=== PATIENT | female | born 1960 | race Caucasian/White ===

== ENCOUNTER 2019-04-09 12:19 | Outpatient (CLI) | payer MEDICARE, BC, SELFPAY ==
--- NOTE | ~2019-04-09 | XR_ITS ---
EXAMINATION: XR abdomen/kub 1V DATE: 04/09/2019 12:40 INDICATION: Gross hematuria. TECHNIQUE: A supine view of the abdomen on 2 radiographs was obtained. COMPARISON: CT abdomen and pelvis 04/09/2019 FINDINGS: There are no dilated loops of bowel. The kidneys are obscured by bowel. There is a 6 mm sto ne in right kidney. There is a 3 mm stone in left kidney. There are phleboliths in the pelvis and rig ht ovarian vein. IMPRESSION: 1. Bilateral kidney stones. Reviewed, dictated and finalized at location A. ER TENDER IMPRESSION: 1. Bilateral kidney stones.
--- NOTE | ~2019-04-09 | CT_ITS ---
EXAMINATION: CT abdomen pelvis wo/w con DATE: 04/09/2019 13:19 INDICATION: Gross hematuria. TECHNIQUE: Computed tomography (CT) of the abdomen and pelvis was performed without and with intraven ous contrast using a total of 130 mL Omnipaque-350 intravenous contrast with a double-bolus technique for simultaneous opacification of the renal parenchyma and renal collecting system. Automated exposu re control and iterative reconstruction technique were employed. The dose-length product was 1742.10 mGy-cm. COMPARISON: CT abdomen and pelvis 05/27/2018 FINDINGS: The visualized portions of the lung bases demonstrate mild atelectasis. A calcified right lung nodule is consistent with old granulomatous disease. No pleural effusion. The heart size is normal. No alesia cardial effusion. The liver, gallbladder, spleen, pancreas, and adrenal glands are normal. There are changes of gastric bypass procedure. There is a small sliding hiatal hernia. There are cysts in the k idneys measuring up to 8 mm on the left. There are 7 mm and 4 mm stones in right kidney. There are 3 stones in left kidney measuring up to 5 mm. The ureters are not well opacified distally, but are norm al. The bladder is not well distended. There are no dilated loops of bowel. The appendix is not visua lized. There are no pathologically enlarged lymph nodes. There is no free intraperitoneal fluid. Ther e is moderate lumbar spondylosis. There are bridging endplate osteophytes at multiple levels in the t horacic spine, consistent with diffuse idiopathic skeletal hyperostosis (DISH). IMPRESSION: 1. Bilateral nonobstructing kidney stones. Reviewed, dictated and finalized at location A. SOR TO COMMAND IN COMBAT
[2019-04-09 12:54] LABS: Estimated Glomerular Filt Rate > 60
== END 2019-04-09 12:20 | disposition home or self-care (01) ==
LOC: ANHIMG 12:28
PROVIDERS: PCP Internal Medicine; Visit Provider Urology
DX: R31.0 Gross hematuria (principal); N20.0 Calculus of kidney
CPT/HCPCS: 36415; 74018; 74178; Q9967

== ENCOUNTER 2019-04-22 10:51 | Outpatient (CLI) | payer MEDICARE, BC, SELFPAY ==
--- NOTE | ~2019-04-22 | XR_ITS ---
EXAMINATION: XR abdomen/kub 1V DATE: 04/22/2019 11:13 INDICATION: Right flank pain and hematuria. TECHNIQUE: A supine view of the abdomen on 2 radiographs was obtained. COMPARISON: CT and KUB dated 04/09/2019 FINDINGS: Unchanged phlebolith project along the inferior margin of the right transverse process of L4. Unchang ed pattern of multiple additional phleboliths in the pelvis. There is a new approximately 2 mm densit y in the region of the right ureterovesicular junction projecting between the 2 larger more cephalad and caudal phleboliths suspicious for a distal ureteral stone. Unchanged 6 mm stone projecting over t he upper pole of the right kidney. The previous noted 3 mm stone in the left kidney is unable to be d efinitively identified likely obscured by superimposed mottled pattern of stool and gas in the colon. Suture lines in the epigastric region and more caudal left upper quadrant consistent with likely makenzie or gastric bypass procedure. No dilated loops of gas-filled bowel to suggest obstruction. Lung bases are clear. Moderate lumbar spondylosis. IMPRESSION: 1. 2 mm density projecting the region of the right ureterovesicular junction which could represent a small stone. Specificity is decreased by superimposed stool in the rectum. 2. Unchanged 6 mm stone at the upper pole of the right kidney. Reviewed, dictated and finalized at location A. IMPRESSION: 1. 2 mm density projecting the region of the right ureterovesicular junction wh ich could represent a small stone. Specificity is decreased by superimposed sto ol in the rectum. 2. Unchanged 6 mm stone at the upper pole of the right kidney.
== END 2019-04-22 10:52 | disposition home or self-care (01) ==
LOC: ANHIMG 10:58
PROVIDERS: PCP Internal Medicine; Visit Provider Urology
DX: R10.9 Unspecified abdominal pain (principal); N20.0 Calculus of kidney
CPT/HCPCS: 74018

== ENCOUNTER 2019-04-24 10:41 | Day surgery (SDC) | payer MEDICARE, BC, SELFPAY ==
--- NOTE | ~2019-04-24 | XR_ITS ---
EXAMINATION: XR fluoroscopy no charge INDICATION: Right flank pain TECHNIQUE: A single fluoroscopic image is submitted for review. Fluoroscopy exposure time was 2.8 sec onds. The DAP for this procedure was 0.30196 mGycm2. COMPARISON: None available FINDINGS: Fluoroscopic image demonstrates a guidewire coiling in the right renal pelvis. Please refer to procedure note for full details. IMPRESSION: Please refer to procedure note for full details. Reviewed, dictated and finalized at location A.
[2019-04-24 11:00] VITALS: BP 116/64; PULSE 80; RESP 16; TEMP 36.4; O2SAT 96
--- NOTE | 2019-04-24 11:23 | ECG_ITS ---
Measurements Intervals [place] Rate: 66 P: 48 ID: [id number] QRS: 26 QRSD: 85 T: 50 QT: 385 QTc: 405 Interpretive Statements SINUS RHYTHM BASELINE ARTIFACT- III NORMAL ECG Electronically Signed On 04-24-2019 11:39:19 CDT by Fadi Ramos D.O.
[2019-04-24] MEDS: LACTATED RINGERS 1,000 ML 30 ML IV CONT (11:30)
[2019-04-24 11:40] VITALS: BMI 32.8
--- NOTE | 2019-04-24 11:48 | WPDANESEPPF ---
Anes - Initial Pre Proc Eval Procedure: Operation Date: 04/24/19 15:30 Proposed Procedures p Cystoscopy, Right Ureteroscopy, Right Retrograde Pyelogram, Right Stone Extraction, Possible Right Stent Placement - Pj Sepulveda MD s Possible Holmium Laser Procedure - Pj Sepulveda MD Date/Time: 04/24/19 11:48 Surgeon: Pj Sepulveda MD Pre Op Diagnosis: Right UVJ Stone Patient Data Age: 59 Gender: F Height: 5 ft 4 in Weight: 86.7 kg Last Vital Signs Temp 36.4 C L 04/24/19 11:00 Pulse 80 04/24/19 11:00 Resp 16 04/24/19 11:00 BP 116/64 04/24/19 11:00 Pulse Ox 96 04/24/19 11:00 Allergies Allergy/AdvReac Type Severity Reaction Status Date / Time codeine Allergy Severe Hives Verified 04/24/19 11:18 levofloxacin [From Levaquin] Allergy Intermediate Hives Verified 04/24/19 11:18 meperidine [From Demerol] Allergy Intermediate Hives Verified 04/24/19 11:18 Home Medications Medication Instructions Recorded Confirmed Type aspirin [Aspir-Low] 81 mg PO WEEKLY 04/24/19 04/24/19 History bupropion HCl 150 mg PO QAM 04/24/19 04/24/19 History folic acid 1 mg PO DAILY 04/24/19 04/24/19 History hydrocodone-acetaminophen 1 tablet PO Q4-6H PRN 04/24/19 04/24/19 History levothyroxine 88 mcg PO DAILY 04/24/19 04/24/19 History losartan 100 mg PO HS 04/24/19 04/24/19 History pdfspkwivkwd-una-czzw-FA-vit K 1 cap PO HS 04/24/19 04/24/19 History [Bariatric Multivitamins] pravastatin 80 mg PO HS 04/24/19 04/24/19 History sertraline 200 mg PO DAILY 04/24/19 04/24/19 History tizanidine 4 mg PO HS 04/24/19 04/24/19 History vitamin E 400 unit PO DAILY 04/24/19 04/24/19 History zolpidem 10 mg PO HS 04/24/19 04/24/19 History Patient hx anesthesia problems: none Family hx anesthesia problems: none PMFSH Past Medical History Medical History (Updated 04/24/19 @ 11:51 by Benny Agee MD) Chronic lung disease Chronic pain syndrome Hyperlipidemia Family History Family History Sibling Family history of rheumatoid arthritis Mother Family history of lung cancer Social History Social History Smoking status: Never smoker Alcohol intake: never Anes - Eval Final PreProcedure Day of Procedure 04/24/19 11:48 Patient weight: obese Heart: regular rate and rhythm Lungs: decreased breath sounds Airway: Mallampati scale class II Neurological: alert and oriented Last oral intake: 4 hours ASA classification: III Emergent: yes Anesthetic plan: proceed Anesthesia type and monitoring: general ETT and standard monitoring Other findings: RSI Informed Consent: The patient's anesthetic plan and its attendant risks and benefits were discussed with the patient/family/POA. Questions were solicited and answers provided to the satisfaction of the patient/family/POA.
[2019-04-24] MEDS: HYDROMORPHONE HCL 1 MG/ML INJ IV PUSH (11:55)
--- NOTE | 2019-04-24 12:57 | SUR.PREOP ---
Resting with lights out. Pain much improved.
--- NOTE | 2019-04-24 13:12 | WPDHPUPDATE1 ---
History and Physical Update Update Date/Time: 04/24/19 13:12 History and Physical has been reviewed, including an updated exam of the patient. There are NO changes in the patient's condition. Risks, benefits, and alternatives have been discussed and questions answered. Patient agrees to proceed with procedure.
[2019-04-24] MEDS: ceFAZolin 2 GM/D5W 50 ML 2 GM/50 ML BAG IVPB (13:25)
[2019-04-24] MEDS: KETOROLAC 30 MG/ML VIAL (*BKC) IV PUSH (13:50)
--- NOTE | 2019-04-24 13:54 | PM.PROC ---
Procedure Note - Detailed Date of procedure: 04/24/19 Pre-op diagnosis: Right UVJ Stone Post-op diagnosis: same Procedure performed: Cystoscopy, right ureteroscopy with stone extraction. Description of procedure: The patient was brought to the operative suite where she is prepped and draped in a routine sterile fashion while in the dorsal lithotomy position after the uneventful induction of a general LMA anesthetic. A 19F rigid cystoscope was placed in the bladder. The patient had no evidence of urethral stricture or bladder neck contracture. The bladder mucosa was endoscopically normal without hyperemia or neoplasm. There was a single, orthotopic ureteral orifice bilaterally. A 0.035 glidewire was advanced into the [] renal pelvis under fluoroscopy. The distal ureter was dilated with an 8F/10F ureteral dilator. Ureteroscopy was undertaken with a short, tapered, semi-rigid ureteroscope and the stone was extracted with ease using a [1.9F Escape disposable stone basket]. Due to the ease of this manipulation I opted not to place a ureteral stent. The patient's bladder was emptied and was taken to the recovery room having tolerated this procedure well. Anesthesia: GLMA Surgeon: Pj Sepulveda MD Estimated blood loss (mL): 0 Drains: No Packing: No Pathology: yes (Right ureteral stone) Complications: No immediate complications Condition: stable Disposition: PACU
[2019-04-24 14:05] VITALS: BP 120/55; PULSE 88; RESP 14; TEMP 36.1; O2SAT 100
[2019-04-24 14:19] VITALS: BP 128/73; PULSE 83; RESP 20; O2SAT 100
[2019-04-24 14:27] VITALS: BP 132/51; PULSE 75; RESP 20
[2019-04-24 14:55] VITALS: BP 117/62; PULSE 68; RESP 16
== END 2019-04-24 15:05 | disposition home or self-care (01) ==
PROVIDERS: PCP Internal Medicine; Visit Provider Urology
PROC: (CPT 52352; principal; 2019-04-24 15:30)
DX: N20.1 Calculus of ureter (principal); E78.5 Hyperlipidemia, unspecified; J98.4 Other disorders of lung; G89.4 Chronic pain syndrome; Z79.82 Long term (current) use of aspirin; E66.9 Obesity, unspecified; Z68.32 Body mass index [BMI] 32.0-32.9, adult; Z79.891 Long term (current) use of opiate analgesic
CPT/HCPCS: 52352; 82365; 88300; 93005; A9270; C1769; J0690; J1100; J1170; J1885; J2250; J2405; J2704; J3010; J7120

== ENCOUNTER 2019-06-06 10:59 | Outpatient (CLI) | payer MEDICARE, BC, SELFPAY ==
--- NOTE | ~2019-06-06 | XR_ITS ---
EXAMINATION: XR abdomen/kub 1V DATE: 06/06/2019 11:37 INDICATION: Flank pain. TECHNIQUE: A supine view of the abdomen on 2 radiographs was obtained. COMPARISON: None. FINDINGS: Unchanged phleboliths projecting over the right transverse process of L4. A few additional small dens ities projecting lateral to the tip of the right transverse process of L5 likely either additional ph leboliths or tiny surgical clips related to prior appendectomy. Multiple additional unchanged phlebol iths in the pelvis. Evaluation for renal stones at the kidneys is limited by superimposed mottled gas and stool in the colon. There are couple 3 mm densities projecting over the region of the right crow l pelvis is equivocal for renal stones. Additional 2 mm and 3 mm stones project over the mid and uppe r pole of the left kidney corresponding to renal stones on prior CT. The 2 mm stone previously seen a t the lower pole of the left kidney is not definitively identified and may be obscured by the superim posed anastomotic suture line. No dilated bowel to suggest obstruction. IMPRESSION: 1. Densities at both kidneys as detailed above likely representing renal stones although sensitivity and specificity are reduced by superimposed mottled pattern of stool in the colon. Reviewed, dictated and finalized at location A. IMPRESSION: 1. Densities at both kidneys as detailed above likely representing renal stones although sensitivity and specificity are reduced by superimposed mottled patte rn of stool in the colon.
== END 2019-06-06 11:00 | disposition home or self-care (01) ==
PROVIDERS: PCP Internal Medicine; Visit Provider Nurse Practitioner Adult Health
DX: R10.9 Unspecified abdominal pain (principal); R93.422 Abnormal radiologic findings on diagnostic imaging of left kidney; R93.421 Abnormal radiologic findings on diagnostic imaging of right kidney
CPT/HCPCS: 74018; 87086; 87088

== ENCOUNTER 2019-06-20 16:28 | Outpatient (CLI) | payer MEDICARE, BC, SELFPAY ==
--- NOTE | ~2019-06-20 | XR_ITS ---
EXAMINATION: XR abdomen/kub 1V INDICATION: Left flank pain, bilateral kidney stones TECHNIQUE: Supine views of the abdomen were obtained on 2 radiographs. COMPARISON: CT from today, 06/06/2019 FINDINGS: A subtle 6 mm calcification projects just above the left L3 transverse process correspondin g to the proximal ureteral stone seen on CT. An 8 mm stone is noted in the right kidney. There are ph leboliths of the pelvis. The lung bases are clear. Changes of gastric bypass are noted. There is mild posterior arthritis. The bowel gas pattern is normal. IMPRESSION: 1. Subtle 6 mm stone projecting just above the left L3 transverse process corresponding to the left u reteral stone identified on CT. Reviewed, dictated and finalized at location A. IMPRESSION: 1. Subtle 6 mm stone projecting just above the left L3 transverse process corre sponding to the left ureteral stone identified on CT.
--- NOTE | ~2019-06-20 | CT_ITS ---
EXAMINATION: CT abdomen pelvis wo con DATE: 06/20/2019 17:11 INDICATION: Hematuria, and history of kidney stones TECHNIQUE: Computed tomography (CT) of the abdomen and pelvis was performed without intravenous contr ast. The dose-length product (DLP) was 260.96 mGy-cm. Automated exposure control and iterative recons truction technique were employed. COMPARISON: 04/09/2019 FINDINGS: The lung bases are clear. The heart size is normal. Changes of gastric bypass are noted. Th e liver, spleen, pancreas, gallbladder, and adrenal glands are normal. There is a 6 mm stone in the l eft proximal ureter which causes mild left hydroureteronephrosis. Nonobstructing stones of the kidney s measure up to 8 mm on the right and 4 mm on the left. No pathologically enlarged abdominal or pelvi c lymph nodes are identified. There is no free intraperitoneal gas or evidence of bowel obstruction. There is moderate lumbar spondylosis. IMPRESSION: 1. 6 mm stone in the left proximal ureter causing mild left hydroureteronephrosis. 2. Bilateral nonobstructing nephrolithiasis. Reviewed, dictated and finalized at location A. IMPRESSION: 1. 6 mm stone in the left proximal ureter causing mild left hydroureteronephros is. 2. Bilateral nonobstructing nephrolithiasis.
== END 2019-06-20 16:29 | disposition home or self-care (01) ==
PROVIDERS: PCP Internal Medicine; Visit Provider Urology
DX: N13.2 Hydronephrosis with renal and ureteral calculous obstruction (principal)
CPT/HCPCS: 74018; 74176

== ENCOUNTER 2019-07-08 10:27 | Outpatient (CLI) | payer MEDICARE, BC, SELFPAY ==
--- NOTE | ~2019-07-08 | XR_ITS ---
XR abdomen/kub 1V 07/08/2019 10:48 Indication: Bilateral kidney stones Procedure: KUB Comparison: Comparison to multiple prior studies sequentially, with oldest reviewed study dated 05/2019. Findings: There are bilateral renal stones. There are surgical changes in the left upper abdomen cons istent with gastric bypass surgery. There are pelvic phleboliths. There are injection granulomas over lying the right gluteal region. Bowel gas pattern is nonobstructive. No acute osseous abnormality. Impression: 1: Bilateral nephrolithiasis. Reviewed, dictated and finalized at location A. Impression: 1: Bilateral nephrolithiasis.
== END 2019-07-08 10:28 | disposition home or self-care (01) ==
PROVIDERS: PCP Internal Medicine; Visit Provider Urology
DX: N20.0 Calculus of kidney (principal)
CPT/HCPCS: 74018

== ENCOUNTER 2019-12-30 14:00 | Outpatient (CLI) | payer MEDICARE, BC, SELFPAY ==
--- NOTE | ~2019-12-30 | XR_ITS ---
XR abdomen/kub 1V 12/30/2019 14:26 Indication: Right flank pain Procedure: KUB Comparison: CT dated 12/30/2019 Findings: Bowel gas pattern is nonobstructive. There are right renal stones. There are surgical moulton es in the left mid abdomen. Bowel content and postsurgical changes obscure the left kidney limiting e valuation for left renal stones. There is a stable right-sided abdominal phlebolith at the L4 level. There are pelvic phleboliths. Bowel pattern nonobstructive with moderate colonic fecal loading. Impression: 1: Right nephrolithiasis. Reviewed, dictated and finalized at location A. DOZER ENGINEER Impression: 1: Right nephrolithiasis.
--- NOTE | ~2019-12-30 | CT_ITS ---
EXAMINATION: CT abdomen pelvis wo con DATE: 12/30/2019 14:29 INDICATION: Right flank pain. TECHNIQUE: Computed tomography (CT) of the abdomen and pelvis was performed without intravenous contr ast. Automated exposure control and iterative reconstruction technique were employed. The dose-length product was 222.35 mGy-cm. COMPARISON: CT abdomen and pelvis 06/20/2019 FINDINGS: The visualized portions of the lung bases demonstrate minimal atelectasis. No pleural effus ion. The heart size is normal. No pericardial effusion. There are surgical changes of the stomach. Th e liver, gallbladder, spleen, pancreas, and adrenal glands are normal. There are 5 stones in right ki dney measuring up to 8 mm. There are 3 stones in left kidney measuring up to 6 mm. There are phleboli ths in right ovarian vein. There are no dilated loops of bowel. There are likely changes of appendect luba. There are no pathologically enlarged lymph nodes. There is no free intraperitoneal fluid. There is moderate lumbar spondylosis. IMPRESSION: 1. Bilateral nonobstructing kidney stones. Reviewed, dictated and finalized at location A. DDED SYSTEMS DEVELOPER
== END 2019-12-30 14:01 | disposition home or self-care (01) ==
PROVIDERS: PCP Internal Medicine; Visit Provider Nurse Practitioner Adult Health
DX: R10.9 Unspecified abdominal pain (principal); N20.0 Calculus of kidney; M47.816 Spondylosis without myelopathy or radiculopathy, lumbar region
CPT/HCPCS: 74018; 74176

== ENCOUNTER 2020-01-06 01:57 | Outpatient (CLI) | payer MEDICARE, BC, SELFPAY ==
[2020-01-06 19:16] LABS: SARS-CoV-2 RNA PCR Negative
== END 2020-01-06 01:58 | disposition home or self-care (01) ==
LOC: ANHCOVIDDT 01:58
PROVIDERS: PCP Internal Medicine; Visit Provider Urology
DX: Z01.812 Encounter for preprocedural laboratory examination (principal); Z20.828 Contact with and (suspected) exposure to other viral communicable diseases
CPT/HCPCS: 87635; C9803; U0003

== ENCOUNTER 2020-01-06 09:39 | Outpatient (CLI) | payer MEDICARE, BC, SELFPAY ==
[2020-01-06 10:21] LABS: INR 0.9; Prothrombin Time 12.7 Seconds (11.1-14.7)
[2020-01-06 10:22] LABS: Partial Thromboplastin Time 25.4 SECONDS (22.3-36.8)
== END 2020-01-06 09:40 | disposition home or self-care (01) ==
PROVIDERS: PCP Internal Medicine; Visit Provider Urology
DX: Z01.812 Encounter for preprocedural laboratory examination (principal); N20.0 Calculus of kidney; Z51.81 Encounter for therapeutic drug level monitoring; Z79.899 Other long term (current) drug therapy
CPT/HCPCS: 36415; 85610; 85730; 87086; 87635; C9803; U0003

== ENCOUNTER 2020-01-09 01:24 | Day surgery (SDC) | payer MEDICARE, BC, SELFPAY ==
[2020-01-06 08:56] VITALS: BMI 29.9
[2020-01-09] VITALS (8 sets, daily range): BP systolic 124–159; BP diastolic 52–97; PULSE 62–66; RESP 10–20; TEMP 36.3–36.8; O2SAT 96–100
--- NOTE | ~2020-01-09 | XR_ITS ---
XR abdomen/kub 1V 01/09/2020 08:05 Indication: Preop lithotripsy Procedure: KUB Comparison: Comparison to multiple prior studies sequentially, with oldest reviewed study dated 02/2019. Findings: There are bilateral renal stones. There are pelvic phleboliths which are unchanged. Moderat e lumbar spondylosis. No acute osseous abnormality. The bowel gas pattern is nonobstructive. There ar e calcifications in the right abdomen corresponding to phleboliths in the right ovarian vein seen on prior CT. Impression: 1: Bilateral nephrolithiasis. Reviewed, dictated and finalized at location B. ERY/ORDNANCE OFFICER Impression: 1: Bilateral nephrolithiasis.
--- NOTE | 2020-01-09 06:38 | WPDHPUPDATE1 ---
History and Physical Update Update Date/Time: 01/09/20 06:38 History and Physical has been reviewed, including an updated exam of the patient. There are NO changes in the patient's condition. Risks, benefits, and alternatives have been discussed and questions answered. Patient agrees to proceed with procedure.
[2020-01-09] MEDS: LACTATED RINGERS 1,000 ML 30 ML IV CONT (09:30)
--- NOTE | 2020-01-09 09:42 | P.PNAN_ITS ---
Anes - Initial Pre Proc Eval Procedure: Operation Date: 01/09/20 10:00 Proposed Procedures p Right Renal Extracorporeal Shock Wave Lithotripsy - Pj Sepulveda MD Date/Time: 01/09/20 09:42 Surgeon: Pj Sepulveda MD Pre Op Diagnosis: Right Renal Kidney Stone Patient Data Age: 59 Gender: F Height: 5 ft 4 in Weight: 82.1 kg Last Vital Signs Temp 36.3 C L 01/09/20 09:17 Pulse 64 01/09/20 09:17 Resp 20 01/09/20 09:17 BP 127/52 L 01/09/20 09:17 Pulse Ox 96 01/09/20 09:17 Allergies Allergy/AdvReac Type Severity Reaction Status Date / Time meperidine [From Demerol] Allergy Severe Hives Verified 01/09/20 09:11 levofloxacin [From Levaquin] AdvReac Intermediate INFLAMED Verified 01/09/20 09:11 TENDONS Home Medications Medication Instructions Recorded Confirmed Type Bariatric Multivitamins 1 cap PO HS 04/24/19 01/09/20 History aspirin [Aspir-Low] 81 mg PO WEEKLY 04/24/19 01/09/20 History bupropion HCl 150 mg PO BID 04/24/19 01/09/20 History folic acid 1 mg PO DAILY 04/24/19 01/09/20 History hydrocodone-acetaminophen 1 tablet PO Q4-6H PRN 04/24/19 01/09/20 History levothyroxine 88 mcg PO QAM 04/24/19 01/09/20 History pravastatin 80 mg PO HS 04/24/19 01/09/20 History sertraline 200 mg PO QAM 04/24/19 01/09/20 History tizanidine 4 mg PO HS 04/24/19 01/09/20 History vitamin E 400 unit PO DAILY 04/24/19 01/09/20 History zolpidem 10 mg PO HS 04/24/19 01/09/20 History Ventolin HFA 2 puff INHALATION Q4-6H PRN 01/06/20 01/09/20 History omeprazole 20 mg PO HS 01/06/20 01/09/20 History Patient hx anesthesia problems: none Family hx anesthesia problems: none PMFSH Past Medical History Medical History Anxiety Asthma Chronic lung disease Chronic pain syndrome CVA (cerebral vascular accident) Fibromyalgia Hyperlipidemia Hypothyroid Family History Family History Sibling Family history of rheumatoid arthritis Mother Family history of lung cancer Social History Social History Smoking status: Former smoker Alcohol intake: never Substance use: never Living arrangements: with family Additional living arrangements comments: Spiritual care concerns: No Anes - Eval Final PreProcedure Day of Procedure 01/09/20 09:42 Patient weight: obese Heart: regular rate and rhythm Lungs: clear to auscultation Airway: Mallampati scale class II, special considerations and other (temp bridg e) Neurological: alert and oriented Last oral intake: >/= 8 hours ASA classification: III Emergent: no Anesthetic plan: proceed Anesthesia type and monitoring: general LMA and standard monitoring Informed Consent: The patient's anesthetic plan and its attendant risks and benefits were discussed with the patient/family/POA. Questions were solicited and answers provided to the satisfaction of the patient/family/POA.
[2020-01-09] MEDS: ceFAZolin 2 GM/D5W 50 ML 2 GM/50 ML BAG IVPB (09:47)
--- NOTE | 2020-01-09 10:01 | PM.PROC ---
Procedure Note - Detailed Date of procedure: 01/09/20 Pre-op diagnosis: Right Renal Kidney Stone Post-op diagnosis: same Procedure performed: Right ESWL Description of procedure: The patient was brought to the operative suite where she was placed in the supine position on the Dornier lithotripsy table. The focal point of the lithotripter was placed at a 8mm right renal calculus. A total of 2500 shocks were delivered at a power setting of 4. There appeared to be good fragmentation of the stone. The patient tolerated the procedure well and was taken to the recovery room in good condition. Anesthesia: GLMA Surgeon: Pj Sepulveda MD Estimated blood loss (mL): 0 Drains: No Packing: No Pathology: none sent Complications: No immediate complications Condition: stable Disposition: PACU
[2020-01-09] MEDS: ONDANSETRON INJ 4 MG/2 ML VIAL IV PUSH (10:52)
[2020-01-09] MEDS: HYDROmorphone HCL INJ (*CRX) 1 MG/ML SYR 0.5 MG IV PUSH ×2 (11:00→11:08)
== END 2020-01-09 12:17 | disposition home or self-care (01) ==
PROVIDERS: PCP Internal Medicine; Visit Provider Urology
PROC: (CPT 50590; principal; 2020-01-09 10:00)
DX: N20.0 Calculus of kidney (principal); E78.5 Hyperlipidemia, unspecified; E03.9 Hypothyroidism, unspecified; J45.909 Unspecified asthma, uncomplicated; F41.9 Anxiety disorder, unspecified; M79.7 Fibromyalgia; G89.4 Chronic pain syndrome; E66.9 Obesity, unspecified; Z68.31 Body mass index [BMI] 31.0-31.9, adult
CPT/HCPCS: 50590; 74018; J0690; J1100; J1170; J2250; J2405; J2704; J7120

== ENCOUNTER 2020-01-23 13:05 | Outpatient (CLI) | payer MEDICARE, BC, SELFPAY ==
--- NOTE | ~2020-01-23 | XR_ITS ---
XR abdomen/kub 1V 01/23/2020 13:28 INDICATION: Right flank pain TECHNIQUE: KUB COMPARISON: 07/08/2019 FINDINGS: Bowel gas pattern is normal. There is no evidence of free air, mass, organomegaly, ascites or obstruction. No abnormal calculi are seen. There are surgical changes in the left abdomen. The b ones appear intact. There is mild lumbar spondylosis. There are pelvic phleboliths. Kidneys are obscu red by bowel gas/contents limiting evaluation for renal stones. IMPRESSION: 1: No acute abdominal abnormality identified. Reviewed, dictated and finalized at location A. EF PILOT
== END 2020-01-23 13:06 | disposition home or self-care (01) ==
PROVIDERS: PCP Internal Medicine; Visit Provider Nurse Practitioner Adult Health
DX: R10.9 Unspecified abdominal pain (principal)
CPT/HCPCS: 74018

== ENCOUNTER 2020-06-18 14:57 | Outpatient (CLI) | payer MEDICARE, BC, SELFPAY ==
--- NOTE | ~2020-06-18 | XR_ITS ---
EXAMINATION: XR abdomen/kub 1V DATE: 06/18/2020 15:20 INDICATION: Right flank pain. TECHNIQUE: A supine view of the abdomen on 2 radiographs was obtained. COMPARISON: CT abdomen and pelvis 06/18/2020 FINDINGS: The kidneys are obscured by bowel. There are phleboliths in the pelvis and right ovarian ve in. There are multiple stones in right kidney measuring up to 3 mm. There is a 4 mm stone in left kid serge lower pole. There is a 10 mm stone in left renal pelvis. IMPRESSION: 1. Stones in the kidneys and left renal pelvis. Reviewed, dictated and finalized at location B.
--- NOTE | ~2020-06-18 | CT_ITS ---
EXAMINATION: CT abdomen pelvis wo con DATE: 06/18/2020 15:25 INDICATION: Right flank pain for 2 weeks. Nausea and vomiting, hematuria. TECHNIQUE: Computed tomography (CT) of the abdomen and pelvis was performed without intravenous contr ast. Automated exposure control and iterative reconstruction technique were employed. Exam dose: 240 .42 mGy-cm total exam DLP. COMPARISON: 12/30/2019 CT abdomen pelvis FINDINGS: The lung bases are clear of infiltrate or consolidation. Normal heart size. No pericardial or pleural effusion. Small sliding hiatal hernia. Status post gastric bypass surgery. No hepatic, splenic, pancreatic, and adrenal or renal space-occupying mass lesion is evident on this limited noncontrast examination. At least 7 nonobstructing right and 2 left nonobstructing renal calculi are noted. The right renal ca lculi measuring up to at least 5.7 mm maximal dimension, up to 8 mm on the left. Additionally, there is a left renal pelvic calculus measuring at least 5 x 7.5 x 10.5 mm dimension, w ith attenuation of 939 Hounsfield units. No ureteral calculus or hydroureteronephrosis is evident on either side. Normal caliber of the abdominal aorta. The urinary bladder is unremarkable. Status post hysterectomy. No bowel obstruction, bowel wall thickening, pneumatosis or intraperitoneal free air is detected. Mil d colonic diverticulosis; no CT evidence of diverticulitis. Diffuse idiopathic skeletal hyperostosis of the thoracic spine. Degenerative changes of the lumbar sp ine. No suspicious osteolytic or osteoblastic lesions are noted. IMPRESSION: Up to 10.5 mm left renal pelvic calculus Bilateral nonobstructive nephrolithiasis Small sliding hiatal hernia Status post gastric bypass surgery Mild colonic diverticulosis Status post hysterectomy Reviewed, dictated and finalized at Location A. Reviewed, dictated and finalized at location A.
== END 2020-06-18 14:58 | disposition home or self-care (01) ==
LOC: ANHIMG 15:01
PROVIDERS: PCP Internal Medicine; Visit Provider Urology
DX: R10.9 Unspecified abdominal pain (principal); N20.0 Calculus of kidney; K44.9 Diaphragmatic hernia without obstruction or gangrene; K57.30 Diverticulosis of large intestine without perforation or abscess without bleeding
CPT/HCPCS: 74018; 74176

== ENCOUNTER 2020-06-29 21:20 | Observation (INO) | payer MEDICARE, BC, SELFPAY ==
--- NOTE | ~2020-06-29 | CT_ITS ---
EXAMINATION: CT abdomen pelvis wo con DATE: 06/29/2020 22:51 INDICATION: Left flank pain TECHNIQUE: Computed tomography (CT) of the abdomen and pelvis was performed without intravenous contr ast. The dose-length product was 349.16 mGy-cm. Automated exposure control and iterative reconstructi on technique were employed. COMPARISON: CT dated 06/18/2020 FINDINGS: lung bases are unremarkable. Heart size normal. No pleural or pericardial effusion. Surgica l changes of gastric bypass surgery are present. There are additional surgical anastomotic changes in the left mid abdomen. There is a relatively linear structure in the anterior abdominal wall measurin g 2.2 x 0.7 cm,? Foreign body, image 99. Nonobstructive bowel gas pattern. 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 No definite ureteral stones are identified . The bladder is decompressed. There are multiple bilateral renal stones. There is a proximal left re nal stone/sr measuring 7 mm. Mild hydronephrosis. Moderate lumbar spondylosis. Gallbladder is moderat oumou distended. No significant pericholecystic infiltration. The liver, spleen, pancreas, adrenal glands are unremarkable. IMPRESSION: 1. Proximal left ureteral stone/s measuring 7 mm with mild hydronephrosis. 2: Bilateral nephrolithiasis. Reviewed, dictated and finalized at location A.
--- NOTE | ~2020-06-29 | XR_ITS ---
XR abdomen/kub 1V 06/29/2020 22:55 Indication: Left flank pain Procedure: KUB Comparison: CT dated 06/29/2020 Findings: Proximal left ureteral stone is identified at the L3 level. There are extensive surgical ch anges of the abdomen. Nonobstructive bowel gas pattern. Moderate colonic fecal loading. Moderate lumb ar spondylosis. No acute osseous abnormality. Multiple right renal stones are identified. Left renal stones are obscured by bowel content. Impression: 1: Proximal left ureteral stone at the L3 level. 2: Right nephrolithiasis. Reviewed, dictated and finalized at location A. Impression: 1: Proximal left ureteral stone at the L3 level. 2: Right nephrolithiasis.
--- NOTE | ~2020-06-29 | XR_ITS ---
EXAMINATION: XR retrograde pyelo w/stent LT DATE: 06/30/2020 10:44 INDICATION: Left ureteral stone with hydronephrosis for ureteral stent placement TECHNIQUE: 6 fluoroscopic images of the abdomen and pelvis were obtained during procedure performed vera Pulido. Radiologist was not present for the imaging or procedure. The amount of fluoroscopy t mi used during this procedure was 0.7 minutes. COMPARISON: CT and KUB dated 06/29/2020 FINDINGS: The proximal left ureteral stone can be seen in the supervisor cook room images. Several phleboliths in the pelvis. Subsequent images demonstrate a catheter advanced into the left ureter and retrograde contrast passed location of the left renal collecting system demonstrating mild left hydronephrosis. Subsequent imag es demonstrate placement of a left internal ureteral stent with loops formed over the left renal pelv is and bladder. On the final image the proximal left ureteral stone appears to remain along side the catheter in the proximal left ureter superimposed over the tip of the left transverse process of L2. IMPRESSION: 1. Stone in the proximal left ureter with mild left hydronephrosis. 2. Left internal ureteral stent placement in expected position. Reviewed, dictated and finalized at location A.
[2020-06-29 21:29] VITALS: BP 154/76; PULSE 99; RESP 16; TEMP 37.1; O2SAT 99
--- NOTE | 2020-06-29 22:46 | ED.ABDPAIN ---
HPI - Abdominal Pain General Chief Complaint: Abdominal Pain Stated Complaint: i have a kidney stone Time Seen by Provider: 06/29/20 22:26 Source: patient, RN notes reviewed and old records reviewed Mode of arrival: ambulatory Limitations: no limitations History of Present Illness HPI narrative: This is a 60 year old female with history of kidney stones who presents for evaluation of left flank pain. She states 2 weeks ago she developed hematuria, and she was evaluated by her urologist, Dr. Sepulveda. He ordered a CT abdomen/Pelvis which showed bilateral kidney stones, and she had a large left renal stone at that time. She is scheduled for a lithotripsy on July 09. She has come to ER today because she developed left flank 3 hours ago with nausea . She also reports urethral pain and left lower abdominal pressure. She denies fever or chills. She states she was given antibiotics 2 weeks ago but she finished taking them. She also states she was told that her last urine test had no infection. Her pain is 8/10. She took hydrocodone at onset of her pain. Related Data Home Medications Medication Instructions Recorded Confirmed Bariatric Multivitamins 1 cap PO HS 04/24/19 06/24/20 aspirin [Aspir-Low] 81 mg PO WEEKLY 04/24/19 06/24/20 bupropion HCl 150 mg PO BID 04/24/19 06/24/20 hydrocodone-acetaminophen 1 tablet PO Q4-6H PRN 04/24/19 06/24/20 levothyroxine 88 mcg PO QAM 04/24/19 06/24/20 pravastatin 80 mg PO HS 04/24/19 06/24/20 sertraline 100 mg PO BID 04/24/19 06/24/20 tizanidine 4 mg PO HS 04/24/19 06/24/20 zolpidem 10 mg PO HS 04/24/19 06/24/20 Ventolin HFA 2 puff INHALATION Q4-6H PRN 01/06/20 06/24/20 omeprazole 20 mg PO HS 01/06/20 06/24/20 Allergies Allergy/AdvReac Type Severity Reaction Status Date / Time meperidine [From Demerol] Allergy Severe Hives Verified 06/24/20 13:58 levofloxacin [From Levaquin] AdvReac Intermediate INFLAMED Verified 06/24/20 13:58 TENDONS adhesive tape AdvReac Blister Verified 06/24/20 13:58 codeine AdvReac Hives Verified 06/24/20 14:00 gabapentin AdvReac CAUSED Verified 06/24/20 14:00 HAIR TO FALL OUT pregabalin [From Lyrica] AdvReac Swelling - Verified 06/24/20 14:00 HANDS & FEET Review of Systems Review of Systems: All systems reviewed & are unremarkable except as noted in HPI and below PMFSH Past Medical History Medical History (Updated 06/30/20 @ 00:17 by Lauren Cha MD) Anxiety Asthma Chronic lung disease Chronic pain syndrome CVA (cerebral vascular accident) Fibromyalgia Hyperlipidemia Hypothyroid Kidney stones Surgical History Surgical History (Updated 06/29/20 @ 22:53 by Lauren Cha MD) H/O lithotripsy Family History Family History Sibling Family history of rheumatoid arthritis Mother Family history of lung cancer Social History Social History Smoking status: Never smoker Second hand tobacco smoke exposure: No Alcohol intake: never Substance use: never Substance use type: does not use Additional living arrangements comments: Spiritual care concerns: No Exam Const: General: no acute distress and alert Orientation/consciousness: patient oriented x3 Eyes: EOM: EOMs intact bilaterally Resp: Effort & Inspection: normal respiratory effort and no retractions Auscultation: clear to auscultation bilaterally GI: GI Palp: Yes Soft to palpation, No Tenderness to palpation present (GI) and No Guarding due to palpation present (GI) Auscultation: normal bowel sounds : General: Yes CVA tenderness on the left Skin: General skin exam: normal color Rashes: no rashes Neuro: General: patient oriented x3, moves all extremities and CN's II-XI intact bilaterally Gait exam (Neuro): Normal gait present Psych: Mental Status: mental status grossly normal Affect: normal affect
--- NOTE | 2020-06-29 22:53 | PC.NURSE ---
Pt in imaging at this time.
--- NOTE | 2020-06-29 23:09 | PC.NURSE ---
2 IV start attempts unsuccessful, another RN to attempt.
[2020-06-29 23:10] VITALS: BP 161/71; PULSE 70; RESP 14; O2SAT 97
--- NOTE | 2020-06-29 23:23 | PC.NURSE ---
assumed care of pt at this time. Report from Ashlee RN
[2020-06-29 23:24] LABS: Add Urine Microscopic? YES; Appearance Urine Cloudy (Clear); Bilirubin Urine Negative (Negative); Blood Urine 3+ (Negative); Calcium Oxalate Crystals Urine Many /hpf; Color Urine Red (Yellow); Glucose Urine UA Negative (Negative); Ketones Urine Negative (Negative); Leukocyte Esterase Ur Negative LEU/UL (Negative); Nitrate Urine Negative (Negative); Protein Urine 2+ mg/dL (Negative); RBC Urine >75 /hpf (0-2); Specific Grav Ur 1.024 (1.001-1.035); Squamous Epithelial Cell Urine Occasional /hpf (Few); Urobilinogen Urine Negative mg/dL (<2.0)
--- NOTE | 2020-06-29 23:24 | PC.NURSE ---
assumed care of pt. Report from Summer RN
[2020-06-29 23:39] LABS: Basophils Percent Auto 0.2 % (0.2-1.2); Eosinophils Percent Auto 0.3 % (0-4.4); Hematocrit 38.8 % (37.0-47.0); Hemoglobin 13.2 g/dL (12.0-15.0); Immature Granulocyte Absolute 0.03 K/mm3 (0.00-0.031); Immature Granulocyte Percent A 0.3 % (0-0.5); Lymphocytes Absolute Auto 0.92 K/mm3 (0.9-3.2); Lymphocytes Percent Auto 10.5 % (18.3-44.2); Mean Corpuscular Hemoglobin 35.2 pg (26-34); Mean Corpuscular Volume 103.5 fl (80-100); Mean Platelet Volume 9.6 fl (7.4-10.4); Monocytes Absolute Auto 0.5 K/mm3 (0.1-0.6); Monocytes Percent Auto 5.1 % (2.6-8.5); Neutrophils Absolute Auto 7.3 K/mm3 (1.3-6.7); Neutrophils Percent Auto 83.6 % (45.5-73.1); Platelet Count Result 147 k/mm3 (150-375); Red Blood Count 3.75 M/mm3 (4.2-5.4); Red Cell Distribution Width 11.3 % (11.5-14.5); White Blood Count 8.8 K/mm3 (4.5-10.0)
[2020-06-29] MEDS: ONDANSETRON INJ 4 MG/2 ML VIAL IV PUSH (23:44)
[2020-06-29] MEDS: HYDROmorphone HCL INJ (*CRX) 1 MG/ML SYR 0.5 MG IV PUSH (23:45)
[2020-06-29 23:48] VITALS: BP 152/67; PULSE 73; RESP 13; O2SAT 96
[2020-06-29 23:53] LABS: Alanine Aminotransferase 62 U/L (4-35); Albumin Level 4.2 g/dL (3.5-5.1); Alkaline Phosphatase 143 U/L (38-126); Anion Gap 6 mmol/L (8-16); Aspartate Amino Transferase 60 U/L (14-36); Bilirubin,Total 0.4 mg/dL (0.2-1.3); Blood Urea Nitrogen 25 mg/dL (7-17); Calcium 9.5 mg/dL (8.4-10.2); Carbon Dioxide 29 mmol/L (22-30); Chloride 106 mmol/L (98-107); Estimated CRCL calculation 74 ml/min; Estimated Glomerular Filt Rate > 60; Glucose 122 mg/dL (65-105); Lipase 97 U/L (23-300); Potassium 4.1 mmol/L (3.4-5.0); Sodium 141 mmol/L (137-145)
[2020-06-30] VITALS (11 sets, daily range): BP systolic 132–161; BP diastolic 60–78; PULSE 57–72; RESP 11–20; TEMP 36.2–37; O2SAT 94–100; BMI 29.8
[2020-06-30 00:38] LABS: INR 0.9; Prothrombin Time 12.8 Seconds (11.1-14.7)
[2020-06-30 00:39] LABS: Partial Thromboplastin Time 25.8 SECONDS (22.3-36.8)
[2020-06-30] MEDS: HYDROmorphone HCL INJ (*CRX) 1 MG/ML SYR 0.5 MG IV PUSH ×2 (01:26→04:16)
[2020-06-30] MEDS: SODIUM CHLORIDE 0.9% IV 1,000 ML 125 ML IV CONT (02:12)
--- NOTE | 2020-06-30 02:29 | PC.NURSE ---
This patient, Tiffanie Ruiz, was admitted to Medical Room 261-01. Patient/family oriented to hospital policies and general routines including ID bracelet, bed and alarms, visiting hours, pain management, procedures, bathroom and other care routines, personal items, smoking policy, room service/diet, and visiting hours. Information on how to activate the Rapid Response Team has been discussed. Patient/Family are encouraged to report perceived risks to care and to ask questions if they do not understand what they are told or what they should do.
[2020-06-30] MEDS: diphenhydrAMINE HCl INJ 50 MG/ML VIAL 25 MG IV PUSH (07:55)
--- NOTE | 2020-06-30 08:05 | PM.IMHP ---
H&P: HPI History of Present Illness Date/Time: 06/30/20 08:05 Chief Complaint: Left flank pain secondary to obstructing 7-8 mm left proximal ureteral calculus Narrative: pleasant 60-year-old female patient of Dr. Chiqui Rod who was scheduled to have a left renal ESWL on July 09 according to the ER note. She failed to mention that to me at the our meeting. Regardless she presented to the emergency room with left renal colic. She was found to have a 7-8 mm left proximal stone with mild hydronephrosis. They could not get her pain under control and she is admitted for further management. At the time of my evaluation she is still describing me a pain level of 3. Denied any fevers and has been afebrile here. Review of Systems Review of Systems: All systems reviewed & are unremarkable except as noted in HPI and below PMFSH Past Medical History Medical History Anxiety Asthma Chronic lung disease Chronic pain syndrome CVA (cerebral vascular accident) Fibromyalgia Hyperlipidemia Hypothyroid Kidney stones Surgical History Surgical History H/O lithotripsy Family History Family History Sibling Family history of rheumatoid arthritis Mother Family history of lung cancer Social History Social History Smoking status: Never smoker Second hand tobacco smoke exposure: No Alcohol intake: never Substance use: never Substance use type: does not use Additional living arrangements comments: Gender identity (if verbalized by the patient): Female Spiritual care concerns: No Meds Home Medications and Allergies Home Medications Medication Instructions Recorded Confirmed Type Bariatric Multivitamins 1 cap PO HS 04/24/19 06/30/20 History aspirin [Aspir-Low] 81 mg PO WEEKLY 04/24/19 06/30/20 History bupropion HCl 150 mg PO BID 04/24/19 06/30/20 History levothyroxine 88 mcg PO QAM 04/24/19 06/30/20 History pravastatin 40 mg PO HS 04/24/19 06/30/20 History sertraline 100 mg PO BID 04/24/19 06/30/20 History tizanidine 4 mg PO HS 04/24/19 06/30/20 History zolpidem 10 mg PO HS 04/24/19 06/30/20 History Ventolin HFA 2 puff INHALATION Q4-6H PRN 01/06/20 06/30/20 History omeprazole 20 mg PO HS 01/06/20 06/30/20 History buspirone [BuSpar] 20 mg PO BID 06/30/20 06/30/20 History hydrocodone-acetaminophen [[place]] 1 tablet PO Q4H PRN 06/30/20 06/30/20 History Allergies Allergy/AdvReac Type Severity Reaction Status Date / Time meperidine [From Demerol] Allergy Severe Hives Verified 06/24/20 13:58 levofloxacin [From Levaquin] AdvReac Intermediate INFLAMED Verified 06/24/20 13:58 TENDONS adhesive tape AdvReac Blister Verified 06/24/20 13:58 codeine AdvReac Hives Verified 06/24/20 14:00 gabapentin AdvReac CAUSED Verified 06/24/20 14:00 HAIR TO FALL OUT pregabalin [From Lyrica] AdvReac Swelling - Verified 06/24/20 14:00 HANDS & FEET Vital Signs Vital Signs - 24 hr 06/29/20 21:29 06/29/20 23:10 06/29/20 23:48 Temperature 37.1 C Pulse Rate 99 70 73 Respiratory Rate 16 14 13 Blood Pressure 154/76 H 161/71 H 152/67 H Pulse Oximetry 99 97 96 06/30/20 01:31 06/30/20 01:59 06/30/20 02:36 Temperature 36.7 C Pulse Rate 72 68 62 Respiratory Rate 14 20 11 L Blood Pressure 144/60 H 145/63 H Pulse Oximetry 94 95 97 06/30/20 02:37 06/30/20 05:13 Temperature 36.2 C L Pulse Rate 62 58 L Respiratory Rate 20 Blood Pressure 132/60 Pulse Oximetry 97 99 Exam Const: General: cooperative; No comfortable Eyes: General: appearance normal, both eyes and all related structures Neck: Neck: normal visual inspection Chest: Chest palpation & inspection: normal inspection of the chest Resp: Effort & Inspection: normal respiratory e
--- NOTE | 2020-06-30 08:08 | WPDHPUPDATE1 ---
History and Physical Update Update Date/Time: 06/30/20 08:08 History and Physical has been reviewed, including an updated exam of the patient. There are NO changes in the patient's condition. Risks, benefits, and alternatives have been discussed and questions answered. Patient agrees to proceed with procedure.
--- NOTE | 2020-06-30 10:03 | WPDANESEPPF ---
Anes - Initial Pre Proc Eval Procedure: Operation Date: 06/30/20 10:30 Proposed Procedures p Cystoscopy, Left Retrograde Pyelogram, Left Stent Placement(Left) - Julio Pulido MD Date/Time: 06/30/20 10:03 Surgeon: Efra Louis MD Pre Op Diagnosis: left proximal ureteral calculus Patient Data Age: 60 Gender: F Height: 5 ft 4 in Weight: 78.9 kg Last Vital Signs Temp 36.2 C L 06/30/20 05:13 Pulse 58 L 06/30/20 05:13 Resp 20 06/30/20 05:13 BP 132/60 06/30/20 05:13 Pulse Ox 99 06/30/20 05:13 Allergies Allergy/AdvReac Type Severity Reaction Status Date / Time meperidine [From Demerol] Allergy Severe Hives Verified 06/24/20 13:58 levofloxacin [From Levaquin] AdvReac Intermediate INFLAMED Verified 06/24/20 13:58 TENDONS adhesive tape AdvReac Blister Verified 06/24/20 13:58 codeine AdvReac Hives Verified 06/24/20 14:00 gabapentin AdvReac CAUSED Verified 06/24/20 14:00 HAIR TO FALL OUT pregabalin [From Lyrica] AdvReac Swelling - Verified 06/24/20 14:00 HANDS & FEET Home Medications Medication Instructions Recorded Confirmed Type Bariatric Multivitamins 1 cap PO HS 04/24/19 06/30/20 History aspirin [Aspir-Low] 81 mg PO WEEKLY 04/24/19 06/30/20 History bupropion HCl 150 mg PO BID 04/24/19 06/30/20 History levothyroxine 88 mcg PO QAM 04/24/19 06/30/20 History pravastatin 40 mg PO HS 04/24/19 06/30/20 History sertraline 100 mg PO BID 04/24/19 06/30/20 History tizanidine 4 mg PO HS 04/24/19 06/30/20 History zolpidem 10 mg PO HS 04/24/19 06/30/20 History Ventolin HFA 2 puff INHALATION Q4-6H PRN 01/06/20 06/30/20 History omeprazole 20 mg PO HS 01/06/20 06/30/20 History buspirone [BuSpar] 20 mg PO BID 06/30/20 06/30/20 History hydrocodone-acetaminophen [[place]] 1 tablet PO Q4H PRN 06/30/20 06/30/20 History Laboratory Tests 06/29/20 06/29/20 06/29/20 23:12 23:29 23:29 WBC 8.8 K/mm3 K/mm3 (4.5-10.0) RBC 3.75 M/mm3 L M/mm3 (4.2-5.4) Hgb 13.2 g/dL g/dL (12.0-15.0) Hct 38.8 % % (37.0-47.0) MCV 103.5 fl H fl (80-100) MCH 35.2 pg H pg (26-34) MCHC 34.0 g/dl g/dl (32-36) RDW 11.3 % L % (11.5-14.5) Plt Count 147 k/mm3 L k/mm3 (150-375) MPV 9.6 fl fl (7.4-10.4) Immature Gran % (Auto) 0.3 % % (0-0.5) Neut % (Auto) 83.6 % H % (45.5-73.1) Lymph % (Auto) 10.5 % L % (18.3-44.2) [place] % (Auto) 5.1 % % (2.6-8.5) Eos % (Auto) 0.3 % % (0-4.4) Baso % (Auto) 0.2 % % (0.2-1.2) Lymph # (Auto) 0.92 K/mm3 K/mm3 (0.9-3.2) [place] # (Auto) 0.5 K/mm3 K/mm3 (0.1-0.6) Eos # (Auto) 0.0 K/mm3 K/mm3 (0-0.3) Baso # (Auto) 0.0 K/mm3 K/mm3 (0.0-0.1) Abs Immat Gran (auto) 0.03 K/mm3 K/mm3 (0.00-0.031) Absolute Neuts (auto) 7.3 K/mm3 H K/mm3 (1.3-6.7) Absolute Nucleated RBC 0.0 K/mm3 K/mm3 (0.0-0.012) Nucleated RBC % 0.0 % % (0.0-0.2) PT INR APTT Sodium 141 mmol/L mmol/L (137-145) Potassium 4.1 mmol/L mmol/L (3.4-5.0) Chloride 106 mmol/L mmol/L (98-107) Carbon Dioxide 29 mmol/L mmol/L (22-30) Anion Gap 6 mmol/L L mmol/L (8-16) BUN 25 mg/dL H mg/dL (7-17) Creatinine 0.70 mg/dL mg/dL (0.7-1.0) Estim Creat Clear Calc 74 ml/min ml/min Estimated GFR > 60 (59 - ) Glucose 122 mg/dL H mg/dL (65-105) Calcium 9.5 mg/dL mg/dL (8.4-10.2) Total Bilirubin 0.4 mg/dL mg/dL (0.2-1.3) AST 60 U/L H U/L (14-36) ALT 62 U/L H U/L (4-35) Alkaline Phosphatase 143 U/L H U/L (38-126) Total Protein 7.0 g/dL g/dL (6.3-8.2) Albumin 4.2 g/dL g/dL (3.5-5.1) Lipase 97 U/L U/L (23-300) Urine Color Re
[2020-06-30] MEDS: LACTATED RINGERS 1,000 ML 30 ML IV CONT (10:10)
[2020-06-30] MEDS: LIDOCAINE HCL 2% GEL UROJET 10 ML PKG MUCOUS MEM (10:44)
--- NOTE | 2020-06-30 10:45 | PM.PROC ---
Procedure Note - Detailed Date of procedure: 06/30/20 Pre-op diagnosis: left proximal ureteral calculus Post-op diagnosis: same Procedure performed: Cystoscopy, left retrograde pyelogram, left ureteral stent placement 4.8 contour Description of procedure: Patient is taken to the operative suite and correctly identified. Once anesthesia was obtained she was placed in dorsal lithotomy position and prepped draped usual sterile fashion. Twenty-two [place] scope inserted the bladder there is no tumors noted. Left ureteral orifice was cannulated with a guidewire placed up in the renal pelvis. A [place] was inserted over in pyelogram performed to confirm placement of the stent in the renal pelvis. 4.8 [place] contour stent was then placed with the proximal end coiled in the renal pelvis distal in the bladder. 2% viscous lidocaine was inserted urethra patient is taken recovery stable condition. She will be discharged home later today if she is doing well and will follow up with her scheduled lithotripsy with Dr. Rod on July 09 Anesthesia: GLMA Surgeon: Julio Pulido MD Drains: Yes Packing: No Pathology: none sent Complications: No immediate complications Condition: stable Disposition: PACU
--- NOTE | 2020-08-03 15:33 | PM.DS ---
DS: Admitting Diagnosis Admitting Diagnosis Admitting Diagnosis: obstructing left ureteral calculus DS: Discharge Diagnosis Discharge Diagnosis (1) Calculus of proximal left ureter: Code(s): N20.1 - Calculus of ureter Status: Acute Assessment and Plan: patient was admitted for left renal colic secondary to obstructing left ureteral stones. She was taken to the operative suite where a left ureteral stent was placed. She did well postoperatively was discharged home for definitive treatment of her stone later point time with Dr. Sepulveda DS: Summary Hospital Course Hospital Course: patient was admitted for treatment of her renal colic secondary to obstructing left ureteral calculi. A stent was placed in the patient tolerated well. She was discharged home with plans to have a lithotripsy at a later point time. Time Spent with Patient Time attestation: Total time spent providing and/or coordinating discharge services: Discharge Plan Discharge Attending physician on discharge: Julio Pulido Consulting providers: Ezio Simmons ; Irwin Huddleston ; Julio Pulido Discharging Clinician: Vannessa Santos Anticipated Discharge Date/Time: 06/30/20 15:11 Patient Disposition: Home, Self-Care Activity: no shower Diet: as tolerated Discharge Instructions: Follow up on July for your procedure with Dr. Sepulveda as planned. Call the office with any questions that you have. Expect to have blood in your urine, intermittent pain from your stent and cloudy urine. Patient Instructions: Antibiotic Form, Blood Thinners (DC) Stand Alone Forms: General Discharge Information Follow-up/Referrals: Julio Pulido MD [Physician] - Discharge Medications: New sulfamethoxazole-trimethoprim [Bactrim DS] 800-160 mg tablet 1 tablet PO .qd Qty: 5 RF: 0 Continued bupropion HCl 150 mg tablet sustained-release 12 hr 150 mg PO BID RF: 0 tizanidine 4 mg tablet 4 mg PO HS RF: 0 sertraline 100 mg tablet 100 mg PO BID RF: 0 aspirin [Aspir-Low] 81 mg Tablet,Delayed Release (Dr/Ec) 81 mg PO WEEKLY RF: 0 Hold Instructions: Resume on 07/11/20. levothyroxine 88 mcg tablet 88 mcg PO QAM RF: 0 pravastatin 80 mg tablet 40 mg PO HS RF: 0 zolpidem 10 mg tablet 10 mg PO HS RF: 0 Bariatric Multivitamins 45 mg iron- 800 mcg-120 mcg Capsule 1 cap PO HS RF: 0 omeprazole 20 mg capsule,delayed release(DR/EC) 20 mg PO HS RF: 0 Ventolin HFA 2 puff inhalation Q4-6H PRN (Reason: Dyspnea) RF: 0 hydrocodone-acetaminophen 5-325 mg Tablet 1 tablet PO Q4H PRN (Reason: Pain) RF: 0 buspirone 10 mg Tablet 20 mg PO BID RF: 0 Date of admission: 06/30/20 00:18 Primary Care Provider: ShellyJona Admitting Provider: Efra Louis Attending physician on admission: Juilo Pulido Condition: Stable
== END 2020-06-30 16:08 | disposition home or self-care (01) ==
LOC: ANHED 06-30 01:30 → ANH2MED 06-30 02:37
PROVIDERS: Admitting Provider Urology; Emergency Provider General Practice; PCP Internal Medicine; Visit Provider Urology
PROC: (CPT 52352; principal; 2020-06-30 10:30)
DX: N20.1 Calculus of ureter (principal); R31.9 Hematuria, unspecified
CPT/HCPCS: 52332; 36415; 74018; 74176; 74420; 80053; 81001; 83690; 85025; 85610; 85730; 87086; 87088; 96361; 96365; 96375; 96376; 99285; A9270; C1758; C1769; C2617; G0378; J0131; J0696; J1100; J1170; J1200; J2405; J2704; J3010; J7030; J7120; Q9966

== ENCOUNTER → 2020-07-06 02:54 | Outpatient (CLI) | payer MEDICARE, BC, SELFPAY ==
[2020-07-06 18:14] LABS: SARS-CoV-2 RNA PCR Negative
== END ==
PROVIDERS: PCP Internal Medicine; Visit Provider Urology
DX: Z01.812 Encounter for preprocedural laboratory examination (principal); Z20.822 Contact with and (suspected) exposure to COVID-19
CPT/HCPCS: C9803; U0003; U0005

== ENCOUNTER 2020-07-06 08:01 | Outpatient (CLI) | payer MEDICARE, BC, SELFPAY ==
--- NOTE | 2020-07-06 08:06 | ECG_ITS ---
Measurements Intervals [place] Rate: 66 P: 53 MS: 144 QRS: 38 QRSD: 93 T: 41 QT: 386 QTc: 405 Interpretive Statements SINUS RHYTHM BASELINE ARTIFACT- I, II, III, AVR, AVL, AVF NORMAL ECG Electronically Signed On 07-06-2020 8:24:31 CDT by Fadi Ramos D.O.
== END 2020-07-06 08:02 | disposition home or self-care (01) ==
PROVIDERS: PCP Internal Medicine; Visit Provider Urology
DX: Z01.818 Encounter for other preprocedural examination (principal); Z20.822 Contact with and (suspected) exposure to COVID-19; E78.00 Pure hypercholesterolemia, unspecified
CPT/HCPCS: 93005; C9803; U0003; U0005

== ENCOUNTER 2020-07-09 00:33 | Day surgery (SDC) | payer MEDICARE, BC, SELFPAY ==
[2020-06-24 14:09] VITALS: BMI 30.2
[2020-07-09] VITALS (8 sets, daily range): BP systolic 118–153; BP diastolic 52–72; PULSE 69–78; RESP 12–18; TEMP 36.2–37; O2SAT 96–100
--- NOTE | ~2020-07-09 | XR_ITS ---
EXAMINATION: XR abdomen/kub 1V EXAM DATE: 07/09/2020 08:20 INDICATION: For left-sided ESWL. TECHNIQUE: Frontal projection(s) of the abdomen for interpretation. Comparison is made to prior exami nation from 06/29/2020. FINDINGS: Large stone adjacent to the left double-J ureteral stent in probably at the ureteropelvic junction, position unchanged. There is moderate amount of colonic stool and gas. Calcifications in th e pelvis are believed to be phleboliths. Nonobstructive bowel gas pattern. There are mild bony degene rative changes. IMPRESSION: Left UPJ stone. Stent in position. Reviewed, dictated and finalized at location B.
--- NOTE | 2020-07-09 07:22 | WPDHPUPDATE1 ---
History and Physical Update Update Date/Time: 07/09/20 07:22 History and Physical has been reviewed, including an updated exam of the patient. There are NO changes in the patient's condition. Risks, benefits, and alternatives have been discussed and questions answered. Patient agrees to proceed with procedure.
--- NOTE | 2020-07-09 08:56 | WPDANESEPPF ---
Anes - Initial Pre Proc Eval Procedure: Operation Date: 07/09/20 10:00 Proposed Procedures p Left Renal Extracorporeal Shock Wave Lithotripsy - Pj Sepulveda MD Date/Time: 07/09/20 08:56 Surgeon: Pj Sepulveda MD Pre Op Diagnosis: left renal stone Patient Data Age: 60 Gender: F Height: 5 ft 4 in Weight: 80.85 kg Allergies Allergy/AdvReac Type Severity Reaction Status Date / Time meperidine [From Demerol] Allergy Severe Hives Verified 07/09/20 08:38 levofloxacin [From Levaquin] AdvReac Intermediate INFLAMED Verified 07/09/20 08:38 TENDONS adhesive tape AdvReac Blister Verified 07/09/20 08:38 codeine AdvReac Hives Verified 07/09/20 08:38 gabapentin AdvReac CAUSED Verified 07/09/20 08:38 HAIR TO FALL OUT pregabalin [From Lyrica] AdvReac Swelling - Verified 07/09/20 08:38 HANDS & FEET Home Medications Medication Instructions Recorded Confirmed Type Bariatric Multivitamins 1 cap PO HS 04/24/19 07/09/20 History aspirin [Aspir-Low] 81 mg PO WEEKLY 04/24/19 07/09/20 History bupropion HCl 150 mg PO BID 04/24/19 07/09/20 History levothyroxine 88 mcg PO QAM 04/24/19 07/09/20 History pravastatin 40 mg PO HS 04/24/19 07/09/20 History sertraline 100 mg PO BID 04/24/19 07/09/20 History tizanidine 4 mg PO HS 04/24/19 07/09/20 History zolpidem 10 mg PO HS 04/24/19 07/09/20 History Ventolin HFA 2 puff INHALATION Q4-6H PRN 01/06/20 07/09/20 History omeprazole 20 mg PO HS 01/06/20 07/09/20 History buspirone 20 mg PO BID 06/30/20 07/09/20 History hydrocodone-acetaminophen 1 tablet PO Q4H PRN 06/30/20 07/09/20 History sulfamethoxazole-trimethoprim 1 tablet PO .qd #5 tablet 06/30/20 07/09/20 Rx [Bactrim DS] Patient hx anesthesia problems: none Family hx anesthesia problems: none PMFSH Past Medical History Medical History Anxiety Asthma Chronic lung disease Chronic pain syndrome CVA (cerebral vascular accident) Fibromyalgia Hyperlipidemia Hypothyroid Kidney stones Surgical History Surgical History H/O lithotripsy Family History Family History Sibling Family history of rheumatoid arthritis Mother Family history of lung cancer Social History Social History Smoking status: Never smoker Second hand tobacco smoke exposure: No Alcohol intake: never Substance use: never Substance use type: does not use Living arrangements: with family Additional living arrangements comments: Gender identity (if verbalized by the patient): Female Spiritual care concerns: No Anes - Eval Final PreProcedure Day of Procedure 07/09/20 08:56 Informed Consent: The patient's anesthetic plan and its attendant risks and benefits were discussed with the patient/family/POA. Questions were solicited and answers provided to the satisfaction of the patient/family/POA.
[2020-07-09] MEDS: LACTATED RINGERS 1,000 ML 30 ML IV CONT (09:12)
--- NOTE | 2020-07-09 09:35 | SUR.PREOP ---
Per Dr. Sepulveda consent needed updated to incorporate stent removal. When discussing new consent with patient, patient states that if Dr. Sepulveda recommends stent to stay in place she would rather keep it in. Called Dr. Sepulveda, he states he does prefer patient to leave stent in, however if she is adamant that it come out he will remove it. Patient is tearful, educated her on reason for leaving stent. Print Finisher Senia also in room to discuss stent with patient.
[2020-07-09] MEDS: ceFAZolin 2 GM/D5W 50 ML 2 GM/50 ML BAG IVPB (10:34)
--- NOTE | 2020-07-09 10:56 | PM.PROC ---
Procedure Note - Detailed Date of procedure: 07/09/20 Pre-op diagnosis: Left ureteral stone Post-op diagnosis: same Procedure performed: Left ESWL Description of procedure: The patient was brought to the operative suite where she was placed in the supine position on the [place] lithotripsy table. The focal point of the lithotripter was placed at a 8-9mm left proximal ureteral calculus. A total of 3000 shocks were delivered at a power setting of 4. There appeared to be good fragmentation of the stone. The patient tolerated the procedure well and was taken to the recovery room in good condition. Anesthesia: GLMA Surgeon: Pj Sepulveda MD [place] Operator: None Drains: No Packing: No Pathology: none sent Complications: No immediate complications Condition: stable Disposition: PACU
[2020-07-09] MEDS: fentaNYL CITRATE INJ (*CRX) 100 MCG/2 ML VIAL 25 MCG IV PUSH ×4 (11:55→12:14)
[2020-07-09] MEDS: oxyCODONE HCL (*CRX) 5 MG TAB IR PO (12:45)
== END 2020-07-09 13:00 | disposition home or self-care (01) ==
PROVIDERS: PCP Internal Medicine; Visit Provider Urology
PROC: (CPT 50590; principal; 2020-07-09 10:00)
DX: N20.1 Calculus of ureter (principal); Z79.82 Long term (current) use of aspirin; E03.9 Hypothyroidism, unspecified; F41.9 Anxiety disorder, unspecified; G43.909 Migraine, unspecified, not intractable, without status migrainosus; Z86.73 Personal history of transient ischemic attack (TIA), and cerebral infarction without residual deficits; E78.5 Hyperlipidemia, unspecified; J98.4 Other disorders of lung
CPT/HCPCS: 50590; 74018; A9270; J0690; J1200; J2405; J2704; J3010; J7120

== ENCOUNTER 2020-07-20 08:29 | Outpatient (CLI) | payer MEDICARE, BC, SELFPAY ==
--- NOTE | ~2020-07-20 | XR_ITS ---
EXAMINATION: XR abdomen/kub 1V EXAM DATE: 07/20/2020 08:48 INDICATION: Left ureteral stone, left-sided flank pain. Stent. TECHNIQUE: Frontal projection(s) of the abdomen for interpretation. Comparison is made to prior exami nation from 07/09/2020. FINDINGS: There is a left-sided double-J ureteral stent overlying expected position. Previously seen proximal ureteral stone no longer identified. Multiple pelvic calcifications including along the cour se of the ureteral stent distally, but probably phleboliths. There is bowel anastomosis material. The re is a nonobstructive bowel gas pattern. There are bony degenerative changes. IMPRESSION: Left ureteral stent in position. Reviewed, dictated and finalized at location B.
== END 2020-07-20 08:30 | disposition home or self-care (01) ==
LOC: ANHIMG 08:33
PROVIDERS: PCP Internal Medicine; Visit Provider Urology
DX: N20.1 Calculus of ureter (principal); R10.9 Unspecified abdominal pain
CPT/HCPCS: 74018

== ENCOUNTER 2020-09-28 10:20 | Outpatient (CLI) | payer MEDICARE, BC, SELFPAY ==
--- NOTE | ~2020-09-28 | XR_ITS ---
EXAMINATION: XR abdomen/kub 1V EXAM DATE: 09/28/2020 10:59 INDICATION: Left ureteral stone. History of kidney stones. TECHNIQUE: Frontal projection of the upper abdomen, frontal projection lower abdomen/pelvis for inter pretation. Comparison is made to prior examination from 07/20/2020. FINDINGS: Previously seen left double-J ureteral stent has been removed. Calcifications in the pelvi s are believed to be phleboliths. Several small densities projecting over the upper pole of the right kidney again noted. Bowel gas is obscuring both renal contours. Mild to moderate lumbar spondylosis and hip osteoarthritis. Nonobstructive bowel gas pattern. IMPRESSION: Probable small right nephrolithiasis. Reviewed, dictated and finalized at location A.
== END 2020-09-28 10:21 | disposition home or self-care (01) ==
PROVIDERS: PCP Internal Medicine; Visit Provider Urology
DX: N20.1 Calculus of ureter (principal)
CPT/HCPCS: 74018

== ENCOUNTER 2021-05-03 15:21 | Outpatient (CLI) | payer MEDICARE, BC, SELFPAY ==
--- NOTE | ~2021-05-03 | XR_ITS ---
XR abdomen/kub 1V DATE: 05/03/2021 15:44 INDICATION: Left ureteral stone. Right abdominal pain. Hematuria. TECHNIQUE: AP projection, 2 views COMPARISON: 09/28/2020 KUB FINDINGS: The lung bases are clear. Heart size is normal. No visceromegaly is evident. The psoas shadows are intact. Nonspecific bowel gas pattern, without latesha dence of obstruction. Bilateral calcified pelvic phleboliths. Degenerative changes of the thoracic and lumbar spine. IMPRESSION: Nonspecific abdomen Noncontrast CT abdomen pelvis examination would be more accurate sensitive for detection of urinary t ract calculi. Reviewed, dictated and finalized at [facility]. Reviewed, dictated and finalized at location A. IMPRESSION: Nonspecific abdomen Noncontrast CT abdomen pelvis examination would be more accurate sensitive for detection of urinary tract calculi.
== END 2021-05-03 15:22 | disposition home or self-care (01) ==
LOC: ANHIMG 15:29
PROVIDERS: PCP Internal Medicine; Visit Provider Nurse Practitioner Adult Health
DX: N20.1 Calculus of ureter (principal)
CPT/HCPCS: 74018

== ENCOUNTER 2021-05-19 10:03 | Outpatient (CLI) | payer MEDICARE, BC, SELFPAY ==
--- NOTE | ~2021-05-19 | CT_ITS ---
EXAMINATION: CT abdomen pelvis wo con DATE: 05/19/2021 10:17 INDICATION: Hematuria and right flank pain TECHNIQUE: Computed tomography (CT) of the abdomen and pelvis was performed without intravenous contr ast. The dose-length product (DLP) was 225.88 mGy-cm. Automated exposure control and iterative recons truction technique were employed. COMPARISON: 06/09/2020 FINDINGS: The lung bases are clear. The heart size is normal. Changes of gastric bypass are noted. Th e liver, spleen, pancreas, gallbladder, and adrenal glands are normal. There are three nonobstructing stones of the right kidney which measure up to 5 mm. There is a 1 mm nonobstructing stone of the lef t kidney upper pole. There is no hydronephrosis or hydroureter. No pathologically enlarged abdominal or pelvic lymph nodes are identified. There is no free intraperitoneal gas or evidence of bowel obstr uction. There appears to be a stent in the anterior epigastric subcutaneous tissues. There is mild manolo mbar spondylosis. IMPRESSION: 1. Bilateral nephrolithiasis. Reviewed, dictated and finalized at location A.
== END 2021-05-19 10:04 | disposition home or self-care (01) ==
LOC: ANHIMG 10:04
PROVIDERS: PCP Internal Medicine; Visit Provider Urology
DX: N20.0 Calculus of kidney (principal); R10.9 Unspecified abdominal pain; M47.816 Spondylosis without myelopathy or radiculopathy, lumbar region
CPT/HCPCS: 74176

== ENCOUNTER 2021-07-02 05:35 | Emergency (ER) | payer MEDICARE, BC, SELFPAY ==
[2021-07-02] VITALS (14 sets, daily range): BP systolic 132–167; BP diastolic 64–87; PULSE 71–95; RESP 10–18; TEMP 36.1; O2SAT 96–100
--- NOTE | ~2021-07-02 | XR_ITS ---
XR abdomen/kub 1V DATE: 07/02/2021 12:04 INDICATION: Right ureterovesical junction 5 mm stone TECHNIQUE: 2 supine AP views COMPARISON: 07/02/2021 CT abdomen pelvis 05/03/2021 KUB FINDINGS: Faintly calcified approximately 4 mm stone overlying right ureterovesical junction area, no t present on 05/03/2021 at this location. Probable right renal calcified calculi. Bilateral calcified pelvic phleboliths. No evidence of bowel obstruction. The psoas shadows are intact. No visceromegaly is evident. Within lower lung zones appear clear. Heart size appears normal. Degenerative spurring of the thoracic and lumbar spine. IMPRESSION: Faintly calcified right ureterovesical junction approximately 4 mm calculus Reviewed, dictated and finalized at [facility]. Reviewed, dictated and finalized at location A.
--- NOTE | ~2021-07-02 | CT_ITS ---
EXAMINATION: CT abdomen pelvis wo con DATE: 07/02/2021 07:24 INDICATION: Right flank pain. Right lower quadrant abdominal pain. History of kidney stones. Nausea. Status post appendectomy. TECHNIQUE: Computed tomography (CT) of the abdomen and pelvis was performed without intravenous contr ast. Automated exposure control and iterative reconstruction technique were employed. Exam dose: 650 .21 mGy-cm total exam DLP. COMPARISON: 05/19/[address] abdomen pelvis FINDINGS: The lung bases are clear. Normal heart size. No pericardial or pleural effusion. Small sliding hiatal hernia. Status post gastric bypass surgery. The gallbladder is distended. Borderline thickness of the gallbladder wall. There is no pericholecyst ic fluid or fat stranding is evident. No bile duct dilatation. No hepatic, splenic, pancreatic, and a drenal or renal space-occupying mass lesion is detected. There are at least 2 or 3 small nonobstructing left renal calculi, largest approximately 3 mm. No lef t ureteral calculus or hydroureteronephrosis. There are at least 5 or 6 nonobstructing right renal calculi, the largest measuring up to 5.3 mm with attenuation of approximately 1150 Hounsfield units. There is moderate right hydroureteronephrosis due to 5 mm calculus at the right ureterovesical juncti on. The urinary bladder is unremarkable. Status post hysterectomy. Normal caliber of the abdominal aorta. No intraperitoneal or retroperitoneal or pelvic mass lesion or adenopathy or ascites. Diffuse idiopathic skeletal hyperostosis of the thoracic spine. Multilevel mild to moderate degenerat miguel disc disease of the lumbar spine. There is prominent degenerative change at the apophyseal joints of the lumbar spine with associated grade 1 anterolisthesis at L4-5. No suspicious osteolytic or osteoblastic lesions. IMPRESSION: 5 mm obstructing right ureterovesical junction with moderately prominent right hydrouret eronephrosis Bilateral nephrolithiasis Small sliding hiatal hernia Status post gastric bypass surgery Status post hysterectomy Reviewed, dictated and finalized at [facility]. Reviewed, dictated and finalized at location A. IMPRESSION: 5 mm obstructing right ureterovesical junction with moderately pro minent right hydroureteronephrosis Bilateral nephrolithiasis Small sliding hiatal hernia Status post gastric bypass surgery Status post hysterectomy
[2021-07-02 06:00] LABS: Basophils Percent Auto 0.4 % (0.2-1.2); Eosinophils Absolute Auto 0.1 K/mm3 (0-0.3); Eosinophils Percent Auto 1.3 % (0-4.4); Hematocrit 40.8 % (37.0-47.0); Hemoglobin 13.5 g/dL (12.0-15.0); Immature Granulocyte Absolute 0.02 K/mm3 (0.00-0.031); Immature Granulocyte Percent A 0.2 % (0-0.5); Lymphocytes Absolute Auto 1.71 K/mm3 (0.9-3.2); Lymphocytes Percent Auto 17.7 % (18.3-44.2); Mean Corpuscular HGB Conc 33.1 g/dl (32-36); Mean Corpuscular Hemoglobin 34.4 pg (26-34); Mean Corpuscular Volume 103.8 fl (80-100); Mean Platelet Volume 9.3 fl (7.4-10.4); Monocytes Absolute Auto 0.8 K/mm3 (0.1-0.6); Monocytes Percent Auto 8.3 % (2.6-8.5); Neutrophils Percent Auto 72.1 % (45.5-73.1); Platelet Count Result 176 k/mm3 (150-375); Red Blood Count 3.93 M/mm3 (4.2-5.4); Red Cell Distribution Width 11.7 % (11.5-14.5); White Blood Count 9.7 K/mm3 (4.5-10.0)
[2021-07-02 06:12] LABS: Alanine Aminotransferase 55 U/L (6-35); Albumin Level 4.3 g/dL (3.5-5.1); Alkaline Phosphatase 93 U/L (38-126); Anion Gap 4 mmol/L (8-16); Aspartate Amino Transferase 64 U/L (14-36); Bilirubin,Total 0.8 mg/dL (0.2-1.3); Blood Urea Nitrogen 25 mg/dL (7-17); Calcium 9.4 mg/dL (8.4-10.2); Carbon Dioxide 36 mmol/L (22-30); Chloride 101 mmol/L (98-107); Estimated Glomerular Filt Rate 56; Glucose 130 mg/dL (65-110); Sodium 141 mmol/L (137-145)
[2021-07-02 06:28] LABS: Appearance Urine Slightly Cloudy (Clear); Bilirubin Urine Negative (Negative); Color Urine Yellow (Yellow); Glucose Urine UA Negative (Negative); Ketones Urine Trace mg/dL (Negative); Leukocyte Esterase Ur Trace LEU/UL (Negative); Nitrate Urine Negative (Negative); Protein Urine Negative (Negative); Specific Grav Ur 1.025 (1.001-1.035); Urobilinogen Urine 0.2 mg/dL (<2.0)
[2021-07-02 06:29] LABS: Add Urine Microscopic? YES; Blood Urine Trace-Intact (Negative)
[2021-07-02 06:52] LABS: Bacteria Urine Trace /hpf; Mucus Urine Moderate /lpf; Squamous Epithelial Cell Urine Few /hpf (Few)
[2021-07-02] MEDS: KETOROLAC 15 MG/ML VIAL (*BKC) IV PUSH (07:31)
--- NOTE | 2021-07-02 07:40 | ED.ABDPAIN ---
HPI - Abdominal Pain General Chief Complaint: Abdominal Pain Stated Complaint: Right kidney stone Time Seen by Provider: 07/02/21 06:49 History of Present Illness HPI narrative: 61-year-old female with history of kidney stones presents with sudden severe right flank pain that radiates to the front, she is also endorsing nausea, no dysuria, has had multiple kidney stones in the past and had just passed 1 yesterday, no fevers or chills. Related Data Home Medications Medication Instructions Recorded Confirmed aspirin 81 mg tablet,delayed 81 mg PO WEEKLY 04/24/19 07/09/20 release (Aspir-Low) bupropion HCl 150 mg tablet,12 hr 150 mg PO BID 04/24/19 07/09/20 sustained-release levothyroxine 88 mcg tablet 88 mcg PO QAM 04/24/19 07/09/20 pyvyngua-ympiqrim-lpks 45 mg-folic 1 cap PO HS 04/24/19 07/09/20 acid 800 mcg-vit K 120 mcg capsule (Bariatric Multivitamins) pravastatin 80 mg tablet 40 mg PO HS 04/24/19 07/09/20 sertraline 100 mg tablet 100 mg PO BID 04/24/19 07/09/20 tizanidine 4 mg tablet 4 mg PO HS 04/24/19 07/09/20 zolpidem 10 mg tablet 10 mg PO HS 04/24/19 07/09/20 Ventolin HFA 2 puff inhalation Q4-6H PRN Dyspnea 01/06/20 07/09/20 omeprazole 20 mg capsule,delayed 20 mg PO HS 01/06/20 07/09/20 release buspirone 10 mg tablet 20 mg PO BID 06/30/20 07/09/20 hydrocodone 5 mg-acetaminophen 325 1 tablet PO Q4H PRN Pain 06/30/20 07/09/20 mg tablet Allergies Allergy/AdvReac Type Severity Reaction Status Date / Time meperidine [From Demerol] Allergy Severe Hives Verified 07/02/21 05:41 levofloxacin [From Levaquin] AdvReac Intermediate INFLAMED Verified 07/02/21 05:41 TENDONS adhesive tape AdvReac Blister Verified 07/02/21 05:41 codeine AdvReac Hives Verified 07/02/21 05:41 gabapentin AdvReac CAUSED Verified 07/02/21 05:41 HAIR TO FALL OUT pregabalin [From Lyrica] AdvReac Swelling - Verified 07/02/21 05:41 HANDS & FEET Review of Systems Review of Systems: CONST: No fever. HEENT: No sore throat C/V: No chest pain RESP: No cough GI: Reports abdominal pain, nausea : No dysuria. M/S: No joint pain. SKIN: No rash. NEURO: [No headache or focal numbness or weakness] PSYCH: [No depression] [facility] Past Medical History Medical History Anxiety Asthma Chronic lung disease Chronic pain syndrome CVA (cerebral vascular accident) Fibromyalgia Hyperlipidemia Hypothyroid Kidney stones Surgical History Surgical History H/O lithotripsy Family History Family History Sibling Family history of rheumatoid arthritis Mother Family history of lung cancer Social History Social History Smoking status: Never smoker Second hand tobacco smoke exposure: No Alcohol intake: never Substance use: never Substance use type: does not use Additional living arrangements comments: Gender identity (if verbalized by the patient): Female Spiritual care concerns: No Exam Narrative: EXAMINATION OF ORGAN SYSTEMS/BODY AREAS: Constitutional: Vital signs per nursing GENERAL:Appears in pain HEAD: Normal with no signs of head trauma. EYES: EOMI, conjunctiva normal ENT: Hearing grossly intact LUNGS: Nonlabored breathing. HEART: [Regular rate and rhythm] ABD: [Soft], [nontender to palpation], R CVA tenderness EXT: Normal range of motion SKIN: [No rashes or lesions.] NEURO: [No gross focal sensory or strength deficits.] PSYCH: Normal affect Course Course Emergency Course: ED COURSE AND MEDICAL DECISION MAKIN-year-old female presenting to the emergency department for acute flank pain, symptoms are concerning for likely renal colic versus pyelonephritis. Urinalysis is ordered. [Toradol 15mg, Zofran 4mg] are ordered. CT scan of the abdomen/
[2021-07-02] MEDS: HYDROcodone/acetaminophen (*CRX) 5-325 MG TABLET 1 TAB PO (07:50)
[2021-07-02] MEDS: cefTRIAXone 2 GM in SODIUM CHLORIDE 0.9% IV 100 ML 200 ML IVPB (09:04)
[2021-07-02] MEDS: TAMSULOSIN HCL 0.4 MG CAPSULE PO (09:32)
[2021-07-02 10:42] LABS: Glucose Point of Care 120 mg/dl (65-105)
--- NOTE | 2021-07-02 11:48 | PC.NURSE ---
pt ginny at bedside. states pt is ok to be discharged.
--- NOTE | 2021-07-02 11:59 | WPDURCON ---
Assessment and Plan Assessment and plan (1) Calculus of ureterovesical junction (UVJ): Code(s): N20.1 - Calculus of ureter Status: Acute (2) Calculus of proximal left ureter: Code(s): N20.1 - Calculus of ureter Status: Acute Assessment and Plan: I discussed options with the patient. Risks benefits alternatives were discussed. Discussed options of medical expulsive therapy versus ureteroscopy to remove the stone. The patient elected for trial of stone passage with medical expulsive therapy. She will be sent home today after a KUB. We will plan follow-up next week with a repeat KUB to assess for stone passage. If she is unable to pass the stone in the near future we will plan for cystoscopy, right ureteroscopy, laser lithotripsy and stone extraction. Patient understands to return to the emergency department she develops fevers chills nausea vomiting severe pain. Urology Consult Note HPI Date Seen: 07/02/21 Requesting Physician: Emergency room Primary Care Provider: Jona Bravo, Consult Narrative Narrative: Tiffanie Ruiz is a 61 year old female with a history of nephrolithiasis. She presented to the ER with acute right-sided flank pain. She was found to have a 5mm distal stone. She denies fevers or chills she agreed she denies nausea vomiting. She states that her pain has been better controlled in the department with medication PMFSH Past Medical History Medical History Anxiety Asthma Chronic lung disease Chronic pain syndrome CVA (cerebral vascular accident) Fibromyalgia Hyperlipidemia Hypothyroid Kidney stones Surgical History Surgical History H/O lithotripsy Family History Family History Sibling Family history of rheumatoid arthritis Mother Family history of lung cancer Social History Social History Smoking status: Never smoker Second hand tobacco smoke exposure: No Alcohol intake: never Substance use: never Substance use type: does not use Additional living arrangements comments: Gender identity (if verbalized by the patient): Female Spiritual care concerns: No Meds Home Medications and Allergies Home Medications Medication Instructions Recorded Confirmed Type aspirin 81 mg tablet,delayed 81 mg PO WEEKLY 04/24/19 07/09/20 History release (Aspir-Low) bupropion HCl 150 mg tablet,12 hr 150 mg PO BID 04/24/19 07/09/20 History sustained-release levothyroxine 88 mcg tablet 88 mcg PO QAM 04/24/19 07/09/20 History cqmsslsd-jdecnnnu-qsdt 45 mg-folic 1 cap PO HS 04/24/19 07/09/20 History acid 800 mcg-vit K 120 mcg capsule (Bariatric Multivitamins) pravastatin 80 mg tablet 40 mg PO HS 04/24/19 07/09/20 History sertraline 100 mg tablet 100 mg PO BID 04/24/19 07/09/20 History tizanidine 4 mg tablet 4 mg PO HS 04/24/19 07/09/20 History zolpidem 10 mg tablet 10 mg PO HS 04/24/19 07/09/20 History Ventolin HFA 2 puff inhalation Q4-6H PRN Dyspnea 01/06/20 07/09/20 History omeprazole 20 mg capsule,delayed 20 mg PO HS 01/06/20 07/09/20 History release buspirone 10 mg tablet 20 mg PO BID 06/30/20 07/09/20 History hydrocodone 5 mg-acetaminophen 325 1 tablet PO Q4H PRN Pain 06/30/20 07/09/20 History mg tablet sulfamethoxazole 800 1 tablet PO .qd #5 tabs 06/30/20 07/09/20 Rx mg-trimethoprim 160 mg tablet (Bactrim DS) ibuprofen 600 mg tablet 600 mg PO Q6H PRN pain #30 tabs 07/02/21 Rx tamsulosin 0.4 mg capsule (Flomax) 0.4 mg PO DAILY #10 caps 07/02/21 Rx Allergies Allergy/AdvReac Type Severity Reaction Status Date / Time meperidine [From Demerol] Allergy Severe Hives Verified 07/02/21 05:41 levofloxacin [From Levaquin] AdvReac Intermediate INFLAMED Verified 07/02/21 05:41 T
== END 2021-07-02 12:15 | disposition home or self-care (01) ==
PROVIDERS: Emergency Medicine; Emergency Provider Emergency Medicine; PCP Internal Medicine
DX: N20.1 Calculus of ureter (principal); E03.9 Hypothyroidism, unspecified; J45.909 Unspecified asthma, uncomplicated; E78.5 Hyperlipidemia, unspecified; G89.4 Chronic pain syndrome; M79.7 Fibromyalgia; F41.9 Anxiety disorder, unspecified; Z86.73 Personal history of transient ischemic attack (TIA), and cerebral infarction without residual deficits; Z87.442 Personal history of urinary calculi
CPT/HCPCS: 36415; 74018; 74176; 80053; 81001; 82948; 85025; 87077; 87086; 87088; 96365; 96375; 99284; A9270; J0696; J1885

== ENCOUNTER 2021-07-11 10:01 | Outpatient (CLI) | payer MEDICARE, BC, SELFPAY ==
--- NOTE | ~2021-07-11 | XR_ITS ---
EXAMINATION: XR abdomen/kub 1V DATE: 07/11/2021 10:26 INDICATION: Right ureteral stone. TECHNIQUE: A supine view of the abdomen on 2 radiographs was obtained. COMPARISON: CT abdomen and pelvis 07/02/2021 FINDINGS: There are no dilated loops of bowel. The kidneys are obscured by bowel. There are approxima tely 4 stones in right kidney measuring up to 5 mm. There are phleboliths in right ovarian vein. Ther e are phleboliths in the pelvis. IMPRESSION: 1. Right kidney stones. Reviewed, dictated and finalized at location A. IMPRESSION: 1. Right kidney stones.
== END 2021-07-11 10:02 | disposition home or self-care (01) ==
PROVIDERS: PCP Internal Medicine; Visit Provider Nurse Practitioner Adult Health
DX: N20.0 Calculus of kidney (principal)
CPT/HCPCS: 74018

== ENCOUNTER → 2021-07-18 10:56 | Outpatient (CLI) | payer MEDICARE, BC, SELFPAY ==
--- NOTE | ~2021-07-18 | CT_ITS ---
EXAMINATION: CT abdomen pelvis wo con DATE: 07/18/2021 11:16 INDICATION: Right flank pain nausea, vomiting. Hematuria. Diarrhea. TECHNIQUE: Computed tomography (CT) of the abdomen and pelvis was performed without intravenous contr ast. Automated exposure control and iterative reconstruction technique were employed. Exam dose: 506 .41 mGy-cm total exam DLP. COMPARISON: 07/11/2021, 07/02/2021 KUB 07/02/2021 CT abdomen pelvis FINDINGS: The lung bases are clear of infiltrate or consolidation. Normal heart size. No pericardial or pleural effusion. Small sliding hiatal hernia. Postoperative change of the stomach. The liver, gallbladder, bile ducts, spleen, pancreas, pancreatic duct are unremarkable. Normal morphology of the adrenal glands. There are approximately 4 right renal nonobstructing calculi, ranging in size from 10.25 mm. There are couple of pinpoint nonobstructing left renal calculi. No ureteral calculus or hydroureteronephrosis. The urinary bladder is unremarkable. No bowel obstruction, bowel wall thickening, pneumatosis or intraperitoneal free air. Prominent degenerative changes at the apophyseal joints of the lumbar and lumbosacral spine with asso ciated grade 1 anterolisthesis at L4-5. Diffuse idiopathic skeletal hyperostosis of the thoracic spin e. No suspicious osteolytic or osteoblastic lesions are noted. IMPRESSION: Bilateral nonobstructive nephrolithiasis Postoperative change of the stomach Small sliding hiatal hernia Reviewed, dictated and finalized at [facility]. Reviewed, dictated and finalized at location A.
== END ==
PROVIDERS: PCP Internal Medicine; Visit Provider Nurse Practitioner Adult Health
DX: R10.9 Unspecified abdominal pain (principal); N20.0 Calculus of kidney; Z98.890 Other specified postprocedural states; K44.9 Diaphragmatic hernia without obstruction or gangrene
CPT/HCPCS: 74176

== ENCOUNTER 2021-09-13 09:38 | Outpatient (CLI) | payer MEDICARE, BC, SELFPAY ==
--- NOTE | ~2021-09-13 | CT_ITS ---
EXAMINATION: CT abdomen pelvis wo con DATE: 09/13/2021 10:08 INDICATION: Flank pain. TECHNIQUE: Computed tomography (CT) of the abdomen and pelvis was performed without intravenous contr ast. Automated exposure control and iterative reconstruction technique were employed. The dose-length product was 272.95 mGy-cm. COMPARISON: CT abdomen and pelvis 07/18/2021 FINDINGS: The visualized portions of the lung bases demonstrate minimal atelectasis. No pleural effus ion. The heart size normal. No pericardial effusion. There are surgical changes of the stomach. The l iver, gallbladder, spleen, pancreas, and adrenal glands are normal. There are six stones in right kid serge measuring up to 5 mm. There are three stones in left kidney measuring up to 3 mm. Stool distends the rectum. There are changes of appendectomy. There are no pathologically enlarged lymph nodes. Ther e is no free intraperitoneal fluid. There is moderate lumbar spondylosis. There are bridging endplate osteophytes at multiple levels in the thoracic spine, consistent with diffuse idiopathic skeletal hy perostosis (DISH). IMPRESSION: 1. Bilateral nonobstructing kidney stones. Reviewed, dictated and finalized at location A.
--- NOTE | ~2021-09-13 | XR_ITS ---
EXAMINATION: XR abdomen/kub 1V DATE: 09/13/2021 10:05 INDICATION: Right flank pain. Kidney stones. TECHNIQUE: A supine view of the abdomen on 2 radiographs was obtained. COMPARISON: CT abdomen and pelvis 07/18/2021 FINDINGS: There are no dilated loops of bowel. There are phleboliths in the pelvis. The kidneys are o bscured by bowel. There are least 2 stones in right kidney measuring up to 5 mm. There is a phlebolit h in right ovarian vein. IMPRESSION: 1. Right kidney stones. Reviewed, dictated and finalized at location A. IMPRESSION: 1. Right kidney stones.
== END 2021-09-13 09:39 | disposition home or self-care (01) ==
PROVIDERS: PCP Internal Medicine; Visit Provider Nurse Practitioner Adult Health
DX: R10.9 Unspecified abdominal pain (principal); N20.0 Calculus of kidney
CPT/HCPCS: 74018; 74176

== ENCOUNTER 2021-10-13 13:31 | Outpatient (CLI) | payer MEDICARE, BC, SELFPAY ==
--- NOTE | ~2021-10-13 | XR_ITS ---
EXAMINATION: XR abdomen/kub 1V INDICATION: Bilateral kidney stones TECHNIQUE: Supine views of the abdomen were obtained on 2 radiographs. COMPARISON: 09/13/2021 FINDINGS: Bowel contents project over the kidneys limiting sensitivity for renal stones. There appear to be small stones of the right kidney measuring up to 4 mm. No left-sided urolithiasis is identifie d. There are phleboliths of the pelvis. The bowel gas pattern is normal. There is mild osteoarthritis of the left hip. IMPRESSION: 1. Possible right nephrolithiasis, sensitivity limited by bowel contents. Reviewed, dictated and finalized at location B.
== END 2021-10-13 13:32 | disposition home or self-care (01) ==
LOC: ANHIMG 13:38
PROVIDERS: PCP Internal Medicine; Visit Provider Urology
DX: N20.0 Calculus of kidney (principal)
CPT/HCPCS: 74018

== ENCOUNTER 2021-10-28 07:37 | Outpatient (RCR) | payer MEDICARE, BC, SELFPAY ==
[2021-10-28 10:13] LABS: Cortisol Baseline 6.91 ug/dL
== END 2022-01-26 23:59 | disposition home or self-care (01) ==
LOC: ANHVASCINF 07:37
PROVIDERS: PCP Internal Medicine; Visit Provider Nurse Practitioner
DX: R94.7 Abnormal results of other endocrine function studies (principal)
CPT/HCPCS: 36415; 82533; 96372; J0834

== ENCOUNTER 2022-01-08 14:07 | Emergency (ER) | payer MEDICARE, BC, SELFPAY ==
--- NOTE | ~2022-01-08 | CT_ITS ---
EXAMINATION: CT abdomen pelvis wo con DATE: 01/08/2022 14:39 INDICATION: known stones, L flank/abd pain, unable to urinate TECHNIQUE: Computed tomography (CT) of the abdomen and pelvis was performed without intravenous contr ast. Automated exposure control and iterative reconstruction technique were employed. The dose-length product was 356.70 mGy-cm. COMPARISON: 09/13/2021. FINDINGS: Lower thorax: Unremarkable Liver: Normal. Biliary/Gallbladder: Gallbladder is normal. No bile duct dilation. Pancreas: No mass or duct dilation. Spleen: Normal. Adrenals:No mass. Kidneys: Multiple bilateral nephroliths. No suspicious mass or hydronephrosis. GI tract: Gastric bypass surgery. Mid small bowel anastomosis, with similar dilation at the site of a nastomosis but no proximal dilation or wall thickening. Fecalized contents in the small bowel. No sma ll or large bowel dilation. Surgically absent appendix. Minimal diverticulosis without diverticulitis . Mesentery/Peritoneum: No ascites, mass, or free air. Edema within the mid mesentery roughly at the si te of the small bowel anastomosis. Retroperitoneum: No mass. Pelvis: Pelvic organs are within normal limits. No bladder stone. No distal ureteral stone. Multiple phleboliths. Soft Tissues: Soft tissues and body wall unremarkable. Bones: No acute osseous finding. IMPRESSION: Bilateral nephrolithiasis without evidence of obstructive uropathy. CT findings may suggest mesenteri c edema with decreased small bowel transit time, possibly secondary to enteritis in the appropriate c linical context. Reviewed, dictated and finalized at location K. [employer]ING IMPRESSION: Bilateral nephrolithiasis without evidence of obstructive uropathy. CT findings may suggest mesenteric edema with decreased small bowel transit time, possibly secondary to enteritis in the appropriate clinical context.
[2022-01-08 14:08] VITALS: BP 140/78; PULSE 82; RESP 16; TEMP 36.2; O2SAT 100
--- NOTE | 2022-01-08 14:23 | ED.ABDPAIN ---
HPI - Abdominal Pain General Chief Complaint: Abdominal Pain Stated Complaint: left flank pain, unable to urinate Time Seen by Provider: 01/08/22 14:11 Source: patient Mode of arrival: ambulatory Limitations: no limitations History of Present Illness HPI narrative: Patient is a 61-year-old female, with a known history of bilateral kidney stones, who presents the ED with report of left flank and abdominal pain. Patient reports the pain began around 10 AM this morning and was intermittent at first. States pain feels similar to previous stones. She began having trouble urinating, which prompted her presentation. She did have a small amount of hematuria this morning. Patient reports nausea, denies vomiting. Denies fever, diarrhea, constipation. Patient sees Dr. Her. Related Data Home Medications Medication Instructions Recorded Confirmed aspirin 81 mg tablet,delayed 81 mg PO WEEKLY 04/24/19 07/09/20 release (Aspir-Low) bupropion HCl 150 mg tablet,12 hr 150 mg PO BID 04/24/19 07/09/20 sustained-release levothyroxine 88 mcg tablet 88 mcg PO QAM 04/24/19 07/09/20 pnrvvwzh-ojcihcaj-pbds 45 mg-folic 1 cap PO HS 04/24/19 07/09/20 acid 800 mcg-vit K 120 mcg capsule (Bariatric Multivitamins) pravastatin 80 mg tablet 40 mg PO HS 04/24/19 07/09/20 sertraline 100 mg tablet 100 mg PO BID 04/24/19 07/09/20 tizanidine 4 mg tablet 4 mg PO HS 04/24/19 07/09/20 zolpidem 10 mg tablet 10 mg PO HS 04/24/19 07/09/20 Ventolin HFA 2 puff inhalation Q4-6H PRN Dyspnea 01/06/20 07/09/20 omeprazole 20 mg capsule,delayed 20 mg PO HS 01/06/20 07/09/20 release buspirone 10 mg tablet 20 mg PO BID 06/30/20 07/09/20 hydrocodone 5 mg-acetaminophen 325 1 tablet PO Q4H PRN Pain 06/30/20 07/09/20 mg tablet Allergies Allergy/AdvReac Type Severity Reaction Status Date / Time meperidine [From Demerol] Allergy Severe Hives Verified 07/02/21 05:41 levofloxacin [From Levaquin] AdvReac Intermediate INFLAMED Verified 07/02/21 05:41 TENDONS adhesive tape AdvReac Blister Verified 07/02/21 05:41 codeine AdvReac Hives Verified 07/02/21 05:41 gabapentin AdvReac CAUSED Verified 07/02/21 05:41 HAIR TO FALL OUT pregabalin [From Lyrica] AdvReac Swelling - Verified 07/02/21 05:41 HANDS & FEET Review of Systems Review of Systems: CONSTITUTIONAL: Denies fever, chills, or sweats. CARDIOVASCULAR: Denies chest pain. RESPIRATORY: Denies dyspnea. GASTROINTESTINAL: Reports nausea, left-sided abdominal pain. Denies constipation, vomiting, or diarrhea. GENITOURINARY: Reports hematuria, difficulty urinating. Denies dysuria. SKIN: Denies rash or itching. MUSCULOSKELETAL: Reports left flank pain. All systems reviewed & are unremarkable except as noted in HPI and below PMFSH Past Medical History Medical History Anxiety Asthma Chronic lung disease Chronic pain syndrome CVA (cerebral vascular accident) Fibromyalgia Hyperlipidemia Hypothyroid Kidney stones Surgical History Surgical History H/O lithotripsy Family History Family History Sibling Family history of rheumatoid arthritis Mother Family history of lung cancer Social History Social History Smoking status: Never smoker Second hand tobacco smoke exposure: No Alcohol intake: never Substance use: never Substance use type: does not use Additional living arrangements comments: Gender identity (if verbalized by the patient): Female Spiritual care concerns: No Exam Narrative: GENERAL: Well appearing, obese, non-toxic, in mild acute distress due to pain. HEAD: Normocephalic, atraumatic. NECK: Supple. No adenopathy, no masses. RESPIRATORY: Airway patent, respirations nonlabored. Clear to auscultation bilat
[2022-01-08] MEDS: HYDROmorphone HCL INJ (*CRX) 1 MG/ML SYR IV PUSH (14:24)
[2022-01-08] MEDS: ONDANSETRON INJ 4 MG/2 ML VIAL IV PUSH (14:26)
[2022-01-08] MEDS: SODIUM CHLORIDE 0.9% IV 1,000 ML 999 ML IV CONT (14:27)
[2022-01-08 14:46] LABS: Basophils Absolute Auto 0.1 K/mm3 (0.0-0.1); Basophils Percent Auto 0.8 % (0.2-1.2); Eosinophils Absolute Auto 0.1 K/mm3 (0-0.3); Eosinophils Percent Auto 1.3 % (0-4.4); Hematocrit 42.4 % (37.0-47.0); Hemoglobin 14.3 g/dL (12.0-15.0); Immature Granulocyte Absolute 0.02 K/mm3 (0.00-0.031); Immature Granulocyte Percent A 0.3 % (0-0.5); Lymphocytes Absolute Auto 1.81 K/mm3 (0.9-3.2); Lymphocytes Percent Auto 30.5 % (18.3-44.2); Mean Corpuscular HGB Conc 33.7 g/dl (32-36); Mean Corpuscular Volume 100.7 fl (80-100); Mean Platelet Volume 9.8 fl (7.4-10.4); Monocytes Absolute Auto 0.5 K/mm3 (0.1-0.6); Monocytes Percent Auto 9.1 % (2.6-8.5); Neutrophils Absolute Auto 3.4 K/mm3 (1.3-6.7); Platelet Count Result 183 k/mm3 (150-375); Red Blood Count 4.21 M/mm3 (4.2-5.4); Red Cell Distribution Width 11.9 % (11.5-14.5); White Blood Count 5.9 K/mm3 (4.5-10.0)
[2022-01-08 15:34] LABS: Alanine Aminotransferase 45 U/L (6-35); Albumin Level 4.1 g/dL (3.5-5.1); Alkaline Phosphatase 101 U/L (38-126); Anion Gap 3 mmol/L (8-16); Aspartate Amino Transferase 44 U/L (14-36); Bilirubin,Total 0.4 mg/dL (0.2-1.3); Blood Urea Nitrogen 22 mg/dL (7-17); Calcium 8.6 mg/dL (8.4-10.2); Carbon Dioxide 31 mmol/L (22-30); Chloride 101 mmol/L (98-107); Estimated CRCL calculation 75 ml/min; Estimated Glomerular Filt Rate > 60; Glucose 107 mg/dL (65-110); Lipase 113 U/L (23-300); Sodium 135 mmol/L (137-145)
[2022-01-08 15:39] VITALS: BP 144/82; PULSE 88; RESP 16; O2SAT 98
[2022-01-08 15:52] LABS: Appearance Urine Cloudy (Clear); Bilirubin Urine 1+ (Negative); Blood Urine 3+ (Negative); Color Urine Yellow (Yellow); Glucose Urine UA Negative (Negative); Ketones Urine Negative (Negative); Leukocyte Esterase Ur Negative LEU/UL (Negative); Nitrate Urine Negative (Negative); Protein Urine 2+ mg/dL (Negative)
[2022-01-08 15:56] LABS: Mucus Urine Rare /lpf; RBC Urine >75 /hpf (0-2); WBC Urine 0-3 /hpf
[2022-01-08 15:58] LABS: Add Urine Microscopic? YES
[2022-01-08 17:51] VITALS: BP 134/76; PULSE 86; RESP 16; O2SAT 99
== END 2022-01-08 17:52 | disposition home or self-care (01) ==
PROVIDERS: Emergency Provider Physician Assistant; PCP Internal Medicine
DX: N20.0 Calculus of kidney (principal); R31.9 Hematuria, unspecified; J45.909 Unspecified asthma, uncomplicated; E78.5 Hyperlipidemia, unspecified; E03.9 Hypothyroidism, unspecified; G89.4 Chronic pain syndrome; F41.9 Anxiety disorder, unspecified; Z86.73 Personal history of transient ischemic attack (TIA), and cerebral infarction without residual deficits; Z87.442 Personal history of urinary calculi; Z79.82 Long term (current) use of aspirin; R93.3 Abnormal findings on diagnostic imaging of other parts of digestive tract
CPT/HCPCS: 36415; 51701; 74176; 80053; 81001; 83690; 85025; 96361; 96374; 96375; 99284; J1170; J2405; J7030

== ENCOUNTER 2022-03-03 10:17 | Outpatient (CLI) | payer MEDICARE, BC, SELFPAY ==
--- NOTE | ~2022-03-03 | XR_ITS ---
EXAMINATION: CT abdomen pelvis wo con, XR abdomen/kub 1V DATE: 03/03/2022 10:39 INDICATION: Bilateral renal stones TECHNIQUE: 1. Computed tomography (CT) of the abdomen and pelvis was performed without intravenous contrast. Aut omated exposure control and iterative reconstruction technique were employed. The dose-length product was 278.57 mGy-cm. 2. AP view of the abdomen and pelvis was obtained on 2 radiographs. COMPARISON: 01/08/2022 FINDINGS: CT: Lung bases are clear. Heart size is normal. No pericardial or pleural effusion. Postoperative change of prior likely Judy-en-Y gastric bypass procedure with antecolic Judy limb and jejunojejunal anastom osis in the anterior mid abdomen. No bowel obstruction. Appendix is not visualized with surgical clip s near the tip the cecum suggesting prior appendectomy with no pericecal inflammatory stranding to gilliam ggest acute appendicitis. Liver, gallbladder, spleen, pancreas and bilateral adrenal glands are mu l. Bilateral nephrolithiasis with three nonobstructing left renal stones, the largest measuring 2-3 m m and five stones in the right kidney measuring up to 5 mm. Approximately 1 cm cyst at the upper pole of the left kidney. No evident ureteral stones. Unchanged pattern of phleboliths in the pelvis. Blad mariama is normal. The uterus is not identified and has likely been surgically resected. No free intraper itoneal gas or fluid. Mild to moderate degenerative skeletal changes in the lumbar spine and bilatera l hips. There are bridging osteophytes at multiple levels in the thoracic spine consistent with diffu se idiopathic skeletal hyperostosis (DISH). There are few small heterotopic ossifications in the subc utaneous fat at the bilateral flanks. KUB: Couple of the larger stones at the lower pole of the right kidney can be seen on the plain radiograph s. Remaining smaller stones are unable to be differentiated from the superimposed mild pattern of col onic stool. Unchanged pattern of small phleboliths in the pelvis. Also unchanged are linear oriented subcutaneous heterotopic ossicles projecting over the right iliac crest. IMPRESSION: 1. Bilateral nonobstructing nephrolithiasis. Reviewed, dictated and finalized at location B. RIAL EXPEDITOR IMPRESSION: 1. Bilateral nonobstructing nephrolithiasis.
== END 2022-03-03 10:18 | disposition home or self-care (01) ==
PROVIDERS: PCP Internal Medicine; Visit Provider Urology
DX: N20.0 Calculus of kidney (principal)
CPT/HCPCS: 74018; 74176

== ENCOUNTER 2022-05-03 12:26 | Emergency (ER) | payer MEDICARE, BC, SELFPAY ==
--- NOTE | ~2022-05-03 | XR_ITS ---
XR chest 2V DATE: 05/03/2022 13:31 INDICATION: Cough, congestion, wheezing TECHNIQUE: 2 views COMPARISON: None FINDINGS: Status post lower anterior cervical spine surgical fusion. There is minimal dextroscoliosis of the thoracic and lumbar spine. There is degenerative spurring of the thoracic and lumbar spine. Normal heart size. No hilar or mediastinal enlargement. No pulmonary infiltrate or consolidation, pleural effusion or pulmonary vascular congestion or pneumo thorax. IMPRESSION: No active cardiopulmonary disease Reviewed, dictated and finalized at location B.
[2022-05-03 12:39] VITALS: BP 109/51; PULSE 73; RESP 18; TEMP 36.8; O2SAT 99
--- NOTE | 2022-05-03 13:16 | ED.URI ---
HPI - URI/Sore Throat General Chief Complaint: Upper Respiratory Infection Stated Complaint: Cough/Congestion Time Seen by Provider: 05/03/22 13:10 Source: patient, RN notes reviewed and old records reviewed Mode of arrival: ambulatory Limitations: no limitations History of Present Illness HPI Narrative: 62 year old female who presents to express care of coughing congestion for the past 2 weeks with some shortness of breaths some expectoration of yellow mucus.Patient reports that she is fatigued, some body aches has not had fever. Patient reports that she is taking Cefdinir that was prescribed, today last dose.Patient reports that she has been COVID vaccinated and had flu shot,did have COVID test last week that was negative.Patient has been taking Mucinex DM nighttime cold medication MD elicited complaint: cough, rhinorrhea, nasal congestion and other (wheezing, some dyspnea) Pertinent past history: other (chronic bronchitis) Onset (ago): week(s) (2) Pain scale (0-10): 7 Description of mucous: yellow Treatments prior to arrival: antibiotics and other (Mucinex DM, ORC nighttime cold med) Related Data Home Medications Medication Instructions Recorded Confirmed acarbose 25 mg tablet 25 mg PO TID 05/03/22 05/03/22 albuterol sulfate 90 mcg/actuation See Rx Instructions .Route 05/03/22 05/03/22 aerosol inhaler .COMPLEX PRN sob aspirin 81 mg capsule 81 mg PO DAILY 05/03/22 05/03/22 bupropion HCl 300 mg 24 hr tablet, 300 mg PO QAM 05/03/22 05/03/22 extended release (Wellbutrin XL) cefdinir 300 mg capsule See Rx Instructions .Route .COMPLEX 05/03/22 05/03/22 cholecalciferol (vitamin D3) 25 25 mcg PO DAILY 05/03/22 05/03/22 mcg (1,000 unit) tablet copper gluconate 2 mg tablet 3 mg PO DAILY 05/03/22 05/03/22 cyclobenzaprine 10 mg tablet 10 mg PO BID PRN spasms 05/03/22 05/03/22 duloxetine 30 mg capsule,delayed 30 mg PO DAILY 05/03/22 05/03/22 release estradiol 0.01% (0.1 mg/gram) 1 g vaginal 2XW 05/03/22 05/03/22 vaginal cream eszopiclone 3 mg tablet 3 mg PO HS 05/03/22 05/03/22 hydrochlorothiazide 12.5 mg tablet 12.5 mg PO DAILY 05/03/22 05/03/22 levothyroxine 88 mcg tablet 88 mcg PO DAILY 05/03/22 05/03/22 ashoizyu-eviepjbj-ladm 45 mg-folic 1 cap PO DAILY 05/03/22 05/03/22 acid 800 mcg-vit K 120 mcg capsule (Bariatric Multivitamins) pravastatin 80 mg tablet 80 mg PO DAILY 05/03/22 05/03/22 Allergies Allergy/AdvReac Type Severity Reaction Status Date / Time meperidine [From Demerol] Allergy Severe Hives Verified 05/03/22 12:46 levofloxacin [From Levaquin] AdvReac Intermediate INFLAMED Verified 05/03/22 12:46 TENDONS adhesive tape AdvReac Blister Verified 05/03/22 12:46 codeine AdvReac Hives Verified 05/03/22 12:46 gabapentin AdvReac CAUSED Verified 05/03/22 12:46 HAIR TO FALL OUT pregabalin [From Lyrica] AdvReac Swelling - Verified 05/03/22 12:46 HANDS & FEET Review of Systems Review of Systems: CONSTITUTIONAL: Denies fever, chills, or sweats. EYES: Denies visual changes, redness, or discharge. ENT: Reports rhinorrhea, congestion, sore throat, or otalgia. CARDIOVASCULAR: Denies chest pain, palpitations, or edema. RESPIRATORY: Reports cough or dyspnea. GASTROINTESTINAL: Denies abdominal pain, nausea, vomiting, or diarrhea. GENITOURINARY: Denies dysuria or hematuria. SKIN: Denies rash or itching. MUSCULOSKELETAL:cervical back pain, joint pain,reports myalgia. NEUROLOGIC: Denies headache, numbness, or weakness. PSYCHIATRIC: Denies anxiety or depression. All systems reviewed & are unremarkable except as noted in HPI and below PMFSH Past Medical History Medical History (Updated 05/04/22 @ 20:58 by Awilda Sosa NP) Anxiety Asthma Chronic lung disease Chronic pain syndrome CVA (cerebral vascular accident) Fibromyalgia Hyperlipidemia Hypothyroid Kidney stones Surgical History Surgical History (Updated 05/04/22 @ 20:58 by Awilda Sosa NP) Gastric bypass status for obesi
== END 2022-05-03 13:55 | disposition home or self-care (01) ==
PROVIDERS: Emergency Provider Registered Nurse; PCP Internal Medicine
DX: J40 Bronchitis, not specified as acute or chronic (principal); J45.909 Unspecified asthma, uncomplicated; M79.7 Fibromyalgia; E78.5 Hyperlipidemia, unspecified; E89.0 Postprocedural hypothyroidism; Z86.73 Personal history of transient ischemic attack (TIA), and cerebral infarction without residual deficits; Z98.84 Bariatric surgery status; F41.9 Anxiety disorder, unspecified
CPT/HCPCS: 71046; 99213; G0463

== ENCOUNTER 2022-05-08 11:54 | Outpatient (CLI) | payer MEDICARE, BC, SELFPAY ==
--- NOTE | ~2022-05-08 | XR_ITS ---
EXAMINATION: XR abdomen/kub 1V INDICATION: Bilateral kidney stones TECHNIQUE: Supine views of the abdomen were obtained on 2 radiographs. COMPARISON: 03/03/2022 FINDINGS: Stones measuring 5 mm and 3 mm project in the right kidney. Multiple additional stones of t he right kidney are noted on the comparison CT which are obscured by bowel contents on the radiograph s. In addition, known left nephrolithiasis is obscured by bowel contents. There are phleboliths of th e pelvis. A moderate volume of colonic stool is present. A suture line is noted in the left lower abd omen. The visualized lung bases are clear. IMPRESSION: 1. Right nephrolithiasis without significant change. Reviewed, dictated and finalized at location B.
== END 2022-05-08 11:55 | disposition home or self-care (01) ==
LOC: ANHIMG 11:57
PROVIDERS: PCP Internal Medicine; Visit Provider Urology
DX: N20.0 Calculus of kidney (principal)
CPT/HCPCS: 74018

== ENCOUNTER 2022-06-12 14:41 | Outpatient (CLI) | payer MEDICARE, BC, SELFPAY ==
--- NOTE | ~2022-06-12 | XR_ITS ---
XR abdomen/kub 1V 06/12/2022 15:10 INDICATION: Bilateral renal stones TECHNIQUE: KUB COMPARISON: Comparison to multiple prior studies sequentially, with oldest reviewed study dated 09/13/2021. FINDINGS: Bowel gas pattern is normal. There is no evidence of free air, mass, organomegaly, ascites or obstruction.. There is a calcification of the right mid abdomen, or consistent with renal stone. Postsurgical changes in the left abdomen. There are pelvic phleboliths. The bones appear intact. IMPRESSION: 1: Right nephrolithiasis. Reviewed, dictated and finalized at location B. IMPRESSION: 1: Right nephrolithiasis.
== END 2022-06-12 14:42 | disposition home or self-care (01) ==
PROVIDERS: PCP Internal Medicine; Visit Provider Urology
DX: N20.0 Calculus of kidney (principal)
CPT/HCPCS: 74018

== ENCOUNTER 2022-06-16 06:50 | Outpatient (CLI) | payer MEDICARE, BC, SELFPAY ==
--- NOTE | ~2022-06-16 | CT_ITS ---
Non-contrast CT scan of the Abdomen and Pelvis Clinical indication: Kidney stones Technique: 2.5 mm axial scans were obtained through the abdomen and pelvis without intravenous or or al contrast. Dose reduction technique was used on this scan by utilizing automated exposure control a nd iterative reconstruction technique. The dose-length product (DLP) was 290.74 mGy-cm. COMPARISON: 03/03/2022 Findings: Images through the lung bases reveal no abnormalities. There are nonobstructing right renal stones, measuring up to 6 mm in maximal diameter. There is a 3 m m nonobstructing left renal stone. No ureteral stone or hydronephrosis seen on either side. The liver, spleen, pancreas, gallbladder, and adrenals appear normal. There is no aortic aneurysm. There is no evidence of bowel obstruction. There is evidence of prior bariatric surgery. Images through the pelvis were performed. There is no evidence of ascites or lymphadenopathy. Urinary bladder unremarkable. No pelvic mass evident. Patient appears to be post hysterectomy. Impression: Small bilateral nonobstructing renal stones, as detailed above. Reviewed, dictated and finalized at location M. Impression: Small bilateral nonobstructing renal stones, as detailed above.
== END 2022-06-16 06:51 | disposition home or self-care (01) ==
LOC: ANHIMG 06:54
PROVIDERS: PCP Internal Medicine; Visit Provider Nurse Practitioner Adult Health
DX: N20.0 Calculus of kidney (principal)
CPT/HCPCS: 74176

== ENCOUNTER 2022-06-21 08:00 | Outpatient (CLI) | payer MEDICARE, BC, SELFPAY ==
--- NOTE | 2022-06-21 08:00 | ECG_ITS ---
Measurements Intervals Maud Rate: 61 P: 58 MN: 161 QRS: 30 QRSD: 78 T: 45 QT: 390 QTc: 396 Interpretive Statements SINUS RHYTHM VOLTAGE CRITERIA FOR LVH BORDERLINE ECG COMPARED TO ECG 07/06/2020 08:13:19 NO SIGNIFICANT CHANGES Electronically Signed On 06-21-2022 9:43:02 CDT by Fadi Ramos D.O.
[2022-06-21 08:49] LABS: Anion Gap 3 mmol/L (8-16); Blood Urea Nitrogen 19 mg/dL (7-17); Calcium 8.7 mg/dL (8.4-10.2); Carbon Dioxide 37 mmol/L (22-30); Chloride 101 mmol/L (98-107); Estimated Glomerular Filt Rate > 60; Glucose 80 mg/dL (65-110); Potassium 3.2 mmol/L (3.4-5.0); Sodium 141 mmol/L (137-145)
[2022-06-21 08:52] LABS: Prothrombin Time 13.3 Seconds (11.1-14.7)
[2022-06-21 08:53] LABS: Partial Thromboplastin Time 26.9 SECONDS (22.3-36.8)
[2022-06-21 09:33] LABS: Appearance Urine Clear (Clear); Bacteria Urine None Seen /hpf; Bilirubin Urine Negative (Negative); Blood Urine Trace (Negative); Calcium Oxalate Crystals Urine Present /hpf; Color Urine Dark Yellow (Yellow); Glucose Urine UA Negative (Negative); Ketones Urine Negative (Negative); Leukocyte Esterase Ur Negative LEU/UL (Negative); Nitrate Urine Negative (Negative); Non Pathogenic Casts 0-2; Protein Urine Trace mg/dL (Negative); Specific Grav Ur 1.027 (1.001-1.035); Squamous Epithelial Cell Urine None seen /hpf (Few); WBC Urine 0-5 /hpf; pH Urine 5.5 (5.0-9.0)
[2022-06-21 09:36] LABS: Add Urine Microscopic? YES
== END 2022-06-21 08:01 | disposition home or self-care (01) ==
LOC: ANHSURGERY 08:05
PROVIDERS: Anesthesiology; PCP Internal Medicine; Visit Provider Urology
DX: N20.0 Calculus of kidney (principal); E78.5 Hyperlipidemia, unspecified; K75.81 Nonalcoholic steatohepatitis (NASH); R94.31 Abnormal electrocardiogram [ECG] [EKG]; Z79.899 Other long term (current) drug therapy
CPT/HCPCS: 36415; 80048; 81001; 85610; 85730; 93005

== ENCOUNTER 2022-06-23 02:10 | Day surgery (SDC) | payer MEDICARE, BC, SELFPAY ==
[2022-06-20 09:29] VITALS: BMI 33.1
--- NOTE | 2022-06-20 09:38 | PC.NURSE ---
Report to the Outpatient Waiting Room, entrance under the green pavilion located off [facility], at time 12:30 on date 06/23/22. Planned Procedure Time: 2:30. Time changes happen often and if your time is changed the preop area will call you the afternoon before. - You and your visitor will be asked to self-screen and do not enter if you have any COVID symptoms. - A mask is optional within the hospital at this time. Patients may have clear liquids (water, carbonated beverages, clear teas, apple juice) until 3 hours prior to surgery (11:30) with a maximum of 20 ounces. - No food from midnight until time of surgery Take the following medications with a SIP of water the morning of surgery: INHALER IF NEEDED, WELLBUTRIN, BUSPAR, CYMBALTA, LEVOTHYROXINE DO NOT STOP ANY OF YOUR OTHER PRESCRIPTION MEDICATIONS PRIOR TO SURGERY EXCEPT THE FOLLOWING Medications to discontinue per physician: VITAMINS/SUPPLEMENTS Date to take last dose: NO MORE UNTIL AFTER SURGERY Please no make-up, nail frisian, hairspray, perfume, deodorant, or body powder the day of surgery. No jewelry (including any body piercings) or valuables the day of surgery, leave them at home. Please take a shower or bath the night before, or the morning of, surgery with an antibacterial soap. Wear comfortable, loose fitting clothing. - Jewelry must be removed prior to entering the operating room. Rings and piercings that are not removed may be cut off. - The hospital will not accept responsibility for valuables. - Please leave all valuables, including medications, at home the day of surgery. If you are going home after surgery, a licensed driver education road instructor must drive you home. - NO public transportation without another adult if you receive anesthesia. - We recommend that an adult stay with you for 24 hours following discharge. - We also recommend that you do not drive, make important decision, drink alcoholic beverages, or take any drugs that were not prescribed by your health care provider for at least 24 hours after your discharge time. Follow any additional instructions given to you from your surgeon. If you or anyone in your household have experienced Covid symptoms in the past week, please notify your surgeon or the nurse liaison at the phone number below for possible testing. Telephone instructions given to PT - OMAR GRESHAM and asked if any additional questions and then verbalized understanding. Patient advised to call surgeon office or pre surgery nurse liaison [phone] if any additional questions.
--- NOTE | 2022-06-22 09:39 | WPDANESEPPF ---
Anes - Initial Pre Proc Eval Procedure: Operation Date: 06/23/22 13:30 Proposed Procedures p Right Extracorporeal Shock Wave Lithotripsy - Pj Sepulveda MD Date/Time: 06/22/22 09:39 Surgeon: Pj Sepulveda MD Pre Op Diagnosis: bilateral kidney stones Patient Data Age: 62 Gender: F Height: 1.61 m Weight: 86.2 kg Allergies Allergy/AdvReac Type Severity Reaction Status Date / Time meperidine [From Demerol] Allergy Severe Hives Verified 06/23/22 12:07 levofloxacin [From Levaquin] AdvReac Intermediate INFLAMED Verified 06/23/22 12:07 TENDONS adhesive tape AdvReac Blister Verified 06/23/22 12:07 codeine AdvReac Hives Verified 06/23/22 12:07 gabapentin AdvReac CAUSED Verified 06/23/22 12:07 HAIR TO FALL OUT pregabalin [From Lyrica] AdvReac Swelling - Verified 06/23/22 12:07 HANDS & FEET Home Medications Medication Instructions Recorded Confirmed Type acarbose 25 mg tablet 25 mg PO TID 05/03/22 06/20/22 History albuterol sulfate 90 mcg/actuation 2 puff inhalation QID PRN 05/03/22 06/20/22 Rx aerosol inhaler shortness of breath or wheezing #8.5 grams aspirin 81 mg capsule 81 mg PO WEEKLY 05/03/22 06/20/22 History bupropion HCl 300 mg 24 hr tablet, 300 mg PO QAM 05/03/22 06/20/22 History extended release (Wellbutrin XL) cholecalciferol (vitamin D3) 25 25 mcg PO DAILY 05/03/22 06/20/22 History mcg (1,000 unit) tablet copper gluconate 2 mg tablet 3 mg PO DAILY 05/03/22 06/20/22 History cyclobenzaprine 10 mg tablet 10 mg PO BID PRN spasms 05/03/22 06/20/22 History duloxetine 30 mg capsule,delayed 30 mg PO DAILY 05/03/22 06/20/22 History release estradiol 0.01% (0.1 mg/gram) 1 g vaginal 2XW 05/03/22 06/20/22 History vaginal cream eszopiclone 3 mg tablet 3 mg PO HS 05/03/22 06/20/22 History hydrochlorothiazide 12.5 mg tablet 12.5 mg PO DAILY 05/03/22 06/20/22 History levothyroxine 88 mcg tablet 88 mcg PO DAILY 05/03/22 06/20/22 History gnmcigly-nczsjolt-obez 45 mg-folic 1 cap PO DAILY 05/03/22 06/20/22 History acid 800 mcg-vit K 120 mcg capsule (Bariatric Multivitamins) pravastatin 80 mg tablet 80 mg PO DAILY 05/03/22 06/20/22 History buspirone 30 mg tablet 30 mg PO BID 06/20/22 06/20/22 History Patient hx anesthesia problems: none Family hx anesthesia problems: none Results Review: All pre-operative results and documents have been reviewed as part of the pre-operative evaluation. [facility] Past Medical History Medical History (Updated 06/22/22 @ 09:40 by Luís Arevalo DO) Anxiety Asthma Chronic lung disease Chronic pain syndrome Chronic, continuous use of opioids CVA (cerebral vascular accident) Fibromyalgia Hyperlipidemia Hypothyroid Kidney stones [place] (nonalcoholic steatohepatitis) [place] (obstructive sleep apnea) Surgical History Surgical History (Updated 05/04/22 @ 20:58 by Awilda Sosa NP) Gastric bypass status for obesity H/O cataract removal with insertion of prosthetic lens H/O lithotripsy H/O thyroidectomy H/O: hysterectomy Hx of appendectomy Hx of cervical spine surgery Family History Family History Sibling Family history of rheumatoid arthritis Mother Family history of lung cancer Social History Social History (Updated 05/04/22 @ 20:53 by Awilda Sosa NP) Smoking status: Never smoker Second hand tobacco smoke exposure: No Alcohol intake: never Substance use: never Substance use type: does not use Living arrangements: with family Additional living arrangements comments: Gender identity (if verbalized by the patient): Female Spiritual care concerns: No Anes - Eval Final PreProcedure Day of Procedure 06/22/22 09:39 Patient weight: obese Heart: regular rate and rhythm Lungs: clear to auscultation Airway: Mallampati scale class II Neurological: alert and oriented Last oral intake: >/= 8 hours ASA classif
[2022-06-23] VITALS (7 sets, daily range): BP systolic 126–160; BP diastolic 60–77; PULSE 60–67; RESP 11–18; TEMP 36.3–36.5; O2SAT 97–100
--- NOTE | ~2022-06-23 | XR_ITS ---
XR abdomen/kub 1V 06/23/2022 10:51 Indication: Preop ESWL Procedure: KUB Comparison: Comparison to multiple prior studies sequentially, with oldest reviewed study dated 09/2021. Findings: Moderate colonic fecal loading. Mildly dilated small bowel left and central abdomen. There is a calcification overlying the right kidney, consistent with renal stone. There are pelvic phleboli ths. Impression: 1: Nonspecific bowel gas pattern with mildly dilated small bowel which may be ileus or less likely pa rtial obstruction. 2: Right nephrolithiasis. Reviewed, dictated and finalized at location B. Impression: 1: Nonspecific bowel gas pattern with mildly dilated small bowel which may be i leus or less likely partial obstruction. 2: Right nephrolithiasis.
--- NOTE | 2022-06-23 06:52 | WPDHPUPDATE1 ---
History and Physical Update Update Date/Time: 06/23/22 06:52 History and Physical has been reviewed, including an updated exam of the patient. There are NO changes in the patient's condition. Risks, benefits, and alternatives have been discussed and questions answered. Patient agrees to proceed with procedure.
[2022-06-23] MEDS: LACTATED RINGERS 1,000 ML 30 ML IV CONT ×2 (12:06→14:45)
--- NOTE | 2022-06-23 12:21 | PM.HPGS ---
History of Present Illness History of Present Illness Consent: Risks, benefits, and alternatives have been discussed and questions answered. Patient agrees to proceed with procedure. Chief complaint: bilateral kidney stones Narrative: Tiffanie Ruiz is a 62 year old female Who is a recurrent stone former with a known prior history of hyperparathyroidism. Recent follow-up imaging demonstrates stones in her right kidney after a 6 mm. She has had no significant flank pain hematuria fevers chills or other obvious symptoms of the stones. Despite that, after discussion, she has elected to proceed with right ESWL. She is aware the risk including, but not limited to, adverse cardiopulmonary events perinephric hematoma and need for additional procedures. Review of Systems Cardiovascular: Cardiovascular: Denies chest pain, Denies lightheadedness, Denies palpitations and Denies dyspnea Respiratory: Respiratory: Denies dyspnea Gastrointestinal: Gastrointestinal: Denies diarrhea, Denies nausea and Denies vomiting Genitourinary: Genitourinary: Denies hematuria and Denies dysuria Endocrine: Endocrine: Denies palpitations [facility] Past Medical History Medical History (Updated 06/23/22 @ 12:23 by Pj Sepulevda MD) Anxiety Asthma Chronic lung disease Chronic pain syndrome Chronic, continuous use of opioids CVA (cerebral vascular accident) Fibromyalgia Hyperlipidemia Hypothyroid Kidney stones MIDDLETON (nonalcoholic steatohepatitis) MEREDITH (obstructive sleep apnea) Surgical History Surgical History (Updated 05/04/22 @ 20:58 by Awilda Sosa NP) Gastric bypass status for obesity H/O cataract removal with insertion of prosthetic lens H/O lithotripsy H/O thyroidectomy H/O: hysterectomy Hx of appendectomy Hx of cervical spine surgery Family History Family History Sibling Family history of rheumatoid arthritis Mother Family history of lung cancer Social History Social History (Updated 05/04/22 @ 20:53 by Awilda Sosa NP) Smoking status: Never smoker Second hand tobacco smoke exposure: No Alcohol intake: never Substance use: never Substance use type: does not use Living arrangements: with family Additional living arrangements comments: Gender identity (if verbalized by the patient): Female Spiritual care concerns: No Meds Home Medications and Allergies Home Medications Medication Instructions Recorded Confirmed Type acarbose 25 mg tablet 25 mg PO TID 05/03/22 06/20/22 History albuterol sulfate 90 mcg/actuation 2 puff inhalation QID PRN 05/03/22 06/20/22 Rx aerosol inhaler shortness of breath or wheezing #8.5 grams aspirin 81 mg capsule 81 mg PO WEEKLY 05/03/22 06/20/22 History bupropion HCl 300 mg 24 hr tablet, 300 mg PO QAM 05/03/22 06/20/22 History extended release (Wellbutrin XL) cholecalciferol (vitamin D3) 25 25 mcg PO DAILY 05/03/22 06/20/22 History mcg (1,000 unit) tablet copper gluconate 2 mg tablet 3 mg PO DAILY 05/03/22 06/20/22 History cyclobenzaprine 10 mg tablet 10 mg PO BID PRN spasms 05/03/22 06/20/22 History duloxetine 30 mg capsule,delayed 30 mg PO DAILY 05/03/22 06/20/22 History release estradiol 0.01% (0.1 mg/gram) 1 g vaginal 2XW 05/03/22 06/20/22 History vaginal cream eszopiclone 3 mg tablet 3 mg PO HS 05/03/22 06/20/22 History hydrochlorothiazide 12.5 mg tablet 12.5 mg PO DAILY 05/03/22 06/20/22 History levothyroxine 88 mcg tablet 88 mcg PO DAILY 05/03/22 06/20/22 History imhukbmw-uguqclms-tjhw 45 mg-folic 1 cap PO DAILY 05/03/22 06/20/22 History acid 800 mcg-vit K 120 mcg capsule (Bariatric Multivitamins) pravastatin 80 mg tablet 80 mg PO DAILY 05/03/22 06/20/22 History buspirone 30 mg tablet 30 mg PO BID 06/20/22 06/20/22 History Allergies Allergy/AdvReac Type Severity Reaction Status Date / Time meperidine [From Demerol] Allergy Severe Hives Verified 06/23/22 1
[2022-06-23] MEDS: ceFAZolin 2 GM/D5W 50 ML 2 GM/50 ML BAG IVPB (13:31)
--- NOTE | 2022-06-23 13:46 | W.PM.PROC2 ---
Procedure Note - Detailed Date of Procedure 06/23/22 Pre-op Diagnosis Bilateral kidney stones Post-op Diagnosis Same Procedure Performed Right ESWL Surgeon Pj Sepulveda MD Anesthesia General Description of Procedure The patient was brought to the operative suite where she was placed in the supine position on the Dornier lithotripsy table. The focal point of the lithotripter was placed at a 6mm right lower poler calculus. A total of 2500 shocks were delivered at a power setting of 4. There appeared to be good fragmentation of the stone. The patient tolerated the procedure well and was taken to the recovery room in good condition. Urine Output 0 Drains No Packing No Pathology None sent Complications No immediate complications Condition Stable
[2022-06-23] MEDS: fentaNYL CITRATE INJ (*CRX) 100 MCG/2 ML VIAL 25 MCG IV PUSH ×2 (14:27→14:30)
[2022-06-23] MEDS: oxyCODONE HCL (*CRX) 5 MG TAB IR PO (15:22)
== END 2022-06-23 15:51 | disposition home or self-care (01) ==
PROVIDERS: PCP Internal Medicine; Visit Provider Urology
PROC: (CPT 50590; principal; 2022-06-23 13:30)
DX: N20.0 Calculus of kidney (principal); J45.909 Unspecified asthma, uncomplicated; E78.5 Hyperlipidemia, unspecified; E03.9 Hypothyroidism, unspecified
CPT/HCPCS: 50590; 74018; A9270; J0690; J1100; J2370; J2405; J2704; J3010; J7120

== ENCOUNTER 2022-07-07 11:12 | Outpatient (CLI) | payer MEDICARE, BC, SELFPAY ==
--- NOTE | ~2022-07-07 | XR_ITS ---
EXAMINATION: XR abdomen/kub 1V DATE: 07/07/2022 11:30 INDICATION: Kidney stone. TECHNIQUE: A supine view of the abdomen on 2 radiographs was obtained. COMPARISON: Abdomen radiographs 06/23/2022, CT abdomen and pelvis 06/16/2022 FINDINGS: There is a large volume of stool in the colon with distention of the rectum. There are phle boliths in the pelvis. There is a phlebolith in right ovarian vein. There are staple lines in left up per quadrant. IMPRESSION: 1. No visible urolithiasis. 2. Large volume of stool in the colon with distention of the rectum. Reviewed, dictated and finalized at location A.
== END 2022-07-07 11:13 | disposition home or self-care (01) ==
PROVIDERS: PCP Internal Medicine; Visit Provider Urology
DX: N20.0 Calculus of kidney (principal)
CPT/HCPCS: 74018

== ENCOUNTER 2022-11-01 13:18 | Outpatient (CLI) | payer MEDICARE, BC, SELFPAY ==
--- NOTE | ~2022-11-01 | XR_ITS ---
EXAMINATION: XR abdomen/kub 1V INDICATION: Bilateral kidney stones TECHNIQUE: Supine views of the abdomen were obtained on 2 radiographs. COMPARISON: 07/07/2022 FINDINGS: Bowel contents project over the kidneys limiting sensitivity for renal stones. No definite urolithiasis is identified. There are phleboliths of the pelvis. A phlebolith is also noted in the ri ght ovarian vein. There is mild osteoarthritis of the hips. Surgical changes are noted in the left up per quadrant. IMPRESSION: 1. No urolithiasis identified. Reviewed, dictated and finalized at location F.
== END 2022-11-01 13:19 | disposition home or self-care (01) ==
LOC: ANHIMG 13:24
PROVIDERS: PCP Internal Medicine; Visit Provider Nurse Practitioner Adult Health
DX: N20.0 Calculus of kidney (principal)
CPT/HCPCS: 74018

== ENCOUNTER 2023-06-21 15:50 | Outpatient (CLI) | payer MEDICARE, BC, SELFPAY ==
--- NOTE | ~2023-06-21 | XR_ITS ---
EXAMINATION: XR abdomen/kub 1V DATE: 06/21/2023 16:08 INDICATION: Left kidney stone. TECHNIQUE: A supine view of the abdomen on 2 radiographs was obtained. COMPARISON: Abdomen radiographs 11/01/2022, CT abdomen and pelvis 06/16/2022 FINDINGS: There are no dilated loops of bowel. There are phleboliths in the pelvis. There are staple lines in the abdomen. There is a 3 mm stone in right kidney. There is a phlebolith in right ovarian v ein. IMPRESSION: 1. 3 mm right kidney stone. Reviewed, dictated and finalized at location E. IMPRESSION: 1. 3 mm right kidney stone.
== END 2023-06-21 15:51 | disposition home or self-care (01) ==
LOC: ANHIMG 15:53
PROVIDERS: PCP Internal Medicine; Visit Provider Physician Assistant
DX: N20.0 Calculus of kidney (principal)
CPT/HCPCS: 74018

== ENCOUNTER 2023-07-16 08:00 | Outpatient (CLI) | payer MEDICARE, BC, SELFPAY ==
--- NOTE | 2023-07-16 08:00 | ECG_ITS ---
Test Date: 2023-07-16 08:32:05 Measurements Intervals [place] Rate: 70 P: 58 SD: 157 QRS: 26 QRSD: 81 T: 40 QT: 368 QTc: 398 Interpretive Statements SINUS RHYTHM NORMAL ELECTROCARDIOGRAM WARNING: DATA QUALITY MAY AFFECT INTERPRETATION No previous ECG available for comparison Electronically Signed On 07-16-2023 13:04:48 CDT by Tk Nino M.D.
[2023-07-16 09:16] LABS: Hematocrit 39.2 % (37.0-47.0); Hemoglobin 12.6 g/dL (12.0-15.0)
[2023-07-16 09:27] LABS: Prothrombin Time 13.6 Seconds (11.1-14.7)
[2023-07-16 09:28] LABS: Partial Thromboplastin Time 27.3 Seconds (22.3-36.8)
== END 2023-07-16 08:01 | disposition home or self-care (01) ==
LOC: ANHSURGERY 08:07
PROVIDERS: Anesthesiology; PCP Internal Medicine; Visit Provider Urology
DX: N20.0 Calculus of kidney (principal); E78.5 Hyperlipidemia, unspecified; D64.9 Anemia, unspecified; Z01.818 Encounter for other preprocedural examination
CPT/HCPCS: 36415; 85014; 85018; 85610; 85730; 87086; 93005

== ENCOUNTER 2023-07-20 00:18 | Day surgery (SDC) | payer MEDICARE, BC, SELFPAY ==
[2023-07-11 11:50] VITALS: BMI 34.2
--- NOTE | 2023-07-11 11:51 | PC.NURSE ---
Report to the Outpatient Waiting Room, entrance under the green pavilion located off [facility], at time _0630_ on date _[id number]_. Planned Procedure Time: _0830_. Time changes happen often and if your time is changed the preop area will call you the afternoon before. - You and your visitor will be asked to self-screen and do not enter if you have any COVID symptoms. - A mask is optional within the hospital at this time. Patients may have clear liquids (water, carbonated beverages, clear teas, apple juice) until 3 hours prior to surgery with a maximum of 20 ounces. - No food from midnight until time of surgery Take the following medications with a SIP of water the morning of surgery: __Bupropion, Buspirone, Cymbalta, and Levothyroxine DO NOT STOP ANY OF YOUR OTHER PRESCRIPTION MEDICATIONS PRIOR TO SURGERY ?EXCEPT THE FOLLOWING Medications to discontinue per physician ___All vitamins and supplements Date to take last [id number] Please no make-up, nail french, hairspray, perfume, deodorant, or body powder the day of surgery. No jewelry (including any body piercings) or valuables the day of surgery, leave them at home. Please take a shower or bath the night before, or the morning of, surgery with an antibacterial soap. Wear comfortable, loose fitting clothing. - Jewelry must be removed prior to entering the operating room. Rings and piercings that are not removed may be cut off. - The hospital will not accept responsibility for valuables. - Please leave all valuables, including medications, at home the day of surgery. If you are going home after surgery, a licensed pick up driver must drive you home. - NO public transportation without another adult if you receive anesthesia. - We recommend that an adult stay with you for 24 hours following discharge. - We also recommend that you do not drive, make important decision, drink alcoholic beverages, or take any drugs that were not prescribed by your health care provider for at least 24 hours after your discharge time. Follow any additional instructions given to you from your surgeon. If you or anyone in your household have experienced Covid symptoms in the past week, please notify your surgeon or the nurse liaison at the phone number below for possible testing. Telephone instructions given to __Tiffanie_and asked if any additional questions and then verbalized understanding. Patient advised to call surgeon office or pre surgery nurse liaison [phone] if any additional questions.
--- NOTE | ~2023-07-20 | XR_ITS ---
XR abdomen/kub 1V 07/20/2023 06:51 Indication: Renal stones pre lithotripsy Procedure: KUB Comparison: 07/07/2022 Findings: Large amount of retained fecal material and contrast present in the colon which obscures th e kidneys. There are calcifications in the right upper abdomen, suspicious for renal stones. Lung bas es unremarkable. There is moderate thoracic and lumbar spondylosis. Impression: 1: Possible right nephrolithiasis, although the kidneys are obscured by bowel content. Reviewed, dictated and finalized at location B. Impression: 1: Possible right nephrolithiasis, although the kidneys are obscured by bowel c ontent.
--- NOTE | 2023-07-20 06:23 | WPDHPUPDATE1 ---
History and Physical Update Update Date/Time: 07/20/23 06:23 History and Physical has been reviewed, including an updated exam of the patient. There are NO changes in the patient's condition. Risks, benefits, and alternatives have been discussed and questions answered. Patient agrees to proceed with procedure.
[2023-07-20 06:40] VITALS: BP 109/47; PULSE 68; RESP 18; TEMP 36.3; O2SAT 99; BMI 33.7
[2023-07-20] MEDS: LACTATED RINGERS 1,000 ML 30 ML IV CONT (07:30)
--- NOTE | 2023-07-20 08:17 | WPDANESEPPF ---
Anes - Initial Pre Proc Eval Procedure: Operation Date: 07/20/23 08:30 Proposed Procedures p Right Extracorporeal Shock Wave Lithotripsy - Pj Sepulveda MD Date/Time: 07/20/23 08:17 Surgeon: Pj Sepulveda MD Pre Op Diagnosis: Rt Renal Stone, Hematuria Patient Data Age: 63 Gender: F Height: 1.6 m Weight: 86.5 kg Allergies Allergy/AdvReac Type Severity Reaction Status Date / Time meperidine [From Demerol] Allergy Severe Hives Verified 07/20/23 07:20 levofloxacin [From Levaquin] AdvReac Intermediate INFLAMED Verified 07/20/23 07:20 TENDONS adhesive tape AdvReac Blister Verified 07/20/23 07:20 codeine AdvReac Hives Verified 07/20/23 07:20 gabapentin AdvReac CAUSED Verified 07/20/23 07:20 HAIR TO FALL OUT pregabalin [From Lyrica] AdvReac Swelling - Verified 07/20/23 07:20 HANDS & FEET Home Medications Medication Instructions Recorded Confirmed Type acarbose 25 mg tablet 25 mg PO TID 05/03/22 07/11/23 History albuterol sulfate 90 mcg/actuation 2 puff inhalation QID PRN 05/03/22 07/11/23 Rx aerosol inhaler shortness of breath or wheezing #8.5 grams aspirin 81 mg capsule 81 mg PO WEEKLY 05/03/22 07/11/23 History bupropion HCl 300 mg 24 hr tablet, 300 mg PO QAM 05/03/22 07/11/23 History extended release (Wellbutrin XL) cholecalciferol (vitamin D3) 25 25 mcg PO DAILY 05/03/22 07/11/23 History mcg (1,000 unit) tablet copper gluconate 2 mg tablet 3 mg PO DAILY 05/03/22 07/11/23 History cyclobenzaprine 10 mg tablet 10 mg PO BID PRN spasms 05/03/22 07/11/23 History duloxetine 30 mg capsule,delayed 30 mg PO DAILY 05/03/22 07/11/23 History release estradiol 0.01% (0.1 mg/gram) 1 g vaginal 2XW 05/03/22 07/11/23 History vaginal cream eszopiclone 3 mg tablet 3 mg PO HS 05/03/22 07/11/23 History levothyroxine 88 mcg tablet 88 mcg PO DAILY 05/03/22 07/11/23 History rkbjkytm-trzymlqc-cdsv 45 mg-folic 1 cap PO DAILY 05/03/22 07/11/23 History acid 800 mcg-vit K 120 mcg capsule (Bariatric Multivitamins) pravastatin 80 mg tablet 80 mg PO DAILY 05/03/22 07/11/23 History buspirone 30 mg tablet 30 mg PO BID 06/20/22 07/11/23 History hydrocodone 5 mg-acetaminophen 325 1 - 2 tablet PO Q6H PRN pain #20 06/23/22 07/11/23 Rx mg tablet tabs Patient hx anesthesia problems: none Family hx anesthesia problems: none Results Review: All pre-operative results and documents have been reviewed as part of the pre-operative evaluation. [facility] Past Medical History Medical History Anxiety Asthma Chronic lung disease Chronic pain syndrome Chronic, continuous use of opioids CVA (cerebral vascular accident) Fibromyalgia Hyperlipidemia Hypothyroid Kidney stones Melanoma MIDDLETON (nonalcoholic steatohepatitis) MEREDITH (obstructive sleep apnea) Surgical History Surgical History Gastric bypass status for obesity H/O cataract removal with insertion of prosthetic lens H/O lithotripsy H/O thyroidectomy H/O: hysterectomy Hx of appendectomy Hx of cervical spine surgery Family History Family History Sibling Family history of rheumatoid arthritis Mother Family history of lung cancer Social History Social History (Updated 05/21/23 @ 09:16 by Luna Urias MA) Smoking status: Never smoker Second hand tobacco smoke exposure: No Alcohol intake: current Substance use: never Substance use type: does not use Other substance usage details: THC gummies for sleep. Do You Feel Safe in your Home?: Yes Lack of Transportation: No Lack of Food: Never True Current Housing: I Have Housing Concerned About Future Housing: No Difficulty Paying Gas/Electric Bills: No Difficulty Paying for Meds: No Currently Unemployed: No Education: Trade/Vocational Certificate Difficulty w/ [employer]
[2023-07-20] MEDS: ceFAZolin SODIUM 1 GM VIAL 2 GM IV PUSH (08:47)
--- NOTE | 2023-07-20 08:52 | W.PM.PROC2 ---
Procedure Note - Detailed Date of Procedure 07/20/23 Pre-op Diagnosis Right Renal Stone Post-op Diagnosis Same Procedure Performed Right ESWL Surgeon Pj Sepulveda MD Anesthesia General Description of Procedure The patient was brought to the operative suite where she was placed in the supine position on the Dornier lithotripsy table. The focal point of the lithotripter was placed at a 5mm right renal calculus. A total of 2500 shocks were delivered at a power setting of 4. There appeared to be good fragmentation of the stone. The patient tolerated the procedure well and was taken to the recovery room in good condition. Drains No Packing No Pathology None sent Complications No immediate complications Condition Stable
[2023-07-20] MEDS: KETOROLAC 15 MG/ML VIAL (*BKC) IV PUSH (09:13)
[2023-07-20 09:19] VITALS: BP 141/62; PULSE 64; RESP 12; TEMP 36.6; O2SAT 100
[2023-07-20 09:35] VITALS: BP 146/78; PULSE 67; RESP 16; O2SAT 100
[2023-07-20 09:50] VITALS: BP 144/66; PULSE 67; RESP 14; O2SAT 100
[2023-07-20 09:53] VITALS: BP 142/63; PULSE 77; RESP 14
[2023-07-20 10:20] VITALS: BP 127/69; PULSE 70; RESP 14
== END 2023-07-20 10:39 | disposition home or self-care (01) ==
PROVIDERS: PCP Internal Medicine; Visit Provider Urology
PROC: (CPT 50590; principal; 2023-07-20 08:30)
DX: N20.0 Calculus of kidney (principal); E78.5 Hyperlipidemia, unspecified; G47.33 Obstructive sleep apnea (adult) (pediatric); K75.81 Nonalcoholic steatohepatitis (NASH); F41.9 Anxiety disorder, unspecified; E89.0 Postprocedural hypothyroidism; G89.4 Chronic pain syndrome; M79.7 Fibromyalgia; Z79.891 Long term (current) use of opiate analgesic; Z86.73 Personal history of transient ischemic attack (TIA), and cerebral infarction without residual deficits; Z79.82 Long term (current) use of aspirin; E66.9 Obesity, unspecified; Z68.33 Body mass index [BMI] 33.0-33.9, adult
CPT/HCPCS: 50590; 74018; J0690; J1100; J1885; J2250; J2704; J7030; J7120

== ENCOUNTER 2023-08-01 09:46 | Outpatient (CLI) | payer MEDICARE, BC, SELFPAY ==
--- NOTE | ~2023-08-01 | XR_ITS ---
EXAMINATION: XR abdomen/kub 1V DATE: 08/01/2023 10:02 INDICATION: Calculus of kidney, follow-up. TECHNIQUE: A supine view of the abdomen on 2 radiographs was obtained. COMPARISON: CT abdomen and pelvis 06/16/2022 FINDINGS: There are no dilated loops of bowel. Calcifications in the pelvis are likely phleboliths. B owel obscures the kidneys. IMPRESSION: 1. No visible urolithiasis. Reviewed, dictated and finalized at location A. IMPRESSION: 1. No visible urolithiasis.
== END 2023-08-01 09:47 | disposition home or self-care (01) ==
LOC: ANHIMG 09:48
PROVIDERS: PCP Internal Medicine; Visit Provider Urology
DX: N20.2 Calculus of kidney with calculus of ureter (principal)
CPT/HCPCS: 74018

== ENCOUNTER 2023-10-09 14:55 | Outpatient (CLI) | payer MEDICARE, BC, SELFPAY ==
--- NOTE | ~2023-10-09 | XR_ITS ---
XR knee LT min 4V 10/09/2023 15:39 Indication: Left knee pain Procedure: 4 views left knee Comparison: No prior studies for comparison. Findings: There is moderate-severe tricompartment osteoarthritis. Osteopenia. No fracture or traumati c malalignment. No joint effusion. There is old healed proximal fibular fracture. Impression: 1: Moderate-severe tricompartment osteoarthritis. Reviewed, dictated and finalized at location B. Impression: 1: Moderate-severe tricompartment osteoarthritis.
== END 2023-10-09 14:56 | disposition home or self-care (01) ==
LOC: ANHIMG 14:59
PROVIDERS: PCP Internal Medicine; Visit Provider Orthopaedic Surgery
DX: M17.12 Unilateral primary osteoarthritis, left knee (principal)
CPT/HCPCS: 73564; 74018

== ENCOUNTER 2023-10-09 15:00 | Outpatient (CLI) | payer MEDICARE, BC, SELFPAY ==
--- NOTE | ~2023-10-09 | XR_ITS ---
EXAMINATION: XR abdomen/kub 1V DATE: 10/09/2023 15:39 INDICATION: Right ureteral stone. TECHNIQUE: A supine view of the abdomen on 2 radiographs was obtained. COMPARISON: Abdomen radiograph 08/01/2023, CT abdomen and pelvis 06/16/2022 FINDINGS: There are no dilated loops of bowel. Bowel obscures the kidneys. There are phleboliths in t he pelvis. There is a phlebolith in right ovarian vein. IMPRESSION: 1. No visible urolithiasis. Reviewed, dictated and finalized at location A. IMPRESSION: 1. No visible urolithiasis.
== END 2023-10-09 15:01 | disposition home or self-care (01) ==
PROVIDERS: PCP Internal Medicine; Visit Provider Urology
DX: N20.2 Calculus of kidney with calculus of ureter (principal)
CPT/HCPCS: 74018

== ENCOUNTER 2023-10-12 09:07 | Outpatient (CLI) | payer MEDICARE, BC, SELFPAY ==
--- NOTE | ~2023-10-12 | CT_ITS ---
CT of the Abdomen and Pelvis: Indication: Microhematuria Technique: 2.5 mm axial scans were obtained through the abdomen and pelvis prior to and following in travenous administration of 130 cc of Omnipaque 350. Dose reduction technique was used on this scan b y utilizing automated exposure control and iterative reconstruction technique. The dose-length produc t (DLP) was 1898.24 mGy-cm. COMPARISON: 06/16/2022 Findings: Scans through the lung bases are unremarkable. The liver, spleen, pancreas, gallbladder, and adrenal glands are within normal limits. There are mult iple bilateral nonobstructing renal stones, largest in the right kidney measuring 6 mm. No evidence o f aortic aneurysm. No lymphadenopathy. No bowel obstruction or bowel wall thickening. There is evidence of prior bariatric surgery. Prominen t stool suggests constipation. Images through the pelvis were performed. Urinary bladder unremarkable. No pelvic mass seen. No ascit es. Impression: Bilateral nonobstructing nephrolithiasis, as detailed above. Prominent stool suggests constipation. Reviewed, dictated and finalized at location . Impression: Bilateral nonobstructing nephrolithiasis, as detailed above. Prominent stool suggests constipation.
[2023-10-12 09:34] LABS: Estimated Glomerular Filt Rate > 60
== END 2023-10-12 09:08 | disposition home or self-care (01) ==
PROVIDERS: PCP Internal Medicine
DX: N20.0 Calculus of kidney (principal); R31.29 Other microscopic hematuria
CPT/HCPCS: 74178; Q9967

== ENCOUNTER 2023-10-13 12:56 | Emergency (ER) | payer MEDICARE, BC, SELFPAY ==
[2023-10-13 13:01] VITALS: BP 132/76; PULSE 71; RESP 19; TEMP 36.7; O2SAT 99
[2023-10-13 13:18] LABS: Basophils Percent Auto 0.5 % (0.2-1.2); Eosinophils Absolute Auto 0.2 K/mm3 (0-0.3); Eosinophils Percent Auto 3.5 % (0-4.4); Hemoglobin 15.7 g/dL (12.0-15.0); Immature Granulocyte Absolute 0.01 K/mm3 (0.00-0.031); Immature Granulocyte Percent A 0.2 % (0-0.5); Lymphocytes Absolute Auto 1.16 K/mm3 (0.9-3.2); Lymphocytes Percent Auto 26.8 % (18.3-44.2); Mean Corpuscular HGB Conc 34.1 g/dl (32-36); Mean Corpuscular Hemoglobin 35.4 pg (26-34); Mean Corpuscular Volume 103.6 fl (80-100); Mean Platelet Volume 9.7 fl (7.4-10.4); Monocytes Absolute Auto 0.6 K/mm3 (0.1-0.6); Monocytes Percent Auto 14.3 % (2.6-8.5); Neutrophils Absolute Auto 2.4 K/mm3 (1.3-6.7); Neutrophils Percent Auto 54.7 % (45.5-73.1); Platelet Count Result 160 k/mm3 (150-375); Red Blood Count 4.44 M/mm3 (4.2-5.4); Red Cell Distribution Width 11.9 % (11.5-14.5); White Blood Count 4.3 K/mm3 (4.5-10.0)
[2023-10-13 13:33] LABS: Alanine Aminotransferase 63 U/L (6-35); Albumin Level 4.7 g/dL (3.5-5.1); Alkaline Phosphatase 67 U/L (38-126); Anion Gap 8 mmol/L (4-12); Aspartate Amino Transferase 49 U/L (14-36); Bilirubin,Total 0.6 mg/dL (0.2-1.3); Blood Urea Nitrogen 18 mg/dL (7-17); Calcium 9.6 mg/dL (8.4-10.2); Carbon Dioxide 33 mmol/L (22-30); Chloride 98 mmol/L (98-107); Estimated CRCL calculation 73 ml/min; Estimated Glomerular Filt Rate > 60; Glucose 160 mg/dL (65-110); Potassium 4.7 mmol/L (3.4-5.0); Sodium 139 mmol/L (137-145)
[2023-10-13 13:58] LABS: Add Urine Microscopic? YES; Appearance Urine Clear (Clear); Bacteria Urine None Seen /hpf; Bilirubin Urine Negative (Negative); Blood Urine 1+ (Negative); Color Urine Yellow (Yellow); Glucose Urine UA Negative (Negative); Ketones Urine Negative (Negative); Leukocyte Esterase Ur Trace LEU/UL (Negative); Nitrate Urine Negative (Negative); Non Pathogenic Casts 0-2; Protein Urine Trace mg/dL (Negative); Specific Grav Ur 1.016 (1.001-1.035); Squamous Epithelial Cell Urine None Seen /hpf (Few); WBC Urine 0-5 /hpf (0-3)
--- NOTE | 2023-10-13 16:06 | ED.ABDPAIN ---
HPI - Abdominal Pain General Chief Complaint: Abdominal Pain Stated Complaint: right flank pain Time Seen by Provider: 10/13/23 15:16 Source: patient Mode of arrival: ambulatory Limitations: no limitations History of Present Illness HPI narrative: This is a 63 year old female that presents to the ER for flank pain. Ongoing over the last week. Reports she was seen by her urologist and started on antibiotics for a possible UTI. She had a CT scan of her abdomen and pelvis yesterday. This showed stones in her kidneys. She has continued to have bladder spasms. She also reports over the last couple of days she has noted ulcerations in her labia and rectum. Reports history of shingles in this distribution. Reports dysuria. Denies fevers. Related Data Home Medications Medication Instructions Recorded Confirmed acarbose 25 mg tablet 25 mg PO TID 05/03/22 07/11/23 aspirin 81 mg capsule 81 mg PO WEEKLY 05/03/22 07/11/23 bupropion HCl 300 mg 24 hr tablet, 300 mg PO QAM 05/03/22 07/11/23 extended release (Wellbutrin XL) cholecalciferol (vitamin D3) 25 25 mcg PO DAILY 05/03/22 07/11/23 mcg (1,000 unit) tablet copper gluconate 2 mg tablet 3 mg PO DAILY 05/03/22 07/11/23 cyclobenzaprine 10 mg tablet 10 mg PO BID PRN spasms 05/03/22 07/11/23 duloxetine 30 mg capsule,delayed 30 mg PO DAILY 05/03/22 07/11/23 release estradiol 0.01% (0.1 mg/gram) 1 g vaginal 2XW 05/03/22 07/11/23 vaginal cream eszopiclone 3 mg tablet 3 mg PO HS 05/03/22 07/11/23 levothyroxine 88 mcg tablet 88 mcg PO DAILY 05/03/22 07/11/23 mtymjhmc-mcurdiws-vbou 45 mg-folic 1 cap PO DAILY 05/03/22 07/11/23 acid 800 mcg-vit K 120 mcg capsule (Bariatric Multivitamins) pravastatin 80 mg tablet 80 mg PO DAILY 05/03/22 07/11/23 buspirone 30 mg tablet 30 mg PO BID 06/20/22 07/11/23 Allergies Allergy/AdvReac Type Severity Reaction Status Date / Time meperidine [From Demerol] Allergy Severe Hives Verified 07/20/23 07:20 levofloxacin [From Levaquin] AdvReac Intermediate INFLAMED Verified 07/20/23 07:20 TENDONS adhesive tape AdvReac Blister Verified 07/20/23 07:20 codeine AdvReac Hives Verified 07/20/23 07:20 gabapentin AdvReac CAUSED Verified 07/20/23 07:20 HAIR TO FALL OUT pregabalin [From Lyrica] AdvReac Swelling - Verified 07/20/23 07:20 HANDS & FEET Review of Systems Review of Systems: CONSTITUTIONAL: Denies fever GASTROINTESTINAL: Denies nausea, vomiting, or diarrhea. GENITOURINARY: Reports dysuria and hematuria. SKIN: Reports rash All systems reviewed & are unremarkable except as noted in HPI and below PMFSH Past Medical History Medical History Anxiety Asthma Chronic lung disease Chronic pain syndrome Chronic, continuous use of opioids CVA (cerebral vascular accident) Fibromyalgia Hyperlipidemia Hypothyroid Kidney stones Melanoma MIDDLETON (nonalcoholic steatohepatitis) MEREDITH (obstructive sleep apnea) Surgical History Surgical History Gastric bypass status for obesity H/O cataract removal with insertion of prosthetic lens H/O lithotripsy H/O thyroidectomy H/O: hysterectomy Hx of appendectomy Hx of cervical spine surgery Family History Family History Sibling Family history of rheumatoid arthritis Mother Family history of lung cancer Social History Social History (Updated 05/21/23 @ 09:16 by Luna Urias [facility]) Smoking status: Never smoker Second hand tobacco smoke exposure: No Alcohol intake: current Substance use: never Substance use type: does not use Other substance usage details: THC gummies for sleep. Do You Feel Safe in your Home?: Yes Lack of Transportation: No Lack of Food: Never True Current Housing: I Have Housing Concerned About Future Housing: No Difficulty Paying Gas/Electric Bills: No
[2023-10-13] MEDS: SODIUM CHLORIDE 0.9% IV 1,000 ML 999 ML IV CONT (16:07)
[2023-10-13 17:58] LABS: Chlamydia trachomatis NOT DETECTED (NOT DETECTE); Neisseria gonorrhoeae PCR NOT DETECTED (NOT DETECTE)
[2023-10-13 18:11] LABS: Trichomonas Vag PCR NOT DETECTED (NOT DETECTE)
[2023-10-13] MEDS: valACYclovir HCL 500 MG TABLET 1000 MG PO (19:00)
[2023-10-13 19:01] VITALS: BP 146/67; PULSE 75; RESP 16; O2SAT 97
[2023-10-18 08:38] LABS: Source VULVA
== END 2023-10-13 19:24 | disposition home or self-care (01) ==
PROVIDERS: Student in an Organized Health Care Education/Training Program; Emergency Provider Physician Assistant; PCP Internal Medicine
DX: N90.89 Other specified noninflammatory disorders of vulva and perineum (principal); E86.0 Dehydration; F41.9 Anxiety disorder, unspecified; J45.909 Unspecified asthma, uncomplicated; E78.5 Hyperlipidemia, unspecified; E03.9 Hypothyroidism, unspecified; Z85.820 Personal history of malignant melanoma of skin; G47.33 Obstructive sleep apnea (adult) (pediatric)
CPT/HCPCS: 36415; 80053; 81001; 85025; 87070; 87255; 87491; 87591; 87661; 99284; A9270; J7030

== ENCOUNTER 2023-10-17 13:25 | Inpatient (IN) | payer MEDICARE, BC, SELFPAY ==
[2023-10-17 13:30] VITALS: BP 123/60; PULSE 80; RESP 17; TEMP 36.4; O2SAT 99
--- NOTE | 2023-10-17 14:41 | ED.SKABFB ---
HPI - Skin/Abscess/Foreign Bdy General Chief complaint: Skin/Abscess/Foreign Body Stated complaint: shingles Time Seen by Provider: 10/17/23 14:00 History of Present Illness HPI narrative: Patient is a 63-year-old female presenting with perineal and vaginal pain. States that she was diagnosed with shingles involving her perennial region last week. She was started on Valtrex and Vicodin. She has been taking the Valtrex as prescribed. States that she is out of the Vicodin as she was taking 2 at a time which still was not controlling the pain much. She called her PCP who advised that she come in for pain control today. She denies abdominal pain. Reports mild nausea no vomiting. States that she has not been eating or drinking much because it hurts so much to urinate. Related Data Home Medications Medication Instructions Recorded Confirmed aspirin 81 mg capsule 81 mg PO WEEKLY 05/03/22 10/17/23 bupropion HCl 300 mg 24 hr tablet, 300 mg PO QAM 05/03/22 10/17/23 extended release (Wellbutrin XL) cholecalciferol (vitamin D3) 25 25 mcg PO DAILY 05/03/22 10/17/23 mcg (1,000 unit) tablet copper gluconate 2 mg tablet 3 mg PO DAILY 05/03/22 10/17/23 cyclobenzaprine 10 mg tablet 10 mg PO BID PRN spasms 05/03/22 10/17/23 duloxetine 30 mg capsule,delayed 60 mg PO DAILY 05/03/22 10/17/23 release eszopiclone 3 mg tablet 3 mg PO HS 05/03/22 10/17/23 levothyroxine 88 mcg tablet 88 mcg PO DAILY 05/03/22 10/17/23 htuzpikl-[id number]-wlmo 45 mg-folic 1 cap PO DAILY 05/03/22 10/17/23 acid 800 mcg-vit K 120 mcg capsule (Bariatric Multivitamins) pravastatin 80 mg tablet 80 mg PO .PM 05/03/22 10/17/23 amlodipine 2.5 mg tablet 2.5 mg PO DAILY 10/17/23 10/17/23 cyanocobalamin (vitamin B-12) 1,000 mcg subcut .Sunday10/17/23 10/17/23 1,000 mcg/mL injection solution Allergies Allergy/AdvReac Type Severity Reaction Status Date / Time meperidine [From Kashl] Allergy Severe Hives Verified 07/20/23 07:20 levofloxacin [From Levaquin] AdvReac Intermediate INFLAMED Verified 07/20/23 07:20 TENDONS adhesive tape AdvReac Blister Verified 07/20/23 07:20 codeine AdvReac Hives Verified 07/20/23 07:20 gabapentin AdvReac CAUSED Verified 07/20/23 07:20 HAIR TO FALL OUT pregabalin [From Lyrica] AdvReac Swelling - Verified 07/20/23 07:20 HANDS & FEET Review of Systems Review of Systems: All systems reviewed & are unremarkable except as noted in HPI and below PMFSH Past Medical History Medical History (Updated 10/18/23 @ 21:54 by Janeth Virk MD) Anxiety Asthma Chronic lung disease Chronic pain syndrome Chronic, continuous use of opioids CVA (cerebral vascular accident) Fibromyalgia Hyperlipidemia Hypothyroid Kidney stones Melanoma [place] (nonalcoholic steatohepatitis) MEREDITH (obstructive sleep apnea) Surgical History Surgical History Gastric bypass status for obesity H/O cataract removal with insertion of prosthetic lens H/O lithotripsy H/O thyroidectomy H/O: hysterectomy Hx of appendectomy Hx of cervical spine surgery Family History Family History Sibling Family history of rheumatoid arthritis Mother Family history of lung cancer Social History Social History Smoking status: Never smoker Second hand tobacco smoke exposure: No Alcohol intake: never Substance use: never Substance use type: does not use Other substance usage details: THC gummies for sleep. Do You Feel Safe in your Home?: Yes Lack of Transportation: No Lack of Food: Never True Current Housing: I Have Housing Concerned About Future Housing: No Difficulty Paying Gas/Electric Bills: No Difficulty Paying for Meds: No Currently Unemployed: No Education: Trade/Vocational Certificate Difficulty w/ Childcare or Family Care: No Living a
[2023-10-17 15:17] LABS: Basophils Percent Auto 0.8 % (0.2-1.2); Eosinophils Absolute Auto 0.2 K/mm3 (0-0.3); Eosinophils Percent Auto 4.2 % (0-4.4); Hematocrit 45.5 % (37.0-47.0); Hemoglobin 15.3 g/dL (12.0-15.0); Immature Granulocyte Absolute 0.01 K/mm3 (0.00-0.031); Immature Granulocyte Percent A 0.2 % (0-0.5); Lymphocytes Absolute Auto 1.75 K/mm3 (0.9-3.2); Lymphocytes Percent Auto 37.1 % (18.3-44.2); Mean Corpuscular HGB Conc 33.6 g/dl (32-36); Mean Corpuscular Hemoglobin 34.9 pg (26-34); Mean Corpuscular Volume 103.6 fl (80-100); Mean Platelet Volume 8.9 fl (7.4-10.4); Monocytes Absolute Auto 0.5 K/mm3 (0.1-0.6); Monocytes Percent Auto 10.6 % (2.6-8.5); Neutrophils Absolute Auto 2.2 K/mm3 (1.3-6.7); Neutrophils Percent Auto 47.1 % (45.5-73.1); Platelet Count Result 131 k/mm3 (150-375); Red Blood Count 4.39 M/mm3 (4.2-5.4); Red Cell Distribution Width 11.6 % (11.5-14.5); White Blood Count 4.7 K/mm3 (4.5-10.0)
[2023-10-17] MEDS: SODIUM CHLORIDE 0.9% IV 1,000 ML 999 ML IV CONT (15:19)
[2023-10-17] MEDS: ONDANSETRON INJ 4 MG/2 ML VIAL IV PUSH (15:19)
[2023-10-17] MEDS: KETOROLAC 15 MG/ML VIAL (*BKC) IV PUSH (15:19)
[2023-10-17] MEDS: HYDROmorphone HCL INJ (*CRX) 1 MG/ML SYR IV PUSH ×2 (15:20→19:34)
[2023-10-17 15:34] LABS: Alanine Aminotransferase 50 U/L (6-35); Albumin Level 4.4 g/dL (3.5-5.1); Alkaline Phosphatase 62 U/L (38-126); Anion Gap 7 mmol/L (4-12); Aspartate Amino Transferase 46 U/L (14-36); Bilirubin,Total 0.8 mg/dL (0.2-1.3); Blood Urea Nitrogen 20 mg/dL (7-17); Calcium 8.9 mg/dL (8.4-10.2); Carbon Dioxide 30 mmol/L (22-30); Chloride 101 mmol/L (98-107); Estimated CRCL calculation 73 ml/min; Estimated Glomerular Filt Rate > 60; Glucose 98 mg/dL (65-110); Potassium 4.4 mmol/L (3.4-5.0); Sodium 138 mmol/L (137-145)
[2023-10-17] MEDS: oxyCODONE/ACETAMINOPHEN (*CRX) 5-325 MG TABLET 1 TABLET PO (16:29)
[2023-10-17 16:31] VITALS: BP 138/64; PULSE 75; RESP 14; O2SAT 100
[2023-10-17 19:33] VITALS: BP 144/74; PULSE 73; RESP 16; O2SAT 98
--- NOTE | 2023-10-17 20:08 | PM.IMHP ---
H&P: HPI History of Present Illness Date/Time: 10/17/23 20:08 Chief Complaint: pain with urination Narrative: This is a 63-year-old female with past medical history significant for recurrent shingles, hypertension, degenerative joint disease, fibromyalgia, chronic opioid use, Stout, obstructive sleep apnea, gastric bypasses surgery. Patient presents to the emergency room due to shingles present in the vulvar area which causes the patient significant pain and discomfort with urination. Patient has been admitted for pain management. Review of Systems Review of Systems: Will leave our blister, pain with urination. [facility] Past Medical History Medical History (Updated 10/18/23 @ 00:48 by Esvin De Anda MD) Anxiety Asthma Chronic lung disease Chronic pain syndrome Chronic, continuous use of opioids CVA (cerebral vascular accident) Fibromyalgia Hyperlipidemia Hypothyroid Kidney stones Melanoma STOUT (nonalcoholic steatohepatitis) MEREDITH (obstructive sleep apnea) Surgical History Surgical History Gastric bypass status for obesity H/O cataract removal with insertion of prosthetic lens H/O lithotripsy H/O thyroidectomy H/O: hysterectomy Hx of appendectomy Hx of cervical spine surgery Family History Family History Sibling Family history of rheumatoid arthritis Mother Family history of lung cancer Social History Social History Smoking status: Never smoker Second hand tobacco smoke exposure: No Alcohol intake: never Substance use: never Substance use type: does not use Other substance usage details: THC gummies for sleep. Do You Feel Safe in your Home?: Yes Lack of Transportation: No Lack of Food: Never True Current Housing: I Have Housing Concerned About Future Housing: No Difficulty Paying Gas/Electric Bills: No Difficulty Paying for Meds: No Currently Unemployed: No Education: Trade/Vocational Certificate Difficulty w/ Childcare or Family Care: No Living arrangements: with family Additional living arrangements comments: Gender identity (if verbalized by the patient): Female Spiritual care concerns: No Meds Home Medications and Allergies Home Medications Medication Instructions Recorded Confirmed Type albuterol sulfate 90 mcg/actuation 2 puff inhalation QID PRN 05/03/22 10/17/23 Rx aerosol inhaler shortness of breath or wheezing #8.5 grams aspirin 81 mg capsule 81 mg PO WEEKLY 05/03/22 10/17/23 History bupropion HCl 300 mg 24 hr tablet, 300 mg PO QAM 05/03/22 10/17/23 History extended release (Wellbutrin XL) cholecalciferol (vitamin D3) 25 25 mcg PO DAILY 05/03/22 10/17/23 History mcg (1,000 unit) tablet copper gluconate 2 mg tablet 3 mg PO DAILY 05/03/22 10/17/23 History cyclobenzaprine 10 mg tablet 10 mg PO BID PRN spasms 05/03/22 10/17/23 History duloxetine 30 mg capsule,delayed 60 mg PO DAILY 05/03/22 10/17/23 History release eszopiclone 3 mg tablet 3 mg PO HS 05/03/22 10/17/23 History levothyroxine 88 mcg tablet 88 mcg PO DAILY 05/03/22 10/17/23 History fvtvstrh-rrmdljss-xzha 45 mg-folic 1 cap PO DAILY 05/03/22 10/17/23 History acid 800 mcg-vit K 120 mcg capsule (Bariatric Multivitamins) pravastatin 80 mg tablet 80 mg PO .PM 05/03/22 10/17/23 History hydrocodone 5 mg-acetaminophen 325 1 - 2 tablet PO Q6H PRN pain #20 06/23/22 10/17/23 Rx mg tablet tabs valacyclovir 1 gram tablet 1,000 mg PO Q8H 10 days #30 tabs 10/13/23 10/17/23 Rx amlodipine 2.5 mg tablet 2.5 mg PO DAILY 10/17/23 10/17/23 History cyanocobalamin (vitamin B-12) 1,000 mcg subcut .Sunday10/17/23 10/17/23 History 1,000 mcg/mL injection solution Allergies Allergy/AdvReac Type Severity Reaction Status Date / Time meperidine [From Demerol] Allergy Severe Hives Verified 07/20/23 07
[2023-10-17 20:47] VITALS: BP 145/67; PULSE 67; RESP 16; O2SAT 98
[2023-10-17] MEDS: TRIAMCINOLONE ACET 0.1% CREAM 15 GM TUBE 1 APPLIC TOPICAL (20:47)
[2023-10-17 22:31] VITALS: BP 148/60; PULSE 62; RESP 18; TEMP 36.9; O2SAT 96; BMI 31.6
[2023-10-18] MEDS: diphenhydrAMINE HCl INJ 50 MG/ML VIAL IV PUSH (00:34)
[2023-10-18] MEDS: diazePAM INJ (*CRX) 10 MG/2 ML SYRINGE 5 MG IV PUSH (00:36)
[2023-10-18] MEDS: PRAVASTATIN SODIUM 20 MG TABLET 80 MG PO ×2 (00:36→20:37)
[2023-10-18] MEDS: valACYclovir HCL 500 MG TABLET 1000 MG PO ×2 (00:37→06:19)
[2023-10-18 06:00] VITALS: BP 152/70; PULSE 66; RESP 20; TEMP 36.3; O2SAT 98
[2023-10-18] MEDS: HYDROcodone/acetaminophen (*CRX) 5-325 MG TABLET 1 TAB PO ×2 (06:18→14:09)
[2023-10-18] MEDS: LEVOTHYROXINE SODIUM 88 MCG TABLET PO (06:19)
[2023-10-18] MEDS: buPROPion HCL XL (24 HR) 150 MG TABCR 300 MG PO (09:32)
[2023-10-18] MEDS: amLODIPine BESYLATE 2.5 MG TABLET PO (09:32)
--- NOTE | 2023-10-18 10:10 | PM.IMPN ---
Progress Note: A&P Assessment and Plan (1) Blister of vulva without infection: Code(s): S30.824A - Blister (nonthermal) of vagina and vulva, initial encounter Status: Acute Assessment and Plan: - perineal pain - shingles vs genital herpes. placed in observation Linder in local care - started on valacyclovir - pain control (2) Fibromyalgia: Code(s): M79.7 - Fibromyalgia Status: Acute Assessment and Plan: norco- will continue (3) Asthma: Code(s): J45.909 - Unspecified asthma, uncomplicated Status: Acute (4) MEREDITH (obstructive sleep apnea): Code(s): G47.33 - Obstructive sleep apnea (adult) (pediatric) Status: Acute Plan dvt prophylaxis: lovenox Time Spent With Patient Time with patient: Greater than 35 minutes Subjective Date/time seen: 10/18/23 10:10 Interval history: pain with urination Narrative retrieved form H/P: This is a 63-year-old female with past medical history significant for recurrent shingles, hypertension, degenerative joint disease, fibromyalgia, chronic opioid use, Stout, obstructive sleep apnea, gastric bypasses surgery. She was diagnosed with shingles involving her perennial region last week. She was started on Valtrex and Vicodin. She has been taking the Valtrex as prescribed. States that she is out of the Vicodin as she was taking 2 at a time which still was not controlling the pain much. She called her PCP who advised that she come in for pain control today. She denies abdominal pain. Reports mild nausea no vomiting. States that she has not been eating or drinking much because it hurts so much to urinate 10/17- pt is seen and examined today. She reports this being her 17th shingle infections. She was seen per her OBGYN and was finally properly diagnosed Typically outbreaks were happening on her body and this is her second vaginal/perineal outbreak. IN the past Valtrex would help. She was tested for STD and herpes in the past and she reports that everything was always negative. She reports being and having a safe sexual relationship with her . She is convinced that there is no possibility for adultery. Review of Systems Review of Systems: pain with urination. Constitutional: Constitutional: Denies chills Eyes: Eyes: Denies blurry vision Cardiovascular: Cardiovascular: Denies chest pain Gastrointestinal: Gastrointestinal: Denies melena Genitourinary: Comments: pain with urination Exam Narrative: Patient is laying in a stretcher Const: General: comfortable, no acute distress, well developed, alert, awake and average body habitus Nutritional Appearance: average body habitus Orientation/consciousness: patient oriented x3 HENMT: Head: normal to inspection, normocephalic and atraumatic Ears: hearing grossly normal bilaterally Face/Nose/Sinus: normal facial exam Face and sinus: normal facial exam Eyes: General: appearance normal, both eyes and all related structures Pupils: Equal, round and reactive pupils present EOM: EOMs intact bilaterally Neck: Neck: full ROM, no lymphadenopathy and no JVD Thyroid: thyroid normal Lymphatic: no lymphadenopathy noted Resp: Effort & Inspection: normal respiratory effort and able to speak in complete sentences Auscultation: clear to auscultation bilaterally Cardio: Jugular venous distension: no JVD Rate: regular rate Rhythm: regular rhythm Heart sounds: S1 normal heart sound present and S2 normal heart sound present : Other: exam is completed with Ethel NARVAEZ in the room. External inspection didnot reveal any substantial erythema or swelling. Pt reported an area where it hurts - it appeared more like popped small blister rather than a typical shingle lesion. She pointed to anal area and neither i nor RN were not able to clearly visualize a lesion that was bothering her. Skin: Rashes: no rashes Wounds: no wounds Neuro: General: patie
[2023-10-18 10:52] LABS: Hemoglobin A1C 5.4 % (<5.7)
[2023-10-18] MEDS: HYDROmorphone HCL INJ (*CRX) 1 MG/ML SYR 0.5 MG IV PUSH ×2 (12:18→20:35)
[2023-10-18] MEDS: MULTIVITAMINS /C LUTEIN (CENTRUM SILVER) TABLET *BKC 1 TAB PO (12:20)
[2023-10-18] MEDS: DULoxetine HCL 60 MG CAPSULE.DR PO (12:20)
[2023-10-18] MEDS: ACYCLOVIR SODIUM IVPB ×2 (12:21→21:55)
[2023-10-18] MEDS: DEXTROSE 5% IVPB ×2 (12:21→21:55)
[2023-10-18] MEDS: WATER IVPB ×2 (12:21→21:55)
--- NOTE | 2023-10-18 13:50 | PHAR ---
The patient's home med of Eszopiclone 3 mg tablet has been verified.
[2023-10-18 14:00] VITALS: BP 104/22; PULSE 78; RESP 18; TEMP 36.6; O2SAT 88
[2023-10-18] MEDS: WITCH HAZEL 40 PADS 1 PAD TOPICAL (14:07)
[2023-10-18] MEDS: CYCLOBENZAPRINE HCL 10 MG TABLET PO (20:36)
[2023-10-18 22:11] VITALS: BP 138/49; PULSE 77; RESP 18; TEMP 36.6; O2SAT 96
[2023-10-19] MEDS: HYDROmorphone HCL INJ (*CRX) 1 MG/ML SYR 0.5 MG IV PUSH (04:49)
[2023-10-19 06:00] VITALS: BP 138/69; PULSE 65; RESP 18; TEMP 36.8; O2SAT 97
[2023-10-19] MEDS: DEXTROSE 5% IVPB ×3 (06:46→21:22)
[2023-10-19] MEDS: LEVOTHYROXINE SODIUM 88 MCG TABLET PO (06:46)
[2023-10-19] MEDS: ACYCLOVIR SODIUM IVPB ×3 (06:46→21:22)
[2023-10-19] MEDS: WATER IVPB ×3 (06:46→21:22)
[2023-10-19 07:30] LABS: Hematocrit 39.8 % (37.0-47.0); Hemoglobin 13.5 g/dL (12.0-15.0); Mean Corpuscular HGB Conc 33.9 g/dl (32-36); Mean Corpuscular Hemoglobin 35.1 pg (26-34); Mean Corpuscular Volume 103.4 fl (80-100); Platelet Count Result 115 k/mm3 (150-375); Red Blood Count 3.85 M/mm3 (4.2-5.4); Red Cell Distribution Width 11.6 % (11.5-14.5); White Blood Count 4.7 K/mm3 (4.5-10.0)
[2023-10-19 07:46] LABS: Anion Gap 6 mmol/L (4-12); Blood Urea Nitrogen 25 mg/dL (7-17); Calcium 8.4 mg/dL (8.4-10.2); Carbon Dioxide 32 mmol/L (22-30); Chloride 99 mmol/L (98-107); Estimated CRCL calculation 84 ml/min; Estimated Glomerular Filt Rate > 60; Glucose 122 mg/dL (65-110); Potassium 3.8 mmol/L (3.4-5.0); Sodium 137 mmol/L (137-145)
[2023-10-19] MEDS: buPROPion HCL XL (24 HR) 150 MG TABCR 300 MG PO (08:36)
[2023-10-19] MEDS: amLODIPine BESYLATE 2.5 MG TABLET PO (08:36)
[2023-10-19] MEDS: DULoxetine HCL 60 MG CAPSULE.DR PO (08:36)
[2023-10-19] MEDS: ENOXAPARIN 40 MG/0.4 ML SYRINGE SUB-Q (08:38)
--- NOTE | 2023-10-19 09:58 | PM.IMPN ---
Progress Note: A&P Assessment and Plan (1) Blister of vulva without infection: Code(s): S30.824A - Blister (nonthermal) of vagina and vulva, initial encounter Status: Acute Assessment and Plan: - perineal pain - shingles vs genital herpes. placed in observation Linder in local care - started on valacyclovir - pain control - will switch to IV acyclovir for now - will discuss the need to test for HIV and syphilis (2) Fibromyalgia: Code(s): M79.7 - Fibromyalgia Status: Acute Assessment and Plan: chronic norco- will continue - will need pain clinic f/u as an outpt (3) Asthma: Code(s): J45.909 - Unspecified asthma, uncomplicated Status: Acute (4) MEREDITH (obstructive sleep apnea): Code(s): G47.33 - Obstructive sleep apnea (adult) (pediatric) Status: Acute Plan dvt prophylaxis: lovenox Time Spent With Patient Time with patient: Greater than 35 minutes Subjective Date/time seen: 10/19/23 09:58 Interval history: pain with urination Narrative retrieved form H/P: This is a 63-year-old female with past medical history significant for recurrent shingles, hypertension, degenerative joint disease, fibromyalgia, chronic opioid use, Stout, obstructive sleep apnea, gastric bypasses surgery. She was diagnosed with shingles involving her perennial region last week. She was started on Valtrex and Vicodin. She has been taking the Valtrex as prescribed. States that she is out of the Vicodin as she was taking 2 at a time which still was not controlling the pain much. She called her PCP who advised that she come in for pain control today. She denies abdominal pain. Reports mild nausea no vomiting. States that she has not been eating or drinking much because it hurts so much to urinate 10/17- pt is seen and examined today. She reports this being her 17th shingle infections. She was seen per her OBGYN and was finally properly diagnosed Typically outbreaks were happening on her body and this is her second vaginal/perineal outbreak. IN the past Valtrex would help. She was tested for STD and herpes in the past and she reports that everything was always negative. She reports being and having a safe sexual relationship with her . She is convinced that there is no possibility for adultery. 10/18- tearful today- reports that she had been on pain meds for a while and used to follow with pain clinic but it had been a while since she was seen. Then she reports that she thinks her was not faithful. her pain overall better- we discussed that she would have to take low dose antiviral therapy daily to avoid any breakouts in the future. We are trying to avoid IV pain meds in anticipation of discharge tomorrow Review of Systems Review of Systems: pain with urination. Constitutional: Constitutional: Denies chills Eyes: Eyes: Denies blurry vision Cardiovascular: Cardiovascular: Denies chest pain Gastrointestinal: Gastrointestinal: Denies melena Exam Narrative: Patient is laying in a stretcher Const: General: comfortable, no acute distress, well developed, alert, awake and average body habitus Nutritional Appearance: average body habitus Orientation/consciousness: patient oriented x3 HENMT: Head: normal to inspection, normocephalic and atraumatic Ears: hearing grossly normal bilaterally Face/Nose/Sinus: normal facial exam Face and sinus: normal facial exam Eyes: General: appearance normal, both eyes and all related structures Pupils: Equal, round and reactive pupils present EOM: EOMs intact bilaterally Neck: Neck: full ROM, no lymphadenopathy and no JVD Thyroid: thyroid normal Lymphatic: no lymphadenopathy noted Resp: Effort & Inspection: normal respiratory effort and able to speak in complete sentences Auscultation: clear to auscultation bilaterally Cardio: Jugular venous distension: no JVD Rate: regular rate Rhythm: regular rhythm
[2023-10-19] MEDS: HYDROcodone/acetaminophen (*CRX) 5-325 MG TABLET 1 TAB PO (11:43)
[2023-10-19] MEDS: MULTIVITAMINS /C LUTEIN (CENTRUM SILVER) TABLET *BKC 1 TAB PO (11:44)
[2023-10-19 14:00] VITALS: BP 135/58; PULSE 81; RESP 18; TEMP 37; O2SAT 97
--- NOTE | 2023-10-19 18:35 | PC.NURSE ---
Pt told this nurse she was concerned that she was not emptying bladder after malagon removal. Bladder scan obtained. <160 able to be viewed. Encouraged pt to drink fluids.
[2023-10-19 19:41] LABS: HIV 1/2 Ab P24 Ag Result Negative (Negative)
[2023-10-19 19:51] LABS: Rapid Plasma Reagin Non-Reactive (NonReactive)
[2023-10-19 20:35] LABS: Glucose Point of Care 148 mg/dl (65-105)
[2023-10-19] MEDS: PRAVASTATIN SODIUM 20 MG TABLET 80 MG PO (21:22)
[2023-10-19 21:33] VITALS: BP 120/63; PULSE 85; RESP 22; TEMP 37; O2SAT 96
[2023-10-20] MEDS: ACYCLOVIR SODIUM IVPB ×2 (05:24→13:07)
[2023-10-20] MEDS: WATER IVPB ×2 (05:24→13:07)
[2023-10-20] MEDS: LEVOTHYROXINE SODIUM 88 MCG TABLET PO (05:24)
[2023-10-20] MEDS: DEXTROSE 5% IVPB ×2 (05:24→13:07)
[2023-10-20 05:48] LABS: Hematocrit 40.8 % (37.0-47.0); Hemoglobin 13.6 g/dL (12.0-15.0); Mean Corpuscular HGB Conc 33.3 g/dl (32-36); Mean Corpuscular Hemoglobin 34.7 pg (26-34); Mean Corpuscular Volume 104.1 fl (80-100); Mean Platelet Volume 8.8 fl (7.4-10.4); Platelet Count Result 137 k/mm3 (150-375); Red Blood Count 3.92 M/mm3 (4.2-5.4); Red Cell Distribution Width 11.5 % (11.5-14.5); White Blood Count 6.1 K/mm3 (4.5-10.0)
[2023-10-20 05:59] LABS: Anion Gap 6 mmol/L (4-12); Blood Urea Nitrogen 25 mg/dL (7-17); Calcium 8.8 mg/dL (8.4-10.2); Carbon Dioxide 32 mmol/L (22-30); Chloride 100 mmol/L (98-107); Estimated CRCL calculation 73 ml/min; Estimated Glomerular Filt Rate > 60; Glucose 107 mg/dL (65-110); Potassium 3.7 mmol/L (3.4-5.0); Sodium 138 mmol/L (137-145)
[2023-10-20 06:00] VITALS: BP 135/74; PULSE 68; RESP 22; TEMP 36.4; O2SAT 97
[2023-10-20] MEDS: HYDROcodone/acetaminophen (*CRX) 5-325 MG TABLET 1 TAB PO (07:43)
[2023-10-20] MEDS: buPROPion HCL XL (24 HR) 150 MG TABCR 300 MG PO (07:47)
[2023-10-20] MEDS: DULoxetine HCL 60 MG CAPSULE.DR PO (07:47)
[2023-10-20] MEDS: ENOXAPARIN 40 MG/0.4 ML SYRINGE SUB-Q (07:47)
[2023-10-20] MEDS: amLODIPine BESYLATE 2.5 MG TABLET PO (07:47)
[2023-10-20] MEDS: MULTIVITAMINS /C LUTEIN (CENTRUM SILVER) TABLET *BKC 1 TAB PO (11:45)
--- NOTE | 2023-10-20 13:12 | PM.DS ---
DS: Admitting Diagnosis Discharge Date 10/19 Admitting Diagnosis vag pain, herpes DS: Discharge Diagnosis Discharge Diagnosis (1) Blister of vulva without infection: Code(s): S30.824A - Blister (nonthermal) of vagina and vulva, initial encounter Status: Acute Assessment and Plan: - perineal pain - shingles vs genital herpes. placed in observation Linder in local care - started on valacyclovir - pain control - will switch to IV acyclovir for now - will discuss the need to test for HIV and syphilis (2) Fibromyalgia: Code(s): M79.7 - Fibromyalgia Status: Acute Assessment and Plan: chronic norco- will continue - will need pain clinic f/u as an outpt (3) Asthma: Code(s): J45.909 - Unspecified asthma, uncomplicated Status: Acute (4) MEREDITH (obstructive sleep apnea): Code(s): G47.33 - Obstructive sleep apnea (adult) (pediatric) Status: Acute Plan dvt prophylaxis: lovenox DS: Summary Hospital Course Hospital Course: Interval history: pain with urination Narrative retrieved form H/P: This is a 63-year-old female with past medical history significant for recurrent shingles, hypertension, degenerative joint disease, fibromyalgia, chronic opioid use, Stout, obstructive sleep apnea, gastric bypasses surgery. She was diagnosed with shingles involving her perennial region last week. She was started on Valtrex and Vicodin. She has been taking the Valtrex as prescribed. States that she is out of the Vicodin as she was taking 2 at a time which still was not controlling the pain much. She called her PCP who advised that she come in for pain control today. She denies abdominal pain. Reports mild nausea no vomiting. States that she has not been eating or drinking much because it hurts so much to urinate 10/17- pt is seen and examined today. She reports this being her 17th shingle infections. She was seen per her OBGYN and was finally properly diagnosed Typically outbreaks were happening on her body and this is her second vaginal/perineal outbreak. IN the past Valtrex would help. She was tested for STD and herpes in the past and she reports that everything was always negative. She reports being and having a safe sexual relationship with her . She is convinced that there is no possibility for adultery. 10/18 doing well - pain is better controlled. Linder had to be re inserted yesterday as had retention. She will f/u with her obgyn or urology for further mngmnt, will need suppressive therapy for herpes as had frequent re occurrence Status at Discharge Functional status at discharge: independent ambulation Overall status at discharge: patient is progressing back to baseline Time Spent with Patient Time attestation: Total time spent providing and/or coordinating discharge services: Time spent: Greater than 30 minutes Exam Narrative: in bed- calm, in no distress Const: General: comfortable, no acute distress, well developed, alert, awake and average body habitus Nutritional Appearance: average body habitus Orientation/consciousness: patient oriented x3 HENMT: Head: normal to inspection, normocephalic and atraumatic Ears: hearing grossly normal bilaterally Face/Nose/Sinus: normal facial exam Face and sinus: normal facial exam Eyes: General: appearance normal, both eyes and all related structures Pupils: Equal, round and reactive pupils present EOM: EOMs intact bilaterally Neck: Neck: full ROM, no lymphadenopathy and no JVD Thyroid: thyroid normal Lymphatic: no lymphadenopathy noted Resp: Effort & Inspection: normal respiratory effort and able to speak in complete sentences Auscultation: clear to auscultation bilaterally Cardio: Jugular venous distension: no JVD Rate: regular rate Rhythm: regular rhythm Heart sounds: S1 normal heart sound present and S2 normal heart sound present : General: Yes deferred Urinary Catheter: Urinary C
[2023-10-20 14:00] VITALS: BP 136/69; PULSE 91; RESP 16; TEMP 36.9; O2SAT 96
[2023-10-27 03:19] LABS: Source VAGINA
== END 2023-10-20 14:35 | disposition home or self-care (01) | DRG 759 ==
LOC: ANHED 21:21 → ANH3MED 21:43
PROVIDERS: Admitting Provider Internal Medicine; Emergency Provider Emergency Medicine; PCP Internal Medicine; Visit Provider Nurse Practitioner
DX: A60.04 Herpesviral vulvovaginitis (principal); J45.909 Unspecified asthma, uncomplicated; E03.9 Hypothyroidism, unspecified; E78.5 Hyperlipidemia, unspecified; K75.81 Nonalcoholic steatohepatitis (NASH); M79.7 Fibromyalgia; G47.33 Obstructive sleep apnea (adult) (pediatric); G89.4 Chronic pain syndrome; F41.9 Anxiety disorder, unspecified; Z79.891 Long term (current) use of opiate analgesic; Z79.82 Long term (current) use of aspirin; Z86.73 Personal history of transient ischemic attack (TIA), and cerebral infarction without residual deficits; Z87.442 Personal history of urinary calculi; Z85.820 Personal history of malignant melanoma of skin; Z98.84 Bariatric surgery status
CPT/HCPCS: 36415; 80048; 80053; 82948; 83036; 85025; 85027; 86592; 86703; 87255; 96361; 96374; 96375; 96376; 99285; A9270; G0378; G0432; J0133; J1170; J1200; J1650; J1885; J2405; J3360; J7030; J7060

== ENCOUNTER 2023-11-08 03:22 | Day surgery (SDC) | payer MEDICARE, BC, SELFPAY ==
[2023-11-02 15:26] VITALS: BMI 34.2
--- NOTE | 2023-11-02 15:32 | PC.NURSE ---
Report to the Outpatient Waiting Room, entrance under the green pavilion located off [facility], at time _0700_ on date _[id number]_. Planned Procedure Time: _0900_.? Time changes happen often and if your time is changed the preop area will call you the afternoon before. - You and your visitor will be asked to self-screen and do not enter if you have any COVID symptoms. Please call surgeon if you need to reschedule. - A mask is optional within the hospital at this time. Patients may have clear liquids (water, carbonated beverages, clear teas, apple juice) until 3 hours prior to surgery with a maximum of 20 ounces. - No food from midnight until time of surgery and no smoking Take only the following medications with a SIP of water on the morning of surgery: __Levothyroxine, Amlodipine, Bupropion, Duloxetine and Valcyclovir___ DO NOT STOP ANY OF YOUR OTHER PRESCRIPTION MEDICATIONS PRIOR TO SURGERY EXCEPT THE FOLLOWING Medications to discontinue per physician ____All vitamins___ Date to take last fgjt___[id number] Please no make-up, nail nigerien, hairspray, perfume, deodorant, or body powder the day of surgery.? No jewelry (including any body piercings) or valuables the day of surgery, leave them at home.? Please take a shower or bath the night before, or the morning of, surgery with an antibacterial soap.? Wear comfortable, loose fitting clothing.? - Jewelry must be removed prior to entering the operating room.? Rings and piercings that are not removed may be cut off. - The hospital will not accept responsibility for valuables.? - Please leave all valuables, including medications, at home the day of surgery. If you are going home after surgery, a licensed driver wheelchair must drive you home.? - NO public transportation without another adult if you receive anesthesia. - We recommend that an adult stay with you for 24 hours following discharge. - We also recommend that you do not drive, make important decision, drink alcoholic beverages, or take any drugs that were not prescribed by your health care provider for at least 24 hours after your discharge time. Follow any additional instructions given to you from your surgeon. Telephone instructions given to __Tiffanie__and asked if any additional questions and then verbalized understanding. Patient advised to call surgeon office or pre surgery nurse liaison [phone] if any additional questions.
[2023-11-08] VITALS (7 sets, daily range): BP systolic 131–161; BP diastolic 61–93; PULSE 65–72; RESP 12–18; TEMP 36.5; O2SAT 95–100
--- NOTE | ~2023-11-08 | XR_ITS ---
EXAMINATION: XR retrograde pyelo w/stent RT DATE: 11/08/2023 10:14 INDICATION: Right internal ureteral stent placement TECHNIQUE: Fluoroscopic images from a right internal ureteral stent placement are submitted for clemente zhao 43 seconds of fluoroscopy time. FINDINGS: There is a right double-J internal ureteral stent projecting in expected position, with proximal [place] loop at the level of the renal pelvis and distal loop in the pelvis within the bladder lumen. IMPRESSION: 1. Right internal ureteral stent placement. Please refer to real-time procedural findings for detrenny ls. Reviewed, dictated and finalized at location B. IMPRESSION: 1. Right internal ureteral stent placement. Please refer to real-time procedu ral findings for details.
--- NOTE | 2023-11-08 06:40 | WPDHPUPDATE1 ---
History and Physical Update Update Date/Time: 11/08/23 06:40 History and Physical has been reviewed, including an updated exam of the patient. There are NO changes in the patient's condition. Risks, benefits, and alternatives have been discussed and questions answered. Patient agrees to proceed with procedure.
[2023-11-08] MEDS: LACTATED RINGERS 1,000 ML 30 ML IV CONT (08:15)
[2023-11-08 08:17] LABS: Glucose Point of Care 88 mg/dl (65-105)
--- NOTE | 2023-11-08 09:05 | WPDANESEPPF ---
Anes - Initial Pre Proc Eval Procedure: Operation Date: 11/08/23 09:45 Proposed Procedures p Cystoscopy, Right Ureteroscopy, Laser Lithotripsy with Right Stone Extraction, Possible Right Retrograde Pyelogram, Possible Right Stent Placement - Pj Sepulveda MD Date/Time: 11/08/23 09:05 Surgeon: Pj Sepulveda MD Pre Op Diagnosis: right renal stone Patient Data Age: 63 Gender: F Height: 1.6 m Weight: 88.6 kg Last Vital Signs Temp 97.7 F 11/08/23 08:04 Pulse 69 11/08/23 08:04 Resp 18 11/08/23 08:04 BP 159/86 H 11/08/23 08:04 Pulse Ox 98 11/08/23 08:04 O2 Del Method Room Air 11/08/23 08:04 Allergies Allergy/AdvReac Type Severity Reaction Status Date / Time meperidine [From Demerol] Allergy Severe Hives Verified 11/08/23 08:22 levofloxacin [From Levaquin] AdvReac Intermediate INFLAMED Verified 11/08/23 08:22 TENDONS adhesive tape AdvReac Blister Verified 11/08/23 08:22 codeine AdvReac Hives Verified 11/08/23 08:22 Home Medications Medication Instructions Recorded Confirmed Type albuterol sulfate 90 mcg/actuation 2 puff inhalation QID PRN 05/03/22 11/08/23 Rx aerosol inhaler shortness of breath or wheezing #8.5 grams aspirin 81 mg capsule 81 mg PO WEEKLY 05/03/22 11/08/23 History bupropion HCl 300 mg 24 hr tablet, 300 mg PO QAM 05/03/22 11/08/23 History extended release (Wellbutrin XL) cholecalciferol (vitamin D3) 25 25 mcg PO DAILY 05/03/22 11/08/23 History mcg (1,000 unit) tablet copper gluconate 2 mg tablet 3 mg PO DAILY 05/03/22 11/08/23 History cyclobenzaprine 10 mg tablet 10 mg PO BID PRN spasms 05/03/22 11/08/23 History duloxetine 30 mg capsule,delayed 60 mg PO DAILY 05/03/22 11/08/23 History release eszopiclone 3 mg tablet 3 mg PO HS 05/03/22 11/08/23 History levothyroxine 88 mcg tablet 88 mcg PO DAILY 05/03/22 11/08/23 History vunanixa-baccozot-tjjr 45 mg-folic 1 cap PO DAILY 05/03/22 11/08/23 History acid 800 mcg-vit K 120 mcg capsule (Bariatric Multivitamins) pravastatin 80 mg tablet 80 mg PO .PM 05/03/22 11/08/23 History valacyclovir 1 gram tablet 1,000 mg PO Q8H 10 days #30 tabs 10/13/23 11/08/23 Rx amlodipine 2.5 mg tablet 2.5 mg PO DAILY 10/17/23 11/08/23 History cyanocobalamin (vitamin B-12) 1,000 mcg subcut .Sunday10/17/23 11/08/23 History 1,000 mcg/mL injection solution hydrocodone 5 mg-acetaminophen 325 1 - 2 tablet PO Q6H PRN pain #20 10/20/23 11/08/23 Rx mg tablet tabs pregabalin 75 mg capsule 75 mg PO BID 11/02/23 11/08/23 History Laboratory Tests 11/08/23 08:15 POC Capillary Glucose 88 mg/dl (65-105) Patient hx anesthesia problems: none Family hx anesthesia problems: none Results Review: All pre-operative results and documents have been reviewed as part of the pre-operative evaluation. [facility] Past Medical History Medical History Anxiety Asthma Chronic lung disease Chronic pain syndrome Chronic, continuous use of opioids CVA (cerebral vascular accident) Fibromyalgia Hyperlipidemia Hypothyroid Kidney stones Melanoma [place] (nonalcoholic steatohepatitis) [place]ED[place] (obstructive sleep apnea) Surgical History Surgical History Gastric bypass status for obesity H/O cataract removal with insertion of prosthetic lens H/O lithotripsy H/O thyroidectomy H/O: hysterectomy Hx of appendectomy Hx of cervical spine surgery Family History Family History Sibling Family history of rheumatoid arthritis Mother Family history of lung cancer Social History Social History Smoking status: Never smoker Second hand tobacco smoke exposure: No Alcohol intake: never Substance use: never Substance use type: does not use Other substance usage details: THC gummies for s
[2023-11-08] MEDS: ceFAZolin 2 GM/D5W 50 ML 2 GM/50 ML BAG IVPB (09:31)
--- NOTE | 2023-11-08 10:19 | P.OP_ITS ---
Procedure Note - Detailed Date of Procedure 11/08/23 Pre-op Diagnosis Right renal stones Post-op Diagnosis Same Procedure Performed Cystoscopy, right ureteroscopy with laser lithotripsy, stone extraction, retrograde pyelography and right stent placement Surgeon Pj Sepulveda MD Anesthesia General Description of Procedure Patient brought the operative suite where she is prepped draped in routine sterile fashion while in dorsal lithotomy position after the uneventful induction of a general anesthetic. Cystoscopy was undertaken with 19 F rigid cystoscope. Bladder neck and urethra endoscopically normal. Bladder mucosa is normal without intravesical foreign body or neoplasm. 0.035 in glidewire was ad vanced into her right renal pelvis. The distal ureter was dilated with an 8 F 10 F dilator and then 11 F 13 F access sheath placed. The safety wire had previously been placed. Ureteroscopy was undertaken with a 7.5 F flexible digital ureteral scope. He has multiple stones in her kidney. Retrograde pyelography which obtained so as to ensure inspection of all calices. Smaller stones were extracted prior to laser lithotripsy with a 1.9 F disposable stone basket. Larger stones were fractured and all pieces are removed. Placed a 4.8 F variable length ureteral stent with proximal coil in the renal pelvis and distal coil in the bladder. Scopes and wires removed she was taken recovery room good condition. Drains No Packing No
[2023-11-08] MEDS: fentaNYL CITRATE INJ (*CRX) 100 MCG/2 ML VIAL 25 MCG IV PUSH ×4 (10:43→10:50)
[2023-11-08] MEDS: oxyCODONE HCL (*CRX) 5 MG TAB IR PO (11:24)
== END 2023-11-08 12:00 | disposition home or self-care (01) ==
PROVIDERS: PCP Internal Medicine; Visit Provider Urology
PROC: (CPT 52352; principal; 2023-11-08 09:45)
DX: N20.0 Calculus of kidney (principal); I10 Essential (primary) hypertension; E78.5 Hyperlipidemia, unspecified; E03.9 Hypothyroidism, unspecified; K75.81 Nonalcoholic steatohepatitis (NASH); K21.9 Gastro-esophageal reflux disease without esophagitis; G47.33 Obstructive sleep apnea (adult) (pediatric); J45.909 Unspecified asthma, uncomplicated; N32.89 Other specified disorders of bladder; R33.9 Retention of urine, unspecified; R31.29 Other microscopic hematuria; M35.9 Systemic involvement of connective tissue, unspecified; J98.4 Other disorders of lung; G89.4 Chronic pain syndrome; K58.9 Irritable bowel syndrome, unspecified; F41.9 Anxiety disorder, unspecified; E66.9 Obesity, unspecified; Z68.34 Body mass index [BMI] 34.0-34.9, adult; Z79.51 Long term (current) use of inhaled steroids; Z79.82 Long term (current) use of aspirin; Z79.891 Long term (current) use of opiate analgesic; Z98.890 Other specified postprocedural states; Z98.84 Bariatric surgery status; Z98.1 Arthrodesis status; Z85.820 Personal history of malignant melanoma of skin; Z86.79 Personal history of other diseases of the circulatory system; Z80.1 Family history of malignant neoplasm of trachea, bronchus and lung; Z82.49 Family history of ischemic heart disease and other diseases of the circulatory system
CPT/HCPCS: 52356; 74420; 82365; 82948; 88300; A9270; C1769; C1894; C2617; J0690; J1100; J2003; J2250; J2405; J2704; J3010; J7120; Q9966

== ENCOUNTER 2024-02-10 13:29 | Emergency (ER) | payer MEDICARE, BC, SELFPAY ==
--- NOTE | ~2024-02-10 | XR_ITS ---
CHEST RADIOGRAPH, PA AND LATERAL CLINICAL HISTORY: cough 10 days, UPPER BACK PAIN . COMPARISON: 05/03/2022 TECHNIQUE: PA and lateral views of the chest. FINDINGS Slip Laster from a sleep apnea device detected projecting over the right pulmonary david. Small bore cath eter projects cranially off the submitted images. The remainder of the cardiomediastinal silhouette is otherwise unremarkable. The lungs are clear. Fixation hardware within the lower cervical spine. Diffuse bony demineralization within the thoracic spine. Remaining visualized osseous structures and soft tissues are unremarkable. IMPRESSION: No focal infiltrate or effusion. Reviewed, dictated and finalized at location A. TION CONSULTANT
--- NOTE | 2024-02-10 13:32 | ED_ITS ---
HPI - URI/Sore Throat General Chief Complaint: Upper Respiratory Infection Stated Complaint: burn chest/cough Time Seen by Provider: 02/10/24 13:39 Source: patient, RN notes reviewed and old records reviewed Mode of arrival: ambulatory Limitations: no limitations History of Present Illness HPI Narrative: 64-year-old female presents to the [facility] with complaints of a cough for 10 days. Symptoms started on the 30 January,10 days ago. Patient states at that time was diagnosed with a sinus infection and prescribed cefdinir. States this symptoms have continued, states they did get a little bit better on the and but have since returned. Related Data Home Medications ?Medication ?Instructions ?Recorded ?Confirmed ?Last Taken ?Type aspirin 81 mg capsule 81 mg PO WEEKLY 05/03/22 11/08/23 Unknown History bupropion HCl 300 mg 24 hr tablet, 300 mg PO QAM 05/03/22 11/08/23 Unknown History extended release (Wellbutrin XL) cholecalciferol (vitamin D3) 25 25 mcg PO DAILY 05/03/22 02/10/24 Unknown History mcg (1,000 unit) tablet copper gluconate 2 mg tablet 3 mg PO DAILY 05/03/22 11/08/23 Unknown History cyclobenzaprine 10 mg tablet 10 mg PO Q8H PRN spasms 05/03/22 11/08/23 Unknown History duloxetine 30 mg capsule,delayed 60 mg PO DAILY 05/03/22 02/10/24 Unknown History release levothyroxine 88 mcg tablet 88 mcg PO DAILY 05/03/22 11/08/23 Unknown History oskavrkp-rbnupjjx-ozbo 45 mg-folic 1 cap PO DAILY 05/03/22 11/08/23 Unknown History acid 800 mcg-vit K 120 mcg capsule (Bariatric Multivitamins) pravastatin 80 mg tablet 80 mg PO .PM 05/03/22 11/08/23 Unknown History amlodipine 2.5 mg tablet 2.5 mg PO DAILY 10/17/23 11/08/23 Unknown History cyanocobalamin (vitamin B-12) 1,000 mcg subcut .Sunday10/17/23 11/08/23 Unknown History 1,000 mcg/mL injection solution alprazolam 0.5 mg tablet 0.5 mg PO QHS 02/10/24 Unknown History buspirone 15 mg tablet 15 mg PO BID 02/10/24 Unknown History cholecalciferol (vitamin D3) 125 125 mcg PO DAILY 02/10/24 Unknown History mcg (5,000 unit) capsule clobetasol 0.05 % topical ointment 1 g topical DAILY 02/10/24 Unknown History duloxetine 60 mg capsule,delayed 60 mg PO DAILY 02/10/24 Unknown History release estradiol 0.01% (0.1 mg/gram) 1 g vaginal WEEKLY 02/10/24 Unknown History vaginal cream losartan 100 mg tablet 50 mg PO BID 02/10/24 Unknown History losartan 25 mg tablet mg 02/10/24 Unknown History spironolactone 25 mg tablet 25 mg PO DAILY 02/10/24 Unknown History temazepam 15 mg capsule 15 mg PO QHS PRN sleep 02/10/24 Unknown History tizanidine 4 mg tablet 4 mg PO Q8H PRN muscle spasticity 02/10/24 Unknown History Allergies Allergy/AdvReac Type Severity Reaction Status Date / Time meperidine (From Demerol) Allergy Severe Hives Verified 02/10/24 13:34 levofloxacin (From Levaquin) AdvReac Intermediate INFLAMED Verified 02/10/24 13:34 TENDONS adhesive tape AdvReac Blister Verified 02/10/24 13:34 codeine AdvReac Hives Verified 02/10/24 13:34 Review of Systems Review of Systems: All systems reviewed & are unremarkable except as noted in HPI and below Constitutional: Constitutional: Reports no additional constitutional complaints ENT: Reports system reviewed and no additional complaints, except as documented Cardiovascular: Cardiovascular: Reports no additional cardiovascular complaints, Denies chest pain and Denies dyspnea Respiratory: Respiratory: Reports as per HPI, Reports chest congestion, Reports cough and Denies dyspnea Musculoskeletal: Musculoskeletal: Reports no additional musculoskeletal complaints Integumentary/Breasts: Skin/Breast: Reports system reviewed and no additional complaints, except as docu PMFSH Past Medical History Medical History Melanoma Chronic, continuous use of opioids [place] (nonalcoholic steatohepatitis) MEREDITH (obstructive sleep apnea) Kidney stones Hypothyroid Anxiety Fibromyalgia CVA (cerebral vascular accident) Asthma Hyperlipidemia Chronic pain syndrome Chronic lung disease Surgical History Surgical History Gastric bypass status for obesity H/O cataract removal with insertion of prosthetic lens Hx of appendectomy H/O: hysterectomy H/O thyroidectomy Hx of cervical spine surgery H/O lithotripsy Family History Family History Sibling Family history of rheumatoid arthritis Mother Family history of lung cancer Social History Social History Smoking status: Never smoker Second hand tobacco smoke exposure: No Alcohol intake: never Substance use: never Substance use type: does not use Other substance usage details: THC gummies for sleep. Do You Feel Safe in your Home?: Yes Lack of Transportation: No Lack of Food: Never True Current Housing: I Have Housing Concerned About Future Housing: No Difficulty Paying Gas/Electric Bills: No Difficulty Paying for Meds: No Currently Unemployed: No Education: Trade/Vocational Certificate Difficulty w/ Childcare or Family Care: No Living arrangements: with family Additional living arrangements comments: Gender identity (if verbalized by the patient): Female Spiritual care concerns: No Comments At the time of my signature, I reviewed and agree with the nursing past medical, surgical, social, and family history. There is no relevant family history pertinent to the patient complaint. Exam Const: General: cooperative, no acute distress, well developed, alert, ill appearing chronically; not acutely, well groomed and well nourished Nutritional Appearance: well nourished Orientation/consciousness: patient oriented x3 Limitations: no limitations HENMT: Head: normal to inspection Ears: hearing grossly normal bilaterally, external ears normal, TM's normal bilaterally, EAC's normal, mastoids normal and no periauricular adenopathy Mouth: Yes Normal oral and palatal mucosa present, Yes lip normal, Yes tongue normal and Yes moist mucous membranes Throat: posterior oropharynx normal, uvula midline, postnasal drainage and no uvular edema Eyes: General: appearance normal, both eyes and all related structures Alignment and Position: alignment normal Neck: Neck: normal visual inspection, full ROM, no lymphadenopathy and no meningeal signs Chest: Chest palpation & inspection: normal inspection of the chest Resp: Effort & Inspection: normal respiratory effort and able to speak in complete sentences Auscultation: clear to auscultation bilaterally, no crackles, no rales, no rhonchi and no wheezes Cardio: Rate: regular rate Skin: General skin exam: normal color and no rashes or lesions noted Neuro: General: patient oriented x3, gait normal, moves all extremities and no meningeal signs Cognition (Neuro): normal cognition Speech: normal speech Gait exam (Neuro): Normal gait present Extrem: General: normal to inspection, full ROM, capillary refill normal and normal gait Psych: Appearance: grossly normal and well kempt Mental Status: mental status grossly normal Speech and movement: Normal speech and movement present and Clear speech present Affect: normal affect Attitude: cooperative Course Course Level of Care: Express Care Visit Vital Signs Vital signs: Vital Signs Temperature 97.4 F L 02/10/24 13:33 Pulse Rate 108 H 02/10/24 13:33 Respiratory Rate 16 02/10/24 13:33 Blood Pressure 144/66 H 02/10/24 13:33 Pulse Oximetry 97 02/10/24 13:33 Oxygen Delivery Room Air 02/10/24 13:33 Temperature 97.4 F L 02/10/24 13:33 Pulse Rate 108 H 02/10/24 13:33 Respiratory Rate 16 02/10/24 13:33 Blood Pressure 144/66 H 02/10/24 13:33 Pulse Oximetry 97 02/10/24 13:33 Oxygen Delivery Room Air 02/10/24 13:33 Reviewed MDM - URI/Sore Throat MDM Narrative Medical decision making narrative: Patient sitting comfortably in exam room. Nontoxic, vitals stable. Patient in no acute distress. Patient presents with a cough times 10 days, has already been treated with antibiotic. Patient reports Having enough albuterol at home. Trace negative for acute findings Patient appropriate for outpatient treatment of bronchitis with close follow-up. Discharge instructions reviewed with patient, as well as provided in writing per nursing staff. The instructions also include specific and strict return/GO TO THE ER as well as f/u information. All questions have been answered, and the patient deny any further questions with discharge and discharge plan. Some parts of this dictation were generated by voice recognition software and may contain typographical and/or grammatical inaccuracies. Differential Diagnosis Differential diagnosis: Likely upper respiratory infection, otitis media, sinusitis, viral infection and bronchitis Imaging Data Radiologist's impression: CHEST RADIOGRAPH, PA AND LATERAL CLINICAL HISTORY: cough 10 days, UPPER BACK PAIN . COMPARISON: 05/03/2022 TECHNIQUE: PA and lateral views of the chest. FINDINGS Roll Forming Machine Operator from a sleep apnea device detected projecting over the right pulmonary david. Small bore catheter projects cranially off the submitted images. The remainder of the cardiomediastinal silhouette is otherwise unremarkable. The lungs are clear. Fixation hardware within the lower cervical spine. Diffuse bony demineralization within the thoracic spine. Remaining visualized osseous structures and soft tissues are unremarkable. IMPRESSION: No focal infiltrate or effusion. Critical Care Time Critical Care Time Critical Care Time: No Discharge Plan Discharge Clinical Impression: Bronchitis Patient Disposition: Home, Self-Care Condition: Stable Instructions: Antibiotic Form, Acute Bronchitis (ED) Additional Instructions: Today your x-ray did not show signs of a pneumonia. Take the steroid as prescribed Use your albuterol inhaler 4 times a day for 3 days and then as needed. Follow-up with your primary care provider this week Today your blood pressure is 144/66. Is recommended you follow-up with your primary care provider to have this recheck within 2 weeks for new or worsening symptoms go directly to the emergency room Patient Language: Occitan Prescriptions: New prednisone 20 mg tablet See Rx Instructions .Route .COMPLEX Qty: 9 0RF Rx Instructions: Take 40 mg daily for 3 days, 20 mg daily for 3 days No Action levothyroxine 88 mcg tablet 88 mcg PO DAILY pravastatin 80 mg tablet 80 mg PO .PM copper gluconate 2 mg Tablet 3 mg PO DAILY bupropion HCl [Wellbutrin XL] 300 mg Tablet Extended Release 24 Hr 300 mg PO QAM cholecalciferol (vitamin D3) 25 mcg (1,000 unit) Tablet 25 mcg PO DAILY Bariatric Multivitamins 45 mg iron- 800 mcg-120 mcg Capsule 1 cap PO DAILY aspirin 81 mg Capsule 81 mg PO WEEKLY Patient Comments: PT TAKES ON SUNDAY Rx Instructions: Sundays cyclobenzaprine 10 mg Tablet 10 mg PO Q8H PRN (Reason: spasms) duloxetine 30 mg Capsule,Delayed Release(Dr/Ec) 60 mg PO DAILY albuterol sulfate 90 mcg/actuation HFA aerosol inhaler 2 puff inhalation QID PRN (Reason: shortness of breath or wheezing) Qty: 8.5 0RF tizanidine 4 mg tablet 4 mg PO Q8H PRN (Reason: muscle spasticity) spironolactone 25 mg tablet 25 mg PO DAILY alprazolam 0.5 mg tablet 0.5 mg PO QHS temazepam 15 mg capsule 15 mg PO QHS PRN (Reason: sleep) losartan 25 mg tablet clobetasol 0.05 % ointment 1 g TOPICAL DAILY estradiol 0.01 % (0.1 mg/gram) cream 1 g VAGINAL WEEKLY losartan 100 mg tablet 50 mg PO BID cholecalciferol (vitamin D3) 125 mcg (5,000 unit) capsule 125 mcg PO DAILY buspirone 15 mg tablet 15 mg PO BID duloxetine 60 mg capsule,delayed release(DR/EC) 60 mg PO DAILY valacyclovir 1 gram tablet 1,000 mg PO Q8H 10 Days Qty: 30 0RF Rx Instructions: Says takes twice a day. amlodipine 2.5 mg tablet 2.5 mg PO DAILY cyanocobalamin (vitamin B-12) 1,000 mcg/mL solution 1,000 mcg subcut .SUNDAY Follow-up/Referrals: Shelly,Jona Fonseca MD [Primary Care Provider] - 1 Week ([facility] follow-up) Time of Disposition: 14:29
[2024-02-10 13:33] VITALS: BP 144/66; PULSE 108; RESP 16; TEMP 36.3; O2SAT 97
--- OUTSIDE RECORDS SUMMARY | 2024-02-17 06:15 | XMS_ITS ---
Author Organization [employer] [facility] Address [address] [place] [address] Care Team Providers Care Supply Aide Name Role Phone Kathi Zimmerman Primary Care Provider REASON FOR VISIT [facility] Billing Issue Encounters Encounter Location Date Provider Diagnosis [facility], [facility] - Kathi Zimmerman [address] [place] [address] 01/21/2024 Kathi Zimmerman Plan Of Treatment No Information Progress Notes * Javon GRESHAMOB:[birth year] (63 yo F)Acc No.[id number]:01/21/2024 Patient:?MPTieraTiffanie :1960???Age:63 Y???Sex:Female Address:[address] [place] [address] * true * Date:? 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
--- OUTSIDE RECORDS SUMMARY | 2024-02-17 06:15 | XMS_ITS ---
Author Organization [facility] Address [address] [place] [address] Care Team Providers Care Teradata Developer Name Role Phone Kathi Zimmerman Primary Care Provider REASON FOR VISIT Vit D billing issue Encounters Encounter Location Date Provider Diagnosis [facility], [facility] - Kathi Zimmerman [address] [place] [address] 01/22/2024 Kathi Zimmerman Plan Of Treatment No Information Progress Notes * Javon GRESHAMOB:[birth year] (64 yo F)Acc No.[id number]:01/22/2024 Patient:?Rubén GRESHAMte :1960???Age:63 Y???Sex:Female Address:[address] [place] [address] * true * Date:? 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
--- OUTSIDE RECORDS SUMMARY | 2024-02-17 06:16 | XMS_ITS | Patient Health Record ---
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 Name Role Phone Kathi Aragon Primary Care Provider [phone] Migration, Provider Unavailable Unavailable Allergies Allergen (clinical drug ingredient) Drug/Non Drug Allergy documented on EMR Reaction Allergy Type Onset Date Status meperidine Meperidine Unknown Drug Allergy Activ e codeine Codeine Unknown Drug Allergy Active levofloxacin levoFLOXacin Unknown Drug Allergy A ctive gabapentin Gabapentin Unknown Drug Allergy Activ e doxycycline Doxycycline Unknown Drug Allergy Act miguel Results Component Value Reference Range Notes COMPREHENSIVE METABOLIC PANE L Reviewed date:05/10/2023 11:28:15 AM Interpretation: Performing Lab:[facility], [address] [place], [address] Law Nathan MD Notes/Report: FASTING:YES FASTING: YES VITAMIN D, 25-HYDROXY, LC/MS /MS Reviewed date:05/10/2023 11:27:08 AM Interpretation: Performing Lab:[facility], [address] [place], [address] Law Nathan MD Notes/Report: FASTING:YES FASTING: YES T3, FREE Reviewed date:05/06/2023 06:49:50 PM Interpretation: Performing Lab:[facility], [address] [place], [address] Law Nathan MD Notes/Report: FASTING:YES FASTING: YES HEMOGLOBIN A1c Reviewed date:05/10/2023 11:26:48 AM Interpretation: Performing Lab:[facility], [address], [place], [address] LynnetteJuani Nathan Notes/Report: FASTING:YES FASTING: YES CBC (INCLUDES DIFF/PLT) Reviewed date:05/10/2023 11:27:36 AM Interpretation: Performing Lab:[facility], [address], [place], [address] Law Nathan MD Notes/Report: FASTING:YES FASTING: YES MICROALBUMIN, RANDOM URINE ( W/CREATININE) Reviewed date:05/10/2023 11:27:45 AM Interpretation: Performing Lab:[facility], [address], [place], [address] Law Nathan MD Notes/Report: FASTING:YES FASTING: YES T4, FREE Reviewed date:05/06/2023 06:49:39 PM Interpretation: Performing Lab:[facility], [address], [place], [address] Law Nathan MD Notes/Report: FASTING:YES FASTING: YES TSH Reviewed date:05/06/2023 06:49:27 PM Interpretation: Performing Lab:[facility], [address], [place], [address] Law Nathan MD Notes/Report: FASTING:YES FASTING: YES IRON, TIBC AND FERRITIN PANE L Reviewed date:05/15/2023 11:19:58 AM Interpretation: Performing Lab:[facility], [address], [place], [address] Law Nathan MD Notes/Report: FASTING:YES FASTING: YES IRON, TOTAL 82 45-160 mcg/dL IRON BINDING CAPACITY 476 250-450 mcg/dL (fortunato c) % SATURATION 17 16-45 % (calc) FERRITIN 7 16-288 ng/mL CBC (INCLUDES DIFF/PLT) Reviewed date:05/18/2023 09:01:57 AM Interpretation: Performing Lab:[facility], [address], [place], [address] Law Nathan MD Notes/Report: FASTING:YES FASTING: YES COMPREHENSIVE METABOLIC PANE L Reviewed date:09/04/2023 08:01:57 PM Interpretation: Performing Lab:[facility], [address], [place], [address] Law Nathan MD Notes/Report: FASTING:YES PATIENT REFUSED SOME TESTING; PATIENT ENCOURAGED TO RETURN. FASTING: YES ACTH, PLASMA Reviewed date:09/09/2023 07:11:40 PM Interpretation: Performing Lab:[facility], [address] [facility] , [place], [address] Donnie Coelho M.D.,PhD Notes/Report: FASTING:YES PATIENT REFUSED SOME TESTING; PATIENT ENCOURAGED TO RETURN. FASTING: YES T3, FREE Reviewed date:09/04/2023 08:03:42 PM Interpretation: Performing Lab:[facility], [address], [place], [address] Law Nathan MD Notes/Report: FASTING:YES PATIENT REFUSED SOME TESTING; PATIENT ENCOURAGED TO RETURN. FASTING: YES HEMOGLOBIN A1c Reviewed date:09/09/2023 07:11:18 PM Interpretation: Performing [facility], [address] , [place], [address] Law Nathan Notes/Report: FASTING:YES PATIENT REFUSED SOME TESTING; PATIENT ENCOURAGED TO RETURN. FASTING: YES CBC (INCLUDES DIFF/PLT) Reviewed date:09/04/2023 08:02:20 PM Interpretation: Performing Lab:[facility], [address], [place], [address] Law Nathan MD Notes/Report: FASTING:YES PATIENT REFUSED SOME TESTING; PATIENT ENCOURAGED TO RETURN. FASTING: YES IRON AND TOTAL IRON BINDING CAPACITY Reviewed date:09/04/2023 08:03:16 PM Interpretation: Performing Lab:[facility], [address], [place], [address] Law Nathan MD Notes/Report: FASTING:YES PATIENT REFUSED SOME TESTING; PATIENT ENCOURAGED TO RETURN. FASTING: YES LIPID PANEL Reviewed date:09/04/2023 08:01:39 PM Interpretation: Performing Lab:[facility], [facility], [address] [place], [address] Law Nathan MD Notes/Report: FASTING:YES PATIENT REFUSED SOME TESTING; PATIENT ENCOURAGED TO RETURN. FASTING: YES T4, FREE Reviewed date:09/04/2023 08:03:25 PM Interpretation: Performing Lab:[facility], [facility], [address], [place], [address] Law Nathan MD Notes/Report: FASTING:YES PATIENT REFUSED SOME TESTING; PATIENT ENCOURAGED TO RETURN. FASTING: YES TSH Reviewed date:09/04/2023 08:03:33 PM Interpretation: Performing Lab:[facility], [facility], [address], [place], [address] Law Nathan MD Notes/Report: FASTING:YES PATIENT REFUSED SOME TESTING; PATIENT ENCOURAGED TO RETURN. FASTING: YES Reason For Referral No Information Medications Medication SIG (Take, Route, Frequency, Duration) Notes Start Date End Date Status Prolia 60 MG/ML as directed subcutaneously every 6 months for 180 days 05/09/2023 Not-Taking Prolia 60 MG/ML as directed subcutaneously every 6 months for 180 days 06/07/2023 Not-Taking buPROPion HCl ER (XL) 300 MG 1 tab(s) orally every 24 hours Active GVOKE HYPOPEN TWO PACK 1 MG/0.2 ML DIRECTED SUBCUTANEOUSLY ONCE for 1 DAYS *Please review for potential replacement for e-prescription and drug interaction check* 06/14/2023 Not-Taking Albuterol Sulfate HFA 108 (90 Base) MCG/ACT 2 puff(s) inhaled every 6 hours Active tiZANidine HCl 4 MG 2 cap(s) orally 3 times a day Active Levothyroxine Sodium 88 MCG 1 tab(s) orally once a day Active GVOKE HYPOPEN ONE PACK 1 MG/0.2 ML DIRECTED SUBCUTANEOUSLY ONCE for 1 DAYS *Please review for potential replacement for e-prescription and drug interaction check* 03/30/2023 Active Prolia 60 MG/ML as directed subcutaneously every 6 months for 1 days 03/30/2023 Active Xanax 0.5 MG 1 tab(s) orally at bedtime for 90 days 11/07/2023 Not-Taking GVOKE HYPOPEN TWO PACK 1 MG/0.2 ML DIRECTED SUBCUTANEOUSLY ONCE NEEDED FOR SUGARS UNDER 50 MG/DL for 1 DAYS *Please review for potential replacement for e-prescription and drug interaction check* 12/21/2023 Not-Taking GVOKE HYPOPEN TWO PACK 1 MG/0.2 ML INJECT 1 MG NEEDED SUBCUTANEOUSLY ONCE for 1 DAYS *Please review for potential replacement for e-prescription and drug interaction check* 06/15/2023 Not-Taking Ferrous Sulfate 300 MG/5 ML 5 ML ORALLY ONCE A DAY for 90 DAYS *Please review and pick correct strength-formula tion from [employer]uddle options. If intended option is not shown, discontinue and re-order from Quick Search* 06/15/2023 Not-Taking Denosumab 60 MG/ML INJECT 60 MG SUBCUTANEOUSLY EVERY 6 MONTHS for 1 DAYS *Please review and pick correct strength-formula tion from [employer] options. If intended option is not shown, discontinue and re-order from Quick Search* 06/28/2023 Not-Taking Pregabalin 75 MG 1 cap(s) orally 2 times a day for 30 days 10/27/2023 Not-Taking Pregabalin 100 MG 1 cap(s) orally 2 times a day for 30 days 10/30/2023 Not-Taking Iron Up 10 MG/0.3 ML 1 ML ORALLY TWICE DAILY WITH MEALS for 90 DAYS *Please review and pick correct strength-formula tion from [employer] options. If intended option is not shown, discontinue and re-order from Quick Search* 05/18/2023 Not-Taking Prolia 60 MG/ML as directed subcutaneously every 6 months for 12 days 05/25/2023 Not-Taking Vitamin D3 Active Eszopiclone 3 MG 1 tab(s) orally once a day (at bedtime) Not-Taking DULoxetine HCl 60 MG 1 capsule Orally Once a day Active Aspirin 81 MG 1 tab(s) orally once a day Not-Taking amLODIPine Besylate 5 MG 1 tablet Orally Once a day As needed Active Pravastatin Sodium 80 MG 1 tab(s) orally once a day Active Spironolactone 25 MG 1 tablet Orally Active Potassium Citrate ER 10 MEQ (1080 MG) 1 tab(s) orally 3 times a day Not-Taking Cyanocobalamin 1000 MCG/ML inject 1000 mcg subcutaneously once weekly for 90 days 06/25/2023 Active Magnesium Oxide 500 MG 1 TAB(S) ORALLY ONCE A DAY *Please review and pick correct strength-formula tion from [employer]uddle options. If intended option is not shown, discontinue and re-order from Quick Search* Not-Taking HYDROcodone Bitartrate ER 10 MG 1 cap(s) orally every 12 hours 1 TABLET EVERY 6 HOURS FOR PAIN Active Estradiol 1 MG/1 G (0.1%) 1 EA TRANSDERMALLY ONCE A DAY *Please review and pick correct strength-formula tion from [employer]uddle options. If intended option is not shown, discontinue and re-order from Quick Search* Active Problems Problem Type SNOMED Code ICD Code Onset Dates Problem Status W/U Status Risk Notes Problem Hyperglycemia due to type 2 diabetes mellitus (894715571364272) Type 2 diabetes mellitus with hyperglycemia (E11.65) Active confirmed Problem Hyperlipidemia (60135777) Hyperlipidemia, unspecified (E78.5) Active confirmed Problem Type II diabetes mellitus without complication (267115491) Type 2 diabetes mellitus without complications (E11.9) Active confirmed Problem Hypothyroidism (54501621) Hypothyroidism, unspecified (E03.9) Active confirmed Problem Obesity (552138142) Obesity, unspecified (E66.9) Active confirmed Problem Post-herpetic trigeminal neuralgia (17911289) Postherpetic trigeminal neuralgia (B02.22) Active confirmed Problem Postherpetic neuralgia (2180033) Other postherpetic nervous system involvement (B02.29) Active confirmed Problem Hypoglycemia due to type 2 diabetes mellitus (081160738521678) Type 2 diabetes mellitus with hypoglycemia without coma (E11.649) Active confirmed Problem Hypoglycemia (099586708) Hypoglycemia, unspecified (E16.2) Active confirmed Problem Insomnia (584958256) Insomnia due to medical condition (G47.01) Active confirmed Problem Age-related osteoporosis (188420679) Age-related osteoporosis without current pathological fracture (M81.0) Active confirmed Problem Chronic fatigue syndrome (disorder) (17799849) Chronic fatigue, unspecified (R53.82) Active confirmed Vital Signs Heart Rate 73 /min 01/21/2024 Respiratory Rate 98% /min 03/30/2023 Blood pressure diastolic 78 mm Hg 01/21/2024 Height 63 in 01/21/2024 Blood pressure systolic 138 mm Hg 01/21/2024 Weight 188.4 lbs 01/21/2024 BMI 33.37 kg/m2 01/21/2024 Encounters Encounter Location Date Provider Diagnosis [facility] Renetta Aragon [address] [place] [address] 05/10/2023 Kathi Aragon Type 2 diabetes mellitus with hypoglycemia without coma E11.649 ; Hypoglycemia, unspecified E16.2 ; Chronic fatigue, unspecified R53.82 and Type 2 diabetes mellitus with hyperglycemia E11.65 [facility] Kathi Aragon [address] [place] [address] 06/15/2023 Kathi Aragon Type 2 diabetes mellitus with hypoglycemia without coma E11.649 ; Hypothyroidism, unspecified E03.9 ; Iron deficiency E61.1 and Hyperlipidemia, unspecified E78.5 [facility] Kathi Aragon [address] [place] [address] 01/21/2024 Kathi Aragon Type 2 diabetes mellitus without complications E11.9 ; Hypoglycemia, unspecified E16.2 ; Age-related osteoporosis without current pathological fracture M81.0 ; Hyperlipidemia, unspecified E78.5 ; Obesity, unspecified E66.9 and Dietary counseling and surveillance Z71.3 [facility] [address] [place] [address] 12/22/2023 Provider Migration Type 2 diabetes mellitus with hypoglycemia without coma E11.649 and Insomnia due to medical condition G47.01 [facility] [address] [place] [address] 03/30/2023 Kathi Aragon Type 2 diabetes mellitus without complications E11.9 ; Hypothyroidism, unspecified E03.9 ; Hypoglycemia, unspecified E16.2 ; Chronic fatigue, unspecified R53.82 ; Age-related osteoporosis without current pathological fracture M81.0 and Type 2 diabetes mellitus with hypoglycemia without coma E11.649 [facility] Kathi Aragon [address] [place] [address] 07/23/2023 Kathi Aragon Age-related osteoporosis without current pathological fracture M81.0 [facility] Kathi Aragon [address] [place] [address] 11/07/2023 Kathi Aragon Type 2 diabetes mellitus with hyperglycemia E11.65 and Type 2 diabetes mellitus with hypoglycemia without coma E11.649 [facility] [address] [place] [address] 04/24/2023 Kathi Aragon [facility] [address] [place] [address] 05/09/2023 [facility] - Kathi Aragon [address] [place] [address] 05/17/2023 Kathi Aragon [facility] [address] [place] [address] 05/18/2023 Kathi Aragon Iron deficiency E61. 1 [facility] [address] [place] [address] 05/21/2023 Kathi [facility] - Kathi Aragon [address] [place] [address] 05/21/2023 Kathi Aragon [facility] [address] [place] [address] 05/25/2023 Kathi Aragon Age-related osteoporosis without current pathological fracture M81.0 [facility] - Kathi Aragon [address] [place] [address] 05/31/2023 Kathi Aragon [facility] [address] [place] [address] 06/07/2023 Kathi Aragon [facility] [address] [address] 06/08/2023 Kathi [facility] - Kathi Aragon [address] [place] [address] 06/14/2023 Kathi Aragon Type 2 diabetes mellitus with hypoglycemia without coma E11.649 [facility] - Kathi Aragon [address] [place] [address] 06/25/2023 Kathi Aragon Vitamin B12 deficiency anemia, unspecified D51.9 [facility] - Kathi Aragon [address] [place] [address] 06/28/2023 Kathi Aragon Age-related osteoporosis without current pathological fracture M81.0 [facility] - Kathi Aragon [address] [place] [address] 07/04/2023 Kathi Aragon [facility] - Kathi Aragon [address] [place] [address] 10/04/2023 Kathi Aragon [facility] [address] [place] [address] 10/12/2023 Kathi Erasmo [facility] [address] [place] [address] 10/12/2023 Kathi Erasmo [facility] [address] [place] [address] 10/27/2023 Kathi Aragon Other postherpetic nervous system involvement B02.29 [facility] - Kathi Aragon [address] [place] [address] 10/30/2023 Kathi Aragon Postherpetic trigeminal neuralgia B02.22 [facility] [address] [place] [address] 11/05/2023 Kathi [facility] - Kathi Aragon [address] [place] [address] 11/06/2023 Kathi Ersamo [facility] [address] [place] [address] 11/07/2023 Kathi Aragon Insomnia due to medical condition G47.01 [facility] - Kathi Aragon [address] [place] [address] 12/20/2023 Kathi [facility] - Kathi Aragon [address] [place] [address] 12/21/2023 Kathi Aragon Type 2 diabetes mellitus with hypoglycemia without coma E11.649 [facility] - Kathi Aragon [address] [place] [address] 01/21/2024 Kathi [facility] - Kathi Aragon [address] [place] [address] 01/22/2024 Kathi Aragon Assessments Encounter Date Diagnosis (ICD Code) Assessment Notes Treatment Notes Treatment Clinical Notes Section Notes 05/10/2023 Type 2 diabetes mellitus with hypoglycemia without coma (ICD-10 - E11.649) 06/15/2023 Hypothyroidism, unspecified (ICD-10 - E03.9) Continue LT4 88 mcg daily as thyroid levels in ideal range. 06/15/2023 Type 2 diabetes mellitus with hypoglycemia without coma (ICD-10 - E11.649) a1c of 5.3%- due to previous hx of gastric bypass patient struggles with chronic hypoglycemia- dropped down to 48 mg/dL and unable to take glucose by mouth- will send for Gvoke rescue pens to [facility] pharmacy and sent yesterday to [facility] pharmacy so patient has ample stores of glucagon rescue. She is working on diet still to optimize her insulin sensitizing effects- recommended she have a protein shake before bedtime or cottage cheese at least 20 grams of protein and 10 grams of carbs/starchy preferably to avoid dips/drops overnight. Patient doing well since eversense placement. On CGM review she is running in range 80% of time with hypoglycemia 15% of time- she tends to run 50-70 mg/dl low and does respond well to glucose. Discussed managing diet and incorporating more protein and complex carbs into diet. 01/21/2024 Type 2 diabetes mellitus without complications (ICD-10 - E11.9) 12/22/2023 Type 2 diabetes mellitus with hypoglycemia without coma (ICD-10 - E11.649) 12/22/2023 Insomnia due to medical condition (ICD-10 - G47.01) 03/30/2023 Type 2 diabetes mellitus without complications (ICD-10 - E11.9) A1C of 5.3% off all medications at this time. Discussed carb counting and how to read food labels. Recommended patient to utilize the diabetesAppleTreeBook.Green Genes from the ADA website to help with food preparation as this presents ideal carb content per meal and will make carb counting easier for patient. Recommended she incorporate natural insulin sensitizers such as pears, apples, cinnamon, karmen and sweet potatoes to help mobilize her endogenous insulin. Recommended up to 150 minutes of moderate level activity /exercise per week. 07/23/2023 Age-related osteoporosis without current pathological fracture (ICD-10 - M81.0) Patient tolerated prolia injection without site reaction or pain. Will repeat in 6 months in mid Jan 2024. 11/07/2023 Type 2 diabetes mellitus with hyperglycemia (ICD-10 - E11.65) 05/18/2023 Iron deficiency (ICD-10 - E61.1) 05/25/2023 Age-related osteoporosis without current pathological fracture (ICD-10 - M81.0) 06/14/2023 Type 2 diabetes mellitus with hypoglycemia without coma (ICD-10 - E11.649) 06/25/2023 Vitamin B12 deficiency anemia, unspecified (ICD-10 - D51.9) 06/28/2023 Age-related osteoporosis without current pathological fracture (ICD-10 - M81.0) 10/27/2023 Other postherpetic nervous system involvement (ICD-10 - B02.29) 10/30/2023 Postherpetic trigeminal neuralgia (ICD-10 - B02.22) 11/07/2023 Insomnia due to medical condition (ICD-10 - G47.01) 12/21/2023 Type 2 diabetes mellitus with hypoglycemia without coma (ICD-10 - E11.649) 05/10/2023 Hypoglycemia, unspecified (ICD-10 - E16.2) 06/15/2023 Iron deficiency (ICD-10 - E61.1) Trial on liquid iron as patient struggles to absorb via her gut. Discussed potentially having her home health care provider consider iron infusions due to her history of malabsorption. Will send in 300 mg/5 ml daily for now to start as patient does have fatigue that is not improved with B12 injections. 01/21/2024 Hypoglycemia, unspecified (ICD-10 - E16.2) 03/30/2023 Hypothyroidism, unspecified (ICD-10 - E03.9) Continue LT4 88 mcg daily as recent TSH in range from February labwork-patient doing well. 03/30/2023 Hypoglycemia, unspecified (ICD-10 - E16.2) Significant in nature occurs at least twice a week dropping as low as 30 mg/dL leading to confusion, weakness and fatigue. No history of seizures. Has had hospitalizations in past from hypoglycemia. Patient appears to be having an element of reactive hypoglycemia especially following gastric bypass surgery. Had revisions in Jan 2023 and still has lows twice weekly. She was advised to eat 5 to 6 small meals a day consisting of adequate protein and nonstarchy carbs and to avoid simple sugars such as sweet beverages, candies and pastries and take in more low fat dairy, beans, nuts and meats/greens. Send in glucagon / g voke pen as she would benefit from auto injectable glucagon to counteract severe hypoglycemia that could lead to hospitalization or potential . Will reach out to [employer] for CGM sensor as freestyle herrera/external sensors do not stick and they fall off after 2 days placement even with tagaderm placement. 11/07/2023 Type 2 diabetes mellitus with hypoglycemia without coma (ICD-10 - E11.649) 05/10/2023 Chronic fatigue, unspecified (ICD-10 - R53.82) Provided labwork to complete iron panel, ferritin, along with acth/cortisol to screen for JP and adrenal insufficiency. 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 06/15/2023 Hyperlipidemia, unspecified (ICD-10 - E78.5) Send for lipid panel to assess need to modify therapy. 01/21/2024 Age-related osteoporosis without current pathological fracture (ICD-10 - M81.0) 03/30/2023 Chronic fatigue, unspecified (ICD-10 - R53.82) vitamin B12 1000 mcg/1 mL SQ once weekly- called into [facility] in [place] as escribe would not allow me to prescribe. 05/10/2023 Type 2 diabetes mellitus with hyperglycemia (ICD-10 - E11.65) 01/21/2024 Hyperlipidemia, unspecified (ICD-10 - E78.5) 03/30/2023 Age-related osteoporosis without current pathological fracture (ICD-10 - M81.0) Recent bone density done in September 2022 c/w osteoporosis. Never started prolia injections -follows nephrology for hyperoxaluria stones- on potassium citrate. will reach out to start management due to hx of kidney stones would recommend against, forteo, tymlos or bisphosphonate therapy at this time. Patient agreed with plan. 01/21/2024 Obesity, unspecified (ICD-10 - E66.9) 03/30/2023 Type 2 diabetes mellitus with hypoglycemia without coma (ICD-10 - E11.649) Significant in nature occurs at least twice a week dropping as low as 30 mg/dL leading to confusion, weakness and fatigue. No history of seizures. Has had hospitalizations in past from hypoglycemia. Patient appears to be having an element of reactive hypoglycemia especially following gastric bypass surgery. Had revisions in Jan 2023 and still has lows twice weekly. She was advised to eat 5 to 6 small meals a day consisting of adequate protein and nonstarchy carbs and to avoid simple sugars such as sweet beverages, candies and pastries and take in more low fat dairy, beans, nuts and meats/greens. Send in glucagon / g voke pen as she would benefit from auto injectable glucagon to counteract severe hypoglycemia that could lead to hospitalization or potential . Will reach out to [employer] for CGM sensor as freestyle herrera/external sensors do not stick and they fall off after 2 days placement even with tagaderm placement. 01/21/2024 Dietary counseling and surveillance (ICD-10 - Z71.3) 03/30/2023 Other Spent 60 minute s preparing to see the patient (ex review of tests/chart), obtaining and / or reviewing separately obtained history, performing a medically appropriate examination and/or evaluation, counseling and educating the patient/family/caregi frank, ordering medications, tests, or procedures, referring and communicating with other health home care consultant, documenting clinical information in the electronic or other health record, independently interpreting results and communicating results to the patient/family/caregi frank and care coordinating patient plan. Patient alert and oriented x 4 and aware of discussion noted above and in agreeance to plan in management of recurrent hypoglycemia. hypothyroidism, type 2 DM. 05/10/2023 Other Provided letter to patient to excuse from jury duty as patient having more hypoglycemia and fatigue and patient not able to attend due to new findings and new symptoms. 06/15/2023 Other Spent 25 minutes preparing to see the patient (ex review of tests/chart), obtaining and / or reviewing separately obtained history, performing a medically appropriate examination and/or evaluation, counseling and educating the patient/family/caregi frank, ordering medications, tests, or procedures, referring and communicating with other health home care consultant, documenting clinical information in the electronic or other health record, independently interpreting results and communicating results to the patient/family/caregi frank and care coordinating patient plan. Patient alert and oriented x 4 and aware of discussion noted above and in agreeance to plan in management of hypoglycemia secondary to DM/gastric bypass, iron def anemia and hypothyroidism. We are waiting for prolia to arrive to clinic to provide prolia injection for history of osteoporosis. 01/21/2024 Other Assessment and Plan: 1. Fibromyalgia flare post-sleep apnea surgery - Continue monitoring pain levels and symptoms - Encourage patient to report any worsening or new symptoms 2. Hypoglycemia - Continue high protein diet/ diet devoid of refined and simple sugars - Use Gvoke shots as needed for low blood sugar emergencies - Maintain high-protein, low-carb, no refined sugars, and no processed foods diet - Due to replace eversense sensor in May 2024- will be annual placement after next placement 3. Vitamin D deficiency (E55.9) - Investigate billing and coding issues with [facility] - Obtain updated lab work once billing issues are resolved - Continue monitoring and treating deficiency as needed 4. Hypothyroidism - Continue levothyroxine 88 mcg daily - Monitor thyroid function with periodic lab work 5. Osteoporosis - Continue Prolia injections as prescribed-she was given a shot in clinic today- will be due in 6 months for repeat injection. - Encourage weight-bearing exercises and adequate calcium intake 6. General health and medication refills - No refills needed at this time - Continue monitoring overall health and address any new concerns as they arise 7. Lab work - Coordinate with Lavinia to obtain fasting labs for the patient - Review results and adjust treatment plans as necessary 8. Follow-up - Schedule a follow-up appointment to discuss lab results and monitor ongoing treatment plans Spent 15 minutes preventative counseling patient on dietary recommendations and changes in setting of hyperglycemia and weight management- need to restrict refined sugars and processed foods and incorporate up to 150 minutes of moderate level activity weekly. Spent 25 minutes preparing to see the patient (ex review of tests/chart), obtaining and / or reviewing separately obtained history, performing a medically appropriate examination and/or evaluation, counseling and educating the patient/family/caregi frank, ordering medications, tests, or procedures, referring and communicating with other health home care consultant, documenting clinical information in the electronic or other health record, independently interpreting results and communicating results to the patient/family/caregi frank and care coordinating patient plan. Patient alert and oriented x 4 and aware of discussion noted above and in agreeance to plan in management of hypoglycemia in setting of well controlled type 2 DM, dyslipidemia, vit D def and hypothyroidism, weight management. Plan Of Treatment Pending Test Test Name Order Date COMPREHENSIVE METABOLIC PANEL 03/30/2023 VITAMIN D, 25-HYDROXY, LC/MS/MS 03/30/19 24 T3, FREE 03/30/2023 HEMOGLOBIN A1c 03/30/2023 CBC (INCLUDES DIFF/PLT) 03/30/2023 MICROALBUMIN, RANDOM URINE (W/CREATININE ) 03/30/2023 VITAMIN B12/FOLATE, SERUM PANEL 03/30/19 24 T4, FREE 03/30/2023 TSH 03/30/2023 Insurance Providers Payer Name Payer Address Payer Phone Subscriber Number Group Number Insured Name Patient Relationship to Insured Coverage Start Date Coverage End Date Medicare [address] [address] [place] [address] [id number] Tiffanie Ruiz Self - patient is the insured [facility] [address] [address] [place] [address] [id number] Tiffanie Ruiz Self - patient is the insured Medical (General) History Medical History History ICD Code HYPOGLYCEMIA type 2 DM hypothyroidism osteoporosis Surgical History Surgery Date(Month/Year) gastric bypass
--- OUTSIDE RECORDS SUMMARY | 2024-02-17 06:16 | XMS_ITS ---
Author Organization [facility] justice Address [address] [place] [address] Care Team Providers Care Academic Affairs Manager Name Role Phone Shelly HALE, Jona Primary Care Provider Dave SaulMary Unavailable [phone] Allergies Allergen (clinical drug ingredient) Drug/Non Drug Allergy documented on EMR Reaction Allergy Type Onset Date Status gabapentin Gabapentin Unknown Drug Allergy 07/08/2017 Acti ve Levaquin Unknown Drug Allergy 07/08/2017 Active meperidine Meperidine HCl Unknown Drug Allergy 07/08/2017 Active prochlorperazine Prochlorperazine Unknown Drug Allergy 04/2017 Active Adhesive Unknown Allergy 07/08/2017 Active codeine Codeine Unknown Drug Allergy 07/08/2017 Active REASON FOR VISIT yd,f/u,cc, RA, OA, fibro Medications Medication SIG (Take, Route, Frequency, Duration) Notes Start Date End Date Status Copper 3 mg daily - *Pick strength-form from [facility] for eRX* Active Zinc 30 mg daily oral Active Omeprazole 20 MG take 1 capsule (20 mg) by oral route once daily before a meal Oral 1 Active E-Gems - daily oral *Reorder from [facility] for eRx and Interaction Alerts* Active Cymbalta 30 MG take 1 capsule (30 mg) by oral route once daily Oral 1 Active Biotin - daily oral *Pick strength-form from [facility] for eRX* Active Levothyroxine Sodium 88 MCG take 1 capsule (88 mcg) by oral route once daily Oral 1 Active Xanax - - oral *Pick strength-form from [facility] for eRX* Active Prolia Active Vitamin B12 Active MULTIPLE VITAMINS W/IRON take 1 tablet b y oral route once Oral 1 *Reorder from [facility] for eRx and Interaction Alerts* Active Eszopiclone 3 MG take 1 tablet (3 mg) by oral route once daily at bedtime Oral 1 Active Pravastatin Sodium 40 MG take 1 tablet (40 mg) by oral route once daily Oral 1 Active HYDROcodone-Acetaminophen 10-325 MG Oral Active hydroCHLOROthiazide 12.5 MG take 1 tablet (12.5 mg) by oral route once daily Oral 1 Active Potassium Chloride ER 10 MEQ take 1 tablet (10 meq) by oral route once daily with food Oral 1 Active Problems Problem Type SNOMED Code ICD Code Onset Dates Problem Status W/U Status Risk Notes Problem 580463051 Rheumatoid arthritis without rheumatoid factor, multiple sites (M06.09) Active confirmed Problem [id number] Fibromyalgia (M79.7) Active confirmed Vital Signs Temperature 97.3 degrees Fahrenheit 05/29/19 24 Blood pressure systolic 150 mm Hg 05/29/19 24 Blood pressure diastolic 80 mm Hg 024 Heart Rate 79 /min 05/29/2023 Height 64 in 05/29/2023 Weight 193.7 lbs 05/29/2023 BMI 33.24 kg/m2 05/29/2023 Oximetry 99 % 05/29/2023 Encounters Encounter Location Date Provider Diagnosis [facility] [address] [place] [address] 05/29/2023 Mary Saul Rheumatoid arthritis without rheumatoid factor, multiple sites M06.09 ; Generalized osteoarthritis M15.9 ; Fibromyalgia M79.7 ; Rash R21 and Photosensitivity L56.8 Assessments Encounter Date Diagnosis (ICD Code) Assessment Notes Treatment Notes Treatment Clinical Notes Section Notes 05/29/2023 Rheumatoid arthritis without rheumatoid factor, multiple sites (ICD-10 - M06.09) has had some rashes, also has photosensitiv ity, will repeat serologies 05/29/2023 Generalized osteoarthritis (ICD-10 - M15.9) has had some rashes, also has photosensitiv ity, will repeat serologies 05/29/2023 Fibromyalgia (ICD-10 - M79.7) has had some rashes, also has photosensitiv ity, will repeat serologies 05/29/2023 Rash (ICD-10 - R21) has had some rashes, also has photosensitiv ity, will repeat serologies 05/29/2023 Photosensitivity (ICD-10 - L56.8) has had some rashes, also has photosensitiv ity, will repeat serologies Plan Of Treatment Pending Test Test Name Order Date Creatine Kinase,Total,Serum 05/29/2023 Complement C4, Serum 05/29/2023 CBC With Differential/Platelet Sedimentation Rate-Westergren 05/29/2023 Complement C3, Serum 05/29/2023 Rheumatoid Arthritis Factor 05/29/2023 C-Reactive Protein, Quant 05/29/2023 Sjogren's Ab, Anti-SS-A/-SS-B 05/29/2023 CCP IgG Antibodies 05/29/2023 HIMANSHU w/Reflex 05/29/2023 Chem-Comprehensive 05/29/2023 Next Appt Details Provider Name:Mary Saul, 04/02 10:15:00 AM, [address] [facility], [address], [address], Progress Notes * Tiffanie GRESHAM ADOB: (63 yo F)Acc No.[id number]:05/29/2023 Progress Notes Patient:?MP Tiffanie A Provider:?MARY SAUL MD :1960???Age:63 Y???Sex:Female D ate:05/29/2023 Address:[facility] [place] [address] Pcp:Jona Bravo MD Subjective: * Chief Complaints: * ???Yd,f/u,ccRA, OA, fibro * HPI: ???General Follow up:? last seen in 10/2021, has had rashes on the arms, saw derm, was told to see me, +photosensitivity, hx of oral ulcers none recently, +dry eyes, +hair loss, no Raynaud's, hands and feet ache fibromyalgia, on cymbalta, Wellbutrin XL, and tizanidine,?sees pain doctor for neck and back, takes Burgess as needed, had injection stopped Topamax due to impaired memory, did not tolerate gabapentin or lyrica,Effexor stopped working. has MIDDLETON sleep apnea, uses CPAP s/p gastric bypass two sisters have RA. * ROS:?General / Constitutional:?Patient denies?fevers, chills.?Patient complains of?fatigue.?Musculoskeletal:?Patient complains of?see HPI.?Skin:?Patient denies?rash.? * Medical History:? * Surgical History:? * Hospitalization/Major Diagno stic Procedure:? * Social History:?Migrated Social History:?Migrated Social History: Exercise :: Walks , Occupation :: Disabled :: note : - [employer] 10/13/2017 , Substance Use :: Alcohol-Does not give any significant history , Substance Use :: Tobacco :: Never. * Medications:?TakingVitamin B 12 Prolia Xanax - - oral , Notes to Pharmacist: *Pick strength-form from [facility] for eRX*Levothyroxine Sodium 88 MCG Capsule take 1 capsule (88 mcg) by oral route once daily Oral 1 Biotin - daily oral , Notes to Pharmacist: *Pick strength-form from [facility] for eRX*Omeprazole 20 MG Capsule Delayed Release take 1 capsule (20 mg) by oral route once daily before a meal Oral 1 Zinc 30 mg tablet daily oral Copper 3 mg daily - , Notes to Pharmacist: *Pick strength-form from [facility] for eRX*Cymbalta 30 MG Capsule Delayed Release Particles take 1 capsule (30 mg) by oral route once daily Oral 1 E-Gems - daily oral , Notes to Pharmacist: *Reorder from [facility] for eRx and Interaction Alerts*Potassium Chloride ER 10 MEQ Tablet Extended Release take 1 tablet (10 meq) by oral route once daily with food Oral 1 hydroCHLOROthiazide 12.5 MG Tablet take 1 tablet (12.5 mg) by oral route once daily Oral 1 HYDROcodone-Acetaminophen 10-325 MG Tablet Oral Pravastatin Sodium 40 MG Tablet take 1 tablet (40 mg) by oral route once daily Oral 1 Eszopiclone 3 MG Tablet take 1 tablet (3 mg) by oral route once daily at bedtime Oral 1 MULTIPLE VITAMINS W/IRON Tablet take 1 tablet by oral route once Oral 1 , Notes to Pharmacist: *Reorder from [facility] for eRx and Interaction Alerts*Taking Vitamin B12 Taking Prolia Taking Xanax - - oral , Notes to Pharmacist: *Pick strength-form from [facility] for eRX*Taking Levothyroxine Sodium 88 MCG Capsule take 1 capsule (88 mcg) by oral route once daily Oral 1 Taking Biotin - daily oral , Notes to Pharmacist: *Pick strength-form from [facility] for eRX*Taking Omeprazole 20 MG Capsule Delayed Release take 1 capsule (20 mg) by oral route once daily before a meal Oral 1 Taking Zinc 30 mg tablet daily oral Taking Copper 3 mg daily - , Notes to Pharmacist: *Pick strength-form from [facility] for eRX*Taking Cymbalta 30 MG Capsule Delayed Release Particles take 1 capsule (30 mg) by oral route once daily Oral 1 Taking E-Gems - daily oral , Notes to Pharmacist: *Reorder from [facility] for eRx and Interaction Alerts*Taking Potassium Chloride ER 10 MEQ Tablet Extended Release take 1 tablet (10 meq) by oral route once daily with food Oral 1 Taking hydroCHLOROthiazide 12.5 MG Tablet take 1 tablet (12.5 mg) by oral route once daily Oral 1 Taking HYDROcodone-Acetaminophen 10-325 MG Tablet Oral Taking Pravastatin Sodium 40 MG Tablet take 1 tablet (40 mg) by oral route once daily Oral 1 Taking Eszopiclone 3 MG Tablet take 1 tablet (3 mg) by oral route once daily at bedtime Oral 1 Taking MULTIPLE VITAMINS W/IRON Tablet take 1 tablet by oral route once Oral 1 , Notes to Pharmacist: *Reorder from [facility] for eRx and Interaction Alerts*Discontinuedbuspirone - - oral , Notes to Pharmacist: *Reorder from [facility] for eRx and Interaction Alerts*Medication List reviewed and reconciled with the patientDiscontinued buspirone - - oral , Notes to Pharmacist: *Reorder from [facility] for eRx and Interaction Alerts*Medication List reviewed and reconciled with the patient * Allergies:?Gabapentin: Aller gy - Onset Date 07/08/2017Levaquin: Allergy - Onset Date 07/08/2017Meperidine HCl: Allergy - Onset Date 07/08/2017Prochlorperazine: Allergy - Onset Date 07/08/2017Adhesive: Allergy - Onset Date 07/08/2017Codeine: Allergy - Onset Date 07/08/2017no[Allergies Verified] Objective: * Vitals:?BP:150/80mm Hg, HR:7 9/min, Temp:97.3F, Oxygen sat %:99%, Wt:193.7lbs, Ht:64in, BMI:33.24Index. * Examination: ???General Examination: ?General appearance:?alert, well-nourished and in no acute distress.?Head:?normocephalic, atraumatic.?Eyes:?normal.?Skin:?no rash.?Lungs:?respiratory effort normal.?Neurology: ?Speech:?normal.?Psychiatry: ?Affect / mood:?appropriate.?Rheumatology: ???no synovitis. Assessment: * Assessment: 1.?Rheumatoid arthritis with out rheumatoid factor, multiple sites - M06.09 (Primary)?2.?Generalized osteoarthritis - M15.9?3.?Fibromyalgia - M79.7?4.?Rash - R21?5.?Photosensitivity - L56.8? has had some rashes, also black s photosensitivity, will repeat serologies. Plan: * Treatment: * Procedure Codes:? * Billing Information: * Visit Code:? 70321 Office Visit, Est Pt., Level 4. * Procedure Codes:? 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 has [place]DLETON sleep apnea, uses CPAP s/p gastric bypass two sisters have RA. Examination Category Sub-Category Detail Notes Category Not es Rheumatology no synovitis Neurology Speech: normal Psychiatry Affect / mood: appropriate General Examination General appearance: alert, w ell-nourished and in no acute distress Head: normocephalic, atrau matic Eyes: normal Lungs: respiratory effort n ormal Skin: no rash
--- OUTSIDE RECORDS SUMMARY | 2024-02-17 06:16 | XMS_ITS ---
Author Organization [employer] [facility] Address [address] [address] Care Team Providers Care Collar Stitcher Name Role Phone Kathi Zimmerman Primary Care Provider Allergies Allergen (clinical drug ingredient) Drug/Non Drug Allergy documented on EMR Reaction Allergy Type Onset Date Status meperidine Meperidine Unknown Drug Allergy Activ e codeine Codeine Unknown Drug Allergy Active levofloxacin levoFLOXacin Unknown Drug Allergy A ctive gabapentin Gabapentin Unknown Drug Allergy Activ e doxycycline Doxycycline Unknown Drug Allergy Act miguel REASON FOR VISIT mercy Medications Medication SIG (Take, Route, Frequency, Duration) Notes Start Date End Date Status Estradiol 1 MG/1 G (0.1%) 1 EA TRANSDERMALLY ONCE A DAY *Please review and pick correct strength-formula tion from [employer] options. If intended option is not shown, discontinue and re-order from Quick Search* Active amLODIPine Besylate 5 MG 1 tablet Orally Once a day As needed Active Spironolactone 25 MG 1 tablet Orally Active Cyanocobalamin 1000 MCG/ML inject 1000 mcg subcutaneously once weekly for 90 days 06/25/2023 Active HYDROcodone Bitartrate ER 10 MG 1 cap(s) orally every 12 hours 1 TABLET EVERY 6 HOURS FOR PAIN Active Prolia 60 MG/ML as directed subcutaneously every 6 months for 180 days 05/09/2023 Not-Taking Prolia 60 MG/ML as directed subcutaneously every 6 months for 180 days 06/07/2023 Not-Taking GVOKE HYPOPEN TWO PACK 1 MG/0.2 ML DIRECTED SUBCUTANEOUSLY ONCE for 1 DAYS *Please review for potential replacement for e-prescription and drug interaction check* 06/14/2023 Not-Taking Vitamin D3 Active DULoxetine HCl 60 MG 1 capsule Orally Once a day Active Eszopiclone 3 MG 1 tab(s) orally once a day (at bedtime) Not-Taking Aspirin 81 MG 1 tab(s) orally once a day Not-Taking Pravastatin Sodium 80 MG 1 tab(s) orally once a day Active Potassium Citrate ER 10 MEQ (1080 MG) 1 tab(s) orally 3 times a day Not-Taking Magnesium Oxide 500 MG 1 TAB(S) ORALLY ONCE A DAY *Please review and pick correct strength-formula tion from [employer] options. If intended option is not shown, discontinue and re-order from Quick Search* Not-Taking Denosumab 60 MG/ML INJECT 60 MG SUBCUTANEOUSLY EVERY 6 MONTHS for 1 DAYS *Please review and pick correct strength-formula tion from [employer] options. If intended option is not shown, [...] review and pick correct strength-formula tion from [employer] options. If intended option is not shown, discontinue and re-order from Quick Search* 05/18/2023 Not-Taking Prolia 60 MG/ML as directed subcutaneously every 6 months for 12 days 05/25/2023 Not-Taking Prolia 60 MG/ML as directed subcutaneously [...] review and pick correct strength-formula tion from [employer] options. If intended option is not shown, discontinue and re-order from Quick Search* 06/15/2023 Not-Taking buPROPion HCl ER (XL) 300 MG 1 tab(s) orally every 24 hours Active Albuterol Sulfate HFA 108 (90 Base) MCG/ACT 2 puff(s) inhaled every 6 hours Active tiZANidine HCl 4 MG 2 cap(s) orally 3 times a day Active Levothyroxine Sodium 88 MCG 1 tab(s) orally once a day Active GVOKE HYPOPEN ONE PACK 1 MG/0.2 ML DIRECTED SUBCUTANEOUSLY ONCE for 1 DAYS *Please review for potential replacement for e-prescription and drug interaction check* 03/30/2023 Active Problems Problem Type SNOMED Code ICD Code Onset Dates Problem Status W/U Status Risk Notes Problem Obesity (090427375) Obesity, unspecified (E66.9) Active confirmed Vital Signs Blood pressure systolic 138 mm Hg 01/21/20 24 Blood pressure diastolic 78 mm Hg 024 Heart Rate 73 /min 01/21/2024 Height 63 in 01/21/2024 Weight 188.4 lbs 01/21/2024 BMI 33.37 kg/m2 01/21/2024 Encounters Encounter Location Date Provider Diagnosis [facility] - Kathi Zimmerman [address] [place] [address] 01/21/2024 Kathi Zimmerman Type 2 diabetes nori itus without complications E11.9 ; Hypoglycemia, unspecified E16.2 ; Age-related osteoporosis without current pathological fracture M81.0 ; Hyperlipidemia, unspecified E78.5 ; Obesity, unspecified E66.9 and Dietary counseling and surveillance Z71.3 Assessments Encounter Date Diagnosis (ICD Code) Assessment Notes Treatment Notes Treatment Clinical Notes Section Notes 01/21/2024 Type 2 diabetes mellitus without complications (ICD-10 - E11.9) 01/21/2024 Hypoglycemia, unspecified (ICD-10 - E16.2) 01/21/2024 Age-related osteoporosis without current pathological fracture (ICD-10 - M81.0) 01/21/2024 Hyperlipidemia, unspecified (ICD-10 - E78.5) 01/21/2024 Obesity, unspecified (ICD-10 - E66.9) 01/21/2024 Dietary counseling and surveillance (ICD-10 - Z71.3) 01/21/2024 Other Assessment and Plan: 1. Fibromyalgia [...] - Investigate billing and coding issues with [facility] - Obtain updated lab work once billing [...] examination and/or evaluation, counseling and educating the patient/family/medicare sales representative, ordering medications, tests, or procedures, referring and communicating with other health care partner, documenting clinical information in the electronic or other health record, independently interpreting results and communicating results to the patient/family/medicare sales representative and care coordinating patient plan. Patient alert and oriented x 4 and aware of discussion noted above and in agreeance to plan in management of hypoglycemia in setting of well controlled type 2 DM, dyslipidemia, vit D def and hypothyroidism, weight management. Plan Of Treatment Treatment Notes Assessment Notes Other Assessment and Plan: 1. Fibromyalgia flare [...] - Investigate billing and coding issues with [facility] - Obtain updated lab work once [...] examination and/or evaluation, counseling and educating the patient/family/caregiver, ordering medications, tests, or procedures, referring and communicating with other health care partner, documenting clinical information in the electronic or other health record, independently interpreting results and communicating results to the patient/family/caregiver and care coordinating patient plan. Patient alert and oriented x 4 and aware of discussion noted above and in agreeance to plan in management of hypoglycemia in setting of well controlled type 2 DM, dyslipidemia, vit D def and hypothyroidism, weight management. Next Appt Details Follow Up: 4 Months, Reason: eversense placement Progress Notes * Javon GRESHAMOB:[birth year] (63 yo F)Acc No.[id number]:01/21/2024 Progress Notes Patient:?Tiera GRESHAMlotte Provider:?Kathi Zimmerman MD :1960???Age:63 Y???Sex:Female D ate:01/21/2024 Address:[address], [place], [place]-[address] Subjective: * Chief Complaints: * ???1. Hm mercy. * HPI: ???Diabetes:?63 yo female comes in for follow up in management of hypoglycemia secondary to previous hx of type 2 DM and gastric bypass surgery along with osteoporosis.? ?To note she has hypothyroidism and weight management / obesity. She had lap band in 2008 and her neck surgery was 8 years ago. She had significant reflux-ended up getting leroy en y in 2019. ? She had total body weight loss of 150 pounds. Had eversense replacement in November.? Due for labwork. Patient Tiffanie recently underwent surgery for sleep apnea, which triggered a fibromyalgia flare, causing severe unilateral headaches and stabbing ear pains that have since improved. She reports frequent hypoglycemic episodes managed with acarbose and emergency Gvoke shots. Due to billing issues, she has been unable to complete lab work for vitamin D testing since April. Recent weight loss is attributed to decreased appetite post-surgery. Current management includes monitoring fibromyalgia symptoms, continuing acarbose and Gvoke for hypoglycemia, resolving vitamin D testing issues, and ongoing treatment for high cortisol levels, hypothyroidism, and osteoporosis. Follow-up labs and appointments are planned. Patient recently underwent surgery for sleep apnea, which triggered a fibromyalgia flare. She experienced severe unilateral headaches and stabbing ear pains, which were particularly intense on Sunday but have since improved. Patient reports experiencing frequent hypoglycemic episodes. She notes that taking acarbose makes a significant difference in managing these episodes. She has recently ordered Gvoke shots for emergency treatment of low blood sugar and has used a couple in the last 3 months, with good response. Patient has been unable to complete lab work at [facility] since April due to billing issues related to vitamin D testing, which was coded as not medically necessary despite her history of gastric bypass surgery. Patient reports recent weight loss attributed to decreased appetite following her recent surgery due to pain. 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 * ROS:?DERMATOLOGY:?rash?yes.?no?change in color of moles.?no?lumps.?dry or sensitive skin?yes.?no?hives.?no?oily skin.?no?acne.?no?moles-irregular.?no?moles-change/new.?no?boils.?no dandru ff.?n o?excessive body odor.?no?psoriasis.?no?fungal infections.?no?nail problems.?no?redness/inflammation.?no?athlete's foot.?no?skin cancer.?no?eczema.?ENDOCRINOLOGY:?fatigue?yes.?no?excessive sweating.?no?excessive thirst.?no?excessive urination.?no?weight loss.?no?sleep disturbance.?cold intolerance?yes.?heat intolerence?yes.?no?thyroid disease.?increased loss of hair?yes.?no?hx of borderline diabetes.?no?diabetes.?no?abdormal body hair.?no?rheumatism.?no?changes in skin texture.?NEUROLOGY:?headache?yes.?tingling numbness?yes.?no?seizures.?no?insomnia.?memory loss?yes.?dizziness?yes.?no?gait abnormality.?no?change in sensation anywhere on body.?no?localized weakness or numbness.?no?blackouts or near blackouts.?no?migraine.?tremors?yes.?no?fainting spells.?no?head injury.?no?stroke.?OPTHALMOLOGY:?no?diminished vision.?no?eye irritation.?no?drainage from eyes.?no?blurring of vision.?no?seasonal eye sx.?no?dander related eye sx.?no?loss of vision.?no?cataracts.?no?glasses/contacts.?no?glaucoma.?no?detached retina.?no?macular degeneration.?no?eye redness.?RESPIRATORY:?no?shortness of breath.?no?chest pain.?no?wheezing.?no?asthma.?no?breathlessness when lying flat.?no?prolonged cough.?no?frequent infections (bronchitis).?no?emphysema.?no?chest congestion.?sleep apnea?yes.?ALLERGY:?runny nose?yes.?no?scratchy throat.?itchy eyes?yes.?no?ear fullness.?no?sinus congestion.?stuffy nose?yes.?no?watery eyes.?no?seasonal allergies.?no?hay fever.?no?allergy.?no?polyps.?no?sneezing.?HEMATOLOGY/LYMPH:?swollen glands?yes.?no?fatigue.?no?loss of appetite.?easy bruising? yes.?no?easy bleeding.?no?anemia.?UROLOGY:?no?difficulty urinating.?blood in urine?yes.?urinary urgency?yes.?no?frequent urination.?urinary incontinence?yes.?no?voiding dysfunction.?no?vulvodynia.?no?dysparaunia.?no?recurrent UTI.?no?weak flow.?no?dribbling after urination.?no?frequent bladder infections.?no?kidney stone.?no?kidney disease.?no?urine hesitancy.?no?painful urination.?NUTRITION:?greater than body requirmemts?yes.?Less than body requirements?yes.?appropriate / adequate?yes,?yes.?CONSTITUTIONAL:?no?weight gain.?no?loss of appetite.?no?fever.?no?weakness.?no?weight loss.?no?night sweats.?no?nausea.?no?visual changes.?no?change in sleep patterns.?h+p reviewed?yes,?ROS form reviewed with patient see scan for detail.?no?change in activity capacity.?ENT:?no?cold.?no?cough.?no?coughing blood.?no?nose bleed.?hearing loss?yes.?no?change in voice.?no?sore throat.?no?ringing in ears.?no?snoring.?ear pain?yes.?no?runny nose.?no?watery eyes.?no?sinus infection.?no?ear infection.?facial pain?yes,?sinus pain.?no?hoarseness.?no?goiter.?no?gum problems.?no?postnasal drip.?no?frequent nosebleeds.?CARDIOLOGY:?no?chest pain.?no?palpitations.?no?leg swelling.?no?dizziness.?no?shortness of breath.?no?varicose veins.?no?leg cramps.?no?cold hands or feet.?no?high blood pressure.?no ankle swelling.?no?cardiac catheterization.?no?heart attacks.?no?angina.?no?murmurs.?no?low blood pressure.?no?leg pain that resolves w/rest.?no?purple fingers or lips.?no?irregular heart rate.?no?congenital heart defects.?no?dizziness when standing up quickly.?no?awakening at night short of breath.?GASTROENTEROLOGY:?no?nausea.?no?heartburn.?no?stool incontinence.?no?reflux.?no?abdominal pain.?no?indigestion.?no?hemorrhoids.?no?hiatal hernia.?no?ulcers.?no?anal fissures.?no?hepatitis.?no?gallstones.?no?red blood after bowel movements.?no?vomiting.?no?bloating/belching.?difficulty swallowing?yes.?no?diarrhea.?no?constipation.?no?change in bowel habits.?no?blood in stool.?MUSCULOSKELETAL:?joint swelling?yes.?joint pain?yes.?no?leg cramps.?joint stiffness?yes.?no?arthritis.?back pain?yes.?muscle aches?yes.?no?morning stiffness.?no?tendinitis.?neck pain?yes.?no?bursitis.?no?bone marrow biopsy.?no?gout.?activity intolerance?weakness.?no?fracture.?PSYCHOLOGY:?high stress level?yes.?depression?yes.?no?sleep disturbances.?no?resp sx worse with stress.?no?suicidal ideation.?no?eating disorder.?no?mental or physical abuse.?anxiety?yes.?no?headaches.?disease state?yes.?FEMALE REPRODUCTIVE:?no?heavy periods.?no?dysparaunia.?no?sexually active.?no?premenstrual syndrome.?no?dysmenorrhea.?no?infertility.?no?frequent yeast infections.?no?vaginal itching.?no?intermenstrual bleeding.?no?post coital bleeding.?no?postmenopausal bleeding.?no?pelvic pain.?no?menstral cycle.?no?vaginal discharge.?no?vaginal dryness.?no?ovarian cysts.?no?fibroids.?no?discharge from breast.?no abn. bleeding between cycles.?no?postmenopausal symptoms.?no?loss of sexual interest.?no?painful sexual intercourse.?no?endometriosis.?no?vaginal warts.?no?abnormal pap.?no?irregular periods.?no?abnormal vaginal discharge.?no?hot flashes.? * Medical History:?HYPOGLYCEMI A, type 2 DM, Hypothyroidism, Osteoporosis. * Surgical History:?gastric by pass . * Hospitalization/Major Diagno stic Procedure:?Denies Past Hospitalization. * Family History:?Non-Contribu tory.? * Medications:?Taking Vitamin D3 , Taking DULoxetine HCl 60 MG Capsule Delayed Release Particles 1 capsule Orally Once a day , Taking amLODIPine Besylate 5 MG Tablet 1 tablet Orally Once a day As needed, Taking Spironolactone 25 MG Tablet 1 tablet Orally , Taking Cyanocobalamin 1000 MCG/ML Solution inject 1000 mcg subcutaneously once weekly , Taking HYDROcodone Bitartrate ER 10 MG Capsule Extended Release 12 Hour 1 cap(s) orally every 12 hours , Notes to Pharmacist: 1 TABLET EVERY 6 HOURS FOR PAIN, Taking Estradiol 1 MG/1 G (0.1%) GEL 1 EA TRANSDERMALLY ONCE A DAY , Notes to Pharmacist: *Please review and pick correct strength-formulation from [employer] options. If intended option is not shown, discontinue and re-order from Quick Search*, Taking buPROPion HCl ER (XL) 300 MG Tablet Extended Release 24 Hour 1 tab(s) orally every 24 hours , Taking Albuterol Sulfate HFA 108 (90 Base) MCG/ACT Aerosol Solution 2 puff(s) inhaled every 6 hours , Taking tiZANidine HCl 4 MG Tablet 2 cap(s) orally 3 times a day , Taking Levothyroxine Sodium 88 MCG Tablet 1 tab(s) orally once a day , Taking GVOKE HYPOPEN ONE PACK 1 MG/0.2 ML SOLUTION DIRECTED SUBCUTANEOUSLY ONCE , Notes to Pharmacist: *Please review for potential replacement for e-prescription and drug interaction check*, Taking Prolia(Denosumab) 60 MG/ML Solution Prefilled Syringe as directed subcutaneously every 6 months , Taking Pravastatin Sodium 80 MG Tablet 1 tab(s) orally once a day , Not-Taking/PRN Xanax(ALPRAZolam) 0.5 MG Tablet 1 tab(s) orally at bedtime , Not-Taking/PRN GVOKE HYPOPEN TWO PACK 1 MG/0.2 ML SOLUTION DIRECTED SUBCUTANEOUSLY ONCE NEEDED FOR SUGARS UNDER 50 MG/DL , Notes to Pharmacist: *Please review for potential replacement for e-prescription and drug interaction check*, Not-Taking/PRN GVOKE HYPOPEN TWO PACK 1 MG/0.2 ML SOLUTION INJECT 1 MG NEEDED SUBCUTANEOUSLY ONCE , Notes to Pharmacist: *Please review for potential replacement for e-prescription and drug interaction check*, Not-Taking/PRN Ferrous Sulfate 300 MG/5 ML LIQUID 5 ML ORALLY ONCE A DAY , Notes to Pharmacist: *Please review and pick correct strength-formulation from [employer] options. If intended option is not shown, discontinue and re-order from Quick Search*, Not-Taking/PRN Denosumab 60 MG/ML SOLUTION INJECT 60 MG SUBCUTANEOUSLY EVERY 6 MONTHS , Notes to Pharmacist: *Please review and pick correct strength-formulation from [employer] options. If intended option is not shown, discontinue and re-order from Quick Search*, Not-Taking/PRN Pregabalin 75 MG Capsule 1 cap(s) orally 2 times a day , Not-Taking/PRN Pregabalin 100 MG Capsule 1 cap(s) orally 2 times a day , Not-Taking/PRN Iron Up 10 MG/0.3 ML LIQUID 1 ML ORALLY TWICE DAILY WITH MEALS , Notes to Pharmacist: *Please review and pick correct strength-formulation from [employer] options. If intended option is not shown, discontinue and re-order from Quick Search*, Not-Taking/PRN Prolia(Denosumab) 60 MG/ML Solution Prefilled Syringe as directed subcutaneously every 6 months , Not-Taking/PRN Eszopiclone 3 MG Tablet 1 tab(s) orally once a day (at bedtime) , Not-Taking/PRN Aspirin 81 MG Tablet Delayed Release 1 tab(s) orally once a day , Not-Taking/PRN Potassium Citrate ER 10 MEQ (1080 MG) Tablet Extended Release 1 tab(s) orally 3 times a day , Not-Taking/PRN Magnesium Oxide 500 MG TABLET 1 TAB(S) ORALLY ONCE A DAY , Notes to Pharmacist: *Please review and pick correct strength-formulation from [employer] options. If intended option is not shown, discontinue and re-order from Quick Search*, Not-Taking/PRN Prolia(Denosumab) 60 MG/ML Solution Prefilled Syringe as directed subcutaneously every 6 months , Not-Taking/PRN Prolia(Denosumab) 60 MG/ML Solution Prefilled Syringe as directed subcutaneously every 6 months , Not-Taking/PRN GVOKE HYPOPEN TWO PACK 1 MG/0.2 ML SOLUTION DIRECTED SUBCUTANEOUSLY ONCE , Notes to Pharmacist: *Please review for potential replacement for e-prescription and drug interaction check* * Allergies:?Codeine, Meperidi ne, Doxycycline, Gabapentin, levoFLOXacin. Objective: * Vitals:?HR: 73, BP: 138/78, Ht: 63, Wt: 188.4, BMI: 33.37. * Examination: ???General Examination: ?General?normal, NAD, well nourished and hydrated, pleasant.?Neck, thyroid :?supple.?Heart:?BP wnl, RSR, no murmurs.?Lungs:?normal, respirations easy with conversation and ambulation.?Abdomen:?normal, round, non-distended.?Neurologic exam:?unremarkable.?Extremities:?unremarkable.?Peripheral pulses:?normal (2+) bilaterally .?Psych:?orientation to person, place & situation, appropriate judgment noted.? Assessment: * Assessment: 1.?Type 2 diabetes mellitus without complications - E11.9 (Primary)???2.?Hypoglycemia, unspecified - E16.2???3.?Age-related osteoporosis without current pathological fracture - M81.0???4.?Hyperlipidemia, unspecified - E78.5???5.?Obesity, unspecified - E66.9???6.?Dietary counseling and surveillance - Z71.3??? Plan: * Treatment: * Procedures:?Prolia Injection:? Strength given in mmg location given: Right Hip Concentration: 60mg/mL Lot #: [id number] Expiration date: June 04, 2026 given by: Jill Claros. ? * Procedure Codes:?J0897 INJEC TION DENOSUMAB 1 MG, 66056 P/M CENSUS ENUMERATOR, INDIV 15 MIN * Follow Up:?4 Months (Reason: eversense placement) * Billing Information: * Visit Code:? 18793 Office Visit, Est Pt., Level 4. * Procedure Codes:? J0897 INJECTION DENOSUMAB 1 MG. 26813 P/M CENSUS ENUMERATOR, INDIV 15 MIN. * NT SERVICE COORDINATOR Sign off status: Completed true * Provider:?Kathi Zimmerman MD Date:? 4 Generated for aRmila baldwin/Hernando/Chandnismitting on:?02/17/2024 06:15 AM CLIENT SERVICE COORDINATOR History and Physical Notes * HPI (History of Present Illness) Category Sub-Category Detail Notes Category Not es Diabetes 63 yo female comes in for follow up in management of hypoglycemia secondary to previous hx of type 2 DM and gastric bypass surgery along with osteoporosis. To note she has hypothyroidism and weight management / obesity. She had lap band in 2008 and her neck surgery was 8 years ago. She had significant reflux-ended up getting leroy en y in 2018. She had total body weight loss of 150 pounds. Had eversense replacement in November. Due for labwork. Patient Tiffanie recently underwent surgery for sleep apnea, which triggered a fibromyalgia flare, causing severe unilateral headaches and stabbing ear pains that have since improved. She reports frequent hypoglycemic episodes managed with acarbose and emergency Gvoke shots. Due to billing issues, she has been unable to complete lab work for vitamin D testing since April. Recent weight loss is attributed to decreased appetite post-surgery. Current management includes monitoring fibromyalgia symptoms, continuing acarbose and Gvoke for hypoglycemia, resolving vitamin D testing issues, and ongoing treatment for high cortisol levels, hypothyroidism, and osteoporosis. Follow-up labs and appointments are planned. Patient recently underwent surgery for sleep apnea, which triggered a fibromyalgia flare. She experienced severe unilateral headaches and stabbing ear pains, which were particularly intense on Sunday but have since improved. Patient reports experiencing frequent hypoglycemic episodes. She notes that taking acarbose makes a significant difference in managing these episodes. She has recently ordered Gvoke shots for emergency treatment of low blood sugar and has used a couple in the last 3 months, with good response. Patient has been unable to complete lab work at [facility] since April due to billing issues related to vitamin D testing, which was coded as not medically necessary despite her history of gastric bypass surgery. Patient reports recent weight loss attributed to decreased appetite following her recent surgery due to pain. 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) - Hypothyroidism (implied by levothyroxine use) - Osteoporosis (implied by Prolia use) Current and Past Medications and Supplements - Levothyroxine 88mcg - Prolia (no dosage specified) - Gvoke (emergency shots for low blood sugar, as needed) Social History - Diet: High-protein, low-carb, no refined sugars, no processed foods Review of Systems - General: Recent weight loss - Neurological: Horrible headaches on one side, stabbing ear pains - Endocrine: Has been having low blood sugar episodes Examination Category Sub-Category Detail Notes Category Not es General Examination Neck, thyroid : supple Heart: BP wnl, RSR, no murm urs Lungs: normal, respirations easy with conversation and ambulation Abdomen: normal, round, non-d istended Extremities: unremarkable General normal, NAD, well no urished and hydrated, pleasant Neurologic exam: unremarkable Peripheral pulses: normal (2+) bilatera lly Psych: orientation to perso n, place & situation, appropriate judgment noted
--- OUTSIDE RECORDS SUMMARY | 2024-02-17 06:16 | XMS_ITS | Patient Health Record ---
Author Organization [facility] justice Address [address] [place] [address] Care Team Providers Care Card Tape Converter Operator Name Role Phone Shelyl HALE, Jona Primary Care Provider Dave Mary Trent Unavailable [phone] Allergies Allergen (clinical drug ingredient) Drug/Non Drug Allergy documented on EMR Reaction Allergy Type Onset Date Status gabapentin Gabapentin Unknown Drug Allergy 07/08/2017 Acti ve Levaquin Unknown Drug Allergy 07/08/2017 Active meperidine Meperidine HCl Unknown Drug Allergy 07/08/2017 Active prochlorperazine Prochlorperazine Unknown Drug Allergy 04/2017 Active Adhesive Unknown Allergy 07/08/2017 Active codeine Codeine Unknown Drug Allergy 07/08/2017 Active Results Component Value Reference Range Notes SJOGREN'S ANTIBODIES (SS-A,S S-B) (7832) Reviewed date:05/31/2023 01:21:17 PM Interpretation: Performing Lab:[facility] Anushka-[id number] Darleen HerringaKS[address] Law Nathan MD Notes/Report: FASTING: YES FASTING:YES SJOGREN'S ANTIBODY (SS-A) <1.0 NEG <1.0 NEG AI SJOGREN'S ANTIBODY (SS-B) <1.0 NEG <1.0 NEG AI HIMANSHU SCREEN, IFA, W/REFL TITE R AND PATTERN (249) Reviewed date:05/31/2023 01:21:17 PM Interpretation: Performing Lab:[facility]GULOa10101 Anthony Herring[address] Law Nathan MD Notes/Report: FASTING:YES FASTING: YES HIMANSHU SCREEN, IFA NEGATIVE NEGATIVE HIMANSHU IFA is a first line screen for detecting the presence of up to approximately 150 autoantibodies in various autoimmune diseases. A negative HIMANSHU IFA result suggests an HIMANSHU-associated autoimmune disease is not present at this time, but is not definitive. If there is high clinical suspicion for Sjogren's syndrome, testing for anti-SS-A/Ro antibody should be considered. Anti-Radha-1 antibody should be considered for clinically suspected inflammatory myopathies. AC-0: Negative International Consensus on HIMANSHU Patterns (https://doi.org/10.1515/cc kl-9981-4465) For additional information, please refer to http://education.[employer]/faq/CYU159 (This link is being provided for informational/ educational purposes only.) COMPLEMENT COMPONENT C4C (35 3) Reviewed date:05/31/2023 01:21:17 PM Interpretation: Performing Lab:[facility]-Royal Milligan, LhrxydCB[address] Law Nathan MD Notes/Report: FASTING:YES FASTING: YES COMPLEMENT COMPONENT C4C 16 15-57 mg/dL COMPLEMENT COMPONENT C3C (35 1) Reviewed date:05/31/2023 01:21:17 PM Interpretation: Performing Lab:[facility]-Lfrnho78800Tobi Milligan, QsjwmeNP[address] Law Nathan MD Notes/Report: FASTING:YES FASTING: YES COMPLEMENT COMPONENT C3C 125 83-193 mg/dL CYCLIC CITRULLINATED PEPTIDE (CCP) AB (IGG) (66361) Reviewed date:05/31/2023 01:21:17 PM Interpretation: Performing Lab:[facility]-Nlpble19386 Chris Milligan, IvzfmrRV[address] Law Nathan MD Notes/Report: FASTING:YES FASTING: YES CYCLIC CITRULLINATED PEPTIDE (CCP) AB (IGG) <16 Reference Range Negative: <20 Weak Positive: 20-39 Moderate Positive: 40-59 Strong Positive: >59 RHEUMATOID FACTOR (4418) Reviewed date:05/31/2023 01:21:17 PM Interpretation: Performing Lab:[facility]-Royal Milligan, FcvmlhZJ[address] Law Nathan MD Notes/Report: FASTING:YES FASTING: YES RHEUMATOID FACTOR <10 <14 IU/mL C-REACTIVE PROTEIN (4420) Reviewed date:05/31/2023 01:21:17 PM Interpretation: Performing Lab:[facility] LenexaKS[address] Law Nathan MD Notes/Report: FASTING:YES FASTING: YES C-REACTIVE PROTEIN <3.0 <8.0 mg/L SED RATE BY MODIFIED WESTERG CURLY (809) Reviewed date:05/31/2023 01:21:17 PM Interpretation: Performing Lab:[facility] [place]exaKS[address] Law Nathan MD Notes/Report: FASTING:YES FASTING: YES SED RATE BY MODIFIED WESTERGREN 6 < OR = 30 mm/h COMPREHENSIVE METABOLIC PANE L (23857) Reviewed date:05/31/2023 01:21:17 PM Interpretation: Performing Lab:[facility] LenexaKS[address] Law Nathan MD Notes/Report: FASTING:YES FASTING: YES GLUCOSE 112 65-99 mg/dL Fasting reference interval For someone without known diabetes, a glucose value between 100 and 125 mg/dL is consistent with prediabetes and should be confirmed with a follow-up test. UREA NITROGEN (BUN) 22 7-25 mg/dL CREATININE 0.72 0.50-1.05 mg/dL EGFR 93 > OR = 60 mL/min/1.73m2 BUN/CREATININE RATIO SEE NOTE: 6-22 (calc) Not Reported: BUN and Creatinine are within reference range. SODIUM 142 135-146 mmol/L POTASSIUM 4.0 3.5-5.3 mmol/L CHLORIDE 106 98-110 mmol/L CARBON DIOXIDE 28 20-32 mmol/L CALCIUM 9.4 8.6-10.4 mg/dL PROTEIN, TOTAL 6.4 6.1-8.1 g/dL ALBUMIN 4.3 3.6-5.1 g/dL GLOBULIN 2.1 1.9-3.7 g/dL (calc) ALBUMIN/GLOBULIN RATIO 2.0 1.0-2.5 (calc) BILIRUBIN, TOTAL 0.5 0.2-1.2 mg/dL ALKALINE PHOSPHATASE 106 37-153 U/L AST 38 10-35 U/L ALT 42 6-29 U/L CBC (INCLUDES DIFF/PLT) (639 9) Reviewed date:05/31/2023 01:21:17 PM Interpretation: Performing Lab:[facility] Anushka-[id number] Darleen HerringaKS[address] Law Nathan MD Notes/Report: FASTING:YES FASTING: YES WHITE BLOOD CELL COUNT 5.3 3.8-10.8 Thousand/ uL RED BLOOD CELL COUNT 3.80 3.80-5.10 Million/uL HEMOGLOBIN 12.1 11.7-15.5 g/dL HEMATOCRIT 36.5 35.0-45.0 % MCV 96.1 80.0-100.0 fL MCH 31.8 27.0-33.0 pg MCHC 33.2 32.0-36.0 g/dL RDW 11.9 11.0-15.0 % PLATELET COUNT 166 140-400 Thousand/uL MPV 10.5 7.5-12.5 fL ABSOLUTE NEUTROPHILS 3291 3267-1372 cells/uL ABSOLUTE LYMPHOCYTES 1610 961-2996 cells/uL ABSOLUTE MONOCYTES 647 200-950 cells/uL ABSOLUTE EOSINOPHILS 80 15-500 cells/uL ABSOLUTE BASOPHILS 32 0-200 cells/uL NEUTROPHILS 62.1 LYMPHOCYTES 23.6 MONOCYTES 12.2 EOSINOPHILS 1.5 BASOPHILS 0.6 CREATINE KINASE, TOTAL (374) Reviewed date:05/31/2023 01:21:17 PM Interpretation: Performing Lab:[facility] EstuardoQymfth46441 Jacky HerringXegbgpLR[address] Law Nathan MD Notes/Report: FASTING:YES FASTING: YES CREATINE KINASE, TOTAL 190 29-143 U/L Reason For Referral No Information Medications Medication SIG (Take, Route, Frequency, Duration) Notes Start Date End Date Status Copper 3 mg daily - *Pick strength-form from [employer] for eRX* Active Zinc 30 mg daily oral Active Omeprazole 20 MG take 1 capsule (20 mg) by oral route once daily before a meal Oral 1 Active Biotin - daily oral *Pick strength-form from [employer] for eRX* Active MULTIPLE VITAMINS W/IRON take 1 tablet b y oral route once Oral 1 *Reorder from [employer] for eRx and Interaction Alerts* Active Levothyroxine Sodium 88 MCG take 1 capsule (88 mcg) by oral route once daily Oral 1 Active Eszopiclone 3 MG take 1 tablet (3 mg) by oral route once daily at bedtime Oral 1 Active Xanax - - oral *Pick strength-form from [employer] for eRX* Active Pravastatin Sodium 40 MG take 1 tablet (40 mg) by oral route once daily Oral 1 Active HYDROcodone-Acetaminophen 10-325 MG Oral Active Prolia Active Vitamin B12 Active hydroCHLOROthiazide 12.5 MG take 1 tablet (12.5 mg) by oral route once daily Oral 1 Active Potassium Chloride ER 10 MEQ take 1 tablet (10 meq) by oral route once daily with food Oral 1 Active E-Gems - daily oral *Reorder from [employer] for eRx and Interaction Alerts* Active Cymbalta 30 MG take 1 capsule (30 mg) by oral route once daily Oral 1 Active Problems Problem Type SNOMED Code ICD Code Onset Dates Problem Status W/U Status Risk Notes Problem 118676805 Rheumatoid arthritis without rheumatoid factor, multiple sites (M06.09) Active confirmed Problem 982894265 Fibromyalgia (M79.7) Active confirmed Vital Signs Heart Rate 79 /min 05/29/2023 Temperature 97.3 degrees Fahrenheit 05/29/2023 Blood pressure diastolic 80 mm Hg 05/29/2023 Oximetry 99 % 05/29/2023 Height 64 in 05/29/2023 Blood pressure systolic 150 mm Hg 05/29/2023 Weight 193.7 lbs 05/29/2023 BMI 33.24 kg/m2 05/29/2023 Encounters Encounter Location Date Provider Diagnosis [facility] [address] [place] [address] 05/29/2023 Mary Hewitt Rheumatoid arthritis without rheumatoid factor, multiple sites [...] Chem-Comprehensive 05/29/2023 Next Appt Details Provider Name:Mary Hewitt, 04/02 10:15:00 AM, [address], [facility] [address], [place], [address], Insurance Providers Payer Name Payer Address Payer Phone Subscriber Number Group Number Insured Name Patient Relationship to Insured Coverage Start Date Coverage End Date Medicare [address] [address] [place] [address] [id number] Joseph Tiffanie Self - patient is the insured 8 [place] [address] [place] [address] [id number] Tiffanie Ruiz Self - patient is the insured [employer] [address] [place] [address] [id number] Tirea Ruizlotte Self - patient is the insured Medical (General) History Medical History History ICD Code Depression; Fibromyalgia; Hyperlipidemia; Hypertension; Hypothyroidism; Low Back Pain; Sleep apnea;
--- OUTSIDE RECORDS SUMMARY | 2024-02-17 06:16 | XMS_ITS ---
Author Organization [facility] justice Address [address] [place] [address] Care Team Providers Care Wood Heel Attacher Name Role Phone Shelly HALE, Jona Primary Care Provider Unavaila Mary Trent [phone] REASON FOR VISIT yd,f/u,cc Encounters Encounter Location Date Provider Diagnosis [facility] [address] [place] [address] 02/14/2023 Mary Saul Plan Of Treatment Next Appt Details Provider Name:Mary Saul, 04/02 10:15:00 AM, [address], [address], [place], [address], Progress Notes * JOSEPHTiffanie ADOB: (64 yo F)Acc No.[id number]:02/14/2023 Progress Notes Patient:?Tiffanie GRESHAM Provider:?MARY SAUL MD :1960???Age:63 Y???Sex:Female D ate:02/14/2023 Address:[address] [facility] Pcp:Jona Bravo MD Subjective: * Chief Complaints: * ???1. Yd,f/u,cc. * Medical History:? Objective: * Vitals:? Assessment: Plan: * Treatment: * Billing Information: * Visit Code:? * Procedure Codes:? * Electronic signature of Mary Saul MD on 02/17/2024 at 06:16 AM MEDICAL EQUIPMENT REPAIRER Sign off status: Pending * Provider:?MARY SAUL MD Date:?02/14/2023 Generated for Ramila baldwin/Hernando/Ferny on:?02/17/2024 06:16 AM MEDICAL EQUIPMENT REPAIRER
--- OUTSIDE RECORDS SUMMARY | 2024-02-17 06:16 | XMS_ITS ---
Author Organization [facility] justice Address [address] [place] [address] Care Team Providers Care Office Mail Clerk Name Role Phone Shelly HALE, Jona Primary Care Provider Unavaila ble KashJahairag Unavailable [phone] zzzzMigration, zzzzProvider Unavailable Unav ailable Allergies Allergen (clinical drug ingredient) Drug/Non Drug Allergy documented on EMR Reaction Allergy Type Onset Date Status gabapentin Gabapentin Unknown Drug Allergy 07/08/2017 Acti ve Levaquin Unknown Drug Allergy 07/08/2017 Active meperidine Meperidine HCl Unknown Drug Allergy 07/08/2017 Active prochlorperazine Prochlorperazine Unknown Drug Allergy 04/2017 Active Adhesive Unknown Allergy 07/08/2017 Active codeine Codeine Unknown Drug Allergy 07/08/2017 Active REASON FOR VISIT EMR-Dustin Medications Medication SIG (Take, Route, Frequency, Duration) Notes Start Date End Date Status hydroCHLOROthiazide 12.5 MG take 1 tablet (12.5 mg) by oral route once daily Oral 1 Active Eszopiclone 3 MG take 1 tablet (3 mg) by oral route once daily at bedtime Oral 1 Active buspirone - - oral *Reorder from [employer] for eRx and Interaction Alerts* Active Levothyroxine Sodium 88 MCG take 1 capsule (88 mcg) by oral route once daily Oral 1 Active Pravastatin Sodium 40 MG take 1 tablet (40 mg) by oral route once daily Oral 1 Active Zinc 30 mg daily oral Active E-Gems - daily oral *Reorder from [employer] for eRx and Interaction Alerts* Active Biotin - daily oral *Pick strength-form from [employer] for eRX* Active HYDROcodone-Acetaminophen 10-325 MG Oral Active Omeprazole 20 MG take 1 capsule (20 mg) by oral route once daily before a meal Oral 1 Active Copper 3 mg daily - *[facility]* Active MULTIPLE VITAMINS W/IRON take 1 tablet b y oral route once Oral 1 *[facility] and Interaction Alerts* Active Xanax - - oral *[facility]* Active Potassium Chloride ER 10 MEQ take 1 tablet (10 meq) by oral route once daily with food Oral 1 Active Cymbalta 30 MG take 1 capsule (30 mg) by oral route once daily Oral 1 Active Encounters Encounter Location Date Provider Diagnosis [facility] [address] [facility] [address] [place] [address] 11/26/2022 zzzzProvider zzzzMigration Plan Of Treatment Next Appt Details Provider Name:Mary Kash, 04/02 10:15:00 AM, [address] [facility] [address], [place], [address], Progress Notes * Tiffanie GRESHAM ADOB: (64 yo F)Acc No.[id number]:11/26/2022 Patient:?Tiffanie GRESHAM :1960???Age:62 Y???Sex:Female [address] [place] [address] Subjective: * Chief Complaints: * ???[facility] * Medical History:? * Surgical History:? * Hospitalization/Major Diagno stic Procedure:? * Social History:?Migrated Social History:?Migrated Social History: Exercise :: Walks , Occupation :: Disabled :: note : - [employer] 10/13/2017 , Substance Use :: Alcohol-Does not give any significant history , Substance Use :: Tobacco :: Never. * Medications:?TakingXanax - - oral , Notes to Pharmacist: *Pick [facility]-form [facility]*Levothyroxine Sodium 88 MCG Capsule take 1 capsule (88 mcg) by oral route once daily Oral 1 Biotin - daily oral , Notes to Pharmacist: *Pick strength-form from [facility] for eRX*Omeprazole 20 MG Capsule Delayed Release take 1 capsule (20 mg) by oral route once daily before a meal Oral 1 Zinc 30 mg tablet daily oral Copper 3 mg daily - , Notes to Pharmacist: *Pick strength-form from [facility] for eRX*Cymbalta 30 MG Capsule Delayed Release Particles take 1 capsule (30 mg) by oral route once daily Oral 1 E-Gems - daily oral , Notes to Pharmacist: *Reorder from [facility] for eRx and Interaction Alerts*Potassium Chloride ER [...] by oral route once daily Oral 1 buspirone - - oral , Notes to Pharmacist: *Reorder from [facility] for eRx and Interaction Alerts*Eszopiclone 3 MG Tablet take 1 tablet (3 mg) by oral route once daily at bedtime Oral 1 MULTIPLE VITAMINS W/IRON Tablet take 1 tablet by oral route once Oral 1 , Notes to Pharmacist: *Reorder from [facility] for eRx and Interaction Alerts*Taking Xanax - - oral , Notes to Pharmacist: *Pick strength-form from [facility] for eRX*Taking Levothyroxine Sodium 88 MCG Capsule take 1 capsule (88 mcg) by oral route once daily Oral 1 Taking Biotin - daily oral , Notes to Pharmacist: *Pick strength-form from [facility] for eRX*Taking Omeprazole 20 MG Capsule Delayed Release take 1 capsule (20 mg) by oral route once daily before a meal Oral 1 Taking Zinc 30 mg tablet daily oral Taking Copper 3 mg daily - , Notes to Pharmacist: *Pick strength-form from [facility] for eRX*Taking Cymbalta 30 MG Capsule Delayed Release Particles take 1 capsule (30 mg) by oral route once daily Oral 1 Taking E-Gems - daily oral , Notes to Pharmacist: *Reorder from [facility] for eRx and Interaction Alerts*Taking Potassium Chloride [...] oral route once daily Oral 1 Taking buspirone - - oral , Notes to Pharmacist: *Reorder from [employer] for eRx and Interaction Alerts*Taking Eszopiclone 3 MG Tablet take 1 tablet (3 mg) by oral route once daily at bedtime Oral 1 Taking MULTIPLE VITAMINS W/IRON Tablet take 1 tablet by oral route once Oral 1 , Notes to Pharmacist: *Reorder from [employer] for eRx and Interaction Alerts* * Allergies:?Gabapentin: Aller gy - Onset Date 07/08/2017Levaquin: Allergy - Onset Date 07/08/2017Meperidine HCl: Allergy - Onset Date 07/08/2017Prochlorperazine: Allergy - Onset Date 07/08/2017Adhesive: Allergy - Onset Date 07/08/2017Codeine: Allergy - Onset Date 07/08/2017 Objective: * Vitals:? * Physical Examination:? Assessment: Plan: * Treatment: * Procedure Codes:? * * Date:?
--- OUTSIDE RECORDS SUMMARY | 2024-02-17 06:16 | XMS_ITS | Continuity of Care Document ---
Author Organization [facility] Address [address], [place] [id number] Care Team Providers Care Balloon Dipper Name Role Phone Jona Bravo Primary Care Physician Encounter [facility] Financial Number [id number] Date(s): 05/31/23 - 05/31/[address] [id number] Discharge Disposition: Home with Physician Follow-up Attending Physician: Roscoe Coelho MD Admitting Physician: Roscoe Coelho MD Allergies, Adverse Reactions, Alerts Substance Criticality Severity Reaction Reaction Severity Status DULoxetine Depression, NOS Act miguel codeine Unable to assess criticality Severe Hives Active doxycycline Stomach upset Acti ve prochlorperazine Unknown Act miguel gabapentin swelling Active levofloxacin Joint pain Active Demerol HCl Hives Active pregabalin swelling Active Adhesive Tape Blistered skin.. Active Functional Status 05/31/23 Activity Assistance Independent 05/30/23 Living Situation Home independently Current Home Treatments Blood glucose mo nitoring, CPAP Exercise, Functional Regular Mobility Assistance Prior to Admission I ndependent Medications acetaminophen-oxyCODONE 325 mg-10 mg oral tablet 1 tablet(s), Oral, [id number], PRN, 18 tablet(s), Tablet(s), 0, 0, pain Start Date: 05/30/23 Stop Date: 06/02/23 Status: Ordered albuterol 90 mcg/inh inhaler 2 puff(s), Inhalation, [id number], PRN, 1 inhaler, Inhaler, 0, shortness of breath Start Date: 09/20/15 Status: Ordered aspirin 81 mg oral enteric coated tablet 81 mg, 1 tablet(s), Oral, Torrez, Tab EC, 0 Start Date: 03/05/19 Status: Ordered Bariatric Multivitamins with 45 mg Iron 1 capsule(s), Oral, daily, 0 Start Date: 03/05/19 Status: Ordered biotin 5000 mcg oral capsule 5,000 mcg, 1 capsule(s), Oral, daily, 0 Start Date: 08/08/19 Status: Ordered buPROPion 300 mg/24 hours (XL) oral tablet, extended release 300 mg, 1 tablet(s), Oral, daily, 30 tablet(s), Tab SR 24 HR, 0 Start Date: 05/30/23 Status: Ordered Cymbalta 60 mg oral delayed release capsule 60 mg, 1 capsule(s), Oral, daily, 30 capsule(s), Capsule(s), 0 Start Date: 05/30/23 Status: Ordered folic acid 0.4 mg oral tablet 0.4 mg, 1 tablet(s), Oral, daily, Tablet(s), 0 Start Date: 03/05/19 Status: Ordered levothyroxine 88 mcg (0.088 mg) oral tablet 88 mcg, 1 tablet(s), Oral, daily before breakfast, 30 tablet(s), Tablet(s), 0 Start Date: 08/30/15 Status: Ordered Lunesta 3 mg oral tablet 3 mg, 1 tablet(s), Oral, qhs, PRN, 30 tablet(s), Tablet(s), 0, sleep Start Date: 05/30/23 Status: Ordered Motrin 400 mg, 1 tablet(s), Oral, [id number], PRN, Tablet(s), 0, pain, mild Start Date: 05/31/23 Status: Ordered pravastatin 40 mg oral tablet 80 mg, 2 tablet(s), Oral, daily, 90 tablet(s), Tablet(s), 0 Start Date: 09/20/15 Status: Ordered Tylenol 325 mg oral tablet 650 mg, 2 tablet(s), Oral, [id number], PRN, Tablet(s), 0, pain, mild Start Date: 05/31/23 Status: Ordered Vitamin B12 1000 mcg oral tablet 1,000 mcg, 1 tablet(s), Oral, daily, 30 tablet(s), Tablet(s), 0 Start Date: 05/30/23 Status: Ordered Zanaflex 4 mg oral tablet 4 mg, 1 tablet(s), Oral, qhs, PRN, 90 tablet(s), Tablet(s), 0, muscle spasm Start Date: 05/30/23 Status: Ordered Mental Status 05/31/23 Orientation Oriented x 4 Problem List Condition Confirmation Course Effective Dates Status H ealth Status Informant Asthma Confirmed Active Bleeding tendency Confirmed Active Hematuria Confirmed Active Connective tissue disease Confirmed Active Depression Confirmed Active Fibromyalgia Confirmed Active H/O: osteoarthritis Confirmed Active H/O hyperlipidemia Confirmed Active H/O: stroke Confirmed Active Hx of thyroid disease Confirmed Active Hx of fusion of cervical spine Confirmed Active HTN (hypertension) Confirmed Active Kidney stones Confirmed Active Lower back pain Confirmed Active Melanoma 1 Confirmed Active Migraines Confirmed Active Neck pain Confirmed Active MIDDLETON (nonalcoholic steatohepatitis) Confirmed Active Arm numbness 2 Confirmed Active Pain in right shoulder Confirmed Active Apnea, sleep Confirmed Active Sleep apnea Confirmed Active 1right forearm 2right arm, hand Procedures Procedure Date Related Diagnosis Body Site Status LAP GASTRIC BYPASS/JASON-EN-Y 06/2018 Completed C4-7 ACDF (Dr Esparza) 10/12/15 C ompleted APPENDECTOMY Completed Biopsy of muscle 1 Comple lamont D&C - Dilatation and curettage 2 Completed Excision of mass from thigh 3 Completed Laparoscopic adjustable gastric banding Completed LEEP Completed Repair of inguinal hernia 4 Completed Rotator cuff repair 5 Com pleted Suspension of bladder Com pleted Total hysterectomy Comple lamont 1left calf 2x 8 3left 4right 5right Vital Signs Most recent to oldest [Reference Range]: 1 2 3 4 Temperature Temporal Artery [35.8-38 DegC] 36.3 DegC (05/31/23 9:06 AM) 36.5 DegC (05/31/23 7:56 AM) Peripheral Pulse Rate [60-100 bpm] 58 bpm *L* (05/31/23 9:06 AM) 61 bpm (05/31/23 8:57 AM) 62 bpm (05/31/23 8:51 AM) Respiratory Rate [14-22 br/min] 16 br/min (05/31/23 9:06 AM) 18 br/min (05/31/23 8:57 AM) 16 br/min (05/31/23 8:51 AM) Blood Pressure [89-139/60-90 mm Hg] 162/78mm Hg *H* (05/31/23 9:06 AM) 180/82mm Hg *H* (05/31/23 8:57 AM) 181/83mm Hg *H (05/31/23 8:51 AM) Oxygen Therapy Room air (05/31/23 9:06 AM) Room air (05/31/23 8:36 AM) Room air (05/31/23 7:56 AM) SpO2 100 % (05/31/23 8:57 AM) 100 % (05/31/23 8:57 AM) 99 % (05/31/23 8:51 AM) 99 % (05/31/23 8:51 AM) Height 160 cm (05/31/23 7:56 AM) Weight 86.7 kg (05/31/23 7:56 AM) Social History Social History Type Response Alcohol Never alcohol user Substance Abuse Never drug user Smoking Status Never smoker;Never; Tobacco Cessation Counseling Requested N/A entered on: 05/30/23 Sex Implantable Device List Procedure Provider Procedure Date Device Type Site Cataract Extraction by Phacoemulsificati Unknown 10/08/19 Unknown Unknown Device Identifier Serial Number Lot or Batch Number Manufacturing Date Expiration Date Distinct Identification Code MRI Safety Implantable Status Assigning Authority [id number] Unknown Unknown 10/06/23 Unknown Unknown Active GS1 Procedure Provider Procedure Date Device Type Site Cataract Extraction by Phacoemulsificati Unknown 08/11/19 Unknown Unknown Device Identifier Serial Number Lot or Batch Number Manufacturing Date Expiration Date Distinct Identification Code MRI Safety Implantable Status Assigning Authority [id number] Unknown Unknown 07/06/23 Unknown Unknown Active GS1 Hospital Discharge Instructions Patient Education 05/31/2023 09:14:44 Handwashing: Tips for Patients, Family, and Friends Handwashing: Tips for Patients, Family, and Friends Germs are everywhere around us. Normally, we live with germs without getting sick. In certain cases, harmful germs cause us to get sick with an infection. Or we can spread harmful germs to others andcause them to get sick. Keeping your hands clean is the best way to prevent getting or spreading germs that cause infection. Wash your hands with soap and water or use an alcohol-based hand fish cleaner. When to clean your hands: For patients In the hospital or in your home, you can come in contact with many harmful germs. To help prevent infection, wash your hands often, especially: ???After using the bathroom ???Before and after eating ???After coughing or sneezing ???After using a tissue ???After touching or changing a dressing or bandage ???After touching any object or surface that may be contaminated ???After touching an animal during a pet therapy session (hospital) ???After touching an animal, cleaning up after a pet, or??preparing food for pets (home) If you don???t have access to soap and water, use an alcohol-based hand gel containing at least 60%alcohol. These products kill most germs and are easy to use. But if your hands are visibly dirty, use soap and water (not alcohol-based hand gel). When to clean your hands: For family and friends When visiting or caring for a loved one, washing your hands or using an alcohol- based hand fish cleaner can help stop germs from spreading. Wash your hands: ???Before entering and after leaving the patient???s room ???As soon as you remove gloves or other protective clothing ???After changing a dressing or bandage ???After any contact with blood or other body fluids ???After touching or changing the patient???s bed linen or towels ???After touching an animal during a pet therapy session (hospital) ???After touching an animal, cleaning up after a pet, or??preparing food for pets (home) Many hospitals have sinks or gel dispensers right outside patient rooms. If not, carry a bottle of alcohol-based hand gel with you. Use it every time you visit. If your hands are visibly dirty, use soap and water (not alcohol-based hand gel). Tips for good handwashing Here are some suggestions to follow: ???Use either cold or warm water and plenty of soap. Work up a good lather. ???Clean the whole hand, including under your nails, between your fingers, and up the wrists. ???Wash for at least 15 to 30 seconds. Don???t just wipe. Scrub well. Sing the Happy Birthday song to reach the 30- second goal ???Rinse. Let the water run down your fingers, not up your wrists. ???Dry your hands well. Use a paper towel to turn off the faucet and open the door. Time matters The longer you wash your hands, the more germs you???ll remove. Most people wash their hands for 6 to 7 seconds. But at least??15 seconds??are needed to remove germs. Singing Happy Birthday or the ABC Song are examples of??how long??15 seconds would be.??To protect yourself and others from infection, washing for 30 seconds is best. How to use an alcohol-based hand fish cleaner Alcohol-based hand stopper setter may kill more germs than soap and water. Use them when your hands aren???t visibly dirty. For best results, follow these steps: ???Choose a gel or spray that contains at least 60% alcohol. Products with less alcohol may not kill germs. ???Spread about a tablespoon of fish cleaner in the palm of one hand. ???Rub your hands together briskly, cleaning the backs of your hands, the palms, between your fingers, and up the wrists. ???Rub until the fish cleaner is gone, and your hands are completely dry. Antibacterial soaps: ???Come in liquid or bar form and are used with water ???Are no better at removing germs than plain soap Alcohol-based hand stopper setter: ???Come in gels or sprays that don???t need water ???Work as well or better than washing with soap and water ?? 3023-9330 [employer]. All rights reserved. This information is not intended as a substitute for professional medical care. Always follow your healthcare professional's instructions. Discharge summary * Cheri Nova RN: PERFORM, SIGN, VERIFY Event Display: Inpatient Clinical Summary Authored Date: [id number] [facility] [address] [address] [email or web address] CLINICAL SUMMARY Patient Information: Name: OMAR GRESHAM Age: 63 Years Date of : 1960 Provider Information: Admitting Physician: Roscoe Coelho MD Attending Physician: Roscoe Coelho MD Consulting Physician: Medical Information: Allergies: DULoxetine; Adhesive Tape; pregabalin; Demerol HCl; levofloxacin; gabapentin; prochlorperazine; doxycycline; codeine Home Medications: Other Medications acetaminophen (Tylenol 325 mg oral tablet) 2 tablet(s) By mouth every 4 hours as needed pain, mild. acetaminophen-oxyCODONE (acetaminophen-oxyCODONE 325 mg-10 mg oral tablet) 1 tablet(s) By mouth every 4 hours as needed pain for 3 day(s). albuterol (albuterol 90 mcg/inh inhaler) 2 puff(s) Inhalation every 4 hours as needed shortness of breath. aspirin (aspirin 81 mg oral enteric coated tablet) 1 tablet(s) By mouth Sunday. biotin (biotin 5000 mcg oral capsule) 1 capsule(s) By mouth daily. buPROPion (buPROPion 300 mg/24 hours (XL) oral tablet, extended release) 1 tablet(s) By mouth daily. cyanocobalamin (Vitamin B12 1000 mcg oral tablet) 1 tablet(s) By mouth daily. DULoxetine (Cymbalta 60 mg oral delayed release capsule) 1 capsule(s) By mouth daily. eszopiclone (Lunesta 3 mg oral tablet) 1 tablet(s) By mouth every evening at bedtime as needed sleep. folic acid (folic acid 0.4 mg oral tablet) 1 tablet(s) By mouth daily. ibuprofen (Motrin) 400 Milligram By mouth every 6 hours as needed pain, mild. levothyroxine (levothyroxine 88 mcg (0.088 mg) oral tablet) 1 tablet(s) By mouth daily before breakfast. multivitamin with minerals (Bariatric Multivitamins with 45 mg Iron) 1 capsule(s) By mouth daily. pravastatin (pravastatin 40 mg oral tablet) 2 tablet(s) By mouth daily. tiZANidine (Zanaflex 4 mg oral tablet) 1 tablet(s) By mouth every evening at bedtime as needed muscle spasm. Discharge orders: Order Name Order Details Contact your Surgeon Contact your surgeon for pain or other questions/concerns. Discharge Activity Restrictions No Strenuous Activity x 48 hours Follow-up instructions post Discharge Follow up with Dr. Coelho as needed Special Discharge Instructions 05/31/23 9:07:00 CDT, May Remove Dressing in 2 days; may remove steri strips in 14 days, 05/31/23 9:07:00 CDT Special Discharge Instructions 05/31/23 9:07:00 CDT, May Shower in 2 days, 05/31/23 9:07:00 CDT X X Substitutions Permitted Date/Time Dispense as Written Date/Time PENELOPE# Physician signature required if patient transferring/discharged to another facility. Patient Education Information: Instructions: Handwashing: Tips for Patients, Family, and Friends Follow-up Instructions: With: Address: When: Roscoe Coelho [address] [place] [address], [address] [place], [place] [id number] Business (1) Exchange (1) DISCHARGE INSTRUCTIONS_OPR Outpatient Surgery Instructions: If you have any problems regarding your procedure after discharge, please contact your surgeon or if after normal business hours, call the exchange. In the event of an emergency, please call 911 or go to your nearest Emergency Department. Patient Home Medications Returned: No home medications Activity After Discharge: No strenuous activity No Driving For: 24 Hours Diet After Discharge: Resume normal diet as tolerated Incision/Wound Care After Discharge: Call if temperature is above 101 degrees F or if change in wound/incision/drainage is noted Discharge Medication Planning: Discharge Medication Information provided, Medication Side Effects Information explained and provided, Ability to obtain prescribed medication confirmed, Due to medications you have received, you should not drive a vehicle or operate machinery for 24 hours Diagnosis: Note * Cheri Nova RN: PERFORM Event Display: Home Discharge Instructions_OPR - Text Authored Date: [id number] Home Discharge Instructions_OPR Entered On: 05/31/2023 09:14 CDT Performed On: 05/31/2023 09:14 CDT by Cheri Nova RN DISCHARGE INSTRUCTIONS_OPR Outpatient Surgery Instructions : If you have any problems regarding your procedure after discharge, please contact your surgeon or if after normal business hours, call the exchange. In the event of an emergency, please call 911 or go to your nearest Emergency Department. Patient Home Medications Returned : No home medications Activity After Discharge : No strenuous activity No Driving For : 24 Hours Diet After Discharge : Resume normal diet as tolerated Incision/Wound Care After Discharge : Call if temperature is above 101 degrees F or if change in wound/incision/drainage is noted Discharge Medication Planning : Discharge Medication Information provided, Medication Side Effects Information explained and provided, Ability to obtain prescribed medication confirmed, Due to medications you have received, you should not drive a vehicle or operate machinery for 24 hours Cheri Nova RN - 05/31/2023 09:14 CDT * Sujatha Pineda RN: PERFORM Event Display: Preop Admission Assessment - Text Authored Date: [id number] Preop Admission Assessment Entered On: 05/31/2023 07:56 CDT Performed On: 05/31/2023 07:56 CDT by Sujatha Pineda critical power install technician of Systems Cardiovascular Within Defined Limits : Rhythm reg.Nail beds pink.No edema.DP&radial pulses 2+ Jak. Respiratory Within Defined Limits : Resp. unlabored & reg., all Breath sounds clear, no cough. Gastrointestinal Within Defined Limits : Abd soft & nondistended,+BS all quads,+flatus,soft stool Genitourinary Within Defined Limits : Bladder nondistended,no dysuria,voiding clear,yellow urine Musculoskeletal Within Defined Limits : No special device,no musculoskeletal abnomalities.Full ROM. Integumentary Within Defined Limits : Document assessment EENT Within Defined Limits : No ENT issues; or aids in place&working/Nose&pharynx open Sujatha Pineda RN - 05/31/2023 08:04 CDT Neurological Within Defined Limits : A&Ox4, calm, appropriate, cooperative, no acute distress Sujatha Pineda RN - 05/31/2023 07:56 CDT Vital Signs - Admission Height : 160 cm(Converted to: 5.25 ft, 62.99 inch(es)) Weight : 86.7 kg(Converted to: 191.141 pound(s)) Body Mass Index : 33.87 kg/m2 Temperature Temporal Artery : 36.5 DegC(Converted to: 97.7 DegF) Peripheral Pulse Rate : 63 bpm Respiratory Rate : 16 br/min Systolic Blood Pressure : 137 mm Hg Diastolic Blood Pressure : 71 mm Hg Mean Arterial Pressure : 93 mm Hg Primary Pain Intensity : 0 = No pain Oxygen Saturation : 98 % Oxygen Therapy : Room air Sujatha Pineda RN - 05/31/2023 07:56 CDT Lj Sensory Perception Lj : No impairment Moisture Lj : Rarely moist Activity Lj : Walks frequently Mobility Lj : No limitations Nutrition Lj : Excellent Friction and Shear Lj : No apparent problem Lj Score : 23 Sujatha Pineda RN - 05/31/2023 07:56 CDT Fall Risk History of Fall in Last 3 Months Winn : No Fell Prior to Hospitalization : Yes Date of Fall - Prior to Hospitalization : fell over chair 6-3-20 Unsteady when Walking/Climbing Stairs? : No Any Active Secondary Medical Diagnosis Winn : No Use of Ambulatory Aid Winn : None, bedrest, wheelchair, nurse IV or Any Vascular Access Present Winn : Yes Gait/Transferring Fall Risk Winn : Normal, bedrest, immobile Mental Status Fall Risk Winn : Oriented to own ability Winn Fall Risk Score : 20 Sujatha Pineda RN - 05/31/2023 08:04 CDT Nutrition Screen Nutritional Risk Factors Lost Weight Recently Without Trying? : No Questions Related to Diet? : No Poor Nutritional Intake > 5 days : No Nutrition Brochure Given to Patient : No Sujatha Pineda RN - 05/31/2023 08:04 CDT ADLs Activity Status ADL : Ambulating in amor Activity Assistance : Independent Cough and Deep Breathe : Done Assistive Device : None Sujatha Pineda RN - 05/31/2023 08:04 CDT ADLs II Safety Checklist/Fall Prevention : Allergy Band, Call device within reach, Family with Patient Sujatha Pineda RN - 05/31/2023 08:04 CDT Psychosocial Support System Available : Yes Support System : Little interest/pleasure in doing things? : No Feeling down, depressed, or hopeless? : No Patient going to Nursing Division after OR? : No Sujatha Pineda RN - 05/31/2023 08:04 CDT Cultural/Spiritual Special Practices to be Part of Care : No Pastoral Care to Visit : No Sujatha Pineda RN - 05/31/2023 08:04 CDT INTEGUMENTARY Skin Symptoms : Other: left hand burn 05/29 Sujatha Pineda RN - 05/31/2023 08:04 CDT * Event Display: Authorization to Treat Authored Date: * Event Display: Authorization to Treat Authored Date: * Courtney Bonilla PCT: PERFORM Event Display: Patient History Adult - Text Authored Date: [id number] Patient History ([facility] Local) Entered On: 05/30/2023 12:53 CDT Performed On: 05/30/2023 12:33 CDT by Courtney Bonilla [facility] General Information Preferred Name : No qualifying data available. Admitted From : Self (Non-HC Facility Source of Origin) Mode of Arrival : Ambulatory Accompanied By : Spouse Information Given By : Patient Primary Care Physician Search : Doctor, Not On Staff Communicable Diseases : None Languages : Tamazight Courtney Bonilla [facility] - 05/30/2023 12:33 CDT Communication/Educational Needs Patient/Family Education Needs : Allergies, Immunizations, Medications, Plan of care, Preoperative instructions, Surgery Preferred Mode of Communication : Verbal Courtney Bonilla [facility] - 05/30/2023 12:33 CDT Preferred Language-[facility] Information Given By : Patient Preferred Language of Patient/Caregiver : Tamazight Courtney Bonilla [facility] - 05/30/2023 12:33 CDT Problem List Adult (SDS) Past Medical History Reviewed : Yes Courtney Bonilla [facility] - 05/30/2023 12:33 CDT (As Of: 05/30/2023 12:53 CDT) Problems(Active) Afib (SNOMED CT :54063000 ) Name of Problem: Afib ; Recorder: Leticia oRdrigues RN; Confirmation: Confirmed ; Classification: Patient Stated ; Code: [id number] ; Contributor System: evly ; Last Updated: 08/11/2019 07:14 CDT ; Life Cycle Date: 08/11/2019 ; Life Cycle Status: Active ; Vocabulary: SNOMED CT Apnea, sleep (SNOMED CT :990978059 ) Name of Problem: Apnea, sleep ; Recorder: Leticia To RN; Confirmation: Confirmed ; Classification: Medical ; Code: [id number] ; Contributor System: [employer] ; Last Updated: 08/30/2015 09:26 CDT ;Life Cycle Date: 08/30/2015 ; Life Cycle Status: Active ; Vocabulary: SNOMED CT Arm numbness (SNOMED CT :065427728 ) Name of Problem: Arm numbness ; Recorder: Naila Sanchez RN; Confirmation: Confirmed ; Classification: Medical ; Code: [id number] ; Contributor System: Power[employer] ; Last Updated: 09/20/2015 10:33CDT ; Life Cycle Date: 09/20/2015 ; Life Cycle Status: Active ; Vocabulary: SNOMED CT ; Comments: 09/20/2015 10:33 - Naila Sanchez RN right arm, hand Asthma (SNOMED CT :830552646 ) Name of Problem: Asthma ; Recorder: Leticia To RN; Confirmation: Confirmed ; Classification: Medical ; Code: [id number] ; Contributor System: Power[employer] ; Last Updated: 08/30/2015 09:24 CDT ; LifeCycle Date: 08/30/2015 ; Life Cycle Status: Active ; Vocabulary: SNOMED CT Bleeding tendency (SNOMED CT :967152312 ) Name of Problem: Bleeding tendency ; Recorder: Kathy Sharma Exhibitions Curator; Confirmation: Confirmed ; Classification: Medical ; Code: [id number] ; Contributor System: PowerChart ; Last Updated: 03/05/2019 14:39 BALLPOINT PEN CARTRIDGE TESTER ; Life Cycle Date: 03/05/2019 ; Life Cycle Status: Active ; Responsible Provider: Kathy Sharma Exhibitions Curator; Vocabulary: SNOMED CT Cataract (SNOMED CT :497361263 ) Name of Problem: Cataract ; Recorder: Cheri Nova RN; Confirmation: Confirmed ; Classification: Patient Stated ; Code: [id number] ; Contributor System: PowerChart ; Last Updated: 08/08/2019 14:58 CDT ; Life Cycle Date: 08/08/2019 ; Life Cycle Status: Active ; Vocabulary: SNOMED CT Connective tissue disease (SNOMED CT :3243040663 ) Name of Problem: Connective tissue disease ; Recorder: Kathy Sharma Exhibitions Curator; Confirmation: Confirmed ; Classification: Medical ; Code: [id number] ; Contributor System: PowerChart ; Last Updated: 03/05/2019 14:40 BALLPOINT PEN CARTRIDGE TESTER ; Life Cycle Date: 03/05/2019 ; Life Cycle Status: Active ; Responsible Provider: Kathy Sharma Exhibitions Curator; Vocabulary: SNOMED CT Depression (SNOMED CT :98507551 ) Name of Problem: Depression ; Recorder: Leticia To RN; Confirmation: Confirmed ; Classification: Medical ; Code: [id number] ; Contributor System: PowerChart ; Last Updated: 08/30/2015 09:28 CDT ; Life Cycle Date: 08/30/2015 ; Life Cycle Status: Active ; Vocabulary: SNOMED CT Fibromyalgia (SNOMED CT :09228626 ) Name of Problem: Fibromyalgia ; Recorder: Leticia To RN; Confirmation: Confirmed ; Classification: Medical ; Code: 54930776 ; Contributor System: PowerChart ; Last Updated: 08/30/2015 09:27 CDT ; Life Cycle Date: 08/30/2015 ; Life Cycle Status: Active ; Vocabulary: SNOMED CT H/O hyperlipidemia (SNOMED CT :534411615 ) Name of Problem: H/O hyperlipidemia ; Recorder: Leticia To RN; Confirmation: Confirmed ; Classification: Medical ; Code: [id number] ; Contributor System: PowerChart ; Last Updated: 08/30/2015 09:27CDT ; Life Cycle Date: 08/30/2015 ; Life Cycle Status: Active ; Vocabulary: SNOMED CT H/O: osteoarthritis (SNOMED CT :923609392 ) Name of Problem: H/O: osteoarthritis ; Recorder: Leticia To RN; Confirmation: Confirmed ; Classification: Medical ; Code: [id number] ; Contributor System: PowerChart ; Last Updated: 08/30/2015 09:24 CDT ; Life Cycle Date: 08/30/2015 ; Life Cycle Status: Active ; Vocabulary: SNOMED CT H/O: stroke (SNOMED CT :4865267680 ) Name of Problem: H/O: stroke ; Recorder: Kathy Sharma Exhibitions Curator; Confirmation: Confirmed ; Classification: Medical ; Code: [id number] ; Contributor System: PowerChart ; Last Updated: 03/05/2019 14:39 BALLPOINT PEN CARTRIDGE TESTER ; Life Cycle Date: 03/05/2019 ; Life Cycle Status: Active ; Responsible Provider: Kathy Sharma Exhibitions Curator; Vocabulary: SNOMED CT Hematuria (SNOMED CT :493878402 ) Name of Problem: Hematuria ; Recorder: Daniel, Naila A RN; Confirmation: Confirmed ; Classification: Medical ; Code: [id number] ; Contributor System: PowerChart ; Last Updated: 09/20/2015 10:32 CDT ; Life Cycle Date: 09/20/2015 ; Life Cycle Status: Active ; Vocabulary: SNOMED CT HTN (hypertension) (SNOMED CT :5231221107 ) Name of Problem: HTN (hypertension) ; Recorder: Leticia To RN; Confirmation: Confirmed ; Classification: Medical ; Code: [id number] ; Contributor System: PowerChart ; Last Updated: 08/30/2015 09:26 CDT ; Life Cycle Date: 08/30/2015 ; Life Cycle Status: Active ; Vocabulary: SNOMED CT Hx of fusion of cervical spine (SNOMED CT :9231654267 ) Name of Problem: Hx of fusion of cervical spine ; Recorder: Jona Esparza MD; Confirmation: Confirmed ; Classification: Medical ; Code: [id number] ; Contributor System: PowerChart ; Last Updated: 03/05/2019 14:42 BALLPOINT PEN CARTRIDGE TESTER ; Life Cycle Date: 03/05/2019 ; Life Cycle Status: Active ; Responsible Provider: Jona Esparza MD; Vocabulary: SNOMED CT Hx of thyroid disease (SNOMED CT :494020166 ) Name of Problem: Hx of thyroid disease ; Recorder: Leticia To RN; Confirmation: Confirmed ; Classification: Medical ; Code: [id number] ; Contributor System: PowerChart ; Last Updated: 08/30/2015 09:27 CDT ; Life Cycle Date: 08/30/2015 ; Life Cycle Status: Active ; Vocabulary: SNOMED CT Kidney stones (SNOMED CT :250551593 ) Name of Problem: Kidney stones ; Recorder: Leticia To RN; Confirmation: Confirmed ; Classification: Medical ; Code: [id number] ; Contributor System: PowerChart ; Last Updated: 08/30/2015 09:26 CDT ; Life Cycle Date: 08/30/2015 ; Life Cycle Status: Active ; Vocabulary: SNOMED CT Lower back pain (SNOMED CT :138017933 ) Name of Problem: Lower back pain ; Recorder: Naila Sanchez RN; Confirmation: Confirmed ; Classification: Medical ; Code: [id number] ; Contributor System: PowerChart ; Last Updated: 09/20/2015 10:33 CDT ; Life Cycle Date: 09/20/2015 ; Life Cycle Status: Active ; Vocabulary: SNOMED CT Melanoma (SNOMED CT :3768259408 ) Name of Problem: Melanoma ; Recorder: Courtney Bonilla PCT; Confirmation: Confirmed ; Classification: Medical ; Code: [id number] ; Contributor System: PowerChart ; Last Updated: 05/30/2023 12:48 CDT; Life Cycle Date: 05/30/2023 ; Life Cycle Status: Active ; Vocabulary: SNOMED CT ; Comments: 05/30/2023 12:48 - Courtney Bonilla PCT right forearm Migraines (SNOMED CT :36598346 ) Name of Problem: Migraines ; Recorder: Leticia To RN; Confirmation: Confirmed ; Classification: Medical ; Code: [id number] ; Contributor System: PowerChart ; Last Updated: 08/30/2015 09:28 CDT ; Life Cycle Date: 08/30/2015 ; Life Cycle Status: Active ; Vocabulary: SNOMED CT MIDDLETON (nonalcoholic steatohepatitis) (SNOMED CT :4269451763 ) Name of Problem: MIDDLETON (nonalcoholic steatohepatitis) ; Recorder: Leticia To RN; Confirmation: Confirmed ; Classification: Medical ; Code: [id number] ; Contributor System: PowerChart ; Last Updated: 08/30/2015 09:27 CDT ; Life Cycle Date: 08/30/2015 ; Life Cycle Status: Active ; Vocabulary: SNOMEDCT Neck pain (SNOMED CT :467064091 ) Name of Problem: Neck pain ; Recorder: Naila Sanchez RN; Confirmation: Confirmed ; Classification: Medical ; Code: [id number] ; Contributor System: PowerChart ; Last Updated: 09/20/2015 10:33 CDT ; Life Cycle Date: 09/20/2015 ; Life Cycle Status: Active ; Vocabulary: SNOMED CT Pain in right shoulder (SNOMED CT :33156840 ) Name of Problem: Pain in right shoulder ; Recorder: Naila Sanchez RN; Confirmation: Confirmed ; Classification: Medical ; Code: [id number] ; Contributor System: PowerChart ; Last Updated: 09/20/2015 10:33 CDT ; Life Cycle Date: 09/20/2015 ; Life Cycle Status: Active ; Vocabulary: SNOMED CT Sleep apnea (SNOMED CT :095865337 ) Name of Problem: Sleep apnea ; Recorder: Kathy Sharma Exhibitions Curator; Confirmation: Confirmed ; Classification: Medical ; Code: [id number] ; Contributor System: PlayFilmChart ; Last Updated: 03/05/2019 14:40 BALLPOINT PEN CARTRIDGE TESTER ; Life Cycle Date: 03/05/2019 ; Life Cycle Status: Active ; Responsible Provider: Kathy Sharma Exhibitions Curator; Vocabulary: SNOMED CT Allergy (As Of: 05/31/2023 08:06 CDT) Allergies (Active) Adhesive Tape Estimated Onset Date: Unspecified ; Reactions: Blistered skin.. ; Created By: Naila Sanchez RN; Reaction Status: Active ; Category: Other ; Substance: Adhesive Tape ; Type: Allergy ; Updated By: Naila Sanchez RN; Source: Patient ; Reviewed Date: 05/31/2023 08:01 CDT codeine Estimated Onset Date: Unspecified ; Reactions: Hives ; Created By: Constantino Choe PA-C; Reaction Status: Active ; Category: Drug ; Substance: codeine ; Type: Side Effect ; Severity: Severe ; Updated By: Constantino Choe PA-C; Source: Patient ; Reviewed Date: 05/31/2023 08:01 CDT Demerol HCl Estimated Onset Date: Unspecified ; Reactions: Hives ; Created By: Constantino Choe PA-C; Reaction Status: Active ; Category: Drug ; Substance: Demerol HCl ; Type: Side Effect ; Updated By: Constantino Choe PA-C; Source: Patient ; Reviewed Date: 05/31/2023 08:01 CDT doxycycline Estimated Onset Date: Unspecified ; Reactions: Stomach upset ; Created By: Cheri Nova RN; Reaction Status: Active ; Category: Drug ; Substance: doxycycline ; Type: Allergy ; Updated By: Cheri Nova RN; Reviewed Date: 05/31/2023 08:01 CDT DULoxetine Estimated Onset Date: Unspecified ; Reactions: Depression, NOS ; Created By: Cheri Nova RN; Reaction Status: Active ; Category: Drug ; Substance: DULoxetine ; Type: Allergy ; Updated By: Cheri Nova RN; Reviewed Date: 05/31/2023 08:01 CDT gabapentin Estimated Onset Date: Unspecified ; Reactions: swelling ; Created By: Kathy Sharma BUTTON CUTTER; Reaction Status: Active ; Category: Drug ; Substance: gabapentin ; Type: Allergy ; Updated By: Kathy Sharma BUTTON CUTTER; Reviewed Date: 05/31/2023 08:01 CDT levofloxacin Estimated Onset Date: Unspecified ; Reactions: Joint pain ; Created By: Naila Sanchez RN; Reaction Status: Active ; Category: Drug ; Substance: levofloxacin ; Type: Allergy ; Updated By: Naila Sanchez RN; Source: Patient ; Reviewed Date: 05/31/2023 08:01 CDT pregabalin Estimated Onset Date: Unspecified ; Reactions: swelling ; Created By: Kathy hSarma BUTTON CUTTER; Reaction Status: Active ; Category: Drug ; Substance: pregabalin ; Type: Allergy ; Updated By: Kathy Sharma BUTTON CUTTER; Reviewed Date: 05/31/2023 08:01 CDT prochlorperazine Estimated Onset Date: Unspecified ; Reactions: Unknown ; Created By: Shivani Silva RN; Reaction Status: Active ; Category: Drug ; Substance: prochlorperazine ; Type: Allergy ; Updated By: Shivani Silva RN; Reviewed Date: 05/31/2023 08:01 CDT Medication List Anticoagulant Therapy in Last 7 Days : No Chemotherapy Med. Currently Taking : Courtney Alston [facility] - 05/30/2023 12:33 CDT Medication List (As Of: 05/31/2023 08:06 CDT) Home Meds sertraline : sertraline ; Status: Completed ; Ordered As Mnemonic: sertraline 100 mg oral tablet ; Simple Display Line: 200 mg, 2 tablet(s), daily, 0 Refill(s) ; Catalog Code: sertraline ; Order Dt/Tm: 03/05/2019 14:58 BALLPOINT [employer]TR[employer] TESTER acetaminophen-HYDROcodone : acetaminophen-HYDROcodone ; Status: Completed ; Ordered As Mnemonic: acetaminophen-HYDROcodone 325 mg-10 mg oral tablet ; Simple Display Line: 1 tablet(s), Oral, [id number], PRN: pain, 0 Refill(s) ; Catalog Code: acetaminophen- HYDROcodone ; Order Dt/Tm: 03/05/2019 14:58 BALLPOINT P[employer] CARTRIDGE TESTER zolpidem : zolpidem ; Status: Completed ; Ordered As Mnemonic: zolpidem 5 mg oral tablet ; Simple Display Line: 5 mg, 1 tablet(s), Oral, qhs, PRN: sleep, 30 tablet(s), 0 Refill(s) ; Catalog Code: zolpidem ; Order Dt/Tm: 08/30/2015 09:43 CDT tiZANidine : tiZANidine ; Status: Completed ; Ordered As Mnemonic: tiZANidine 4 mg oral capsule ; Simple Display Line: 4 mg, 1 capsule(s), Oral, qhs, 0 Refill(s) ; Catalog Code: tiZANidine ; Order Dt/Tm: 08/30/2015 09:39 CDT esomeprazole : esomeprazole ; Status: Completed ; Ordered As Mnemonic: esomeprazole 20 mg oral delayed release capsule ; Simple Display Line: 20 mg, 1 capsule(s), Oral, qhs, 30 capsule(s), 0 Refill(s) ; Catalog Code: esomeprazole ; Order Dt/Tm: 08/30/2015 09:37 CDT buPROPion : buPROPion ; Status: Completed ; Ordered As Mnemonic: buPROPion 150 mg/12 hours (SR) oral tablet, extended release ; Simple Display Line: 150 mg, 1 tablet(s), Oral, bid, 180 tablet(s), 0 Refill(s) ;Catalog Code: buPROPion ; Order Dt/Tm: 08/30/2015 09:33 CDT cyanocobalamin : cyanocobalamin ; Status: Documented ; Ordered As Mnemonic: Vitamin B12 1000 mcg oral tablet ; Simple Display Line: 1,000 mcg, 1 tablet(s), Oral, daily, 30 tablet(s), 0 Refill(s) ; Catalog Code: cyanocobalamin ; Order Dt/Tm: 05/30/2023 12:50 CDT acetaminophen-oxyCODONE : acetaminophen-oxyCODONE ; Status: Documented ; Ordered As Mnemonic: acetaminophen-oxyCODONE 325 mg-10 mg oral tablet ; Simple Display Line: 1 tablet(s), Oral, [id number], for 3 day(s), PRN: pain, 18 tablet(s), 0 Refill(s) ; Catalog Code: acetaminophen-oxyCODONE ; Order Dt/Tm: 05/30/2023 12:49 CDT tiZANidine : tiZANidine ; Status: Documented ; Ordered As Mnemonic: Zanaflex 4 mg oral tablet ; Simple DisplayLine: 4 mg, 1 tablet(s), Oral, qhs, PRN: muscle spasm, 90 tablet(s), 0 Refill(s) ; Catalog Code: tiZANidine ; Order Dt/Tm: 05/30/2023 12:49 CDT eszopiclone : eszopiclone ; Status: Documented ; Ordered As Mnemonic: Lunesta 3 mg oral tablet ; Simple DisplayLine: 3 mg, 1 tablet(s), Oral, qhs, PRN: sleep, 30 tablet(s), 0 Refill(s) ; Catalog Code: eszopiclone ; Order Dt/Tm: 05/30/2023 12:38 CDT buPROPion : buPROPion ; Status: Documented ; Ordered As Mnemonic: buPROPion 300 mg/24 hours (XL) oral tablet,extended release ; Simple Display Line: 300 mg, 1 tablet(s), Oral, daily, 30 tablet(s), 0 Refill(s); Catalog Code: buPROPion ; Order Dt/Tm: 05/30/2023 12:37 CDT DULoxetine : DULoxetine ; Status: Documented ; Ordered As Mnemonic: Cymbalta 60 mg oral delayed release capsule ; Simple Display Line: 60 mg, 1 capsule(s), Oral, daily, 30 capsule(s), 0 Refill(s) ; Catalog Code: DULoxetine ; Order Dt/Tm: 05/30/2023 12:37 CDT biotin : biotin ; Status: Documented ; Ordered As Mnemonic: biotin 5000 mcg oral capsule ; Simple Display Line: 5,000 mcg, 1 capsule(s), Oral, daily, 0 Refill(s) ; Catalog Code: biotin ; Order Dt/Tm: 08/08/2019 14:52 CDT multivitamin with minerals : multivitamin with minerals ; Status: Documented ; Ordered As Mnemonic: Bariatric Multivitamins with 45 mg Iron ; Simple Display Line: 1 capsule(s), Oral, daily, 0 Refill(s) ; Catalog Code: multivitamin with minerals ; Order Dt/Tm: 03/05/2019 14:59 BALLPOINT PEN CARTRIDGE TESTER folic acid : folic acid ; Status: Documented ; Ordered As Mnemonic: folic acid 0.4 mg oral tablet ; Simple Display Line: 0.4 mg, 1 tablet(s), Oral, daily, 0 Refill(s) ; Catalog Code: folic acid ; Order Dt/Tm: 03/05/2019 14:59 BALLPOINT PEN CARTRIDGE TESTER aspirin : aspirin ; Status: Documented ; Ordered As Mnemonic: aspirin 81 mg oral enteric coated tablet ; Simple Display Line: 81 mg, 1 tablet(s), Oral, Torrez, 0 Refill(s) ; Catalog Code: aspirin ; Order Dt/Tm: 03/05/2019 14:59 BALLPOINT PEN CARTRIDGE TESTER albuterol : albuterol ; Status: Documented ; Ordered As Mnemonic: albuterol 90 mcg/inh inhaler ; Simple Display Line: 2 puff(s), Inhalation, [id number], PRN: shortness of breath, 1 inhaler, 0 Refill(s) ; Catalog Code: albuterol ; Order Dt/Tm: 09/20/2015 10:30 CDT pravastatin : pravastatin ; Status: Documented ; Ordered As Mnemonic: pravastatin 40 mg oral tablet ; Simple Display Line: 80 mg, 2 tablet(s), Oral, daily, 90 tablet(s), 0 Refill(s) ; Catalog Code: pravastatin ;Order Dt/Tm: 09/20/2015 10:21 CDT levothyroxine : levothyroxine ; Status: Documented ; Ordered As Mnemonic: levothyroxine 88 mcg (0.088 mg) oral tablet ; Simple Display Line: 88 mcg, 1 tablet(s), Oral, daily before breakfast, 30 tablet(s), 0 Refill(s) ; Catalog Code: levothyroxine ; Order Dt/Tm: 08/30/2015 09:35 CDT TB Screen Previous Pneumococcal Vaccine? : Less than 65 years of age - [place] Flu Vaccine This Season? : Not Flu Season Novel Coronavirus Received Vaccine : Yes Novel Coronavirus Vaccine Type : Moderna Novel Coronavirus Completed Vac Series : Yes Novel Coronavirus Booster Vaccine Received : Yes Courtney Bonilla PCT - 05/30/2023 12:33 CDT Novel Coronavirus Assessment Novel Coronavirus Current Fever : No Novel Coronavirus Exposed COVID 14 days : No Courtney Bonilla PCT - 05/30/2023 12:33 CDT Functional Living Situation : Home independently Current Home Treatments : Blood glucose monitoring, CPAP Mobility Assistance Prior to Admission : Independent Exercise, Functional : Regular Medical Devices : None Radiology Testing Barriers/Precautions : Glucose sensor (Comment: eversense [Courtney Bonilla [facility] - 05/30/2023 12:33 CDT] ) Courtney Bonilla [facility] - 05/30/2023 12:33 CDT Social Habits Social History Reviewed : Yes Courtney Bonilla [facility] - 05/30/2023 12:33 CDT Social History (As Of: 05/30/2023 12:53 CDT) Tobacco: Never smoker, Smokeless Tobacco use: Never. N/A Cessation Counseling. (Last Updated: 05/30/2023 12:45 CDT by Courtney Bonilla [facility]) Alcohol: Never alcohol user (Last Updated: 05/30/2023 12:45 CDT by Courtney Bonilla [facility]) Substance Abuse: Never drug user (Last Updated: 05/30/2023 12:45 CDT by Courtney Bonilla [facility]) Psychosocial Domestic Violence Screening : Patient does not have domestic violence concerns Current Danger to Self or Others : No Sad Persons Indicators : Not applicable Sad Persons Score : 0 Courtney Bonilla [facility] - 05/30/2023 12:33 CDT Checklist Patient Safety Grid Allergy Band on and Verified : Yes Blood Band on and Verified : No ID Band on and Verified : Yes Implants Verified : No Pacemaker/AICD Verified : No Site Verified by Patient/Family : Yes Site Verified by RN : Yes Site Verified by Physician : Yes Latex Allergy : No Chlorhexidine Wipes Used : Yes Sujatha Pineda RN - 05/31/2023 08:00 CDT Patient Rights Grid Surgical Consent Signed : Yes Sujatha Pineda RN - 05/31/2023 08:00 CDT Last Fluid Intake : 05/31/2023 06:30 CDT Last Food Intake : 05/31/2023 06:30 CDT Last Fluid Comments : banana at 0630 Sujatha Pineda RN - 05/31/2023 08:00 CDT Valuables Clothes, Patient Valuables at Bedside : Pants, Shirt, Shoes Electronic Devices at Bedside : Cell phone Sujatha Pineda RN - 05/31/2023 08:00 CDT Education Preprocedure Education Grid Procedure Type : excision of melanoma-right forearm Preprocedure Education Topics : Family instructions, Jewelry/valuables, Medication instructions, Plan of care, Pre-op shower/shampoo, Preprocedure diet Individuals Taught : Patient Barriers to Learning : None evident Teaching Method : Explanation Assessment/Outcome Evaluation : Verbalizes understanding Courtney Bonilla [facility] - 05/30/2023 12:33 CDT * Event Display: ROI_Correspondence Authored Date: * Event Display: ROI_Correspondence Authored Date: * HPF, Image_Migration: VERIFY, PERFORM Event Display: ROI_Correspondence Authored Date: [id number] History and physical note * Roscoe Coelho MD: PERFORM, SIGN, VERIFY Event Display: History and Physical Authored Date: [id number] Patient: OMAR GRESHAM Age: 63 years Sex: Female : 1960 Associated Diagnoses: None Author: Roscoe Coelho MD History of Present Illness Right forearm melanoma. Health Status Allergies: Allergies (9) Active Severity Reaction codeine Severe Hives Demerol HCl Hives levofloxacin Joint pain Adhesive Tape Blistered skin.. gabapentin swelling pregabalin swelling doxycycline Stomach upset DULoxetine Depression, NOS prochlorperazine Unknown Problem list: Active Problems (24) Afib Apnea, sleep Arm numbness Asthma Bleeding tendency Cataract Connective tissue disease Depression Fibromyalgia H/O hyperlipidemia H/O: osteoarthritis H/O: stroke Hematuria HTN (hypertension) Hx of fusion of cervical spine Hx of thyroid disease Kidney stones Lower back pain Melanoma Migraines MIDDLETON (nonalcoholic steatohepatitis) Neck pain Pain in right shoulder Sleep apnea Histories Past Medical History: Resolved GERD (gastroesophageal reflux disease) ([id number]): Resolved. Family History: Peripheral vascular disease Father Diabetes mellitus Sister Rheumatoid arthritis Sister Pulmonary fibrosis Father Heart disease Father Breast cancer Mother Heart attack Father Lung cancer... Mother Procedure history: LAP GASTRIC BYPASS/JASON-EN-Y (13659) in the month of 06/2018 at 58 Years. C4-7 ACDF (Dr Esparza) on 10/12/2015 at 55 Years. Rotator cuff repair ([id number]). Comments: 09/20/2015 10:37 Naila Hallman RN right Total hysterectomy (021929202). D&C - Dilatation and curettage (6854603345). Comments: 09/20/2015 10:43 Naila Hallman RN x 8 Suspension of bladder (1513697). Excision of mass from thigh ([id number]). Comments: 09/20/2015 10:44 Naila Hallman RN left Biopsy of muscle (639892484). Comments: 09/20/2015 10:45 Naila Hallman RN left calf Repair of inguinal hernia (36291378). Comments: 09/20/2015 10:45 Naila Hallman RN right Laparoscopic adjustable gastric banding ([id number]). APPENDECTOMY (32612). LEEP. Social History Social & Psychosocial Habits Alcohol 05/30/2023 Use: Never alcohol user Substance Abuse 05/30/2023 Use: Never drug user Tobacco 05/30/2023 Smoking Tobacco Use: Never smoker Smokeless Tobacco use: Never Tobacco Cessation Counseling Requested N/A . Physical Examination No Data Available 24 Hr Tmax: No Data Available 36 Hr Tmax: No Data Available Vital Signs are the last 5 in the past 48 hours. Weights display the last 5 within 7 days. Initial Wt: No Data Available HENT: Normocephalic. Eye: Pupils are equal, round and reactive to light. Neck: Supple. Respiratory: Lungs are clear to auscultation. Cardiovascular: Normal rate. Gastrointestinal: Soft. Review / Management Results review: No qualifying data available . Impression and Plan Diagnosis Malignant melanoma : [id number] C43.9, Working, Medical. Orders Wide excision right forearm melanoma. [Electronically Signed on 05/31/2023 07:23 AM CDT] Roscoe Coelho MD CC: [facility] Surgical operation note * Roscoe Coelho MD: PERFORM, SIGN, VERIFY Event Display: Operative Report Authored Date: Patient: OMAR GRESHAM Age: 63 years Sex: Female : 1960 Associated Diagnoses: None Author: Roscoe Coelho MD Postoperative Information Date/Time of Procedure 05/31/2023 09:27:00 Indications for Procedure Patient has melanoma in situ on the right forearm. Here for wide excision Pre-Operative Diagnosis Malignant melanoma : [id number] C43.9, Working, Medical Post-Operative Diagnosis Same as Pre-Operative Diagnosis Name of Procedure Perfomed: Wide excision right forearm melanoma. Peformed by Self Discussion of Procedure with Patient Procedure discussed with the patient and her . They understand and agree to proceed Patient Account Representative(s) Lupis Mendiola Anesthesia Used Local Description of Procedure Patient identified in holding. After informed consent obtained brought to the operating room placedin the supine position. Timeout was done. Right forearm prepped and draped in sterile fashion. Skin anesthetized 1% lidocaine. This was a 1 cm lesion. Elliptical incision made longitudinally oriented. Excision measured 2.5 x 1.5 cm. Lesion marked with a stitch superiorly. Handed off as a specimen. Cautery used for hemostasis. Subcutaneous tissues closed 3-0 Vicryl interrupted. Skin closed 4-0 Monocryl. Steri-Strips placed. Patient discharged home in stable condition. All counts appropriate Specimens Removed Sent to Pathology Estimated Blood Loss 3 mL Complications None [Electronically Signed on 05/31/2023 09:32 AM CDT] Roscoe Coelho MD CC: [facility] Hospital Summary note * Cheri Nova RN: PERFORM, SIGN, VERIFY Event Display: Inpatient Patient Summary Authored Date: [id number] [facility]???s [address] [address] [email or web address] Patient Visit Summary Patient Information: Name: OMAR GRESHAM Age: 63 Years Date of : 1960 Allergies: DULoxetine; Adhesive Tape; pregabalin; Demerol HCl; levofloxacin; gabapentin; prochlorperazine; doxycycline; codeine Diagnosis: Provider Information: Admitting Physician: Roscoe Coelho MD Attending Physician: Roscoe Coelho MD Consulting Physician: [facility]???s [facility] would like to thank you for allowing us to assist you with the healthcare needs. The following information includes patient education materials and information regarding your injury/illness. Our entire staff strives to provide a very good experience for our patients and their families. You may receive, by mail, a survey about your experience with us at [facility]??[facility].PLEASE ENSURE YOU FOLLOW-UP PER THE INSTRUCTIONS BELOW. OMAR GRESHAM has been given the following list of patient education materials, prescriptions and follow-up instructions. Discharge orders: Order Name Order Details Contact your Surgeon Contact your surgeon for pain or other questions/concerns. Discharge Activity Restrictions No Strenuous Activity x 48 hours Follow-up instructions post Discharge Follow up with Dr. Coelho as needed Special Discharge Instructions 05/31/23 9:07:00 CDT, May Remove Dressing in 2 days; may remove steri strips in 14 days, 05/31/23 9:07:00 CDT Special Discharge Instructions 05/31/23 9:07:00 CDT, May Shower in 2 days, 05/31/23 9:07:00 CDT Follow-up Instructions: With: Address: When: Roscoe Coelho [address], [address] [place] [address] Business (5) Exchange (1) Patient Visit Summary: Handwashing: Tips for Patients, Family, and Friends DISCHARGE INSTRUCTIONS_OPR Outpatient Surgery Instructions: If you have any problems regarding your procedure after discharge, please contact your surgeon or if after normal business hours, call the exchange. In the event of an emergency, please call 911 or go to your nearest Emergency Department. Patient Home Medications Returned: No home medications Activity After Discharge: No strenuous activity No Driving For: 24 Hours Diet After Discharge: Resume normal diet as tolerated Incision/Wound Care After Discharge: Call if temperature is above 101 degrees F or if change in wound/incision/drainage is noted Discharge Medication Planning: Discharge Medication Information provided, Medication Side Effects Information explained and provided, Ability to obtain prescribed medication confirmed, Due to medications you have received, you should not drive a vehicle or operate machinery for 24 hours Medication Information: [facility]???[facility] Physicians provided you with a complete list of medications post discharge, if you have been instructed to stop taking a medication please ensure you also follow-up with this information to your Primary Care Physician. Any specific questions regarding your chronic medications and dosages should be discussed with your physician(s) and pharmacist. Other Medications acetaminophen (Tylenol 325 mg oral tablet) 2 tablet(s) By mouth every 4 hours as needed pain, mild. acetaminophen-oxyCODONE (acetaminophen-oxyCODONE 325 mg-10 mg oral tablet) 1 tablet(s) By mouth every 4 hours as needed pain for 3 day(s). albuterol (albuterol 90 mcg/inh inhaler) 2 puff(s) Inhalation every 4 hours as needed shortness of breath. aspirin (aspirin 81 mg oral enteric coated tablet) 1 tablet(s) By mouth Sunday. biotin (biotin 5000 mcg oral capsule) 1 capsule(s) By mouth daily. buPROPion (buPROPion 300 mg/24 hours (XL) oral tablet, extended release) 1 tablet(s) By mouth daily. cyanocobalamin (Vitamin B12 1000 mcg oral tablet) 1 tablet(s) By mouth daily. DULoxetine (Cymbalta 60 mg oral delayed release capsule) 1 capsule(s) By mouth daily. eszopiclone (Lunesta 3 mg oral tablet) 1 tablet(s) By mouth every evening at bedtime as needed sleep. folic acid (folic acid 0.4 mg oral tablet) 1 tablet(s) By mouth daily. ibuprofen (Motrin) 400 Milligram By mouth every 6 hours as needed pain, mild. levothyroxine (levothyroxine 88 mcg (0.088 mg) oral tablet) 1 tablet(s) By mouth daily before breakfast. multivitamin with minerals (Bariatric Multivitamins with 45 mg Iron) 1 capsule(s) By mouth daily. pravastatin (pravastatin 40 mg oral tablet) 2 tablet(s) By mouth daily. tiZANidine (Zanaflex 4 mg oral tablet) 1 tablet(s) By mouth every evening at bedtime as needed muscle spasm. Patient Education Materials: Handwashing: Tips for Patients, Family, and Friends Germs are everywhere around us. Normally, we live with germs without getting sick. In certain cases, harmful germs cause us to get sick with an infection. Or we can spread harmful germs to others andcause them to get sick. Keeping your hands clean is the best way to prevent getting or spreading germs that cause infection. Wash your hands with soap and water or use an alcohol-based hand fish cleaner. When to clean your hands: For patients In the hospital or in your home, you can come in contact with many harmful germs. To help prevent infection, wash your hands often, especially: ???After using the bathroom ???Before and after eating ???After coughing or sneezing ???After using a tissue ???After touching or changing a dressing or bandage ???After touching any object or surface that may be contaminated ???After touching an animal during a pet therapy session (hospital) ???After touching an animal, cleaning up after a pet, or??preparing food for pets (home) If you don???t have access to soap and water, use an alcohol-based hand gel containing at least 60%alcohol. These products kill most germs and are easy to use. But if your hands are visibly dirty, use soap and water (not alcohol-based hand gel). When to clean your hands: For family and friends When visiting or caring for a loved one, washing your hands or using an alcohol- based hand fish cleaner can help stop germs from spreading. Wash your hands: ???Before entering and after leaving the patient???s room ???As soon as you remove gloves or other protective clothing ???After changing a dressing or bandage ???After any contact with blood or other body fluids ???After touching or changing the patient???s bed linen or towels ???After touching an animal during a pet therapy session (hospital) ???After touching an animal, cleaning up after a pet, or??preparing food for pets (home) Many hospitals have sinks or gel dispensers right outside patient rooms. If not, carry a bottle of alcohol-based hand gel with you. Use it every time you visit. If your hands are visibly dirty, use soap and water (not alcohol-based hand gel). Tips for good handwashing Here are some suggestions to follow: ???Use either cold or warm water and plenty of soap. Work up a good lather. ???Clean the whole hand, including under your nails, between your fingers, and up the wrists. ???Wash for at least 15 to 30 seconds. Don???t just wipe. Scrub well. Sing the [employer] Birthday song to reach the 30- second goal ???Rinse. Let the water run down your fingers, not up your wrists. ???Dry your hands well. Use a paper towel to turn off the faucet and open the door. Time matters The longer you wash your hands, the more germs you???ll remove. Most people wash their hands for 6 to 7 seconds. But at least??15 seconds??are needed to remove germs. Singing Happy Birthday or the ABC Song are examples of??how long??15 seconds would be.??To protect yourself and others from infection, washing for 30 seconds is best. How to use an alcohol-based hand fish cleaner Alcohol-based hand stopper setter may kill more germs than soap and water. Use them when your hands aren???t visibly dirty. For best results, follow these steps: ???Choose a gel or spray that contains at least 60% alcohol. Products with less alcohol may not kill germs. ???Spread about a tablespoon of fish cleaner in the palm of one hand. ???Rub your hands together briskly, cleaning the backs of your hands, the palms, between your fingers, and up the wrists. ???Rub until the fish cleaner is gone, and your hands are completely dry. Antibacterial soaps: ???Come in liquid or bar form and are used with water ???Are no better at removing germs than plain soap Alcohol-based hand stopper setter: ???Come in gels or sprays that don???t need water ???Work as well or better than washing with soap and water ?? [employer]. All rights reserved. This information is not intended as a substitute for professional medical care. Always follow your healthcare professional's instructions. Yes - Patient/Family/Caregiver verbalizes understanding of instructions given MP Davey CHARLOTTE A, have received the above patient education materials/instructions and haveverbalized understanding: Patient Signature Date/Time Nurse Signature Date/Time Patient Care team information Care Team Personnel Name: Jona Bravo MD Position: [facility] ONLY - MD NOT ON STAFF Member Role: Primary Care Physician Address: Address: [address] [place] [address]- Care Team Related Persons Name: MAXINE GRESHAM Address: [address] [place], [id number]
--- OUTSIDE RECORDS SUMMARY | 2024-02-17 06:17 | XMS_ITS | Continuity of Care Document ---
Author Organization [facility] Address [address] [place] [address] Assessment No assessment recorded. Plan of Treatment Reminders Order Date Submit Date Provider Last Modified By Organization Details Last Modified Time Details Appointments [facility] 2024 10:00A M KELVIN NEWELL MD Not available Not available Not available Lab None recorded. Referral None recorded. Procedures None recorded. Surgeries None recorded. Imaging None recorded. Medication Orders clobetaso l 0.05 % topical ointment [email or web address] [facility], [address] [facility], [place], [address], 12/19/2023 12:05:26 Patient TargetsNo targets recorded. Patient InstructionsNo instructions recorded. Reason for Referral None Reported. Procedures Surgical History Date Name Laterality Status Provider Name and Address Organization Details Recorded Time 11/18/19 23 completed Renetta Maldonado [facility] 12/18/2023 17:38:10 11/14/19 23 Date of Last Mammogram completed Renetta Maldonado [facility] 12/18/2023 17:38:32 06/13/19 23 Most Recent Bone Density completed Renetta Maldonado [facility] 12/18/2023 17:38:32 11/07/19 20 Date [facility]/18[facility]2023 17:38:32 06/25/19 20 Date of Last Pap Smear completed [facility] 12/18/2023 17:38:32 06/24/19 19 completed [facility] 12/18/2023 17:38:10 06/24/19 19 Gastric Bypass completed [facility] 12/18/2023 17:38:10 06/20/19 19 Bariatric Surgery completed [facility] 12/18/2023 17:38:10 06/24/19 00 Colonoscopy completed [facility] 12/18/2023 17:38:10 Gastric Bypass completed [facility] 12/18/2023 17:38:10 LEEP completed [facility] 12/18/2023 17:38:10 Dilation and Curettage completed [facility] 12/18/2023 17:38:10 Orthopedic Surgery completed [facility] 12/18/2023 17:38:10 Endometrial Ablation completed [facility] 12/18/2023 17:38:10 Hysteroscopy completed [facility] 12/18/2023 17:38:10 Laparoscopy completed [facility] 12/18/2023 17:38:10 Endometrial Biopsy completed [facility] 12/18/2023 17:38:10 Other completed [facility] 12/18/2023 17:38:10 Total Hysterectomy completed [facility] 12/18/2023 17:38:10 Appendectomy completed Renetta Maldonado [facility] 12/18/2023 17:38:10 Imaging Results None recorded. Procedure Notes None recorded. Medical Equipment None Reported. Allergies Allergen ID Allergen Name Allergen Category Reaction Reaction Severity Criticality Documentation Date Start Date Code Code System Note Provider Name and Address Organization Details Recorded Time 01838 codeine medicatio n Not available Not available Not available 12/18/2023 2670 [facility] 17:48:47 11702 meperidin e medicatio n Not available Not available Not available 12/18/2023 6754 RxNorm Renetta Maldonado [facility] 4 17:49:01 21817 levofloxa vishnu medicatio n Not available Not available Not available 12/18/2023 66167 RxNorm Renetta Maldonado [facility] 4 17:49:16 27758 gabapenti n medicatio n Not available Not available Not available 12/18/2023 96562 RxNorm Renetta Maldonado [facility] 4 17:49:27 50493 adhesive tape environme nt,medica tion Not available Not available Not available 12/18/2023 [facility] 17:49:34 16627 doxycycli ne Not available Not available Not available Not available 12/18/2023 3640 [facility] 17:49:45 Medications Name Sig Start Date Stop Date Status Note LastModified by Organization Details LastModified Time relion insulin syringe 31g x 5/16 relion insulin syringe 31g x 5/16 1 ml misc active Not Available Not Available Not Available tizanidine 4 mg tablet TAKE 1 TABLET BY MOUTH EVERY 8 HOURS NEEDED FOR SPASM active Not Available Not Available No t Available valacyclovi r 1 gram tablet TAKE 1 TABLET BY MOUTH ONCE DAILY 12/17 completed Not Available Not Available Not Available hydrocodone 5 mg-acetamin ophen 325 mg tablet TAKE 1 TO 2 TABLETS BY MOUTH EVERY 6 HOURS NEEDED FOR PAIN active Not Available Not Available No t Available amlodipine 2.5 mg tablet TAKE 1 TABLET BY MOUTH ONCE DAILY active Not Available Not Available No t Available lidocaine HCl 2 % mucosal jelly Take 1 applicati on every 6 hours by mucous route as needed. 12/17 completed Not Available Not Available Not Available valacyclovi r 500 mg tablet TAKE 1 TABLET BY MOUTH TWICE DAILY 12/17 completed Not Available Not Available Not Available hydrocodone 10 mg-acetamin ophen 325 mg tablet 12/17 completed Not Available Not Available Not Available spironolact one 25 mg tablet active Not Available Not Available Not Available ketorolac 10 mg tablet TAKE 1 TABLET BY MOUTH EVERY 6 HOURS FOR 5 DAYS 12/17 completed Not Available Not Available Not Available cefadroxil 500 mg capsule active Not Available Not Available Not Available levothyroxi ne 88 mcg tablet active Not Available Not Available Not Available alprazolam 0.5 mg tablet TAKE 1 TABLET BY MOUTH AT BEDTIME FOR 30 DAYS 12/17 completed Not Available Not Available Not Available pravastatin 80 mg tablet 12/17 completed Not Available Not Available Not Available temazepam 15 mg capsule active Not Available Not Available Not Available tamsulosin 0.4 mg capsule TAKE 1 CAPSULE BY MOUTH AT BEDTIME 12/17 completed Not Available Not Available Not Available cephalexin 500 mg capsule TAKE 1 CAPSULE BY MOUTH EVERY 8 HOURS active Not Available Not Available No t Available cyanocobala min (vit B-12) 1,000 mcg/mL injection solution active Not Available Not Available Not Available buspirone 10 mg tablet active Not Available Not Available Not Available losartan 25 mg tablet 01/17 completed Not Available Not Available Not Available clobetasol 0.05 % topical ointment APPLY A THIN LAYER(1g) TO THE AFFECTED AREA(vulv a) ONCE DAILY FOR 1 MONTH active Not Available Not Available No t Available estradiol 0.01% (0.1 mg/gram) vaginal cream Insert 1 g 3 times a week by vaginal route for 30 days. active Not Available Not Available No t Available albuterol sulfate HFA 90 mcg/actuati on aerosol inhaler active Not Available Not Available Not Available SSD 1 % topical cream 12/17 completed Not Available Not Available Not Available cefdinir 300 mg capsule active Not Available Not Available Not Available losartan 100 mg tablet active Not Available Not Available Not Available cholecalcif fredo (vitamin D3) 125 mcg (5,000 unit) capsule TAKE 1 CAPSULE BY MOUTH ONCE DAILY active Not Available Not Available No t Available buspirone 15 mg tablet active Not Available Not Available Not Available cyclobenzap rine 5 mg tablet TAKE 1 TABLET BY MOUTH NIGHTLY active Not Available Not Available No t Available bupropion HCl XL 300 mg 24 hr tablet, extended release active Not Available Not Available Not Available nitrofurant oin monohydrate /macrocryst als 100 mg capsule TAKE 1 CAPSULE BY MOUTH TWICE DAILY 12/17 completed Not Available Not Available Not Available duloxetine 60 mg capsule,del ayed release active Not Available Not Available Not Available eszopiclone 3 mg tablet TAKE 1 TABLET BY MOUTH ONCE DAILY (IMMEDIAT LISA BEFORE BEDTIME) 12/17 completed Not Available Not Available Not Available pregabalin 100 mg capsule TAKE 1 CAPSULE BY MOUTH TWICE DAILY 12/17 completed Not Available Not Available Not Available levofloxaci n active Not Available Not Available Not Available prochlorper azine active Not Available Not Available Not Available Gvoke HypoPen 1-Pack 1 mg/0.2 mL subcutaneou s auto-inject or active Not Available Not Available Not Available Vitals Date Recorded Body weight Body mass index (BMI) Body height Systolic blood pressure Diastolic blood pressure Provider Name and Address Organization Details Last Updated DateTime 12/18/2023 70573.14 g 33.8 kg/m2 160.02 cm 143 mm[Hg] 84 mm[Hg] Renetta Maldonado [facility] 4 17:48:08 Social History Question Answer Notes LastModified by Organizat ion Details LastModified Time Do You Have An Advance Directive? No Information n ot available 12/18/2023 What Is Your Level Of Alcohol Consumption? None Information not available 12/18/2023 Are You Blind Or Do You Have Difficulty Seeing? No Information not available 12/18/2023 What Is Your Level Of Caffeine Consumption? None [email or web address] Information not available 12/18/2023 In The 14 Days Before Symptom Onset, Have You Had Close Contact With A Laboratory-confirme d COVID-19 While That Case Was Ill? No [email or web address] Information n ot available 12/18/2023 In The 14 Days Before Symptom Onset, Have You Had Close Contact With A Person Who Is Under Investigation For COVID-19 While That Person Was Ill? No [email or web address] Information not available 12/18/2023 Have You Been To An Area Known To Be High Risk For COVID-19? No [email or web address] Information not available 12/18/2023 Are You Deaf Or Do You Have Serious Difficulty Hearing? No [email or web address] Information not available 12/18/2023 What Type Of Diet Are You Following? REGULAR Information n ot available 12/18/2023 What Is The Highest Grade Or Level Of School You Have Completed Or The Highest Degree You Have Received? [id number] [email or web address] Information not available 12/18/2023 What Is Your Occupation? Disabled Information not available 12/18/2023 Are There Any Guns Present In Your Home? No Information not available 12/18/2023 Do You Use Protection During Sex? No [email or web address] Information not available 12/18/2023 Do You Use Your Seat Belt Or Car Seat Routinely? Yes [email or web address] Information not available 12/18/2023 Do You Have Smoke And Carbon Monoxide Detectors In Your Home? Yes [email or web address] Information not available 12/18/2023 How Much Tobacco Do You Smoke? No [email or web address] Information not available 12/18/2023 Do You Feel Stressed (tense, Restless, Nervous, Or Anxious, Or Unable To Sleep At Night)? [id number] [email or web address] Information not available 12/18/2023 Do You Use Any Illicit Or Recreational Drugs? No [email or web address] Information not available 12/18/2023 Do You Use Sunscreen Routinely? Yes [email or web address] Information not available 12/18/2023 Have You Used IV Drugs? No [email or web address] Information not available 12/18/2023 Sex: Unknown Functional Status Question Answer Note LastModified by Organization D etails LastModified Time Are you able to walk? [email or web address] Information not available 12/18/2023 What is your exercise level? None [email or web address] Information not available 12/18/2023 Mental Status None recorded. Family History Relationship Description Onset Age of this Age Resolved Age Notes LastModified by Organization Details LastModified Time Mother Disorder of lung 73 73 [email or web address] Not available 2023 17:38:09 Mother Malignant tumor of lung 73 73 [email or web address] Not available 2023 17:38:09 Mother Disorder of lung Not available 2023 10:30:05 Mother Malignant tumor of lung [email or web address] Not available 2023 10:30:05 Son Depressive disorder 25 [email or web address] Not available 2023 10:30:05 Son Depressive disorder [email or web address] Not available 2023 10:30:05 Daughter Asthma 14 Not availabl e 01/18/2024 10:30:05 Daughter Anxiety disorder 15 Not available 2023 10:30:05 Daughter Depressive disorder 15 [email or web address] Not available 2023 10:30:05 Daughter Substance abuse 16 [email or web address] Not available 2023 10:30:05 Daughter Mental disorder 16 [email or web address] Not available 2023 10:30:05 Daughter Pre-eclampsi a 28 [email or web address] Not available 2023 10:30:05 Daughter Asthma [email or web address] Not availabl e 01/18/2024 10:30:05 Daughter Anxiety disorder Not available 2023 10:30:05 Daughter Depressive disorder Not available 2023 10:30:05 Daughter Pre-eclampsi a Not available 2023 10:30:05 Daughter Substance abuse [email or web address] Not available 2023 10:30:05 Daughter Mental disorder [email or web address] Not available 2023 10:30:05 Sister Anemia 23 [email or web address] Not available 01/18/2024 10:30:05 Sister Osteoporosis 45 [email or web address] Not avai lable 01/18/2024 10:30:05 Sister Diabetes mellitus 45 [email or web address] Not available 2023 10:30:05 Sister Anemia Not available 01/18/2024 10:30:05 Sister Osteoporosis [email or web address] Not avai lable 01/18/2024 10:30:05 Sister Diabetes mellitus [email or web address] Not available 2023 10:30:05 Father Heart disease 59 67 [email or web address] Not available 2023 17:38:10 Father Disorder of lung 67 67 [email or web address] Not available 2023 17:38:10 Father Disorder of lung [email or web address] Not available 2023 10:30:05 Father Heart disease Not available 2023 10:30:05 Medical History No medical history recorded. Gynecological History Statement/Question Response Date of Last Mammogram 11/13/2022 Flow Heavy Date of LMP 06/25/2019 Y Was last menstrual period normal N STIs/STDs Y 11/17/2022 If Post Menopausal, Age at Menopause 57 Date of control 06/23/1994 Date of Last Colonoscopy 11/07/2019 Hysterectomy Desired Control Method Condoms Abnormal Pap Y On BCP's at Conception? Y HPV Vaccine N Duration of Flow (days) 7 Current Control Method Hysterectom y 43 Age at First Child 18 Are cycles usually normal N Frequency of Cycle (Q days) 21 Most Recent Bone Density 06/12/2022 Sexually Active? Y Menses Monthly N Date of DEXA bone scan 06/12/2022 Age of first menstrual cycle 15 Date of Last Pap Smear 06/25/2019 Sexual Problems? Y LMP Approximate 06/23/2018 N 01/24/1990 Obstetrics History GPAL:G 2 P 2 0 0 2 Type Value Full Term 2 Living 2 Total 2 Past Encounters Encounter ID Performer Location Encounter Start Date Encounter Closed Date Diagnosis/Indication Diagnosis SNOMED-CT Code Diagnosis ICD10 Code Diagnosis Note [id number] KELVIN NEWELL MD [facility] [address] [address] 12/18/2023 17:22:32 12/19/2023 03:57:08 Genital herpes simplex 37596832 A60.9 - new exposure per patient- s/p primary outbreak, required hospitaliz ation and catheteriz ation due to pain and difficulty voiding- discussed subsequent outbreaks if any would likely be less severe- currently on daily suppressiv e therapy, ok to continue; also discussed d/c if no outbreaks and treating only symptomati renuka; patient would like to continue daily suppressio n at this time Lichen sim plex chronicus [id number] L28.0 - patient reports thickening of vulvar skin for years, itch-scrat ch cycle- will start clobetasol ointment; rtc 1 month for evaluation Health Concerns Section Related Observation LastModified by Organization Detai ls LastModified Time None Recorded Concern Status LastModified by Organization Details LastModified Time None Recorded Payers Encounter Date Sequence Insurance Name Policy Number Policy Heller Covered Member ID Heller Member ID Guarantor Name 12/18/2023 4 [place] Tk Ruiz [id number] Tiffanie Ruiz 12/18/2023 1 [place] Tiffanie Ruiz [id number] Tiffanie Ruiz Notes Date Note Type Note Provider Name and Address Organization Details Recorded Time 12/18/2023 text/html Patient presents to establish care and to discuss new diagnosis of herpes. She was admitted to the hospital in November for extreme vulvar pain and difficulty urinating. She was diagnosed with primary herpes outbreak and treated with catheter placement and Valtrex. She reports pain has improved and is able to void without issue. She believes she had a recent exposure, no prior known exposures than this. She does report a long time area of thickening on her labia which is worsened by itching. She has not tried any treatments for it. KELVIN NEWELL MD [address], [place], [address], [place] [facility] 12/18/2023 22:44:55 OBGyn Episode No OBEpisode recorded.
--- OUTSIDE RECORDS SUMMARY | 2024-02-17 06:17 | XMS_ITS | Data Portability ---
Author Organization [facility] [employer] Main Office Address [address] [place] [address] Assessment No assessment recorded. Plan of Treatment Reminders Order Date Submit Date Provider Last Modified By Organization Details Last Modified Time Details Appointments None record ed. Lab None record ed. Referral None record ed. Procedures None record ed. Surgeries None record ed. Imaging None record ed. Medication Orders None record ed. Patient TargetsNo targets recorded. Patient InstructionsNo instructions recorded. Reason for Referral None Reported. Results Created Date Observation Date Name Description Value Unit Range Abnormal Flag Note LastModifiedBy Organization Detail LastModifiedTime 09/08/19 22 09/14/2021 HEMOG LOBIN A1C hemoglobin A1C 5.1 %_of_ total _HGB <5.7 normal For the purpo se of gregg sanchez for the prese nce of diabe shahnaz: <5.7% Consi stent with the absen ce of diabe shahnaz 5.7-6 .4% Consi stent with incre ased risk for diabe shahnaz (pred iabet es) > or =6.5% Consi stent with diabe shahnaz This assay resul t is consi stent with a decre ased risk of diabe shahnaz. Curre ntly, no conse nsus exist s eliana khan use of hemog lobin A1c for diagn osis of diabe shahnaz in child nabeel. Accor ding to Ameri can Diabe shahnaz Assoc iatio n (ADA) guide lines , hemog lobin A1c <7.0% repre sents optim al contr ol in non-p regna nt diabe tic patie nts. Diffe rent metri cs may apply to speci fic patie nt popul ation s. [facility] in Diabe shahnaz(A DA). Not Available [address] [address] [place], [address], 09/14/2021 06:00:34 09/08/19 22 09/14/2021 VITAM IN D,25- OH,TO WAYNE,I A vitamin D,25-oh,tota l,ia 46 NG/mL 30-100 normal Vitam in D Statu s 25-OH Vitam in D: Defic iency : <20 ng/mL Insuf ficie ncy: 20 - 29 ng/mL Optim al: > or = 30 ng/mL For 25-OH Vitam in D testi ng on patie nts on D2-gilliam pplem entat ion and patie nts for whom quant itati on of D2 and D3 fract ions is requi red, the [facility] Ass[facility] eD(TM ) 25-OH VIT D, (D2,D 3), LC/MS /MS is recom dani d: order code 25909 (salty ents >2yrs ). See Note 1 Note 1 For addit ional infor axel valderrama refer to http: //lisa Alston stDia gnost ics.c om/fa q/FAQ 199 (This link is being provi ded for infor laith pereyra/ [place] purpo ses only. ) Not Available [facility] [address] [address] [place], [address], 09/14/2021 06:00:33 09/08/19 22 09/14/2021 THYRO ID PANEL WITH TSH T3 uptake 32 % 22-35 normal Not Available [facility] [address] [address] [place], [address], 09/14/2021 06:00:32 09/08/19 22 09/14/2021 THYRO ID PANEL WITH TSH T4 (thyroxine), total 7.4 mcg/d L 5.1-11 .9 normal Not Available [facility] [address] [address] [place], [address], 09/14/2021 06:00:32 09/08/19 22 09/14/2021 THYRO ID PANEL WITH TSH free T4 index (T7) 2.4 1.4-3. 8 normal Not Available [facility] [address] [address] [place], [address], 09/14/2021 06:00:32 09/08/1909/14/2021 THYRO ID PANEL WITH TSH TSH 2.72 mIU/L 0.40-4 .50 normal Not Available [facility] [address], [address], 09/14/2021 06:00:32 09/08/19 22 09/14/2021 INSUL IN insulin 8.6 uIU/m L normal Refer ence Range < or = 19.6 Risk: Optim al < or = 19.6 Moder ate NA High >19.6 Adult cardi ovasc ular event risk categ ory cut point s (opti mal, moder ate, high) are based on [facility] popul ation data from 01/24 11. This insul in assay shows stron g cross -reac tivit y for some insul in analo gs (lisp ro, aspar t, and glarg ine) and much lower cross -reac tivit y with other s (dete kim, gluli sine) . Not Available [facility] [address], [address], 09/14/2021 06:00:31 09/08/1909/14/2021 CORTI JUAN, TOTAL cortisol, total 4.4 mcg/d L normal Refer ence Range : For 8 a.m.( 7-9 a.m.) Speci men: 4.0-2 2.0 Refer ence Range : For 4 p.m.( 3-5 p.m.) Speci men: 3.0-1 7.0 * Pleas e inter pret above resul ts accor dingl y * Not Available [facility] [address] [address] [place], [address], 09/14/2021 06:00:30 09/08/1909/14/2021 THYRO ID PEROX IDASE AND THYRO GLOBU HERO ANTIB ODIES thyroglobuli n antibodies <1 IU/mL < or = 1 normal Not Available [address], [address], 09/14/2021 06:00:29 09/08/19 22 09/14/2021 THYRO ID PEROX IDASE AND THYRO GLOBU HERO ANTIB ODIES thyroid peroxidase antibodies 1 IU/mL <9 normal Not Available [address], [address], 09/14/2021 06:00:29 09/08/19 22 09/14/2021 ACTH, PLASM A acth, plasma <5 pg/mL 6-50 low Refer ence range appli es only to speci mens colle cted betwe en 7am-1 0am. Not Available [address], [address], 09/14/2021 06:00:28 09/08/19 22 09/14/2021 COMPR EHENS KRISTYN METAB OLIC PANEL glucose 81 mg/dL 65-99 normal Fasti ng refer ence inter kathy Not Available [address], [address], 09/14/2021 06:00:27 09/08/19 22 09/14/2021 COMPR EHENS KRISTYN METAB OLIC PANEL urea nitrogen (BUN) 23 mg/dL 7-25 normal Not Available [address], [address], 09/14/2021 06:00:27 09/08/19 22 09/14/2021 COMPR EHENS KRISTYN METAB OLIC PANEL creatinine 0.70 mg/dL 0.50-1 .05 normal Not Available [address], [address], 09/14/2021 06:00:27 09/08/19 22 09/14/2021 COMPR EHENS KRISTYN METAB OLIC PANEL eGFR 98 mL/mi n/1.7 3m2 > or = 60 normal The eGFR is based on the CKD-E PI 2020 equat ion. To calcu late the new eGFR from a previ ous Creat inine or Cysta tin C resul t, go to https ://apryl peace.sahil valentine.o josiah/lola jones s/ kdoqi /gfr% 5Fcal culat or Not Available [address] [place], [address], 09/14/2021 06:00:27 09/08/19 22 09/14/2021 COMPR EHENS KRISTYN METAB OLIC PANEL BUN/creatini ne ratio not applic able (calc ) 6-22 Not Available [address], [address], 09/14/2021 06:00:27 09/08/19 22 09/14/2021 COMPR EHENS KRISTYN METAB OLIC PANEL sodium 141 mmol/ L 135-14 6 normal Not Available [address], [address], 09/14/2021 06:00:27 09/08/19 22 09/14/2021 COMPR EHENS KRISTYN METAB OLIC PANEL potassium 3.7 mmol/ L 3.5-5. 3 normal Not Available [address], [address], 09/14/2021 06:00:27 09/08/19 22 09/14/2021 COMPR EHENS KRISTYN METAB OLIC PANEL chloride 103 mmol/ L 98-110 normal Not Available [facility] [employer] [address], [address], 09/14/2021 06:00:27 09/08/19 22 09/14/2021 COMPR EHENS KRISTYN METAB OLIC PANEL carbon dioxide 33 mmol/ L 20-32 high Not Available [address], [address], 09/14/2021 06:00:27 09/08/19 22 09/14/2021 COMPR EHENS KRISTYN METAB OLIC PANEL calcium 9.2 mg/dL 8.6-10 .4 normal Not Available [address], [address], 09/14/2021 06:00:27 09/08/19 22 09/14/2021 COMPR EHENS KRISTYN METAB OLIC PANEL protein, total 6.0 g/dL 6.1-8. 1 low Not Available [address], [address], 09/14/2021 06:00:27 09/08/19 22 09/14/2021 COMPR EHENS KRISTYN METAB OLIC PANEL albumin 4.1 g/dL 3.6-5. 1 normal Not Available [address], [address], 09/14/2021 06:00:27 09/08/19 22 09/14/2021 COMPR EHENS KRISTYN METAB OLIC PANEL globulin 1.9 g/dL_ (calc ) 1.9-3. 7 normal Not Available [address], [address], 09/14/2021 06:00:27 09/08/19 22 09/14/2021 COMPR EHENS KRISTYN METAB OLIC PANEL albumin/glob ulin ratio 2.2 (calc ) 1.0-2. 5 normal Not Available [address], [address], 09/14/2021 06:00:27 09/08/19 22 09/14/2021 COMPR EHENS KRISTYN METAB OLIC PANEL bilirubin, total 0.6 mg/dL 0.2-1. 2 normal Not Available [address], [address], 09/14/2021 06:00:27 09/08/19 22 09/14/2021 COMPR EHENS KRISTYN METAB OLIC PANEL alkaline phosphatase 87 U/L 37-153 normal Not Available [employer] [address], [address], 09/14/2021 06:00:27 09/08/19 22 09/14/2021 COMPR EHENS KRISTYN METAB OLIC PANEL AST 34 U/L 10-35 normal Not Available [facility] [address], [address], 09/14/2021 06:00:27 09/08/19 22 09/14/2021 COMPR EHENS KRISTYN METAB OLIC PANEL ALT 41 U/L 6-29 high Not Available [address], [address], 09/14/2021 06:00:27 09/08/19 22 09/14/2021 PHOSP HATE ( PHOSP HORUS ) phosphate ( phosphorus) 4.1 mg/dL 2.5-4. 5 normal Not Available [address], [address], 09/14/2021 06:00:26 09/08/1909/14/2021 PTH, INTAC T AND CALCI UM parathyroid hormone, intact 72 pg/mL 16-77 normal Inter preti ve Guide Intac t PTH Calci um ----- ----- ----- --- ----- ----- ----- -- Amanda l Parat hyroi d Amanda l Amanda l Hypop libby yroid ism Low or Low Amanda l Low Hyper parat hyroi dism Prima ry Amanda l or High High Secon chelsie High Amanda l or Low Terti arlene High High Non-P libby yroid Hyper calce usha Low or Low Amanda l High Not Available [facility] [address], [address], 09/14/2021 06:00:24 09/08/1909/14/2021 PTH, INTAC T AND CALCI UM calcium 9.2 mg/dL 8.6-10 .4 normal Not Available [address], [address], 09/14/2021 06:00:24 09/09/19 22 09/16/2021 PANCR EATIC ELAST ASE-1 pancreatic elastase-1 >500 mcg/g Adult and Pedia tric Refer ence Range s for Pancr eatic Elast ase-1 : Amanda l: >200 mcg/g Moder ate Pancr eatic Insuf ficie ncy: 100-2 00 mcg/g Sever e Pancr eatic Insuf ficie ncy: <100 mcg/g Elast ase-1 (E-1) assay resul ts are expre ssed in mcg/g , which repre sent mcg E1/g feces . It is not neces darling to inter rupt enzym e subst ituti on thera py. Not Available [address], [address], 09/17/2021 17:37:45 09/09/19 22 09/16/2021 FECAL FAT, QUALI TATIV E fecal fat, qualitative abnorm al normal abnormal Not Available [address], [address], 09/17/2021 17:37:45 09/09/19 22 09/16/2021 CALCI UM, 24 HOUR URINE (W/ CREAT ININE ) calcium/crea tinine ratio 90 mg/g_ creat 30-275 normal Not Available [address], [address], 09/17/2021 17:37:44 09/09/19 22 09/16/2021 CALCI UM, 24 HOUR URINE (W/ CREAT ININE ) calcium, 24 hour urine 123 mg/24 _h normal Refer ence Range 35-25 0 Low calci um diet 35-20 0 Not Available [address], [address], 09/17/2021 17:37:44 09/09/19 22 09/16/2021 CALCI UM, 24 HOUR URINE (W/ CREAT ININE ) creatinine, 24 hour urine 1.38 g/24_ h 0.50-2 .15 normal Not Available [facility] [address] [place], [address], 09/17/2021 17:37:44 10/08/19 22 10/08/2021 ACTH, PLASM A acth, plasma 21.9 pg/mL 7.2-63 .3 ACTH refer ence inter kathy for sampl es colle cted betwe en 7 and 10 AM. Perfo rmed at: [facility] [address], [place] [address] Lab Direc tor: Dev morel PhD, Phone : [phone] Not Available [facility] (Lab) [address] [place], [address], 10/08/2021 16:09:46 10/08/19 22 10/07/2021 CORTI JUAN, TOTAL , A.M. beverly AM 11.3 ug/dL 4.5-22 .7 Not Available [facility] (Lab) [address] [place], [address], 10/07/2021 13:57:03 12/17/19 22 12/18/2021 CALCI UM, IONIZ ED calcium, ionized 5.1 mg/dL 4.8-5. 6 normal Not Available [facility] [address] [place], [place] [address] [place], [address], 12/18/2021 06:34:00 12/17/19 22 12/18/2021 TSH+F REE T4 TSH 0.95 mIU/L 0.40-4 .50 normal Not Available [facility] [address] [facility] [place], [address], 12/18/2021 06:34:00 12/17/19 22 12/18/2021 TSH+F REE T4 T4, free 1.0 NG/dL 0.8-1. 8 normal Not Available [facility] [address] [address] [place], [address], 12/18/2021 06:34:00 12/17/19 22 12/18/2021 VITAM IN D,25- OH,TO WAYNE,I A vitamin D,25-oh,tota l,ia 37 NG/mL 30-100 normal Vitam in D Statu s 25-OH Vitam in D: Defic iency : <20 ng/mL Insuf ficie ncy: 20 - 29 ng/mL Optim al: > or = 30 ng/mL For 25-OH Vitam in D testi ng on patie nts on D2-gilliam pplem entat ion and patie nts for whom quant itati on of D2 and D3 fract ions is requi red, the [facility] Ass[facility] eD(TM ) 25-OH VIT D, (D2,D 3), LC/MS /MS is recom dani d: order code 77565 (salty ents >2yrs ). See Note 1 Note 1 For addit ional infor axel valderrama e refer to http: //[facility] gui Alston stDia gnost ics.c om/fa q/FAQ 199 (This link is being provi ded for infor laith pereyra/ [place] purpo ses only. ) Not Available [facility] [address] [address] [place], [address], 12/18/2021 06:34:00 12/17/19 22 12/18/2021 T3, FREE T3, free 3.1 pg/mL 2.3-4. 2 normal Not Available [facility] [address] [place], [address], 12/18/2021 06:33:59 12/17/19 22 12/18/2021 COMPR EHENS KRISTYN METAB OLIC PANEL glucose 100 mg/dL 65-99 high Fasti ng refer ence inter kathy For someo ne witho ut known diabe shahnaz, a gluco se value betwe en 100 and 125 mg/dL is consi stent with predi abete s and shoul d be confi rmed with a follo w-up test. Not Available [address] [address] [place], [address], 12/18/2021 06:33:59 12/17/19 22 12/18/2021 COMPR EHENS KRISTYN METAB OLIC PANEL urea nitrogen (BUN) 20 mg/dL 7-25 normal Not Available [address] [address] [place], [address], 12/18/2021 06:33:59 12/17/19 22 12/18/2021 COMPR EHENS KRISTYN METAB OLIC PANEL creatinine 0.73 mg/dL 0.50-1 .05 normal Not Available [address] [address] [place], [address], 12/18/2021 06:33:59 12/17/19 22 12/18/2021 COMPR EHENS KRISTYN METAB OLIC PANEL eGFR 93 mL/mi n/1.7 3m2 > or = 60 normal The eGFR is based on the CKD-E PI 2020 equat ion. To calcu late the new eGFR from a previ ous Creat inine or Cysta tin C resul t, go to https ://apryl valentine.srinivas rahman/lola jones s/ kdoqi /gfr% 5Fcal culat or Not Available [address] [address] [place], [address], 12/18/2021 06:33:59 12/17/19 22 12/18/2021 COMPR EHENS KRISTYN METAB OLIC PANEL BUN/creatini ne ratio not applic able (calc ) 6-22 Not Available [address], [address], 12/18/2021 06:33:59 12/17/19 22 12/18/2021 COMPR EHENS KRISTYN METAB OLIC PANEL sodium 143 mmol/ L 135-14 6 normal Not Available [address], [address], 12/18/2021 06:33:59 12/17/19 22 12/18/2021 COMPR EHENS KRISTYN METAB OLIC PANEL potassium 4.4 mmol/ L 3.5-5. 3 normal Not Available [address], [address], 12/18/2021 06:33:59 12/17/19 22 12/18/2021 COMPR EHENS KRISTYN METAB OLIC PANEL chloride 104 mmol/ L 98-110 normal Not Available [address], [address], 12/18/2021 06:33:59 12/17/19 22 12/18/2021 COMPR EHENS KRISTYN METAB OLIC PANEL carbon dioxide 34 mmol/ L 20-32 high Not Available [address], [address], 12/18/2021 06:33:59 12/17/19 22 12/18/2021 COMPR EHENS KRISTYN METAB OLIC PANEL calcium 9.4 mg/dL 8.6-10 .4 normal Not Available [address], [address], 12/18/2021 06:33:59 12/17/19 22 12/18/2021 COMPR EHENS KRISTYN METAB OLIC PANEL protein, total 6.1 g/dL 6.1-8. 1 normal Not Available [address], [address], 12/18/2021 06:33:59 12/17/19 22 12/18/2021 COMPR EHENS KRISTYN METAB OLIC PANEL albumin 4.2 g/dL 3.6-5. 1 normal Not Available [address], [address], 12/18/2021 06:33:59 12/17/19 22 12/18/2021 COMPR EHENS KRISTYN METAB OLIC PANEL globulin 1.9 g/dL_ (calc ) 1.9-3. 7 normal Not Available [address], [address], 12/18/2021 06:33:59 12/17/19 22 12/18/2021 COMPR EHENS KRISTYN METAB OLIC PANEL albumin/glob ulin ratio 2.2 (calc ) 1.0-2. 5 normal Not Available [address], [address], 12/18/2021 06:33:59 12/17/19 22 12/18/2021 COMPR EHENS KRISTYN METAB OLIC PANEL bilirubin, total 1.0 mg/dL 0.2-1. 2 normal Not Available [address], [address], 12/18/2021 06:33:59 12/17/19 22 12/18/2021 COMPR EHENS KRISTYN METAB OLIC PANEL alkaline phosphatase 84 U/L 37-153 normal Not Available [address], [address], 12/18/2021 06:33:59 12/17/19 22 12/18/2021 COMPR EHENS KRISTYN METAB OLIC PANEL AST 32 U/L 10-35 normal Not Available [address], [address], 12/18/2021 06:33:59 12/17/19 22 12/18/2021 COMPR EHENS KRISTYN METAB OLIC PANEL ALT 37 U/L 6-29 high Not Available [address], [address], 12/18/2021 06:33:59 12/17/19 22 12/18/2021 PHOSP HATE ( PHOSP HORUS ) phosphate ( phosphorus) 4.0 mg/dL 2.5-4. 5 normal Not Available [facility] [address], [address], 12/18/2021 06:33:58 12/17/1912/18/2021 PTH, INTAC T AND CALCI UM parathyroid hormone, intact 68 pg/mL 16-77 normal Inter preti ve Guide Intac t PTH Calci um ----- ----- ----- --- ----- ----- ----- -- Amanda l Parat hyroi d Amanda l Amanda l Hypop libby yroid ism Low or Low Amanda l Low Hyper parat hyroi dism Prima ry Amanda l or High High Secon chelsie High Amanda l or Low Terti arlene High High Non-P libby yroid Hyper calce usha Low or Low Amanda l High Not Available [facility] [employer] [address], [address], 12/18/2021 06:33:58 12/17/1912/18/2021 PTH, INTAC T AND CALCI UM calcium 9.4 mg/dL 8.6-10 .4 normal Not Available [facility] [facility] [address], [address], 12/18/2021 06:33:58 03/03/19 23 03/17/2022 TSH+F REE T4 TSH 1.96 mIU/L 0.40-4 .50 normal Not Available [facility] [address], [address], 03/17/2022 21:44:15 03/03/19 23 03/17/2022 TSH+F REE T4 T4, free 1.0 NG/dL 0.8-1. 8 normal Not Available [facility] [address], [address], 03/17/2022 21:44:15 03/03/19 23 03/17/2022 T3, FREE T3, free 3.5 pg/mL 2.3-4. 2 normal Not Available [facility] [address] , [place], [address], 03/17/2022 21:44:14 03/03/1903/17/2022 THYRO ID PEROX IDASE ANTIB ODIES thyroid peroxidase antibodies 2 IU/mL <9 normal Not Available [facility] [address] [address], [place], [address], 03/17/2022 21:44:14 03/03/19 23 03/17/2022 CHROM OGRAN IN A, LC/MS /MS chromogranin A, lc/MS/MS 211 NG/mL adults : <311 The sampl e type for this test was serum . Inter preta tion of patie nt resul ts may be affec lamont by a varie ty of condi tions such as hyper tensi on, gastr itis, prost ate cance r, hyper parat hyroi dism, and most commo nly renal disea se and use of hema n pump inhib itors (PPIs ). (Christelle Bustamante, et al. Chrom ogran in A measu remen t in metas tatic well- diffe renti ated gastr oente ropan creat ic neuro endoc rine carci noma: scree laura for false posit aliyah and a prosp ectiv e follo w-up study . Int J Biol Markrenato rs. 2010- un;26 (2):9 4-101 .) This test was perfo rmed using a Liqui d Chrom atogr aphy Mass Spect romet ry metho d. Value s obtai erlin from diffe rent assay metho ds canno t be used inter moulton eably . Chrom ogran in A level s, regar dless of value , shoul d not be inter prete d as absol te-moak evide nce of the prese nce or absen ce of disea se. This test was devel oped and its madison tical perfo rmanc e gus cteri stics have been deter mined by [facility] [employer] [employer] [employer] trano . It has not been clear ed or appro otilia by FDA. This assay has been valid ated pursu ant to the CLIA regul ation s and is used for clini fortunato purpo ses. Not Available [facility] [place] [address] [place], [address], 03/17/2022 21:44:13 03/03/19 23 03/17/[address] INTES TINAL POLYP EPTID E(VIP ),MILAGROS SMA vasoactive intestinal polypeptide( vip),plasma 53 pg/mL <78 This test was perfo rmed using a radio immun oassa y metho d. Value s obtai erlin from diffe rent assay metho ds canno t be used inter moulton eably . VIP level s, regar dless of value , shoul d not be inter prete d as absol te-moak evide nce of the prese nce or absen ce of disea se. This test was devel oped and its madison tical perfo rmanc e gus cteri stics have been deter mined by [facility] [employer] tut[facility]ne bueno . It has not been clear ed or appro otilia by FDA. This assay has been valid ated pursu ant to the CLIA regul ation s and is used for clini fortunato purpo ses. Not Available [facility] [place] [address] [place], [address], 03/17/2022 21:44:13 03/03/19 23 03/17/2022 GLUCA SOUMYA glucagon 15 pg/mL 11-78 This test was perfo rmed using the Gluca soumya CATHY metho d stand ardiz ed again st the Inter natio nal refer ence prepa ratio n 69/19 4 and has a new refer ence range . Not Available [facility] [place] [address] [place], [address], 03/17/2022 21:44:12 03/03/19 23 03/17/2022 COMPR EHENS KRISTYN METAB OLIC PANEL glucose 89 mg/dL 65-99 normal Fasti ng refer ence inter kathy Not Available [facility] [place] [address] [place], [address], 03/17/2022 21:44:11 03/03/19 23 03/17/2022 COMPR EHENS KRISTYN METAB OLIC PANEL urea nitrogen (BUN) 22 mg/dL 7-25 normal Not Available [address], [address], 03/17/2022 21:44:11 03/03/19 23 03/17/2022 COMPR EHENS KRISTYN METAB OLIC PANEL creatinine 0.66 mg/dL 0.50-1 .05 normal Not Available [address], [address], 03/17/2022 21:44:11 03/03/19 23 03/17/2022 COMPR EHENS KRISTYN METAB OLIC PANEL eGFR 99 mL/mi n/1.7 3m2 > or = 60 normal The eGFR is based on the CKD-E PI 2020 equat ion. To calcu late the new eGFR from a previ ous Creat inine or Cysta tin C resul t, go to https ://apryl peace.sahil valentine.o josiah/lola jones s/ kdoqi /gfr% 5Fcal culat or Not Available [address], [address], 03/17/2022 21:44:11 03/03/19 23 03/17/2022 COMPR EHENS KRISTYN METAB OLIC PANEL BUN/creatini ne ratio not applic able (calc ) 6-22 Not Available [address], [address], 03/17/2022 21:44:11 03/03/19 23 03/17/2022 COMPR EHENS KRISTYN METAB OLIC PANEL sodium 143 mmol/ L 135-14 6 normal Not Available [address], [address], 03/17/2022 21:44:11 03/03/19 23 03/17/2022 COMPR EHENS KRISTYN METAB OLIC PANEL potassium 4.1 mmol/ L 3.5-5. 3 normal Not Available [address], [address], 03/17/2022 21:44:11 03/03/19 23 03/17/2022 COMPR EHENS KRISTYN METAB OLIC PANEL chloride 107 mmol/ L 98-110 normal Not Available [address], [address], 03/17/2022 21:44:11 03/03/19 23 03/17/2022 COMPR EHENS KRISTYN METAB OLIC PANEL carbon dioxide 33 mmol/ L 20-32 high Not Available [address], [address], 03/17/2022 21:44:11 03/03/19 23 03/17/2022 COMPR EHENS KRISTYN METAB OLIC PANEL calcium 9.5 mg/dL 8.6-10 .4 normal Not Available [address], [address], 03/17/2022 21:44:11 03/03/19 23 03/17/2022 COMPR EHENS KRISTYN METAB OLIC PANEL protein, total 5.8 g/dL 6.1-8. 1 low Not Available [address], [address], 03/17/2022 21:44:11 03/03/19 23 03/17/2022 COMPR EHENS KRISTYN METAB OLIC PANEL albumin 4.0 g/dL 3.6-5. 1 normal Not Available [address], [address], 03/17/2022 21:44:11 03/03/19 23 03/17/2022 COMPR EHENS KRISTNY METAB OLIC PANEL globulin 1.8 g/dL_ (calc ) 1.9-3. 7 low Not Available [address], [address], 03/17/2022 21:44:11 03/03/19 23 03/17/2022 COMPR EHENS KRISTYN METAB OLIC PANEL albumin/glob ulin ratio 2.2 (calc ) 1.0-2. 5 normal Not Available [address], [address], 03/17/2022 21:44:11 03/03/19 23 03/17/2022 COMPR EHENS KRISTYN METAB OLIC PANEL bilirubin, total 0.6 mg/dL 0.2-1. 2 normal Not Available [address], [address], 03/17/2022 21:44:11 03/03/19 23 03/17/2022 COMPR EHENS KRISTYN METAB OLIC PANEL alkaline phosphatase 89 U/L 37-153 normal Not Available [address], [address], 03/17/2022 21:44:11 03/03/19 23 03/17/2022 COMPR EHENS KRISTYN METAB OLIC PANEL AST 28 U/L 10-35 normal Not Available [address], [address], 03/17/2022 21:44:11 03/03/19 23 03/17/2022 COMPR EHENS KRISTYN METAB OLIC PANEL ALT 31 U/L 6-29 high Not Available [address], [address], 03/17/2022 21:44:11 03/13/19 23 03/31/2022 5 HIAA, 24 HOUR URINE , W/O CREAT ININE total volume 2500 mL Not Available [address], [address], 03/31/2022 16:00:55 03/13/19 23 03/31/2022 5 HIAA, 24 HOUR URINE , W/O CREAT ININE 5 hiaa, 24 hour urine 7.1 mg/24 _h < or = 6.0 high This test was devel callumed and its madison tical perfo rmanc e gus cteri stics have been deter mined by [facility] augusto giron Elroy Mallory nithyasrinivas . It has not been clear ed or appro otilia by FDA. This assay has been valid ated pursu ant to the CLIA regul ation s and is used for clini fortunato purpo ses. Not Available [facility] [address] [place], [address], 03/31/2022 16:00:55 06/06/19 23 06/07/2022 COMPR EHENS KRISTYN METAB OLIC PANEL glucose 89 mg/dL 65-99 normal Fasti ng refer ence inter kathy Not Available [facility] [address] [place], [address], 06/07/2022 16:08:33 06/06/19 23 06/07/2022 COMPR EHENS KRISTYN METAB OLIC PANEL urea nitrogen (BUN) 20 mg/dL 7-25 normal Not Available [facility] [address], [address], 06/07/2022 16:08:33 06/06/19 23 06/07/2022 COMPR EHENS KRISTYN METAB OLIC PANEL creatinine 0.78 mg/dL 0.50-1 .05 normal Not Available [facility] [address], [address], 06/07/2022 16:08:33 06/06/19 23 06/07/2022 COMPR EHENS KRISTYN METAB OLIC PANEL eGFR 85 mL/mi n/1.7 3m2 > or = 60 normal The eGFR is based on the CKD-E PI 2020 equat ion. To calcu late the new eGFR from a previ ous Creat inine or Cysta tin C resul t, go to [email or web address] 5Fcal culat or Not Available [address], [address], 06/07/2022 16:08:33 06/06/19 23 06/07/2022 COMPR EHENS KRISTYN METAB OLIC PANEL BUN/creatini ne ratio NOT APPLIC ABLE (calc ) 6-22 Not Available [address], [address], 06/07/2022 16:08:33 06/06/19 23 06/07/2022 COMPR EHENS KRISTYN METAB OLIC PANEL sodium 141 mmol/ L 135-14 6 normal Not Available [address], [address], 06/07/2022 16:08:33 06/06/19 23 06/07/2022 COMPR EHENS KRISTYN METAB OLIC PANEL potassium 3.7 mmol/ L 3.5-5. 3 normal Not Available [address], [address], 06/07/2022 16:08:33 06/06/19 23 06/07/2022 COMPR EHENS KRISTYN METAB OLIC PANEL chloride 102 mmol/ L 98-110 normal Not Available [address], [address], 06/07/2022 16:08:33 06/06/19 23 06/07/2022 COMPR EHENS KRISTYN METAB OLIC PANEL carbon dioxide 33 mmol/ L 20-32 high Not Available [address], [address], 06/07/2022 16:08:33 06/06/19 23 06/07/2022 COMPR EHENS KRISTYN METAB OLIC PANEL calcium 9.2 mg/dL 8.6-10 .4 normal Not Available [address], [address], 06/07/2022 16:08:33 06/06/19 23 06/07/2022 COMPR EHENS KRISTYN METAB OLIC PANEL protein, total 6.1 g/dL 6.1-8. 1 normal Not Available [address], [address], 06/07/2022 16:08:33 06/06/19 23 06/07/2022 COMPR EHENS KRISTYN METAB OLIC PANEL albumin 4.1 g/dL 3.6-5. 1 normal Not Available [address], [address], 06/07/2022 16:08:33 06/06/19 23 06/07/2022 COMPR EHENS KRISTYN METAB OLIC PANEL globulin 2.0 g/dL_ (calc ) 1.9-3. 7 normal Not Available [address], [address], 06/07/2022 16:08:33 06/06/19 23 06/07/2022 COMPR EHENS KRISTYN METAB OLIC PANEL albumin/glob ulin ratio 2.1 (calc ) 1.0-2. 5 normal Not Available [address], [address], 06/07/2022 16:08:33 06/06/19 23 06/07/2022 COMPR EHENS KRISTYN METAB OLIC PANEL bilirubin, total 0.8 mg/dL 0.2-1. 2 normal Not Available [address], [address], 06/07/2022 16:08:33 06/06/19 23 06/07/2022 COMPR EHENS KRISTYN METAB OLIC PANEL alkaline phosphatase 77 U/L 37-153 normal Not Available [facility] [employer] [address], [address], 06/07/2022 16:08:33 06/06/19 23 06/07/2022 COMPR EHENS KRISTYN METAB OLIC PANEL AST 23 U/L 10-35 normal Not Available [facility] [address], [address], 06/07/2022 16:08:33 06/06/19 23 06/07/2022 COMPR EHENS KRISTYN METAB OLIC PANEL ALT 27 U/L 6-29 normal Not Available [facility] [address], [address], 06/07/2022 16:08:33 06/06/19 23 06/07/2022 THYRO ID PEROX IDASE ANTIB ODIES thyroid peroxidase antibodies 1 IU/mL <9 normal Not Available [employer] [address], [address], 06/07/2022 16:08:34 06/06/1906/07/2022 INSUL IN insulin 9.7 uIU/m L normal Refer ence Range < or = 18.4 Risk: Optim al < or = 18.4 Moder ate NA High >18.4 Adult cardi ovasc ular event risk categ ory cut point s (opti mal, moder ate, high) are based on Insul in Refer ence Inter kathy studi es perfo rmed at [facility]stic s in 2021. Not Available [employer] [address], [address], 06/07/2022 16:08:35 06/06/19 23 06/07/2022 T3, FREE T3, free 3.0 pg/mL 2.3-4. 2 normal Not Available [employer] [address], [address], 06/07/2022 16:08:36 06/06/19 23 06/07/2022 TSH+F REE T4 TSH 1.18 mIU/L 0.40-4 .50 normal Not Available [facility] [address], [address], 06/07/2022 16:08:36 06/06/19 23 06/07/2022 TSH+F REE T4 T4, free 1.1 NG/dL 0.8-1. 8 normal Not Available [facility] [facility] [address] [place], [address], 06/07/2022 16:08:36 06/06/19 23 06/07/2022 HEMOG LOBIN A1C hemoglobin A1C 5.0 %_of_ total _HGB <5.7 normal For the purpo se of gregg sanchez for the prese nce of diabe shahnaz: <5.7% Consi stent with the absen ce of diabe shahnaz 5.7-6 .4% Consi stent with incre ased risk for diabe shahnaz (pred iabet es) > or =6.5% Consi stent with diabe shahnaz This assay resul t is consi stent with a decre ased risk of diabe shahnaz. Curre ntly, no conse nsus exist s eliana khan use of hemog lobin A1c for diagn osis of diabe shahnaz in child nabeel. Accor ding to Ameri can Diabe shahnaz Assoc iatio n (ADA) guide lines , hemog lobin A1c <7.0% repre sents optim al contr ol in non-p regna nt diabe tic patie nts. Diffe rent metri cs may apply to speci fic patie nt popul ation s. [facility] of Medic al Care in Diabe shahnaz(A DA). Not Available [employer] [facility] [facility] [address], [place], [address], 06/07/2022 16:08:37 09/09/19 22 09/08/2021 US, thyro id No observ ation record ed. [id number] [facility] [address] [place], [address], 04/06/2022 01:35:44 09/09/19 22 09/08/2021 bone densi ty No observ ation record ed. [id number] [facility] [address] [place], [address], 04/06/2022 01:35:44 09/09/19 22 DEXA, axial skele ton [facility] [address] [facility] [place] [address] Consuelo angelo Name: PETE LLANOS Renato A Access ion #: [id number] Sex: F : 1959 6 7 Locati on: RA2 Attend ing Physic thong: KEESHA ARAGON Orderi Physic thong: KEESHA RAAGON Exam Date: 09/09/19 11:07 AM Exam Name: XR DEXA AXIAL/ HIP/PE LVIS/S PINE Admitt ing Diagno sis(es ): RADIOL OGY REPORT - FINAL EXAM: XR DEXA AXIAL/ HIP/PE LVIS/S PINE HISTOR Y: menopa use 61-yea r-old female with osteop orosis screen ing. COMPAR ANNEMARIE: None availa ble. TECHNI QUE: Dual energy x-ray of absorp tion examin ation of the bilate ral hips, left forear m, and lumbar spine in AP projec tion was perfor med. FINDIN GS: Lumbar Spine (L1-L4 ): The mean bone minera l densit y is 1.261 g/cm2 hydrox yapati te, correl ating with a T-scor e of 0.5. Bilate ral hips: The mean bone minera l densit y is 1.025 g/cm2 calciu m hydrox yapati te, correl ating with a T-scor e of 0.1. Page 1 of 2 [facility] Consuelo angelo Name: PETE LALNOS Renato A Access ion #: [id number] Sex: F : 1959 6 7 Exam Date: 09/09/19 11:07 AM Exam Name: XR DEXA AXIAL/ HIP/PE LVIS/S PINE Admitt ing Diagno sis(es ): Left forear m: The radial shaft bone minera l densit y is 0.639 g/cm2 calciu m hydrox yapati te, correl ating with a T-scor e of -2.7. IMPRES JIMENA: 1. The patien t's lumbar spine T-scor e is consis tent with normal bone minera l densit y. 2. The patien t's bilate ral hip T-scor e is consis tent with normal bone minera l densit y. 3. The patien t has left radial shaft bone densit y is consis tent with osteop orosis . Accord ing to the World Health Organi zation , T-scor e values greate r than -1.0 are normal , values betwee n -1.0 and -2.5 are catego rized as osteop enia, T-scor e of -2.5 or more are catego rized as osteop orosis . Create d and electr onical ly signed by: Judah gross MD Signed Date: 09/09/19 11:45 AM (CT) Dictat ed by: Judah gross MD (CT) (CT) Page 2 of 2 [id number] [facility] ([facility]) [address] [place], [address], 04/06/2022 01:35:44 09/09/19 US, head + neck, soft tissu e [facility] [address] [place] [address] Consuelo angelo Name: PETE LLANOS A Access ion #: [id number] Sex: F : 1959 6 7 Locati on: RA2 Attend ing Physic thong: KEESHA ARAGON Orderi Physic thong: KEESHA ARAGON Exam Date: 09/09/19 11:07 AM Exam Name: US NECK/H EAD SOFT TISSUE Admitt ing Diagno sis(es ): RADIOL OGY REPORT - FINAL EXAM: US NECK/H EAD SOFT TISSUE HISTOR Y: nontox ic single thyroi d nodule 61-yea r-old female with thyroi d nodule s. COMPAR ANNEMARIE: None availa ble. TECHNI QUE: Ultras ound examin ation of the thyroi d was perfor med. FINDIN GS: The right lobe of the thyroi d measur es 4.1 x 2.7 x 2.4 cm. The left lobe of the thyroi d measur es 3.7 x 1.5 x 1.2 cm. The thyroi d isthmu s measur es 4.1 mm AP. There are multip le isoech oic solid nodule s in both lobes of the thyroi d, the larges t of which is in the right lobe and measur es up to 2.[address] dimens ion.. No suspic ious calcif icatio ns or abnorm al color Dopple r blood flow. Page 1 of 2 [facility] t Name: PETE LLANOS A Access ion #: [id number] Sex: F : 1959 6 7 Exam Date: 09/09/19 11:07 AM Exam Name: US NECK/H EAD SOFT TISSUE Admitt ing Diagno sis(es ): IMPRES JIMENA: Multin odular thyroi d with multip le isoech oic solid nodule s in both lobes of the thyroi d which are TI-RAD S 3 lesion s. Ultras ound-g uided FNA of the domina nt nodule in the right lobe is recomm ended as this lesion measur es greate r than 2.5 cm. Create d and electr onical ly signed by: Judha gross MD Signed Date: 09/09/19 12:04 PM (CT) Dictat ed by: Judah gross MD (CT) (CT) Page 2 of 2 [id number] [facility] ([facility]) [address] [place], [address], 04/06/2022 01:35:44 03/31/19 23 03/31/2022 PET-C T, whole body scan No observ ation record ed. [id number] [facility] [address] [place], [address], 04/06/2022 01:35:44 Result Notes None recorded. Problems Name Problem SNOMED Code Status Onset Date Resolution Date Notes Provider Name and Address Organization Details Recorded Time Hypoglycemia 329982652 Active 2021 Not Available [facility] 3 01:34:43 Abnormal cortisol 358005448 Active 2021 Not Available [facility] 3 01:34:43 Hypothyroidis m 44373183 Active 2021 Not Available [facility] 3 01:34:43 Hyperparathyr oidism 13647656 Active 2021 Not Available [facility] 3 01:34:43 Reactive hypoglycemia 747466 Active 2022 MICHELLE Marino null, [facility] 3 10:41:38 Postmenopausa l osteoporosis 014248522 Active 2022 Kayla Alvarado RMA null, [facility] 3 12:05:10 Problem Notes None recorded. Procedures Surgical History Date Name Laterality Status Provider Name and Address Organization Details Recorded Time repair of urinary bladder completed Not Available [facility] 04/06/2022 01:34:04 Neck completed Not Available [facility] 04/06/2022 01:34:04 dinitrochlorobenzene contact sensitivity test completed Not Available [facility] 04/06/2022 01:34:04 Kidney Stones completed Not Available [facility] 04/06/2022 01:34:04 Hysterectomy completed Not Available [facility] 04/06/2022 01:34:04 Gastric bypass for obesity completed Not Available [facility] 04/06/2022 01:34:04 Carpal tunnel surgery completed Not Available [facility] 04/06/2022 01:34:04 Imaging Results Imaging Date Name Status LastModified by Organiz ation Details LastModified Time 03/31/2022 PET-CT, whole body scan completed [id number] [facility] [address], [address], 04/06/2022 01:35:44 09/08/2021 US, thyroid completed [id number] [facility] [address] [place], [address], 04/06/2022 01:35:44 09/08/2021 bone density completed [id number] 026 [facility] [address] [place], [address], 04/06/2022 01:35:44 09/08/2021 DEXA, axial skeleton completed [id number] [facility] ([facility]) [address] [place], [address], 04/06/2022 01:35:44 09/08/2021 US, head + neck, soft tissue completed [id number] [facility] ([facility]) [address] [place], [address], 04/06/2022 01:35:44 Procedure Notes None recorded. Medical Equipment None Reported. Allergies Allergen ID Allergen Name Allergen Category Reaction Reaction Severity Criticality Documentation Date Start Date Code Code System Note Provider Name and Address Organization Details Recorded Time 21144 Levaquin medicatio n Not available Not available Not available 04/06/2022 74881 2 RxNorm Not Available [facility] 3 01:35:37 12232 Demerol medicatio n Not available Not available Not available 04/06/2022 17377 1 RxNorm Not Available [facility] 3 01:35:37 46715 codeine medicatio n Not available Not available Not available 04/06/2022 2670 RxNorm Not Available [facility] 3 01:35:37 Medications Name Sig Start Date Stop Date Status Note LastModified by Organization Details LastModified Time flowflex kit test active Not Available Not Available Not Available cyclobenzap rine 10 mg tablet TAKE 1 TABLET BY MOUTH TWICE DAILY NEEDED FOR MUSCLE SPASM active Not Available Not Available No t Available prednisone 10 mg tablet TAKE 6 TABLETS BY MOUTH DAILY ON DAY 1, 5 TABLETS DAILY ON DAY 2, 4 TABLETS DAILY ON DAY 3, 3 TABLETS DAILY ON DAY 4, 2 TABLETS DAILY ON DAY 5, AND 1 TABLET DAILY ON DAY 6 active Not Available Not Available No t Available zinc 30 mg tablet Take by oral route. 2021 active Not Available Not Available Not Avai lable azithromyci n 250 mg tablet TAKE 2 TABLETS BY MOUTH ON DAY 1, AND THEN TAKE 1 TABLET BY MOUTH ONCE A DAY ON DAY 2 THROUGH DAY 5 active Not Available Not Available No t Available tizanidine 4 mg tablet TAKE 1 TABLET BY MOUTH EVERY 6 HOURS NEEDED FOR SPASM active Not Available Not Available No t Available fluconazole 150 mg tablet TAKE 1 TABLET BY MOUTH ONCE DAILY active Not Available Not Available No t Available hydrocodone 5 mg-acetamin ophen 325 mg tablet TAKE 1 TO 2 TABLETS BY MOUTH EVERY 6 HOURS NEEDED active Not Available Not Available No t Available potassium chloride ER 10 mEq tablet,exte nded release TAKE 1 TABLET BY MOUTH ONCE DAILY (DO NOT CRUSH OR CHEW) 09/02 completed Not Available Not Available Not Available sulfamethox azole 800 mg-trimetho prim 160 mg tablet TAKE 1 TABLET BY MOUTH TWICE DAILY active Not Available Not Available No t Available hydrocodone 10 mg-acetamin ophen 325 mg tablet TAKE 1 TABLET BY MOUTH TWICE DAILY NEEDED FOR PAIN active Not Available Not Available No t Available diazoxide 50 mg/mL oral suspension Take 230 mg 3 times a day by oral route before meals for 90 days. 07/31 completed Not Available Not Available Not Available ondansetron 8 mg disintegrat ing tablet DISSOLVE 1 TABLET IN MOUTH EVERY 8 HOURS NEEDED FOR NAUSEA active Not Available Not Available No t Available levothyroxi ne 88 mcg tablet TAKE 1 TABLET BY MOUTH ONCE DAILY active Not Available Not Available No t Available pravastatin 80 mg tablet TAKE 1 TABLET BY MOUTH ONCE DAILY active Not Available Not Available No t Available tamsulosin 0.4 mg capsule TAKE 1 CAPSULE BY MOUTH ONCE DAILY 09/02 completed Not Available Not Available Not Available cephalexin 500 mg capsule TAKE 1 CAPSULE BY MOUTH EVERY 8 HOURS active Not Available Not Available No t Available cyanocobala min (vit B-12) 1,000 mcg/mL injection solution active Not Available Not Available Not Available oseltamivir 75 mg capsule TAKE 1 CAPSULE BY MOUTH TWICE DAILY FOR 3 DAYS (DISCARD REMAINDER ) 09/02 completed Not Available Not Available Not Available buspirone 30 mg tablet TAKE 1 TABLET BY MOUTH TWICE DAILY active Not Available Not Available No t Available omeprazole 20 mg capsule,del ayed release TAKE 1 CAPSULE BY MOUTH ONCE DAILY BEFORE BREAKFAST 02/27 completed Not Available Not Available Not Available nystatin 100,000 unit/gram topical powder APPLY TOPICALLY TO AFFECTED AREA TWICE DAILY active Not Available Not Available No t Available ibuprofen 600 mg tablet TAKE 1 TABLET BY MOUTH EVERY 6 HOURS NEEDED FOR PAIN active Not Available Not Available No t Available estradiol 0.01% (0.1 mg/gram) vaginal cream INSERT 1 GRAM INTO VAGINA ONCE DAILY FOR 4 DAYS THEN TWICE WEEKLY THEREAFTE R active Not Available Not Available No t Available methylpredn isolone 4 mg tablets in a dose pack USE DIRECTED active Not Available Not Available No t Available albuterol sulfate HFA 90 mcg/actuati on aerosol inhaler INHALE 2 PUFFS BY MOUTH 4 TIMES DAILY NEEDED FOR SHORTNESS OF BREATH OR WHEEZING active Not Available Not Available No t Available cefdinir 300 mg capsule TAKE 1 CAPSULE BY MOUTH EVERY 12 HOURS 07/31 completed Not Available Not Available Not Available metformin ER 500 mg tablet,exte nded release 24 hr Take 1 tablet every day by oral route in the morning for 90 days. active Not Available Not Available No t Available ipratropium bromide 21 mcg (0.03 %) nasal spray USE 2 SPRAY(S) IN EACH NOSTRIL TWICE DAILY active Not Available Not Available No t Available amoxicillin 875 mg-potassiu m clavulanate 125 mg tablet 09/02 completed Not Available Not Available Not Available acarbose 25 mg tablet TAKE 1 TABLET BY MOUTH THREE TIMES DAILY WITH MEALS active Not Available Not Available No t Available bupropion HCl XL 300 mg 24 hr tablet, extended release TAKE 1 TABLET BY MOUTH ONCE DAILY IN THE MORNING active Not Available Not Available No t Available bupropion HCl XL 150 mg 24 hr tablet, extended release TAKE 1 TABLET BY MOUTH ONCE DAILY 09/02 completed Not Available Not Available Not Available nitrofurant oin monohydrate /macrocryst als 100 mg capsule TAKE 1 CAPSULE BY MOUTH TWICE DAILY 09/02 completed Not Available Not Available Not Available duloxetine 30 mg capsule,del ayed release TAKE 1 CAPSULE BY MOUTH ONCE DAILY active Not Available Not Available No t Available duloxetine 60 mg capsule,del ayed release TAKE 1 CAPSULE BY MOUTH ONCE DAILY active Not Available Not Available No t Available eszopiclone 3 mg tablet TAKE 1 TABLET BY MOUTH ONCE DAILY IMMEDIATE LY BEFORE BEDTIME active Not Available Not Available No t Available hydrochloro thiazide 12.5 mg tablet TAKE 1 TABLET BY MOUTH ONCE DAILY active Not Available Not Available No t Available Prolia 60 mg/mL subcutaneou s syringe inject 60 mg SQ once every 6 months 2022 active Not Available Not Available Not Ivana mccoy Creon 36,000 unit-114,00 0 unit-180,00 0 unit capsule,del ayed release Take 1 capsule 3 times a day by oral route with meals for 90 days. 07/31 completed Not Available Not Available Not Available Belsomra 20 mg tablet TAKE 1 TABLET BY MOUTH NIGHTLY active Not Available Not Available No t Available Zenpep 40,000 unit-126,00 0 unit-168,00 0 unit capsule,del ayed release Take by oral route for 33 days. 07/31 completed Not Available Not Available Not Available Dexcom G6 Sensor device active Not Available Not Available Not Available Dexcom G6 Transmitter device 2022 active Not Available Not Available Not Ivana mccoy Glucagon (HCl) Emergency Kit 1 mg solution for injection INJECT 1 MG BY INTRAMUSC ULAR INJECTION ONE TIME ONLY FOR 1 DOSE active Not Available Not Available No t Available Gvoke HypoPen 1-Pack 1 mg/0.2 mL subcutaneou s auto-inject or INJECT DIRECTED IF SUGAR IS LESS THAN 50 active Not Available Not Available No t Available FreeStyle Edyta 2 Sensor kit USE DIRECTED CHANGE EVERY 14 DAYS active Not Available Not Available No t Available aspirin 81 mg capsule Take 1 capsule every day by oral route. 2021 active Not Available Not Available Not Ivana mccoy Flowflex COVID-19 Antigen Home Test kit use as directed on package FOR AT home CoVID testing NEEDED active Not Available Not Available No t Available Vitals Date Recorded Body mass index (BMI) Body height Oxygen saturation Oxygen saturation in Arterial blood by Pulse oximetry Heart rate Body temperature Body weight Systolic blood pressure Diastolic blood pressure Provider Name and Address Organization Details Last Updated DateTime 2 32.9 kg/m2 160.02 cm 98 % 98 % 66 /min 97.7 [degF] 64134.4 6 g 120 mm[Hg] 75 mm[Hg] Not Available [facility] 3 01:34:09 Date Recorded Body mass index (BMI) Body height Oxygen saturation Oxygen saturation in Arterial blood by Pulse oximetry Heart rate Body temperature Body weight Systolic blood pressure Diastolic blood pressure Provider Name and Address Organization Details Last Updated DateTime 2 32.8 kg/m2 160.02 cm 99 % 99 % 65 /min 97.8 [degF] 51983.5 9 g 105 mm[Hg] 70 mm[Hg] Not Available [facility] 3 01:34:09 Date Recorded Body mass index (BMI) Body height Oxygen saturation Oxygen saturation in Arterial blood by Pulse oximetry Heart rate Respiratory rate Body temperature Body weight Systolic blood pressure Diastolic blood pressure Provider Name and Address Organization Details Last Updated DateTime 3 33.9 kg/m2 160.02 cm 98 % 98 % 69 /min 12 /min 97.5 [degF] 63801.8 6 g 132 mm[Hg] 78 mm[Hg] Not Available [facility] 3 01:34:09 Date Recorded Body height Body mass index (BMI) Body weight Body temperature Heart rate Systolic blood pressure Diastolic blood pressure Provider Name and Address Organization Details Last Updated DateTime 3 160.02 cm 34 kg/m2 75771.7 4 g 97.6 [degF] 68 /min 149 mm[Hg] 67 mm[Hg] Sujatha Hughes CMA [place] - [facility] [employer] [facility] 3 12:00:46 Social History Question Answer Notes LastModified by [employer] Details LastModified Time Tobacco Smoking Status Never Smoker Not Available [facility] 04/06/2022 01:33:24 What Is Your Level Of Alcohol Consumption? None [id number] Information not available 04/06/2022 What Is Your Level Of Caffeine Consumption? None [id number] Information not available 04/06/2022 What Type Of Diet Are You Following? REGULAR [id number] Information not available 04/06/2022 What Is Your Relationship Status? [id number] Information not available 04/06/2022 Sex: Female Functional Status Question Answer Note LastModified by [employer] Details LastModified Time What is your exercise level? Occasional [id number] Information not available 04/06/2022 Mental Status None recorded. Family History Relationship Description Onset Age of this Age Resolved Age Notes LastModified by Organization Details LastModified Time Sister Diabetes mellitus [id number] Not available 04/06/2022 01:34:05 Medical History Condition Response LUNG DISEASE/DISORDER Y SURGERY STROKE/TIA Y EXCESSIVE PERSPIRATION Y GERD/NAUSEA Y LIVER DISEASE HYPERTENSION Y HIGH CHOLESTEROL / HYPERLIPIDEMIA Y EYE PROBLEMS Y HAVE YOU BEEN HOSPITALIZED OR SEEN IN [facility] ER IN THE PAST YEAR ? Y ARTHRITIS ALZHEIMER'S DISEASE Y HEADACHES/MIGRAINES Y DIZZINESS Y KIDNEY DISEASE Gynecological HistoryNo gynecological history recorded. Obstetrics History GPAL:G 0 P 0 0 0 0 Past Encounters Encounter ID Performer Location Encounter Start Date Encounter Closed Date Diagnosis/Indication Diagnosis SNOMED-CT Code Diagnosis ICD10 Code Diagnosis Note [id number] [facility] [address] [place] [address] 09/02/2021 00:00:00 09/02/2021 12:15:50 [id number] [facility] [address] [place] [address] 10/14/2021 00:00:00 10/14/2021 21:36:04 [id number] [facility] [address] [place] [address] 02/27/2022 00:00:00 02/27/2022 12:47:24 [id number] Keesha Aragon MD [facility] [address] [place] [address] 07/31/2022 11:14:26 07/31/2022 12:37:01 Reactive hypoglycemia 369495 E16.1 Patient now taking acarbose per [facility] endocrinol ogy and her hypoglycem ia appears to be much improved. She has follow up next week. This is secondary to her gastric bypass surgery and significan t dumping. Cortrosyn stimulatio n testing completed on 10/28/21 which was normal stimulated from 6 up to 26 ug/dL at one hour tita. She needs a glucose monitor/se nsor to prevent significan t lows as she drops as low as 40 mg/dL following some meals previously and patient does best if she has awareness to avoid further lows so two sensors provided in clinic today and patient give script to continue sensor therapy. She was encouraged to add protein with her coffee along with a dairy or fruit for a total intake of 15-20 grams of carbs. She was advised to eat 5 to 6 small meals a day consisting of adequate protein and nonstarchy carbs and to attempt to avoid simple sugars such as sweet beverages, candies, pastries and try to take in low fat dairy, beans, nuts, meats and greens. Will also send in ACTH and cortisol just to screen for adrenal insufficie ncy. Continue LT4 88 mcg daily and prolia injections for osteoporos is-patient aware she can follow her PCP for management of thyroid and osteoporos is or with [facility] endocrinol ogy as they have direct access to her bariatric surgery if she should relapse into hypoglycem ia with acarbose -she understand s and agrees following one endocrinol ogist to manage her endocrine needs would be most ideal in her care. Spent up to 25 minutes preparing to see the patient (eg, review of tests), obtaining and/or reviewing separately obtained history, performing a medically appropriat e examinatio n and evaluation , counseling and educating the patient, ordering medication s, tests, along with documentin g clinical informatio n in the electronic health record, independen tly interpreti ng results and communicat ing results to the patient. RTC as needed. Health Concerns Section Related Observation LastModified by Organization Detai ls LastModified Time None Recorded Concern Status LastModified by Organization Details LastModified Time None Recorded Advance Directives Directive None Recorded Payers Encounter Date Sequence Insurance Name Policy Number Policy Heller Covered Member ID Heller Member ID Guarantor Name 07/31/2022 1 [place] Tiffanie Ruiz [id number] Tiffanie Ruiz 07/31/2022 2 [place] [id number] Tk Ruiz [id number] Tiffanie Ruiz Notes Date Note Type Note Provider Name and Address Organization Details Recorded Time 07/31/2022 text/html 62 yo female com es in for follow up in management of reactive hypoglycemia/following gastric bypass surgery, hypothyroidism, high CO2/sleep apnea, postmenopausal osteoporosis. at her last visit February we had discussed her cortrosyn stimulation testing completed on 10/28/21 which was normal stimulated from 6 up to 26 ug/dL at one hour tita. We send for glucose monitor/sensor to prevent significant lows as she drops as low as 40 mg/dL following some meals with no rhyme or reason- we started zenpep for EPI along with diazoxide for refractory hypoglycemia with no true cause. We continued LT4 88 mcg daily. we sent for PET scan done in 03/30 and this was essentially negative for dotatate avid neopplasm.5HIAA was not significantly elevated to suggest carcinoid tumor. Chromogranin not elevated and VIP/glucagon in range. We referred to [facility] for further insight. she is taking acarbose 25 mg three times daily with meals. She saw her surgeon and if worse she can get injections into her stoma. Sent for cotrosyn stimulation testingcompleted on 10/28:6.9 ug/dL up to 16 ug/dL up to 26 ug/dL so normal testbone density from 09/08/21:patient has normal T score of hip and LST score of -2.7 of forearm labs from 06/05/22:a1c 5%TSH of 1.18 uIU/mlFT4 of 1.1 ng/dLFT3 of 3.0 pg/MLinsulin 9.7 uU/mlTPO 1 IU/mlglucose 89 mg/dLCr normalLFT normal Keesha Aragon MD [address] [facility], [address], [place], [address], [place] [facility] 07/31/2022 15:32:40 OBGyn Episode No OBEpisode recorded.
--- OUTSIDE RECORDS SUMMARY | 2024-02-17 06:17 | XMS_ITS | Data Portability ---
Author Organization [facility] [place] Address [address] [place] [address] Assessment No assessment recorded. Plan of Treatment Reminders Order Date Submit Date Provider Last Modified By Organization Details Last Modified Time Details Appointments [facility] 2024 10:00A Naomi NEWELL MD Not available Not available Not available Lab testoster one, total, serum 2023 [facility] (Lab), [address] [place], [address], 01/24/2024 22:07:50 testoster one, free, serum 2023 024 [facility] (Lab), [address] [facility], [place], [address], 01/24/2024 22:07:50 CMP, serum or plasma 2023 024 [facility] (Lab), [address] [facility], [place], [address], 01/24/2024 22:07:49 Referral None recorded. Procedures None recorded. Surgeries None recorded. Imaging None recorded. Medication Orders clobetaso l 0.05 % topical ointment [email or web address] [place] [address] Pharm[address] 10[facility], [address] [facility], [place], [address], 12/19/2023 12:05:26 estradiol 0.01% (0.1 mg/gram) vaginal cream 2023 024 [facility], [address] [place], [address], 01/18/2024 16:24:04 Patient TargetsNo targets recorded. Patient InstructionsNo instructions recorded. Reason for Referral None Reported. Results Created Date Observation Date Name Description Value Unit Range Abnormal Flag Note LastModifiedBy Organization Detail LastModifiedTime 01/18/20 24 01/18/2024 CMP(C OMPRE HENSI VE METAB OLIC PANEL ) sodium 141 mmol/ L 133-14 6 Not Available [facility] (Lab) [address] [facility], [place], [address], 01/24/2024 22:07:49 01/18/20 24 01/18/2024 CMP(C OMPRE HENSI VE METAB OLIC PANEL ) potassium 4.1 mmol/ L 3.5-5. 1 Not Available [facility] (Lab) [address] [place], [address], 01/24/2024 22:07:49 01/18/20 24 01/18/2024 CMP(C OMPRE HENSI VE METAB OLIC PANEL ) chloride 105 mmol/ L 98-107 Not Available [facility] (Lab) [address] [place], [address], 01/24/2024 22:07:49 01/18/20 24 01/18/2024 CMP(C OMPRE HENSI VE METAB OLIC PANEL ) carbon dioxide 30 mmol/ L 21-31 Not Available [facility] (Lab) [address] [place], [address], 01/24/2024 22:07:49 01/18/20 24 01/18/2024 CMP(C OMPRE HENSI VE METAB OLIC PANEL ) anion gap 6 mmol/ L 4-13 Not Available [facility] (Lab) [address] [place], [address], 01/24/2024 22:07:49 01/18/20 24 01/18/2024 CMP(C OMPRE HENSI VE METAB OLIC PANEL ) blood urea nitrogen 23 mg/dL 7-25 Not Available [facility] (Lab) [address] [facility], [place], [address], 01/24/2024 22:07:49 01/18/20 24 01/18/2024 CMP(C OMPRE HENSI VE METAB OLIC PANEL ) creatinine 0.69 mg/dL 0.60-1 .30 Not Available [facility] (Lab) [address] [facility], [place], [address], 01/24/2024 22:07:49 01/18/20 24 01/18/2024 CMP(C OMPRE HENSI VE METAB OLIC PANEL ) egfrcr (CKD-epi 2020) >90 mL/mi n/1.7 3_m2 >=60 Not Available [facility] (Lab) [address] [facility], [place], [address], 01/24/2024 22:07:49 01/18/20 24 01/18/2024 CMP(C OMPRE HENSI VE METAB OLIC PANEL ) calcium 9.3 mg/dL 8.3-10 .5 Not Available [facility] (Lab) [address] [facility], [place], [address], 01/24/2024 22:07:49 01/18/20 24 01/18/2024 CMP(C OMPRE HENSI VE METAB OLIC PANEL ) glucose 81 mg/dL 70-100 Not Available [facility] (Lab) [address] [facility], [place], [address], 01/24/2024 22:07:49 01/18/20 24 01/18/2024 CMP(C OMPRE HENSI VE METAB OLIC PANEL ) protein, total 6.7 g/dL 6.4-8. 3 Not Available [facility] (Lab) [address] [facility], [place], [address], 01/24/2024 22:07:49 01/18/20 24 01/18/2024 CMP(C OMPRE HENSI VE METAB OLIC PANEL ) albumin 4.5 g/dL 3.5-5. 0 Not Available [facility] (Lab) [address] [facility], [place], [address], 01/24/2024 22:07:49 01/18/20 24 01/18/2024 CMP(C OMPRE HENSI VE METAB OLIC PANEL ) ALT 54 units /L 9-43 high Not Available [facility] (Lab) [address] [facility], [place], [address], 01/24/2024 22:07:49 01/18/20 24 01/18/2024 CMP(C OMPRE HENSI VE METAB OLIC PANEL ) alkaline phosphatase 64 units /L 34-104 Not Available [facility] (Lab) [address] [facility], [place], [address], 01/24/2024 22:07:49 01/18/20 24 01/18/2024 CMP(C OMPRE HENSI VE METAB OLIC PANEL ) AST 42 units /L 13-39 high Not Available [facility] (Lab) [address] [facility], [place], [address], 01/24/2024 22:07:49 01/18/20 24 01/18/2024 CMP(C OMPRE HENSI VE METAB OLIC PANEL ) bilirubin, total 0.7 mg/dL 0.2-1. 2 Not Available [facility] (Lab) [address] [place], [address], 01/24/2024 22:07:49 01/18/20 24 01/18/2024 TESTO STERO NE, TOTAL testosterone , total <10 NG/dL 0-75 Not Available [facility] (Lab) [address] [place], [address], 01/24/2024 22:07:50 01/18/20 24 01/18/2024 TESTO STERO NE, FREE testosterone free 0.3 pg/mL 0.2-5. 0 The yumi ntrat ion of free testo stero ne is deriv ed from a mathe matic al model using total testo stero ne by LCMSM S, sex hormo ne velma ng globu lizbeth and album in. This test was devel oped and its madison tical perfo rmanc e gus cteri stics have been deter mined by [facility] [place], [place]. It has not been clear ed or appro otilia by the U.S. Food and Drug Admin istra tion. This assay has been valid ated pursu ant to the CLIA regul ation s and is used for clini fortunato purpo ses. Perfo rming Organ izati on Infor matio n: Site ID: AMD Name: [facility] Addre ss: [address] [facility] [place], [place] Direc tor: Nolan Coelho MD PhD Not Available [facility] (Lab) [address] [facility], [place], [address], 01/24/2024 22:07:50 Result Notes None recorded. Procedures Surgical History Date Name Laterality Status Provider Name and Address Organization Details Recorded Time 11/18/[address] [facility] 12/18/2023 17:38:10 11/14/19 23 Date of Last Mammogram completed Renetta [facility] 12/18/2023 17:38:32 06/13/19 23 Most Recent Bone Density completed Renetta [facility] 12/18/2023 17:38:32 11/07/19 20 Date of Last Colonoscopy completed Renetta [facility] 12/18/2023 17:38:32 06/25/19 20 Date of Last Pap Smear completed Renetta [facility] 12/18/2023 17:38:32 06/24/[address] [facility] 12/18/2023 17:38:10 06/24/19 19 Gastric Bypass completed [facility] 12/18/2023 17:38:10 06/20/19 19 Bariatric Surgery completed [facility] 12/18/2023 17:38:10 06/24/19 00 Colonoscopy completed [facility] 12/18/2023 17:38:10 Gastric Bypass completed [facility] 12/18/2023 17:38:10 LEEP completed [facility] 12/18/2023 17:38:10 Dilation and Curettage completed [facility] 12/18/2023 17:38:10 Orthopedic Surgery completed [facility] 12/18/2023 17:38:10 Endometrial Ablation completed [facility] 12/18/2023 17:38:10 Hysteroscopy completed [facility] 12/18/2023 17:38:10 Laparoscopy completed [facility] 12/18/2023 17:38:10 Endometrial Biopsy completed [facility] 12/18/2023 17:38:10 Other completed [facility] 12/18/2023 17:38:10 Total Hysterectomy completed [facility] 12/18/2023 17:38:10 Appendectomy completed [facility] 12/18/2023 17:38:10 Imaging Results None recorded. Procedure Notes None recorded. Medical Equipment None Reported. Allergies Allergen ID Allergen Name Allergen Category Reaction Reaction Severity Criticality Documentation Date Start Date Code Code System Note Provider Name and Address Organization Details Recorded Time 28696 codeine medicatio n Not available Not available Not available 12/18/2023 2670 RxNorm Renetta Maldonado [facility] 4 17:48:47 91625 meperidin e medicatio n Not available Not available Not available 12/18/2023 6754 RxNorm Renetta Maldonado [facility] 4 17:49:01 25691 levofloxa vishnu medicatio n Not available Not available Not available 12/18/2023 90148 RxNorm Renetta Maldonado [facility] 4 17:49:16 01229 gabapenti n medicatio n Not available Not available Not available 12/18/2023 09084 RxNorm Renetta Maldonado [facility] 4 17:49:27 86436 adhesive tape environme nt,medica tion Not available Not available Not available 12/18/2023 Renetta Maldonado [facility] 4 17:49:34 62345 doxycycli ne Not available Not available Not available Not available 12/18/2023 3640 RxNorm Renetta Maldonado [facility] 4 17:49:45 Medications Name Sig Start [...] Address Organization Details Last Updated DateTime 12/18/2023 03429.14 g 33.8 kg/m2 160.02 cm 143 mm[Hg] 84 mm[Hg] [facility] 4 17:48:08 Date Recorded Body height Body mass index (BMI) Body weight Systolic blood pressure Diastolic blood pressure Provider Name and Address Organization Details Last Updated DateTime 01/18/2024 160.02 cm 33.5 kg/m2 06748.96 g 149 mm[Hg] 88 mm[Hg] [facility] 4 10:33:47 Social History Question Answer Notes LastModified by Organizat ion Details LastModified Time Do You Have An Advance Directive? No [email or web address] Information n ot available 12/18/2023 What Is Your Level Of Alcohol Consumption? None Information not available 12/18/2023 Are You Blind Or Do You Have Difficulty Seeing? No Information not available 12/18/2023 What Is Your Level Of Caffeine Consumption? None [email or web address] Information not available 12/18/2023 In The 14 Days Before Symptom Onset, Have You Had Close Contact With A Laboratory-confirme d COVID-19 While That Case Was Ill? No Information n ot available 12/18/2023 In The 14 Days Before Symptom Onset, Have You Had Close Contact With A Person Who Is Under Investigation For COVID-19 While That Person Was Ill? No Information not available 12/18/2023 Have You Been To An Area Known To Be High Risk For COVID-19? No [email or web address] Information not available 12/18/2023 Are You Deaf Or Do You Have Serious Difficulty Hearing? No Information not available 12/18/2023 What Type Of Diet Are You Following? REGULAR Information n ot available 12/18/2023 What Is The Highest Grade Or Level Of School You Have Completed Or The Highest Degree You Have Received? RI70096-7 [email or web address] Information not available 12/18/2023 What Is Your Occupation? Disabled [email or web address] Information not available 12/18/2023 Are There Any Guns Present In Your Home? No Information not available 12/18/2023 Do You Use Protection During Sex? No Information not available 12/18/2023 Do You Use Your Seat Belt Or Car Seat Routinely? Yes [email or web address] Information not available 12/18/2023 Do You Have Smoke And Carbon Monoxide Detectors In Your Home? Yes [email or web address] Information not available 12/18/2023 How Much Tobacco Do You Smoke? No [email or web address] Information not available 12/18/2023 Do You Feel Stressed (tense, Restless, Nervous, Or Anxious, Or Unable To Sleep At Night)? [id number] [email or web address] Information not available 12/18/2023 Do You Use Any Illicit Or Recreational Drugs? No [email or web address] Information not available 12/18/2023 Do You Use Sunscreen Routinely? Yes [email or web address] Information not available 12/18/2023 Have You Used IV Drugs? No [email or web address] Information not available 12/18/2023 Sex: Unknown Functional Status Question Answer Note LastModified by Organization D etails LastModified Time Are you able to walk? YESWOREST [email or web address] Information not available 12/18/2023 What is your exercise level? None [email or web address] Information not available 12/18/2023 Mental Status None recorded. Family History Relationship Description Onset Age of this Age Resolved Age Notes LastModified by Organization Details LastModified Time Mother Disorder of lung 73 73 [email or web address] Not available 2023 17:38:09 Mother Malignant tumor of lung 73 73 [email or web address] Not available 2023 17:38:09 Mother Disorder of lung [email or web address] Not available 2023 10:30:05 Mother Malignant tumor of lung [email or web address] Not available 2023 10:30:05 Son Depressive disorder 25 [email or web address] Not available 2023 10:30:05 Son Depressive disorder [email or web address] Not available 2023 10:30:05 Daughter Asthma 14 [email or web address] Not availabl e 01/18/2024 10:30:05 Daughter Anxiety disorder 15 [email or web address] Not available 2023 10:30:05 Daughter Depressive disorder 15 [email or web address] Not available 2023 10:30:05 Daughter Substance abuse 16 Not available 2023 10:30:05 Daughter Mental disorder 16 [email or web address] Not available 2023 10:30:05 Daughter Pre-eclampsi a 28 Not available 2023 10:30:05 Daughter Asthma [email or web address] Not availabl e 01/18/2024 10:30:05 Daughter Anxiety disorder [email or web address] Not available 2023 10:30:05 Daughter Depressive disorder [email or web address] Not available 2023 10:30:05 Daughter Pre-eclampsi a [email or web address] Not available 2023 10:30:05 Daughter Substance abuse [email or web address] Not available 2023 10:30:05 Daughter Mental disorder [email or web address] Not available 2023 10:30:05 Sister Anemia 23 Not available 01/18/2024 10:30:05 Sister Osteoporosis 45 [email or web address] Not avai lable 01/18/2024 10:30:05 Sister Diabetes mellitus 45 [email or web address] Not available 2023 10:30:05 Sister Anemia [email or web address] Not available 01/18/2024 10:30:05 Sister Osteoporosis [email or web address] Not avai lable 01/18/2024 10:30:05 Sister Diabetes mellitus [email or web address] Not available 2023 10:30:05 Father Heart disease 59 67 Not available 2023 17:38:10 Father Disorder of lung 67 67 [email or web address] Not available 2023 17:38:10 Father Disorder of lung [email or web address] Not available 2023 10:30:05 Father Heart disease [email or web address] Not available 2023 10:30:05 Medical History No [...] SNOMED-CT Code Diagnosis ICD10 Code Diagnosis Note [id number] KELVIN NEWELL MD [place] [address] [address] 12/18/2023 17:22:32 12/19/2023 03:57:08 Genital herpes simplex [id number] A60.9 - new exposure per patient- s/p [...] at this time Lichen sim plex chronicus [id number] L28.0 - patient reports thickening of vulvar skin for years, itch-scrat ch cycle- will start clobetasol ointment; rtc 1 month for evaluation [id number] KELVIN NEWELL MD [place] [address] [address] 01/18/2024 10:05:21 01/18/2024 16:50:31 Lack or loss of sexual desire [id number] F52.0 - patient reports long standing superficia l dyspareuni a (previousl y improved with vaginal estrogen cream) and low libido- will restart vaginal estrogen- discussed testostero ne supplement ation for HSDD Lichen sim plex chronicus [id number] L28.0 - patient reports thickening of vulvar skin for years, itch-scrat ch cycle- clobetasol PRN; symptoms now improved Health Concerns Section Related Observation LastModified by Organization Detai ls LastModified Time None Recorded Concern Status LastModified by Organization Details LastModified Time None Recorded Advance Directives Directive N: Payers Encounter Date Sequence Insurance Name Policy Number Policy Heller Covered Member ID Heller Member ID Guarantor Name 12/18/2023 4 [place] Tk Ruiz [id number] Tiffanie Ruiz 12/18/2023 1 [place] Tiffanie Ruiz [id number] Tiffanie Ruiz 01/18/2024 2 [place] [id number] Tk Ruiz [id number] Tiffanie Joseph 01/18/2024 1 [place] Tiffanie Ruiz [id number] Tiffanie Joseph Notes Date Note Type Note Provider Name [...] treatments for it. KELVIN NEWELL MD [address], [place], [address], [facility] 12/18/2023 22:44:55 01/18/2024 text/html Patient presents for med check. Was previously seen 10/2023 for primary HSV outbreak and lichen simplex chronicus. She reports improvement in her HSV symptoms, has not had an outbreak since that time. LSC symptoms also improved. She now reports superficial dyspareunia and low libido, which have been present for some time. She was previously on estrogen cream for dyspareunia which improved her symptoms. She has not tried anything for low libido. KELVIN NEWELL MD [address], [place], [address], [facility] 01/18/2024 16:24:14 OBGyn Episode Ob Episode Information Episode Created Date Number of Fetuses Patient Bloodtype Patient rh Status Prepregnancy Weight lbs Domestic Partner Domestic Partner Phone Father Name Process Control Board Operator Status 12/18/19 24 1 CLOSED Fetus Data First Name Last Name Admitted to NICU Weight (g) Sex Living Outcome Pediatric Complications Fetus ID Race Codes Race Delivery Type F Full Term [id number] Vaginal Delivery Frederick Calculation Initial Frederick Date Initial Exam Date Initial Exam Provider Initial Ultrasound Date Last Menstrual Period Date Ultra Sound Weeks Gestation 0 Eighteen To Twenty Week Frederick Update Ultra Sound Date Fundal Height At Umbil Quickening Date Ultra Sound Latest Weeks Gestation Final Frederick Confirmed By Final Frederick Confirmed Date Final Frederick Date Ultra Sound Latest Days Gestation 0 0 Menstrual History Last Menstrual Date Menses Monthly On Bcp Conception Prior Menses Frequency Hcg Plus Date Menarche Onset Age Delivery Information Delivery Date Delivery Type Labor Anesthesia Weeks Gestation Incision Type Labor Labor Length Hrs Delivered By Post Complications Tubal Sterilization Discharge Date Comments 4 Discharge Information Feeding Method Contraceptive Method Maternal HG B and HCT Levels Ob Episode Information Episode Created Date Number of Fetuses Patient Bloodtype Patient rh Status Prepregnancy Weight lbs Domestic Partner Domestic Partner Phone Father Name Process Control Board Operator Status 12/18/19 24 1 CLOSED Fetus Data First Name Last Name Admitted to NICU Weight (g) Sex Living Outcome Pediatric Complications Fetus ID Race Codes Race Delivery Type M Full Term [id number] Vaginal Delivery Frederick Calculation Initial Frederick Date Initial Exam Date Initial Exam Provider Initial Ultrasound Date Last Menstrual Period Date Ultra Sound Weeks Gestation 0 Eighteen To Twenty Week Frederick Update Ultra Sound Date Fundal Height At Umbil Quickening Date Ultra Sound Latest Weeks Gestation Final Frederick Confirmed By Final Frederick Confirmed Date Final Frederick Date Ultra Sound Latest Days Gestation 0 0 Menstrual History Last Menstrual Date Menses Monthly On Bcp Conception Prior Menses Frequency Hcg Plus Date Menarche Onset Age Delivery Information Delivery Date Delivery Type Labor Anesthesia Weeks Gestation Incision Type Labor Labor Length Hrs Delivered By Post Complications Tubal Sterilization Discharge Date Comments 9 Discharge Information Feeding Method Contraceptive Method Maternal HG B and HCT Levels
--- OUTSIDE RECORDS SUMMARY | 2024-02-17 06:17 | XMS_ITS | Continuity of Care Document ---
Author Organization [facility] Address [address] [place] [address] Assessment No assessment recorded. Plan of Treatment Reminders Order Date Submit Date Provider Last Modified By Organization Details Last Modified Time Details Appointments [facility] 2024 10:00A Naomi NEWELL MD Not available Not available Not available Lab testoster one, total, serum 2023 024 [facility] (Lab), [address] [place], [address], 01/24/2024 22:07:50 testoster one, free, serum 2023 024 [facility] (Lab), [address] [place], [address], 01/24/2024 22:07:50 CMP, serum or plasma 2023 024 [facility] (Lab), [address] [place], [address], 01/24/2024 22:07:49 Referral None recorded. Procedures None recorded. Surgeries None recorded. Imaging None recorded. Medication Orders estradiol 0.01% (0.1 mg/gram) vaginal cream 2023 024 [facility], [address] [facility], [place], [address], 01/18/2024 16:24:04 Patient TargetsNo targets recorded. Patient InstructionsNo instructions recorded. Reason for Referral None Reported. Procedures Surgical History Date Name Laterality Status Provider Name and Address Organization Details Recorded Time 11/18/19 23 completed [facility] 12/18/2023 17:38:10 11/14/19 23 Date of Last Mammogram completed [facility] 12/18/2023 17:38:32 06/13/19 23 Most Recent Bone Density completed [facility] 12/18/2023 17:38:32 11/07/19 20 Date of Last Colonoscopy completed [facility] 12/18/2023 17:38:32 06/25/19 20 Date of Last Pap Smear completed [facility] 12/18/2023 17:38:32 06/24/19 19 completed [facility] 12/18/2023 17:38:10 06/24/19 19 Gastric Bypass completed [facility] 12/18/2023 17:38:10 06/20/19 19 Bariatric Surgery completed [facility] 12/18/2023 17:38:10 06/24/19 00 Colonoscopy completed [facility] 12/18/2023 17:38:10 Gastric Bypass completed [facility] 12/18/2023 17:38:[address] [facility] 12/18/2023 17:38:10 Dilation and Curettage completed [facility] 12/18/2023 17:38:10 Orthopedic Surgery completed [facility] 12/18/2023 17:38:10 Endometrial Ablation completed [facility] 12/18/2023 17:38:10 Hysteroscopy completed [facility] 12/18/2023 17:38:10 Laparoscopy completed [facility] 12/18/2023 17:38:10 Endometrial Biopsy completed [facility] 12/18/2023 17:38:[address] [facility] 12/18/2023 17:38:10 Total Hysterectomy completed [facility] 12/18/2023 17:38:10 Appendectomy completed [facility] 12/18/2023 17:38:10 Imaging Results None recorded. Procedure Notes None recorded. Medical Equipment None Reported. Allergies Allergen ID Allergen Name Allergen Category Reaction Reaction Severity Criticality Documentation Date Start Date Code Code System Note Provider Name and Address Organization Details Recorded Time 06633 codeine medicatio n Not available Not available Not available 12/18/2023 2670 [facility] 17:48:47 39180 meperidin e medicatio n Not available Not available Not available 12/18/2023 6754 RxNorm [facility] 17:49:01 43182 levofloxa vishnu medicatio n Not available Not available Not available 12/18/2023 73360 RxNorm Renetta [facility] 17:49:16 31859 gabapenti n medicatio n Not available Not available Not available 12/18/2023 69856 RxNorm Renetta [facility] 17:49:27 54529 adhesive tape environme nt,medica tion Not available Not available Not available 12/18/2023 Renetta Maldonado jase, [facility] 4 17:49:34 11973 doxycycli ne Not available Not available Not available Not available 12/18/2023 3640 RxNorm Renetta laguna, [facility] 4 17:49:45 Medications Name Sig [...] Available Not Available Vitals Date Recorded Body height Body mass index (BMI) Body weight Systolic blood pressure Diastolic blood pressure Provider Name and Address Organization Details Last Updated DateTime 01/18/2024 160.02 cm 33.5 kg/m2 69316.96 g 149 mm[Hg] 88 mm[Hg] Renetta Maldonado [facility] 10:33:47 Social History Question Answer Notes LastModified by Organizat ion Details LastModified Time Do You Have An Advance Directive? No [email or web address] Information n ot available 12/18/2023 What Is Your Level Of Alcohol Consumption? None Information not available 12/18/2023 Are You Blind Or Do You Have Difficulty Seeing? No [email or web address] Information not available 12/18/2023 What Is Your Level Of Caffeine Consumption? None [email or web address] Information not available 12/18/2023 In The 14 Days Before Symptom Onset, Have You Had Close Contact With A Laboratory-confirme d COVID-19 While That Case Was Ill? No Information n ot available 12/18/2023 In The 14 Days Before Symptom Onset, Have You Had Close Contact With A Person Who Is Under Investigation For COVID-19 While That Person Was Ill? No [email or web address] Information not available 12/18/2023 Have You Been To An Area Known To Be High Risk For COVID-19? No [email or web address] Information not available 12/18/2023 Are You Deaf Or Do You Have Serious Difficulty Hearing? No Information not available 12/18/2023 What Type Of Diet Are You Following? REGULAR [email or web address] Information n ot available 12/18/2023 What Is The Highest Grade Or Level Of School You Have Completed Or The Highest Degree You Have Received? IS13466-0 uwcyavv40 Information not available 12/18/2023 What Is Your Occupation? Disabled Information not available 12/18/2023 Are There Any Guns Present In Your Home? No [email or web address] Information not available 12/18/2023 Do You Use Protection During Sex? No [email or web address] Information not available 12/18/2023 Do You Use Your Seat Belt Or Car Seat Routinely? Yes [email or web address] Information not available 12/18/2023 Do You Have Smoke And Carbon Monoxide Detectors In Your Home? Yes [email or web address] Information not available 12/18/2023 How Much Tobacco Do You Smoke? No [email or web address] Information not available 12/18/2023 Do You Feel Stressed (tense, Restless, Nervous, Or Anxious, Or Unable To Sleep At Night)? [id number] nocxqjx15 Information not available 12/18/2023 Do You Use Any Illicit Or Recreational Drugs? No Information not available 12/18/2023 Do You Use Sunscreen Routinely? Yes [email or web address] Information not available 12/18/2023 Have You Used IV Drugs? No [email or web address] Information not available 12/18/2023 Sex: Unknown Functional Status Question Answer Note LastModified by Organization D etails LastModified Time Are you able to walk? YESWOREST [email or web address] Information not available 12/18/2023 What is your exercise level? None [email or web address] Information not available 12/18/2023 Mental Status None recorded. Family History Relationship Description Onset Age of this Age Resolved Age Notes LastModified by Organization Details LastModified Time Mother Disorder of lung 73 73 [email or web address] Not available 2023 17:38:09 Mother Malignant tumor of lung 73 73 [email or web address] Not available 2023 17:38:09 Mother Disorder of lung [email or web address] Not available 2023 10:30:05 Mother Malignant tumor of lung krpnvou98 Not available 2023 10:30:05 Son Depressive disorder 25 Not available 2023 10:30:05 Son Depressive disorder [email or web address] Not available 2023 10:30:05 Daughter Asthma 14 Not availabl e 01/18/2024 10:30:05 Daughter Anxiety disorder 15 Not available 2023 10:30:05 Daughter Depressive disorder 15 [email or web address] Not available 2023 10:30:05 Daughter Substance abuse 16 [email or web address] Not available 2023 10:30:05 Daughter Mental disorder 16 [email or web address] Not available 2023 10:30:05 Daughter Pre-eclampsi a 28 [email or web address] Not available 2023 10:30:05 Daughter Asthma Not availabl e 01/18/2024 10:30:05 Daughter Anxiety disorder imzzvkj41 Not available 2023 10:30:05 Daughter Depressive disorder [email or web address] Not available 2023 10:30:05 Daughter Pre-eclampsi a [email or web address] Not available 2023 10:30:05 Daughter Substance abuse [email or web address] Not available 2023 10:30:05 Daughter Mental disorder [email or web address] Not available 2023 10:30:05 Sister Anemia 23 [email or web address] Not available 01/18/2024 10:30:05 Sister Osteoporosis 45 oqvxgho53 Not avai lable 01/18/2024 10:30:05 Sister Diabetes mellitus 45 Not available 2023 10:30:05 Sister Anemia aksdnzz54 Not available 01/18/2024 10:30:05 Sister Osteoporosis [email or web address] Not avai lable 01/18/2024 10:30:05 Sister Diabetes mellitus uscgftb68 Not available 2023 10:30:05 Father Heart disease 59 67 [email or web address] Not available 2023 17:38:10 Father Disorder of lung 67 67 guvtmst64 Not available 2023 17:38:10 Father Disorder of lung [email or web address] Not available 2023 10:30:05 Father Heart disease [email or web address] Not available 2023 10:30:05 Medical History No [...] SNOMED-CT Code Diagnosis ICD10 Code Diagnosis Note [id number] KELVIN NEWELL MD [place] [address] [address] 01/18/2024 10:05:21 01/18/2024 16:50:31 Lack or loss of sexual desire [id number] F52.0 - patient reports long standing superficia l dyspareuni a (previousl y improved with vaginal estrogen cream) and low libido- will restart vaginal estrogen- discussed testostero ne supplement ation for HSDD Lichen sim plex chronicus [id number] L28.0 - patient reports thickening of vulvar skin for years, itch-scrat ch cycle- clobetasol PRN; symptoms now improved Health Concerns Section Related Observation LastModified by Organization Detai ls LastModified Time None Recorded Concern Status LastModified by Organization Details LastModified Time None Recorded Payers Encounter Date Sequence Insurance Name Policy Number Policy Heller Covered Member ID Heller Member ID Guarantor Name 01/18/2024 2 [place] [id number] Joseph [id number] Tiffanie Ruiz 01/18/2024 1 [place] Tiffanie Ruiz [id number] Tiffanie Ruiz Notes Date Note Type Note Provider Name and Address Organization Details Recorded Time 01/18/2024 text/html Patient presents for med check. [...] anything for low libido. KELVIN NEWELL MD [address], [place], [address], [facility] 01/18/2024 16:24:14 OBGyn Episode No OBEpisode recorded.
== END 2024-02-10 14:30 | disposition home or self-care (01) ==
PROVIDERS: Emergency Provider Nurse Practitioner; PCP Internal Medicine
DX: J40 Bronchitis, not specified as acute or chronic (principal); F12.90 Cannabis use, unspecified, uncomplicated; K75.81 Nonalcoholic steatohepatitis (NASH); M79.7 Fibromyalgia; J45.909 Unspecified asthma, uncomplicated; E78.5 Hyperlipidemia, unspecified; E66.9 Obesity, unspecified; Z98.84 Bariatric surgery status; Z68.33 Body mass index [BMI] 33.0-33.9, adult; E89.0 Postprocedural hypothyroidism; F41.9 Anxiety disorder, unspecified; Z85.820 Personal history of malignant melanoma of skin; Z86.73 Personal history of transient ischemic attack (TIA), and cerebral infarction without residual deficits; Z79.82 Long term (current) use of aspirin
CPT/HCPCS: 71046; 99213; G0463

== ENCOUNTER 2024-03-03 13:12 | Outpatient (CLI) | payer MEDICARE, BC, SELFPAY ==
--- NOTE | ~2024-03-03 | XR_ITS ---
EXAMINATION: XR abdomen/kub 1V DATE: 03/03/2024 13:34 INDICATION: Right ureteral stone. TECHNIQUE: A supine view of the abdomen on 2 radiographs was obtained. COMPARISON: Abdomen radiographs 11/08/2023, CT abdomen and pelvis 03/03/2024 FINDINGS: There are no dilated loops of bowel. The kidneys are obscured by bowel. There is a 3 mm sto ne in right kidney. There are phleboliths in the pelvis. There is a phlebolith in right ovarian vein. IMPRESSION: 1. 3 mm stone in right kidney. Reviewed, dictated and finalized at location A. ING CENTER MANAGER
--- NOTE | ~2024-03-03 | CT_ITS ---
EXAMINATION: CT abdomen pelvis wo con DATE: 03/03/2024 13:37 INDICATION: Right ureteral stone. TECHNIQUE: Computed tomography (CT) of the abdomen and pelvis was performed without intravenous contr ast. Automated exposure control and iterative reconstruction technique were employed. The dose-length product was 268.35 mGy-cm. COMPARISON: CT abdomen and pelvis 10/12/2023 FINDINGS: The visualized portions of the lung bases demonstrate a calcified right lung nodule, consis tent with old granulomatous disease. There is mild scarring in paraspinal right lower lobe. No pleura l effusion. The heart size is normal. No pericardial effusion. There is a small sliding hiatal hernia . There are surgical changes of the stomach. The liver, gallbladder, spleen, pancreas, and adrenal gl ands are normal. There is a 3 mm stone in right kidney. There are 3 stones in left kidney measuring u p to 5 mm. There are 3 mm and 2 mm stones in mid right ureter. There are no dilated loops of bowel. T here are no pathologically enlarged lymph nodes. There is no free intraperitoneal fluid. There is mil d thoracic and lumbar spondylosis. IMPRESSION: 1. 3 mm and 2 mm stones in mid right ureter. No hydronephrosis. 2. Bilateral nonobstructing kidney stones. Reviewed, dictated and finalized at location A. OR PREMIUM AUDITOR
--- OUTSIDE RECORDS SUMMARY | 2024-03-03 13:55 | XMS_ITS | Encounter Summary ---
Author Organization [facility] Address [address] [place] [address] Care Team Providers Care Tender Coordinator Name Role Phone Jona Bravo MD Primary Care Provider [phone] Reason for Visit * Reason Comments Clinical Consult Before Scheduling Encounter Details Date Type Department Care Team (Late st Contact Info) Description 02/11/2024 Telephone [facility] [address] [place] [address] Jona Bravo MD [address] [facility] [address] [place] [address] Clinical Consult Before Scheduling Social History Tobacco Use Types Packs/Day Years Used Date Smoking Tobacco: Never Passive Smoke Exposure: Never Smokeless Tobacco: Never Alcohol Use Standard Drinks/Week Comments Yes 0 (1 standard drink = 0.6 oz pur e alcohol) 1 time a year Social Connections Answer Date Recorded In a typical week, how many times do you talk on the phone with family, friends, or neighbors? More than three times a week 01/11/2020 How often do you get togethe r with friends or relatives? Never 01/11/2020 How often do you attend chur ch or gnosticist services? Never 01/11/2020 Do you belong to any clubs o r organizations such as temple groups, unions, fraternal or athletic groups, or school groups? No 01/11/2020 How often do you attend meet ings of the clubs or organizations you belong to? More than 4 times per year 01/11/2020 Marital Status Not on file 01/11/2020 Financial Resource Strain Answer Date R ecorded How hard is it for you to pa y for the very basics like food, housing, medical care, and heating? Not hard at all 10/14/2021 Food Insecurity Answer Date Recorded In the past 12 months, have you worried that your food would run out before you had money to buy more? Never true 10/14/2021 In the past 12 months, did y ou run out of food and didn't have money to buy more? Never true 10/14/2021 Transportation Needs Answer Date Record ed In the past 12 months, has l ack of transportation kept you from medical appointments or from getting medications? No 10/14/2021 Lack of Transportation (Non-Medical) Not on file 10/14/2021 Education Answer Date Recorded What is the highest level of school you have completed or the highest degree you have received? 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 Topic: Symptomatic Care >> Feb 11, 2024 4:22 PM Connie Ardon wrote: Caller has new symptoms and is seeking care. Age Range/Symptom: Adult: 18+ - Cold, Flu, COVID, Sinus, Hay Fever, Allergies, Cough, Fever Does patient have any of the following other urgent symptoms: No urgent symptoms requiring warm call transfer Caller Name: Tiffanie Ruiz Callback Number: [phone] Call Notes: She has been sick since 01/31/2024. She went to the Urgent care ([facility]), yesterday. Where they prescribed steroids, and gave x-ray. She Is still suffering from cough, raspy throat, chest aches, and head congestion. Emergency inhaler not working well Refer to - [facility] (02/11/2024) She is scheduled with [facility] on 02/14/2024 Unable to schedule appointment within patient's desired timeframe. Patient declined all other options for immediate care, preferring to schedule first available. Scheduled appointment for 02/14/24 at3pm . If this is not clinically appropriate, please contact patient. No ONAL EXTENSION SERVICE SPECIALIST documented in this encounter Plan of Treatment Upcoming Encounters Date Type Department Care Team (Late st Contact Info) Description 04/23/2024 1:20 PM CDT Office Visit [address] [place] [address] Jona Bravo MD [address] [place] [address] [address] [place] [address] 08/25/2024 10:40 AM CDT Office Visit [address] [place] [address] Jona Bravo MD [address] [place] [address] [address] [place] [address] documented as of this encounter Visit Diagnoses Not on filedocumented in this encounter Care Teams Tender Coordinator Relationship Specialty Start Date End Date Jona Bravo MD PCP - General Internal Medicine 11/25/15 documented as of this encounter
--- OUTSIDE RECORDS SUMMARY | 2024-03-03 13:55 | XMS_ITS | Encounter Summary ---
Author Organization [facility] Address [address] [place] [address] Phone Care Team Providers Care Body Welder Name Role Phone Jona Bravo MD Primary Care Provider + Desire Sams RN Unavailable Un available Pooja [place] LCSW Unavailable [phone] Roscoe Mccollum MD Unavailable [phone] Encounter Details Date Type Department Care Team (Latest Contact Info) Description 09/08/2021 Orders Only [facility] Scanning, Provider Social History Tobacco Use Types Packs/Day Years Used Date Smoking Tobacco: Never Smokeless Tobacco: Never Alcohol Use Standard Drinks/Week Comments No 0 (1 standard drink = 0.6 oz pur e alcohol) AUDIT-C Answer Date Recorded Q1: How often do you have a drink containing alc ohol? Never 06/02/2021 Average Number of Drinks Not on file 022 Q3: How often do you have si x or more drinks on one occasion? Never 06/02/2021 PHQ-2 Answer Date Recorded PHQ-2 Total Score (If total score is 3 or more points, staff should administer the PHQ-9) 4 09/12/2019 Comments No Sex and Gender Information Value Date Recorded Sex Assigned at Not on file Legal Sex Female 12:46 AM RFID TECHNICIAN Gender Identity Female 04/08/2019 6:15 AM RFID TECHNICIAN Sexual Orientation Straight 04/08/2019 6: 15 AM RFID TECHNICIAN Occupation Industry Job Start Date Job End Date On Disability Not on file Not on file Not on file documented as of this encounter Plan of Treatment Not on file documented as of this encounter Procedures Procedure Name Priority Date/Time Associated Diagnosis Comments SCAN - RADIOLOGY/IMAGING 09/08/2021 documented in this encounter Results * SCAN - RADIOLOGY/IMAGING (09/08/2021) Anatomical Region Laterality Modality Other us Provider Scanning Edited Result - Final documented in this encounter Visit Diagnoses Not on filedocumented in this encounter Care Teams Body Welder Relationship Specialty Start Date End Date Jona Bravo MD [address] [place] [address] PCP - General 05/05/16 Desire Sams, RN Registered Nurse 04/03/17 Pooja [place], [facility] [address] [facility] ([facility]) Mailstop [phone] [place] [address] [facility] Outpatient Back Up Machine Operator 10/12/21 11/09/21 Roscoe Mccollum MD [address] [facility] [address] [place] [address] Anesthesiologist Pain Management 12/21/21 documented as of this encounter
--- OUTSIDE RECORDS SUMMARY | 2024-03-03 13:55 | XMS_ITS | Clinical Summary ---
Author Organization [facility] Address [address] [place] [address] Phone Care Team Providers Care Clock Mechanic Name Role Phone Jona Bravo MD Primary Care Provider [phone] Allergies Active Allergy Reactions Criticality Noted Date Comments Adhesive Tape-Silicones Other (See Comments) Codeine Hives High 05/30/2010 Codeine Phosphate Hives High 06/16/2009 pruritus Doxycycline Other (See Comments) 05/15/2017 Chest pain Duloxetine Other (See Comments) 01/10/2019 depn Gabapentin Other (See Comments) Low 12/08/2015 Other reaction(s): Other (See comments) Hair fell out Hair fell out Hair fell out Levofloxacin Other (See Comments) Low 06/24/2010 Other reaction(s): Other (See comments) Pain in tendons of knees, arms, shoulders Reaction: OTHER,?, Pain in tendons of knees, arms, shoulders Reaction: OTHER,? Pain in tendons of knees, arms, shoulders Reaction: OTHER, ?? Tendons hurt ??Pt takes ciprofloxacin without problems Meperidine Hives High 06/16/2009 Reaction: Hives, ??, Reaction: Hives, ??, , Reaction: HIVES, ??, Reaction: Hives, ??, Reaction: Hives, ??, , Reaction: HIVES, ?? Reaction: Hives, ??, Reaction: Hives, ??, , Reaction: HIVES, ?? Prochlorperazine Other (See Comments) Low Other reaction(s): Other (See comments) Reaction: OTHER, ?? Reaction: OTHER, ?? Suvorexant Abdominal Pain Low 06/29/2016 Medications omeprazole (PriLOSEC) 20 mg Capsule, Delayed Release(E.C.) TAKE 1 CAPSULE DAILY. 90 Capsule 3 018 Active multivitamin (DAILY-ANDREY) tablet Take 1 Tablet by mouth daily. Active blood sugar diagnostic StripIndication s:Abnormal glucose accucheck with meter, bid check 100 Strip 2 020 Active albuterol HFA 90 mcg inhalerIndicati ons:Mild intermittent asthma, unspecified whether complicated Take 2 Puffs by inhalation every 6 hours as needed for Shortness of Breath. 8.5 Gram 1 021 Active ketoconazole (NIZORAL) 2 % Cream Apply to affected area 2 times daily. abdoimen bid 60 Gram 2 021 Active magnesium oxide 500 mg Tablet Take 500 mg by mouth daily. 021 Active aspirin (ECOTRIN EC) 81 mg Tablet, Delayed Release (E.C.) Take 81 mg by mouth daily. Active fluconazole (DIFLUCAN) 150 mg tablet Take 1 Tablet (150 mg) by mouth daily. 1 Tablet 1 Active ipratropium bromide (ATROVENT) 21 mcg (0.03 %) [place], Non-Aerosol Administer 2 Sprays in each nostril 2 times daily. 30 mL 2 021 Active estradioL (ESTRACE) 0.01% (0.1 mg/g) vaginal cream INSERT 1 GRAM INTO VAGINA ONCE DAILY FOR 4 DAYS THEN TWICE WEEKLY THEREAFTER 43 Gram 3 022 Active eszopiclone (LUNESTA) 3 mg Tablet TAKE 1 TABLET BY MOUTH ONCE DAILY AT NIGHT AT BEDTIME NEEDED FOR INSOMNIA 022 Active denosumab (Prolia) 60 mg/mL Syringe Inject 1 mL subcutaneously every 6 months. 1 mL 1 023 Active tiotropium-olod ateroL (STIOLTO RESPIMAT) 2.5-2.5 mcg/actuation metered inhaler Take 2 Puffs by inhalation daily. 4 Gram 1 023 Active denosumab (Prolia) 60 mg/mL Syringe Inject 1 mL (60 mg) subcutaneously once every 6 months 1 mL 1 023 Active phytonadione (vitamin K1) 100 mcg tablet Take 100 mcg by mouth. Active FreeStyle Edyta 2 Sensor Kit USE DIRECTED CHANGE EVERY 14 DAYS 023 Active diclofenac sodium (VOLTAREN) 1 % gelIndications: Right knee pain, unspecified chronicity Apply 2 Grams to affected area 4 times daily. 300 Gram 023 Active potassium citrate (UROCIT-K) 10 mEq (1,080 mg) Extended Release tablet Take 1 Tablet (10 mEq) by mouth 3 times daily. Her potassium supplt was changed due to recurrent kidneys stones 90 Tablet 3 024 Active pravastatin (PRAVACHOL) 80 mg tablet Take 1 tablet by mouth once daily 100 Tablet 3 024 Active silver sulfADIAZINE (SILVADENE) 1 % Cream Apply to affected area daily. Burn on hand 50 Gram 1 024 Active cyanocobalamin (Vitamin B-12) 1,000 mcg Tablet 1,000 mcg. Active levothyroxine 88 mcg tablet Take 1 Tablet (88 mcg) by mouth daily. 100 Tablet 3 024 Active Zinc Gluconate 30 mg Tablet Take by oral route. 022 Active GABAPENTIN ENACARBIL ORAL Take by mouth. Active valACYclovir (Valtrex) 1 gram tablet Take 1 Tablet (1 Gram) by mouth daily. 90 Tablet 3 024 Active nitrofurantoin (MACROBID) 100 mg capsule Take 1 Capsule (100 mg) by mouth 2 times daily. 14 Capsule 024 Active buPROPion HCL (WELLBUTRIN XL) 300 mg Extended Release 24 hour tablet Take 1 Tablet (300 mg) by mouth daily. 100 Tablet 3 024 Active DULoxetine (Cymbalta) 60 mg Capsule, Delayed Release(E.C.) Take 1 Capsule (60 mg) by mouth daily. 90 Capsule 3 024 Active albuterol sulfate HFA 90 mcg/actuation aerosol inhalerIndicati ons:Other asthma Take 2 Puffs by inhalation every 6 hours as needed for Shortness of Breath. 8.5 Gram 1 024 Active amLODIPine (NORVASC) 2.5 mg tablet Take 1 tablet by mouth once daily 90 Tablet 3 Active busPIRone (BUSPAR) 15 mg TabletIndicatio ns:Anxiety state Take 1 Tablet (15 mg) by mouth 2 times daily. 180 Tablet 024 Active losartan (COZAAR) 100 mg tabletIndicatio ns:Primary hypertension Take 0.5 Tablets (50 mg) by mouth 2 times daily. 100 Tablet 024 Active HYDROcodone-venkata taminophen (NORCO) 5-325 mg tabletIndicatio ns:Nonintractab le headache, unspecified chronicity pattern, unspecified headache type Take 1 Tablet by mouth every 6 hours as needed for Pain, Moderate. Max Daily Amount: 4 Tablets 30 Tablet Active spironolactone (ALDACTONE) 25 mg tablet Take 1 Tablet (25 mg) by mouth daily. 30 Tablet 6 Active fluticasone-ume clidinium-vilan terol (Trelegy Ellipta) 200-62.5-25 mcg Disk with Device Lot: [id number] ex: 09/2025 qty: 2 1 Each Active tiZANidine (ZANAFLEX) 4 mg Tablet TAKE 1 TABLET BY MOUTH EVERY 8 HOURS NEEDED FOR SPASM 60 Tablet 2 Active fluticasone-ume clidinium-vilan terol (TRELEGY ELLIPTA) 100-62.5-25 mcg Disk with Device Lot: [id number] ex: 09/2025 qty: 2 1 Each Active tiZANidine (ZANAFLEX) 4 mg Tablet Take 1 Tablet (4 mg) by mouth every 8 hours as needed for Spasm. 60 Tablet 2 024 2024 Discontinued cefdinir (OMNICEF) 300 mg capsule Take 1 Capsule (300 mg) by mouth every 12 hours. 20 Capsule 024 2024 Discontinued nirmatrelvir-ri tonavir (PAXLOVID) 300(150mg x 2)-100 mg oral pack Take 300 mg nirmatrelvir (2 tablets) and 100 mg ritonavir (1 tablet) by mouth together twice daily for 5 days. 1 Dose Pack 025 2024 azithromycin (ZITHROMAX) 250 mg tablet Take 2 Tablets (500 mg) by mouth daily for 1 day, THEN 1 Tablet (250 mg) daily for 4 days. 6 Tablet 025 2024 Active Problems Patient Care Coordination No te Formatting of this note migh t be different from the original. [id number] 06/22/23 Problem Noted Date Diagnosed Date Essential hypertension 02/13/2024 Asthma 12/17/2017 History of stroke without residual deficits 12/06 Thyroid nodule 12/06/2017 Overview (05/30/2018): 2.5cm R Per US 05/24- referred to IR for biopsy MITTAL (dyspnea on exertion) 03/02/2017 Cerebrovascular accident (CVA) 10/23/2016 Dupuytren's contracture of both hands 06/21/2016 Bilateral carpal tunnel syndrome 06/21/2016 Fibromyalgia 12/08/2015 Vitamin D deficiency 12/08/2015 Other sleep apnea 12/08/2015 Hypokalemia 12/08/2015 Gastroesophageal reflux disease without esophagi tis 12/08/2015 Nonalcoholic steatohepatitis ([place]) 12/08/2015 Abnormal glucose 12/08/2015 Other specified hypothyroidism 12/08/2015 Nephrolithiasis 12/08/2015 TLH 07/17 rx in chart 07/17/2014 Abnormal uterine bleeding 02/23/2014 Resolved Problems Problem Noted Date Diagnosed Date Resolved Date Morbid obesity with body mas s index of 40.0-49.9 12/17/2017 02/26/2020 Metabolic acidosis 03/02/2017 Acute pulmonary edema 03/02/20172017 Severe episode of recurrent major depressive disorder, without psychotic features 12/08/201510/2023 Nausea 12/08/2015 06/13/2019 Encounters Date Type Department Care Team Description 03/03/2024 External Device Data Initial Department [address] [place] [address] Dr CANCHOLA: [place] [address] [facility] 02/27/2024 External Device Data ST[facility] ABSTRACTION Provider, Abstract 02/27/2024 External Device Data Initial Department [address] [place] [address] Dr CANCHOLA: [place] [address] [facility] 02/26/2024 External Device Data [facility] ABSTRACTION Provider, Abstract 02/26/[address] [phone] Jona Bravo MD 02/26/[address] [phone] Jona Bravo MD 02/25/2024 External Device Data Initial Department [address] [place] [address] Dr CANCHOLA: [place] [address] [facility], 02/23/2024 [facility] [address] [place] [address] Boo Parrish RN [facility] Patient Accounts Specialist 02/20/2024 External Device Data Initial Department [address] [place] [address] Dr CANCHOLA: [place] [address] [facility] 02/19/2024 External Device Data ST[facility] ABSTRACTION Provider, Abstract 02/19/[address] [phone] Jona Bravo MD 02/18/2024 Telephone [facility] [address] [place] [phone] Shivani Winston FNP [facility] 02/18/2024 External Device Data Initial Department [address] [place] [address] Dr CANCHOLA: [place] [address] [facility], 02/15/[address] [phone] Jona Bravo MD 02/13/2024 3:20 PM PHYSICIAN ASSISTANT PRIMARY CARE Office Visit [place] [address] [facility] [address] [phone] Jona Bravo MD Other hyperlipidemia (Primary Dx); DM type 2, goal HbA1c < 7% ([facility]/HCC); Other asthma; Visit for screening mammogram; Vitamin D deficiency; Other specified hypothyroidism; Essential hypertension 02/13/2024 Abstract [facility] Primary Care [facility] [address] [facility] [address] [place] [phone] Jona Bravo MD 02/13/2024 External Device Data Initial Department [address] [place] [address] Dr CANCHOLA: [place] [address] [facility], 02/13/2024 [facility] [address] [place] [address] Gali-Kaltin Soto RN [facility] 02/12/2024 External Device Data ST[facility] ABSTRACTION Provider, Abstract 02/11/2024 [facility] [address] [facility] [address] [place] [phone] Jona Bravo MD Clinical Consult Before Scheduling 02/11/2024 [place] [id number] [place] [address] Courtney Eli RN [facility] 02/11/2024 External Device Data Initial Department [address] [place] [address] Dr CANCHOLA: [place] [address] [facility], 2024 12:00 PM PHYSICIAN ASSISTANT PRIMARY CARE Ancillary Procedure [facility] [place] [address] [place] [address] Pj Sepulveda MD Right ureteral stone 2024 11:30 AM PHYSICIAN ASSISTANT PRIMARY CARE Ancillary Procedure [facility] [place] [address] [place] [address] Pj Sepulveda MD Kidney stones 2024 External Device Data Initial Department [address] [place] [address] Dr CANCHOLA: [place] [address] [facility], 01/28/2024 External Device Data Initial Department [address] [facility] [address] CANCHOLA: [place] [address] [facility], Md 01/23/2024 External Device Data Initial Department [address] [place] [address] Dr CANCHOLA: [place] [address] [facility], 01/21/2024 External Device Data Initial Department [address] [place] [address] Dr CANCHOLA: Prelude ADT [place], [place] [address]Sabine Villavicencio Md 01/16/2024 External Device Data Initial Department [address] [facility] [address] CANCHOLA: [place]rel[place], [place] [address]Sabine Villavicencio Md 01/14/2024 External Device Data Initial Department [address] [facility] [address] CANCHOLA: Prel[place]T [place], [place] [address]Sabine Villavicencio Md 01/10/2024 1:30 PM PHYSICIAN ASSISTANT PRIMARY CARE Video Visit [facility] [address] [place] [address] Scott Wong PA Nonintractable headache, unspecified chronicity pattern, unspecified headache type (Primary Dx); Primary hypertension; Anxiety state 01/10/2024 Refill [facility] [address] [place] [phone] Scott Wong PA Nonintractable headache, unspecified chronicity pattern, unspecified headache type (Primary Dx) 01/09/2024 External Device Data Initial Department [address] [facility] [address] CANCHOLA: Prelude ADT [place], [place] [address]Sabine [facility] 01/07/2024 External Device Data Initial Department [address] [facility] [address] CANCHOLA: Prelude ADT [place], [place] [address]S[facility] 01/05/[address] [phone] Elham Yung RN [facility] Patient Accounts Specialist 01/02/2024 External Device Data Initial Department [address] [facility] [address] CANCHOLA: Prelude ADT [place], [place] [address]S[facility] 12/31/2023 External Device Data Initial Department [address] [facility] [address] CANCHOLA: Prel[place]T [place], [place] [address]Sabine Villavicencio Md 12/31/2023 Refill [facility] [address] [place] [phone] Jona Bravo MD 12/28/2023 Abstract [facility] [address] [place] [phone] Provider, Abstract 12/26/2023 External Device Data Initial Department [address] [place] [address] Dr CANCHOLA: Prelude [place]T [place], [place] [address]S[facility] 12/24/2023 External Device Data Initial Department [address] [place] [address] Dr CANCHOLA: Prelude ADT [place], [place] [address]Sabine Powers Emergency, 12/19/2023 External Device Data Initial Department [address] [place] [address] Dr CANCHOLA: Prelude [place]T [place], [place] [address]Sabine Powers Emergency, 12/17/2023 External Device Data Initial Department [address] [place] [address] Dr CANCHOLA: Prelude ADT [place], [place] [address]Sabine Powers Emergency, 12/12/2023 External Device Data Initial Department [address] [place] [address] Dr CANCHOLA: Prelude ADT [place], [place] [address]Sabine Powers Emergency, 12/10/2023 External Device Data Initial Department [address] [place] [address] Dr CANCHOLA: Prelude ADT [place], [place] [address]Sabine Powers [facility] 12/07/2023 [facility] Primary Care [address] [address] Jona Bravo MD Osteoarthritis of both knees, unspecified osteoarthritis type 12/05/2023 8:40 AM CDT - 12/05/2023 11:59 PM CDT Hospital Encounter [facility] [place] [facility] [address] [place] [address] Jona Bravo MD Discharge Disposition: Home or Self Care 12/05/2023 External Device Data Initial Department [address] [place] [address] Dr CANCHOLA: Prelude [place]T [place], [place] [address]Sabine Villavicencio Md 12/03/2023 External Device Data Initial Department [address] [place] [address] Dr CANCHOLA: Prelude ADT [place], [place] [address]Sabine Powers Emergency[facility] from Last 3 Months Immunizations Immunization Administration Dates Next Due (ADACEL/BOOSTRIX)(10 YR UP) TDAP VACCINE, 0.5ML, IM 01/16/2021,02/05/2013,09/14/2011 (Moderna Bivalent)(6 Mos Up) COVID-19 Vaccine - Emergency Use Authorization, MRNA(Pf) 50 Mcg/0.5 Ml Im Susp 10/13/2021 (PFIZER DIMITRIS)(12 YR UP PRIMA RY SERIES) COVID-19 VACCINE - EMERGENCY USE AUTHORIZATION, MRNA, DIMITRIS(PF) 30 MCG/0.3 ML IM SUSP 01/08/2023 (PFIZER)(12 YR UP) COVID-19 VACCINE - EMERGENCY USE AUTHORIZATION, MRNA, [id number](PF) 30 MCG/0.3 ML IM SUSP 12/12/2020,04/29/2020,04/08/2020 (PNEUMOVAX 23)(50 YRS UP) PN EUMOCOCCAL POLYSACCHARIDE (PPV23) 0.5 ML, IM 05/30/2016 (PREVNAR 13)(6 WKS UP) PNEUM OCOCCAL CONJUGATE (PCV13) 0.5 ML, IM 09/16/2014 (PREVNAR 20)(6 WKS UP) PNEUM OCOCCAL CONJUGATE VACCINE 20-VALENT (PCV20), POLYSACCHARIDE [id number] CONJUGATE, ADJUVANT 0.5 ML (PF) IM 02/10/2022 (RECOMBIVAX HB/ENGERIX-B)(11 YR UP) HEPATITIS B VACCINE 10 MCG/1 ML OR 20 MCG/1 ML ADOL OR ADULT 2 - 3 DOSE PF, IM 11/05/2014 (SHINGRIX)(50 YRS UP) ZOSTER VACCINE RECOMBINANT, 0.5 ML, IM 10/13/2021 Hepatitis A Vaccine 02/05/2005 INFLUENZA VACCINE HIGH DOSE QUADRIVALENT 65 YR UP PF IM 02/13/2023 INFLUENZA VACCINE QUADRIVALE NT 3 YR UP PF IM 01/07/2019,10/23/2016 INFLUENZA VACCINE QUADRIVALE NT 6 MOS UP CELL DERIVED IM 02/19/2018 INFLUENZA VACCINE QUADRIVALE NT 6 MOS UP IM 12/20/2015 INFLUENZA VACCINE QUADRIVALE NT 6 MOS UP PF IM 11/14/2019 Influenza Seasonal Unspecifi ed Formulation IM 11/22/2020,11/22/2020,10/19/2019,01/07,12/15/2015,09/16/2014,10/06/2013 Influenza Seasonal Unspecifi ed Formulation PF IM 11/04/2014 Influenza Vaccine 18+ C.derived Pf Im 11/05/2014 Influenza Vaccine Nasal 02/19/2018,12/20/2015 Influenza Vaccine Quad Split 18 Yrs+ Im 02/19/2018 Influenza Vaccine Tri Split 4+ Im 10/20/2013, Influenza Vaccine Tri Split 4+ Pf Im 10/05/2011 Pneumococcal conjugate, unsp ecified formulation 09/16/2014 Family History Medical History Relation Name Comments Heart Disease Father Kendell Trivedi Heart Failure Father Kendell Trivedi High Cholesterol Father Kendell Trivedi Hypertension Father Kendell Trivedi Other Father Kendell Agudelocker pulmonary fi brosis Cancer Maternal Aunt 1 female Cancer Maternal Aunt 2 female Cancer Maternal Grandmother Damien Trivedi cervica l female Emphysema Mother Pat Trivedi Heart Disease Mother Pat Trivedi Hypertension Mother Pat Trivedi Lung Cancer Mother Pat Trivedi Small cell Thyroid Disease Mother Pat Trivedi Cancer Paternal Aunt x3 female Cancer Paternal Grandmother Vandana parker al female Diabetes Sister 1 lincoln Hypertension Sister 1 [place]incoln Stroke Sister 1 lincoln Thyroid Disease Sister 1 lincoln Diabetes Sister 2 rochelle Hypertension Sister 2 rochelle Thyroid Disease Sister 2 rochelle Osteoporosis Sister 5 Meka Thyroid Disease Sister 5 Meka Stroke Sister 6 Radha Thyroid Disease Sister 6 Radha Asthma Neg Hx Bronchitis Neg Hx Relation Name Status Comments Daughter Alive Father Kendell Trivedi Maternal Aunt 1 Maternal Aunt 2 Maternal Grandfather Maternal Grandmother Damien Trivedi Mother Pat Trivedi Paternal Aunt Paternal Grandfather Paternal Grandmother Vandana Chanel Sister 1 lincoln Alive Sister 2 rochelle Alive Sister 3 Alive Sister 4 Alive Sister 5 Meka Sister 6 Radha Son Alive Social History Tobacco Use Types Packs/Day Years Used Date Smoking Tobacco: Never Passive Smoke Exposure: Never Smokeless Tobacco: Never Tobacco Cessation:Counseling Given: No Alcohol Use Standard Drinks/Week Comments Yes 0 [...] often do you attend chur ch or islam services? 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 Not on file Not on file Last Filed Vital Signs Vital Sign Reading Time Taken Comments Blood Pressure 121/84 02/13/2024 3:13 PM PHYSICIAN ASSISTANT PRIMARY CARE Pulse 88 02/13/2024 3:03 PM PHYSICIAN ASSISTANT PRIMARY CARE Temperature 36.4 ??C (97.6 ??F) 11/26/2023 3:04 PM CD T Respiratory Rate 18 11/26/2023 3:04 PM CDT Oxygen Saturation 93% 02/13/2024 3:03 PM PHYSICIAN ASSISTANT PRIMARY CARE Inhaled Oxygen Concentration - - Weight 85.3 kg (188 lb) 02/13/2024 3:03 PM PHYSICIAN ASSISTANT PRIMARY CARE Height 160 cm (5' 3 ) 02/13/2024 3:03 PM PHYSICIAN ASSISTANT PRIMARY CARE Body Mass Index 33.3 02/13/2024 3:03 PM PHYSICIAN ASSISTANT PRIMARY CARE Plan of Treatment Upcoming Encounters Date Type Department Care Team (Late st Contact Info) Description 04/23/2024 1:20 PM CDT Office Visit [facility] Care [place] [address] [place] [phone] Jona Bravo MD [address] [place] [address] [address] [place] [phone] 08/25/2024 10:40 AM CDT Office Visit [facility] Primary Care [facility] [address] [place] [address] [address] [place] [phone] Jona Bravo MD [address] [place] [address] [address] [place] [phone] Health Maintenance Due Date Last Done Comments FIT/ DNA Q 3 YEARS (AUTO ORDER) 1977 FIT/FOBT Q 1 YEAR (AUTO ORDER) 1977 FIT-DNA Q 3 years 02/05/2004 FIT/FOBT Q 1 year 02/05/2004 Flex Sig/CT Colonography Q 5 years 02/05/2004 CERVICAL CANCER SCREENING 05/23/20162013 (Previously completed) RSV VACCINE (60+ or ) (1 - Risk 60-74 years 1-dose series) 2019 ZOSTER VACCINE (2 of 2) 12/08/2021 10/13/2021 INFLUENZA VACCINE (#1) 2023 4, 05/08/2022, 11/22/2020, Additional history exists BREAST CANCER SCREENING 09/09/2023 09/09/19 23, 09/08/2022, 07/08/2021, Additional history exists COVID-19 Vaccine (2023-2 5 season) 2023 01/08/2023, 10/13/2021, 12/12/2020, Additional history exists LDL CHOLESTEROL ANNUAL 02/09/2024 4, 08/18/2021, 04/29/2021, Additional history exists DIABETES ANNUAL FOOT EXAM 06/21/2024 06/22/2023 Traditional Medicare (ACO) A nnual Wellness Visit 06/22/2024 06/22/2023, 10/14/2021, 04/25/2018 DIABETES HBA1C Q 6 MONTHS 08/12/20242024, 12/24/2023, 10/17/2023, Additional history exists DIABETES ANNUAL RETINAL EXAM 09/27/2024, 07/07/2022, 04/19/2021, Additional history exists DIABETES MICROALBUMIN ANNUAL SCREEN 11/25/2024 11/26/2023, 08/06/2015 DIABETES: A1C (Auto Order) 02/12/202502/12, 12/24/2023, 10/17/2023, Additional history exists FLEX SIG/CT COLONOGRAPHY Q 5 YEARS (AUTO ORDER) 08/03/2025 08/03/2020, 08/03/2020 COLORECTAL CANCER SCREENING (AUTO ORDER) 08/03/2030 08/03/2020, 08/03/2020, 08/03/2020 COLORECTAL SCREENING 08/03/2030 08/03/2020, 08/03/2020, 08/03/2020, Additional history exists Colorectal Cancer Screening (AUTO ORDER) 08/03/2030 Colorectal Cancer Screening 08/03/2030 DTAP/TDAP/TD VACCINES (4 - T d or Tdap) 01/16/2031 01/16/2021, 02/05/2013, 09/14/2011 PNEUMOCOCCAL VACCINE 65+ YEARS Completed 0 02/10/2022, 05/30/2016, 09/16/2014, Additional history exists OSTEOPOROSIS SCREENING Completed , 09/09/2022, 09/08/2022, Additional history exists Medical Devices Implanted Type Area Associate Civil Engineer Device Identifier Shelf Expiration Date Model / Serial / Lot Lap Band Bladder Sling Procedures Procedure Name Priority Date/Time Associated Diagnosis Comments HEMOGLOBIN A1C Routine 02/13/2024 3:36 PM PHYSICIAN ASSISTANT PRIMARY CARE XR ABDOMEN 1 VW Routine 2024 11:27 AM PHYSICIAN ASSISTANT PRIMARY CARE Right ureteral stone CT ABDOMEN PELVIS WO CONTRAST Routine 2024 11:27 AM PHYSICIAN ASSISTANT PRIMARY CARE Kidney stones XR LUMBAR SPINE 4+ VW Routine 12/05/2023 8:54 AM CDT Midline low back pain, unspecified chronicity, unspecified whether sciatica present MICROALBUMIN/CREATI NINE RATIO, RANDOM UR Routine 11/26/2023 4:09 PM CDT DM type 2, goal HbA1c < 7% ([facility]) LIPID PANEL Routine 02/08/2023 11:08 AM PHYSICIAN ASSISTANT PRIMARY CARE Other hyperlipidemia MAMMO SCREEN BILAT W OR WO CAD Routine 09/08/2022 2:51 PM CDT XR DEXA BONE DENSITY AXIAL 1 OR MORE SITES Routine 09/20/2020 Menopause HX COLONOSCOPY Routine 08/03/2020 from Last 3 Months or Most Recently Relevant to Health Maintenance Results * HEMOGLOBIN A1C (02/13/2024 3:36 PM PHYSICIAN ASSISTANT PRIMARY CARE) ABSTRACTED HGB A1C 5.7 % [facility] Blood 02/13/2024 3:36 PM PHYSICIAN ASSISTANT PRIMARY CARE us Jona Bravo MD CHEMISTRY ORDERABLES Final Re sult [facility] CLIA# [id number] [address] [address] * XR ABDOMEN 1 VW (2024 11:27 AM PHYSICIAN ASSISTANT PRIMARY CARE) Anatomical Region Laterality Modality Abdomen Computed Radiogr aphy 2024 11:2 7 AM PHYSICIAN ASSISTANT PRIMARY CARE Impressions 2024 11:42 AM PHYSICIAN ASSISTANT PRIMARY CARE Findings/impression: The bowel gas pattern is nonobstructive. Multiple pelvic calcifications are noted which are best appreciated on the most recent CT. Small bilateral renal calculi are also noted. Narrative 2024 11:42 AM PHYSICIAN ASSISTANT PRIMARY CARE EXAM: XR ABDOMEN 1 VW DATE: 2024 HISTORY: Right ureteral stone COMPARISON: CT abdomen pelvis 2024. Procedure Note Louie Hood DO - 2024 EXAM: XR ABDOMEN 1 VW DATE: 2024 HISTORY: Right ureteral stone COMPARISON: CT abdomen pelvis 2024. Findings/impression: The bowel gas pattern is nonobstructive. Multiple pelvic calcifications are noted which are best appreciated on the most recent CT. Small bilateral renal calculi are also noted. us Pj Sepulveda MD DIAGNOSTIC IMAGING ORDERABLE S Final Result * CT ABDOMEN PELVIS WO CONTRAST (2024 11:27 AM PHYSICIAN ASSISTANT PRIMARY CARE) Anatomical Region Laterality Modality Abdomen Computed Tomogra phy 2024 11:1 8 AM PHYSICIAN ASSISTANT PRIMARY CARE Impressions 2024 11:45 AM PHYSICIAN ASSISTANT PRIMARY CARE IMPRESSION: Bilateral nonobstructing renal calculi measuring up to 5 mm. No obstructive uropathy appreciated. Narrative 2024 11:45 AM PHYSICIAN ASSISTANT PRIMARY CARE EXAM: CT ABDOMEN PELVIS WO CONTRAST DATE: 2024 HISTORY: Kidney stones COMPARISON: None. TECHNIQUE: Axial images with reconstructions. ?? Radiation dose reduction technique was utilized. CONTRAST: None FINDINGS: The lung bases are clear. Postoperative changes from gastric surgery are noted. The liver, gallbladder, pancreas, spleen and adrenal glands are normal appearing. There are bilateral nonobstructing renal calculi are identified measuring up to 5 mm in the left lower pole. Small simple appearing cysts are noted bilaterally. The largest measures up to 1.8 cm on the left. No obstructive uropathy is noted. The ureters and bladder appear otherwise normal. Numerous pelvic phleboliths are identified. The loops of bowel are normal. No free fluid free air or abnormal lymph nodes are noted. The abdominal wall, abdominal vasculature and osseous structures are grossly unremarkable except for mild degenerative changes noted in the lumbosacral spine. Procedure Note Louie Hood DO - 2024 EXAM: CT ABDOMEN PELVIS WO CONTRAST DATE: 2024 HISTORY: Kidney stones COMPARISON: None. TECHNIQUE: Axial images with reconstructions. Radiation dose reduction technique was utilized. CONTRAST: None FINDINGS: The lung bases are clear. Postoperative changes from gastric surgery are noted. The liver, gallbladder, pancreas, spleen and adrenal glands are normal appearing. There are bilateral nonobstructing renal calculi are identified measuring up to 5 mm in the left lower pole. Small simple appearing cysts are noted bilaterally. The largest measures up to 1.8 cm on the left. No obstructive uropathy is noted. The ureters and bladder appear otherwise normal. Numerous pelvic phleboliths are identified. The loops of bowel are normal. No free fluid free air or abnormal lymph nodes are noted. The abdominal wall, abdominal vasculature and osseous structures are grossly unremarkable except for mild degenerative changes noted in the lumbosacral spine. IMPRESSION: Bilateral nonobstructing renal calculi measuring up to 5 mm. No obstructive uropathy appreciated. Pj Sepulveda MD CT ORDERABLES Final Result * XR LUMBAR SPINE 4+ VW (12/05/2023 8:54 AM CDT) Anatomical Region Laterality Modality Spine Computed Radiogr aphy 12/05/2023 8:55 AM CDT Impressions 12/06/2023 7:42 PM CDT IMPRESSION: 1. Mild to moderate lumbar spondylosis. DICTATION LOCATION: Location 4 Narrative 12/06/2023 7:42 PM CDT EXAMINATION: XR LUMBAR SPINE 4+ VW HISTORY: See Diagnosis. ?? Midline low back pain, unspecified chronicity, unspecified whether sciatica present ?? FINDINGS: No prior study is available for comparison at the time of this dictation. Alignment is normal. Vertebral bodies are normal in height. 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 Procedure Note Patrick Madera MD - 12/06/2023 EXAMINATION: XR LUMBAR SPINE 4+ VW HISTORY: See Diagnosis. Midline low back pain, unspecified chronicity, unspecified whether sciatica present FINDINGS: No prior study is available for comparison at the time of this dictation. Alignment is normal. Vertebral bodies are normal in height. 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 IMPRESSION: 1. Mild to moderate lumbar spondylosis. DICTATION LOCATION: Location 4 Jona Bravo MD DIAGNOSTIC IMAGING ORDERABLES Final Result * MICROALBUMIN/CREATININE RATIO, RANDOM UR (11/26/2023 4:09 PM CDT) Creatinine, Urine 195 20 - 275 mg/dL [facility] MICROALBUMIN, URINE 2.8 See Note: mg/dL [facility] Comment: Reference Range: Reference Range Not established MICROALBUMIN/CREAT RATIO, UR 14 <30 mg/g creat [facility] Comment: The ADA defines abnormalities in albumin excretion as follows: Albuminuria Category ?Result (mg/g creatinine) Normal to Mildly increased ?? <30 Moderately increased ? 30-299 Severely increased ? > OR = 300 The ADA recommends that at least two of three specimens collected within a 3-6 month period be abnormal before considering a patient to be within a diagnostic category. Test Performed at: [facility] [address] [place], [place] ??[address] Law Nathan MD Urine URINE SPECIMEN OBTAINED BY CLEAN CATCH PROCEDURE / Unknown 11/26/2023 4:09 PM CDT 11/27/2023 6:37 AM CDT Jona Bravo MD URINE ORDERABLES Final Result [facility] [phone] [facility] [address] [place] [address] * LIPID PANEL (02/08/2023 11:08 AM PHYSICIAN ASSISTANT PRIMARY CARE) CHOLESTEROL 168 <200 mg/dL [facility] HDL 77 > OR = 50 mg/dL [facility] TRIGLYCERIDE 45 <150 mg/dL [facility] LDL CALCULATED 78 mg/dL (calc) [facility] Comment: Reference range: <100 Desirable range <100 mg/dL for primary prevention; ?? <70 mg/dL for patients with CHD or diabetic patients with > or = 2 CHD risk factors. LDL-C is now calculated using the Shannan calculation, which is a validated novel method providing better accuracy than the Friedewald equation in the estimation of LDL-C. Tai SANDHU et al. YONI. 2013;310(19): 8719-9604 (http://education.Floobits/faq/ILP783) CHOL/HDL RATIO 2.2 <5.0 (calc) [facility] TOTAL NON-HDL CHOL(LDL+VLDL) 91 <130 mg/dL (calc) [facility] Comment: For patients with diabetes plus 1 major ASCVD risk factor, treating to a non-HDL-C goal of <100 mg/dL (LDL-C of <70 mg/dL) is considered a therapeutic option. Test Performed at: [facility] [address] [place], [place] ??[phone] Law Nathan MD Blood 02/08/2023 11:0 8 AM PHYSICIAN ASSISTANT PRIMARY CARE 02/08/2023 11:09 AM PHYSICIAN ASSISTANT PRIMARY CARE Jona Bravo MD CHEMISTRY ORDERABLES Final Re sult Performing Organization Address [facility] Co de Phone Number [facility] [phone] [facility] [address] [place] [address] * MAMMO SCREEN BILAT W OR WO CAD (09/08/2022 2:51 PM CDT) Anatomical Region Laterality Modality Breast Bilateral Other Abstract Provider MAMMO ORDERABLES Edited Result - Final * XR DEXA BONE DENSITY AXIAL 1 OR MORE SITES (09/20/2020) Anatomical Region Laterality Modality Other us Jona Bravo MD DIAGNOSTIC IMAGING ORDERABLES Final Result * HX COLONOSCOPY (08/03/2020) us Abstract Provider GENERIC SURGICAL HISTORY Edite d Result - Final Performing Organization Address City/[facility]/ZIP Co de Phone Number EXTERNAL LAB from Last 3 Months or Most Recently Relevant to Health Maintenance Insurance MEDICARE PART A AND B BS BLUE PREFERRED RX PRIME THERAPEUT[employer] Commercial MEDICARE PART A AND B BCBS BLUE PREFERRED Advance Directives For more information, please contact: [phone] * Full Code (Latest Code Status on File) Date Activated Date Inactivated Comments 03/02/2017 8:56 PM 03/05/2017 9:44 PM * Full Code Date Activated Date Inactivated Comments 07/17/2014 10:57 AM 07/17/2014 4:49 PM * Full Code Date Activated Date Inactivated Comments 04/24/2014 2:54 PM 04/24/2014 8:53 PM * Full Code Date Activated Date Inactivated Comments 04/24/2014 11:13 AM 04/24/2014 2:54 PM Care Teams Clock Mechanic Relationship Specialty Start Date End Date Jona Bravo MD PCP - General Internal Medicine 11/25/15
--- OUTSIDE RECORDS SUMMARY | 2024-03-03 13:55 | XMS_ITS | Clinical Summary ---
Author Organization [facility] Address [address] [place] [id number] Phone Care Team Providers Care Motion Picture Commentator Name Role Phone Jona Bravo MD Primary Care Provider [phone] Allergies Active Allergy Reactions Criticality Noted Date Comments Codeine Itching,Hives High 06/16/2009 Reaction: Hives, ??, Reaction: Hives, ??, , Reaction: HIVES, ??, pruritus pruritus Doxycycline Other (see comments) 05/15/2017 Chest pain Chest pain Duloxetine Other (see comments) 01/10/2019 depn Gabapentin Other (see comments) Low 12/08/2015 Hair fell out Hair fell out Other reaction(s): Other (See comments) Hair fell out Hair fell out Hair fell out Iodinated Contrast Media Itching Low 05/31/2021 Patient had itching for three days after right shoulder joint steroid injection when iodine contrast dye was used. Levofloxacin Other (see comments) Low 06/24/2010 Pain in tendons of knees, arms, shoulders Reaction: OTHER, ??, Tendons hurt ??Pt takes ciprofloxacin without problems Other reaction(s): Other (See comments) Pain in [...] Reaction: Hives, ??, , Reaction: HIVES, ?? Other Other (see comments) 07/28/2020 Pregabalin Swelling Low 12/08/2015 Prochlorperazine Other (see comments) Low 07/28/2020 Reaction: OTHER, ?? Reaction: OTHER, ?? Reaction: OTHER, ?? Other reaction(s): Other (See comments) Reaction: OTHER, ?? Reaction: OTHER, ?? Suvorexant Other (see comments) Low 06/29/2016 Medications Medication Sig Dispensed Refills Start Date End Date Status albuterol HFA (PROVENTIL HFA) 108 (90 Base) MCG/ACT inhaler 90 mcg 02/17/2015 Active aspirin EC 81 MG EC tablet Take 81 mg by mouth once a week Active busPIRone (BUSPAR) 30 MG tablet Take 30 mg by mouth 2 (two) times a day 03/11/2020 Active tiZANidine (ZANAFLEX) 4 MG tablet Take 4 mg by mouth every 6 hours as needed 07/28/1999 Active pravastatin (PRAVACHOL) 40 MG tablet 09/14/2014 Active levothyroxine (SYNTHROID) 88 MCG tablet Take 88 mcg by mouth daily 09/14/2011 Active Magnesium Oxide 500 MG tablet Take 500 mg by mouth daily 07/23/2020 Active Eszopiclone 3 MG tablet TAKE 1 TABLET BY MOUTH ONCE DAILY AT NIGHT AT BEDTIME NEEDED FOR INSOMNIA 01/30/2022 Active cyanocobalamin (VITAMIN B-12) 1000 MCG/ML injection INJECT 1 ML SUBCUTANEOUSLY ONCE A WEEK 03/30/2023 Active potassium citrate (UROCIT-K) 10 MEQ (1080 MG) CR tablet Take 10 mEq by mouth in the morning and 10 mEq at noon and 10 mEq in the evening. 02/13/2023 Active Active Problems Problem Noted Date Diagnosed Date Nephrolithiasis 12/21/2020 Immunizations Name Administration Dates Next Due Hepatitis A 02/05/2005 Hepatitis B 11/05/2014 Influenza (IM) Preservative Free 02/19/2018,10/08,10/05/2011 Influenza Injectable Mdck Qu adrivalent Preservative 02/19/2018 Influenza LAIV (Nasal) 02/19/2018,12/20/2015 Influenza TIV (IM) 11/22/2020,,01/07/2019,12/14,09/16/2014,10/20/2013,12/18/2012 Influenza Vac Tissue-culture d Subunit Quadrivalent 11/05/2014 Influenza, Injectable, Quadr ivalent, Preservative Free 11/14/2019,01/07/2019,10/23/2016 Influenza, Quadrivalent 02/19/2018,12/20/2015 Influenza, Unspecified 12/15/2015,09/16/2014,02/2013 Moderna Sars-cov-2 Vaccination 10/13/2021 Pfizer Sars-cov-2 Vaccination 12/12/2020, 021,04/08/2020 Pneumococcal Conjugate 02/10/2022 Pneumococcal Conjugate 13-Valent 09/16/2014 Pneumococcal Polysaccharide 05/30/2016, 5 Pneumococcal, Unspecified 09/16/2014 Tdap 02/05/2013,09/14/2011 Zoster Recombinant 10/13/2021 Social History Tobacco Use Types Packs/Day Years Used Date Smoking Tobacco: Never Smokeless Tobacco: Never Tobacco Cessation:Counseling Given: Not Answered Sex and Gender Information Value Date Recorded Sex Assigned at Female 07/27/2020 1:49 PM MDT Gender Identity Female 07/27/2020 1:49 PM MDT Sexual Orientation Straight 07/27/2020 1: 49 PM MDT Last Filed Vital Signs Vital Sign Reading Time Taken Comments Blood Pressure 160/84 05/02/2023 3:00 PM CDT Pulse 76 05/02/2023 3:00 PM CDT Temperature 36.8 ??C (98.2 ??F) 07/28/2020 1:59 PM CD T Respiratory Rate - - Oxygen Saturation - - Inhaled Oxygen Concentration - - Weight 87.1 kg (192 lb) 05/02/2023 3:00 PM CDT Height 161.3 cm (5' 3.5 ) 05/02/2023 3:00 PM CD T Body Mass Index 33.48 05/02/2023 3:00 PM CDT Plan of Treatment Upcoming Encounters Date Type Department Care Team (Late st Contact Info) Description 05/28/2024 1:00 PM CDT Office Visit [facility] [address] [place] [address] Uche Vela MD [address] [place] [address] Health Maintenance Due Date Last Done Comments COVID-19 Vaccine (5 - 2022-2 4 season) 2023 10/13/2021, 12/12/2020, 04/29/2020, Additional history exists Influenza Vaccine (#1) 2023 , 11/14/2019, 10/19/2019, Additional history exists Pneumococcal PPSV23/PCV13 65 + Years / High and Highest Risk (4 of 4 - PPSV23 or PCV20) 02/05/2024 05/30/2016, 09/16/2014, 09/16/2014 Care Teams Motion Picture Commentator Relationship Specialty Start Date End Date Jona Bravo MD [address] [place] [address] PCP - General Internal Medicine 06/16/19
--- OUTSIDE RECORDS SUMMARY | 2024-03-03 13:55 | XMS_ITS | Encounter Summary ---
Author Organization [facility] Healthcare Address [address] [place] [address] Care Team Providers Care Ornament Setter Name Role Phone Jona Bravo MD Primary Care Provider + Desire Sams RN Unavailable Un available Pooja [place] LCSW Unavailable [phone] Roscoe Mccollum MD Unavailable [phone] Encounter Details Date Type Department Care Team (Late st Contact Info) Description 09/17/2020 Telephone [facility] [address] [place] [id number] Kim Gagnon, RT Social History Tobacco Use Types Packs/Day Years Used Date Smoking Tobacco: Never Smokeless Tobacco: Never Alcohol Use Standard Drinks/Week Comments No 0 (1 standard drink = 0.6 oz pur e alcohol) PHQ-2 Answer Date Recorded PHQ-2 Total Score (If total score is 3 or more points, staff should administer the PHQ-9) 4 09/12/2019 Comments No Sex and Gender Information Value Date Recorded Sex Assigned at Not on file Legal Sex Female 12:46 AM WEB APPLICATIONS ARCHITECT Gender Identity Female 04/08/2019 6:15 AM WEB APPLICATIONS ARCHITECT Sexual Orientation Straight 04/08/2019 6: 15 AM WEB APPLICATIONS ARCHITECT documented as of this encounter Plan of Treatment Not on file documented as of this encounter Visit Diagnoses Not on filedocumented in this encounter Care Teams Ornament Setter Relationship Specialty Start Date End Date Jona Bravo MD [address] [facility] [place] [address] PCP - General 05/05/16 Desire Sams, RN Registered Nurse 04/03/17 Pooja [place], [facility] [address] [facility] ([facility] Mailstop [phone] [place] [address] [facility] Outpatient Delivery Consultant 10/12/21 11/09/21 Roscoe Mccollum MD [address] [facility] [address] [address] Anesthesiologist Pain Management 12/21/21 documented as of this encounter
--- OUTSIDE RECORDS SUMMARY | 2024-03-03 13:55 | XMS_ITS | Clinical Summary ---
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Pt takes ciprofloxacin without problems Meperidine Hives High 06/16/2009 Prochlorperazine Other (See comments) Low 07/28/2020 other Suvorexant Other (See comments) Low 06/29/2016 Medications levothyroxine (SYNTHROID) 88 mcg tablet TAKE 1 TABLET BY MOUTH EVERY MORNING WITH WATER DON'T EAT FOR 30 MINS AFTER 90 0 09/14/19 12 Active albuterol HFA (PROVENTIL HFA,VENTOLIN HFA) 90 mcg/actuation inhaler inhale 2 puff by inhalation route every 4 - 6 hours as needed 1 Inhaler 0 02/17/[address] (CYMBALTA) 60 mg capsule Take 1 capsule (60 mg total) by mouth every morning 10/20/19 21 Active multivit-min/iro n/folic acid/K (BARIATRIC MULTIVITAMINS ORAL) Take 1 tablet/capsul e by mouth every morning Active buPROPion XL (WELLBUTRIN XL) 300 mg 24 hr tablet Take 1 tablet (300 mg total) by mouth every morning 10/31/19 22 Active FreeStyle Edyta 2 Sensor kit USE DIRECTED CHANGE EVERY 14 DAYS 12/28/19 22 Active zinc gluconate 30 mg tablet Take 30 mg by mouth nightly Active cholecalciferol (VITAMIN D-3) 5,000 unit capsule Take 1 capsule (5,000 Units total) by mouth daily 90 capsule 3 02/12/19 24 Active Gvoke HypoPen 1-Pack 1 mg/0.2 mL auto-injector INJECT DIRECTED IF SUGAR IS LESS THAN 50 04/02/19 24 Active insulin syringe-needle U-100 1 mL 31 gauge x 5/16 syringe USE DIRECTED WITH B-12 INJECTION 03/31/19 24 Active cyanocobalamin, vitamin B-12, 1,000 mcg/mL kit Inject 1,000 mcg as directed once a week On Sunday Active valACYclovir (VALTREX) 1 gram tablet Take 1 tablet (1,000 mg total) by mouth daily as needed Active amLODIPine (NORVASC) 2.5 mg tablet Take 1 tablet (2.5 mg total) by mouth every morning Active denosumab (PROLIA) 60 mg/mL syringe Inject 1 mL (60 mg total) under the skin every 6 (six) months Active aspirin 81 mg enteric coated tablet Take 1 tablet (81 mg total) by mouth once a week On Sunday evening 01/02/20 24 Active HYDROcodone-acet aminophen (NORCO) 5-325 mg per tabletIndication s:Pain Take 2 tablets by mouth every 6 (six) hours as needed for pain for up to 24 doses 24 tablet 01/07/20 24 Active temazepam (RESTORIL) 15 mg capsule TAKE 1 CAPSULE BY MOUTH NIGHTLY NEEDED FOR SLEEP 30 capsule 02/26/19 25 Active temazepam (RESTORIL) 15 mg capsule TAKE 1 CAPSULE BY MOUTH NIGHTLY NEEDED FOR SLEEP 30 capsule 01/28/20 24 025 Discontinued Active Problems Problem Noted Date Diagnosed Date Rheumatoid arthritis without rheumatoid factor, multiple sites 12/11/2023 Left knee pain 05/02/2023 Postmenopausal osteoporosis 06/21/2022 Reactive hypoglycemia 06/01/2022 Dysphagia 12/22/2021 Hyperparathyroidism 10/14/2021 Abnormal results of other endocrine function pasquale dies 10/14/2021 Hypoglycemia 10/10/2021 Chronic left shoulder pain 05/10/2021 Degenerative cervical spinal stenosis 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 08/2019 Cervical radiculopathy 09/12/2019 Cervicalgia 09/12/2019 S/P gastric bypass 06/19/2018 Overview (12/26/2019): 06/19/18 Laparoscopic Judy-en-Y Gastric Bypass Chronic right-sided low back pain without sciati ca 05/02/2018 Sacroiliitis (CMS/HCC) - Right 05/02/2018 DDD (degenerative disc disease), lumbar 05/03/19 Actinic keratosis 04/11/2018 Assessment & Plan (04/11/2018 2:20 PM BIOPSYCHOLOGIST): - Location/s: Face - Imiquimod Rx - Instructions discussed verbally and given in written form - Follow up in 6 weeks Chronic constipation 03/21/2018 Shingles 03/21/2018 Overview (12/26/2019): Overview: Recurrent outbreaks related to stress. 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 Patient is currently receiving Depakote IV. Spinal stenosis 06/06/2017 Overview (05/31/2021): Overview: In neck. Has used a fentanyl patch since 2003 Anxiety 05/25/2017 Major neurocognitive disorde r due to Alzheimer's disease, possible 05/25/2017 Acute pulmonary edema (CMS/HCC) 04/11/2017 MITTAL (dyspnea on exertion) 03/02/2017 Low vitamin D level 10/23/2016 Arthralgia 10/23/2016 Left arm numbness 10/23/2016 Fibromyalgia 10/23/2016 Dupuytren's contracture 10/23/2016 History of TIA (transient ischemic attack) 10/23 Morbid obesity with BMI of 45.0-49.9, adult 10/06 Amaurosis fugax, left eye 08/17/2016 Migraine without aura and wi thout status migrainosus, not intractable 08/17/2016 Cerebrovascular accident (CVA) 08/03/2016 Overview (12/26/2019): Overview: Overview: 07/20/16 MRI for vision changes: small to moderate sized old left basal ganglia infarct 07/27/16 carotid US okay, echocardiogram okay Overview: 07/20/16 MRI for vision changes: small to moderate sized old left basal ganglia infarct 07/27/16 carotid US okay, echocardiogram okay Pain of hand 05/16/2016 Ulnar neuropathy 05/16/2016 Abnormal glucose 12/08/2015 Gastroesophageal reflux disease without esophagi tis 12/08/2015 Overview (12/26/2019): Overview: Overview: Dx not confirmed by EGDs: 12/10/09 EGD: LA class 1 esophagitis; bx: no Velasquez's 09/15/14 EGD: no visual evidence of Velasquez's 02/09/16 EGD: no GERD or Velasquez's Overview: Dx not confirmed by EGDs: 12/10/09 EGD: LA class 1 esophagitis; bx: no Velasquez's 09/15/14 EGD: no visual evidence of Velasquez's Hypokalemia 12/08/2015 Vitamin D deficiency 12/08/2015 Severe episode of recurrent major depressive disorder, without psychotic features 12/08/2015 Hemochromatosis carrier 09/30/2015 Overview (12/26/2019): Overview: Overview: C282Y heterozygote, blush of iron on liver biopsy Overview: C282Y heterozygote, blush of iron on liver biopsy Sinusitis 05/03/2015 Overview (05/12/2016): Sinusitis, unspecified chronicity, unspecified location Atopic rhinitis 05/03/2015 Overview (05/12/2016): Allergic rhinitis, unspecified allergic rhinitis type Pelvic pain in female 08/06/2014 Overview (12/26/2019): Overview: Overview: Onset immediately after vaginal hysterectomy 07/17/14 Overview: Onset immediately after vaginal hysterectomy 07/17/14 S/P laparoscopic hysterectomy 07/17/2014 Abnormal uterine bleeding 02/23/2014 Migraine 12/16/2013 Overview (05/11/2016): Migraine MEREDITH (obstructive sleep apnea) 12/16/2013 Overview (05/11/2016): Obstructive sleep apnea Diabetes mellitus 12/16/2013 Overview (05/11/2016): Diabetes mellitus Osteoarthritis 07/16/2013 Overview (05/11/2016): Osteoarthritis Assessment & Plan (08/19/2017 12:01 AM CDT): Continue Celebrex MIDDLETON (nonalcoholic steatohepatitis) 06/21/2013 Overview (12/11/2023): Nonalcoholic steatohepatitis (MIDDLETON) 05/16/01 liver biopsy: MIDDLETON with no fibrosis 08/20/03 liver biopsy: MIDDLETON with focal periportal fibrosis and focal zone 3 PSF, stage 2 12/10/09 liver biopsy: steatosis with no inflammation, no fibrosis after lap banding 08/06/14 Fibroscan: 7.7 and 8.8 kPa 09/15/14 liver biopsy: steatosis, no ballooning, not steatohepatitis, focal portal fibrosis, stage 1 09/09/15 Fibroscan CAP 341 and 349; E 6.2 and 9.7 kPa 08/03/16 Fibroscan CAP 293, 352; E 7.3, 13.6 kPa 06/07/17 Fibroscan CAP 317, 332; E 11.4, 6.9 kPa 11/28/17 CT w/contrast for hematuria: normal appearing liver, lap band device noted 03/21/18 Fibroscan CAP 330, 375; E 10.7, 9.9 kPa 06/19/18 liver biopsy (intraop during gastric bypass): steatosis, no fibrosis (after about 15 lb wt loss pre-op) 04/03/19 Fibroscan CAP 224, 263; LSM 5.3, 8.9 kPa 08/18/21 Fibroscan CAP 160, LSM 12.0 kPa 06/15/22 Fibroscan CAP 233, LSM 6.9 kPa Calculus of kidney 06/21/2013 Overview (05/10/2016): Kidney stones Depression 06/21/2013 Overview (05/10/2016): Depression Assessment & Plan (08/19/2017 12:02 AM CDT): Continue Wellbutrin Hypothyroidism 05/23/2013 Overview (05/10/2016): Hypothyroid Assessment & Plan (08/19/2017 12:05 AM CDT): Continue levothyroxine Sleep apnea 05/23/2013 Overview (05/10/2016): Sleep apnea Assessment & Plan (08/19/2017 12:00 AM CDT): Patient has home CPAP at bedside which she can wear q.h.s.. Hypertension 05/23/2013 Overview (05/10/2016): Hypertension Assessment & Plan (08/19/2017 12:01 AM CDT): Slightly elevated at this time. Will continue home medications with hold parameters. Will continue to monitor. Asthma 05/23/2013 Overview (05/10/2016): Asthma Assessment & Plan (08/19/2017 12:02 AM CDT): Continue p.r.n. albuterol Degenerative disc disease, cervical 05/23/2013 Overview (05/13/2016): Degenerative disc disease, cervical Osteoarthritis of cervical spine 08/09/2012 Overview (05/10/2016): Cervical spondylosis Fibrositis 05/29/2012 Overview (05/11/2016): Fibromyalgia Hyperlipidemia 05/29/2012 Overview (05/11/2016): Hyperlipidemia Assessment & Plan (08/19/2017 12:02 AM CDT): Continue aspirin and statin Hypersomnia with sleep apnea 06/06/2011 Overview (05/10/2016): Hypersomnia with sleep apnea Headache 03/08/2011 Overview (05/10/2016): Headache Adiposity 01/02/2011 Overview (05/10/2016): Obesity Carpal tunnel syndrome 01/02/2011 Overview (05/11/2016): Carpal tunnel syndrome, bilateral Insomnia secondary to chronic pain 01/02/2011 Overview (05/11/2016): Insomnia Assessment & Plan (08/19/2017 12:01 AM CDT): Patient states she was on Ambien however due to memory troubles she is trying to avoid this medication. Patient states because of her headache has not been sleeping well. Will order 1 time dose of Ambien this evening. Colon polyps 11/25/2009 Overview (12/26/2019): 12/10/09 colonoscopy: no polyps, repeat in 5 years because of fair prep 09/15/14 colonoscopy: no polyps, repeat in 5 years. Overview: 12/10/09 colonoscopy: no polyps, repeat in 5 years because of fair prep 09/15/14 colonoscopy: no polyps Velasquez's esophagus 11/25/2009 Overview (05/31/2021): Overview: Dx not confirmed by EGDs: 12/10/09 EGD: LA class 1 esophagitis; bx: no Velasquez's 09/15/14 EGD: no visual evidence of Velasquez's 02/09/16 EGD: no GERD or Velasquez's 08/03/20 EGD: no GERD or Velasquez's Persistent migraine aura wit hout cerebral infarction and without status migrainosus, not intractable Encounters Date Type Department Care Team Description 02/26/2024 [facility]) - [facility] [address] [place] [address] [place] [address] Bradley FabyMS rakel 02/18/2024 1:15 PM BIOPSYCHOLOGIST Office Visit [facility] [address] [place] [phone] Kendrick Hernandez MD Psychophysiological insomnia (Primary Dx); MEREDITH (obstructive sleep apnea); Hypersomnia with sleep apnea 01/17/2024 3:40 PM BIOPSYCHOLOGIST Office Visit [facility]) - [facility] [address] [place] [phone] Caren Caputo MD S/P insertion of hypoglossal nerve stimulator (Primary Dx); MEREDITH (obstructive sleep apnea) 01/07/2024 1:23 PM BIOPSYCHOLOGIST - 01/07/2024 6:24 PM BIOPSYCHOLOGIST Emergency [facility] Emergency Department [address] [place] [address] Ayla Ambrose MD Galicia, Edgar E., MD Post-operative pain (Primary Dx); Secondary hypertension; Acute nonintractable headache, unspecified headache type Discharge Disposition: Discharge to home or self care 01/01/2024 8:30 AM BIOPSYCHOLOGIST - 01/01/2024 11:00 AM BIOPSYCHOLOGIST Surgery [facility] Operating Room [id number] [place] [phone] Caren Caputo MD INSPIRE HYPOGLOSSAL NERVE STIMULATOR IMPLANT 01/01/2024 8:21 AM BIOPSYCHOLOGIST Anesthesia Event [facility] Operating Room [address] [place] [id number] Evette Huddleston Jr., MD Barnhart, Lynlee Jo, NP 01/01/2024 6:29 AM BIOPSYCHOLOGIST - 01/01/2024 1:16 PM BIOPSYCHOLOGIST Hospital Encounter [facility] Operating Room [address] [place] [id number] Caren Caputo MD MEREDITH (obstructive sleep apnea) (Primary Dx) Discharge Disposition: Discharge to home or self care 12/26/2023 Telephone [facility] [address] [place] [address] [address] [place] [address] Kendrick Hernandez MD 12/26/2023 Telephone [facility] [address] [place] [address] [address] [place] [address] Kendrick Hernandez MD 12/24/2023 9:45 AM BIOPSYCHOLOGIST Pre-Admission Testing [facility] Pre Anesthesia Testing [address] [place] [id number] Type 2 diabetes mellitus with other specified complication, unspecified whether nursing home insulin use (HCC) (Primary Dx); Pre-op testing from Last 3 Months Immunizations Name Administration Dates Next Due Hep A, Adult 02/05/2005 Heplisav-b (Hepatitis B) 11/05/2014 Influenza LAIV (Nasal) 02/19/2018,12/20/2015 Influenza, Quadrivalent, Zuly l Culture-based MDCK, Antibiotic Free, Intramuscular 02/19/2018 Influenza, Quadrivalent, Spl it, Intramuscular 02/19/2018,12/20/2015 Influenza, Quadrivalent, Spl it, Preservative Free, Intramuscular 11/14/2019,01/07/2019,10/23/2016 Influenza, Trivalent, Cell Culture-based MDCK, Preservative Free, Antibiotic Free, Intramuscular 11/05/2014 Influenza, Trivalent, IM (MDV) 1,10/19/2019,12/15/2015,09/16,10/20/2013,12/18/2012 Influenza, Trivalent, Preser vative Free, Intramuscular 11/04/2014,10/05/2011 Pfizer SARS-CoV-2 Monovalent Vaccination (12+ Yrs) PURPLE 12/12/2020,04/29/2020,04/08/2020 Pneumococcal Conjugate PCV 13 09/16/2014 Pneumococcal Conjugate, Unspecified 09/16/2014 Pneumococcal Polysaccharide PPV23 05/30/2016 Pneumococcal, Unspecified 09/16/2014 Tdap 02/05/2013,09/14/2011 Surgical History Surgery Date Site/Laterality Comments OTHER SURGICAL HISTORY lap band surg GASTRIC BYPASS 02/05/2007 - 02/05/2008 Gastric bypass HERNIA REPAIR 02/05/1985 - 1986 Hernia repair KNEE ARTHROSCOPY 02/05/2009 - 2010 Arthroscopy knee APPENDECTOMY 02/05/2001 - 2002 Appendectomy OTHER SURGICAL HISTORY D&C OTHER SURGICAL HISTORY Menorrhagia: D&C x 4 - benign OTHER SURGICAL HISTORY MART 3: LEEP OTHER SURGICAL HISTORY Torn rotator cuff: Rotator cuff repair OTHER SURGICAL HISTORY Menorrhagia: Endometrial ablation OTHER SURGICAL HISTORY Stress urinary incontinence, f/u: Repair of stitch in bladder and vagina OTHER SURGICAL HISTORY Stress urinary incontinence: Abdominal bladder repair OTHER SURGICAL HISTORY Postmenopausal bleeding: Hysteroscopy, D&C - insufficient tissue sample CERVICAL SPINE SURGERY Surgery, cervical spine OTHER SURGICAL HISTORY 4 DIFFRENT DISK REMOVED HYSTERECTOMY OOPHORECTOMY ESOPHAGOGASTRODUODENOSCOPY w/sclerotherapy to STOMA 08/21/22 & 10/16/22 OTHER SURGICAL HISTORY 10/16/2023 Drug induced sleep endoscopy eval. KIDNEY STONE SURGERY 11/06/2023 - 12/06/2023 Medical History Medical History Date Comments Hx Other Medical uterine ablatio n 2001 Asthma Asthma Gastroesophageal reflux disease GERD Hyperlipidemia Hyperlipidemia Disorder of thyroid Thyroid dise ase Depression Depression Hx Other Medical 1977 left thigh tumo r removed Spinal stenosis spinal stenosis Hx Other Medical 1978 meningitis Kidney disorder KIDNEY DISEASE Hx Other Medical stomach ulcers Anxiety disorder Anxiety Hx Other Medical lap band Hx Other Medical RTC REPAIR Hx Other Medical 1998 MART 3 Hx Other Medical 2012 Torn rotator cu ff Hx Other Medical Hernia Hx Other Medical 1991 Stress urinary incontinence, f/u Hx Other Medical 1991 Stress urinary incontinence Hx Other Medical Postmenopausal bleeding; Comments: RED 02/03/2014 - Hx Other Medical sleep apnea; Co mments: CHRIS 05/18/2014 - Hx Other Medical migraines; Comm ents: CHRIS 05/18/2014 - Hx Other Medical osteoarthritis; Comments: CHRIS 05/18/2014 - Hx Other Medical fibromyalgia; C omments: CHRIS 05/18/2014 - Stroke (HCC) Diverticulitis of colon Nonalcoholic fatty liver dis ease without nonalcoholic steatohepatitis (MIDDLEOTN) Kidney stone Type 2 diabetes mellitus (HCC) D iabetes type 2 Cataract Arthritis osteo arthritis Fibromyalgia Migraines Shingles Hx Other Medical meningitis x2 Hypertension Hypertension, tr eated buy PCP Neck pain Low back pain Sleep apnea Motion sickness Hypothyroidism Anemia MEREDITH (obstructive sleep apnea) History of shingles 10/2023 Family History Medical History Relation Name Comments Hypertension Daughter Hypertension Father Lung disease Father Lung Disease; C ause of : Lung Disease Other Father pulmonary fibro sis; /Pulmonary fibrosis; Cause of : Pulmonary fibrosis Uterine cancer Maternal Grandmother Cance r -uterine; Breast cancer Mother Hypertension Mother Lung cancer Mother Cancer -lung; C ause of : Cancer -lung/Cancer -lung; /Cancer, lung; Cause of : Cancer, lung/Cancer, lung; Cancer Other 2 Family history of Cancer; Depression Other 3 Family history of Depression; Diabetes Other 4 Family history of Diabetes mellitus; Heart disease Other 5 Family history of Heart disease; Hypertension Other 6 Family history of Hypertension; Migraines Other 7 Family history of Migraine; Stroke Other 8 Family history of Stroke; Lung disease Other 9 Family history of Lung Disease; Fibromyalgia Other 10 Family history of Fibromyalgia; Other Other 11 Family history of Cancer, endometrial; MGM, PGM, Paternal aunts (2) Other Other 12 Family history of arthritis, fibromyalgia - sisters; Hypertension Sister Stroke Sister stroke; Hypertension Son Relation Name Status Comments Daughter Father (Age 67) Maternal Grandmother Mother (Age 72) Other 1 Alive Other 2 Other 3 Other 4 Other 5 Other 6 Other 7 Other 8 Other 9 Other 10 Other 11 Other 12 Sister Son Social History Tobacco Use Types Packs/Day Years Used Date Smoking Tobacco: Never Smokeless Tobacco: Never Tobacco Cessation:Counseling Given: Not Answered Alcohol Use Standard Drinks/Week Comments No 0 (1 standard drink = 0.6 oz pur e alcohol) Social Connection and Isolat ion Panel [NHANES] Answer Date Recorded In a typical week, how many times do you talk on the phone with family, friends, or neighbors? More than three times a week 10/13/2021 How often do you get togethe r with friends or relatives? More than three times a week 10/13/2021 How often do you attend chur ch or anabaptism services? Never 10/13/2021 Do you belong to any clubs o r organizations such as methodist groups, unions, fraternal or athletic groups, or school groups? No 10/13/2021 How often do you attend meet ings of the clubs or organizations you belong to? Never 10/13/2021 Are you , , di vorced, , never , or living with a partner? 10/13/2021 AUDIT-C Answer Date Recorded Q1: How often do you have a drink containing alc ohol? Monthly or less 01/01/2024 Q2: How many drinks containi ng alcohol do you have on a typical day when you are drinking? 1 or 2 01/01/2024 Q3: How often do you have si x or more drinks on one occasion? Never 01/01/2024 Overall Financial Resource Strain (CARDIA) Answe r Date Recorded How hard is it for you to pa y for the very basics like food, housing, medical care, and heating? Not hard at all 10/13/2021 PHQ-2 Answer Date Recorded PHQ-2 Total Score (If total score is 3 or more points, staff should administer the PHQ-9) 0 05/02/2023 Hunger Vital Sign Answer Date Recorded Within the past 12 months, y ou worried that your food would run out before you got the money to buy more. Never true 10/14/19 22 Within the past 12 months, t he food you bought just didn't last and you didn't have money to get more. Never true 10/13/2021 PRAPARE - Transportation Answer Date Re corded In the past 12 months, has l ack of transportation kept you from medical appointments or from getting medications? No 09/2021 In the past 12 months, has l ack of transportation kept you from meetings, work, or from getting things needed for daily living? No 10/13/2021 Housing Stability Vital Sign Answer Avery e Recorded In the last 12 months, was t here a time when you were not able to pay the mortgage or rent on time? No 10/13/2021 In the last 12 months, how many places have you lived? 1 10/13/2021 In the last 12 months, was t here a time when you did not have a steady place to sleep or slept in a prison (including now)? No 10/13/2021 Personal Safety Answer Date Recorded Have you ever been in or are you currently in a harmful physical or emotional relationship or is someone making you feel afraid or unsafe? Denies 01/07/2024 Comments No Sex and Gender Information Value Date Recorded Sex Assigned at Not on file Legal Sex Female 12:46 AM BIOPSYCHOLOGIST Gender Identity Female 04/08/2019 6:15 AM BIOPSYCHOLOGIST Sexual Orientation Straight 04/08/2019 6: 15 AM BIOPSYCHOLOGIST Occupation Industry Job Start Date Job End Date On Disability Not on file Not on file Not on file Obstetrics History Para Term AB IAB SAB Ectopic Multiple Livin g Live Births 2 2 2 Date Outcome GA Total Labor Labor/2nd/3rd Weight Sex Type Anes PTL Glory A1 A5 Name Clin Term Term Last Filed Vital Signs Vital Sign Reading Time Taken Comments Blood Pressure 131/81 02/18/2024 1:01 PM BIOPSYCHOLOGIST Pulse 93 02/18/2024 1:01 PM BIOPSYCHOLOGIST Temperature 36.2 ??C (97.2 ??F) 01/07/2024 10:[address] Respiratory Rate 18 01/07/2024 6:00 PM BIOPSYCHOLOGIST Oxygen Saturation 97% 02/18/2024 1:01 PM BIOPSYCHOLOGIST Inhaled Oxygen Concentration - - Weight 85.3 kg (188 lb) 02/18/2024 1:01 PM BIOPSYCHOLOGIST Height 165.1 cm (5' 5 ) 02/18/2024 1:01 PM BIOPSYCHOLOGIST Body Mass Index 31.28 02/18/2024 1:01 PM BIOPSYCHOLOGIST Plan of Treatment Health Maintenance Due Date Last Done Comments Albumin Creatinine Ratio, Urine 1959 Colon Cancer Screening-Colonoscopy 1959 Hepatitis C Screening 1959 Dilated Eye Exam 1959 Foot Exam 1959 Zoster Vaccine (2 of 2) 12/08/2021 10/13/2021 Lipid Panel 10/10/2022 10/10/2021, 10/06, 07/27/2016, Additional history exists Breast Cancer Screening-Mammogram 09/09/2023 09/08/2022, 07/08/2021, 11/24/2019, Additional history exists Covid-19 Vaccine (5 - 2023-2 5 season) 2023 10/13/2021, 12/12/2020, 04/29/2020, Additional history exists Influenza Vaccine (#1) 2023 , 11/14/2019, 10/19/2019, Additional history exists Well Visit 65+ 02/05/2024 Depression Screening 05/01/2024 05/02/2023, 05/02/2023, 09/12/2019 Hemoglobin A1C 06/22/2024 12/24/2023, 10/10/2021 Osteoporosis Screening-Bone Density Scan 09/08/2024 09/08/2022, 09/08/2021, 09/20/2020, Additional history exists Fall Risk Assessment 12/31/2024 01/01/2024 eGFR 01/06/2025 01/07/2024, 12/06, 02/08/2023, Additional history exists Pneumococcal vaccine 65+ (3 of 3 - PPSV23 or PCV20) 02/10/2027 02/10/2022, 05/30/2016, 09/16/2014, Additional history exists DTaP/Tdap/Td Vaccine (4 - Td or Tdap) 01/16/2031 01/16/2021, 02/05/2013, 09/14/2011 Medical Devices Implanted Type Area Presentation Designer Device Identifier Shelf Expiration Date Model / Serial / Lot [employer] 180-223 Contour 6fr 26cm Large Inner Lumen Low Profile Bladder Lei Taper Latex Free - [id number] Implanted:Qty: 1 on 04/23/2018 by Christopher Her MD at [facility] Stent Right: Ureter [employer] 11/19/2020 180-223 / / [id number] Plates Screws N/A: Neck [employer] Lead Neurostimulator Sleep Apnea Thoracic Permanent Respiratory Sensing Inspire 43cm [id number] - [id number] - [id number] Implanted:Qty: 1 on 01/01/2024 by Caren Caputo MD at [facility] N/A: Chest [employer] 07/21/2026 [id number] / [id number] / [employer] Inspire 3 Electrode Cuff Tunnel José Lead Neurostimulator Sterile 4063 - [id number] - [id number] Implanted:Qty: 1 on 01/01/2024 by Caren Caputo MD at [facility] N/A: Neck [employer] 01/22/2026 4063 / [id number] / [employer] Inspire Generator 3028 - [id number] - [id number] Implanted:Qty: 1 on 01/01/2024 by Caren Caputo MD at [facility] N/A: Chest [employer] 07/22/2026 3028 / [id number] / Procedures Procedure Name Priority Date/Time Associated Diagnosis Comments POCT GLUCOSE DEVICE Routine 01/07/2024 4 :33 PM BIOPSYCHOLOGIST CTA HEAD NECK W WO CONTRAST ED 01/07/2024 4:19 PM BIOPSYCHOLOGIST TROPONIN T HIGH-SENSITIVITY 4-HR Timed 01/07/2024 3:24 PM BIOPSYCHOLOGIST TROPONIN T HIGH-SENSITIVITY 2-HOUR STAT 01/07/2024 1:55 PM BIOPSYCHOLOGIST XR CHEST PA LATERAL 2 VIEWS ED 01/07/2024 11:29 AM BIOPSYCHOLOGIST EGFR STAT 01/07/2024 11:11 AM BIOPSYCHOLOGIST DIFFERENTIAL AUTO STAT 01/07/2024 11: 11 AM BIOPSYCHOLOGIST TROPONIN T HIGH-SENSITIVITY SERIES (BASELINE, 2HR, 4HR, 6HR) STAT 01/07/2024 11:11 AM BIOPSYCHOLOGIST COMPREHENSIVE METABOLIC PANEL STAT 01/07/2024 11:11 AM BIOPSYCHOLOGIST CBC WITH AUTO DIFFERENTIAL STAT 01/07/2024 11:11 AM BIOPSYCHOLOGIST ECG 12-LEAD STAT 01/07/2024 11:02 AM BIOPSYCHOLOGIST POCT GLUCOSE DEVICE Routine 01/01/2024 1 1:34 AM BIOPSYCHOLOGIST XR NECK SOFT TISSUE ED Urgent/IP Urgent 01/01/2024 11:19 AM BIOPSYCHOLOGIST XR CHEST 1 VIEW ED Urgent/IP Urgent 01/01/2024 11:19 AM BIOPSYCHOLOGIST POCT GLUCOSE DEVICE Routine 01/01/2024 1 0:54 AM BIOPSYCHOLOGIST MA AN ELECTIVE ENDOTRACHEAL AIRWAY Routine 01/01/2024 9:06 AM BIOPSYCHOLOGIST INSPIRE HYPOGLOSSAL NERVE STIMULATOR IMPLANT - INSERTION 01/01/2024 8:20 AM BIOPSYCHOLOGIST MEREDITH (obstructive sleep apnea) Special Needs DR CAPUTO REQUESTS 150 MINS FOR CASE/10-14 DAYS POST OP POCT GLUCOSE DEVICE Routine 01/01/2024 7 :21 AM BIOPSYCHOLOGIST EGFR Routine 12/24/2023 11:05 AM BIOPSYCHOLOGIST Pre-op testing BASIC METABOLIC PANEL Routine 12/24/2023 11:05 AM BIOPSYCHOLOGIST Pre-op testing DIFFERENTIAL AUTO Routine 12/24/2023 10: 56 AM BIOPSYCHOLOGIST Pre-op testing CBC WITH AUTO DIFFERENTIAL Routine 12/24/2023 10:56 AM BIOPSYCHOLOGIST Pre-op testing HEMOGLOBIN A1C Routine 12/24/2023 10:56 AM BIOPSYCHOLOGIST Type 2 diabetes mellitus with other specified complication, unspecified whether nursing home insulin use (HCC) Pre-op testing URINALYSIS AND REFLEX TO MICROSCOPIC AND CULTURE Routine 12/24/2023 10:56 AM BIOPSYCHOLOGIST Pre-op testing DEXA AXIAL AND FOREARM BONE DENSITY SCAN Schedule Routine, Read Routine (OP Routine) 09/08/2022 1:34 PM CDT Hyperparathyroidis m (HCC) SCREENING MAMMOGRAM BILATERAL W DANILO Schedule Routine, Read Routine (OP Routine) 09/08/2022 1:01 PM CDT Encounter for screening mammogram for malignant neoplasm of breast LIPID PANEL STAT 10/10/2021 1:52 PM CDT from Last 3 Months or Most Recently Relevant to Health Maintenance Results * POCT glucose (01/07/2024 4:33 PM BIOPSYCHOLOGIST) Glucose, POC 80 70 - 199 mg/dL Blood 01/07/2024 4:33 PM BIOPSYCHOLOGIST 01/07/2024 4:33 PM BIOPSYCHOLOGIST Mars Montano MD LAB POCT ORDERABLES - DEVICE Final Result [facility] ([place]) 1 [facility] Department [place] [address] * CTA Head Neck W WO Contrast (01/07/2024 4:19 PM BIOPSYCHOLOGIST) Anatomical Region Laterality Modality Head and Neck N/A Computed Tomogra phy 01/07/2024 4:43 PM BIOPSYCHOLOGIST Narrative 01/07/2024 5:02 PM BIOPSYCHOLOGIST EXAM DESCRIPTION: ?? CTA HEAD NECK W WO CONTRAST REASON FOR STUDY: ?? headache neck pain aftyer implant ?? Ambulate to triage c/o had an implant put in for sleep apnea on Sunday last week and has had high blood pressure since then. States has had a headache on right side since this weekend. States talked to primary doctor today who told her to come in. ? TECHNIQUE: Axial images were first obtained through the brain without contrast. ?? Axial dynamic scanning technique with dynamic contrast enhancement through the intracranial and extracranial carotid and vertebral arteries. Multiplanar reconstruction. All stenosis measurements are based on NASCET criteria. ??3D MIP images rendered on scanning unit and reviewed at time of interpretation. Automated exposure control was used as a dose optimization technique for this examination. CONTRAST TYPE/DOSE: ?? 100mL of IOVERSOL 350 MG IODINE/ML INTRAVENOUS SYRINGE ?? injected via ?? intravenous COMPARISON: Brain MRI 04/27/2017 FINDINGS: BRAIN No acute intracranial hemorrhage. No evidence of a large vascular territory acute infarction or CT evidence of vasogenic edema. No midline shift or mass effect. There is a chronic infarct within the left basal ganglia including the caudate which extends into the left johnson radiata. ??There is ex vacuo dilatation of the left lateral ventricle. ?? The ventricles are normal in size. Brain volume appears within normal limits for patient age. ?? White matter attenuation appears within normal limits. ? The calvarium is normal without acute fracture. ?? Status post bilateral lens replacement. Otherwise the orbits are unremarkable. ?? The paranasal sinuses are well aerated. ?? The mastoid air cells are well aerated. ?? INTRACRANIAL VESSELS ANTERIOR CIRCULATION: ?? The proximal anterior and middle cerebral arteries are patent. ??There is no significant focal stenosis of the anterior or middle cerebral artery branches. ??There is mild luminal irregularity of the left middle cerebral artery M1 branch (series 9, image 107) which most likely represents intracranial atherosclerotic disease. ??No evidence of aneurysm. POSTERIOR CIRCULATION: ?? The distal vertebral arteries are patent. ??The basilar artery is patent. ??The posterior cerebral arteries are patent. ??No aneurysm or focal stenosis is identified. ?? CAROTID CTA RIGHT CAROTIDS: ?? No internal, external or common carotid stenosis. LEFT CAROTIDS: ?? No internal, external or common carotid stenosis. ?? LEFT VERTEBRAL: ?? Patent. No significant stenosis. No dissection. RIGHT VERTEBRAL: ?? Patent. No significant stenosis. No dissection. AORTIC ARCH: ?? Normal three-vessel origin. Bilateral subclavian arteries are patent. No dissection. NECK SOFT TISSUE: ?? There is an implantable medical generator within the right chest wall which per provided clinical history represents a hypoglossal nerve stimulator device. ?? There are expected postsurgical changes of recent device placement with a small amount of fluid, likely seroma, adjacent to the generator. ??There is also mild inflammatory changes in the right submandibular space along the path of the lead also likely representing expected postoperative changes. ??The superior lead abuts the base of tongue. ??Right thyroid nodule measures 2.6 cm. INCLUDED LUNGS: ?? No acute abnormality. OTHER: ?? Postoperative changes of anterior cervical discectomy and fusion at C4-C7. ??There is ossification of the posterior longitudinal ligament in the cervical spine which is most prominent at C6-C7 where there is likely [id number] spinal canal stenosis. IMPRESSION: BRAIN: No acute intracranial process identified. Chronic left basal ganglia infarct. INTRACRANIAL CTA: 1. ?? No large vessel occlusion or significant intracranial stenosis identified. 2. ?? Mild luminal irregularity of the left middle cerebral artery M1 branch without stenosis likely represents intracranial atherosclerotic disease. CAROTID CTA: No significant stenosis of the carotid or vertebral arteries. Expected postsurgical changes of recent right hypoglossal nerve stimulator device placement. A right thyroid nodule measures 2.6 cm. ??Thyroid ultrasound is recommended if this has not recently been performed. THIS IS AN ELECTRONICALLY VERIFIED FINAL REPORT 01/07/2024 5:02 PM - Electronically signed by ??Nigel Mei M.D. MM: MM D: ??01/07/2024 5:02 PM T: ??01/07/2024 5:02 PM Report ID: [id number] Reading Location: ??[id number] Procedure Note Nigel Mei MD - 01/07/2024 EXAM DESCRIPTION: CTA HEAD NECK W WO CONTRAST REASON FOR STUDY: headache neck pain aftyer implant Ambulate to triage c/o had an implant put in for sleep apnea on and has had high blood pressure since then. [facility] has had a headacheon right side since this weekend. [facility] talked to primary doctor today whotold her to come in. TECHNIQUE: Axial images were first obtained through the brain without contrast. Axial dynamic scanning technique with dynamic contrast enhancement throughthe intracranial and extracranial carotid and vertebral arteries. Multiplanar reconstruction. All stenosis measurements are based on NASCET criteria. 3D MIP images rendered on scanning unit and reviewed at time of interpretation. Automated exposure control was used as a dose optimization technique forthis examination. CONTRAST TYPE/DOSE: 100mL of IOVERSOL 350 MG IODINE/ML INTRAVENOUSSYRINGE injected via intravenous COMPARISON: Brain MRI 04/27/2017 FINDINGS: BRAIN No acute intracranial hemorrhage. No evidence of a large vascularterritory acute infarction or CT evidence of vasogenic edema. No midline shift ormass effect. There is a chronic infarct within the left basal ganglia including thecaudate which extends into the left johnson radiata. There is ex vacuo dilatationof the left lateral ventricle. The ventricles are normal in size. Brainvolume appears within normal limits for patient age. White matter attenuation appears within normal limits. The calvarium is normal without acute fracture. Status post bilaterallens replacement. Otherwise the orbits are unremarkable. The paranasalsinuses are well aerated. The mastoid air cells are well aerated. INTRACRANIAL VESSELS ANTERIOR CIRCULATION: The proximal anterior and middle cerebralarteries are patent. There is no significant focal stenosis of the anterior ormiddle cerebral artery branches. There is mild luminal irregularity of the left middle cerebral artery M1 branch (series 9, image 107) which most likely represents intracranial atherosclerotic disease. No evidence of aneurysm. POSTERIOR CIRCULATION: The distal vertebral arteries are patent. The basilar artery is patent. The posterior cerebral arteries are patent. No aneurysm or focal stenosis is identified. CAROTID CTA RIGHT CAROTIDS: No internal, external or common carotid stenosis. LEFT CAROTIDS: No internal, external or common carotid stenosis. LEFT VERTEBRAL: Patent. No significant stenosis. No dissection. RIGHT VERTEBRAL: Patent. No significant stenosis. No dissection. AORTIC ARCH: Normal three-vessel origin. Bilateral subclavian arteriesare patent. No dissection. NECK SOFT TISSUE: There is an implantable medical generator within [facility] which per provided clinical history represents a hypoglossalnerve stimulator device. There are expected postsurgical changes of recentdevice placement with a small amount of fluid, likely seroma, adjacent to the generator. There is also mild inflammatory changes in the rightsubmandibular space along the path of the lead also likely representing expected postoperative changes. The superior lead abuts the base of tongue. Right thyroid nodule measures 2.6 cm. INCLUDED LUNGS: No acute abnormality. OTHER: Postoperative changes of anterior cervical discectomy and fusionat C4-C7. There is ossification of the posterior longitudinal ligament inthe cervical spine which is most prominent at C6-C7 where there is likely [id number] spinal canal stenosis. IMPRESSION: BRAIN: No acute intracranial process identified. Chronic left basal ganglia infarct. INTRACRANIAL CTA: 1. No large vessel occlusion or significant intracranial stenosis identified. 2. Mild luminal irregularity of the left middle cerebral artery [id number] without stenosis likely represents intracranial atherosclerotic disease. CAROTID CTA: No significant stenosis of the carotid or vertebral arteries. Expected postsurgical changes of recent right hypoglossal nervestimulator device placement. A right thyroid nodule measures 2.6 cm. Thyroid ultrasound isrecommended if this has not recently been performed. THIS IS AN ELECTRONICALLY VERIFIED FINAL REPORT 01/07/2024 5:02 PM - Electronically signed by Nigel Mei M.D. MM: MM Report ID: [id number] Reading Location: [place] [address] Ayla Ambrose MD IMG CT PROCEDURES F inal Result * Troponin T high-sensitivity 4-hour (01/07/2024 3:24 PM BIOPSYCHOLOGIST) Trop T hs <6 <=14 ng/L Comment: Interpretive Data For further hscTnT resources including the diagnostic algorithm and an aid in interpretation, copy and paste this link: [email or web address]://nrl.[email or web address]/show/[email or web address] Current Interpretive Data last revised 2019. Trop T hs delta 0 ng/L [facility] ([place]) Trop T hs interp Insignificant [facility] ([place]) Blood 01/07/2024 3:24 PM BIOPSYCHOLOGIST 01/07/2024 3:26 PM BIOPSYCHOLOGIST Ayla Ambrose MD LAB BLOOD ORDERABLE S Final Result [facility] ([place]) 1 [facility] Department [place] [address] * Troponin T high-sensitivity 2-hour (01/07/2024 1:55 PM BIOPSYCHOLOGIST) Trop T hs <6 <=14 ng/L Comment: Interpretive Data For further hscTnT resources including the diagnostic algorithm and an aid in interpretation, copy and paste this link: [email or web address]://nrl.[email or web address]/show/[email or web address] Current Interpretive Data last revised 2019. Trop T hs delta 0 ng/L [facility] ([place]) Trop T hs interp Insignificant [facility] ([place]) Blood 01/07/2024 1:55 PM BIOPSYCHOLOGIST 01/07/2024 1:56 PM BIOPSYCHOLOGIST us Ayla Ambrose MD LAB BLOOD ORDERABLE S Final Result [facility] [place]) 1 [facility] Department [place] [address] * XR Chest PA Lateral 2 Views (01/07/2024 11:29 AM BIOPSYCHOLOGIST) Anatomical Region Laterality Modality Body, Chest N/A Computed Radiogr aphy 01/07/2024 11:3 7 AM BIOPSYCHOLOGIST Narrative 01/07/2024 11:41 AM BIOPSYCHOLOGIST EXAM DESCRIPTION: XR CHEST PA LATERAL 2 VIEWS REASON FOR STUDY: chest pain ?? Ambulate to triage c/o had an implant put in for sleep apnea on Sunday last week and has had high blood pressure since then. States has had a headache since this weekend. States talked to primary doctor today who told her to come in. ? TECHNIQUE: 2 ??radiographic view(s) of the chest. COMPARISON: 01/01/2024 FINDINGS: LUNGS: ??No focal consolidation or pleural effusion. No pneumothorax. ?? HEART/MEDIASTINUM: ??Cardiac silhouette normal in size. Mediastinal and hilar contours appear normal. LINES/TUBES: ??None. BONES: ??No acute osseous abnormality. Thoracic degenerative changes with multilevel bridging marginal osteophytes. Incompletely imaged cervical fusion hardware. Unchanged right chest stimulator battery pack with lead extending toward the neck out of the field of view. IMPRESSION: No acute cardiopulmonary abnormality. THIS IS AN ELECTRONICALLY VERIFIED FINAL REPORT 01/07/2024 11:41 AM - Electronically signed by ??Destinee Pichardo M.D. AG: AG D: ??01/07/2024 11:41 AM T: ??01/07/2024 11:41 AM Report ID: [id number] Reading Location: ??[id number] Procedure Note Destinee Pichardo MD - 01/07/2024 EXAM DESCRIPTION: XR CHEST PA LATERAL 2 VIEWS REASON FOR STUDY: chest pain Ambulate to triage c/o had an implant put in for sleep apnea on and has had high blood pressure since then. States has had a headache since this weekend. States talked to primary doctor today who told her tocome in. TECHNIQUE: 2 radiographic view(s) of the chest. COMPARISON: 01/01/2024 FINDINGS: LUNGS: No focal consolidation or pleural effusion. No pneumothorax. HEART/MEDIASTINUM: Cardiac silhouette normal in size. Mediastinal andhilar contours appear normal. LINES/TUBES: None. BONES: No acute osseous abnormality. Thoracic degenerative changes with multilevel bridging marginal osteophytes. Incompletely imaged cervicalfusion hardware. Unchanged right chest stimulator battery pack with lead extending towardthe neck out of the field of view. IMPRESSION: No acute cardiopulmonary abnormality. THIS IS AN ELECTRONICALLY VERIFIED FINAL REPORT 01/07/2024 11:41 AM - Electronically signed by Destinee Pichardo M.D. AG: ZITA Report ID: [id number] Reading Location: [id number] Ayla Ambrose MD IMG XR PROCEDURES F inal Result * Troponin T high-sensitivity series (baseline, 2hr, 4hr, 6hr) (01/07/2024 11:11 AM BIOPSYCHOLOGIST) Trop T hs <6 <=14 ng/L Comment: Interpretive Data For further hscTnT resources including the diagnostic algorithm and an aid in interpretation, copy and paste this link: https://nrl.testcatalog.org/show/hsTrop Current Interpretive Data last revised 2019. Blood 01/07/2024 11:1 1 AM BIOPSYCHOLOGIST 01/07/2024 11:14 AM BIOPSYCHOLOGIST Ayla Ambrose MD LAB BLOOD ORDERABLE S Final Result [facility] [place] 1 [facility] Department [place] [address] * eGFR (01/07/2024 11:11 AM BIOPSYCHOLOGIST) eGFR >90 >=60 mL/min/1. 73 m2 Comment: Interpretive Data Reference Interval Normal ?>/= 90 mL/min/1.73m2 Mildly decreased* ? 60 - 89 mL/min/1.73m2 Mildly to moderately decreased ?45 - 59 mL/min/1.73m2 Moderately to severely decreased ??30 - 44 mL/min/1.73m2 Severely decreased ?15 - 29 mL/min/1.73m2 Kidney Failure ?< 15 ??mL/min/1.73m2 *Relative to young adult level Estimated glomerular filtration rate is determined by the 2020 CKD-EPI equation recommended by the National Kidney Foundation (A Unifying Approach to GFR Estimation: Recommendations of the NKF-ASK Task Force on Reassessing the Inclusion of Race in Diagnosing Kidney Disease, JASN 2020). The CKD-EPI equation should not be used for patients with unstable renal function and has not been validated in children and those over 70. Current interpretive data was last reviewed 2020. Blood 01/07/2024 11:1 1 AM BIOPSYCHOLOGIST 01/07/2024 11:14 AM BIOPSYCHOLOGIST us Ayla Ambrose MD LAB BLOOD ORDERABLE S Final Result [facility] ([place]) [address] Department [place] [address] * Differential, auto (01/07/2024 11:11 AM BIOPSYCHOLOGIST) Neutrophil abs 3.3 1.5 - 6.5 K/cumm Imm gran abs 0.0 0.0 - 0.1 K/cumm [facility] ([place]) Lymphocyte abs 2.0 0.8 - 3.3 K/cumm [facility] ([place]) Monocyte abs 0.6 0.2 - 0.8 K/cumm [facility] ([place]) Eosinophil abs 0.1 0.0 - 0.5 K/cumm [facility] ([place]) Basophil abs 0.0 0.0 - 0.1 K/cumm [facility] ([place]) Neutrophil pct 55.4 % [facility] ([place]) Comment: Interpretive Data Percent cell count reference ranges are not reported, since discordance with absolute values may lead to misinterpretation of CBC data. Current Interpretive Data was last revised on 2017. Imm gran pct 0.2 % [facility] ([place]) Comment: Interpretive Data Percent cell count reference ranges are not reported, since discordance with absolute values may lead to misinterpretation of CBC data. Current Interpretive Data was last revised on 2017. Lymphocyte pct 32.8 % [facility] ([place]) Comment: Interpretive Data Percent cell count reference ranges are not reported, since discordance with absolute values may lead to misinterpretation of CBC data. Current Interpretive Data was last revised on 2017. Monocyte pct 9.8 % [facility] ([place]) Comment: Interpretive Data Percent cell count reference ranges are not reported, since discordance with absolute values may lead to misinterpretation of CBC data. Current Interpretive Data was last revised on 2017. Eosinophil pct 1.5 % [facility] ([place] Comment: Interpretive Data Percent cell count reference ranges are not reported, since discordance with absolute values may lead to misinterpretation of CBC data. Current Interpretive Data was last revised on 2017. Basophil pct 0.3 % [facility] ([place]) Comment: Interpretive Data Percent cell count reference ranges are not reported, since discordance with absolute values may lead to misinterpretation of CBC data. Current Interpretive Data was last revised on 2017. Blood 01/07/2024 11:1 1 AM BIOPSYCHOLOGIST 01/07/2024 11:15 AM BIOPSYCHOLOGIST Ayla Ambrose MD LAB BLOOD ORDERABLE S Final Result [facility] ([place] 1 [facility] [place] [address] * (ABNORMAL) CBC with auto differential (01/07/2024 11:11 AM BIOPSYCHOLOGIST) WBC 5.9 3.8 - 9.9 K/cumm Hgb 14.2 11.9 - 15.5 g/dL [facility]) Hct 41.0 35.6 - 45.5 % [facility]) Plt 161 150 - 400 K/cumm [facility] ([place]) MPV 9.3 9.1 - 12.3 fL [facility] ([place]) RBC 3.90 3.90 - 5.20 M/cumm [facility] ([place]) MCV 105.1(H) 81.3 - 96.4 fL [facility] ([place] MCH 36.4(H) 27.1 - 33.3 pg [facility] ([place]) MCHC 34.6 32.3 - 35.7 g/dL [facility] ([place]) RDW CV 12.1 11.1 - 14.9 % [facility] RDW SD 47.0 35.7 - 48.1 fL [facility] ([place]) NRBC abs 0.00 0.00 - 0.01 K/cumm [facility] ([place]) Blood (Blood, Venous) 01/07/2024 11:11 AM BIOPSYCHOLOGIST 01/07/2024 11:15 AM BIOPSYCHOLOGIST us Ayla Ambrose MD LAB BLOOD ORDERABLE S Final Result [facility] ([place] 1 [facility] [place] [address] * (ABNORMAL) Comprehensive metabolic panel (01/07/2024 11:11 AM BIOPSYCHOLOGIST) Pathologist [facility] Sodium 141 135 - 145 mmol/L Potassium, pl 3.8 3.3 - 4.9 mmol/L [facility] Chloride 104 97 - 110 mmol/L [facility] CO2 27 22 - 32 mmol/L [facility] ([place]) Anion gap 10 2 - 15 mmol/L [facility] ([place]) BUN 26(H) 6 - 25 mg/dL [facility] ([place]) Creatinine 0.63 0.60 - 1.10 mg/dL [facility] ([place]) Glucose 100 70 - 199 mg/dL [facility] ([place]) Comment: Interpretive Data Fasting glucose >/= 126 mg/dl is diagnostic for diabetes. ?? Fasting is defined as no caloric intake for at least 8 hours. Fasting glucose between 100 mg/dl to 125 mg/dl is diagnostic of prediabetes. In a patient with classic symptoms of hyperglycemia or hyperglycemic crisis, a random glucose >/= 200 mg/dl is diagnostic for diabetes. In the absence of unequivocal hyperglycemia, results should be confirmed by repeat testing. The classification and Diagnosis of Diabetes Diabetes Care 2021; 46: S19-S40. Current interpretive data was last revised 2022. Calcium 9.7 8.5 - 10.3 mg/dL [facility]) Bilirubin, total 0.4 0.1 - 1.2 mg/dL [facility] ([place]) Protein, pl 7.1 6.5 - 8.5 g/dL [facility] ([place]) Albumin 4.6 3.5 - 5.0 g/dL [facility] ([place]) Alk phos 69 40 - 130 Units/L [facility] ([place]) ALT 45 7 - 45 Units/L [facility] AST 47(H) 10 - 45 Units/L [facility] ([place]) Blood 01/07/2024 11:1 1 AM BIOPSYCHOLOGIST 01/07/2024 11:14 AM BIOPSYCHOLOGIST us Ayla Ambrose MD LAB BLOOD ORDERABLE S Final Result [facility] ([place] 1 [facility] Department [place] [address] * ECG 12 lead (01/07/2024 11:02 AM BIOPSYCHOLOGIST) 01/07/2024 11:0 2 AM BIOPSYCHOLOGIST Narrative [facility] - 01/08/2024 1:40 AM BIOPSYCHOLOGIST Vent Rate: 76 bpm RR Interval: 786 msec MA Interval: 142 msec QRS Duration: 84 msec QT Interval: 371 msec QTC Interval: 401 msec P-R-T [place]: 48 - 22 - 67 degrees IMPRESSION: SINUS RHYTHM MINIMAL VOLTAGE CRITERIA FOR LVH, CONSIDER NORMAL VARIANT ??[MEETS CRITERIA IN ONE OF: R(aVL), S(V1), R(V5), R(V5/V6)+S(V1)] NONSPECIFIC T-WAVE ABNORMALITY BORDERLINE ECG Electronically Signed By: Supa Ernandez MD Ayla Ambrose MD ECG ORDERABLES Fin al Result Performing Organization Address City/[facility]/ZIP Co de Phone Number [facility] * POCT glucose (01/01/2024 11:34 AM BIOPSYCHOLOGIST) Glucose, POC 131 70 - 199 mg/dL Blood 01/01/2024 11:3 4 AM BIOPSYCHOLOGIST 01/01/2024 11:34 AM BIOPSYCHOLOGIST Caren Caputo MD LAB POCT ORDERABLES - DEVICE Final Result Performing Organization Address [facility] Co de Phone Number [facility] [address] Department [place] [address] * XR Neck Soft Tissue (01/01/2024 11:19 AM BIOPSYCHOLOGIST) Anatomical Region Laterality Modality Head and Neck N/A Computed Radiogr aphy 01/01/2024 12:0 1 PM BIOPSYCHOLOGIST Impressions 01/01/2024 12:01 PM BIOPSYCHOLOGIST Postoperative change of hypoglossal nerve stimulator as described. Electronically signed by: Octavia Chavez M.D. Narrative 01/01/2024 12:01 PM BIOPSYCHOLOGIST EXAMINATION: XR NECK SOFT TISSUE HISTORY: lateral xray for hypoglossal nerve stimulator ORDER DATE: 01/01/2024 11:00 AM COMPARISON: None. FINDINGS: A generator is partially seen in the right chest with electrode extending along the right anterolateral neck with leads looped at the submandibular space. ??Adjacent soft tissue gas is seen consistent postoperative change. There has been previous anterior discectomy and instrumented fusion at C4-C7 with anterior plate, screws and disc spaces with osseous integration. Procedure Note Octavia Chavez MD - 01/01/2024 EXAMINATION: XR NECK SOFT TISSUE HISTORY: lateral xray for hypoglossal nerve stimulator ORDER DATE: 01/01/2024 11:00 AM COMPARISON: None. FINDINGS: A generator is partially seen in the right chest with electrode extending along the right anterolateral neck with leads looped at the submandibular space. Adjacent soft tissue gas is seen consistent postoperative change. There has been previous anterior discectomy and instrumented fusion at C4-C7 with anterior plate, screws and disc spaces with osseous integration. IMPRESSION: Postoperative change of hypoglossal nerve stimulator as described. Electronically signed by: Octavia Chavez M.D. Caren Caputo MD IMG XR PROCEDURES Kym l Result * XR Chest 1 Vw Portable (01/01/2024 11:19 AM BIOPSYCHOLOGIST) Anatomical Region Laterality Modality Body, Chest N/A Computed Radiogr aphy 01/01/2024 11:3 6 AM BIOPSYCHOLOGIST Impressions 01/01/2024 11:36 AM BIOPSYCHOLOGIST No pneumothorax seen. Electronically signed by: Man Becerra M.D. Narrative 01/01/2024 11:36 AM BIOPSYCHOLOGIST EXAMINATION: XR CHEST 1 VIEW HISTORY: The patient is a 63-year-old female who has had a hypoglossal nerve stimulator implants. TECHNIQUE: AP portable view of the chest. FINDINGS: The lead of the hypoglossal nerve stimulator is seen overlying the right hemithorax. ??No pneumothorax is seen. ??Lungs clear. Cardiovascular structures unremarkable. Procedure Note Man Becerra MD - 01/01/2024 EXAMINATION: XR CHEST 1 VIEW HISTORY: The patient is a 63-year-old female who has had a hypoglossal nerve stimulator implants. TECHNIQUE: AP portable view of the chest. FINDINGS: The lead of the hypoglossal nerve stimulator is seen overlying the right hemithorax. No pneumothorax is seen. Lungs clear. Cardiovascular structures unremarkable. IMPRESSION: No pneumothorax seen. Electronically signed by: Man Becerra M.D. Caren Caputo MD IMG XR PROCEDURES Kym l Result * POCT glucose (01/01/2024 10:54 AM BIOPSYCHOLOGIST) Glucose, POC 122 70 - 199 mg/dL Blood 01/01/2024 10:5 4 AM BIOPSYCHOLOGIST 01/01/2024 10:54 AM BIOPSYCHOLOGIST Caren Caputo MD LAB POCT ORDERABLES - DEVICE Final Result Performing Organization Address City/State/[facility] Phone Number [facility] [address] [facility] Department [place] [address] * MA AN ELECTIVE ENDOTRACHEAL AIRWAY (01/01/2024 9:06 AM BIOPSYCHOLOGIST) Narrative Elham Barber AA - 01/01/2024 9:06 AM BIOPSYCHOLOGIST Elham Barber AA ? 01/01/2024 ??9:07 AM Airway Patient location: OR Urgency: elective Indications for airway management: anesthesia Difficult airway: no Staff: Supervising provider: Evette Huddleston Jr., MD Placed by: AA: Elham Barber AA Emergent airway documentation: Risks and benefits discussed: yes Consent obtained: yes Consent given by: patient Airway prep: Preoxygenated: yes Patient position: sniffing Mask difficulty assessment: 1 - vent by mask Spontaneous ventilation during airway: absent Sedation level during airway: GA Final airway details: Final airway type: endotracheal airway Tube type: ETT ETT size: 7.0 mm Cuffed: yes Technique used for successful ETT placement: video laryngoscopy Devices/Methods used in placement: stylet Insertion site: oral Blade type: Jb Video blade type: Serra Blade size: 3 Cormack-Lehane (video): grade I - full view of glottis Cuff volume: 6 mL Cuff inflated with: air ETT to lips: 21 cm Placement verified by: auscultation and CO2 detection Airway secured with: silk tape Number of attempts: 1 Additional comments: Easy bag mask. Easy and atraumatic intubation with cuff to MOP. ETT secured left PSR. Dentition intact as preop. us Evette Huddleston Jr., MD ANESTHESIA ORDER RYAN Final Result * POCT glucose (01/01/2024 7:21 AM BIOPSYCHOLOGIST) Glucose, POC 89 70 - 199 mg/dL Blood 01/01/2024 7:21 AM BIOPSYCHOLOGIST 01/01/2024 7:21 AM BIOPSYCHOLOGIST us Caren Caputo MD LAB POCT ORDERABLES - DEVICE Final Result Performing Organization Address City/State/[facility] [place] Phone Number [facility] [address] Department [place] [address] * eGFR (12/24/2023 11:05 AM BIOPSYCHOLOGIST) eGFR >90 >=60 mL/min/1. 73 m2 Comment: Interpretive Data Reference Interval Normal ?>/= 90 mL/min/1.73m2 Mildly decreased* ? 60 - 89 mL/min/1.73m2 Mildly to moderately decreased ?45 - 59 mL/min/1.73m2 Moderately to severely decreased ??30 - 44 mL/min/1.73m2 Severely decreased ?15 - 29 mL/min/1.73m2 Kidney Failure ?< 15 ??mL/min/1.73m2 *Relative to young adult level Estimated glomerular filtration rate is determined by the 2020 CKD-EPI equation recommended by the National Kidney Foundation (A Unifying Approach to GFR Estimation: Recommendations of the NKF-ASK Task Force on Reassessing the Inclusion of Race in Diagnosing Kidney Disease, JASN 2020). The CKD-EPI equation should not be used for patients with unstable renal function and has not been validated in children and those over 70. Current interpretive data was last reviewed 2020. Blood 12/24/2023 11:0 5 AM BIOPSYCHOLOGIST 12/24/2023 11:05 AM BIOPSYCHOLOGIST Ivet Hoyos NP LAB BLOOD ORDERABLES Final Res ult [facility] [id number] Department of Laboratories [place] [phone] * Basic metabolic panel (12/24/2023 11:05 AM BIOPSYCHOLOGIST) Sodium 145 135 - 145 mmol/L Potassium, pl 4.0 3.3 - 4.9 mmol/L [facility] Chloride 109 97 - 110 mmol/L [facility] CO2 28 22 - 32 mmol/L [facility] CH Anion gap 8 2 - 15 mmol/L [facility] BUN 19 6 - 25 mg/dL [facility] Creatinine 0.68 0.60 - 1.10 mg/dL [facility] Glucose 72 70 - 199 mg/dL [facility] Comment: Interpretive Data Fasting glucose >/= 126 mg/dl is diagnostic for diabetes. ?? Fasting is defined as no caloric intake for at least 8 hours. Fasting glucose between 100 mg/dl to 125 mg/dl is diagnostic of prediabetes. In a patient with classic symptoms of hyperglycemia or hyperglycemic crisis, a random glucose >/= 200 mg/dl is diagnostic for diabetes. In the absence of unequivocal hyperglycemia, results should be confirmed by repeat testing. The classification and Diagnosis of Diabetes Diabetes Care 2021; 46: S19-S40. Current interpretive data was last revised 2022. Calcium 9.1 8.5 - 10.3 mg/dL [facility] Blood 12/24/2023 11:0 5 AM BIOPSYCHOLOGIST 12/24/2023 11:05 AM BIOPSYCHOLOGIST Ivet Hoyos NP LAB BLOOD ORDERABLES Final Res ult [facility] [address] Department [place] [address] * Differential, auto (12/24/2023 10:56 AM BIOPSYCHOLOGIST) Neutrophil abs 3.1 1.5 - 6.5 K/cumm Imm gran abs 0.0 0.0 - 0.1 K/cumm [facility] Lymphocyte abs 1.6 0.8 - 3.3 K/cumm [facility] Monocyte abs 0.6 0.2 - 0.8 K/cumm [facility] Eosinophil abs 0.1 0.0 - 0.5 K/cumm [facility] Basophil abs 0.0 0.0 - 0.1 K/cumm [facility] Neutrophil pct 57.4 % [facility] Comment: Interpretive Data Percent cell count reference ranges are not reported, since discordance with absolute values may lead to misinterpretation of CBC data. Current Interpretive Data was last revised on 2017. Imm gran pct 0.4 % [facility] Comment: Interpretive Data Percent cell count reference ranges are not reported, since discordance with absolute values may lead to misinterpretation of CBC data. Current Interpretive Data was last revised on 2017. Lymphocyte pct 29.0 % [facility] Comment: Interpretive Data Percent cell count reference ranges are not reported, since discordance with absolute values may lead to misinterpretation of CBC data. Current Interpretive Data was last revised on 2017. Monocyte pct 11.1 % [facility] Comment: Interpretive Data Percent cell count reference ranges are not reported, since discordance with absolute values may lead to misinterpretation of CBC data. Current Interpretive Data was last revised on 2017. Eosinophil pct 1.7 % [facility] Comment: Interpretive Data Percent cell count reference ranges are not reported, since discordance with absolute values may lead to misinterpretation of CBC data. Current Interpretive Data was last revised on 2017. Basophil pct 0.4 % [facility] Comment: Interpretive Data Percent cell count reference ranges are not reported, since discordance with absolute values may lead to misinterpretation of CBC data. Current Interpretive Data was last revised on 2017. Blood 12/24/2023 10:5 6 AM BIOPSYCHOLOGIST 12/24/2023 11:08 AM BIOPSYCHOLOGIST us Ivet Hoyos [employer]IC[employer] LAB BLOOD ORDERABLES Final Res ult Performing Organization Address [facility] Co de Phone Number [facility] [address] Department [place] [address] * Urinalysis reflex to microscopic and culture Urine, clean voided (12/24/2023 10:56 AM BIOPSYCHOLOGIST) Color, ur Yellow Yellow Clarity, ur Clear Clear [facility] Specific gravity, ur 1.017 1.003 - 1.030 [facility] CH pH, urine 6.0 [facility] Comment: Interpretive Data ? Urine pH is affected by diet, medications, systemic acid-base disturbances, and renal tubular function. ??pH may affect urinary stone formation. ??For example, urine pH below 6.0 may help reduce the tendency for calcium phosphate stones and pH greater than 6.0 may reduce the tendency for uric acid stone formation. Source: [facility] [employer] Current Interpretive Data was last revised on 2017 Protein, ur ql Negative Negative [facility] Glucose, ur ql Negative Negative [facility] Ketones, ur Negative Negative [facility] Bilirubin, ur Negative Negative [facility] Blood, ur Negative Negative [facility] Urobilinogen, ur <2.0 <2.0 mg/dL [facility] Nitrite, ur Negative Negative [facility] Leukocyte esterase, ur Negative Negative [facility] UA reflex comment Reflex conditions for microscopic UA and culture not met. [facility] Urine, clean voided 12/24/2023 10:56 AM BIOPSYCHOLOGIST 12/24/2023 12:24 PM BIOPSYCHOLOGIST us Caren Caputo MD LAB MICROBIOLOGY - GEN ERAL ORDERABLES Final Result Performing Organization Address [facility]/ZIP Co de Phone Number [facility] [address] Department [place] [address] * (ABNORMAL) CBC with auto differential (12/24/2023 10:56 AM BIOPSYCHOLOGIST) WBC 5.4 3.8 - 9.9 K/cumm Hgb 12.7 11.9 - 15.5 g/dL [facility] Hct 38.8 35.6 - 45.5 % [facility] Plt 159 150 - 400 K/cumm [facility] MPV 9.4 9.1 - 12.3 fL [facility] RBC 3.58(L) 3.90 - 5.20 M/cumm [facility] MCV 108.4(H) 81.3 - 96.4 fL [facility] MCH 35.5(H) 27.1 - 33.3 pg [facility] MCHC 32.7 32.3 - 35.7 g/dL [facility] RDW CV 12.3 11.1 - 14.9 % [facility] RDW SD 49.0(H) 35.7 - 48.1 fL [facility] NRBC abs 0.00 0.00 - 0.01 K/cumm [facility] Blood 12/24/2023 10:5 6 AM BIOPSYCHOLOGIST 12/24/2023 11:08 AM BIOPSYCHOLOGIST Ivet Hoyos NP LAB BLOOD ORDERABLES Final Res ult Performing Organization Address City/State/[facility] Phone Number [facility] [address] Department [place] [address] * Hemoglobin A1c (12/24/2023 10:56 AM BIOPSYCHOLOGIST) [facility] Hgb A1C 5.0 4.0 - 5.6 % Estimated Average Glucose 97 mg/dL [facility] Comment: The ADA recommends reporting an estimated Average Glucose (eAG) with all Hemoglobin A1c results using the equation derived from a study of 507 normal and diabetic adults. ??Minority populations were underrepresented and children were not included. ?? (Diabetes Care 31:2003-3883, 2008). ??The eAG is not equivalent to a fasting glucose. Blood 12/24/2023 10:5 6 AM BIOPSYCHOLOGIST 12/24/2023 11:08 AM BIOPSYCHOLOGIST Ivet Hoyos NP LAB BLOOD [place] [address] [address] Department [place] [address] * Dexa Axial and Forearm Bone Density Scan (09/08/2022 1:34 PM CDT) Anatomical Region Laterality Modality Wrist, Body N/A Other 09/09/2022 6:09 AM CDT Narrative 09/09/2022 6:11 AM CDT EXAM DESCRIPTION: DEXA AXIAL AND FOREARM BONE DENSITY SCAN REASON FOR STUDY: 62 y/o ?? year old ??F ??with given history of: ?? Hyperparathyroidism. ??Postmenopausal status. ??Osteoporosis. ? Presentation Designer/Model: [employer] SL ([id number]) CLINICAL INFORMATION: Current height: ??63.5 ??inches ? Maximum height: ??64 ??inches ? Weight: ??188.5 ??pounds Risk factors: ??Prior fracture and rheumatoid arthritis COMPARISON: None available. ??Dissimilar scan types or analysis methods precludes assessment for calculating a significant change. FINDINGS: AP LUMBAR SPINE L1-L4: Total BMD is 1.076 g/cm2 T-score is 0.3 LEFT HIP: Total BMD is 0.915 g/cm2 T-score is -0.2 Femoral neck BMD is 0.731 g/cm2 T-score is -1.1 ??Left forearm BMD in the radius 33% is 0.491 g/cm2 T-score is -3.4 ?? FRAX: FRAX not reported due to prior hip or vertebral fracture. ?? IMPRESSION: Osteoporosis. REFERENCE: Bone mineral density: ? Normal (T-score above or = -1.0) ? Low bone mass ??(T-score between -1.0 and -2.5) replaces the previously used term osteopenia ? Osteoporosis (T-score = or below -2.5) Medical evaluation for secondary causes of low bone mineral density may be appropriate. FRAX is a World Health Organization validated fracture risk assessment tool that calculates a person's 10 year probability of a major osteoporosis related fracture and hip fracture. ??According to the National Osteoporosis Foundation guidelines, postmenopausal women and men age 50 or older with low bone mass and a 10 year probability of a major osteoporosis related fracture = or greater than 20% or a 10 year probability of a hip fracture = or greater than 3% should be considered for treatment. For further information, including treatment recommendations, please refer to the 2019 ISCD Official Positions (http://www.iscd.org) and the NOF's Clinician's Guide to Prevention and Treatment of Osteoporosis (http://www.nof.org/professionals/clinical-guidelines) THIS IS AN ELECTRONICALLY VERIFIED FINAL REPORT 09/09/2022 6:11 AM - Electronically signed by ??Cecy Ratliff M.D. TW: TW D: ??09/09/2022 6:11 AM T: ??09/09/2022 6:11 AM Report ID: [id number] Reading Location: ??[id number] Procedure Note Cecy Ratliff MD - 09/09/2022 EXAM DESCRIPTION: DEXA AXIAL AND FOREARM BONE DENSITY SCAN REASON FOR STUDY: 62 y/o year old F with given history of: Hyperparathyroidism. Postmenopausal status. Osteoporosis. Presentation Designer/Model: [employer] SL ([id number]) CLINICAL INFORMATION: Current height: 63.5 inches Maximum height: 64 inches Weight: 188.5 pounds Risk factors: Prior fracture and rheumatoid arthritis COMPARISON: None available. Dissimilar scan types or analysis methods precludes assessment for calculating a significant change. FINDINGS: AP LUMBAR SPINE L1-L4: Total BMD is 1.076 g/cm2 T-score is 0.3 LEFT HIP: Total BMD is 0.915 g/cm2 T-score is -0.2 Femoral neck BMD is 0.731 g/cm2 T-score is -1.1 Left forearm BMD in the radius 33% is 0.491 g/cm2 T-score is -3.4 FRAX: FRAX not reported due to prior hip or vertebral fracture. IMPRESSION: Osteoporosis. REFERENCE: Bone mineral density: Normal (T-score above or = -1.0) Low bone mass (T-score between -1.0 and -2.5) replaces thepreviously used term osteopenia Osteoporosis (T-score = or below -2.5) Medical evaluation for secondary causes of low bone mineral density may be appropriate. FRAX is a World Health Organization validated fracture risk assessmenttool that calculates a person's 10 year probability of a major osteoporosisrelated fracture and hip fracture. According to the National OsteoporosisFoundation guidelines, postmenopausal women and men age 50 or older with low bonemass and a 10 year probability of a major osteoporosis related fracture = or greater than 20% or a 10 year probability of a hip fracture = or greaterthan 3% should be considered for treatment. For further information, including treatment recommendations, please referto the 2019 ISCD Official Positions (http://www.iscd.org) and the NOF's Clinician's Guide to Prevention and Treatment of Osteoporosis (http://www.nof.org/professionals/clinical-guidelines) THIS IS AN ELECTRONICALLY VERIFIED FINAL REPORT 09/09/2022 6:11 AM - Electronically signed by Cecy Ratliff M.D. TW: TW Report ID: [id number] Reading Location: [id number] us Dylan To MD IMG DXA PROCEDURES Final Result * Screening Mammogram Bilateral W Danilo (09/08/2022 1:01 PM CDT) Anatomical Region Laterality Modality Breast Bilateral Mammography 09/08/2022 2:14 PM CDT Impressions 09/08/2022 2:14 PM CDT There is no mammographic evidence of malignancy. A 1 year screening mammogram is recommended. BI-RADS: 2 - Benign. The patient has been or will be contacted. The patient will be entered into a reminder system with a target due date of 1 year for her next mammogram. Electronically signed by: Won Bennett M.D. Narrative 09/08/2022 2:14 PM CDT EXAMINATION: SCREENING MAMMOGRAM BILATERAL W DANILO ORDERING HEALTHCARE PROVIDER: DESTINEE CONROY HISTORY: Routine screening mammography. COMPARISON: ??07/08/2021, 11/24/2019, 11/19/2018, 10/16/2017, 10/06/2016 TECHNIQUE: CC and MLO views of the bilateral breasts were obtained with digital technique using breast tomosynthesis with C view. Computer aided detection was utilized. FINDINGS: DENSITY: There are scattered fibroglandular elements in the bilateral breasts. BREASTS: Stable benign bilateral breast calcifications. ??There are no suspicious masses, suspicious calcifications, or other suspicious findings in either breast. There has been no suspicious interval change. us Destinee Conroy MD IMG MAMMO PROCEDURES Fin al Result * Lipid panel (10/10/2021 1:52 PM CDT) Cholesterol 139 30 - 199 mg/dL [facility] Comment: Interpretive Data Ages < or = 19 years ??Acceptable: ? <170 mg/dL ??Borderline high: ??170-199 mg/dL ??High: ? >or= 200 mg/dL Ages > or = 20 years ??Desirable: ?<200 mg/dL ??Borderline high: ??200-239 mg/dL ??High: ? >or= 240 mg/dL Literature References: 1. Expert Panel on Integrated Guidelines for Cardiovascular Health and Risk Reduction in Children and Adolescents. Pediatrics 2011;128:S213 2. NCEP Expert Panel. Circulation 2004;110:227 Current Interpretive Data was last revised on 2017. Triglycerides 36 <=149 mg/dL [facility] Comment: Interpretive Data Ages < or = 9 years ??Acceptable: ? <75 mg/dL ??Borderline high: ??75-99 mg/dL ??High: ? >or= 100 mg/dL Ages 10 to 20 years ??Acceptable: ? <90 mg/dL ??Borderline high: ??90-129 mg/dL ??High: ? >or= 130 mg/dL Ages > or = 20 years ??Desirable: ?<150 mg/dL ??Borderline high: ??150-199 mg/dL ??High: ? 200-499 mg/dL ?Very high: ?? >or= 499 mg/dL Literature References: 1. Expert Panel on Integrated Guidelines for Cardiovascular Health and Risk Reduction in Children and Adolescents. Pediatrics 2011;128:S213 2. NCEP Expert Panel. Circulation 2004;110:227 Current Interpretive Data was last revised on 2017. HDL 72 >=40 mg/dL [facility] Comment: Interpretive Data Ages < or = 19 years ??Acceptable: ? >45 mg/dL ??Borderline low: ?? 40-45 mg/dL ??Low: ? <40 mg/dL Ages > or = 20 years ??Desirable: ?>or= 60 mg/dL ??Low: ? <40 mg/dL Literature References: 1. Expert Panel on Integrated Guidelines for Cardiovascular Health and Risk Reduction in Children and Adolescents. Pediatrics 2011;128:S213 2. NCEP Expert Panel. Circulation 2004;110:227 Current Interpretive Data was last revised on 2017. LDL, calculated 60 <=129 mg/dL [facility] Comment: Interpretive Data Ages < or = 19 years ??Acceptable: ? <110 mg/dL ??Borderline high: ??110-129 mg/dL ??High: ?>or= 130 mg/dL Ages > or = 20 years ??Optimal: ? <100 mg/dL ??Near optimal: ?100-129 mg/dL ??Borderline high: ?? 130-159 mg/dL ??High: ?>160 mg/dL Literature References: 1. Expert Panel on Integrated Guidelines for Cardiovascular Health and Risk Reduction in Children and Adolescents. Pediatrics 2011;128:S213 2. NCEP Expert Panel. Circulation 2004;110:227 Current Interpretive Data was last revised on 2017. Non-HDL Cholesterol 67 mg/dL [facility] Comment: Interpretive Data Ages < or = 19 years ??Acceptable: ?<120 mg/dL ??Borderline high: ??120-144 mg/dL ??High: ?>145 mg/dL Ages > or = 20 years ??When triglycerides are >200 mg/dL, Non-HDL cholesterol is a secondary target of ? therapy with treatment goals that are 30 mg/dL greater than the LDL cholesterol target. ? Literature References: 1. Expert Panel on Integrated Guidelines for Cardiovascular Health and Risk Reduction in Children and Adolescents. Pediatrics 2011;128:S213 2. NCEP Expert Panel. Circulation 2004;110:227 Current Interpretive Data was last revised on 2017. Chol/HDL ratio 2 [facility] Blood 10/10/2021 1:52 PM CDT 10/10/2021 2:07 PM CDT us Mauricio Chaudhary MD LAB BLOOD ORDERABLES Final Result [facility] Department [place] [address] from Last 3 Months or Most Recently Relevant to Health Maintenance Insurance [place]ICARE [place] [facility] Address: [address] [address] [place] [address] [facility] [place] [address] [place] Advance Directives For more information, please contact: [phone] * Full Code (Latest Code Status on File) Date Activated Date Inactivated Comments 10/10/2021 5:37 PM 10/11/2021 8:50 PM * Full Code Date Activated Date Inactivated Comments 08/18/2017 6:39 PM 08/22/2017 3:42 PM Care Teams Advisor To [employer] In [employer] Relationship Specialty Start Date End Date Destinee Conroy MD [address] [facility] [place] [id number] PCP - General 05/05/16 Desire Sams, RN Registered Nurse 04/03/17 Roscoe Mccollum MD [address] [place] [address] [address] Anesthesiologist Pain Management 12/21/21
--- OUTSIDE RECORDS SUMMARY | 2024-03-03 13:55 | XMS_ITS | Encounter Summary ---
Author Organization [facility] Address [address] [place] [address] Phone Care Team Providers Care Manager Recovery Name Role Phone Jona Bravo MD Primary Care Provider + Desire Sams RN Unavailable Un available Pooja [place] LCSW Unavailable [phone] Roscoe Mccollum MD Unavailable [phone] Encounter Details Date Type Department Care Team (Latest Contact Info) Description 10/08/2021 Orders Only [facility] Scanning, Provider [...] on file Legal Sex Female 12:46 AM DISTRIBUTING CLERK Gender Identity Female 04/08/2019 6:15 AM DISTRIBUTING CLERK Sexual Orientation Straight 04/08/2019 6: 15 AM DISTRIBUTING CLERK Occupation Industry Job Start Date Job End Date On Disability Not on file Not on file Not on file documented as of this encounter Plan of Treatment Not on file documented as of this encounter Procedures Procedure Name Priority Date/Time Associated Diagnosis Comments SCAN - LABS 10/08/2021 documented in this encounter Results * SCAN - LABS (10/08/2021) us Provider Scanning Final Result documented in this encounter Visit Diagnoses Not on filedocumented in this encounter Care Teams Manager Recovery Relationship Specialty Start Date End Date Jona Bravo MD [address] [place] [address] PCP - General 05/05/16 Desire Sams, RN Registered Nurse 04/03/17 Pooja [place], [facility] [address] [facility] ([facility]) Mailstop [phone] [place] [address] [facility] Outpatient Roof Designer 10/12/21 11/09/21 Roscoe Mccollum MD [address] [place] [address] DR THAYER [address] [place] [id number] Anesthesiologist Pain Management 12/21/21 documented as of this encounter
--- OUTSIDE RECORDS SUMMARY | 2024-03-03 13:56 | XMS_ITS ---
Author Organization [facility] Address [address] [place] [address] Care Team Providers Care Book Jacket Cover Machine Operator Name Role Phone Kathi Zimmerman Primary Care Provider REASON FOR VISIT Vit D billing issue Encounters Encounter Location Date Provider Diagnosis [facility] - Kathi Zimmerman [address] [place] [address] 01/22/2024 Kathi Zimmerman Plan Of Treatment No Information Progress Notes * Javon GRESHAMOB:[birth year] (64 yo F)Acc No.[id number]:01/22/2024 Patient:?MPRubénte :1960???Age:63 Y???Sex:Female Address:[address] [place] [address] * true * Date:? Generated for Printi ng/Fasandipg/eTransmitting on:?03/03/2024 01:56 PM [employer] NETWORK ANALYST
--- OUTSIDE RECORDS SUMMARY | 2024-03-03 13:56 | XMS_ITS | Clinical Summary ---
Author Organization [facility] Address [facility] [place] [address] [place] [address] Care Team Providers Care Driver Education Road Instructor Name Role Phone Unavailable Primary Care Provider Unavailabl e Social History Tobacco Use Types Packs/Day Years Used Date Smoking Tobacco: Never Assessed Comments Unknown Sex and Gender Information Value Date Recorded Sex Assigned at Not on file Legal Sex Female 4:08 PM CDT Gender Identity Not on file Sexual Orientation Not on file Plan of Treatment Health Maintenance Due Date Last Done Comments Cervical Cancer Screening Pap Smear (Age 30 to 64) Every 3 Years 1959 Colorectal Cancer Screening Colonoscopy (10 Years) 1959 Annual Physical 1962 Hepatitis C 1977 DTaP, Tdap and Td Vaccines (1 - Tdap) 1978 Cervical Cancer Screening Pap with HPV Testing (Age 30 to 64) Every 5 Years 1989 Cervical Cancer Screening with HPV 1989 Mammogram Screening 1999 Zoster Vaccines (1 of 2) 2009 COVID-19 Vaccine ( season) 2023 Influenza Adult (#1) 2023 02/19/2018, 11/04/2014, 10/23/2013, Additional history exists Dexa Scan (General) 02/05/2024 Pneumococcal Vaccine: 65+ Years (1 of 1 - PCV) 02/05/2024 RSV Immunization or 60+ Years (1 - 1-dose 75+ series) 2034 Meningococcal B Vaccine Aged Out No l onger eligible based on patient's age to complete this topic Meningococcal Vaccine Aged Out No mary maikel eligible based on patient's age to complete this topic Pneumococcal Vaccine: Pediatrics (0 to 5 Years) and At-Risk Patients (6 to 64 Years) Aged Out No longer eligible based on patient's age to complete this topic RSV Immunizations Under 20 Months Aged Out No longer eligible based on patient's age to complete this topic
--- OUTSIDE RECORDS SUMMARY | 2024-03-03 13:56 | XMS_ITS | Clinical Summary ---
Author Organization [facility] Address [address] [place] [address] Phone Care Team Providers Care Slitter Creaser Slotter Helper Name Role Phone Jona Bravo MD Primary Care Provider [phone] Active Problems Problem Noted Date Diagnosed Date Major neurocognitive disorde r due to Alzheimer's disease, possible 05/25/2017 Anxiety 05/25/2017 Social History Tobacco Use Types Packs/Day Years Used Date Smoking Tobacco: Never Assessed Comments Unknown Sex and Gender Information Value Date Recorded Sex Assigned at Not on file Legal Sex Female 7:10 PM CDT Gender Identity Not on file Sexual Orientation Not on file Plan of Treatment Health Maintenance Due Date Last Done Comments DEXA Bone Density 1960 Hepatitis C Virus (HCV) Screening 1960 TdaP Immunization 1960 Pap Smear 02/05/1980 Cervical Cancer Screening (CCS) 1989 HPV/Cotest 1989 Colonoscopy 02/05/2004 Colorectal Cancer Screening 02/05/2004 Cologuard 2009 Immunochemical Fecal Occult Blood 2009 Mammogram 2009 Pneumococcal Immunization (5 0+ years) (1 of 1 - PCV) 2009 Zoster Immunization (1 of 2) 2009 Influenza Immunization (#1) 10/07/202312/06, 11/04/2014 SARS-COV-2 Immunization ( season) 2023 11/19/2020, 04/29/2020, 04/08/2020 Respiratory Syncytial Virus (RSV) Immunization (Adult) (1 - 1-dose 75+ series) 2034 Hepatitis B Immunization Aged Out No longer eligible based on patient's age to complete this topic Meningococcal Immunization (ACWY) Aged Out No longer eligible b ased on patient's age to complete this topic Rotavirus Immunization Aged Out No lo nger eligible based on patient's age to complete this topic Care Teams Slitter Creaser Slotter Helper Relationship Specialty Start Date End Date Jona Brvao MD [address] [place] [address] PCP - General 05/04/17
--- OUTSIDE RECORDS SUMMARY | 2024-03-03 13:56 | XMS_ITS | Referral Summary ---
Author Organization [facility] Address [address] [facility] [place] [address] Care Team Providers Care Physical Therapy Professor Name Role Phone Jona Bravo MD Primary Care Provider [phone] Source Comments [facility],non-owned Affiliates and Associated Physician Practices is amultiple site organization consisting of ambulatory clinics and hospital sitesin [place], [place], [place] and [place]. This disclosure is being madepursuant to the Care Everywhere program and may not contain all information available regarding this patient. Last updated 17.[facility] Allergies Active Allergy Reactions Criticality Noted Date Comments Adhesive Sensitivity Other Codeine Urticaria 05/30/2010 Codeine Urticaria High 06/16/2009 pruritus Meperidine Urticaria 05/30/2010 Doxycycline Other 05/15/2017 Chest pain Duloxetine Other Low 01/10/2019 depn depn depn Gabapentin Other 12/08/2015 Hair fell out Levofloxacin Other 06/24/2010 Tendons hurt Pt takes ciprofloxacin without problems Pregabalin Swelling 12/08/2015 Prochlorperazine Other Low Reaction: OTHER, ?? Reaction: OTHER, ?? Suvorexant GI Discomfort 06/29/2016 Medications * Be aware that medications may not be up to date on this document. Alwaysverify current medications with the patient. Medication Sig Dispensed Refills Start Date End Date Status Tizanidine HCl 4 MG CAPS Take 4 mcg by mouth at bedtime Active levothyroxine (SYNTHROID) 88 MCG tablet Take 1 (one) tablet by mouth daily before breakfast Active ALBUTEROL SULFATE IN Inhale by mouth once daily as needed Active sertraline (ZOLOFT) 100 MG tablet Take 2 (two) tablets by mouth once daily Active pravastatin (PRAVACHOL) 80 MG tablet 01/07/2018 Active HYDROcodone-acetami nophen (NORCO) 10-325 MG tablet Take 1 (one) tablet by mouth every 6 hours as needed for Pain Active buPROPion XL 24hr (WELLBUTRIN-XL) 300 MG tablet Take 150 mg by mouth Active vitamin E (TOCOPHERYL) 100 UNIT capsule Take 100 Int'l Units/L by mouth once daily Active Biotin 54686 MCG TBDP Take 1 tablet by mouth once daily Active aspirin EC (ECOTRIN) 81 MG tablet Take 1 (one) tablet by mouth every 7 days Active busPIRone (BUSPAR) 10 MG tablet Take 2 (two) tablets by mouth 2 times daily 06/17/2020 Active eszopiclone (LUNESTA) 3 MG tablet Take 1 (one) tablet by mouth nightly as needed for Insomnia Active omeprazole (PRILOSEC) 20 MG capsuleIndications: Dysphagia, unspecified type,Status post bariatric surgery Take 1 (one) capsule by mouth daily before breakfast 180 capsule 2 09/08/2020 Active Copper Gluconate (COPPER CAPS PO) Take 3 mg by mouth once daily Active Zinc 30 MG Take 30 mg by mouth once daily Active Vitamin K 100 MCG TABS Take 1 (one) tablet by mouth once Active hydroCHLOROthiazide (HYDRODIURIL) 12.5 MG Take 1 (one) tablet by mouth once daily 04/21/2021 Active nystatin (NYSTOP) 693646 UNIT/GM powder APPLY POWDER TOPICALLY TO AFFECTED AREA TWICE DAILY 60 g 1 08/12/2021 Active VITAMIN D PO Take 5,000 Int'l Units/L by mouth once daily Active acarbose (Precose) 25 MG tablet Take 1 (one) tablet by mouth 3 times daily with meals Active amLODIPine (Norvasc) 5 MG tablet Take 1 (one) tablet by mouth once daily Active Active Problems Problem Noted Date Diagnosed Date Hyperparathyroidism 02/02/2022 06/15/2022 Kidney stones 04/03/2019 Overview (06/15/2022): Onset 2015 Frequent lithotripsy, stone extractions, again July 20202022 S/P gastric bypass 06/19/2018 Overview (06/30/2018): 06/19/18 Laparoscopic Judy-en-Y Gastric Bypass Shingles 03/21/2018 Overview (03/21/2018): Recurrent outbreaks related to stress. Chronic constipation 03/21/2018 Type 2 diabetes mellitus 06/06/2017 Gastroparesis 06/06/2017 GERD (gastroesophageal reflux disease) 8 Hypertension 06/06/2017 MIDDLETON (nonalcoholic steatohepatitis) 06/06/2017 Overview (06/15/2022): Overview: 05/16/01 liver biopsy: MIDDLETON with no fibrosis [...] 06/15/22 Fibroscan CAP 233, LSM 6.9 kPa Obesity 06/06/2017 Overview (04/03/2019): Overview: 01/15/08: Lap banding by Dr. Claros at [facility] Had a port leak with subsequent revision. 09/15/14 EGD: band appears to be next to the diaphragm giving the appearance of a short hiatal hernia 06/19/18 Laparoscopic Judy-en-Y Gastric Bypass, lost 100 lbs in the first 9 months. MEREDITH (obstructive sleep apnea) 06/06/2017 Overview (06/07/2017): CPAP since about 2006, sleeping better Spinal stenosis 06/06/2017 Overview (06/06/2017): Overview: In neck. Has used a fentanyl patch since 2002 Cerebrovascular accident 08/03/2016 Overview (06/06/2017): Overview: 07/20/16 MRI for vision changes: small to moderate sized old left basal ganglia infarct 07/27/16 carotid US okay, echocardiogram okay Hemochromatosis carrier 09/30/2015 Overview (06/06/2017): Overview: C282Y heterozygote, blush of iron on liver biopsy Pelvic pain in female 08/06/2014 Overview (06/06/2017): Overview: Onset immediately after vaginal hysterectomy 07/17/14 Depression 05/30/2010 Fibromyalgia 05/30/2010 Hypothyroidism 05/30/2010 Velasquez's esophagus 11/25/2009 Overview (08/03/2020): Overview: Dx not confirmed by EGDs: 12/10/09 EGD: LA class 1 esophagitis; bx: no Velasquez's 09/15/14 EGD: no visual evidence of Velasquez's 02/09/16 EGD: no GERD or Velasquez's 08/03/20 EGD: no GERD or Velasquez's Colon polyps 11/25/2009 Overview (08/06/2020): Overview: 12/10/09 colonoscopy: no polyps, repeat in 5 years because of fair prep 09/15/14 colonoscopy: no polyps, repeat in 5 years. 08/03/20 colonoscopy: one diminutive adenoma at hepatic flexure, repeat in 7 years Asthma Resolved Problems Problem Noted Date Diagnosed Date Resolved Date Dehydration 06/28/2018 06/30/2018 Preoperative examination 12/24/2017 Complication of gastric band procedure 12/24/2017 06/30/2018 Immunizations Name Administration Dates Next Due Covid Moderna primary monova lent 12+ yr 0.5mL 10/13/2021 HEP A VACCINE, ADULT 02/05/2005 INFLUENZA VACCINE 12/15/2015,09/16/2014,10/07/19 14 Pneumococcal Pcv13 Conj 09/16/2014 Social History Tobacco Use Types Packs/Day Years Used Date Smoking Tobacco: Never Smokeless Tobacco: Never Alcohol Use Standard Drinks/Week Comments No 0 (1 standard drink = 0.6 oz pur e alcohol) Sex and Gender Information Value Date Recorded Sex Assigned at Female 04/25/2020 11:44 PM CDT Gender Identity Female 04/25/2020 11:44 PM CDT Sexual Orientation Straight 04/25/2020 11 :44 PM CDT Last Filed Vital Signs Vital Sign Reading Time Taken Comments Blood Pressure 122/68 06/21/2023 12:44 PM CDT Pulse 68 06/21/2023 12:44 PM CDT Temperature 36.8 ??C (98.2 ??F) 06/21/2023 12:44 PM C DT Respiratory Rate 16 10/16/2022 9:16 AM CDT Oxygen Saturation 98% 06/21/2023 12:44 PM CDT Inhaled Oxygen Concentration - - Weight 88 kg (194 lb) 06/21/2023 12:44 PM CDT Height 160 cm (5' 3 ) 06/21/2023 12:44 PM CDT Body Mass Index 34.37 06/21/2023 12:44 PM CDT Functional Status Functional Status Response Date of Assess ment Is person deaf or have serious hearing difficult y? No 08/03/2020 Is person blind or have serious difficulty seein g? No 08/03/2020 Does person have serious dif ficulty walking/climbing stairs? No 08/03/2020 Does person have difficulty dressing/bathing? No 08/03/2020 Does person have difficulty doing errands alone? No 08/03/2020 Cognitive Status Response Date of Assessm ent Does person have difficulty concentrating/remembering/making decisions? No 08/03/2020 Plan of Treatment Upcoming Encounters Date Type Department Care Team (Late st Contact Info) Description 04/10/2024 8:30 AM PANTS CUTTER Office Visit [facility] [address] [place] [address] Soham Hutton MD [address] [place] [address] Procedures Procedure Name Priority Date/Time Associated Diagnosis Comments COMPREHENSIVE METABOLIC PANEL 06/05/2022 10:49 AM CDT ENDOSCOPY, COLON, SCREENING Routine 08/03/2020 9:10 AM CDT HEMOGLOBIN A1C Routine 07/23/2008 11:32 AM CDT Morbid Obesity (HCC) from Last 3 Months or Most Recently Relevant to Health Maintenance Results * COMPREHENSIVE METABOLIC PANEL (06/05/2022 10:49 AM CDT) Glucose 86 65 - 99 mg/dL [facility] Comment: ? Fasting reference interval BUN 20 7 - 25 mg/dL [facility] Creatinine 0.77 0.50 - 1.05 mg/dL [facility] eGFR by Cystatin C 87 > OR = 60 mL/min/1. 73m2 [facility] Comment: The eGFR is based on the CKD-EPI 2020 equation. To calculate the new eGFR from a previous Creatinine or Cystatin C result, go to https://www.kidney.org/professionals/ kdoqi/gfr%5Fcalculator BUN/Creatinine Ratio NOT APPLICABLE 6 - 22 (calc) [facility] Sodium 141 135 - 146 mmol/L [facility] Potassium 3.5 3.5 - 5.3 mmol/L [facility] Chloride 102 98 - 110 mmol/L [facility] CO2 32 20 - 32 mmol/L [facility] Calcium 9.3 8.6 - 10.4 mg/dL [facility] Protein Total 6.2 6.1 - 8.1 g/dL [facility] Albumin 4.3 3.6 - 5.1 g/dL [facility] Globulin Total 1.9 1.9 - 3.7 g/dL (calc) [facility] Albumin/Globuli n Ratio 2.3 1.0 - 2.5 (calc) [facility] Bilirubin Total 0.8 0.2 - 1.2 mg/dL [facility] Alkaline Phosphatase 81 37 - 153 U/L [facility] AST 23 10 - 35 U/L [facility] ALT 27 6 - 29 U/L [facility] Comment: Test Performed at: [employer] [facility] [id number] ??[id number] ARACELY DANIEL MD 06/05/2022 10:4 9 AM CDT 06/05/2022 10:50 AM CDT Ivette Alyson Monteiro ELECTRIC METER TESTER HELPER[facility] - [facility] ORDERABLES [facility] [address] [place] [address] * ENDOSCOPY, COLON, SCREENING (08/03/2020 9:10 AM CDT) Report Endoscopy POC Endoscopy Department Report _ Patient Name: Tiffanie Ruiz ?Procedure Date: 08/03/2020 9:10 AM ? Date of : 1960 Classification: Outpatient ?Gender: Female Ethnicity: Not or ? Race: White _ Providers: ?Soham Farlye MD Referring MD: ? Jona Bravo (Referring MD) Procedure: ?Colonoscopy Indications: ?Surveillance: Personal history of adenomatous ?polyps on last colonoscopy > 5 years ago Medications: ?Monitored Anesthesia Care Description of Procedure: Pre-Anesthesia Assessment: ?- Prior to the procedure, a History and Physical ?was performed, and patient medications and ?allergies were reviewed. The patient's tolerance of ?previous anesthesia was also reviewed. The risks ?and benefits of the procedure and the sedation ?options and risks were discussed with the patient. ?All questions were answered, and informed consent ?was obtained. Prior Anticoagulants: The patient has ?taken no previous anticoagulant or antiplatelet ?agents. ASA Grade Assessment: III - A patient with ?severe systemic disease. After reviewing the risks ?and benefits, the patient was deemed in ?satisfactory condition to undergo the procedure. ?- Prior Aspirin/ NSAID therapy: The patient has ?taken no previous aspirin or NSAID medications. ?After I obtained informed consent, the scope was ?passed under direct vision. Throughout the ?procedure, the patient's blood pressure, pulse, and ?oxygen saturations were monitored continuously. The ?[id number]-[id number] was introduced through the anus and ?advanced to the cecum, identified by the ?appendiceal orifice. The colonoscopy was ?technically difficult and complex due to a ?redundant colon. Successful completion of the ?procedure was aided by using manual pressure. The ?patient tolerated the procedure well. The quality ?of the bowel preparation was adequate. The ?appendiceal orifice was photographed. ? Findings: ? The perianal and digital rectal examinations were normal. ? A few medium-mouthed diverticula were found in the sigmoid colon. ? A 3 mm polyp was found in the hepatic flexure. The polyp was sessile. ? The polyp was removed with a jumbo cold forceps. Resection and retrieval ? were complete. Verification of patient identification for the specimen ? was done by the nurse using the patient's name and date. Estimated ? blood loss was minimal. ? The exam was otherwise without abnormality on direct and retroflexion ? views. ? Estimated Blood Loss: ? Estimated blood loss: none. Complications: ?No immediate complications. Impression: ? - Diverticulosis in the sigmoid colon. ?- One 3 mm polyp at the hepatic flexure, removed ?with a jumbo cold forceps. Resected and retrieved. ?- The examination was otherwise normal on direct ?and retroflexion views. Recommendation: ? - Discharge patient to home (with spouse). ?- Patient has a contact number available for ?emergencies. The signs and symptoms of potential ?delayed complications were discussed with the ?patient. Return to normal activities tomorrow. ?Written discharge instructions were provided to the ?patient. ?- Resume previous diet. ?- Continue present medications. ?- Await pathology results. ?- Repeat colonoscopy in 7 years for surveillance. ?- Return to my office as previously scheduled. ? Attending Participation: ??I personally performed the entire procedure. ? Procedure Code(s): ? --- Professional --- ? 11360, Colonoscopy, flexible; with biopsy, single or multiple Diagnosis Code(s): ?--- Professional --- ?Z86.010, Personal history of colonic polyps ?K63.5, Polyp of colon ?K57.30, Diverticulosis of large intestine without ?perforation or abscess without bleeding CPT copyright 2019 [employer] [place] [employer]. All rights reserved. The codes documented in this report are preliminary and upon day camp counselor review may be revised to meet current compliance requirements. Soham Farley MD 08/03/2020 10:38:53 AM This report has been signed electronically. Note Initiated On: 08/03/2020 9:10 AM Number of Addenda: 0 ? [facility] ? [address] [place], [place] [id number] [place] [address] [employer] 08/03/2020 9:10 AM CDT Soham Hutton MD GI PROCEDU RE ORDERABLES [facility] [employer] * HEMOGLOBIN A1C (07/23/2008 11:32 AM CDT) Hemoglobin A1c 5.7 3.9 - 6.1 % [facility] Estimated Average Glucose 116.9 mg/dl [facility] BLOOD SPECIMEN / Unknown 07/23/2008 11:32 AM CDT Narrative [facility] - 07/23/2008 9:23 PM CDT [id number] Resulting Agency Comment Performed By [facility] ? [address] [facility] ? [place] [address] Scott Claros MD LAB - CHEMISTRY O RDERABLES [facility] [address] [place] [address] from Last 3 Months or Most Recently Relevant to Health Maintenance Advance Directives * Full Code (Latest Code Status on File) Date Activated Date Inactivated Comments 06/19/2018 5:17 PM 06/20/2018 8:12 PM * Full Code Date Activated Date Inactivated Comments 12/24/2017 11:20 AM 12/25/2017 12:40 PM Care Teams Physical Therapy Professor Relationship Specialty Start Date End Date Jona Bravo MD [address] [place] [phone] PCP - General Internal Medicine 10/16/22
--- OUTSIDE RECORDS SUMMARY | 2024-03-03 13:56 | XMS_ITS ---
Author Organization [facility] justice Address [address] [address] [place] [address] Care Team Providers Care Head Of Sales Promotion Name Role Phone Shelly HALE, Jona Primary Care Provider Dave SaulMary Unavailable [phone] Allergies Allergen (clinical drug ingredient) Drug/Non Drug [...] 3 mg daily - *Pick strength-form from [employer] for eRX* Active Zinc 30 mg daily oral Active Omeprazole 20 MG take 1 capsule (20 mg) by oral route once daily before a meal Oral 1 Active E-Gems - daily oral *Reorder from [employer] for eRx and Interaction Alerts* Active Cymbalta 30 MG take 1 capsule (30 mg) by oral route once daily Oral 1 Active Biotin - daily oral *Pick strength-form from [employer] for eRX* Active Levothyroxine Sodium 88 MCG take 1 capsule (88 mcg) by oral route once daily Oral 1 Active Xanax - - oral *Pick strength-form from [employer] for eRX* Active Prolia Active Vitamin B12 Active MULTIPLE VITAMINS W/IRON take 1 tablet b y oral route once Oral 1 *Reorder from [employer] for eRx and Interaction Alerts* Active Eszopiclone [...] Problem Status W/U Status Risk Notes Problem 315198476 Rheumatoid arthritis without rheumatoid factor, multiple sites (M06.09) Active confirmed Problem 877678118 Fibromyalgia (M79.7) Active confirmed Vital Signs Temperature 97.3 degrees Fahrenheit 05/29/19 24 Blood pressure systolic 150 mm Hg 05/29/19 24 Blood pressure diastolic 80 mm Hg 024 Heart Rate 79 /min 05/29/2023 Height 64 in 05/29/2023 Weight 193.7 lbs 05/29/2023 BMI 33.24 kg/m2 05/29/2023 Oximetry 99 % 05/29/2023 Encounters Encounter Location Date Provider Diagnosis [facility] [address] [facility] [address] [place] [address] 05/29/2023 Mary Saul Rheumatoid arthritis without rheumatoid [...] Antibodies 05/29/2023 HIMANSHU w/Reflex 05/29/2023 Chem-Comprehensive 05/29/2023 Progress Notes * Tiffanie GRESHAM ADOB: (63 yo F)Acc No.[id number]:05/29/2023 Progress Notes Patient:?Tiffanie GRESHAM A Provider:?MARY SAUL MD :1960???Age:63 Y???Sex:Female D ate:05/29/2023 Address:[address] [place], [place] [address] [id number] Pcp:Jona Bravo MD Subjective: * Chief Complaints: [...] pain doctor for neck and back, takes Parshall as needed, had injection stopped Topamax due [...] , Notes to Pharmacist: *Pick strength-form from [employer] for eRX*Levothyroxine Sodium 88 MCG Capsule take 1 capsule (88 mcg) by oral route once daily Oral 1 Biotin - daily oral , Notes to Pharmacist: *Pick strength-form from [employer] for eRX*Omeprazole 20 MG Capsule Delayed Release take 1 capsule (20 mg) by oral route once daily before a meal Oral 1 Zinc 30 mg tablet daily oral Copper 3 mg daily - , Notes to Pharmacist: *Pick strength-form from [employer] for eRX*Cymbalta 30 MG Capsule Delayed Release Particles take 1 capsule (30 mg) by oral route once daily Oral 1 E-Gems - daily oral , Notes to Pharmacist: *Reorder from [employer] for eRx and Interaction Alerts*Potassium Chloride ER [...] 1 , Notes to Pharmacist: *Reorder from [employer] for eRx and Interaction Alerts*Taking Vitamin B12 Taking Prolia Taking Xanax - - oral , Notes to Pharmacist: *Pick strength-form from [facility] for eRX*Taking Levothyroxine Sodium 88 MCG Capsule take 1 capsule (88 mcg) by oral route once daily Oral 1 Taking Biotin - daily oral , Notes to Pharmacist: *Pick strength-form from [facility] for eRX*Taking Omeprazole 20 MG Capsule Delayed Release take 1 capsule (20 mg) by oral route once daily before a meal Oral 1 Taking Zinc 30 mg tablet daily oral Taking Copper 3 mg daily - , Notes to Pharmacist: *Pick strength-form from [facility] for eRX*Taking Cymbalta 30 MG Capsule Delayed Release Particles take 1 capsule (30 mg) by oral route once daily Oral 1 Taking E-Gems - daily oral , Notes to Pharmacist: *Reorder from [facility] for eRx and Interaction Alerts*Taking Potassium [...] 1 , Notes to Pharmacist: *Reorder from [facility] for eRx and Interaction Alerts*Discontinuedbuspirone - - oral , Notes to Pharmacist: *Reorder from [facility] for eRx and Interaction Alerts*Medication List reviewed and reconciled with the patientDiscontinued buspirone - - oral , Notes to Pharmacist: *Reorder from [facility] for eRx and Interaction Alerts*Medication List [...] Codes:? * Billing Information: * Visit Code:? 97800 Office Visit, Est Pt., Level 4. * Procedure Codes:? * Sign off status: Completed true * Provider:?MARY SAUL MD Date:?05/29/2023 Generated for Ramila baldwin/[place]/Sandeepitting on:?03/03/2024 01:55 PM PHYSICAL THERAPIST History and Physical Notes * HPI (History [...] pain doctor for neck and back, takes Parshall as needed, had injection stopped Topamax due [...]
--- OUTSIDE RECORDS SUMMARY | 2024-03-03 13:56 | XMS_ITS | Encounter Summary ---
Author Organization [facility] Address [address] [facility] [place] [address] Care Team Providers Care Banking Analyst Name Role Phone Jesse Garcia MD Primary Care Provider [phone] Jona Bravo MD Primary Care Provider [phone] Kirill Jean MD Primary Care Provider [phone] Jona Bravo MD Primary Care Provider [phone] Kirill Jean MD Primary Care Provider [phone] Jona Bravo MD Primary Care Provider [phone] Kirill Jean MD Primary Care Provider [phone] Jona Bravo MD Primary Care Provider [phone] Kirill Jean MD Primary Care Provider [phone] Kirill Jean MD Primary Care Provider [phone] Tenisha Tena MD Primary Care Provide r Kirill Jean MD Primary Care Provider [phone] Jona Bravo MD Primary Care Provider [phone] Encounter Details Date Type Department Care Team (Late st Contact Info) Description 08/05/2010 [facility] Steph Mar, QA 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 AND 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 [id number] [place] [address] Social History Tobacco Use Types Packs/Day Years Used Date Smoking Tobacco: Never Smokeless Tobacco: Never Alcohol Use Standard Drinks/Week Comments No 0 (1 standard drink = 0.6 oz pur e alcohol) Sex and Gender Information Value Date Recorded Sex Assigned at Female 04/25/2020 11:44 PM CDT Gender Identity Female 04/25/2020 11:44 PM CDT Sexual Orientation Straight 04/25/2020 11 :44 PM CDT documented as of this encounter Plan of Treatment Upcoming Encounters Date Type Department Care Team (Late st Contact Info) Description 04/10/2024 8:30 AM 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 Office Visit [facility] [address] [place] [address] Soham Hutton MD [address] [place] [address] documented as of this encounter Visit Diagnoses Not on filedocumented in this encounter Care Teams Banking Analyst Relationship Specialty Start Date End Date Jesse Garcia MD [address] [address] PCP - General 11/04/09 06/30/14 Jona Bravo MD [address] [place] [id number] PCP - General Internal Medicine 11/29/15 05/23/17 Kirill Jean MD [address] [place] [phone] PCP - General 05/24/17 12/16/17 Jona Bravo MD [address] [place] [address] PCP - General Internal Medicine 12/17/17 03/19/18 Kirill Jean MD [address] [place] [phone] PCP - General 03/20/18 03/25/18 Jona Bravo MD [address] [address] PCP - General Internal Medicine 03/26/18 05/01/18 Kirill Jean MD [address] [place] [phone] PCP - General 05/02/18 06/18/18 Jona Bravo MD [address] [address] PCP - General Internal Medicine 06/19/18 07/31/18 Kirill Jean MD [address] [place] [phone] PCP - General 08/01/18 11/19/18 Kirill Jean MD [address] [place] [phone] PCP - General 02/13/19 09/18/19 Tenisha Tena MD [address] [place] [phone] PCP - General Family Medicine 09/19/19 01/07/20 Kirill Jean MD [address] [place] [phone] PCP - General 01/08/20 10/15/22 Jona Bravo MD [address] [place] [phone] PCP - General Internal Medicine 10/16/22 documented as of this encounter
--- OUTSIDE RECORDS SUMMARY | 2024-03-03 13:56 | XMS_ITS | Encounter Summary ---
Author Organization [facility] Address [address] [place] [phone] Phone Care Team Providers Care Sewing Machine Operator Plastic Zipper Name Role Phone Jona Bravo MD Primary Care Provider Reason for Visit * Reason Comments Med Refill Encounter Details Date Type Department Care Team (Late st Contact Info) Description 11/06/2021 Refill [facility] [address] [place] [address] Janeth Betts PA [address] [place] [phone] Social History Tobacco Use Types Packs/Day Years Used Date Smoking Tobacco: Never Smokeless Tobacco: Never Sex and Gender Information Value Date Recorded Sex Assigned at Female 07/27/2020 1:49 PM MDT Gender Identity Female 07/27/2020 1:49 PM MDT Sexual Orientation Straight 07/27/2020 1: 49 PM MDT documented as of this encounter Plan of Treatment Upcoming Encounters Date Type Department Care Team (Late st Contact Info) Description 05/28/2024 1:00 PM CDT Office Visit [facility] [address] [place], [place] [phone] Uche Vela MD [address] [place], [place] [phone] documented as of this encounter Visit Diagnoses Not on filedocumented in this encounter Care Teams Sewing Machine Operator Plastic Zipper Relationship Specialty Start Date End Date Jona Bravo MD [address] [place] [address] PCP - General Internal Medicine 06/16/19 documented as of this encounter
--- OUTSIDE RECORDS SUMMARY | 2024-03-03 13:56 | XMS_ITS | Referral Summary ---
Author Organization [facility] Address [address] [place] [address] Care Team Providers Care [place] Laborer Name Role Phone Destinee Conroy MD Primary Care Provider + Desire Sams RN Unavailable Un available Roscoe Mccollum MD Unavailable [phone] Encounters Date Type Department Care Team Description 02/26/2024 Telephone [facility] [address] 11[address] [place] [address] [place] [address] Faby Huerta, 02/18/2024 1:15 PM GROUNDSKEEPER Office Visit [facility] [address] [place] [address] Kendrick Hernandez MD Psychophysiological insomnia (Primary Dx); MEREDITH (obstructive sleep apnea); Hypersomnia with sleep apnea 01/17/2024 3:40 PM GROUNDSKEEPER Office Visit [facility]) - [facility] [address] [facility] [address] [place] [address] Caren Caputo MD S/P insertion of hypoglossal nerve stimulator (Primary Dx); MEREDITH (obstructive sleep apnea) 01/07/2024 1:23 PM GROUNDSKEEPER - 01/07/2024 6:24 PM GROUNDSKEEPER Emergency [facility] Emergency Department [address] [place] [address] Ayla Ambrose MD Galicia, Edgar E., MD Post-operative pain (Primary Dx); Secondary hypertension; Acute nonintractable headache, unspecified headache type Discharge Disposition: Discharge to home or self care 01/01/2024 8:30 AM GROUNDSKEEPER - 01/01/2024 11:00 AM GROUNDSKEEPER Surgery [facility] Operating Room [address] [place] [address] Caren Caputo MD INSPIRE HYPOGLOSSAL NERVE STIMULATOR IMPLANT 01/01/2024 8:21 AM GROUNDSKEEPER Anesthesia Event [facility] [address] [place] [address] Evette Huddleston Jr., MD Barnhart, Lynlee Jo, NP 01/01/2024 6:29 AM GROUNDSKEEPER - 01/01/2024 1:16 PM GROUNDSKEEPER Hospital Encounter [facility] [address] [place] [address] Caren Caputo MD MEREDITH (obstructive sleep apnea) (Primary Dx) Discharge Disposition: Discharge to home or self care 12/26/2023 Telephone [facility] [address] [place] [address] [address] [place] [address] Kendrick Hernandez MD 12/26/2023 Telephone [facility] [address] [place] [address] [address] [place] [address] Kendrick Hernandez MD 12/24/2023 9:45 AM GROUNDSKEEPER Pre-Admission Testing [facility] Pre Anesthesia Testing [address] [place] [id number] Type 2 diabetes mellitus with other specified complication, unspecified whether termite helper insulin use (HCC) (Primary Dx); Pre-op testing from Last 3 Months Allergies Active Allergy Reactions Criticality Noted Date [...] syringe-needle U-100 1 mL 31 gauge x 06/20 syringe USE DIRECTED WITH B-12 INJECTION 03/31/19 [...] pain 05/10/2021 Degenerative cervical spinal stenosis 09/12/2019 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 08/2019 Cervical radiculopathy 09/12/2019 Cervicalgia 09/12/2019 S/P gastric bypass 06/19/2018 Overview (12/26/2019): 06/19/18 Laparoscopic Judy-en-Y Gastric Bypass Chronic right-sided low back pain without sciati ca 05/02/2018 Sacroiliitis (CMS/HCC) - Right 05/02/2018 DDD (degenerative disc disease), lumbar 05/03/19 19 Actinic keratosis 04/11/2018 Assessment & Plan (04/11/2018 2:20 PM GROUNDSKEEPER): - Location/s: Face - Imiquimod Rx - [...] Has used a fentanyl patch since 2002 Anxiety 05/25/2017 Major neurocognitive disorde r due [...] infarction and without status migrainosus, not intractable Immunizations Name Administration Dates Next Due Hep [...] PPV23 05/30/2016 Pneumococcal, Unspecified 09/16/2014 Tdap 02/05/2013,09/14/2011 Social History Tobacco Use Types Packs/Day Years [...] often do you attend chur ch or samaritan services? Never 10/13/2021 Do you belong to any clubs o r organizations such as jain groups, unions, fraternal or athletic groups, or [...] place to sleep or slept in a [place] [facility] [place] facility (including now)? No 10/13/2021 Personal Safety Answer Date Recorded Have you ever been in or are you currently in a harmful physical or emotional relationship or is someone making you feel afraid or unsafe? Denies 01/07/2024 Comments No Sex and Gender Information Value Date Recorded Sex Assigned at Not on file Legal Sex Female 12:46 AM GROUNDSKEEPER Gender Identity Female 04/08/2019 6:15 AM GROUNDSKEEPER Sexual Orientation Straight 04/08/2019 6: 15 AM GROUNDSKEEPER Occupation Industry Job Start Date Job End Date On Disability Not on file Not on file Not on file Last Filed Vital Signs Vital Sign Reading Time Taken Comments Blood Pressure 131/81 02/18/2024 1:01 PM GROUNDSKEEPER Pulse 93 02/18/2024 1:01 PM GROUNDSKEEPER Temperature 36.2 ??C (97.2 ??F) 01/07/2024 10:[address] Respiratory Rate 18 01/07/2024 6:00 PM GROUNDSKEEPER Oxygen Saturation 97% 02/18/2024 1:01 PM GROUNDSKEEPER Inhaled Oxygen Concentration - - Weight 85.3 kg (188 lb) 02/18/2024 1:01 PM GROUNDSKEEPER Height 165.1 cm (5' 5 ) 02/18/2024 1:01 PM GROUNDSKEEPER Body Mass Index 31.28 02/18/2024 1:01 PM GROUNDSKEEPER Plan of Treatment Not on file Medical Devices Implanted Type Area Rerolling Machine Operator Device Identifier Shelf Expiration Date Model / Serial / Lot [employer] Cruzito 180-223 Contour 6fr 26cm Large Inner Lumen Low Profile Bladder Lei Taper Latex Free - [id number] Implanted:Qty: 1 on 04/23/2018 by Christopher Her MD at [facility] Stent Right: Ureter [employer] 11/19/2020 180-223 / / [id number] Plates Screws N/A: Neck [employer] Lead Neurostimulator Sleep Apnea Thoracic Permanent Respiratory Sensing Inspire 43cm 4340 - [id number] - [id number] Implanted:Qty: 1 on 01/01/2024 by Caren Caputo MD at [facility] N/A: Chest [employer] 07/21/2026 4340 / [id number] / [employer] Inspire 3 Electrode Cuff Tunnel José Lead Neurostimulator Sterile 4063 - [id number] - [id number] Implanted:Qty: 1 on 01/01/2024 by Caren Caputo MD at [facility] N/A: Neck [employer] 01/22/2026 4063 / [id number] / [employer] Inspire Generator 3028 - [id number] - [id number] Implanted:Qty: 1 on 01/01/2024 by Caren Caputo MD at [facility] N/A: Chest [employer] 07/22/2026 3028 / [id number] C / Procedures Procedure Name Priority Date/Time Associated Diagnosis Comments POCT GLUCOSE DEVICE Routine 01/07/2024 4 :33 PM GROUNDSKEEPER CTA HEAD NECK W WO CONTRAST ED 01/07/2024 4:19 PM GROUNDSKEEPER TROPONIN T HIGH-SENSITIVITY 4-HR Timed 01/07/2024 3:24 PM GROUNDSKEEPER TROPONIN T HIGH-SENSITIVITY 2-HOUR STAT 01/07/2024 1:55 PM GROUNDSKEEPER XR CHEST PA LATERAL 2 VIEWS ED 01/07/2024 11:29 AM GROUNDSKEEPER EGFR STAT 01/07/2024 11:11 AM GROUNDSKEEPER DIFFERENTIAL AUTO STAT 01/07/2024 11: 11 AM GROUNDSKEEPER TROPONIN T HIGH-SENSITIVITY SERIES (BASELINE, 2HR, 4HR, 6HR) STAT 01/07/2024 11:11 AM GROUNDSKEEPER COMPREHENSIVE METABOLIC PANEL STAT 01/07/2024 11:11 AM GROUNDSKEEPER CBC WITH AUTO DIFFERENTIAL STAT 01/07/2024 11:11 AM GROUNDSKEEPER ECG 12-LEAD STAT 01/07/2024 11:02 AM GROUNDSKEEPER POCT GLUCOSE DEVICE Routine 01/01/2024 1 1:34 AM GROUNDSKEEPER XR NECK SOFT TISSUE ED Urgent/IP Urgent 01/01/2024 11:19 AM GROUNDSKEEPER XR CHEST 1 VIEW ED Urgent/IP Urgent 01/01/2024 11:19 AM GROUNDSKEEPER POCT GLUCOSE DEVICE Routine 01/01/2024 1 0:54 AM GROUNDSKEEPER ND AN ELECTIVE ENDOTRACHEAL AIRWAY Routine 01/01/2024 9:06 AM GROUNDSKEEPER INSPIRE HYPOGLOSSAL NERVE STIMULATOR IMPLANT - INSERTION 01/01/2024 8:20 AM GROUNDSKEEPER MEREDITH (obstructive sleep apnea) Special Needs DR CAPUTO REQUESTS 150 MINS FOR CASE/10-14 DAYS POST OP POCT GLUCOSE DEVICE Routine 01/01/2024 7 :21 AM GROUNDSKEEPER EGFR Routine 12/24/2023 11:05 AM GROUNDSKEEPER Pre-op testing BASIC METABOLIC PANEL Routine 12/24/2023 11:05 AM GROUNDSKEEPER Pre-op testing DIFFERENTIAL AUTO Routine 12/24/2023 10: 56 AM GROUNDSKEEPER Pre-op testing CBC WITH AUTO DIFFERENTIAL Routine 12/24/2023 10:56 AM GROUNDSKEEPER Pre-op testing HEMOGLOBIN A1C Routine 12/24/2023 10:56 AM GROUNDSKEEPER Type 2 diabetes mellitus with other specified complication, unspecified whether termite helper insulin use (HCC) Pre-op testing URINALYSIS AND REFLEX TO MICROSCOPIC AND CULTURE Routine 12/24/2023 10:56 AM GROUNDSKEEPER Pre-op testing DEXA AXIAL AND FOREARM BONE [...] Results * POCT glucose (01/07/2024 4:33 PM GROUNDSKEEPER) Glucose, POC 80 70 - 199 mg/dL Blood 01/07/2024 4:33 PM GROUNDSKEEPER 01/07/2024 4:33 PM GROUNDSKEEPER us Mars Montano MD LAB POCT ORDERABLES - DEVICE Final Result [facility] ([place]) [address] Department [place] [address] * CTA Head Neck W WO Contrast (01/07/2024 4:19 PM GROUNDSKEEPER) Anatomical Region Laterality Modality Head and Neck N/A Computed Tomogra phy 01/07/2024 4:43 PM GROUNDSKEEPER Narrative 01/07/2024 5:02 PM GROUNDSKEEPER EXAM DESCRIPTION: ?? CTA HEAD NECK W WO CONTRAST REASON FOR STUDY: ?? headache neck pain aftyer implant ?? Ambulate to triage c/o had an implant put in for sleep apnea on Sunday last week and has had high blood pressure since then. has had a headache on right side since this weekend. talked to primary doctor today who told [...] prominent at C6-C7 where there is likely jjvf-tw-smkinllu spinal canal stenosis. IMPRESSION: BRAIN: No acute [...] PM T: ??01/07/2024 5:02 PM Report ID: [id number] Reading Location: ??[id number] Procedure Note Nigel Mei MD - 01/07/2024 EXAM DESCRIPTION: CTA HEAD NECK W WO CONTRAST REASON FOR STUDY: headache neck pain aftyer implant Ambulate to triage c/o had an implant put in for sleep apnea on and has had high blood pressure since then. has had a headacheon right side since this weekend. talked to primary doctor today whotold her [...] There is an implantable medical generator within [facility] which per provided clinical history [...] prominent at C6-C7 where there is likely tmxl-so-qensopbe spinal canal stenosis. IMPRESSION: BRAIN: No acute intracranial process identified. Chronic left basal ganglia infarct. INTRACRANIAL CTA: 1. No large vessel occlusion or significant intracranial stenosis identified. 2. Mild luminal irregularity of the left middle cerebral artery [id number] without stenosis likely represents intracranial atherosclerotic disease. [...] Nigel Mei M.D. MM: MM Report ID: [id number] Reading Location: [place] [address] Ayla Ambrose MD [facility] PROCEDURES F inal Result * Troponin T high-sensitivity 4-hour (01/07/2024 3:24 PM GROUNDSKEEPER) Trop T hs <6 <=14 ng/L Comment: Interpretive Data For further hscTnT resources including the diagnostic algorithm and an aid in interpretation, copy and paste this link: https://nrl.testcatalog.org/show/hsTrop Current Interpretive Data last revised 2019. Trop T hs delta 0 ng/L [facility] ([place]) Trop T hs interp Insignificant [facility] ([place]) Blood 01/07/2024 3:24 PM GROUNDSKEEPER 01/07/2024 3:26 PM GROUNDSKEEPER us Ayla Ambrose MD LAB BLOOD ORDERABLE S Final Result Performing Organization Address City/[facility]/ZIP Co de Phone Number [facility] SANC[facility] ([place]) [address] [facility] Department [place] [address] * Troponin T high-sensitivity 2-hour (01/07/2024 1:55 PM GROUNDSKEEPER) Trop T hs <6 <=14 ng/L Comment: Interpretive Data For further hscTnT resources including the diagnostic algorithm and an aid in interpretation, copy and paste this link: https://nrl.testcatalog.org/show/hsTrop Current Interpretive Data last revised 2019. Trop T hs delta 0 ng/L [facility] ([place]) Trop T hs interp Insignificant [facility] ([place]) Blood 01/07/2024 1:55 PM GROUNDSKEEPER 01/07/2024 1:56 PM GROUNDSKEEPER us Ayla Ambrose MD LAB BLOOD ORDERABLE S Final Result Performing Organization Address [place]/[facility] Co de Phone Number [facility] S[facility] ([place]) [address] [facility] Department [place] [address] * XR Chest PA Lateral 2 Views (01/07/2024 11:29 AM GROUNDSKEEPER) Anatomical Region Laterality Modality Body, Chest N/A Computed Radiogr aphy 01/07/2024 11:3 7 AM GROUNDSKEEPER Narrative 01/07/2024 11:41 AM GROUNDSKEEPER EXAM DESCRIPTION: XR CHEST PA LATERAL 2 [...] Electronically signed by ??Destinee Pichardo M.D. AG: ZITA D: ??01/07/2024 11:41 AM T: ??01/07/2024 11:41 AM Report ID: [id number] Reading Location: ??[id number] Procedure Note Destinee Pichardo MD - 01/07/2024 [...] Destinee Pichardo M.D. AG: ZITA Report ID: [id number] Reading Location: [id number] Ayla Ambrose MD IMG XR PROCEDURES F inal Result * Troponin T high-sensitivity series (baseline, 2hr, 4hr, 6hr) (01/07/2024 11:11 AM GROUNDSKEEPER) Trop T hs <6 <=14 ng/L Comment: Interpretive Data For further hscTnT resources including the diagnostic algorithm and an aid in interpretation, copy and paste this link: https://nrl.testcatalog.org/show/hsTrop Current Interpretive Data last revised 2019. Blood 01/07/2024 11:1 1 AM GROUNDSKEEPER 01/07/2024 11:14 AM GROUNDSKEEPER Ayla Ambrose MD LAB BLOOD ORDERABLE S Final Result Performing Organization Address City/State/[facility] Co de Phone Number [facility] [place]) [address] [facility] [address] Department [place] [address] * eGFR (01/07/2024 11:11 AM GROUNDSKEEPER) Pathologist [facility] eGFR >90 >=60 mL/min/1. 73 m2 Comment: [...] reviewed 2020. Blood 01/07/2024 11:1 1 AM GROUNDSKEEPER 01/07/2024 11:14 AM GROUNDSKEEPER us Ayla Ambrose MD LAB BLOOD ORDERABLE S Final Result [facility] ([place]) [address] [facility] Department [place] [address] * Differential, auto (01/07/2024 11:11 AM GROUNDSKEEPER) Neutrophil abs 3.3 1.5 - 6.5 K/cumm [...] on 2017. Blood 01/07/2024 11:1 1 AM GROUNDSKEEPER 01/07/2024 11:15 AM GROUNDSKEEPER us Ayla Ambrose MD LAB BLOOD ORDERABLE S Final Result [facility] ([place]) [address] [facility] Department [place] [address] * (ABNORMAL) CBC with auto differential (01/07/2024 11:11 AM GROUNDSKEEPER) WBC 5.9 3.8 - 9.9 K/cumm Hgb [...] ([place]) Blood (Blood, Venous) 01/07/2024 11:11 AM GROUNDSKEEPER 01/07/2024 11:15 AM GROUNDSKEEPER us Ayla Ambrose MD LAB BLOOD ORDERABLE S Final Result [facility] ([place]) [address] [facility] Department [place] [address] * (ABNORMAL) Comprehensive metabolic panel (01/07/2024 11:11 AM GROUNDSKEEPER) Sodium 141 135 - 145 mmol/L Potassium, [...] [facility] ([place]) Blood 01/07/2024 11:1 1 AM GROUNDSKEEPER 01/07/2024 11:14 AM GROUNDSKEEPER Ayla Ambrose MD LAB BLOOD ORDERABLE S Final Result Performing Organization Address City/[facility] Co de Phone Number [facility] ([place]) [address] [facility] Department [place] [address] * ECG 12 lead (01/07/2024 11:02 AM GROUNDSKEEPER) 01/07/2024 11:0 2 AM GROUNDSKEEPER Narrative [facility] - 01/08/2024 1:40 AM GROUNDSKEEPER Vent Rate: 76 bpm RR Interval: 786 msec ND Interval: 142 msec QRS Duration: 84 msec QT Interval: 371 msec QTC Interval: 401 msec P-R-T [place]: 48 - 22 - 67 degrees IMPRESSION: SINUS RHYTHM MINIMAL VOLTAGE CRITERIA FOR LVH, CONSIDER NORMAL VARIANT ??[MEETS CRITERIA IN ONE OF: R(aVL), S(V1), R(V5), R(V5/V6)+S(V1)] NONSPECIFIC T-WAVE ABNORMALITY BORDERLINE ECG Electronically Signed By: Supa Ernandez MD Ayla Ambrose MD ECG ORDERABLES Fin al Result Performing Organization Address City/[facility]/ZIP Co de Phone Number [facility] * POCT glucose (01/01/2024 11:34 AM GROUNDSKEEPER) Glucose, POC 131 70 - 199 mg/dL Blood 01/01/2024 11:3 4 AM GROUNDSKEEPER 01/01/2024 11:34 AM GROUNDSKEEPER Caren Caputo MD LAB POCT ORDERABLES - DEVICE Final Result [facility] [place] [address] [facility] Department [place] [address] * XR Neck Soft Tissue (01/01/2024 11:19 AM GROUNDSKEEPER) Anatomical Region Laterality Modality Head and Neck N/A Computed Radiogr aphy 01/01/2024 12:0 1 PM GROUNDSKEEPER Impressions 01/01/2024 12:01 PM GROUNDSKEEPER Postoperative change of hypoglossal nerve stimulator as described. Electronically signed by: Octavia Chavez M.D. Narrative 01/01/2024 12:01 PM GROUNDSKEEPER EXAMINATION: XR NECK SOFT TISSUE HISTORY: lateral [...] Chest 1 Vw Portable (01/01/2024 11:19 AM GROUNDSKEEPER) Anatomical Region Laterality Modality Body, Chest N/A Computed Radiogr aphy 01/01/2024 11:3 6 AM GROUNDSKEEPER Impressions 01/01/2024 11:36 AM GROUNDSKEEPER No pneumothorax seen. Electronically signed by: Man Becerra M.D. Narrative 01/01/2024 11:36 AM GROUNDSKEEPER EXAMINATION: XR CHEST 1 VIEW HISTORY: The [...] No pneumothorax seen. Electronically signed by: Man Becrera M.D. Caren Caputo MD IMG XR PROCEDURES Kym l Result * POCT glucose (01/01/2024 10:54 AM GROUNDSKEEPER) Glucose, POC 122 70 - 199 mg/dL Blood 01/01/2024 10:5 4 AM GROUNDSKEEPER 01/01/2024 10:54 AM GROUNDSKEEPER Caren Caputo MD LAB POCT ORDERABLES - DEVICE Final Result RUPAL [address] Department [place] [address] * ND AN ELECTIVE ENDOTRACHEAL AIRWAY (01/01/2024 9:06 AM GROUNDSKEEPER) Narrative Elham Barber AA - 01/01/2024 9:06 AM GROUNDSKEEPER Elham Barber AA ? 01/01/2024 ??9:07 AM Airway Patient location: OR Urgency: elective Indications for airway management: anesthesia Difficult airway: no Staff: Supervising provider: Evette Huddleston Jr., MD Placed by: AA: Elham Braber AA Emergent airway documentation: Risks and benefits [...] Result * POCT glucose (01/01/2024 7:21 AM GROUNDSKEEPER) [facility] Glucose, POC 89 70 - 199 mg/dL Blood 01/01/2024 7:21 AM GROUNDSKEEPER 01/01/2024 7:21 AM GROUNDSKEEPER us Caren Caputo MD LAB POCT ORDERABLES - DEVICE Final Result R[facility] [address] Department [place] [address] * eGFR (12/24/2023 11:05 AM GROUNDSKEEPER) [facility] eGFR >90 >=60 mL/min/1. 73 m2 Comment: [...] reviewed 2020. Blood 12/24/2023 11:0 5 AM GROUNDSKEEPER 12/24/2023 11:05 AM GROUNDSKEEPER us Ivet Hoyos [employer] LAB BLOOD ORDERABLES Final Res ult [facility] [address] [address] Department [place] [address] * Basic metabolic panel (12/24/2023 11:05 AM GROUNDSKEEPER) Sodium 145 135 - 145 mmol/L Potassium, pl 4.0 3.3 - 4.9 mmol/L [facility] Chloride 109 97 - 110 mmol/L [facility] CH CO2 28 22 - 32 mmol/L [facility] CH Anion gap 8 2 - 15 mmol/L [facility] BUN 19 6 - 25 mg/dL [facility] Creatinine 0.68 0.60 - 1.10 mg/dL [facility] Glucose 72 70 - 199 mg/dL [facility] Comment: Interpretive Data Fasting glucose >/= 126 [...] classification and Diagnosis of Diabetes Diabetes Care 202; 46: S19-S40. Current interpretive data was last revised 2022. Calcium 9.1 8.5 - 10.3 mg/dL [facility] Blood 12/24/2023 11:0 5 AM GROUNDSKEEPER 12/24/2023 11:05 AM GROUNDSKEEPER us Ivet Hoyos [employer] LAB BLOOD ORDERABLES Final Res ult [facility] [address] [address] Department [place] [address] * Differential, auto (12/24/2023 10:56 AM GROUNDSKEEPER) Neutrophil abs 3.1 1.5 - 6.5 K/cumm Imm gran abs 0.0 0.0 - 0.1 K/cumm [facility] Lymphocyte abs 1.6 0.8 - 3.3 K/cumm [facility] Monocyte abs 0.6 0.2 - 0.8 K/cumm [facility] Eosinophil abs 0.1 0.0 - 0.5 K/cumm [facility] Basophil abs 0.0 0.0 - 0.1 K/cumm [facility] Neutrophil pct 57.4 % [facility] Comment: Interpretive Data Percent cell count reference ranges are not reported, since discordance with absolute values may lead to misinterpretation of CBC data. Current Interpretive Data was last revised on 2017. Imm gran pct 0.4 % [facility] Comment: Interpretive Data Percent cell count reference ranges are not reported, since discordance with absolute values may lead to misinterpretation of CBC data. Current Interpretive Data was last revised on 2017. Lymphocyte pct 29.0 % [facility] Comment: Interpretive Data Percent cell count reference ranges are not reported, since discordance with absolute values may lead to misinterpretation of CBC data. Current Interpretive Data was last revised on 2017. Monocyte pct 11.1 % [facility] Comment: Interpretive Data Percent cell count reference ranges are not reported, since discordance with absolute values may lead to misinterpretation of CBC data. Current Interpretive Data was last revised on 2017. Eosinophil pct 1.7 % [facility] Comment: Interpretive Data Percent cell [...] on 2017. Blood 12/24/2023 10:5 6 AM GROUNDSKEEPER 12/24/2023 11:08 AM GROUNDSKEEPER us Ivet Hoyos [employer] LAB BLOOD ORDERABLES Final Res [facility] [address] [address] Department [place] [address] * Urinalysis reflex to microscopic and culture Urine, clean voided (12/24/2023 10:56 AM GROUNDSKEEPER) Color, ur Yellow Yellow Clarity, ur Clear Clear [facility] Specific gravity, ur 1.017 1.003 - 1.030 [facility] pH, urine 6.0 [facility] Comment: Interpretive Data ? Urine pH is affected by diet, medications, systemic acid-base disturbances, and renal tubular function. ??pH may affect urinary stone formation. ??For example, urine pH below 6.0 may help reduce the tendency for calcium phosphate stones and pH greater than 6.0 may reduce the tendency for uric acid stone formation. Source: [facility] [employer] Current Interpretive Data was last revised on [...] [facility] Urine, clean voided 12/24/2023 10:56 AM GROUNDSKEEPER 12/24/2023 12:24 PM GROUNDSKEEPER us Caren Caputo MD LAB MICROBIOLOGY - GEN ERAL ORDERABLES Final Result [facility] [address] [address] Department [place] [address] * (ABNORMAL) CBC with auto differential (12/24/2023 10:56 AM GROUNDSKEEPER) WBC 5.4 3.8 - 9.9 K/cumm Hgb 12.7 11.9 - 15.5 g/dL [facility] CH Hct 38.8 35.6 - 45.5 % [facility] CH Plt 159 150 - 400 K/cumm [facility] MPV 9.4 9.1 - 12.3 fL [facility] RBC 3.58(L) 3.90 - 5.20 M/cumm [facility] MCV 108.4(H) 81.3 - 96.4 fL [facility] MCH 35.5(H) 27.1 - 33.3 pg [facility] CH MCHC 32.7 32.3 - 35.7 g/dL [facility] CH RDW CV 12.3 11.1 - 14.9 % [facility] CH RDW SD 49.0(H) 35.7 - 48.1 fL [facility] NRBC abs 0.00 0.00 - 0.01 K/cumm [facility] Blood 12/24/2023 10:5 6 AM GROUNDSKEEPER 12/24/2023 11:08 AM GROUNDSKEEPER us Ivet Hoyos NP LAB BLOOD ORDERABLES Final Res ult [facility] [place] [address] Department [place] [address] * Hemoglobin A1c (12/24/2023 10:56 AM GROUNDSKEEPER) Hgb A1C 5.0 4.0 - 5.6 % Estimated Average Glucose 97 mg/dL [facility] Comment: The ADA recommends reporting an estimated Average Glucose (eAG) with all Hemoglobin A1c results using the equation derived from a study of 507 normal and diabetic adults. ??Minority populations were underrepresented and children were not included. ?? (Diabetes Care 31:1801-7150, 2008). ??The eAG is not equivalent to a fasting glucose. Blood 12/24/2023 10:5 6 AM GROUNDSKEEPER 12/24/2023 11:08 AM GROUNDSKEEPER Ivet Hoyos [employer] LAB BLOOD ORDERABLES Final Res ult Performing Organization Address [place]/[facility] Co de Phone Number [facility] [place] [address] [place] [address] * Dexa Axial and Forearm Bone Density Scan (09/08/2022 1:34 PM CDT) Anatomical Region Laterality Modality Wrist, Body N/A Other 09/09/2022 6:09 AM CDT Narrative 09/09/2022 6:11 AM CDT EXAM DESCRIPTION: DEXA AXIAL AND FOREARM BONE DENSITY SCAN REASON FOR STUDY: 62 y/o ?? year old ??F ??with given history of: ?? Hyperparathyroidism. ??Postmenopausal status. ??Osteoporosis. ? Rerolling Machine Operator/Model: G2 [employer] SL ([id number]/N [id number]) CLINICAL INFORMATION: Current height: ??63.5 ??inches ? [...] Electronically signed by ??Cecy Ratliff M.D. TW: BAKARI D: ??09/09/2022 6:11 AM T: ??09/09/2022 6:11 AM Report ID: [id number] Reading Location: ??[id number] Procedure Note Cecy Ratliff MD - 09/09/2022 EXAM DESCRIPTION: DEXA AXIAL AND FOREARM BONE DENSITY SCAN REASON FOR STUDY: 62 y/o year old F with given history of: Hyperparathyroidism. Postmenopausal status. Osteoporosis. Rerolling Machine Operator/Model: [employer] ([id number]/N [id number]) CLINICAL INFORMATION: Current height: 63.5 inches Maximum [...] Electronically signed by Cecy Ratliff M.D. TW: BAKARI Report ID: [id number] Reading Location: [place] [address] Dylan Raul To MD IM DXA PROCEDURES Final Result * Screening Mammogram [...] Cholesterol 139 30 - 199 mg/dL [facility] Comment: Interpretive Data Ages < or [...] on 2017. Triglycerides 36 <=149 mg/dL [facility] Comment: Interpretive Data Ages < or [...] revised on 2017. HDL 72 >=40 mg/dL [facility] Comment: Interpretive Data Ages < or [...] on 2017. LDL, calculated 60 <=129 mg/dL [facility] Comment: Interpretive Data Ages < or [...] revised on 2017. Non-HDL Cholesterol 67 mg/dL [facility] Comment: Interpretive Data Ages [...] last revised on 2017. Chol/HDL ratio 2 [facility] Blood 10/10/2021 1:52 PM CDT 10/10/2021 2:07 PM CDT us Mauricio Chaudhary MD LAB BLOOD ORDERABLES Final Result [facility] Department [place] [address] from Last 3 Months or Most Recently Relevant to Health Maintenance Insurance [place] Advance Directives For more information, please contact: [phone] * Full Code (Latest Code Status on File) Date Activated Date Inactivated Comments 10/10/2021 5:37 PM 10/11/2021 8:50 PM * Full Code Date Activated Date Inactivated Comments 08/18/2017 6:39 PM 08/22/2017 3:42 PM Care Teams Shrimp Pond Laborer Relationship Specialty Start Date End Date Destinee Conroy MD [address] [place] [address] PCP - General 05/05/16 Desire Sams, BRICE Registered Nurse 04/03/17 Roscoe Mccollum MD [address] [place] [address] [address] Anesthesiologist Pain Management 12/21/21
--- OUTSIDE RECORDS SUMMARY | 2024-03-03 13:56 | XMS_ITS | Encounter Summary ---
Author Organization [facility] Address [address] [place] [address] Dr. Quinones: [place] [address] Care Team Providers Care Bobbin Handler Name Role Phone Jona Bravo MD Primary Care Provider [phone] Encounter Details Date Type Department Care Team (Late st Contact Info) Description 03/03/2024 External Device Data Initial Department [address] [place] [address] Dr QUINONES: [place] [address] [facility], Social History Tobacco Use Types Packs/Day Years [...] often do you attend chur ch or taoism services? 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 Not on file Not on file documented as of this encounter Plan of Treatment Upcoming Encounters Date Type Department Care Team (Late st Contact Info) Description 04/23/2024 1:20 PM CDT Office Visit [address] [place] [id number] Jona Bravo MD [address] [place] [address] [address] [place] [address] 08/25/2024 10:40 AM CDT Office Visit [address] [place] [address] Jona Bravo MD [address] [place] [address] [address] [place] [phone] documented as of this encounter Visit Diagnoses Not on filedocumented in this encounter Care Teams Bobbin Handler Relationship Specialty Start Date End Date Jona Bravo MD PCP - General Internal Medicine 11/25/15 documented as of this encounter
--- OUTSIDE RECORDS SUMMARY | 2024-03-03 13:56 | XMS_ITS | Data Portability ---
Author Organization [facility] [address], Main Office Address [address] [place] [address] Assessment No assessment recorded. Plan of Treatment [...] Care in Diabe shahnaz(A DA). Not Available [place] [address] [place], [address], 09/14/2021 06:00:34 09/08/19 22 09/14/2021 VITAM IN [...] /MS is recom dani d: order code 46347 (salty ents >2yrs ). See Note 1 Note 1 For addit ional infor axel valderrama refer to http: //lisa Alston stDia gnost ics.c om/fa q/FAQ 199 (This link is being provi ded for infor laith pereyra/ [place] purpo ses only. ) Not Available [facility] [place] [address] [place], [address], 09/14/2021 06:00:33 09/08/19 22 09/14/2021 THYRO ID PANEL WITH TSH T3 uptake 32 % 22-35 normal Not Available [facility] [place] [address] [place], [address], 09/14/2021 06:00:32 09/08/19 22 09/14/2021 THYRO ID PANEL WITH TSH T4 (thyroxine), total 7.4 mcg/d L 5.1-11 .9 normal Not Available [facility] [place] [address] [place], [address], 09/14/2021 06:00:32 09/08/19 22 09/14/2021 THYRO ID PANEL WITH TSH free T4 index (T7) 2.4 1.4-3. 8 normal Not Available [facility] [place] [address] [place], [address], 09/14/2021 06:00:32 09/08/1909/14/2021 THYRO ID PANEL WITH TSH TSH 2.72 mIU/L 0.40-4 .50 normal Not Available [facility] [address], [address], 09/14/2021 06:00:32 09/08/19 22 09/14/2021 INSUL IN [...] (dete kim, gluli sine) . Not Available [facility] [address], [address], 09/14/2021 06:00:31 09/08/1909/14/2021 CORTI JUAN, TOTAL cortisol, total 4.4 mcg/d L normal Refer ence Range : For 8 a.m.( 7-9 a.m.) Speci men: 4.0-2 2.0 Refer ence Range : For 4 p.m.( 3-5 p.m.) Speci men: 3.0-1 7.0 * Pleas e inter pret above resul ts accor dingl y * Not Available [facility] [place] [address] [place], [address], 09/14/2021 06:00:30 09/08/1909/14/2021 THYRO ID PEROX IDASE AND THYRO GLOBU HERO ANTIB ODIES thyroglobuli n antibodies <1 IU/mL < or = 1 normal Not Available [address], [address], 09/14/2021 06:00:29 09/08/19 22 09/14/2021 THYRO ID PEROX IDASE AND THYRO GLOBU HERO ANTIB ODIES thyroid peroxidase antibodies 1 IU/mL <9 normal Not Available [address], [address], 09/14/2021 06:00:29 09/08/19 22 09/14/2021 ACTH, PLASM A acth, plasma <5 pg/mL 6-50 low Refer ence range appli es only to speci mens colle cted betwe en 7am-1 0am. Not Available [address], [address], 09/14/2021 06:00:28 09/08/19 22 09/14/2021 COMPR EHENS KRISTYN METAB OLIC PANEL glucose 81 mg/dL 65-99 normal Fasti ng refer ence inter kathy Not Available [address], [address], 09/14/2021 06:00:27 09/08/19 22 09/14/2021 COMPR EHENS KRISTYN METAB OLIC PANEL urea nitrogen (BUN) 23 mg/dL 7-25 normal Not Available [address], [address], 09/14/2021 06:00:27 09/08/19 22 09/14/2021 COMPR EHENS KRISTYN METAB OLIC PANEL creatinine 0.70 mg/dL 0.50-1 .05 normal Not Available [address], [address], 09/14/2021 06:00:27 09/08/19 22 09/14/2021 COMPR EHENS [...] kdoqi /gfr% 5Fcal culat or Not Available [address] [place], [address], 09/14/2021 06:00:27 09/08/19 22 09/14/2021 COMPR EHENS KRISTYN METAB OLIC PANEL BUN/creatini ne ratio not applic able (calc ) 6-22 Not Available [address], [address], 09/14/2021 06:00:27 09/08/19 22 09/14/2021 COMPR EHENS KRISTYN METAB OLIC PANEL sodium 141 mmol/ L 135-14 6 normal Not Available [address], [address], 09/14/2021 06:00:27 09/08/19 22 09/14/2021 COMPR EHENS KRISTYN METAB OLIC PANEL potassium 3.7 mmol/ L 3.5-5. 3 normal Not Available [address], [address], 09/14/2021 06:00:27 09/08/19 22 09/14/2021 COMPR EHENS KRISTYN METAB OLIC PANEL chloride 103 mmol/ L 98-110 normal Not Available [facility] [address], [address], 09/14/2021 06:00:27 09/08/19 22 09/14/2021 COMPR EHENS KRISTYN METAB OLIC PANEL carbon dioxide 33 mmol/ L 20-32 high Not Available [address], [address], 09/14/2021 06:00:27 09/08/19 22 09/14/2021 COMPR EHENS KRISTYN METAB OLIC PANEL calcium 9.2 mg/dL 8.6-10 .4 normal Not Available [address], [address], 09/14/2021 06:00:27 09/08/19 22 09/14/2021 COMPR EHENS KRISTYN METAB OLIC PANEL protein, total 6.0 g/dL 6.1-8. 1 low Not Available [address], [address], 09/14/2021 06:00:27 09/08/19 22 09/14/2021 COMPR EHENS KRISTYN METAB OLIC PANEL albumin 4.1 g/dL 3.6-5. 1 normal Not Available [address], [address], 09/14/2021 06:00:27 09/08/19 22 09/14/2021 COMPR EHENS KRISTYN METAB OLIC PANEL globulin 1.9 g/dL_ (calc ) 1.9-3. 7 normal Not Available [address], [address], 09/14/2021 06:00:27 09/08/19 22 09/14/2021 COMPR EHENS KRISTYN METAB OLIC PANEL albumin/glob ulin ratio 2.2 (calc ) 1.0-2. 5 normal Not Available [address], [address], 09/14/2021 06:00:27 09/08/19 22 09/14/2021 COMPR EHENS KRISTYN METAB OLIC PANEL bilirubin, total 0.6 mg/dL 0.2-1. 2 normal Not Available [address], [address], 09/14/2021 06:00:27 09/08/19 22 09/14/2021 COMPR EHENS KRISTYN METAB OLIC PANEL alkaline phosphatase 87 U/L 37-153 normal Not Available [facility] [address], [address], 09/14/2021 06:00:27 09/08/19 22 09/14/2021 COMPR EHENS KRISTYN METAB OLIC PANEL AST 34 U/L 10-35 normal Not Available [facility] [address], [address], 09/14/2021 06:00:27 09/08/19 22 09/14/2021 COMPR EHENS KRISTYN METAB OLIC PANEL ALT 41 U/L 6-29 high Not Available [address], [address], 09/14/2021 06:00:27 09/08/19 22 09/14/2021 PHOSP HATE ( PHOSP HORUS ) phosphate ( phosphorus) 4.1 mg/dL 2.5-4. 5 normal Not Available [address], [address], 09/14/2021 06:00:26 09/08/1909/14/2021 PTH, INTAC T AND [...] or Low Amanda l High Not Available [facility] [address], [address], 09/14/2021 06:00:24 09/08/1909/14/2021 PTH, INTAC T AND CALCI UM calcium 9.2 mg/dL 8.6-10 .4 normal Not Available [address], [address], 09/14/2021 06:00:24 09/09/19 22 09/16/2021 PANCR EATIC [...] subst ituti on thera py. Not Available [address], [address], 09/17/2021 17:37:45 09/09/19 22 09/16/2021 FECAL FAT, QUALI TATIV E fecal fat, qualitative abnorm al normal abnormal Not Available [address], [address], 09/17/2021 17:37:45 09/09/19 22 09/16/2021 CALCI UM, 24 HOUR URINE (W/ CREAT ININE ) calcium/crea tinine ratio 90 mg/g_ creat 30-275 normal Not Available [address], [address], 09/17/2021 17:37:44 09/09/19 22 09/16/2021 CALCI UM, 24 HOUR URINE (W/ CREAT ININE ) calcium, 24 hour urine 123 mg/24 _h normal Refer ence Range 35-25 0 Low calci um diet 35-20 0 Not Available [address], [address], 09/17/2021 17:37:44 09/09/19 22 09/16/2021 CALCI UM, 24 HOUR URINE (W/ CREAT ININE ) creatinine, 24 hour urine 1.38 g/24_ h 0.50-2 .15 normal Not Available [facility] [address] [place], [address], 09/17/2021 17:37:44 10/08/19 22 10/08/2021 ACTH, PLASM A acth, plasma 21.9 pg/mL 7.2-63 .3 ACTH refer ence inter kathy for sampl es colle cted betwe en 7 and 10 AM. Perfo rmed at: [facility] [address], [place] [address] Lab Direc tor: Dev morel PhD, Phone : [phone] Not Available [facility] (Lab) [address] [place], [address], 10/08/2021 16:09:46 10/08/19 22 10/07/2021 CORTI JUAN, TOTAL , A.M. beverly AM 11.3 ug/dL 4.5-22 .7 Not Available [facility] (Lab) [address] [place], [address], 10/07/2021 13:57:03 12/17/19 22 12/18/2021 CALCI UM, IONIZ ED calcium, ionized 5.1 mg/dL 4.8-5. 6 normal Not Available [email or web address] [address] [place], [place] [address], [address], 12/18/2021 06:34:00 12/17/19 22 12/18/2021 TSH+F REE T4 TSH 0.95 mIU/L 0.40-4 .50 normal Not Available [email or web address] [address] [facility] [place], [address], 12/18/2021 06:34:00 12/17/19 22 12/18/2021 TSH+F REE T4 T4, free 1.0 NG/dL 0.8-1. 8 normal Not Available [email or web address] [place] [address] [place], [address], 12/18/2021 06:34:00 12/17/19 22 12/18/2021 VITAM IN [...] /MS is recom dani d: order code 29834 (salty ents >2yrs ). See Note 1 Note 1 For addit ional infor axel valderrama e refer to http: //[facility] gui Alston stDia gnost ics.c om/fa q/FAQ 199 (This link is being provi ded for infor laith pereyra/ [place] purpo ses only. ) Not Available [facility] [place] [address] [place], [address], 12/18/2021 06:34:00 12/17/19 22 12/18/2021 T3, FREE T3, free 3.1 pg/mL 2.3-4. 2 normal Not Available [facility] [address] [place], [address], 12/18/2021 06:33:59 12/17/19 22 12/18/2021 COMPR EHENS KRISTYN METAB OLIC PANEL glucose 100 mg/dL 65-99 high Fasti ng refer ence inter kathy For someo ne witho ut known diabe shahnaz, a gluco se value betwe en 100 and 125 mg/dL is consi stent with predi abete s and shoul d be confi rmed with a follo w-up test. Not Available [place] [address] [place], [address], 12/18/2021 06:33:59 12/17/19 22 12/18/2021 COMPR EHENS KRISTYN METAB OLIC PANEL urea nitrogen (BUN) 20 mg/dL 7-25 normal Not Available [place] [address] [place], [address], 12/18/2021 06:33:59 12/17/19 22 12/18/2021 COMPR EHENS KRISTYN METAB OLIC PANEL creatinine 0.73 mg/dL 0.50-1 .05 normal Not Available [place] [address] [place], [address], 12/18/2021 06:33:59 12/17/19 22 12/18/2021 COMPR EHENS [...] kdoqi /gfr% 5Fcal culat or Not Available [place] [address] [place], [address], 12/18/2021 06:33:59 12/17/19 22 12/18/2021 COMPR EHENS KRISTYN METAB OLIC PANEL BUN/creatini ne ratio not applic able (calc ) 6-22 Not Available [address], [address], 12/18/2021 06:33:59 12/17/19 22 12/18/2021 COMPR EHENS KRISTYN METAB OLIC PANEL sodium 143 mmol/ L 135-14 6 normal Not Available [address], [address], 12/18/2021 06:33:59 12/17/19 22 12/18/2021 COMPR EHENS KRISTYN METAB OLIC PANEL potassium 4.4 mmol/ L 3.5-5. 3 normal Not Available [address], [address], 12/18/2021 06:33:59 12/17/19 22 12/18/2021 COMPR EHENS KRISTYN METAB OLIC PANEL chloride 104 mmol/ L 98-110 normal Not Available [address], [address], 12/18/2021 06:33:59 12/17/19 22 12/18/2021 COMPR EHENS KRISTYN METAB OLIC PANEL carbon dioxide 34 mmol/ L 20-32 high Not Available [address], [address], 12/18/2021 06:33:59 12/17/19 22 12/18/2021 COMPR EHENS KRISTYN METAB OLIC PANEL calcium 9.4 mg/dL 8.6-10 .4 normal Not Available [address], [address], 12/18/2021 06:33:59 12/17/19 22 12/18/2021 COMPR EHENS KRISTYN METAB OLIC PANEL protein, total 6.1 g/dL 6.1-8. 1 normal Not Available [address], [address], 12/18/2021 06:33:59 12/17/19 22 12/18/2021 COMPR EHENS KRISTYN METAB OLIC PANEL albumin 4.2 g/dL 3.6-5. 1 normal Not Available [address], [address], 12/18/2021 06:33:59 12/17/19 22 12/18/2021 COMPR EHENS KRISTYN METAB OLIC PANEL globulin 1.9 g/dL_ (calc ) 1.9-3. 7 normal Not Available [address], [address], 12/18/2021 06:33:59 12/17/19 22 12/18/2021 COMPR EHENS KRISTYN METAB OLIC PANEL albumin/glob ulin ratio 2.2 (calc ) 1.0-2. 5 normal Not Available [address], [address], 12/18/2021 06:33:59 12/17/19 22 12/18/2021 COMPR EHENS KRISTYN METAB OLIC PANEL bilirubin, total 1.0 mg/dL 0.2-1. 2 normal Not Available [address], [address], 12/18/2021 06:33:59 12/17/19 22 12/18/2021 COMPR EHENS KRISTYN METAB OLIC PANEL alkaline phosphatase 84 U/L 37-153 normal Not Available [address], [address], 12/18/2021 06:33:59 12/17/19 22 12/18/2021 COMPR EHENS KRISTYN METAB OLIC PANEL AST 32 U/L 10-35 normal Not Available [address], [address], 12/18/2021 06:33:59 12/17/19 22 12/18/2021 COMPR EHENS KRISTYN METAB OLIC PANEL ALT 37 U/L 6-29 high Not Available [address], [address], 12/18/2021 06:33:59 12/17/19 22 12/18/2021 PHOSP HATE ( PHOSP HORUS ) phosphate ( phosphorus) 4.0 mg/dL 2.5-4. 5 normal Not Available [facility] [address], [address], 12/18/2021 06:33:58 12/17/1912/18/2021 PTH, INTAC T AND [...] or Low Amanda l High Not Available [facility] [address], [address], 12/18/2021 06:33:58 12/17/1912/18/2021 PTH, INTAC T AND CALCI UM calcium 9.4 mg/dL 8.6-10 .4 normal Not Available [facility] [address], [address], 12/18/2021 06:33:58 03/03/19 23 03/17/2022 TSH+F REE T4 TSH 1.96 mIU/L 0.40-4 .50 normal Not Available [facility] [address], [address], 03/17/2022 21:44:15 03/03/19 23 03/17/2022 TSH+F REE T4 T4, free 1.0 NG/dL 0.8-1. 8 normal Not Available [facility] [address], [address], 03/17/2022 21:44:15 03/03/19 23 03/17/2022 T3, FREE T3, free 3.5 pg/mL 2.3-4. 2 normal Not Available [facility] [address] , [place], [address], 03/17/2022 21:44:14 03/03/1903/17/2022 THYRO ID PEROX IDASE ANTIB ODIES thyroid peroxidase antibodies 2 IU/mL <9 normal Not Available [facility] [address], [place], [address], 03/17/2022 21:44:14 03/03/19 23 03/17/2022 CHROM OGRAN [...] not be inter prete d as absol [place] evide nce of the prese nce or absen ce of disea se. This test was devel oped and its [place] tical perfo rmanc e gus cteri stics have been deter mined by [facility] [place] [employer] . It has not been clear ed or appro otilia by FDA. This assay has been valid ated pursu ant to the CLIA regul ation s and is used for clini fortunato purpo ses. Not Available [facility] [place] [address] [place], [address], 03/17/2022 21:44:13 03/03/19 23 03/17/2022 VASOA CTIVE [...] not be inter prete d as absol [place] evide nce of the prese nce or [...] for clini fortunato purpo ses. Not Available [facility] [place] [address] [place], [address], 03/17/2022 21:44:13 03/03/19 23 03/17/2022 GLUCA SOUMYA glucagon 15 pg/mL 11-78 This test was perfo rmed using the Gluca soumya CATHY metho d stand ardiz ed again st the Inter natio nal refer ence prepa ratio n 69/19 4 and has a new refer ence range . Not Available [facility] [place] [address] [place], [address], 03/17/2022 21:44:12 03/03/19 23 03/17/2022 COMPR EHENS KRISTYN METAB OLIC PANEL glucose 89 mg/dL 65-99 normal Fasti ng refer ence inter kathy Not Available [facility] [place] [address] [place], [address], 03/17/2022 21:44:11 03/03/19 23 03/17/2022 COMPR EHENS KRISTYN METAB OLIC PANEL urea nitrogen (BUN) 22 mg/dL 7-25 normal Not Available [address], [address], 03/17/2022 21:44:11 03/03/19 23 03/17/2022 COMPR EHENS KRISTYN METAB OLIC PANEL creatinine 0.66 mg/dL 0.50-1 .05 normal Not Available [address], [address], 03/17/2022 21:44:11 03/03/19 23 03/17/2022 COMPR EHENS [...] kdoqi /gfr% 5Fcal culat or Not Available [address], [address], 03/17/2022 21:44:11 03/03/19 23 03/17/2022 COMPR EHENS KRISTYN METAB OLIC PANEL BUN/creatini ne ratio not applic able (calc ) 6-22 Not Available [address], [address], 03/17/2022 21:44:11 03/03/19 23 03/17/2022 COMPR EHENS KRISTYN METAB OLIC PANEL sodium 143 mmol/ L 135-14 6 normal Not Available [address], [address], 03/17/2022 21:44:11 03/03/19 23 03/17/2022 COMPR EHENS KRISTYN METAB OLIC PANEL potassium 4.1 mmol/ L 3.5-5. 3 normal Not Available [address], [address], 03/17/2022 21:44:11 03/03/19 23 03/17/2022 COMPR EHENS KRISTYN METAB OLIC PANEL chloride 107 mmol/ L 98-110 normal Not Available [address], [address], 03/17/2022 21:44:11 03/03/19 23 03/17/2022 COMPR EHENS KRISTYN METAB OLIC PANEL carbon dioxide 33 mmol/ L 20-32 high Not Available [address], [address], 03/17/2022 21:44:11 03/03/19 23 03/17/2022 COMPR EHENS KRISTYN METAB OLIC PANEL calcium 9.5 mg/dL 8.6-10 .4 normal Not Available [address], [address], 03/17/2022 21:44:11 03/03/19 23 03/17/2022 COMPR EHENS KRISTYN METAB OLIC PANEL protein, total 5.8 g/dL 6.1-8. 1 low Not Available [address], [address], 03/17/2022 21:44:11 03/03/19 23 03/17/2022 COMPR EHENS KRISTYN METAB OLIC PANEL albumin 4.0 g/dL 3.6-5. 1 normal Not Available [address], [address], 03/17/2022 21:44:11 03/03/19 23 03/17/2022 COMPR EHENS KRISTYN METAB OLIC PANEL globulin 1.8 g/dL_ (calc ) 1.9-3. 7 low Not Available [address], [address], 03/17/2022 21:44:11 03/03/19 23 03/17/2022 COMPR EHENS KRISTYN METAB OLIC PANEL albumin/glob ulin ratio 2.2 (calc ) 1.0-2. 5 normal Not Available [address], [address], 03/17/2022 21:44:11 03/03/19 23 03/17/2022 COMPR EHENS KRISTYN METAB OLIC PANEL bilirubin, total 0.6 mg/dL 0.2-1. 2 normal Not Available [address], [address], 03/17/2022 21:44:11 03/03/19 23 03/17/2022 COMPR EHENS KRISTYN METAB OLIC PANEL alkaline phosphatase 89 U/L 37-153 normal Not Available [address], [address], 03/17/2022 21:44:11 03/03/19 23 03/17/2022 COMPR EHENS KRISTYN METAB OLIC PANEL AST 28 U/L 10-35 normal Not Available [address], [address], 03/17/2022 21:44:11 03/03/19 23 03/17/2022 COMPR EHENS KRISTYN METAB OLIC PANEL ALT 31 U/L 6-29 high Not Available [address], [address], 03/17/2022 21:44:11 03/13/19 23 03/31/2022 5 HIAA, 24 HOUR URINE , W/O CREAT ININE total volume 2500 mL Not Available [address], [address], 03/31/2022 16:00:55 03/13/19 23 03/31/2022 5 HIAA, [...] for clini fortunato purpo ses. Not Available [email or web address] [place] [address] [place], [address], 03/31/2022 16:00:55 06/06/19 23 06/07/2022 COMPR EHENS KRISTYN METAB OLIC PANEL glucose 89 mg/dL 65-99 normal Fasti ng refer ence inter kathy Not Available [email or web address] [place] [address] [place], [address], 06/07/2022 16:08:33 06/06/19 23 06/07/2022 COMPR EHENS KRISTYN METAB OLIC PANEL urea nitrogen (BUN) 20 mg/dL 7-25 normal Not Available [facility] [address], [address], 06/07/2022 16:08:33 06/06/19 23 06/07/2022 COMPR EHENS KRISTYN METAB OLIC PANEL creatinine 0.78 mg/dL 0.50-1 .05 normal Not Available [facility] [address], [address], 06/07/2022 16:08:33 06/06/19 23 06/07/2022 COMPR EHENS [...] kdoqi /gfr% 5Fcal culat or Not Available [address], [address], 06/07/2022 16:08:33 06/06/19 23 06/07/2022 COMPR EHENS KRISTYN METAB OLIC PANEL BUN/creatini ne ratio NOT APPLIC ABLE (calc ) 6-22 Not Available [address], [address], 06/07/2022 16:08:33 06/06/19 23 06/07/2022 COMPR EHENS KRISTYN METAB OLIC PANEL sodium 141 mmol/ L 135-14 6 normal Not Available [address], [address], 06/07/2022 16:08:33 06/06/19 23 06/07/2022 COMPR EHENS KRISTYN METAB OLIC PANEL potassium 3.7 mmol/ L 3.5-5. 3 normal Not Available [address], [address], 06/07/2022 16:08:33 06/06/19 23 06/07/2022 COMPR EHENS KRISTYN METAB OLIC PANEL chloride 102 mmol/ L 98-110 normal Not Available [address], [address], 06/07/2022 16:08:33 06/06/19 23 06/07/2022 COMPR EHENS KRISTYN METAB OLIC PANEL carbon dioxide 33 mmol/ L 20-32 high Not Available [address], [address], 06/07/2022 16:08:33 06/06/19 23 06/07/2022 COMPR EHENS KRISTYN METAB OLIC PANEL calcium 9.2 mg/dL 8.6-10 .4 normal Not Available [address], [address], 06/07/2022 16:08:33 06/06/19 23 06/07/2022 COMPR EHENS KRISTYN METAB OLIC PANEL protein, total 6.1 g/dL 6.1-8. 1 normal Not Available [address], [address], 06/07/2022 16:08:33 06/06/19 23 06/07/2022 COMPR EHENS KRISTYN METAB OLIC PANEL albumin 4.1 g/dL 3.6-5. 1 normal Not Available [address], [address], 06/07/2022 16:08:33 06/06/19 23 06/07/2022 COMPR EHENS KRISTYN METAB OLIC PANEL globulin 2.0 g/dL_ (calc ) 1.9-3. 7 normal Not Available [address], [address], 06/07/2022 16:08:33 06/06/19 23 06/07/2022 COMPR EHENS KRISTYN METAB OLIC PANEL albumin/glob ulin ratio 2.1 (calc ) 1.0-2. 5 normal Not Available [address], [address], 06/07/2022 16:08:33 06/06/19 23 06/07/2022 COMPR EHENS KRISTYN METAB OLIC PANEL bilirubin, total 0.8 mg/dL 0.2-1. 2 normal Not Available [address], [address], 06/07/2022 16:08:33 06/06/19 23 06/07/2022 COMPR EHENS KRISTYN METAB OLIC PANEL alkaline phosphatase 77 U/L 37-153 normal Not Available [facility] [address], [address], 06/07/2022 16:08:33 06/06/19 23 06/07/2022 COMPR EHENS KRISTYN METAB OLIC PANEL AST 23 U/L 10-35 normal Not Available [facility] [address], [address], 06/07/2022 16:08:33 06/06/19 23 06/07/2022 COMPR EHENS KRISTYN METAB OLIC PANEL ALT 27 U/L 6-29 normal Not Available [email or web address] [address], [address], 06/07/2022 16:08:33 06/06/19 23 06/07/2022 THYRO ID PEROX IDASE ANTIB ODIES thyroid peroxidase antibodies 1 IU/mL <9 normal Not Available [facility] [address], [address], 06/07/2022 16:08:34 06/06/1906/07/2022 INSUL IN insulin 9.7 uIU/m L normal Refer ence Range < or = 18.4 Risk: Optim al < or = 18.4 Moder ate NA High >18.4 Adult cardi ovasc ular event risk categ ory cut point s (opti mal, moder ate, high) are based on Insul in Refer ence Inter kathy studi es perfo rmed at [facility] in 2021. Not Available [facility] [address], [address], 06/07/2022 16:08:35 06/06/19 23 06/07/2022 T3, FREE T3, free 3.0 pg/mL 2.3-4. 2 normal Not Available [facility] [address], [address], 06/07/2022 16:08:36 06/06/19 23 06/07/2022 TSH+F REE T4 TSH 1.18 mIU/L 0.40-4 .50 normal Not Available [email or web address] [address], [address], 06/07/2022 16:08:36 06/06/19 23 06/07/2022 TSH+F REE T4 T4, free 1.1 NG/dL 0.8-1. 8 normal Not Available [facility] [address] [place], [address], 06/07/2022 16:08:36 06/06/19 23 06/07/2022 HEMOG LOBIN [...] Care in Diabe shahnaz(A DA). Not Available [facility] [address], [place], [address], 06/07/2022 16:08:37 09/09/19 22 09/08/2021 US, thyro id No observ ation record ed. [id number] [facility] [address] [place], [address], 04/06/2022 01:35:44 09/09/19 22 09/08/2021 bone densi ty No observ ation record ed. [id number] [facility] [address] [place], [address], 04/06/2022 01:35:44 09/09/19 22 DEXA, axial skele ton [facility] [address] [facility] [place] [address] [phone] Consuelo angelo Name: PETE LLANSO Renato A Access ion #: [id number] Sex: F : 1959 6 7 [...] e of 0.1. Page 1 of 2 [facility] Consuelo angelo Name: PETE LLANOS Renato A Access ion #: [id number] Sex: F : 1959 6 7 [...] MD (CT) (CT) Page 2 of 2 [id number] [facility] (Imaging) [address] [place], [address], 04/06/2022 01:35:44 09/09/19 US, head + neck, soft tissu e [facility] [address] [place] [address] Consuelo angelo Name: PETE LLANOS A Access ion #: [id number] Sex: F : 1959 6 7 [...] r blood flow. Page 1 of 2 [facility] t Name: PETE LLANOS A Access ion #: [id number] Sex: F : 1959 6 [birth year] [...] by: Judah gross MD Signed Date: 09/09/19 12:04 PM (CT) Dictat ed by: Judah gross MD (CT) (CT) Page 2 of 2 [id number] [facility] (Imaging) [address] [place], [address], 04/06/2022 01:35:44 03/31/19 23 03/31/2022 PET-C T, whole body scan No observ ation record ed. [id number] [facility] [address] [place], [address], 04/06/2022 01:35:44 Result Notes None recorded. Problems Name Problem SNOMED Code Status Onset Date Resolution Date Notes Provider Name and Address Organization Details Recorded Time Hypoglycemia 146423193 Active 2021 Not Available [facility] 3 01:34:43 Abnormal cortisol 362706246 Active 2021 Not Available [facility] 3 01:34:43 Hypothyroidis m 82712227 Active 2021 Not Available [facility] 3 01:34:43 Hyperparathyr oidism 57540834 Active 2021 Not Available [facility] 3 01:34:43 Reactive hypoglycemia 773671 Active 2022 MICHELLE Marino null, [facility] 3 10:41:38 Postmenopausa l osteoporosis 000330283 Active 2022 Kayla Alvarado RMA null, [facility] 3 12:05:10 Problem Notes None recorded. Procedures Surgical History Date Name Laterality Status Provider Name and Address Organization Details Recorded Time repair of urinary bladder completed Not Available [facility] 04/06/2022 01:34:04 Neck completed Not Available [facility] 04/06/2022 01:34:04 dinitrochlorobenzene contact sensitivity test completed Not Available [facility] 04/06/2022 01:34:04 Kidney Stones completed Not Available [facility] 04/06/2022 01:34:04 Hysterectomy completed Not Available [facility] 04/06/2022 01:34:04 Gastric bypass for obesity completed Not Available [facility] 04/06/2022 01:34:04 Carpal tunnel surgery completed Not Available [facility] 04/06/2022 01:34:04 Imaging Results Imaging Date Name Status LastModified by Organiz ation Details LastModified Time 03/31/2022 PET-CT, whole body scan completed [id number] [facility]- [address], [address], 04/06/2022 01:35:44 09/08/2021 US, thyroid completed [id number] 30 026 [facility] Add On Lab Orders [address] [place], [address], 04/06/2022 01:35:44 09/08/2021 bone density completed [id number] 30 026 [facility] Add On Lab Orders [address] [place], [address], 04/06/2022 01:35:44 09/08/2021 DEXA, axial skeleton completed [id number] 026 [facility] (Imaging) [address] [place], [address], 04/06/2022 01:35:44 09/08/2021 US, head + neck, soft tissue completed [id number] 026 [facility] (Imaging) [address] [place], [address], 04/06/2022 01:35:44 Procedure Notes None recorded. Medical Equipment None Reported. Allergies Allergen ID Allergen Name Allergen Category Reaction Reaction Severity Criticality Documentation Date Start Date Code Code System Note Provider Name and Address Organization Details Recorded Time 56558 Levaquin medicatio n Not available Not available Not available 04/06/2022 33830 2 RxNorm Not Available [facility] 3 01:35:37 71958 Demerol medicatio n Not available Not available Not available 04/06/2022 38601 1 RxNorm Not Available [facility] 3 01:35:37 38600 codeine medicatio n Not available Not available Not available 04/06/2022 2670 RxNorm Not Available [facility] 3 01:35:37 Medications Name Sig Start Date [...] % 98 % 66 /min 97.7 [degF] 29025.4 6 g 120 mm[Hg] 75 mm[Hg] Not Available [facility] 3 01:34:09 Date Recorded Body mass index (BMI) Body height Oxygen saturation Oxygen saturation in Arterial blood by Pulse oximetry Heart rate Body temperature Body weight Systolic blood pressure Diastolic blood pressure Provider Name and Address Organization Details Last Updated DateTime 2 32.8 kg/m2 160.02 cm 99 % 99 % 65 /min 97.8 [degF] 06186.5 9 g 105 mm[Hg] 70 mm[Hg] Not Available [facility] 3 01:34:09 Date Recorded Body mass index (BMI) Body height Oxygen saturation Oxygen saturation in Arterial blood by Pulse oximetry Heart rate Respiratory rate Body temperature Body weight Systolic blood pressure Diastolic blood pressure Provider Name and Address Organization Details Last Updated DateTime 3 33.9 kg/m2 160.02 cm 98 % 98 % 69 /min 12 /min 97.5 [degF] 02064.8 6 g 132 mm[Hg] 78 mm[Hg] Not Available [facility] 3 01:34:09 Date Recorded Body height Body mass index (BMI) Body weight Body temperature Heart rate Systolic blood pressure Diastolic blood pressure Provider Name and Address Organization Details Last Updated DateTime 3 160.02 cm 34 kg/m2 38785.7 4 g 97.6 [degF] 68 /min 149 mm[Hg] 67 mm[Hg] Sujatha Hughes CMA [place] - [facility] [employer] [facility] 3 12:00:46 Social History Question Answer Notes LastModified by [employer] Details LastModified Time Tobacco Smoking Status Never Smoker Not Available [facility] 04/06/2022 01:33:24 What Is Your Level Of Alcohol Consumption? None [id number] Information not available 04/06/2022 What Is Your Level Of Caffeine Consumption? None [id number] 026 Information not available 04/06/2022 What Type Of Diet Are You Following? REGULAR [id number] 026 Information not available 04/06/2022 What Is Your Relationship Status? [id number] 026 Information not available 04/06/2022 Sex: Female Functional Status Question Answer Note LastModified by [employer] Details LastModified Time What is your exercise level? Occasional [id number] 26 Information not available 04/06/2022 Mental Status None recorded. Family History Relationship Description Onset Age of this Age Resolved Age Notes LastModified by Organization Details LastModified Time Sister Diabetes mellitus [id number] Not available 04/06/2022 01:34:05 Medical History Condition Response ARTHRITIS HEADACHES/MIGRAINES Y DIZZINESS Y KIDNEY DISEASE LIVER DISEASE LUNG DISEASE/DISORDER Y HYPERTENSION Y HIGH CHOLESTEROL / HYPERLIPIDEMIA Y EYE PROBLEMS Y EXCESSIVE PERSPIRATION Y GERD/NAUSEA Y SURGERY ALZHEIMER'S DISEASE Y HAVE YOU BEEN HOSPITALIZED OR SEEN IN [facility] ER IN THE PAST YEAR ? Y STROKE/TIA Y Gynecological HistoryNo gynecological history recorded. Obstetrics History GPAL:G 0 P 0 0 0 0 Past Encounters Encounter ID Performer Location Encounter Start Date Encounter Closed Date Diagnosis/Indication Diagnosis SNOMED-CT Code Diagnosis ICD10 Code Diagnosis Note [id number] [facility] [address] [place] [address] 09/02/2021 00:00:00 09/02/2021 12:15:50 [id number] [facility] [address] [place] [address] 10/14/2021 00:00:00 10/14/2021 21:36:04 [id number] [facility] [address] [place] [address] 02/27/2022 00:00:00 02/27/2022 12:47:24 [id number] Keesha Aragon MD [facility] [address] [place] [address] 07/31/2022 11:14:26 07/31/2022 12:37:01 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 We referred to [facility] for further insight. she is taking acarbose [...] mg/dLCr normalLFT normal Keesha Aragon MD [address] [facility], [facility] [address], [place], [address], [place] [facility] 07/31/2022 15:32:40 OBGyn Episode No OBEpisode recorded.
--- OUTSIDE RECORDS SUMMARY | 2024-03-03 13:56 | XMS_ITS ---
Author Organization [facility] Address [address] [facility] [place] [address] Care Team Providers Care Road Marker Name Role Phone Kathi Zimmerman Primary Care Provider Encounters Encounter Location Date Provider Diagnosis [facility] - Kathi Zimmerman [address] [place] [address] 03/03/2024 Kathi Zimmerman Plan Of Treatment No Information Progress Notes * Javon GRESHAMOB:[birth year] (64 yo F)Acc No.[id number]:03/03/2024 Patient:?MPTieraTiffanie :1960???Age:64 Y???Sex:Female Address:[place] [address] * * Date:?
--- OUTSIDE RECORDS SUMMARY | 2024-03-03 13:56 | XMS_ITS | Patient Health Record ---
Author Organization [facility] justice Address [address] [address] [address] [place] [address] Care Team Providers Care Tooth Clerk Name Role Phone Shelly HALE, Jona Primary Care Provider Dave dennis Mary Hewitt Unavailable [phone] Allergies Allergen (clinical drug ingredient) Drug/Non Drug [...] Active Results Component Value Reference Range Notes CBC (INCLUDES DIFF/PLT) (639 9) Reviewed date:05/31/2023 01:21:17 PM Interpretation: Performing Lab:[facility]-[id number] Jacky HerringGiukjxNI[address] Law Nathan MD Notes/Report: FASTING: YES FASTING:YES WHITE BLOOD CELL COUNT 5.3 3.8-10.8 Thousand/ uL RED BLOOD CELL COUNT 3.80 3.80-5.10 Million/uL HEMOGLOBIN 12.1 11.7-15.5 g/dL HEMATOCRIT 36.5 35.0-45.0 % MCV 96.1 80.0-100.0 fL MCH 31.8 27.0-33.0 pg MCHC 33.2 32.0-36.0 g/dL RDW 11.9 11.0-15.0 % PLATELET COUNT 166 140-400 Thousand/uL MPV 10.5 7.5-12.5 fL ABSOLUTE NEUTROPHILS 3291 7885-3386 cells/uL ABSOLUTE LYMPHOCYTES 2857 181-4393 cells/uL ABSOLUTE MONOCYTES 647 200-950 cells/uL ABSOLUTE EOSINOPHILS 80 15-500 cells/uL ABSOLUTE BASOPHILS 32 0-200 cells/uL NEUTROPHILS 62.1 LYMPHOCYTES 23.6 MONOCYTES 12.2 EOSINOPHILS 1.5 BASOPHILS 0.6 COMPREHENSIVE METABOLIC PANE L (31418) Reviewed date:05/31/2023 01:21:17 PM Interpretation: Performing Lab:[facility]-Nyrcsl97895 Chris Milligan, NemgyaOC[address] Law Nathan MD Notes/Report: FASTING:YES FASTING: YES [...] 38 10-35 U/L ALT 42 6-29 U/L CREATINE KINASE, TOTAL (374) Reviewed date:05/31/2023 01:21:17 PM Interpretation: Performing Lab:[facility] Anushka-[id number] Chris Milligan, NfhzamZW[address] Law Nathan MD Notes/Report: FASTING:YES FASTING: YES CREATINE KINASE, TOTAL 190 29-143 U/L SED RATE BY MODIFIED WESTERG CURLY (809) Reviewed date:05/31/2023 01:21:17 PM Interpretation: Performing Lab:[facility] ANGULO, AegtzuEN[address] Law Nathan MD Notes/Report: FASTING:YES FASTING: YES SED RATE BY MODIFIED WESTERGREN 6 < OR = 30 mm/h C-REACTIVE PROTEIN (4420) Reviewed date:05/31/2023 01:21:17 PM Interpretation: Performing Lab:[facility] ANGULO, NfotshHT[address] Law Nathan MD Notes/Report: FASTING:YES FASTING: YES C-REACTIVE PROTEIN <3.0 <8.0 mg/L RHEUMATOID FACTOR (4418) Reviewed date:05/31/2023 01:21:17 PM Interpretation: Performing Lab:[facility] ANGULO [place]KS[address] Law Nathan MD Notes/Report: FASTING:YES FASTING: YES RHEUMATOID FACTOR <10 <14 IU/mL CYCLIC CITRULLINATED PEPTIDE (CCP) AB (IGG) (18724) Reviewed date:05/31/2023 01:21:17 PM Interpretation: Performing Lab:[facility] ANGULO [place] Law Nathan MD Notes/Report: FASTING:YES FASTING: YES CYCLIC CITRULLINATED PEPTIDE (CCP) AB (IGG) <16 Reference Range Negative: <20 Weak Positive: 20-39 Moderate Positive: 40-59 Strong Positive: >59 COMPLEMENT COMPONENT C3C (35 1) Reviewed date:05/31/2023 01:21:17 PM Interpretation: Performing Lab:[facility] ANGULO [place] Law Nathan MD Notes/Report: FASTING:YES FASTING: YES COMPLEMENT COMPONENT C3C 125 83-193 mg/dL COMPLEMENT COMPONENT C4C (35 3) Reviewed date:05/31/2023 01:21:17 PM Interpretation: Performing Lab:[facility] ANGULO [place] Law Nathan MD Notes/Report: FASTING:YES FASTING: YES COMPLEMENT COMPONENT C4C 16 15-57 mg/dL HIMANSHU SCREEN, IFA, W/REFL TITE R AND PATTERN (249) Reviewed date:05/31/2023 01:21:17 PM Interpretation: Performing Lab:[facility] P[facility]-Jdugpz55568 Chris Milligan, TgwewkLD[address] Law Nathan MD Notes/Report: FASTING:YES FASTING: YES [...] Negative International Consensus on HIMANSHU Patterns (https://doi.org/10.1515/cc zx-9071-2896) For additional information, please refer to http://education.[employer]/faq/HVH781 (This link is being provided for informational/ educational purposes only.) SJOGREN'S ANTIBODIES (SS-A,S S-B) (7832) Reviewed date:05/31/2023 01:21:17 PM Interpretation: Performing Lab:[facility]-Dqjmps42574 Chris Milligan, VxjuoaCQ[address] Law Nathan MD Notes/Report: FASTING:YES FASTING: YES SJOGREN'S ANTIBODY (SS-A) <1.0 NEG <1.0 NEG AI SJOGREN'S ANTIBODY (SS-B) <1.0 NEG <1.0 NEG AI Reason For Referral No Information Medications Medication SIG (Take, Route, Frequency, Duration) Notes Start Date End Date Status Copper 3 mg daily - *Pick strength-form from [employer] for eRX* Active Zinc 30 mg daily oral Active Omeprazole 20 MG take 1 capsule (20 mg) by oral route once daily before a meal Oral 1 Active Biotin - daily oral *Pick strength-form from [employer] for eRX* Active MULTIPLE VITAMINS W/IRON take 1 tablet b y oral route once Oral 1 *Reorder from [employer] for eRx and Interaction Alerts* Active Levothyroxine Sodium 88 MCG take 1 capsule (88 mcg) by oral route once daily Oral 1 Active Eszopiclone 3 MG take 1 tablet (3 mg) by oral route once daily at bedtime Oral 1 Active Xanax - - oral *Pick strength-form from [employer] for eRX* Active Pravastatin Sodium 40 MG [...] Active E-Gems - daily oral *Reorder from [employer] for eRx and Interaction Alerts* Active Cymbalta 30 MG take 1 capsule (30 mg) by oral route once daily Oral 1 Active Problems Problem Type SNOMED Code ICD Code Onset Dates Problem Status W/U Status Risk Notes Problem 626309694 Rheumatoid arthritis without rheumatoid factor, multiple sites (M06.09) Active confirmed Problem 145151683 Fibromyalgia (M79.7) Active confirmed Vital Signs Heart Rate 79 /min 05/29/2023 Temperature 97.3 degrees Fahrenheit 05/29/2023 Blood pressure diastolic 80 mm Hg 05/29/2023 Oximetry 99 % 05/29/2023 Height 64 in 05/29/2023 Blood pressure systolic 150 mm Hg 05/29/2023 Weight 193.7 lbs 05/29/2023 BMI 33.24 kg/m2 05/29/2023 Encounters Encounter Location Date Provider Diagnosis [facility] [address] [facility] [address] [place] [address] 05/29/2023 Mary Hewitt Rheumatoid arthritis without rheumatoid [...] Antibodies 05/29/2023 HIMANSHU w/Reflex 05/29/2023 Chem-Comprehensive 05/29/2023 Insurance Providers Payer Name Payer Address Payer Phone Subscriber Number Group Number Insured Name Patient Relationship to Insured Coverage Start Date Coverage End Date Medicare [address] [address] [place] [address] [id number] Rubén Ruizte Self - patient is the insured 8 [place] [address] [place] [address] [id number] Tiffanie Ruiz Self - patient is the insured [employer] l [address] [place] [address] [id number] Rubén Ruizte Self - patient is the insured Medical (General) History Medical History History ICD Code Depression; Fibromyalgia; Hyperlipidemia; Hypertension; Hypothyroidism; Low Back Pain; Sleep apnea;
--- OUTSIDE RECORDS SUMMARY | 2024-03-03 13:56 | XMS_ITS ---
Author Organization [facility] justice Address [address] [facility] [address] [place] [address] Care Team Providers Care Bike Mechanic Name Role Phone Shelly HALE, Jona Primary Care Provider Unavaila ble KashJahairag Unavailable [phone] zzzzMigration, zzzzProvider Unavailable Unav ailable Allergies Allergen [...] Active buspirone - - oral *Reorder from [place] for eRx and Interaction Alerts* Active Levothyroxine Sodium 88 MCG take 1 capsule (88 mcg) by oral route once daily Oral 1 Active Pravastatin Sodium 40 MG take 1 tablet (40 mg) by oral route once daily Oral 1 Active Zinc 30 mg daily oral Active E-Gems - daily oral *Reorder from [place] for eRx and Interaction Alerts* Active Biotin - daily oral *Pick strength-form from [employer] for eRX* Active HYDROcodone-Acetaminophen 10-325 MG Oral Active Omeprazole 20 MG take 1 capsule (20 mg) by oral route once daily before a meal Oral 1 Active Copper 3 mg daily - *[facility]* Active MULTIPLE VITAMINS W/IRON take 1 tablet b y oral route once Oral 1 *[facility] for eRx and Interaction Alerts* Active Xanax - - oral *[facility] from [facility] for eRX* Active Potassium Chloride ER 10 MEQ take 1 tablet (10 meq) by oral route once daily with food Oral 1 Active Cymbalta 30 MG take 1 capsule (30 mg) by oral route once daily Oral 1 Active Encounters Encounter Location Date Provider Diagnosis [facility] [address] [facility] [address] [place] [address] 11/26/2022 zzzzProvider zzzzMigration Plan Of Treatment No Information Progress Notes * MPRubénte ADOB: (64 yo F)Acc No.[id number]:11/26/2022 Patient:?Tiffanie GRESHAM A :1960???Age:62 Y???Sex:Female Address:[facility] [address], [facility] [address] Subjective: * Chief Complaints: * ???[facility] * Medical History:? * Surgical History:? * Hospitalization/Major Diagno stic Procedure:? * Social History:?Migrated Social History:?Migrated Social History: Exercise :: Walks , Occupation :: Disabled :: note : - [employer] 10/13/2017 , Substance Use :: Alcohol-Does not give any significant history , Substance Use :: Tobacco :: Never. * Medications:?TakingXanax - - oral , Notes to Pharmacist: *[facility] for [facility]*Levothyroxine Sodium 88 MCG Capsule take 1 capsule (88 mcg) by oral route once daily Oral 1 Biotin - daily oral , Notes to Pharmacist: *[facility] from [facility] for [facility]*Omeprazole 20 MG Capsule Delayed Release take 1 capsule (20 mg) by oral route once daily before a meal Oral 1 Zinc 30 mg tablet daily oral Copper 3 mg daily - , Notes to Pharmacist: *Pick strength-form from [facility] for eRX*Cymbalta 30 MG Capsule Delayed Release Particles take 1 capsule (30 mg) by oral route once daily Oral 1 E-Gems - daily oral , Notes to Pharmacist: *Reorder from [facility] for eRx and Interaction Alerts*Potassium Chloride ER [...] oral , Notes to Pharmacist: *Reorder from [facility] for eRx and Interaction Alerts*Eszopiclone 3 MG Tablet take 1 tablet (3 mg) by oral route once daily at bedtime Oral 1 MULTIPLE VITAMINS W/IRON Tablet take 1 tablet by oral route once Oral 1 , Notes to Pharmacist: *Reorder from [facility] for eRx and Interaction Alerts*Taking Xanax - - oral , Notes to Pharmacist: *Pick strength-form from [facility] for eRX*Taking Levothyroxine Sodium 88 MCG Capsule take 1 capsule (88 mcg) by oral route once daily Oral 1 Taking Biotin - daily oral , Notes to Pharmacist: *Pick strength-form from [facility] for eRX*Taking Omeprazole 20 MG Capsule Delayed Release take 1 capsule (20 mg) by oral route once daily before a meal Oral 1 Taking Zinc 30 mg tablet daily oral Taking Copper 3 mg daily - , Notes to Pharmacist: *Pick strength-form from [facility] for eRX*Taking Cymbalta 30 MG Capsule Delayed Release Particles take 1 capsule (30 mg) by oral route once daily Oral 1 Taking E-Gems - daily oral , Notes to Pharmacist: *Reorder from [facility] for eRx and Interaction Alerts*Taking Potassium Chloride [...] oral , Notes to Pharmacist: *Reorder from [facility] for eRx and Interaction Alerts*Taking Eszopiclone 3 MG Tablet take 1 tablet (3 mg) by oral route once daily at bedtime Oral 1 Taking MULTIPLE VITAMINS W/IRON Tablet take 1 tablet by oral route once Oral 1 , Notes to Pharmacist: *Reorder from [facility] for eRx and Interaction Alerts* * Allergies:?Gabapentin: Aller gy - Onset Date 07/08/2017Levaquin: Allergy - Onset Date 07/08/2017Meperidine HCl: Allergy - Onset Date 07/08/2017Prochlorperazine: Allergy - Onset Date 07/08/2017Adhesive: Allergy - Onset Date 07/08/2017Codeine: Allergy - Onset Date 07/08/2017 Objective: * Vitals:? * Physical Examination:? Assessment: Plan: * Treatment: * Procedure Codes:? * * Date:?
--- OUTSIDE RECORDS SUMMARY | 2024-03-03 13:56 | XMS_ITS | Encounter Summary ---
Author Organization [facility] Address [address] [place] [address] Care Team Providers Care Inspector Subassembly Name Role Phone Jona Bravo MD Primary Care Provider Reason for Visit * Reason Onset Date Comments Red flag- Severe Pain 08/14/2022 Encounter Details Date Type Department Care Team (Late st Contact Info) Description 08/14/2022 Telephone [facility] Primary Care [address] [place] [address] Jona Bravo MD [address] [place] [address] [address] [place] [address] Red flag- Severe Pain Social History Tobacco Use Types Packs/Day Years [...] attend chur ch or samaritan services? 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 Caller: Tiffanie Ruiz Reason for Triage: Pain, new onset and severe Patient states she woke up Friday 08/11 morning and shecouldn't bend her right knee. Patient states she tore her meniscus in her left knee and this pains feels similar to that. She states that she contacted an Orthopedic Doctor but they can't get her in until September and suggested an injection. Call back number: [phone] (home) Home Phone Work Phone documented in this encounter Plan of Treatment Upcoming Encounters Date Type Department Care Team (Late st Contact Info) Description 04/23/2024 1:20 PM CDT Office Visit [address] [place] [address] Jona Bravo MD [address] [place] [address] [address] [place] [address] 08/25/2024 10:40 AM CDT Office Visit [address] [place] [address] Jona Bravo MD [address] [place] [address] documented as of this encounter Visit Diagnoses Not on filedocumented in this encounter Care Teams Inspector Subassembly Relationship Specialty Start Date End Date Jona Bravo MD PCP - General Internal Medicine 11/25/15 documented as of this encounter
--- OUTSIDE RECORDS SUMMARY | 2024-03-03 13:56 | XMS_ITS | Encounter Summary ---
Author Organization [facility] Address [address] [place] [address] Care Team Providers Care Grader Operator Name Role Phone Jona Barvo MD Primary Care Provider [phone] Reason for Visit * Reason Onset Date Comments HFU 10/11/2021 Encounter Details Date Type Department Care Team (Late st Contact Info) Description 10/11/2021 Telephone [facility] [address] [place] [address] Jona Bravo MD [address] [place] [address] [address] [place] [address] HFU Social History Tobacco Use Types Packs/Day Years Used Date Smoking Tobacco: Never Smokeless Tobacco: Never Alcohol Use Standard Drinks/Week Comments Yes 0 (1 standard drink = 0.6 oz pur e alcohol) 1/year Social Connections Answer Date Recorded In a typical week, how many times do you talk on the phone with family, friends, or neighbors? More than three times a week 01/11/2020 How often do you get togethe r with friends or relatives? Never 01/11/2020 How often do you attend chur ch or church services? 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 No / Unsure 10/14/2021 1:55 PM CDT documented as of this encounter Miscellaneous Notes * Telephone Encounter - Micheline Ryan - 10/11/2021 1:30 PM CDT CB pt [phone] (home) Patient is being discharged from the hospital today, 10/11, from [facility] according to bottle caser Krzysztof. Patient was scheduled for a hospital follow up with PCP for 10/14/21; caller stated that [facility] wants patients to be seen no sooner than 7 days after discharge; PSA informed patient needs to be seen within 5 days per PCP; caller stated she may advise patient to reschedule. Please call the patient to [facility] and request medical records as it was not mentioned during the call. documented in this encounter Plan of Treatment Upcoming Encounters Date Type Department Care Team (Late st Contact Info) Description 04/23/2024 1:20 PM CDT Office Visit [address] [place] [id number] Jona Bravo MD [address] [place] [address] [place] [address] 08/25/2024 10:40 AM CDT Office Visit [address] [place] [address] Jona Bravo MD [address] [place] [address] [address] [place] [address] documented as of this encounter Visit Diagnoses Not on filedocumented in this encounter Additional Health Concerns Assessment Noted Time PHQ-9 Depression Total Score: 2 01/11/20 20 4:07 PM HEEL EMERY BUFFER documented as of this encounter Care Teams Grader Operator Relationship Specialty Start Date End Date Jona Bravo MD PCP - General Internal Medicine 11/25/15 documented as of this encounter
--- OUTSIDE RECORDS SUMMARY | 2024-03-03 13:57 | XMS_ITS | Patient Health Summary ---
Author Organization [facility] Address [address] [place] [address] Care Team Providers Care Remote Recruiter Name Role Phone Jona Bravo MD Primary Care Provider Note from [facility],non-owned Affiliates and Associated Physician Practices is amultiple site organization consisting of ambulatory clinics and hospital sitesin [place], [place], [place] and [place]. This disclosure is being madepursuant to the Care Everywhere program and may not contain all information available regarding this patient. Last updated 17.[facility] Allergies * Adhesive Sensitivity(Other) * Codeine(Urticaria) * Codeine(Urticaria) -High Criticality * Meperidine(Urticaria) * Doxycycline(Other) * Duloxetine(Other) -Low Criticality * Gabapentin(Other) * Levofloxacin(Other) * Pregabalin(Swelling) * Prochlorperazine(Other) -Low Criticality * Suvorexant(GI Discomfort) Medications * Be aware that medications may not be up to date on this document. Alwaysverify current medications with the patient. * Tizanidine HCl 4 MG CAPS Take 4 mcg by mouth at bedtime * levothyroxine (SYNTHROID) 88 MCG tablet Take 1 (one) tablet by mouth daily before breakfast * ALBUTEROL SULFATE IN Inhale by mouth once daily as needed * sertraline (ZOLOFT) 100 MG tablet Take 2 (two) tablets by mouth once daily * pravastatin (PRAVACHOL) 80 MG tablet(Started 01/07/2018) * HYDROcodone-acetaminophen (NORCO) 10-325 MG tablet Take 1 (one) tablet by mouth every 6 hours as needed for Pain * buPROPion XL 24hr (WELLBUTRIN-XL) 300 MG tablet Take 150 mg by mouth * vitamin E (TOCOPHERYL) 100 UNIT capsule Take 100 Int'l Units/L by mouth once daily * Biotin 26956 MCG TBDP Take 1 tablet by mouth once daily * aspirin EC (ECOTRIN) 81 MG tablet Take 1 (one) tablet by mouth every 7 days * busPIRone (BUSPAR) 10 MG tablet(Started 06/17/2020) Take 2 (two) tablets by mouth 2 times daily * eszopiclone (LUNESTA) 3 MG tablet Take 1 (one) tablet by mouth nightly as needed for Insomnia * omeprazole (PRILOSEC) 20 MG capsule(Started 09/08/2020) Take 1 (one) capsule by mouth daily before breakfast 2 refills by 09/08/2021 * Copper Gluconate (COPPER CAPS PO) Take 3 mg by mouth once daily * Zinc 30 MG Take 30 mg by mouth once daily * Vitamin K 100 MCG TABS Take 1 (one) tablet by mouth once * hydroCHLOROthiazide (HYDRODIURIL) 12.5 MG(Started 04/21/2021) Take 1 (one) tablet by mouth once daily * nystatin (NYSTOP) 466847 UNIT/GM powder(Started 08/12/2021) APPLY POWDER TOPICALLY TO AFFECTED AREA TWICE DAILY 1 refill by 08/12/2022 * VITAMIN D PO Take 5,000 Int'l Units/L by mouth once daily * acarbose (Precose) 25 MG tablet Take 1 (one) tablet by mouth 3 times daily with meals * amLODIPine (Norvasc) 5 MG tablet Take 1 (one) tablet by mouth once daily Active Problems Problem Noted Date Diagnosed Date Hyperparathyroidism 02/02/2022 06/15/2022 Kidney stones 04/03/2019 S/P gastric bypass 06/19/2018 Shingles 03/21/2018 Chronic constipation 03/21/2018 Type 2 diabetes mellitus 06/06/2017 Gastroparesis 06/06/2017 GERD (gastroesophageal reflux disease) 8 Hypertension 06/06/2017 MIDDLETON (nonalcoholic steatohepatitis) 06/06/2017 Obesity 06/06/2017 MEREDITH (obstructive sleep apnea) 06/06/2017 Spinal stenosis 06/06/2017 Cerebrovascular accident 08/03/2016 Hemochromatosis carrier 09/30/2015 Pelvic pain in female 08/06/2014 Depression 05/30/2010 Fibromyalgia 05/30/2010 Hypothyroidism 05/30/2010 Velasquez's esophagus 11/25/2009 Colon polyps 11/25/2009 Asthma Resolved Problems Problem Noted Date Diagnosed Date Resolved Date Dehydration 06/28/2018 06/30/2018 Preoperative examination 12/24/2017 Complication of gastric band procedure 12/24/2017 06/30/2018 Immunizations * Covid Moderna primary monovalent 12+ yr 0.5mL(Given 10/13/2021) * HEP A VACCINE, ADULT(Given 02/05/2005) * INFLUENZA VACCINE(Given 12/15/2015, 09/16/2014, 10/06/2013) * Pneumococcal Pcv13 Conj(Given 09/16/2014) Social History Tobacco Use Types Packs/Day Years [...] Mass Index 34.37 06/21/2023 12:44 PM CDT Procedures * FL UGI W SM BOWEL FOLLOW THRU(Performed 07/18/2023) Performed for Generalized abdominal pain * CT ABDOMEN PELVIS W CONTRAST(Performed 06/29/2023) Performed for Abdominal pain, LUQ (left upper quadrant), Abdominal wall bulge * OK EGD FLEX TRANSORAL W SUBMUCOSAL INJ(Performed 10/16/2022) * GLUCOSE - POINT OF CARE(Performed 10/16/2022) * EGD(Performed 10/16/2022) * OK ED EGD FLEX TRANSORAL DX(Performed 08/21/2022) * GLUCOSE - POINT OF CARE(Performed 08/21/2022) * EGD(Performed 08/21/2022) Performed for Hypoglycemia, Bariatric surgery status * ZINC BLOOD(Performed 06/05/2022) * COPPER BLOOD(Performed 06/05/2022) * VITAMIN A(Performed 06/05/2022) * VITAMIN B1(Performed 06/05/2022) * VITAMIN K1(Performed 06/05/2022) * VITAMIN D 25-HYDROXY(Performed 06/05/2022) * VITAMIN E(Performed 06/05/2022) * PTH INTACT(Performed 06/05/2022) * VITAMIN B12(Performed 06/05/2022) * FOLATE RBC(Performed 06/05/2022) * FERRITIN(Performed 06/05/2022) * PREALBUMIN(Performed 06/05/2022) * CBC W/O DIFFERENTIAL(Performed 06/05/2022) * COMPREHENSIVE METABOLIC PANEL(Performed 06/05/2022) * MAGNESIUM BLOOD(Performed 06/05/2022) * IRON BLOOD(Performed 06/05/2022) * IRON + TIBC PANEL(Performed 08/24/2021) Performed for Class 1 obesity due to excess calories with serious comorbidity and body mass index (BMI) of 30.0 to 30.9 in adult, Intestinal malabsorption, unspecified type (HCC), Vitamin K deficiency, Vitamin deficiency, Vitamin D deficiency, Mineral deficiency, Bariatric surgery status * VITAMIN A(Performed 08/24/2021) Performed for Class 1 obesity due to excess calories with serious comorbidity and body mass index (BMI) of 30.0 to 30.9 in adult, Intestinal malabsorption, unspecified type (HCC), Vitamin K deficiency, Vitamin deficiency, Vitamin D deficiency, Mineral deficiency, Bariatric surgery status * VITAMIN E(Performed 08/24/2021) Performed for Class 1 obesity due to excess calories with serious comorbidity and body mass index (BMI) of 30.0 to 30.9 in adult, Intestinal malabsorption, unspecified type (HCC), Vitamin K deficiency, Vitamin deficiency, Vitamin D deficiency, Mineral deficiency, Bariatric surgery status * VITAMIN K1(Performed 08/24/2021) Performed for Class 1 obesity due to excess calories with serious comorbidity and body mass index (BMI) of 30.0 to 30.9 in adult, Intestinal malabsorption, unspecified type (HCC), Vitamin K deficiency, Vitamin deficiency, Vitamin D deficiency, Mineral deficiency, Bariatric surgery status * PREALBUMIN(Performed 08/24/2021) Performed for Class 1 obesity due to excess calories with serious comorbidity and body mass index (BMI) of 30.0 to 30.9 in adult, Intestinal malabsorption, unspecified type (HCC), Vitamin K deficiency, Vitamin deficiency, Vitamin D deficiency, Mineral deficiency, Bariatric surgery status * VITAMIN B1(Performed 08/24/2021) Performed for Class 1 obesity due to excess calories with serious comorbidity and body mass index (BMI) of 30.0 to 30.9 in adult, Intestinal malabsorption, unspecified type (HCC), Vitamin K deficiency, Vitamin deficiency, Vitamin D deficiency, Mineral deficiency, Bariatric surgery status * VITAMIN B12(Performed 08/24/2021) Performed for Class 1 obesity due to excess calories with serious comorbidity and body mass index (BMI) of 30.0 to 30.9 in adult, Intestinal malabsorption, unspecified type (HCC), Vitamin K deficiency, Vitamin deficiency, Vitamin D deficiency, Mineral deficiency, Bariatric surgery status * VITAMIN D 25-HYDROXY(Performed 08/24/2021) Performed for Class 1 obesity due to excess calories with serious comorbidity and body mass index (BMI) of 30.0 to 30.9 in adult, Intestinal malabsorption, unspecified type (HCC), Vitamin K deficiency, Vitamin deficiency, Vitamin D deficiency, Mineral deficiency, Bariatric surgery status * ZINC BLOOD(Performed 08/24/2021) Performed for Class 1 obesity due to excess calories with serious comorbidity and body mass index (BMI) of 30.0 to 30.9 in adult, Intestinal malabsorption, unspecified type (HCC), Vitamin K deficiency, Vitamin deficiency, Vitamin D deficiency, Mineral deficiency, Bariatric surgery status * PTH INTACT(Performed 08/24/2021) Performed for Class 1 obesity due to excess calories with serious comorbidity and body mass index (BMI) of 30.0 to 30.9 in adult, Intestinal malabsorption, unspecified type (HCC), Vitamin K deficiency, Vitamin deficiency, Vitamin D deficiency, Mineral deficiency, Bariatric surgery status * MAGNESIUM BLOOD(Performed 08/24/2021) Performed for Class 1 obesity due to excess calories with serious comorbidity and body mass index (BMI) of 30.0 to 30.9 in adult, Intestinal malabsorption, unspecified type (HCC), Vitamin K deficiency, Vitamin deficiency, Vitamin D deficiency, Mineral deficiency, Bariatric surgery status * FOLATE RBC(Performed 08/24/2021) Performed for Class 1 obesity due to excess calories with serious comorbidity and body mass index (BMI) of 30.0 to 30.9 in adult, Intestinal malabsorption, unspecified type (HCC), Vitamin K deficiency, Vitamin deficiency, Vitamin D deficiency, Mineral deficiency, Bariatric surgery status * FERRITIN(Performed 08/24/2021) Performed for Class 1 obesity due to excess calories with serious comorbidity and body mass index (BMI) of 30.0 to 30.9 in adult, Intestinal malabsorption, unspecified type (HCC), Vitamin K deficiency, Vitamin deficiency, Vitamin D deficiency, Mineral deficiency, Bariatric surgery status * COPPER BLOOD(Performed 08/24/2021) Performed for Class 1 obesity due to excess calories with serious comorbidity and body mass index (BMI) of 30.0 to 30.9 in adult, Intestinal malabsorption, unspecified type (HCC), Vitamin K deficiency, Vitamin deficiency, Vitamin D deficiency, Mineral deficiency, Bariatric surgery status * COMPREHENSIVE METABOLIC PANEL(Performed 08/24/2021) Performed for Class 1 obesity due to excess calories with serious comorbidity and body mass index (BMI) of 30.0 to 30.9 in adult, Intestinal malabsorption, unspecified type (HCC), Vitamin K deficiency, Vitamin deficiency, Vitamin D deficiency, Mineral deficiency, Bariatric surgery status * CBC W/O DIFFERENTIAL(Performed 08/24/2021) Performed for Class 1 obesity due to excess calories with serious comorbidity and body mass index (BMI) of 30.0 to 30.9 in adult, Intestinal malabsorption, unspecified type (HCC), Vitamin K deficiency, Vitamin deficiency, Vitamin D deficiency, Mineral deficiency, Bariatric surgery status * PATHOLOGY TISSUE(Performed 08/03/2020) Performed for Screen for colon cancer, H/O gastric bypass * ENDOSCOPY, COLON, SCREENING(Performed 08/03/2020) * COLONOSCOPY SCREEN(Performed 08/03/2020) Performed for Screen for colon cancer, H/O gastric bypass * OK ED EGD FLEX TRANSORAL DX(Performed 08/03/2020) Performed for Screen for colon cancer, H/O gastric bypass * EGD(Performed 08/03/2020) * VITAMIN A(Performed 06/25/2020) Performed for Class 1 obesity due to excess calories with serious comorbidity and body mass index (BMI) of 30.0 to 30.9 in adult, Intestinal malabsorption, unspecified type (HCC), Vitamin K deficiency, Bariatric surgery status, Vitamin deficiency, Vitamin D deficiency, Mineral deficiency * VITAMIN B1(Performed 06/25/2020) Performed for Class 1 obesity due to excess calories with serious comorbidity and body mass index (BMI) of 30.0 to 30.9 in adult, Intestinal malabsorption, unspecified type (HCC), Vitamin K deficiency, Bariatric surgery status, Vitamin deficiency, Vitamin D deficiency, Mineral deficiency * VITAMIN D 25-HYDROXY(Performed 06/25/2020) Performed for Class 1 obesity due to excess calories with serious comorbidity and body mass index (BMI) of 30.0 to 30.9 in adult, Intestinal malabsorption, unspecified type (HCC), Vitamin K deficiency, Bariatric surgery status, Vitamin deficiency, Vitamin D deficiency, Mineral deficiency * VITAMIN B12(Performed 06/25/2020) Performed for Class 1 obesity due to excess calories with serious comorbidity and body mass index (BMI) of 30.0 to 30.9 in adult, Intestinal malabsorption, unspecified type (HCC), Vitamin K deficiency, Bariatric surgery status, Vitamin deficiency, Vitamin D deficiency, Mineral deficiency * VITAMIN E(Performed 06/25/2020) Performed for Class 1 obesity due to excess calories with serious comorbidity and body mass index (BMI) of 30.0 to 30.9 in adult, Intestinal malabsorption, unspecified type (HCC), Vitamin K deficiency, Bariatric surgery status, Vitamin deficiency, Vitamin D deficiency, Mineral deficiency * VITAMIN K1(Performed 06/25/2020) Performed for Class 1 obesity due to excess calories with serious comorbidity and body mass index (BMI) of 30.0 to 30.9 in adult, Intestinal malabsorption, unspecified type (HCC), Vitamin K deficiency, Bariatric surgery status, Vitamin deficiency, Vitamin D deficiency, Mineral deficiency * ZINC BLOOD(Performed 06/25/2020) Performed for Class 1 obesity due to excess calories with serious comorbidity and body mass index (BMI) of 30.0 to 30.9 in adult, Intestinal malabsorption, unspecified type (HCC), Vitamin K deficiency, Bariatric surgery status, Vitamin deficiency, Vitamin D deficiency, Mineral deficiency * PTH INTACT(Performed 06/25/2020) Performed for Class 1 obesity due to excess calories with serious comorbidity and body mass index (BMI) of 30.0 to 30.9 in adult, Intestinal malabsorption, unspecified type (HCC), Vitamin K deficiency, Bariatric surgery status, Vitamin deficiency, Vitamin D deficiency, Mineral deficiency * PREALBUMIN(Performed 06/25/2020) Performed for Class 1 obesity due to excess calories with serious comorbidity and body mass index (BMI) of 30.0 to 30.9 in adult, Intestinal malabsorption, unspecified type (HCC), Vitamin K deficiency, Bariatric surgery status, Vitamin deficiency, Vitamin D deficiency, Mineral deficiency * MAGNESIUM BLOOD(Performed 06/25/2020) Performed for Class 1 obesity due to excess calories with serious comorbidity and body mass index (BMI) of 30.0 to 30.9 in adult, Intestinal malabsorption, unspecified type (HCC), Vitamin K deficiency, Bariatric surgery status, Vitamin deficiency, Vitamin D deficiency, Mineral deficiency * IRON BLOOD(Performed 06/25/2020) Performed for Class 1 obesity due to excess calories with serious comorbidity and body mass index (BMI) of 30.0 to 30.9 in adult, Intestinal malabsorption, unspecified type (HCC), Vitamin K deficiency, Bariatric surgery status, Vitamin deficiency, Vitamin D deficiency, Mineral deficiency * FOLATE RBC(Performed 06/25/2020) Performed for Class 1 obesity due to excess calories with serious comorbidity and body mass index (BMI) of 30.0 to 30.9 in adult, Intestinal malabsorption, unspecified type (HCC), Vitamin K deficiency, Bariatric surgery status, Vitamin deficiency, Vitamin D deficiency, Mineral deficiency * FERRITIN(Performed 06/25/2020) Performed for Class 1 obesity due to excess calories with serious comorbidity and body mass index (BMI) of 30.0 to 30.9 in adult, Intestinal malabsorption, unspecified type (HCC), Vitamin K deficiency, Bariatric surgery status, Vitamin deficiency, Vitamin D deficiency, Mineral deficiency * COPPER BLOOD(Performed 06/25/2020) Performed for Class 1 obesity due to excess calories with serious comorbidity and body mass index (BMI) of 30.0 to 30.9 in adult, Intestinal malabsorption, unspecified type (HCC), Vitamin K deficiency, Bariatric surgery status, Vitamin deficiency, Vitamin D deficiency, Mineral deficiency * COMPREHENSIVE METABOLIC PANEL(Performed 06/25/2020) Performed for Class 1 obesity due to excess calories with serious comorbidity and body mass index (BMI) of 30.0 to 30.9 in adult, Intestinal malabsorption, unspecified type (HCC), Vitamin K deficiency, Bariatric surgery status, Vitamin deficiency, Vitamin D deficiency, Mineral deficiency * CBC W/O DIFFERENTIAL(Performed 06/25/2020) Performed for Class 1 obesity due to excess calories with serious comorbidity and body mass index (BMI) of 30.0 to 30.9 in adult, Intestinal malabsorption, unspecified type (HCC), Vitamin K deficiency, Bariatric surgery status, Vitamin deficiency, Vitamin D deficiency, Mineral deficiency * VITAMIN K1(Performed 03/30/2020) * ZINC BLOOD(Performed 10/16/2019) * COPPER BLOOD(Performed 10/16/2019) * SELENIUM(Performed 10/16/2019) * VITAMIN A(Performed 10/16/2019) * VITAMIN B1(Performed 10/16/2019) * VITAMIN K1(Performed 10/16/2019) * VITAMIN D 25-HYDROXY(Performed 10/16/2019) * VITAMIN E(Performed 10/16/2019) * PTH INTACT(Performed 10/16/2019) * VITAMIN B12(Performed 10/16/2019) * FOLATE RBC(Performed 10/16/2019) * FERRITIN(Performed 10/16/2019) * PREALBUMIN(Performed 10/16/2019) * CBC W/O DIFFERENTIAL(Performed 10/16/2019) * COMPREHENSIVE METABOLIC PANEL(Performed 10/16/2019) * MAGNESIUM BLOOD(Performed 10/16/2019) * IRON BLOOD(Performed 10/16/2019) * HELICOBACTER PYLORI UREASE (STL)(Performed 09/19/2019) Performed for Diagnosis unknown * OK ED EGD FLEX TRANSORAL DX(Performed 09/19/2019) * VITAMIN B1(Performed 07/24/2019) Performed for Bariatric surgery status, Class 1 obesity with body mass index (BMI) of 34.0 to 34.9 in adult, unspecified obesity type, unspecified whether serious comorbidity present, Vitamin deficiency, Vitamin D deficiency, Mineral deficiency, Intestinal malabsorption, unspecified type (HCC), Gastroesophageal reflux disease, esophagitis presence not specified, Abdominal pain, unspecified abdominal location, Hypoglycemia * VITAMIN B12(Performed 07/24/2019) Performed for Bariatric surgery status, Class 1 obesity with body mass index (BMI) of 34.0 to 34.9 in adult, unspecified obesity type, unspecified whether serious comorbidity present, Vitamin deficiency, Vitamin D deficiency, Mineral deficiency, Intestinal malabsorption, unspecified type (HCC), Gastroesophageal reflux disease, esophagitis presence not specified, Abdominal pain, unspecified abdominal location, Hypoglycemia * VITAMIN D 25-HYDROXY(Performed 07/24/2019) Performed for Bariatric surgery status, Class 1 obesity with body mass index (BMI) of 34.0 to 34.9 in adult, unspecified obesity type, unspecified whether serious comorbidity present, Vitamin deficiency, Vitamin D deficiency, Mineral deficiency, Intestinal malabsorption, unspecified type (HCC), Gastroesophageal reflux disease, esophagitis presence not specified, Abdominal pain, unspecified abdominal location, Hypoglycemia * ZINC BLOOD(Performed 07/24/2019) Performed for Bariatric surgery status, Class 1 obesity with body mass index (BMI) of 34.0 to 34.9 in adult, unspecified obesity type, unspecified whether serious comorbidity present, Vitamin deficiency, Vitamin D deficiency, Mineral deficiency, Intestinal malabsorption, unspecified type (HCC), Gastroesophageal reflux disease, esophagitis presence not specified, Abdominal pain, unspecified abdominal location, Hypoglycemia * PTH INTACT(Performed 07/24/2019) Performed for Bariatric surgery status, Class 1 obesity with body mass index (BMI) of 34.0 to 34.9 in adult, unspecified obesity type, unspecified whether serious comorbidity present, Vitamin deficiency, Vitamin D deficiency, Mineral deficiency, Intestinal malabsorption, unspecified type (HCC), Gastroesophageal reflux disease, esophagitis presence not specified, Abdominal pain, unspecified abdominal location, Hypoglycemia * MAGNESIUM BLOOD(Performed 07/24/2019) Performed for Bariatric surgery status, Class 1 obesity with body mass index (BMI) of 34.0 to 34.9 in adult, unspecified obesity type, unspecified whether serious comorbidity present, Vitamin deficiency, Vitamin D deficiency, Mineral deficiency, Intestinal malabsorption, unspecified type (HCC), Gastroesophageal reflux disease, esophagitis presence not specified, Abdominal pain, unspecified abdominal location, Hypoglycemia * IRON BLOOD(Performed 07/24/2019) Performed for Bariatric surgery status, Class 1 obesity with body mass index (BMI) of 34.0 to 34.9 in adult, unspecified obesity type, unspecified whether serious comorbidity present, Vitamin deficiency, Vitamin D deficiency, Mineral deficiency, Intestinal malabsorption, unspecified type (HCC), Gastroesophageal reflux disease, esophagitis presence not specified, Abdominal pain, unspecified abdominal location, Hypoglycemia * FOLATE RBC(Performed 07/24/2019) Performed for Bariatric surgery status, Class 1 obesity with body mass index (BMI) of 34.0 to 34.9 in adult, unspecified obesity type, unspecified whether serious comorbidity present, Vitamin deficiency, Vitamin D deficiency, Mineral deficiency, Intestinal malabsorption, unspecified type (HCC), Gastroesophageal reflux disease, esophagitis presence not specified, Abdominal pain, unspecified abdominal location, Hypoglycemia * FERRITIN(Performed 07/24/2019) Performed for Bariatric surgery status, Class 1 obesity with body mass index (BMI) of 34.0 to 34.9 in adult, unspecified obesity type, unspecified whether serious comorbidity present, Vitamin deficiency, Vitamin D deficiency, Mineral deficiency, Intestinal malabsorption, unspecified type (HCC), Gastroesophageal reflux disease, esophagitis presence not specified, Abdominal pain, unspecified abdominal location, Hypoglycemia * COPPER BLOOD(Performed 07/24/2019) Performed for Bariatric surgery status, Class 1 obesity with body mass index (BMI) of 34.0 to 34.9 in adult, unspecified obesity type, unspecified whether serious comorbidity present, Vitamin deficiency, Vitamin D deficiency, Mineral deficiency, Intestinal malabsorption, unspecified type (HCC), Gastroesophageal reflux disease, esophagitis presence not specified, Abdominal pain, unspecified abdominal location, Hypoglycemia * COMPREHENSIVE METABOLIC PANEL(Performed 07/24/2019) Performed for Bariatric surgery status, Class 1 obesity with body mass index (BMI) of 34.0 to 34.9 in adult, unspecified obesity type, unspecified whether serious comorbidity present, Vitamin deficiency, Vitamin D deficiency, Mineral deficiency, Intestinal malabsorption, unspecified type (HCC), Gastroesophageal reflux disease, esophagitis presence not specified, Abdominal pain, unspecified abdominal location, Hypoglycemia * CBC W/O DIFFERENTIAL(Performed 07/24/2019) Performed for Bariatric surgery status, Class 1 obesity with body mass index (BMI) of 34.0 to 34.9 in adult, unspecified obesity type, unspecified whether serious comorbidity present, Vitamin deficiency, Vitamin D deficiency, Mineral deficiency, Intestinal malabsorption, unspecified type (HCC), Gastroesophageal reflux disease, esophagitis presence not specified, Abdominal pain, unspecified abdominal location, Hypoglycemia * LAB RESULTS ORDER(Performed 04/04/2019) * ZINC BLOOD(Performed 02/17/2019) Performed for Bariatric surgery status, Vitamin deficiency, Vitamin D deficiency, Class 1 obesity with body mass index (BMI) of 34.0 to 34.9 in adult, unspecified obesity type, unspecified whether serious comorbidity present, Mineral deficiency, Intestinal malabsorption, unspecified type (HCC) * VITAMIN D 25-HYDROXY(Performed 02/17/2019) Performed for Bariatric surgery status, Vitamin deficiency, Vitamin D deficiency, Class 1 obesity with body mass index (BMI) of 34.0 to 34.9 in adult, unspecified obesity type, unspecified whether serious comorbidity present, Mineral deficiency, Intestinal malabsorption, unspecified type (HCC) * VITAMIN B1(Performed 02/17/2019) Performed for Bariatric surgery status, Vitamin deficiency, Vitamin D deficiency, Class 1 obesity with body mass index (BMI) of 34.0 to 34.9 in adult, unspecified obesity type, unspecified whether serious comorbidity present, Mineral deficiency, Intestinal malabsorption, unspecified type (HCC) * PTH INTACT(Performed 02/17/2019) Performed for Bariatric surgery status, Vitamin deficiency, Vitamin D deficiency, Class 1 obesity with body mass index (BMI) of 34.0 to 34.9 in adult, unspecified obesity type, unspecified whether serious comorbidity present, Mineral deficiency, Intestinal malabsorption, unspecified type (HCC) * MAGNESIUM BLOOD(Performed 02/17/2019) Performed for Bariatric surgery status, Vitamin deficiency, Vitamin D deficiency, Class 1 obesity with body mass index (BMI) of 34.0 to 34.9 in adult, unspecified obesity type, unspecified whether serious comorbidity present, Mineral deficiency, Intestinal malabsorption, unspecified type (HCC) * FOLATE RBC(Performed 02/17/2019) Performed for Bariatric surgery status, Vitamin deficiency, Vitamin D deficiency, Class 1 obesity with body mass index (BMI) of 34.0 to 34.9 in adult, unspecified obesity type, unspecified whether serious comorbidity present, Mineral deficiency, Intestinal malabsorption, unspecified type (HCC) * VITAMIN K1(Performed 02/17/2019) Performed for Bariatric surgery status, Vitamin deficiency, Vitamin D deficiency, Class 1 obesity with body mass index (BMI) of 34.0 to 34.9 in adult, unspecified obesity type, unspecified whether serious comorbidity present, Mineral deficiency, Intestinal malabsorption, unspecified type (HCC) * VITAMIN E(Performed 02/17/2019) Performed for Bariatric surgery status, Vitamin deficiency, Vitamin D deficiency, Class 1 obesity with body mass index (BMI) of 34.0 to 34.9 in adult, unspecified obesity type, unspecified whether serious comorbidity present, Mineral deficiency, Intestinal malabsorption, unspecified type (HCC) * VITAMIN A(Performed 02/17/2019) Performed for Bariatric surgery status, Vitamin deficiency, Vitamin D deficiency, Class 1 obesity with body mass index (BMI) of 34.0 to 34.9 in adult, unspecified obesity type, unspecified whether serious comorbidity present, Mineral deficiency, Intestinal malabsorption, unspecified type (HCC) * SELENIUM(Performed 02/17/2019) Performed for Bariatric surgery status, Vitamin deficiency, Vitamin D deficiency, Class 1 obesity with body mass index (BMI) of 34.0 to 34.9 in adult, unspecified obesity type, unspecified whether serious comorbidity present, Mineral deficiency, Intestinal malabsorption, unspecified type (HCC) * PT-INR(Performed 08/27/2018) Performed for Abnormal bruising, Bariatric surgery status, Fatigue, unspecified type, MIDDLETON (nonalcoholic steatohepatitis), Velasquez's esophagus with dysplasia, DM (diabetes mellitus) type II, controlled, with peripheral vascular disorder (HCC) * VITAMIN K1(Performed 08/27/2018) Performed for Abnormal bruising, Bariatric surgery status, Fatigue, unspecified type, MIDDLETON (nonalcoholic steatohepatitis), Velasquez's esophagus with dysplasia, DM (diabetes mellitus) type II, controlled, with peripheral vascular disorder (HCC) * FERRITIN(Performed 08/27/2018) Performed for Abnormal bruising, Bariatric surgery status, Fatigue, unspecified type, MIDDLETON (nonalcoholic steatohepatitis), Velasquez's esophagus with dysplasia, DM (diabetes mellitus) type II, controlled, with peripheral vascular disorder (HCC) * IRON + TIBC PANEL(Performed 08/27/2018) Performed for Abnormal bruising, Bariatric surgery status, Fatigue, unspecified type, MIDDLETON (nonalcoholic steatohepatitis), Velasquez's esophagus with dysplasia, DM (diabetes mellitus) type II, controlled, with peripheral vascular disorder (HCC) * COMPREHENSIVE METABOLIC PANEL(Performed 07/17/2018) Performed for Bariatric surgery status, Morbid obesity (HCC), Malaise and fatigue * CBC W AUTO DIFFERENTIAL(Performed 07/17/2018) Performed for Bariatric surgery status, Morbid obesity (HCC), Malaise and fatigue * COMPREHENSIVE METABOLIC PANEL(Performed 06/28/2018) * CBC W AUTO DIFFERENTIAL(Performed 06/28/2018) * GLUCOSE - POINT OF CARE(Performed 06/20/2018) * GLUCOSE - POINT OF CARE(Performed 06/20/2018) * FL UGI SERIES(Performed 06/20/2018) Performed for S/P gastric bypass * ENDOTRACHEAL TUBE NOTE(Performed 06/20/2018) * GLUCOSE - POINT OF CARE(Performed 06/20/2018) * VITAMIN D 25-HYDROXY(Performed 06/20/2018) * CBC W AUTO DIFFERENTIAL(Performed 06/20/2018) * BASIC METABOLIC PANEL (CALCIUM TOTAL)(Performed 06/20/2018) * GLUCOSE - POINT OF CARE(Performed 06/19/2018) * GLUCOSE - POINT OF CARE(Performed 06/19/2018) * GLUCOSE - POINT OF CARE(Performed 06/19/2018) * PATHOLOGY TISSUE EXAM (STL)(Performed 06/19/2018) Performed for Diagnosis unknown * LAPAROSCOPIC GASTRIC BYPASS(Performed 06/19/2018) * GLUCOSE - POINT OF CARE(Performed 06/19/2018) * HOME CPAP/BIPAP FOR HOSP USE: NOCTURNAL 02(Performed 06/19/2018) * HOME CPAP/BIPAP FOR HOSP USE: NOCTURNAL 02(Performed 06/19/2018) * POTASSIUM BLOOD(Performed 06/19/2018) Performed for Preop examination * NM HEPATOBILIARY W EF(Performed 04/09/2018) Performed for Nausea and vomiting, intractability of vomiting not specified, unspecified vomiting type * VITAMIN B12(Performed 03/26/2018) Performed for Preop examination * COMPREHENSIVE METABOLIC PANEL(Performed 03/26/2018) Performed for Preop examination * CBC W AUTO DIFFERENTIAL(Performed 03/26/2018) Performed for Preop examination * VITAMIN B1(Performed 03/26/2018) Performed for Preop examination * LAB(Performed 03/21/2018) * US ABDOMEN LIMITED(Performed 03/19/2018) Performed for Nausea and vomiting, intractability of vomiting not specified, unspecified vomiting type * ENDOTRACHEAL TUBE NOTE(Performed 12/25/2017) * GLUCOSE - POINT OF CARE(Performed 12/24/2017) * LAPAROSCOPIC REMOVAL/REPLACEMENT GASTRIC BAND(Performed 12/24/2017) * EKG 12-LEAD(Performed 12/24/2017) Performed for Preoperative examination * BASIC METABOLIC PANEL (CALCIUM TOTAL)(Performed 12/24/2017) Performed for Preoperative examination * FL FLUORO UPPER GI TRACT + KUB(Performed 09/25/2017) Performed for Gastroesophageal reflux disease without esophagitis, Epigastric pain, Bariatric surgery status, BMI 45.0-49.9, adult (HCC), Vitamin deficiency, Vitamin D deficiency * HELICOBACTER PYLORI UREASE (STL)(Performed 09/25/2017) Performed for Diagnosis unknown * ESOPHAGOGASTRODUODENOSCOPY (EGD) DIAGNOSTIC(Performed 09/25/2017) * VITAMIN D 25-HYDROXY(Performed 09/12/2017) Performed for Gastroesophageal reflux disease without esophagitis, Epigastric pain, Bariatric surgery status, BMI 45.0-49.9, adult (HCC), Vitamin deficiency, Vitamin D deficiency * VITAMIN B12(Performed 09/12/2017) Performed for Gastroesophageal reflux disease without esophagitis, Epigastric pain, Bariatric surgery status, BMI 45.0-49.9, adult (HCC), Vitamin deficiency, Vitamin D deficiency * VITAMIN B1(Performed 09/12/2017) Performed for Gastroesophageal reflux disease without esophagitis, Epigastric pain, Bariatric surgery status, BMI 45.0-49.9, adult (HCC), Vitamin deficiency, Vitamin D deficiency * COMPREHENSIVE METABOLIC PANEL(Performed 09/12/2017) Performed for Gastroesophageal reflux disease without esophagitis, Epigastric pain, Bariatric surgery status, BMI 45.0-49.9, adult (HCC), Vitamin deficiency, Vitamin D deficiency * CBC W/O DIFFERENTIAL(Performed 09/12/2017) Performed for Gastroesophageal reflux disease without esophagitis, Epigastric pain, Bariatric surgery status, BMI 45.0-49.9, adult (HCC), Vitamin deficiency, Vitamin D deficiency * FL LAPBAND ADJUST VIA PORT(Performed 03/30/2016) Performed for Fitting and adjustment of gastric lap band * EGD(Performed 02/09/2016) * ESOPHAGOGASTRODUODENOSCOPY (EGD) DIAGNOSTIC(Performed 02/09/2016) * IRIDECTOMY/IRIDOTOMY (LASER)(Performed 01/25/2016) * FL FLUORO UPPER GI TRACT + KUB(Performed 12/14/2015) Performed for Nausea and vomiting, intractability of vomiting not specified, unspecified vomiting type, Epigastric pain, Gastric banding status * CARDIAC EKG ORDER(Performed 11/30/2015) * CT ABDOMEN PELVIS W CONTRAST(Performed 11/29/2015) Performed for Abdominal pain, epigastric * URINE MICROSCOPIC ONLY REFLEX TO CULTURE(Performed 11/29/2015) * URINALYSIS REFLEX MICROSCOPIC REFLEX CULTURE(Performed 11/29/2015) * CULTURE URINE(Performed 11/29/2015) * TROPONIN I(Performed 11/29/2015) * XR CHEST 2VW(Performed 11/29/2015) Performed for Abdominal pain, epigastric * LIPASE BLOOD(Performed 11/29/2015) * COMPREHENSIVE METABOLIC PANEL(Performed 11/29/2015) * CBC W AUTO DIFFERENTIAL(Performed 11/29/2015) * TROPONIN I(Performed 11/29/2015) * EKG 12-LEAD(Performed 11/29/2015) Performed for Abdominal pain, epigastric * PATHOLOGY/GENETICS HISTORICAL-ONBASE(Performed 09/09/2015) * PATHOLOGY TISSUE(Performed 09/15/2014) * FL LAPBAND ADJUST VIA PORT(Performed 12/07/2011) Performed for Morbid obesity (HCC) * FL LAPBAND ADJUST VIA PORT(Performed 09/01/2010) Performed for Morbid obesity (HCC) * FL LAPBAND ADJUST VIA PORT(Performed 08/04/2010) Performed for Morbid obesity (HCC) * FL LAPBAND ADJUST VIA PORT(Performed 07/13/2010) Performed for Morbid obesity (HCC) * FL LAPBAND ADJUST VIA PORT(Performed 04/28/2010) Performed for Morbid obesity (HCC) * FL LAPBAND ADJUST VIA PORT(Performed 04/20/2010) Performed for Morbid obesity (HCC) * FL FLUORO UPPER GI TRACT + KUB(Performed 04/20/2010) Performed for Abnormal weight gain * EGD(Performed 04/20/2010) * FL LAPBAND ADJUST VIA PORT(Performed 03/17/2010) Performed for Morbid obesity (HCC) * PATHOLOGY REPORTS - HPF HISTORICAL(Performed 12/20/2009) * FL LAPBAND ADJUST VIA PORT(Performed 11/04/2009) Performed for Morbid obesity (HCC) * FL LAPBAND ADJUST VIA PORT(Performed 06/17/2009) Performed for Morbid Obesity (HCC) * PATHOLOGY/GENETICS HISTORICAL-ONBASE(Performed 06/16/2009) * PATHOLOGY/GENETICS HISTORICAL-ONBASE(Performed 06/16/2009) * PATHOLOGY/GENETICS HISTORICAL-ONBASE(Performed 06/16/2009) * PATHOLOGY/GENETICS HISTORICAL-ONBASE(Performed 06/16/2009) * FL LAPBAND ADJUST VIA PORT(Performed 04/29/2009) Performed for Morbid Obesity (HCC) * VITAMIN B1(Performed 01/14/2009) Performed for Unspecified Follow-Up Examination * CBC W AUTO DIFFERENTIAL(Performed 01/14/2009) Performed for Unspecified Follow-Up Examination * FOLATE RBC(Performed 01/14/2009) Performed for Unspecified Follow-Up Examination * ZINC BLOOD(Performed 01/14/2009) Performed for Unspecified Follow-Up Examination * COMPREHENSIVE METABOLIC PANEL(Performed 01/14/2009) Performed for Unspecified Follow-Up Examination * MAGNESIUM BLOOD(Performed 01/14/2009) Performed for Unspecified Follow-Up Examination * IRON BLOOD(Performed 01/14/2009) Performed for Unspecified Follow-Up Examination * LIPID PROFILE(Performed 01/14/2009) Performed for Unspecified Follow-Up Examination * PTH INTACT(Performed 01/14/2009) Performed for Unspecified Follow-Up Examination * VITAMIN D 25-HYDROXY(Performed 01/14/2009) Performed for Unspecified Follow-Up Examination * VITAMIN B12(Performed 01/14/2009) Performed for Unspecified Follow-Up Examination * FERRITIN(Performed 01/14/2009) Performed for Unspecified Follow-Up Examination * FL LAPBAND ADJUST VIA PORT(Performed 01/14/2009) Performed for Morbid Obesity (HCC) * FL LAPBAND ADJUST VIA PORT(Performed 12/03/2008) Performed for Morbid Obesity (HCC) * FL LAPBAND ADJUST VIA PORT(Performed 10/22/2008) Performed for Morbid Obesity (HCC) * FL LAPBAND ADJUST VIA PORT(Performed 09/17/2008) Performed for Morbid Obesity (HCC) * FL LAPBAND ADJUST VIA PORT(Performed 08/20/2008) Performed for Morbid Obesity (HCC) * ZINC BLOOD(Performed 07/23/2008) Performed for Morbid Obesity (HCC) * VITAMIN B1(Performed 07/23/2008) Performed for Morbid Obesity (HCC) * VITAMIN D 25-HYDROXY(Performed 07/23/2008) Performed for Morbid Obesity (HCC) * FOLATE RBC(Performed 07/23/2008) Performed for Morbid Obesity (HCC) * HEMOGLOBIN A1C(Performed 07/23/2008) Performed for Morbid Obesity (HCC) * TSH(Performed 07/23/2008) Performed for Morbid Obesity (HCC) * PTH INTACT(Performed 07/23/2008) Performed for Morbid Obesity (HCC) * IRON + TRANSFERRIN PANEL(Performed 07/23/2008) Performed for Morbid Obesity (HCC) * VITAMIN B12(Performed 07/23/2008) Performed for Morbid Obesity (HCC) * FERRITIN(Performed 07/23/2008) Performed for Morbid Obesity (HCC) * MAGNESIUM BLOOD(Performed 07/23/2008) Performed for Morbid Obesity (HCC) * COMPREHENSIVE METABOLIC PANEL(Performed 07/23/2008) Performed for Morbid Obesity (HCC) * LIPID PROFILE(Performed 07/23/2008) Performed for Morbid Obesity (HCC) * CBC W AUTO DIFFERENTIAL(Performed 07/23/2008) Performed for Morbid Obesity (HCC) * FL LAPBAND ADJUST VIA PORT(Performed 07/23/2008) Performed for Morbid Obesity (HCC) * FL LAPBAND ADJUST VIA PORT(Performed 06/04/2008) Performed for Morbid Obesity (HCC) * FL LAPBAND ADJUST VIA PORT(Performed 04/23/2008) Performed for Morbid Obesity (HCC) * FL LAPBAND ADJUST VIA PORT(Performed 03/05/2008) Performed for Morbid Obesity (HCC) * HCG URINE QUALITATIVE - POINT OF CARE(Performed 01/30/2008) * COMPREHENSIVE METABOLIC PANEL(Performed 01/30/2008) * CBC W AUTO DIFFERENTIAL(Performed 01/30/2008) * CULTURE BLOOD(Performed 01/30/2008) * CULTURE BLOOD(Performed 01/30/2008) * CULTURE WOUND(Performed 01/30/2008) * CBC W AUTO DIFFERENTIAL(Performed 01/16/2008) Performed for Morbid Obesity (HCC) * BASIC METABOLIC PANEL (CALCIUM TOTAL)(Performed 01/16/2008) Performed for Morbid Obesity (HCC) * GLUCOSE - POINT OF CARE(Performed 01/15/2008) Performed for Morbid Obesity (HCC) * GLUCOSE - POINT OF CARE(Performed 01/15/2008) Performed for Morbid Obesity (HCC) * GLUCOSE - POINT OF CARE(Performed 01/15/2008) Performed for Morbid Obesity (HCC) * TYPE + SCREEN PANEL(Performed 01/15/2008) Performed for Morbid Obesity (HCC) * GLUCOSE - POINT OF CARE(Performed 01/15/2008) Performed for Morbid Obesity (HCC) * HCG URINE QUALITATIVE - POINT OF CARE(Performed 01/15/2008) Performed for Morbid Obesity (HCC) * HCG URINE QUALITATIVE - POINT OF CARE(Performed 01/15/2008) Performed for Morbid Obesity (HCC) Results * FL UGI W SM BOWEL FOLLOW THRU (07/18/2023 12:00 PM CDT) Anatomical Region Laterality Modality Abdomen Radiographic Caroline ging 07/18/2023 1:58 PM CDT Impressions 07/18/2023 2:08 PM CDT IMPRESSION: 1. Status post Judy-en-Y gastric bypass surgery. Unremarkable upper GI exam. 2. Accompanying small bowel follow-through demonstrates normal caliber small bowel loops without mucosal fold thickening or obstruction. Contrast into the colon at 3 hours. > Interpreting Provider: Klaus Claros DO on 07/18/2023 2:08 PM Narrative 07/18/2023 2:08 PM CDT PROCEDURE: ??FL UGI W SM BOWEL FOLLOW THRU DATE/TIME OF EXAM: ??07/18/2023 12:05 PM CLINICAL INFORMATION: Abdominal pain. History of gastric bypass surgery in 2019. COMPARISON: CT abdomen and pelvis 06/29/2023. Upper GI examination 06/20/2018. TECHNIQUE: Patient ingested thin barium preparation. 454 images were obtained including video format. 2 minutes 10 seconds of fluoroscopy time is utilized. FINDINGS: Esophagus distends appropriately., Mucosal irregularity or annular constricting lesion. No generalized esophageal dilation or focal diverticulum. No laryngeal penetration or tracheal aspiration was identified. Gastroesophageal junction is unremarkable. No hiatal hernia. Gastroesophageal reflux was not identified at the time of exam. Status post Judy-en-Y gastric bypass surgery. Normal morphology of the gastric pouch. Emptying of the stomach via the gastrojejunostomy into the Judy loop. No luminal irregularity or contrast extravasation is identified. The Judy loop was not dilated. No discrete mucosal fold thickening. Additional abdominal radiographs were then obtained. These demonstrate progressive filling of small bowel loops which appear to be normal in caliber. No mucosal fold thickening is evident. No displaced bowel loops are identified. Contrast reaches the colon by 3 hours. Unremarkable appearance of the terminal ileum. FLUOROSCOPY DOSE: ??106.27 mGy Reference air kerma (ka,r). Procedure Note Klaus Claros DO - 07/18/2023 PROCEDURE: FL UGI W SM BOWEL FOLLOW THRU DATE/TIME OF EXAM: 07/18/2023 12:05 PM CLINICAL INFORMATION: Abdominal pain. History of gastric bypass surgeryin 2019. COMPARISON: CT abdomen and pelvis 06/29/2023. Upper GI examination 06/20/2018. TECHNIQUE: Patient ingested thin barium preparation. 454 images were obtained including video format. 2 minutes 10 seconds of fluoroscopytime is utilized. FINDINGS: Esophagus distends appropriately., Mucosal irregularity or annular constricting lesion. No generalized esophageal dilation or focal diverticulum. No laryngeal penetration or tracheal aspiration was identified. Gastroesophageal junction is unremarkable. No hiatal hernia. Gastroesophageal reflux was not identified at the time of exam. Status post Judy-en-Y gastric bypass surgery. Normal morphology of the gastric pouch. Emptying of the stomach via the gastrojejunostomy intothe Judy loop. No luminal irregularity or contrast extravasation isidentified. The Judy loop was not dilated. No discrete mucosal fold thickening. Additional abdominal radiographs were then obtained. These demonstrate progressive filling of small bowel loops which appear to be normal in caliber. No mucosal fold thickening is evident. No displaced bowel loops are identified. Contrast reaches the colon by 3 hours. Unremarkable appearance of the terminal ileum. FLUOROSCOPY DOSE: 106.27 mGy Reference air kerma (ka,r). IMPRESSION: 1. Status post Judy-en-Y gastric bypass surgery. Unremarkable upper GI exam. 2. Accompanying small bowel follow-through demonstrates normal caliber small bowel loops without mucosal fold thickening or obstruction.Contrast into the colon at 3 hours. > Interpreting Provider: Klaus Claros DO on 07/18/2023 2:08 PM Steph Mar SIZE PAINTER-PASTRY MIXER FLUOROSCOPY ORDERABLES * CT ABDOMEN AND PELVIS WITH IV CONTRAST (06/29/2023 12:15 PM CDT) Only the most recent of2 resultswithin the time period is included. Anatomical Region Laterality Modality Abdomen, Pelvis Computed Tomogra phy 06/29/2023 12:3 1 PM CDT Impressions 06/29/2023 3:28 PM CDT IMPRESSION: 1.Postoperative changes at the stomach. 2.Mild bowel wall thickening and a loop of small bowel at the left side of the abdomen. This could be related to limited distention although edema and inflammation are also diagnostic considerations. Please see above discussion for further description. 3.Mild distention of the distal colon with some gas and stool at this segment of bowel. 4.Small calcifications at the right and left kidney. Edited by Cornelia Starkey on 06/29/2023 12:55 PM > Interpreting Provider: Judah Powell MD on 06/29/2023 3:28 PM Narrative 06/29/2023 3:28 PM CDT PROCEDURE: ??CT ABDOMEN PELVIS W CONTRAST, DATE/TIME OF EXAM: ??06/29/2023 12:15 PM, LOCATION ??[facility] INDICATION: R10.12: Left upper quadrant pain. R19.00: Intra-abdominal and pelvic swelling, mass and lump, unspecified site. HISTORY: ??Abdominal pain. COMPARISON: CT from 11/29/2015. TECHNIQUE: 5mm axial images were obtained with 80 mL Isovue-370 IV contrast. Sagittal and coronal reformats were obtained. CT low-dose technique was utilized. One or more of the following CT dose reduction techniques were utilized: *Automated exposure control (AEC) *Adjustment of mA and/or kV according to patient size -Use of iterative reconstruction technique -CT scan done according to ALARA or ALARA/IMAGE GENTLY FINDINGS: INFERIOR CHEST: There is no lung consolidation ? ABDOMEN AND PELVIS: Liver: ??Normal. Adrenal gland: ??Normal. Pancreas: ??Normal. Spleen: Normal. Kidneys: ??There is a small calcification at the right and left kidney. This includes a calcification at the inferior pole of the right kidney which measures 7 mm. There are hypodensities of the kidneys which are probably cysts including a cyst at the superior pole which measures 10 mm. Bladder: Normal. Ascites: None. Adenopathy: ??No enlarged nodes. Additional findings: ??There are postoperative changes at the stomach. There are multiple contrast-filled loops of small bowel. There is gas and stool seen at the colon. There is slight change in caliber of the small bowel at the right lower quadrant which is most likely related to peristalsis. There is some bowel wall thickening seen at loops of small bowel at the left side of the abdomen with the transverse wall diameter measured at 10 mm. See series 4 image 52. This could be related to limited distention or possibly findings of edema and inflammation. Clinical correlation is recommended. There is some distention of the distal colon with gas and stool seen at this location. See series 4 image 84. Significance is unknown. There is calcification of the aorta representing atherosclerosis.. Bones: ??There is osteophyte formation the lower thoracic spine, lumbar spine, and superior sacrum representing degenerative changes. Procedure Note Judah Powell MD - 06/29/2023 PROCEDURE: CT ABDOMEN PELVIS W CONTRAST, DATE/TIME OF EXAM: 06/29/2023 12:15 PM, LOCATION [facility] INDICATION: R10.12: Left upper quadrant pain. R19.00: Intra-abdominal and pelvic swelling, mass and lump, unspecified site. HISTORY: Abdominal pain. COMPARISON: CT from 11/29/2015. TECHNIQUE: 5mm axial images were obtained with 80 mL Isovue-370 IV contrast. Sagittal and coronal reformats were obtained. CT low-dose technique was utilized. One or more of the following CT dose reduction techniques were utilized: *Automated exposure control (AEC) *Adjustment of mA and/or kV according to patient size -Use of iterative reconstruction technique -CT scan done according to ALARA or ALARA/IMAGE GENTLY FINDINGS: INFERIOR CHEST: There is no lung consolidation ABDOMEN AND PELVIS: Liver: Normal. Adrenal gland: Normal. Pancreas: Normal. Spleen: Normal. Kidneys: There is a small calcification at the right and left kidney.This includes a calcification at the inferior pole of the right kidney which measures 7 mm. There are hypodensities of the kidneys which are probably cysts including a cyst at the superior pole which measures 10 mm. Bladder: Normal. Ascites: None. Adenopathy: No enlarged nodes. Additional findings: There are postoperative changes at the stomach.There are multiple contrast-filled loops of small bowel. There is gas andstool seen at the colon. There is slight change in caliber of the small bowelat the right lower quadrant which is most likely related to peristalsis.There is some bowel wall thickening seen at loops of small bowel at the leftside of the abdomen with the transverse wall diameter measured at 10 mm. See series 4 image 52. This could be related to limited distention orpossibly findings of edema and inflammation. Clinical correlation is recommended. There is some distention of the distal colon with gas and stool seen at this location. See series 4 image 84. Significance is unknown. There is calcification of the aorta representing atherosclerosis.. Bones: There is osteophyte formation the lower thoracic spine, lumbar spine, and superior sacrum representing degenerative changes. IMPRESSION: 1.Postoperative changes at the stomach. 2.Mild bowel wall thickening and a loop of small bowel at the left sideof the abdomen. This could be related to limited distention although edemaand inflammation are also diagnostic considerations. Please see above discussion for further description. 3.Mild distention of the distal colon with some gas and stool at this segment of bowel. 4.Small calcifications at the right and left kidney. Edited by Cornelia Starkey on 06/29/2023 12:55 PM > Interpreting Provider: Judah Powell MD on 06/29/2023 3:28 PM Jasson Carrasco MD CT ORDERABLES * GLUCOSE - POINT OF CARE (10/16/2022 8:18 AM CDT) Only the most recent of14 resultswithin the time period is included. Pathologist [facility] [place] Glucose WB/POC 86 70 - 106 mg/dL 10/16/2022 8:20 AM CDT [facility] Specimen Type Cap Fingerstick 2022 8:20 AM CDT [facility] Blood BLOOD SPECIMEN / Unknown 10/16/2022 8:18 AM CDT 10/16/2022 8:20 AM CDT Jasson Carrasco MD LAB - POINT OF CARE ORDERABLES [facility] [address] [place] [address] * EGD (10/16/2022 8:05 AM CDT) Pathologist [facility] [place] Report Endoscopy POC _ Patient Name: Tiffanie Ruiz ?Procedure Date: 10/16/2022 8:05 AM ? Date of : 1960 ? Admit Type: Outpatient Age: 62 ? Gender: Female Attending MD: Jasson Carrasco MD, ?? _ Procedure: ? Upper GI endoscopy Indications: ? Assessment following Judy-en-Y gastrojejunostomy, ? Management of operative complication from previous ? surgery Providers: ? Jasson Carrasco MD (Doctor) Referring MD: ?Jona Bravo MD (Referring MD) Complications: ? No immediate complications. _ Estimated Blood Loss: ? Estimated blood loss: none. Procedure: ? Pre-Anesthesia Assessment: ? - Prior to the procedure, a History and Physical was ? performed, and patient medications and allergies were ? reviewed. The patient's tolerance of previous ? anesthesia was also reviewed. The risks and benefits ? of the procedure and the sedation options and risks ? were discussed with the patient. All questions were ? answered, and informed consent was obtained. Prior ? Anticoagulants: The patient has taken no anticoagulant ? or antiplatelet agents. ASA Grade Assessment: II - A ? patient with mild systemic disease. After reviewing ? the risks and benefits, the patient was deemed in ? satisfactory condition to undergo the procedure. ? After obtaining informed consent, the endoscope was ? passed under direct vision. Throughout the procedure, ? the patient's blood pressure, pulse, and oxygen ? saturations were monitored continuously. The Endoscope ? was introduced through the mouth, and advanced to the ? jejunum. The upper GI endoscopy was accomplished ? without difficulty. The patient tolerated the ? procedure well. ? Findings: ? The examined esophagus was normal. ? Evidence of a gastric bypass was found. A gastric pouch with a 4.5 cm ? length from the GE junction to the gastrojejunal anastomosis was found ? containing non erosive mucosa. The staple line appeared intact. The ? gastrojejunal anastomosis was characterized by healthy appearing mucosa ? and an intact appearance 15mm stoma. This was traversed. Area was ? successfully injected with 10 mL sodium tetradecyl sulfate for the ? purpose of sclerosis. ? The examined jejunum was normal. _ ? Impression: ?- Normal esophagus. ? - Gastric bypass with a pouch 4.5 cm in length and ? intact staple line. Gastrojejunal anastomosis ? characterized by healthy appearing mucosa and an ? intact appearance 15mm stoma. Injected. ? - Normal examined jejunum. ? - No specimens collected. Recommendation: ?- Discharge patient to home. ? - Sclerotherapy diet for 2 weeks. ? Procedure Code(s): ? --- Professional --- ? 71953, Esophagogastroduod enoscopy, flexible, transoral; with directed ? submucosal injection(s), any substance ? --- Technical --- ? 69046, Esophagogastroduod enoscopy, flexible, transoral; with directed ? submucosal injection(s), any substance Diagnosis Code(s): ? --- Professional --- ? Z09, Encounter for follow-up examination after completed treatment for ? conditions other than malignant neoplasm ? Z98.0, Intestinal bypass and anastomosis status ? K91.89, Other postprocedural complications and disorders of digestive ? system ? --- Technical --- ? Z09, Encounter for follow-up examination after completed treatment for ? conditions other than malignant neoplasm ? Z98.0, Intestinal bypass and anastomosis status ? K91.89, Other postprocedural complications and disorders of digestive ? system CPT copyright 2020 [employer]. All rights reserved. The codes documented in this report are preliminary and upon licensed optician review may be revised to meet current compliance requirements. _ Jasson Carrasco MD 10/16/2022 9:00:45 AM Number of Addenda: 0 Note Initiated On: 10/16/2022 8:05 AM [facility] 10/16/2022 8:05 AM CDT Narrative Procedure Note Jasson Carrasco MD - 10/16/2022 9:01 AM CDT PLAN: 1. Sclerotherapy diet 2. PPI daily Jasson Carrasco MD GI PROCEDURE ORDERAB LES [facility] [place] [address] * EGD (08/21/2022 7:16 AM CDT) Report Endoscopy POC _ Patient Name: Tiffanie Ruiz ?Procedure Date: 08/21/2022 7:16 AM ? Date of : 1960 ? Admit Type: Outpatient Age: 62 ? Gender: Female Attending MD: Jasson Carrasco MD, ?? _ Procedure: ? Upper GI endoscopy Indications: ? Assessment following Judy-en-Y gastrojejunostomy, ? Management of operative complication from previous ? surgery Providers: ? Jasson Carrasco MD (Doctor) Complications: ? No immediate complications. _ Estimated Blood Loss: ? Estimated blood loss: none. Procedure: ? Pre-Anesthesia Assessment: ? - Prior to the procedure, a History and Physical was ? performed, and patient medications and allergies were ? reviewed. The patient's tolerance of previous ? anesthesia was also reviewed. The risks and benefits ? of the procedure and the sedation options and risks ? were discussed with the patient. All questions were ? answered, and informed consent was obtained. Prior ? Anticoagulants: The patient has taken no anticoagulant ? or antiplatelet agents. ASA Grade Assessment: II - A ? patient with mild systemic disease. After reviewing ? the risks and benefits, the patient was deemed in ? satisfactory condition to undergo the procedure. ? After obtaining informed consent, the endoscope was ? passed under direct vision. Throughout the procedure, ? the patient's blood pressure, pulse, and oxygen ? saturations were monitored continuously. The Endoscope ? was introduced through the mouth, and advanced to the ? jejunum. The upper GI endoscopy was accomplished ? without difficulty. The patient tolerated the ? procedure well. ? Findings: ? The examined esophagus was normal. ? Evidence of a gastric bypass was found. A gastric pouch with a 4 cm ? length from the GE junction to the gastrojejunal anastomosis was found ? containing non erosive mucosa. The staple line appeared intact. The ? gastrojejunal anastomosis was characterized by healthy appearing mucosa ? stoma >20mm. This was traversed. Area was successfully injected with 10 ? mL sodium tetradecyl sulfate for the purpose of sclerosis. ? The examined jejunum was normal. _ ? Impression: ?- Normal esophagus. ? - Gastric bypass with a pouch 4 cm in length and ? intact staple line. Gastrojejunal anastomosis ? characterized by healthy appearing mucosa stoma >20mm. ? Injected. ? - Normal examined jejunum. ? - No specimens collected. Recommendation: ?- Discharge patient to home. ? - Resume previous diet. ? - Continue present medications. ? Procedure Code(s): ? --- Professional --- ? 09000, Esophagogastroduod enoscopy, flexible, transoral; with directed ? submucosal injection(s), any substance ? --- Technical --- ? 66211, Esophagogastroduod enoscopy, flexible, transoral; with directed ? submucosal injection(s), any substance Diagnosis Code(s): ? --- Professional --- ? Z09, Encounter for follow-up examination after completed treatment for ? conditions other than malignant neoplasm ? Z98.0, Intestinal bypass and anastomosis status ? K91.89, Other postprocedural complications and disorders of digestive ? system ? --- Technical --- ? Z09, Encounter for follow-up examination after completed treatment for ? conditions other than malignant neoplasm ? Z98.0, Intestinal bypass and anastomosis status ? K91.89, Other postprocedural complications and disorders of digestive ? system CPT copyright 2020 [employer]. All rights reserved. The codes documented in this report are preliminary and upon licensed optician review may be revised to meet current compliance requirements. _ Jasson Carrasco MD 08/21/2022 8:35:24 AM Number of Addenda: 0 Note Initiated On: 08/21/2022 7:16 AM [facility] 08/21/2022 7:16 AM CDT Narrative Procedure Note Jasson Carrasco MD - 08/21/2022 8:35 AM CDT PLAN: 1. Sclerotherapy diet for 4 weeks 2. Nurse to call in 4-6 weeks to assess for improvement in BG regulation Jasson Carrasco MD GI PROCEDURE ORDERAB LES Performing Organization Address City/[facility]/ZIP Co de Phone Number [facility] [place] [address] * (ABNORMAL) VITAMIN K1 (06/05/2022 10:49 AM CDT) Only the most recent of7 resultswithin the time period is included. Vitamin K 86(L) 130 - 1500 pg/mL [facility] Comment: This test was developed and its analytical performance characteristics have been determined by [employer]. It has not been cleared or approved by the FDA. This assay has been validated pursuant to the CLIA regulations and is used for clinical purposes. Test Performed at: [facility] [address] ??[address] DOMINIQUE KOWALSKI MD 06/05/2022 10:4 9 AM CDT 06/05/2022 10:50 AM CDT Ivette Monteiro SIZE PAINTER-[facility]Y [facility] - [facility] ZAID ORDERABLES [facility] [address] [place] [address] * (ABNORMAL) ZINC BLOOD (06/05/2022 10:49 AM CDT) Only the most recent of8 resultswithin the time period is included. Zinc 57(L) 60 - 130 mcg/dL [facility] Comment: This test was developed and its analytical performance characteristics have been determined by [employer]. It has not been cleared or approved by the FDA. This assay has been validated pursuant to the CLIA regulations and is used for clinical purposes. REPORT COMMENT: FASTING:YES Test Performed at: [facility] [address] ??[address] SANDRA FOX 06/05/2022 10:4 9 AM CDT 06/05/2022 10:50 AM CDT Ivette Monteiro [facility] ORDERABLES Performing Organization Address [facility] de Phone Number [address] [address] * VITAMIN A (06/05/2022 10:49 AM CDT) Only the most recent of5 resultswithin the time period is included. Pathologist [facility] Vitamin A 47 38 - 98 mcg/dL [facility] Comment: Clin Chem Vol. 34.No.8. [id number]. 1998 Vitamin supplementation within 24 hours prior to blood draw may affect the accuracy of results. ?? This test was developed and its analytical performance characteristics have been determined by [employer]. It has not been cleared or approved by the FDA. This assay has been validated pursuant to the CLIA regulations and is used for clinical purposes. Test Performed at: [facility] [address] ??[address] DOMINIQUE KOWALSKI MD 06/05/2022 10:4 9 AM CDT 06/05/2022 10:50 AM CDT Ivette Monteiro [facility] ORDERABLES Performing Organization Address [facility] de Phone Number [facility] [phone] [place] [address] * VITAMIN E (06/05/2022 10:49 AM CDT) Only the most recent of5 resultswithin the time period is included. Pathologist [facility] Alpha-Tocopherol 10.3 mg/L [facility] Comment: ?Reference Range ?5.7-19.9 mg/L ?Levels of alpha-tocopherol <5 mg/L are ?consistent with Vitamin E deficiency in ?adults. Vitamin supplementation within 24 hours prior to blood draw may affect the accuracy of results. ? See Note 1 Beta-Gamma Tocopherol <1.0 <4.4 mg/L [facility] Comment: See Note 1 Test Performed at: [facility] [address] ??[address] DOMINIQUE KOWALSKI MD 06/05/2022 10:4 9 AM CDT 06/05/2022 10:50 AM CDT Ivette Alyson Monteiro SIZE PAINTER-[facility]STRY [facility] - [place] August ORDERABLES Performing Organization Address [facility] de Phone Number [address] [address] * VITAMIN B1 (06/05/2022 10:49 AM CDT) Only the most recent of10 resultswithin the time period is included. [facility] Vitamin B1 Whole Blood 161 78 - 185 nmol/L [facility] Comment: Vitamin supplementation within 24 hours prior to blood draw may affect the accuracy of results. This test was developed and its analytical performance characteristics have been determined by [employer]. It has not been cleared or approved by the FDA. This assay has been validated pursuant to the CLIA regulations and is used for clinical purposes. Test Performed at: [facility] [address] ??[address] DOMINIQUE KOWALSKI MD 06/05/2022 10:4 9 AM CDT 06/05/2022 10:50 AM CDT Ivette Alyson Monteiro SIZE [facility]INTER[facility] - [facility] ORDERABLES Performing Organization Address [facility] de Phone Number [address] [address] * PTH INTACT (06/05/2022 10:49 AM CDT) Only the most recent of8 resultswithin the time period is included. PTH Intact 71 16 - 77 pg/mL [facility] Comment: Interpretive Guide ?Intact PTH ? Calcium ? ------- Normal Parathyroid ?Normal ? Normal Hypoparathyroidism ?Low or Low Normal ?Low Hyperparathyroidism ?? Primary ?Normal or High ? High ?? Secondary ?High ? Normal or Low ?? Tertiary ? High ? High Non-Parathyroid ?? Hypercalcemia ?Low or Low Normal ?High Test Performed at: [facility] [address] [place], [place] ??[address] ARACELY DANIEL MD 06/05/2022 10:4 9 AM CDT 06/05/2022 10:50 AM CDT Ivette Shields [place] SIZE PAINTER-[facility] - [facility] ORDERABLES Performing Organization Address City/State/[facility] Co de Phone Number [facility] [address] [place] [address] * COPPER BLOOD (06/05/2022 10:49 AM CDT) Only the most recent of5 resultswithin the time period is included. Pathologist [facility] Copper 84 70 - 175 mcg/dL [facility] Comment: This test was developed and its analytical performance characteristics have been determined by [employer]. It has not been cleared or approved by the FDA. This assay has been validated pursuant to the CLIA regulations and is used for clinical purposes. Test Performed at: [facility] [address] ??[address] SANDRA FOX 06/05/2022 10:4 9 AM CDT 06/05/2022 10:50 AM CDT Ivette Shields [place] SIZE PAINTER-[facility]Y [facility] - [facility] ORDERABLES Performing Organization Address [facility] de Phone Number [facility] [address] [place] [address] * FOLATE RBC (06/05/2022 10:49 AM CDT) Only the most recent of8 resultswithin the time period is included. Folate RBC 616 >280 ng/mL RBC [facility] Comment: Test Performed at: [facility] ??[address] ARACELY DANIEL MD 06/05/2022 10:4 9 AM CDT 06/05/2022 10:50 AM CDT Ivette Shields [place] [facility] ORDERABLES Performing Organization Address [facility] de Phone Number [facility] [address] [place] [address] * (ABNORMAL) VITAMIN D 25-HYDROXY (06/05/2022 10:49 AM CDT) Only the most recent of10 resultswithin the time period is included. Vitamin D, 25 Hydroxy 29(L) 30 - 100 ng/mL [facility] Comment: Vitamin D Status ? 25-OH Vitamin D: Deficiency: ?<20 ng/mL Insufficiency: ? 20 - 29 ng/mL Optimal: ? > or = 30 ng/mL For 25-OH Vitamin D testing on patients on D2-supplementation and patients for whom quantitation of D2 and D3 fractions is required, the QuestAssureD(TM) 25-OH VIT D, (D2,D3), LC/MS/MS is recommended: order code 58209 (patients >2yrs). See Note 2 Note 1 This test was developed and its analytical performance characteristics have been determined by [employer]. It has not been cleared or approved by the FDA. This assay has been validated pursuant to the CLIA regulations and is used for clinical purposes. Note 2 For additional information, please refer to http://education.Zeo/faq/UXB259 (This link is being provided for informational/ educational purposes only.) Test Performed at: [facility] [address] [place] ??[address] ARACELY DANIEL MD 06/05/2022 10:4 9 AM CDT 06/05/2022 10:50 AM CDT Ivette Shields [place] SIZE PAINTER-[facility] - [facility] ORDERABLES [facility] [address] [place] [address] * (ABNORMAL) CBC W/O DIFFERENTIAL (06/05/2022 10:49 AM CDT) Only the most recent of6 resultswithin the time period is included. White Blood Cell Count 5.1 3.8 - 10.8 Thousand/u L [facility] RBC 3.70(L) 3.80 - 5.10 Million/uL [facility] Hemoglobin 12.6 11.7 - 15.5 g/dL [facility] Hematocrit 36.5 35.0 - 45.0 % [facility] MCV 98.6 80.0 - 100.0 fL [facility] MCH 34.1(H) 27.0 - 33.0 pg [facility] MCHC 34.5 32.0 - 36.0 g/dL [facility] RDW 12.3 11.0 - 15.0 % [facility] Platelet Count 164 140 - 400 Thousand/u L [facility] MPV 10.3 7.5 - 12.5 fL [facility] Comment: Test Performed at: [facility] [address] [place] [address] ??[phone] ARACELY DANIEL MD 06/05/2022 10:4 9 AM CDT 06/05/2022 10:50 AM CDT Ivette Shields [place] SIZE PAINTER-PASTRY MIXER LAB - HEM ATOLOGY ORDERABLES [facility] [address] [place] [address] * COMPREHENSIVE METABOLIC PANEL (06/05/2022 10:49 AM CDT) Only the most recent of13 resultswithin the time period is included. Glucose 86 65 - 99 mg/dL [facility] [...] kdoqi/gfr%5Fcalculator BUN/Creatinine Ratio NOT APPLICABLE 6 - (calc) [facility] Sodium 141 135 - 146 [...] 29 U/L [facility] Comment: Test Performed at: [facility] [address] [facility] [place] ??[address] ARACELY DANIEL MD 06/05/2022 10:4 9 AM CDT 06/05/2022 10:50 AM CDT Ivette Shields [place] SHELLN-PASTRY [facility]IXER [facility] - [place] [address] * PREALBUMIN (06/05/2022 10:49 AM CDT) Only the most recent of4 resultswithin the time period is included. Prealbumin 20 17 - 34 mg/dL [facility] Comment: Test Performed at: [facility] [place] [place] ??[address] ARACELY DANIEL MD 06/05/2022 10:4 9 AM CDT 06/05/2022 10:50 AM CDT Ivette Shields [place] SIZE PAINTER-PA[facility]Y [facility] - [facility] [facility]ID ORDERABLES Performing Organization Address [facility] [place] [address] * MAGNESIUM BLOOD (06/05/2022 10:49 AM CDT) Only the most recent of8 resultswithin the time period is included. Magnesium 2.2 1.5 - 2.5 mg/dL [facility] Comment: Test Performed at: [place] ??[address] ARACELY DANIEL MD 06/05/2022 10:4 9 AM CDT 06/05/2022 10:50 AM CDT Ivette Alysonrenato Monteiro APRN-PASTRY MIXER LAB - [facility] ZAID ORDERABLES Performing Organization Address [facility] de Phone Number [place] [phone] * IRON BLOOD (06/05/2022 10:49 AM CDT) Only the most recent of5 resultswithin the time period is included. Iron 105 45 - 160 mcg/dL [facility] Comment: Test Performed at: [facility] [place] ??[address] ARACELY DANIEL MD 06/05/2022 10:4 9 AM CDT 06/05/2022 10:50 AM CDT Ivette Monteiro SIZE PAINTER-PASTRY [facility] - [facility] [facility] ORDERABLES Performing Organization Address [facility] de Phone Number [place] [phone] * VITAMIN B12 (06/05/2022 10:49 AM CDT) Only the most recent of9 resultswithin the time period is included. Pathologist [facility] Vitamin B12 547 200 - 1100 pg/mL [facility] Comment: Test Performed at: [facility] [address] [place] ??[address] ARACELY DANIEL MD 06/05/2022 10:4 9 AM CDT 06/05/2022 10:50 AM CDT Ivette Shields [place] SHELLN-PASTRY [facility] - [facility] [facility] ORDERABLES Performing Organization Address [facility] [place] [address] * (ABNORMAL) FERRITIN (06/05/2022 10:49 AM CDT) Only the most recent of8 resultswithin the time period is included. Pathologist [facility] Ferritin 7(L) 16 - 288 ng/mL [facility] Comment: Test Performed at: [facility] [address] [place] ??[address] ARACELY DANIEL MD 06/05/2022 10:4 9 AM CDT 06/05/2022 10:50 AM CDT Ivette Monteiro APRN-PASTRY MIXER [facility] - [facility] [facility] ORDERABLES Performing Organization Address [facility] de Phone Number [place] [phone] * IRON + TIBC PANEL (08/24/2021 3:15 PM CDT) Only the most recent of2 resultswithin the time period is included. Iron 116 45 - 160 mcg/dL [facility] TIBC 440 250 - 450 mcg/dL (calc) [facility] % Saturation 26 16 - 45 % (calc) [facility] Comment: Test Performed at: [facility] [address] [place], [place] ??[address] TANESHA HTOMAS DO,MPH Blood BLOOD SPECIMEN / Unknown 08/24/2021 3:15 PM CDT 08/24/2021 3:16 PM CDT Ivette Alyson Cayetano SIZE PAINTER-PASTRY MIXER LAB - [facility] ZAID ORDERABLES [facility] [address] [place] [address] * PATHOLOGY TISSUE (08/03/2020 10:12 AM CDT) Only the most recent of2 resultswithin the time period is included. Case Report Surgical Pathology Report ? Case: [id number] ? Authorizing Provider: ??Soham Farley MD ? Collected: ? 08/03/2020 10:12 AM ? Ordering Location: ? [facility] ?Received: ?08/03/2020 11:31 AM ? Pathologist: ? Vannessa Mendoza MD ? Specimen: ?Colon, hepatic flexure polyp ? [facility]2020 2:[facility] Final Diagnosis Large intestine, hepatic flexure polyp, biopsy (A): - Tubular adenoma 08/04/2020 2:54 PM [facility] Microscopic Description and Comment Microscopic examination substantiates the final diagnosis. 08/04/2020 2:54 PM [facility] Clinical History The patient is a 60-year-old woman who presents for surveillance colonoscopy (personal history of adenomatous polyps). Operative procedure/findings: Colonoscopy - 3 mm hepatic flexure polyp, resected and retrieved. 08/04/2020 2:54 PM [facility] Gross Description The requisition and specimen(s) are identified with the patient's name, Tiffanie Ruiz. Received in formalin, specimen A is a light-baptiste mucosal tissue fragment, 0.6 x 0.3 x 0.2 cm. Entirely submitted in cassette A1. LJ 08/04/2020 2:54 PM [facility] Disclaimer The performance characteristics of all immunohistochemical and indirect immunofluorescence stains (if any) cited in this report were determined by the Histopathology Laboratory of [facility]. Some of these tests were developed by our own laboratory and have not been cleared or approved by the US Food and Drug Administration. The FDA does not require this test to go through premarket FDA review. These tests are used for clinical purposes. They should not be regarded as investigational or for research. This laboratory is certified under the Clinical Laboratory Improvement Amendments (CLIA) as qualified to perform high complexity clinical laboratory testing. This case has been personally reviewed and interpreted by the attending (teaching) pathologist. 08/04/2020 2:54 PM [facility] Embedded Images 08/04/2020 2:54 PM [facility] Biopsy, NOS COLON PART / Unknown 08/03/2020 10:12 AM CDT 08/03/2020 11:31 AM CDT Comment:Pre-op diagnosis: Screen for colon cancer [Z12.11] Soham Hutton MD LAB - PATH OLOGY/CYTOLOGY ORDERABLES Performing Organization Address [facility]/State/ZIP Co de Phone Number [facility] [address] [place] [address], [facility] [phone] * ENDOSCOPY, COLON, SCREENING (08/03/2020 9:10 AM CDT) Report Endoscopy POC Endoscopy Department Report _ Patient Name: Tiffanie Ruiz ?Procedure Date: 08/03/2020 9:10 AM ? Date of : 1960 Classification: Outpatient ?Gender: Female Ethnicity: Not or ? Race: White _ Providers: ?Soham Farley MD Referring MD: ? Jona Bravo (Referring ) Procedure: ?Colonoscopy Indications: ?Surveillance: Personal history of [...] Procedure Code(s): ? --- Professional --- ? 16985, Colonoscopy, flexible; with biopsy, single or multiple Diagnosis Code(s): ?--- Professional --- ?Z86.010, Personal history of colonic polyps ?K63.5, Polyp of colon ?K57.30, Diverticulosis of large intestine without ?perforation or abscess without bleeding CPT copyright 2019 [employer]. All rights reserved. The codes documented in this report are preliminary and upon licensed optician review may be revised to meet current compliance requirements. Soham Farley MD 08/03/2020 10:38:53 AM This report has been signed electronically. Note Initiated On: 08/03/2020 9:10 AM Number of Addenda: 0 ? [facility] ? [address] [place], [place] [id number] [place] [address] [employer]ATION 08/03/2020 9:10 AM CDT Soham Hutton MD GI PROCEDU RE ORDERABLES [facility] [employer] * EGD (08/03/2020 8:27 AM CDT) Report Endoscopy POC Endoscopy Department Report _ Patient Name: Tiffanie Ruiz ?Procedure Date: 08/03/2020 8:27 AM ? Date of : 1960 Classification: Outpatient ?Gender: Female Ethnicity: Not or ? Race: White _ Providers: ?Soham Farley MD Referring MD: ? Kirill Jean MD Procedure: ?Upper GI endoscopy Indications: ?Epigastric abdominal pain, hx of Velasquez's esophagus Medications: ?Monitored Anesthesia Care Description of Procedure: [...] no previous aspirin or NSAID medications. ?After obtaining informed consent, the endoscope was ?passed under direct vision. Throughout the ?procedure, the patient's blood pressure, pulse, and ?oxygen saturations were monitored continuously. The ?Endoscope was introduced through the mouth, and ?advanced to the afferent and efferent jejunal ?loops. The upper GI endoscopy was accomplished ?without difficulty. The patient tolerated the ?procedure well. ? Findings: ? The Z-line was regular and was found 36 cm from the incisors. ? The examined esophagus was normal. No evidence of Velasquez's mucosa. ? Evidence of a Judy-en-Y gastrojejunostomy was found. The gastrojejunal ? anastomosis was characterized by healthy appearing mucosa and the ? presence of no stomal ulceration. This was traversed. The ? slwmr-pn-vpprtfs limb was characterized by healthy appearing mucosa. The ? jejunojejunal anastomosis was characterized by healthy appearing mucosa. ? The exam of the stomach was otherwise normal. ? Estimated Blood Loss: ? Estimated blood loss: none. Complications: ?No immediate complications. Impression: ? - Z-line regular, 36 cm from the incisors. ?- Normal esophagus. ?- Judy-en-Y gastrojejunostomy with gastrojejunal ?anastomosis characterized by healthy appearing ?mucosa and no stomal ulceration. ?- No specimens collected. Recommendation: ? - Discharge patient to home (with escort). ?- Patient has a contact number available for ?emergencies. The signs and symptoms of potential ?delayed complications were discussed with the ?patient. Return to normal activities tomorrow. ?Written discharge instructions were provided to the ?patient. ?- Resume previous diet. ?- Continue present medications. ? Attending Participation: ??I personally performed the entire procedure. ? Procedure Code(s): ? --- Professional --- ? 56405, Esophagogastroduoden oscopy, flexible, transoral; diagnostic, ? including collection of specimen(s) by brushing or washing, when ? performed (separate procedure) Diagnosis Code(s): ?--- Professional --- ?Z98.0, Intestinal bypass and anastomosis status ?R10.13, Epigastric pain CPT copyright 2019 [employer]. All rights reserved. The codes documented in this report are preliminary and upon licensed optician review may be revised to meet current compliance requirements. Soham Farley MD 08/03/2020 10:33:04 AM This report has been signed electronically. Note Initiated On: 08/03/2020 8:27 AM Number of Addenda: 0 ? [facility] ? [address] [place], [place] [id number] [place] [address] PROVATION 08/03/2020 8:27 AM CDT Soham Hutton MD GI PROCEDU RE ORDERABLES [facility] PROVATION * SELENIUM (10/16/2019 12:14 PM CDT) Only the most recent of2 resultswithin the time period is included. Pathologist [facility] [place] Selenium 139 63 - 160 mcg/L [facility] Comment: This test was developed and its analytical performance characteristics have been determined by [employer]. It has not been cleared or approved by the FDA. This assay has been validated pursuant to the CLIA regulations and is used for clinical purposes. Test Performed at: [facility] [address] [place], [place] ??[address] KAIT BLACK MD,PHD 10/16/2019 12:1 4 PM CDT 10/16/2019 12:14 PM CDT Ivette Monteiro SIZE PAINTER-PASTRY MIXER LAB - LEORA ZAID ORDERABLES Performing Organization Address [facility] Co de Phone Number [facility] [address] [place] [address] * HELICOBACTER PYLORI UREASE (STL) (09/19/2019 9:02 AM CDT) Only the most recent of2 resultswithin the time period is included. [facility] Helicobacter pylori Urease Initial Negative Negative 09/20/2019 3:43 PM CDT [facility] Helicobacter pylori Urease Final Negative Negative 09/20/2019 3:43 PM CDT [facility] Comment:This is an appended report. These results have been appended to a previously preliminary verified report. Microbiology GASTRIC ANTRAL BIOPSY SPECIMEN / Unknown 09/19/2019 9:02 AM CDT 09/19/2019 9:45 AM CDT Jasson Carrasco MD LAB - MICROBIOLOGY O RDERABLES Performing Organization Address City/[facility]/ZIP Co de Phone Number [facility] [address] [place] [address] * LAB RESULTS ORDER (04/04/2019 7:44 AM AIRCRAFT INSTRUMENT MECHANIC) Narrative 04/04/2019 7:44 AM AIRCRAFT INSTRUMENT MECHANIC Ordered by an unspecified provider. Scanned Document LAB - THERAPEUTIC DR UG MONITORING ORDERABLES * PT-INR (08/27/2018 2:24 PM CDT) [facility] INR 1.1 0.8 - 1.2 [facility] INSURANCE BILL Comment: ? Reference interval is for non-anticoagulated patients. ?. ? Suggested INR therapeutic range for Vitamin K ? antagonist therapy: ?Standard Dose (moderate intensity ? therapeutic range): ? 2.0 - 3.0 ?Higher intensity therapeutic range ? 2.5 - 3.5 PT 11.4 9.1 - 12.0 sec [facility] INSURANCE BILL Blood BLOOD SPECIMEN / Unknown 08/27/2018 2:24 PM CDT 08/27/2018 Narrative Resulting Agency Comment Lab Testing performed at: [address] ??[facility] [phone] Ivette Monteiro SIZE PAINTER-PASTRY MIXER LAB - COA GULATION ORDERABLES [facility] INSURANCE BILL [address] [place] [address] * (ABNORMAL) CBC WITH DIFFERENTIAL (07/17/2018 2:54 PM CDT) Only the most recent of9 resultswithin the time period is included. [facility] WBC 6.5 3.4 - 10.8 x10E3/uL [facility] INSURANCE BILL RBC 4.20 3.77 - 5.28 x10E6/uL [facility] INSURANCE BILL Hemoglobin 14.7 11.1 - 15.9 g/dL [facility] INSURANCE BILL Hematocrit 42.2 34.0 - 46.6 % [facility] INSURANCE BILL MCV 101(H) 79 - 97 fL [facility] INSURANCE BILL MCH 35.0(H) 26.6 - 33.0 pg [facility] INSURANCE BILL MCHC 34.8 31.5 - 35.7 g/dL [facility] INSURANCE BILL RDW 12.0(L) 12.3 - 15.4 % [facility] INSURANCE BILL Platelet Count 193 150 - 450 x10E3/uL [facility] INSURANCE BILL Granulocytes % 69 Not Estab. % [facility] INSURANCE BILL Lymphocytes % 17 Not Estab. % [facility] INSURANCE BILL Monocytes % 12 Not Estab. % [facility] INSURANCE BILL Eosinophils % 2 Not Estab. % [facility] INSURANCE BILL Basophils % 0 Not Estab. % [facility] INSURANCE BILL Immature Cells NOT NEEDED [facility] INSURANCE BILL Comment:Ancillary determined the test is not needed Granulocytes Absolute 4.5 1.4 - 7.0 x10E3/uL [facility] INSURANCE BILL Lymphocytes Absolute 1.1 0.7 - 3.1 x10E3/uL [facility] INSURANCE BILL Monocytes Absolute 0.8 0.1 - 0.9 x10E3/uL [facility] INSURANCE BILL Eosinophils Absolute 0.1 0.0 - 0.4 x10E3/uL [facility] INSURANCE BILL Basophils Absolute 0.0 0.0 - 0.2 x10E3/uL [facility] INSURANCE BILL Immature Granulocytes 0 Not Estab. % [facility] INSURANCE BILL Immature Granulocytes Absolute 0.0 0.0 - 0.1 x10E3/uL [facility] INSURANCE BILL nRBC NOT NEEDED [facility] INSURANCE BILL Comment:Ancillary determined the test is not needed Comment Hematology NOT NEEDED [facility] INSURANCE BILL Comment: FASTING Ancillary determined the test is not needed Blood BLOOD SPECIMEN / Unknown 07/17/2018 2:54 PM CDT 07/17/2018 Narrative Resulting Agency Comment Lab Testing performed at: [place] [id number] [facility] ??[facility] [id number] Steph Mar APRN-PASTRY MIXER LAB - HEMATO LOGY ORDERABLES [facility] INSURANCE BILL [address] [place] [address] * FL UGI SERIES WO KUB (06/20/2018 8:27 AM CDT) Anatomical Region Laterality Modality Abdomen Radiographic Caroline ging 06/20/2018 9:44 AM CDT Impressions 06/20/2018 9:44 AM CDT No evidence of ??leak or obstruction. Reading Radiologist: Dominique Benz MD on 06/20/2018 at 9:44 AM Narrative 06/20/2018 9:44 AM CDT Limited Upper GI after Gastric Bypass Indication: Morbid obesity, gastric surgery, gastric leak. Findings: Fluoroscopy of the gastric remnant was performed following ingestion of oral contrast media. There is no evidence of leak. There is prompt emptying into the small bowel. Total Fluoro Time = 15 seconds, no spot fluoroscopic imaging was obtained as cine' fluoroscopy was utilized with cine' fluoroscopy images saved in video format. Procedure Note Dominique Benz MD - 06/20/2018 Limited Upper GI after Gastric Bypass Indication: Morbid obesity, gastric surgery, gastric leak. Findings: Fluoroscopy of the gastric remnant was performed following ingestion of oral contrast media. There is no evidence of leak. There is prompt emptying into the small bowel. Total Fluoro Time = 15 seconds, no spot fluoroscopic imaging was obtained as cine' fluoroscopy was utilized with cine' fluoroscopy images saved in video format. IMPRESSION No evidence of leak or obstruction. Reading Radiologist: Dominique Benz MD on 06/20/2018 at 9:44 AM Jasson Carrasco MD FLUOROSCOPY ORDERABL ES * ENDOTRACHEAL TUBE NOTE (06/20/2018 6:08 AM CDT) Narrative Dominique Pool, - 06/20/2018 6:08 AM CDT Zahira Newell, KERRY-CONSERVATOR ARTIFACTS ? 06/19/2018 12:29 PM Endotracheal Tube Placement: ? Patient Location: OR. Procedure: intubation (33905). Procedure Section: ?? Sedation: under general anesthesia. Indications for Airway Management: ??anesthesia Pretreatment: 100% O2. Induction: rapid sequence and cricoid pressure Patient Position: ??supine Mask Ventilation: not attempted. Blade Type: Video (glidescope) Blade Size: 4 Laryngoscopy View: grade 2 (partial cords) Intubation Adjuncts: stylet, cricoid pressure and video laryngoscope Device: endotracheal tube Placement: oral Tube type: cuff - inflated Tube Size (FR): 7 Depth of Insertion (CM): 21 Measured From: lips Cuff volume (mL): ??6 Cuff Inflated With: air Number of Attempts: 1. Placement Verified By: direct visualization, bilateral breath sounds, chest auscultation, CO2 monitor and CO2 detector Tube secured with: ??adhesive tape. Difficult Airway? ??Yes. ?Technique: video laryngoscope ? Reason: anterior larynx, neck immobility and obesity Staff Section ?? Anesthesia Provider: ZAHIRA NEWELL, Performed the procedure Dominique Pool DO GENERAL ANESTHESIA O RDERABLES * (ABNORMAL) BASIC METABOLIC PANEL (CALCIUM TOTAL) (06/20/2018 3:15 AM CDT) Only the most recent of3 resultswithin the time period is included. Pathologist [facility] [place] Glucose 108(H) 74 - 106 mg/dL 06/20/2018 4:37 AM CDT [facility] Sodium 138 136 - 145 mmol/L 06/20/2018 4:37 AM CDT [facility] Potassium 4.0 3.5 - 5.1 mmol/L 06/20/2018 4:37 AM CDT [facility] Chloride 102 98 - 107 mmol/L 06/20/2018 4:37 AM CDT [facility] CO2 25 23 - 31 mmol/L 06/20/2018 4:37 AM CDT [facility] Calcium 9.6 8.4 - 10.2 mg/dL 06/20/2018 4:37 AM CDT [facility] Anion Gap 11 8 - 16 mmol/L 06/20/2018 4:37 AM CDT [facility] BUN 17 9.8 - 20.1 mg/dL 06/20/2018 4:37 AM CDT [facility] Creatinine 0.78 0.55 - 1.02 mg/dL 06/20/2018 4:37 AM CDT [facility] eGFR by MDRD >60 >60 mL/min/1.7 3m2 06/20/2018 4:37 AM CDT [facility] eGFR by MDRD >60 >60 mL/min/1.7 3m2 06/20/2018 4:37 AM CDT [facility] Blood BLOOD SPECIMEN / Unknown Venipuncture / Unknown 06/20/2018 3:15 AM CDT 06/20/2018 4:04 AM CDT Narrative [facility] - 06/20/2018 4:37 AM CDT Attention clinician: BUN Reference Range has changed. Jasson Carrasco MD LAB - CHEMISTRY GILBERTO COULTER [facility] [address] [place] [address] * GROSS + MICRO EXAM (STL) (06/19/2018 2:00 PM CDT) Case Report Surgical Pathology Report ? Case: [id number] ? Authorizing Provider: ??Jasson Carrasco MD ? Collected: ? 06/19/2018 02:00 PM ? Ordering Location: ? [facility] ? Received: ?06/19/2018 03:24 PM ? Pathologist: ? Danielle Chavarria MD ? Specimen: ?Liver Needle Biopsy ? 06/24/2018 9:09 AM CDT [facility] Final Diagnosis Liver, core biopsy: -- Mild steatosis -- See description 06/24/2018 9:09 AM CDT [facility] Gross Description Received in formalin in a single container labeled, Tiffanie Ruiz, liver needle biopsy, consists of a 1.1 cm baptiste core of tissue. The specimen is placed in a filter bag, stained with hematoxylin and entirely submitted in cassette A1. CH/na 06/24/2018 9:09 AM [facility] Microscopic Description Sections show mild macrovesicular steatosis (grade 1, scale 0-3). Seven portal tracts are present and show focal mild inflammation consisting of small, mature lymphocytes. Ballooned hepatocytes are not identified to suggest active steatohepatitis. No prominent Antonia hyaline is seen. The lobules show few scattered neutrophils predominantly confined to the sinusoids. Trichrome shows no significant periportal, sinusoidal, or pericellular fibrosis. Overall, the findings support a diagnosis of mild steatosis without significant fibrosis. 06/24/2018 9:09 AM T [facility] Disclaimer All histochemical and/or immunohistochemical results are interpreted with controls that demonstrate appropriate staining reactions before reporting results. Note on use of immunocytochemistry reagents: This test was developed and its performance characteristic determined by [facility], Department of Laboratory Medicine. It has not been cleared or approved by the U.S. Food and Drug Administration (FDA). The FDA has determined that such clearance or approval is not necessary. The test is used for clinical purpose. It should not be regarded as investigational or for research. This laboratory is certified to perform high complexity testing. 06/24/2018 9:09 AM T [facility] Embedded Images 06/24/2018 9:09 AM T [facility] Pathology/Cytolo gy NEEDLE BIOPSY OF LIVER / Unknown 06/19/2018 2:00 PM CDT 06/19/2018 3:24 PM CDT Jasson Carrasco MD LAB - PATHOLOGY/CYTO LOGY ORDERABLES [facility] [address] [place] [address] * (ABNORMAL) POTASSIUM BLOOD (06/19/2018 9:02 AM CDT) Potassium 3.3(L) 3.5 - 5.1 mmol/L 06/19/2018 9:49 AM CDT [facility] Blood BLOOD SPECIMEN / Unknown Venipuncture / Unknown 06/19/2018 9:02 AM CDT 06/19/2018 9:39 AM CDT Diana Felipe DO LAB - CHEMISTRY GILBERTO COULTER [facility] [address] [place] [address] * NM HEPATOBILIARY W CCK EF (04/09/2018 2:08 PM AIRCRAFT INSTRUMENT MECHANIC) Anatomical Region Laterality Modality Abdomen Nuclear Medicine 04/09/2018 2:09 PM AIRCRAFT INSTRUMENT MECHANIC Impressions 04/09/2018 2:10 PM AIRCRAFT INSTRUMENT MECHANIC 1. Initial phase of nuclear medicine HIDA scan is within normal limits, demonstrating patency of the cystic and common bile ducts. 2. Gallbladder ejection fraction is normal. Reading Radiologist: Awilda Gonzalez MD on 04/09/2018 at 2:10 PM Narrative 04/09/2018 2:10 PM AIRCRAFT INSTRUMENT MECHANIC NM Hepatobiliary Scan (HIDA) Indication: Abdominal pain. Technique: After intravenous administration of 5.2 mCi labeled Mebrofenin, multiple images of the right upper quadrant were obtained. 2.6 mcg CCK was administered by slow IV push and gallbladder ejection fraction calculated by region of interest. Findings: Initial phase of the study is normal, demonstrating a good extraction of radiopharmaceutical by the liver. The gallbladder is visualized by 25minutes and the common bile duct is visualized by 15 minutes. Small bowel can be visualized by 25 minutes. After administration of CCK, the maximum gallbladder ejection fraction is calculated at 90.03% at 29 minutes. This is well above the normal gallbladder ejection fraction of greater than or equal to 35%. Procedure Note Awilda Gonzalez MD - 04/09/2018 NM Hepatobiliary Scan (HIDA) Indication: Abdominal pain. Technique: After intravenous administration of 5.2 mCi labeled Mebrofenin, multiple images of the right upper quadrant were obtained. 2.6 mcg CCK was administered by slow IV push and gallbladder ejection fraction calculated by region of interest. Findings: Initial phase of the study is normal, demonstrating a good extraction of radiopharmaceutical by the liver. The gallbladder is visualized by 25minutes and the common bile duct is visualized by 15 minutes. Small bowel can be visualized by 25 minutes. After administration of CCK, the maximum gallbladder ejection fraction is calculated at 90.03% at 29 minutes. This is well above the normal gallbladder ejection fraction of greater than or equal to 35%. IMPRESSION 1. Initial phase of nuclear medicine HIDA scan is within normal limits, demonstrating patency of the cystic and common bile ducts. 2. Gallbladder ejection fraction is normal. Reading Radiologist: Awilda Gonzalez MD on 04/09/2018 at 2:10 PM Ivette Shields [employer] SIZE PAINTER-PASTRY MIXER NM ORDERA BLES * LAB (03/21/2018) Jasson Carrasco MD SCANNING ONLY * US ABDOMEN LIMITED (03/19/2018 10:29 AM AIRCRAFT INSTRUMENT MECHANIC) Anatomical Region Laterality Modality Abdomen Ultrasound 03/19/2018 11:0 9 AM AIRCRAFT INSTRUMENT MECHANIC Impressions 03/19/2018 11:10 AM AIRCRAFT INSTRUMENT MECHANIC Hepatic steatosis otherwise unremarkable. Reading Radiologist: Kathi Maloney MD on 03/19/2018 at 11:10 AM Narrative 03/19/2018 11:10 AM AIRCRAFT INSTRUMENT MECHANIC RIGHT UPPER QUADRANT ULTRASOUND INDICATION:Nausea vomiting abdominal pain TECHNIQUE: Grayscale images of the right upper quadrant were performed. There is no evidence of cholelithiasis. The liver is increased in echogenicity as can be seen with steatosis. Common bile duct measures 6 mm ?? . The visualized portions of the pancreas are unremarkable. The right kidney is of normal size, echogenicity and renal cortical thickness and measures 10.4cm x 5.0 ?cm x 5.9 ?cm. Procedure Note Kathi Maloney MD - 03/19/2018 RIGHT UPPER QUADRANT ULTRASOUND INDICATION:Nausea vomiting abdominal pain TECHNIQUE: Grayscale images of the right upper quadrant were performed. There is no evidence of cholelithiasis. The liver is increased in echogenicity as can be seen with steatosis. Common bile duct measures 6 mm . The visualized portions of the pancreas are unremarkable. The right kidney is of normal size, echogenicity and renal cortical thickness and measures 10.4cm x 5.0 cm x 5.9 cm. IMPRESSION Hepatic steatosis otherwise unremarkable. Reading Radiologist: Kathi Maloney MD on 03/19/2018 at 11:10 AM Jasson Carrasco MD US ORDERABLES * ENDOTRACHEAL TUBE NOTE (12/25/2017 6:02 AM AIRCRAFT INSTRUMENT MECHANIC) Narrative Diana Felipe, DO - 12/25/2017 6:02 AM AIRCRAFT INSTRUMENT MECHANIC Zahira Newell, SIZE PAINTER-CONSERVATOR ARTIFACTS ? 12/24/2017 ??9:09 AM Endotracheal Tube Placement: ? Patient Location: OR. Procedure: intubation (31478). Procedure Section: ?? Sedation: under general anesthesia. Indications for Airway Management: ??anesthesia Pretreatment: 100% O2. Induction: modified rapid sequence Patient Position: ??ramp/troop pillow Mask Ventilation: not attempted. Intubation Adjuncts: Eschmann introducer Device: endotracheal tube Placement: oral Tube type: cuff - inflated Tube Size (FR): 7 Depth of Insertion (CM): 21 Measured From: lips Cuff volume (mL): ??7 Cuff Inflated With: air Number of Attempts: 1. Ventilation between attempts: No. Placement Verified By: direct visualization, bilateral breath sounds, CO2 monitor and chest auscultation Tube secured with: ??adhesive tape. Difficult Airway? ??Yes. ?Technique: video laryngoscope ? Reason: anterior larynx, neck immobility and obesity (cspine fusion very limited ROM neck) Staff Section ?? Anesthesia Provider: ZAHIRA NEWELL, Performed the procedure Diana Felipe DO GENERAL ANESTHESIA O RDERABLES * EKG 12-LEAD (12/24/2017 8:20 AM AIRCRAFT INSTRUMENT MECHANIC) Only the most recent of2 resultswithin the time period is included. Ventricular Rate 71 BPM [facility] Atrial Rate 78 BPM [facility] QRS Duration ms 74 ms [facility] Q-T Interval ms 378 ms [facility] QTC Calculation (Bezet) 410 ms [facility] Calculated P [place] 0 degrees [facility] Calculated R [place] 15 degrees [facility] Calculated T [place] 11 degrees [facility] Interpretation EKG Sinus rhythm Abnormal ECG When compared with ECG of 29-NOV-2015 12:51, No significant change was found Confirmed by PENELOPE CLARK MD ([id number]) on 12/24/2017 3:17:11 PM [facility] 12/24/2017 8:20 AM AIRCRAFT INSTRUMENT MECHANIC 12/24/2017 3:17 PM AIRCRAFT INSTRUMENT MECHANIC Diana Felipe DO ECG ORDERABLES [facility] * FL FLUORO UPPER GI TRACT + KUB (09/25/2017 9:48 AM CDT) Only the most recent of3 resultswithin the time period is included. Anatomical Region Laterality Modality Abdomen Radiographic Caroline ging 09/25/2017 12:0 5 PM CDT Narrative 09/25/2017 12:07 PM CDT Upper GI series Indication for examination: Epigastric and abdominal pain. Previous gastroesophageal band placement. This procedure was performed using water-soluble contrast. [employer] film shows a laparoscopic gastroesophageal band in place. Examination esophagus reveals prompt passage of contrast from the esophagus, through the band and into the stomach. There is a normal esophageal mucosal pattern without evidence of esophagitis, focal ulcer, stricture or diverticulum. Stomach is normal in size and appearance. No ulcer or inflammatory change is identified. No reflux or hernia was identified during the study. Duodenal bulb and sweep are intact without evidence of ulcer or inflammatory change. Fluoroscopy time 2 minutes 31 seconds. 11 radiographic images were obtained. CONCLUSION: Gastroesophageal band in place. No esophageal obstruction, stasis or reflux identified. No ulcer or inflammatory change identified. Reading Radiologist: Brett Sam MD on 09/25/2017 at 12:07 PM Procedure Note Brett Sam MD - 09/25/2017 Upper GI series Indication for examination: Epigastric and abdominal pain. Previous gastroesophageal band placement. This procedure was performed using water-soluble contrast. [employer] film shows a laparoscopic gastroesophageal band in place. Examination esophagus reveals prompt passage of contrast from the esophagus, through the band and into the stomach. There is a normal esophageal mucosal pattern without evidence of esophagitis, focal ulcer, stricture or diverticulum. Stomach is normal in size and appearance. No ulcer or inflammatory change is identified. No reflux or hernia was identified during the study. Duodenal bulb and sweep are intact without evidence of ulcer or inflammatory change. Fluoroscopy time 2 minutes 31 seconds. 11 radiographic images were obtained. CONCLUSION: Gastroesophageal band in place. No esophageal obstruction, stasis or reflux identified. No ulcer or inflammatory change identified. Reading Radiologist: Brett Sam MD on 09/25/2017 at 12:07 PM Steph Mar SIZE PAINTER-PASTRY MIXER FLUOROSCOPY ORDERABLES * FL LAP BAND ADJUST VIA PORT (03/30/2016 10:50 AM AIRCRAFT INSTRUMENT MECHANIC) Only the most recent of20 resultswithin the time period is included. Anatomical Region Laterality Modality Radiographic Caroline ging 03/30/2016 11:3 0 AM AIRCRAFT INSTRUMENT MECHANIC Narrative 03/30/2016 11:31 AM AIRCRAFT INSTRUMENT MECHANIC FLUOROSCOPY: Less than 1 hour ??of fluoroscopy was utilized during a Lap-Band adjustment.3 cc saline was added. ??No radiologist was present. 0.9 minutes fluoroscopy were provided Procedure Note Awilda Gonzalez MD - 03/30/2016 FLUOROSCOPY: Less than 1 hour of fluoroscopy was utilized during a Lap-Band adjustment.3 cc saline was added. No radiologist was present. 0.9 minutes fluoroscopy were provided Jona Dumont MD FLUOROSCOPY ORDERABL ES * EGD (02/09/2016 9:45 AM AIRCRAFT INSTRUMENT MECHANIC) Narrative [facility] - 02/09/2016 9:45 AM AIRCRAFT INSTRUMENT MECHANIC Jona Dumont MD ? 02/09/2016 ??9:45 AM [facility] Operative Report OPERATIVE REPORT PATIENT:Tiffanie Ruiz MR#: ADMIT DATE: 02/09/2016 ??8:24 AM ACCT#: DATE OF SURGERY: 02/09/2016 : 1960 PHYSICIAN: Jona Dumont MD 56 yrs Body mass index is 44.29 kg/(m^2). PREOPERATIVE DIAGNOSES: dysphagia POSTOPERATIVE DIAGNOSES: SAME Hiatal hernia Surgeon: Jona Dumont MD NEWS VIDEO EDITOR: none PROCEDURES PERFORMED: Esophagogastroduodenoscopy ANESTHESIA: MAC by anesthesia department PROCEDURE: The patient was brought to the GI suite and placed in standard position. MAC anesthesia was administered. The gastroscope was inserted into the oral pharynx and passed through the upper esophagus then advanced to the GE junction and into the stomach pouch. The Z line was identified at 35 cm. There was a sliding hiatal hernia present. The scope was further advanced through the pylorus into the second portion of the duodenum. The scope was then brought back into the stomach which was thoroughly inspected showing mild gastritis. The scope was then retroflexed. The band was visualized. There was no erosion present. The scope was then brought back to the level of the GE junction above the band. The GE junction also was examined. There was no evidence of inflammatory changes. The distal esophagus showed no dilation present. The stomach above the band was inspected. There was no slip/prolapse present. There were 3 cm of stomach above the uppermost aspect of the band. The gastroscope was withdrawn examining the esophagus during removal. The patient tolerated the procedure well and was taken to recovery room in stable condition. COMPLICATIONS: None. Plan: f/u for band adjustment in radiology in february Jona Dumont MD ?? Jona Dumont MD GI PROCEDURE ORDERAB LES Performing Organization Address [facility] de Phone Number [facility] [place] [address] * CARDIAC EKG ORDER (11/30/2015 9:57 PM CDT) Narrative 11/30/2015 9:57 PM CDT Ordered by an unspecified provider. Scanned Document CARDIAC SERVICES ORD ERABLES * (ABNORMAL) URINALYSIS MICROSCOPIC ONLY W/REFLEX CULTURE (11/29/2015 6:03 PM CDT) Epithelial Cell UA 5-10(A) 0-2, 2-5 # /hpf 11/29/2015 6:59 PM CDT [facility] Hyaline Casts 2-5(A) 0 - 2 # /lpf 11/29/2015 6:59 PM CDT [facility] Urine URINE SPECIMEN OBTAINED BY CLEAN CATCH PROCEDURE / Unknown 11/29/2015 6:03 PM CDT 11/29/2015 6:06 PM CDT Laura Lakhani MD LAB - URINALYSIS ORD ERABLES Performing Organization Address [facility] Co de Phone Number [facility] [address] [place] [address] * (ABNORMAL) URINALYSIS ROUTINE W/REFLEX TO CULTURE (11/29/2015 6:03 PM CDT) Color UA Yellow Straw, Yellow, Dark Yellow 11/29/2015 6:21 PM CDT [facility] Clarity UA Cloudy 11/29/2015 6:21 PM CDT [facility] Specific Donaldson UA 1.019 1.005 - 1.030 11/29/2015 6:21 PM CDT [facility] pH UA 5.0 5.0 - 8.0 pH 11/29/2015 6:21 PM CDT [facility] Protein UA Negative Negative 11/29/2015 6:21 PM CDT [facility] Blood UA Negative Negative 11/29/2015 6:21 PM T [facility] Leukocyte UA 2+(A) Negative 11/29/2015 6:21 PM CDT [facility] Nitrite UA Negative Negative 11/29/2015 6:21 PM CDT [facility] Glucose UA Negative Negative 11/29/2015 6:21 PM T [facility] Ketone UA 2+(A) Negative 11/29/2015 6:21 PM CDT [facility] Bilirubin UA Negative Negative 11/29/2015 6:21 PM CDT [facility] Urobilinogen UA 0.2 0.1 - 1.0 EU/dL 11/29/2015 6:21 PM T [facility] WBC UA Auto 10-20(A) 0-2, 2-5 # /hpf 11/29/2015 6:21 PM T [facility] RBC UA Auto 2-5 0-2, 2-5 # /hpf 11/29/2015 6:21 PM T [facility] Bacteria UA Auto 1+(A) None seen 11/29/19 16 6:21 PM [facility] Hyaline Casts UA Auto Reflex to manual(A) 0 - 2 #/lpf 11/29/2015 6:21 PM [facility] Reflex Status Culture to follow 11/29/2015 6:21 PM [facility] Urine URINE SPECIMEN OBTAINED BY CLEAN CATCH PROCEDURE / Unknown 11/29/2015 6:03 PM CDT 11/29/2015 6:06 PM T Laura Lakhani MD LAB - URINALYSIS ORD ERABLES Performing Organization Address [facility] Co de Phone Number [facility] [address] [place] [address] * CULTURE URINE (11/29/2015 6:03 PM CDT) Culture <10,000 CFU/mL urogenital nayla RAVI 12/01/2015 1:47 PM CDT [facility] Urine URINE SPECIMEN OBTAINED BY CLEAN CATCH PROCEDURE / Unknown 11/29/2015 6:03 PM CDT 11/29/2015 6:06 PM CDT Laura Lakhani MD LAB - MICROBIOLOGY O RDERABLES Performing Organization Address [facility] Co de Phone Number [facility] [address] [place] [address], [facility] [phone] * TROPONIN I (11/29/2015 4:43 PM CDT) Only the most recent of2 resultswithin the time period is included. Troponin I <0.015 0.000 - 0.049 ng/mL 11/29/2015 5:14 PM CDT [facility] Blood BLOOD SPECIMEN / Unknown 11/29/2015 4:43 PM CDT 11/29/2015 4:53 PM CDT Narrative [facility] - 11/29/2015 5:14 PM CDT Note: Diagnosis of myocardial infarction requires symptoms of ischemia or EKG changes of ischemia and Troponin I >99th of normal (0.05 ng/mL). Troponin should be drawn on initial assessment and 3-6 hours later as clinically indicated. Any condition resulting in myocardial cell damage can increase cardiac troponin levels. In addition to myocardial infarction, these include but are not limited to congestive heart failure (CHF), arrhythmia, myocarditis, and non-cardiac related causes such as pulmonary embolism, renal failure and sepsis. Laura Lakhani MD LAB - CHEMISTRY ORDE RABLES Performing Organization Address [facility] Co de Phone Number [facility] [address] [place] [address] * XR CHEST PA AND LATERAL (11/29/2015 3:14 PM CDT) Anatomical Region Laterality Modality Chest Radiographic Caroline ging 11/29/2015 3:16 PM CDT Impressions 11/29/2015 3:16 PM CDT No acute cardiopulmonary disease. Narrative 11/29/2015 3:16 PM CDT Two views chest Indication: Chest pain Comparison: Chest x-ray 12/18/2007 Findings: The lungs are clear. Heart size normal. No evidence of pneumothorax or pleural effusion. Procedure Note Liang Owens MD - 11/29/2015 Two views chest Indication: Chest pain Comparison: Chest x-ray 12/18/2007 Findings: The lungs are clear. Heart size normal. No evidence of pneumothorax or pleural effusion. IMPRESSION No acute cardiopulmonary disease. Laura Lakhani MD DIAGNOSTIC IMAGING O ALEXIAERACINDI * LIPASE BLOOD (11/29/2015 1:38 PM CDT) Lipase 168 10 - 220 U/L 11/29/2015 4:22 PM CDT [facility] Blood BLOOD SPECIMEN / Unknown 11/29/2015 1:38 PM CDT 11/29/2015 4:13 PM CDT Laura Lakhani MD LAB - CHEMISTRY GILBERTO COULTER [facility] [address] [place] [address] * PATHOLOGY/GENETICS HISTORICAL-ONBASE (09/09/2015) Only the most recent of5 resultswithin the time period is included. 09/09/2015 Historical Provider LAB - CHEMISTRY Conchis PINA [facility] [address] * EGD (04/20/2010) Jasson Carrasco MD GI PROCEDURE ORDERAB LES * PATHOLOGY REPORTS - HPF HISTORICAL (12/20/2009 11:03 PM AIRCRAFT INSTRUMENT MECHANIC) 12/20/2009 11:0 3 PM AIRCRAFT INSTRUMENT MECHANIC Narrative [facility] - 12/20/2009 11:03 PM AIRCRAFT INSTRUMENT MECHANIC Soham Hutton MD LAB - PATH OLOGY/CYTOLOGY ORDERABLES [facility] * (ABNORMAL) LIPID PROFILE (01/14/2009 1:20 PM AIRCRAFT INSTRUMENT MECHANIC) Only the most recent of2 resultswithin the time period is included. Cholesterol 241(H) 120.0 - 200.0 mg/dl [facility] Triglycerides 101 0.0 - 250.0 mg/dl [facility] HDL Cholesterol 68 >40 mg/dl [facility] LDL Calculated 152.8 mg/dl [facility] Chol HDL Ratio 3.5 [facility] Comment Lipid [facility] Comment: Risk Classification ? HDL CHOL ?? LDL CHOL ?TOTAL CHOL According to NCEP ? (mg/dl) ?(mg/dL) ?(mg/dl) ? Desirable ? >40 ?<130 ? < 200 ? Borderline/High ?- ?130-159 ?200-239 ? High ? - ? >159 ? > 239 The total cholesterol to HDL cholesterol ratio may be used to predict risk for coronary heart disease in untreated patients according to data reported from the [place] Study by Tanesha Huffman M.D. ??The predictive value in patients over 60 years of age is uncertain. ? Risk ?TOTAL CHOL/HDL RATIO ? MEN ?WOMEN ? 1/2 Average ? 3.43 ? 3.27 ? Average ? 4.97 ? 4.44 ? 2X Average ?9.55 ? 7.05 ? 3X Average ? 23.39 ?11.04 In Coronary Artery Disease patients, in whom nonpharmacological therapy has failed, the AHA recommends that drug therapy should be prescribed to lower LDL cholesterol to <100mg/dL. ??Drug therapy may be instituted in patients with HDL <35mg/dL. ??The reported LDL is a calculated result. ??For a more precise measurement, a direct LDL test is available, as necessary. BLOOD SPECIMEN / Unknown 01/14/2009 1:20 PM AIRCRAFT INSTRUMENT MECHANIC 01/14/2009 1:48 PM AIRCRAFT INSTRUMENT MECHANIC Scott Claros MD LAB - CHEMISTRY O YOVANI Performing Organization Address [facility] de Phone Number [facility] [address] [place] [address] * HEMOGLOBIN A1C (07/23/2008 11:32 AM CDT) Hemoglobin A1c 5.7 3.9 - 6.1 % [facility] Estimated Average Glucose 116.9 mg/dl [facility] BLOOD SPECIMEN / Unknown 07/23/2008 11:32 AM CDT Narrative [facility] - 07/23/2008 9:23 PM CDT [phone] Resulting Agency Comment Performed By [facility] ? [address] [facility] ? [place] [address] Scott Claros MD LAB - CHEMISTRY O YOVANI Performing Organization Address [facility] de Phone Number [facility] [address] [place] [address] * TSH (07/23/2008 11:32 AM CDT) TSH 0.810 0.35 - 5.50 uIU/ml [facility] BLOOD SPECIMEN / Unknown 07/23/2008 11:32 AM CDT Narrative [facility] - 07/23/2008 9:22 PM CDT [phone] Resulting Agency Comment Performed By [facility] ? [address] [place] [address] ? [place] [address] Scott Claros MD LAB - CHEMISTRY O YOVANI Performing Organization Address [facility] de Phone Number [facility] [address] [place] [address] * IRON + TRANSFERRIN PANEL (07/23/2008 11:32 AM CDT) Iron 141.5 50 - 170 ug/dl [facility] Transferrin 257.0 250 - 380 mg/dl [facility] TIBC Calculated 321 250 - 450 mg/dl [facility] Iron Saturation % 44 20 - 55 % [facility] BLOOD SPECIMEN / Unknown 07/23/2008 11:32 AM CDT Narrative Resulting Agency Comment Performed By [facility] ? [address] [place] [address] ? [place] [address] Scott Claros MD LAB - CHEMISTRY O YOVANI Performing Organization Address [facility] de Phone Number [facility] [address] [place] [address] * HCG URINE QUALITATIVE - POINT OF CARE (01/30/2008 3:00 PM AIRCRAFT INSTRUMENT MECHANIC) Only the most recent of3 resultswithin the time period is included. HCG Qual Urine Not Detected Not Detected [facility] Comment , Urine: Test performed by [facility] Staff [facility] URINE / Unknown 01/30/2008 3 :00 PM AIRCRAFT INSTRUMENT MECHANIC Rohith Ortiz DO LAB - POINT OF CAR E ORDERABLES Performing Organization Address [facility] de Phone Number [facility] * CULTURE BLOOD (01/30/2008 1:40 PM AIRCRAFT INSTRUMENT MECHANIC) Only the most recent of2 resultswithin the time period is included. Result [facility] Comment: Final CULTURE ??No Growth BLOOD SPECIMEN / Unknown 01/30/2008 1:40 PM AIRCRAFT INSTRUMENT MECHANIC 01/30/2008 1:51 PM AIRCRAFT INSTRUMENT MECHANIC Narrative Resulting Agency Comment Performed By [facility] ? [address] ? [place] [address] Stephanie Candelaria MD LAB - MICROBIOLO GY ORDERABLES Performing Organization Address [facility] Co de Phone Number [facility] * CULTURE WOUND (01/30/2008 12:54 PM AIRCRAFT INSTRUMENT MECHANIC) Result [facility] Comment: Final GRAM STAIN Light rbc's Rare WBC's No organisms seen ?? CULTURE ENTEROCOCCI ??Light ??Ampicillin ?RAVI ?Sensitive ?0.5 ?? ug/ml ??Vancomycin ?RAVI ?Sensitive ?<=0.5 ?? ug/ml DIPHTHEROIDS ??Light ??two strains ??Probable skin nayla ? contaminant. ABDOMEN AND PELVIS / Unknown 01/30/2008 12:54 PM AIRCRAFT INSTRUMENT MECHANIC 01/30/2008 1:13 PM AIRCRAFT INSTRUMENT MECHANIC Narrative Resulting Agency Comment Performed By [facility] ? [address] ? [place] [address] Stephanie Candelaria MD LAB - MICROBIOLO GY ORDERABLES Performing Organization Address City/[facility] Co de Phone Number [facility] * TYPE + SCREEN PANEL (01/15/2008 8:10 AM AIRCRAFT INSTRUMENT MECHANIC) ABO Rh AB Pos [facility] Antibody Screen Neg [facility] BLOOD SPECIMEN / Unknown 01/15/2008 8:10 AM AIRCRAFT INSTRUMENT MECHANIC Tulio Martinez MD LAB - BLOOD BANK OR DERABLES Performing Organization Address City/[facility]/ZIP Co de Phone Number [facility] Care Teams Remote Recruiter Relationship Specialty Start Date End Date Jona Bravo MD [address] [place] [id number] PCP - General Internal Medicine 10/16/22
--- OUTSIDE RECORDS SUMMARY | 2024-03-03 13:57 | XMS_ITS | Encounter Summary ---
Author Organization [facility] Address [address] [place] [address] Care Team Providers Care Application Packaging Specialist Name Role Phone Jona Bravo MD Primary Care Provider [phone] Reason for Visit * Reason Comments Question Encounter Details Date Type Department Care Team ([facility] st Contact Info) Description 03/23/2023 Telephone [facility] Primary Care [address] [place] [address] Jona Bravo MD [address] [facility] [address] [place] [address] Question Social History Tobacco Use Types Packs/Day Years [...] often do you attend chur ch or mormonism services? 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 Topic: Patient or Caregiver Communication Request >> Mar 23, 2023 12:21 PM David Monte wrote: Patient or Caregiver calling to update PCP team on status after a recent visit Caller: Eda Patient/Caregiver Callback Number: [phone] Call Notes: Message: Eda is calling to check the status of fax requesting brace for lower back and knees of patient. Informed Eda that we put the request on Dr. Bravo's desk. She wanted io inform they need the request back within 3-5 days. Please Advise UTER GRAPHICS ILLUSTRATOR documented in this encounter Plan of Treatment Upcoming Encounters Date Type Department Care Team (Late st Contact Info) Description 04/23/2024 1:20 PM CDT Office Visit [facility] [address] [place] [id number] Jona Bravo MD [address] [place] [address] [address] [place] [address] 08/25/2024 10:40 AM CDT Office Visit [address] [place] [address] Jona Bravo MD [address] [place] [address] [place] [address] documented as of this encounter Visit Diagnoses Not on filedocumented in this encounter Care Teams Application Packaging Specialist Relationship Specialty Start Date End Date Jona Bravo MD PCP - General Internal Medicine 11/25/15 documented as of this encounter
--- OUTSIDE RECORDS SUMMARY | 2024-03-03 13:57 | XMS_ITS ---
Author Organization [facility] Address [address] [facility] [address] [place] [address] Care Team Providers Care Scrap Picker Name Role Phone Shelly HALE, Jona Primary Care Provider Unavaila Mary Trent Unavailable [phone] REASON FOR VISIT yd,f/u,cc Encounters Encounter Location Date Provider Diagnosis [facility] [address] [facility] [facility] [address] [place] [address] 02/14/2023 Mary Saul Plan Of Treatment No Information Progress Notes * Tiffanie RUIZ ADOB: (64 yo F)Acc No.[id number]:02/14/2023 Progress Notes Patient:?Tiffanie RUIZ Provider:?MARY SAUL MD :1960???Age:63 Y???Sex:Female D ate:02/14/2023 [facility] [place] Pcp:Jona Bravo MD Subjective: * Chief Complaints: * ???1. Yd,f/u,cc. * Medical History:? Objective: * Vitals:? Assessment: Plan: * Treatment: * Billing Information: * Visit Code:? * Procedure Codes:? * Electronic signature of Mary Saul MD on 03/03/2024 at 01:57 PM MEAT BUTCHER Sign off status: Pending * Provider:?MAYR SAUL MD Date:?02/14/2023 Generated for Adalbertoi nicolasa/Hernando/eTransmitting on:?03/03/2024 01:57 PM MEAT BUTCHER
--- OUTSIDE RECORDS SUMMARY | 2024-03-03 13:57 | XMS_ITS | Clinical Summary ---
Author Organization [facility] Address [address] [place] [address] Care Team Providers Care Over The Horizon Targeting Supervisor Name Role Phone Jona Bravo MD Primary Care Provider [phone] Source Comments [facility],non-owned Affiliates and Associated Physician Practices is amultiple site organization consisting of ambulatory clinics and hospital sitesin [place], [place]. This disclosure is being madepursuant to the Care Everywhere program and may not contain all information available regarding this patient. Last updated 17.[facility] Allergies Active Allergy Reactions Criticality Noted Date [...] Units/L by mouth once daily Active Biotin 33855 MCG TBDP Take 1 tablet by mouth [...] mouth once daily 04/21/2021 Active nystatin (NYSTOP) 609624 UNIT/GM powder APPLY POWDER TOPICALLY TO AFFECTED [...] 01/15/08: Lap banding by Dr. Claros at [facility] Had a port leak with subsequent [...] VACCINE 12/15/2015,09/16/2014,10/07/19 14 Pneumococcal Pcv13 Conj 09/16/2014 Family History Medical History Relation Name Comments Cancer Mother Diabetes Sister 1 Hypertension Sister 2 Relation Name Status Comments Mother Sister 1 Sister 2 Social History Tobacco Use Types Packs/Day Years [...] Mass Index 34.37 06/21/2023 12:44 PM CDT Plan of Treatment Upcoming Encounters Date Type Department Care Team (Late st Contact Info) Description 04/10/2024 8:30 AM TEAM DRIVER Office Visit [facility] [address] [place] [phone] Soham Hutton MD [address] [place] [address] Health Maintenance Due Date Last Done Comments COLOGJENNY (AGES 45-75) - COLON CA SCREENING 1959 CT COLONOGRAPHY - COLON CA SCREENING 1959 FIT - COLON CA SCREENING 1959 FLEX SIG - COLON CA SCREENING 1959 MEDICARE AWV ? 12 MONTHS 1959 PAP SMEAR 1959 HIV SCREENING 1974 HEPATITIS C SCREENING 01/30/1977 DTAP/TDAP/TD VACCINES (1 - Tdap) 1978 ZOSTER VACCINE (1 of 2) 2009 PNEUMOCOCCAL VACCINE 50+ (2 of 2 - PPSV23) 11/11/2014 09/16/2014 DIABETES RETINOPATHY SCREENING 03/21/2018 DIABETES-FOOT EXAM WITH MONOFILAMENT 03/21/2018 Respiratory Syncytial Virus (RSV) Vaccine Pt: or over 60 yrs (1 - Risk 60-74 years 1-dose series) 2019 DIABETES-HGB A1C 04/09/2022 10/10/2021, , 04/25/2018, Additional history exists DIABETES-SERUM CREATININE 06/06/20232022, 10/10/2021, 10/10/2021, Additional history exists COVID-19 VACCINE ( season) 2023 01/08/2023, 10/13/2021, 12/12/2020, Additional history exists INFLUENZA VACCINE (#1) 2023 , 11/14/2019, 10/19/2019, Additional history exists DEPRESSION SCREENING 02/06/2024 DIABETES - URINE PROTEIN SCREENING 02/06/2024 MAMMOGRAM 09/08/2024 09/08/2022, 08/0 05/2022, 07/08/2021, Additional history exists COLON MONITORING 08/03/2025 08/03/2020, 08/03/2020 Colorectal Cancer Screening 08/03/2025 COLONOSCOPY - COLON CA SCREENING 08/03/2030 08/03/2020, 08/03/2020 BONE DENSITY TESTING Completed 09/08/2022, 09/20/2020, 09/20/2020, Additional history exists HEPATITIS B VACCINE Aged Out No longe r eligible based on patient's age to complete this topic HIB VACCINE Aged Out No longer eligi ble based on patient's age to complete this topic HPV VACCINE Aged Out No longer eligi ble based on patient's age to complete this topic MENINGOCOCCAL (Group B) VACCINE Aged Out No longer eligible based on patient's age to complete this topic MENINGOCOCCAL VACCINE Aged Out No mary maikel eligible based on patient's age to complete this topic Procedures Procedure Name Priority Date/Time Associated Diagnosis [...] 29 U/L [facility] Comment: Test Performed at: [employer] [facility] [address] ??[id number] ARACELY DANIEL MD 06/05/2022 10:4 9 AM CDT 06/05/2022 10:50 AM CDT [employer] [facility] [facility] - [facility] ORDERABLES [facility] [address] [address] * ENDOSCOPY, COLON, SCREENING (08/03/2020 9:10 AM [...] Procedure Code(s): ? --- Professional --- ? 26367, Colonoscopy, flexible; with biopsy, single or multiple Diagnosis Code(s): ?--- Professional --- ?Z86.010, Personal history of colonic polyps ?K63.5, Polyp of colon ?K57.30, Diverticulosis of large intestine without ?perforation or abscess without bleeding CPT copyright 2019 [employer]. All rights reserved. The codes documented in this report are preliminary and upon professional fee coder review may be revised to meet current compliance requirements. Soham Farley MD 08/03/2020 10:38:53 AM This report has been signed electronically. Note Initiated On: 08/03/2020 9:10 AM Number of Addenda: 0 ? [facility] ? [address] [place] [address] [facility] [employer] 08/03/2020 9:10 AM CDT Soham Hutton MD GI PROCEDU RE ORDERABLES [facility] [employer] * HEMOGLOBIN A1C (07/23/2008 11:32 AM CDT) Hemoglobin A1c 5.7 3.9 - 6.1 % [facility] Estimated Average Glucose 116.9 mg/dl [facility] BLOOD SPECIMEN / Unknown 07/23/2008 11:32 AM CDT Narrative [facility] - 07/23/2008 9:23 PM CDT [id number] Resulting Agency Comment Performed By [facility] ? [address] ? [place] [address] Scott Claros MD LAB - CHEMISTRY O RDERABLES [facility] [address] [place] [address] from Last 3 Months or Most Recently Relevant to Health Maintenance Advance Directives * Full Code (Latest Code Status on File) Date Activated Date Inactivated Comments 06/19/2018 5:17 PM 06/20/2018 8:12 PM * Full Code Date Activated Date Inactivated Comments 12/24/2017 11:20 AM 12/25/2017 12:40 PM Care Teams Over The Horizon Targeting Supervisor Relationship Specialty Start Date End Date Jona Bravo MD [address] [place] [phone] PCP - General Internal Medicine 10/16/22
--- OUTSIDE RECORDS SUMMARY | 2024-03-03 13:57 | XMS_ITS | Encounter Summary ---
Author Organization [facility] Address [address] [place] [address] Care Team Providers Care Communications Equipment Supervisor Name Role Phone Jona Bravo MD Primary Care Provider Reason for Visit * Reason Comments Question Encounter Details Date Type Department Care Team ([facility] st Contact Info) Description 04/23/2023 Telephone [facility] Primary Care [address] [place] [address] Jona Bravo MD [address] [place] [address] Question Social History Tobacco Use [...] attend chur ch or anabaptism services? 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 Topic: Patient or Caregiver Communication Request >> Apr 23, 2023 1:32 PM Adelina Harper wrote: Patient or Caregiver requesting advice Caller: Tiffanie Ruiz Patient/Caregiver Callback Number: [phone] (home) Call Notes: Patient is calling she is needing an orthopedic referral and her referral for Eric Martinez MD is still pending and needs to be faxed to this number. Please advise. Dr Martinez FAX# [phone] documented in this encounter Plan of Treatment Upcoming Encounters Date Type Department Care Team (Late st Contact Info) Description 04/23/2024 1:20 PM CDT Office Visit [facility] Care [address] [place] [phone] Jona Bravo MD [address] [place] [address] [place] [address] 08/25/2024 10:40 AM CDT Office Visit [facility] Primary Care [address] [place] [address] Jona Bravo MD [address] [place] [address] [place] [address] documented as of this encounter Visit Diagnoses Not on filedocumented in this encounter Care Teams Communications Equipment Supervisor Relationship Specialty Start Date End Date Jona Bravo MD PCP - General Internal Medicine 11/25/15 documented as of this encounter
--- OUTSIDE RECORDS SUMMARY | 2024-03-03 13:57 | XMS_ITS | Data Portability ---
Author Organization [facility] [place] Address [address] [place] [address] Assessment No assessment recorded. Plan of Treatment Reminders Order Date Submit Date Provider Last Modified By Organization Details Last Modified Time Details Appointments [facility]OMAN-EST 2024 10:00A Naomi NEWELL MD Not available Not available Not available Lab testoster one, total, serum 2023 [facility] (Lab), [address] [place], [address], 01/24/2024 22:07:50 testoster one, free, serum 2023 024 [facility] (Lab), [address] [facility], [place], [address], 01/24/2024 22:07:50 CMP, serum or plasma 2023 024 [facility] (Lab), [address] [facility], [place], [address], 01/24/2024 22:07:49 Referral None recorded. Procedures None recorded. Surgeries None recorded. Imaging None recorded. Medication Orders clobetaso l 0.05 % topical ointment [email or web address] [place] [address] Pharm[facility] 10[facility], [address] [facility], [place], [address], 12/19/2023 12:05:26 estradiol 0.01% (0.1 mg/gram) vaginal cream 2023 024 [facility], [address] [place], [address], 01/18/2024 16:24:04 Patient TargetsNo targets recorded. Patient InstructionsNo instructions recorded. Reason for Referral None Reported. Results Created Date Observation Date Name Description Value Unit Range Abnormal Flag Note LastModifiedBy Organization Detail LastModifiedTime 01/18/20 24 01/18/2024 CMP(C OMPRE HENSI VE METAB OLIC PANEL ) sodium 141 mmol/ L 133-14 [address] [facility] (Lab) [address] [facility], [place], [address], 01/24/2024 22:07:49 01/18/20 24 01/18/2024 CMP(C OMPRE HENSI VE METAB OLIC PANEL ) potassium 4.1 mmol/ L 3.5-5. [address] [facility] (Lab) [address] [place], [address], 01/24/2024 22:07:49 01/18/20 24 01/18/2024 CMP(C OMPRE HENSI VE METAB OLIC PANEL ) chloride 105 mmol/ L 98-[address] [facility] (Lab) [address] [place], [address], 01/24/2024 22:07:49 01/18/20 24 01/18/2024 CMP(C OMPRE HENSI VE METAB OLIC PANEL ) carbon dioxide 30 mmol/ L 21-[address] [facility] (Lab) [address] [place], [address], 01/24/2024 22:07:49 01/18/20 24 01/18/2024 CMP(C OMPRE HENSI VE METAB OLIC PANEL ) anion gap 6 mmol/ L 4-[address] [facility] (Lab) [address] [place], [address], 01/24/2024 22:07:49 01/18/20 24 01/18/2024 CMP(C OMPRE HENSI VE METAB OLIC PANEL ) blood urea nitrogen 23 mg/dL 7-[address] [facility] (Lab) [address] [facility], [place], [address], 01/24/2024 22:07:49 01/18/20 24 01/18/2024 CMP(C OMPRE HENSI VE METAB OLIC PANEL ) creatinine 0.69 mg/dL 0.60-1 .30 [address] Available [facility] (Lab) [address] [facility], [place], [address], 01/24/2024 22:07:49 01/18/20 24 01/18/2024 CMP(C OMPRE HENSI VE METAB OLIC PANEL ) egfrcr (CKD-epi 2020) >90 mL/mi n/1.7 3_m2 >=[address] [facility] (Lab) [address] [facility], [place], [address], 01/24/2024 22:07:49 01/18/20 24 01/18/2024 CMP(C OMPRE HENSI VE METAB OLIC PANEL ) calcium 9.3 mg/dL 8.3-10 .[address] [facility] (Lab) [address] [facility], [place], [address], 01/24/2024 22:07:49 01/18/20 24 01/18/2024 CMP(C OMPRE HENSI VE METAB OLIC PANEL ) glucose 81 mg/dL 70-[address] [facility] (Lab) [address] [facility], [place], [address], 01/24/2024 22:07:49 01/18/20 24 01/18/2024 CMP(C OMPRE HENSI VE METAB OLIC PANEL ) protein, total 6.7 g/dL 6.4-8. [address] [facility] (Lab) [address] [facility], [place], [address], 01/24/2024 22:07:49 01/18/20 24 01/18/2024 CMP(C OMPRE HENSI VE METAB OLIC PANEL ) albumin 4.5 g/dL 3.5-5. 0 Not Available [facility] (Lab) [address] [facility], [place], [address], 01/24/2024 22:07:49 01/18/20 24 01/18/2024 CMP(C OMPRE HENSI VE METAB OLIC PANEL ) ALT 54 units /L 9-43 high Not Available [facility] (Lab) [address] [facility], [place], [address], 01/24/2024 22:07:49 01/18/20 24 01/18/2024 CMP(C OMPRE HENSI VE METAB OLIC PANEL ) alkaline phosphatase 64 units /L 34-[address] Not [address] [facility] (Lab) [address] [facility], [place], [address], 01/24/2024 22:07:49 01/18/20 24 01/18/2024 CMP(C OMPRE HENSI VE METAB OLIC PANEL ) AST 42 units /L 13-39 high Not Available [facility] (Lab) [address] [facility], [place], [address], 01/24/2024 22:07:49 01/18/20 24 01/18/2024 CMP(C OMPRE HENSI VE METAB OLIC PANEL ) bilirubin, total 0.7 mg/dL 0.2-1. [address] [facility] (Lab) [address] [place], [address], 01/24/2024 22:07:49 01/18/20 24 01/18/2024 TESTO STERO NE, TOTAL testosterone , total <10 NG/dL 0-[address] [facility] (Lab) [address] [place], [address], 01/24/2024 22:07:50 01/18/20 24 01/18/2024 TESTO STERO [...] [facility] [place]. It has not been clear ed or appro otilia by the U.S. Food and Drug Admin istra tion. This assay has been valid ated pursu ant to the CLIA regul ation s and is used for clini fortunato purpo ses. Perfo rming Organ izati on Infor matio n: Site ID: AMD Name: [facility] ost[facility] Addre ss: [id number] [facility] [employer] [place], [place] Direc tor: Nolan Coelho MD PhD Not Available [facility] (Lab) [address] [facility] [facility], [place], [address], 01/24/2024 22:07:50 Result Notes None recorded. Procedures Surgical History Date Name Laterality Status Provider Name and Address Organization Details Recorded Time 11/18/19 23 completed Renetta [facility] 12/18/2023 17:38:10 11/14/19 23 Date of Last Mammogram completed Renetta [facility] 12/18/2023 17:38:32 06/13/19 23 Most Recent Bone Density completed Renetta [facility] 12/18/2023 17:38:32 11/07/19 20 Date of Last Colonoscopy completed Renetta [facility] 12/18/2023 17:38:32 06/25/19 20 Date of Last Pap Smear completed Renetta [facility] 12/18/2023 17:38:32 06/24/19 19 completed Renetta [facility] 12/18/2023 17:38:10 06/24/19 19 Gastric Bypass completed [facility] 12/18/2023 17:38:10 06/20/19 19 Bariatric Surgery completed [facility] 12/18/2023 17:38:10 06/24/19 00 Colonoscopy completed [facility] 12/18/2023 17:38:10 Gastric Bypass completed [facility] 12/18/2023 17:38:10 LEEP completed [facility] 12/18/2023 17:38:10 Dilation and Curettage completed [facility] 12/18/2023 17:38:10 Orthopedic Surgery completed [facility] 12/18/2023 17:38:10 Endometrial Ablation completed [facility] 12/18/2023 17:38:10 Hysteroscopy completed [facility] 12/18/2023 17:38:10 Laparoscopy completed [facility] 12/18/2023 17:38:10 Endometrial Biopsy completed [facility] 12/18/2023 17:38:10 Other completed [facility] 12/18/2023 17:38:10 Total Hysterectomy completed [facility] 12/18/2023 17:38:10 Appendectomy completed [facility] 12/18/2023 17:38:10 Imaging Results None recorded. Procedure Notes None recorded. Medical Equipment None Reported. Allergies Allergen ID Allergen Name Allergen Category Reaction Reaction Severity Criticality Documentation Date Start Date Code Code System Note Provider Name and Address Organization Details Recorded Time 18485 codeine medicatio n Not available Not available Not available 12/18/2023 2670 RxNorm Renetta aMldonado [facility] 4 17:48:47 24202 meperidin e medicatio n Not available Not available Not available 12/18/2023 6754 RxNorm Renetta Maldonado [facility] 4 17:49:01 72844 levofloxa vishnu medicatio n Not available Not available Not available 12/18/2023 63454 RxNorm Renetta Maldonado [facility] 4 17:49:16 67801 gabapenti n medicatio n Not available Not available Not available 12/18/2023 76948 RxNorm Renetta Maldonado [facility] 4 17:49:27 75335 adhesive tape environme nt,medica tion Not available Not available Not available 12/18/2023 02401 UNK Renetta Maldonado [facility] 4 17:49:34 26721 doxycycli ne Not available Not available Not available Not available 12/18/2023 3640 RxNorm Renetta Maldonado [facility] 4 17:49:45 Medications Name Sig Start [...] Address Organization Details Last Updated DateTime 12/18/2023 03060.14 g 33.8 kg/m2 160.02 cm 143 mm[Hg] 84 mm[Hg] [facility] 4 17:48:08 Date Recorded Body height Body mass index (BMI) Body weight Systolic blood pressure Diastolic blood pressure Provider Name and Address Organization Details Last Updated DateTime 01/18/2024 160.02 cm 33.5 kg/m2 23335.96 g 149 mm[Hg] 88 mm[Hg] [facility] 4 10:33:47 Social History Question Answer Notes LastModified by Organizat ion Details LastModified Time Do You Have An Advance Directive? No [email or web address] Information n ot available 12/18/2023 What Is Your Level Of Alcohol Consumption? None Information not available 12/18/2023 Are You Blind Or Do You Have Difficulty Seeing? No [email or web address] Information not available 12/18/2023 What Is Your Level Of Caffeine Consumption? None [email or web address] Information not available 12/18/2023 In The 14 Days Before Symptom Onset, Have You Had Close Contact With A Laboratory-confirme d COVID-19 While That Case Was Ill? No [email or web address] Information n ot available 12/18/2023 In The 14 Days Before Symptom Onset, Have You Had Close Contact With A Person Who Is Under Investigation For COVID-19 While That Person Was Ill? No Information not available 12/18/2023 Have You Been To An Area Known To Be High Risk For COVID-19? No [email or web address] Information not available 12/18/2023 Are You Deaf Or Do You Have Serious Difficulty Hearing? No [email or web address] Information not available 12/18/2023 What Type Of Diet Are You Following? REGULAR [email or web address] Information n ot available 12/18/2023 What Is The Highest Grade Or Level Of School You Have Completed Or The Highest Degree You Have Received? WP11809-8 [email or web address] Information not available 12/18/2023 What Is Your Occupation? Disabled [email or web address] Information not available 12/18/2023 Are There Any Guns Present In Your Home? No Information not available 12/18/2023 Do You Use Protection During Sex? No [email or web address] Information not available 12/18/2023 Do You Use Your Seat Belt Or Car Seat Routinely? Yes [email or web address] Information not available 12/18/2023 Do You Have Smoke And Carbon Monoxide Detectors In Your Home? Yes [email or web address] Information not available 12/18/2023 How Much Tobacco Do You Smoke? No [email or web address] Information not available 12/18/2023 Do You Feel Stressed (tense, Restless, Nervous, Or Anxious, Or Unable To Sleep At Night)? HC86022-4 uejmkha51 Information not available 12/18/2023 Do You Use Any Illicit Or Recreational Drugs? No [email or web address] Information not available 12/18/2023 Do You Use Sunscreen Routinely? Yes [email or web address] Information not available 12/18/2023 Have You Used IV Drugs? No [email or web address] Information not available 12/18/2023 Sex: Unknown Functional Status Question Answer Note LastModified by Organization D etails LastModified Time Are you able to walk? YESWOREST [email or web address] Information not available 12/18/2023 What is your exercise level? None [email or web address] Information not available 12/18/2023 Mental Status None recorded. Family History Relationship Description Onset Age of this Age Resolved Age Notes LastModified by Organization Details LastModified Time Mother Disorder of lung 73 73 [email or web address] Not available 2023 17:38:09 Mother Malignant tumor of lung 73 73 [email or web address] Not available 2023 17:38:09 Mother Disorder of lung [email or web address] Not available 2023 10:30:05 Mother Malignant tumor of lung [email or web address] Not available 2023 10:30:05 Son Depressive disorder 25 [email or web address] Not available 2023 10:30:05 Son Depressive disorder [email or web address] Not available 2023 10:30:05 Daughter Asthma 14 Not availabl e 01/18/2024 10:30:05 Daughter Anxiety disorder 15 Not available 2023 10:30:05 Daughter Depressive disorder 15 [email or web address] Not available 2023 10:30:05 Daughter Substance abuse 16 [email or web address] Not available 2023 10:30:05 Daughter Mental disorder 16 [email or web address] Not available 2023 10:30:05 Daughter Pre-eclampsi a 28 vnvsxet45 Not available 2023 10:30:05 Daughter Asthma [email or web address] Not availabl e 01/18/2024 10:30:05 Daughter Anxiety disorder [email or web address] Not available 2023 10:30:05 Daughter Depressive disorder [email or web address] Not available 2023 10:30:05 Daughter Pre-eclampsi a itnlzve03 Not available 2023 10:30:05 Daughter Substance abuse deqvjtt13 Not available 2023 10:30:05 Daughter Mental disorder Not available 2023 10:30:05 Sister Anemia 23 Not available 01/18/2024 10:30:05 Sister Osteoporosis 45 [email or web address] Not avai lable 01/18/2024 10:30:05 Sister Diabetes mellitus 45 yvleqtd76 Not available 2023 10:30:05 Sister Anemia [email or web address] Not available 01/18/2024 10:30:05 Sister Osteoporosis nbkqosv76 Not avai lable 01/18/2024 10:30:05 Sister Diabetes mellitus czsxcev83 Not available 2023 10:30:05 Father Heart disease 59 67 [email or web address] Not available 2023 17:38:10 Father Disorder of lung 67 67 [email or web address] Not available 2023 17:38:10 Father Disorder of lung wmliicr95 Not available 2023 10:30:05 Father Heart disease [email or web address] Not available 2023 10:30:05 Medical History No [...] SNOMED-CT Code Diagnosis ICD10 Code Diagnosis Note [id number] KELVIN NEWELL MD [place] [address] [address] 12/18/2023 17:22:32 12/19/2023 03:57:08 Genital herpes simplex 78104658 A60.9 - new exposure per patient- s/p [...] at this time Lichen sim plex chronicus [id number] L28.0 - patient reports thickening of vulvar skin for years, itch-scrat ch cycle- will start clobetasol ointment; rtc 1 month for evaluation [id number] KELVIN NEWELL MD [place] [address] [address] 01/18/2024 10:05:21 01/18/2024 16:50:31 Lack or loss of sexual desire 511456755 F52.0 - patient reports long standing superficia l dyspareuni a (previousl y improved with vaginal estrogen cream) and low libido- will restart vaginal estrogen- discussed testostero ne supplement ation for HSDD Lichen sim plex chronicus 51587804 L28.0 - patient reports thickening of vulvar [...] Guarantor Name 12/18/2023 4 [place] Tk Abad Joseph [id number] Tiffanie Ruiz 12/18/2023 1 [place] Tiffanie Ruiz [id number] Tiffanie Ruiz 01/18/2024 2 [place] [id number] Tk Ruiz [id number] Tiffanie Ruiz 01/18/2024 1 [place] Tiffanie Ruiz [id number] Tiffaniemorgan Ruiz Notes Date Note Type Note Provider [...] it. KELVIN NEWELL MD [address], [place], [address], [facility] 12/18/2023 22:44:55 01/18/2024 text/html Patient presents [...] libido. KELVIN NEWELL MD [address], [place], [address], [facility] 01/18/2024 16:24:14 OBGyn Episode Ob Episode Information Episode Created Date Number of Fetuses Patient Bloodtype Patient rh Status Prepregnancy Weight lbs Domestic Partner Domestic Partner Phone Father Name Stained Glass Glazier Helper Status 12/18/19 24 1 CLOSED Fetus Data First Name Last Name Admitted to NICU Weight (g) Sex Living Outcome Pediatric Complications Fetus ID Race Codes Race Delivery Type F Full Term 05693 Vaginal Delivery Frederick Calculation Initial Frederick Date [...] Domestic Partner Domestic Partner Phone Father Name Stained Glass Glazier Helper Status 12/18/19 24 1 CLOSED Fetus Data First Name Last Name Admitted to NICU Weight (g) Sex Living Outcome Pediatric Complications Fetus ID Race Codes Race Delivery Type M Full Term 04907 Vaginal Delivery Frederick Calculation Initial Frederick Date [...]
--- OUTSIDE RECORDS SUMMARY | 2024-03-03 13:57 | XMS_ITS ---
Author Organization [facility] Address [address] [facility] [place] [address] Care Team Providers Care Stock Saw Operator Name Role Phone Kathi Zimmerman Primary Care Provider Encounters Encounter Location Date Provider Diagnosis [facility] - Kathi Zimmerman [address] [place] [address] 02/25/2024 Kathi Zimmerman Plan Of Treatment No Information Progress Notes * Javon GRESHAMOB:[birth year] (64 yo F)Acc No.[id number]:02/25/2024 Patient:?MPTieraTiffanie :1960???Age:64 Y???Sex:Female Address:[place] [address] * * Date:?
== END 2024-03-03 13:13 | disposition home or self-care (01) ==
PROVIDERS: PCP Internal Medicine; Visit Provider Urology
DX: N20.2 Calculus of kidney with calculus of ureter (principal)
CPT/HCPCS: 74018; 74176

== ENCOUNTER 2024-03-07 01:52 | Day surgery (SDC) | payer MEDICARE, BC, SELFPAY ==
--- NOTE | 2024-03-06 08:35 | PC.NURSE ---
Report to the Outpatient Waiting Room, entrance under the green pavilion located off [facility], at time _1200 noon on date _03/07/24 . Planned Procedure Time: ____2pm____.? Time changes happen often and if your time is changed the preop area will call you the afternoon before. - You and your visitor will be asked to self-screen and do not enter if you have any COVID symptoms. Please call surgeon if you need to reschedule. - A mask is optional within the hospital at this time. Patients may have clear liquids (water, carbonated beverages, clear teas, apple juice) until 3 hours prior to surgery ( 11 am)with a maximum of 20 ounces. - No food from midnight until time of surgery and no smoking. This includes no chewing gum, candy or mints. - Take only the following medications with a SIP of water on the morning of surgery: _INHALER IF NEEDED,AMLODIPINE,BUPROPION,BUSPIRONE,_DULOXETINE,,LEVOTHYROXINE, HYDROCODONE IF NEEDED FOR PAIN DO NOT STOP ANY OF YOUR OTHER PRESCRIPTION MEDICATIONS PRIOR TO SURGERY EXCEPT THE FOLLOWING Medications to discontinue per physician ____ASPIRIN PT STATES LAST DOSE WAS 03/02/[address] SALEH WAS AWARE Please no make-up, nail cambodian, hairspray, perfume, deodorant, or body powder the day of surgery.? No jewelry (including any body piercings) or valuables the day of surgery, leave them at home.? Please take a shower or bath the night before, or the morning of, surgery with an antibacterial soap.? Wear comfortable, loose fitting clothing.? Children are encouraged to wear pajamas. - Jewelry must be removed prior to entering the operating room.? Rings and piercings that are not removed may be cut off. - The hospital will not accept responsibility for valuables.? - Please leave all valuables, including medications, at home the day of surgery. If you are going home after surgery, a licensed special education bus driver must drive you home.? - NO public transportation without another adult if you receive anesthesia. - We recommend that an adult stay with you for 24 hours following discharge. - We also recommend that you do not drive, make important decision, drink alcoholic beverages, or take any drugs that were not prescribed by your health care provider for at least 24 hours after your discharge time. Hold all vitamins and supplements for 3 days per anesthesiologist. Follow any additional instructions given to you from your surgeon. Telephone instructions given to ___PATIENT and asked if any additional questions and then verbalized understanding. Patient advised to call surgeon office or pre surgery nurse liaison [phone] if any additional questions.
[2024-03-06 09:06] VITALS: BMI 33.6
[2024-03-07] VITALS (9 sets, daily range): BP systolic 130–148; BP diastolic 47–78; PULSE 67–76; RESP 12–18; TEMP 36.2–36.8; O2SAT 97–100; BMI 33.5
--- NOTE | ~2024-03-07 | XR_ITS ---
EXAMINATION: XR retrograde pyelo w/stent RT DATE: 03/07/2024 14:38 INDICATION: Right ureteral stone. TECHNIQUE: 3 intraoperative fluoroscopic views of the abdomen and pelvis were obtained. I was not pre sent. Fluoroscopy exposure time was 27 seconds. COMPARISON: CT abdomen and pelvis 03/03/2024 FINDINGS: The right-sided retrograde pyelogram is unremarkable. Images demonstrate a right internal u reteral stent in expected position. IMPRESSION: 1. Right internal ureteral stent in expected position. Reviewed, dictated and finalized at location A. TER STACKER
--- NOTE | ~2024-03-07 | XR_ITS ---
EXAMINATION: XR abdomen/kub 1V DATE: 03/07/2024 12:14 INDICATION: Kidney stone. TECHNIQUE: A supine view of the abdomen on 2 radiographs was obtained. COMPARISON: Abdomen radiographs 03/03/2024, CT abdomen and pelvis 03/03/24 FINDINGS: There are no dilated loops of bowel. There are phleboliths in the pelvis. There is a phlebo lith in right ovarian vein. IMPRESSION: 1. No visible urolithiasis. Reviewed, dictated and finalized at location A. N BROKER IMPRESSION: 1. No visible urolithiasis.
--- OUTSIDE RECORDS SUMMARY | 2024-03-07 01:58 | XMS_ITS | Clinical Summary ---
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 08/2019 Cervical radiculopathy 09/12/2019 Cervicalgia 09/12/2019 S/P gastric bypass 06/19/2018 Overview (12/26/2019): 06/19/18 Laparoscopic Judy-en-Y Gastric Bypass Chronic right-sided low back pain without sciati ca 05/02/2018 Sacroiliitis (CMS/HCC) - Right 05/02/2018 DDD (degenerative disc disease), lumbar 05/03/19 Actinic keratosis 04/11/2018 Assessment & Plan (04/11/2018 2:20 PM FABRICATION AND LAYOUT CRAFTSMAN): - Location/s: Face - Imiquimod Rx - [...] Date Type Department Care Team Description 02/26/2024 [facility]) - [facility] [address] 11th [place] [address] [place] [address] Bradley FabyMS rakel 02/18/2024 1:15 PM FABRICATION AND LAYOUT CRAFTSMAN Office Visit [facility] [address] [place] [phone] Kendrick Hernandez MD Psychophysiological insomnia (Primary Dx); MEREDITH (obstructive sleep apnea); Hypersomnia with sleep apnea 01/17/2024 3:40 PM FABRICATION AND LAYOUT CRAFTSMAN Office Visit [facility]) - [facility] [address] [facility] Medical Office Building [address] [place] [phone] Caren Caputo MD S/P insertion of hypoglossal nerve stimulator (Primary Dx); MEREDITH (obstructive sleep apnea) 01/07/2024 1:23 PM FABRICATION AND LAYOUT CRAFTSMAN - 01/07/2024 6:24 PM FABRICATION AND LAYOUT CRAFTSMAN Emergency [facility] Emergency Department [address] [place] [address] Ayla Ambrose MD Galicia, Edgar E., MD Post-operative pain (Primary Dx); Secondary hypertension; Acute nonintractable headache, unspecified headache type Discharge Disposition: Discharge to home or self care 01/01/2024 8:30 AM FABRICATION AND LAYOUT CRAFTSMAN - 01/01/2024 11:00 AM FABRICATION AND LAYOUT CRAFTSMAN Surgery [facility] Operating Room [id number] [place] [address] Caren Caputo MD INSPIRE HYPOGLOSSAL NERVE STIMULATOR IMPLANT 01/01/2024 8:21 AM FABRICATION AND LAYOUT CRAFTSMAN Anesthesia Event [facility] Operating Room [address] [place] [address] Evette Huddleston Jr., MD Barnhart, Lynlee Jo, NP 01/01/2024 6:29 AM FABRICATION AND LAYOUT CRAFTSMAN - 01/01/2024 1:16 PM FABRICATION AND LAYOUT CRAFTSMAN Hospital Encounter [facility] Operating Room [address] [place] [address] Caren Caputo MD MEREDITH (obstructive sleep apnea) (Primary Dx) Discharge Disposition: Discharge to home or self care 12/26/2023 Telephone [facility] [address] [place] [address] [address] [place] [address] Kendrick Hernandez MD 12/26/2023 Telephone [facility] [address] [place] [address] [address] [place] [address] Kendrick Hernandez MD 12/24/2023 9:45 AM FABRICATION AND LAYOUT CRAFTSMAN Pre-Admission Testing [facility] Pre Anesthesia Testing [address] [place] [address] Type 2 diabetes mellitus with other specified complication, unspecified whether jail insulin use (HCC) (Primary Dx); Pre-op testing [...] fatty liver dis ease without nonalcoholic steatohepatitis ([place]) Kidney stone Type 2 diabetes mellitus (HCC) [...] any clubs o r organizations such as evangelical groups, unions, fraternal or athletic groups, or [...] place to sleep or slept in a long-term (including now)? No 10/13/2021 Personal Safety Answer Date Recorded Have you ever been in or are you currently in a harmful physical or emotional relationship or is someone making you feel afraid or unsafe? Denies 01/07/2024 Comments No Sex and Gender Information Value Date Recorded Sex Assigned at Not on file Legal Sex Female 12:46 AM FABRICATION AND LAYOUT CRAFTSMAN Gender Identity Female 04/08/2019 6:15 AM FABRICATION AND LAYOUT CRAFTSMAN Sexual Orientation Straight 04/08/2019 6: 15 AM FABRICATION AND LAYOUT CRAFTSMAN Occupation Industry Job Start Date Job End [...] Comments Blood Pressure 131/81 02/18/2024 1:01 PM FABRICATION AND LAYOUT CRAFTSMAN Pulse 93 02/18/2024 1:01 PM FABRICATION AND LAYOUT CRAFTSMAN Temperature 36.2 ??C (97.2 ??F) 01/07/2024 10:[address] Respiratory Rate 18 01/07/2024 6:00 PM FABRICATION AND LAYOUT CRAFTSMAN Oxygen Saturation 97% 02/18/2024 1:01 PM FABRICATION AND LAYOUT CRAFTSMAN Inhaled Oxygen Concentration - - Weight 85.3 kg (188 lb) 02/18/2024 1:01 PM FABRICATION AND LAYOUT CRAFTSMAN Height 165.1 cm (5' 5 ) 02/18/2024 1:01 PM FABRICATION AND LAYOUT CRAFTSMAN Body Mass Index 31.28 02/18/2024 1:01 PM FABRICATION AND LAYOUT CRAFTSMAN Plan of Treatment Health Maintenance Due Date [...] 02/05/2013, 09/14/2011 Medical Devices Implanted Type Area Shadow Graph Weight Operator Device Identifier Shelf Expiration Date Model / Serial / Lot [employer] Cruzito 180-223 Contour 6fr 26cm Large Inner Lumen Low Profile Bladder Lei Taper Latex Free - [id number] Implanted:Qty: 1 on 04/23/2018 by Christopher Her MD at [facility] Stent Right: Ureter [employer] Cruzito 11/19/2020 180-223 / / [id number] Plates Screws N/A: Neck [employer] Lead Neurostimulator Sleep Apnea Thoracic Permanent Respiratory Sensing Inspire 43cm 4340 - [id number] - [id number] Implanted:Qty: 1 on 01/01/2024 by Caren Captuo MD at [facility] N/A: Chest [employer] 07/21/2026 4340 / [id number] / [employer] Inspire 3 Electrode Cuff Tunnel José Lead Neurostimulator Sterile 4063 - [id number] - [id number] Implanted:Qty: 1 on 01/01/2024 by Caren Caputo MD at [facility] N/A: Neck [employer] 01/22/2026 4063 / [id number] / [employer] Inspire Generator 3028 - [id number] - [id number] Implanted:Qty: 1 on 01/01/2024 by Caren Caputo MD at [facility] N/A: Chest [employer] 07/22/2026 3028 / [id number] / Procedures Procedure Name Priority Date/Time Associated Diagnosis Comments POCT GLUCOSE DEVICE Routine 01/07/2024 4 :33 PM FABRICATION AND LAYOUT CRAFTSMAN CTA HEAD NECK W WO CONTRAST ED 01/07/2024 4:19 PM FABRICATION AND LAYOUT CRAFTSMAN TROPONIN T HIGH-SENSITIVITY 4-HR Timed 01/07/2024 3:24 PM FABRICATION AND LAYOUT CRAFTSMAN TROPONIN T HIGH-SENSITIVITY 2-HOUR STAT 01/07/2024 1:55 PM FABRICATION AND LAYOUT CRAFTSMAN XR CHEST PA LATERAL 2 VIEWS ED 01/07/2024 11:29 AM FABRICATION AND LAYOUT CRAFTSMAN EGFR STAT 01/07/2024 11:11 AM FABRICATION AND LAYOUT CRAFTSMAN DIFFERENTIAL AUTO STAT 01/07/2024 11: 11 AM FABRICATION AND LAYOUT CRAFTSMAN TROPONIN T HIGH-SENSITIVITY SERIES (BASELINE, 2HR, 4HR, 6HR) STAT 01/07/2024 11:11 AM FABRICATION AND LAYOUT CRAFTSMAN COMPREHENSIVE METABOLIC PANEL STAT 01/07/2024 11:11 AM FABRICATION AND LAYOUT CRAFTSMAN CBC WITH AUTO DIFFERENTIAL STAT 01/07/2024 11:11 AM FABRICATION AND LAYOUT CRAFTSMAN ECG 12-LEAD STAT 01/07/2024 11:02 AM FABRICATION AND LAYOUT CRAFTSMAN POCT GLUCOSE DEVICE Routine 01/01/2024 1 1:34 AM FABRICATION AND LAYOUT CRAFTSMAN XR NECK SOFT TISSUE ED Urgent/IP Urgent 01/01/2024 11:19 AM FABRICATION AND LAYOUT CRAFTSMAN XR CHEST 1 VIEW ED Urgent/IP Urgent 01/01/2024 11:19 AM FABRICATION AND LAYOUT CRAFTSMAN POCT GLUCOSE DEVICE Routine 01/01/2024 1 0:54 AM FABRICATION AND LAYOUT CRAFTSMAN PA AN ELECTIVE ENDOTRACHEAL AIRWAY Routine 01/01/2024 9:06 AM FABRICATION AND LAYOUT CRAFTSMAN INSPIRE HYPOGLOSSAL NERVE STIMULATOR IMPLANT - INSERTION 01/01/2024 8:20 AM FABRICATION AND LAYOUT CRAFTSMAN MEREDITH (obstructive sleep apnea) Special Needs DR CAPUTO REQUESTS 150 MINS FOR CASE/10-14 DAYS POST OP POCT GLUCOSE DEVICE Routine 01/01/2024 7 :21 AM FABRICATION AND LAYOUT CRAFTSMAN EGFR Routine 12/24/2023 11:05 AM FABRICATION AND LAYOUT CRAFTSMAN Pre-op testing BASIC METABOLIC PANEL Routine 12/24/2023 11:05 AM FABRICATION AND LAYOUT CRAFTSMAN Pre-op testing DIFFERENTIAL AUTO Routine 12/24/2023 10: 56 AM FABRICATION AND LAYOUT CRAFTSMAN Pre-op testing CBC WITH AUTO DIFFERENTIAL Routine 12/24/2023 10:56 AM FABRICATION AND LAYOUT CRAFTSMAN Pre-op testing HEMOGLOBIN A1C Routine 12/24/2023 10:56 AM FABRICATION AND LAYOUT CRAFTSMAN Type 2 diabetes mellitus with other specified complication, unspecified whether jail insulin use (HCC) Pre-op testing URINALYSIS AND REFLEX TO MICROSCOPIC AND CULTURE Routine 12/24/2023 10:56 AM FABRICATION AND LAYOUT CRAFTSMAN Pre-op testing DEXA AXIAL AND FOREARM BONE [...] Results * POCT glucose (01/07/2024 4:33 PM FABRICATION AND LAYOUT CRAFTSMAN) Glucose, POC 80 70 - 199 mg/dL Blood 01/07/2024 4:33 PM FABRICATION AND LAYOUT CRAFTSMAN 01/07/2024 4:33 PM FABRICATION AND LAYOUT CRAFTSMAN Mars Montano MD LAB POCT ORDERABLES - DEVICE Final Result [facility] ([place]) [address] [facility] [place] [address] * CTA Head Neck W WO Contrast (01/07/2024 4:19 PM FABRICATION AND LAYOUT CRAFTSMAN) Anatomical Region Laterality Modality Head and Neck N/A Computed Tomogra phy 01/07/2024 4:43 PM FABRICATION AND LAYOUT CRAFTSMAN Narrative 01/07/2024 5:02 PM FABRICATION AND LAYOUT CRAFTSMAN EXAM DESCRIPTION: ?? CTA HEAD NECK W [...] prominent at C6-C7 where there is likely voxw-mg-fpwrycfs spinal canal stenosis. IMPRESSION: BRAIN: No acute [...] PM T: ??01/07/2024 5:02 PM Report ID: [id number] Reading Location: ??[id number] Procedure Note Nigel Mei MD - 01/07/2024 EXAM DESCRIPTION: CTA HEAD NECK W WO CONTRAST REASON FOR STUDY: headache neck pain aftyer implant Ambulate to triage c/o had an implant put in for sleep apnea on and has had high blood pressure since then. [facility] has had a headacheon right side since this weekend. [facility] talked to primary doctor today whotold her [...] There is an implantable medical generator within [facility] which per provided clinical history [...] prominent at C6-C7 where there is likely epbj-ka-wsbrtpdj spinal canal stenosis. IMPRESSION: BRAIN: No acute intracranial process identified. Chronic left basal ganglia infarct. INTRACRANIAL CTA: 1. No large vessel occlusion or significant intracranial stenosis identified. 2. Mild luminal irregularity of the left middle cerebral artery [id number] without stenosis likely represents intracranial atherosclerotic disease. [...] Nigel Mei M.D. MM: MM Report ID: [id number] Reading Location: [place] [address] Ayla Ambrose MD IMG CT PROCEDURES F inal Result * Troponin T high-sensitivity 4-hour (01/07/2024 3:24 PM FABRICATION AND LAYOUT CRAFTSMAN) Trop T hs <6 <=14 ng/L Comment: Interpretive Data For further hscTnT resources including the diagnostic algorithm and an aid in interpretation, copy and paste this link: [email or web address]://[email or web address]/show/hsTrop Current Interpretive Data last revised 2019. Trop T hs delta 0 ng/L [facility] ([place]) Trop T hs interp Insignificant [facility] ([place]) Blood 01/07/2024 3:24 PM FABRICATION AND LAYOUT CRAFTSMAN 01/07/2024 3:26 PM FABRICATION AND LAYOUT CRAFTSMAN Ayla Ambrose MD LAB BLOOD ORDERABLE S Final Result [facility] LA[facility] ([place]) [address] [facility] [facility] Department [place] [address] * Troponin T high-sensitivity 2-hour (01/07/2024 1:55 PM FABRICATION AND LAYOUT CRAFTSMAN) Trop T hs <6 <=14 ng/L Comment: Interpretive Data For further hscTnT resources including the diagnostic algorithm and an aid in interpretation, copy and paste this link: https://[email or web address]/show/hsTrop Current Interpretive Data last revised 2019. Trop T hs delta 0 ng/L [facility] ([place]) Trop T hs interp Insignificant [facility] ([place]) Blood 01/07/2024 1:55 PM FABRICATION AND LAYOUT CRAFTSMAN 01/07/2024 1:56 PM FABRICATION AND LAYOUT CRAFTSMAN us Ayla Ambrose MD LAB BLOOD ORDERABLE S Final Result [facility] [place]) [address] [facility] [facility] Department [place] [address] * XR Chest PA Lateral 2 Views (01/07/2024 11:29 AM FABRICATION AND LAYOUT CRAFTSMAN) Anatomical Region Laterality Modality Body, Chest N/A Computed Radiogr aphy 01/07/2024 11:3 7 AM FABRICATION AND LAYOUT CRAFTSMAN Narrative 01/07/2024 11:41 AM FABRICATION AND LAYOUT CRAFTSMAN EXAM DESCRIPTION: XR CHEST PA LATERAL 2 [...] AM T: ??01/07/2024 11:41 AM Report ID: [id number] Reading Location: ??[id number] Procedure Note Destinee Pichardo MD - 01/07/2024 [...] Destinee Pichardo M.D. AG: ZITA Report ID: [id number] Reading Location: [id number] Ayla Ambrose MD IMG XR PROCEDURES F inal Result * Troponin T high-sensitivity series (baseline, 2hr, 4hr, 6hr) (01/07/2024 11:11 AM FABRICATION AND LAYOUT CRAFTSMAN) Trop T hs <6 <=14 ng/L Comment: Interpretive Data For further hscTnT resources including the diagnostic algorithm and an aid in interpretation, copy and paste this link: https://nrl.testcatalog.org/show/[email or web address] Current Interpretive Data last revised 2019. Blood 01/07/2024 11:1 1 AM FABRICATION AND LAYOUT CRAFTSMAN 01/07/2024 11:14 AM FABRICATION AND LAYOUT CRAFTSMAN Ayla Ambrose MD LAB BLOOD ORDERABLE S Final Result [facility] [place]) [address] [facility] Department [place] [address] * eGFR (01/07/2024 11:11 AM FABRICATION AND LAYOUT CRAFTSMAN) eGFR >90 >=60 mL/min/1. 73 m2 Comment: [...] reviewed 2020. Blood 01/07/2024 11:1 1 AM FABRICATION AND LAYOUT CRAFTSMAN 01/07/2024 11:14 AM FABRICATION AND LAYOUT CRAFTSMAN us Ayla Ambrose MD LAB BLOOD ORDERABLE S Final Result [facility] ([place]) [address] Department [place] [address] * Differential, auto (01/07/2024 11:11 AM FABRICATION AND LAYOUT CRAFTSMAN) Neutrophil abs 3.3 1.5 - 6.5 K/cumm [...] on 2017. Blood 01/07/2024 11:1 1 AM FABRICATION AND LAYOUT CRAFTSMAN 01/07/2024 11:15 AM FABRICATION AND LAYOUT CRAFTSMAN Ayla Ambrose MD LAB BLOOD ORDERABLE S Final Result [facility] ([place]) [address] [facility] [place] [address] * (ABNORMAL) CBC with auto differential (01/07/2024 11:11 AM FABRICATION AND LAYOUT CRAFTSMAN) WBC 5.9 3.8 - 9.9 K/cumm Hgb [...] ([place]) Blood (Blood, Venous) 01/07/2024 11:11 AM FABRICATION AND LAYOUT CRAFTSMAN 01/07/2024 11:15 AM FABRICATION AND LAYOUT CRAFTSMAN us Ayla Ambrose MD LAB BLOOD ORDERABLE S Final Result [facility] ([place]) [address] [facility] [place] [address] * (ABNORMAL) Comprehensive metabolic panel (01/07/2024 11:11 AM FABRICATION AND LAYOUT CRAFTSMAN) Pathologist [facility] Sodium 141 135 - 145 mmol/L Potassium, [...] [facility] ([place]) Blood 01/07/2024 11:1 1 AM FABRICATION AND LAYOUT CRAFTSMAN 01/07/2024 11:14 AM FABRICATION AND LAYOUT CRAFTSMAN us Ayla Ambrose MD LAB BLOOD ORDERABLE S Final Result [facility] ([place]) [address] [facility] Department [place] [address] * ECG 12 lead (01/07/2024 11:02 AM FABRICATION AND LAYOUT CRAFTSMAN) 01/07/2024 11:0 2 AM FABRICATION AND LAYOUT CRAFTSMAN Narrative [facility] - 01/08/2024 1:40 AM FABRICATION AND LAYOUT CRAFTSMAN Vent Rate: 76 bpm RR Interval: 786 msec PA Interval: 142 msec QRS Duration: 84 msec QT Interval: 371 msec QTC Interval: 401 msec P-R-T Ione: 48 - 22 - 67 degrees IMPRESSION: SINUS RHYTHM MINIMAL VOLTAGE CRITERIA FOR LVH, CONSIDER NORMAL VARIANT ??[MEETS CRITERIA IN ONE OF: R(aVL), S(V1), R(V5), R(V5/V6)+S(V1)] NONSPECIFIC T-WAVE ABNORMALITY BORDERLINE ECG Electronically Signed By: Supa Ernandez MD Ayla Ambrose MD ECG ORDERABLES Fin al Result Performing Organization Address [facility]/ZIP Co de Phone Number [facility] * POCT glucose (01/01/2024 11:34 AM FABRICATION AND LAYOUT CRAFTSMAN) Glucose, POC 131 70 - 199 mg/dL Blood 01/01/2024 11:3 4 AM FABRICATION AND LAYOUT CRAFTSMAN 01/01/2024 11:34 AM FABRICATION AND LAYOUT CRAFTSMAN Caren Caputo MD LAB POCT ORDERABLES - DEVICE Final Result Performing Organization Address [facility] Co de Phone Number [facility] [phone] Department [place] [address] * XR Neck Soft Tissue (01/01/2024 11:19 AM FABRICATION AND LAYOUT CRAFTSMAN) Anatomical Region Laterality Modality Head and Neck N/A Computed Radiogr aphy 01/01/2024 12:0 1 PM FABRICATION AND LAYOUT CRAFTSMAN Impressions 01/01/2024 12:01 PM FABRICATION AND LAYOUT CRAFTSMAN Postoperative change of hypoglossal nerve stimulator as described. Electronically signed by: Octavia Chavez M.D. Narrative 01/01/2024 12:01 PM FABRICATION AND LAYOUT CRAFTSMAN EXAMINATION: XR NECK SOFT TISSUE HISTORY: lateral [...] Chest 1 Vw Portable (01/01/2024 11:19 AM FABRICATION AND LAYOUT CRAFTSMAN) Anatomical Region Laterality Modality Body, Chest N/A Computed Radiogr aphy 01/01/2024 11:3 6 AM FABRICATION AND LAYOUT CRAFTSMAN Impressions 01/01/2024 11:36 AM FABRICATION AND LAYOUT CRAFTSMAN No pneumothorax seen. Electronically signed by: Man Becerra M.D. Narrative 01/01/2024 11:36 AM FABRICATION AND LAYOUT CRAFTSMAN EXAMINATION: XR CHEST 1 VIEW HISTORY: The [...] Result * POCT glucose (01/01/2024 10:54 AM FABRICATION AND LAYOUT CRAFTSMAN) Glucose, POC 122 70 - 199 mg/dL Blood 01/01/2024 10:5 4 AM FABRICATION AND LAYOUT CRAFTSMAN 01/01/2024 10:54 AM FABRICATION AND LAYOUT CRAFTSMAN Caren Caputo MD LAB POCT ORDERABLES - DEVICE Final Result Performing Organization Address City/State/[facility] Phone Number [facility] [address] [facility] Department [place] [address] * PA AN ELECTIVE ENDOTRACHEAL AIRWAY (01/01/2024 9:06 AM FABRICATION AND LAYOUT CRAFTSMAN) Narrative Elham Barber AA - 01/01/2024 9:06 AM FABRICATION AND LAYOUT CRAFTSMAN Elham Barber AA ? 01/01/2024 ??9:07 AM [...] Result * POCT glucose (01/01/2024 7:21 AM FABRICATION AND LAYOUT CRAFTSMAN) Glucose, POC 89 70 - 199 mg/dL Blood 01/01/2024 7:21 AM FABRICATION AND LAYOUT CRAFTSMAN 01/01/2024 7:21 AM FABRICATION AND LAYOUT CRAFTSMAN us Caren Caputo MD LAB POCT ORDERABLES - DEVICE Final Result Performing Organization Address City/State/[facility] Co fl Phone Number [facility] [phone] Department [place] [address] * eGFR (12/24/2023 11:05 AM FABRICATION AND LAYOUT CRAFTSMAN) eGFR >90 >=60 mL/min/1. 73 m2 Comment: [...] reviewed 2020. Blood 12/24/2023 11:0 5 AM FABRICATION AND LAYOUT CRAFTSMAN 12/24/2023 11:05 AM FABRICATION AND LAYOUT CRAFTSMAN Ivet Hoyos NP LAB BLOOD ORDERABLES Final Res ult [facility] [address] Department of Laboratories [place] [phone] * Basic metabolic panel (12/24/2023 11:05 AM FABRICATION AND LAYOUT CRAFTSMAN) Sodium 145 135 - 145 mmol/L Potassium, [...] mg/dL [facility] Blood 12/24/2023 11:0 5 AM FABRICATION AND LAYOUT CRAFTSMAN 12/24/2023 11:05 AM FABRICATION AND LAYOUT CRAFTSMAN Ivet Hoyos NP LAB BLOOD ORDERABLES Final Res ult [facility] [id number] Department [place] [address] * Differential, auto (12/24/2023 10:56 AM FABRICATION AND LAYOUT CRAFTSMAN) Neutrophil abs 3.1 1.5 - 6.5 K/cumm Imm gran abs 0.0 0.0 - 0.1 K/cumm [facility] Lymphocyte abs 1.6 0.8 - 3.3 K/cumm [facility] Monocyte abs 0.6 0.2 - 0.8 K/cumm [facility] Eosinophil abs 0.1 0.0 - 0.5 K/cumm [facility] Basophil abs 0.0 0.0 - 0.1 K/cumm [facility] Neutrophil pct 57.4 % [facility] Comment: Interpretive Data Percent cell count reference ranges are not reported, since discordance with absolute values may lead to misinterpretation of CBC data. Current Interpretive Data was last revised on 2017. Imm gran pct 0.4 % [facility] Comment: Interpretive Data Percent cell count reference ranges are not reported, since discordance with absolute values may lead to misinterpretation of CBC data. Current Interpretive Data was last revised on 2017. Lymphocyte pct 29.0 % [facility] Comment: Interpretive Data Percent cell count reference ranges are not reported, since discordance with absolute values may lead to misinterpretation of CBC data. Current Interpretive Data was last revised on 2017. Monocyte pct 11.1 % [facility] Comment: Interpretive Data Percent cell count reference ranges are not reported, since discordance with absolute values may lead to misinterpretation of CBC data. Current Interpretive Data was last revised on 2017. Eosinophil pct 1.7 % [facility] Comment: Interpretive Data Percent cell count reference [...] on 2017. Blood 12/24/2023 10:5 6 AM FABRICATION AND LAYOUT CRAFTSMAN 12/24/2023 11:08 AM FABRICATION AND LAYOUT CRAFTSMAN us Ivet Hoyos [employer]ER [employer] REGULATOR [employer] SUPERVISOR LAB BLOOD ORDERABLES Final Res ult Performing Organization Address [facility] Co de Phone Number [facility] [phone] Department [place] [address] * Urinalysis reflex to microscopic and culture Urine, clean voided (12/24/2023 10:56 AM FABRICATION AND LAYOUT CRAFTSMAN) Color, ur Yellow Yellow Clarity, ur Clear [...] tendency for uric acid stone formation. Source: [facility] [place] Current Interpretive Data was last revised on [...] CERNER Urine, clean voided 12/24/2023 10:56 AM FABRICATION AND LAYOUT CRAFTSMAN 12/24/2023 12:24 PM FABRICATION AND LAYOUT CRAFTSMAN us Caren Caputo MD LAB MICROBIOLOGY - GEN ERAL ORDERABLES Final Result Performing Organization Address [facility]/ZIP Co de Phone Number [facility] [phone] Department [place] [address] * (ABNORMAL) CBC with auto differential (12/24/2023 10:56 AM FABRICATION AND LAYOUT CRAFTSMAN) WBC 5.4 3.8 - 9.9 K/cumm Hgb 12.7 11.9 - 15.5 g/dL [facility] Hct 38.8 35.6 - 45.5 % [facility] Plt 159 150 - 400 K/cumm [facility] MPV 9.4 9.1 - 12.3 fL [facility] RBC 3.58(L) 3.90 - 5.20 M/cumm [facility] MCV 108.4(H) 81.3 - 96.4 fL [facility] MCH 35.5(H) 27.1 - 33.3 pg [facility] MCHC 32.7 32.3 - 35.7 g/dL [facility] RDW CV 12.3 11.1 - 14.9 % [facility] RDW SD 49.0(H) 35.7 - 48.1 fL [facility] NRBC abs 0.00 0.00 - 0.01 K/cumm [facility] Blood 12/24/2023 10:5 6 AM FABRICATION AND LAYOUT CRAFTSMAN 12/24/2023 11:08 AM FABRICATION AND LAYOUT CRAFTSMAN Ivet Hoyos NP LAB BLOOD ORDERABLES Final Res ult Performing Organization Address City/State/[facility] Phone Number [facility] [phone] Department [place] [address] * Hemoglobin A1c (12/24/2023 10:56 AM FABRICATION AND LAYOUT CRAFTSMAN) [facility] Hgb A1C 5.0 4.0 - 5.6 % Estimated Average Glucose 97 mg/dL [facility] Comment: The ADA recommends reporting an estimated Average Glucose (eAG) with all Hemoglobin A1c results using the equation derived from a study of 507 normal and diabetic adults. ??Minority populations were underrepresented and children were not included. ?? (Diabetes Care 31:9614-5639, 2008). ??The eAG is not equivalent to a fasting glucose. Blood 12/24/2023 10:5 6 AM FABRICATION AND LAYOUT CRAFTSMAN 12/24/2023 11:08 AM FABRICATION AND LAYOUT CRAFTSMAN Ivet Hoyos NP LAB BLOOD ORDERABLES Final [place] [id number] [place] Department [place] [address] * Dexa Axial and Forearm Bone Density Scan (09/08/2022 1:34 PM CDT) Anatomical Region Laterality Modality Wrist, Body N/A Other 09/09/2022 6:09 AM CDT Narrative 09/09/2022 6:11 AM CDT EXAM DESCRIPTION: DEXA AXIAL AND FOREARM BONE DENSITY SCAN REASON FOR STUDY: 62 y/o ?? year old ??F ??with given history of: ?? Hyperparathyroidism. ??Postmenopausal status. ??Osteoporosis. ? Shadow Graph Weight Operator/Model: [employer] Discovery SL (S/N [id number]) CLINICAL INFORMATION: Current height: ??63.5 ??inches ? [...] AM T: ??09/09/2022 6:11 AM Report ID: [id number] Reading Location: ??[id number] Procedure Note Cecy Ratliff MD - 09/09/2022 EXAM DESCRIPTION: DEXA AXIAL AND FOREARM BONE DENSITY SCAN REASON FOR STUDY: 62 y/o year old F with given history of: Hyperparathyroidism. Postmenopausal status. Osteoporosis. Shadow Graph Weight Operator/Model: [employer] Discovery SL ([id number]/N [id number]) CLINICAL INFORMATION: Current height: 63.5 inches Maximum [...] Cecy Ratliff M.D. TW: TW Report ID: [id number] Reading Location: [id number] us Dylan To MD IMG DXA PROCEDURES [...] on 2017. Triglycerides 36 <=149 mg/dL [facility] Comment: Interpretive Data Ages < [...] revised on 2017. HDL 72 >=40 mg/dL [facility] Comment: Interpretive Data Ages < or = [...] on 2017. LDL, calculated 60 <=129 mg/dL [facility] Comment: Interpretive Data Ages < or [...] revised on 2017. Non-HDL Cholesterol 67 mg/dL [facility] Comment: Interpretive Data Ages < or = [...] last revised on 2017. [facility] Blood 10/10/2021 1:52 PM CDT 10/10/2021 2:07 PM CDT us Mauricio Chaudhary MD LAB BLOOD ORDERABLES Final Result [facility] Department [place] [address] from Last 3 Months or Most Recently Relevant to Health Maintenance Insurance [place] [facility] [facility] [place] Advance Directives For more information, please contact: [phone] * Full Code (Latest Code Status on File) Date Activated Date Inactivated Comments 10/10/2021 5:37 PM 10/11/2021 8:50 PM * Full Code Date Activated Date Inactivated Comments 08/18/2017 6:39 PM 08/22/2017 3:42 PM Care Teams T[employer]er Relationship Specialty Start Date End Date Destinee Conroy MD [address] [facility] [place] [id number] PCP - General 05/05/16 Desire Sams, RN Registered Nurse 04/03/17 Roscoe Mccollum MD [address] [place] [address] [address] Anesthesiologist Pain Management 12/21/21
--- OUTSIDE RECORDS SUMMARY | 2024-03-07 01:58 | XMS_ITS | Referral Summary ---
Author Organization [facility] Address [address] [place] [address] Care Team Providers Care Technical Applications Specialist Name Role Phone Destinee Conroy MD Primary Care Provider + Desire Sams RN Unavailable Un available Roscoe Mccollum MD Unavailable [phone] Encounters Date Type Department Care Team Description 02/26/2024 Telephone [facility] - [facility] [address] [facility] 11th [place] [address] [place] [address] Faby Huerta, 02/18/2024 1:15 PM STOCKROOM SUPERVISOR Office Visit [facility] [address] [facility] [address] [place] [address] Kendrick Hernandez MD Psychophysiological insomnia (Primary Dx); MEREDITH (obstructive sleep apnea); Hypersomnia with sleep apnea 01/17/2024 3:40 PM STOCKROOM SUPERVISOR Office Visit [facility]) - [facility] ENT [address] [facility] [address] [place] [address] Caren Caputo MD S/P insertion of hypoglossal nerve stimulator (Primary Dx); MEREDITH (obstructive sleep apnea) 01/07/2024 1:23 PM STOCKROOM SUPERVISOR - 01/07/2024 6:24 PM STOCKROOM SUPERVISOR Emergency [facility] Emergency Department [address] [place] [address] Ayla Ambrose MD Galicia, Edgar E., MD Post-operative pain (Primary Dx); Secondary hypertension; Acute nonintractable headache, unspecified headache type Discharge Disposition: Discharge to home or self care 01/01/2024 8:30 AM STOCKROOM SUPERVISOR - 01/01/2024 11:00 AM STOCKROOM SUPERVISOR Surgery [facility] Operating Room [address] [place] [address] Caren Caputo MD INSPIRE HYPOGLOSSAL NERVE STIMULATOR IMPLANT 01/01/2024 8:21 AM STOCKROOM SUPERVISOR Anesthesia Event [facility] Operating Room [address] [place] [address] Evette Huddleston Jr., MD Barnhart, Lynlee Jo, NP 01/01/2024 6:29 AM STOCKROOM SUPERVISOR - 01/01/2024 1:16 PM STOCKROOM SUPERVISOR Hospital Encounter [facility] Operating Room [address] [place] [address] Caren Caputo MD MEREDITH (obstructive sleep apnea) (Primary Dx) Discharge Disposition: Discharge to home or self care 12/26/2023 Telephone [facility] [address] [place] [address] [address] [place] [address] Kendrick Hernandez MD 12/26/2023 Telephone [facility] [address] [place] [address] [address] [place] [address] Kendrick Hernandez MD 12/24/2023 9:45 AM STOCKROOM SUPERVISOR Pre-Admission Testing 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 Never 10/13/2021 Do you belong to [...] place to sleep or slept in a custodial (including now)? No 10/13/2021 Personal Safety Answer Date Recorded Have you ever been in or are you currently in a harmful physical or emotional relationship or is someone making you feel afraid or unsafe? Denies 01/07/2024 Comments No Sex and Gender Information Value Date Recorded Sex Assigned at Not on file Legal Sex Female 12:46 AM STOCKROOM SUPERVISOR Gender Identity Female 04/08/2019 6:15 AM STOCKROOM SUPERVISOR Sexual Orientation Straight 04/08/2019 6: 15 AM STOCKROOM SUPERVISOR Occupation Industry Job Start Date Job End Date On Disability Not on file Not on file Not on file Last Filed Vital Signs Vital Sign Reading Time Taken Comments Blood Pressure 131/81 02/18/2024 1:01 PM STOCKROOM SUPERVISOR Pulse 93 02/18/2024 1:01 PM STOCKROOM SUPERVISOR Temperature 36.2 ??C (97.2 ??F) 01/07/2024 10:[address] Respiratory Rate 18 01/07/2024 6:00 PM STOCKROOM SUPERVISOR Oxygen Saturation 97% 02/18/2024 1:01 PM STOCKROOM SUPERVISOR Inhaled Oxygen Concentration - - Weight 85.3 kg (188 lb) 02/18/2024 1:01 PM STOCKROOM SUPERVISOR Height 165.1 cm (5' 5 ) 02/18/2024 1:01 PM STOCKROOM SUPERVISOR Body Mass Index 31.28 02/18/2024 1:01 PM STOCKROOM SUPERVISOR Plan of Treatment Not on file Medical Devices Implanted Type Area Spare Parts Clerk Device Identifier Shelf Expiration Date Model / Serial / Lot [employer] Cruzito 180-223 Contour 6fr 26cm Large Inner Lumen Low Profile Bladder Lei Taper Latex Free - [id number] Implanted:Qty: 1 on 04/23/2018 by Christopher Her MD at [facility] Stent Right: Ureter [employer] Cruzito 11/19/2020 180-223 / / [id number] Plates Screws N/A: Neck [employer] Lead Neurostimulator Sleep Apnea Thoracic Permanent Respiratory Sensing Inspire 43cm 4340 - [id number] - [id number] Implanted:Qty: 1 on 01/01/2024 by Caern Caputo MD at [facility] N/A: Chest [employer] 07/21/2026 4340 / [id number] / [employer] Inspire 3 Electrode Cuff Tunnel José Lead Neurostimulator Sterile 4063 - [id number] - [id number] Implanted:Qty: 1 on 01/01/2024 by aCren Caputo MD at [facility] N/A: Neck [employer] 01/22/2026 4063 / [id number] / [employer] Inspire Generator 3028 - [id number] - [id number] Implanted:Qty: 1 on 01/01/2024 by Caren Caputo MD at [facility] N/A: Chest [employer] 07/22/2026 3028 / [id number] / Procedures Procedure Name Priority Date/Time Associated Diagnosis Comments POCT GLUCOSE DEVICE Routine 01/07/2024 4 :33 PM STOCKROOM SUPERVISOR CTA HEAD NECK W WO CONTRAST ED 01/07/2024 4:19 PM STOCKROOM SUPERVISOR TROPONIN T HIGH-SENSITIVITY 4-HR Timed 01/07/2024 3:24 PM STOCKROOM SUPERVISOR TROPONIN T HIGH-SENSITIVITY 2-HOUR STAT 01/07/2024 1:55 PM STOCKROOM SUPERVISOR XR CHEST PA LATERAL 2 VIEWS ED 01/07/2024 11:29 AM STOCKROOM SUPERVISOR EGFR STAT 01/07/2024 11:11 AM STOCKROOM SUPERVISOR DIFFERENTIAL AUTO STAT 01/07/2024 11: 11 AM STOCKROOM SUPERVISOR TROPONIN T HIGH-SENSITIVITY SERIES (BASELINE, 2HR, 4HR, 6HR) STAT 01/07/2024 11:11 AM STOCKROOM SUPERVISOR COMPREHENSIVE METABOLIC PANEL STAT 01/07/2024 11:11 AM STOCKROOM SUPERVISOR CBC WITH AUTO DIFFERENTIAL STAT 01/07/2024 11:11 AM STOCKROOM SUPERVISOR ECG 12-LEAD STAT 01/07/2024 11:02 AM STOCKROOM SUPERVISOR POCT GLUCOSE DEVICE Routine 01/01/2024 1 1:34 AM STOCKROOM SUPERVISOR XR NECK SOFT TISSUE ED Urgent/IP Urgent 01/01/2024 11:19 AM STOCKROOM SUPERVISOR XR CHEST 1 VIEW ED Urgent/IP Urgent 01/01/2024 11:19 AM STOCKROOM SUPERVISOR POCT GLUCOSE DEVICE Routine 01/01/2024 1 0:54 AM STOCKROOM SUPERVISOR [place] AN ELECTIVE ENDOTRACHEAL AIRWAY Routine 01/01/2024 9:06 AM STOCKROOM SUPERVISOR INSPIRE HYPOGLOSSAL NERVE STIMULATOR IMPLANT - INSERTION 01/01/2024 8:20 AM STOCKROOM SUPERVISOR MEREDITH (obstructive sleep apnea) Special Needs DR CAPUTO REQUESTS 150 MINS FOR CASE/10-14 DAYS POST OP POCT GLUCOSE DEVICE Routine 01/01/2024 7 :21 AM STOCKROOM SUPERVISOR EGFR Routine 12/24/2023 11:05 AM STOCKROOM SUPERVISOR Pre-op testing BASIC METABOLIC PANEL Routine 12/24/2023 11:05 AM STOCKROOM SUPERVISOR Pre-op testing DIFFERENTIAL AUTO Routine 12/24/2023 10: 56 AM STOCKROOM SUPERVISOR Pre-op testing CBC WITH AUTO DIFFERENTIAL Routine 12/24/2023 10:56 AM STOCKROOM SUPERVISOR Pre-op testing HEMOGLOBIN A1C Routine 12/24/2023 10:56 AM STOCKROOM SUPERVISOR Type 2 diabetes mellitus with other specified complication, 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) Pre-op testing URINALYSIS AND REFLEX TO MICROSCOPIC AND CULTURE Routine 12/24/2023 10:56 AM STOCKROOM SUPERVISOR Pre-op testing DEXA AXIAL AND FOREARM BONE [...] Results * POCT glucose (01/07/2024 4:33 PM STOCKROOM SUPERVISOR) Glucose, POC 80 70 - 199 mg/dL Blood 01/07/2024 4:33 PM STOCKROOM SUPERVISOR 01/07/2024 4:33 PM STOCKROOM SUPERVISOR us Mars Montano MD LAB POCT ORDERABLES - DEVICE Final Result [facility] ([place]) [address] [facility] Department [place] [address] * CTA Head Neck W WO Contrast (01/07/2024 4:19 PM STOCKROOM SUPERVISOR) Anatomical Region Laterality Modality Head and Neck N/A Computed Tomogra phy 01/07/2024 4:43 PM STOCKROOM SUPERVISOR Narrative 01/07/2024 5:02 PM STOCKROOM SUPERVISOR EXAM DESCRIPTION: ?? CTA HEAD NECK W [...] prominent at C6-C7 where there is likely uhcy-vt-uofzvlao spinal canal stenosis. IMPRESSION: BRAIN: No acute [...] PM T: ??01/07/2024 5:02 PM Report ID: [id number] Reading Location: ??[id number] Procedure Note Nigel Mei MD - 01/07/2024 [...] There is an implantable medical generator within [facility] which per provided clinical history represents a [...] prominent at C6-C7 where there is likely kjvt-tk-uvuksuxb spinal canal stenosis. IMPRESSION: BRAIN: No acute intracranial process identified. Chronic left basal ganglia infarct. INTRACRANIAL CTA: 1. No large vessel occlusion or significant intracranial stenosis identified. 2. Mild luminal irregularity of the left middle cerebral artery [id number] without stenosis likely represents intracranial atherosclerotic disease. [...] Nigel Mei M.D. MM: MM Report ID: [id number] Reading Location: [place] [address] [facility] PROCEDURES F inal Result * Troponin T high-sensitivity 4-hour (01/07/2024 3:24 PM STOCKROOM SUPERVISOR) Trop T hs <6 <=14 ng/L Comment: Interpretive Data For further hscTnT resources including the diagnostic algorithm and an aid in interpretation, copy and paste this link: https://nrl.testcatalog.org/show/hsTrop Current Interpretive Data last revised 2019. Trop T hs delta 0 ng/L [facility] ([place]) Trop T hs interp Insignificant [facility] ([place]) Blood 01/07/2024 3:24 PM STOCKROOM SUPERVISOR 01/07/2024 3:26 PM STOCKROOM SUPERVISOR us Ayla Ambrose MD LAB BLOOD ORDERABLE S Final Result Performing Organization Address City/[facility]/ZIP Co de Phone Number [facility] ([place]) [address] [facility] Department [place] [address] * Troponin T high-sensitivity 2-hour (01/07/2024 1:55 PM STOCKROOM SUPERVISOR) Trop T hs <6 <=14 ng/L Comment: Interpretive Data For further hscTnT resources including the diagnostic algorithm and an aid in interpretation, copy and paste this link: https://nrl.testcatalog.org/show/hsTrop Current Interpretive Data last revised 2019. Trop T hs delta 0 ng/L [facility] ([place]) Trop T hs interp Insignificant [facility] ([place]) Blood 01/07/2024 1:55 PM STOCKROOM SUPERVISOR 01/07/2024 1:56 PM STOCKROOM SUPERVISOR us Ayla Ambrose MD LAB BLOOD ORDERABLE S Final Result Performing Organization Address [facility] Co de Phone Number [facility] ([place]) [address] [facility] Department [place] [address] * XR Chest PA Lateral 2 Views (01/07/2024 11:29 AM STOCKROOM SUPERVISOR) Anatomical Region Laterality Modality Body, Chest N/A Computed Radiogr aphy 01/07/2024 11:3 7 AM STOCKROOM SUPERVISOR Narrative 01/07/2024 11:41 AM STOCKROOM SUPERVISOR EXAM DESCRIPTION: XR CHEST PA LATERAL 2 [...] AM T: ??01/07/2024 11:41 AM Report ID: [id number] Reading Location: ??[id number] Procedure Note Destinee Pichardo MD - 01/07/2024 [...] Destinee Pichardo M.D. AG: ZITA Report ID: [id number] Reading Location: [id number] Ayla Ambrose MD IMG XR PROCEDURES F inal Result * Troponin T high-sensitivity series (baseline, 2hr, 4hr, 6hr) (01/07/2024 11:11 AM STOCKROOM SUPERVISOR) Trop T hs <6 <=14 ng/L Comment: Interpretive Data For further hscTnT resources including the diagnostic algorithm and an aid in interpretation, copy and paste this link: https://nrl.testcatalog.org/show/hsTrop Current Interpretive Data last revised 2019. Blood 01/07/2024 11:1 1 AM STOCKROOM SUPERVISOR 01/07/2024 11:14 AM STOCKROOM SUPERVISOR Ayla Ambrose MD LAB BLOOD ORDERABLE S Final Result Performing Organization Address City/State/[facility] Co de Phone Number [facility] [place]) [address] [facility] [place] [address] * eGFR (01/07/2024 11:11 AM STOCKROOM SUPERVISOR) Pathologist [facility] eGFR >90 >=60 mL/min/1. 73 m2 Comment: [...] reviewed 2020. Blood 01/07/2024 11:1 1 AM STOCKROOM SUPERVISOR 01/07/2024 11:14 AM STOCKROOM SUPERVISOR us Ayla Ambrose MD LAB BLOOD ORDERABLE S Final Result [facility] ([place]) [address] [facility] Department [place] [address] * Differential, auto (01/07/2024 11:11 AM STOCKROOM SUPERVISOR) Neutrophil abs 3.3 1.5 - 6.5 K/cumm [...] on 2017. Blood 01/07/2024 11:1 1 AM STOCKROOM SUPERVISOR 01/07/2024 11:15 AM STOCKROOM SUPERVISOR us Ayla Ambrose MD LAB BLOOD ORDERABLE S Final Result [facility] ([place]) [address] [facility] Department [place] [address] * (ABNORMAL) CBC with auto differential (01/07/2024 11:11 AM STOCKROOM SUPERVISOR) WBC 5.9 3.8 - 9.9 K/cumm Hgb [...] ([place]) Blood (Blood, Venous) 01/07/2024 11:11 AM STOCKROOM SUPERVISOR 01/07/2024 11:15 AM STOCKROOM SUPERVISOR us Ayla Ambrose MD LAB BLOOD ORDERABLE S Final Result [facility] ([place]) [address] [facility] Department [place] [address] * (ABNORMAL) Comprehensive metabolic panel (01/07/2024 11:11 AM STOCKROOM SUPERVISOR) Sodium 141 135 - 145 mmol/L Potassium, [...] [facility] ([place]) Blood 01/07/2024 11:1 1 AM STOCKROOM SUPERVISOR 01/07/2024 11:14 AM STOCKROOM SUPERVISOR Ayla Ambrose MD LAB BLOOD ORDERABLE S Final Result Performing Organization Address City/[facility] Co de Phone Number [facility] ([place]) [address] [facility] Department [place] [address] * ECG 12 lead (01/07/2024 11:02 AM STOCKROOM SUPERVISOR) 01/07/2024 11:0 2 AM STOCKROOM SUPERVISOR Narrative [facility] - 01/08/2024 1:40 AM STOCKROOM SUPERVISOR Vent Rate: 76 bpm RR Interval: 786 msec [place] Interval: 142 msec QRS Duration: 84 msec QT Interval: 371 msec QTC Interval: 401 msec P-R-T [place]: 48 - 22 - 67 degrees IMPRESSION: SINUS RHYTHM MINIMAL VOLTAGE CRITERIA FOR LVH, CONSIDER NORMAL VARIANT ??[MEETS CRITERIA IN ONE OF: R(aVL), S(V1), R(V5), R(V5/V6)+S(V1)] NONSPECIFIC T-WAVE ABNORMALITY BORDERLINE ECG Electronically Signed By: Supa Ernandez MD Ayla Ambrose MD ECG ORDERABLES Fin al Result Performing Organization Address City/[facility]/ZIP Co de Phone Number [facility] * POCT glucose (01/01/2024 11:34 AM STOCKROOM SUPERVISOR) Glucose, POC 131 70 - 199 mg/dL Blood 01/01/2024 11:3 4 AM STOCKROOM SUPERVISOR 01/01/2024 11:34 AM STOCKROOM SUPERVISOR Caren Caputo MD LAB POCT ORDERABLES - DEVICE Final Result [facility] [place] [address] [facility] Department [place] [address] * XR Neck Soft Tissue (01/01/2024 11:19 AM STOCKROOM SUPERVISOR) Anatomical Region Laterality Modality Head and Neck N/A Computed Radiogr aphy 01/01/2024 12:0 1 PM STOCKROOM SUPERVISOR Impressions 01/01/2024 12:01 PM STOCKROOM SUPERVISOR Postoperative change of hypoglossal nerve stimulator as described. Electronically signed by: Octavia Chavez M.D. Narrative 01/01/2024 12:01 PM STOCKROOM SUPERVISOR EXAMINATION: XR NECK SOFT TISSUE HISTORY: lateral [...] Chest 1 Vw Portable (01/01/2024 11:19 AM STOCKROOM SUPERVISOR) Anatomical Region Laterality Modality Body, Chest N/A Computed Radiogr aphy 01/01/2024 11:3 6 AM STOCKROOM SUPERVISOR Impressions 01/01/2024 11:36 AM STOCKROOM SUPERVISOR No pneumothorax seen. Electronically signed by: Man Becerra M.D. Narrative 01/01/2024 11:36 AM STOCKROOM SUPERVISOR EXAMINATION: XR CHEST 1 VIEW HISTORY: The [...] Result * POCT glucose (01/01/2024 10:54 AM STOCKROOM SUPERVISOR) Glucose, POC 122 70 - 199 mg/dL Blood 01/01/2024 10:5 4 AM STOCKROOM SUPERVISOR 01/01/2024 10:54 AM STOCKROOM SUPERVISOR Caren Caputo MD LAB POCT ORDERABLES - DEVICE Final Result [facility] [address] Department [place] [address] * [place] AN ELECTIVE ENDOTRACHEAL AIRWAY (01/01/2024 9:06 AM STOCKROOM SUPERVISOR) Narrative Elham Barber AA - 01/01/2024 9:06 AM STOCKROOM SUPERVISOR Elham Barber AA ? 01/01/2024 ??9:07 AM [...] Result * POCT glucose (01/01/2024 7:21 AM STOCKROOM SUPERVISOR) [facility] Glucose, POC 89 70 - 199 mg/dL Blood 01/01/2024 7:21 AM STOCKROOM SUPERVISOR 01/01/2024 7:21 AM STOCKROOM SUPERVISOR us Caren Caputo MD LAB POCT ORDERABLES - DEVICE Final Result [facility] [address] Department [place] [address] * eGFR (12/24/2023 11:05 AM STOCKROOM SUPERVISOR) [facility] eGFR >90 >=60 mL/min/1. 73 m2 Comment: [...] reviewed 2020. Blood 12/24/2023 11:0 5 AM STOCKROOM SUPERVISOR 12/24/2023 11:05 AM STOCKROOM SUPERVISOR us Ivet Hoyos SENIOR MASTER SCHEDULER LAB BLOOD ORDERABLES Final Res ult [facility] [address] Department [place] [address] * Basic metabolic panel (12/24/2023 11:05 AM STOCKROOM SUPERVISOR) Sodium 145 135 - 145 mmol/L Potassium, pl 4.0 3.3 - 4.9 mmol/L [facility] Chloride 109 97 - 110 mmol/L [facility] CH CO2 28 22 - 32 mmol/L [facility] CH Anion gap 8 2 - 15 mmol/L [facility] BUN 19 6 - 25 mg/dL [facility] Creatinine 0.68 0.60 - 1.10 mg/dL [facility] Glucose 72 70 - 199 mg/dL [facility] Comment: Interpretive Data Fasting glucose >/= [...] 2022. Calcium 9.1 8.5 - 10.3 mg/dL [facility] Blood 12/24/2023 11:0 5 AM STOCKROOM SUPERVISOR 12/24/2023 11:05 AM STOCKROOM SUPERVISOR us Ivet Hoyos SENIOR MASTER SCHEDULER LAB BLOOD ORDERABLES Final Res ult [facility] [address] [address] Department [place] [address] * Differential, auto (12/24/2023 10:56 AM STOCKROOM SUPERVISOR) Neutrophil abs 3.1 1.5 - 6.5 K/cumm Imm gran abs 0.0 0.0 - 0.1 K/cumm [facility] Lymphocyte abs 1.6 0.8 - 3.3 K/cumm [facility] Monocyte abs 0.6 0.2 - 0.8 K/cumm [facility] Eosinophil abs 0.1 0.0 - 0.5 K/cumm [facility] Basophil abs 0.0 0.0 - 0.1 K/cumm [facility] Neutrophil pct 57.4 % [facility] Comment: Interpretive Data Percent cell count reference ranges are not reported, since discordance with absolute values may lead to misinterpretation of CBC data. Current Interpretive Data was last revised on 2017. Imm gran pct 0.4 % [facility] Comment: Interpretive Data Percent cell count [...] on 2017. Blood 12/24/2023 10:5 6 AM STOCKROOM SUPERVISOR 12/24/2023 11:08 AM STOCKROOM SUPERVISOR us Ivet Hoyos SENIOR MASTER SCHEDULER LAB BLOOD ORDERABLES Final Res ult [facility] [address] [address] Department [place] [address] * Urinalysis reflex to microscopic and culture Urine, clean voided (12/24/2023 10:56 AM STOCKROOM SUPERVISOR) Color, ur Yellow Yellow Clarity, ur Clear Clear [facility] Specific gravity, ur 1.017 1.003 - 1.030 [facility] pH, urine 6.0 [facility] Comment: Interpretive Data ? Urine pH is affected by diet, medications, systemic acid-base disturbances, and renal tubular function. ??pH may affect urinary stone formation. ??For example, urine pH below 6.0 may help reduce the tendency for calcium phosphate stones and pH greater than 6.0 may reduce the tendency for uric acid stone formation. Source: [facility] [place] Current Interpretive Data was last revised on [...] [facility] Urine, clean voided 12/24/2023 10:56 AM STOCKROOM SUPERVISOR 12/24/2023 12:24 PM STOCKROOM SUPERVISOR us Caren Capuot MD LAB MICROBIOLOGY - GEN ERAL ORDERABLES Final Result [facility] [address] [address] Department [place] [address] * (ABNORMAL) CBC with auto differential (12/24/2023 10:56 AM STOCKROOM SUPERVISOR) WBC 5.4 3.8 - 9.9 K/cumm Hgb [...] [facility] CH Blood 12/24/2023 10:5 6 AM STOCKROOM SUPERVISOR 12/24/2023 11:08 AM STOCKROOM SUPERVISOR us Ivet Hoyos NP LAB BLOOD ORDERABLES Final Res ult [facility] [address] [address] Department [place] [address] * Hemoglobin A1c (12/24/2023 10:56 AM STOCKROOM SUPERVISOR) Hgb A1C 5.0 4.0 - 5.6 % Estimated Average Glucose 97 mg/dL [facility] Comment: The ADA recommends reporting an estimated Average Glucose (eAG) with all Hemoglobin A1c results using the equation derived from a study of 507 normal and diabetic adults. ??Minority populations were underrepresented and children were not included. ?? (Diabetes Care 31:9672-1133, 2008). ??The eAG is not equivalent to a fasting glucose. Blood 12/24/2023 10:5 6 AM STOCKROOM SUPERVISOR 12/24/2023 11:08 AM STOCKROOM SUPERVISOR Ivet Hoyos SENIOR MASTER SCHEDULER LAB BLOOD ORDERABLES Final Res ult Performing Organization Address [facility] Co de Phone Number [facility] [address] Department [place] [address] * Dexa Axial and Forearm Bone Density Scan (09/08/2022 1:34 PM CDT) Anatomical Region Laterality Modality Wrist, Body N/A Other 09/09/2022 6:09 AM CDT Narrative 09/09/2022 6:11 AM CDT EXAM DESCRIPTION: DEXA AXIAL AND FOREARM BONE DENSITY SCAN REASON FOR STUDY: 62 y/o ?? year old ??F ??with given history of: ?? Hyperparathyroidism. ??Postmenopausal status. ??Osteoporosis. ? Spare Parts Clerk/Model: [employer] SL (S/N 52744) CLINICAL INFORMATION: Current height: ??63.5 ??inches ? [...] AM T: ??09/09/2022 6:11 AM Report ID: [id number] Reading Location: ??[id number] Procedure Note Cecy Ratliff MD - 09/09/2022 EXAM DESCRIPTION: DEXA AXIAL AND FOREARM BONE DENSITY SCAN REASON FOR STUDY: 62 y/o year old F with given history of: Hyperparathyroidism. Postmenopausal status. Osteoporosis. Spare Parts Clerk/Model: [employer] (S/N 46512) CLINICAL INFORMATION: Current height: 63.5 inches Maximum [...] Cecy Ratliff M.D. TW: BAKARI Report ID: [id number] Reading Location: [place] [address] Dylan Raul To MD IM DXA PROCEDURES [...] Cholesterol 139 30 - 199 mg/dL [facility] Comment: Interpretive Data Ages < or = [...] on 2017. Triglycerides 36 <=149 mg/dL [facility] Comment: Interpretive Data Ages < or = [...] on 2017. HDL 72 >=40 mg/dL [facility] Comment: Interpretive Data Ages < or = [...] 2017. LDL, calculated 60 <=129 mg/dL [facility] Comment: Interpretive Data Ages < or = [...] BLOOD ORDERABLES Final Result [facility] Department [place] [address] from Last 3 Months or Most Recently Relevant to Health Maintenance Insurance [place] Advance Directives For more information, please contact: [phone] * Full Code (Latest Code Status on File) Date Activated Date Inactivated Comments 10/10/2021 5:37 PM 10/11/2021 8:50 PM * Full Code Date Activated Date Inactivated Comments 08/18/2017 6:39 PM 08/22/2017 3:42 PM Care Teams Technical Applications Specialist Relationship Specialty Start Date End Date Destinee Conroy MD [address] [place] [address] PCP - General 05/05/16 Desire Sams, BRICE Registered Nurse 04/03/17 Roscoe Mccollum MD [address] [place] [address] [address] Anesthesiologist Pain Management 12/21/21
--- OUTSIDE RECORDS SUMMARY | 2024-03-07 01:58 | XMS_ITS | Encounter Summary ---
Author Organization [facility] Address [address] [place] [address] Phone Care Team Providers Care Ebd Special Education Teacher Name Role Phone Jona Bravo MD Primary Care Provider + Desire Sams RN Unavailable Un available Pooja [place] LCSW Unavailable [phone] Roscoe Mccollum MD Unavailable [phone] Encounter Details Date Type Department Care Team [...] on file Legal Sex Female 12:46 AM STEAM PLANT CONTROL ROOM OPERATOR Gender Identity Female 04/08/2019 6:15 AM STEAM PLANT CONTROL ROOM OPERATOR Sexual Orientation Straight 04/08/2019 6: 15 AM STEAM PLANT CONTROL ROOM OPERATOR Occupation Industry Job Start Date Job End [...] on filedocumented in this encounter Care Teams Ebd Special Education Teacher Relationship Specialty Start Date End Date Jona Bravo MD [address] [place] [address] PCP - General 05/05/16 Desire Sams, RN Registered Nurse 04/03/17 Pooja [place], [facility] [address] [facility] ([facility]) Mailstop [phone] [place] [address] [facility] Outpatient Heating And Ventilating Worker 10/12/21 11/09/21 Roscoe Mccollum MD [address] [place] [address] DR THAYER [address] [place] [id number] Anesthesiologist Pain Management 12/21/21 documented as of this encounter
--- OUTSIDE RECORDS SUMMARY | 2024-03-07 01:58 | XMS_ITS | Encounter Summary ---
Author Organization [facility] Address [address] [place] [address] Dr. Quinones: [place] [address] Care Team Providers Care B Operator Name Role Phone Jona Bravo MD Primary Care Provider [phone] Encounter Details Date Type Department Care Team (Late st Contact Info) Description 03/05/2024 External Device Data Initial Department [address] [place] [address] Dr QUINONES: [place] [address] [facility], Social History Tobacco Use Types Packs/Day [...] often do you attend chur ch or confucianism services? 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 Not on file Not on file documented as of this encounter Plan of Treatment Upcoming Encounters Date Type Department Care Team (Late st Contact Info) Description 04/23/2024 1:20 PM CDT Office Visit [address] [place] [id number] Jona Bravo MD [address] [place] [address] [address] [place] [address] 08/25/2024 10:40 AM CDT Office Visit [address] [place] [address] Jona Bravo MD [address] [place] [address] [address] [place] [address] documented as of this encounter Visit Diagnoses Not on filedocumented in this encounter Care Teams B Operator Relationship Specialty Start Date End Date Jona Bravo MD PCP - General Internal Medicine 11/25/15 documented as of this encounter
--- OUTSIDE RECORDS SUMMARY | 2024-03-07 01:58 | XMS_ITS | Encounter Summary ---
Author Organization [facility] Address [address] [place] [address] Care Team Providers Care Ambulatory Care Coordinator Name Role Phone Jona Bravo MD Primary Care Provider [phone] Reason for Visit * Reason Onset Date Comments HFU 10/11/2021 Encounter Details Date Type Department Care Team (Late st Contact Info) Description 10/11/2021 Telephone [facility] Primary Care [address] [place] [address] Jona Bravo MD [address] [place] [address] [address] [place] [address] HFU Social History Tobacco Use [...] often do you attend chur ch or anabaptist services? 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 Patient was scheduled for a hospital follow up with PCP for 10/14/21; caller stated that [facility] wants patients to be seen no sooner than 7 days after discharge; PSA informed patient needs to be seen within 5 days per PCP; caller stated she may advise patient to reschedule. Please call the patient to [facility] and request medical records as it was not mentioned during the call. documented in this encounter Plan of Treatment Upcoming Encounters Date Type Department Care Team (Late st Contact Info) Description 04/23/2024 1:20 PM CDT Office Visit [address] [place] [address] Jona Bravo MD [address] [place] [address] [place] [address] 08/25/2024 10:40 AM CDT Office Visit [address] [place] [address] Jona Bravo MD [address] [place] [address] [address] [place] [address] documented as of this encounter Visit Diagnoses Not on filedocumented in this encounter Additional Health Concerns Assessment Noted Time PHQ-9 Depression Total Score: 2 01/11/20 20 4:07 PM ROBOTICS SYSTEMS ENGINEER documented as of this encounter Care Teams Ambulatory Care Coordinator Relationship Specialty Start Date End Date Jona Bravo MD PCP - General Internal Medicine 11/25/15 documented as of this encounter
--- OUTSIDE RECORDS SUMMARY | 2024-03-07 01:58 | XMS_ITS | Data Portability ---
Author Organization [facility], Main Office Address [address] [place] [address] Assessment No assessment recorded. Plan of Treatment [...] Care in Diabe shahnaz(A DA). Not Available [place] [address] [place], [address], 09/14/2021 06:00:34 09/08/19 22 09/14/2021 VITAM IN [...] /MS is recom dani d: order code 57938 (salty ents >2yrs ). See Note 1 Note 1 For addit ional infor axel valderrama refer to http: //lisa Alston stDia gnost ics.c om/fa q/FAQ 199 (This link is being provi ded for infor laith pereyra/ [place] purpo ses only. ) Not Available [email or web address] [address] [address] [place], [address], 09/14/2021 06:00:33 09/08/19 22 09/14/2021 THYRO ID PANEL WITH TSH T3 uptake 32 % 22-35 normal Not Available [facility] [place] [address] [address] [place], [address], 09/14/2021 06:00:32 09/08/19 22 09/14/2021 THYRO ID PANEL WITH TSH T4 (thyroxine), total 7.4 mcg/d L 5.1-11 .9 normal Not Available [facility] [address] [address] [place], [address], 09/14/2021 06:00:32 09/08/19 22 09/14/2021 THYRO ID PANEL WITH TSH free T4 index (T7) 2.4 1.4-3. 8 normal Not Available [email or web address] [place] [address] [address] [place], [address], 09/14/2021 06:00:32 09/08/1909/14/2021 THYRO ID PANEL WITH TSH TSH 2.72 mIU/L 0.40-4 .50 normal Not Available [email or web address] [address], [address], 09/14/2021 06:00:32 09/08/19 22 09/14/2021 INSUL IN [...] (dete kim, gluli sine) . Not Available [email or web address] [address], [address], 09/14/2021 06:00:31 09/08/1909/14/2021 CORTI JUAN, TOTAL cortisol, total 4.4 mcg/d L normal Refer ence Range : For 8 a.m.( 7-9 a.m.) Speci men: 4.0-2 2.0 Refer ence Range : For 4 p.m.( 3-5 p.m.) Speci men: 3.0-1 7.0 * Pleas e inter pret above resul ts accor dingl y * Not Available [email or web address] [place] [address] [place], [address], 09/14/2021 06:00:30 09/08/1909/14/2021 THYRO ID PEROX IDASE AND THYRO GLOBU HERO ANTIB ODIES thyroglobuli n antibodies <1 IU/mL < or = 1 normal Not Available [address], [address], 09/14/2021 06:00:29 09/08/19 22 09/14/2021 THYRO ID PEROX IDASE AND THYRO GLOBU HERO ANTIB ODIES thyroid peroxidase antibodies 1 IU/mL <9 normal Not Available [address], [address], 09/14/2021 06:00:29 09/08/19 22 09/14/2021 ACTH, PLASM A acth, plasma <5 pg/mL 6-50 low Refer ence range appli es only to speci mens colle cted betwe en 7am-1 0am. Not Available [address], [address], 09/14/2021 06:00:28 09/08/19 22 09/14/2021 COMPR EHENS KRISTYN METAB OLIC PANEL glucose 81 mg/dL 65-99 normal Fasti ng refer ence inter kathy Not Available [address], [address], 09/14/2021 06:00:27 09/08/19 22 09/14/2021 COMPR EHENS KRISTYN METAB OLIC PANEL urea nitrogen (BUN) 23 mg/dL 7-25 normal Not Available [address], [address], 09/14/2021 06:00:27 09/08/19 22 09/14/2021 COMPR EHENS KRISTYN METAB OLIC PANEL creatinine 0.70 mg/dL 0.50-1 .05 normal Not Available [address], [address], 09/14/2021 06:00:27 09/08/19 22 09/14/2021 COMPR EHENS [...] kdoqi /gfr% 5Fcal culat or Not Available [address] [place], [address], 09/14/2021 06:00:27 09/08/19 22 09/14/2021 COMPR EHENS KRISTYN METAB OLIC PANEL BUN/creatini ne ratio not applic able (calc ) 6-22 Not Available [address], [address], 09/14/2021 06:00:27 09/08/19 22 09/14/2021 COMPR EHENS KRISTYN METAB OLIC PANEL sodium 141 mmol/ L 135-14 6 normal Not Available [address], [address], 09/14/2021 06:00:27 09/08/19 22 09/14/2021 COMPR EHENS KRISTYN METAB OLIC PANEL potassium 3.7 mmol/ L 3.5-5. 3 normal Not Available [address], [address], 09/14/2021 06:00:27 09/08/19 22 09/14/2021 COMPR EHENS KRISTYN METAB OLIC PANEL chloride 103 mmol/ L 98-110 normal Not Available [email or web address] [address], [address], 09/14/2021 06:00:27 09/08/19 22 09/14/2021 COMPR EHENS KRISTYN METAB OLIC PANEL carbon dioxide 33 mmol/ L 20-32 high Not Available [address], [address], 09/14/2021 06:00:27 09/08/19 22 09/14/2021 COMPR EHENS KRISTYN METAB OLIC PANEL calcium 9.2 mg/dL 8.6-10 .4 normal Not Available [address], [address], 09/14/2021 06:00:27 09/08/19 22 09/14/2021 COMPR EHENS KRISTYN METAB OLIC PANEL protein, total 6.0 g/dL 6.1-8. 1 low Not Available [address], [address], 09/14/2021 06:00:27 09/08/19 22 09/14/2021 COMPR EHENS KRISTYN METAB OLIC PANEL albumin 4.1 g/dL 3.6-5. 1 normal Not Available [address], [address], 09/14/2021 06:00:27 09/08/19 22 09/14/2021 COMPR EHENS KRISTYN METAB OLIC PANEL globulin 1.9 g/dL_ (calc ) 1.9-3. 7 normal Not Available [address], [address], 09/14/2021 06:00:27 09/08/19 22 09/14/2021 COMPR EHENS KRISTYN METAB OLIC PANEL albumin/glob ulin ratio 2.2 (calc ) 1.0-2. 5 normal Not Available [address], [address], 09/14/2021 06:00:27 09/08/19 22 09/14/2021 COMPR EHENS KRISTYN METAB OLIC PANEL bilirubin, total 0.6 mg/dL 0.2-1. 2 normal Not Available [address], [address], 09/14/2021 06:00:27 09/08/19 22 09/14/2021 COMPR EHENS KRISTYN METAB OLIC PANEL alkaline phosphatase 87 U/L 37-153 normal Not Available [facility] [address], [address], 09/14/2021 06:00:27 09/08/19 22 09/14/2021 COMPR EHENS KRISTYN METAB OLIC PANEL AST 34 U/L 10-35 normal Not Available [facility] [address], [address], 09/14/2021 06:00:27 09/08/19 22 09/14/2021 COMPR EHENS KRISTYN METAB OLIC PANEL ALT 41 U/L 6-29 high Not Available [address], [address], 09/14/2021 06:00:27 09/08/19 22 09/14/2021 PHOSP HATE ( PHOSP HORUS ) phosphate ( phosphorus) 4.1 mg/dL 2.5-4. 5 normal Not Available [address], [address], 09/14/2021 06:00:26 09/08/1909/14/2021 PTH, INTAC T AND [...] High High Non-P libby yroid Hyper calce suha Low or Low Amanda l High Not Available [email or web address] [address], [address], 09/14/2021 06:00:24 09/08/1909/14/2021 PTH, INTAC T AND CALCI UM calcium 9.2 mg/dL 8.6-10 .4 normal Not Available [address], [address], 09/14/2021 06:00:24 09/09/19 22 09/16/2021 PANCR EATIC [...] subst ituti on thera py. Not Available [address], [address], 09/17/2021 17:37:45 09/09/19 22 09/16/2021 FECAL FAT, QUALI TATIV E fecal fat, qualitative abnorm al normal abnormal Not Available [address], [address], 09/17/2021 17:37:45 09/09/19 22 09/16/2021 CALCI UM, 24 HOUR URINE (W/ CREAT ININE ) calcium/crea tinine ratio 90 mg/g_ creat 30-275 normal Not Available [address], [address], 09/17/2021 17:37:44 09/09/19 22 09/16/2021 CALCI UM, 24 HOUR URINE (W/ CREAT ININE ) calcium, 24 hour urine 123 mg/24 _h normal Refer ence Range 35-25 0 Low calci um diet 35-20 0 Not Available [address], [address], 09/17/2021 17:37:44 09/09/19 22 09/16/2021 CALCI UM, 24 HOUR URINE (W/ CREAT ININE ) creatinine, 24 hour urine 1.38 g/24_ h 0.50-2 .15 normal Not Available [facility] [address] [place], [address], 09/17/2021 17:37:44 10/08/19 22 10/08/2021 ACTH, PLASM A acth, plasma 21.9 pg/mL 7.2-63 .3 ACTH refer ence inter kathy for sampl es colle cted betwe en 7 and 10 AM. Perfo rmed at: [facility] [address], [place] [address] Lab Direc tor: Dev morel PhD, Phone : [phone] Not Available [facility] (Lab) [address] [place], [address], 10/08/2021 16:09:46 10/08/19 22 10/07/2021 CORTI JUAN, TOTAL , A.M. beverly AM 11.3 ug/dL 4.5-22 .7 Not Available [facility] (Lab) [address] [place], [address], 10/07/2021 13:57:03 12/17/19 22 12/18/2021 CALCI UM, IONIZ ED calcium, ionized 5.1 mg/dL 4.8-5. 6 normal Not Available [facility] [id number] [place], [place] [address] [place], [address], 12/18/2021 06:34:00 12/17/19 22 12/18/2021 TSH+F REE T4 TSH 0.95 mIU/L 0.40-4 .50 normal Not Available [facility] [address] [facility] [place], [address], 12/18/2021 06:34:00 12/17/19 22 12/18/2021 TSH+F REE T4 T4, free 1.0 NG/dL 0.8-1. 8 normal Not Available [facility] [address] [address] [place], [address], 12/18/2021 06:34:00 12/17/19 22 12/18/2021 VITAM IN [...] /MS is recom dani d: order code 93575 (salty ents >2yrs ). See Note 1 Note 1 For addit ional infor axel valderrama e refer to http: //[facility] gui Alston stDia gnost ics.c om/fa q/FAQ 199 (This link is being provi ded for infor laith pereyra/ [place] purpo ses only. ) Not Available [email or web address] [address] [address] [place], [address], 12/18/2021 06:34:00 12/17/19 22 12/18/2021 T3, FREE T3, free 3.1 pg/mL 2.3-4. 2 normal Not Available [email or web address] [address] [place], [address], 12/18/2021 06:33:59 12/17/19 22 12/18/2021 COMPR EHENS KRISTYN METAB OLIC PANEL glucose 100 mg/dL 65-99 high Fasti ng refer ence inter kathy For someo ne witho ut known diabe shahnaz, a gluco se value betwe en 100 and 125 mg/dL is consi stent with predi abete s and shoul d be confi rmed with a follo w-up test. Not Available [address] [place] [address] [place], [address], 12/18/2021 06:33:59 12/17/19 22 12/18/2021 COMPR EHENS KRISTYN METAB OLIC PANEL urea nitrogen (BUN) 20 mg/dL 7-25 normal Not Available [address] [address] [place], [address], 12/18/2021 06:33:59 12/17/19 22 12/18/2021 COMPR EHENS KRISTYN METAB OLIC PANEL creatinine 0.73 mg/dL 0.50-1 .05 normal Not Available [address] [address] [place], [address], 12/18/2021 06:33:59 12/17/19 22 12/18/2021 COMPR EHENS [...] kdoqi /gfr% 5Fcal culat or Not Available [address] [address] [place], [address], 12/18/2021 06:33:59 12/17/19 22 12/18/2021 COMPR EHENS KRISTYN METAB OLIC PANEL BUN/creatini ne ratio not applic able (calc ) 6-22 Not Available [address], [address], 12/18/2021 06:33:59 12/17/19 22 12/18/2021 COMPR EHENS KRISTYN METAB OLIC PANEL sodium 143 mmol/ L 135-14 6 normal Not Available [address], [address], 12/18/2021 06:33:59 12/17/19 22 12/18/2021 COMPR EHENS KRISTYN METAB OLIC PANEL potassium 4.4 mmol/ L 3.5-5. 3 normal Not Available [address], [address], 12/18/2021 06:33:59 12/17/19 22 12/18/2021 COMPR EHENS KRISTYN METAB OLIC PANEL chloride 104 mmol/ L 98-110 normal Not Available [address], [address], 12/18/2021 06:33:59 12/17/19 22 12/18/2021 COMPR EHENS KRISTYN METAB OLIC PANEL carbon dioxide 34 mmol/ L 20-32 high Not Available [address], [address], 12/18/2021 06:33:59 12/17/19 22 12/18/2021 COMPR EHENS KRISTYN METAB OLIC PANEL calcium 9.4 mg/dL 8.6-10 .4 normal Not Available [address], [address], 12/18/2021 06:33:59 12/17/19 22 12/18/2021 COMPR EHENS KRISTYN METAB OLIC PANEL protein, total 6.1 g/dL 6.1-8. 1 normal Not Available [address], [address], 12/18/2021 06:33:59 12/17/19 22 12/18/2021 COMPR EHENS KRISTYN METAB OLIC PANEL albumin 4.2 g/dL 3.6-5. 1 normal Not Available [address], [address], 12/18/2021 06:33:59 12/17/19 22 12/18/2021 COMPR EHENS KRISTYN METAB OLIC PANEL globulin 1.9 g/dL_ (calc ) 1.9-3. 7 normal Not Available [address], [address], 12/18/2021 06:33:59 12/17/19 22 12/18/2021 COMPR EHENS KRISTYN METAB OLIC PANEL albumin/glob ulin ratio 2.2 (calc ) 1.0-2. 5 normal Not Available [address], [address], 12/18/2021 06:33:59 12/17/19 22 12/18/2021 COMPR EHENS KRISTYN METAB OLIC PANEL bilirubin, total 1.0 mg/dL 0.2-1. 2 normal Not Available [address], [address], 12/18/2021 06:33:59 12/17/19 22 12/18/2021 COMPR EHENS KRISTYN METAB OLIC PANEL alkaline phosphatase 84 U/L 37-153 normal Not Available [address], [address], 12/18/2021 06:33:59 12/17/19 22 12/18/2021 COMPR EHENS KRISTYN METAB OLIC PANEL AST 32 U/L 10-35 normal Not Available [address], [address], 12/18/2021 06:33:59 12/17/19 22 12/18/2021 COMPR EHENS KRISTYN METAB OLIC PANEL ALT 37 U/L 6-29 high Not Available [address], [address], 12/18/2021 06:33:59 12/17/19 22 12/18/2021 PHOSP HATE ( PHOSP HORUS ) phosphate ( phosphorus) 4.0 mg/dL 2.5-4. 5 normal Not Available [facility] [address], [address], 12/18/2021 06:33:58 12/17/1912/18/2021 PTH, INTAC T AND [...] or Low Amanda l High Not Available [email or web address] [address], [address], 12/18/2021 06:33:58 12/17/1912/18/2021 PTH, INTAC T AND CALCI UM calcium 9.4 mg/dL 8.6-10 .4 normal Not Available [email or web address] [address], [address], 12/18/2021 06:33:58 03/03/19 23 03/17/2022 TSH+F REE T4 TSH 1.96 mIU/L 0.40-4 .50 normal Not Available [email or web address] [address], [address], 03/17/2022 21:44:15 03/03/19 23 03/17/2022 TSH+F REE T4 T4, free 1.0 NG/dL 0.8-1. 8 normal Not Available [email or web address] [address], [address], 03/17/2022 21:44:15 03/03/19 23 03/17/2022 T3, FREE T3, free 3.5 pg/mL 2.3-4. 2 normal Not Available [email or web address] [address] , [place], [address], 03/17/2022 21:44:14 03/03/1903/17/2022 THYRO ID PEROX IDASE ANTIB ODIES thyroid peroxidase antibodies 2 IU/mL <9 normal Not Available [facility] [address] [address], [place], [address], 03/17/2022 21:44:14 03/03/19 23 03/17/2022 CHROM OGRAN [...] not be inter prete d as absol [place] evide nce of the prese nce or absen ce of disea se. This test was devel oped and its [place] tical perfo rmanc e gus cteri stics have been deter mined by [facility] [place] [facility] trano . It has not been clear ed or appro otilia by FDA. This assay has been valid ated pursu ant to the CLIA regul ation s and is used for clini fortunato purpo ses. Not Available [facility] [place] [address] [place], [address], 03/17/2022 21:44:13 03/03/19 23 03/17/2022 VASOA CTIVE [...] not be inter prete d as absol [place] evide nce of the prese nce or [...] for clini fortunato purpo ses. Not Available [email or web address] [place] [address] [place], [address], 03/17/2022 21:44:13 03/03/19 23 03/17/2022 GLUCA SOUMYA glucagon 15 pg/mL 11-78 This test was perfo rmed using the Gluca soumya CATHY metho d stand ardiz ed again st the Inter natio nal refer ence prepa ratio n 69/19 4 and has a new refer ence range . Not Available [facility] [place] [address] [place], [address], 03/17/2022 21:44:12 03/03/19 23 03/17/2022 COMPR EHENS KRISTYN METAB OLIC PANEL glucose 89 mg/dL 65-99 normal Fasti ng refer ence inter kathy Not Available [facility] [place] [address] [place], [address], 03/17/2022 21:44:11 03/03/19 23 03/17/2022 COMPR EHENS KRISTYN METAB OLIC PANEL urea nitrogen (BUN) 22 mg/dL 7-25 normal Not Available [address], [address], 03/17/2022 21:44:11 03/03/19 23 03/17/2022 COMPR EHENS KRISTYN METAB OLIC PANEL creatinine 0.66 mg/dL 0.50-1 .05 normal Not Available [address], [address], 03/17/2022 21:44:11 03/03/19 23 03/17/2022 COMPR EHENS [...] kdoqi /gfr% 5Fcal culat or Not Available [address], [address], 03/17/2022 21:44:11 03/03/19 23 03/17/2022 COMPR EHENS KRISTYN METAB OLIC PANEL BUN/creatini ne ratio not applic able (calc ) 6-22 Not Available [address], [address], 03/17/2022 21:44:11 03/03/19 23 03/17/2022 COMPR EHENS KRISTYN METAB OLIC PANEL sodium 143 mmol/ L 135-14 6 normal Not Available [address], [address], 03/17/2022 21:44:11 03/03/19 23 03/17/2022 COMPR EHENS KRISTYN METAB OLIC PANEL potassium 4.1 mmol/ L 3.5-5. 3 normal Not Available [address], [address], 03/17/2022 21:44:11 03/03/19 23 03/17/2022 COMPR EHENS KRISTYN METAB OLIC PANEL chloride 107 mmol/ L 98-110 normal Not Available [address], [address], 03/17/2022 21:44:11 03/03/19 23 03/17/2022 COMPR EHENS KRISTYN METAB OLIC PANEL carbon dioxide 33 mmol/ L 20-32 high Not Available [address], [address], 03/17/2022 21:44:11 03/03/19 23 03/17/2022 COMPR EHENS KRISTYN METAB OLIC PANEL calcium 9.5 mg/dL 8.6-10 .4 normal Not Available [address], [address], 03/17/2022 21:44:11 03/03/19 23 03/17/2022 COMPR EHENS KRISTYN METAB OLIC PANEL protein, total 5.8 g/dL 6.1-8. 1 low Not Available [address], [address], 03/17/2022 21:44:11 03/03/19 23 03/17/2022 COMPR EHENS KRISTYN METAB OLIC PANEL albumin 4.0 g/dL 3.6-5. 1 normal Not Available [address], [address], 03/17/2022 21:44:11 03/03/19 23 03/17/2022 COMPR EHENS KRISTYN METAB OLIC PANEL globulin 1.8 g/dL_ (calc ) 1.9-3. 7 low Not Available [address], [address], 03/17/2022 21:44:11 03/03/19 23 03/17/2022 COMPR EHENS KRISTYN METAB OLIC PANEL albumin/glob ulin ratio 2.2 (calc ) 1.0-2. 5 normal Not Available [address], [address], 03/17/2022 21:44:11 03/03/19 23 03/17/2022 COMPR EHENS KRISTYN METAB OLIC PANEL bilirubin, total 0.6 mg/dL 0.2-1. 2 normal Not Available [address], [address], 03/17/2022 21:44:11 03/03/19 23 03/17/2022 COMPR EHENS KRISTYN METAB OLIC PANEL alkaline phosphatase 89 U/L 37-153 normal Not Available [address], [address], 03/17/2022 21:44:11 03/03/19 23 03/17/2022 COMPR EHENS KRISTYN METAB OLIC PANEL AST 28 U/L 10-35 normal Not Available [address], [address], 03/17/2022 21:44:11 03/03/19 23 03/17/2022 COMPR EHENS KRISTYN METAB OLIC PANEL ALT 31 U/L 6-29 high Not Available [address], [address], 03/17/2022 21:44:11 03/13/19 23 03/31/2022 5 HIAA, 24 HOUR URINE , W/O CREAT ININE total volume 2500 mL Not Available [address], [address], 03/31/2022 16:00:55 03/13/19 23 03/31/2022 5 HIAA, [...] for clini fortunato purpo ses. Not Available [facility] [place] [address] [place], [address], 03/31/2022 16:00:55 06/06/19 23 06/07/2022 COMPR EHENS KRISTYN METAB OLIC PANEL glucose 89 mg/dL 65-99 normal Fasti ng refer ence inter kathy Not Available [facility] [place] [address] [place], [address], 06/07/2022 16:08:33 06/06/19 23 06/07/2022 COMPR EHENS KRISTYN METAB OLIC PANEL urea nitrogen (BUN) 20 mg/dL 7-25 normal Not Available [email or web address] [address], [address], 06/07/2022 16:08:33 06/06/19 23 06/07/2022 COMPR EHENS KRISTYN METAB OLIC PANEL creatinine 0.78 mg/dL 0.50-1 .05 normal Not Available [email or web address] [address], [address], 06/07/2022 16:08:33 06/06/19 23 06/07/2022 COMPR EHENS [...] kdoqi /gfr% 5Fcal culat or Not Available [address], [address], 06/07/2022 16:08:33 06/06/19 23 06/07/2022 COMPR EHENS KRISTYN METAB OLIC PANEL BUN/creatini ne ratio NOT APPLIC ABLE (calc ) 6-22 Not Available [address], [address], 06/07/2022 16:08:33 06/06/19 23 06/07/2022 COMPR EHENS KRISTYN METAB OLIC PANEL sodium 141 mmol/ L 135-14 6 normal Not Available [address], [address], 06/07/2022 16:08:33 06/06/19 23 06/07/2022 COMPR EHENS KRISTYN METAB OLIC PANEL potassium 3.7 mmol/ L 3.5-5. 3 normal Not Available [address], [address], 06/07/2022 16:08:33 06/06/19 23 06/07/2022 COMPR EHENS KRISTYN METAB OLIC PANEL chloride 102 mmol/ L 98-110 normal Not Available [address], [address], 06/07/2022 16:08:33 06/06/19 23 06/07/2022 COMPR EHENS KRISTYN METAB OLIC PANEL carbon dioxide 33 mmol/ L 20-32 high Not Available [address], [address], 06/07/2022 16:08:33 06/06/19 23 06/07/2022 COMPR EHENS KRISTYN METAB OLIC PANEL calcium 9.2 mg/dL 8.6-10 .4 normal Not Available [address], [address], 06/07/2022 16:08:33 06/06/19 23 06/07/2022 COMPR EHENS KRISTYN METAB OLIC PANEL protein, total 6.1 g/dL 6.1-8. 1 normal Not Available [address], [address], 06/07/2022 16:08:33 06/06/19 23 06/07/2022 COMPR EHENS KRISTYN METAB OLIC PANEL albumin 4.1 g/dL 3.6-5. 1 normal Not Available [address], [address], 06/07/2022 16:08:33 06/06/19 23 06/07/2022 COMPR EHENS KRISTYN METAB OLIC PANEL globulin 2.0 g/dL_ (calc ) 1.9-3. 7 normal Not Available [address], [address], 06/07/2022 16:08:33 06/06/19 23 06/07/2022 COMPR EHENS KRISTYN METAB OLIC PANEL albumin/glob ulin ratio 2.1 (calc ) 1.0-2. 5 normal Not Available [address], [address], 06/07/2022 16:08:33 06/06/19 23 06/07/2022 COMPR EHENS KRISTYN METAB OLIC PANEL bilirubin, total 0.8 mg/dL 0.2-1. 2 normal Not Available [address], [address], 06/07/2022 16:08:33 06/06/19 23 06/07/2022 COMPR EHENS KRISTYN METAB OLIC PANEL alkaline phosphatase 77 U/L 37-153 normal Not Available [facility] [address], [address], 06/07/2022 16:08:33 06/06/19 23 06/07/2022 COMPR EHENS KRISTYN METAB OLIC PANEL AST 23 U/L 10-35 normal Not Available [facility] [address], [address], 06/07/2022 16:08:33 06/06/19 23 06/07/2022 COMPR EHENS KRISTYN METAB OLIC PANEL ALT 27 U/L 6-29 normal Not Available [facility] [address], [address], 06/07/2022 16:08:33 06/06/19 23 06/07/2022 THYRO ID PEROX IDASE ANTIB ODIES thyroid peroxidase antibodies 1 IU/mL <9 normal Not Available [email or web address] [address], [address], 06/07/2022 16:08:34 06/06/1906/07/2022 INSUL IN insulin 9.7 uIU/m L normal Refer ence Range < or = 18.4 Risk: Optim al < or = 18.4 Moder ate NA High >18.4 Adult cardi ovasc ular event risk categ ory cut point s (opti mal, moder ate, high) are based on Insul in Refer ence Inter kathy studi es perfo rmed at [facility] in 2021. Not Available [email or web address] [address], [address], 06/07/2022 16:08:35 06/06/19 23 06/07/2022 T3, FREE T3, free 3.0 pg/mL 2.3-4. 2 normal Not Available [email or web address] [address], [address], 06/07/2022 16:08:36 06/06/19 23 06/07/2022 TSH+F REE T4 TSH 1.18 mIU/L 0.40-4 .50 normal Not Available [facility] [address], [address], 06/07/2022 16:08:36 06/06/19 23 06/07/2022 TSH+F REE T4 T4, free 1.1 NG/dL 0.8-1. 8 normal Not Available [email or web address] [address] [place], [address], 06/07/2022 16:08:36 06/06/19 23 06/07/2022 HEMOG LOBIN [...] Care in Diabe shahnaz(A DA). Not Available [email or web address] [address] [address], [place], [address], 06/07/2022 16:08:37 09/09/19 22 09/08/2021 US, thyro id No observ ation record ed. [id number] [facility] [address] [place], [address], 04/06/2022 01:35:44 09/09/19 22 09/08/2021 bone densi ty No observ ation record ed. [id number] [facility] [address] [place], [address], 04/06/2022 01:35:44 09/09/19 22 DEXA, [facility] [address] [facility] [place] [address] [phone] Consuelo angelo Name: PETE LLANOS Renato A Access ion #: [id number] Sex: F : 1959 6 [birth year] [...] e of 0.1. Page 1 of 2 [facility] Consuelo angelo Name: PETE LLANOS Renato A Access ion #: [id number] Sex: F : 1959 6 [birth year] [...] MD (CT) (CT) Page 2 of 2 [id number] [facility] (Imaging) [address] [place], [address], 04/06/2022 01:35:44 09/09/19 US, head + neck, soft tissu [facility] [address] [place] [address] Consuelo angelo Name: PETE LLANOS A Access ion #: [id number] Sex: F : 1959 6 7 Locati on: RA2 Attend ing Physic thong: KEESHA ARAGNO Orderi Physic thong: KEESHA ARAGON Exam Date: [...] r blood flow. Page [address] [facility] t Name: PETE LLANOS A Access ion #: [id number] Sex: F : 1959 5 [birth year] [...] MD (CT) (CT) Page 2 of 2 [id number] [facility] (Imaging) [address] [place], [address], 04/06/2022 01:35:44 03/31/19 23 03/31/2022 PET-C T, whole body scan No observ ation record ed. [id number] [facility] [address] [place], [address], 04/06/2022 01:35:44 Result Notes None recorded. Problems Name Problem SNOMED Code Status Onset Date Resolution Date Notes Provider Name and Address Organization Details Recorded Time Hypoglycemia 893792738 Active 2021 Not Available [facility] 3 01:34:43 Abnormal cortisol 711512530 Active 2021 Not Available [facility] 3 01:34:43 Hypothyroidis m 55312809 Active 2021 Not Available [facility] 3 01:34:43 Hyperparathyr oidism 02461178 Active 2021 Not Available [facility] 3 01:34:43 Reactive hypoglycemia 577779 Active 2022 MICHELLE Marino null, [facility] 3 10:41:38 Postmenopausa l osteoporosis 849246829 Active 2022 Kayla Alvarado RMA null, [facility] 3 12:05:10 Problem Notes None recorded. Procedures Surgical History Date Name Laterality Status Provider Name and Address Organization Details Recorded Time repair of urinary bladder completed Not Available formerly [facility] 04/06/2022 01:34:04 Neck completed Not Available [facility] 04/06/2022 01:34:04 dinitrochlorobenzene contact sensitivity test completed Not Available formerly [facility] 04/06/2022 01:34:04 Kidney Stones completed Not Available [facility] 04/06/2022 01:34:04 Hysterectomy completed Not Available [facility] 04/06/2022 01:34:04 Gastric bypass for obesity completed Not Available formerly [facility] 04/06/2022 01:34:04 Carpal tunnel surgery completed Not Available [facility] 04/06/2022 01:34:04 Imaging Results Imaging Date Name Status LastModified by Organiz ation Details LastModified Time 03/31/2022 PET-CT, whole body scan completed [id number] [facility]- [address], [address], 04/06/2022 01:35:44 09/08/2021 US, thyroid completed [id number].[id number] 30 026 [facility] Add On Lab Orders [address] [place], [address], 04/06/2022 01:35:44 09/08/2021 bone density completed MIGRATION.[id number] 30 026 [facility] Add On Lab Orders [address] [place], [address], 04/06/2022 01:35:44 09/08/2021 DEXA, axial skeleton completed [id number] 026 [facility] (Imaging) [address] [place], [address], 04/06/2022 01:35:44 09/08/2021 US, head + neck, soft tissue completed [id number] 026 [facility] (Imaging) [address] [place], [address], 04/06/2022 01:35:44 Procedure Notes None recorded. Medical Equipment None Reported. Allergies Allergen ID Allergen Name Allergen Category Reaction Reaction Severity Criticality Documentation Date Start Date Code Code System Note Provider Name and Address Organization Details Recorded Time 62039 Levaquin medicatio n Not available Not available Not available 04/06/2022 48498 2 RxNorm Not Available formerly [facility] 3 01:35:37 52197 Demerol medicatio n Not available Not available Not available 04/06/2022 32858 1 RxNorm Not Available formerly [facility] 3 01:35:37 79191 codeine medicatio n Not available Not available Not available 04/06/2022 2670 RxNorm Not Available formerly [facility] 3 01:35:37 Medications Name Sig [...] % 98 % 66 /min 97.7 [degF] 00564.4 6 g 120 mm[Hg] 75 mm[Hg] Not Available [facility] 3 01:34:09 Date Recorded Body mass index (BMI) Body height Oxygen saturation Oxygen saturation in Arterial blood by Pulse oximetry Heart rate Body temperature Body weight Systolic blood pressure Diastolic blood pressure Provider Name and Address Organization Details Last Updated DateTime 2 32.8 kg/m2 160.02 cm 99 % 99 % 65 /min 97.8 [degF] 97935.5 9 g 105 mm[Hg] 70 mm[Hg] Not Available [facility] 3 01:34:09 Date Recorded Body mass index (BMI) Body height Oxygen saturation Oxygen saturation in Arterial blood by Pulse oximetry Heart rate Respiratory rate Body temperature Body weight Systolic blood pressure Diastolic blood pressure Provider Name and Address Organization Details Last Updated DateTime 3 33.9 kg/m2 160.02 cm 98 % 98 % 69 /min 12 /min 97.5 [degF] 56179.8 6 g 132 mm[Hg] 78 mm[Hg] Not Available [facility] 3 01:34:09 Date Recorded Body height Body mass index (BMI) Body weight Body temperature Heart rate Systolic blood pressure Diastolic blood pressure Provider Name and Address Organization Details Last Updated DateTime 3 160.02 cm 34 kg/m2 60241.7 4 g 97.6 [degF] 68 /min 149 mm[Hg] 67 mm[Hg] Sujatha Hughes CMA [place] [facility] [place] [employer] [facility] 3 12:00:46 Social History Question Answer Notes LastModified by YoQue[employer] Details LastModified Time Tobacco Smoking Status Never Smoker Not Available formerly [facility] 04/06/2022 01:33:24 What Is Your Level Of Alcohol Consumption? None [id number] 026 Information not available 04/06/2022 What Is Your Level Of Caffeine Consumption? None [id number] 026 Information not available 04/06/2022 What Type Of Diet Are You Following? REGULAR [id number] 026 Information not available 04/06/2022 What Is Your Relationship Status? [id number] 026 Information not available 04/06/2022 Sex: Female Functional Status Question Answer Note LastModified by [employer] Details LastModified Time What is your exercise level? Occasional [id number] 26 Information not available 04/06/2022 Mental Status None recorded. Family History Relationship Description Onset Age of this Age Resolved Age Notes LastModified by Organization Details LastModified Time Sister Diabetes mellitus [id number] Not available 04/06/2022 01:34:05 Medical History Condition Response ARTHRITIS HEADACHES/MIGRAINES Y DIZZINESS Y KIDNEY DISEASE LIVER DISEASE LUNG DISEASE/DISORDER Y HYPERTENSION Y HIGH CHOLESTEROL / HYPERLIPIDEMIA Y EYE PROBLEMS Y SURGERY GERD/NAUSEA Y EXCESSIVE PERSPIRATION Y ALZHEIMER'S DISEASE Y HAVE YOU BEEN HOSPITALIZED OR SEEN IN [facility] ER IN THE PAST YEAR ? Y STROKE/TIA Y Gynecological HistoryNo gynecological history recorded. Obstetrics History GPAL:G 0 P 0 0 0 0 Past Encounters Encounter ID Performer Location Encounter Start Date Encounter Closed Date Diagnosis/Indication Diagnosis SNOMED-CT Code Diagnosis ICD10 Code Diagnosis Note [id number] [facility] [address] [place] [address] 09/02/2021 00:00:00 09/02/2021 12:15:50 [id number] [facility] [address] [place] [address] 10/14/2021 00:00:00 10/14/2021 21:36:04 [id number] [facility] [address] [place] [address] 02/27/2022 00:00:00 02/27/2022 12:47:24 [id number] Keesha Aragon MD [facility] [address] [place] [address] 07/31/2022 11:14:26 07/31/2022 12:37:01 Reactive hypoglycemia 110862 E16.1 Patient now taking acarbose per [facility] endocrinol ogy and her hypoglycem ia appears [...] of thyroid and osteoporos is or with [facility] endocrinol ogy as they have direct access [...] Name 07/31/2022 1 [place] Tiffanie Ruiz [id number] Tiffanie Ruiz 07/31/2022 2 [place] ([place] [id number] Tk Ruiz [id number] Tiffanie Ruiz Notes Date Note Type [...] and VIP/glucagon in range. We referred to [facility] for further insight. she is taking acarbose [...] mg/dLCr normalLFT normal Keesha Aragon MD [address] [facility], [facility] [address], [place], [address], [place] [facility] 07/31/2022 15:32:40 OBGyn Episode No OBEpisode recorded.
--- OUTSIDE RECORDS SUMMARY | 2024-03-07 01:58 | XMS_ITS | Encounter Summary ---
Author Organization [facility] Address [address] [place] [address] Care Team Providers Care Sheet Metal Lay Out Worker Name Role Phone Jona Bravo MD Primary Care Provider [phone] Reason for Visit * Reason Comments Clinical Consult Before Scheduling Encounter Details Date Type Department Care Team (Late st Contact Info) Description 02/11/2024 Telephone [facility] [address] [place] [address] Jona Bravo MD [address] [facility] [address] [place] [address] Clinical Consult Before Scheduling Social [...] often do you attend chur ch or buddhist services? 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 Topic: Symptomatic Care >> Feb 11, 2024 4:22 PM Connie Ardon wrote: Caller has new symptoms and is seeking care. Age Range/Symptom: Adult: 18+ - Cold, Flu, COVID, Sinus, Hay Fever, Allergies, Cough, Fever Does patient have any of the following other urgent symptoms: No urgent symptoms requiring warm call transfer Caller Name: Tiffanie Ruiz Callback Number: [phone] Call Notes: She has been sick since 01/31/2024. She went to the Urgent care ([facility]), yesterday. Where they prescribed steroids, and gave x-ray. She Is still suffering from cough, raspy throat, chest aches, and head congestion. Emergency inhaler not working well Refer to - [facility] (02/11/2024) She is scheduled with [facility] on 02/14/2024 Unable to schedule appointment within patient's desired timeframe. Patient declined all other options for immediate care, preferring to schedule first available. Scheduled appointment for 02/14/24 at3pm . If this is not clinically appropriate, please contact patient. No T FURNACE BLOWER documented in this encounter Plan of Treatment Upcoming Encounters Date Type Department Care Team (Late st Contact Info) Description 04/23/2024 1:20 PM CDT Office Visit [address] [place] [address] Jona Bravo MD [address] [place] [address] [address] [place] [address] 08/25/2024 10:40 AM CDT Office Visit [address] [place] [address] Jona Bravo MD [address] [place] [address] [address] [place] [address] documented as of this encounter Visit Diagnoses Not on filedocumented in this encounter Care Teams Sheet Metal Lay Out Worker Relationship Specialty Start Date End Date Jona Bravo MD PCP - General Internal Medicine 11/25/15 documented as of this encounter
--- OUTSIDE RECORDS SUMMARY | 2024-03-07 01:58 | XMS_ITS | Encounter Summary ---
Author Organization [facility] Address [address] [place] [address] Care Team Providers Care Anesthesiologist Assistant Certified Name Role Phone Jona Bravo MD Primary Care Provider + Desire Sams RN Unavailable Un available Pooja [place] LCSW Unavailable [phone] Roscoe Mccollum MD Unavailable [phone] Encounter Details Date Type Department Care Team (Late st Contact Info) Description 09/17/2020 Telephone [facility] [address] [place] [address] Kim Gagnon, RT Social History Tobacco Use [...] on file Legal Sex Female 12:46 AM RV 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 Gender Identity Female 04/08/2019 6:15 AM RV SERVICER Sexual Orientation Straight 04/08/2019 6: 15 AM RV SERVICER documented as of this encounter Plan of Treatment Not on file documented as of this encounter Visit Diagnoses Not on filedocumented in this encounter Care Teams Anesthesiologist Assistant Certified Relationship Specialty Start Date End Date Jona Bravo MD [address] [facility] [place] [address] PCP - General 05/05/16 Desire Sams, RN Registered Nurse 04/03/17 Pooja [place], [facility] [address] [facility] ([facility]) Mailstop [phone] [place] [address] [facility] Outpatient Shell Machine Operator 10/12/21 11/09/21 Roscoe Mccollum MD [address] [facility] [address] [address] Anesthesiologist Pain Management 12/21/21 documented as of this encounter
--- OUTSIDE RECORDS SUMMARY | 2024-03-07 01:58 | XMS_ITS | Clinical Summary ---
Author Organization [facility] Address [address] [place] [address] Phone Care Team Providers Care System Admin Name Role Phone Jona Bravo MD Primary Care Provider [phone] Allergies Active Allergy Reactions Criticality Noted Date [...] Description 05/28/2024 1:00 PM CDT Office Visit [facility] [address] [place] [address] Uche Vela MD [address] [place] [address] Health Maintenance Due Date Last Done Comments COVID-19 Vaccine (5 - 2022-2 4 season) 2023 10/13/2021, 12/12/2020, 04/29/2020, Additional history exists Influenza Vaccine (#1) 2023 , 11/14/2019, 10/19/2019, Additional history exists Pneumococcal PPSV23/PCV13 65 + Years / High and Highest Risk (4 of 4 - PPSV23 or PCV20) 02/05/2024 05/30/2016, 09/16/2014, 09/16/2014 Care Teams System Admin Relationship Specialty Start Date End Date Jona Bravo MD [address] [place] [address] PCP - General Internal Medicine 06/16/19
--- OUTSIDE RECORDS SUMMARY | 2024-03-07 01:58 | XMS_ITS | Encounter Summary ---
Author Organization [facility] Health Address [address] [facility] [place] [address] Care Team Providers Care Reliability Technologist Name Role Phone Jesse Garcia MD Primary Care Provider [phone] Jona Bravo MD Primary Care Provider [phone] Kirill Jean MD Primary Care Provider [phone] Jona Bravo MD Primary Care Provider [phone] Kirill Jean MD Primary Care Provider [phone] Jona Bravo MD Primary Care Provider [phone] Kirill Jean MD Primary Care Provider +[phone] Jona Bravo MD Primary Care Provider [phone] Kirill Jean MD Primary Care Provider [phone] Kirill Jean MD Primary Care Provider +[phone] Tenisha Tena MD Primary Care Provide r Kirill Jean MD Primary Care Provider +[phone] Jona Bravo MD Primary Care Provider [phone] Encounter Details Date Type Department Care Team (Late st Contact Info) Description 08/05/2010 [facility] Out[facility]NAL [facility] DEPT Steph Mar, FOOD SERVICE AGENT-HAY FARMER [address] [place] [address] Social History Tobacco Use Types [...] st Contact Info) Description 04/10/2024 8:30 AM FOOD PACKER Office Visit [facility] [address] [place] [address] Soham Hutton MD [address] [place] [address] documented as of this encounter Visit Diagnoses Not on filedocumented in this encounter Care Teams Reliability Technologist Relationship Specialty Start Date End Date Jesse Garcia MD [address] [address] PCP - General 11/04/09 06/30/14 Jona Bravo MD [address] [place] [address] PCP - General Internal Medicine 11/29/15 05/23/17 Kirill Jean MD [address] [place] [phone] PCP - General 05/24/17 12/16/17 Jona Bravo MD [address] [place] [address] PCP - General Internal Medicine 12/17/17 03/19/18 Kirill Jean MD [address] [place] [phone] PCP - General 03/20/18 03/25/18 Jona Bravo MD [address] [address] PCP - General Internal Medicine 03/26/18 05/01/18 Kirill Jean MD [address] [place] [phone] PCP - General 05/02/18 06/18/18 Jona Bravo MD [address] [address] PCP - General Internal Medicine 06/19/18 07/31/18 Kirill Jean MD [address] [place] [phone] PCP - General 08/01/18 11/19/18 Kirill Jean MD [address] [place] [phone] PCP - General 02/13/19 09/18/19 Tenisha Tena MD [address] [place] [phone] PCP - General Family Medicine 09/19/19 01/07/20 Kirill Jean MD [address] [place] [phone] PCP - General 01/08/20 10/15/22 Jona Bravo MD [address] [place] [address] PCP - General Internal Medicine 10/16/22 documented as of this encounter
--- OUTSIDE RECORDS SUMMARY | 2024-03-07 01:58 | XMS_ITS | Clinical Summary ---
Author Organization [facility] Address [address] [place] [address] Phone Care Team Providers Care Cabin Cleaner Name Role Phone Jona Bravo MD Primary Care Provider [phone] Allergies Active Allergy Reactions Criticality Noted Date [...] ipratropium bromide (ATROVENT) 21 mcg (0.03 %) [place], Non-Aerosol Administer 2 Sprays in each nostril [...] Encounters Date Type Department Care Team Description 03/05/2024 External Device Data Initial Department [address] [place] [address] Dr CANCHOLA: [place] [address] [facility] 03/03/2024 External Device Data Initial Department [address] [place] [address] Dr CANCHOLA: Prelude ADT [place] [address] [facility] 02/27/2024 External Device Data STL ABSTRACTION Provider, Abstract 02/27/2024 External Device Data Initial Department [address] [place] [address] Dr CANCHOLA: [place] [address] G[facility] Emergency, 02/26/2024 External Device Data STL ABSTRACTION Provider, Abstract 02/26/2024 [facility] [address] [place] [address] Jona Bravo MD 02/26/2024 Abstract [facility] [address] [place] [address] Jona Bravo MD 02/25/2024 External Device Data Initial Department [address] [place] [address] Dr CANCHOLA: [place] [address] [facility] Emergency[facility] 02/23/2024 Telephone [facility] VIRTUAL vACUTE CARE [address] [place] [address] Boo Parrish RN [facility] Wildland Firefighter 02/20/2024 External Device Data Initial Department [address] [place] [address] Dr CANCHOLA: [place] [address] G[facility] Emergency, 02/19/2024 External Device Data STL ABSTRACTION Provider, Abstract 02/19/2024 [place] [address] [facility] [address] [place] [address] Jona Bravo MD 02/18/2024 Telephone [facility] VIRTUAL vACUTE CARE [address] [place] [address] Shivani Winston FNP [facility] 02/18/2024 External Device Data Initial Department [address] [place] [address] Dr CANCHOLA: [place] [address] [facility] 02/15/2024 Refill [place] [address] [place] [address] Jona Bravo MD 02/13/2024 3:20 PM BRAKES INSPECTOR Office Visit [facility] [address] [place] [address] Jona Bravo MD Other hyperlipidemia (Primary Dx); DM type 2, goal HbA1c < 7% ([facility]); Other asthma; Visit for screening mammogram; Vitamin D deficiency; Other specified hypothyroidism; Essential hypertension 02/13/2024 Abstract [facility] [address] [facility] [address] [place] [address] Jona Bravo MD 02/13/2024 External Device Data Initial Department [address] [facility] [address] CANCHOLA: [place] [address] Gio Villavicencio Md 02/13/2024 Telephone [facility] vACUTE [facility] [address] [place] [address] Gali-Katlin Soto RN [facility] Connect 02/12/2024 External Device Data STL ABSTRACTION Provider, Abstract 02/11/2024 [facility] [address] [place] [address] [address] [place] [address] Jona Bravo MD Clinical Consult Before Scheduling 02/11/2024 Telephone [facility] vACUTE [facility] [address] [place] [address] Courtney Eli RN [facility] Connect 02/11/2024 External Device Data Initial Department [address] [facility] [address] CANCHOLA: [place] [address] Gio Villavicencio Md 2024 12:00 PM BRAKES INSPECTOR Ancillary Procedure [facility] [address] [address] Pj Sepulveda MD Right ureteral stone 2024 11:30 AM BRAKES INSPECTOR Ancillary Procedure [facility] [address] [address] Pj Sepulveda MD Kidney stones 2024 External Device Data Initial Department [address] [facility] [address] CANCHOLA: [place] [address] Gio Villavicencio Md 01/28/2024 External Device Data Initial Department [address] [place] [address] Dr CANCHOLA: [place] [address] Gio Villavicencio Md 01/23/2024 External Device Data Initial Department [address] [facility] [address] CANCHOLA: Prelude ADT [place], [place] [address]Sabine Villavicencio Md 01/21/2024 External Device Data Initial Department [address] [facility] [address] CANCHOLA: Prelude [place]T [place], [place] [address]Sabine Villavicencio Md 01/16/2024 External Device Data Initial Department [address] [facility] [address] CANCHOLA: Prelude ADT [place], [place] [address]Sabine Powers EmergencyMd 01/14/2024 External Device Data Initial Department [address] [facility] [address] CANCHOLA: [place] [address] [facility] Emergency, 01/10/2024 1:30 PM BRAKES INSPECTOR Video Visit [facility] Care [place] [address] [place] [address] Scott Wong PA Nonintractable headache, unspecified chronicity pattern, unspecified headache type (Primary Dx); Primary hypertension; Anxiety state 01/10/2024 Refill [place] [address] [place] [address] Scott Wong PA Nonintractable headache, unspecified chronicity pattern, unspecified headache type (Primary Dx) 01/09/2024 External Device Data Initial Department [address] [place] [address] Dr CANCHOLA: Prelude ADT [place] [address]Sabine Villavicencio Md 01/07/2024 External Device Data Initial Department [address] [place] [address] Dr CANCHOLA: Prelude ADT [place] [address]Sabine Powers EmergencyM[facility] 01/05/[address] [address] Elham Yung RN [facility] Wildland Firefighter 01/02/2024 External Device Data Initial Department [address] [facility] [address] CANCHOLA: Prelude [place]T [place] [address]Sabine Villavicencio Md 12/31/2023 External Device Data Initial Department [address] [facility] [address] CANCHOLA: Prelude [place]T [place] [address]Sabine Villavicencio Md 12/31/2023 Refill [place] [address] [place] [address] Jona Bravo MD 12/28/2023 Abstract [facility] [address] [facility] [address] [place] [address] Provider, Abstract 12/26/2023 External Device Data Initial Department [address] [place] [address] Dr CANCHOLA: [place] [address] [facility] Emergency, 12/24/2023 External Device Data Initial Department [address] [place] [address] Dr CANCHOLA: [place] [address] [facility], 12/19/2023 External Device Data Initial Department [address] [place] [address] Dr CANCHOLA: [place] [address] [facility] Emergency, Md 12/17/2023 External Device Data Initial Department [address] [place] [address] Dr CANCHOLA: [place] [address] [facility], 12/12/2023 External Device Data Initial Department [address] [place] [address] Dr CANCHOLA: [place] [address] [facility] Emergency, Md 12/10/2023 External Device Data Initial Department [address] [place] [address] Dr CANCHOLA: [place] [address] [facility] Emergency, Md 12/07/2023 [facility] Primary [facility] [address] [place] [address] Jona Bravo MD Osteoarthritis of both knees, unspecified osteoarthritis type from Last 3 Months Immunizations Immunization Administration [...] COVID-19 VACCINE - EMERGENCY USE AUTHORIZATION, MRNA, [id number](PF) 30 MCG/0.3 ML IM SUSP 12/12/2020,04/29/2020,04/08/2020 (PNEUMOVAX 23)(50 YRS UP) PN EUMOCOCCAL POLYSACCHARIDE (PPV23) 0.5 ML, IM 05/30/2016 (PREVNAR 13)(6 WKS UP) PNEUM OCOCCAL CONJUGATE (PCV13) 0.5 ML, IM 09/16/2014 (PREVNAR 20)(6 WKS UP) PNEUM OCOCCAL CONJUGATE VACCINE 20-VALENT (PCV20), POLYSACCHARIDE [id number] CONJUGATE, ADJUVANT 0.5 ML (PF) IM 02/10/2022 [...] Relation Name Comments Heart Disease Father Kendell A Farooq Heart Failure Father Kendell A Farooq High Cholesterol Father Kendell A Farooq Hypertension Father Kendell A Farooq Other Father Kendell A Farooq pulmonary fi brosis Cancer Maternal Aunt 1 female Cancer Maternal Aunt 2 female Cancer Maternal Grandmother Alpha Farooq cervica l female Emphysema Mother Pat E Farooq Heart Disease Mother Pat Ayoner Hypertension Mother Pat Trivedi Lung Cancer Mother Pat Geraldine Ayoner Small cell Thyroid Disease Mother Pat Geraldine AgudeloFarooq Cancer Paternal Aunt x3 female Cancer Paternal Grandmother Vandana Chanel cervic al female Diabetes Sister 1 lincoln Hypertension Sister 1 [place] Stroke Sister 1 lincoln Thyroid Disease Sister 1 lincoln Diabetes Sister 2 rochelle Hypertension Sister 2 rochelle Thyroid Disease Sister 2 rochelle Osteoporosis Sister 5 Meka Thyroid Disease Sister 5 Meka Stroke Sister 6 Radha Thyroid Disease Sister 6 Ardha Asthma Neg Hx Bronchitis Neg Hx Relation Name Status Comments Daughter Alive Father Kendell Trivedi Maternal Aunt 1 Maternal Aunt 2 Maternal Grandfather Maternal Grandmother Alpha Farooq Mother Pat Trivedi Paternal Aunt Paternal Grandfather [...] 01/11/2020 How often do you attend chur or buddhist services? 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 Not on file Not on file Last Filed Vital Signs Vital Sign Reading Time Taken Comments Blood Pressure 121/84 02/13/2024 3:13 PM BRAKES INSPECTOR Pulse 88 02/13/2024 3:03 PM BRAKES INSPECTOR Temperature 36.4 ??C (97.6 ??F) 11/26/2023 3:04 PM CD T Respiratory Rate 18 11/26/2023 3:04 PM CDT Oxygen Saturation 93% 02/13/2024 3:03 PM BRAKES INSPECTOR Inhaled Oxygen Concentration - - Weight 85.3 kg (188 lb) 02/13/2024 3:03 PM BRAKES INSPECTOR Height 160 cm (5' 3 ) 02/13/2024 3:03 PM BRAKES INSPECTOR Body Mass Index 33.3 02/13/2024 3:03 PM BRAKES INSPECTOR Plan of Treatment Upcoming Encounters Date Type Department Care Team (Late st Contact Info) Description 04/23/2024 1:20 PM CDT Office Visit [address] [place] [address] Jona Bravo MD [address] [place] [address] [address] [place] [address] 08/25/2024 10:40 AM CDT Office Visit [address] [place] [address] Jona Bravo MD [address] [place] [address] Health Maintenance Due Date Last Done Comments [...] 2) 12/08/2021 10/13/2021 INFLUENZA VACCINE (#1) 2023 , 05/08/2022, 11/22/2020, Additional history exists BREAST CANCER SCREENING 09/09/2023 09/09/19 23, 09/08/2022, 07/08/2021, Additional history exists COVID-19 Vaccine (2023-2 5 season) 2023 01/08/2023, 10/13/2021, 12/12/2020, Additional history exists LDL CHOLESTEROL ANNUAL 02/09/2024 , 08/18/2021, 04/29/2021, Additional history exists DIABETES ANNUAL FOOT EXAM 06/21/2024 06/22/2023 Traditional Medicare (O) A nnual Wellness Visit 06/22/2024 06/22/2023, 10/14/2021, [...] history exists Medical Devices Implanted Type Area Steel Rule Inspector Device Identifier Shelf Expiration Date Model / Serial / Lot Lap Band Bladder Sling Procedures Procedure Name Priority Date/Time Associated Diagnosis Comments HEMOGLOBIN A1C Routine 02/13/2024 3:36 PM BRAKES INSPECTOR XR ABDOMEN 1 VW Routine 2024 11:27 AM BRAKES INSPECTOR Right ureteral stone CT ABDOMEN PELVIS WO CONTRAST Routine 2024 11:27 AM BRAKES INSPECTOR Kidney stones MICROALBUMIN/CREATI NINE RATIO, RANDOM UR Routine 11/26/2023 4:09 PM CDT DM type 2, goal HbA1c < 7% ([facility]) LIPID PANEL Routine 02/08/2023 11:08 AM BRAKES INSPECTOR Other hyperlipidemia MAMMO SCREEN BILAT W OR WO CAD Routine 09/08/2022 2:51 PM CDT XR DEXA BONE DENSITY AXIAL 1 OR MORE SITES Routine 09/20/2020 Menopause HX COLONOSCOPY Routine 08/03/2020 from Last 3 Months or Most Recently Relevant to Health Maintenance Results * HEMOGLOBIN A1C (02/13/2024 3:36 PM BRAKES INSPECTOR) ABSTRACTED HGB A1C 5.7 % [facility] Blood 02/13/2024 3:36 PM BRAKES INSPECTOR Jona Bravo MD CHEMISTRY ORDERABLES Final Re sult [facility] CLIA# [id number] [address] [facility] [address] [place] [address] * XR ABDOMEN 1 VW (2024 11:27 AM BRAKES INSPECTOR) Anatomical Region Laterality Modality Abdomen Computed Radiogr aphy 2024 11:2 7 AM BRAKES INSPECTOR Impressions 2024 11:42 AM BRAKES INSPECTOR Findings/impression: The bowel gas pattern is nonobstructive. Multiple pelvic calcifications are noted which are best appreciated on the most recent CT. Small bilateral renal calculi are also noted. Narrative 2024 11:42 AM BRAKES INSPECTOR EXAM: XR ABDOMEN 1 VW DATE: 2024 HISTORY: Right ureteral stone COMPARISON: CT abdomen pelvis 2024. Procedure Note Louie Hood, DO - 2024 EXAM: XR ABDOMEN 1 [...] ABDOMEN PELVIS WO CONTRAST (2024 11:27 AM BRAKES INSPECTOR) Anatomical Region Laterality Modality Abdomen Computed Tomogra phy 2024 11:1 8 AM BRAKES INSPECTOR Impressions 2024 11:45 AM BRAKES INSPECTOR IMPRESSION: Bilateral nonobstructing renal calculi measuring up to 5 mm. No obstructive uropathy appreciated. Narrative 2024 11:45 AM BRAKES INSPECTOR EXAM: CT ABDOMEN PELVIS WO CONTRAST DATE: [...] in the lumbosacral spine. Procedure Note Louie Hood, DO - 2024 EXAM: CT ABDOMEN PELVIS [...] to 5 mm. No obstructive uropathy appreciated. us Pj Sepulveda MD CT ORDERABLES Final Result * MICROALBUMIN/CREATININE RATIO, RANDOM [...] within a diagnostic category. Test Performed at: [facility] ??[phone] Law Nathan MD Urine URINE SPECIMEN OBTAINED BY CLEAN CATCH PROCEDURE / Unknown 11/26/2023 4:09 PM CDT 11/27/2023 6:37 AM CDT us Jona Bravo MD URINE ORDERABLES Final Result [facility] [phone] [facility] [address] * LIPID PANEL (02/08/2023 11:08 AM BRAKES INSPECTOR) CHOLESTEROL 168 <200 mg/dL [facility] HDL 77 > OR = 50 mg/dL [facility] TRIGLYCERIDE 45 <150 mg/dL [facility] LDL CALCULATED 78 mg/dL (calc) [facility] Comment: Reference range: <100 Desirable range <100 mg/dL for primary prevention; ?? <70 mg/dL for patients with CHD or diabetic patients with > or = 2 CHD risk factors. LDL-C is now calculated using the Shannan calculation, which is a validated novel method providing better accuracy than the Friedewald equation in the estimation of LDL-C. Tai SANDHU et al. YONI. 2013;310(19): 1130-7577 (http://education.[employer]/faq/SGL169) CHOL/HDL RATIO 2.2 <5.0 (calc) [facility] TOTAL NON-HDL CHOL(LDL+VLDL) 91 <130 mg/dL (calc) [facility] Comment: For patients with diabetes plus 1 major ASCVD risk factor, treating to a non-HDL-C goal of <100 mg/dL (LDL-C of <70 mg/dL) is considered a therapeutic option. Test Performed at: [facility] [address] [place] ??[phone] Law Nathan MD Blood 02/08/2023 11:0 8 AM BRAKES INSPECTOR 02/08/2023 11:09 AM BRAKES INSPECTOR us Jona Bravo MD CHEMISTRY ORDERABLES Final Re sult Performing Organization Address [facility] Co de Phone Number [facility] [phone] [facility] [address] [place] [address] * MAMMO SCREEN BILAT W OR WO [...] d Result - Final Performing Organization Address City/[facility]/ZIP Co de Phone Number EXTERNAL LAB from Last 3 Months or Most Recently Relevant to Health Maintenance Insurance MEDICARE PART A AND B BCBS BLUE PREFERRED RX [employer] Commercial MEDICARE PART A AND B BCBS BLUE PREFERRED Advance Directives For more information, please contact: [phone] * Full Code (Latest Code Status on File) Date Activated Date Inactivated Comments 03/02/2017 8:56 PM 03/05/2017 9:44 PM * Full Code Date Activated Date Inactivated Comments 07/17/2014 10:57 AM 07/17/2014 4:49 PM * Full Code Date Activated Date Inactivated Comments 04/24/2014 2:54 PM 04/24/2014 8:53 PM * Full Code Date Activated Date Inactivated Comments 04/24/2014 11:13 AM 04/24/2014 2:54 PM Care Teams Cabin Cleaner Relationship Specialty Start Date End Date Jona Bravo MD PCP - General Internal Medicine 11/25/15
--- OUTSIDE RECORDS SUMMARY | 2024-03-07 01:58 | XMS_ITS | Encounter Summary ---
Author Organization [facility] Address [address] [place] [address] Care Team Providers Care Investment Banking Manager Name Role Phone Jona Bravo MD Primary Care Provider Reason for Visit * Reason Onset Date Comments Red flag- Severe Pain 08/14/2022 Encounter Details Date Type Department Care Team (Late st Contact Info) Description 08/14/2022 Telephone [facility] Primary Care [address] [place] [address] Jona Bravo MD [address] [place] [address] [address] [place] [address] Red flag- Severe Pain Social [...] any clubs o r organizations such as druze groups, unions, fraternal or athletic groups, or [...] on file Legal Sex Female 9:43 AM INSPECTOR FILTERS Gender Identity Not on file Sexual Orientation [...] and suggested an injection. Call back number: [phone] (home) Home Phone Work Phone documented in this encounter Plan of Treatment Upcoming Encounters Date Type Department Care Team (Late st Contact Info) Description 04/23/2024 1:20 PM CDT Office Visit [address] [place] [address] Jona Bravo MD [address] [place] [address] [address] [place] [address] 08/25/2024 10:40 AM CDT Office Visit [address] [place] [address] Jona Bravo MD [address] [place] [address] documented as of this encounter Visit Diagnoses Not on filedocumented in this encounter Care Teams Investment Banking Manager Relationship Specialty Start Date End Date Jona Bravo MD PCP - General Internal Medicine 11/25/15 documented as of this encounter
--- OUTSIDE RECORDS SUMMARY | 2024-03-07 01:58 | XMS_ITS | Encounter Summary ---
Author Organization [facility] Address [address] [place] [address] Phone Care Team Providers Care Pest Management Supervisor Name Role Phone Jona Bravo MD Primary Care Provider [phone] Reason for Visit * Reason Comments Med Refill Encounter Details Date Type Department Care Team (Late st Contact Info) Description 11/06/2021 Refill [facility] [address] [place] [address] Janeth Betts PA [address] [place] [address] [phone] Social History Tobacco Use Types Packs/Day Years [...] Description 05/28/2024 1:00 PM CDT Office Visit [facility] [address] [place], [place] [phone] Uche Vela MD [address] [place], [place] [phone] documented as of this encounter Visit Diagnoses Not on filedocumented in this encounter Care Teams Pest Management Supervisor Relationship Specialty Start Date End Date Jona Bravo MD [address] [place] [address] PCP - General Internal Medicine 06/16/19 documented as of this encounter
--- OUTSIDE RECORDS SUMMARY | 2024-03-07 01:58 | XMS_ITS | Encounter Summary ---
Author Organization [facility] Address [address] [place] [address] Phone Care Team Providers Care Chief Librarian Circulation Department Name Role Phone Jona Bravo MD Primary Care Provider + Desire Sams RN Unavailable Un available Pooja [place] LCSW Unavailable [phone] Roscoe Mccollum MD Unavailable [phone] Encounter Details Date Type Department Care Team [...] on file Legal Sex Female 12:46 AM DOPE MIXER Gender Identity Female 04/08/2019 6:15 AM DOPE MIXER Sexual Orientation Straight 04/08/2019 6: 15 AM DOPE MIXER Occupation Industry Job Start Date Job End [...] on filedocumented in this encounter Care Teams Chief Librarian Circulation Department Relationship Specialty Start Date End Date Jona Bravo MD [address] [place] [address] PCP - General 05/05/16 Desire Sams, RN Registered Nurse 04/03/17 Pooja [place], [facility] [address] [facility] ([facility]) Mailstop [phone] [place] [address] [facility] Outpatient Real Estate Agent 10/12/21 11/09/21 Roscoe Mccollum MD [address] [facility] [address] [place] [address] Anesthesiologist Pain Management 12/21/21 documented as of this encounter
--- OUTSIDE RECORDS SUMMARY | 2024-03-07 01:59 | XMS_ITS | Referral Summary ---
Author Organization [facility] Address [address] [place] [address] Care Team Providers Care Steam Press Tender Name Role Phone Jona Bravo MD Primary Care Provider [phone] Source Comments [facility],non-owned Affiliates and Associated Physician Practices is amultiple site organization consisting of ambulatory clinics and hospital sitesin [place], [place], [place] and [place]. This disclosure is being madepursuant to the Care Everywhere program and may not contain all information available regarding this patient. Last updated 17.[facility] Profilepasser Allergies Active Allergy Reactions Criticality Noted Date [...] Units/L by mouth once daily Active Biotin 91575 MCG TBDP Take 1 tablet by mouth [...] mouth once daily 04/21/2021 Active nystatin (NYSTOP) 749968 UNIT/GM powder APPLY POWDER TOPICALLY TO AFFECTED [...] 01/15/08: Lap banding by Dr. Claros at [facility] Had a port leak with subsequent [...] st Contact Info) Description 04/10/2024 8:30 AM CRITICAL POWER INSTALL TECHNICIAN Office Visit [facility] - [facility] [address] [place] [id number] Soham Hutton MD [address] [place] [address] Procedures Procedure Name Priority Date/Time Associated Diagnosis [...] 29 U/L [facility] Comment: Test Performed at: [facility] [address] [address] ??[id number] ARACELY DANIEL MD 06/05/2022 10:4 9 AM CDT 06/05/2022 10:50 AM CDT Ivette Alyson Monteiro SALON SUPERVISOR-WIND TUNNEL TECHNICIAN LAB - [facility] ORDERABLES [facility] [address] [place] [address] * ENDOSCOPY, COLON, SCREENING (08/03/2020 9:10 AM [...] Procedure Code(s): ? --- Professional --- ? [address]885, Colonoscopy, flexible; with biopsy, single or multiple Diagnosis Code(s): ?--- Professional --- ?Z86.010, Personal history of colonic polyps ?K63.5, Polyp of colon ?K57.30, Diverticulosis of large intestine without ?perforation or abscess without bleeding CPT copyright 2019 [employer]. All rights reserved. The codes documented in this report are preliminary and upon child care provider review may be revised to meet current compliance requirements. Soham Farley MD 08/03/2020 10:38:53 AM This report has been signed electronically. Note Initiated On: 08/03/2020 9:10 AM Number of Addenda: 0 ? [facility] ? [address] [place], [place] [id number] [place] [address] PROVATION 08/03/2020 9:10 AM CDT Soham Hutton MD GI PROCEDU RE ORDERABLES [facility] [employer] * HEMOGLOBIN A1C (07/23/2008 11:32 AM CDT) Hemoglobin A1c 5.7 3.9 - 6.1 % [facility] Estimated Average Glucose 116.9 mg/dl [facility] BLOOD SPECIMEN / Unknown 07/23/2008 11:32 AM CDT Narrative [facility] - 07/23/2008 9:23 PM CDT [phone] Resulting Agency Comment Performed By [facility] - [facility] ? [address] ? [place] [address] Scott Claros MD LAB - CHEMISTRY O RDERABLES [facility] [address] [place] [address] from Last 3 Months or Most Recently Relevant to Health Maintenance Advance Directives * Full Code (Latest Code Status on File) Date Activated Date Inactivated Comments 06/19/2018 5:17 PM 06/20/2018 8:12 PM * Full Code Date Activated Date Inactivated Comments 12/24/2017 11:20 AM 12/25/2017 12:40 PM Care Teams Steam Press Tender Relationship Specialty Start Date End Date Jona Bravo MD [address] [place] [id number] PCP - General Internal Medicine 10/16/22
--- OUTSIDE RECORDS SUMMARY | 2024-03-07 01:59 | XMS_ITS | Patient Health Summary ---
Author Organization [facility] Address [address] [place] [address] Care Team Providers Care Burlap Man Name Role Phone Jona Bravo MD Primary Care Provider Note from [facility],non-owned Affiliates and Associated Physician Practices is amultiple site organization consisting of ambulatory clinics and hospital sitesin [place], [place], [place]. This disclosure is being madepursuant to the Care Everywhere program and may not contain all information available regarding this patient. Last updated 17.[facility] Allergies * Adhesive Sensitivity(Other) * Codeine(Urticaria) * [...] Units/L by mouth once daily * Biotin 94960 MCG TBDP Take 1 tablet by mouth [...] by mouth once daily * nystatin (NYSTOP) 033390 UNIT/GM powder(Started 08/12/2021) APPLY POWDER TOPICALLY TO [...] (left upper quadrant), Abdominal wall bulge * [place] EGD FLEX TRANSORAL W SUBMUCOSAL INJ(Performed 10/16/2022) * GLUCOSE - POINT OF CARE(Performed 10/16/2022) * EGD(Performed 10/16/2022) * [place] EGD FLEX TRANSORAL DX(Performed 08/21/2022) * [...] for colon cancer, H/O gastric bypass * [place] EGD FLEX TRANSORAL DX(Performed 08/03/2020) Performed [...] (STL)(Performed 09/19/2019) Performed for Diagnosis unknown * [place] EGD FLEX TRANSORAL DX(Performed 09/19/2019) * [...] DO on 07/18/2023 2:08 PM Steph Mar SALES OPERATIONS MANAGER-FISH AND WILDLIFE TECHNICIAN FLUOROSCOPY ORDERABLES * CT ABDOMEN AND PELVIS [...] DATE/TIME OF EXAM: ??06/29/2023 12:15 PM, LOCATION ??[facility] INDICATION: R10.12: Left upper quadrant [...] DATE/TIME OF EXAM: 06/29/2023 12:15 PM, LOCATION [facility] INDICATION: R10.12: Left upper quadrant [...] resultswithin the time period is included. Pathologist [facility] Glucose WB/POC 86 70 - 106 mg/dL 10/16/2022 8:20 AM CDT [facility] Specimen Type Cap Fingerstick 2022 8:20 AM CDT [facility] Blood BLOOD SPECIMEN / Unknown 10/16/2022 8:18 AM CDT 10/16/2022 8:20 AM CDT Jasson Carrasco MD LAB - POINT OF CARE ORDERABLES [facility] [address] [place] [address] * EGD (10/16/2022 8:05 AM CDT) Pathologist [facility] Report Endoscopy POC _ Patient Name: Tiffanie [...] Procedure Code(s): ? --- Professional --- ? 81472, Esophagogastroduod enoscopy, flexible, transoral; with directed ? submucosal injection(s), any substance ? --- Technical --- ? 13060, Esophagogastroduod enoscopy, flexible, transoral; with directed ? [...] of digestive ? system CPT copyright 2020 [employer]. All rights reserved. The codes documented in this report are preliminary and upon outsole cementer review may be revised to meet current compliance requirements. _ Jasson Carrasco MD 10/16/2022 9:00:45 AM Number of Addenda: 0 Note Initiated On: 10/16/2022 8:05 AM [facility] 10/16/2022 8:05 AM CDT Narrative Procedure Note Jasson Carrasco MD - 10/16/2022 9:01 AM CDT PLAN: 1. Sclerotherapy diet 2. PPI daily Jasson Carrasco MD GI PROCEDURE ORDERAB LES [facility] [place] [address] * EGD (08/21/2022 7:16 AM CDT) Report [...] Procedure Code(s): ? --- Professional --- ? 97544, Esophagogastroduod enoscopy, flexible, transoral; with directed ? submucosal injection(s), any substance ? --- Technical --- ? 43875, Esophagogastroduod enoscopy, flexible, transoral; with directed ? [...] of digestive ? system CPT copyright 2020 [employer]. All rights reserved. The codes documented in this report are preliminary and upon outsole cementer review may be revised to meet current compliance requirements. _ Jasson Carrasco MD 08/21/2022 8:35:24 AM Number of Addenda: 0 Note Initiated On: 08/21/2022 7:16 AM [facility] 08/21/2022 7:16 AM CDT Narrative Procedure Note Jasson Carrasco MD - 08/21/2022 8:35 AM CDT PLAN: 1. Sclerotherapy diet for 4 weeks 2. Nurse to call in 4-6 weeks to assess for improvement in BG regulation Jasson Carrasco MD GI PROCEDURE ORDERAB LES Performing Organization Address City/[facility]/ZIP Co de Phone Number [facility] [place] [address] * (ABNORMAL) VITAMIN K1 (06/05/2022 10:49 AM CDT) Only the most recent of7 resultswithin the time period is included. Vitamin K 86(L) 130 - 1500 pg/mL [facility] Comment: This test was developed and its analytical performance characteristics have been determined by [employer]. It has not been cleared or approved by the FDA. This assay has been validated pursuant to the CLIA regulations and is used for clinical purposes. Test Performed at: [facility] [address] ??[address] DOMINIQUE KOWALSKI MD 06/05/2022 10:4 9 AM CDT 06/05/2022 10:50 AM CDT Ivette Monteiro SALES OPERATIONS MANAGER-FISH AND WILDLIFE TECHNICIAN LAB - LEORA ZAID ORDERABLES [facility] [address] [place] [address] * (ABNORMAL) ZINC BLOOD (06/05/2022 10:49 AM CDT) Only the most recent of8 resultswithin the time period is included. Zinc 57(L) 60 - 130 mcg/dL [facility] Comment: This test was developed and its analytical performance characteristics have been determined by [employer]. It has not been cleared or approved by the FDA. This assay has been validated pursuant to the CLIA regulations and is used for clinical purposes. REPORT COMMENT: FASTING:YES Test Performed at: [facility] [address] ??[address] SANDRA FOX 06/05/2022 10:4 9 AM CDT 06/05/2022 10:50 AM CDT Ivette Monteiro [facility] - [facility] ORDERABLES Performing Organization Address [facility] de Phone Number [address] [address] * VITAMIN A (06/05/2022 10:49 AM CDT) Only the most recent of5 resultswithin the time period is included. Pathologist [facility] Vitamin A 47 38 - 98 mcg/dL [facility] Comment: Clin Chem Vol. 34.No.8. [id number]. 1998 Vitamin supplementation within 24 hours prior to blood draw may affect the accuracy of results. ?? This test was developed and its analytical performance characteristics have been determined by [employer]. It has not been cleared or approved by the FDA. This assay has been validated pursuant to the CLIA regulations and is used for clinical purposes. Test Performed at: [facility] [address] ??[address] DOMINIQUE KOWALSKI MD 06/05/2022 10:4 9 AM CDT 06/05/2022 10:50 AM CDT Ivette Monteiro SALES OPERATIONS MANAGER[facility]OL[facility] LAB - [facility] ORDERABLES Performing Organization Address [facility] de Phone Number [facility] [id number] [place] [address] * VITAMIN E (06/05/2022 10:49 AM CDT) Only the most recent of5 resultswithin the time period is included. Pathologist [facility] Alpha-Tocopherol 10.3 mg/L [facility] Comment: ?Reference Range ?5.7-19.9 mg/L ?Levels of alpha-tocopherol <5 mg/L are ?consistent with Vitamin E deficiency in ?adults. Vitamin supplementation within 24 hours prior to blood draw may affect the accuracy of results. ? See Note 1 Beta-Gamma Tocopherol <1.0 <4.4 mg/L [facility] Comment: See Note 1 Test Performed at: [facility] [address] ??[address] DOMINIQUE KOWALSKI MD 06/05/2022 10:4 9 AM CDT 06/05/2022 10:50 AM CDT Ivette Alyson Monteiro SALES OPERATIONS MANAGER-FISH AND WILDLIFE TECHNICIAN LAB - LE[place]A [employer] ORDERABLES Performing Organization Address [facility] de Phone Number [address] [address] * VITAMIN B1 (06/05/2022 10:49 AM CDT) Only the most recent of10 resultswithin the time period is included. [facility] Vitamin B1 Whole Blood 161 78 - 185 nmol/L [facility] Comment: Vitamin supplementation within 24 hours prior to blood draw may affect the accuracy of results. This test was developed and its analytical performance characteristics have been determined by [employer]. It has not been cleared or approved by the FDA. This assay has been validated pursuant to the CLIA regulations and is used for clinical purposes. Test Performed at: [facility] [address] ??[address] DOMINIQUE KOWALSKI MD 06/05/2022 10:4 9 AM CDT 06/05/2022 10:50 AM CDT Ivette Alyson Monteiro SALES OPERATIONS MANAGER-FISH AND WILDLIFE TECHNICIAN LAB - LE[place] ZAID ORDERABLES Performing Organization Address [facility] de Phone Number [address] [address] * PTH INTACT (06/05/2022 10:49 AM CDT) [...] or Low Normal ?High Test Performed at: [facility] [address] [place], [place] ??[address] ARACELY DANIEL MD 06/05/2022 10:4 9 AM CDT 06/05/2022 10:50 AM CDT Ivette Shields Cayetano SALES OPERATIONS MANAGER-FISH AND WILDLIFE TECHNICIAN LAB - [facility] ORDERABLES Performing Organization Address City/State/[facility] Co de Phone Number [facility] [address] [place] [address] * COPPER BLOOD (06/05/2022 10:49 AM CDT) Only the most recent of5 resultswithin the time period is included. Pathologist [facility] Copper 84 70 - 175 mcg/dL [facility]A Comment: This test was developed and its analytical performance characteristics have been determined by [employer]. It has not been cleared or approved by the FDA. This assay has been validated pursuant to the CLIA regulations and is used for clinical purposes. Test Performed at: [facility] [address] ??[address] SANDRA FOX 06/05/2022 10:4 9 AM CDT 06/05/2022 10:50 AM CDT Ivette Shields [place]etano SALES OPERATIONS MANAGER-FISH AND WILDLIFE TECHNICIAN LAB - [place] ZAID ORDERABLES Performing Organization Address [facility] de Phone Number [facility] [address] [place] [address] * FOLATE RBC (06/05/2022 10:49 AM CDT) Only the most recent of8 resultswithin the time period is included. Folate RBC 616 >280 ng/mL RBC [facility] Comment: Test Performed at: [facility] ??[address] ARACELY DANIEL MD 06/05/2022 10:4 9 AM CDT 06/05/2022 10:50 AM CDT Ivette Shields [place]et[place] SALES OPERATIONS MANAGER-[facility] LAB - [place] ZAID ORDERABLES Performing Organization Address [facility] de Phone Number [facility] [address] [place] [address] * (ABNORMAL) VITAMIN D 25-HYDROXY (06/05/2022 10:49 [...] D, (D2,D3), LC/MS/MS is recommended: order code 92099 (patients >2yrs). See Note 2 Note 1 This test was developed and its analytical performance characteristics have been determined by [employer]. It has not been cleared or approved by the FDA. This assay has been validated pursuant to the CLIA regulations and is used for clinical purposes. Note 2 For additional information, please refer to http://education.[employer]/faq/JLR509 (This link is being provided for informational/ educational purposes only.) Test Performed at: [employer] [address] [place], [place] ??[address] ARACELY DANIEL MD 06/05/2022 10:4 9 AM CDT 06/05/2022 10:50 AM CDT Ivette Shields Cayetano SALES OPERATIONS MANAGER-FISH AND WILDLIFE TECHNICIAN LAB - [place] ZAID ORDERABLES [facility] [address] [place] [address] * (ABNORMAL) CBC W/O DIFFERENTIAL (06/05/2022 10:49 [...] 12.5 fL [facility] Comment: Test Performed at: [employer] [address] [place] [address] ??[phone] ARACELY DANIEL MD 06/05/2022 10:4 9 AM CDT 06/05/2022 10:50 AM CDT Ivette Shields Cayetano SALES OPERATIONS MANAGER-FISH AND WILDLIFE TECHNICIAN LAB - HEM ATOLOGY ORDERABLES [facility] [address] [place] [address] * COMPREHENSIVE METABOLIC PANEL (06/05/2022 10:49 AM [...] 29 U/L [facility] Comment: Test Performed at: [facility]ITAL[facility] [address] [address] [facility] [place] ??[address] ARACELY DANIEL MD 06/05/2022 10:4 9 AM CDT 06/05/2022 10:50 AM CDT Ivette Shields Cayetano SHELLN-FISH AND WILDLIFE TECHNICIAN LAB - [place] [address] * PREALBUMIN (06/05/2022 10:49 AM CDT) Only the most recent of4 resultswithin the time period is included. Prealbumin 20 17 - 34 mg/dL [facility] Comment: Test Performed at: [facility] [place] ??[address] ARACELY DANIEL MD 06/05/2022 10:4 9 AM CDT 06/05/2022 10:50 AM CDT Ivette Shields Cayetano SALES OPERATIONS MANAGER-FISH AND WILDLIFE TECHNICIAN LAB - LE[place] ZAID ORDERABLES Performing Organization Address [facility] [place] [address] * MAGNESIUM BLOOD (06/05/2022 10:49 AM CDT) Only the most recent of8 resultswithin the time period is included. Magnesium 2.2 1.5 - 2.5 mg/dL [facility] Comment: Test Performed at: [place] ??[address] ARACELY DANIEL MD 06/05/2022 10:4 9 AM CDT 06/05/2022 10:50 AM CDT Ivette Alysonrenato Monteiro APRN-FISH AND WILDLIFE TECHNICIAN LAB - [place] ZAID ORDERABLES Performing Organization Address [facility] de Phone Number [place] [phone] * IRON BLOOD (06/05/2022 10:49 AM CDT) Only the most recent of5 resultswithin the time period is included. Iron 105 45 - 160 mcg/dL [facility] Comment: Test Performed at: [facility] [place] ??[address] ARACELY DANIEL MD 06/05/2022 10:4 9 AM CDT 06/05/2022 10:50 AM CDT Ivette Monteiro SALES OPERATIONS MANAGER-FISH AND WILDLIFE TECHNICIAN LAB - [place] ZAID ORDERABLES Performing Organization Address [facility] de Phone Number [place] [phone] * VITAMIN B12 (06/05/2022 10:49 AM CDT) Only the most recent of9 resultswithin the time period is included. Pathologist [facility] Vitamin B12 547 200 - 1100 pg/mL [facility] Comment: Test Performed at: [employer] [address] [place], [place] ??[address] ARACELY DANIEL MD 06/05/2022 10:4 9 AM CDT 06/05/2022 10:50 AM CDT Ivette Shields Cayetano SHELLN-FISH AND WILDLIFE TECHNICIAN LAB - [place] ZAID ORDERABLES Performing Organization Address [facility] [place] [address] * (ABNORMAL) FERRITIN (06/05/2022 10:49 AM CDT) Only the most recent of8 resultswithin the time period is included. Pathologist [facility] Ferritin 7(L) 16 - 288 ng/mL [facility] Comment: Test Performed at: [facility] [address] [place], [place] ??[address] ARACELY DANIEL MD 06/05/2022 10:4 9 AM CDT 06/05/2022 10:50 AM CDT Ivette Monteiro APRN-FISH AND WILDLIFE TECHNICIAN LAB - [place] ZAID ORDERABLES Performing Organization Address [facility] de Phone Number [place] [phone] * IRON + TIBC PANEL (08/24/2021 3:15 PM CDT) Only the most recent of2 resultswithin the time period is included. Iron 116 45 - 160 mcg/dL [facility] TIBC 440 250 - 450 mcg/dL (calc) [facility] % Saturation 26 16 - 45 % (calc) [facility] Comment: Test Performed at: [facility] [address] [place], [place] ??[address] TANESHA THOMAS DO,MPH Blood BLOOD SPECIMEN / Unknown 08/24/2021 3:15 PM CDT 08/24/2021 3:16 PM CDT Ivette Alyson Cayetano SALES OPERATIONS MANAGER-FISH AND WILDLIFE TECHNICIAN LAB - [place] ZAID ORDERABLES [facility] [address] [place] [address] * PATHOLOGY TISSUE (08/03/2020 10:12 AM CDT) Only the most recent of2 resultswithin the time period is included. Case Report Surgical Pathology Report ? Case: [id number] ? Authorizing Provider: ??Soham Farley MD ? Collected: ? 08/03/2020 10:12 AM ? Ordering Location: ? [facility] ?Received: ?08/03/2020 11:31 AM ? Pathologist: ? Vannessa Mendoza MD ? Specimen: ?Colon, hepatic flexure polyp ? 08/04/2020 2:[facility] Final Diagnosis Large intestine, hepatic flexure polyp, biopsy (A): - Tubular adenoma 08/04/2020 2:54 PM [facility] Microscopic Description and Comment Microscopic examination substantiates the final diagnosis. 08/04/2020 2:54 PM [facility] Clinical History The patient is a 60-year-old woman who presents for surveillance colonoscopy (personal history of adenomatous polyps). Operative procedure/findings: Colonoscopy - 3 mm hepatic flexure polyp, resected and retrieved. 08/04/2020 2:54 PM [facility] Gross Description The requisition and specimen(s) are identified with the patient's name, Tiffanie Ruiz. Received in formalin, specimen A is a light-baptiste mucosal tissue fragment, 0.6 x 0.3 x 0.2 cm. Entirely submitted in cassette A1. LJ 08/04/2020 2:54 PM [facility] Disclaimer The performance characteristics of all immunohistochemical and indirect immunofluorescence stains (if any) cited in this report were determined by the Histopathology Laboratory of [facility]. Some of these tests were developed by [...] the attending (teaching) pathologist. 08/04/2020 2:54 PM [facility] Embedded Images 08/04/2020 2:54 PM [facility] Biopsy, NOS COLON PART / Unknown 08/03/2020 10:12 AM CDT 08/03/2020 11:31 AM CDT Comment:Pre-op diagnosis: Screen for colon cancer [Z12.11] Soham Hutton MD LAB - PATH OLOGY/CYTOLOGY ORDERABLES Performing Organization Address [facility]/State/ZIP Co de Phone Number [facility] [address] [place] [address], [facility] [phone] * ENDOSCOPY, COLON, SCREENING (08/03/2020 9:10 AM [...] Procedure Code(s): ? --- Professional --- ? 29767, Colonoscopy, flexible; with biopsy, single or multiple Diagnosis Code(s): ?--- Professional --- ?Z86.010, Personal history of colonic polyps ?K63.5, Polyp of colon ?K57.30, Diverticulosis of large intestine without ?perforation or abscess without bleeding CPT copyright 2019 [employer]. All rights reserved. The codes documented in this report are preliminary and upon outsole cementer review may be revised to meet current compliance requirements. Soham Farley MD 08/03/2020 10:38:53 AM This report has been signed electronically. Note Initiated On: 08/03/2020 9:10 AM Number of Addenda: 0 ? [facility] ? [address] [place], [place] [id number] [place] [address] PROVATION 08/03/2020 9:10 AM CDT Soham Hutton MD GI PROCEDU RE ORDERABLES [facility] PROVATION * EGD (08/03/2020 8:27 AM [...] stomal ulceration. This was traversed. The ? vexvu-ef-cihvvjj limb was characterized by healthy appearing mucosa. [...] Procedure Code(s): ? --- Professional --- ? 05298, Esophagogastroduoden oscopy, flexible, transoral; diagnostic, ? including collection of specimen(s) by brushing or washing, when ? performed (separate procedure) Diagnosis Code(s): ?--- Professional --- ?Z98.0, Intestinal bypass and anastomosis status ?R10.13, Epigastric pain CPT copyright 2019 [employer]. All rights reserved. The codes documented in this report are preliminary and upon outsole cementer review may be revised to meet current compliance requirements. Soham Farley MD 08/03/2020 10:33:04 AM This report has been signed electronically. Note Initiated On: 08/03/2020 8:27 AM Number of Addenda: 0 ? [facility] ? [address] [place], [place] [address] [place] [address] PROVATION 08/03/2020 8:27 AM CDT Soham Hutton MD GI PROCEDU RE ORDERABLES [facility] PROVATION * SELENIUM (10/16/2019 12:14 PM CDT) Only the most recent of2 resultswithin the time period is included. Pathologist [facility] Selenium 139 63 - 160 mcg/L [facility] Comment: This test was developed and its analytical performance characteristics have been determined by [employer]. It has not been cleared or approved by the FDA. This assay has been validated pursuant to the CLIA regulations and is used for clinical purposes. Test Performed at: [facility] [address] [place], [place] ??[address] KAIT BLACK MD,PHD 10/16/2019 12:1 4 PM CDT 10/16/2019 12:14 PM CDT Ivette Monteiro SALES OPERATIONS MANAGER-FISH AND WILDLIFE TECHNICIAN LAB - LEORA ZAID ORDERABLES Performing Organization Address [facility] Co de Phone Number [facility] [address] [place] [address] * HELICOBACTER PYLORI UREASE (STL) (09/19/2019 9:02 AM CDT) Only the most recent of2 resultswithin the time period is included. [facility] Helicobacter pylori Urease Initial Negative Negative 09/20/2019 3:43 PM CDT [facility] Helicobacter pylori Urease Final Negative Negative 09/20/2019 3:43 PM CDT [facility] Comment:This is an appended report. These results have been appended to a previously preliminary verified report. Microbiology GASTRIC ANTRAL BIOPSY SPECIMEN / Unknown 09/19/2019 9:02 AM CDT 09/19/2019 9:45 AM CDT Jasson Carrasco MD LAB - MICROBIOLOGY O RDERABLES Performing Organization Address City/[facility]/ZIP Co de Phone Number [facility] [address] [place] [address] * LAB RESULTS ORDER (04/04/2019 7:44 AM BLOW TORCH OPERATOR) Narrative 04/04/2019 7:44 AM BLOW TORCH OPERATOR Ordered by an unspecified provider. Scanned Document LAB - THERAPEUTIC DR UG MONITORING ORDERABLES * PT-INR (08/27/2018 2:24 PM CDT) [facility] INR 1.1 0.8 - 1.2 [facility] [...] Resulting Agency Comment Lab Testing performed at: [address] ??[facility] [id number] Ivette Monteiro SALES OPERATIONS MANAGER-FISH AND WILDLIFE TECHNICIAN LAB - COA GULATION ORDERABLES [facility] INSURANCE BILL [address] [place] [address] * (ABNORMAL) CBC WITH DIFFERENTIAL (07/17/2018 2:54 PM CDT) Only the most recent of9 resultswithin the time period is included. [facility] WBC 6.5 3.4 - 10.8 x10E3/uL [...] Resulting Agency Comment Lab Testing performed at: [place] [id number] [facility] ??[facility] [phone] Steph Mar APRN-FISH AND WILDLIFE TECHNICIAN LAB - HEMATO LOGY ORDERABLES [facility] INSURANCE BILL [address] [place] [address] * FL UGI SERIES WO KUB (06/20/2018 [...] - 06/20/2018 6:08 AM CDT Zahira Newell, KERRY-AIRCRAFT MAINTENANCE ENGINEER ? 06/19/2018 12:29 PM Endotracheal Tube Placement: ? Patient Location: OR. Procedure: intubation ([address]). Procedure Section: ?? Sedation: under general anesthesia. [...] resultswithin the time period is included. Pathologist [facility] Glucose 108(H) 74 - 106 mg/dL 06/20/2018 4:37 AM CDT [facility] Sodium 138 136 - 145 mmol/L 06/20/2018 4:37 AM CDT [facility] Potassium 4.0 3.5 - 5.1 mmol/L 06/20/2018 4:37 AM CDT [facility] Chloride 102 98 - 107 mmol/L 06/20/2018 4:37 AM CDT [facility] CO2 25 23 - 31 mmol/L 06/20/2018 4:37 AM CDT [facility] Calcium 9.6 8.4 - 10.2 mg/dL 06/20/2018 4:37 AM CDT [facility] Anion Gap 11 8 - 16 mmol/L 06/20/2018 4:37 AM CDT [facility] BUN 17 9.8 - 20.1 mg/dL 06/20/2018 4:37 AM CDT [facility] Creatinine 0.78 0.55 - 1.02 mg/dL [...] LAB - CHEMISTRY GILBERTO COULTER [facility] [address] [place] [address] * GROSS + MICRO EXAM (STL) (06/19/2018 2:00 PM CDT) Case Report Surgical Pathology Report ? Case: [id number] ? Authorizing Provider: ??Jasson Carrasco MD ? [...] in cassette A1. CH/na 06/24/2018 9:09 AM [facility] Microscopic Description Sections show mild [...] without significant fibrosis. 06/24/2018 9:09 AM T [facility] Disclaimer All histochemical and/or immunohistochemical results are interpreted with controls that demonstrate appropriate staining reactions before reporting results. Note on use of immunocytochemistry reagents: This test was developed and its performance characteristic determined by [facility], Department of Laboratory Medicine. It has not been cleared or approved by the U.S. Food and Drug Administration (FDA). The FDA has determined that such clearance or approval is not necessary. The test is used for clinical purpose. It should not be regarded as investigational or for research. This laboratory is certified to perform high complexity testing. 06/24/2018 9:09 AM T [facility] Embedded Images 06/24/2018 9:09 AM T [facility] Pathology/Cytolo gy NEEDLE BIOPSY OF LIVER / Unknown 06/19/2018 2:00 PM CDT 06/19/2018 3:24 PM CDT Jasson Carrasco MD LAB - PATHOLOGY/CYTO LOGY ORDERABLES [facility] [address] [place] [address] * (ABNORMAL) POTASSIUM BLOOD (06/19/2018 9:02 AM CDT) Potassium 3.3(L) 3.5 - 5.1 mmol/L 06/19/2018 9:49 AM CDT [facility] Blood BLOOD SPECIMEN / Unknown Venipuncture / Unknown 06/19/2018 9:02 AM CDT 06/19/2018 9:39 AM CDT Diana Felipe DO LAB - CHEMISTRY GILBERTO COULTER [facility] [address] [place] [address] * NM HEPATOBILIARY W CCK EF (04/09/2018 2:08 PM BLOW TORCH OPERATOR) Anatomical Region Laterality Modality Abdomen Nuclear Medicine 04/09/2018 2:09 PM BLOW TORCH OPERATOR Impressions 04/09/2018 2:10 PM BLOW TORCH OPERATOR 1. Initial phase of nuclear medicine HIDA scan is within normal limits, demonstrating patency of the cystic and common bile ducts. 2. Gallbladder ejection fraction is normal. Reading Radiologist: Awilda Gonzalez MD on 04/09/2018 at 2:10 PM Narrative 04/09/2018 2:10 PM BLOW TORCH OPERATOR NM Hepatobiliary Scan (HIDA) Indication: Abdominal pain. [...] 04/09/2018 at 2:10 PM Ivette Shields [employer] SALES OPERATIONS MANAGER-FISH AND WILDLIFE TECHNICIAN NM ORDERA BLES * LAB (03/21/2018) Jasson Carrasco MD SCANNING ONLY * US ABDOMEN LIMITED (03/19/2018 10:29 AM BLOW TORCH OPERATOR) Anatomical Region Laterality Modality Abdomen Ultrasound 03/19/2018 11:0 9 AM BLOW TORCH OPERATOR Impressions 03/19/2018 11:10 AM BLOW TORCH OPERATOR Hepatic steatosis otherwise unremarkable. Reading Radiologist: Kathi Maloney MD on 03/19/2018 at 11:10 AM Narrative 03/19/2018 11:10 AM BLOW TORCH OPERATOR RIGHT UPPER QUADRANT ULTRASOUND INDICATION:Nausea vomiting abdominal [...] * ENDOTRACHEAL TUBE NOTE (12/25/2017 6:02 AM BLOW TORCH OPERATOR) Narrative Diana Felipe, DO - 12/25/2017 6:02 AM BLOW TORCH OPERATOR Zahira Newell, SALES OPERATIONS MANAGER-AIRCRAFT MAINTENANCE ENGINEER ? 12/24/2017 ??9:09 AM Endotracheal Tube Placement: ? Patient Location: OR. Procedure: intubation ([id number]). Procedure Section: ?? Sedation: under general anesthesia. [...] RDERABLES * EKG 12-LEAD (12/24/2017 8:20 AM BLOW TORCH OPERATOR) Only the most recent of2 resultswithin the time period is included. Ventricular Rate 71 BPM [facility] Atrial Rate 78 BPM [facility] QRS Duration ms 74 ms [facility] Q-T Interval ms 378 ms [facility] QTC Calculation (Bezet) 410 ms [facility] Calculated P [place] 0 degrees [facility] Calculated R [place] 15 degrees [facility] Calculated T [place] 11 degrees [facility] Interpretation EKG Sinus rhythm Abnormal ECG When compared with ECG of 29-NOV-2015 12:51, No significant change was found Confirmed by PENELOPE CLARK MD ([id number]) on 12/24/2017 3:17:11 PM [facility] MUSE 12/24/2017 8:20 AM BLOW TORCH OPERATOR 12/24/2017 3:17 PM BLOW TORCH OPERATOR Diana Felipe DO ECG ORDERABLES [facility] MUSE [...] This procedure was performed using water-soluble contrast. Incinerator Attendant film shows a laparoscopic gastroesophageal band in [...] This procedure was performed using water-soluble contrast. Incinerator Attendant film shows a laparoscopic gastroesophageal band in [...] on 09/25/2017 at 12:07 PM Steph Mar SALES OPERATIONS MANAGER-FISH AND WILDLIFE TECHNICIAN FLUOROSCOPY ORDERABLES * FL LAP BAND ADJUST VIA PORT (03/30/2016 10:50 AM BLOW TORCH OPERATOR) Only the most recent of20 resultswithin the time period is included. Anatomical Region Laterality Modality Radiographic Caroline ging 03/30/2016 11:3 0 AM BLOW TORCH OPERATOR Narrative 03/30/2016 11:31 AM BLOW TORCH OPERATOR FLUOROSCOPY: Less than 1 hour ??of fluoroscopy [...] ORDERABL ES * EGD (02/09/2016 9:45 AM BLOW TORCH OPERATOR) Narrative [facility] - 02/09/2016 9:45 AM BLOW TORCH OPERATOR Jona Dumont MD ? 02/09/2016 ??9:45 AM [facility] Operative Report OPERATIVE REPORT PATIENT:Tiffanie Ruiz MR#: ADMIT DATE: 02/09/2016 ??8:24 AM ACCT#: DATE OF SURGERY: 02/09/2016 : 1960 PHYSICIAN: Jona Dumont MD 56 yrs Body mass index is 44.29 kg/(m^2). PREOPERATIVE DIAGNOSES: dysphagia POSTOPERATIVE DIAGNOSES: SAME Hiatal hernia Surgeon: Jona Dumont MD THEATER EDUCATION TEACHER: none PROCEDURES PERFORMED: Esophagogastroduodenoscopy ANESTHESIA: MAC by [...] GI PROCEDURE ORDERAB LES Performing Organization Address [facility] de Phone Number [facility] [place] [address] * CARDIAC EKG ORDER (11/30/2015 9:57 PM CDT) Narrative 11/30/2015 9:57 PM CDT Ordered by an unspecified provider. Scanned Document CARDIAC SERVICES ORD ERABLES * (ABNORMAL) URINALYSIS MICROSCOPIC ONLY W/REFLEX CULTURE (11/29/2015 6:03 PM CDT) Epithelial Cell UA 5-10(A) 0-2, 2-5 # /hpf 11/29/2015 6:59 PM CDT [facility] Hyaline Casts 2-5(A) 0 - 2 # /lpf 11/29/2015 6:59 PM CDT [facility] Urine URINE SPECIMEN OBTAINED BY CLEAN CATCH PROCEDURE / Unknown 11/29/2015 6:03 PM CDT 11/29/2015 6:06 PM CDT Laura Lakhani MD LAB - URINALYSIS ORD ERABLES Performing Organization Address [facility] Co de Phone Number [facility] [address] [place] [address] * (ABNORMAL) URINALYSIS ROUTINE W/REFLEX TO CULTURE (11/29/2015 6:03 PM CDT) Color UA Yellow Straw, Yellow, Dark Yellow 11/29/2015 6:21 PM CDT [facility] Clarity UA Cloudy 11/29/2015 6:21 PM CDT [facility] Specific Dennison UA 1.019 1.005 - 1.030 11/29/2015 6:21 PM CDT [facility] pH UA 5.0 5.0 - 8.0 pH 11/29/2015 6:21 PM CDT [facility] Protein UA Negative Negative 11/29/2015 6:21 PM CDT [facility] Blood UA Negative Negative 11/29/2015 6:21 PM T [facility] Leukocyte UA 2+(A) Negative 11/29/2015 6:21 PM CDT [facility] Nitrite UA Negative Negative 11/29/2015 6:21 PM CDT [facility] Glucose UA Negative Negative 11/29/2015 6:21 PM T [facility] Ketone UA 2+(A) Negative 11/29/2015 6:21 PM CDT [facility] Bilirubin UA Negative Negative 11/29/2015 6:21 PM CDT [facility] Urobilinogen UA 0.2 0.1 - 1.0 EU/dL 11/29/2015 6:21 PM T [facility] WBC UA Auto 10-20(A) 0-2, 2-5 # /hpf 11/29/2015 6:21 PM T [facility] RBC UA Auto 2-5 0-2, 2-5 # /hpf 11/29/2015 6:21 PM T [facility] Bacteria UA Auto 1+(A) None seen 11/29/19 16 6:21 PM [facility] Hyaline Casts UA Auto Reflex to manual(A) 0 - 2 #/lpf 11/29/2015 6:21 PM [facility] Reflex Status Culture to follow 11/29/2015 6:21 PM [facility] Urine URINE SPECIMEN OBTAINED BY CLEAN CATCH PROCEDURE / Unknown 11/29/2015 6:03 PM CDT 11/29/2015 6:06 PM T Laura Lakhani MD LAB - URINALYSIS ORD ERABLES Performing Organization Address [facility] Co de Phone Number [facility] [address] [place] [address] * CULTURE URINE (11/29/2015 6:03 PM CDT) Culture <10,000 CFU/mL urogenital nayla RAVI 12/01/2015 1:47 PM CDT [facility] Urine URINE SPECIMEN OBTAINED BY CLEAN CATCH PROCEDURE / Unknown 11/29/2015 6:03 PM CDT 11/29/2015 6:06 PM CDT Laura Lakhani MD LAB - MICROBIOLOGY O RDERABLES Performing Organization Address [facility] Co de Phone Number [facility] [address] [place] [address], [facility] [phone] * TROPONIN I (11/29/2015 4:43 PM CDT) Only the most recent of2 resultswithin the time period is included. Troponin I <0.015 0.000 - 0.049 ng/mL 11/29/2015 5:14 PM CDT [facility] Blood BLOOD SPECIMEN / Unknown 11/29/2015 4:43 PM CDT 11/29/2015 4:53 PM CDT Narrative [facility] - 11/29/2015 5:14 PM CDT Note: [...] - CHEMISTRY ORDE RABLES Performing Organization Address [facility] Co de Phone Number [facility] [address] [place] [address] * XR CHEST PA AND LATERAL (11/29/2015 [...] - 220 U/L 11/29/2015 4:22 PM CDT [facility] Blood BLOOD SPECIMEN / Unknown 11/29/2015 1:38 PM CDT 11/29/2015 4:13 PM CDT Laura Lakhani MD LAB - CHEMISTRY GILBERTO COULTER [facility] [address] [place] [address] * PATHOLOGY/GENETICS HISTORICAL-ONBASE (09/09/2015) Only the most recent of5 resultswithin the time period is included. 09/09/2015 Historical Provider LAB - CHEMISTRY Conchis PINA [facility] [address] * EGD (04/20/2010) Jasson Carrasco MD GI PROCEDURE ORDERAB LES * PATHOLOGY REPORTS - HPF HISTORICAL (12/20/2009 11:03 PM BLOW TORCH OPERATOR) 12/20/2009 11:0 3 PM BLOW TORCH OPERATOR Narrative [facility] - 12/20/2009 11:03 PM BLOW TORCH OPERATOR Soham Hutton MD LAB - PATH OLOGY/CYTOLOGY ORDERABLES [facility] * (ABNORMAL) LIPID PROFILE (01/14/2009 1:20 PM BLOW TORCH OPERATOR) Only the most recent of2 resultswithin the [...] patients according to data reported from the [place] Study by Tanesha Huffman M.D. ??The predictive [...] BLOOD SPECIMEN / Unknown 01/14/2009 1:20 PM BLOW TORCH OPERATOR 01/14/2009 1:48 PM BLOW TORCH OPERATOR Scott Claros MD LAB - CHEMISTRY O YOVANI Performing Organization Address [facility] de Phone Number [facility] [address] [place] [address] * HEMOGLOBIN A1C (07/23/2008 11:32 AM CDT) Hemoglobin A1c 5.7 3.9 - 6.1 % [facility] Estimated Average Glucose 116.9 mg/dl [facility] BLOOD SPECIMEN / Unknown 07/23/2008 11:32 AM CDT Narrative [facility] - 07/23/2008 9:23 PM CDT [id number] Resulting Agency Comment Performed By [facility] - [facility] ? [address] ? [place] [address] Scott Claros MD LAB - CHEMISTRY O YOVANI Performing Organization Address [facility] de Phone Number [facility] [address] [place] [address] * TSH (07/23/2008 11:32 AM CDT) TSH 0.810 0.35 - 5.50 uIU/ml [facility] BLOOD SPECIMEN / Unknown 07/23/2008 11:32 AM CDT Narrative [facility] - 07/23/2008 9:22 PM CDT [id number] Resulting Agency Comment Performed By [facility] ? [address] [place] [address] ? [place] [address] Scott Claros MD LAB - CHEMISTRY O YOVANI Performing Organization Address [facility] de Phone Number [facility] [address] [place] [address] * IRON + TRANSFERRIN PANEL (07/23/2008 11:32 AM CDT) Iron 141.5 50 - 170 ug/dl [facility] Transferrin 257.0 250 - 380 mg/dl [facility] TIBC Calculated 321 250 - 450 mg/dl [facility] Iron Saturation % 44 20 - 55 % [facility] BLOOD SPECIMEN / Unknown 07/23/2008 11:32 AM CDT Narrative Resulting Agency Comment Performed By [facility] ? [address] [place] [address] ? [place] [address] Scott Claros MD LAB - CHEMISTRY O YOVANI Performing Organization Address [facility] de Phone Number [facility] [address] [place] [address] * HCG URINE QUALITATIVE - POINT OF CARE (01/30/2008 3:00 PM BLOW TORCH OPERATOR) Only the most recent of3 resultswithin the time period is included. HCG Qual Urine Not Detected Not Detected [facility] Comment , Urine: Test performed by [facility] Staff [facility] URINE / Unknown 01/30/2008 3 :00 PM BLOW TORCH OPERATOR Rohith Ortiz DO LAB - POINT OF CAR E ORDERABLES Performing Organization Address [facility] de Phone Number [facility] * CULTURE BLOOD (01/30/2008 1:40 PM BLOW TORCH OPERATOR) Only the most recent of2 resultswithin the time period is included. Result [facility] Comment: Final CULTURE ??No Growth BLOOD SPECIMEN / Unknown 01/30/2008 1:40 PM BLOW TORCH OPERATOR 01/30/2008 1:51 PM BLOW TORCH OPERATOR Narrative Resulting Agency Comment Performed By [facility] ? [address] ? [place] [address] Stephanie Candelaria MD LAB - MICROBIOLO GY ORDERABLES Performing Organization Address [facility] Co de Phone Number [facility] * CULTURE WOUND (01/30/2008 12:54 PM BLOW TORCH OPERATOR) Result [facility] Comment: Final GRAM STAIN Light rbc's Rare WBC's No organisms seen ?? CULTURE ENTEROCOCCI ??Light ??Ampicillin ?RAVI ?Sensitive ?0.5 ?? ug/ml ??Vancomycin ?RAVI ?Sensitive ?<=0.5 ?? ug/ml DIPHTHEROIDS ??Light ??two strains ??Probable skin nayla ? contaminant. ABDOMEN AND PELVIS / Unknown 01/30/2008 12:54 PM BLOW TORCH OPERATOR 01/30/2008 1:13 PM BLOW TORCH OPERATOR Narrative Resulting Agency Comment Performed By [facility] ? [address] ? [place] [address] Stephanie Candelaria MD LAB - MICROBIOLO GY ORDERABLES Performing Organization Address City/[facility] Co de Phone Number [facility] * TYPE + SCREEN PANEL (01/15/2008 8:10 AM BLOW TORCH OPERATOR) ABO Rh AB Pos [facility] Antibody Screen Neg [facility] BLOOD SPECIMEN / Unknown 01/15/2008 8:10 AM BLOW TORCH OPERATOR Tulio Martinez MD LAB - BLOOD BANK OR DERABLES Performing Organization Address City/[facility]/ZIP Co de Phone Number [facility] Care Teams Burlap Man Relationship Specialty Start Date End Date Jona Bravo MD [address] [place] [id number] PCP - General Internal Medicine 10/16/22
--- OUTSIDE RECORDS SUMMARY | 2024-03-07 01:59 | XMS_ITS | Encounter Summary ---
Author Organization [facility] Address [address] [place] [address] Care Team Providers Care Cable Respooler Name Role Phone Jona Bravo MD Primary Care Provider [phone] Reason for Visit * Reason Comments Question Encounter Details Date Type Department Care Team ([facility] st Contact Info) Description 03/23/2023 Telephone [facility] Primary Care [address] [place] [address] Jona Bravo MD [address] [facility] [address] [place] [address] Question Social History Tobacco Use [...] any clubs o r organizations such as restorationist groups, unions, fraternal or athletic groups, or [...] on file Legal Sex Female 9:43 AM SENIOR TAX SPECIALIST Gender Identity Not on file Sexual Orientation Not on file 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 Topic: Patient or Caregiver Communication Request >> Mar 23, 2023 12:21 PM David Monte wrote: Patient or Caregiver calling to update PCP team on status after a recent visit Caller: Eda Patient/Caregiver Callback Number: [phone] Call Notes: Message: Eda is calling to check the status of fax requesting brace for lower back and knees of patient. Informed Eda that we put the request on Dr. Bravo's desk. She wanted io inform they need the request back within 3-5 days. Please Advise OR TAX SPECIALIST documented in this encounter Plan of Treatment Upcoming Encounters Date Type Department Care Team (Late st Contact Info) Description 04/23/2024 1:20 PM CDT Office Visit [facility] Care [address] [place] [phone] Jona Bravo MD [address] [place] [address] [address] [place] [address] 08/25/2024 10:40 AM CDT Office Visit [address] [place] [address] Jona Bravo MD [address] [place] [address] [place] [address] documented as of this encounter Visit Diagnoses Not on filedocumented in this encounter Care Teams Cable Respooler Relationship Specialty Start Date End Date Jona Bravo MD PCP - General Internal Medicine 11/25/15 documented as of this encounter
--- OUTSIDE RECORDS SUMMARY | 2024-03-07 01:59 | XMS_ITS | Clinical Summary ---
Author Organization [facility] Address [address] [facility] [place] [address] Care Team Providers Care Slip Box Changer Name Role Phone Jona Bravo MD Primary Care Provider [phone] Source Comments [facility],non-owned Affiliates and Associated Physician Practices is amultiple site organization consisting of ambulatory clinics and hospital sitesin [place], [place], [place] and [place]. This disclosure is being madepursuant to the Care Everywhere program and may not contain all information available regarding this patient. Last updated 17.[facility] Allergies Active Allergy Reactions Criticality Noted Date [...] Units/L by mouth once daily Active Biotin 26014 MCG TBDP Take 1 tablet by mouth [...] mouth once daily 04/21/2021 Active nystatin (NYSTOP) 691248 UNIT/GM powder APPLY POWDER TOPICALLY TO AFFECTED [...] 01/15/08: Lap banding by Dr. Claros at [facility] Had a port leak with subsequent [...] st Contact Info) Description 04/10/2024 8:30 AM TECHNOLOGY APPLICATIONS CONSULTANT Office Visit [facility] [address] [place] [phone] Soham Hutton MD [address] [address] Health Maintenance Due Date Last Done Comments [...] 29 U/L [facility] Comment: Test Performed at: [facility] [address] [address] ??[id number] ARACELY DANIEL MD 06/05/2022 10:4 9 AM CDT 06/05/2022 10:50 AM CDT Ivettehandy Shields [place] DAIRY NUTRITIONIST-PRODUCTION CORRUGATOR LAB - LEORA ZAID ORDERABLES [facility] [address] [place] [address] * ENDOSCOPY, COLON, SCREENING (08/03/2020 9:10 AM [...] Procedure Code(s): ? --- Professional --- ? 40321, Colonoscopy, flexible; with biopsy, single or multiple Diagnosis Code(s): ?--- Professional --- ?Z86.010, Personal history of colonic polyps ?K63.5, Polyp of colon ?K57.30, Diverticulosis of large intestine without ?perforation or abscess without bleeding CPT copyright 2019 [employer]. All rights reserved. The codes documented in this report are preliminary and upon spring coiler hand review may be revised to meet current compliance requirements. Soham Farley MD 08/03/2020 10:38:53 AM This report has been signed electronically. Note Initiated On: 08/03/2020 9:10 AM Number of Addenda: 0 ? [facility] ? [address] [place] [address] [facility] 08/03/2020 9:10 AM CDT Soham Hutton MD GI PROCEDU RE ORDERABLES [facility] * HEMOGLOBIN A1C (07/23/2008 11:32 AM CDT) Hemoglobin A1c 5.7 3.9 - 6.1 % [facility] Estimated Average Glucose 116.9 mg/dl [facility] BLOOD SPECIMEN / Unknown 07/23/2008 11:32 AM CDT Narrative [facility] - 07/23/2008 9:23 PM CDT [id number] Resulting Agency Comment Performed By [facility] - [facility] ? [address] ? [place] [address] Scott Claros MD LAB - CHEMISTRY O RDERABLES [facility] [address] [place] [address] from Last 3 Months or Most Recently Relevant to Health Maintenance Advance Directives * Full Code (Latest Code Status on File) Date Activated Date Inactivated Comments 06/19/2018 5:17 PM 06/20/2018 8:12 PM * Full Code Date Activated Date Inactivated Comments 12/24/2017 11:20 AM 12/25/2017 12:40 PM Care Teams Slip Box Changer Relationship Specialty Start Date End Date Jona Bravo MD [address] [place] [phone] PCP - General Internal Medicine 10/16/22
--- OUTSIDE RECORDS SUMMARY | 2024-03-07 01:59 | XMS_ITS | Clinical Summary ---
Author Organization [facility] Address [facility] [facility] [place] [address] [place] [address] Care Team Providers Care Document Management Consultant Name Role Phone Unavailable Primary Care Provider [...]
--- OUTSIDE RECORDS SUMMARY | 2024-03-07 01:59 | XMS_ITS | Data Portability ---
Author Organization [facility] [place] Address [address] [place] [address] Assessment No assessment recorded. Plan of Treatment Reminders Order Date Submit Date Provider Last Modified By Organization Details Last Modified Time Details Appointments [facility] 2024 10:00A Naomi NEWELL MD Not available Not available Not available Lab testoster one, total, serum 2023 [facility] (Lab), [address] [place], [address], 01/24/2024 22:07:50 testoster one, free, serum 2023 024 [facility] (Lab), [address], [place], [address], 01/24/2024 22:07:50 CMP, serum or plasma 2023 024 [facility] (Lab), [address], [place], [address], 01/24/2024 22:07:49 Referral None recorded. Procedures None recorded. Surgeries None recorded. Imaging None recorded. Medication Orders clobetaso l 0.05 % topical ointment [email or web address] [place] [address] Pharmacy 1071, [address] [facility], [place], [address], 12/19/2023 12:05:26 estradiol 0.01% (0.1 mg/gram) vaginal cream 2023 024 [facility], [address] [place], [address], 01/18/2024 16:24:04 Patient TargetsNo targets recorded. Patient InstructionsNo instructions recorded. Reason for Referral None Reported. Results Created Date Observation Date Name Description Value Unit Range Abnormal Flag Note LastModifiedBy Organization Detail LastModifiedTime 01/18/20 24 01/18/2024 CMP(C OMPRE HENSI VE METAB OLIC PANEL ) sodium 141 mmol/ L 133-14 6 Not Available [facility] (Lab) [address], [place], [address], 01/24/2024 22:07:49 01/18/20 24 01/18/2024 CMP(C OMPRE HENSI VE METAB OLIC PANEL ) potassium 4.1 mmol/ L 3.5-5. 1 Not Available [facility] (Lab) [address] [place], [address], 01/24/2024 22:07:49 01/18/20 24 01/18/2024 CMP(C OMPRE HENSI VE METAB OLIC PANEL ) chloride 105 mmol/ L 98-107 Not Available [facility] (Lab) [address] [place], [address], 01/24/2024 22:07:49 01/18/20 24 01/18/2024 CMP(C OMPRE HENSI VE METAB OLIC PANEL ) carbon dioxide 30 mmol/ L 21-31 Not Available [facility] (Lab) [address] [place], [address], 01/24/2024 22:07:49 01/18/20 24 01/18/2024 CMP(C OMPRE HENSI VE METAB OLIC PANEL ) anion gap 6 mmol/ L 4-13 Not Available [facility] (Lab) [address] [place], [address], 01/24/2024 22:07:49 01/18/20 24 01/18/2024 CMP(C OMPRE HENSI VE METAB OLIC PANEL ) blood urea nitrogen 23 mg/dL 7-[address] [facility] (Lab) [address], [place], [address], 01/24/2024 22:07:49 01/18/20 24 01/18/2024 CMP(C OMPRE HENSI VE METAB OLIC PANEL ) creatinine 0.69 mg/dL 0.60-1 .30 Not Available [facility] (Lab) [address], [place], [address], 01/24/2024 22:07:49 01/18/20 24 01/18/2024 CMP(C OMPRE HENSI VE METAB OLIC PANEL ) egfrcr (CKD-epi 2020) >90 mL/mi n/1.7 3_m2 >=60 Not Available [facility] (Lab) [address], [place], [address], 01/24/2024 22:07:49 01/18/20 24 01/18/2024 CMP(C OMPRE HENSI VE METAB OLIC PANEL ) calcium 9.3 mg/dL 8.3-10 .5 Not Available [facility] (Lab) [address], [place], [address], 01/24/2024 22:07:49 01/18/20 24 01/18/2024 CMP(C OMPRE HENSI VE METAB OLIC PANEL ) glucose 81 mg/dL 70-100 Not Available [facility] (Lab) [address], [place], [address], 01/24/2024 22:07:49 01/18/20 24 01/18/2024 CMP(C OMPRE HENSI VE METAB OLIC PANEL ) protein, total 6.7 g/dL 6.4-8. 3 Not Available [facility] (Lab) [address], [place], [address], 01/24/2024 22:07:49 01/18/20 24 01/18/2024 CMP(C OMPRE HENSI VE METAB OLIC PANEL ) albumin 4.5 g/dL 3.5-5. 0 Not Available [facility] (Lab) [address], [place], [address], 01/24/2024 22:07:49 01/18/20 24 01/18/2024 CMP(C OMPRE HENSI VE METAB OLIC PANEL ) ALT 54 units /L 9-43 high Not Available [facility] (Lab) [address], [place], [address], 01/24/2024 22:07:49 01/18/20 24 01/18/2024 CMP(C OMPRE HENSI VE METAB OLIC PANEL ) alkaline phosphatase 64 units /L 34-104 Not Available [facility] (Lab) [address], [place], [address], 01/24/2024 22:07:49 01/18/20 24 01/18/2024 CMP(C OMPRE HENSI VE METAB OLIC PANEL ) AST 42 units /L 13-39 high Not Available [facility] (Lab) [address], [place], [address], 01/24/2024 22:07:49 01/18/20 24 01/18/2024 CMP(C OMPRE HENSI VE METAB OLIC PANEL ) bilirubin, total 0.7 mg/dL 0.2-1. 2 Not Available [facility] (Lab) [address] [place], [address], 01/24/2024 22:07:49 01/18/20 24 01/18/2024 TESTO STERO NE, TOTAL testosterone , total <10 NG/dL 0-[address] [facility] (Lab) [address] [place], [address], 01/24/2024 22:07:50 01/18/20 24 01/18/2024 TESTO STERO [...] [facility] [place], [place]. It has not been clear ed or appro otilia by the U.S. Food and Drug Admin istra tion. This assay has been valid ated pursu ant to the CLIA regul ation s and is used for clini fortunato purpo ses. Perfo rming Organ izati on Infor matio n: Site ID: AMD Name: [facility] Addre ss: [id number] [facility] [place], [place] Direc tor: Nolan Coelho MD PhD Not Available [facility] (Lab) [address], [place], [address], 01/24/2024 22:07:50 Result Notes None recorded. Procedures Surgical History Date Name Laterality Status Provider Name and Address Organization Details Recorded Time 11/18/19 23 completed [facility] 12/18/2023 17:38:10 11/14/19 23 Date of Last Mammogram completed [facility] 12/18/2023 17:38:32 06/13/19 23 Most Recent Bone Density completed [facility] 12/18/2023 17:38:32 11/07/19 20 Date of Last Colonoscopy completed [facility] 12/18/2023 17:38:32 06/25/19 20 Date of Last Pap Smear completed [facility] 12/18/2023 17:38:32 06/24/19 19 completed [facility] 12/18/2023 17:38:10 06/24/19 19 Gastric Bypass completed [facility] 12/18/2023 17:38:10 06/20/19 19 Bariatric Surgery completed [facility] 12/18/2023 17:38:10 06/24/19 00 Colonoscopy completed [facility] 12/18/2023 17:38:10 Gastric Bypass completed [facility] 12/18/2023 17:38:10 LEEP completed [facility] 12/18/2023 17:38:10 Dilation and Curettage completed [facility] 12/18/2023 17:38:10 Orthopedic Surgery completed [facility] 12/18/2023 17:38:10 Endometrial Ablation completed [facility] 12/18/2023 17:38:10 Hysteroscopy completed [facility] 12/18/2023 17:38:10 Laparoscopy completed [facility] 12/18/2023 17:38:10 Endometrial Biopsy completed [facility] 12/18/2023 17:38:10 Other completed [facility] 12/18/2023 17:38:10 Total Hysterectomy completed [facility] 12/18/2023 17:38:10 Appendectomy completed [facility] 12/18/2023 17:38:10 Imaging Results None recorded. Procedure Notes None recorded. Medical Equipment None Reported. Allergies Allergen ID Allergen Name Allergen Category Reaction Reaction Severity Criticality Documentation Date Start Date Code Code System Note Provider Name and Address Organization Details Recorded Time 60008 codeine medicatio n Not available Not available Not available 12/18/2023 2670 RxNorm Renetta Maldonado [facility] 4 17:48:47 06221 meperidin e medicatio n Not available Not available Not available 12/18/2023 6754 RxNorm Renetta Maldonado [facility] 4 17:49:01 51027 levofloxa vishnu medicatio n Not available Not available Not available 12/18/2023 82786 RxNorm Renetta Maldonado [facility] 4 17:49:16 51638 gabapenti n medicatio n Not available Not available Not available 12/18/2023 87125 RxNorm Renetta Maldonado [facility] 4 17:49:27 89727 adhesive tape environme nt,medica tion Not available Not available Not available 12/18/2023 02524 UNK Renetta Maldonado [facility] 4 17:49:34 24009 doxycycli ne Not available Not available Not available Not available 12/18/2023 3640 RxNorm Renetta Maldonado [facility] 4 17:49:45 Medications Name Sig Start [...] Address Organization Details Last Updated DateTime 12/18/2023 94489.14 g 33.8 kg/m2 160.02 cm 143 mm[Hg] 84 mm[Hg] [facility] 4 17:48:08 Date Recorded Body height Body mass index (BMI) Body weight Systolic blood pressure Diastolic blood pressure Provider Name and Address Organization Details Last Updated DateTime 01/18/2024 160.02 cm 33.5 kg/m2 67414.96 g 149 mm[Hg] 88 mm[Hg] [facility] 4 10:33:47 Social History Question Answer Notes LastModified by Organizat ion Details LastModified Time Do You Have An Advance Directive? No [email or web address] Information n ot available 12/18/2023 What Is Your Level Of Alcohol Consumption? None Information not available 12/18/2023 Are You Blind Or Do You Have Difficulty Seeing? No [email or web address] Information not available 12/18/2023 What Is Your Level Of Caffeine Consumption? None [email or web address] Information not available 12/18/2023 In The 14 Days Before Symptom Onset, Have You Had Close Contact With A Laboratory-confirme d COVID-19 While That Case Was Ill? No [email or web address] Information n ot available 12/18/2023 In The 14 Days Before Symptom Onset, Have You Had Close Contact With A Person Who Is Under Investigation For COVID-19 While That Person Was Ill? No [email or web address] Information not available 12/18/2023 Have You Been To An Area Known To Be High Risk For COVID-19? No [email or web address] Information not available 12/18/2023 Are You Deaf Or Do You Have Serious Difficulty Hearing? No Information not available 12/18/2023 What Type Of Diet Are You Following? REGULAR [email or web address] Information n ot available 12/18/2023 What Is The Highest Grade Or Level Of School You Have Completed Or The Highest Degree You Have Received? [id number] [email or web address] Information not available 12/18/2023 What Is Your Occupation? Disabled Information not available 12/18/2023 Are There Any Guns Present In Your Home? No [email or web address] Information not available 12/18/2023 Do You Use Protection During Sex? No [email or web address] Information not available 12/18/2023 Do You Use Your Seat Belt Or Car Seat Routinely? Yes [email or web address] Information not available 12/18/2023 Do You Have Smoke And Carbon Monoxide Detectors In Your Home? Yes [email or web address] Information not available 12/18/2023 How Much Tobacco Do You Smoke? No [email or web address] Information not available 12/18/2023 Do You Feel Stressed (tense, Restless, Nervous, Or Anxious, Or Unable To Sleep At Night)? [id number] Information not available 12/18/2023 Do You Use Any Illicit Or Recreational Drugs? No [email or web address] Information not available 12/18/2023 Do You Use Sunscreen Routinely? Yes [email or web address] Information not available 12/18/2023 Have You Used IV Drugs? No [email or web address] Information not available 12/18/2023 Sex: Unknown Functional Status Question Answer Note LastModified by Organization D etails LastModified Time Are you able to walk? YESWOREST [email or web address] Information not available 12/18/2023 What is your exercise level? None Information not available 12/18/2023 Mental Status None recorded. Family History Relationship Description Onset Age of this Age Resolved Age Notes LastModified by Organization Details LastModified Time Mother Disorder of lung 73 73 [email or web address] Not available 2023 17:38:09 Mother Malignant tumor of lung 73 73 [email or web address] Not available 2023 17:38:09 Mother Disorder of lung [email or web address] Not available 2023 10:30:05 Mother Malignant tumor of lung [email or web address] Not available 2023 10:30:05 Son Depressive disorder 25 Not available 2023 10:30:05 Son Depressive disorder [email or web address] Not available 2023 10:30:05 Daughter Asthma 14 [email or web address] Not availabl e 01/18/2024 10:30:05 Daughter Anxiety disorder 15 [email or web address] Not available 2023 10:30:05 Daughter Depressive disorder 15 Not available 2023 10:30:05 Daughter Substance abuse 16 [email or web address] Not available 2023 10:30:05 Daughter Mental disorder 16 [email or web address] Not available 2023 10:30:05 Daughter Pre-eclampsi a 28 otukyhs26 Not available 2023 10:30:05 Daughter Asthma Not availabl e 01/18/2024 10:30:05 Daughter Anxiety disorder [email or web address] Not available 2023 10:30:05 Daughter Depressive disorder [email or web address] Not available 2023 10:30:05 Daughter Pre-eclampsi a xtznitu07 Not available 2023 10:30:05 Daughter Substance abuse [email or web address] Not available 2023 10:30:05 Daughter Mental disorder [email or web address] Not available 2023 10:30:05 Sister Anemia 23 [email or web address] Not available 01/18/2024 10:30:05 Sister Osteoporosis 45 Not avai lable 01/18/2024 10:30:05 Sister Diabetes mellitus 45 Not available 2023 10:30:05 Sister Anemia [email or web address] Not available 01/18/2024 10:30:05 Sister Osteoporosis [email or web address] Not avai lable 01/18/2024 10:30:05 Sister Diabetes mellitus [email or web address] Not available 2023 10:30:05 Father Heart disease 59 67 jwbezqs19 Not available 2023 17:38:10 Father Disorder of lung 67 67 zbhqunx54 Not available 2023 17:38:10 Father Disorder of lung [email or web address] Not available 2023 10:30:05 Father Heart disease menlybq69 Not available 2023 10:30:05 Medical History No [...] SNOMED-CT Code Diagnosis ICD10 Code Diagnosis Note [id number] KELVIN NEWELL MD [place] [address] [address] 12/18/2023 17:22:32 12/19/2023 03:57:08 Genital herpes simplex [id number] A60.9 - new exposure per patient- s/p [...] at this time Lichen sim plex chronicus [id number] L28.0 - patient reports thickening of vulvar skin for years, itch-scrat ch cycle- will start clobetasol ointment; rtc 1 month for evaluation [id number] KELVIN NEWELL MD [place] [address] [address] 01/18/2024 10:05:21 01/18/2024 16:50:31 Lack or loss of sexual desire [id number] F52.0 - patient reports long standing superficia l dyspareuni a (previousl y improved with vaginal estrogen cream) and low libido- will restart vaginal estrogen- discussed testostero ne supplement ation for HSDD Lichen sim plex chronicus [id number] L28.0 - patient reports thickening of vulvar [...] 12/18/2023 4 [place] Tk Abad Joseph [id number] Tiffanie Ruiz 12/18/2023 1 [place] Tiffanie Ruiz [id number] Tiffanie Ruiz 01/18/2024 2 [place] [id number] Tk Ruiz [id number] Tiffanie Ruiz 01/18/2024 1 [place] Tiffanie Ruiz [id number] Tiffaniemorgan Ruiz Notes Date Note Type [...] it. KELVIN NEWELL MD [address], [place], [address], [facility] 12/18/2023 22:44:55 01/18/2024 text/html Patient [...] libido. KELVIN NEWELL MD [address], [place], [address], [facility] 01/18/2024 16:24:14 OBGyn Episode Ob Episode Information Episode Created Date Number of Fetuses Patient Bloodtype Patient rh Status Prepregnancy Weight lbs Domestic Partner Domestic Partner Phone Father Name Professor Of Marketing Status 12/18/19 24 1 CLOSED Fetus Data First Name Last Name Admitted to NICU Weight (g) Sex Living Outcome Pediatric Complications Fetus ID Race Codes Race Delivery Type F Full Term [id number] Vaginal Delivery Frederick Calculation Initial Frederick Date [...] Domestic Partner Domestic Partner Phone Father Name Professor Of Marketing Status 12/18/19 24 1 CLOSED Fetus Data First Name Last Name Admitted to NICU Weight (g) Sex Living Outcome Pediatric Complications Fetus ID Race Codes Race Delivery Type M Full Term [id number] Vaginal Delivery Frederick Calculation Initial Frederick Date [...]
--- OUTSIDE RECORDS SUMMARY | 2024-03-07 01:59 | XMS_ITS | Clinical Summary ---
Author Organization [facility] Address [address] [place] [address] Phone Care Team Providers Care Flow Trader Name Role Phone Jona Bravo MD Primary Care Provider [phone] Active Problems Problem Noted Date Diagnosed Date [...] age to complete this topic Care Teams Flow Trader Relationship Specialty Start Date End Date Jona Bravo MD [address] [place] [address] PCP - General 05/04/17
--- OUTSIDE RECORDS SUMMARY | 2024-03-07 01:59 | XMS_ITS | Encounter Summary ---
Author Organization [facility] Address [address] [place] [address] Care Team Providers Care Industrial Hire Sales Assistant Name Role Phone Jona Bravo MD Primary Care Provider [phone] Reason for Visit * Reason Comments Question Encounter Details Date Type Department Care Team ([facility] st Contact Info) Description 04/23/2023 Telephone [facility] [address] [place] [address] Jona Bravo MD [address] [facility] [address] [place] [address] Question Social History Tobacco Use [...] often do you attend chur ch or caodaism services? 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 Topic: Patient or Caregiver Communication Request >> Apr 23, 2023 1:32 PM Adelina Harper wrote: Patient or Caregiver requesting advice Caller: Tiffanie Ruiz Patient/Caregiver Callback Number: [phone] (home) Call Notes: Patient is calling she is needing an orthopedic referral and her referral for Eric Martinez MD is still pending and needs to be faxed to this number. Please advise. Dr Martinez FAX# [phone] documented in this encounter Plan of Treatment Upcoming Encounters Date Type Department Care Team (Late st Contact Info) Description 04/23/2024 1:20 PM CDT Office Visit [facility] [address] [place] [address] Jona Bravo MD [address] [place] [address] [place] [address] 08/25/2024 10:40 AM CDT Office Visit [facility] [address] [place] [address] Jona Bravo MD [address] [place] [address] [place] [address] documented as of this encounter Visit Diagnoses Not on filedocumented in this encounter Care Teams Industrial Hire Sales Assistant Relationship Specialty Start Date End Date Jona Bravo MD PCP - General Internal Medicine 11/25/15 documented as of this encounter
--- NOTE | 2024-03-07 12:50 | WPDHPUPDATE1 ---
History and Physical Update Update Date/Time: 03/07/24 12:50 History and Physical has been reviewed, including an updated exam of the patient. There are NO changes in the patient's condition. Risks, benefits, and alternatives have been discussed and questions answered. Patient agrees to proceed with procedure. Proceed with cystoscopy, right retrograde, right ureteroscopy with stone extraction, possible laser, stent.
[2024-03-07 13:27] LABS: Hematocrit 38.3 % (37.0-47.0); Hemoglobin 12.8 g/dL (12.0-15.0)
[2024-03-07 13:37] LABS: Anion Gap 6 mmol/L (4-12); Blood Urea Nitrogen 26 mg/dL (7-17); Calcium 9.2 mg/dL (8.4-10.2); Carbon Dioxide 30 mmol/L (22-30); Chloride 103 mmol/L (98-107); Estimated CRCL calculation 73 ml/min; Estimated Glomerular Filt Rate > 60; Glucose 92 mg/dL (65-110); Potassium 4.1 mmol/L (3.4-5.0); Sodium 139 mmol/L (137-145)
--- NOTE | 2024-03-07 13:44 | P.PNAN_ITS ---
Anes - Initial Pre Proc Eval Procedure: Operation Date: 03/07/24 14:00 Proposed Procedures p Right Ureteral Extracorporeal Shock Wave Lithotripsy, - Julio Pulido MD s Possible Cystoscopy, Possible Right Ureteroscopy, Possible Right Retrograde Pyelogram, Possible Right Stone Extraction, Possible Right Stent Placement, Possible Holmium Laser - Julio Pulido MD Date/Time: 03/07/24 13:44 Surgeon: Julio Pulido MD Pre Op Diagnosis: right ureteral kidney stone Patient Data Age: 64 Gender: F Height: 1.6 m Weight: 86 kg Last Vital Signs Temp 36.2 C L 03/07/24 12:30 Pulse 70 03/07/24 12:30 Resp 18 03/07/24 12:30 BP 138/62 03/07/24 12:30 Pulse Ox 98 03/07/24 12:30 O2 Del Method Room Air 03/07/24 12:30 Allergies Allergy/AdvReac Type Severity Reaction Status Date / Time meperidine (From Demerol) Allergy Severe Hives Verified 03/06/24 08:37 levofloxacin (From Levaquin) AdvReac Intermediate INFLAMED Verified 03/06/24 08:37 TENDONS adhesive tape AdvReac Blister Verified 03/06/24 08:37 codeine AdvReac Hives Verified 03/06/24 08:37 Home Medications ?Medication ?Instructions ?Recorded ?Confirmed ?Type albuterol sulfate 90 mcg/actuation 2 puff inhalation QID PRN 05/03/22 03/06/24 Rx aerosol inhaler shortness of breath or wheezing #8.5 grams aspirin 81 mg capsule 81 mg PO WEEKLY 05/03/22 03/07/24 History bupropion HCl 300 mg 24 hr tablet, 300 mg PO QAM 05/03/22 03/07/24 History extended release (Wellbutrin XL) levothyroxine 88 mcg tablet 88 mcg PO DAILY 05/03/22 03/07/24 History ejnwvstl-sdhqlvem-qolw 45 mg-folic 1 cap PO DAILY 05/03/22 03/06/24 History acid 800 mcg-vit K 120 mcg capsule (Bariatric Multivitamins) pravastatin 80 mg tablet 80 mg PO .PM 05/03/22 03/07/24 History amlodipine 2.5 mg tablet 2.5 mg PO DAILY 10/17/23 03/07/24 History cyanocobalamin (vitamin B-12) 1,000 mcg subcut .Sunday10/17/23 03/07/24 History 1,000 mcg/mL injection solution alprazolam 0.5 mg tablet 0.5 mg PO QHS 02/10/24 03/07/24 History buspirone 15 mg tablet 15 mg PO BID 02/10/24 03/07/24 History clobetasol 0.05 % topical ointment 1 g topical DAILY 02/10/24 03/06/24 History duloxetine 60 mg capsule,delayed 60 mg PO DAILY 02/10/24 03/07/24 History release estradiol 0.01% (0.1 mg/gram) 1 g vaginal WEEKLY 02/10/24 03/06/24 History vaginal cream losartan 100 mg tablet 50 mg PO BID 02/10/24 03/07/24 History spironolactone 25 mg tablet 25 mg PO DAILY 02/10/24 03/07/24 History temazepam 15 mg capsule 15 mg PO QHS PRN sleep 02/10/24 03/06/24 History tizanidine 4 mg tablet 4 mg PO Q8H PRN muscle spasticity 02/10/24 03/06/24 History hydrocodone 10 mg-acetaminophen 1 tablet PO PRN pain 03/06/24 03/07/24 History 325 mg tablet Laboratory Tests 03/07/24 12:56 Hgb 12.8 g/dL (12.0-15.0) Hct 38.3 % (37.0-47.0) Sodium 139 mmol/L (137-145) Potassium 4.1 mmol/L (3.4-5.0) Chloride 103 mmol/L (98-107) Carbon Dioxide 30 mmol/L (22-30) Anion Gap 6 mmol/L (4-12) BUN 26 H mg/dL (7-17) Creatinine 0.69 L mg/dL (0.7-1.0) Estim Creat Clear Calc 73 ml/min Estimated GFR > 60 (59 - ) Glucose 92 mg/dL (65-110) Calcium 9.2 mg/dL (8.4-10.2) Patient hx anesthesia problems: none Family hx anesthesia problems: none Results Review: All pre-operative results and documents have been reviewed as part of the pre- operative evaluation. COUNT INCLUDES THE [facility] Past Medical History Medical History Melanoma Chronic, continuous use of opioids [place] (nonalcoholic steatohepatitis) [place] (obstructive sleep apnea) Kidney stones Hypothyroid Anxiety Fibromyalgia CVA (cerebral vascular accident) Asthma Hyperlipidemia Chronic pain syndrome Chronic lung disease Surgical History Surgical History Gastric bypass status for obesity H/O cataract removal with insertion of prosthetic lens Hx of appendectomy H/O: hysterectomy H/O thyroidectomy Hx of cervical spine surgery H/O lithotripsy Family History Family History Sibling Family history of rheumatoid arthritis Mother Family history of lung cancer Social History Social History Smoking status: Never smoker Second hand tobacco smoke exposure: No Alcohol intake: never Substance use: never Substance use type: does not use Other substance usage details: THC gummies for sleep. Do You Feel Safe in your Home?: Yes Lack of Transportation: No Lack of Food: Never True Current Housing: I Have Housing Concerned About Future Housing: No Difficulty Paying Gas/Electric Bills: No Difficulty Paying for Meds: No Currently Unemployed: No Education: Trade/Vocational Certificate Difficulty w/ Childcare or Family Care: No Living arrangements: with family Additional living arrangements comments: Gender identity (if verbalized by the patient): Female Spiritual care concerns: No Anes - Eval Final PreProcedure Day of Procedure 03/07/24 13:44 Patient weight: obese Heart: regular rate and rhythm Lungs: clear to auscultation and normal air movement Airway: Mallampati scale class II and special considerations poor extension Neurological: alert and oriented Last oral intake: >/= 8 hours ASA classification: III Emergent: no Anesthetic plan: proceed Anesthesia type and monitoring: general LMA and standard monitoring Results Review: All pre-operative results and documents have been reviewed as part of the pre- operative evaluation. Informed Consent: The patient's anesthetic plan and its attendant risks and benefits were discussed with the patient/family/POA. Questions were solicited and answers provided to the satisfaction of the patient/family/POA.
[2024-03-07] MEDS: ceFAZolin 2 GM/D5W 50 ML 2 GM/50 ML BAG IVPB (13:58)
[2024-03-07] MEDS: LIDOCAINE 2% GEL UROJET 10 ML PKG MUCOUS MEM (14:18)
--- NOTE | 2024-03-07 14:31 | P.OP_ITS ---
Procedure Note - Detailed Date of Procedure 03/07/24 Pre-op Diagnosis right renal stone Post-op Diagnosis Same Procedure Performed Cystoscopy, right retrograde pyelogram, right ureteroscopy with stone extraction, right ureteral stent placement 4.8 Trin[place]adian contour Surgeon Julio Pulido MD Anesthesia General Findings No evidence of ureteral stones. Calcifications are all external to the ureter. Small calcification noted in the lower pole of the kidney which was retrieved Description of Procedure Patient was taken to the operative suite correctly identified. Once anesthesia was obtained she was placed in dorsal lithotomy position and prepped and draped usual sterile fashion. Twenty-two Trinidadian scope was inserted the bladder. There were no tumors noted. Right ureteral orifice was cannulated with a guidewire. I dilated the orifice with an 8/10 dilator. Rigid ureteral scope was then inserted. There are no stones in the distal ureter mid ureter or proximal ureter. The calcification noted on CT and plain film was outside the ureter. At this point a 2nd wire was placed. Mini flexible ureteral scope was inserted into the kidney. Kidney was inspected in its entirety. The small calcification the renal pelvis was found in the lower pole. Using a 0 tip basket this was retrieved and sent for analysis. Pyelogram was performed to confirm placement. 4.8 Trinidadian contour stent was then placed with the proximal end coiled in the renal pelvis and the distal end in the bladder. The string was left attached and she will remove that on Sunday. She taken recovery stable condition. This completes dictation. Please send a copy of op note to my office Estimated Blood Loss 0 Drains Yes Pathology Yes Complications No immediate complications Condition Stable Disposition PACU
[2024-03-07] MEDS: LACTATED RINGERS 1,000 ML 30 ML IV CONT (14:36)
[2024-03-07 15:26] LABS: Glucose Point of Care 112 mg/dl (65-105)
[2024-03-07] MEDS: fentaNYL CITRATE INJ (*CRX) 100 MCG/2 ML VIAL 25 MCG IV PUSH ×4 (15:55→16:09)
[2024-03-07] MEDS: oxyCODONE HCL (*CRX) 5 MG TAB IR PO (15:55)
[2024-03-07] MEDS: KETOROLAC 30 MG/ML VIAL (*BKC) IV PUSH (16:32)
[2024-03-07] MEDS: oxyBUTYnin CHLORIDE 5 MG TABLET PO (16:32)
== END 2024-03-07 17:16 | disposition home or self-care (01) ==
PROVIDERS: Anesthesiology; PCP Internal Medicine; Visit Provider Urology
PROC: (CPT 52352; 2024-03-07 14:00)
DX: N20.0 Calculus of kidney (principal); E66.9 Obesity, unspecified; Z68.33 Body mass index [BMI] 33.0-33.9, adult; Z79.899 Other long term (current) drug therapy
CPT/HCPCS: 52332; 52352; 36415; 74018; 74420; 80048; 82365; 82948; 85014; 85018; 88300; A9270; C1758; C1769; C2617; J0690; J1100; J1885; J2003; J2405; J2704; J3010; J7120; Q9966

== ENCOUNTER 2024-03-11 04:25 | Emergency (ER) | payer MEDICARE, BC, SELFPAY ==
--- NOTE | ~2024-03-11 | CT_ITS ---
Non-contrast CT scan of the Abdomen and Pelvis Clinical indication: Flank pain Technique: 2.5 mm axial scans were obtained through the abdomen and pelvis without intravenous or or al contrast. Dose reduction technique was used on this scan by utilizing automated exposure control a nd iterative reconstruction technique. The dose-length product (DLP) was 767.50 mGy-cm. COMPARISON: 03/03/2024 Findings: Images through the lung bases reveal no abnormalities. There is mild right hydroureteronephrosis with no visible stone present. No left hydronephrosis. 2 mm nonobstructing left renal stones are present. The liver, spleen, pancreas, gallbladder, and adrenals appear normal. There is no aortic aneurysm. There is no evidence of bowel obstruction. There is evidence of prior bariatric surgery. Extensive st ool suggests constipation. Images through the pelvis were performed. There is no evidence of ascites or lymphadenopathy. Urinary bladder unremarkable. No pelvic mass evident. Impression: Mild right hydroureteronephrosis could reflect sequela of recently passed stone. 2 mm nonobstructing left renal stones. Constipation. Reviewed, dictated and finalized at [facility]. 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 2 mm nonobstructing left renal stones. Constipation.
[2024-03-11 04:26] VITALS: BP 123/60; PULSE 86; RESP 16; TEMP 36.8; O2SAT 94
--- OUTSIDE RECORDS SUMMARY | 2024-03-11 04:28 | XMS_ITS | Encounter Summary ---
Author Organization [facility] Address [address] [place] [address] Care Team Providers Care Drill Sharpener Operator Name Role Phone Jona Bravo MD Primary Care Provider Reason for Visit * Reason Onset Date Comments HFU 10/11/2021 Encounter Details Date Type Department Care Team (Late st Contact Info) Description 10/11/2021 Telephone [facility] Primary Care [address] [place] [address] Jona Bravo MD [address] [place] [address] [address] [place] [address] HFU Social History Tobacco Use [...] often do you attend chur ch or jew services? 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 Patient was scheduled for a hospital follow up with PCP for 10/14/21; caller stated that [facility] wants patients to be seen no sooner than 7 days after discharge; PSA informed patient needs to be seen within 5 days per PCP; caller stated she may advise patient to reschedule. Please call the patient to [facility] and request medical records as it was not mentioned during the call. documented in this encounter Plan of Treatment Upcoming Encounters Date Type Department Care Team (Late st Contact Info) Description 04/23/2024 1:20 PM CDT Office Visit [address] [place] [id number] Jona Bravo MD [address] [place] [address] [place] [address] 08/25/2024 10:40 AM CDT Office Visit [address] [place] [address] Jona Bravo MD [address] [place] [address] [address] [place] [address] documented as of this encounter Visit Diagnoses Not on filedocumented in this encounter Additional Health Concerns Assessment Noted Time PHQ-9 Depression Total Score: 2 01/11/20 20 4:07 PM FOOD WRITER documented as of this encounter Care Teams Drill Sharpener Operator Relationship Specialty Start Date End Date Jona Bravo MD PCP - General Internal Medicine 11/25/15 documented as of this encounter
--- OUTSIDE RECORDS SUMMARY | 2024-03-11 04:28 | XMS_ITS | Clinical Summary ---
Author Organization [facility] Address [address] [place] [address] Phone Care Team Providers Care Oil Burner Repairer Name Role Phone Jona Bravo MD Primary Care Provider [phone] Allergies Active Allergy Reactions Criticality Noted Date [...] ipratropium bromide (ATROVENT) 21 mcg (0.03 %) Ruby, Non-Aerosol Administer 2 Sprays in each nostril [...] Encounters Date Type Department Care Team Description 03/10/2024 External Device Data Initial Department [address] [place] [address] Dr CANCHOLA: [place] [address] [facility] 03/05/2024 External Device Data Initial Department [address] [place] [address] Dr CANCHOLA: Prelude [place]T [place] [address] [facility] 03/03/2024 External Device Data Initial Department [address] [place] [address] Dr CANCHOLA: [place] [address] [facility], 02/27/2024 External Device Data STL ABSTRACTION Provider, Abstract 02/27/2024 External Device Data Initial Department [address] CANCHOLA: [place] [address] [facility], 02/26/2024 External Device Data STL ABSTRACTION Provider, Abstract 02/26/2024 Refill [facility] [address] [place] [address] Jona Bravo MD 02/26/2024 Abstract [facility] [address] [place] [address] Jona Bravo MD 02/25/2024 External Device Data Initial Department [address] CANCHOLA: [place] [address] [facility], 02/23/2024 Telephone [facility] [address] [place] [address] Boo Parrish RN [facility] Recruiting Scheduler 02/20/2024 External Device Data Initial Department [address] SHEARERN: [place] [address] [facility], 02/19/2024 External Device Data STL ABSTRACTION Provider, Abstract 02/19/2024 [place] [address] [facility] [address] [place] [address] Jona Bravo MD 02/18/2024 Telephone [facility] [address] [place] [address] Shivani Winston FNP [facility] 02/18/2024 External Device Data Initial Department [address] CANCHOLA: [place] [address] [facility], 02/15/2024 Refill [place] [address] [place] [address] Jona Bravo MD 02/13/2024 3:20 PM STUDENT ASSISTANT Office Visit [facility] [address] [address] Jona Bravo MD Other hyperlipidemia (Primary Dx); DM type 2, goal HbA1c < 7% ([facility]); Other asthma; Visit for screening mammogram; Vitamin D deficiency; Other specified hypothyroidism; Essential hypertension 02/13/2024 Abstract [facility] [address] [facility] [address] [place] [address] Jona Bravo MD 02/13/2024 External Device Data Initial Department [address] [place] [address] Dr CANCHOLA: [place] [address] Gio Villavicencio Md 02/13/[facility] [address] [address] Katlin Cohen RN [facility] 02/12/2024 External Device Data STL ABSTRACTION Provider, Abstract 02/11/2024 [place] [address] [address] Jona Bravo MD Clinical Consult Before Scheduling 02/11/[facility] [address] [address] Courtney Eli RN [facility] 02/11/2024 External Device Data Initial Department [address] [place] [address] Dr CANCHOLA: [place] [address] Gio Villavicencio Md 2024 12:00 PM STUDENT ASSISTANT Ancillary Procedure [facility] [address] [place] [address] Pj Sepulveda MD Right ureteral stone 2024 11:30 AM STUDENT ASSISTANT Ancillary Procedure [facility] [address] [place] [address] Pj Sepulveda MD Kidney stones 2024 External Device Data Initial Department [address] [place] [address] Dr CANCHOLA: [place] [address] Gio Villavicencio Md 01/28/2024 External Device Data Initial Department [address] [place] [address] Dr CANCHOLA: [place] [address] [facility], 01/23/2024 External Device Data Initial Department [address] [place] [address] Dr CANCHOLA: [place] [address] [facility], 01/21/2024 External Device Data Initial Department [address] [place] [address] Dr CANCHOLA: [place] [address] [facility], 01/16/2024 External Device Data Initial Department [address] [place] [address] Dr CANCHOLA: [place] [address] [facility], 01/14/2024 External Device Data Initial Department [address] [place] [address] Dr CANCHOLA: [place] [address] [facility], 01/10/2024 1:30 PM STUDENT ASSISTANT Video Visit [facility] [place] [address] [place] [address] Scott Wong, ALYSA Nonintractable headache, unspecified chronicity pattern, unspecified headache type (Primary Dx); Primary hypertension; Anxiety state 01/10/2024 Refill [facility] [address] [place] [address] Scott Wong, ALYSA Nonintractable headache, unspecified chronicity pattern, unspecified headache type (Primary Dx) 01/09/2024 External Device Data Initial Department [address] [place] [address] Dr CANCHOLA: [place] [address]Sabine Villavicencio, 01/07/2024 External Device Data Initial Department [address] [place] [address] Dr CANCHOLA: [place] [address]Sabine Powers Emergency, 01/05/[address] [phone] Elham Yung RN [facility] Recruiting Scheduler 01/02/2024 External Device Data Initial Department [address] [address] CANCHOLA: [address] [place] [address]Sabine [facility] 12/31/2023 External Device Data Initial Department [address] [facility] [address] CANCHOLA: [place] [address]Sabine Villavicencio Md 12/31/2023 Refill [facility] [address] [place] [address] Jona Bravo MD 12/28/2023 Abstract [facility] [address] [facility] [address] [place] [address] Provider, Abstract 12/26/2023 External Device Data Initial Department [address] [place] [address] Dr SHEARERN: [place] [address] [facility], 12/24/2023 External Device Data Initial Department [address] [place] [address] Dr SHEARERN: [place] [address] [facility], 12/19/2023 External Device Data Initial Department [address] [place] [address] Dr SHEARERN: [place] [address] [facility], 12/17/2023 External Device Data Initial Department [address] [place] [address] Dr CANCHOLA: [place] [address] [facility], 12/12/2023 External Device Data Initial Department [address] [place] [address] Dr CANCHOLA: [place] [address] [facility], 12/10/2023 External Device Data Initial Department [address] [place] [address] Dr SHEARERN: [place] [address] [facility], from Last 3 Months Immunizations Immunization Administration Dates Next Due (ADACEL/BOOSTRIX)(10 YR UP) TDAP VACCINE, 0.5ML, IM 01/16/2021,02/05/2013,09/14/2011 (Moderna Bivalent)(6 Mos Up) COVID-19 Vaccine - Emergency Use Authorization, MRNA(Pf) 50 Mcg/0.5 Ml Im Susp 10/13/2021 (PFIZER DIMITRIS)(12 YR UP PRIMA RY SERIES) COVID-19 VACCINE - EMERGENCY USE AUTHORIZATION, MRNA, DIIMTRIS(PF) 30 MCG/0.3 ML IM SUSP 01/08/2023 (PFIZER)(12 YR UP) COVID-19 VACCINE - EMERGENCY USE AUTHORIZATION, MRNA, [id number](PF) 30 MCG/0.3 ML IM SUSP 12/12/2020,04/29/2020,04/08/2020 (PNEUMOVAX 23)(50 YRS UP) PN EUMOCOCCAL POLYSACCHARIDE (PPV23) 0.5 ML, IM 05/30/2016 (PREVNAR 13)(6 WKS UP) PNEUM OCOCCAL CONJUGATE (PCV13) 0.5 ML, IM 09/16/2014 (PREVNAR 20)(6 WKS UP) PNEUM OCOCCAL CONJUGATE VACCINE 20-VALENT (PCV20), POLYSACCHARIDE [id number] CONJUGATE, ADJUVANT 0.5 ML (PF) IM 02/10/2022 [...] Father Kendell A Farooq Hypertension Father Kendell Ayoner Other Father Kendell A Farooq pulmonary fi brosis Cancer Maternal Aunt 1 female Cancer Maternal Aunt 2 female Cancer Maternal Grandmother Alpha Farooq cervica l female Emphysema Mother Pat Chandler Farooq Heart Disease Mother Pat Agudelocker Hypertension Mother Pat Trivedi Lung Cancer Mother [...] any clubs o r organizations such as anabaptist groups, unions, fraternal or athletic groups, or [...] on file Legal Sex Female 9:43 AM STUDENT ASSISTANT Gender Identity Not on file Sexual Orientation Not on file 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 Not on file Not on file Last Filed Vital Signs Vital Sign Reading Time Taken Comments Blood Pressure 121/84 02/13/2024 3:13 PM STUDENT ASSISTANT Pulse 88 02/13/2024 3:03 PM STUDENT ASSISTANT Temperature 36.4 ??C (97.6 ??F) 11/26/2023 3:04 PM CD T Respiratory Rate 18 11/26/2023 3:04 PM CDT Oxygen Saturation 93% 02/13/2024 3:03 PM STUDENT ASSISTANT Inhaled Oxygen Concentration - - Weight 85.3 kg (188 lb) 02/13/2024 3:03 PM STUDENT ASSISTANT Height 160 cm (5' 3 ) 02/13/2024 3:03 PM STUDENT ASSISTANT Body Mass Index 33.3 02/13/2024 3:03 PM STUDENT ASSISTANT Plan of Treatment Upcoming Encounters Date Type Department Care Team (Late st Contact Info) Description 04/23/2024 1:20 PM CDT Office Visit [address] [place] [address] Jona Bravo MD [address] [place] [address] [address] [place] [address] 08/25/2024 10:40 AM CDT Office Visit [address] [place] [address] Jona Bravo MD [address] [place] [address] [address] [place] [address] Health Maintenance Due Date Last Done Comments [...] Additional history exists BREAST CANCER SCREENING 09/09/2023 09/09/19, 09/08/2022, 07/08/2021, Additional history exists COVID-19 Vaccine [...] history exists Medical Devices Implanted Type Area Oracle Endeca Consultant Device Identifier Shelf Expiration Date Model / Serial / Lot Lap Band Bladder Sling Procedures Procedure Name Priority Date/Time Associated Diagnosis Comments HEMOGLOBIN A1C Routine 02/13/2024 3:36 PM STUDENT ASSISTANT XR ABDOMEN 1 VW Routine 2024 11:27 AM STUDENT ASSISTANT Right ureteral stone CT ABDOMEN PELVIS WO CONTRAST Routine 2024 11:27 AM STUDENT ASSISTANT Kidney stones MICROALBUMIN/CREATI NINE RATIO, RANDOM UR Routine 11/26/2023 4:09 PM CDT DM type 2, goal HbA1c < 7% ([facility]) LIPID PANEL Routine 02/08/2023 11:08 AM STUDENT ASSISTANT Other hyperlipidemia MAMMO SCREEN BILAT W OR WO CAD Routine 09/08/2022 2:51 PM CDT XR DEXA BONE DENSITY AXIAL 1 OR MORE SITES Routine 09/20/2020 Menopause HX COLONOSCOPY Routine 08/03/2020 from Last 3 Months or Most Recently Relevant to Health Maintenance Results * HEMOGLOBIN A1C (02/13/2024 3:36 PM STUDENT ASSISTANT) ABSTRACTED HGB A1C 5.7 % [facility] Blood 02/13/2024 3:36 PM STUDENT ASSISTANT Jona Bravo MD CHEMISTRY ORDERABLES Final Re sult [facility] CLIA# [id number] [facility] [address] [place] [address] * XR ABDOMEN 1 VW (2024 11:27 AM STUDENT ASSISTANT) Anatomical Region Laterality Modality Abdomen Computed Radiogr aphy 2024 11:2 7 AM STUDENT ASSISTANT Impressions 2024 11:42 AM STUDENT ASSISTANT Findings/impression: The bowel gas pattern is nonobstructive. Multiple pelvic calcifications are noted which are best appreciated on the most recent CT. Small bilateral renal calculi are also noted. Narrative 2024 11:42 AM STUDENT ASSISTANT EXAM: XR ABDOMEN 1 VW DATE: 2024 [...] Small bilateral renal calculi are also noted. Pj Sepulveda MD DIAGNOSTIC IMAGING ORDERABLE S Final Result * CT ABDOMEN PELVIS WO CONTRAST (2024 11:27 AM STUDENT ASSISTANT) Anatomical Region Laterality Modality Abdomen Computed Tomogra phy 2024 11:1 8 AM STUDENT ASSISTANT Impressions 2024 11:45 AM STUDENT ASSISTANT IMPRESSION: Bilateral nonobstructing renal calculi measuring up to 5 mm. No obstructive uropathy appreciated. Narrative 2024 11:45 AM STUDENT ASSISTANT EXAM: CT ABDOMEN PELVIS WO CONTRAST DATE: [...] noted in the lumbosacral spine. Procedure Note Erwin Louie Pollo, DO - 2024 EXAM: CT ABDOMEN PELVIS [...] RATIO, UR 14 <30 mg/g creat [facility] Comment: The ADA defines abnormalities in [...] within a diagnostic category. Test Performed at: [facility] [address] [place], [place] ??[address] Law Nathan MD Urine URINE SPECIMEN OBTAINED BY CLEAN CATCH PROCEDURE / Unknown 11/26/2023 4:09 PM CDT 11/27/2023 6:37 AM CDT us Jona Bravo MD URINE ORDERABLES Final Result [facility] [phone] [facility] [address] [place] [address] * LIPID PANEL (02/08/2023 11:08 AM STUDENT ASSISTANT) CHOLESTEROL 168 <200 mg/dL [facility] HDL 77 > OR = 50 mg/dL [facility] TRIGLYCERIDE 45 <150 mg/dL [facility] LDL CALCULATED 78 mg/dL (calc) [facility] Comment: Reference range: <100 Desirable range <100 mg/dL for primary prevention; ?? <70 mg/dL for patients with CHD or diabetic patients with > or = 2 CHD risk factors. LDL-C is now calculated using the Shannan calculation, which is a validated novel method providing better accuracy than the Friedewald equation in the estimation of LDL-C. Tai SANDHU et al. YONI. 2013;310(19): 3792-7358 (http://education.[employer]/faq/PFO742) CHOL/HDL RATIO 2.2 <5.0 (calc) [facility] TOTAL NON-HDL CHOL(LDL+VLDL) 91 <130 mg/dL (calc) [facility] Comment: For patients with diabetes plus 1 major ASCVD risk factor, treating to a non-HDL-C goal of <100 mg/dL (LDL-C of <70 mg/dL) is considered a therapeutic option. Test Performed at: [facility] [address] [place] ??[address] Law Nathan MD Blood 02/08/2023 11:0 8 AM STUDENT ASSISTANT 02/08/2023 11:09 AM STUDENT ASSISTANT us Jona Bravo MD CHEMISTRY ORDERABLES Final Re sult Performing Organization Address [facility] Co de Phone Number [facility] [phone] [facility] [address] [place] [address] * MAMMO SCREEN BILAT W OR WO [...] d Result - Final Performing Organization Address City/[facility]/ZIP Co de Phone Number EXTERNAL LAB from Last 3 Months or Most Recently Relevant to Health Maintenance Insurance MEDICARE PART A AND B BS BLUE PREFERRED Commercial MEDICARE PART A AND B BCBS BLUE PREFERRED Advance Directives For more information, please contact: [phone] * Full Code (Latest Code Status on File) Date Activated Date Inactivated Comments 03/02/2017 8:56 PM 03/05/2017 9:44 PM * Full Code Date Activated Date Inactivated Comments 07/17/2014 10:57 AM 07/17/2014 4:49 PM * Full Code Date Activated Date Inactivated Comments 04/24/2014 2:54 PM 04/24/2014 8:53 PM * Full Code Date Activated Date Inactivated Comments 04/24/2014 11:13 AM 04/24/2014 2:54 PM Care Teams Oil Burner Repairer Relationship Specialty Start Date End Date Jona Bravo MD PCP - General Internal Medicine 11/25/15
--- OUTSIDE RECORDS SUMMARY | 2024-03-11 04:28 | XMS_ITS | Clinical Summary ---
Author Organization [facility] Address [address] [place] [address]. [place] [address] [place] [address] Care Team Providers Care Ad Operations Intern Name Role Phone Unavailable Primary Care Provider [...]
--- OUTSIDE RECORDS SUMMARY | 2024-03-11 04:28 | XMS_ITS | Encounter Summary ---
Author Organization [facility] Address [address] [place] [address] Phone Care Team Providers Care Civil Engineering Professional Name Role Phone Jona Bravo MD Primary Care Provider + Desire Sams RN Unavailable Un available Pooja [place] LCSW Unavailable [phone] Roscoe Mccollum MD Unavailable [phone] Encounter Details Date Type Department Care Team [...] on file Legal Sex Female 12:46 AM PROTECTIVE SERVICES OFFICER Gender Identity Female 04/08/2019 6:15 AM PROTECTIVE SERVICES OFFICER Sexual Orientation Straight 04/08/2019 6: 15 AM PROTECTIVE SERVICES OFFICER Occupation Industry Job Start Date Job End [...] on filedocumented in this encounter Care Teams Civil Engineering Professional Relationship Specialty Start Date End Date Jona Bravo MD [address] [place] [address] PCP - General 05/05/16 Desire Sams, RN Registered Nurse 04/03/17 Pooja [place], [facility] [address] [facility] ([facility]) Mailstop [phone] [place] [address] [facility] Outpatient Big Data Analytics Lead 10/12/21 11/09/21 Roscoe Mccollum MD [address] [address] [place] [address] Anesthesiologist Pain Management 12/21/21 documented as of this encounter
--- OUTSIDE RECORDS SUMMARY | 2024-03-11 04:28 | XMS_ITS | Clinical Summary ---
Author Organization [facility] Address [address] [place] [address] Phone Care Team Providers Care Flooring Machine Feeder Name Role Phone Jona Bravo MD Primary Care Provider Allergies Active Allergy Reactions Criticality Noted Date [...] Description 05/28/2024 1:00 PM CDT Office Visit [facility] [address] [place] [address] Uche Vela MD [address] [place] [address] Health Maintenance Due Date Last Done Comments COVID-19 Vaccine (5 - 2022-2 4 season) 2023 10/13/2021, 12/12/2020, 04/29/2020, Additional history exists Influenza Vaccine (#1) 2023 , 11/14/2019, 10/19/2019, Additional history exists Pneumococcal PPSV23/PCV13 65 + Years / High and Highest Risk (4 of 4 - PPSV23 or PCV20) 02/05/2024 05/30/2016, 09/16/2014, 09/16/2014 Care Teams Flooring Machine Feeder Relationship Specialty Start Date End Date Jona Bravo MD [address] [place] [address] PCP - General Internal Medicine 06/16/19
--- OUTSIDE RECORDS SUMMARY | 2024-03-11 04:28 | XMS_ITS | Encounter Summary ---
Author Organization [facility] Address [address] [place] [address] Care Team Providers Care Career And Technology Education Teacher Name Role Phone Jona Bravo MD Primary Care Provider Reason for Visit * Reason Onset Date Comments Red flag- Severe Pain 08/14/2022 Encounter Details Date Type Department Care Team (Late st Contact Info) Description 08/14/2022 Telephone [facility] Primary Care [address] [place] [address] Jona Bravo MD [address] [place] [address] [address] [place] [address] Red flag- Severe Pain Social [...] often do you attend chur ch or gnosticism services? 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 Call back number: [phone] (home) Home Phone Work Phone documented in this encounter Plan of Treatment Upcoming Encounters Date Type Department Care Team (Late st Contact Info) Description 04/23/2024 1:20 PM CDT Office Visit [address] [place] [address] Jona Bravo MD [address] [place] [address] [address] [place] [address] 08/25/2024 10:40 AM CDT Office Visit [address] [place] [address] Jona Bravo MD [address] [place] [address] documented as of this encounter Visit Diagnoses Not on filedocumented in this encounter Care Teams Career And Technology Education Teacher Relationship Specialty Start Date End Date Jona Bravo MD PCP - General Internal Medicine 11/25/15 documented as of this encounter
--- OUTSIDE RECORDS SUMMARY | 2024-03-11 04:28 | XMS_ITS | Encounter Summary ---
Author Organization [facility] Address [address] [place] [address] Care Team Providers Care Pad Making Machine Operator Name Role Phone Jesse Garcia MD Primary Care Provider [phone] Jona Bravo MD Primary Care Provider [phone] Kirill Jean MD Primary Care Provider [phone] Jona Bravo MD Primary Care Provider [phone] Kirill Jean MD Primary Care Provider [phone] [...] Outpatient Visit EXTERNAL NON-[facility] DEPT Steph Mar, SUPERVISOR WET POUR-PROJECT ADMIN [address] [place] [address] Social History Tobacco Use Types [...] st Contact Info) Description 04/10/2024 8:30 AM CREAM TESTER Office Visit [facility] [address] [place] [address] Soham Hutton MD [address] [place] [address] documented as of this encounter Visit Diagnoses Not on filedocumented in this encounter Care Teams Pad Making Machine Operator Relationship Specialty Start Date End Date Jesse Garcia MD [address] [address] PCP - General 11/04/09 06/30/14 Jona Bravo MD [address] [place] [address] PCP - General Internal Medicine 11/29/15 05/23/17 Kirill Jean MD [address] [place] [phone] PCP - General 05/24/17 12/16/17 Jona Bravo MD [address] [place] [address] PCP - General Internal Medicine 12/17/17 03/19/18 Kirill Jean MD [address] [place] [phone] PCP - General 03/20/18 03/25/18 Jona Bravo MD [address] [address] PCP - General Internal Medicine 03/26/18 05/01/18 Kirill Jean MD [address] [place] [address] PCP - General 05/02/18 06/18/18 Joan Bravo MD [address] [address] PCP - General Internal Medicine 06/19/18 07/31/18 Kirill Jean MD [address] [place] [address] PCP - General 08/01/18 11/19/18 Kirill Jean MD [address] [place] [phone] PCP - General 02/13/19 09/18/19 Tenisha Tena MD [address] [place] [phone] PCP - General Family Medicine 09/19/19 01/07/20 Kirill Jean MD [address] [place] [address] PCP - General 01/08/20 10/15/22 Jona Bravo MD [address] [place] [address] PCP - General Internal Medicine 10/16/22 documented as of this encounter
--- OUTSIDE RECORDS SUMMARY | 2024-03-11 04:28 | XMS_ITS | Clinical Summary ---
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 08/2019 Cervical radiculopathy 09/12/2019 Cervicalgia 09/12/2019 S/P gastric bypass 06/19/2018 Overview (12/26/2019): 06/19/18 Laparoscopic Judy-en-Y Gastric Bypass Chronic right-sided low back pain without sciati ca 05/02/2018 Sacroiliitis (CMS/HCC) - Right 05/02/2018 DDD (degenerative disc disease), lumbar 05/03/19 Actinic keratosis 04/11/2018 Assessment & Plan (04/11/2018 2:20 PM GIS PROFESSOR): - Location/s: Face - Imiquimod Rx - [...] Date Type Department Care Team Description 02/26/2024 [facility]) - [facility] ENT [address] [facility] 11th [place] [address] [place] [address] Bradley FabyMS rakel 02/18/2024 1:15 PM GIS PROFESSOR Office Visit [facility] [address] [facility] [address] [place] [phone] Kendrick Hernandez MD Psychophysiological insomnia (Primary Dx); MEREDITH (obstructive sleep apnea); Hypersomnia with sleep apnea 01/17/2024 3:40 PM GIS PROFESSOR Office Visit [facility]) - [facility] ENT [address] [facility] [address] [place] [phone] Caren Caputo MD S/P insertion of hypoglossal nerve stimulator (Primary Dx); MEREDITH (obstructive sleep apnea) 01/07/2024 1:23 PM GIS PROFESSOR - 01/07/2024 6:24 PM GIS PROFESSOR Emergency [facility] [address] [place] [address] Ayla Ambrose MD Galicia, Edgar E., MD Post-operative pain (Primary Dx); Secondary hypertension; Acute nonintractable headache, unspecified headache type Discharge Disposition: Discharge to home or self care 01/01/2024 8:30 AM GIS PROFESSOR - 01/01/2024 11:00 AM GIS PROFESSOR Surgery [facility] Operating Room [id number] [place] [id number] Caren Caputo MD INSPIRE HYPOGLOSSAL NERVE STIMULATOR IMPLANT 01/01/2024 8:21 AM GIS PROFESSOR Anesthesia Event [facility] Operating Room [address] [place] [address] Evette Huddleston Jr., MD Barnhart, Lynlee Jo, NP 01/01/2024 6:29 AM GIS PROFESSOR - 01/01/2024 1:16 PM GIS PROFESSOR Hospital Encounter [facility] Operating Room [address] [place] [id number] Caren Caputo MD MEREDITH (obstructive sleep apnea) (Primary Dx) Discharge Disposition: Discharge to home or self care 12/26/2023 Telephone [facility] [address] [place] [address] [address] [place] [address] Kendrick Hernandez MD 12/26/2023 Telephone [facility] [address] [place] [address] [address] [place] [address] Kendrick Hernandez MD 12/24/2023 9:45 AM GIS PROFESSOR Pre-Admission Testing [facility] Pre Anesthesia Testing [address] [place] [id number] Type 2 diabetes mellitus with other specified complication, unspecified whether mcc insulin use (HCC) (Primary Dx); Pre-op testing [...] often do you attend chur ch or scientologist services? Never 10/13/2021 Do you belong to [...] place to sleep or slept in a snf (including now)? No 10/13/2021 Personal Safety Answer Date Recorded Have you ever been in or are you currently in a harmful physical or emotional relationship or is someone making you feel afraid or unsafe? Denies 01/07/2024 Comments No Sex and Gender Information Value Date Recorded Sex Assigned at Not on file Legal Sex Female 12:46 AM GIS PROFESSOR Gender Identity Female 04/08/2019 6:15 AM GIS PROFESSOR Sexual Orientation Straight 04/08/2019 6: 15 AM GIS PROFESSOR Occupation Industry Job Start Date Job End [...] Comments Blood Pressure 131/81 02/18/2024 1:01 PM GIS PROFESSOR Pulse 93 02/18/2024 1:01 PM GIS PROFESSOR Temperature 36.2 ??C (97.2 ??F) 01/07/2024 10:[address] Respiratory Rate 18 01/07/2024 6:00 PM GIS PROFESSOR Oxygen Saturation 97% 02/18/2024 1:01 PM GIS PROFESSOR Inhaled Oxygen Concentration - - Weight 85.3 kg (188 lb) 02/18/2024 1:01 PM GIS PROFESSOR Height 165.1 cm (5' 5 ) 02/18/2024 1:01 PM GIS PROFESSOR Body Mass Index 31.28 02/18/2024 1:01 PM GIS PROFESSOR Plan of Treatment Health Maintenance Due Date [...] 02/05/2013, 09/14/2011 Medical Devices Implanted Type Area Chemical Analytical Sampler Device Identifier Shelf Expiration Date Model / Serial / Lot [employer] Cruzito 180-223 Contour 6fr 26cm Large Inner Lumen Low Profile Bladder Lei Taper Latex Free - [id number] Implanted:Qty: 1 on 04/23/2018 by Christopher Her MD at [facility] Stent Right: Ureter [employer] Cruzito 11/19/2020 180-223 / / [id number] Plates Screws N/A: Neck [employer] Lead Neurostimulator Sleep Apnea Thoracic Permanent Respiratory Sensing Inspire 43cm 4340 - [id number] - [id number] Implanted:Qty: 1 on 01/01/2024 by Caren Caputo MD at [facility] N/A: Chest [employer] 07/21/2026 4340 / [id number] / [employer] Inspire 3 Electrode Cuff Tunnel José Lead Neurostimulator Sterile 4063 - [id number] - [id number] Implanted:Qty: 1 on 01/01/2024 by Caren Caputo MD at [facility] N/A: Neck [employer] 01/22/2026 4063 / [id number] / [employer] Inspire Generator 3028 - [id number] - [id number] Implanted:Qty: 1 on 01/01/2024 by Caren Caputo MD at [facility] N/A: Chest [employer] 07/22/2026 3028 / [id number] / Procedures Procedure Name Priority Date/Time Associated Diagnosis Comments POCT GLUCOSE DEVICE Routine 01/07/2024 4 :33 PM GIS PROFESSOR CTA HEAD NECK W WO CONTRAST ED 01/07/2024 4:19 PM GIS PROFESSOR TROPONIN T HIGH-SENSITIVITY 4-HR Timed 01/07/2024 3:24 PM GIS PROFESSOR TROPONIN T HIGH-SENSITIVITY 2-HOUR STAT 01/07/2024 1:55 PM GIS PROFESSOR XR CHEST PA LATERAL 2 VIEWS ED 01/07/2024 11:29 AM GIS PROFESSOR EGFR STAT 01/07/2024 11:11 AM GIS PROFESSOR DIFFERENTIAL AUTO STAT 01/07/2024 11: 11 AM GIS PROFESSOR TROPONIN T HIGH-SENSITIVITY SERIES (BASELINE, 2HR, 4HR, 6HR) STAT 01/07/2024 11:11 AM GIS PROFESSOR COMPREHENSIVE METABOLIC PANEL STAT 01/07/2024 11:11 AM GIS PROFESSOR CBC WITH AUTO DIFFERENTIAL STAT 01/07/2024 11:11 AM GIS PROFESSOR ECG 12-LEAD STAT 01/07/2024 11:02 AM GIS PROFESSOR POCT GLUCOSE DEVICE Routine 01/01/2024 1 1:34 AM GIS PROFESSOR XR NECK SOFT TISSUE ED Urgent/IP Urgent 01/01/2024 11:19 AM GIS PROFESSOR XR CHEST 1 VIEW ED Urgent/IP Urgent 01/01/2024 11:19 AM GIS PROFESSOR POCT GLUCOSE DEVICE Routine 01/01/2024 1 0:54 AM GIS PROFESSOR FL AN ELECTIVE ENDOTRACHEAL AIRWAY Routine 01/01/2024 9:06 AM GIS PROFESSOR INSPIRE HYPOGLOSSAL NERVE STIMULATOR IMPLANT - INSERTION 01/01/2024 8:20 AM GIS PROFESSOR MEREDITH (obstructive sleep apnea) Special Needs DR CAPUTO REQUESTS 150 MINS FOR CASE/10-14 DAYS POST OP POCT GLUCOSE DEVICE Routine 01/01/2024 7 :21 AM GIS PROFESSOR EGFR Routine 12/24/2023 11:05 AM GIS PROFESSOR Pre-op testing BASIC METABOLIC PANEL Routine 12/24/2023 11:05 AM GIS PROFESSOR Pre-op testing DIFFERENTIAL AUTO Routine 12/24/2023 10: 56 AM GIS PROFESSOR Pre-op testing CBC WITH AUTO DIFFERENTIAL Routine 12/24/2023 10:56 AM GIS PROFESSOR Pre-op testing HEMOGLOBIN A1C Routine 12/24/2023 10:56 AM GIS PROFESSOR Type 2 diabetes mellitus with other specified complication, unspecified whether mcc insulin use (HCC) Pre-op testing URINALYSIS AND REFLEX TO MICROSCOPIC AND CULTURE Routine 12/24/2023 10:56 AM GIS PROFESSOR Pre-op testing DEXA AXIAL AND FOREARM BONE [...] Results * POCT glucose (01/07/2024 4:33 PM GIS PROFESSOR) Glucose, POC 80 70 - 199 mg/dL Blood 01/07/2024 4:33 PM GIS PROFESSOR 01/07/2024 4:33 PM GIS PROFESSOR Mars Montano MD LAB POCT ORDERABLES - DEVICE Final Result [facility] ([place]) [address] [facility] Department [place] [address] * CTA Head Neck W WO Contrast (01/07/2024 4:19 PM GIS PROFESSOR) Anatomical Region Laterality Modality Head and Neck N/A Computed Tomogra phy 01/07/2024 4:43 PM GIS PROFESSOR Narrative 01/07/2024 5:02 PM GIS PROFESSOR EXAM DESCRIPTION: ?? CTA HEAD NECK W [...] prominent at C6-C7 where there is likely drga-ke-fhrdkytw spinal canal stenosis. IMPRESSION: BRAIN: No acute [...] PM T: ??01/07/2024 5:02 PM Report ID: [id number] Reading Location: ??[id number] Procedure Note Nigel Mei MD - 01/07/2024 EXAM DESCRIPTION: CTA HEAD NECK W WO CONTRAST REASON FOR STUDY: headache neck pain aftyer implant Ambulate to triage c/o had an implant put in for sleep apnea on and has had high blood pressure since then. [facility] has had a headacheon right side since this weekend. [facility] talked to primary doctor today whotold [...] There is an implantable medical generator within [facility] which per provided clinical history represents [...] prominent at C6-C7 where there is likely oqek-xq-olssfyxe spinal canal stenosis. IMPRESSION: BRAIN: No acute intracranial process identified. Chronic left basal ganglia infarct. INTRACRANIAL CTA: 1. No large vessel occlusion or significant intracranial stenosis identified. 2. Mild luminal irregularity of the left middle cerebral artery [id number] without stenosis likely represents intracranial atherosclerotic disease. [...] Nigel Mei M.D. MM: MM Report ID: [id number] Reading Location: [place] [address] Ayla Ambrose MD IMG CT PROCEDURES F inal Result * Troponin T high-sensitivity 4-hour (01/07/2024 3:24 PM GIS PROFESSOR) Trop T hs <6 <=14 ng/L Comment: Interpretive Data For further hscTnT resources including the diagnostic algorithm and an aid in interpretation, copy and paste this link: https://nrl.[email or web address]/show/hsTrop Current Interpretive Data last revised 2019. Trop T hs delta 0 ng/L [facility] ([place]) Trop T hs interp Insignificant [facility] ([place]) Blood 01/07/2024 3:24 PM GIS PROFESSOR 01/07/2024 3:26 PM GIS PROFESSOR Ayla Ambrose MD LAB BLOOD ORDERABLE S Final Result [facility] LA[facility]A ([place]) [address] [facility] Department [place] [address] * Troponin T high-sensitivity 2-hour (01/07/2024 1:55 PM GIS PROFESSOR) Trop T hs <6 <=14 ng/L Comment: Interpretive Data For further hscTnT resources including the diagnostic algorithm and an aid in interpretation, copy and paste this link: https://nrl.[email or web address]/show/hsTrop Current Interpretive Data last revised 2019. Trop T hs delta 0 ng/L [facility] ([place]) Trop T hs interp Insignificant [facility] ([place]) Blood 01/07/2024 1:55 PM GIS PROFESSOR 01/07/2024 1:56 PM GIS PROFESSOR us Ayla Ambrose MD LAB BLOOD ORDERABLE S Final Result [facility] [place]) [address] [facility] Department [place] [address] * XR Chest PA Lateral 2 Views (01/07/2024 11:29 AM GIS PROFESSOR) Anatomical Region Laterality Modality Body, Chest N/A Computed Radiogr aphy 01/07/2024 11:3 7 AM GIS PROFESSOR Narrative 01/07/2024 11:41 AM GIS PROFESSOR EXAM DESCRIPTION: XR CHEST PA LATERAL 2 [...] AM T: ??01/07/2024 11:41 AM Report ID: [id number] Reading Location: ??[id number] Procedure Note Destinee Pichardo MD - 01/07/2024 [...] Destinee Pichardo M.D. AG: ZITA Report ID: [id number] Reading Location: [id number] Ayla Ambrose MD IMG XR PROCEDURES F inal Result * Troponin T high-sensitivity series (baseline, 2hr, 4hr, 6hr) (01/07/2024 11:11 AM GIS PROFESSOR) Trop T hs <6 <=14 ng/L Comment: Interpretive Data For further hscTnT resources including the diagnostic algorithm and an aid in interpretation, copy and paste this link: https://nrl.[employer].org/show/hsTrop Current Interpretive Data last revised 2019. Blood 01/07/2024 11:1 1 AM GIS PROFESSOR 01/07/2024 11:14 AM GIS PROFESSOR Ayla Ambrose MD LAB BLOOD ORDERABLE S Final Result [facility] [place]) [address] [facility] Department [place] [address] * eGFR (01/07/2024 11:11 AM GIS PROFESSOR) eGFR >90 >=60 mL/min/1. 73 m2 Comment: [...] reviewed 2020. Blood 01/07/2024 11:1 1 AM GIS PROFESSOR 01/07/2024 11:14 AM GIS PROFESSOR us Ayla Ambrose MD LAB BLOOD ORDERABLE S Final Result [facility] ([place]) [address] Department [place] [address] * Differential, auto (01/07/2024 11:11 AM GIS PROFESSOR) Neutrophil abs 3.3 1.5 - 6.5 K/cumm [...] on 2017. Blood 01/07/2024 11:1 1 AM GIS PROFESSOR 01/07/2024 11:15 AM GIS PROFESSOR Ayla Ambrose MD LAB BLOOD ORDERABLE S Final Result [facility] ([place]) 1 [facility] [place] [address] * (ABNORMAL) CBC with auto differential (01/07/2024 11:11 AM GIS PROFESSOR) WBC 5.9 3.8 - 9.9 K/cumm Hgb [...] ([place]) Blood (Blood, Venous) 01/07/2024 11:11 AM GIS PROFESSOR 01/07/2024 11:15 AM GIS PROFESSOR us Ayla Ambrose MD LAB BLOOD ORDERABLE S Final Result [facility] ([place]) 1 [facility] [place] [address] * (ABNORMAL) Comprehensive metabolic panel (01/07/2024 11:11 AM GIS PROFESSOR) Pathologist [facility] Sodium 141 [...] [facility] ([place]) Blood 01/07/2024 11:1 1 AM GIS PROFESSOR 01/07/2024 11:14 AM GIS PROFESSOR us Ayla Ambrose MD LAB BLOOD ORDERABLE S Final Result [facility] ([place]) [address] [facility] Department [place] [address] * ECG 12 lead (01/07/2024 11:02 AM GIS PROFESSOR) 01/07/2024 11:0 2 AM GIS PROFESSOR Narrative [facility] - 01/08/2024 1:40 AM GIS PROFESSOR Vent Rate: 76 bpm RR Interval: 786 msec FL Interval: 142 msec QRS Duration: 84 msec QT Interval: 371 msec QTC Interval: 401 msec P-R-T [place]: 48 - 22 - 67 degrees IMPRESSION: SINUS RHYTHM MINIMAL VOLTAGE CRITERIA FOR LVH, CONSIDER NORMAL VARIANT ??[MEETS CRITERIA IN ONE OF: R(aVL), S(V1), R(V5), R(V5/V6)+S(V1)] NONSPECIFIC T-WAVE ABNORMALITY BORDERLINE ECG Electronically Signed By: Supa Ernandez MD Ayla Ambrose MD ECG ORDERABLES Fin al Result Performing Organization Address City/[facility]/ZIP Co de Phone Number [facility] * POCT glucose (01/01/2024 11:34 AM GIS PROFESSOR) Glucose, POC 131 70 - 199 mg/dL Blood 01/01/2024 11:3 4 AM GIS PROFESSOR 01/01/2024 11:34 AM GIS PROFESSOR Caren Caputo MD LAB POCT ORDERABLES - DEVICE Final Result Performing Organization Address [facility] Co de Phone Number [facility] [address] Department [place] [address] * XR Neck Soft Tissue (01/01/2024 11:19 AM GIS PROFESSOR) Anatomical Region Laterality Modality Head and Neck N/A Computed Radiogr aphy 01/01/2024 12:0 1 PM GIS PROFESSOR Impressions 01/01/2024 12:01 PM GIS PROFESSOR Postoperative change of hypoglossal nerve stimulator as described. Electronically signed by: Octavia Chavez M.D. Narrative 01/01/2024 12:01 PM GIS PROFESSOR EXAMINATION: XR NECK SOFT TISSUE HISTORY: lateral [...] Chest 1 Vw Portable (01/01/2024 11:19 AM GIS PROFESSOR) Anatomical Region Laterality Modality Body, Chest N/A Computed Radiogr aphy 01/01/2024 11:3 6 AM GIS PROFESSOR Impressions 01/01/2024 11:36 AM GIS PROFESSOR No pneumothorax seen. Electronically signed by: Man Becerra M.D. Narrative 01/01/2024 11:36 AM GIS PROFESSOR EXAMINATION: XR CHEST 1 VIEW HISTORY: The [...] Result * POCT glucose (01/01/2024 10:54 AM GIS PROFESSOR) Glucose, POC 122 70 - 199 mg/dL Blood 01/01/2024 10:5 4 AM GIS PROFESSOR 01/01/2024 10:54 AM GIS PROFESSOR Caren Caputo MD LAB POCT ORDERABLES - DEVICE Final Result Performing Organization Address City/State/[facility] Phone Number [facility] [address] [facility] Department [place] [address] * FL AN ELECTIVE ENDOTRACHEAL AIRWAY (01/01/2024 9:06 AM GIS PROFESSOR) Narrative Elham Barber AA - 01/01/2024 9:06 AM GIS PROFESSOR Elham Barber AA ? 01/01/2024 ??9:07 AM [...] Result * POCT glucose (01/01/2024 7:21 AM GIS PROFESSOR) Glucose, POC 89 70 - 199 mg/dL Blood 01/01/2024 7:21 AM GIS PROFESSOR 01/01/2024 7:21 AM GIS PROFESSOR us Caren Caputo MD LAB POCT ORDERABLES - DEVICE Final Result Performing Organization Address City/State/[facility] Co wy Phone Number [facility] [address] Department [place] [address] * eGFR (12/24/2023 11:05 AM GIS PROFESSOR) eGFR >90 >=60 mL/min/1. 73 m2 Comment: [...] reviewed 2020. Blood 12/24/2023 11:0 5 AM GIS PROFESSOR 12/24/2023 11:05 AM GIS PROFESSOR Ivet Hoyos NP LAB BLOOD ORDERABLES Final Res ult [facility] [address] Department of Laboratories [place] [id number] * Basic metabolic panel (12/24/2023 11:05 AM GIS PROFESSOR) Sodium 145 135 - 145 mmol/L Potassium, [...] mg/dL CERNER Blood 12/24/2023 11:0 5 AM GIS PROFESSOR 12/24/2023 11:05 AM GIS PROFESSOR Ivet Hoyos NP LAB BLOOD ORDERABLES Final Res ult [facility] [address] Department [place] [address] * Differential, auto (12/24/2023 10:56 AM GIS PROFESSOR) Neutrophil abs 3.1 1.5 - 6.5 K/cumm Imm gran abs 0.0 0.0 - 0.1 K/cumm [facility] Lymphocyte abs 1.6 0.8 - 3.3 K/cumm [facility] Monocyte abs 0.6 0.2 - 0.8 K/cumm [facility] Eosinophil abs 0.1 0.0 - 0.5 K/cumm [facility] Basophil abs 0.0 0.0 - 0.1 K/cumm [facility] Neutrophil pct 57.4 % [facility] Comment: Interpretive Data Percent cell count reference ranges are not reported, since discordance with absolute values may lead to misinterpretation of CBC data. Current Interpretive Data was last revised on 2017. Imm gran pct 0.4 % [facility] Comment: Interpretive Data Percent cell count reference ranges are not reported, since discordance with absolute values may lead to misinterpretation of CBC data. Current Interpretive Data was last revised on 2017. Lymphocyte pct 29.0 % [facility] Comment: Interpretive Data Percent cell count reference ranges are not reported, since discordance with absolute values may lead to misinterpretation of CBC data. Current Interpretive Data was last revised on 2017. Monocyte pct 11.1 % [facility] Comment: Interpretive Data Percent cell count reference ranges are not reported, since discordance with absolute values may lead to misinterpretation of CBC data. Current Interpretive Data was last revised on 2017. Eosinophil pct 1.7 % [facility] Comment: Interpretive Data Percent cell count reference [...] on 2017. Blood 12/24/2023 10:5 6 AM GIS PROFESSOR 12/24/2023 11:08 AM GIS PROFESSOR us Ivet Hoyos TECHNICAL MGR LAB BLOOD ORDERABLES Final Res ult Performing Organization Address [facility] Co de Phone Number [facility] [place] [address] Department [place] [address] * Urinalysis reflex to microscopic and culture Urine, clean voided (12/24/2023 10:56 AM GIS PROFESSOR) Color, ur Yellow Yellow Clarity, ur Clear [...] uric acid stone formation. Source: [facility] [place] Current Interpretive Data was last revised on [...] CERNER Urine, clean voided 12/24/2023 10:56 AM GIS PROFESSOR 12/24/2023 12:24 PM GIS PROFESSOR us Caren Caputo MD LAB MICROBIOLOGY - GEN ERAL ORDERABLES Final Result Performing Organization Address [facility]/ZIP Co de Phone Number [facility] [place] [address] Department [place] [address] * (ABNORMAL) CBC with auto differential (12/24/2023 10:56 AM GIS PROFESSOR) WBC 5.4 3.8 - 9.9 K/cumm Hgb 12.7 11.9 - 15.5 g/dL [facility] Hct 38.8 35.6 - 45.5 % [facility] Plt 159 150 - 400 K/cumm [facility] MPV 9.4 9.1 - 12.3 fL [facility] RBC 3.58(L) 3.90 - 5.20 M/cumm [facility] MCV 108.4(H) 81.3 - 96.4 fL [facility] MCH 35.5(H) 27.1 - 33.3 pg [facility] MCHC 32.7 32.3 - 35.7 g/dL [facility] RDW CV 12.3 11.1 - 14.9 % [facility] RDW SD 49.0(H) 35.7 - 48.1 fL [facility] NRBC abs 0.00 0.00 - 0.01 K/cumm [facility] Blood 12/24/2023 10:5 6 AM GIS PROFESSOR 12/24/2023 11:08 AM GIS PROFESSOR Ivet Hoyos NP LAB BLOOD ORDERABLES Final Res ult Performing Organization Address City/State/[facility] Phone Number [facility] [address] [address] Department [place] [address] * Hemoglobin A1c (12/24/2023 10:56 AM GIS PROFESSOR) [facility] Hgb A1C 5.0 4.0 - 5.6 % Estimated Average Glucose 97 mg/dL [facility] Comment: The ADA recommends reporting an estimated Average Glucose (eAG) with all Hemoglobin A1c results using the equation derived from a study of 507 normal and diabetic adults. ??Minority populations were underrepresented and children were not included. ?? (Diabetes Care 31:5873-4005, 2008). ??The eAG is not equivalent to a fasting glucose. Blood 12/24/2023 10:5 6 AM GIS PROFESSOR 12/24/2023 11:08 AM GIS PROFESSOR Ivet Hoyos NP LAB BLOOD [place] [address] [address] Department [place] [address] * Dexa Axial and Forearm Bone Density Scan (09/08/2022 1:34 PM CDT) Anatomical Region Laterality Modality Wrist, Body N/A Other 09/09/2022 6:09 AM CDT Narrative 09/09/2022 6:11 AM CDT EXAM DESCRIPTION: DEXA AXIAL AND FOREARM BONE DENSITY SCAN REASON FOR STUDY: 62 y/o ?? year old ??F ??with given history of: ?? Hyperparathyroidism. ??Postmenopausal status. ??Osteoporosis. ? Chemical Analytical Sampler/Model: Ouroboros Discovery SL (S/N [id number]) CLINICAL INFORMATION: Current height: ??63.5 ??inches ? [...] AM T: ??09/09/2022 6:11 AM Report ID: [id number] Reading Location: ??[id number] Procedure Note Cecy Ratliff MD - 09/09/2022 EXAM DESCRIPTION: DEXA AXIAL AND FOREARM BONE DENSITY SCAN REASON FOR STUDY: 62 y/o year old F with given history of: Hyperparathyroidism. Postmenopausal status. Osteoporosis. Chemical Analytical Sampler/Model: Ouroboros Discovery SL (S/N [id number]) CLINICAL INFORMATION: Current height: 63.5 inches Maximum [...] Cecy Ratliff M.D. TW: TW Report ID: [id number] Reading Location: [id number] us Dylan To MD IMG DXA PROCEDURES [...] on 2017. Triglycerides 36 <=149 mg/dL [facility] Comment: Interpretive Data Ages < or = [...] revised on 2017. HDL 72 >=40 mg/dL [facility] Comment: Interpretive Data Ages < or [...] on 2017. LDL, calculated 60 <=129 mg/dL [facility] Comment: Interpretive Data Ages < [...] revised on 2017. Non-HDL Cholesterol 67 mg/dL [facility] Comment: Interpretive Data Ages < or [...] last revised on 2017. Chol/HDL ratio 2 [facility] Blood 10/10/2021 1:52 PM CDT 10/10/2021 2:07 PM CDT us Mauricio Chaudhary MD LAB BLOOD ORDERABLES Final Result [facility] Department [place] [address] from Last 3 Months or Most Recently Relevant to Health Maintenance Insurance MEDICARE BL [place] [facility] [place] Advance Directives For more information, please contact: [phone] * Full Code (Latest Code Status on File) Date Activated Date Inactivated Comments 10/10/2021 5:37 PM 10/11/2021 8:50 PM * Full Code Date Activated Date Inactivated Comments 08/18/2017 6:39 PM 08/22/2017 3:42 PM Care Teams Laboratory Helper Relationship Specialty Start Date End Date Destinee Conroy MD [address] [facility] [address] [place] [id number] PCP - General 05/05/16 Desire Sams, RN Registered Nurse 04/03/17 Roscoe Mccollum MD [address] [place] [address] [address] Anesthesiologist Pain Management 12/21/21
--- OUTSIDE RECORDS SUMMARY | 2024-03-11 04:28 | XMS_ITS | Referral Summary ---
Author Organization [facility] Address [address] [place] [address] Care Team Providers Care Bellows Charger Assembler Name Role Phone Destinee Conroy MD Primary Care Provider + Desire Sams RN Unavailable Un available Roscoe Mccollum MD Unavailable [phone] Encounters Date Type Department Care Team Description 02/26/2024 Telephone [facility] - [facility] [address] 11th [place] [address] [place] [address] Faby Huerta, 02/18/2024 1:15 PM HOUSEKEEPER AND LAUNDRY ASSISTANT Office Visit [facility] [address] [place] [address] Kendrick Hernandez MD Psychophysiological insomnia (Primary Dx); MEREDITH (obstructive sleep apnea); Hypersomnia with sleep apnea 01/17/2024 3:40 PM HOUSEKEEPER AND LAUNDRY ASSISTANT Office Visit [facility]) - [facility] [address] [place] [address] Caren Caputo MD S/P insertion of hypoglossal nerve stimulator (Primary Dx); MEREDITH (obstructive sleep apnea) 01/07/2024 1:23 PM HOUSEKEEPER AND LAUNDRY ASSISTANT - 01/07/2024 6:24 PM HOUSEKEEPER AND LAUNDRY ASSISTANT Emergency [facility] Emergency Department [address] [place] [address] Ayla Ambrose MD Galicia, Edgar E., MD Post-operative pain (Primary Dx); Secondary hypertension; Acute nonintractable headache, unspecified headache type Discharge Disposition: Discharge to home or self care 01/01/2024 8:30 AM HOUSEKEEPER AND LAUNDRY ASSISTANT - 01/01/2024 11:00 AM HOUSEKEEPER AND LAUNDRY ASSISTANT Surgery [facility] Operating Room [address] [place] [address] Caren Caputo MD INSPIRE HYPOGLOSSAL NERVE STIMULATOR IMPLANT 01/01/2024 8:21 AM HOUSEKEEPER AND LAUNDRY ASSISTANT Anesthesia Event [facility] Operating Room [address] [place] [address] Evette Huddleston Jr., MD Barnhart, Lynlee Jo, NP 01/01/2024 6:29 AM HOUSEKEEPER AND LAUNDRY ASSISTANT - 01/01/2024 1:16 PM HOUSEKEEPER AND LAUNDRY ASSISTANT Hospital Encounter [facility] Operating Room [address] [place] [address] Caren Caputo MD MEREDITH (obstructive sleep apnea) (Primary Dx) Discharge Disposition: Discharge to home or self care 12/26/2023 Telephone [facility] [address] [place] [address] [address] [place] [address] Kendrick Hernandez MD 12/26/2023 Telephone [facility] [address] [place] [address] [address] [place] [address] Kendrick Hernandez MD 12/24/2023 9:45 AM HOUSEKEEPER AND LAUNDRY ASSISTANT Pre-Admission Testing [facility] Pre Anesthesia Testing [address] [place] [id number] Type 2 diabetes mellitus with other specified complication, unspecified whether terminal gauger supervisor insulin use (HCC) (Primary Dx); Pre-op testing [...] pain 05/10/2021 Degenerative cervical spinal stenosis 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 Never 10/13/2021 Do you belong to any clubs o r organizations such as mormonism groups, unions, fraternal or athletic groups, or [...] place to sleep or slept in a half-way (including now)? No 10/13/2021 Personal Safety Answer Date Recorded Have you ever been in or are you currently in a harmful physical or emotional relationship or is someone making you feel afraid or unsafe? Denies 01/07/2024 Comments No Sex and Gender Information Value Date Recorded Sex Assigned at Not on file Legal Sex Female 12:46 AM HOUSEKEEPER AND LAUNDRY ASSISTANT Gender Identity Female 04/08/2019 6:15 AM HOUSEKEEPER AND LAUNDRY ASSISTANT Sexual Orientation Straight 04/08/2019 6: 15 AM HOUSEKEEPER AND LAUNDRY ASSISTANT Occupation Industry Job Start Date Job End Date On Disability Not on file Not on file Not on file Last Filed Vital Signs Vital Sign Reading Time Taken Comments Blood Pressure 131/81 02/18/2024 1:01 PM HOUSEKEEPER AND LAUNDRY ASSISTANT Pulse 93 02/18/2024 1:01 PM HOUSEKEEPER AND LAUNDRY ASSISTANT Temperature 36.2 ??C (97.2 ??F) 01/07/2024 10:[address] Respiratory Rate 18 01/07/2024 6:00 PM HOUSEKEEPER AND LAUNDRY ASSISTANT Oxygen Saturation 97% 02/18/2024 1:01 PM HOUSEKEEPER AND LAUNDRY ASSISTANT Inhaled Oxygen Concentration - - Weight 85.3 kg (188 lb) 02/18/2024 1:01 PM HOUSEKEEPER AND LAUNDRY ASSISTANT Height 165.1 cm (5' 5 ) 02/18/2024 1:01 PM HOUSEKEEPER AND LAUNDRY ASSISTANT Body Mass Index 31.28 02/18/2024 1:01 PM HOUSEKEEPER AND LAUNDRY ASSISTANT Plan of Treatment Not on file Medical Devices Implanted Type Area Compressor Mechanic Bus Device Identifier Shelf Expiration Date Model / Serial / Lot [employer] Cruzito 180-223 Contour 6fr 26cm Large Inner Lumen Low Profile Bladder Lei Taper Latex Free - [id number] Implanted:Qty: 1 on 04/23/2018 by Christopher Her MD at [facility] Right: Ureter [employer] Cruzito 11/19/2020 180-223 / / [id number] Plates Screws N/A: Neck [employer] Lead Neurostimulator Sleep Apnea Thoracic Permanent Respiratory Sensing Inspire 43cm 4340 - [id number] - [id number] Implanted:Qty: 1 on 01/01/2024 by Caren Caputo MD at [facility] N/A: Chest [employer] 07/21/2026 4340 / [id number] / [employer] Inspire 3 Electrode Cuff Tunnel José Lead Neurostimulator Sterile 4063 - [id number] - [id number] Implanted:Qty: 1 on 01/01/2024 by Caren Caputo MD at [facility] N/A: Neck [employer] 01/22/2026 4063 / [id number] / [employer] Inspire Generator 3028 - [id number] - [id number] Implanted:Qty: 1 on 01/01/2024 by Caren Caputo MD at [facility] N/A: Chest [employer] 07/22/2026 3028 / [id number] / Procedures Procedure Name Priority Date/Time Associated Diagnosis Comments POCT GLUCOSE DEVICE Routine 01/07/2024 4 :33 PM HOUSEKEEPER AND LAUNDRY ASSISTANT CTA HEAD NECK W WO CONTRAST ED 01/07/2024 4:19 PM HOUSEKEEPER AND LAUNDRY ASSISTANT TROPONIN T HIGH-SENSITIVITY 4-HR Timed 01/07/2024 3:24 PM HOUSEKEEPER AND LAUNDRY ASSISTANT TROPONIN T HIGH-SENSITIVITY 2-HOUR STAT 01/07/2024 1:55 PM HOUSEKEEPER AND LAUNDRY ASSISTANT XR CHEST PA LATERAL 2 VIEWS ED 01/07/2024 11:29 AM HOUSEKEEPER AND LAUNDRY ASSISTANT EGFR STAT 01/07/2024 11:11 AM HOUSEKEEPER AND LAUNDRY ASSISTANT DIFFERENTIAL AUTO STAT 01/07/2024 11: 11 AM HOUSEKEEPER AND LAUNDRY ASSISTANT TROPONIN T HIGH-SENSITIVITY SERIES (BASELINE, 2HR, 4HR, 6HR) STAT 01/07/2024 11:11 AM HOUSEKEEPER AND LAUNDRY ASSISTANT COMPREHENSIVE METABOLIC PANEL STAT 01/07/2024 11:11 AM HOUSEKEEPER AND LAUNDRY ASSISTANT CBC WITH AUTO DIFFERENTIAL STAT 01/07/2024 11:11 AM HOUSEKEEPER AND LAUNDRY ASSISTANT ECG 12-LEAD STAT 01/07/2024 11:02 AM HOUSEKEEPER AND LAUNDRY ASSISTANT POCT GLUCOSE DEVICE Routine 01/01/2024 1 1:34 AM HOUSEKEEPER AND LAUNDRY ASSISTANT XR NECK SOFT TISSUE ED Urgent/IP Urgent 01/01/2024 11:19 AM HOUSEKEEPER AND LAUNDRY ASSISTANT XR CHEST 1 VIEW ED Urgent/IP Urgent 01/01/2024 11:19 AM HOUSEKEEPER AND LAUNDRY ASSISTANT POCT GLUCOSE DEVICE Routine 01/01/2024 1 0:54 AM HOUSEKEEPER AND LAUNDRY ASSISTANT NV AN ELECTIVE ENDOTRACHEAL AIRWAY Routine 01/01/2024 9:06 AM HOUSEKEEPER AND LAUNDRY ASSISTANT INSPIRE HYPOGLOSSAL NERVE STIMULATOR IMPLANT - INSERTION 01/01/2024 8:20 AM HOUSEKEEPER AND LAUNDRY ASSISTANT MEREDITH (obstructive sleep apnea) Special Needs DR CAPUTO REQUESTS 150 MINS FOR CASE/10-14 DAYS POST OP POCT GLUCOSE DEVICE Routine 01/01/2024 7 :21 AM HOUSEKEEPER AND LAUNDRY ASSISTANT EGFR Routine 12/24/2023 11:05 AM HOUSEKEEPER AND LAUNDRY ASSISTANT Pre-op testing BASIC METABOLIC PANEL Routine 12/24/2023 11:05 AM HOUSEKEEPER AND LAUNDRY ASSISTANT Pre-op testing DIFFERENTIAL AUTO Routine 12/24/2023 10: 56 AM HOUSEKEEPER AND LAUNDRY ASSISTANT Pre-op testing CBC WITH AUTO DIFFERENTIAL Routine 12/24/2023 10:56 AM HOUSEKEEPER AND LAUNDRY ASSISTANT Pre-op testing HEMOGLOBIN A1C Routine 12/24/2023 10:56 AM HOUSEKEEPER AND LAUNDRY ASSISTANT Type 2 diabetes mellitus with other specified complication, unspecified whether terminal gauger supervisor insulin use (HCC) Pre-op testing URINALYSIS AND REFLEX TO MICROSCOPIC AND CULTURE Routine 12/24/2023 10:56 AM HOUSEKEEPER AND LAUNDRY ASSISTANT Pre-op testing DEXA AXIAL AND FOREARM BONE [...] Results * POCT glucose (01/07/2024 4:33 PM HOUSEKEEPER AND LAUNDRY ASSISTANT) Glucose, POC 80 70 - 199 mg/dL Blood 01/07/2024 4:33 PM HOUSEKEEPER AND LAUNDRY ASSISTANT 01/07/2024 4:33 PM HOUSEKEEPER AND LAUNDRY ASSISTANT us Mars Montano MD LAB POCT ORDERABLES - DEVICE Final Result [facility] ([place]) [address] Department [place] [address] * CTA Head Neck W WO Contrast (01/07/2024 4:19 PM HOUSEKEEPER AND LAUNDRY ASSISTANT) Anatomical Region Laterality Modality Head and Neck N/A Computed Tomogra phy 01/07/2024 4:43 PM HOUSEKEEPER AND LAUNDRY ASSISTANT Narrative 01/07/2024 5:02 PM HOUSEKEEPER AND LAUNDRY ASSISTANT EXAM DESCRIPTION: ?? CTA HEAD NECK W [...] prominent at C6-C7 where there is likely gnjr-nl-rjwsgnlo spinal canal stenosis. IMPRESSION: BRAIN: No acute [...] PM T: ??01/07/2024 5:02 PM Report ID: [id number] Reading Location: ??[id number] Procedure Note Nigel Mei MD - 01/07/2024 [...] an implantable medical generator within [facility] which per provided clinical history represents [...] prominent at C6-C7 where there is likely emyk-gd-kjrxpziw spinal canal stenosis. IMPRESSION: BRAIN: No acute intracranial process identified. Chronic left basal ganglia infarct. INTRACRANIAL CTA: 1. No large vessel occlusion or significant intracranial stenosis identified. 2. Mild luminal irregularity of the left middle cerebral artery [id number] without stenosis likely represents intracranial atherosclerotic disease. [...] Nigel Mei M.D. MM: MM Report ID: [id number] Reading Location: [place] [address] Ayla Ambrose MD [facility] CT PROCEDURES F inal Result * Troponin T high-sensitivity 4-hour (01/07/2024 3:24 PM HOUSEKEEPER AND LAUNDRY ASSISTANT) Trop T hs <6 <=14 ng/L Comment: Interpretive Data For further hscTnT resources including the diagnostic algorithm and an aid in interpretation, copy and paste this link: https://nrl.testcatalog.org/show/hsTrop Current Interpretive Data last revised 2019. Trop T hs delta 0 ng/L [facility] ([place]) Trop T hs interp Insignificant [facility] ([place]) Blood 01/07/2024 3:24 PM HOUSEKEEPER AND LAUNDRY ASSISTANT 01/07/2024 3:26 PM HOUSEKEEPER AND LAUNDRY ASSISTANT us Ayla Ambrose MD LAB BLOOD ORDERABLE S Final Result Performing Organization Address City/[facility]/ZIP Co de Phone Number [facility] ([place]) [address] Department [place] [address] * Troponin T high-sensitivity 2-hour (01/07/2024 1:55 PM HOUSEKEEPER AND LAUNDRY ASSISTANT) Trop T hs <6 <=14 ng/L Comment: Interpretive Data For further hscTnT resources including the diagnostic algorithm and an aid in interpretation, copy and paste this link: https://nrl.testcatalog.org/show/hsTrop Current Interpretive Data last revised 2019. Trop T hs delta 0 ng/L [facility] ([place]) Trop T hs interp Insignificant [facility] ([place]) Blood 01/07/2024 1:55 PM HOUSEKEEPER AND LAUNDRY ASSISTANT 01/07/2024 1:56 PM HOUSEKEEPER AND LAUNDRY ASSISTANT us Ayla Ambrose MD LAB BLOOD ORDERABLE S Final Result Performing Organization Address [facility] Co de Phone Number [facility] ([place]) [address] [place] [address] * XR Chest PA Lateral 2 Views (01/07/2024 11:29 AM HOUSEKEEPER AND LAUNDRY ASSISTANT) Anatomical Region Laterality Modality Body, Chest N/A Computed Radiogr aphy 01/07/2024 11:3 7 AM HOUSEKEEPER AND LAUNDRY ASSISTANT Narrative 01/07/2024 11:41 AM HOUSEKEEPER AND LAUNDRY ASSISTANT EXAM DESCRIPTION: XR CHEST PA LATERAL 2 [...] AM T: ??01/07/2024 11:41 AM Report ID: [id number] Reading Location: ??[id number] Procedure Note Destinee Pichardo MD - 01/07/2024 [...] Destinee Pichardo M.D. AG: ZITA Report ID: [id number] Reading Location: [id number] Ayla Ambrose MD IMG XR PROCEDURES F inal Result * Troponin T high-sensitivity series (baseline, 2hr, 4hr, 6hr) (01/07/2024 11:11 AM HOUSEKEEPER AND LAUNDRY ASSISTANT) Trop T hs <6 <=14 ng/L Comment: Interpretive Data For further hscTnT resources including the diagnostic algorithm and an aid in interpretation, copy and paste this link: https://nrl.testcatalog.org/show/hsTrop Current Interpretive Data last revised 2019. Blood 01/07/2024 11:1 1 AM HOUSEKEEPER AND LAUNDRY ASSISTANT 01/07/2024 11:14 AM HOUSEKEEPER AND LAUNDRY ASSISTANT Ayla Ambrose MD LAB BLOOD ORDERABLE S Final Result Performing Organization Address City/State/[facility] Co de Phone Number [facility] [place]) [address] Department [place] [address] * eGFR (01/07/2024 11:11 AM HOUSEKEEPER AND LAUNDRY ASSISTANT) Pathologist [facility] eGFR >90 >=60 mL/min/1. 73 m2 Comment: [...] reviewed 2020. Blood 01/07/2024 11:1 1 AM HOUSEKEEPER AND LAUNDRY ASSISTANT 01/07/2024 11:14 AM HOUSEKEEPER AND LAUNDRY ASSISTANT us Ayla Ambrose MD LAB BLOOD ORDERABLE S Final Result [facility] ([place]) [address] Department [place] [address] * Differential, auto (01/07/2024 11:11 AM HOUSEKEEPER AND LAUNDRY ASSISTANT) Neutrophil abs 3.3 1.5 - 6.5 K/cumm [...] on 2017. Blood 01/07/2024 11:1 1 AM HOUSEKEEPER AND LAUNDRY ASSISTANT 01/07/2024 11:15 AM HOUSEKEEPER AND LAUNDRY ASSISTANT us Ayla Ambrose MD LAB BLOOD ORDERABLE S Final Result [facility] ([place]) [address] [place] [address] * (ABNORMAL) CBC with auto differential (01/07/2024 11:11 AM HOUSEKEEPER AND LAUNDRY ASSISTANT) WBC 5.9 3.8 - 9.9 K/cumm Hgb 14.2 11.9 - 15.5 g/dL [facility] ([place]) Hct 41.0 35.6 - 45.5 % [facility] [...] ([place]) Blood (Blood, Venous) 01/07/2024 11:11 AM HOUSEKEEPER AND LAUNDRY ASSISTANT 01/07/2024 11:15 AM HOUSEKEEPER AND LAUNDRY ASSISTANT us Ayla Ambrose MD LAB BLOOD ORDERABLE S Final Result [facility] ([place]) [address] Department [place] [address] * (ABNORMAL) Comprehensive metabolic panel (01/07/2024 11:11 AM HOUSEKEEPER AND LAUNDRY ASSISTANT) Sodium 141 135 - 145 mmol/L Potassium, [...] [facility] ([place]) Blood 01/07/2024 11:1 1 AM HOUSEKEEPER AND LAUNDRY ASSISTANT 01/07/2024 11:14 AM HOUSEKEEPER AND LAUNDRY ASSISTANT Ayla Ambrose MD LAB BLOOD ORDERABLE S Final Result Performing Organization Address City/[facility] Co de Phone Number [facility] ([place]) [address] Department [place] [address] * ECG 12 lead (01/07/2024 11:02 AM HOUSEKEEPER AND LAUNDRY ASSISTANT) 01/07/2024 11:0 2 AM HOUSEKEEPER AND LAUNDRY ASSISTANT Narrative [facility] - 01/08/2024 1:40 AM HOUSEKEEPER AND LAUNDRY ASSISTANT Vent Rate: 76 bpm RR Interval: 786 msec NV Interval: 142 msec QRS Duration: 84 msec QT Interval: 371 msec QTC Interval: 401 msec P-R-T [place]: 48 - 22 - 67 degrees IMPRESSION: SINUS RHYTHM MINIMAL VOLTAGE CRITERIA FOR LVH, CONSIDER NORMAL VARIANT ??[MEETS CRITERIA IN ONE OF: R(aVL), S(V1), R(V5), R(V5/V6)+S(V1)] NONSPECIFIC T-WAVE ABNORMALITY BORDERLINE ECG Electronically Signed By: Supa Ernandez MD Ayla Ambrose MD ECG ORDERABLES Fin al Result Performing Organization Address City/[facility]/ZIP Co de Phone Number [employer] [facility] * POCT glucose (01/01/2024 11:34 AM HOUSEKEEPER AND LAUNDRY ASSISTANT) Glucose, POC 131 70 - 199 mg/dL Blood 01/01/2024 11:3 4 AM HOUSEKEEPER AND LAUNDRY ASSISTANT 01/01/2024 11:34 AM HOUSEKEEPER AND LAUNDRY ASSISTANT Caren Caputo MD LAB POCT ORDERABLES - DEVICE Final Result [facility] [address] [facility] Department [place] [address] * XR Neck Soft Tissue (01/01/2024 11:19 AM HOUSEKEEPER AND LAUNDRY ASSISTANT) Anatomical Region Laterality Modality Head and Neck N/A Computed Radiogr aphy 01/01/2024 12:0 1 PM HOUSEKEEPER AND LAUNDRY ASSISTANT Impressions 01/01/2024 12:01 PM HOUSEKEEPER AND LAUNDRY ASSISTANT Postoperative change of hypoglossal nerve stimulator as described. Electronically signed by: Octavia Chavez M.D. Narrative 01/01/2024 12:01 PM HOUSEKEEPER AND LAUNDRY ASSISTANT EXAMINATION: XR NECK SOFT TISSUE HISTORY: lateral [...] Chest 1 Vw Portable (01/01/2024 11:19 AM HOUSEKEEPER AND LAUNDRY ASSISTANT) Anatomical Region Laterality Modality Body, Chest N/A Computed Radiogr aphy 01/01/2024 11:3 6 AM HOUSEKEEPER AND LAUNDRY ASSISTANT Impressions 01/01/2024 11:36 AM HOUSEKEEPER AND LAUNDRY ASSISTANT No pneumothorax seen. Electronically signed by: Man Becerra M.D. Narrative 01/01/2024 11:36 AM HOUSEKEEPER AND LAUNDRY ASSISTANT EXAMINATION: XR CHEST 1 VIEW HISTORY: The [...] Result * POCT glucose (01/01/2024 10:54 AM HOUSEKEEPER AND LAUNDRY ASSISTANT) Glucose, POC 122 70 - 199 mg/dL Blood 01/01/2024 10:5 4 AM HOUSEKEEPER AND LAUNDRY ASSISTANT 01/01/2024 10:54 AM HOUSEKEEPER AND LAUNDRY ASSISTANT Caren Caputo MD LAB POCT ORDERABLES - DEVICE Final Result [facility] [address] [place] [address] * NV AN ELECTIVE ENDOTRACHEAL AIRWAY (01/01/2024 9:06 AM HOUSEKEEPER AND LAUNDRY ASSISTANT) Narrative Elham Barber AA - 01/01/2024 9:06 AM HOUSEKEEPER AND LAUNDRY ASSISTANT Elham Barber AA ? 01/01/2024 ??9:07 AM [...] Result * POCT glucose (01/01/2024 7:21 AM HOUSEKEEPER AND LAUNDRY ASSISTANT) [facility] Glucose, POC 89 70 - 199 mg/dL Blood 01/01/2024 7:21 AM HOUSEKEEPER AND LAUNDRY ASSISTANT 01/01/2024 7:21 AM HOUSEKEEPER AND LAUNDRY ASSISTANT us Caren Caputo MD LAB POCT ORDERABLES - DEVICE Final Result [facility] [address] Department [place] [address] * eGFR (12/24/2023 11:05 AM HOUSEKEEPER AND LAUNDRY ASSISTANT) [facility] eGFR >90 >=60 mL/min/1. 73 [...] reviewed 2020. Blood 12/24/2023 11:0 5 AM HOUSEKEEPER AND LAUNDRY ASSISTANT 12/24/2023 11:05 AM HOUSEKEEPER AND LAUNDRY ASSISTANT us Ivet Hoyos STOVE INSTALLER LAB BLOOD ORDERABLES Final Res ult [facility] [address] Department [place] [address] * Basic metabolic panel (12/24/2023 11:05 AM HOUSEKEEPER AND LAUNDRY ASSISTANT) Sodium 145 135 - 145 mmol/L Potassium, pl 4.0 3.3 - 4.9 mmol/L [facility] Chloride 109 97 - 110 mmol/L [facility] CH CO2 28 22 - 32 mmol/L [facility] CH Anion gap 8 2 - 15 mmol/L [facility] BUN 19 6 - 25 mg/dL [facility] Creatinine 0.68 0.60 - 1.10 mg/dL [facility] Glucose 72 70 - 199 mg/dL [facility] Comment: Interpretive Data Fasting glucose >/= 126 [...] 2022. Calcium 9.1 8.5 - 10.3 mg/dL [facility] Blood 12/24/2023 11:0 5 AM HOUSEKEEPER AND LAUNDRY ASSISTANT 12/24/2023 11:05 AM HOUSEKEEPER AND LAUNDRY ASSISTANT us Ivet Hoyos STOVE INSTALLER LAB BLOOD ORDERABLES Final Res ult [facility] [address] Department [place] [address] * Differential, auto (12/24/2023 10:56 AM HOUSEKEEPER AND LAUNDRY ASSISTANT) Neutrophil abs 3.1 1.5 - 6.5 K/cumm Imm gran abs 0.0 0.0 - 0.1 K/cumm [facility] Lymphocyte abs 1.6 0.8 - 3.3 K/cumm [facility] Monocyte abs 0.6 0.2 - 0.8 K/cumm [facility] Eosinophil abs 0.1 0.0 - 0.5 K/cumm [facility] Basophil abs 0.0 0.0 - 0.1 K/cumm [facility] Neutrophil pct 57.4 % [facility] Comment: Interpretive Data Percent cell count reference ranges are not reported, since discordance with absolute values may lead to misinterpretation of CBC data. Current Interpretive Data was last revised on 2017. Imm gran pct 0.4 % [facility] Comment: Interpretive Data Percent cell count reference [...] on 2017. Blood 12/24/2023 10:5 6 AM HOUSEKEEPER AND LAUNDRY ASSISTANT 12/24/2023 11:08 AM HOUSEKEEPER AND LAUNDRY ASSISTANT us Ivet Hoyos STOVE INSTALLER LAB BLOOD ORDERABLES Final Res ult [facility] [address] [address] Department [place] [address] * Urinalysis reflex to microscopic and culture Urine, clean voided (12/24/2023 10:56 AM HOUSEKEEPER AND LAUNDRY ASSISTANT) Color, ur Yellow Yellow Clarity, ur Clear Clear [facility] Specific gravity, ur 1.017 1.003 - 1.030 [facility] pH, urine 6.0 [facility] Comment: Interpretive Data ? Urine pH is affected by diet, medications, systemic acid-base disturbances, and renal tubular function. ??pH may affect urinary stone formation. ??For example, urine pH below 6.0 may help reduce the tendency for calcium phosphate stones and pH greater than 6.0 may reduce the tendency for uric acid stone formation. Source: [facility] algrano Current Interpretive Data was last revised on [...] [facility] Urine, clean voided 12/24/2023 10:56 AM HOUSEKEEPER AND LAUNDRY ASSISTANT 12/24/2023 12:24 PM HOUSEKEEPER AND LAUNDRY ASSISTANT us Caren Caputo MD LAB MICROBIOLOGY - GEN ERAL ORDERABLES Final Result [facility] [address] Department [place] [address] * (ABNORMAL) CBC with auto differential (12/24/2023 10:56 AM HOUSEKEEPER AND LAUNDRY ASSISTANT) WBC 5.4 3.8 - 9.9 K/cumm Hgb [...] [facility] Blood 12/24/2023 10:5 6 AM HOUSEKEEPER AND LAUNDRY ASSISTANT 12/24/2023 11:08 AM HOUSEKEEPER AND LAUNDRY ASSISTANT us Ivet Hoyos NP LAB BLOOD ORDERABLES Final Res ult [facility] [address] Department [place] [address] * Hemoglobin A1c (12/24/2023 10:56 AM HOUSEKEEPER AND LAUNDRY ASSISTANT) Hgb A1C 5.0 4.0 - 5.6 % Estimated Average Glucose 97 mg/dL [facility] Comment: The ADA recommends reporting an estimated Average Glucose (eAG) with all Hemoglobin A1c results using the equation derived from a study of 507 normal and diabetic adults. ??Minority populations were underrepresented and children were not included. ?? (Diabetes Care 31:2769-9590, 2008). ??The eAG is not equivalent to a fasting glucose. Blood 12/24/2023 10:5 6 AM HOUSEKEEPER AND LAUNDRY ASSISTANT 12/24/2023 11:08 AM HOUSEKEEPER AND LAUNDRY ASSISTANT Ivet Hoyos STOVE INSTALLER LAB BLOOD ORDERABLES Final Res ult Performing Organization Address [facility] Co de Phone Number [facility] [address] [place] [address] * Dexa Axial and Forearm Bone Density Scan (09/08/2022 1:34 PM CDT) Anatomical Region Laterality Modality Wrist, Body N/A Other 09/09/2022 6:09 AM CDT Narrative 09/09/2022 6:11 AM CDT EXAM DESCRIPTION: DEXA AXIAL AND FOREARM BONE DENSITY SCAN REASON FOR STUDY: 62 y/o ?? year old ??F ??with given history of: ?? Hyperparathyroidism. ??Postmenopausal status. ??Osteoporosis. ? Compressor Mechanic Bus/Model: [employer] SL (S/N [id number]) CLINICAL INFORMATION: Current height: ??63.5 ??inches ? [...] AM T: ??09/09/2022 6:11 AM Report ID: [id number] Reading Location: ??[id number] Procedure Note Cecy Ratliff MD - 09/09/2022 EXAM DESCRIPTION: DEXA AXIAL AND FOREARM BONE DENSITY SCAN REASON FOR STUDY: 62 y/o year old F with given history of: Hyperparathyroidism. Postmenopausal status. Osteoporosis. Compressor Mechanic Bus/Model: [employer] (S/N [id number]) CLINICAL INFORMATION: Current height: 63.5 inches Maximum [...] Cecy Ratliff M.D. TW: BAKARI Report ID: [id number] Reading Location: [place] [address] Dylan Raul To MD IM DXA PROCEDURES [...] Cholesterol 139 30 - 199 mg/dL [facility] Comment: Interpretive Data Ages < [...] on 2017. Triglycerides 36 <=149 mg/dL [facility] Comment: Interpretive Data Ages < [...] on 2017. HDL 72 >=40 mg/dL [facility] Comment: Interpretive Data Ages < [...] 2017. LDL, calculated 60 <=129 mg/dL [facility] Comment: Interpretive Data Ages < [...] BLOOD ORDERABLES Final Result [facility]AL [facility] Department [place] [address] from Last 3 Months or Most Recently Relevant to Health Maintenance Insurance [place] Advance Directives For more information, please contact: [phone] * Full Code (Latest Code Status on File) Date Activated Date Inactivated Comments 10/10/2021 5:37 PM 10/11/2021 8:50 PM * Full Code Date Activated Date Inactivated Comments 08/18/2017 6:39 PM 08/22/2017 3:42 PM Care Teams Bellows Charger Assembler Relationship Specialty Start Date End Date Destinee Conroy MD [address] [place] [address] PCP - General 05/05/16 Desire Sams, BRICE Registered Nurse 04/03/17 Roscoe Mccollum MD [address] [place] [address] [address] Anesthesiologist Pain Management 12/21/21
--- OUTSIDE RECORDS SUMMARY | 2024-03-11 04:28 | XMS_ITS | Encounter Summary ---
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 Gender Identity Female 04/08/2019 6:15 AM SWIMMING POOL ATTENDANT Sexual Orientation Straight 04/08/2019 6: 15 AM SWIMMING POOL ATTENDANT Occupation Industry Job Start Date Job End [...] on filedocumented in this encounter Care Teams Flying Squad Salesperson Relationship Specialty Start Date End Date Jona Bravo MD [address] [place] [address] PCP - General 05/05/16 Desire Sams, RN Registered Nurse 04/03/17 Pooja [place], [facility] [address] [facility] ([facility]) Mailstop [phone] [place] [address] [facility] Outpatient Natural Gas Trader 10/12/21 11/09/21 Roscoe Mccollum MD [address] [place] [address] DR THAYER [address] [place] [address] Anesthesiologist Pain Management 12/21/21 documented as of this encounter
--- OUTSIDE RECORDS SUMMARY | 2024-03-11 04:28 | XMS_ITS | Encounter Summary ---
Author Organization [facility] Address [address] [place] [address] Care Team Providers Care Body Presser Name Role Phone Jona Bravo MD Primary Care Provider [phone] Reason for Visit * Reason Comments Clinical Consult Before Scheduling Encounter Details Date Type Department Care Team (Late st Contact Info) Description 02/11/2024 Telephone [facility] [address] [place] [address] Jona Bravo MD [address] [facility] [address] [place] [address] Clinical Consult Before Scheduling Social [...] any clubs o r organizations such as jehovah's witness groups, unions, fraternal or athletic groups, or [...] on file Legal Sex Female 9:43 AM RADIOPHARMACIST Gender Identity Not on file Sexual Orientation Not on file 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 Topic: Symptomatic Care >> Feb 11, 2024 4:22 PM Connie Ardon wrote: Caller has new symptoms and is seeking care. Age Range/Symptom: Adult: 18+ - Cold, Flu, COVID, Sinus, Hay Fever, Allergies, Cough, Fever Does patient have any of the following other urgent symptoms: No urgent symptoms requiring warm call transfer Caller Name: Tiffanie Ruiz Callback Number: [phone] Call Notes: She has been sick since 01/31/2024. She went to the Urgent care ([facility]), yesterday. Where they prescribed steroids, and gave x-ray. She Is still suffering from cough, raspy throat, chest aches, and head congestion. Emergency inhaler not working well Refer to - [facility] (02/11/2024) She is scheduled with [facility] on 02/14/2024 Unable to schedule appointment within patient's desired timeframe. Patient declined all other options for immediate care, preferring to schedule first available. Scheduled appointment for 02/14/24 at3pm . If this is not clinically appropriate, please contact patient. No OPHARMACIST documented in this encounter Plan of Treatment Upcoming Encounters Date Type Department Care Team (Late st Contact Info) Description 04/23/2024 1:20 PM CDT Office Visit [address] [place] [address] Jona Bravo MD [address] [place] [address] [address] [place] [address] 08/25/2024 10:40 AM CDT Office Visit [address] [place] [phone] Jona Bravo MD [address] [place] [address] [address] [place] [address] documented as of this encounter Visit Diagnoses Not on filedocumented in this encounter Care Teams Body Presser Relationship Specialty Start Date End Date Jona Bravo MD PCP - General Internal Medicine 11/25/15 documented as of this encounter
--- OUTSIDE RECORDS SUMMARY | 2024-03-11 04:28 | XMS_ITS | Data Portability ---
Author Organization [facility] [employer], Main Office Address [address] [place] [address] Assessment No assessment recorded. Plan of Treatment [...] Care in Diabe shahnaz(A DA). Not Available [place] [address] [place], [address], 09/14/2021 06:00:34 09/08/19 22 09/14/2021 VITAM IN [...] /MS is recom dani d: order code 46977 (salty ents >2yrs ). See Note 1 Note 1 For addit ional infor axel valderrama refer to http: //lisa Alston stDia gnost ics.c om/fa q/FAQ 199 (This link is being provi ded for infor alith pereyra/ [place] purpo ses only. ) Not Available [facility] [address] [address] [place], [address], 09/14/2021 06:00:33 09/08/19 22 09/14/2021 THYRO ID PANEL WITH TSH T3 uptake 32 % 22-35 normal Not Available [facility] [place] [address] [place], [address], 09/14/2021 06:00:32 09/08/19 22 09/14/2021 THYRO ID PANEL WITH TSH T4 (thyroxine), total 7.4 mcg/d L 5.1-11 .9 normal Not Available [facility] [address] [address] [place], [address], 09/14/2021 06:00:32 09/08/19 22 09/14/2021 THYRO ID PANEL WITH TSH free T4 index (T7) 2.4 1.4-3. 8 normal Not Available [facility] [place] [address] [address] [place], [address], 09/14/2021 06:00:32 09/08/1909/14/2021 THYRO ID PANEL WITH TSH TSH 2.72 mIU/L 0.40-4 .50 normal Not Available [facility] [address], [address], 09/14/2021 06:00:32 09/08/19 22 09/14/2021 INSUL IN [...] (dete kim, gluli sine) . Not Available [facility] [address], [address], 09/14/2021 06:00:31 09/08/1909/14/2021 CORTI JUAN, TOTAL cortisol, total 4.4 mcg/d L normal Refer ence Range : For 8 a.m.( 7-9 a.m.) Speci men: 4.0-2 2.0 Refer ence Range : For 4 p.m.( 3-5 p.m.) Speci men: 3.0-1 7.0 * Pleas e inter pret above resul ts accor dingl y * Not Available [facility] [address] [address] [place], [address], 09/14/2021 06:00:30 09/08/1909/14/2021 THYRO ID PEROX IDASE AND THYRO GLOBU HERO ANTIB ODIES thyroglobuli n antibodies <1 IU/mL < or = 1 normal Not Available [address], [address], 09/14/2021 06:00:29 09/08/19 22 09/14/2021 THYRO ID PEROX IDASE AND THYRO GLOBU HERO ANTIB ODIES thyroid peroxidase antibodies 1 IU/mL <9 normal Not Available [address], [address], 09/14/2021 06:00:29 09/08/19 22 09/14/2021 ACTH, PLASM A acth, plasma <5 pg/mL 6-50 low Refer ence range appli es only to speci mens colle cted betwe en 7am-1 0am. Not Available [address], [address], 09/14/2021 06:00:28 09/08/19 22 09/14/2021 COMPR EHENS KRISTYN METAB OLIC PANEL glucose 81 mg/dL 65-99 normal Fasti ng refer ence inter kathy Not Available [address], [address], 09/14/2021 06:00:27 09/08/19 22 09/14/2021 COMPR EHENS KRISTYN METAB OLIC PANEL urea nitrogen (BUN) 23 mg/dL 7-25 normal Not Available [address], [address], 09/14/2021 06:00:27 09/08/19 22 09/14/2021 COMPR EHENS KRISTYN METAB OLIC PANEL creatinine 0.70 mg/dL 0.50-1 .05 normal Not Available [address], [address], 09/14/2021 06:00:27 09/08/19 22 09/14/2021 COMPR EHENS [...] kdoqi /gfr% 5Fcal culat or Not Available [address] [place], [address], 09/14/2021 06:00:27 09/08/19 22 09/14/2021 COMPR EHENS KRISTYN METAB OLIC PANEL BUN/creatini ne ratio not applic able (calc ) 6-22 Not Available [address], [address], 09/14/2021 06:00:27 09/08/19 22 09/14/2021 COMPR EHENS KRISTYN METAB OLIC PANEL sodium 141 mmol/ L 135-14 6 normal Not Available [address], [address], 09/14/2021 06:00:27 09/08/19 22 09/14/2021 COMPR EHENS KRISTYN METAB OLIC PANEL potassium 3.7 mmol/ L 3.5-5. 3 normal Not Available [address], [address], 09/14/2021 06:00:27 09/08/19 22 09/14/2021 COMPR EHENS KRISTYN METAB OLIC PANEL chloride 103 mmol/ L 98-110 normal Not Available [employer] [facility] [address], [address], 09/14/2021 06:00:27 09/08/19 22 09/14/2021 COMPR EHENS KRISTYN METAB OLIC PANEL carbon dioxide 33 mmol/ L 20-32 high Not Available [address], [address], 09/14/2021 06:00:27 09/08/19 22 09/14/2021 COMPR EHENS KRISTYN METAB OLIC PANEL calcium 9.2 mg/dL 8.6-10 .4 normal Not Available [address], [address], 09/14/2021 06:00:27 09/08/19 22 09/14/2021 COMPR EHENS KRISTYN METAB OLIC PANEL protein, total 6.0 g/dL 6.1-8. 1 low Not Available [address], [address], 09/14/2021 06:00:27 09/08/19 22 09/14/2021 COMPR EHENS KRISTYN METAB OLIC PANEL albumin 4.1 g/dL 3.6-5. 1 normal Not Available [address], [address], 09/14/2021 06:00:27 09/08/19 22 09/14/2021 COMPR EHENS KRISTYN METAB OLIC PANEL globulin 1.9 g/dL_ (calc ) 1.9-3. 7 normal Not Available [address], [address], 09/14/2021 06:00:27 09/08/19 22 09/14/2021 COMPR EHENS KRISTYN METAB OLIC PANEL albumin/glob ulin ratio 2.2 (calc ) 1.0-2. 5 normal Not Available [address], [address], 09/14/2021 06:00:27 09/08/19 22 09/14/2021 COMPR EHENS KRISTYN METAB OLIC PANEL bilirubin, total 0.6 mg/dL 0.2-1. 2 normal Not Available [address], [address], 09/14/2021 06:00:27 09/08/19 22 09/14/2021 COMPR EHENS KRISTYN METAB OLIC PANEL alkaline phosphatase 87 U/L 37-153 normal Not Available [employer] [address], [address], 09/14/2021 06:00:27 09/08/19 22 09/14/2021 COMPR EHENS KRISTYN METAB OLIC PANEL AST 34 U/L 10-35 normal Not Available [facility] [address], [address], 09/14/2021 06:00:27 09/08/19 22 09/14/2021 COMPR EHENS KRISTYN METAB OLIC PANEL ALT 41 U/L 6-29 high Not Available [address], [address], 09/14/2021 06:00:27 09/08/19 22 09/14/2021 PHOSP HATE ( PHOSP HORUS ) phosphate ( phosphorus) 4.1 mg/dL 2.5-4. 5 normal Not Available [address], [address], 09/14/2021 06:00:26 09/08/1909/14/2021 PTH, INTAC T AND [...] or Low Amanda l High Not Available [employer] [address], [address], 09/14/2021 06:00:24 09/08/1909/14/2021 PTH, INTAC T AND CALCI UM calcium 9.2 mg/dL 8.6-10 .4 normal Not Available [address], [address], 09/14/2021 06:00:24 09/09/19 22 09/16/2021 PANCR EATIC [...] subst ituti on thera py. Not Available [address], [address], 09/17/2021 17:37:45 09/09/19 22 09/16/2021 FECAL FAT, QUALI TATIV E fecal fat, qualitative abnorm al normal abnormal Not Available [address], [address], 09/17/2021 17:37:45 09/09/19 22 09/16/2021 CALCI UM, 24 HOUR URINE (W/ CREAT ININE ) calcium/crea tinine ratio 90 mg/g_ creat 30-275 normal Not Available [address], [address], 09/17/2021 17:37:44 09/09/19 22 09/16/2021 CALCI UM, 24 HOUR URINE (W/ CREAT ININE ) calcium, 24 hour urine 123 mg/24 _h normal Refer ence Range 35-25 0 Low calci um diet 35-20 0 Not Available [address], [address], 09/17/2021 17:37:44 09/09/19 22 09/16/2021 CALCI UM, 24 HOUR URINE (W/ CREAT ININE ) creatinine, 24 hour urine 1.38 g/24_ h 0.50-2 .15 normal Not Available [facility] [address] [place], [address], 09/17/2021 17:37:44 10/08/19 22 10/08/2021 ACTH, PLASM A acth, plasma 21.9 pg/mL 7.2-63 .3 ACTH refer ence inter kathy for sampl es colle cted betwe en 7 and 10 AM. Perfo rmed at: [facility] [address], [place] [address] Lab Direc tor: Dev morel PhD, Phone : [phone] Not Available [facility] (Lab) [address] [place], [address], 10/08/2021 16:09:46 10/08/19 22 10/07/2021 CORTI JUAN, TOTAL , A.M. beverly AM 11.3 ug/dL 4.5-22 .7 Not Available [facility] (Lab) [address] [place], [address], 10/07/2021 13:57:03 12/17/19 22 12/18/2021 CALCI UM, IONIZ ED calcium, ionized 5.1 mg/dL 4.8-5. 6 normal Not Available [employer] [facility] [address] [place], [place] [address], [address], 12/18/2021 06:34:00 12/17/19 22 12/18/2021 TSH+F REE T4 TSH 0.95 mIU/L 0.40-4 .50 normal Not Available [employer] [facility] [address] [facility] [place], [address], 12/18/2021 06:34:00 12/17/19 22 12/18/2021 TSH+F REE T4 T4, free 1.0 NG/dL 0.8-1. 8 normal Not Available [employer] [address] [address] [place], [address], 12/18/2021 06:34:00 12/17/19 22 12/18/2021 VITAM IN [...] /MS is recom dani d: order code 42495 (salty ents >2yrs ). See Note 1 Note 1 For addit ional infor axel valderrama e refer to http: //[facility] gui Alston stDia gnost ics.c om/fa q/FAQ 199 (This link is being provi ded for infor laith pereyra/ [place] purpo ses only. ) Not Available [facility] [address] [address] [place], [address], 12/18/2021 06:34:00 12/17/19 22 12/18/2021 T3, FREE T3, free 3.1 pg/mL 2.3-4. 2 normal Not Available [facility] [address] [place], [address], 12/18/2021 06:33:59 12/17/19 22 12/18/2021 COMPR EHENS KRISTYN METAB OLIC PANEL glucose 100 mg/dL 65-99 high Fasti ng refer ence inter kathy For someo ne witho ut known diabe shahnaz, a gluco se value betwe en 100 and 125 mg/dL is consi stent with predi abete s and shoul d be confi rmed with a follo w-up test. Not Available [address] [address] [place], [address], 12/18/2021 06:33:59 12/17/19 22 12/18/2021 COMPR EHENS KRISTYN METAB OLIC PANEL urea nitrogen (BUN) 20 mg/dL 7-25 normal Not Available [address] [address] [place], [address], 12/18/2021 06:33:59 12/17/19 22 12/18/2021 COMPR EHENS KRISTYN METAB OLIC PANEL creatinine 0.73 mg/dL 0.50-1 .05 normal Not Available [address] [address] [place], [address], 12/18/2021 06:33:59 12/17/19 22 12/18/2021 COMPR EHENS [...] kdoqi /gfr% 5Fcal culat or Not Available [address] [address] [place], [address], 12/18/2021 06:33:59 12/17/19 22 12/18/2021 COMPR EHENS KRISTYN METAB OLIC PANEL BUN/creatini ne ratio not applic able (calc ) 6-22 Not Available [address], [address], 12/18/2021 06:33:59 12/17/19 22 12/18/2021 COMPR EHENS KRISTYN METAB OLIC PANEL sodium 143 mmol/ L 135-14 6 normal Not Available [address], [address], 12/18/2021 06:33:59 12/17/19 22 12/18/2021 COMPR EHENS KRISTYN METAB OLIC PANEL potassium 4.4 mmol/ L 3.5-5. 3 normal Not Available [address], [address], 12/18/2021 06:33:59 12/17/19 22 12/18/2021 COMPR EHENS KRISTYN METAB OLIC PANEL chloride 104 mmol/ L 98-110 normal Not Available [address], [address], 12/18/2021 06:33:59 12/17/19 22 12/18/2021 COMPR EHENS KRISTYN METAB OLIC PANEL carbon dioxide 34 mmol/ L 20-32 high Not Available [address], [address], 12/18/2021 06:33:59 12/17/19 22 12/18/2021 COMPR EHENS KRISTYN METAB OLIC PANEL calcium 9.4 mg/dL 8.6-10 .4 normal Not Available [address], [address], 12/18/2021 06:33:59 12/17/19 22 12/18/2021 COMPR EHENS KRISTYN METAB OLIC PANEL protein, total 6.1 g/dL 6.1-8. 1 normal Not Available [address], [address], 12/18/2021 06:33:59 12/17/19 22 12/18/2021 COMPR EHENS KRISTYN METAB OLIC PANEL albumin 4.2 g/dL 3.6-5. 1 normal Not Available [address], [address], 12/18/2021 06:33:59 12/17/19 22 12/18/2021 COMPR EHENS KRISTYN METAB OLIC PANEL globulin 1.9 g/dL_ (calc ) 1.9-3. 7 normal Not Available [address], [address], 12/18/2021 06:33:59 12/17/19 22 12/18/2021 COMPR EHENS KRISTYN METAB OLIC PANEL albumin/glob ulin ratio 2.2 (calc ) 1.0-2. 5 normal Not Available [address], [address], 12/18/2021 06:33:59 12/17/19 22 12/18/2021 COMPR EHENS KRISTYN METAB OLIC PANEL bilirubin, total 1.0 mg/dL 0.2-1. 2 normal Not Available [address], [address], 12/18/2021 06:33:59 12/17/19 22 12/18/2021 COMPR EHENS RKISTYN METAB OLIC PANEL alkaline phosphatase 84 U/L 37-153 normal Not Available [address], [address], 12/18/2021 06:33:59 12/17/19 22 12/18/2021 COMPR EHENS KRISTYN METAB OLIC PANEL AST 32 U/L 10-35 normal Not Available [address], [address], 12/18/2021 06:33:59 12/17/19 22 12/18/2021 COMPR EHENS KRISTYN METAB OLIC PANEL ALT 37 U/L 6-29 high Not Available [address], [address], 12/18/2021 06:33:59 12/17/19 22 12/18/2021 PHOSP HATE ( PHOSP HORUS ) phosphate ( phosphorus) 4.0 mg/dL 2.5-4. 5 normal Not Available [facility] [address], [address], 12/18/2021 06:33:58 12/17/1912/18/2021 PTH, INTAC T AND [...] High High Non-P libby yroid Hyper calce usah Low or Low Amanda l High Not Available [facility] [employer] [facility] [address], [address], 12/18/2021 06:33:58 12/17/1912/18/2021 PTH, INTAC T AND CALCI UM calcium 9.4 mg/dL 8.6-10 .4 normal Not Available [facility] [address], [address], 12/18/2021 06:33:58 03/03/19 23 03/17/2022 TSH+F REE T4 TSH 1.96 mIU/L 0.40-4 .50 normal Not Available [facility] [address], [address], 03/17/2022 21:44:15 03/03/19 23 03/17/2022 TSH+F REE T4 T4, free 1.0 NG/dL 0.8-1. 8 normal Not Available [facility] [address], [address], 03/17/2022 21:44:15 03/03/19 23 03/17/2022 T3, FREE T3, free 3.5 pg/mL 2.3-4. 2 normal Not Available [facility] [address] , [place], [address], 03/17/2022 21:44:14 03/03/1903/17/2022 THYRO ID PEROX IDASE ANTIB ODIES thyroid peroxidase antibodies 2 IU/mL <9 normal Not Available [facility] [address] [address], [place], [address], 03/17/2022 21:44:14 03/03/19 23 03/17/2022 CHROM OGRAN [...] not be inter prete d as absol resighini evide nce of the prese nce or absen ce of disea se. This test was devel oped and its madison tical perfo rmanc e gus cteri stics have been deter mined by [facility] [place] . It has not been clear ed or appro otilia by FDA. This assay has been valid ated pursu ant to the CLIA regul ation s and is used for clini fortunato purpo ses. Not Available [facility] [place] [address] [place], [address], 03/17/2022 21:44:13 03/03/19 23 03/17/2022 VASOA CTIVE [...] not be inter prete d as absol resighini evide nce of the prese nce or absen ce of disea se. This test was devel oped and its madison tical perfo rmanc e gus cteri stics have been deter mined by [facility] . It has not been clear ed or appro otilia by FDA. This assay has been valid ated pursu ant to the CLIA regul ation s and is used for clini fortunato purpo ses. Not Available [facility] [place] [address] [place], [address], 03/17/2022 21:44:13 03/03/19 23 03/17/2022 GLUCA SOUMYA glucagon 15 pg/mL 11-78 This test was perfo rmed using the Gluca soumya CATHY metho d stand ardiz ed again st the Inter natio nal refer ence prepa ratio n 69/19 4 and has a new refer ence range . Not Available [facility] [place] [address] [place], [address], 03/17/2022 21:44:12 03/03/19 23 03/17/2022 COMPR EHENS KRISTYN METAB OLIC PANEL glucose 89 mg/dL 65-99 normal Fasti ng refer ence inter kathy Not Available [facility] [place] [address] [place], [address], 03/17/2022 21:44:11 03/03/19 23 03/17/2022 COMPR EHENS KRISTYN METAB OLIC PANEL urea nitrogen (BUN) 22 mg/dL 7-25 normal Not Available [address], [address], 03/17/2022 21:44:11 03/03/19 23 03/17/2022 COMPR EHENS KRISTYN METAB OLIC PANEL creatinine 0.66 mg/dL 0.50-1 .05 normal Not Available [address], [address], 03/17/2022 21:44:11 03/03/19 23 03/17/2022 COMPR EHENS [...] kdoqi /gfr% 5Fcal culat or Not Available [address], [address], 03/17/2022 21:44:11 03/03/19 23 03/17/2022 COMPR EHENS KRISTYN METAB OLIC PANEL BUN/creatini ne ratio not applic able (calc ) 6-22 Not Available [address], [address], 03/17/2022 21:44:11 03/03/19 23 03/17/2022 COMPR EHENS KRISTYN METAB OLIC PANEL sodium 143 mmol/ L 135-14 6 normal Not Available [address], [address], 03/17/2022 21:44:11 03/03/19 23 03/17/2022 COMPR EHENS KRISTYN METAB OLIC PANEL potassium 4.1 mmol/ L 3.5-5. 3 normal Not Available [address], [address], 03/17/2022 21:44:11 03/03/19 23 03/17/2022 COMPR EHENS KRISTYN METAB OLIC PANEL chloride 107 mmol/ L 98-110 normal Not Available [address], [address], 03/17/2022 21:44:11 03/03/19 23 03/17/2022 COMPR EHENS KRISTYN METAB OLIC PANEL carbon dioxide 33 mmol/ L 20-32 high Not Available [address], [address], 03/17/2022 21:44:11 03/03/19 23 03/17/2022 COMPR EHENS KRISTYN METAB OLIC PANEL calcium 9.5 mg/dL 8.6-10 .4 normal Not Available [address], [address], 03/17/2022 21:44:11 03/03/19 23 03/17/2022 COMPR EHENS KRISTYN METAB OLIC PANEL protein, total 5.8 g/dL 6.1-8. 1 low Not Available [address], [address], 03/17/2022 21:44:11 03/03/19 23 03/17/2022 COMPR EHENS KRISTYN METAB OLIC PANEL albumin 4.0 g/dL 3.6-5. 1 normal Not Available [address], [address], 03/17/2022 21:44:11 03/03/19 23 03/17/2022 COMPR EHENS KRISTYN METAB OLIC PANEL globulin 1.8 g/dL_ (calc ) 1.9-3. 7 low Not Available [address], [address], 03/17/2022 21:44:11 03/03/19 23 03/17/2022 COMPR EHENS KRISTYN METAB OLIC PANEL albumin/glob ulin ratio 2.2 (calc ) 1.0-2. 5 normal Not Available [address], [address], 03/17/2022 21:44:11 03/03/19 23 03/17/2022 COMPR EHENS KRISTYN METAB OLIC PANEL bilirubin, total 0.6 mg/dL 0.2-1. 2 normal Not Available [address], [address], 03/17/2022 21:44:11 03/03/19 23 03/17/2022 COMPR EHENS KRISTYN METAB OLIC PANEL alkaline phosphatase 89 U/L 37-153 normal Not Available [address], [address], 03/17/2022 21:44:11 03/03/19 23 03/17/2022 COMPR EHENS KRISTYN METAB OLIC PANEL AST 28 U/L 10-35 normal Not Available [address], [address], 03/17/2022 21:44:11 03/03/19 23 03/17/2022 COMPR EHENS KRISTYN METAB OLIC PANEL ALT 31 U/L 6-29 high Not Available [address], [address], 03/17/2022 21:44:11 03/13/19 23 03/31/2022 5 HIAA, 24 HOUR URINE , W/O CREAT ININE total volume 2500 mL Not Available [address], [address], 03/31/2022 16:00:55 03/13/19 23 03/31/2022 5 HIAA, [...] for clini fortunato purpo ses. Not Available [employer] [place] [address] [place], [address], 03/31/2022 16:00:55 06/06/19 23 06/07/2022 COMPR EHENS KRISTYN METAB OLIC PANEL glucose 89 mg/dL 65-99 normal Fasti ng refer ence inter kathy Not Available [employer] [place] [address] [place], [address], 06/07/2022 16:08:33 06/06/19 23 06/07/2022 COMPR EHENS KRISTYN METAB OLIC PANEL urea nitrogen (BUN) 20 mg/dL 7-25 normal Not Available [facility] [address], [address], 06/07/2022 16:08:33 06/06/19 23 06/07/2022 COMPR EHENS KRISTYN METAB OLIC PANEL creatinine 0.78 mg/dL 0.50-1 .05 normal Not Available [facility] [employer] [facility] [address], [address], 06/07/2022 16:08:33 06/06/19 23 06/07/2022 COMPR EHENS [...] kdoqi /gfr% 5Fcal culat or Not Available [address], [address], 06/07/2022 16:08:33 06/06/19 23 06/07/2022 COMPR EHENS KRISTYN METAB OLIC PANEL BUN/creatini ne ratio NOT APPLIC ABLE (calc ) 6-22 Not Available [address], [address], 06/07/2022 16:08:33 06/06/19 23 06/07/2022 COMPR EHENS KRISTYN METAB OLIC PANEL sodium 141 mmol/ L 135-14 6 normal Not Available [address], [address], 06/07/2022 16:08:33 06/06/19 23 06/07/2022 COMPR EHENS KRISTYN METAB OLIC PANEL potassium 3.7 mmol/ L 3.5-5. 3 normal Not Available [address], [address], 06/07/2022 16:08:33 06/06/19 23 06/07/2022 COMPR EHENS KRISTYN METAB OLIC PANEL chloride 102 mmol/ L 98-110 normal Not Available [address], [address], 06/07/2022 16:08:33 06/06/19 23 06/07/2022 COMPR EHENS KRISTYN METAB OLIC PANEL carbon dioxide 33 mmol/ L 20-32 high Not Available [address], [address], 06/07/2022 16:08:33 06/06/19 23 06/07/2022 COMPR EHENS KRISTYN METAB OLIC PANEL calcium 9.2 mg/dL 8.6-10 .4 normal Not Available [address], [address], 06/07/2022 16:08:33 06/06/19 23 06/07/2022 COMPR EHENS KRISTYN METAB OLIC PANEL protein, total 6.1 g/dL 6.1-8. 1 normal Not Available [address], [address], 06/07/2022 16:08:33 06/06/19 23 06/07/2022 COMPR EHENS KRISTYN METAB OLIC PANEL albumin 4.1 g/dL 3.6-5. 1 normal Not Available [address], [address], 06/07/2022 16:08:33 06/06/19 23 06/07/2022 COMPR EHENS KRISTYN METAB OLIC PANEL globulin 2.0 g/dL_ (calc ) 1.9-3. 7 normal Not Available [address], [address], 06/07/2022 16:08:33 06/06/19 23 06/07/2022 COMPR EHENS KRISTYN METAB OLIC PANEL albumin/glob ulin ratio 2.1 (calc ) 1.0-2. 5 normal Not Available [address], [address], 06/07/2022 16:08:33 06/06/19 23 06/07/2022 COMPR EHENS KRISTYN METAB OLIC PANEL bilirubin, total 0.8 mg/dL 0.2-1. 2 normal Not Available [address], [address], 06/07/2022 16:08:33 06/06/19 23 06/07/2022 COMPR EHENS KRISTYN METAB OLIC PANEL alkaline phosphatase 77 U/L 37-153 normal Not Available [facility] [employer] [address], [address], 06/07/2022 16:08:33 06/06/19 23 06/07/2022 COMPR EHENS KRISTYN METAB OLIC PANEL AST 23 U/L 10-35 normal Not Available [facility] [address], [address], 06/07/2022 16:08:33 06/06/19 23 06/07/2022 COMPR EHENS KRISTYN METAB OLIC PANEL ALT 27 U/L 6-29 normal Not Available [employer] [address], [address], 06/07/2022 16:08:33 06/06/19 23 06/07/2022 THYRO ID PEROX IDASE ANTIB ODIES thyroid peroxidase antibodies 1 IU/mL <9 normal Not Available [employer] [address], [address], 06/07/2022 16:08:34 06/06/1906/07/2022 INSUL IN insulin 9.7 uIU/m L normal Refer ence Range < or = 18.4 Risk: Optim al < or = 18.4 Moder ate NA High >18.4 Adult cardi ovasc ular event risk categ ory cut point s (opti mal, moder ate, high) are based on Insul in Refer ence Inter kathy studi es perfo rmed at [facility] in 2021. Not Available [employer] [address], [address], 06/07/2022 16:08:35 06/06/19 23 06/07/2022 T3, FREE T3, free 3.0 pg/mL 2.3-4. 2 normal Not Available [employer] [address], [address], 06/07/2022 16:08:36 06/06/19 23 06/07/2022 TSH+F REE T4 TSH 1.18 mIU/L 0.40-4 .50 normal Not Available [employer] [address], [address], 06/07/2022 16:08:36 06/06/19 23 06/07/2022 TSH+F REE T4 T4, free 1.1 NG/dL 0.8-1. 8 normal Not Available [employer] [facility] [address] [place], [address], 06/07/2022 16:08:36 06/06/19 23 06/07/2022 HEMOG LOBIN [...] Care in Diabe shahnaz(A DA). Not Available [employer] [facility] [address], [place], [address], 06/07/2022 16:08:37 09/09/19 22 09/08/2021 US, thyro id No observ ation record ed. [id number] [facility] [address] [place], [address], 04/06/2022 01:35:44 09/09/19 22 09/08/2021 bone densi ty No observ ation record ed. [id number] [facility] [address] [place], [address], 04/06/2022 01:35:44 09/09/19 22 DEXA, axial skele ton [facility] [address] [facility] [place] [address] Consuelo angelo Name: PETE LLANOS Renato A Access ion #: [id number] Sex: F : 1959 6 7 [...] e of 0.1. Page 1 of 2 [facility] Consuelo angelo Name: PETE LLANOS Renato A Access ion #: [id number] Sex: F : 1959 6 7 [...] MD (CT) (CT) Page 2 of 2 [id number] [facility] [address] [place], [address], 04/06/2022 01:35:44 09/09/19 US, head + neck, soft tissu e [facility] [address] [place] [address] Consuelo angelo Name: PETE LLANOS A Access ion #: [id number] Sex: F : 1959 6 7 [...] r blood flow. Page 1 of 2 [facility] t Name: PETE LLANOS A Access ion #: [id number] Sex: F : 1959 5 [birth year] [...] MD (CT) (CT) Page 2 of 2 [id number] [facility] ([facility]) [address] [place], [address], 04/06/2022 01:35:44 03/31/19 23 03/31/2022 PET-C T, whole body scan No observ ation record ed. [id number] [facility] [address] [place], [address], 04/06/2022 01:35:44 Result Notes None recorded. Problems Name Problem SNOMED Code Status Onset Date Resolution Date Notes Provider Name and Address Organization Details Recorded Time Hypoglycemia 914278947 Active 2021 Not Available [facility] 3 01:34:43 Abnormal cortisol 102913123 Active 2021 Not Available [facility] [facility] 3 01:34:43 Hypothyroidis m 06914635 Active 2021 Not Available [facility] 3 01:34:43 Hyperparathyr oidism 30359539 Active 2021 Not Available [facility] 3 01:34:43 Reactive hypoglycemia 070955 Active 2022 MICHELLE Marino null, [facility] 3 10:41:38 Postmenopausa l osteoporosis 259922688 Active 2022 Kayla Alvarado RMA null, [facility] 3 12:05:10 Problem Notes None recorded. Procedures Surgical History Date Name Laterality Status Provider Name and Address Organization Details Recorded Time repair of urinary bladder completed Not Available [facility] 04/06/2022 01:34:04 Neck completed Not Available [facility] 04/06/2022 01:34:04 dinitrochlorobenzene contact sensitivity test completed Not Available [facility] 04/06/2022 01:34:04 Kidney Stones completed Not Available [facility] 04/06/2022 01:34:04 Hysterectomy completed Not Available [facility] 04/06/2022 01:34:04 Gastric bypass for obesity completed Not Available [facility] 04/06/2022 01:34:04 Carpal tunnel surgery completed Not Available [facility] 04/06/2022 01:34:04 Imaging Results Imaging Date Name Status LastModified by Organiz ation Details LastModified Time 03/31/2022 PET-CT, whole body scan completed [id number] [facility]- [address], [address], 04/06/2022 01:35:44 09/08/2021 US, thyroid completed [id number].98061 30 026 [facility] [address] [place], [address], 04/06/2022 01:35:44 09/08/2021 bone density completed MIGRATION.[id number] 30 026 [facility] [address] [place], [address], 04/06/2022 01:35:44 09/08/2021 DEXA, axial skeleton completed [id number] 026 [facility] (Imaging) [address] [place], [address], 04/06/2022 01:35:44 09/08/2021 US, head + neck, soft tissue completed [id number] 026 [facility] (Imaging) [address] [place], [address], 04/06/2022 01:35:44 Procedure Notes None recorded. Medical Equipment None Reported. Allergies Allergen ID Allergen Name Allergen Category Reaction Reaction Severity Criticality Documentation Date Start Date Code Code System Note Provider Name and Address Organization Details Recorded Time 16113 Levaquin medicatio n Not available Not available Not available 04/06/2022 94456 2 RxNorm Not Available [facility] 3 01:35:37 27528 Demerol medicatio n Not available Not available Not available 04/06/2022 26329 1 RxNorm Not Available [facility] 3 01:35:37 68060 codeine medicatio n Not available Not available Not available 04/06/2022 2670 RxNorm Not Available [facility] 3 01:35:37 Medications Name Sig Start [...] Date Recorded Body mass index (BMI) Body mass index (BMI) Body mass index (BMI) Body height Body height Body height Oxygen saturation Oxygen saturation in Arterial blood by Pulse oximetry Oxygen saturation Oxygen saturation in Arterial blood by Pulse oximetry Oxygen saturation Oxygen saturation in Arterial blood by Pulse oximetry Heart rate Heart rate Heart rate Respiratory rate Body temperature Body temperature Body temperature Body weight Body weight Body weight Systolic blood pressure Diastolic blood pressure Systolic blood pressure Diastolic blood pressure Systolic blood pressure Diastolic blood pressure Provider Name and Address Organization Details Last Updated DateTime 3 32.9 kg/m2 32.8 kg/m2 33.9 kg/m2 160.02 cm 160.02 cm 160.02 cm 98 % 98 % 99 % 99 % 98 % 98 % 66 /min 65 /min 69 /min 12 /min 97.7 [degF] 97.8 [degF] 97.5 [degF] 17514.4 6 g 33364.5 9 g 74026.8 6 g 120 mm[Hg] 75 mm[Hg] 105 mm[Hg] 70 mm[Hg] 132 mm[Hg] 78 mm[Hg] Not Available [facility] 3 01:34:09 Date Recorded Body height Body mass index (BMI) Body weight Body temperature Heart rate Systolic blood pressure Diastolic blood pressure Provider Name and Address Organization Details Last Updated DateTime 3 160.02 cm 34 kg/m2 45624.7 4 g 97.6 [degF] 68 /min 149 mm[Hg] 67 mm[Hg] Sujatha Hughes CMA [place] [facility] [place] [employer] 3 12:00:46 Social History Question Answer Notes LastModified by [employer] Details LastModified Time Tobacco Smoking Status Never Smoker Not Available [facility] 04/06/2022 01:33:24 What Is Your Level Of Alcohol Consumption? None [id number] 026 Information not available 04/06/2022 What Is Your Level Of Caffeine Consumption? None [id number].[id number] 026 Information not available 04/06/2022 What Type Of Diet Are You Following? REGULAR [id number].[id number] 026 Information not available 04/06/2022 What Is Your Relationship Status? [id number] 026 Information not available 04/06/2022 Sex: Female Functional Status Question Answer Note LastModified by [employer] Details LastModified Time What is your exercise level? Occasional [id number] 26 Information not available 04/06/2022 Mental Status None recorded. Family History Relationship Description Onset Age of this Age Resolved Age Notes LastModified by Organization Details LastModified Time Sister Diabetes mellitus [id number] Not available 04/06/2022 01:34:05 Medical History Condition Response LUNG DISEASE/DISORDER Y HIGH CHOLESTEROL / HYPERLIPIDEMIA Y EYE PROBLEMS Y SURGERY HAVE YOU BEEN HOSPITALIZED OR SEEN IN TH E ER IN THE PAST YEAR ? Y STROKE/TIA Y GERD/NAUSEA Y EXCESSIVE PERSPIRATION Y ARTHRITIS ALZHEIMER'S DISEASE Y HEADACHES/MIGRAINES Y DIZZINESS Y KIDNEY DISEASE LIVER DISEASE HYPERTENSION Y Gynecological HistoryNo gynecological history recorded. Obstetrics History GPAL:G 0 P 0 0 0 0 Past Encounters Encounter ID Performer Location Encounter Start Date Encounter Closed Date Diagnosis/Indication Diagnosis SNOMED-CT Code Diagnosis ICD10 Code Diagnosis Note [id number] [facility] [address] [place] [address] 09/02/2021 00:00:00 09/02/2021 12:15:50 [id number] [facility] [address] [place] [address] 10/14/2021 00:00:00 10/14/2021 21:36:04 [id number] [facility] [address] [place] [address] 02/27/2022 00:00:00 02/27/2022 12:47:24 [id number] Keesha Aragon MD [facility] [address] [place] [address] 07/31/2022 11:14:26 07/31/2022 12:37:01 Reactive hypoglycemia 843767 E16.1 Patient now taking acarbose per [facility] endocrinol ogy and her hypoglycem ia appears [...] of thyroid and osteoporos is or with [facility] endocrinol ogy as they have direct access [...] Name 07/31/2022 1 [place] Tiffanie Ruiz [id number] Tiffanie Ruiz 07/31/2022 2 [place]: ([place] [id number] Tk Ruiz [id number] Tiffanie Ruiz Notes Date Note Type [...] and VIP/glucagon in range. We referred to [facility] for further insight. she is taking acarbose [...] mg/dLCr normalLFT normal Keesha Aragon MD [address] [facility], [facility] [address], [place], [address], [place] [facility] 07/31/2022 15:32:40 OBGyn Episode No OBEpisode recorded.
--- OUTSIDE RECORDS SUMMARY | 2024-03-11 04:28 | XMS_ITS | Encounter Summary ---
Author Organization [facility] Healthcare Address [address] [place] [address] Care Team Providers Care Assistant District Attorney Name Role Phone Jona Bravo MD Primary Care Provider + Desire Sams RN Unavailable Un available Pooja [place] LCSW Unavailable [phone] Roscoe Mccollum MD Unavailable [phone] Encounter Details Date Type Department Care Team (Late st Contact Info) Description 09/17/2020 Telephone [facility] Imaging [facility] [address] [place] [id number] Kim Gagnon, RT Social History Tobacco Use [...] on file Legal Sex Female 12:46 AM 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 Gender Identity Female 04/08/2019 6:15 AM COOK RELIEF Sexual Orientation Straight 04/08/2019 6: 15 AM COOK RELIEF documented as of this encounter Plan of Treatment Not on file documented as of this encounter Visit Diagnoses Not on filedocumented in this encounter Care Teams Assistant District Attorney Relationship Specialty Start Date End Date Jona Bravo MD [address] [facility] [place] [address] PCP - General 05/05/16 Desire Sams, RN Registered Nurse 04/03/17 Pooja [place], [facility] [address] [facility] Mailstop [phone] [place] [address] [facility] Outpatient Inventory Planner 10/12/21 11/09/21 Roscoe Mccollum MD 2 [facility] [address] [address] Anesthesiologist Pain Management 12/21/21 documented as of this encounter
--- OUTSIDE RECORDS SUMMARY | 2024-03-11 04:28 | XMS_ITS | Encounter Summary ---
Author Organization [facility] Address [address] [place] [address] Phone Care Team Providers Care Crop Specialist Name Role Phone Jona Bravo MD Primary Care Provider Reason for Visit * Reason Comments Med Refill Encounter Details Date Type Department Care Team (Late st Contact Info) Description 11/06/2021 Refill [facility] [address] [place] [address] Janeth Betts PA [address] [place] [id number] Social History Tobacco Use Types Packs/Day Years [...] Description 05/28/2024 1:00 PM CDT Office Visit [facility] [address] [place], [place] [id number] Uche Vela MD [address] [place], [place] [phone] documented as of this encounter Visit Diagnoses Not on filedocumented in this encounter Care Teams Crop Specialist Relationship Specialty Start Date End Date Jona Bravo MD [address] [place] [address] PCP - General Internal Medicine 06/16/19 documented as of this encounter
--- OUTSIDE RECORDS SUMMARY | 2024-03-11 04:29 | XMS_ITS | Clinical Summary ---
Author Organization [facility] Address [address] [facility] [place] [address] Care Team Providers Care Mattress Spring Encaser Name Role Phone Jona Bravo MD Primary Care Provider [phone] Source Comments [facility],non-owned Affiliates and Associated Physician Practices is amultiple site organization consisting of ambulatory clinics and hospital sitesin [place], [place], [place] and [place]. This disclosure is being madepursuant to the Care Everywhere program and may not contain all information available regarding this patient. Last updated 17.[facility] Allergies Active Allergy Reactions Criticality Noted Date [...] Units/L by mouth once daily Active Biotin 05230 MCG TBDP Take 1 tablet by mouth [...] mouth once daily 04/21/2021 Active nystatin (NYSTOP) 666962 UNIT/GM powder APPLY POWDER TOPICALLY TO AFFECTED [...] 01/15/08: Lap banding by Dr. Claros at [facility] Had a port leak with subsequent revision. 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 Office Visit [facility] [address] [place] [phone] Soham Hutton MD [address] [place] [address] Health Maintenance Due Date Last Done Comments [...] 29 U/L [facility] Comment: Test Performed at: [facility] [address] [address] ??[id number] ARACELY DANIEL MD 06/05/2022 10:4 9 AM CDT 06/05/2022 10:50 AM CDT Ivettehandy Shields [place] PHOTOCOMPOSING MACHINE OPERATOR-REAL ESTATE CLOSING COORDINATOR LAB - [facility]A ZA[facility] ORDERABLES [facility] [address] [place] [address] * ENDOSCOPY, COLON, SCREENING (08/03/2020 9:10 AM [...] Procedure Code(s): ? --- Professional --- ? 14698, Colonoscopy, flexible; with biopsy, single or multiple Diagnosis Code(s): ?--- Professional --- ?Z86.010, Personal history of colonic polyps ?K63.5, Polyp of colon ?K57.30, Diverticulosis of large intestine without ?perforation or abscess without bleeding CPT copyright 2019 [employer]. All rights reserved. The codes documented in this report are preliminary and upon container coordinator review may be revised to meet current compliance requirements. Soham Farley MD 08/03/2020 10:38:53 AM This report has been signed electronically. Note Initiated On: 08/03/2020 9:10 AM Number of Addenda: 0 ? [facility] ? [address] [place] [address] [facility] 08/03/2020 9:10 AM CDT Soham Hutton MD GI PROCEDU RE ORDERABLES [facility] * HEMOGLOBIN A1C (07/23/2008 11:32 AM CDT) Hemoglobin A1c 5.7 3.9 - 6.1 % [facility] Estimated Average Glucose 116.9 mg/dl [facility] BLOOD SPECIMEN / Unknown 07/23/2008 11:32 AM CDT Narrative [facility] - 07/23/2008 9:23 PM CDT [id number] Resulting Agency Comment Performed By [facility] - [facility] ? [address] ? [place] [address] Scott Claros MD LAB - CHEMISTRY O RDERABLES [facility] [address] [place] [address] from Last 3 Months or Most Recently Relevant to Health Maintenance Advance Directives * Full Code (Latest Code Status on File) Date Activated Date Inactivated Comments 06/19/2018 5:17 PM 06/20/2018 8:12 PM * Full Code Date Activated Date Inactivated Comments 12/24/2017 11:20 AM 12/25/2017 12:40 PM Care Teams Mattress Spring Encaser Relationship Specialty Start Date End Date Jona Bravo MD [address] [place] [address] PCP - General Internal Medicine 10/16/22
--- OUTSIDE RECORDS SUMMARY | 2024-03-11 04:29 | XMS_ITS | Clinical Summary ---
Author Organization [facility] Address [address] [place] [address] Phone Care Team Providers Care Banquet Lead Name Role Phone Jona Bravo MD Primary Care Provider [phone] Active Problems Problem Noted Date Diagnosed Date [...] age to complete this topic Care Teams Banquet Lead Relationship Specialty Start Date End Date Jona Bravo MD [address] [place] [address] PCP - General 05/04/17
--- OUTSIDE RECORDS SUMMARY | 2024-03-11 04:29 | XMS_ITS | Encounter Summary ---
Author Organization [facility] Address [address] [place] [address] Care Team Providers Care Tool Rental Technician Name Role Phone Jona Bravo MD Primary Care Provider Reason for Visit * Reason Comments Question Encounter Details Date Type Department Care Team ([facility] st Contact Info) Description 04/23/2023 Telephone [facility] Primary Care [address] [place] [address] Jona Bravo MD [address] [facility] [address] [place] [address] Question Social History Tobacco Use [...] often do you attend chur ch or restorationist services? 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 Topic: Patient or Caregiver Communication Request >> Apr 23, 2023 1:32 PM Adelina Harper wrote: Patient or Caregiver requesting advice Caller: Tiffanie Ruiz Patient/Caregiver Callback Number: [phone] (home) Call Notes: Patient is calling she is needing an orthopedic referral and her referral for Eric Martinez MD is still pending and needs to be faxed to this number. Please advise. Dr Martinez FAX# [phone] documented in this encounter Plan of Treatment Upcoming Encounters Date Type Department Care Team (Late st Contact Info) Description 04/23/2024 1:20 PM CDT Office Visit [facility] [place] [facility] [address] [place] [phone] Jona Bravo MD [address] [place] [address] [place] [address] 08/25/2024 10:40 AM CDT Office Visit [facility] Primary Care [address] [place] [address] Jona Bravo MD [address] [place] [address] [place] [address] documented as of this encounter Visit Diagnoses Not on filedocumented in this encounter Care Teams Tool Rental Technician Relationship Specialty Start Date End Date Jona Bravo MD PCP - General Internal Medicine 11/25/15 documented as of this encounter
--- OUTSIDE RECORDS SUMMARY | 2024-03-11 04:29 | XMS_ITS | Patient Health Summary ---
Author Organization [facility] Address [address] [place] [address] Care Team Providers Care Senior Java Software Developer Name Role Phone Jona Bravo MD Primary Care Provider Note from [facility],non-owned Affiliates and Associated Physician Practices is amultiple site organization consisting of ambulatory clinics and hospital sitesin [place], [place], [place] and [place]. This disclosure is being madepursuant to the Care Everywhere program and may not contain all information available regarding this patient. Last updated 17.[facility] Allergies * Adhesive Sensitivity(Other) * Codeine(Urticaria) * [...] Units/L by mouth once daily * Biotin 94427 MCG TBDP Take 1 tablet by mouth [...] by mouth once daily * nystatin (NYSTOP) 849655 UNIT/GM powder(Started 08/12/2021) APPLY POWDER TOPICALLY TO [...] (left upper quadrant), Abdominal wall bulge * AK EGD FLEX TRANSORAL W SUBMUCOSAL INJ(Performed 10/16/2022) * GLUCOSE - POINT OF CARE(Performed 10/16/2022) * EGD(Performed 10/16/2022) * [place] ED EGD FLEX TRANSORAL DX(Performed 08/21/2022) * [...] for colon cancer, H/O gastric bypass * [place] ED EGD FLEX TRANSORAL DX(Performed 08/03/2020) Performed [...] (STL)(Performed 09/19/2019) Performed for Diagnosis unknown * [place] ED EGD FLEX TRANSORAL DX(Performed 09/19/2019) * [...] DO on 07/18/2023 2:08 PM Steph Mar MILLER ROD MILL-EMBEDDED SOFTWARE DEVELOPER FLUOROSCOPY ORDERABLES * CT ABDOMEN AND PELVIS [...] DATE/TIME OF EXAM: ??06/29/2023 12:15 PM, LOCATION ??[facility] INDICATION: R10.12: Left upper quadrant pain. R19.00: [...] DATE/TIME OF EXAM: 06/29/2023 12:15 PM, LOCATION [facility] INDICATION: R10.12: Left upper quadrant pain. R19.00: [...] - 106 mg/dL 10/16/2022 8:20 AM CDT [facility] Specimen Type Cap Fingerstick 2022 8:20 AM CDT [facility] Blood BLOOD SPECIMEN / Unknown 10/16/2022 8:18 AM CDT 10/16/2022 8:20 AM CDT Jasson Carrasco MD LAB - POINT OF CARE ORDERABLES [facility] [address] [place] [address] * EGD (10/16/2022 8:05 AM [...] Procedure Code(s): ? --- Professional --- ? 25047, Esophagogastroduod enoscopy, flexible, transoral; with directed ? submucosal injection(s), any substance ? --- Technical --- ? 87354, Esophagogastroduod enoscopy, flexible, transoral; with directed ? [...] of digestive ? system CPT copyright 2020 [employer]. All rights reserved. The codes documented in this report are preliminary and upon remote coders review may be revised to meet current compliance requirements. _ Jasson Carrasco MD 10/16/2022 9:00:45 AM Number of Addenda: 0 Note Initiated On: 10/16/2022 8:05 AM [facility] 10/16/2022 8:05 AM CDT Narrative Procedure Note Jasson Carrasco MD - 10/16/2022 9:01 AM CDT PLAN: 1. Sclerotherapy diet 2. PPI daily Jasson Carrasco MD GI PROCEDURE ORDERAB LES [facility] [place] [address] * EGD (08/21/2022 7:16 AM CDT) Report [...] Procedure Code(s): ? --- Professional --- ? 18790, Esophagogastroduod enoscopy, flexible, transoral; with directed ? submucosal injection(s), any substance ? --- Technical --- ? 46686, Esophagogastroduod enoscopy, flexible, transoral; with directed ? [...] of digestive ? system CPT copyright 2020 [employer]. All rights reserved. The codes documented in this report are preliminary and upon remote coders review may be revised to meet current compliance requirements. _ Jasson Carrasco MD 08/21/2022 8:35:24 AM Number of Addenda: 0 Note Initiated On: 08/21/2022 7:16 AM [facility] 08/21/2022 7:16 AM CDT Narrative Procedure Note Jasson Carrasco MD - 08/21/2022 8:35 AM CDT PLAN: 1. Sclerotherapy diet for 4 weeks 2. Nurse to call in 4-6 weeks to assess for improvement in BG regulation Jasson Carrasco MD GI PROCEDURE ORDERAB LES Performing Organization Address City/[facility]/ZIP Co de Phone Number [facility] [place] [address] * (ABNORMAL) VITAMIN K1 (06/05/2022 10:49 AM CDT) Only the most recent of7 resultswithin the time period is included. Vitamin K 86(L) 130 - 1500 pg/mL [facility] Comment: This test was developed and its analytical performance characteristics have been determined by [employer]. It has not been cleared or approved by the FDA. This assay has been validated pursuant to the CLIA regulations and is used for clinical purposes. Test Performed at: [facility] [address] ??[phone] DOMINIQUE KOWALSKI MD 06/05/2022 10:4 9 AM CDT 06/05/2022 10:50 AM CDT Ivette Monteiro MILLER ROD MILL-EMBEDDED SOFTWARE DEVELOPER LAB - [place] ZAID ORDERABLES [facility] [address] [place] [address] * (ABNORMAL) ZINC BLOOD (06/05/2022 10:49 AM CDT) Only the most recent of8 resultswithin the time period is included. Zinc 57(L) 60 - 130 mcg/dL [facility] Comment: This test was developed and its analytical performance characteristics have been determined by [employer]. It has not been cleared or approved by the FDA. This assay has been validated pursuant to the CLIA regulations and is used for clinical purposes. REPORT COMMENT: FASTING:YES Test Performed at: [facility] [address] ??[address] SANDRA FOX 06/05/2022 10:4 9 AM CDT 06/05/2022 10:50 AM CDT Ivette Monteiro [facility] - [facility] ORDERABLES Performing Organization Address [facility] de Phone Number [address] [address] * VITAMIN A (06/05/2022 10:49 AM CDT) Only the most recent of5 resultswithin the time period is included. Pathologist [facility] Vitamin A 47 38 - 98 mcg/dL [facility] Comment: Clin Chem Vol. 34.No.8. [id number]. 1998 Vitamin supplementation within 24 hours prior to blood draw may affect the accuracy of results. ?? This test was developed and its analytical performance characteristics have been determined by [employer]. It has not been cleared or approved by the FDA. This assay has been validated pursuant to the CLIA regulations and is used for clinical purposes. Test Performed at: [facility] [address] ??[phone] DOMINIQUE KOWALSKI MD 06/05/2022 10:4 9 AM CDT 06/05/2022 10:50 AM CDT Ivette Monteiro [facility] ORDERABLES Performing Organization Address [facility] de Phone Number [facility] [phone] [place] [address] * VITAMIN E (06/05/2022 10:49 AM CDT) [...] Comment: See Note 1 Test Performed at: [facility] [address] ??[phone] DOMINIQUE KOWALSKI MD 06/05/2022 10:4 9 AM CDT 06/05/2022 10:50 AM CDT Ivette Alyson Monteiro MILLER ROD MILL-EMBEDDED SOFTWARE DEVELOPER LAB - [place] [facility] ORDERABLES Performing Organization Address [facility] de Phone Number [address] [address] * VITAMIN B1 (06/05/2022 10:49 AM CDT) Only the most recent of10 resultswithin the time period is included. [facility] Vitamin B1 Whole Blood 161 78 - 185 nmol/L [facility] Comment: Vitamin supplementation within 24 hours prior to blood draw may affect the accuracy of results. This test was developed and its analytical performance characteristics have been determined by [employer]. It has not been cleared or approved by the FDA. This assay has been validated pursuant to the CLIA regulations and is used for clinical purposes. Test Performed at: [facility] [address] ??[phone] DOMINIQUE KOWALSKI MD 06/05/2022 10:4 9 AM CDT 06/05/2022 10:50 AM CDT Ivette Alyson Monteiro MILLER ROD MILL-EMBEDDED SOFTWARE DEVELOPER LAB - [place] ZAID ORDERABLES Performing Organization Address [facility] de Phone Number [address] [address] * PTH INTACT (06/05/2022 10:49 AM CDT) [...] or Low Normal ?High Test Performed at: [facility] [address] [place] ??[address] ARACELY DANIEL MD 06/05/2022 10:4 9 AM CDT 06/05/2022 10:50 AM CDT Ivette Shields Cayetano MILLER ROD MILL-EMBEDDED SOFTWARE DEVELOPER LAB - [facility] ORDERABLES Performing Organization Address City/State/[facility] Co de Phone Number [facility] [address] [place] [address] * COPPER BLOOD (06/05/2022 10:49 AM CDT) Only the most recent of5 resultswithin the time period is included. Pathologist [facility] Copper 84 70 - 175 mcg/dL TAYA Comment: This test was developed and its analytical performance characteristics have been determined by [facility]. It has not been cleared or approved by the FDA. This assay has been validated pursuant to the CLIA regulations and is used for clinical purposes. Test Performed at: [facility] [address] ??[phone] SANDRA FOX 06/05/2022 10:4 9 AM CDT 06/05/2022 10:50 AM CDT Ivette Shields Cayetano MILLER ROD MILL-EMBEDDED SOFTWARE DEVELOPER LAB - [place] ZAID ORDERABLES Performing Organization Address [facility] de Phone Number [facility] [address] [place] [address] * FOLATE RBC (06/05/2022 10:49 AM CDT) Only the most recent of8 resultswithin the time period is included. Folate RBC 616 >280 ng/mL RBC [facility] Comment: Test Performed at: [facility] ??[phone] ARACELY DANIEL MD 06/05/2022 10:4 9 AM CDT 06/05/2022 10:50 AM CDT Ivette Shields Cayetano MILLER ROD MILL-[facility] LAB - [place] ZAID ORDERABLES Performing Organization Address [facility] de Phone Number [facility] [address] [place] [address] * (ABNORMAL) VITAMIN D 25-HYDROXY (06/05/2022 10:49 [...] D, (D2,D3), LC/MS/MS is recommended: order code 04642 (patients >2yrs). See Note 2 Note 1 This test was developed and its analytical performance characteristics have been determined by [employer]. It has not been cleared or approved by the FDA. This assay has been validated pursuant to the CLIA regulations and is used for clinical purposes. Note 2 For additional information, please refer to http://education.[employer]/faq/DBW925 (This link is being provided for informational/ educational purposes only.) Test Performed at: [facility] [address] [place] ??[phone] ARACELY DANIEL MD 06/05/2022 10:4 9 AM CDT 06/05/2022 10:50 AM CDT Ivette Shields Cayetano MILLER ROD MILL-EMBEDDED SOFTWARE DEVELOPER LAB - [place] ZAID ORDERABLES [facility] [address] [place] [address] * (ABNORMAL) CBC W/O DIFFERENTIAL (06/05/2022 10:49 [...] 12.5 fL [facility] Comment: Test Performed at: [facility] [address] [place] [address] ??[phone] ARACELY DANIEL MD 06/05/2022 10:4 9 AM CDT 06/05/2022 10:50 AM CDT Ivette Shields Cayetano MILLER ROD MILL-EMBEDDED SOFTWARE DEVELOPER LAB - HEM ATOLOGY ORDERABLES [facility] [address] [place] [address] * COMPREHENSIVE METABOLIC PANEL (06/05/2022 10:49 AM [...] 29 U/L [facility] Comment: Test Performed at: [facility] [place] [address] [address] [place] ??[phone] ARACELY DANIEL MD 06/05/2022 10:4 9 AM CDT 06/05/2022 10:50 AM CDT Ivette Shields Cayetano SHELLN-EMBEDDED SOFTWARE DEVELOPER LAB - [place] [address] * PREALBUMIN (06/05/2022 10:49 AM CDT) Only the most recent of4 resultswithin the time period is included. Prealbumin 20 17 - 34 mg/dL [facility] Comment: Test Performed at: [address] [facility] [place] ??[address] ARACELY DANIEL MD 06/05/2022 10:4 9 AM CDT 06/05/2022 10:50 AM CDT Ivette Shields Cayetano MILLER ROD MILL-EMBEDDED SOFTWARE DEVELOPER LAB - [place] ZAID ORDERABLES Performing Organization Address [facility] [place] [address] * MAGNESIUM BLOOD (06/05/2022 10:49 AM CDT) Only the most recent of8 resultswithin the time period is included. Magnesium 2.2 1.5 - 2.5 mg/dL [facility] Comment: Test Performed at: [address] [place] ??[address] ARACELY DANIEL MD 06/05/2022 10:4 9 AM CDT 06/05/2022 10:50 AM CDT Ivette Alysonrenato Monteiro APRN-EMBEDDED SOFTWARE DEVELOPER LAB - [place] ZAID ORDERABLES Performing Organization Address [facility] de Phone Number [place] [phone] * IRON BLOOD (06/05/2022 10:49 AM CDT) Only the most recent of5 resultswithin the time period is included. Iron 105 45 - 160 mcg/dL [facility] Comment: Test Performed at: [address] [facility] [place] ??[address] ARACELY DANIEL MD 06/05/2022 10:4 9 AM CDT 06/05/2022 10:50 AM CDT Ivette Monteiro MILLER ROD MILL-EMBEDDED SOFTWARE DEVELOPER LAB - [place] ZAID ORDERABLES Performing Organization Address [facility] de Phone Number [place] [phone] * VITAMIN B12 (06/05/2022 10:49 AM CDT) Only the most recent of9 resultswithin the time period is included. Pathologist [facility] Vitamin B12 547 200 - 1100 pg/mL [facility] Comment: Test Performed at: [facility] [address] [place], [place] ??[phone] ARACELY DANIEL MD 06/05/2022 10:4 9 AM CDT 06/05/2022 10:50 AM CDT Ivette Shields Cayetano SHELLN-EMBEDDED SOFTWARE DEVELOPER LAB - [place] ZAID ORDERABLES Performing Organization Address [facility] [place] [address] * (ABNORMAL) FERRITIN (06/05/2022 10:49 AM CDT) Only the most recent of8 resultswithin the time period is included. Pathologist [facility] Ferritin 7(L) 16 - 288 ng/mL [facility] Comment: Test Performed at: [facility] [address] [place], [place] ??[address] ARACELY DANIEL MD 06/05/2022 10:4 9 AM CDT 06/05/2022 10:50 AM CDT Ivette Monteiro APRN-EMBEDDED SOFTWARE DEVELOPER LAB - [place] ZAID ORDERABLES Performing Organization Address [facility] de Phone Number [place] [phone] * IRON + TIBC PANEL (08/24/2021 3:15 PM CDT) Only the most recent of2 resultswithin the time period is included. Iron 116 45 - 160 mcg/dL [facility] TIBC 440 250 - 450 mcg/dL (calc) [facility] % Saturation 26 16 - 45 % (calc) [facility] Comment: Test Performed at: [facility] [address] [place], [place] ??[phone] TANESHA THOMAS DO,MPH Blood BLOOD SPECIMEN / Unknown 08/24/2021 3:15 PM CDT 08/24/2021 3:16 PM CDT Ivette Alyson Cayetano MILLER ROD MILL-EMBEDDED SOFTWARE DEVELOPER LAB - [place] ZAID ORDERABLES [facility] [address] [place] [address] * PATHOLOGY TISSUE (08/03/2020 10:12 AM CDT) Only the most recent of2 resultswithin the time period is included. Case Report Surgical Pathology Report ? Case: [id number] ? Authorizing Provider: ??Soham Farley MD ? Collected: ? 08/03/2020 10:12 AM ? Ordering Location: ? [facility] ?Received: ?08/03/2020 11:31 AM ? Pathologist: ? Vannessa Mendoza MD ? Specimen: ?Colon, hepatic flexure polyp ? [facility]2020 [facility] Final Diagnosis Large intestine, hepatic flexure polyp, biopsy (A): - Tubular adenoma 08/04/2020 2:54 PM [facility] Microscopic Description and Comment Microscopic examination substantiates the final diagnosis. 08/04/2020 2:54 PM [facility] Clinical History The patient is a 60-year-old woman who presents for surveillance colonoscopy (personal history of adenomatous polyps). Operative procedure/findings: Colonoscopy - 3 mm hepatic flexure polyp, resected and retrieved. 08/04/2020 2:54 PM [facility] Gross Description The requisition and specimen(s) are identified with the patient's name, Tiffanie Ruiz. Received in formalin, specimen A is a light-baptiste mucosal tissue fragment, 0.6 x 0.3 x 0.2 cm. Entirely submitted in cassette A1. LJ 08/04/2020 2:54 PM [facility] Disclaimer The performance characteristics of all immunohistochemical and indirect immunofluorescence stains (if any) cited in this report were determined by the Histopathology Laboratory of [facility]. Some of these tests were [...] the attending (teaching) pathologist. 08/04/2020 2:54 PM [facility] Embedded Images 08/04/2020 2:54 PM [facility] Biopsy, NOS COLON PART / Unknown 08/03/2020 10:12 AM CDT 08/03/2020 11:31 AM CDT Comment:Pre-op diagnosis: Screen for colon cancer [Z12.11] Soham Hutton MD LAB - PATH OLOGY/CYTOLOGY ORDERABLES Performing Organization Address [facility]/State/ZIP Co de Phone Number [facility] [address] [place] [address], [facility] [phone] * ENDOSCOPY, COLON, SCREENING (08/03/2020 9:10 AM [...] Procedure Code(s): ? --- Professional --- ? 97677, Colonoscopy, flexible; with biopsy, single or multiple Diagnosis Code(s): ?--- Professional --- ?Z86.010, Personal history of colonic polyps ?K63.5, Polyp of colon ?K57.30, Diverticulosis of large intestine without ?perforation or abscess without bleeding CPT copyright 2019 [employer]. All rights reserved. The codes documented in this report are preliminary and upon remote coders review may be revised to meet current compliance requirements. Soham Farley MD 08/03/2020 10:38:53 AM This report has been signed electronically. Note Initiated On: 08/03/2020 9:10 AM Number of Addenda: 0 ? [facility] ? [address] [place], [place] [address] [place] [address] PROVATION 08/03/2020 9:10 AM CDT Soham Hutton MD GI PROCEDU RE ORDERABLES [facility] * EGD (08/03/2020 8:27 AM CDT) [...] stomal ulceration. This was traversed. The ? [id number] limb was characterized by healthy appearing mucosa. [...] Procedure Code(s): ? --- Professional --- ? 78935, Esophagogastroduoden oscopy, flexible, transoral; diagnostic, ? including collection of specimen(s) by brushing or washing, when ? performed (separate procedure) Diagnosis Code(s): ?--- Professional --- ?Z98.0, Intestinal bypass and anastomosis status ?R10.13, Epigastric pain CPT copyright 2019 [employer]. All rights reserved. The codes documented in this report are preliminary and upon remote coders review may be revised to meet current compliance requirements. Soham Farley MD 08/03/2020 10:33:04 AM This report has been signed electronically. Note Initiated On: 08/03/2020 8:27 AM Number of Addenda: 0 ? [facility] ? [address] [place], [place] [id number] [place] [address] PROVATION 08/03/2020 8:27 AM CDT Soham Hutton MD GI PROCEDU RE ORDERABLES [facility] * SELENIUM (10/16/2019 12:14 PM CDT) Only the most recent of2 resultswithin the time period is included. Pathologist [facility] Selenium 139 63 - 160 mcg/L [facility] Comment: This test was developed and its analytical performance characteristics have been determined by [facility]. It has not been cleared or approved by the FDA. This assay has been validated pursuant to the CLIA regulations and is used for clinical purposes. Test Performed at: [facility] [address] [place], [place] ??[phone] KAIT BLACK MD,PHD 10/16/2019 12:1 4 PM CDT 10/16/2019 12:14 PM CDT Ivette Monteiro MILLER ROD MILL-EMBEDDED SOFTWARE DEVELOPER LAB - [place] ZAID ORDERABLES Performing Organization Address [facility] Co de Phone Number [facility] [address] [place] [address] * HELICOBACTER PYLORI UREASE (STL) (09/19/2019 9:02 AM CDT) Only the most recent of2 resultswithin the time period is included. [facility] Helicobacter pylori Urease Initial Negative Negative 09/20/2019 3:43 PM CDT [facility] Helicobacter pylori Urease Final Negative Negative 09/20/2019 3:43 PM CDT [facility] Comment:This is an appended report. These results have been appended to a previously preliminary verified report. Microbiology GASTRIC ANTRAL BIOPSY SPECIMEN / Unknown 09/19/2019 9:02 AM CDT 09/19/2019 9:45 AM CDT Jasson Carrasco MD LAB - MICROBIOLOGY O RDERABLES Performing Organization Address City/[facility]/ZIP Co de Phone Number [facility] [address] [place] [address] * LAB RESULTS ORDER (04/04/2019 7:44 AM ELECTRICAL ENGINEERING TECHNOLOGIST) Narrative 04/04/2019 7:44 AM ELECTRICAL ENGINEERING TECHNOLOGIST Ordered by an unspecified provider. Scanned Document LAB - THERAPEUTIC DR UG MONITORING ORDERABLES * PT-INR (08/27/2018 2:24 PM CDT) [facility] INR 1.1 0.8 - 1.2 [facility] INSURANCE [...] Resulting Agency Comment Lab Testing performed at: [address] ??[facility] [phone] Ivette Monteiro MILLER ROD MILL-EMBEDDED SOFTWARE DEVELOPER LAB - COA GULATION ORDERABLES [facility] INSURANCE BILL [address] [place] [address] * (ABNORMAL) CBC WITH DIFFERENTIAL (07/17/2018 2:54 PM CDT) Only the most recent of9 resultswithin the time period is included. [facility] WBC 6.5 3.4 - 10.8 x10E3/uL [facility] [...] Resulting Agency Comment Lab Testing performed at: [place] [id number] [facility] ??[facility] [phone] Steph Mar APRN-EMBEDDED SOFTWARE DEVELOPER LAB - HEMATO LOGY ORDERABLES [facility] INSURANCE BILL [address] [place] [address] * FL UGI SERIES WO KUB (06/20/2018 [...] - 06/20/2018 6:08 AM CDT Zahira Newell, KERRY-LEAD MECHANICAL ENGINEER ? 06/19/2018 12:29 PM Endotracheal Tube Placement: ? Patient Location: OR. Procedure: intubation (40938). Procedure Section: ?? Sedation: under general anesthesia. [...] - 145 mmol/L 06/20/2018 4:37 AM CDT [facility] Potassium 4.0 3.5 - 5.1 mmol/L 06/20/2018 4:37 AM CDT [facility] Chloride 102 98 - 107 mmol/L 06/20/2018 4:37 AM CDT [facility] CO2 25 23 - 31 mmol/L 06/20/2018 4:37 AM CDT [facility] Calcium 9.6 8.4 - 10.2 mg/dL 06/20/2018 4:37 AM CDT [facility] Anion Gap 11 8 - 16 mmol/L 06/20/2018 4:37 AM CDT [facility] BUN 17 9.8 - 20.1 mg/dL 06/20/2018 4:37 AM CDT [facility] Creatinine 0.78 0.55 - [...] LAB - CHEMISTRY [facility] [address] [place] [address] * GROSS + MICRO EXAM (STL) (06/19/2018 2:00 PM CDT) Case Report Surgical Pathology Report ? Case: [id number] ? Authorizing Provider: ??Jasson Carrasco MD ? [...] in cassette A1. CH/na 06/24/2018 9:09 AM [facility] Microscopic Description Sections show mild [...] without significant fibrosis. 06/24/2018 9:09 AM T [facility] Disclaimer All histochemical and/or immunohistochemical results are interpreted with controls that demonstrate appropriate staining reactions before reporting results. Note on use of immunocytochemistry reagents: This test was developed and its performance characteristic determined by [facility], Department of Laboratory Medicine. It has not been cleared or approved by the U.S. Food and Drug Administration (FDA). The FDA has determined that such clearance or approval is not necessary. The test is used for clinical purpose. It should not be regarded as investigational or for research. This laboratory is certified to perform high complexity testing. 06/24/2018 9:09 AM T [facility] Embedded Images 06/24/2018 9:09 AM T [facility] Pathology/Cytolo gy NEEDLE BIOPSY OF LIVER / Unknown 06/19/2018 2:00 PM CDT 06/19/2018 3:24 PM CDT Jasson Carrasco MD LAB - PATHOLOGY/CYTO LOGY ORDERABLES [facility] [address] [place] [address] * (ABNORMAL) POTASSIUM BLOOD (06/19/2018 9:02 AM CDT) Potassium 3.3(L) 3.5 - 5.1 mmol/L 06/19/2018 9:49 AM CDT [facility] Blood BLOOD SPECIMEN / Unknown Venipuncture / Unknown 06/19/2018 9:02 AM CDT 06/19/2018 9:39 AM CDT Diana Felipe DO LAB - CHEMISTRY GILBERTO COULTER [facility] [address] [place] [address] * NM HEPATOBILIARY W CCK EF (04/09/2018 2:08 PM ELECTRICAL ENGINEERING TECHNOLOGIST) Anatomical Region Laterality Modality Abdomen Nuclear Medicine 04/09/2018 2:09 PM ELECTRICAL ENGINEERING TECHNOLOGIST Impressions 04/09/2018 2:10 PM ELECTRICAL ENGINEERING TECHNOLOGIST 1. Initial phase of nuclear medicine HIDA scan is within normal limits, demonstrating patency of the cystic and common bile ducts. 2. Gallbladder ejection fraction is normal. Reading Radiologist: Awilda Gonzalez MD on 04/09/2018 at 2:10 PM Narrative 04/09/2018 2:10 PM ELECTRICAL ENGINEERING TECHNOLOGIST NM Hepatobiliary Scan (HIDA) Indication: Abdominal pain. [...] 04/09/2018 at 2:10 PM Ivette Shields [employer] MILLER ROD MILL-EMBEDDED SOFTWARE DEVELOPER NM ORDERA BLES * LAB (03/21/2018) Jasson Carrasco MD SCANNING ONLY * US ABDOMEN LIMITED (03/19/2018 10:29 AM ELECTRICAL ENGINEERING TECHNOLOGIST) Anatomical Region Laterality Modality Abdomen Ultrasound 03/19/2018 11:0 9 AM ELECTRICAL ENGINEERING TECHNOLOGIST Impressions 03/19/2018 11:10 AM ELECTRICAL ENGINEERING TECHNOLOGIST Hepatic steatosis otherwise unremarkable. Reading Radiologist: Kathi Maloney MD on 03/19/2018 at 11:10 AM Narrative 03/19/2018 11:10 AM ELECTRICAL ENGINEERING TECHNOLOGIST RIGHT UPPER QUADRANT ULTRASOUND INDICATION:Nausea vomiting abdominal [...] * ENDOTRACHEAL TUBE NOTE (12/25/2017 6:02 AM ELECTRICAL ENGINEERING TECHNOLOGIST) Narrative Diana Felipe, DO - 12/25/2017 6:02 AM ELECTRICAL ENGINEERING TECHNOLOGIST Zahira Newell, MILLER ROD MILL-LEAD MECHANICAL ENGINEER ? 12/24/2017 ??9:09 AM Endotracheal Tube Placement: ? Patient Location: OR. Procedure: intubation ([id number]). Procedure Section: ?? Sedation: under general anesthesia. [...] RDERABLES * EKG 12-LEAD (12/24/2017 8:20 AM ELECTRICAL ENGINEERING TECHNOLOGIST) Only the most recent of2 resultswithin the time period is included. Ventricular Rate 71 BPM [facility] Atrial Rate 78 BPM [facility] QRS Duration ms 74 ms [facility] Q-T Interval ms 378 ms [facility] QTC Calculation (Bezet) 410 ms [facility] Calculated P [place] 0 degrees [facility] Calculated R [place] 15 degrees [facility] Calculated T [place] 11 degrees [facility] Interpretation EKG Sinus rhythm Abnormal ECG When compared with ECG of 29-NOV-2015 12:51, No significant change was found Confirmed by PENELOPE CLARK MD ([id number]) on 12/24/2017 3:17:11 PM DP MUSE 12/24/2017 8:20 AM ELECTRICAL ENGINEERING TECHNOLOGIST 12/24/2017 3:17 PM ELECTRICAL ENGINEERING TECHNOLOGIST Diana Felipe DO ECG ORDERABLES DP MUSE [...] This procedure was performed using water-soluble contrast. Head Of Stock film shows a laparoscopic gastroesophageal band in [...] This procedure was performed using water-soluble contrast. Head Of Stock film shows a laparoscopic gastroesophageal band in [...] on 09/25/2017 at 12:07 PM Steph Mar MILLER ROD MILL-EMBEDDED SOFTWARE DEVELOPER FLUOROSCOPY ORDERABLES * FL LAP BAND ADJUST VIA PORT (03/30/2016 10:50 AM ELECTRICAL ENGINEERING TECHNOLOGIST) Only the most recent of20 resultswithin the time period is included. Anatomical Region Laterality Modality Radiographic Caroline ging 03/30/2016 11:3 0 AM ELECTRICAL ENGINEERING TECHNOLOGIST Narrative 03/30/2016 11:31 AM ELECTRICAL ENGINEERING TECHNOLOGIST FLUOROSCOPY: Less than 1 hour ??of fluoroscopy [...] ORDERABL ES * EGD (02/09/2016 9:45 AM ELECTRICAL ENGINEERING TECHNOLOGIST) Narrative [facility] - 02/09/2016 9:45 AM ELECTRICAL ENGINEERING TECHNOLOGIST Jona Dumont MD ? 02/09/2016 ??9:45 AM [facility] Operative Report OPERATIVE REPORT PATIENT:Tiffanie Ruiz MR#: ADMIT DATE: 02/09/2016 ??8:24 AM ACCT#: DATE OF SURGERY: 02/09/2016 : 1960 PHYSICIAN: Jona Dumont MD 56 yrs Body mass index is 44.29 kg/(m^2). PREOPERATIVE DIAGNOSES: dysphagia POSTOPERATIVE DIAGNOSES: SAME Hiatal hernia Surgeon: Jona Dumont MD ALUMINIZER: none PROCEDURES PERFORMED: Esophagogastroduodenoscopy ANESTHESIA: MAC by [...] GI PROCEDURE ORDERAB LES Performing Organization Address [facility] de Phone Number [facility] [place] [address] * CARDIAC EKG ORDER (11/30/2015 9:57 PM CDT) Narrative 11/30/2015 9:57 PM CDT Ordered by an unspecified provider. Scanned Document CARDIAC SERVICES ORD ERABLES * (ABNORMAL) URINALYSIS MICROSCOPIC ONLY W/REFLEX CULTURE (11/29/2015 6:03 PM CDT) Epithelial Cell UA 5-10(A) 0-2, 2-5 # /hpf 11/29/2015 6:59 PM CDT [facility] Hyaline Casts 2-5(A) 0 - 2 # /lpf 11/29/2015 6:59 PM CDT [facility] Urine URINE SPECIMEN OBTAINED BY CLEAN CATCH PROCEDURE / Unknown 11/29/2015 6:03 PM CDT 11/29/2015 6:06 PM CDT Laura Lakhani MD LAB - URINALYSIS ORD ERABLES Performing Organization Address [facility] Co de Phone Number [facility] [address] [place] [address] * (ABNORMAL) URINALYSIS ROUTINE W/REFLEX TO CULTURE (11/29/2015 6:03 PM CDT) Color UA Yellow Straw, Yellow, Dark Yellow 11/29/2015 6:21 PM CDT [facility] Clarity UA Cloudy 11/29/2015 6:21 PM CDT [facility] Specific [place] UA 1.019 1.005 - 1.030 11/29/2015 6:21 PM CDT [facility] pH UA 5.0 5.0 - 8.0 pH 11/29/2015 6:21 PM CDT [facility] Protein UA Negative Negative 11/29/2015 6:21 PM CDT [facility] Blood UA Negative Negative 11/29/2015 6:21 PM T [facility] Leukocyte UA 2+(A) Negative 11/29/2015 6:21 PM CDT [facility] Nitrite UA Negative Negative 11/29/2015 6:21 PM CDT [facility] Glucose UA Negative Negative 11/29/2015 6:21 PM T [facility] Ketone UA 2+(A) Negative 11/29/2015 6:21 PM CDT [facility] Bilirubin UA Negative Negative 11/29/2015 6:21 PM CDT [facility] Urobilinogen UA 0.2 0.1 - 1.0 EU/dL 11/29/2015 6:21 PM T [facility] WBC UA Auto 10-20(A) 0-2, 2-5 # /hpf 11/29/2015 6:21 PM T [facility] RBC UA Auto 2-5 0-2, 2-5 # /hpf 11/29/2015 6:21 PM T [facility] Bacteria UA Auto 1+(A) None seen 11/29/19 16 6:21 PM [facility] Hyaline Casts UA Auto Reflex to manual(A) 0 - 2 #/lpf 11/29/2015 6:21 PM [facility] Reflex Status Culture to follow 11/29/2015 6:21 PM [facility] Urine URINE SPECIMEN OBTAINED BY CLEAN CATCH PROCEDURE / Unknown 11/29/2015 6:03 PM CDT 11/29/2015 6:06 PM T Laura Lakhani MD LAB - URINALYSIS ORD ERABLES Performing Organization Address [facility] Co de Phone Number [facility] [address] [place] [address] * CULTURE URINE (11/29/2015 6:03 PM CDT) Culture <10,000 CFU/mL urogenital nayla RAVI 12/01/2015 1:47 PM CDT [facility] Urine URINE SPECIMEN OBTAINED BY CLEAN CATCH PROCEDURE / Unknown 11/29/2015 6:03 PM CDT 11/29/2015 6:06 PM CDT Laura Lakhani MD LAB - MICROBIOLOGY O RDERABLES Performing Organization Address [facility] Co de Phone Number [facility]CRO[facility] [address] [place] [address], [facility] [phone] * TROPONIN I (11/29/2015 4:43 PM CDT) Only the most recent of2 resultswithin the time period is included. Troponin I <0.015 0.000 - 0.049 ng/mL 11/29/2015 5:14 PM CDT [facility] Blood BLOOD SPECIMEN / Unknown 11/29/2015 4:43 PM CDT 11/29/2015 4:53 PM CDT Narrative [facility] - 11/29/2015 5:14 PM [...] - CHEMISTRY ORDE RABLES Performing Organization Address [facility] Co de Phone Number [facility] [address] [place] [address] * XR CHEST PA AND LATERAL (11/29/2015 [...] - 220 U/L 11/29/2015 4:22 PM CDT [facility] Blood BLOOD SPECIMEN / Unknown 11/29/2015 1:38 PM CDT 11/29/2015 4:13 PM CDT Laura Lakhani MD LAB - CHEMISTRY GILBERTO COULTER [facility] [address] [place] [address] * PATHOLOGY/GENETICS HISTORICAL-ONBASE (09/09/2015) Only the most recent of5 resultswithin the time period is included. 09/09/2015 Historical Provider LAB - CHEMISTRY Conchis PINA [facility] [address] * EGD (04/20/2010) Jasson Carrasco MD GI PROCEDURE ORDERAB LES * PATHOLOGY REPORTS - HPF HISTORICAL (12/20/2009 11:03 PM ELECTRICAL ENGINEERING TECHNOLOGIST) 12/20/2009 11:0 3 PM ELECTRICAL ENGINEERING TECHNOLOGIST Narrative [facility] - 12/20/2009 11:03 PM ELECTRICAL ENGINEERING TECHNOLOGIST Soham Hutton MD LAB - PATH OLOGY/CYTOLOGY ORDERABLES [facility] * (ABNORMAL) LIPID PROFILE (01/14/2009 1:20 PM ELECTRICAL ENGINEERING TECHNOLOGIST) Only the most recent of2 resultswithin the [...] patients according to data reported from the [place] Study by Tanesha Huffman M.D. ??The predictive [...] BLOOD SPECIMEN / Unknown 01/14/2009 1:20 PM ELECTRICAL ENGINEERING TECHNOLOGIST 01/14/2009 1:48 PM ELECTRICAL ENGINEERING TECHNOLOGIST Scott Claros MD LAB - CHEMISTRY O YOVANI Performing Organization Address [facility] de Phone Number [facility] [address] [place] [address] * HEMOGLOBIN A1C (07/23/2008 11:32 AM CDT) Hemoglobin A1c 5.7 3.9 - 6.1 % [facility] Estimated Average Glucose 116.9 mg/dl [facility] BLOOD SPECIMEN / Unknown 07/23/2008 11:32 AM CDT Narrative [facility] - 07/23/2008 9:23 PM CDT [phone] Resulting Agency Comment Performed By [facility] Lab - [facility] ? [address] ? [place] [address] Scott Claros MD LAB - CHEMISTRY O YOVANI Performing Organization Address [facility] de Phone Number [facility] [address] [place] [address] * TSH (07/23/2008 11:32 AM CDT) TSH 0.810 0.35 - 5.50 uIU/ml [facility] BLOOD SPECIMEN / Unknown 07/23/2008 11:32 AM CDT Narrative [facility] - 07/23/2008 9:22 PM CDT [phone] Resulting Agency Comment Performed By [facility] ? [address] [place] [address] ? [place] [address] Scott Claros MD LAB - CHEMISTRY O YOVANI Performing Organization Address [facility] de Phone Number [facility] [address] [place] [address] * IRON + TRANSFERRIN PANEL (07/23/2008 11:32 AM CDT) Iron 141.5 50 - 170 ug/dl [facility] Transferrin 257.0 250 - 380 mg/dl [facility] TIBC Calculated 321 250 - 450 mg/dl [facility] Iron Saturation % 44 20 - 55 % [facility] BLOOD SPECIMEN / Unknown 07/23/2008 11:32 AM CDT Narrative Resulting Agency Comment Performed By [facility] ? [address] [place] [address] ? [place] [address] Scott Claros MD LAB - CHEMISTRY O YOVANI Performing Organization Address [facility] de Phone Number [facility] [address] [place] [address] * HCG URINE QUALITATIVE - POINT OF CARE (01/30/2008 3:00 PM ELECTRICAL ENGINEERING TECHNOLOGIST) Only the most recent of3 resultswithin the time period is included. HCG Qual Urine Not Detected Not Detected [facility] Comment , Urine: Test performed by [facility] Staff [facility] URINE / Unknown 01/30/2008 3 :00 PM ELECTRICAL ENGINEERING TECHNOLOGIST Rohith Ortiz DO LAB - POINT OF CAR E ORDERABLES Performing Organization Address [facility] de Phone Number [facility] * CULTURE BLOOD (01/30/2008 1:40 PM ELECTRICAL ENGINEERING TECHNOLOGIST) Only the most recent of2 resultswithin the time period is included. Result [facility] Comment: Final CULTURE ??No Growth BLOOD SPECIMEN / Unknown 01/30/2008 1:40 PM ELECTRICAL ENGINEERING TECHNOLOGIST 01/30/2008 1:51 PM ELECTRICAL ENGINEERING TECHNOLOGIST Narrative Resulting Agency Comment Performed By [facility] ? [address] ? [place] [address] Stephanie Candelaria MD LAB - MICROBIOLO GY ORDERABLES Performing Organization Address [facility] Co de Phone Number [facility] * CULTURE WOUND (01/30/2008 12:54 PM ELECTRICAL ENGINEERING TECHNOLOGIST) Result [facility] Comment: Final GRAM STAIN Light rbc's Rare WBC's No organisms seen ?? CULTURE ENTEROCOCCI ??Light ??Ampicillin ?RAVI ?Sensitive ?0.5 ?? ug/ml ??Vancomycin ?RAVI ?Sensitive ?<=0.5 ?? ug/ml DIPHTHEROIDS ??Light ??two strains ??Probable skin nayla ? contaminant. ABDOMEN AND PELVIS / Unknown 01/30/2008 12:54 PM ELECTRICAL ENGINEERING TECHNOLOGIST 01/30/2008 1:13 PM ELECTRICAL ENGINEERING TECHNOLOGIST Narrative Resulting Agency Comment Performed By [facility] ? [address] ? [place] [address] Stephanie Candelaria MD LAB - MICROBIOLO GY ORDERABLES Performing Organization Address City/[facility] Co de Phone Number [facility] * TYPE + SCREEN PANEL (01/15/2008 8:10 AM ELECTRICAL ENGINEERING TECHNOLOGIST) ABO Rh AB Pos [facility] Antibody Screen Neg [facility] BLOOD SPECIMEN / Unknown 01/15/2008 8:10 AM ELECTRICAL ENGINEERING TECHNOLOGIST Tulio Martinez MD LAB - BLOOD BANK OR DERABLES Performing Organization Address City/[facility]/ZIP Co de Phone Number [facility] Care Teams Senior Java Software Developer Relationship Specialty Start Date End Date Jona Bravo MD [address] [place] [id number] PCP - General Internal Medicine 10/16/22
--- OUTSIDE RECORDS SUMMARY | 2024-03-11 04:29 | XMS_ITS | Encounter Summary ---
Author Organization [facility] Address [address] [place] [address] Care Team Providers Care Media Marketing Coordinator Name Role Phone Jona Bravo MD Primary Care Provider [phone] Reason for Visit * Reason Comments Question Encounter Details Date Type Department Care Team ([facility] st Contact Info) Description 03/23/2023 Telephone [facility] [address] [place] [address] Jona Bravo MD [address] [facility] [address] [place] [address] Question Social History Tobacco Use [...] often do you attend chur ch or temple services? 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 Topic: Patient or Caregiver Communication Request >> Mar 23, 2023 12:21 PM David Monte wrote: Patient or Caregiver calling to update PCP team on status after a recent visit Caller: Eda Patient/Caregiver Callback Number: [phone] Call Notes: Message: Eda is calling to check the status of fax requesting brace for lower back and knees of patient. Informed Eda that we put the request on Dr. Bravo's desk. She wanted io inform they need the request back within 3-5 days. Please Advise R SYSTEMS ENGINEER documented in this encounter Plan of Treatment Upcoming Encounters Date Type Department Care Team (Late st Contact Info) Description 04/23/2024 1:20 PM CDT Office Visit [facility] Care [address] [place] [phone] Jona Bravo MD [address] [place] [address] [address] [place] [address] 08/25/2024 10:40 AM CDT Office Visit [address] [place] [address] Jona Bravo MD [address] [place] [address] [place] [address] documented as of this encounter Visit Diagnoses Not on filedocumented in this encounter Care Teams Media Marketing Coordinator Relationship Specialty Start Date End Date Jona Bravo MD PCP - General Internal Medicine 11/25/15 documented as of this encounter
--- OUTSIDE RECORDS SUMMARY | 2024-03-11 04:29 | XMS_ITS | Referral Summary ---
Author Organization [facility] Address [address] [facility] [place] [address] Care Team Providers Care Surg Nurse Name Role Phone Jona Bravo MD Primary Care Provider [phone] Source Comments [facility],non-owned Affiliates and Associated Physician Practices is amultiple site organization consisting of ambulatory clinics and hospital sitesin [place], [place], [place] and [place]. This disclosure is being madepursuant to the Care Everywhere program and may not contain all information available regarding this patient. Last updated 17.[facility] Virtual Call Center Allergies Active Allergy Reactions Criticality Noted Date [...] Units/L by mouth once daily Active Biotin 64883 MCG TBDP Take 1 tablet by mouth [...] mouth once daily 04/21/2021 Active nystatin (NYSTOP) 604600 UNIT/GM powder APPLY POWDER TOPICALLY TO AFFECTED [...] 01/15/08: Lap banding by Dr. Claros at [facility] Had a port leak with subsequent [...] st Contact Info) Description 04/10/2024 8:30 AM SCIENTIFIC ARTIST Office Visit [facility] - GI [address] [place] [address] Soham Hutton MD [address] [place] [address] Procedures Procedure Name Priority Date/Time Associated Diagnosis [...] 29 U/L [facility] Comment: Test Performed at: [employer] [facility] [address] [address] ??[id number] ARACELY DANIEL MD 06/05/2022 10:4 9 AM CDT 06/05/2022 10:50 AM CDT Ivette Alyson Monteiro AIRPORT ENGINEER-CHIEF MECHANICAL OFFICER LAB - LEORA ZAID ORDERABLES [facility] [address] [place] [address] * ENDOSCOPY, COLON, SCREENING (08/03/2020 9:10 AM [...] Procedure Code(s): ? --- Professional --- ? 97405, Colonoscopy, flexible; with biopsy, single or multiple Diagnosis Code(s): ?--- Professional --- ?Z86.010, Personal history of colonic polyps ?K63.5, Polyp of colon ?K57.30, Diverticulosis of large intestine without ?perforation or abscess without bleeding CPT copyright 2019 [employer]. All rights reserved. The codes documented in this report are preliminary and upon boiler reliner review may be revised to meet current compliance requirements. Soham Farley MD 08/03/2020 10:38:53 AM This report has been signed electronically. Note Initiated On: 08/03/2020 9:10 AM Number of Addenda: 0 ? [facility] ? [address] [place], [place] [address] [place] [address] [employer] 08/03/2020 9:10 AM CDT Soham Hutton MD GI PROCEDU RE ORDERABLES [facility] [employer] * HEMOGLOBIN A1C (07/23/2008 11:32 AM CDT) Hemoglobin A1c 5.7 3.9 - 6.1 % [facility] Estimated Average Glucose 116.9 mg/dl [facility] BLOOD SPECIMEN / Unknown 07/23/2008 11:32 AM CDT Narrative [facility] - 07/23/2008 9:23 PM CDT [phone] Resulting Agency Comment Performed By [facility] - [facility] ? [address] [facility] ? [place] [address] Scott Claros MD LAB - CHEMISTRY O RDERABLES [facility] [address] [place] [address] from Last 3 Months or Most Recently Relevant to Health Maintenance Advance Directives * Full Code (Latest Code Status on File) Date Activated Date Inactivated Comments 06/19/2018 5:17 PM 06/20/2018 8:12 PM * Full Code Date Activated Date Inactivated Comments 12/24/2017 11:20 AM 12/25/2017 12:40 PM Care Teams Surg Nurse Relationship Specialty Start Date End Date Jona Braov MD [address] [place] [phone] PCP - General Internal Medicine 10/16/22
--- OUTSIDE RECORDS SUMMARY | 2024-03-11 04:29 | XMS_ITS | Data Portability ---
Author Organization [facility] [place] Address [address] [place] [address] Assessment No assessment recorded. Plan of Treatment Reminders Order Date Submit Date Provider Last Modified By Organization Details Last Modified Time Details Appointments [facility] 2024 10:00A M KELVIN NEWELL MD Not available Not available Not available Lab testoster one, total, serum 2023 [facility] (Lab), [address] [place], [address], 01/24/2024 22:07:50 testoster one, free, serum 2023 024 [facility] (Lab), [address] [facility], [place], [address], 01/24/2024 22:07:50 CMP, serum or plasma 2023 024 [facility] (Lab), [address] [facility], [place], [address], 01/24/2024 22:07:49 Referral None recorded. Procedures None recorded. Surgeries None recorded. Imaging None recorded. Medication Orders clobetaso l 0.05 % topical ointment [email or web address] [place] [address] [facility], [address] [facility], [place], [address], 12/19/2023 12:05:26 estradiol 0.01% (0.1 mg/gram) vaginal cream 2023 024 [facility], [address] [place], [address], 01/18/2024 16:24:04 Patient TargetsNo targets recorded. Patient InstructionsNo instructions recorded. Reason for Referral None Reported. Results Created Date Observation Date Name Description Value Unit Range Abnormal Flag Note LastModifiedBy Organization Detail LastModifiedTime 01/18/20 24 01/18/2024 CMP(C OMPRE HENSI VE METAB OLIC PANEL ) sodium 141 mmol/ L 133-14 6 Not Available [facility] (Lab) [address] [facility], [place], [address], 01/24/2024 22:07:49 01/18/20 24 01/18/2024 CMP(C OMPRE HENSI VE METAB OLIC PANEL ) potassium 4.1 mmol/ L 3.5-5. 1 Not Available [facility] (Lab) [address] [place], [address], 01/24/2024 22:07:49 01/18/20 24 01/18/2024 CMP(C OMPRE HENSI VE METAB OLIC PANEL ) chloride 105 mmol/ L 98-107 Not Available [facility] (Lab) [address] [place], [address], 01/24/2024 22:07:49 01/18/20 24 01/18/2024 CMP(C OMPRE HENSI VE METAB OLIC PANEL ) carbon dioxide 30 mmol/ L 21-31 Not Available [facility] (Lab) [address] [place], [address], 01/24/2024 22:07:49 01/18/20 24 01/18/2024 CMP(C OMPRE HENSI VE METAB OLIC PANEL ) anion gap 6 mmol/ L 4-13 Not Available [facility] (Lab) [address] [place], [address], 01/24/2024 22:07:49 01/18/20 24 01/18/2024 CMP(C OMPRE HENSI VE METAB OLIC PANEL ) blood urea nitrogen 23 mg/dL 7-[address] [facility] (Lab) [address] [facility], [place], [address], 01/24/2024 22:07:49 01/18/20 24 01/18/2024 CMP(C OMPRE HENSI VE METAB OLIC PANEL ) creatinine 0.69 mg/dL 0.60-1 .30 Not Available [facility] (Lab) [address] [facility], [place], [address], 01/24/2024 22:07:49 01/18/20 24 01/18/2024 CMP(C OMPRE HENSI VE METAB OLIC PANEL ) egfrcr (CKD-epi 2020) >90 mL/mi n/1.7 3_m2 >=60 Not Available [facility] (Lab) [address] [facility], [place], [address], 01/24/2024 22:07:49 01/18/20 24 01/18/2024 CMP(C OMPRE HENSI VE METAB OLIC PANEL ) calcium 9.3 mg/dL 8.3-10 .5 Not Available [facility] (Lab) [address] [facility], [place], [address], 01/24/2024 22:07:49 01/18/20 24 01/18/2024 CMP(C OMPRE HENSI VE METAB OLIC PANEL ) glucose 81 mg/dL 70-100 Not Available [facility] (Lab) [address] [facility], [place], [address], 01/24/2024 22:07:49 01/18/20 24 01/18/2024 CMP(C OMPRE HENSI VE METAB OLIC PANEL ) protein, total 6.7 g/dL 6.4-8. 3 Not Available [facility] (Lab) [address] [facility], [place], [address], 01/24/2024 22:07:49 01/18/20 24 01/18/2024 CMP(C OMPRE HENSI VE METAB OLIC PANEL ) albumin 4.5 g/dL 3.5-5. 0 Not Available [facility] (Lab) [address] [facility], [place], [address], 01/24/2024 22:07:49 01/18/20 24 01/18/2024 CMP(C OMPRE HENSI VE METAB OLIC PANEL ) ALT 54 units /L 9-43 high Not Available [facility] (Lab) [address] [facility], [place], [address], 01/24/2024 22:07:49 01/18/20 24 01/18/2024 CMP(C OMPRE HENSI VE METAB OLIC PANEL ) alkaline phosphatase 64 units /L 34-104 Not Available [facility] (Lab) [address] [facility], [place], [address], 01/24/2024 22:07:49 01/18/20 24 01/18/2024 CMP(C OMPRE HENSI VE METAB OLIC PANEL ) AST 42 units /L 13-39 high Not Available [facility] (Lab) [address] [facility], [place], [address], 01/24/2024 22:07:49 01/18/20 24 01/18/2024 CMP(C OMPRE HENSI VE METAB OLIC PANEL ) bilirubin, total 0.7 mg/dL 0.2-1. 2 Not Available [facility] (Lab) [address] [place], [address], 01/24/2024 22:07:49 01/18/20 24 01/18/2024 TESTO STERO NE, TOTAL testosterone , total <10 NG/dL 0-[address] [facility] (Lab) [address] [place], [address], 01/24/2024 22:07:50 01/18/20 24 01/18/2024 TESTO STERO [...] [facility] [place] [place]. It has not been clear ed or appro otilia by the U.S. Food and Drug Admin istra tion. This assay has been valid ated pursu ant to the CLIA regul ation s and is used for clini fortunato purpo ses. Perfo rming Organ izati on Infor matio n: Site ID: AMD Name: [facility] Addre ss: [id number] [facility] [address] [place], [place] Direc tor: Nolan Coelho MD PhD Not Available [facility] (Lab) [address] [facility], [place], [address], 01/24/2024 22:07:50 Result Notes None recorded. Procedures Surgical History Date Name Laterality Status Provider Name and Address Organization Details Recorded Time 11/18/[address] [facility] 12/18/2023 17:38:10 11/14/19 23 Date of Last Mammogram completed Renetta [facility] 12/18/2023 17:38:32 06/13/19 23 Most Recent Bone Density completed Renetta [facility] 12/18/2023 17:38:32 11/07/19 20 Date of Last Colonoscopy completed Renetta [facility] 12/18/2023 17:38:32 06/25/19 20 Date of Last Pap Smear completed Renetta [facility] 12/18/2023 17:38:32 06/24/[address] [facility] 12/18/2023 17:38:10 06/24/19 19 Gastric Bypass completed [facility] 12/18/2023 17:38:10 06/20/19 19 Bariatric Surgery completed [facility] 12/18/2023 17:38:10 06/24/[address] [facility] 12/18/2023 17:38:10 Gastric Bypass completed [facility] 12/18/2023 17:38:10 LEEP completed [facility] 12/18/2023 17:38:10 Dilation and Curettage completed [facility] 12/18/2023 17:38:10 Orthopedic Surgery completed [facility] 12/18/2023 17:38:10 Endometrial Ablation completed [facility] 12/18/2023 17:38:[address] [facility] 12/18/2023 17:38:[address] [facility] 12/18/2023 17:38:10 Endometrial Biopsy completed [facility] 12/18/2023 17:38:10 Other completed [facility] 12/18/2023 17:38:10 Total Hysterectomy completed [facility] 12/18/2023 17:38:[address] [facility] 12/18/2023 17:38:10 Imaging Results None recorded. Procedure Notes None recorded. Medical Equipment None Reported. Allergies Allergen ID Allergen Name Allergen Category Reaction Reaction Severity Criticality Documentation Date Start Date Code Code System Note Provider Name and Address Organization Details Recorded Time 65409 codeine medicatio n Not available Not available Not available 12/18/2023 2670 RxNorm Renetta [facility]donado [facility] 4 17:48:47 73759 meperidin e medicatio n Not available Not available Not available 12/18/2023 6754 RxNorm Renetta Maldonado [facility] 4 17:49:01 21919 levofloxa vishnu medicatio n Not available Not available Not available 12/18/2023 91752 RxNorm Renetta Maldonado [facility] 4 17:49:16 67126 gabapenti n medicatio n Not available Not available Not available 12/18/2023 33116 RxNorm Renetta Maldonado [facility] 4 17:49:27 21005 adhesive tape environme nt,medica tion Not available Not available Not available 12/18/2023 65793 UNK Renetta Maldonado [facility] 4 17:49:34 49203 doxycycli ne Not available Not available Not available Not available 12/18/2023 3640 RxNorm Renetta Maldonado [facility] 4 17:49:45 Medications Name Sig Start [...] Address Organization Details Last Updated DateTime 12/18/2023 22653.14 g 33.8 kg/m2 160.02 cm 143 mm[Hg] 84 mm[Hg] [facility] 4 17:48:08 Date Recorded Body height Body mass index (BMI) Body weight Systolic blood pressure Diastolic blood pressure Provider Name and Address Organization Details Last Updated DateTime 01/18/2024 160.02 cm 33.5 kg/m2 35537.96 g 149 mm[Hg] 88 mm[Hg] [facility] 4 10:33:47 Social History Question Answer Notes LastModified by Organizat ion Details LastModified Time Do You Have An Advance Directive? No [email or web address] Information n ot available 12/18/2023 What Is Your Level Of Alcohol Consumption? None [email or web address] Information not available 12/18/2023 Are You Blind Or Do You Have Difficulty Seeing? No [email or web address] Information not available 12/18/2023 What Is Your Level Of Caffeine Consumption? None [email or web address] Information not available 12/18/2023 In The 14 Days Before Symptom Onset, Have You Had Close Contact With A Laboratory-confirme d COVID-19 While That Case Was Ill? No [email or web address] Information n ot available 12/18/2023 In The 14 Days Before Symptom Onset, Have You Had Close Contact With A Person Who Is Under Investigation For COVID-19 While That Person Was Ill? No [email or web address] Information not available 12/18/2023 Have You Been To An Area Known To Be High Risk For COVID-19? No [email or web address] Information not available 12/18/2023 Are You Deaf Or Do You Have Serious Difficulty Hearing? No [email or web address] Information not available 12/18/2023 What Type Of Diet Are You Following? REGULAR [email or web address] Information n ot available 12/18/2023 What Is The Highest Grade Or Level Of School You Have Completed Or The Highest Degree You Have Received? [id number] Information not available 12/18/2023 What Is Your Occupation? Disabled [email or web address] Information not available 12/18/2023 Are There Any Guns Present In Your Home? No [email or web address] Information not available 12/18/2023 Do You Use Protection During Sex? No [email or web address] Information not available 12/18/2023 Do You Use Your Seat Belt Or Car Seat Routinely? Yes [email or web address] Information not available 12/18/2023 Do You Have Smoke And Carbon Monoxide Detectors In Your Home? Yes xtgeenx55 Information not available 12/18/2023 How Much Tobacco Do You Smoke? No [email or web address] Information not available 12/18/2023 Do You Feel Stressed (tense, Restless, Nervous, Or Anxious, Or Unable To Sleep At Night)? [id number] [email or web address] Information not available 12/18/2023 Do You Use Any Illicit Or Recreational Drugs? No [email or web address] Information not available 12/18/2023 Do You Use Sunscreen Routinely? Yes [email or web address] Information not available 12/18/2023 Have You Used IV Drugs? No [email or web address] Information not available 12/18/2023 Sex: Unknown Functional Status Question Answer Note LastModified by Organization D etails LastModified Time Are you able to walk? YESWOREST [email or web address] Information not available 12/18/2023 What is your exercise level? None [email or web address] Information not available 12/18/2023 Mental Status None recorded. Family History Relationship Description Onset Age of this Age Resolved Age Notes LastModified by Organization Details LastModified Time Mother Disorder of lung 73 73 [email or web address] Not available 2023 17:38:09 Mother Malignant tumor of lung 73 73 [email or web address] Not available 2023 17:38:09 Mother Disorder of lung [email or web address] Not available 2023 10:30:05 Mother Malignant tumor of lung [email or web address] Not available 2023 10:30:05 Son Depressive disorder 25 [email or web address] Not available 2023 10:30:05 Son Depressive disorder [email or web address] Not available 2023 10:30:05 Daughter Asthma 14 Not availabl e 01/18/2024 10:30:05 Daughter Anxiety disorder 15 Not available 2023 10:30:05 Daughter Depressive disorder 15 [email or web address] Not available 2023 10:30:05 Daughter Substance abuse 16 [email or web address] Not available 2023 10:30:05 Daughter Mental disorder 16 [email or web address] Not available 2023 10:30:05 Daughter Pre-eclampsi a 28 [email or web address] Not available 2023 10:30:05 Daughter Asthma Not availabl e 01/18/2024 10:30:05 Daughter Anxiety disorder [email or web address] Not available 2023 10:30:05 Daughter Depressive disorder [email or web address] Not available 2023 10:30:05 Daughter Pre-eclampsi a [email or web address] Not available 2023 10:30:05 Daughter Substance abuse [email or web address] Not available 2023 10:30:05 Daughter Mental disorder [email or web address] Not available 2023 10:30:05 Sister Anemia 23 [email or web address] Not available 01/18/2024 10:30:05 Sister Osteoporosis 45 [email or web address] Not avai lable 01/18/2024 10:30:05 Sister Diabetes mellitus 45 [email or web address] Not available 2023 10:30:05 Sister Anemia [email or web address] Not available 01/18/2024 10:30:05 Sister Osteoporosis Not avai lable 01/18/2024 10:30:05 Sister Diabetes mellitus [email or web address] Not available 2023 10:30:05 Father Heart disease 59 67 [email or web address] Not available 2023 17:38:10 Father Disorder of lung 67 67 Not available 2023 17:38:10 Father Disorder of lung bvqynge63 Not available 2023 10:30:05 Father Heart disease [email or web address] Not available 2023 10:30:05 Medical History No [...] SNOMED-CT Code Diagnosis ICD10 Code Diagnosis Note [id number] KELVIN NEWELL MD [place] [address] [address] 12/18/2023 17:22:32 12/19/2023 03:57:08 Genital herpes simplex [id number] A60.9 - new exposure per patient- s/p [...] at this time Lichen sim plex chronicus [id number] L28.0 - patient reports thickening of vulvar skin for years, itch-scrat ch cycle- will start clobetasol ointment; rtc 1 month for evaluation [id number] KELVIN NEWELL MD [place] [address] [address] 01/18/2024 10:05:21 01/18/2024 16:50:31 Lack or loss of sexual desire [id number] F52.0 - patient reports long standing superficia l dyspareuni a (previousl y improved with vaginal estrogen cream) and low libido- will restart vaginal estrogen- discussed testostero ne supplement ation for HSDD Lichen sim plex chronicus [id number] L28.0 - patient reports thickening of vulvar [...] 12/18/2023 4 [place] Tk Abad Joseph [id number] Tiffanie Ruiz 12/18/2023 1 [place] Tiffanie Ruiz [id number] Tiffanie Ruiz 01/18/2024 2 [place] [id number] Tk Ruiz [id number] Tiffanie Ruiz 01/18/2024 1 [place] Tiffanie Ruiz [id number] Tiffaniemorgan Ruiz Notes Date Note Type [...] it. KELVIN NEWELL MD [address], [place], [address], [facility] 12/18/2023 22:44:55 01/18/2024 text/html Patient presents [...] libido. KELVIN NEWELL MD [address], [place], [address], [facility] 01/18/2024 16:24:14 OBGyn Episode Ob Episode Information Episode Created Date Number of Fetuses Patient Bloodtype Patient rh Status Prepregnancy Weight lbs Domestic Partner Domestic Partner Phone Father Name Manager Integrity Status 12/18/19 24 1 CLOSED Fetus Data First Name Last Name Admitted to NICU Weight (g) Sex Living Outcome Pediatric Complications Fetus ID Race Codes Race Delivery Type F Full Term [id number] Vaginal Delivery Frederick Calculation Initial Frederick Date [...] Domestic Partner Domestic Partner Phone Father Name Manager Integrity Status 12/18/19 24 1 CLOSED Fetus Data First Name Last Name Admitted to NICU Weight (g) Sex Living Outcome Pediatric Complications Fetus ID Race Codes Race Delivery Type M Full Term [id number] Vaginal Delivery Frederick Calculation Initial Frederick Date [...]
--- NOTE | 2024-03-11 05:29 | ED.GENADULT ---
HPI - General Adult General Chief complaint: Urogenital-Female <Carlos Calderon MD - Last Filed: 03/11/24 05:32> Stated complaint: kidney stone surgery sunday - here for stent place <Carlos Calderon MD - Last Filed: 03/11/24 05:32> Time Seen by Provider: 03/11/24 05:24 <Carlos Calderon MD - Last Filed: 03/11/24 05:32> History of Present Illness HPI narrative: Patient is 64-year-old female who presents emergency department with chief complaint of right-sided flank pain patient had a kidney stone procedure done and a stent placement on Sunday the patient accidentally removed her stent on Sunday reports that she talks to her urologist who said of her pain got worse she should return to the emergency department for possible stent placement. Patient reports her last oral intake was around 8:00 p.m. last night <Carlos Calderon MD - Last Filed: 03/11/24 05:32> Related Data Home medications: Home Medications ?Medication ?Instructions ?Recorded ?Confirmed ?Last Taken ?Type aspirin 81 mg capsule 81 mg PO WEEKLY 05/03/22 03/07/24 02/29/24 History bupropion HCl 300 mg 24 hr tablet, 300 mg PO QAM 05/03/22 03/07/24 03/07/24 History extended release (Wellbutrin XL) levothyroxine 88 mcg tablet 88 mcg PO DAILY 05/03/22 03/07/24 03/07/24 History huibsbzx-woyxjgei-fjxb 45 mg-folic 1 cap PO DAILY 05/03/22 03/06/24 Unknown History acid 800 mcg-vit K 120 mcg capsule (Bariatric Multivitamins) pravastatin 80 mg tablet 80 mg PO .PM 05/03/22 03/07/24 03/06/24 History amlodipine 2.5 mg tablet 2.5 mg PO DAILY 10/17/23 03/07/24 03/06/24 History cyanocobalamin (vitamin B-12) 1,000 mcg subcut .Sunday10/17/23 03/07/24 03/02/24 History 1,000 mcg/mL injection solution alprazolam 0.5 mg tablet 0.5 mg PO QHS 02/10/24 03/07/24 03/06/24 History buspirone 15 mg tablet 15 mg PO BID 02/10/24 03/07/24 03/06/24 History clobetasol 0.05 % topical ointment 1 g topical DAILY 02/10/24 03/06/24 Unknown History duloxetine 60 mg capsule,delayed 60 mg PO DAILY 02/10/24 03/07/24 03/07/24 History release estradiol 0.01% (0.1 mg/gram) 1 g vaginal WEEKLY 02/10/24 03/06/24 Unknown History vaginal cream losartan 100 mg tablet 50 mg PO BID 02/10/24 03/07/24 03/06/24 History spironolactone 25 mg tablet 25 mg PO DAILY 02/10/24 03/07/24 03/06/24 History temazepam 15 mg capsule 15 mg PO QHS PRN sleep 02/10/24 03/06/24 Unknown History tizanidine 4 mg tablet 4 mg PO Q8H PRN muscle spasticity 02/10/24 03/06/24 Unknown History hydrocodone 10 mg-acetaminophen 1 tablet PO PRN pain 03/06/24 03/07/24 03/07/24 History 325 mg tablet <Carlos Calderon MD - Last Filed: 03/11/24 05:32> Allergies/adverse reactions: Allergies Allergy/AdvReac Type Severity Reaction Status Date / Time meperidine (From Demerol) Allergy Severe Hives Verified 03/06/24 08:37 levofloxacin (From Levaquin) AdvReac Intermediate INFLAMED Verified 03/06/24 08:37 TENDONS adhesive tape AdvReac Blister Verified 03/06/24 08:37 codeine AdvReac Hives Verified 03/06/24 08:37 <Carlos Calderon MD - Last Filed: 03/11/24 05:32> Review of Systems Review of Systems: A 10 system review of systems was completed on the patient and is negative except for what is stated in the HPI. Nursing and ancillary documentation was reviewed. <Carlos Calderon MD - Last Filed: 03/11/24 05:32> PMFSH Past Medical History Medical History: Medical History Melanoma Chronic, continuous use of opioids [place]LE[place] (nonalcoholic steatohepatitis) MEREDITH (obstructive sleep apnea) Kidney stones Hypothyroid Anxiety Fibromyalgia CVA (cerebral vascular accident) Asthma Hyperlipidemia Chronic pain syndrome Chronic lung disease <Carlos Calderon MD - Last Filed: 03/11/24 05:32> Surgical History Surgical History: Surgical History Gastric bypass status for obesity H/O cataract removal with insertion of prosthetic lens Hx of appendectomy H/O: hysterectomy H/O thyroidectomy Hx of cervical spine surgery H/O lithotripsy <Carlos Calderon MD - Last Filed: 03/11/24 05:32> Family History Family History: Family History Sibling Family history of rheumatoid arthritis Mother Family history of lung cancer <Carlos Calderon MD - Last Filed: 03/11/24 05:32> Social History Social History: Social History Smoking status: Never smoker Second hand tobacco smoke exposure: No Alcohol intake: never Substance use: never Substance use type: does not use Other substance usage details: THC gummies for sleep. Do You Feel Safe in your Home?: Yes Lack of Transportation: No Lack of Food: Never True Current Housing: I Have Housing Concerned About Future Housing: No Difficulty Paying Gas/Electric Bills: No Difficulty Paying for Meds: No Currently Unemployed: No Education: Trade/Vocational Certificate Difficulty w/ Childcare or Family Care: No Living arrangements: with family Additional living arrangements comments: Gender identity (if verbalized by the patient): Female Spiritual care concerns: No <Carlos Calderon MD - Last Filed: 03/11/24 05:32> Exam Narrative: GENERAL: Well-appearing, well-nourished, and in moderate acute pain distress. HEAD: Normocephalic, atraumatic. EYES: PERRLA and EOMI. ENT: Nares clear, no rhinorrhea or epistaxis. Mucous membranes moist. NECK: Supple. CHEST: Clear to auscultation. No respiratory distress. HEART: Regular rate and rhythm. No murmur heard. Normal peripheral pulses. ABDOMEN: Soft, nontender, nondistended, normal active bowel sounds. EXTREMITIES: Normal range of motion. No edema. SKIN: Warm, dry, no rash. NEURO: No focal deficits. Alert and oriented x3. PSYCH: Normal mood and affect. <Carlos Calderon MD - Last Filed: 03/11/24 05:32> Course Reevaluation(s) Reevaluation #1: I assumed care of this patient at shift change with pending disposition, her pain is improved. I did review her chart and I discussed with Dr. Pulido , pt can be discharged home, can be followed in the office, she does feel comfortable going home. <Beau Kat MD - Last Filed: 03/11/24 08:03> Vital Signs Vital signs: Vital Signs Temperature 36.8 C 03/11/24 04:26 Pulse Rate 86 03/11/24 04:26 Respiratory Rate 16 03/11/24 04:26 Blood Pressure 123/60 03/11/24 04:26 Pulse Oximetry 94 03/11/24 04:26 Oxygen Delivery Room Air 03/11/24 04:26 Temperature 36.8 C 03/11/24 04:26 Pulse Rate 74 03/11/24 07:31 Respiratory Rate 14 03/11/24 07:31 Blood Pressure 118/55 L 03/11/24 07:31 Pulse Oximetry 100 03/11/24 07:31 Oxygen Delivery Room Air 03/11/24 04:26 <Carlos Calderon MD - Last Filed: 03/11/24 05:32> Vital Signs Temperature 36.8 C 03/11/24 04:26 Pulse Rate 86 03/11/24 04:26 Respiratory Rate 16 03/11/24 04:26 Blood Pressure 123/60 03/11/24 04:26 Pulse Oximetry 94 03/11/24 04:26 Oxygen Delivery Room Air 03/11/24 04:26 Temperature 36.8 C 03/11/24 04:26 Pulse Rate 74 03/11/24 07:31 Respiratory Rate 14 03/11/24 07:31 Blood Pressure 118/55 L 03/11/24 07:31 Pulse Oximetry 100 03/11/24 07:31 Oxygen Delivery Room Air 03/11/24 04:26 <Beau Kat MD - Last Filed: 03/11/24 08:03> Medical Decision Making Vital Signs Vital Signs: Vital Signs Temperature 36.8 C 03/11/24 04:26 Pulse Rate 86 03/11/24 04:26 Respiratory Rate 16 03/11/24 04:26 Blood Pressure 123/60 03/11/24 04:26 Pulse Oximetry 94 03/11/24 04:26 Oxygen Delivery Room Air 03/11/24 04:26 Temperature 36.8 C 03/11/24 04:26 Pulse Rate 74 03/11/24 07:31 Respiratory Rate 14 03/11/24 07:31 Blood Pressure 118/55 L 03/11/24 07:31 Pulse Oximetry 100 03/11/24 07:31 Oxygen Delivery Room Air 03/11/24 04:26 <Carlos Calderon MD - Last Filed: 03/11/24 05:32> Vital Signs Temperature 36.8 C 03/11/24 04:26 Pulse Rate 86 03/11/24 04:26 Respiratory Rate 16 03/11/24 04:26 Blood Pressure 123/60 03/11/24 04:26 Pulse Oximetry 94 03/11/24 04:26 Oxygen Delivery Room Air 03/11/24 04:26 Temperature 36.8 C 03/11/24 04:26 Pulse Rate 74 03/11/24 07:31 Respiratory Rate 14 03/11/24 07:31 Blood Pressure 118/55 L 03/11/24 07:31 Pulse Oximetry 100 03/11/24 07:31 Oxygen Delivery Room Air 03/11/24 04:26 <Beau Kat MD - Last Filed: 03/11/24 08:03> Lab Data Result diagrams: 03/11/24 06:07 03/11/24 06:07 <Carlos Calderon MD - Last Filed: 03/11/24 05:32> Labs: Lab Results 03/11/24 Range/Units 06:07 WBC 5.4 (4.5-10.0) K/mm3 RBC 4.06 L (4.2-5.4) M/mm3 Hgb 14.7 (12.0-15.0) g/dL Hct 44.3 (37.0-47.0) % MCV 109.1 H (80-100) fl MCH 36.2 H (26-34) pg MCHC 33.2 (32-36) g/dl RDW 11.6 (11.5-14.5) % Plt Count 164 (150-375) k/mm3 MPV 9.6 (7.4-10.4) fl Immature Gran % (Auto) 0.4 (0-0.5) % Neut % (Auto) 54.9 (45.5-73.1) % Lymph % (Auto) 31.4 (18.3-44.2) % [place] % (Auto) 10.9 H (2.6-8.5) % Eos % (Auto) 2.0 (0-4.4) % Baso % (Auto) 0.4 (0.2-1.2) % Lymph # (Auto) 1.70 (0.9-3.2) K/mm3 [place] # (Auto) 0.6 (0.1-0.6) K/mm3 Eos # (Auto) 0.1 (0-0.3) K/mm3 Baso # (Auto) 0.0 (0.0-0.1) K/mm3 Abs Immat Gran (auto) 0.02 (0.00-0.031) K/mm3 Absolute Neuts (auto) 3.0 (1.3-6.7) K/mm3 Absolute Nucleated RBC 0.000 (0.0-0.012) K/mm3 Nucleated RBC % 0.0 (0.0-0.2) % Platelet Estimate Adequate (Adequate) Anisocytosis 1+ Macrocytosis 1+ (NORMAL) Schistocytes None seen Sodium 139 (137-145) mmol/L Potassium 4.3 (3.4-5.0) mmol/L Chloride 100 (98-107) mmol/L Carbon Dioxide 31 H (22-30) mmol/L Anion Gap 8 (4-12) mmol/L BUN 32 H (7-17) mg/dL Creatinine 0.87 (0.7-1.0) mg/dL Estim Creat Clear Calc 59 ml/min Estimated GFR > 60 (59 - ) Glucose 96 (65-110) mg/dL Calcium 9.5 (8.4-10.2) mg/dL Total Bilirubin 0.8 (0.2-1.3) mg/dL AST 41 H (14-36) U/L ALT 53 H (6-35) U/L Alkaline Phosphatase 66 (38-126) U/L Total Protein 8.0 (6.3-8.2) g/dL Albumin 4.8 (3.5-5.1) g/dL Urine Color Yellow (Yellow) Urine Appearance Cloudy H (Clear) Urine pH 6.0 (5.0-9.0) Ur Specific [place] 1.025 (1.001-1.035) Urine Protein 1+ H (Negative) mg/dL Urine Glucose (UA) Negative (Negative) mg/dL Urine Ketones Trace H (Negative) mg/dL Ur Blood (Man) 3+ H (Negative) Urine Nitrate Negative (Negative) Urine Bilirubin Negative (Negative) Urine Urobilinogen 1.0 (<2.0) mg/dL Leukocyte Esterase Rfl Trace H (Negative) VIOLA/UL Urine RBC >100 H (0-2) /hpf Urine WBC 11-20 H (0-3) /hpf Ur Squamous Epith Cells None seen (Few) /hpf Urine Bacteria None seen /hpf Urine Casts 0-2 <Carlos Caledron MD - Last Filed: 03/11/24 05:32> Lab Results 03/11/24 Range/Units 06:07 WBC 5.4 (4.5-10.0) K/mm3 RBC 4.06 L (4.2-5.4) M/mm3 Hgb 14.7 (12.0-15.0) g/dL Hct 44.3 (37.0-47.0) % MCV 109.1 H (80-100) fl MCH 36.2 H (26-34) pg MCHC 33.2 (32-36) g/dl RDW 11.6 (11.5-14.5) % Plt Count 164 (150-375) k/mm3 MPV 9.6 (7.4-10.4) fl Immature Gran % (Auto) 0.4 (0-0.5) % Neut % (Auto) 54.9 (45.5-73.1) % Lymph % (Auto) 31.4 (18.3-44.2) % [place] % (Auto) 10.9 H (2.6-8.5) % Eos % (Auto) 2.0 (0-4.4) % Baso % (Auto) 0.4 (0.2-1.2) % Lymph # (Auto) 1.70 (0.9-3.2) K/mm3 [place] # (Auto) 0.6 (0.1-0.6) K/mm3 Eos # (Auto) 0.1 (0-0.3) K/mm3 Baso # (Auto) 0.0 (0.0-0.1) K/mm3 Abs Immat Gran (auto) 0.02 (0.00-0.031) K/mm3 Absolute Neuts (auto) 3.0 (1.3-6.7) K/mm3 Absolute Nucleated RBC 0.000 (0.0-0.012) K/mm3 Nucleated RBC % 0.0 (0.0-0.2) % Platelet Estimate Adequate (Adequate) Anisocytosis 1+ Macrocytosis 1+ (NORMAL) Schistocytes None seen Sodium 139 (137-145) mmol/L Potassium 4.3 (3.4-5.0) mmol/L Chloride 100 (98-107) mmol/L Carbon Dioxide 31 H (22-30) mmol/L Anion Gap 8 (4-12) mmol/L BUN 32 H (7-17) mg/dL Creatinine 0.87 (0.7-1.0) mg/dL Estim Creat Clear Calc 59 ml/min Estimated GFR > 60 (59 - ) Glucose 96 (65-110) mg/dL Calcium 9.5 (8.4-10.2) mg/dL Total Bilirubin 0.8 (0.2-1.3) mg/dL AST 41 H (14-36) U/L ALT 53 H (6-35) U/L Alkaline Phosphatase 66 (38-126) U/L Total Protein 8.0 (6.3-8.2) g/dL Albumin 4.8 (3.5-5.1) g/dL Urine Color Yellow (Yellow) Urine Appearance Cloudy H (Clear) Urine pH 6.0 (5.0-9.0) Ur Specific [place] 1.025 (1.001-1.035) Urine Protein 1+ H (Negative) mg/dL Urine Glucose (UA) Negative (Negative) mg/dL Urine Ketones Trace H (Negative) mg/dL Ur Blood (Man) 3+ H (Negative) Urine Nitrate Negative (Negative) Urine Bilirubin Negative (Negative) Urine Urobilinogen 1.0 (<2.0) mg/dL Leukocyte Esterase Rfl Trace H (Negative) VIOLA/UL Urine RBC >100 H (0-2) /hpf Urine WBC 11-20 H (0-3) /hpf Ur Squamous Epith Cells None seen (Few) /hpf Urine Bacteria None seen /hpf Urine Casts 0-2 <Beau Kat MD - Last Filed: 03/11/24 08:03> Discharge Plan Discharge Clinical Impression: Renal colic <Carlos Calderon MD - Last Filed: 03/11/24 05:32> Patient Disposition: Home, Self-Care <Carlos Calderon MD - Last Filed: 03/11/24 05:32> Condition: Stable <Carlos Calderon MD - Last Filed: 03/11/24 05:32> Instructions: Renal Colic (ED) <Carlos Calderon MD - Last Filed: 03/11/24 05:32> Additional Instructions: Continue home medication, taking pain medication as prescribed, follow-up with the urologist <Carlos Calderon MD - Last Filed: 03/11/24 05:32> Patient Language: Yi <Carlos Calderon MD - Last Filed: 03/11/24 05:32> Prescriptions: New hydrocodone-acetaminophen 5-325 mg tablet 1 tablet PO Q6H PRN (Reason: pain) Qty: 12 0RF tamsulosin [Flomax] 0.4 mg capsule 0.4 mg PO DAILY Qty: 10 0RF No Action levothyroxine 88 mcg tablet 88 mcg PO DAILY pravastatin 80 mg tablet 80 mg PO .PM bupropion HCl [Wellbutrin XL] 300 mg Tablet Extended Release 24 Hr 300 mg PO QAM Bariatric Multivitamins 45 mg iron- 800 mcg-120 mcg Capsule 1 cap PO DAILY aspirin 81 mg Capsule 81 mg PO WEEKLY Patient Comments: PT TAKES ON Fridays Rx Instructions: Sundays albuterol sulfate 90 mcg/actuation HFA aerosol inhaler 2 puff inhalation QID PRN (Reason: shortness of breath or wheezing) Qty: 8.5 0RF tizanidine 4 mg tablet 4 mg PO Q8H PRN (Reason: muscle spasticity) spironolactone 25 mg tablet 25 mg PO DAILY alprazolam 0.5 mg tablet 0.5 mg PO QHS temazepam 15 mg capsule 15 mg PO QHS PRN (Reason: sleep) clobetasol 0.05 % ointment 1 g TOPICAL DAILY estradiol 0.01 % (0.1 mg/gram) cream 1 g VAGINAL WEEKLY losartan 100 mg tablet 50 mg PO BID buspirone 15 mg tablet 15 mg PO BID duloxetine 60 mg capsule,delayed release(DR/EC) 60 mg PO DAILY hydrocodone-acetaminophen 10-325 mg tablet 1 tablet PO PRN sulfamethoxazole-trimethoprim [Bactrim DS] 800-160 mg tablet 1 tablet PO Q12H Qty: 6 0RF tramadol 50 mg tablet 50 mg PO Q6H PRN (Reason: pain) Qty: 20 0RF oxybutynin chloride 5 mg tablet 5 mg PO BID PRN (Reason: bladder spasms) Qty: 30 0RF Rx Instructions: Take as needed for bladder spasms amlodipine 2.5 mg tablet 2.5 mg PO DAILY cyanocobalamin (vitamin B-12) 1,000 mcg/mL solution 1,000 mcg subcut .SUNDAY <Carlos Calderon MD - Last Filed: 03/11/24 05:32> Follow-up/Referrals: Shelly,Jona Fonseca MD [Primary Care Provider] - Julio Pulido MD [Physician] - <Carlos Calderon MD - Last Filed: 03/11/24 05:32> Time of Disposition: 08:02 <Carlos Calderon MD - Last Filed: 03/11/24 05:32> 08:02 <Beau Kat MD - Last Filed: 03/11/24 08:03>
--- OUTSIDE RECORDS SUMMARY | 2024-03-11 05:39 | XMS_ITS | Encounter Summary ---
Author Organization [facility] Address [address] [place] [address] Dr. Quinones: [place] [address] Care Team Providers Care Staffing Clerk Name Role Phone Jona Bravo MD Primary Care Provider [phone] Encounter Details Date Type Department Care Team (Late st Contact Info) Description 03/10/2024 External Device Data Initial Department [address] [place] [address] Dr QUINONES: [place] [address] [facility], Social History Tobacco Use Types Packs/Day [...] often do you attend chur ch or restorationism services? 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 Not on file Not on file documented as of this encounter Plan of Treatment Upcoming Encounters Date Type Department Care Team (Late st Contact Info) Description 04/23/2024 1:20 PM CDT Office Visit [address] [place] [phone] Jona Bravo MD [address] [place] [address] [address] [place] [address] 08/25/2024 10:40 AM CDT Office Visit [address] [place] [address] Jona Bravo MD [address] [place] [address] [address] [place] [phone] documented as of this encounter Visit Diagnoses Not on filedocumented in this encounter Care Teams Staffing Clerk Relationship Specialty Start Date End Date Jona Bravo MD PCP - General Internal Medicine 11/25/15 documented as of this encounter
--- OUTSIDE RECORDS SUMMARY | 2024-03-11 05:39 | XMS_ITS | Encounter Summary ---
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 [address] [facility] [place] Mailstop [phone] [place] [address] [facility] Outpatient Foreign Law Consultant 10/12/21 11/09/21 Roscoe Mccollum MD [address] [facility] [address] [address] Anesthesiologist Pain Management 12/21/21 documented as of this encounter
--- OUTSIDE RECORDS SUMMARY | 2024-03-11 05:39 | XMS_ITS | Encounter Summary ---
Author Organization [facility] Health Address [address] [place] [address] Care Team Providers Care Synthetic Gem Press Operator Name Role Phone Jesse Garcia MD Primary Care Provider [phone] Jona Bravo MD Primary Care Provider [phone] Kirill Jean MD Primary Care Provider [phone] Jona Bravo MD Primary Care Provider [phone] Kirill Jean MD Primary Care Provider [phone] Jona Bravo MD Primary Care Provider [phone] Encounter Details Date Type Department Care Team (Late st Contact Info) Description 08/05/2010 [facility] Out[facility]TERNAL [facility] DEPT Steph Mar, TELETYPE INSTALLER-BANDING MACHINE OPERATOR [address] [place] [address] Social History Tobacco Use Types [...] st Contact Info) Description 04/10/2024 8:30 AM HOUSEHOLD CHORES Office Visit [facility] [place] [address] [place] [address] Soham Hutton MD [address] [place] [address] documented as of this encounter Visit Diagnoses Not on filedocumented in this encounter Care Teams Synthetic Gem Press Operator Relationship Specialty Start Date End Date Jesse Garcia MD [address] [address] PCP - General 11/04/09 06/30/14 Jona Bravo MD [address] [place] [address] PCP - General Internal Medicine 11/29/15 05/23/17 Kirill Jean MD [address] [place] [phone] PCP - General 05/24/17 12/16/17 Jona Bravo MD [address] [place] [address] PCP - General Internal Medicine 12/17/17 03/19/18 Kirill Jean MD [address] [place] [phone] PCP - General 03/20/18 03/25/18 Jona Bravo MD [address] [address] PCP - General Internal Medicine 03/26/18 05/01/18 Kirill Jean MD [address] [place] [phone] PCP - General 05/02/18 06/18/18 Jona Bravo MD [address] [address] PCP - General Internal Medicine 06/19/18 07/31/18 Kirill Jean MD [address] [place] [phone] PCP - General 08/01/18 11/19/18 Kirill Jean MD [address] [place] [phone] PCP - General 02/13/19 09/18/19 Tenisha Tena MD [address] [place] [phone] PCP - General Family Medicine 09/19/19 01/07/20 Kirill Jean MD [address] [place] [address] PCP - General 01/08/20 10/15/22 Jona Bravo MD [address] [place] [phone] PCP - General Internal Medicine 10/16/22 documented as of this encounter
--- OUTSIDE RECORDS SUMMARY | 2024-03-11 05:39 | XMS_ITS | Encounter Summary ---
Author Organization [facility] Address [address] [place] [address] Phone Care Team Providers Care Non Licensed Nuclear Plant Operator Name Role Phone Jona Bravo MD Primary Care Provider + Desire Sams RN Unavailable Un available Pooja [place] LCSW Unavailable [phone] Roscoe Mccollum MD Unavailable [phone] Encounter Details Date Type Department Care Team [...] on file Legal Sex Female 12:46 AM 911 EMERGENCY SERVICES DISPATCHER Gender Identity Female 04/08/2019 6:15 AM 911 EMERGENCY SERVICES DISPATCHER Sexual Orientation Straight 04/08/2019 6: 15 AM 911 EMERGENCY SERVICES DISPATCHER Occupation Industry Job Start Date Job End [...] on filedocumented in this encounter Care Teams Non Licensed Nuclear Plant Operator Relationship Specialty Start Date End Date Jona Bravo MD [address] [place] [address] PCP - General 05/05/16 Desire Sams, RN Registered Nurse 04/03/17 Pooja [place], [facility] [address] [facility] ([facility]) Mailstop [phone] [place] [address] [facility] Outpatient Tool Or Die Drawing Checker 10/12/21 11/09/21 Roscoe Mccollum MD [address] [facility] [address] [place] [address] Anesthesiologist Pain Management 12/21/21 documented as of this encounter
--- OUTSIDE RECORDS SUMMARY | 2024-03-11 05:39 | XMS_ITS | Encounter Summary ---
Author Organization [facility] Address [address] [place] [address] Phone Care Team Providers Care Printing Agent Name Role Phone Jona Bravo MD Primary Care Provider + Desire Sams RN Unavailable Un available Pooja [place] LCSW Unavailable [phone] Roscoe Mccollum MD Unavailable [phone] Encounter Details Date Type Department Care Team [...] on file Legal Sex Female 12:46 AM BOX PRESS OPERATOR Gender Identity Female 04/08/2019 6:15 AM BOX PRESS OPERATOR Sexual Orientation Straight 04/08/2019 6: 15 AM BOX PRESS OPERATOR Occupation Industry Job Start Date Job [...] on filedocumented in this encounter Care Teams Printing Agent Relationship Specialty Start Date End Date Jona Bravo MD [address] [place] [address] PCP - General 05/05/16 Desire Sams, RN Registered Nurse 04/03/17 Pooja [place], [facility] [address] [facility] ([facility] [place]) Mailstop [phone] [place] [address] [facility] Outpatient Dispensing Optician 10/12/21 11/09/21 Roscoe Mccollum MD [address] [place] [address] [address] [place] [address] Anesthesiologist Pain Management 12/21/21 documented as of this encounter
--- OUTSIDE RECORDS SUMMARY | 2024-03-11 05:39 | XMS_ITS | Referral Summary ---
Author Organization [facility] Address [address] [place] [address] Care Team Providers Care Manager Sports Name Role Phone Destinee Conroy MD Primary Care Provider + Desire Sams RN Unavailable Un available Roscoe Mccollum MD Unavailable [phone] Encounters Date Type Department Care Team Description 02/26/2024 Telephone [facility]) - [facility]NT [address] 11th [place] [address] [place] [address] Faby Huerta, 02/18/2024 1:15 PM SPINNER FIXER Office Visit [facility] [place] [facility] [address] [place] [address] Kendrick Hernandez MD Psychophysiological insomnia (Primary Dx); MEREDITH (obstructive sleep apnea); Hypersomnia with sleep apnea 01/17/2024 3:40 PM SPINNER FIXER Office Visit [facility]) - [facility] ENT [address] [facility] [address] [place] [address] Caren Caputo MD S/P insertion of hypoglossal nerve stimulator (Primary Dx); MEREDITH (obstructive sleep apnea) 01/07/2024 1:23 PM SPINNER FIXER - 01/07/2024 6:24 PM SPINNER FIXER Emergency [facility] Emergency Department [address] [place] [address] Ayla Ambrose MD Galicia, Edgar E., MD Post-operative pain (Primary Dx); Secondary hypertension; Acute nonintractable headache, unspecified headache type Discharge Disposition: Discharge to home or self care 01/01/2024 8:30 AM SPINNER FIXER - 01/01/2024 11:00 AM SPINNER FIXER Surgery [facility] Operating Room [address] [place] [address] Caren Caputo MD INSPIRE HYPOGLOSSAL NERVE STIMULATOR IMPLANT 01/01/2024 8:21 AM SPINNER FIXER Anesthesia Event [facility] Operating Room [address] [place] [address] Evette Huddleston Jr., MD Barnhart, Lynlee Jo, NP 01/01/2024 6:29 AM SPINNER FIXER - 01/01/2024 1:16 PM SPINNER FIXER Hospital Encounter [facility] Operating Room [address] [place] [address] Caren Caputo MD MEREDITH (obstructive sleep apnea) (Primary Dx) Discharge Disposition: Discharge to home or self care 12/26/2023 Telephone [facility] [place] [facility] [address] [place] [address] [address] [place] [address] Kendrick Hernandez MD 12/26/2023 Telephone [facility] [place] [facility] [address] [place] [address] [address] [place] [address] Kendrick Hernandez MD 12/24/2023 9:45 AM SPINNER FIXER Pre-Admission Testing [facility] Pre Anesthesia Testing [address] [place] [address] Type 2 diabetes mellitus with other specified complication, unspecified whether ocean transportation intermediary insulin use (HCC) (Primary Dx); Pre-op testing [...] pain 05/10/2021 Degenerative cervical spinal stenosis 09/12/2019 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 Never 10/13/2021 Do you belong to any clubs o r organizations such as confucianist groups, unions, fraternal or athletic groups, or [...] place to sleep or slept in a jail (including now)? No 10/13/2021 Personal Safety Answer Date Recorded Have you ever been in or are you currently in a harmful physical or emotional relationship or is someone making you feel afraid or unsafe? Denies 01/07/2024 Comments No Sex and Gender Information Value Date Recorded Sex Assigned at Not on file Legal Sex Female 12:46 AM SPINNER FIXER Gender Identity Female 04/08/2019 6:15 AM SPINNER FIXER Sexual Orientation Straight 04/08/2019 6: 15 AM SPINNER FIXER Occupation Industry Job Start Date Job End Date On Disability Not on file Not on file Not on file Last Filed Vital Signs Vital Sign Reading Time Taken Comments Blood Pressure 131/81 02/18/2024 1:01 PM SPINNER FIXER Pulse 93 02/18/2024 1:01 PM SPINNER FIXER Temperature 36.2 ??C (97.2 ??F) 01/07/2024 10:[address] Respiratory Rate 18 01/07/2024 6:00 PM SPINNER FIXER Oxygen Saturation 97% 02/18/2024 1:01 PM SPINNER FIXER Inhaled Oxygen Concentration - - Weight 85.3 kg (188 lb) 02/18/2024 1:01 PM SPINNER FIXER Height 165.1 cm (5' 5 ) 02/18/2024 1:01 PM SPINNER FIXER Body Mass Index 31.28 02/18/2024 1:01 PM SPINNER FIXER Plan of Treatment Not on file Medical Devices Implanted Type Area Malt House Loader Device Identifier Shelf Expiration Date Model / Serial / Lot [employer] 180-223 Contour 6fr 26cm Large Inner Lumen Low Profile Bladder Lei Taper Latex Free - [id number] Implanted:Qty: 1 on 04/23/2018 by Christopher Her MD at [facility] Stent Right: Ureter [employer] 11/19/2020 180-223 / / [id number] Plates Screws N/A: Neck [employer] Lead Neurostimulator Sleep Apnea Thoracic Permanent Respiratory Sensing Inspire 43cm 4340 - [id number] - [id number] Implanted:Qty: 1 on 01/01/2024 by Caren Caputo MD at [facility] N/A: Chest [employer] 07/21/2026 4340 / [id number] / [employer] Inspire 3 Electrode Cuff Tunnel José Lead Neurostimulator Sterile 4063 - [id number] - [id number] Implanted:Qty: 1 on 01/01/2024 by Caren Caputo MD at [facility] N/A: Neck [employer] 01/22/2026 4063 / [id number] / [employer] Inspire Generator 3028 - [id number] - [id number] Implanted:Qty: 1 on 01/01/2024 by Caren Caputo MD at [facility] N/A: Chest [employer] 07/22/2026 3028 / [id number] / Procedures Procedure Name Priority Date/Time Associated Diagnosis Comments POCT GLUCOSE DEVICE Routine 01/07/2024 4 :33 PM SPINNER FIXER CTA HEAD NECK W WO CONTRAST ED 01/07/2024 4:19 PM SPINNER FIXER TROPONIN T HIGH-SENSITIVITY 4-HR Timed 01/07/2024 3:24 PM SPINNER FIXER TROPONIN T HIGH-SENSITIVITY 2-HOUR STAT 01/07/2024 1:55 PM SPINNER FIXER XR CHEST PA LATERAL 2 VIEWS ED 01/07/2024 11:29 AM SPINNER FIXER EGFR STAT 01/07/2024 11:11 AM SPINNER FIXER DIFFERENTIAL AUTO STAT 01/07/2024 11: 11 AM SPINNER FIXER TROPONIN T HIGH-SENSITIVITY SERIES (BASELINE, 2HR, 4HR, 6HR) STAT 01/07/2024 11:11 AM SPINNER FIXER COMPREHENSIVE METABOLIC PANEL STAT 01/07/2024 11:11 AM SPINNER FIXER CBC WITH AUTO DIFFERENTIAL STAT 01/07/2024 11:11 AM SPINNER FIXER ECG 12-LEAD STAT 01/07/2024 11:02 AM SPINNER FIXER POCT GLUCOSE DEVICE Routine 01/01/2024 1 1:34 AM SPINNER FIXER XR NECK SOFT TISSUE ED Urgent/IP Urgent 01/01/2024 11:19 AM SPINNER FIXER XR CHEST 1 VIEW ED Urgent/IP Urgent 01/01/2024 11:19 AM SPINNER FIXER POCT GLUCOSE DEVICE Routine 01/01/2024 1 0:54 AM SPINNER FIXER MN AN ELECTIVE ENDOTRACHEAL AIRWAY Routine 01/01/2024 9:06 AM SPINNER FIXER INSPIRE HYPOGLOSSAL NERVE STIMULATOR IMPLANT - INSERTION 01/01/2024 8:20 AM SPINNER FIXER MEREDITH (obstructive sleep apnea) Special Needs DR CAPUTO REQUESTS 150 MINS FOR CASE/10-14 DAYS POST OP POCT GLUCOSE DEVICE Routine 01/01/2024 7 :21 AM SPINNER FIXER EGFR Routine 12/24/2023 11:05 AM SPINNER FIXER Pre-op testing BASIC METABOLIC PANEL Routine 12/24/2023 11:05 AM SPINNER FIXER Pre-op testing DIFFERENTIAL AUTO Routine 12/24/2023 10: 56 AM SPINNER FIXER Pre-op testing CBC WITH AUTO DIFFERENTIAL Routine 12/24/2023 10:56 AM SPINNER FIXER Pre-op testing HEMOGLOBIN A1C Routine 12/24/2023 10:56 AM SPINNER FIXER Type 2 diabetes mellitus with other specified complication, unspecified whether ocean transportation intermediary insulin use (HCC) Pre-op testing URINALYSIS AND REFLEX TO MICROSCOPIC AND CULTURE Routine 12/24/2023 10:56 AM SPINNER FIXER Pre-op testing DEXA AXIAL AND FOREARM BONE [...] Results * POCT glucose (01/07/2024 4:33 PM SPINNER FIXER) Glucose, POC 80 70 - 199 mg/dL Blood 01/07/2024 4:33 PM SPINNER FIXER 01/07/2024 4:33 PM SPINNER FIXER us Mars Montano MD LAB POCT ORDERABLES - DEVICE Final Result [facility] ([place]) [address] Department [place] [address] * CTA Head Neck W WO Contrast (01/07/2024 4:19 PM SPINNER FIXER) Anatomical Region Laterality Modality Head and Neck N/A Computed Tomogra phy 01/07/2024 4:43 PM SPINNER FIXER Narrative 01/07/2024 5:02 PM SPINNER FIXER EXAM DESCRIPTION: ?? CTA HEAD NECK W [...] prominent at C6-C7 where there is likely zcuc-ud-yrrxzglz spinal canal stenosis. IMPRESSION: BRAIN: No acute [...] PM T: ??01/07/2024 5:02 PM Report ID: [id number] Reading Location: ??[id number] Procedure Note Nigel Mei MD - 01/07/2024 [...] There is an implantable medical generator within [facility] which per provided clinical history represents [...] prominent at C6-C7 where there is likely onxf-rv-jvfksvrj spinal canal stenosis. IMPRESSION: BRAIN: No acute intracranial process identified. Chronic left basal ganglia infarct. INTRACRANIAL CTA: 1. No large vessel occlusion or significant intracranial stenosis identified. 2. Mild luminal irregularity of the left middle cerebral artery N0aleybl without stenosis likely represents intracranial atherosclerotic disease. [...] Nigel Mei M.D. MM: MM Report ID: [id number] Reading Location: [place] [address] Ayla Ambrose MD [facility] [place] PROCEDURES F inal Result * Troponin T high-sensitivity 4-hour (01/07/2024 3:24 PM SPINNER FIXER) Trop T hs <6 <=14 ng/L Comment: Interpretive Data For further hscTnT resources including the diagnostic algorithm and an aid in interpretation, copy and paste this link: https://nrl.testcatalog.org/show/hsTrop Current Interpretive Data last revised 2019. Trop T hs delta 0 ng/L [facility] ([place]) Trop T hs interp Insignificant [facility] ([place]) Blood 01/07/2024 3:24 PM SPINNER FIXER 01/07/2024 3:26 PM SPINNER FIXER us Ayla Ambrose MD LAB BLOOD ORDERABLE S Final Result Performing Organization Address City/[facility]/ZIP Co de Phone Number [facility] ([place]) [address] Department [place] [address] * Troponin T high-sensitivity 2-hour (01/07/2024 1:55 PM SPINNER FIXER) Trop T hs <6 <=14 ng/L Comment: Interpretive Data For further hscTnT resources including the diagnostic algorithm and an aid in interpretation, copy and paste this link: https://nrl.testcatalog.org/show/hsTrop Current Interpretive Data last revised 2019. Trop T hs delta 0 ng/L [facility] ([place]) Trop T hs interp Insignificant [facility] ([place]) Blood 01/07/2024 1:55 PM SPINNER FIXER 01/07/2024 1:56 PM SPINNER FIXER us Ayla Ambrose MD LAB BLOOD ORDERABLE S Final Result Performing Organization Address [facility] Co de Phone Number [facility] ([place]) [address] [facility] Department [place] [address] * XR Chest PA Lateral 2 Views (01/07/2024 11:29 AM SPINNER FIXER) Anatomical Region Laterality Modality Body, Chest N/A Computed Radiogr aphy 01/07/2024 11:3 7 AM SPINNER FIXER Narrative 01/07/2024 11:41 AM SPINNER FIXER EXAM DESCRIPTION: XR CHEST PA LATERAL 2 [...] AM T: ??01/07/2024 11:41 AM Report ID: [id number] Reading Location: ??[id number] Procedure Note Destinee Pichardo MD - 01/07/2024 [...] Destinee Pichardo M.D. AG: ZITA Report ID: [id number] Reading Location: [id number] Ayla Ambrose MD IMG XR PROCEDURES F inal Result * Troponin T high-sensitivity series (baseline, 2hr, 4hr, 6hr) (01/07/2024 11:11 AM SPINNER FIXER) Trop T hs <6 <=14 ng/L Comment: Interpretive Data For further hscTnT resources including the diagnostic algorithm and an aid in interpretation, copy and paste this link: https://nrl.testcatalog.org/show/hsTrop Current Interpretive Data last revised 2019. Blood 01/07/2024 11:1 1 AM SPINNER FIXER 01/07/2024 11:14 AM SPINNER FIXER Ayla Ambrose MD LAB BLOOD ORDERABLE S Final Result Performing Organization Address City/State/[facility] Co de Phone Number [facility] [place]) [address] [facility] Department [place] [address] * eGFR (01/07/2024 11:11 AM SPINNER FIXER) Pathologist [facility] eGFR >90 >=60 mL/min/1. 73 [...] reviewed 2020. Blood 01/07/2024 11:1 1 AM SPINNER FIXER 01/07/2024 11:14 AM SPINNER FIXER us Ayla Ambrose MD LAB BLOOD ORDERABLE S Final Result [facility] ([place]) [address] [facility] Department [place] [address] * Differential, auto (01/07/2024 11:11 AM SPINNER FIXER) Neutrophil abs 3.3 1.5 - 6.5 K/cumm [...] on 2017. Blood 01/07/2024 11:1 1 AM SPINNER FIXER 01/07/2024 11:15 AM SPINNER FIXER us Ayla Ambrose MD LAB BLOOD ORDERABLE S Final Result [facility] ([place]) [address] [facility] Department [place] [address] * (ABNORMAL) CBC with auto differential (01/07/2024 11:11 AM SPINNER FIXER) WBC 5.9 3.8 - 9.9 K/cumm Hgb [...] ([place]) Blood (Blood, Venous) 01/07/2024 11:11 AM SPINNER FIXER 01/07/2024 11:15 AM SPINNER FIXER us Ayla Ambrose MD LAB BLOOD ORDERABLE S Final Result [facility] ([place]) [address] [facility] Department [place] [address] * (ABNORMAL) Comprehensive metabolic panel (01/07/2024 11:11 AM SPINNER FIXER) Sodium 141 135 - 145 mmol/L Potassium, [...] [facility] ([place]) Blood 01/07/2024 11:1 1 AM SPINNER FIXER 01/07/2024 11:14 AM SPINNER FIXER Ayla Ambrose MD LAB BLOOD ORDERABLE S Final Result Performing Organization Address City/[facility] Co de Phone Number [facility] ([place]) [address] [facility] Department [place] [address] * ECG 12 lead (01/07/2024 11:02 AM SPINNER FIXER) 01/07/2024 11:0 2 AM SPINNER FIXER Narrative [facility] - 01/08/2024 1:40 AM SPINNER FIXER Vent Rate: 76 bpm RR Interval: 786 msec MN Interval: 142 msec QRS Duration: 84 msec QT Interval: 371 msec QTC Interval: 401 msec P-R-T [place]: 48 - 22 - 67 degrees IMPRESSION: SINUS RHYTHM MINIMAL VOLTAGE CRITERIA FOR LVH, CONSIDER NORMAL VARIANT ??[MEETS CRITERIA IN ONE OF: R(aVL), S(V1), R(V5), R(V5/V6)+S(V1)] NONSPECIFIC T-WAVE ABNORMALITY BORDERLINE ECG Electronically Signed By: Supa Ernandez MD Ayla Ambrose MD ECG ORDERABLES Fin al Result Performing Organization Address City/[facility]/ZIP Co de Phone Number [employer] [facility] * POCT glucose (01/01/2024 11:34 AM SPINNER FIXER) Glucose, POC 131 70 - 199 mg/dL Blood 01/01/2024 11:3 4 AM SPINNER FIXER 01/01/2024 11:34 AM SPINNER FIXER Caren Caputo MD LAB POCT ORDERABLES - DEVICE Final Result [facility] [address] [facility] Department [place] [address] * XR Neck Soft Tissue (01/01/2024 11:19 AM SPINNER FIXER) Anatomical Region Laterality Modality Head and Neck N/A Computed Radiogr aphy 01/01/2024 12:0 1 PM SPINNER FIXER Impressions 01/01/2024 12:01 PM SPINNER FIXER Postoperative change of hypoglossal nerve stimulator as described. Electronically signed by: Octavia Chavez M.D. Narrative 01/01/2024 12:01 PM SPINNER FIXER EXAMINATION: XR NECK SOFT TISSUE HISTORY: lateral [...] Chest 1 Vw Portable (01/01/2024 11:19 AM SPINNER FIXER) Anatomical Region Laterality Modality Body, Chest N/A Computed Radiogr aphy 01/01/2024 11:3 6 AM SPINNER FIXER Impressions 01/01/2024 11:36 AM SPINNER FIXER No pneumothorax seen. Electronically signed by: Man Becerra M.D. Narrative 01/01/2024 11:36 AM SPINNER FIXER EXAMINATION: XR CHEST 1 VIEW HISTORY: The [...] Result * POCT glucose (01/01/2024 10:54 AM SPINNER FIXER) Glucose, POC 122 70 - 199 mg/dL Blood 01/01/2024 10:5 4 AM SPINNER FIXER 01/01/2024 10:54 AM SPINNER FIXER Caren Caputo MD LAB POCT ORDERABLES - DEVICE Final Result [facility] [address] Department [place] [address] * MN AN ELECTIVE ENDOTRACHEAL AIRWAY (01/01/2024 9:06 AM SPINNER FIXER) Narrative Elham Barber AA - 01/01/2024 9:06 AM SPINNER FIXER Elham Barber AA ? 01/01/2024 ??9:07 AM [...] Result * POCT glucose (01/01/2024 7:21 AM SPINNER FIXER) [facility] Glucose, POC 89 70 - 199 mg/dL Blood 01/01/2024 7:21 AM SPINNER FIXER 01/01/2024 7:21 AM SPINNER FIXER us Caren Caputo MD LAB POCT ORDERABLES - DEVICE Final Result [facility] [address] Department [place] [address] * eGFR (12/24/2023 11:05 AM SPINNER FIXER) [facility] eGFR >90 >=60 mL/min/1. 73 m2 [...] reviewed 2020. Blood 12/24/2023 11:0 5 AM SPINNER FIXER 12/24/2023 11:05 AM SPINNER FIXER us Ivet Hoyos CISTERN ROOM OPERATOR LAB BLOOD ORDERABLES Final Res ult [facility] [address] [address] Department [place] [address] * Basic metabolic panel (12/24/2023 11:05 AM SPINNER FIXER) Sodium 145 135 - 145 mmol/L Potassium, pl 4.0 3.3 - 4.9 mmol/L [facility] Chloride 109 97 - 110 mmol/L [facility] CH CO2 28 22 - 32 mmol/L [facility] CH Anion gap 8 2 - 15 mmol/L [facility] BUN 19 6 - 25 mg/dL [facility] Creatinine 0.68 0.60 - 1.10 mg/dL [facility] Glucose 72 70 - 199 mg/dL [facility] Comment: Interpretive Data Fasting glucose >/= 126 [...] 2022. Calcium 9.1 8.5 - 10.3 mg/dL [facility] Blood 12/24/2023 11:0 5 AM SPINNER FIXER 12/24/2023 11:05 AM SPINNER FIXER us Ivet Hoyos CISTERN ROOM OPERATOR LAB BLOOD ORDERABLES Final Res ult [facility] [address] [address] Department [place] [address] * Differential, auto (12/24/2023 10:56 AM SPINNER FIXER) Neutrophil abs 3.1 1.5 - 6.5 K/cumm Imm gran abs 0.0 0.0 - 0.1 K/cumm [facility] Lymphocyte abs 1.6 0.8 - 3.3 K/cumm [facility] Monocyte abs 0.6 0.2 - 0.8 K/cumm [facility] Eosinophil abs 0.1 0.0 - 0.5 K/cumm [facility] Basophil abs 0.0 0.0 - 0.1 K/cumm [facility] Neutrophil pct 57.4 % [facility] Comment: Interpretive Data Percent cell count reference ranges are not reported, since discordance with absolute values may lead to misinterpretation of CBC data. Current Interpretive Data was last revised on 2017. Imm gran pct 0.4 % [facility] Comment: Interpretive Data Percent cell count reference [...] on 2017. Blood 12/24/2023 10:5 6 AM SPINNER FIXER 12/24/2023 11:08 AM SPINNER FIXER us Ivet Hoyos CISTERN ROOM OPERATOR LAB BLOOD ORDERABLES Final Res ult [facility] [address] [address] Department [place] [address] * Urinalysis reflex to microscopic and culture Urine, clean voided (12/24/2023 10:56 AM SPINNER FIXER) Color, ur Yellow Yellow Clarity, ur Clear Clear [facility] Specific gravity, ur 1.017 1.003 - 1.030 [facility] pH, urine 6.0 [facility] Comment: Interpretive Data ? Urine pH is affected by diet, medications, systemic acid-base disturbances, and renal tubular function. ??pH may affect urinary stone formation. ??For example, urine pH below 6.0 may help reduce the tendency for calcium phosphate stones and pH greater than 6.0 may reduce the tendency for uric acid stone formation. Source: [facility] [employer] Current Interpretive Data was last revised on [...] [facility] Urine, clean voided 12/24/2023 10:56 AM SPINNER FIXER 12/24/2023 12:24 PM SPINNER FIXER us Caren Caputo MD LAB MICROBIOLOGY - GEN ERAL ORDERABLES Final Result [facility] [address] [address] Department [place] [address] * (ABNORMAL) CBC with auto differential (12/24/2023 10:56 AM SPINNER FIXER) WBC 5.4 3.8 - 9.9 K/cumm Hgb [...] [facility] CH Blood 12/24/2023 10:5 6 AM SPINNER FIXER 12/24/2023 11:08 AM SPINNER FIXER us Ivet Hoyos NP LAB BLOOD ORDERABLES Final Res ult [facility] [address] [address] Department [place] [address] * Hemoglobin A1c (12/24/2023 10:56 AM SPINNER FIXER) Hgb A1C 5.0 4.0 - 5.6 % Estimated Average Glucose 97 mg/dL [facility] Comment: The ADA recommends reporting an estimated Average Glucose (eAG) with all Hemoglobin A1c results using the equation derived from a study of 507 normal and diabetic adults. ??Minority populations were underrepresented and children were not included. ?? (Diabetes Care 31:4848-3223, 2008). ??The eAG is not equivalent to a fasting glucose. Blood 12/24/2023 10:5 6 AM SPINNER FIXER 12/24/2023 11:08 AM SPINNER FIXER Ivet Hoyos CISTERN ROOM OPERATOR LAB BLOOD ORDERABLES Final Res ult Performing Organization Address [facility] Co de Phone Number [facility] [address] [address] Department [place] [address] * Dexa Axial and Forearm Bone Density Scan (09/08/2022 1:34 PM CDT) Anatomical Region Laterality Modality Wrist, Body N/A Other 09/09/2022 6:09 AM CDT Narrative 09/09/2022 6:11 AM CDT EXAM DESCRIPTION: DEXA AXIAL AND FOREARM BONE DENSITY SCAN REASON FOR STUDY: 62 y/o ?? year old ??F ??with given history of: ?? Hyperparathyroidism. ??Postmenopausal status. ??Osteoporosis. ? Malt House Loader/Model: [employer] SL (S/N [id number]) CLINICAL INFORMATION: Current height: ??63.5 ??inches ? [...] AM T: ??09/09/2022 6:11 AM Report ID: [id number] Reading Location: ??[id number] Procedure Note Cecy Ratliff MD - 09/09/2022 EXAM DESCRIPTION: DEXA AXIAL AND FOREARM BONE DENSITY SCAN REASON FOR STUDY: 62 y/o year old F with given history of: Hyperparathyroidism. Postmenopausal status. Osteoporosis. Malt House Loader/Model: [employer]house (S/N [id number]) CLINICAL INFORMATION: Current height: 63.5 inches Maximum [...] Cecy Ratliff M.D. TW: BAKARI Report ID: [id number] Reading Location: [place] [address] Dylan Raul To MD IM DXA PROCEDURES [...] Cholesterol 139 30 - 199 mg/dL [facility] Comment: Interpretive Data Ages < [...] on 2017. Triglycerides 36 <=149 mg/dL [facility] Comment: Interpretive Data Ages < [...] on 2017. HDL 72 >=40 mg/dL [facility] Comment: Interpretive Data Ages < [...] 2017. LDL, calculated 60 <=129 mg/dL [facility] Comment: Interpretive Data Ages < [...] BLOOD ORDERABLES Final Result [facility]MONS [facility] Department [place] [address] from Last 3 Months or Most Recently Relevant to Health Maintenance Insurance [place] Advance Directives For more information, please contact: [phone] * Full Code (Latest Code Status on File) Date Activated Date Inactivated Comments 10/10/2021 5:37 PM 10/11/2021 8:50 PM * Full Code Date Activated Date Inactivated Comments 08/18/2017 6:39 PM 08/22/2017 3:42 PM Care Teams Manager Sports Relationship Specialty Start Date End Date Destinee Conroy MD [address] [place] [address] PCP - General 05/05/16 Desire Sams, BRICE Registered Nurse 04/03/17 Roscoe Mccollum MD [address] [place] [address] [address] Anesthesiologist Pain Management 12/21/21
--- OUTSIDE RECORDS SUMMARY | 2024-03-11 05:39 | XMS_ITS | Referral Summary ---
Author Organization [facility] Address [address] [place] [address] Care Team Providers Care Insulation Machine Operator Name Role Phone Jona Bravo MD Primary Care Provider Source Comments [facility],non-owned Affiliates and Associated Physician Practices is amultiple site organization consisting of ambulatory clinics and hospital sitesin [place], [place], [place] and [place]. This disclosure is being madepursuant to the Care Everywhere program and may not contain all information available regarding this patient. Last updated 17.[facility] Allergies Active Allergy Reactions Criticality Noted Date [...] Units/L by mouth once daily Active Biotin 15841 MCG TBDP Take 1 tablet by mouth [...] mouth once daily 04/21/2021 Active nystatin (NYSTOP) 189066 UNIT/GM powder APPLY POWDER TOPICALLY TO AFFECTED [...] 01/15/08: Lap banding by Dr. Claros at [facility] Had a port leak with subsequent [...] st Contact Info) Description 04/10/2024 8:30 AM PEDIATRIC REGISTERED NURSE Office Visit [facility] - GI [address] [place] [address] Soham Hutton MD [address] [place] [address] Procedures Procedure Name Priority Date/Time Associated Diagnosis [...] 29 U/L [facility] Comment: Test Performed at: [facility] [address] ??[phone] ARACELY DANIEL MD 06/05/2022 10:4 9 AM CDT 06/05/2022 10:50 AM CDT Ivette Alyson Monteiro OFFICE COORDINATOR-PRODUCT DEVELOPMENT SPECIALIST LAB - LEORA ZAID ORDERABLES [facility] [address] [place] [address] * ENDOSCOPY, COLON, SCREENING (08/03/2020 9:10 AM [...] Procedure Code(s): ? --- Professional --- ? 35854, Colonoscopy, flexible; with biopsy, single or multiple Diagnosis Code(s): ?--- Professional --- ?Z86.010, Personal history of colonic polyps ?K63.5, Polyp of colon ?K57.30, Diverticulosis of large intestine without ?perforation or abscess without bleeding CPT copyright 2019 [employer]. All rights reserved. The codes documented in this report are preliminary and upon physician coder review may be revised to meet current compliance requirements. Soham Farley MD 08/03/2020 10:38:53 AM This report has been signed electronically. Note Initiated On: 08/03/2020 9:10 AM Number of Addenda: 0 ? [facility] ? [address] [place], [place] [id number] [place] [address] PROVATION 08/03/2020 9:10 AM CDT Soham Hutton MD GI PROCEDU RE ORDERABLES [facility] PROVATION * HEMOGLOBIN A1C (07/23/2008 11:32 AM CDT) Hemoglobin A1c 5.7 3.9 - 6.1 % [facility] Estimated Average Glucose 116.9 mg/dl [facility] BLOOD SPECIMEN / Unknown 07/23/2008 11:32 AM CDT Narrative [facility] - 07/23/2008 9:23 PM CDT [phone] Resulting Agency Comment Performed By [facility] - [facility] ? [address] ? [place] [address] Scott Claros MD LAB - CHEMISTRY O RDERABLES [facility] [address] [place] [address] from Last 3 Months or Most Recently Relevant to Health Maintenance Advance Directives * Full Code (Latest Code Status on File) Date Activated Date Inactivated Comments 06/19/2018 5:17 PM 06/20/2018 8:12 PM * Full Code Date Activated Date Inactivated Comments 12/24/2017 11:20 AM 12/25/2017 12:40 PM Care Teams Insulation Machine Operator Relationship Specialty Start Date End Date Jona Bravo MD [address] [place] [address] PCP - General Internal Medicine 10/16/22
--- OUTSIDE RECORDS SUMMARY | 2024-03-11 05:39 | XMS_ITS | Clinical Summary ---
Author Organization [facility] Address [address] [place] [address]. [place] [address] [place] [address] Care Team Providers Care Ballet Teacher Name Role Phone Unavailable Primary Care Provider [...]
--- OUTSIDE RECORDS SUMMARY | 2024-03-11 05:39 | XMS_ITS | Clinical Summary ---
Author Organization [facility] Address [address] [place] [address] Phone Care Team Providers Care Bindery Chief Name Role Phone Jona Bravo MD Primary Care Provider [phone] Allergies Active Allergy Reactions Criticality Noted Date [...] ipratropium bromide (ATROVENT) 21 mcg (0.03 %) [place], Non-Aerosol Administer 2 Sprays in each nostril [...] Description 03/10/2024 External Device Data Initial Department [address] [place] [address] Dr CANCHOLA: [place] [address] [facility] 03/05/2024 External Device Data Initial Department [address] [place] [address] Dr CANCHOLA: Prelude ADT [place] [address] [facility] 03/03/2024 External Device Data Initial Department [address] [place] [address] Dr CANCHOLA: [place] [address] [facility], 02/27/2024 External Device Data STL ABSTRACTION Provider, Abstract 02/27/2024 External Device Data Initial Department [address] [facility] [address] CANCHOLA: [place] [address] [facility], 02/26/2024 External Device Data STL ABSTRACTION Provider, Abstract 02/26/2024 Refill [facility] [address] [place] [address] Jona Bravo MD 02/26/2024 Abstract [facility] [address] [place] [address] Jona Bravo MD 02/25/2024 External Device Data Initial Department [address] [facility] [address] CANCHOLA: [place] [address] [facility], 02/23/2024 Telephone [facility] [address] [place] [address] Boo Parrish RN [facility] Supervisor [employer] 02/20/2024 External Device Data Initial Department [address] [facility] [address] SHEARERN: [place] [address] [facility], 02/19/2024 External Device Data STL ABSTRACTION Provider, Abstract 02/19/2024 [place] [address] [facility] [address] [place] [address] Jona Bravo MD 02/18/2024 Telephone [facility] [address] [place] [address] Shivani Winston FNP [facility] 02/18/2024 External Device Data Initial Department [address] [facility] [address] CANCHOLA: [place] [address] [facility], 02/15/2024 Refill [place] [address] [place] [address] Jona Bravo MD 02/13/2024 3:20 PM BODY MAKER Office Visit [facility] [address] [phone] Jona Bravo MD Other hyperlipidemia (Primary Dx); DM type 2, goal HbA1c < 7% ([facility]); Other asthma; Visit for screening mammogram; Vitamin D deficiency; Other specified hypothyroidism; Essential hypertension 02/13/2024 Abstract [facility] [address] [facility] [address] [place] [address] Jona Bravo MD 02/13/2024 External Device Data Initial Department [address] [place] [address] Dr CANCHOLA: [place] [address] Gio Villavicencio Md 02/13/2024 [facility] [address] [address] Katlin Cohen RN [facility] 02/12/2024 External Device Data STL ABSTRACTION Provider, Abstract 02/11/2024 [place] [address] [phone] Jona Bravo MD Clinical Consult Before Scheduling 02/11/2024 [facility] [address] [address] Courtney Eli RN [facility] 02/11/2024 External Device Data Initial Department [address] [place] [address] Dr CANCHOLA: [place] [address] Gio Villavicencio Md 2024 12:00 PM BODY MAKER Ancillary Procedure [facility] [address] [place] [address] Pj Sepulveda MD Right ureteral stone 2024 11:30 AM BODY MAKER Ancillary Procedure [facility] [address] [place] [address] Pj Sepulveda MD Kidney stones 2024 External Device Data Initial Department [address] [place] [address] Dr CANCHOLA: [place] [address] Gio Villavicencio Md 01/28/2024 External Device Data Initial Department [address] [place] [address] Dr CANCHOLA: [place] [address] [facility], 01/23/2024 External Device Data Initial Department [address] [place] [address] Dr CANCHOLA: [place] [address] [facility], 01/21/2024 External Device Data Initial Department [address] [place] [address] Dr CANCHOLA: [place] [address] [facility], 01/16/2024 External Device Data Initial Department [address] [place] [address] Dr CANCHOLA: [place] [address] [facility], 01/14/2024 External Device Data Initial Department [address] [place] [address] Dr CANCHOLA: [place] [address] [facility], 01/10/2024 1:30 PM BODY MAKER Video Visit [facility] [place] [address] [place] [address] Scott Wong, ALYSA Nonintractable headache, unspecified chronicity pattern, unspecified headache type (Primary Dx); Primary hypertension; Anxiety state 01/10/2024 Refill [facility] [address] [place] [address] Scott Wong, ALYSA Nonintractable headache, unspecified chronicity pattern, unspecified headache type (Primary Dx) 01/09/2024 External Device Data Initial Department [address] [place] [address] Dr CANCHOLA: [address] [place], [place] [address]Sabine Villavicencio, 01/07/2024 External Device Data Initial Department [address] [place] [address] Dr CANCHOLA: [address] [place], [place] [address]Sabine [facility], 01/05/[address] [phone] Elham Yung RN [facility] [employer] 01/02/2024 External Device Data Initial Department [address] [facility] [address] CANCHOLA: [address] [place], [place] [address]Sabine [facility] 12/31/2023 External Device Data Initial Department [address] [facility] [address] CANCHOLA: [address] [place], [place] [address]Sabine Villavicencio Md 12/31/2023 Refill [facility] [address] [place] [address] Jona Bravo MD 12/28/2023 Abstract [facility] [address] [place] [address] Provider, Abstract 12/26/2023 External Device Data Initial Department [address] [place] [address] Dr SHEARERN: [place] [address] [facility], 12/24/2023 External Device Data Initial Department [address] [place] [address] Dr SHEARERN: [place] [address] [facility], 12/19/2023 External Device Data Initial Department [address] [place] [address] Dr SHEARERN: [place] [address] [facility], 12/17/2023 External Device Data Initial Department [address] [place] [address] Dr CANCHOLA: [place] [address] [facility], 12/12/2023 External Device Data Initial Department [address] [place] [address] Dr CANCHOLA: [place] [address] [facility], 12/10/2023 External Device Data Initial Department [address] [place] [address] Dr SHEARERN: [place] [address] [facility], from Last 3 Months Immunizations [...] COVID-19 VACCINE - EMERGENCY USE AUTHORIZATION, MRNA, [id number](PF) 30 MCG/0.3 ML IM SUSP 12/12/2020,04/29/2020,04/08/2020 (PNEUMOVAX 23)(50 YRS UP) PN EUMOCOCCAL POLYSACCHARIDE (PPV23) 0.5 ML, IM 05/30/2016 (PREVNAR 13)(6 WKS UP) PNEUM OCOCCAL CONJUGATE (PCV13) 0.5 ML, IM 09/16/2014 (PREVNAR 20)(6 WKS UP) PNEUM OCOCCAL CONJUGATE VACCINE 20-VALENT (PCV20), POLYSACCHARIDE HUV727 CONJUGATE, ADJUVANT 0.5 ML (PF) IM 02/10/2022 [...] any clubs o r organizations such as anabaptism groups, unions, fraternal or athletic groups, or [...] on file Legal Sex Female 9:43 AM BODY MAKER Gender Identity Not on file Sexual Orientation Not on file 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 Not on file Not on file Last Filed Vital Signs Vital Sign Reading Time Taken Comments Blood Pressure 121/84 02/13/2024 3:13 PM BODY MAKER Pulse 88 02/13/2024 3:03 PM BODY MAKER Temperature 36.4 ??C (97.6 ??F) 11/26/2023 3:04 PM CD T Respiratory Rate 18 11/26/2023 3:04 PM CDT Oxygen Saturation 93% 02/13/2024 3:03 PM BODY MAKER Inhaled Oxygen Concentration - - Weight 85.3 kg (188 lb) 02/13/2024 3:03 PM BODY MAKER Height 160 cm (5' 3 ) 02/13/2024 3:03 PM BODY MAKER Body Mass Index 33.3 02/13/2024 3:03 PM BODY MAKER Plan of Treatment Upcoming Encounters Date Type Department Care Team (Late st Contact Info) Description 04/23/2024 1:20 PM CDT Office Visit [address] [place] [address] Jona Bravo MD [address] [place] [address] [address] [place] [address] 08/25/2024 10:40 AM CDT Office Visit [address] [place] [address] Jona Bravo MD [address] [place] [address] [address] [place] [address] Health Maintenance Due Date Last Done Comments [...] history exists Medical Devices Implanted Type Area Explosive Operator Grenade Device Identifier Shelf Expiration Date Model / Serial / Lot Lap Band Bladder Sling Procedures Procedure Name Priority Date/Time Associated Diagnosis Comments HEMOGLOBIN A1C Routine 02/13/2024 3:36 PM BODY MAKER XR ABDOMEN 1 VW Routine 2024 11:27 AM BODY MAKER Right ureteral stone CT ABDOMEN PELVIS WO CONTRAST Routine 2024 11:27 AM BODY MAKER Kidney stones MICROALBUMIN/CREATI NINE RATIO, RANDOM UR Routine 11/26/2023 4:09 PM CDT DM type 2, goal HbA1c < 7% ([facility]) LIPID PANEL Routine 02/08/2023 11:08 AM BODY MAKER Other hyperlipidemia MAMMO SCREEN BILAT W OR WO CAD Routine 09/08/2022 2:51 PM CDT XR DEXA BONE DENSITY AXIAL 1 OR MORE SITES Routine 09/20/2020 Menopause HX COLONOSCOPY Routine 08/03/2020 from Last 3 Months or Most Recently Relevant to Health Maintenance Results * HEMOGLOBIN A1C (02/13/2024 3:36 PM BODY MAKER) ABSTRACTED HGB A1C 5.7 % [facility] Blood 02/13/2024 3:36 PM BODY MAKER Jona Bravo MD CHEMISTRY ORDERABLES Final Re sult [facility] CLIA# [id number] [address] [place] [address] * XR ABDOMEN 1 VW (2024 11:27 AM BODY MAKER) Anatomical Region Laterality Modality Abdomen Computed Radiogr aphy 2024 11:2 7 AM BODY MAKER Impressions 2024 11:42 AM BODY MAKER Findings/impression: The bowel gas pattern is nonobstructive. Multiple pelvic calcifications are noted which are best appreciated on the most recent CT. Small bilateral renal calculi are also noted. Narrative 2024 11:42 AM BODY MAKER EXAM: XR ABDOMEN 1 VW DATE: 2024 [...] ABDOMEN PELVIS WO CONTRAST (2024 11:27 AM BODY MAKER) Anatomical Region Laterality Modality Abdomen Computed Tomogra phy 2024 11:1 8 AM BODY MAKER Impressions 2024 11:45 AM BODY MAKER IMPRESSION: Bilateral nonobstructing renal calculi measuring up to 5 mm. No obstructive uropathy appreciated. Narrative 2024 11:45 AM BODY MAKER EXAM: CT ABDOMEN PELVIS WO CONTRAST DATE: [...] 5 mm. No obstructive uropathy appreciated. us jP Sepulveda MD CT ORDERABLES Final Result * MICROALBUMIN/CREATININE RATIO, RANDOM UR (11/26/2023 4:09 PM CDT) Creatinine, Urine 195 20 - 275 mg/dL [facility] MICROALBUMIN, URINE 2.8 See Note: mg/dL [facility] Comment: Reference Range: Reference Range Not established MICROALBUMIN/CREAT RATIO, UR 14 <30 mg/g creat [facility] Comment: The ADA defines abnormalities in [...] within a diagnostic category. Test Performed at: [facility] [address] [place], [place] ??[phone] Law Nathan MD Urine URINE SPECIMEN OBTAINED BY CLEAN CATCH PROCEDURE / Unknown 11/26/2023 4:09 PM CDT 11/27/2023 6:37 AM CDT us Jona Bravo MD URINE ORDERABLES Final Result [facility] [phone] [facility] [address] [place] [address] * LIPID PANEL (02/08/2023 11:08 AM BODY MAKER) CHOLESTEROL 168 <200 mg/dL [facility] HDL 77 > OR = 50 mg/dL [facility] TRIGLYCERIDE 45 <150 mg/dL [facility] LDL CALCULATED 78 mg/dL (calc) [facility] Comment: Reference range: <100 Desirable range <100 mg/dL for primary prevention; ?? <70 mg/dL for patients with CHD or diabetic patients with > or = 2 CHD risk factors. LDL-C is now calculated using the Shannan calculation, which is a validated novel method providing better accuracy than the Friedewald equation in the estimation of LDL-C. Tai SANDHU et al. YONI. 2013;310(19): 5677-6220 (http://education.[employer]/faq/ESA840) CHOL/HDL RATIO 2.2 <5.0 (calc) [facility] TOTAL NON-HDL CHOL(LDL+VLDL) 91 <130 mg/dL (calc) [facility] Comment: For patients with diabetes plus 1 major ASCVD risk factor, treating to a non-HDL-C goal of <100 mg/dL (LDL-C of <70 mg/dL) is considered a therapeutic option. Test Performed at: [facility] [address] [place], [place] ??[address] Law Nathan MD Blood 02/08/2023 11:0 8 AM BODY MAKER 02/08/2023 11:09 AM BODY MAKER us Jona Bravo MD CHEMISTRY ORDERABLES Final Re sult Performing Organization Address [facility] Co de Phone Number [facility] [phone] [facility] [address] [place] [address] * MAMMO SCREEN BILAT W OR WO [...] d Result - Final Performing Organization Address City/[facility]/ZIP Co de Phone Number EXTERNAL LAB from Last 3 Months or Most Recently Relevant to Health Maintenance Insurance MEDICARE PART A AND B BS BLUE PREFERRED Commercial MEDICARE PART A AND B BCBS BLUE PREFERRED Advance Directives For more information, please contact: [phone] * Full Code (Latest Code Status on File) Date Activated Date Inactivated Comments 03/02/2017 8:56 PM 03/05/2017 9:44 PM * Full Code Date Activated Date Inactivated Comments 07/17/2014 10:57 AM 07/17/2014 4:49 PM * Full Code Date Activated Date Inactivated Comments 04/24/2014 2:54 PM 04/24/2014 8:53 PM * Full Code Date Activated Date Inactivated Comments 04/24/2014 11:13 AM 04/24/2014 2:54 PM Care Teams Bindery Chief Relationship Specialty Start Date End Date Jona Bravo MD PCP - General Internal Medicine 11/25/15
--- OUTSIDE RECORDS SUMMARY | 2024-03-11 05:39 | XMS_ITS | Encounter Summary ---
Author Organization [facility] Address [address] [place] [address] Care Team Providers Care Structures Technician Name Role Phone Jona Bravo MD Primary Care Provider Reason for Visit * Reason Onset Date Comments Red flag- Severe Pain 08/14/2022 Encounter Details Date Type Department Care Team (Late st Contact Info) Description 08/14/2022 Telephone [facility] [address] [place] [address] Jona Bravo MD [address] [place] [address] [address] [place] [address] Red flag- Severe Pain Social [...] any clubs o r organizations such as nondenominational groups, unions, fraternal or athletic groups, or [...] on file Legal Sex Female 9:43 AM HYDRO PLANT SITE MANAGER Gender Identity Not on file Sexual [...] and suggested an injection. Call back number: [phone] (home) Home Phone Work Phone documented in this encounter Plan of Treatment Upcoming Encounters Date Type Department Care Team (Late st Contact Info) Description 04/23/2024 1:20 PM CDT Office Visit [address] [place] [address] Jona Bravo MD [address] [place] [address] [address] [place] [address] 08/25/2024 10:40 AM CDT Office Visit [address] [place] [address] Jona Bravo MD [address] [place] [address] documented as of this encounter Visit Diagnoses Not on filedocumented in this encounter Care Teams Structures Technician Relationship Specialty Start Date End Date Jona Bravo MD PCP - General Internal Medicine 11/25/15 documented as of this encounter
--- OUTSIDE RECORDS SUMMARY | 2024-03-11 05:39 | XMS_ITS | Clinical Summary ---
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 11th [place] [address] [place] [address] Bradley FabyMS rakel 02/18/2024 1:15 PM SKATING CARHOP Office Visit [facility] [address] [facility] [address] [place] [id number] Kendrick Hernandez MD Psychophysiological insomnia (Primary Dx); MEREDITH (obstructive sleep apnea); Hypersomnia with sleep apnea 01/17/2024 3:40 PM SKATING CARHOP Office Visit [facility]) - [facility] ENT [address] [facility] [address] [place] [phone] Caren Caputo MD S/P insertion of hypoglossal nerve stimulator (Primary Dx); MEREDITH (obstructive sleep apnea) 01/07/2024 1:23 PM SKATING CARHOP - 01/07/2024 6:24 PM SKATING CARHOP Emergency [facility] Emergency Department [address] [place] [address] Ayla Ambrose MD Galicia, Edgar E., MD Post-operative pain (Primary Dx); Secondary hypertension; Acute nonintractable headache, unspecified headache type Discharge Disposition: Discharge to home or self care 01/01/2024 8:30 AM SKATING CARHOP - 01/01/2024 11:00 AM SKATING CARHOP Surgery [facility] Operating Room [id number] [place] [address] Caren Caputo MD INSPIRE HYPOGLOSSAL NERVE STIMULATOR IMPLANT 01/01/2024 8:21 AM SKATING CARHOP Anesthesia Event [facility] Operating Room [address] [place] [address] Evette Huddleston Jr., MD Barnhart, Lynlee Jo, NP 01/01/2024 6:29 AM SKATING CARHOP - 01/01/2024 1:16 PM SKATING CARHOP Hospital Encounter [facility] [address] [place] [address] Caren Caputo MD MEREDITH (obstructive sleep apnea) (Primary Dx) Discharge Disposition: Discharge to home or self care 12/26/[address] [facility] [address] [place] [address] [address] [place] [address] Kendrick Hernandez MD 12/26/[address] [facility] [address] [place] [address] [address] [place] [address] Kendrick Hernandez MD 12/24/2023 9:45 AM SKATING CARHOP Pre-Admission Testing [facility] Pre Anesthesia Testing [address] [place] [id number] Type 2 diabetes mellitus with other specified complication, unspecified whether mcfp insulin use (HCC) (Primary Dx); Pre-op testing [...] often do you attend chur ch or taoist services? Never 10/13/2021 Do you belong to any clubs o r organizations such as mormon groups, unions, fraternal or athletic groups, or [...] place to sleep or slept in a long term (including now)? No 10/13/2021 Personal Safety Answer Date Recorded Have you ever been in or are you currently in a harmful physical or emotional relationship or is someone making you feel afraid or unsafe? Denies 01/07/2024 Comments No Sex and Gender Information Value Date Recorded Sex Assigned at Not on file Legal Sex Female 12:46 AM SKATING CARHOP Gender Identity Female 04/08/2019 6:15 AM SKATING CARHOP Sexual Orientation Straight 04/08/2019 6: 15 AM SKATING CARHOP Occupation Industry Job Start Date Job End [...] Comments Blood Pressure 131/81 02/18/2024 1:01 PM SKATING CARHOP Pulse 93 02/18/2024 1:01 PM SKATING CARHOP Temperature 36.2 ??C (97.2 ??F) 01/07/2024 10:[address] Respiratory Rate 18 01/07/2024 6:00 PM SKATING CARHOP Oxygen Saturation 97% 02/18/2024 1:01 PM SKATING CARHOP Inhaled Oxygen Concentration - - Weight 85.3 kg (188 lb) 02/18/2024 1:01 PM SKATING CARHOP Height 165.1 cm (5' 5 ) 02/18/2024 1:01 PM SKATING CARHOP Body Mass Index 31.28 02/18/2024 1:01 PM SKATING CARHOP Plan of Treatment Health Maintenance Due Date [...] 02/05/2013, 09/14/2011 Medical Devices Implanted Type Area Putter In Device Identifier Shelf Expiration Date Model / Serial / Lot [employer] Cruzito 180-223 Contour 6fr 26cm Large Inner Lumen Low Profile Bladder Lei Taper Latex Free - [id number] Implanted:Qty: 1 on 04/23/2018 by Christopher Her MD at [facility] Stent Right: Ureter [employer] Cruzito 11/19/2020 180-223 / / [id number] Plates Screws N/A: Neck [employer] Lead Neurostimulator Sleep Apnea Thoracic Permanent Respiratory Sensing Inspire 43cm 4340 - [id number] - [id number] Implanted:Qty: 1 on 01/01/2024 by Caren Caputo MD at [facility] N/A: Chest [employer] 07/21/2026 4340 / [id number] / [employer] Inspire 3 Electrode Cuff Tunnel José Lead Neurostimulator Sterile 4063 - [id number] - [id number] Implanted:Qty: 1 on 01/01/2024 by Caren Caputo MD at [facility] N/A: Neck [employer] 01/22/2026 4063 / [id number] / [employer] Inspire Generator 3028 - [id number] - [id number] Implanted:Qty: 1 on 01/01/2024 by Caren Caputo MD at [facility] N/A: Chest [employer] 07/22/2026 3028 / [id number] / Procedures Procedure Name Priority Date/Time Associated Diagnosis Comments POCT GLUCOSE DEVICE Routine 01/07/2024 4 :33 PM SKATING [facility]HOP CTA HEAD NECK W WO CONTRAST ED 01/07/2024 4:19 PM SKATING CARHOP TROPONIN T HIGH-SENSITIVITY 4-HR Timed 01/07/2024 3:24 PM SKATING CARHOP TROPONIN T HIGH-SENSITIVITY 2-HOUR STAT 01/07/2024 1:55 PM SKATING CARHOP XR CHEST PA LATERAL 2 VIEWS ED 01/07/2024 11:29 AM SKATING CARHOP EGFR STAT 01/07/2024 11:11 AM SKATING CARHOP DIFFERENTIAL AUTO STAT 01/07/2024 11: 11 AM SKATING CARHOP TROPONIN T HIGH-SENSITIVITY SERIES (BASELINE, 2HR, 4HR, 6HR) STAT 01/07/2024 11:11 AM SKATING CARHOP COMPREHENSIVE METABOLIC PANEL STAT 01/07/2024 11:11 AM SKATING CARHOP CBC WITH AUTO DIFFERENTIAL STAT 01/07/2024 11:11 AM SKATING CARHOP ECG 12-LEAD STAT 01/07/2024 11:02 AM SKATING CARHOP POCT GLUCOSE DEVICE Routine 01/01/2024 1 1:34 AM SKATING CARHOP XR NECK SOFT TISSUE ED Urgent/IP Urgent 01/01/2024 11:19 AM SKATING CARHOP XR CHEST 1 VIEW ED Urgent/IP Urgent 01/01/2024 11:19 AM [facility]ATING CARHOP POCT GLUCOSE DEVICE Routine 01/01/2024 1 0:54 AM SKATING CARHOP MI AN ELECTIVE ENDOTRACHEAL AIRWAY Routine 01/01/2024 9:06 AM SKATING CARHOP INSPIRE HYPOGLOSSAL NERVE STIMULATOR IMPLANT - INSERTION 01/01/2024 8:20 AM SKATING CARHOP MEREDITH (obstructive sleep apnea) Special Needs DR CAPUTO REQUESTS 150 MINS FOR CASE/10-14 DAYS POST OP POCT GLUCOSE DEVICE Routine 01/01/2024 7 :21 AM SKATING CARHOP EGFR Routine 12/24/2023 11:05 AM [facility]ATING CARHOP Pre-op testing BASIC METABOLIC PANEL Routine 12/24/2023 11:05 AM [facility] CARHOP Pre-op testing DIFFERENTIAL AUTO Routine 12/24/2023 10: 56 AM SKATING CARHOP Pre-op testing CBC WITH AUTO DIFFERENTIAL Routine 12/24/2023 10:56 AM SK[facility] CARHOP Pre-op testing HEMOGLOBIN A1C Routine 12/24/2023 10:56 AM SKATING CARHOP Type 2 diabetes mellitus with other specified complication, unspecified whether mcfp insulin use (HCC) Pre-op testing URINALYSIS AND REFLEX TO MICROSCOPIC AND CULTURE Routine 12/24/2023 10:56 AM SKATING CARHOP Pre-op testing DEXA AXIAL AND FOREARM BONE [...] Results * POCT glucose (01/07/2024 4:33 PM SKATING CARHOP) Glucose, POC 80 70 - 199 mg/dL Blood 01/07/2024 4:33 PM SKATING CARHOP 01/07/2024 4:33 PM SKATING CARHOP Mars Montano MD LAB POCT ORDERABLES - DEVICE Final Result [facility] SANCHEZ (REX) [address] [facility] [place] [address] * CTA Head Neck W WO Contrast (01/07/2024 4:19 PM SKATING CARHOP) Anatomical Region Laterality Modality Head and Neck N/A Computed Tomogra phy 01/07/2024 4:43 PM SKATING CARHOP Narrative 01/07/2024 5:02 PM SKATING CARHOP EXAM DESCRIPTION: ?? CTA HEAD NECK W [...] prominent at C6-C7 where there is likely ipba-cr-sdxokbhh spinal canal stenosis. IMPRESSION: BRAIN: No acute [...] PM T: ??01/07/2024 5:02 PM Report ID: [id number] Reading Location: ??[id number] Procedure Note Nigel Mei MD - 01/07/2024 EXAM DESCRIPTION: CTA HEAD NECK W WO CONTRAST REASON FOR STUDY: headache neck pain aftyer implant Ambulate to triage c/o had an implant put in for sleep apnea on and has had high blood pressure since then. [facility] has had a headacheon right side since this weekend. [facility] talked to primary doctor today whotold [...] an implantable medical generator within [facility] which per provided clinical history represents [...] prominent at C6-C7 where there is likely idos-nw-svnexhtp spinal canal stenosis. IMPRESSION: BRAIN: No acute intracranial process identified. Chronic left basal ganglia infarct. INTRACRANIAL CTA: 1. No large vessel occlusion or significant intracranial stenosis identified. 2. Mild luminal irregularity of the left middle cerebral artery [id number] without stenosis likely represents intracranial atherosclerotic disease. [...] Nigel Mei M.D. MM: MM Report ID: [id number] Reading Location: [place] [address] Ayla Ambrose MD IMG CT PROCEDURES F inal Result * Troponin T high-sensitivity 4-hour (01/07/2024 3:24 PM SKATING CARHOP) Trop T hs <6 <=14 ng/L Comment: Interpretive Data For further hscTnT resources including the diagnostic algorithm and an aid in interpretation, copy and paste this link: https://nrl.inMotionNow.org/show/hsTrop Current Interpretive Data last revised 2019. Trop T hs delta 0 ng/L [facility] ([facility]) Trop T hs interp Insignificant [facility] ([place]) Blood 01/07/2024 3:24 PM SKATING CARHOP 01/07/2024 3:26 PM SKATING CARHOP Ayla Ambrose MD LAB BLOOD ORDERABLE S Final Result [facility] LAURA ([place]) [address] [facility] [place] [address] * Troponin T high-sensitivity 2-hour (01/07/2024 1:55 PM SKATING CARHOP) Trop T hs <6 <=14 ng/L Comment: Interpretive Data For further hscTnT resources including the diagnostic algorithm and an aid in interpretation, copy and paste this link: https://nrl.inMotionNow.org/show/hsTrop Current Interpretive Data last revised 2019. Trop T hs delta 0 ng/L [facility] ([place]) Trop T hs interp Insignificant [facility] ([place]) Blood 01/07/2024 1:55 PM SKATING CARHOP 01/07/2024 1:56 PM SKATING CARHOP us Ayla Ambrose MD LAB BLOOD ORDERABLE S Final Result [facility] REX) [address] [facility] [place] [address] * XR Chest PA Lateral 2 Views (01/07/2024 11:29 AM SKATING CARHOP) Anatomical Region Laterality Modality Body, Chest N/A Computed Radiogr aphy 01/07/2024 11:3 7 AM SKATING CARHOP Narrative 01/07/2024 11:41 AM SKATING CARHOP EXAM DESCRIPTION: XR CHEST PA LATERAL 2 [...] AM T: ??01/07/2024 11:41 AM Report ID: [id number] Reading Location: ??[id number] Procedure Note Destinee Pichardo MD - 01/07/2024 [...] Destinee Pichardo M.D. AG: ZITA Report ID: [id number] Reading Location: [id number] Ayla Ambrose MD IMG XR PROCEDURES F inal Result * Troponin T high-sensitivity series (baseline, 2hr, 4hr, 6hr) (01/07/2024 11:11 AM SKATING CARHOP) Trop T hs <6 <=14 ng/L Comment: Interpretive Data For further hscTnT resources including the diagnostic algorithm and an aid in interpretation, copy and paste this link: https://nrl.testcatalog.org/show/hsTrop Current Interpretive Data last revised 2019. Blood 01/07/2024 11:1 1 AM SKATING CARHOP 01/07/2024 11:14 AM SKATING CARHOP Ayla Ambrose MD LAB BLOOD ORDERABLE S Final Result [facility] REX) [address] [facility] [place] [address] * eGFR (01/07/2024 11:11 AM SKATING CARHOP) eGFR >90 >=60 mL/min/1. 73 m2 Comment: [...] reviewed 2020. Blood 01/07/2024 11:1 1 AM SKATING CARHOP 01/07/2024 11:14 AM SKATING CARHOP us Ayla Ambrose MD LAB BLOOD ORDERABLE S Final Result [facility] SANCHEZ (REX) [address] [place] [address] * Differential, auto (01/07/2024 11:11 AM SKATING CARHOP) Neutrophil abs 3.3 1.5 - 6.5 K/cumm Imm gran abs 0.0 0.0 - 0.1 K/cumm [facility] ([place]) Lymphocyte abs 2.0 0.8 - 3.3 K/cumm [...] on 2017. Blood 01/07/2024 11:1 1 AM SKATING CARHOP 01/07/2024 11:15 AM SKATING CARHOP Ayla Ambrose MD LAB BLOOD ORDERABLE S Final Result [facility] ([place]) 1 [facility] [place] [address] * (ABNORMAL) CBC with auto differential (01/07/2024 11:11 AM SKATING CARHOP) WBC 5.9 3.8 - 9.9 K/cumm Hgb [...] (DWIGHT) Blood (Blood, Venous) 01/07/2024 11:11 AM SKATING CARHOP 01/07/2024 11:15 AM SKATING CARHOP us Ayla Ambrose MD LAB BLOOD ORDERABLE S Final Result [facility] ([place]) 1 [facility] [place] [address] * (ABNORMAL) Comprehensive metabolic panel (01/07/2024 11:11 AM SKATING CARHOP) Pathologist [facility] Sodium 141 135 - 145 mmol/L Potassium, pl 3.8 3.3 - 4.9 mmol/L [facility] ([place]) Chloride 104 97 - 110 mmol/L [facility] ([place]) CO2 27 22 - 32 mmol/L [facility] ([place]) Anion gap 10 2 - 15 mmol/L [facility] ([place]) BUN 26(H) 6 - 25 mg/dL [facility] ([place]) Creatinine 0.63 0.60 - 1.10 mg/dL CERNER [...] [facility] ([place]) Blood 01/07/2024 11:1 1 AM SKATING CARHOP 01/07/2024 11:14 AM SKATING CARHOP us Ayla Ambrose MD LAB BLOOD ORDERABLE S Final Result [facility] ([place]) [address] [facility] Department [place] [address] * ECG 12 lead (01/07/2024 11:02 AM SKATING CARHOP) 01/07/2024 11:0 2 AM SKATING CARHOP Narrative [facility] - 01/08/2024 1:40 AM SKATING CARHOP Vent Rate: 76 bpm RR Interval: 786 msec MI Interval: 142 msec QRS Duration: 84 msec QT Interval: 371 msec QTC Interval: 401 msec P-R-T [place]: 48 - 22 - 67 degrees IMPRESSION: SINUS RHYTHM MINIMAL VOLTAGE CRITERIA FOR LVH, CONSIDER NORMAL VARIANT ??[MEETS CRITERIA IN ONE OF: R(aVL), S(V1), R(V5), R(V5/V6)+S(V1)] NONSPECIFIC T-WAVE ABNORMALITY BORDERLINE ECG Electronically Signed By: Supa Ernandez MD Ayla Ambrose MD ECG ORDERABLES Fin al Result Performing Organization Address City/[facility]/ZIP Co de Phone Number [facility] * POCT glucose (01/01/2024 11:34 AM SKATING CARHOP) Glucose, POC 131 70 - 199 mg/dL Blood 01/01/2024 11:3 4 AM SKATING CARHOP 01/01/2024 11:34 AM SKATING CARHOP Caren Caputo MD LAB POCT ORDERABLES - DEVICE Final Result Performing Organization Address [facility] Co de Phone Number [facility] [address] Department [place] [address] * XR Neck Soft Tissue (01/01/2024 11:19 AM SKATING CARHOP) Anatomical Region Laterality Modality Head and Neck N/A Computed Radiogr aphy 01/01/2024 12:0 1 PM SKATING CARHOP Impressions 01/01/2024 12:01 PM SKATING CARHOP Postoperative change of hypoglossal nerve stimulator as described. Electronically signed by: Octavia Chavez M.D. Narrative 01/01/2024 12:01 PM SKATING CARHOP EXAMINATION: XR NECK SOFT TISSUE HISTORY: lateral [...] Chest 1 Vw Portable (01/01/2024 11:19 AM SKATING CARHOP) Anatomical Region Laterality Modality Body, Chest N/A Computed Radiogr aphy 01/01/2024 11:3 6 AM SKATING CARHOP Impressions 01/01/2024 11:36 AM SKATING CARHOP No pneumothorax seen. Electronically signed by: Man Becerra M.D. Narrative 01/01/2024 11:36 AM SKATING CARHOP EXAMINATION: XR CHEST 1 VIEW HISTORY: The [...] Result * POCT glucose (01/01/2024 10:54 AM SKATING CARHOP) Glucose, POC 122 70 - 199 mg/dL Blood 01/01/2024 10:5 4 AM SKATING CARHOP 01/01/2024 10:54 AM SKATING CARHOP Caren Caputo MD LAB POCT ORDERABLES - DEVICE Final Result Performing Organization Address City/State/[facility] Phone Number [facility] [address] [facility] Department [place] [address] * MI AN ELECTIVE ENDOTRACHEAL AIRWAY (01/01/2024 9:06 AM SKATING CARHOP) Narrative Elham Barber AA - 01/01/2024 9:06 AM SKATING CARHOP Elham Barber AA ? 01/01/2024 ??9:07 AM [...] Result * POCT glucose (01/01/2024 7:21 AM SKATING CARHOP) Glucose, POC 89 70 - 199 mg/dL Blood 01/01/2024 7:21 AM SKATING CARHOP 01/01/2024 7:21 AM SKATING CARHOP us Caren Caputo MD LAB POCT ORDERABLES - DEVICE Final Result Performing Organization Address City/State/[facility] Co in Phone Number [facility] [address] Department [place] [address] * eGFR (12/24/2023 11:05 AM SKATING CARHOP) eGFR >90 >=60 mL/min/1. 73 m2 Comment: [...] reviewed 2020. Blood 12/24/2023 11:0 5 AM SKATING CARHOP 12/24/2023 11:05 AM SKATING CARHOP Ivet Hoyos NP LAB BLOOD ORDERABLES Final Res ult [facility] [address] Department of Laboratories [place] [id number] * Basic metabolic panel (12/24/2023 11:05 AM SKATING CARHOP) Sodium 145 135 - 145 mmol/L Potassium, [...] mg/dL CERNER Blood 12/24/2023 11:0 5 AM SKATING CARHOP 12/24/2023 11:05 AM SKATING CARHOP Ivet Hoyos NP LAB BLOOD ORDERABLES Final Res ult [facility] [address] Department [place] [address] * Differential, auto (12/24/2023 10:56 AM SKATING CARHOP) Neutrophil abs 3.1 1.5 - 6.5 K/cumm Imm gran abs 0.0 0.0 - 0.1 K/cumm [facility] Lymphocyte abs 1.6 0.8 - 3.3 K/cumm [facility] Monocyte abs 0.6 0.2 - 0.8 K/cumm [facility] Eosinophil abs 0.1 0.0 - 0.5 K/cumm [facility] Basophil abs 0.0 0.0 - 0.1 K/cumm [facility] Neutrophil pct 57.4 % [facility] Comment: Interpretive Data Percent cell count reference ranges are not reported, since discordance with absolute values may lead to misinterpretation of CBC data. Current Interpretive Data was last revised on 2017. Imm gran pct 0.4 % [facility] Comment: Interpretive Data Percent cell count reference ranges are not reported, since discordance with absolute values may lead to misinterpretation of CBC data. Current Interpretive Data was last revised on 2017. Lymphocyte pct 29.0 % [facility] Comment: Interpretive Data Percent cell count reference ranges are not reported, since discordance with absolute values may lead to misinterpretation of CBC data. Current Interpretive Data was last revised on 2017. Monocyte pct 11.1 % [facility] Comment: Interpretive Data Percent cell count reference ranges are not reported, since discordance with absolute values may lead to misinterpretation of CBC data. Current Interpretive Data was last revised on 2017. Eosinophil pct 1.7 % [facility] Comment: Interpretive Data Percent cell count [...] on 2017. Blood 12/24/2023 10:5 6 AM SKATING CARHOP 12/24/2023 11:08 AM SKATING CARHOP us Ivet Hoyos PANEL MACHINE SETTER LAB BLOOD ORDERABLES Final Res ult Performing Organization Address [facility] Co de Phone Number [facility] CARLSON [address] Department [place] [address] * Urinalysis reflex to microscopic and culture Urine, clean voided (12/24/2023 10:56 AM SKATING CARHOP) Color, ur Yellow Yellow Clarity, ur Clear [...] tendency for uric acid stone formation. Source: [facility] [employer] Current Interpretive Data was last revised on [...] CERNER Urine, clean voided 12/24/2023 10:56 AM SKATING CARHOP 12/24/2023 12:24 PM SKATING CARHOP us Caren Caputo MD LAB MICROBIOLOGY - GEN ERAL ORDERABLES Final Result Performing Organization Address [facility]/ZIP Co de Phone Number [facility] [place] [address] Department [place] [address] * (ABNORMAL) CBC with auto differential (12/24/2023 10:56 AM SKATING CARHOP) WBC 5.4 3.8 - 9.9 K/cumm Hgb 12.7 11.9 - 15.5 g/dL [facility] Hct 38.8 35.6 - 45.5 % [facility] Plt 159 150 - 400 K/cumm [facility] MPV 9.4 9.1 - 12.3 fL [facility] RBC 3.58(L) 3.90 - 5.20 M/cumm [facility] MCV 108.4(H) 81.3 - 96.4 fL [facility] MCH 35.5(H) 27.1 - 33.3 pg [facility] MCHC 32.7 32.3 - 35.7 g/dL [facility] RDW CV 12.3 11.1 - 14.9 % [facility] RDW SD 49.0(H) 35.7 - 48.1 fL [facility] NRBC abs 0.00 0.00 - 0.01 K/cumm [facility] Blood 12/24/2023 10:5 6 AM SKATING CARHOP 12/24/2023 11:08 AM SKATING CARHOP Ivet Hoyos NP LAB BLOOD ORDERABLES Final Res ult Performing Organization Address City/State/[facility] Phone Number [facility] [address] Department [place] [address] * Hemoglobin A1c (12/24/2023 10:56 AM SKATING CARHOP) [facility] Hgb A1C 5.0 4.0 - 5.6 % Estimated Average Glucose 97 mg/dL [facility] Comment: The ADA recommends reporting an estimated Average Glucose (eAG) with all Hemoglobin A1c results using the equation derived from a study of 507 normal and diabetic adults. ??Minority populations were underrepresented and children were not included. ?? (Diabetes Care 31:0725-5192, 2008). ??The eAG is not equivalent to a fasting glucose. Blood 12/24/2023 10:5 6 AM SKATING CARHOP 12/24/2023 11:08 AM SKATING CARHOP Ivet Hoyos NP LAB BLOOD [place] [address] [address] Department [place] [address] * Dexa Axial and Forearm Bone Density Scan (09/08/2022 1:34 PM CDT) Anatomical Region Laterality Modality Wrist, Body N/A Other 09/09/2022 6:09 AM CDT Narrative 09/09/2022 6:11 AM CDT EXAM DESCRIPTION: DEXA AXIAL AND FOREARM BONE DENSITY SCAN REASON FOR STUDY: 62 y/o ?? year old ??F ??with given history of: ?? Hyperparathyroidism. ??Postmenopausal status. ??Osteoporosis. ? Putter In/Model: [employer] Discovery SL (S/N [id number]) CLINICAL INFORMATION: Current height: ??63.5 ??inches ? [...] AM T: ??09/09/2022 6:11 AM Report ID: [id number] Reading Location: ??[id number] Procedure Note Cecy Ratliff MD - 09/09/2022 EXAM DESCRIPTION: DEXA AXIAL AND FOREARM BONE DENSITY SCAN REASON FOR STUDY: 62 y/o year old F with given history of: Hyperparathyroidism. Postmenopausal status. Osteoporosis. Putter In/Model: [employer] Discovery SL (S/N [id number]) CLINICAL INFORMATION: Current height: 63.5 inches Maximum [...] Cecy Ratliff M.D. TW: TW Report ID: [id number] Reading Location: [id number] us Dylan To MD IMG DXA PROCEDURES [...] on 2017. Triglycerides 36 <=149 mg/dL [facility] Comment: Interpretive Data Ages < or = [...] revised on 2017. HDL 72 >=40 mg/dL [facility] Comment: Interpretive Data Ages < or = [...] revised on 2017. Non-HDL Cholesterol 67 mg/dL [facility] Comment: Interpretive Data Ages < or = [...] last revised on 2017. Chol/HDL ratio 2 [facility] Blood 10/10/2021 1:52 PM CDT 10/10/2021 2:07 PM CDT us Mauricio Chaudhary MD LAB BLOOD ORDERABLES Final Result [facility] Department [place] [address] from Last 3 Months or Most Recently Relevant to Health Maintenance Insurance [place] [facility] [place] [address] [place] Advance Directives For more information, please contact: [phone] * Full Code (Latest Code Status on File) Date Activated Date Inactivated Comments 10/10/2021 5:37 PM 10/11/2021 8:50 PM * Full Code Date Activated Date Inactivated Comments 08/18/2017 6:39 PM 08/22/2017 3:42 PM Care Teams Manager Of Planning Relationship Specialty Start Date End Date Destinee Conroy MD [address] [facility] [place] [phone] PCP - General 05/05/16 Desire Sams, RN Registered Nurse 04/03/17 Roscoe Mccollum MD [address] [place] [address] [address] Anesthesiologist Pain Management 12/21/21
--- OUTSIDE RECORDS SUMMARY | 2024-03-11 05:39 | XMS_ITS | Encounter Summary ---
Author Organization [facility] Address [address] [place] [address] Phone Care Team Providers Care Joint Cleaning Machine Operator Name Role Phone Jona Bravo MD Primary Care Provider Reason for Visit * Reason Comments Med Refill Encounter Details Date Type Department Care Team (Late st Contact Info) Description 11/06/2021 Refill [facility] [address] [place] [address] Janeth Betts PA [address] [place] [address] [place] [id number] Social History Tobacco Use Types Packs/Day Years [...] Description 05/28/2024 1:00 PM CDT Office Visit [facility] [address] [place], [place] [phone] Uche Vela MD [address] [place], [place] [phone] documented as of this encounter Visit Diagnoses Not on filedocumented in this encounter Care Teams Joint Cleaning Machine Operator Relationship Specialty Start Date End Date Jona Bravo MD [address] [place] [address] PCP - General Internal Medicine 06/16/19 documented as of this encounter
--- OUTSIDE RECORDS SUMMARY | 2024-03-11 05:39 | XMS_ITS | Clinical Summary ---
Author Organization [facility] Address [address] [place] [address] Phone Care Team Providers Care Business Process Manager Name Role Phone Jona Bravo MD Primary Care Provider [phone] Allergies Active Allergy Reactions Criticality Noted Date [...] Description 05/28/2024 1:00 PM CDT Office Visit [facility] [address] [place] [address] Uche Vela MD [address] [place] [address] Health Maintenance Due Date Last Done Comments COVID-19 Vaccine (5 - 2022-2 4 season) 2023 10/13/2021, 12/12/2020, 04/29/2020, Additional history exists Influenza Vaccine (#1) 2023 , 11/14/2019, 10/19/2019, Additional history exists Pneumococcal PPSV23/PCV13 65 + Years / High and Highest Risk (4 of 4 - PPSV23 or PCV20) 02/05/2024 05/30/2016, 09/16/2014, 09/16/2014 Care Teams Business Process Manager Relationship Specialty Start Date End Date Jona Bravo MD [address] [place] [address] PCP - General Internal Medicine 06/16/19
--- OUTSIDE RECORDS SUMMARY | 2024-03-11 05:39 | XMS_ITS | Clinical Summary ---
Author Organization [facility] Address [address] [place] [address] Phone Care Team Providers Care Care Team Coordinator Scheduler Name Role Phone Jona Bravo MD Primary Care Provider [phone] Active Problems Problem Noted Date Diagnosed Date [...] age to complete this topic Care Teams Care Team Coordinator Scheduler Relationship Specialty Start Date End Date Jona Bravo MD [address] [place] [address] PCP - General 05/04/17
--- OUTSIDE RECORDS SUMMARY | 2024-03-11 05:39 | XMS_ITS | Encounter Summary ---
Author Organization [facility] Address [address] [place] [address] Care Team Providers Care Dry Drug Worker Name Role Phone Jona Braov MD Primary Care Provider [phone] Reason for Visit * Reason Comments Clinical Consult Before Scheduling Encounter Details Date Type Department Care Team (Late st Contact Info) Description 02/11/2024 Telephone [facility] Primary Care [address] [place] [address] Jona Bravo MD [address] 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 Topic: Symptomatic Care >> Feb 11, 2024 4:22 PM Connie Ardon wrote: Caller has new symptoms and is seeking care. Age Range/Symptom: Adult: 18+ - Cold, Flu, COVID, Sinus, Hay Fever, Allergies, Cough, Fever Does patient have any of the following other urgent symptoms: No urgent symptoms requiring warm call transfer Caller Name: Tiffanie Ruiz Callback Number: [phone] Call Notes: She has been sick since 01/31/2024. She went to the Urgent care ([facility]), yesterday. Where they prescribed steroids, and gave x-ray. She Is still suffering from cough, raspy throat, chest aches, and head congestion. Emergency inhaler not working well Refer to - [facility] (02/11/2024) She is scheduled with [facility] on 02/14/2024 Unable to schedule appointment within patient's desired timeframe. Patient declined all other options for immediate care, preferring to schedule first available. Scheduled appointment for 02/14/24 at3pm . If this is not clinically appropriate, please contact patient. No ILS WASHER documented in this encounter Plan of Treatment Upcoming Encounters Date Type Department Care Team (Late st Contact Info) Description 04/23/2024 1:20 PM CDT Office Visit [address] [place] [address] Jona Bravo MD [address] [place] [address] [address] [place] [address] 08/25/2024 10:40 AM CDT Office Visit [address] [place] [address] Jona Bravo MD [address] [place] [address] [address] [place] [address] documented as of this encounter Visit Diagnoses Not on filedocumented in this encounter Care Teams Dry Drug Worker Relationship Specialty Start Date End Date Jona Bravo MD PCP - General Internal Medicine 11/25/15 documented as of this encounter
--- OUTSIDE RECORDS SUMMARY | 2024-03-11 05:39 | XMS_ITS | Encounter Summary ---
Author Organization [facility] Address [address] [place] [address] Care Team Providers Care Supervisor Crack Off Name Role Phone Jona Bravo MD Primary Care Provider [phone] Reason for Visit * Reason Onset Date Comments HFU 10/11/2021 Encounter Details Date Type Department Care Team (Late st Contact Info) Description 10/11/2021 Telephone [facility] Primary Care [address] [place] [address] Jona Bravo MD [address] [place] [address] [address] [place] [address] HFU Social History Tobacco Use [...] often do you attend chur ch or latter day services? 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 according to pillowcase turner Krzysztof. Patient was scheduled for a hospital follow up with PCP for 10/14/21; caller stated that [facility] wants patients to be seen no sooner than 7 days after discharge; PSA informed patient needs to be seen within 5 days per PCP; caller stated she may advise patient to reschedule. Please call the patient to [facility] and request medical records as it was not mentioned during the call. documented in this encounter Plan of Treatment Upcoming Encounters Date Type Department Care Team (Late st Contact Info) Description 04/23/2024 1:20 PM CDT Office Visit [address] [place] [address] Jona Bravo MD [address] [place] [address] [place] [address] 08/25/2024 10:40 AM CDT Office Visit [address] [place] [address] Jona Bravo MD [address] [place] [address] [address] [place] [address] documented as of this encounter Visit Diagnoses Not on filedocumented in this encounter Additional Health Concerns Assessment Noted Time PHQ-9 Depression Total Score: 2 01/11/20 20 4:07 PM BEAUTY PARLOR CLEANER documented as of this encounter Care Teams Supervisor Crack Off Relationship Specialty Start Date End Date Jona Bravo MD PCP - General Internal Medicine 11/25/15 documented as of this encounter
--- OUTSIDE RECORDS SUMMARY | 2024-03-11 05:40 | XMS_ITS | Clinical Summary ---
Author Organization [facility] [employer] Address [address] [facility] [place] [address] Care Team Providers Care Link Trainer Operator Name Role Phone Jona Bravo MD Primary Care Provider [phone] Source Comments [facility] [employer],non-owned Affiliates and Associated Physician Practices is amultiple site organization consisting of ambulatory clinics and hospital sitesin [place], [place] and [place]. This disclosure is being madepursuant to the Care Everywhere program and may not contain all information available regarding this patient. Last updated 17.[facility] [employer] Allergies Active Allergy Reactions Criticality Noted Date [...] Units/L by mouth once daily Active Biotin 68855 MCG TBDP Take 1 tablet by mouth [...] mouth once daily 04/21/2021 Active nystatin (NYSTOP) 550282 UNIT/GM powder APPLY POWDER TOPICALLY TO AFFECTED [...] 01/15/08: Lap banding by Dr. Claros at [facility] Had a port leak with subsequent [...] st Contact Info) Description 04/10/2024 8:30 AM CARDIAC SPECIALIST Office Visit [facility] [address] [place] [phone] Soham Hutton MD [address] [address] Health Maintenance Due Date Last Done Comments [...] 29 U/L [facility] Comment: Test Performed at: [facility] [id number] [address] ??[id number] ARACELY DANIEL MD 06/05/2022 10:4 9 AM CDT 06/05/2022 10:50 AM CDT Ivettehandy Shields [place] TAX COMMISSIONER-BUSINESS SUPPORT ADMINISTRATOR LAB - [facility]A [facility] ORDERABLES [facility] [address] [place] [address] * ENDOSCOPY, COLON, SCREENING (08/03/2020 9:10 AM [...] Procedure Code(s): ? --- Professional --- ? 12991, Colonoscopy, flexible; with biopsy, single or multiple Diagnosis Code(s): ?--- Professional --- ?Z86.010, Personal history of colonic polyps ?K63.5, Polyp of colon ?K57.30, Diverticulosis of large intestine without ?perforation or abscess without bleeding CPT copyright 2019 [employer]. All rights reserved. The codes documented in this report are preliminary and upon filter tender jelly review may be revised to meet current compliance requirements. Soham Farley MD 08/03/2020 10:38:53 AM This report has been signed electronically. Note Initiated On: 08/03/2020 9:10 AM Number of Addenda: 0 ? [facility] ? [address] [place] [address] [facility] 08/03/2020 9:10 AM CDT Soham Hutton MD GI PROCEDU RE ORDERABLES [facility] * HEMOGLOBIN A1C (07/23/2008 11:32 AM CDT) Hemoglobin A1c 5.7 3.9 - 6.1 % [facility] Estimated Average Glucose 116.9 mg/dl [facility] BLOOD SPECIMEN / Unknown 07/23/2008 11:32 AM CDT Narrative [facility] - 07/23/2008 9:23 PM CDT [id number] Resulting Agency Comment Performed By [facility] - [facility] ? [address] [facility] ? [place] [address] Scott Claros MD LAB - CHEMISTRY O RDERABLES [facility] [address] [place] [address] from Last 3 Months or Most Recently Relevant to Health Maintenance Advance Directives * Full Code (Latest Code Status on File) Date Activated Date Inactivated Comments 06/19/2018 5:17 PM 06/20/2018 8:12 PM * Full Code Date Activated Date Inactivated Comments 12/24/2017 11:20 AM 12/25/2017 12:40 PM Care Teams Link Trainer Operator Relationship Specialty Start Date End Date Jona Bravo MD [address] [place] [address] PCP - General Internal Medicine 10/16/22
--- OUTSIDE RECORDS SUMMARY | 2024-03-11 05:40 | XMS_ITS | Encounter Summary ---
Author Organization [facility] Address [address] [place] [address] Care Team Providers Care Shaker Operator Name Role Phone Jona Bravo MD Primary Care Provider [phone] Reason for Visit * Reason Comments Question Encounter Details Date Type Department Care Team ([facility] st Contact Info) Description 03/23/2023 Telephone [facility] Primary Care [address] [place] [address] Jona Bravo MD [address] [facility] [address] [place] [address] Question Social History Tobacco Use [...] often do you attend chur ch or druze services? 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 Topic: Patient or Caregiver Communication Request >> Mar 23, 2023 12:21 PM David Monte wrote: Patient or Caregiver calling to update PCP team on status after a recent visit Caller: Eda Patient/Caregiver Callback Number: [phone] Call Notes: Message: Eda is calling to check the status of fax requesting brace for lower back and knees of patient. Informed Eda that we put the request on Dr. Bravo's desk. She wanted io inform they need the request back within 3-5 days. Please Advise RTISING OPERATIONS COORDINATOR documented in this encounter Plan of Treatment Upcoming Encounters Date Type Department Care Team (Late st Contact Info) Description 04/23/2024 1:20 PM CDT Office Visit [facility] Care [address] [place] [address] Jona Bravo MD [address] [place] [address] [address] [place] [address] 08/25/2024 10:40 AM CDT Office Visit [address] [place] [address] Jona Bravo MD [address] [place] [address] [place] [address] documented as of this encounter Visit Diagnoses Not on filedocumented in this encounter Care Teams Shaker Operator Relationship Specialty Start Date End Date Jona Bravo MD PCP - General Internal Medicine 11/25/15 documented as of this encounter
--- OUTSIDE RECORDS SUMMARY | 2024-03-11 05:40 | XMS_ITS | Encounter Summary ---
Author Organization [facility] Address [address] [place] [address] Care Team Providers Care Pack Mule Worker Name Role Phone Jona Bravo MD Primary Care Provider [phone] Reason for Visit * Reason Comments Question Encounter Details Date Type Department Care Team ([facility] st Contact Info) Description 04/23/2023 Telephone [facility] Primary Care [address] [place] [address] Jona Bravo MD [address] [facility] [address] [place] [address] Question Social History Tobacco Use [...] attend chur ch or taoist services? 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 Topic: Patient or Caregiver Communication Request >> Apr 23, 2023 1:32 PM Adelina Harper wrote: Patient or Caregiver requesting advice Caller: Tiffanie Ruiz Patient/Caregiver Callback Number: [phone] (home) Call Notes: Patient is calling she is needing an orthopedic referral and her referral for Eric Martinez MD is still pending and needs to be faxed to this number. Please advise. Dr Martinez FAX# [phone] documented in this encounter Plan of Treatment Upcoming Encounters Date Type Department Care Team (Late st Contact Info) Description 04/23/2024 1:20 PM CDT Office Visit [facility] Care [address] [place] [address] Jona Bravo MD [address] [place] [address] [place] [address] 08/25/2024 10:40 AM CDT Office Visit [facility] Primary Care [address] [place] [address] Jona Bravo MD [address] [place] [address] [place] [address] documented as of this encounter Visit Diagnoses Not on filedocumented in this encounter Care Teams Pack Mule Worker Relationship Specialty Start Date End Date Jona Bravo MD PCP - General Internal Medicine 11/25/15 documented as of this encounter
--- OUTSIDE RECORDS SUMMARY | 2024-03-11 05:40 | XMS_ITS | Patient Health Summary ---
Author Organization [facility] Address [address] [facility] [place] [address] Care Team Providers Care Methods Specialist Engineer Name Role Phone Jona Bravo MD Primary Care Provider Note from [facility],non-owned Affiliates and Associated Physician Practices is amultiple site organization consisting of ambulatory clinics and hospital sitesin [place], [place], [place] and [place]. This disclosure is being madepursuant to the Care Everywhere program and may not contain all information available regarding this patient. Last updated 17.[facility] Allergies * Adhesive Sensitivity(Other) * Codeine(Urticaria) * [...] Units/L by mouth once daily * Biotin 17054 MCG TBDP Take 1 tablet by mouth [...] by mouth once daily * nystatin (NYSTOP) 604536 UNIT/GM powder(Started 08/12/2021) APPLY POWDER TOPICALLY TO [...] DO on 07/18/2023 2:08 PM Steph Mar ENGINE LATHE SET UP OPERATOR-WAREHOUSE PULLER FLUOROSCOPY ORDERABLES * CT ABDOMEN AND PELVIS [...] DATE/TIME OF EXAM: ??06/29/2023 12:15 PM, LOCATION ??[facility] INDICATION: R10.12: Left upper quadrant pain. R19.00: [...] DATE/TIME OF EXAM: 06/29/2023 12:15 PM, LOCATION [facility] INDICATION: R10.12: Left upper quadrant pain. R19.00: [...] resultswithin the time period is included. Pathologist [facility] Glucose WB/POC 86 70 - 106 mg/dL 10/16/2022 8:20 AM CDT [facility] Specimen Type Cap Fingerstick 2022 8:20 AM CDT [facility] Blood BLOOD SPECIMEN / Unknown 10/16/2022 8:18 AM CDT 10/16/2022 8:20 AM CDT Jasson Carrasco MD LAB - POINT OF CARE ORDERABLES [facility] [address] [place] [address] * EGD (10/16/2022 8:05 AM CDT) Pathologist [facility] Report Endoscopy POC _ Patient Name: Tiffanie [...] Procedure Code(s): ? --- Professional --- ? 02108, Esophagogastroduod enoscopy, flexible, transoral; with directed ? submucosal injection(s), any substance ? --- Technical --- ? 91036, Esophagogastroduod enoscopy, flexible, transoral; with directed ? [...] of digestive ? system CPT copyright 2020 [employer]. All rights reserved. The codes documented in this report are preliminary and upon outpatient coder review may be revised to meet current compliance requirements. _ Jasson Carrasco MD 10/16/2022 9:00:45 AM Number of Addenda: 0 Note Initiated On: 10/16/2022 8:05 AM PSYCHIATRIC ENDOSCOPY 10/16/2022 8:05 AM CDT Narrative Procedure Note Jasson Carrasco MD - 10/16/2022 9:01 AM CDT PLAN: 1. Sclerotherapy diet 2. PPI daily Jasson Carrasco MD GI PROCEDURE ORDERAB LES [place] [address] * EGD (08/21/2022 7:16 AM CDT) Report [...] Procedure Code(s): ? --- Professional --- ? 41785, Esophagogastroduod enoscopy, flexible, transoral; with directed ? submucosal injection(s), any substance ? --- Technical --- ? 58762, Esophagogastroduod enoscopy, flexible, transoral; with directed ? [...] of digestive ? system CPT copyright 2020 [employer]. All rights reserved. The codes documented in this report are preliminary and upon outpatient coder review may be revised to meet current compliance requirements. _ Jasson Cararsco MD 08/21/2022 8:35:24 AM Number of Addenda: 0 Note Initiated On: 08/21/2022 7:16 AM PSYCHIATRIC ENDOSCOPY 08/21/2022 7:16 AM CDT Narrative Procedure Note Jasson Carrasco MD - 08/21/2022 8:35 AM CDT PLAN: 1. Sclerotherapy diet for 4 weeks 2. Nurse to call in 4-6 weeks to assess for improvement in BG regulation Jasson Carrasco MD GI PROCEDURE ORDERAB LES Performing Organization Address City/[facility]/ZIP Co de Phone Number [place] [address] * (ABNORMAL) VITAMIN K1 (06/05/2022 10:49 AM CDT) Only the most recent of7 resultswithin the time period is included. Vitamin K 86(L) 130 - 1500 pg/mL [facility] Comment: This test was developed and its analytical performance characteristics have been determined by [employer]. It has not been cleared or approved by the FDA. This assay has been validated pursuant to the CLIA regulations and is used for clinical purposes. Test Performed at: [facility] [address] ??[phone] DOMINIQUE KOWALSKI MD 06/05/2022 10:4 9 AM CDT 06/05/2022 10:50 AM CDT Ivette Monteiro ENGINE LATHE SET UP OPERATOR-WAREHOUSE PULLER LAB - [place] ZAID ORDERABLES [facility] [address] [place] [address] * (ABNORMAL) ZINC BLOOD (06/05/2022 10:49 AM CDT) Only the most recent of8 resultswithin the time period is included. Zinc 57(L) 60 - 130 mcg/dL [facility] Comment: This test was developed and its analytical performance characteristics have been determined by [employer]. It has not been cleared or approved by the FDA. This assay has been validated pursuant to the CLIA regulations and is used for clinical purposes. REPORT COMMENT: FASTING:YES Test Performed at: [facility] [address] ??[address] SANDRA FOX 06/05/2022 10:4 9 AM CDT 06/05/2022 10:50 AM CDT Ivette Monteiro [facility] - [facility] ORDERABLES Performing Organization Address [facility] de Phone Number [address] [address] * VITAMIN A (06/05/2022 10:49 AM CDT) Only the most recent of5 resultswithin the time period is included. Pathologist [facility] Vitamin A 47 38 - 98 mcg/dL [facility] Comment: Clin Chem Vol. 34.No.8. [id number]. 1998 Vitamin supplementation within 24 hours prior to blood draw may affect the accuracy of results. ?? This test was developed and its analytical performance characteristics have been determined by [employer]. It has not been cleared or approved by the FDA. This assay has been validated pursuant to the CLIA regulations and is used for clinical purposes. Test Performed at: [facility] [address] ??[phone] DOMINIQUE KOWALSKI MD 06/05/2022 10:4 9 AM CDT 06/05/2022 10:50 AM CDT Ivette Monteiro ENGINE LATHE SET UP [facility] - [facility] ORDERABLES Performing Organization Address [facility] de Phone Number [facility] [phone] [place] [address] * VITAMIN E (06/05/2022 10:49 AM CDT) Only the most recent of5 resultswithin the time period is included. Pathologist [facility] Alpha-Tocopherol 10.3 mg/L [facility] Comment: ?Reference Range ?5.7-19.9 mg/L ?Levels of alpha-tocopherol <5 mg/L are ?consistent with Vitamin E deficiency in ?adults. Vitamin supplementation within 24 hours prior to blood draw may affect the accuracy of results. ? See Note 1 Beta-Gamma Tocopherol <1.0 <4.4 mg/L [facility] Comment: See Note 1 Test Performed at: [facility] [address] ??[phone] DOMINIQUE KOWALSKI MD 06/05/2022 10:4 9 AM CDT 06/05/2022 10:50 AM CDT Ivette Alyson Monteiro ENGINE LATHE SET UP OPERATOR-WAREHOUSE PULLER LAB - [place] [employer] ORDERABLES Performing Organization Address [facility] de Phone Number [address] [address] * VITAMIN B1 (06/05/2022 10:49 AM CDT) Only the most recent of10 resultswithin the time period is included. [facility] Vitamin B1 Whole Blood 161 78 - 185 nmol/L [facility] Comment: Vitamin supplementation within 24 hours prior to blood draw may affect the accuracy of results. This test was developed and its analytical performance characteristics have been determined by [employer]. It has not been cleared or approved by the FDA. This assay has been validated pursuant to the CLIA regulations and is used for clinical purposes. Test Performed at: [facility] [address] ??[phone] DOMINIQUE KOWALSKI MD 06/05/2022 10:4 9 AM CDT 06/05/2022 10:50 AM CDT Ivette Alyson Monteiro ENGINE LATHE SET UP OPERATOR-WAREHOUSE PULLER LAB - [place] [employer] ORDERABLES Performing Organization Address [facility] de Phone Number [address] [address] * PTH INTACT (06/05/2022 10:49 AM CDT) [...] or Low Normal ?High Test Performed at: [facility] [address] [place] ??[address] ARACELY DANIEL MD 06/05/2022 10:4 9 AM CDT 06/05/2022 10:50 AM CDT Ivette Shields Cayetano ENGINE LATHE SET UP OPERATOR-WAREHOUSE PULLER LAB - [facility] ORDERABLES Performing Organization Address City/State/[facility] Co de Phone Number [facility] [address] [place] [address] * COPPER BLOOD (06/05/2022 10:49 AM CDT) Only the most recent of5 resultswithin the time period is included. Pathologist [facility] Copper 84 70 - 175 mcg/dL TAYA Comment: This test was developed and its analytical performance characteristics have been determined by [employer]. It has not been cleared or approved by the FDA. This assay has been validated pursuant to the CLIA regulations and is used for clinical purposes. Test Performed at: [facility] [address] ??[address] SANDRA FOX 06/05/2022 10:4 9 AM CDT 06/05/2022 10:50 AM CDT Ivette Shields Cayetano ENGINE LATHE SET UP OPERATOR-WAREHOUSE PULLER LAB - [place] Z[employer] ORDERABLES Performing Organization Address [facility] de Phone Number [facility] [address] [place] [address] * FOLATE RBC (06/05/2022 10:49 AM CDT) Only the most recent of8 resultswithin the time period is included. Folate RBC 616 >280 ng/mL RBC [facility] Comment: Test Performed at: [facility] ??[phone] ARACELY DANIEL MD 06/05/2022 10:4 9 AM CDT 06/05/2022 10:50 AM CDT Ivette Shields Cayetano ENGINE LATHE SET UP OPERATOR-[facility] LAB - [place] ZAID ORDERABLES Performing Organization Address [facility] de Phone Number [facility] [address] [place] [address] * (ABNORMAL) VITAMIN D 25-HYDROXY (06/05/2022 10:49 [...] D, (D2,D3), LC/MS/MS is recommended: order code 09168 (patients >2yrs). See Note 2 Note 1 This test was developed and its analytical performance characteristics have been determined by [employer]. It has not been cleared or approved by the FDA. This assay has been validated pursuant to the CLIA regulations and is used for clinical purposes. Note 2 For additional information, please refer to http://education.testbirds/faq/ZPN426 (This link is being provided for informational/ educational purposes only.) Test Performed at: [facility] [address] [place] ??[phone] ARACELY DANIEL MD 06/05/2022 10:4 9 AM CDT 06/05/2022 10:50 AM CDT Ivette Shields Cayetano ENGINE LATHE SET UP OPERATOR-WAREHOUSE PULLER LAB - [place] ZAID ORDERABLES [facility] [address] [place] [address] * (ABNORMAL) CBC W/O DIFFERENTIAL (06/05/2022 10:49 [...] 12.5 fL [facility] Comment: Test Performed at: [facility] [address] [place] [address] ??[phone] ARACELY DANIEL MD 06/05/2022 10:4 9 AM CDT 06/05/2022 10:50 AM CDT Ivette Shields Cayetano ENGINE LATHE SET UP OPERATOR-WAREHOUSE PULLER LAB - HEM ATOLOGY ORDERABLES [facility] [address] [place] [address] * COMPREHENSIVE METABOLIC PANEL (06/05/2022 10:49 AM [...] 29 U/L [facility] Comment: Test Performed at: [facility] [place] [address] [address] [facility] [place] ??[address] ARACELY DANIEL MD 06/05/2022 10:4 9 AM CDT 06/05/2022 10:50 AM CDT Ivette Shields Cayetano SHELLN-WAREHOUSE PULLER LAB - [place] [address] * PREALBUMIN (06/05/2022 10:49 AM CDT) Only the most recent of4 resultswithin the time period is included. Prealbumin 20 17 - 34 mg/dL [facility] Comment: Test Performed at: [facility] [place] ??[phone] ARACELY DANIEL MD 06/05/2022 10:4 9 AM CDT 06/05/2022 10:50 AM CDT Ivette Shields Cayetano ENGINE LATHE SET UP OPERATOR-WAREHOUSE PULLER LAB - [place] ZAID ORDERABLES Performing Organization Address [facility] [place] [address] * MAGNESIUM BLOOD (06/05/2022 10:49 AM CDT) Only the most recent of8 resultswithin the time period is included. Magnesium 2.2 1.5 - 2.5 mg/dL [facility] Comment: Test Performed at: [place] [place] ??[address] ARACELY DANIEL MD 06/05/2022 10:4 9 AM CDT 06/05/2022 10:50 AM CDT Ivette Alysonrenato Monteiro APRN-WAREHOUSE PULLER LAB - [place] Z[employer] ORDERABLES Performing Organization Address [facility] de Phone Number [place] [phone] * IRON BLOOD (06/05/2022 10:49 AM CDT) Only the most recent of5 resultswithin the time period is included. Iron 105 45 - 160 mcg/dL [facility] Comment: Test Performed at: [facility] [place] [place] ??[address] ARACELY DANIEL MD 06/05/2022 10:4 9 AM CDT 06/05/2022 10:50 AM CDT Ivette Monteiro ENGINE LATHE SET UP OPERATOR-WAREHOUSE PULLER LAB - [place] ZAID ORDERABLES Performing Organization Address [facility] de Phone Number [place] [phone] * VITAMIN B12 (06/05/2022 10:49 AM CDT) Only the most recent of9 resultswithin the time period is included. Pathologist [facility] Vitamin B12 547 200 - 1100 pg/mL [facility] Comment: Test Performed at: [facility] [address] [place] ??[phone] ARACELY DANIEL MD 06/05/2022 10:4 9 AM CDT 06/05/2022 10:50 AM CDT Ivette Shields Cayetano SHELLN-WAREHOUSE PULLER LAB - [place] ZAID ORDERABLES Performing Organization Address [facility] [place] [address] * (ABNORMAL) FERRITIN (06/05/2022 10:49 AM CDT) Only the most recent of8 resultswithin the time period is included. Pathologist [facility] Ferritin 7(L) 16 - 288 ng/mL [facility] Comment: Test Performed at: [facility] [address] [place] ??[address] ARACELY DANIEL MD 06/05/2022 10:4 9 AM CDT 06/05/2022 10:50 AM CDT Ivette Monteiro APRN-WAREHOUSE PULLER LAB - [place] ZAID ORDERABLES Performing Organization Address [facility] de Phone Number [place] [phone] * IRON + TIBC PANEL (08/24/2021 3:15 PM CDT) Only the most recent of2 resultswithin the time period is included. Iron 116 45 - 160 mcg/dL [facility] TIBC 440 250 - 450 mcg/dL (calc) [facility] % Saturation 26 16 - 45 % (calc) [facility] Comment: Test Performed at: [facility] [address] [place] ??[address] TANESHA THOMAS DO,MPH Blood BLOOD SPECIMEN / Unknown 08/24/2021 3:15 PM CDT 08/24/2021 3:16 PM CDT Ivette Alyson Cayetano ENGINE LATHE SET UP OPERATOR-WAREHOUSE PULLER LAB - [place] ZAID ORDERABLES [facility] [address] [place] [address] * PATHOLOGY TISSUE (08/03/2020 10:12 AM CDT) Only the most recent of2 resultswithin the time period is included. Case Report Surgical Pathology Report ? Case: [id number] ? Authorizing Provider: ??Soham Farley MD ? Collected: ? 08/03/2020 10:12 AM ? Ordering Location: ? [facility] ?Received: ?08/03/2020 11:31 AM ? Pathologist: ? Vannessa Mendoza MD ? Specimen: ?Colon, hepatic flexure polyp ? 08/04/2020 2:54 PM [facility] Final Diagnosis Large intestine, hepatic flexure polyp, biopsy (A): - Tubular adenoma 08/04/2020 2:54 PM [facility] PATH[facility] Microscopic Description and Comment Microscopic examination substantiates the final diagnosis. 08/04/2020 2:54 PM [facility] PATHOLOGY LAB Clinical History The patient is a 60-year-old woman who presents for surveillance colonoscopy (personal history of adenomatous polyps). Operative procedure/findings: Colonoscopy - 3 mm hepatic flexure polyp, resected and retrieved. 08/04/2020 2:54 PM [facility] PATHOLOGY LAB Gross Description The requisition and specimen(s) are identified with the patient's name, Tiffanie Ruiz. Received in formalin, specimen A is a light-baptiste mucosal tissue fragment, 0.6 x 0.3 x 0.2 cm. Entirely submitted in cassette A1. LJ 08/04/2020 2:54 PM [facility] PATHOLOGY LAB Disclaimer The performance characteristics of all immunohistochemical and indirect immunofluorescence stains (if any) cited in this report were determined by the Histopathology Laboratory of [facility]. Some of these tests were [...] the attending (teaching) pathologist. 08/04/2020 2:54 PM [facility] PATHOLOGY LAB Embedded Images 08/04/2020 2:54 PM [facility] PATH[facility] LAB Biopsy, NOS COLON PART / Unknown 08/03/2020 10:12 AM CDT 08/03/2020 11:31 AM CDT Comment:Pre-op diagnosis: Screen for colon cancer [Z12.11] Soham Hutton MD LAB - PATH OLOGY/CYTOLOGY ORDERABLES Performing Organization Address [facility]/State/ZIP Co de Phone Number [facility] [address] [place] [address], [facility] [phone] * ENDOSCOPY, COLON, SCREENING (08/03/2020 9:10 AM [...] Procedure Code(s): ? --- Professional --- ? [address]348, Colonoscopy, flexible; with biopsy, single or multiple Diagnosis Code(s): ?--- Professional --- ?Z86.010, Personal history of colonic polyps ?K63.5, Polyp of colon ?K57.30, Diverticulosis of large intestine without ?perforation or abscess without bleeding CPT copyright 2019 [employer]. All rights reserved. The codes documented in this report are preliminary and upon outpatient coder review may be revised to meet current compliance requirements. Soham Farley MD 08/03/2020 10:38:53 AM This report has been signed electronically. Note Initiated On: 08/03/2020 9:10 AM Number of Addenda: 0 ? [facility] ? [address] [place], [place] [id number] [place] [address] PROVATION 08/03/2020 9:10 AM CDT Soham Hutton MD GI PROCEDU RE ORDERABLES [facility] [employer]ATION * EGD (08/03/2020 8:27 AM CDT) [...] stomal ulceration. This was traversed. The ? [id number]-gg-[id number] limb was characterized by healthy appearing mucosa. [...] Procedure Code(s): ? --- Professional --- ? 33670, Esophagogastroduoden oscopy, flexible, transoral; diagnostic, ? including collection of specimen(s) by brushing or washing, when ? performed (separate procedure) Diagnosis Code(s): ?--- Professional --- ?Z98.0, Intestinal bypass and anastomosis status ?R10.13, Epigastric pain CPT copyright 2019 [employer]. All rights reserved. The codes documented in this report are preliminary and upon outpatient coder review may be revised to meet current compliance requirements. Soham Farley MD 08/03/2020 10:33:04 AM This report has been signed electronically. Note Initiated On: 08/03/2020 8:27 AM Number of Addenda: 0 ? [facility] ? [address] [place], [place] [id number] [place] [address] [employer]OVATION 08/03/2020 8:27 AM CDT Soham Hutton MD GI PROCEDU RE ORDERABLES [facility] [employer] * SELENIUM (10/16/2019 12:14 PM CDT) Only the most recent of2 resultswithin the time period is included. Pathologist [facility] Selenium 139 63 - 160 mcg/L [facility] Comment: This test was developed and its analytical performance characteristics have been determined by [employer]. It has not been cleared or approved by the FDA. This assay has been validated pursuant to the CLIA regulations and is used for clinical purposes. Test Performed at: [facility] [address] [place], [place] ??[phone] KAIT BLACK MD,PHD 10/16/2019 12:1 4 PM CDT 10/16/2019 12:14 PM CDT Ivette Monteiro ENGINE LATHE SET UP OPERATOR-WAREHOUSE PULLER LAB - [place] Z[employer]ID ORDERABLES Performing Organization Address [facility] Co de Phone Number [facility] [address] [place] [address] * HELICOBACTER PYLORI UREASE (STL) (09/19/2019 9:02 AM CDT) Only the most recent of2 resultswithin the time period is included. [facility] Helicobacter pylori Urease Initial Negative Negative 09/20/2019 3:43 PM CDT PSY[facility]ATRIC LABORATORY Helicobacter pylori Urease Final Negative Negative 09/20/2019 3:43 PM CDT [facility] Comment:This is an appended report. These results have been appended to a previously preliminary verified report. Microbiology GASTRIC ANTRAL BIOPSY SPECIMEN / Unknown 09/19/2019 9:02 AM CDT 09/19/2019 9:45 AM CDT Jasson Carrasco MD LAB - MICROBIOLOGY O RDERABLES Performing Organization Address City/[facility]/ZIP Co de Phone Number [facility] [address] [place] [address] * LAB RESULTS ORDER (04/04/2019 7:44 AM [facility]) Narrative 04/04/2019 7:44 AM [facility] Ordered by an unspecified provider. Scanned Document LAB - THERAPEUTIC DR UG MONITORING ORDERABLES * PT-INR (08/27/2018 2:24 PM CDT) [facility] INR 1.1 0.8 - 1.2 [facility] INSURANCE [...] Resulting Agency Comment Lab Testing performed at: [address] ??[facility] [phone] Ivette Monteiro ENGINE LATHE SET UP OPERATOR-WAREHOUSE PULLER LAB - COA GULATION ORDERABLES [facility] INSURANCE BILL [address] [place] [address] * (ABNORMAL) CBC WITH DIFFERENTIAL (07/17/2018 2:54 PM CDT) Only the most recent of9 resultswithin the time period is included. [facility] WBC 6.5 3.4 - 10.8 x10E3/uL [facility] [...] Resulting Agency Comment Lab Testing performed at: [place] [id number] [facility] ??[facility] [phone] Steph Mar APRN-WAREHOUSE PULLER LAB - HEMATO LOGY ORDERABLES [facility] INSURANCE BILL [address] [place] [address] * FL UGI SERIES WO KUB (06/20/2018 [...] - 06/20/2018 6:08 AM CDT Zahira Newell, [employer] ? 06/19/2018 12:29 PM Endotracheal Tube Placement: ? Patient Location: OR. Procedure: intubation (90913). Procedure Section: ?? Sedation: under general anesthesia. [...] resultswithin the time period is included. Pathologist [facility] Glucose 108(H) 74 - 106 mg/dL 06/20/2018 4:37 AM CDT [facility] Sodium 138 136 - 145 mmol/L 06/20/2018 4:37 AM CDT [facility]ATRIC LAB[facility]ATORY Potassium 4.0 3.5 - 5.1 mmol/L 06/20/2018 4:37 AM CDT [facility] Chloride 102 98 - 107 mmol/L 06/20/2018 4:37 AM CDT [facility] CO2 25 23 - 31 mmol/L 06/20/2018 4:37 AM CDT [facility] Calcium 9.6 8.4 - 10.2 mg/dL 06/20/2018 4:37 AM CDT [facility] Anion Gap 11 8 - 16 mmol/L 06/20/2018 4:37 AM CDT [facility] BUN 17 9.8 - 20.1 mg/dL 06/20/2018 4:37 AM CDT [facility] Creatinine 0.78 0.55 - 1.02 mg/dL [...] LAB - CHEMISTRY GIL[facility]ERTO COULTER [facility] [address] [place] [address] * GROSS + MICRO EXAM (STL) (06/19/2018 2:00 PM CDT) Case Report Surgical Pathology Report ? Case: [id number] ? Authorizing Provider: ??Jasson Carrasco MD ? [...] in cassette A1. CH/na 06/24/2018 9:09 AM [facility] Microscopic Description Sections show mild macrovesicular [...] without significant fibrosis. 06/24/2018 9:09 AM [facility] Disclaimer All histochemical and/or immunohistochemical results are interpreted with controls that demonstrate appropriate staining reactions before reporting results. Note on use of immunocytochemistry reagents: This test was developed and its performance characteristic determined by [facility], Department of Laboratory Medicine. It has not been cleared or approved by the U.S. Food and Drug Administration (FDA). The FDA has determined that such clearance or approval is not necessary. The test is used for clinical purpose. It should not be regarded as investigational or for research. This laboratory is certified to perform high complexity testing. 06/24/2018 9:09 AM T [facility] Embedded Images 06/24/2018 9:09 AM T [facility] Pathology/Cytolo gy NEEDLE BIOPSY OF LIVER / Unknown 06/19/2018 2:00 PM CDT 06/19/2018 3:24 PM CDT Jasson Carrasco MD LAB - PATHOLOGY/CYTO LOGY ORDERABLES [facility] [address] [place] [address] * (ABNORMAL) POTASSIUM BLOOD (06/19/2018 9:02 AM CDT) Potassium 3.3(L) 3.5 - 5.1 mmol/L 06/19/2018 9:49 AM CDT [facility] Blood BLOOD SPECIMEN / Unknown Venipuncture / Unknown 06/19/2018 9:02 AM CDT 06/19/2018 9:39 AM CDT Diana Felipe DO LAB - CHEMISTRY [facility] [address] [place] [address] * NM HEPATOBILIARY W CCK EF (04/09/2018 2:08 PM [facility]) Anatomical Region Laterality Modality Abdomen Nuclear Medicine 04/09/2018 2:09 PM [facility] Impressions 04/09/2018 2:10 PM [facility] 1. Initial phase of nuclear medicine HIDA scan is within normal limits, demonstrating patency of the cystic and common bile ducts. 2. Gallbladder ejection fraction is normal. Reading Radiologist: Awilda Gonzalez MD on 04/09/2018 at 2:10 PM Narrative 04/09/2018 2:10 PM [facility] NM Hepatobiliary Scan (HIDA) Indication: Abdominal pain. [...] 04/09/2018 at 2:10 PM Ivette Shields [employer] ENGINE LATHE SET UP OPERATOR-WAREHOUSE PULLER NM ORDERA BLES * LAB (03/21/2018) Jasson Carrasco MD SCANNING ONLY * US ABDOMEN LIMITED (03/19/2018 10:29 AM [facility]) Anatomical Region Laterality Modality Abdomen Ultrasound 03/19/2018 11:0 9 AM [facility] Impressions 03/19/2018 11:10 AM [facility] Hepatic steatosis otherwise unremarkable. Reading Radiologist: Kathi Maloney MD on 03/19/2018 at 11:10 AM Narrative 03/19/2018 11:10 AM [facility] RIGHT UPPER QUADRANT ULTRASOUND INDICATION:Nausea vomiting abdominal [...] * ENDOTRACHEAL TUBE NOTE (12/25/2017 6:02 AM [facility]) Narrative Diana Felipe, DO - 12/25/2017 6:02 AM [facility] Zahira Newell, ENGINE LATHE SET UP OPERATOR-LOGGING CREW FOREMAN ? 12/24/2017 ??9:09 AM Endotracheal Tube Placement: ? Patient Location: OR. Procedure: intubation ([id number]). Procedure Section: ?? Sedation: under general anesthesia. [...] RDERABLES * EKG 12-LEAD (12/24/2017 8:20 AM [facility]) Only the most recent of2 resultswithin the time period is included. Ventricular Rate 71 BPM [facility] Atrial Rate 78 BPM [facility] QRS Duration ms 74 ms [facility] Q-T Interval ms 378 ms [facility] QTC Calculation (Bezet) 410 ms [facility] Calculated P [place] 0 degrees [facility] Calculated R [place] 15 degrees [facility] Calculated T [place] 11 degrees [facility] Interpretation EKG Sinus rhythm Abnormal ECG When compared with ECG of 29-NOV-2015 12:51, No significant change was found Confirmed by PENELOPE CLARK MD ([id number]) on 12/24/2017 3:17:11 PM DP MUSE 12/24/2017 8:20 AM [facility] 12/24/2017 3:17 PM [facility] Diana Felipe DO ECG ORDERABLES DP MUSE [...] This procedure was performed using water-soluble contrast. Aboriginal Ceremonial Celebrant film shows a laparoscopic gastroesophageal band in [...] This procedure was performed using water-soluble contrast. 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 Anatomical Region Laterality Modality Radiographic Caroline ging 03/30/2016 11:3 0 AM [facility] Narrative 03/30/2016 11:31 AM [facility] FLUOROSCOPY: Less than 1 hour ??of fluoroscopy [...] ORDERABL ES * EGD (02/09/2016 9:45 AM [facility]) Narrative [facility] ENDOS[facility] - 02/09/2016 9:45 AM [facility] Jona Dumont MD ? 02/09/2016 ??9:45 AM [facility] Operative Report OPERATIVE REPORT PATIENT:Tiffanie Ruiz MR#: ADMIT DATE: 02/09/2016 ??8:24 AM ACCT#: DATE OF SURGERY: 02/09/2016 : 1960 PHYSICIAN: Jona Dumont MD 56 yrs Body mass index is 44.29 kg/(m^2). PREOPERATIVE DIAGNOSES: dysphagia POSTOPERATIVE DIAGNOSES: SAME Hiatal hernia Surgeon: Jona Dumont MD PUBLIC RELATIONS COUNSELOR: none PROCEDURES PERFORMED: Esophagogastroduodenoscopy ANESTHESIA: MAC by [...] GI PROCEDURE ORDERAB LES Performing Organization Address [facility] de Phone Number [place] [address] * CARDIAC EKG ORDER (11/30/2015 9:57 PM CDT) Narrative 11/30/2015 9:57 PM CDT Ordered by an unspecified provider. Scanned Document CARDIAC SERVICES ORD ERABLES * (ABNORMAL) URINALYSIS MICROSCOPIC ONLY W/REFLEX CULTURE (11/29/2015 6:03 PM CDT) Epithelial Cell UA 5-10(A) 0-2, 2-5 # /hpf 11/29/2015 6:59 PM CDT [facility] Hyaline Casts 2-5(A) 0 - 2 # /lpf 11/29/2015 6:59 PM CDT [facility] Urine URINE SPECIMEN OBTAINED BY CLEAN CATCH PROCEDURE / Unknown 11/29/2015 6:03 PM CDT 11/29/2015 6:06 PM CDT Laura Lakhani MD LAB - URINALYSIS ORD ERABLES Performing Organization Address [facility] Co de Phone Number [facility] [address] [place] [address] * (ABNORMAL) URINALYSIS ROUTINE W/REFLEX TO CULTURE (11/29/2015 6:03 PM CDT) Color UA Yellow Straw, Yellow, Dark Yellow 11/29/2015 6:21 PM CDT [facility] Clarity UA Cloudy 11/29/2015 6:21 PM CDT [facility] Specific [place] UA 1.019 1.005 - 1.030 11/29/2015 6:21 PM CDT [facility] pH UA 5.0 5.0 - 8.0 pH 11/29/2015 6:21 PM CDT [facility] Protein UA Negative Negative 11/29/2015 6:21 PM CDT [facility] Blood UA Negative Negative 11/29/2015 6:21 PM T [facility] Leukocyte UA 2+(A) Negative 11/29/2015 6:21 PM CDT [facility] Nitrite UA Negative Negative 11/29/2015 6:21 PM CDT [facility] Glucose UA Negative Negative 11/29/2015 6:21 PM T [facility] Ketone UA 2+(A) Negative 11/29/2015 6:21 PM CDT [facility] Bilirubin UA Negative Negative 11/29/2015 6:21 PM CDT [facility] Urobilinogen UA 0.2 0.1 - 1.0 EU/dL 11/29/2015 6:21 PM T [facility] WBC UA Auto 10-20(A) 0-2, 2-5 # /hpf 11/29/2015 6:21 PM T [facility] RBC UA Auto 2-5 0-2, 2-5 # /hpf 11/29/2015 6:21 PM T [facility] Bacteria UA Auto 1+(A) None seen 11/29/19 16 6:21 PM [facility] Hyaline Casts UA Auto Reflex to manual(A) 0 - 2 #/lpf 11/29/2015 6:21 PM [facility] Reflex Status Culture to follow 11/29/2015 6:21 PM [facility] Urine URINE SPECIMEN OBTAINED BY CLEAN CATCH PROCEDURE / Unknown 11/29/2015 6:03 PM CDT 11/29/2015 6:06 PM T Laura Lakhani MD LAB - URINALYSIS ORD ERABLES Performing Organization Address [facility] Co de Phone Number [facility] [address] [place] [address] * CULTURE URINE (11/29/2015 6:03 PM CDT) Culture <10,000 CFU/mL urogenital nayla RAVI 12/01/2015 1:47 PM CDT [facility] Urine URINE SPECIMEN OBTAINED BY CLEAN CATCH PROCEDURE / Unknown 11/29/2015 6:03 PM CDT 11/29/2015 6:06 PM CDT Laura Lakhani MD LAB - MICROBIOLOGY O RDERABLES Performing Organization Address [facility] Co de Phone Number [facility] [address] [place] [address], [facility] [phone] * TROPONIN I (11/29/2015 4:43 PM CDT) Only the most recent of2 resultswithin the time period is included. Troponin I <0.015 0.000 - 0.049 ng/mL 11/29/2015 5:14 PM CDT [facility] Blood BLOOD SPECIMEN / Unknown 11/29/2015 4:43 PM CDT 11/29/2015 4:53 PM CDT Narrative [facility] - 11/29/2015 5:14 PM CDT Note: [...] - CHEMISTRY ORDE RABLES Performing Organization Address [facility] Co de Phone Number [facility] [address] [place] [address] * XR CHEST PA AND LATERAL (11/29/2015 [...] - 220 U/L 11/29/2015 4:22 PM CDT [facility] Blood BLOOD SPECIMEN / Unknown 11/29/2015 1:38 PM CDT 11/29/2015 4:13 PM CDT Laura Lakhani MD LAB - CHEMISTRY [facility] [address] [place] [address] * PATHOLOGY/GENETICS HISTORICAL-ONBASE (09/09/2015) Only the most recent of5 resultswithin the time period is included. 09/09/2015 Historical Provider LAB - CHEMISTRY Conchis [place] [facility] [address] * EGD (04/20/2010) Jasson Carrasco MD GI PROCEDURE ORDERAB LES * PATHOLOGY REPORTS - HPF HISTORICAL (12/20/2009 11:03 PM [facility]) 12/20/2009 11:0 3 PM [facility] Narrative [facility] - 12/20/2009 11:03 PM [facility] Soham Hutton MD LAB - PATH OLOGY/CYTOLOGY ORDERABLES [facility] * (ABNORMAL) LIPID PROFILE (01/14/2009 1:20 PM [facility]) Only the most recent of2 resultswithin the [...] patients according to data reported from the [place] Study by Tanesha Huffman M.D. ??The predictive [...] BLOOD SPECIMEN / Unknown 01/14/2009 1:20 PM [facility] 01/14/2009 1:48 PM [facility] Scott Claros MD LAB - CHEMISTRY O YOVANI Performing Organization Address [facility] de Phone Number [facility] [address] [place] [address] * HEMOGLOBIN A1C (07/23/2008 11:32 AM CDT) Hemoglobin A1c 5.7 3.9 - 6.1 % [facility] Estimated Average Glucose 116.9 mg/dl [facility] BLOOD SPECIMEN / Unknown 07/23/2008 11:32 AM CDT Narrative [facility] - 07/23/2008 9:23 PM CDT [id number] Resulting Agency Comment Performed By [facility] - [facility] ? [address] ? [place] [address] Scott Claros MD LAB - CHEMISTRY O YOVANI Performing Organization Address [facility] de Phone Number [facility] [address] [place] [address] * TSH (07/23/2008 11:32 AM CDT) TSH 0.810 0.35 - 5.50 uIU/ml [facility] BLOOD SPECIMEN / Unknown 07/23/2008 11:32 AM CDT Narrative [facility] - 07/23/2008 9:22 PM CDT [phone] Resulting Agency Comment Performed By [facility] ? [address] [place] [address] ? [place] [address] Scott Claros MD LAB - CHEMISTRY O YOVANI Performing Organization Address [facility] de Phone Number [facility] [address] [place] [address] * IRON + TRANSFERRIN PANEL (07/23/2008 11:32 AM CDT) Iron 141.5 50 - 170 ug/dl [facility] Transferrin 257.0 250 - 380 mg/dl [facility] TIBC Calculated 321 250 - 450 mg/dl [facility] Iron Saturation % 44 20 - 55 % [facility] BLOOD SPECIMEN / Unknown 07/23/2008 11:32 AM CDT Narrative Resulting Agency Comment Performed By [facility] ? [address] [place] [address] ? [place] [address] Scott Claros MD LAB - CHEMISTRY O YOVANI Performing Organization Address [facility] de Phone Number [facility] [address] [place] [address] * HCG URINE QUALITATIVE - POINT OF CARE (01/30/2008 3:00 PM [facility]) Only the most recent of3 resultswithin the time period is included. HCG Qual Urine Not Detected Not Detected [facility] Comment , Urine: Test performed by [facility] Staff [facility] URINE / Unknown 01/30/2008 3 :00 PM [facility] Rohith Ortiz DO LAB - POINT OF CAR E ORDERABLES Performing Organization Address [facility] de Phone Number [facility] * CULTURE BLOOD (01/30/2008 1:40 PM [facility]) Only the most recent of2 resultswithin the time period is included. Result [facility] Comment: Final CULTURE ??No Growth BLOOD SPECIMEN / Unknown 01/30/2008 1:40 PM [facility] 01/30/2008 1:51 PM [facility] Narrative Resulting Agency Comment Performed By [facility] ? [address] ? [place] [address] Stephanie Candelaria MD LAB - MICROBIOLO GY ORDERABLES Performing Organization Address [facility] Co de Phone Number [facility] * CULTURE WOUND (01/30/2008 12:54 PM [facility]) Result [facility] Comment: Final GRAM STAIN Light rbc's Rare WBC's No organisms seen ?? CULTURE ENTEROCOCCI ??Light ??Ampicillin ?RAVI ?Sensitive ?0.5 ?? ug/ml ??Vancomycin ?RAVI ?Sensitive ?<=0.5 ?? ug/ml DIPHTHEROIDS ??Light ??two strains ??Probable skin nayla ? contaminant. ABDOMEN AND PELVIS / Unknown 01/30/2008 12:54 PM [facility] 01/30/2008 1:13 PM [facility] Narrative Resulting Agency Comment Performed By [facility] ? [address] ? [place] [address] Stephanie Cadnelaria MD LAB - MICROBIOLO GY ORDERABLES Performing Organization Address City/[facility] Co de Phone Number [facility] * TYPE + SCREEN PANEL (01/15/2008 8:10 AM [facility]) ABO Rh AB Pos [facility] Antibody Screen Neg [facility] BLOOD SPECIMEN / Unknown 01/15/2008 8:10 AM [facility] Tulio Martinez MD LAB - BLOOD BANK OR DERABLES Performing Organization Address City/[facility]/ZIP Co de Phone Number [facility] Care Teams Methods Specialist Engineer Relationship Specialty Start Date End Date Jona Bravo MD [address] [place] [phone] PCP - General Internal Medicine 10/16/22
[2024-03-11] MEDS: ONDANSETRON INJ 4 MG/2 ML VIAL IV PUSH (06:03)
[2024-03-11] MEDS: SODIUM CHLORIDE 0.9% IV 1,000 ML 999 ML IV CONT (06:03)
[2024-03-11] MEDS: MORPHINE SULFATE (*CRX) 4 MG/ML INJ IV PUSH ×2 (06:03→07:27)
[2024-03-11 06:16] LABS: Basophils Percent Auto 0.4 % (0.2-1.2); Eosinophils Absolute Auto 0.1 K/mm3 (0-0.3); Hematocrit 44.3 % (37.0-47.0); Hemoglobin 14.7 g/dL (12.0-15.0); Immature Granulocyte Absolute 0.02 K/mm3 (0.00-0.031); Immature Granulocyte Percent A 0.4 % (0-0.5); Lymphocytes Percent Auto 31.4 % (18.3-44.2); Mean Corpuscular HGB Conc 33.2 g/dl (32-36); Mean Corpuscular Hemoglobin 36.2 pg (26-34); Mean Corpuscular Volume 109.1 fl (80-100); Mean Platelet Volume 9.6 fl (7.4-10.4); Monocytes Absolute Auto 0.6 K/mm3 (0.1-0.6); Monocytes Percent Auto 10.9 % (2.6-8.5); Neutrophils Percent Auto 54.9 % (45.5-73.1); Platelet Count Result 164 k/mm3 (150-375); Red Blood Count 4.06 M/mm3 (4.2-5.4); Red Cell Distribution Width 11.6 % (11.5-14.5); White Blood Count 5.4 K/mm3 (4.5-10.0)
[2024-03-11 06:22] LABS: Add Urine Microscopic? YES; Appearance Urine Cloudy (Clear); Bacteria Urine None Seen /hpf; Bilirubin Urine Negative (Negative); Blood Urine 3+ (Negative); Color Urine Yellow (Yellow); Glucose Urine UA Negative (Negative); Ketones Urine Trace mg/dL (Negative); Leukocyte Esterase Ur Trace LEU/UL (Negative); Nitrate Urine Negative (Negative); Non Pathogenic Casts 0-2; Protein Urine 1+ mg/dL (Negative); RBC Urine >100 /hpf (0-2); Specific Grav Ur 1.025 (1.001-1.035); Squamous Epithelial Cell Urine None Seen /hpf (Few)
[2024-03-11 06:36] LABS: Alanine Aminotransferase 53 U/L (6-35); Albumin Level 4.8 g/dL (3.5-5.1); Alkaline Phosphatase 66 U/L (38-126); Anion Gap 8 mmol/L (4-12); Aspartate Amino Transferase 41 U/L (14-36); Bilirubin,Total 0.8 mg/dL (0.2-1.3); Blood Urea Nitrogen 32 mg/dL (7-17); Calcium 9.5 mg/dL (8.4-10.2); Carbon Dioxide 31 mmol/L (22-30); Chloride 100 mmol/L (98-107); Estimated CRCL calculation 59 ml/min; Estimated Glomerular Filt Rate > 60; Glucose 96 mg/dL (65-110); Potassium 4.3 mmol/L (3.4-5.0); Sodium 139 mmol/L (137-145)
[2024-03-11 07:08] LABS: Anisocytosis 1+; Macrocytosis 1+ (NORMAL); Platelet Estimate Adequate (Adequate); Schistocytes None Seen
[2024-03-11 07:15] VITALS: BP 130/59; O2SAT 100
[2024-03-11] MEDS: ONDANSETRON INJ 4 MG/2 ML VIAL (07:27)
[2024-03-11 07:31] VITALS: BP 118/55; PULSE 74; RESP 14; O2SAT 100
== END 2024-03-11 08:10 | disposition home or self-care (01) ==
PROVIDERS: Emergency Medicine; Emergency Provider Family Medicine; PCP Internal Medicine
DX: N20.0 Calculus of kidney (principal); E89.0 Postprocedural hypothyroidism; E78.5 Hyperlipidemia, unspecified; J45.909 Unspecified asthma, uncomplicated; J98.4 Other disorders of lung; G89.4 Chronic pain syndrome; G47.33 Obstructive sleep apnea (adult) (pediatric); M79.7 Fibromyalgia; Z98.84 Bariatric surgery status; Z86.73 Personal history of transient ischemic attack (TIA), and cerebral infarction without residual deficits; Z85.820 Personal history of malignant melanoma of skin; Z96.1 Presence of intraocular lens; Z98.49 Cataract extraction status, unspecified eye; Z90.710 Acquired absence of both cervix and uterus; K59.00 Constipation, unspecified; N13.30 Unspecified hydronephrosis
CPT/HCPCS: 36415; 74176; 80053; 81001; 85025; 87086; 96361; 96374; 96375; 96376; 99284; J2270; J2405; J7030

== ENCOUNTER 2024-07-08 15:51 | Outpatient (CLI) | payer MEDICARE, BC, SELFPAY ==
--- NOTE | ~2024-07-08 | XR_ITS ---
Supine and upright views of the abdomen Clinical history: Renal stones COMPARISON: 03/07/2024 Findings: Bowel gas pattern is nonspecific. No evidence for obstruction or free air. No abnormal mass lesion or calcification is seen. Osseous structures are intact. Impression: No significant abnormality is seen. Reviewed, dictated and finalized at [facility]. Impression: No significant abnormality is seen.
--- OUTSIDE RECORDS SUMMARY | 2024-07-08 15:57 | XMS_ITS | Clinical Summary ---
Author Organization [facility] Address [address] [place] [address] Care Team Providers Care Lump Machine Operator Name Role Phone Jona Bravo MD Primary Care Provider + Desire Sams RN Unavailable Un available Roscoe Mccollum MD Unavailable [phone] Allergies Active Allergy Reactions Criticality Noted Date Comments Adhesive Tape-Silicones Codeine Hives,Itching,Urt icaria High 06/16/2009 Reaction: Hives, pruritus Doxycycline Other (See comments) Low 05/15/2017 Chest pain Gabapentin Other (See comments) Low 12/08/2015 Hair fell out Hydrochlorothiazide Other (See comments) Low 10/02/2023 Increased CO2 levels Levofloxacin Other (See comments) Low 06/24/2010 Pain in tendons of knees, arms, shoulders Tendons hurt Pt takes ciprofloxacin without problems Meperidine Hives High [...] 6 hours as needed 1 Inhaler 0 01/13/[address] (CYMBALTA) 60 mg capsule Take 1 capsule (60 mg total) by mouth every morning 10/20/19 21 Active multivit-min/iro n/folic acid/K (BARIATRIC MULTIVITAMINS ORAL) Take 1 tablet/capsul e by mouth every morning Active buPROPion XL (WELLBUTRIN XL) 300 mg 24 hr tablet Take 1 tablet (300 mg total) by mouth every morning 10/31/19 22 Active zinc gluconate 30 mg tablet [...] directed once a week On Sunday Active amLODIPine (NORVASC) 2.5 mg tablet Take [...] MOUTH NIGHTLY NEEDED FOR SLEEP 30 capsule 06/28/19 25 Active temazepam (RESTORIL) 15 mg capsule TAKE 1 CAPSULE BY MOUTH NIGHTLY NEEDED FOR SLEEP 30 capsule 05/30/19 25 025 Discontinued Active Problems Problem Noted Date Diagnosed Date Rheumatoid arthritis without rheumatoid factor, multiple sites 12/11/2023 Left knee pain 05/02/2023 Postmenopausal osteoporosis 06/21/2022 Reactive hypoglycemia 06/01/2022 Dysphagia 12/22/2021 Hyperparathyroidism 10/14/2021 Abnormal results of other endocrine function pasquale dies 10/14/2021 Hypoglycemia 10/10/2021 Chronic left shoulder pain 05/10/2021 Degenerative cervical spinal stenosis 09/12/2019 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 08/2019 Cervical radiculopathy 09/12/2019 Cervicalgia 09/12/2019 S/P gastric bypass 06/19/2018 Overview (12/26/2019): 06/19/18 Laparoscopic Judy-en-Y Gastric Bypass Chronic right-sided low back pain without sciati ca 05/02/2018 Sacroiliitis (CMS/HCC) - Right 05/02/2018 DDD (degenerative disc disease), lumbar 05/03/19 Actinic keratosis 04/11/2018 Assessment & Plan (04/11/2018 2:20 PM TELEVISION PRESENTER): - Location/s: Face - Imiquimod Rx - [...] Alzheimer's disease, possible 05/25/2017 Acute pulmonary edema 04/11/2017 MITTAL (dyspnea on exertion) 03/02/2017 Low [...] Encounters Date Type Department Care Team Description 05/29/2024 10:30 AM CDT Office Visit [facility] [address] [place] [address] [address] [place] [address] Kendrick Hernandez MD MEREDITH (obstructive sleep apnea) (Primary Dx); Psychophysiological insomnia; Hypersomnia with sleep apnea; Obesity (BMI 30.0-34.9) 05/29/2024 Orders Only [facility] [address] [place] [address] [address] [address] Kendrick Hernandez MD Entrapment of left ulnar nerve (Primary Dx) 05/29/2024 Telephone [facility] [address] [place] [address] [address] [place] [address] Kendrick Hernandez MD 05/28/2024 4:26 PM CDT - 05/28/2024 11:59 PM CDT Hospital Encounter [facility] [address] [place] [address] Screening mammogram, encounter for Discharge Disposition: Discharge to home or self care 05/21/2024 7:00 PM CDT - 05/21/2024 11:59 PM CDT Hospital Encounter [facility] [address] [place] [address] MEREDITH (obstructive sleep apnea) Discharge Disposition: Discharge to home or self care from Last 3 Months Immunizations Immunization Administration Dates Next Due Hep A, Adult 02/05/2005 Heplisav-b (Hepatitis B) 11/05/2014 Influenza LAIV (Nasal) 02/19/2018,12/20/2015 Influenza, Quadrivalent, Zuly l Culture-based MDCK, Antibiotic Free, Intramuscular 02/19/2018 Influenza, Quadrivalent, Spl it, Intramuscular 02/19/2018,12/20/2015 Influenza, Quadrivalent, Spl it, Preservative Free, Intramuscular 11/14/2019,01/07/2019,10/23/2016 Influenza, Trivalent, Cell Culture-based MDCK, Preservative Free, Antibiotic Free, Intramuscular 11/05/2014 Influenza, Trivalent, IM (MDV) ,10/19/2019,12/15/2015,09/16,10/20/2013,12/18/2012 Influenza, Trivalent, Preser vative Free, Intramuscular 11/04/2014,10/05/2011 [...] often do you attend chur ch or rastafari services? Never 10/13/2021 Do you belong to any clubs o r organizations such as sabianism groups, unions, fraternal or athletic groups, or [...] in a long-term (including now)? No 10/13/2021 PHQ-9 Answer Date Recorded PHQ-9 Total Score 9 05/02/2023 Personal Safety Answer Date Recorded Have you ever been in or are you currently in a harmful physical or emotional relationship or is someone making you feel afraid or unsafe? Denies 01/07/2024 Comments No Sex and Gender Information Value Date Recorded Sex Assigned at Not on file Legal Sex Female 12:46 AM TELEVISION PRESENTER Gender Identity Female 04/08/2019 6:15 AM TELEVISION PRESENTER Sexual Orientation Straight 04/08/2019 6: 15 AM TELEVISION PRESENTER Occupation Industry Job Start Date Job End [...] Sign Reading Time Taken Comments Blood Pressure 141/79 05/29/2024 10:09 AM CDT Pulse 65 05/29/2024 10:09 AM CDT Temperature 36.2 C (97.2 F) 01/07/2024 10:39 AM TELEVISION PRESENTER Respiratory Rate 18 01/07/2024 6:00 PM TELEVISION PRESENTER Oxygen Saturation 98% 05/29/2024 10:09 AM CDT Inhaled Oxygen Concentration - - Weight 85.5 kg (188 lb 6.4 oz) 05/29/2024 10:09 AM CDT Height 165.1 cm (5' 5) 05/29/2024 10:09 AM CDT Body Mass Index 31.35 05/29/2024 10:09 AM CDT Plan of Treatment Health Maintenance Due Date Last Done Comments Albumin Creatinine Ratio, Urine 1959 Colon Cancer Screening-Colonoscopy 1960 Hepatitis C Screening 1960 Dilated Eye Exam 1959 Foot Exam 1959 Zoster Vaccine (2 of 2) 12/08/2021 10/13/2021 Lipid Panel 10/10/2022 10/10/2021, 10/06, 07/27/2016, Additional history exists Covid-19 Vaccine (5 - 2023-2 5 season) 2023 10/13/2021, 12/12/2020, 04/29/2020, Additional history exists Well Visit 65+ 02/05/2024 Depression Screening 05/01/2024 05/02/2023, 05/02/2023, 09/12/2019 Hemoglobin A1C 08/12/2024 02/13/2024, 12/06, 10/17/2023, Additional history exists Osteoporosis Screening-Bone Density Scan 09/08/2024 09/08/2022, 09/08/2021, 09/20/2020, Additional history exists Fall Risk Assessment 12/31/2024 01/01/2024 eGFR 01/06/2025 01/07/2024, 12/06, 02/08/2023, Additional history exists Breast Cancer Screening-Mammogram 05/28/2025 05/28/2024, 09/08/2022, 07/08/2021, Additional history exists Pneumococcal vaccine 65+ (3 of 3 - PCV20 or PCV21) 02/10/2027 02/10/2022, 05/30/2016, 09/16/2014, Additional history exists DTaP/Tdap/Td Vaccine (4 - Td or Tdap) 01/16/2031 01/16/2021, 02/05/2013, 09/14/2011 Influenza Vaccine Completed 12/07/2023, , 11/14/2019, Additional history exists Medical Devices Implanted Type Area Surgical Brace Maker Device Identifier Shelf Expiration Date Model / Serial / Lot [email or web address] Cruzito 180-223 Contour 6fr 26cm Large Inner Lumen Low Profile Bladder Lei Taper Latex Free - [id number] Implanted:Qty: 1 on 04/23/2018 by Christopher Her MD at [facility] Stent Right: Ureter [employer] Cruzito 11/19/2020 180-223 / / [id number] Plates Screws N/A: Neck [employer] Lead Neurostimulator Sleep Apnea Thoracic Permanent Respiratory Sensing Inspire 43cm 4340 - [id number] - [id number] Implanted:Qty: 1 on 01/01/2024 by Caren Abraham MD at [facility] N/A: Chest [employer] 07/21/2026 4340 / [id number] / [employer] Inspire 3 Electrode Cuff Tunnel José Lead Neurostimulator Sterile 4063 - [id number] - [id number] Implanted:Qty: 1 on 01/01/2024 by Caren Abraham MD at [facility] N/A: Neck [employer] 01/22/2026 4063 / [id number] / [employer] Inspire Generator 3028 - [id number] - [id number] Implanted:Qty: 1 on 01/01/2024 by Caren Abraham MD at [facility] N/A: Chest [employer] 07/22/2026 3028 / [id number] / Procedures Procedure Name Priority Date/Time Associated Diagnosis Comments SCREENING MAMMOGRAM BILATERAL W DANILO Schedule Routine, Read Routine (OP Routine) 05/28/2024 4:41 PM CDT Screening mammogram, encounter for PSG (SIMPLE) Routine 05/22/2024 8:42 AM CDT MEREDITH (obstructive sleep apnea) EGFR STAT 01/07/2024 11:11 AM TELEVISION PRESENTER HEMOGLOBIN A1C Routine 12/24/2023 10:56 AM TELEVISION PRESENTER Type 2 diabetes mellitus with other specified complication, unspecified whether exterminator insulin use (HCC) Pre-op testing DEXA AXIAL AND FOREARM BONE DENSITY SCAN Schedule Routine, Read Routine (OP Routine) 09/08/2022 1:34 PM CDT Hyperparathyroidis m LIPID PANEL STAT 10/10/2021 1:52 PM CDT from Last 3 Months or Most Recently Relevant to Health Maintenance Results * Screening Mammogram Bilateral W Danilo (05/28/2024 4:41 PM CDT) Anatomical Region Laterality Modality Breast Bilateral Mammography Impressions 05/28/2024 4:55 PM CDT Bilateral No evidence of malignancy in either breast. OVERALL BI-RADS FINAL ASSESSMENT: 1 - Negative RECOMMENDATION: Recommend bilateral annual screening mammography. Narrative 05/28/2024 4:55 PM CDT EXAMINATION: Screening Mammogram Bilateral W Danilo: 05/28/2024 COMPARISON: Relevant prior studies available at the time of interpretation were reviewed. TECHNIQUE: Mammography was performed with 2D and digital breast tomosynthesis (DBT) images. CAD was utilized. BREAST PARENCHYMAL COMPOSITION: There are scattered areas of fibroglandular density. FINDINGS: Bilateral There is no suspicious mass, calcification, or architectural distortion in either breast. A pacing device obscures a portion of the right axilla. us Self Screening Mammogram IMG MAMMO PROCEDURES Fi nal Result * PSG (05/22/2024 8:42 AM CDT) Impressions Kendrick Hernandez MD - 05/22/2024 8:42 AM CDT Indication for study: Ms. Ruiz is a 64-year-old severe sleep disorder breathing on hypoglossal nerve stimulation therapy. The present study is to assess the above Vital statistics: Age: 64 years Height: 65 in Weight: 191 lb BMI: 31.8 Procedure: A polysomnographic sleep study was performed. Variables monitored and recorded during the study; EEG, EOG, EKG, Chin EMG, snoring, lower extremity EMG, nasal and oral airflow, chest and abdominal wall movements, oxygen saturation and audio/video monitoring . Unless otherwise noted, polysomnogram was recorded and scored in accordance with recommended parameters as outlined in the AASM Manual for the Scoring of Sleep and Associated Events, Version 2.6. Hypopneas were scored in accordance with acceptable parameters as outlined in Chapter VIII, Part 1: Rules for Adults, Category D, Section 1B. Description of Polysomnography findings: Patient had 393.9 minute of monitored time. 327.5 minutes total sleep was present. Sleep efficiency was 83.1%. Latency lights out to stage N1 was 2.5 minute, latency stage N2 from sleep onset was 0 minute, latency stage N3 from sleep onset was 32.5 minutes, and latency stage REM from sleep onset 320.5 minute. Sleep stage recording stage wake was 66.5 minutes. Stage non-REM comprised 286.5 minute (87.5% total sleep time). This included stage N1 24.5 minute (7.5% total sleep time), stage N2 of 238 minutes (72.7% total sleep time), stage N3 of 24 minute (7.3% total sleep time). Stage REM comprised 41 minute (12.5% of total sleep time). Hypoglossal nerve stimulation therapy was initiated and intensities of 0.7-1 volts were attempted. 0.9-1 volts were both found to be the optimal settings. Total recording time at 1 volts was 32 minutes. Sleep efficiency was 92.2% . Adequate REM was obtained. Residual AHI was 0. The lowest oxygen saturation 93%. Average oxygen saturation was 94.9%. Snoring was occasional mild . Limb movement recording did not reveal any periodic limb movements. Average heart rate during wake 70.8, and during sleep was 68.7. Impression: 1. Hypoglossal nerve stimulation therapy is effective in resolving the patient's severe sleep disorder breathing 2. 0.9 as well as 1 volts both found to be optimal 3. Sleep hygiene should be reviewed to assess factors that may improve sleep quality. 4.Weight management and regular exercise should be initiated or continued 5.Avoid alcohol sedatives and other HUMAN RESOURCES ASSISTANT MANAGER depression that may worsen sleep apnea and disrupt normal sleep architecture 6. Patients with sleep apnea may have significant daytime hypersomnolence. If that is the case, driving or handling heavy machinery should be avoided until the apnea and excessive sleepiness have resolved. Narrative Kendrick Hernandez MD - 05/22/2024 8:42 AM CDT In lab study is ready for review us Kendrick Hernandez MD [facility]EP CENTER ORDERABLES Final Re sult * eGFR (01/07/2024 11:11 AM TELEVISION PRESENTER) eGFR >90 >=60 mL/min/1. 73 m2 Comment: Interpretive Data Reference Interval Normal >/= 90 mL/min/1.73m2 Mildly decreased* 60 - 89 mL/min/1.73m2 Mildly to moderately decreased 45 - 59 mL/min/1.73m2 Moderately to severely decreased 30 - 44 mL/min/1.73m2 Severely decreased 15 - 29 mL/min/1.73m2 Kidney Failure < 15 mL/min/1.73m2 *Relative to young adult level Estimated glomerular [...] reviewed 2020. Blood 01/07/2024 11:1 1 AM TELEVISION PRESENTER 01/07/2024 11:14 AM TELEVISION PRESENTER us Ayla Ambrose MD LAB BLOOD ORDERABLE S Final Result [facility] Department of Laboratories [place] [id number] * Hemoglobin A1c (12/24/2023 10:56 AM TELEVISION PRESENTER) Hgb A1C 5.0 4.0 - 5.6 % Estimated Average Glucose 97 mg/dL [facility] Comment: The ADA recommends reporting an estimated Average Glucose (eAG) with all Hemoglobin A1c results using the equation derived from a study of 507 normal and diabetic adults. Minority populations were underrepresented and children were not included. (Diabetes Care 31:7605-7239, 2008). The eAG is not equivalent to a fasting glucose. Blood 12/24/2023 10:5 6 AM TELEVISION PRESENTER 12/24/2023 11:08 AM TELEVISION PRESENTER us Ivet Hoyos NP LAB BLOOD ORDERABLES Final Res ult RUPAL [address] Department [place] [address] * Dexa Axial and Forearm Bone Density Scan (09/08/2022 1:34 PM CDT) Anatomical Region Laterality Modality Wrist, Body N/A Other 09/09/2022 6:09 AM CDT Narrative 09/09/2022 6:11 AM CDT EXAM DESCRIPTION: DEXA AXIAL AND FOREARM BONE DENSITY SCAN REASON FOR STUDY: 62 y/o year old F with given history of: Hyperparathyroidism. Postmenopausal status. Osteoporosis. Surgical Brace Maker/Model: [employer] SL (S/N [id number]) CLINICAL INFORMATION: Current height: 63.5 inches Maximum [...] mass (T-score between -1.0 and -2.5) replaces the previously used term osteopenia Osteoporosis (T-score = or below -2.5) Medical evaluation for secondary causes of low bone mineral density may be appropriate. FRAX is a World Health Organization validated fracture risk assessment tool that calculates a person's 10 year probability of a major osteoporosis related fracture and hip fracture. According to the National Osteoporosis Foundation guidelines, postmenopausal [...] Cecy Ratliff M.D. TW: TW Report ID: [id number] Reading Location: [id number] Procedure Note Cecy Ratliff MD - 09/09/2022 EXAM DESCRIPTION: DEXA AXIAL AND FOREARM BONE DENSITY SCAN REASON FOR STUDY: 62 y/o year old F with given history of: Hyperparathyroidism. Postmenopausal status. Osteoporosis. Surgical Brace Maker/Model: [employer] SL (S/N [id number]) CLINICAL INFORMATION: Current height: 63.5 inches Maximum [...] Cecy Ratliff M.D. TW: TW Report ID: [id number] Reading Location: [place] [address] Dylan Raul To MD IM DXA PROCEDURES Final Result * Lipid panel (10/10/2021 1:52 PM CDT) Cholesterol 139 30 - 199 mg/dL [facility] Comment: Interpretive Data Ages < or = 19 years Acceptable: <170 mg/dL Borderline high: 170-199 mg/dL High: >or= 200 mg/dL Ages > or = 20 years Desirable: <200 mg/dL Borderline high: 200-239 mg/dL High: >or= 240 mg/dL Literature References: 1. Expert Panel on Integrated Guidelines for Cardiovascular Health and Risk Reduction in Children and Adolescents. Pediatrics 2011;128:S213 2. NCEP Expert Panel. Circulation 2004;110:227 Current Interpretive Data was last revised on 2017. Triglycerides 36 <=149 mg/dL [facility] Comment: Interpretive Data Ages < or = 9 years Acceptable: <75 mg/dL Borderline high: 75-99 mg/dL High: >or= 100 mg/dL Ages 10 to 20 years Acceptable: <90 mg/dL Borderline high: 90-129 mg/dL High: >or= 130 mg/dL Ages > or = 20 years Desirable: <150 mg/dL Borderline high: 150-199 mg/dL High: 200-499 mg/dL Very high: >or= 499 mg/dL Literature References: 1. Expert Panel on Integrated Guidelines for Cardiovascular Health and Risk Reduction in Children and Adolescents. Pediatrics 2011;128:S213 2. NCEP Expert Panel. Circulation 2004;110:227 Current Interpretive Data was last revised on 2017. HDL 72 >=40 mg/dL [facility] Comment: Interpretive Data Ages < or = 19 years Acceptable: >45 mg/dL Borderline low: 40-45 mg/dL Low: <40 mg/dL Ages > or = 20 years Desirable: >or= 60 mg/dL Low: <40 mg/dL Literature References: 1. Expert Panel on Integrated Guidelines for Cardiovascular Health and Risk Reduction in Children and Adolescents. Pediatrics 2011;128:S213 2. NCEP Expert Panel. Circulation 2004;110:227 Current Interpretive Data was last revised on 2017. LDL, calculated 60 <=129 mg/dL [facility] Comment: Interpretive Data Ages < or = 19 years Acceptable: <110 mg/dL Borderline high: 110-129 mg/dL High: >or= 130 mg/dL Ages > or = 20 years Optimal: <100 mg/dL Near optimal: 100-129 mg/dL Borderline high: 130-159 mg/dL High: >160 mg/dL Literature References: 1. Expert Panel on Integrated Guidelines for Cardiovascular Health and Risk Reduction in Children and Adolescents. Pediatrics 2011;128:S213 2. NCEP Expert Panel. Circulation 2004;110:227 Current Interpretive Data was last revised on 2017. Non-HDL Cholesterol 67 mg/dL [facility] Comment: Interpretive Data Ages < or = 19 years Acceptable: <120 mg/dL Borderline high: 120-144 mg/dL High: >145 mg/dL Ages > or = 20 years When triglycerides are >200 mg/dL, Non-HDL cholesterol is a secondary target of therapy with treatment goals that are 30 mg/dL greater than the LDL cholesterol target. Literature References: 1. Expert Panel on Integrated Guidelines for Cardiovascular Health and Risk Reduction in Children and Adolescents. Pediatrics 2011;128:S213 2. NCEP Expert Panel. Circulation 2004;110:227 Current Interpretive Data was last revised on 2017. Chol/HDL ratio [address] [facility] Blood 10/10/2021 1:52 PM CDT 10/10/2021 2:07 PM CDT us Mauricio Chaudhary MD LAB BLOOD ORDERABLES Final Result [facility] Department [place] [address] from Last 3 Months or Most Recently Relevant to Health Maintenance Insurance MEDICARE [facility] [place] Advance Directives For more information, please contact: [phone] * Full Code (Latest Code Status on File) Date Activated Date Inactivated Comments 10/10/2021 5:37 PM 10/11/2021 8:50 PM * Full Code Date Activated Date Inactivated Comments 08/18/2017 6:39 PM 08/22/2017 3:42 PM Care Teams Lump Machine Operator Relationship Specialty Start Date End Date Jona Bravo MD PCP - General 05/05/16 Desire Sams, BRICE Registered Nurse 04/03/17 Roscoe Mccollum MD [address] [place] [address] DR THAYER [address] [place] [id number] Anesthesiologist Pain Management 12/21/21
--- OUTSIDE RECORDS SUMMARY | 2024-07-08 15:57 | XMS_ITS | Encounter Summary ---
Author Organization [facility] Address [address] [place] [address] Care Team Providers Care Rapier Insertion Loom Fixer Name Role Phone Jona Bravo MD Primary Care Provider Reason for Visit * Reason Comments Paperwork Encounter Details Date Type Department Care Team (Late st Contact Info) Description 04/16/2024 Telephone [facility] Primary Care [address] [place] [address] Jona Bravo MD [address] [facility] [address] [place] [address] Paperwork Social History Tobacco Use Types Packs/Day Years [...] often do you attend chur ch or mormon services? 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 * Telephone Encounter - Tia Edwards - 04/16/2024 4:56 PM CDT Forms have been faxed. Will wait for confirmation. * Telephone Encounter - Tia Edwards - 04/16/2024 4:18 PM CDT Letter waiting to be signed on provider desk. Will fax once signed. * Telephone Encounter - Jennifer Cornejo - 04/16/2024 2:38 PM CDT Copied from [facility] #[id number]. Topic: Patient or Caregiver Communication Request >> Apr 16, 2024 2:36 PM Jennifer Fair wrote: Patient or Caregiver requesting that a message be sent to Care Team Caller: Tiffanie Ruiz Patient/Caregiver Callback Number: [phone] Call Notes: pt says the her jury duty letter needs to be faxed to the court office fax [phone] Rickey documented in this encounter Plan of Treatment Upcoming Encounters Date Type Department Care Team (Late st Contact Info) Description 07/11/2024 9:00 AM CDT Appointment [facility] CT Scan [address] [place] [phone] [place] [address] [facility] [address] [place] [id number] 07/29/2024 8:30 AM CDT Office Visit [facility] [place] [address] [facility] [address] [place] [address] [place] [address] [facility] [address] [place] [address] 08/25/2024 10:40 AM CDT Office Visit [facility] Primary Care [facility] [address] [facility] [address] [place] [phone] Jona Bravo MD [address] [place] [address] [address] [place] [address] documented as of this encounter Visit Diagnoses Not on filedocumented in this encounter Care Teams Rapier Insertion Loom Fixer Relationship Specialty Start Date End Date Jona Bravo MD PCP - General Internal Medicine 11/25/15 documented as of this encounter
--- OUTSIDE RECORDS SUMMARY | 2024-07-08 15:57 | XMS_ITS | Encounter Summary ---
Author Organization [facility] Healthcare Address [address] [place] [address] Care Team Providers Care Supervisor [employer] Former Name Role Phone Jona Bravo MD Primary Care Provider + Desire Sams RN Unavailable Un available Pooja [place] LCSW Unavailable [phone] Roscoe Mccollum MD Unavailable [phone] Encounter Details Date Type Department Care Team (Late st Contact Info) Description 09/17/2020 Telephone [facility] [address] [place] [id number] Kim Gagnon, RT Social History Tobacco Use [...] on file Legal Sex Female 12:46 AM PAIRING MACHINE OPERATOR Gender Identity Female 04/08/2019 6:15 AM PAIRING MACHINE OPERATOR Sexual Orientation Straight 04/08/2019 6: 15 AM PAIRING MACHINE OPERATOR documented as of this encounter Plan of Treatment Not on file documented as of this encounter Visit Diagnoses Not on filedocumented in this encounter Care Teams Supervisor [employer] Former Relationship Specialty Start Date End Date Jona Bravo MD PCP - General 05/05/16 Desire Sams, RN Registered Nurse 04/03/17 Pooja [place], [facility] [address] [facility] ([facility] [place] [facility]) Mailstop [phone] [place] [address] [facility] Outpatient Forcer Maker 10/12/21 11/09/21 Roscoe Mccollum MD [address] [place] [address] [address] Anesthesiologist Pain Management 12/21/21 documented as of this encounter
--- OUTSIDE RECORDS SUMMARY | 2024-07-08 15:57 | XMS_ITS | Clinical Summary ---
Author Organization [facility] Address [address] [place] [address] Phone Care Team Providers Care Grid Maker Name Role Phone Jona Bravo MD Primary Care Provider [phone] Allergies Active Allergy Reactions Criticality Noted Date [...] tendons of knees, arms, shoulders Reaction: OTHER, , Pain in tendons of knees, arms, shoulders Reaction: OTHER, Pain in tendons of knees, arms, shoulders Reaction: OTHER, Tendons hurt Pt takes ciprofloxacin without problems Meperidine Hives High 06/16/2009 Reaction: Hives, , Reaction: Hives, , , Reaction: HIVES, , Reaction: Hives, , Reaction: Hives, , , Reaction: HIVES, Reaction: Hives, , Reaction: Hives, , , Reaction: HIVES, Prochlorperazine Other (See Comments) Low Other reaction(s): Other (See comments) Reaction: OTHER, Reaction: OTHER, Suvorexant Abdominal Pain Low 06/29/2016 Medications omeprazole [...] mg) by mouth daily. 1 Tablet 1 021 Active ipratropium bromide (ATROVENT) 21 mcg (0.03 %) [place], Non-Aerosol Administer 2 Sprays in each nostril [...] by mouth once daily 90 Tablet 3 024 Active HYDROcodone-venkata taminophen (NORCO) 5-325 mg tabletIndicatio ns:Nonintractab le headache, unspecified chronicity pattern, unspecified headache type Take 1 Tablet by mouth every 6 hours as needed for Pain, Moderate. Max Daily Amount: 4 Tablets 30 Tablet Active spironolactone (ALDACTONE) 25 mg tablet Take 1 Tablet (25 mg) by mouth daily. 30 Tablet 6 024 Active fluticasone-ume clidinium-vilan terol (Trelegy Ellipta) 200-62.5-25 mcg Disk with Device Lot: [id number] ex: 09/2025 qty: 2 1 Each Active fluticasone-ume clidinium-vilan terol (TRELEGY ELLIPTA) 100-62.5-25 mcg Disk with Device Lot: [id number] ex: 09/2025 qty: 2 1 Each Active oseltamivir (TAMIFLU) 75 mg capsule Take 1 Capsule (75 mg) by mouth 2 times daily. 10 Capsule Active busPIRone (BUSPAR) 15 mg TabletIndicatio ns:Anxiety state Take 1 Tablet (15 mg) by mouth 2 times daily. 200 Tablet 3 025 Active losartan (COZAAR) 100 mg tabletIndicatio ns:Primary hypertension TAKE 1/2 (ONE-HALF) TABLET BY MOUTH TWICE DAILY 100 Tablet 3 025 Active tiZANidine (ZANAFLEX) 4 mg Tablet TAKE 1 TABLET BY MOUTH EVERY 8 HOURS NEEDED FOR SPASM 60 Tablet 025 Active losartan (COZAAR) 100 mg tabletIndicatio ns:Primary hypertension Take 0.5 Tablets (50 mg) by mouth 2 times daily. 100 Tablet 024 2024 Discontinued(R eodariuser) tiZANidine (ZANAFLEX) 4 mg Tablet TAKE 1 TABLET BY MOUTH EVERY 8 HOURS NEEDED FOR SPASM 60 Tablet 025 2024 Discontinued losartan (COZAAR) 100 mg tabletIndicatio ns:Primary hypertension Take 0.5 Tablets (50 mg) by mouth 2 times daily. 100 Tablet 3 025 2024 Discontinued losartan (COZAAR) 100 mg tabletIndicatio ns:Primary hypertension TAKE 1/2 (ONE-HALF) TABLET BY MOUTH TWICE DAILY 100 Tablet 3 025 2024 Discontinued Active Problems Patient Care Coordination No te [...] of 40.0-49.9 12/17/2017 02/26/2020 Metabolic acidosis 03/02/2017 0 Acute pulmonary edema 03/02/20172017 Severe episode of recurrent major depressive disorder, without psychotic features 12/08/201510/2023 Nausea 12/08/2015 06/13/2019 Encounters Date Type Department Care Team Description 07/02/2024 External Device Data Initial Department [address] [place] [address] Dr SHEARERN: [place] [address] Gio Villavicencio Md 06/26/2024 12:43 PM CDT - 06/26/2024 11:59 PM CDT Hospital Encounter [facility] [place] [address] [place] [address] Bassam Sevilla MD Discharge Disposition: Home or Self Care 06/25/2024 External Device Data Initial Department [address] [place] [address] Dr ATTN: Prelude [place], [place] [address]Sabine Villavicencio Md 06/24/2024 External Device Data STL ABSTRACTION Provider, Abstract 06/23/2024 External Device Data Initial Department [address] [place] [address] Dr CANCHOLA: Prelude [place], [place] [address]Sabine Villavicencio Md 06/18/2024 External Device Data Initial Department [address] [place] [address] Dr CANCHOLA: Prelude [place], [place] [address]Sabine Villavicencio Md 06/17/2024 1:30 PM CDT Procedure visit [facility] [address] [facility] [address] [place] [phone] Tami Thorne PA-C Diabetic hypoglycemia (CMS/HCC) (Primary Dx) 06/17/2024 Telephone [facility] [place] [address] [place] [address] Bassam Sevilla MD Referral Request; Labs Only 06/17/2024 Orders Only [facility] [place] [address] [place] [address] Bassam Sevilla MD Primary hyperparathyroidism (Primary Dx) 06/16/2024 External Device Data Initial Department [address] [place] [address] Dr CANCHOLA: Prelude [place], [place] [address]Sabine Villavicencio Md 06/15/2024 Refill [place] [address] [place] [address] Jona Bravo MD 06/12/2024 Abstract [facility] [address] [place] [address] Jona Bravo MD 06/12/2024 Orders Only [facility] [address] [place] [address] Provider, Abstract 06/11/2024 External Device Data Initial Department [address] [place] [address] Dr CANCHOLA: Prelude ADT [place], [place] [address]Sabine Villavicencio Md 06/11/2024 Refill [facility] [address] [place] [address] Jona Bravo MD Primary hypertension 06/10/2024 [facility] [address] [facility] [address] [place] [address] Jona Bravo MD Primary hypertension 06/10/[address] [place] [address] Jona Bravo MD Primary hypertension 06/09/2024 External Device Data Initial Department [address] [place] [address] Dr CANCHOLA: [place] [address] [facility], 06/04/2024 External Device Data Initial Department [address] [place] [address] Dr CANCHOLA: [place] [address] [facility], Md 06/02/2024 External Device Data Initial Department [address] [place] [address] Dr CANCHOLA: [place] [address] [facility], Md 05/30/2024 [place] [id number] [facility] [address] [place] [address] Jona Bravo MD Anxiety state 05/28/2024 External Device Data Initial Department [address] [place] [address] Dr CANCHOLA: [place] [address] [facility], Md 05/26/2024 External Device Data Initial Department [address] [place] [address] Dr CANCHOLA: [place] [address] [facility], 05/21/2024 External Device Data Initial Department [address] [place] [address] Dr CANCHOLA: [place] [address] [facility], Md 05/20/[address] [facility] Judah Naomi [facility] [address] [facility] [place] [address] Skip Kumari CGM reschedule 05/19/2024 External Device Data Initial Department [address] [place] [address] Dr CANCHOLA: [place] [address] [facility], 05/19/2024 Telephone [facility] [address] [facility] [address] [place] [address] Skip Kumari CGM time reminder 05/14/2024 External Device Data Initial Department [address] [place] [address] Dr SHEARERN: [place] [address] [facility], Md 05/12/2024 External Device Data Initial Department [address] [place] [address] Dr CANCHOLA: [place] [address] [facility], Md 05/08/2024 Refill [facility] [address] [place] [address] Jona Bravo MD 05/07/2024 External Device Data Initial Department [address] [place] [address] Dr SHEARERN: [place] [address] [facility], Md 05/05/2024 External Device Data Initial Department [address] [place] [address] Dr CANCHOLA: [place] [address] [facility], Md 04/30/2024 External Device Data Initial Department [address] [place] [address] Dr SHEARERN: [place] [address] [facility], Md 04/28/2024 External Device Data Initial Department [address] [place] [address] Dr SHEARERN: [place] [address] [facility], Md 04/23/2024 External Device Data Initial Department [address] [place] [address] Dr CANCHOLA: [place] [address] [facility], Md 04/22/2024 Telephone [facility] [address] [place] [address] Freddy Hdez Schedule CGM Appmt 04/22/2024 Abstract [facility] [id number] [place] [address] [place] [address] Bassam Sevilla MD 04/21/2024 External Device Data Initial Department [address] [place] [address] Dr CANCHOLA: [place] [address] [facility], Md 04/17/2024 [facility] [address] [place] [address] Jona Bravo MD 04/17/2024 Orders Only [facility] [address] [place] [phone] Brett Ruth PA ERRONEOUS ENCOUNTER--DISREGARD (Primary Dx) 04/17/2024 Abstract [facility] [address] [place] [phone] Jona Bravo MD 04/16/2024 Telephone [facility] [address] [place] [address] Jona Bravo MD Paperwork 04/16/2024 External Device Data Initial Department [address] [place] [address] Dr CANCHOLA: [place] [address] [facility], 04/14/2024 External Device Data STL ABSTRACTION Provider, Abstract 04/09/2024 External Device Data Initial Department [address] [place] [address] Dr CANCHOLA: Prelude [place], [place] [address] 04/08/2024 External Device Data STL ABSTRACTION Provider, Abstract 04/07/2024 External Device Data Initial Department [address] [place] [address] Dr CANCHOLA: Prel[place]T [place], [place] [address]Sabine Powers [facility] from Last 3 Months Immunizations [...] COVID-19 VACCINE - EMERGENCY USE AUTHORIZATION, MRNA, [id number](PF) 30 MCG/0.3 ML IM SUSP 12/12/2020,04/29/2020,04/08/2020 (PNEUMOVAX 23)(50 YRS UP) PN EUMOCOCCAL POLYSACCHARIDE (PPV23) 0.5 ML, IM 05/30/2016 (PREVNAR 13)(6 WKS UP) PNEUM OCOCCAL CONJUGATE (PCV13) 0.5 ML, IM 09/16/2014 (PREVNAR 20)(6 WKS UP) PNEUM OCOCCAL CONJUGATE VACCINE 20-VALENT (PCV20), POLYSACCHARIDE [id number] CONJUGATE, ADJUVANT 0.5 ML (PF) IM 02/10/2022 [...] 11/14/2019 Influenza Seasonal Unspecifi ed Formulation IM 12/07/2023,11/22/2020,11/22/2020,10/18,01/07/2019,12/15/2015,09/16/2014 ,10/06/2013 Influenza Seasonal Unspecifi ed Formulation PF IM [...] Father Kendell A Farooq Hypertension Father Kendell Agudelocker Other Father Kendell A Farooq pulmonary fi brosis Cancer Maternal Aunt 1 female Cancer Maternal Aunt 2 female Cancer Maternal Grandmother Alpha Farooq cervica l female Emphysema Mother Pat Agudelocker Heart Disease Mother Pat E Farooq Hypertension Mother Pat Ayoner Lung Cancer Mother Pat Trivedi Small cell Thyroid Disease Mother Pat Agudelocker Cancer Paternal Aunt x3 female Cancer Paternal [...] often do you attend chur ch or adventist services? 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 Not on file Not on file Last Filed Vital Signs Vital Sign Reading Time Taken Comments Blood Pressure 131/74 06/17/2024 1:22 PM CDT Pulse 92 06/17/2024 1:22 PM CDT Temperature 36.6 C (97.8 F) 06/17/2024 1:22 PM CDT Respiratory Rate 18 11/26/2023 3:04 PM CDT Oxygen Saturation 97% 06/17/2024 1:22 PM CDT Inhaled Oxygen Concentration - - Weight 86.7 kg (191 lb 1.6 oz) 06/17/2024 1:22 P M CDT Height 160 cm (5' 3) 06/17/2024 1:22 PM CDT Body Mass Index 33.85 06/17/2024 1:22 PM CDT Plan of Treatment Upcoming Encounters Date Type Department Care Team (Late st Contact Info) Description 07/11/2024 9:[address] [facility] [place] [address] [facility] [address] [place] [address] [place] [address] [facility] [address] [place] [address] 07/29/2024 8:30 AM CDT Office Visit [facility] [address] [facility] [address] [place] [address] [place] [address] [place] [address] 08/25/2024 10:40 AM CDT Office Visit [facility] Primary Care [facility] [address] [facility] [address] [place] [address] Jona Bravo MD [address] [facility] [address] [place] [address] Health Maintenance Due Date Last Done Comments FIT/ DNA Q 3 YEARS (AUTO ORDER) 1977 FIT/FOBT Q 1 YEAR (AUTO ORDER) 1977 FIT-DNA Q 3 years 02/05/2004 FIT/FOBT Q 1 year 02/05/2004 Flex Sig/CT Colonography Q 5 years 02/05/2004 RSV VACCINE (60+ or ) (1 - Risk 60-74 years 1-dose series) 2019 ZOSTER VACCINE (2 of 2) 12/08/2021 10/13/2021 COVID-19 Vaccine (6 - 2023-2 5 season) 2023 01/08/2023, 10/13/2021, 12/12/2020, Additional history exists LDL CHOLESTEROL ANNUAL 02/09/2024 , 06/15/2022, 08/18/2021, Additional history exists DIABETES ANNUAL FOOT EXAM 06/21/2024 06/22/2023 Traditional Medicare (ACO) A nnual Wellness Visit 06/22/2024 06/22/2023, 10/14/2021, 04/25/2018 DIABETES HBA1C Q 6 MONTHS 08/12/20242024, 12/24/2023, 10/17/2023, Additional history exists DIABETES ANNUAL RETINAL EXAM 09/27/2024, 07/07/2022, 04/19/2021, Additional history exists DIABETES MICROALBUMIN ANNUAL SCREEN 11/25/2024 11/26/2023, 08/06/2015 DIABETES: A1C (Auto Order) 02/12/202502/12, 12/24/2023, 10/17/2023, Additional history exists BREAST CANCER SCREENING 05/28/2025 05/29/19 25, 05/28/2024, 05/28/2024, Additional history exists FLEX SIG/CT COLONOGRAPHY Q 5 YEARS (AUTO ORDER) 08/03/2025 08/03/2020, 08/03/2020 OSTEOPOROSIS SCREENING 09/10/2027 , 09/09/2022, 09/08/2022, Additional history exists COLORECTAL CANCER SCREENING (AUTO ORDER) 08/03/2030 08/03/2020, 08/03/2020, 08/03/2020 COLORECTAL SCREENING 08/03/2030 08/03/2020, 08/03/2020, 08/03/2020, Additional history exists Colorectal Cancer Screening (AUTO ORDER) 08/03/2030 Colorectal Cancer Screening 08/03/2030 DTAP/TDAP/TD VACCINES (4 - T d or Tdap) 01/16/2031 01/16/2021, 02/05/2013, 09/14/2011 PNEUMOCOCCAL VACCINE 50+ YEARS Completed 0 02/10/2022, 05/30/2016, 09/16/2014, Additional history exists INFLUENZA VACCINE Completed 12/07/2023, , 05/08/2022, Additional history exists Medical Devices Implanted Type Area Community Development Planner Device Identifier Shelf Expiration Date Model / Serial / Lot Lap Band Bladder Sling Procedures Procedure Name Priority Date/Time Associated Diagnosis Comments US HEAD NECK TISSUES Routine 06/26/2024 1:59 PM CDT Primary hyperparathyroidism GENERAL PROCEDURE Routine 06/17/2024 1:3 0 PM CDT Diabetic hypoglycemia (CMS/HCC) MAMMO SCREEN BILAT W OR WO CAD Routine 05/28/2024 1:46 PM CDT HEMOGLOBIN A1C Routine 02/13/2024 3:36 PM DOOR MANAGER MICROALBUMIN/CREAT ININE RATIO, RANDOM UR Routine 11/26/2023 4:09 PM CDT DM type 2, goal HbA1c < 7% (CMS/HCC) LIPID PANEL Routine 02/08/2023 11:08 AM DOOR MANAGER Other hyperlipidemia XR DEXA BONE DENSITY AXIAL 1 OR MORE SITES Routine 09/20/2020 Menopause HX COLONOSCOPY Routine 08/03/2020 from Last 3 Months or Most Recently Relevant to Health Maintenance Results * US HEAD NECK TISSUES (06/26/2024 1:59 PM CDT) Anatomical Region Laterality Modality Head Ultrasound 06/26/2024 2:02 PM CDT Impressions 06/26/2024 4:04 PM CDT IMPRESSION: Increase in size of right mid thyroid lobe nodule. This meets criteria for fine needle aspiration if not previously performed. Increase in size of right isthmus nodule and new left inferior thyroid nodule. Follow-up thyroid ultrasound in one year is recommended to evaluate interval change. DICTATION LOCATION: Location 4 ACR 2017 TI-RADS Recommendations TR5 Highly suspicious (>=7 points) (risk of malignancy > 20%) >=1 cm: FNA 0.5-0.9 cm: follow-up US every year for 5 years <0.5 cm: no further evaluation TR4 Moderately suspicious (4-6 points) (risk of malignancy 5-20%) >=1.5 cm: FNA 1-1.4 cm: follow-up US in 1, 2, 3, and 5 years <1.0 cm: no further evaluation TR3 Mildly suspicious (3 points) (risk of malignancy 2-5%) >=2.5 cm: FNA 1.5-2.4 cm: follow-up US in 1, 3, and 5 years <1.5 cm: no further evaluation TR2 Not suspicious (2 points) and TR1 Benign (0 points) (risk of malignancy < 2%) No FNA or follow-up US Narrative 06/26/2024 4:04 PM CDT ULTRASOUND NECK TISSUES DATE: 06/26/2024 1:59 PM HISTORY: Primary hyperparathyroidism; COMPARISON: 05/29/2018 FINDINGS: The right thyroid lobe measures 5.2 x 2.7 x 1.9 cm. The left thyroid lobe measures 4.4 x 1.5 x 1.3 cm. The isthmus measures 2.9 mm. The thyroid gland is homogeneous in echotexture. No perithyroid lymphadenopathy is seen. NODULE 1: Right lobe mid pole measures 2.5 x 2.3 x 3.0 cm. This has increased in size previously measuring 2.5 x 2.2 x 2.4 cm. Composition: Solid or almost completely solid - 2 points Echogenicity: Hyper- or isoechoic: 1 point Shape: Wider than tall: 0 points Margin: Smooth: 0 points Echogenic foci: Macrocalcifications: 1 point Total points: 4 ACR TI-RADS risk category: TR4: 4-6 points - Moderately suspicious If nodule greater than or equal to 1 cm - followup If nodule greater than or equal to 1.5 cm - FNA - Followup: 1, 2, 3 and 5 years NODULE 2: Right lobe isthmus pole measures 2.2 x 1.6 x 1.0 cm. This has increased in size previously measuring 1.4 x 1.1 x 1.2 cm. Composition: Solid or almost completely solid - 2 points Echogenicity: Hyper- or isoechoic: 1 point Shape: Wider than tall: 0 points Margin: Ill-defined: 0 points Echogenic foci: None: 0 points Total points: 3 ACR TI-RADS risk category: TR3: 3 points - Mildly suspicious If nodule greater than or equal to 1.5 cm - followup. If nodule greater than or equal to 2.5 cm - FNA - Followup: 1, 3 and 5 years NODULE 3: Left lobe inferior pole measures 1.1 x 1.1 x 1.1 cm. This nodule was not definitely identified on previous exam. Composition: Solid or almost completely solid - 2 points Echogenicity: Hyper- or isoechoic: 1 point Shape: Wider than tall: 0 points Margin: Smooth: 0 points Echogenic foci: None: 0 points Total points: 3 ACR TI-RADS risk category: TR3: 3 points - Mildly suspicious If nodule greater than or equal to 1.5 cm - followup. If nodule greater than or equal to 2.5 cm - FNA - Followup: 1, 3 and 5 years Procedure Note Kassy Leal MD - 06/26/2024 ULTRASOUND NECK TISSUES DATE: 06/26/2024 1:59 PM HISTORY: Primary hyperparathyroidism; COMPARISON: 05/29/2018 FINDINGS: The right thyroid lobe measures 5.2 x 2.7 x 1.9 cm. The left thyroid lobe measures 4.4 x 1.5 x 1.3 cm. The isthmus measures 2.9 mm. The thyroid gland is homogeneous in echotexture. No perithyroid lymphadenopathy is seen. NODULE 1: Right lobe mid pole measures 2.5 x 2.3 x 3.0 cm. This has increased in size previously measuring 2.5 x 2.2 x 2.4 cm. Composition: Solid or almost completely solid - 2 points Echogenicity: Hyper- or isoechoic: 1 point Shape: Wider than tall: 0 points Margin: Smooth: 0 points Echogenic foci: Macrocalcifications: 1 point Total points: 4 ACR TI-RADS risk category: TR4: 4-6 points - Moderately suspicious If nodule greater than or equal to 1 cm - followup If nodule greater than or equal to 1.5 cm - FNA - Followup: 1, 2, 3 and 5 years NODULE 2: Right lobe isthmus pole measures 2.2 x 1.6 x 1.0 cm. This has increased in size previously measuring 1.4 x 1.1 x 1.2 cm. Composition: Solid or almost completely solid - 2 points Echogenicity: Hyper- or isoechoic: 1 point Shape: Wider than tall: 0 points Margin: Ill-defined: 0 points Echogenic foci: None: 0 points Total points: 3 ACR TI-RADS risk category: TR3: 3 points - Mildly suspicious If nodule greater than or equal to 1.5 cm - followup. If nodule greater than or equal to 2.5 cm - FNA - Followup: 1, 3 and 5 years NODULE 3: Left lobe inferior pole measures 1.1 x 1.1 x 1.1 cm. This nodule was not definitely identified on previous exam. Composition: Solid or almost completely solid - 2 points Echogenicity: Hyper- or isoechoic: 1 point Shape: Wider than tall: 0 points Margin: Smooth: 0 points Echogenic foci: None: 0 points Total points: 3 ACR TI-RADS risk category: TR3: 3 points - Mildly suspicious If nodule greater than or equal to 1.5 cm - followup. If nodule greater than or equal to 2.5 cm - FNA - Followup: 1, 3 and 5 years IMPRESSION: Increase in size of right mid thyroid lobe nodule. This meets criteria for fine needle aspiration if not previously performed. Increase in size of right isthmus nodule and new left inferior thyroid nodule. Follow-up thyroid ultrasound in one year is recommended to evaluate interval change. DICTATION LOCATION: Location 4 ACR 2017 TI-RADS Recommendations TR5 Highly suspicious (>=7 points) (risk of malignancy > 20%) >=1 cm: FNA 0.5-0.9 cm: follow-up US every year for 5 years <0.5 cm: no further evaluation TR4 Moderately suspicious (4-6 points) (risk of malignancy 5-20%) >=1.5 cm: FNA 1-1.4 cm: follow-up US in 1, 2, 3, and 5 years <1.0 cm: no further evaluation TR3 Mildly suspicious (3 points) (risk of malignancy 2-5%) >=2.5 cm: FNA 1.5-2.4 cm: follow-up US in 1, 3, and 5 years <1.5 cm: no further evaluation TR2 Not suspicious (2 points) and TR1 Benign (0 points) (risk of malignancy < 2%) No FNA or follow-up US us Bassam Sevilla MD US ORDERABLES Final Re sult * UNLISTED PROCEDURE ONLY (06/17/2024 1:30 PM CDT) Narrative Tami Thorne PA-C - 06/17/2024 1:30 PM CDT Tami Thorne PA-C 06/17/2024 2:27 PM General Procedure Date/Time: 06/17/2024 1:30 PM Performed by: Tami Thorne PA-C Authorized by: Tami Thorne PA-C Consent: Consent obtained: Verbal and written Consent given by: Patient Risks discussed: Bleeding, infection and pain Alternatives discussed: No treatment and delayed treatment [place] protocol: Procedure explained and questions answered to patient or proxy's satisfaction: yes Relevant documents present and verified: yes Test results available and properly labeled: yes Imaging studies available: NA. Required blood products, implants, devices, and special equipment available: yes Site/side marked: yes Immediately prior to procedure, a time out was called: yes Patient identity confirmed: Verbally with patient Indications: Indications: Hypoglycemia Pre-procedure details: Skin preparation: ChloraPrep Preparation: Patient was prepped and draped in the usual sterile fashion Anesthesia (see MAR for exact dosages): Anesthesia method: Local infiltration Local anesthetic: Lidocaine 1% WITH epi Post-procedure details: Patient tolerance of procedure: Tolerated well, no immediate complications Comments: Continuous glucose monitor (CGM) removal: Previous sensor located by palpation in the left upper arm and marked. Skin prep applied, draped, and local anesthesia injected. Incision made just kit blade. Sensor located and removed successfully. Pressure applied to incision site, closed with absorbable suture, and dressed. Patient tolerated procedure well. No complications noted. Incision care instructions provided. Patient instructed to call if signs/symptoms of infection develop. Continuous glucose monitor (CGM) insertion: Insertion area located in the left upper arm and marked using the incision template. Area cleansed, draped, and local anesthesia injected. Incision made using kit blade approximately 5mm wide and 3-5mm deep. The pocket was then created using the blunt dissector provided. The insertion tool was then used to advance the sensor into the pocket and it was deployed without difficulty. The insertion tool was removed and the sensor was verified out of the tool and in the pocket in appropriate position Pressure applied to the incision site for 3 minutes, hemostasis was achieved, closed incision with absorbable suture and dressed with gauze and Tegaderm. Patient tolerated the procedure well. No complications noted. Incision care instructions provided. Patient instructed to call if signs/symptoms of infection develop. Patient education performed regarding the device and activation. Successful placement of an Eversense 365 CGM Tami Thorne PA-C PROCEDURE/MINOR SURGI RAMOS ORDERABLES Final Result * MAMMO SCREEN BILAT W OR WO CAD (05/28/2024 1:46 PM CDT) Anatomical Region Laterality Modality Breast Bilateral Mammography Abstract Provider MAMMO ORDERABLES Edited Result - Final * HEMOGLOBIN A1C (02/13/2024 3:36 PM DOOR MANAGER) ABSTRACTED HGB A1C 5.7 % [facility] Blood 02/13/2024 3:36 PM DOOR MANAGER Jona Bravo MD CHEMISTRY ORDERABLES Final Re sult [facility] CLIA# [id number] [facility] [facility] [address] [place] [address] * MICROALBUMIN/CREATININE RATIO, RANDOM UR (11/26/2023 4:09 PM CDT) Creatinine, Urine 195 20 - 275 mg/dL [facility] MICROALBUMIN, URINE 2.8 See Note: mg/dL [facility] Comment: Reference Range: Reference Range Not established MICROALBUMIN/CREAT RATIO, UR 14 <30 mg/g creat [facility] Comment: The ADA defines abnormalities in albumin excretion as follows: Albuminuria Category Result (mg/g creatinine) Normal to Mildly increased <30 Moderately increased 30-299 Severely increased > OR = 300 The ADA recommends that at least two of three specimens collected within a 3-6 month period be abnormal before considering a patient to be within a diagnostic category. Test Performed at: [facility] [id number] [place] [address] Law Nathan MD Urine URINE SPECIMEN OBTAINED BY CLEAN CATCH PROCEDURE / Unknown 11/26/2023 4:09 PM CDT 11/27/2023 6:37 AM CDT us Jona Bravo MD URINE ORDERABLES Final Result [facility] [phone] [facility] [address] [place] [address] * LIPID PANEL (02/08/2023 11:08 AM DOOR MANAGER) CHOLESTEROL 168 <200 mg/dL [facility] HDL 77 > OR = 50 mg/dL [facility] TRIGLYCERIDE 45 <150 mg/dL [facility] LDL CALCULATED 78 mg/dL (calc) [facility] Comment: Reference range: <100 Desirable range <100 mg/dL for primary prevention; <70 mg/dL for patients with CHD or diabetic patients with > or = 2 CHD risk factors. LDL-C is now calculated using the Tai-Romo calculation, which is a validated novel method providing better accuracy than the Friedewald equation in the estimation of LDL-C. Tai SS et al. YONI. 2013;310(19): 3567-4227 (http://education.MashON/faq/ZAW919) CHOL/HDL RATIO 2.2 <5.0 (calc) [facility] TOTAL NON-HDL CHOL(LDL+VLDL) 91 <130 mg/dL (calc) [facility] Comment: For patients with diabetes plus 1 major ASCVD risk factor, treating to a non-HDL-C goal of <100 mg/dL (LDL-C of <70 mg/dL) is considered a therapeutic option. Test Performed at: [email or web address] [id number] [place] [address] Law Nathan MD Blood 02/08/2023 11:0 8 AM DOOR MANAGER 02/08/2023 11:09 AM DOOR MANAGER Jona Bravo MD CHEMISTRY ORDERABLES Final Re sult Performing Organization Address [facility] Co de Phone Number [facility] [phone] [address] * XR DEXA BONE DENSITY AXIAL 1 OR MORE SITES (09/20/2020) Anatomical Region Laterality Modality Other Jona Bravo MD DIAGNOSTIC IMAGING ORDERABLES Final Result * HX COLONOSCOPY (08/03/2020) Abstract Provider GENERIC SURGICAL HISTORY Edite d Result - Final Performing Organization Address [facility] Co de Phone Number EXTERNAL LAB from Last 3 Months or Most Recently Relevant to Health Maintenance Insurance MEDICARE PART A AND B BS BLUE PREFERRED Commercial MEDICARE PART A AND B BS BLUE PREFERRED Advance Directives For more information, please contact: [phone] * Full Code (Latest Code Status on File) Date Activated Date Inactivated Comments 03/02/2017 8:56 PM 03/05/2017 9:44 PM * Full Code Date Activated Date Inactivated Comments 07/17/2014 10:57 AM 07/17/2014 4:49 PM * Full Code Date Activated Date Inactivated Comments 04/24/2014 2:54 PM 04/24/2014 8:53 PM * Full Code Date Activated Date Inactivated Comments 04/24/2014 11:13 AM 04/24/2014 2:54 PM Care Teams Grid Maker Relationship Specialty Start Date End Date Jona Bravo MD PCP - General Internal Medicine 11/25/15
--- OUTSIDE RECORDS SUMMARY | 2024-07-08 15:57 | XMS_ITS | Clinical Summary ---
Author Organization [facility] Address [address] [place] [address] Phone Care Team Providers Care Graduate Internship Name Role Phone Jona Bravo MD Primary Care Provider [phone] Allergies Active Allergy Reactions Criticality Noted Date Comments Codeine Itching,Hives High 06/16/2009 Reaction: Hives, , Reaction: Hives, , , Reaction: HIVES, , pruritus pruritus Doxycycline Other (see comments) 05/15/2017 [...] of knees, arms, shoulders Reaction: OTHER, , Tendons hurt Pt takes ciprofloxacin without problems Other reaction(s): Other [...] , Reaction: Hives, , , Reaction: HIVES, Other Other (see comments) 07/28/2020 Pregabalin Swelling Low 12/08/2015 Prochlorperazine Other (see comments) Low 07/28/2020 Reaction: OTHER, Reaction: OTHER, Reaction: OTHER, Other reaction(s): Other (See comments) Reaction: OTHER, Reaction: OTHER, Suvorexant Other (see comments) Low 06/29/2016 Medications albuterol HFA (PROVENTIL HFA) 108 (90 Base) MCG/ACT inhaler 90 mcg 02/17/2015 Act miguel aspirin EC 81 MG EC tablet Take 81 mg by mouth once a week Active busPIRone (BUSPAR) 30 MG tablet Take 30 mg by mouth in the morning and 30 mg in the evening. 03/11/2020 Active tiZANidine (ZANAFLEX) 4 MG tablet Take 4 mg by mouth every 6 hours as needed 07/28/1999 Active pravastatin (PRAVACHOL) 40 MG tablet 09/14/2014 Active levothyroxine (SYNTHROID) 88 MCG tablet Take 88 mcg by mouth in the morning. 09/14/2011 Active Magnesium Oxide 500 MG tablet Take 500 mg by mouth in the morning. 07/23/2020 Active cyanocobalamin (VITAMIN B-12) 1000 MCG/ML injection 03/30/2023 Active Active Problems Problem Noted Date Diagnosed Date Nephrolithiasis 12/21/2020 Encounters Date Type Department Care Team Description 05/28/2024 10:40 AM CDT Office Visit [facility] [address] [place] [address] Janeth Betts PA Nephrolithiasis (Primary Dx) from Last 3 Months Immunizations Immunization Administration Dates Next Due Hepatitis A 02/05/2005 Hepatitis B 11/05/2014 Influenza (IM) Preservative Free 02/19/2018,10/08,10/05/2011 Influenza Injectable Mdck Qu adrivalent Preservative 02/19/2018 Influenza LAIV (Nasal) 02/19/2018,12/20/2015 Influenza TIV (IM) 12/07/2023,,10/19/2019,01/07,12/15/2015,09/16/2014,10/20/2013 ,12/18/2012 Influenza Vac Tissue-culture d Subunit Quadrivalent 11/05/2014 [...] Tobacco: Never Tobacco Cessation:Counseling Given: Not Answered Comments Unknown Sex and Gender Information Value Date Recorded Sex Assigned at Female 07/27/2020 1:49 PM MDT Legal Sex Female 12:50 PM MDT Gender Identity Female 07/27/2020 1:49 PM MDT Sexual Orientation Straight 07/27/2020 1: 49 PM MDT Last Filed Vital Signs Vital Sign Reading Time Taken Comments Blood Pressure 130/80 05/28/2024 10:36 AM CDT Pulse 67 05/28/2024 10:36 AM CDT Temperature 36.8 C (98.2 F) 07/28/2020 1:59 PM CDT Respiratory Rate - - Oxygen Saturation - - Inhaled Oxygen Concentration - - Weight 86.2 kg (190 lb) 05/28/2024 10:36 AM CDT Height 160 cm (5' 3) 05/28/2024 10:36 AM CDT Body Mass Index 33.66 05/28/2024 10:36 AM CDT Plan of Treatment Upcoming Encounters Date Type Department Care Team (Late st Contact Info) Description 09/11/2024 2:20 PM CDT Office Visit [facility] [address] [place] [address] Janeth Betts PA [address] [place] [address] 10/07/2025 1:20 PM CDT Office Visit [facility] [address] [place] [address] Uche Vela MD [address] [place] [address] Health Maintenance Due Date Last Done Comments Diabetic Foot Exam 1969 Ophthalmology Exam 1969 Pneumococcal PPSV23/PCV13 65 + Years / High and Highest Risk (4 of 4 - PCV20 or PCV21) 05/30/2021 05/30/2016, 09/16/2014, 09/16/2014 COVID-19 Vaccine (2023-2 5 season) 2023 10/13/2021, 12/12/2020, 04/29/2020, Additional history exists Influenza Vaccine Completed 12/07/2023, , 11/14/2019, Additional history exists Procedures Procedure Name Priority Date/Time Associated Diagnosis Comments LITHOLINK 24-HOUR URINE, [place] Routine 04/17/2024 7:30 AM CDT Nephrolithiasis from Last 3 Months Results * (ABNORMAL) Litholink 24-Hour Urine Panel (04/17/2024 7:30 AM CDT) CYSTINE, URINE, QUALITATIVE CANCELED [facility] 1 Comment: Test not performed. Previous test results on file. Result canceled by the ancillary. Volume, 24-Hour Urine 2,430 500 - 4,000 mL/24 hr [facility] 1 Calcium oxalate index, 24 hour Urine 5.51(L) 6.00 - 10.00 [facility] 1 Calcium, 24 hour Urine 224(H) <200 mg/24 hr [facility] 1 Comment:The urine Ca result was verified by repeat analysis. Oxalate, 24 hour Urine 66(H) 20 - 40 mg/24 hr [facility] 1 Citrate, 24 hour Urine 341(L) >550 mg/24 hr [facility] 1 Comment:The urine Cit result was verified by repeat analysis. CALCIUM PHOSPHATE SATURATION 0.21(L) 0.50 - 2.00 [facility] 1 pH of 24 hour Urine 5.362(L) 5.800 - 6.200 [facility] 1 Urate, 24 hour Urine 1.60(H) <1.00 [facility] 1 Uric Acid (Urate), 24 Hour Urine 726 <750 mg/24 hr [facility] 1 Sodium, 24 hour Urine 311(H) 50 - 150 mmol/24 hr [facility] 1 Potassium, 24 hour Urine 76 20 - 100 mmol/24 hr [facility] 1 Magnesium, 24 hour Urine 298(H) 30 - 120 mg/24 hr [facility] 1 Phosphate, 24 hour Urine 1,268(H) 600 - 1,200 mg/24 hr [facility] 1 AMMONIUM, URINE 85(H) 15 - 60 mmol/24 hr [facility] 1 Chloride, 24 hour Urine 380(H) 70 - 250 mmol/24 hr [facility] 1 Sulfate, 24 hour Urine 55 20 - 80 meq/24 hr [facility] 1 Urea nitrogen, 24 hour Urine (UUN) 19.53(H) 6.00 - 14.00 g/24 hr [facility] 1 PROTEIN CATABOLIC RATE 1.6(H) 0.8 - 1.4 g/kg/24 hr [facility] 1 Creatinine, 24 hour Urine 1,767 Not Applic. mg/24 hr [facility] 1 Comment: Note the excessive variation in creatinine excretion, suggesting a discrepancy in the collection process. The urine creatinine result was verified by repeat analysis. CREATININE / KG BODY WEIGHT 20.5(H) 8.7 - 20.3 mg/24 hr/kg [facility] 1 Calcium/Kg Body Weight 2.6 <4.0 mg/24 hr/kg [facility] 1 RATIO CALCIUM TO CREATININE UA 127 51 - 262 mg/g creat [facility] 1 COMMENT Note [facility] 1 PDF . [facility] 1 04/17/2024 7:30 AM CDT 04/22/2024 11:00 PM CDT Narrative [facility] - 04/24/2024 2:07 AM CDT Performed at: [address] [facility], [place] [id number] Prosthodontist: Dez Perez PhD, Phone: [phone] us Uche Vela MD LAB URINE ORDERABLES Edited Resu lt - Final [facility] 1 from Last 3 Months Insurance MEDICARE [facility] Care Teams Graduate Internship Relationship Specialty Start Date End Date Jona Bravo MD [address] [place] [address] PCP - General Internal Medicine 06/16/19
--- OUTSIDE RECORDS SUMMARY | 2024-07-08 15:57 | XMS_ITS | Encounter Summary ---
Author Organization [facility] Address [address] [place] [address] Phone Care Team Providers Care Excavation Laborer Name Role Phone Jona Bravo MD Primary Care Provider + Desire Sams RN Unavailable Un available Pooja [place] LCSW Unavailable [phone] Roscoe Mccollum MD Unavailable [phone] Encounter Details Date Type Department Care Team [...] on file Legal Sex Female 12:46 AM TOMBSTONE ERECTOR HELPER Gender Identity Female 04/08/2019 6:15 AM TOMBSTONE ERECTOR HELPER Sexual Orientation Straight 04/08/2019 6: 15 AM TOMBSTONE ERECTOR HELPER Occupation Industry Job Start Date Job End [...] on filedocumented in this encounter Care Teams Excavation Laborer Relationship Specialty Start Date End Date Jona Bravo MD PCP - General 05/05/16 Desire Sams, RN Registered Nurse 04/03/17 Pooja [place], [facility] [address] [employer] ([facility]) Mailop [phone] [place] [address] [facility] Outpatient Assembly Machine Offbearer 10/12/21 11/09/21 Roscoe Mccollum MD [address] [place] [address] Anesthesiologist Pain Management 12/21/21 documented as of this encounter
--- OUTSIDE RECORDS SUMMARY | 2024-07-08 15:57 | XMS_ITS | Encounter Summary ---
Author Organization [facility] Address [address] [place] [address] Phone Care Team Providers Care Burr Bench Hand Name Role Phone Jona Bravo MD Primary Care Provider + Desire Sams RN Unavailable Un available Pooja [place] LCSW Unavailable [phone] Roscoe Mccollum MD Unavailable [phone] Encounter Details Date Type Department Care Team [...] on file Legal Sex Female 12:46 AM MANAGER FINE Gender Identity Female 04/08/2019 6:15 AM MANAGER FINE Sexual Orientation Straight 04/08/2019 6: 15 AM MANAGER FINE Occupation Industry Job Start Date Job End [...] on filedocumented in this encounter Care Teams Burr Bench Hand Relationship Specialty Start Date End Date Jona Bravo MD PCP - General 05/05/16 Desire Sams, RN Registered Nurse 04/03/17 Pooja [place], [facility] [address] [facility] ([facility]) Mailstop [phone] [place] [address] [facility] Outpatient Head Batcher 10/12/21 11/09/21 Roscoe Mccollum MD [address] [place] [address] [address] Anesthesiologist Pain Management 12/21/21 documented as of this encounter
--- OUTSIDE RECORDS SUMMARY | 2024-07-08 15:57 | XMS_ITS | Data Portability ---
Author Organization [facility], Main Office Address [address] [place] [address] Assessment No assessment recorded. Plan of Treatment [...] Care in Diabe shahnaz(A DA). Not Available [place] [address] [place], [address], 09/14/2021 06:00:34 09/08/19 22 09/14/2021 VITAM IN [...] /MS is recom dani d: order code 09268 (salty ents >2yrs ). See Note 1 Note 1 For addit ional infor axel valderrama refer to http: //lisa Alston stDia gnost ics.c om/fa q/FAQ 199 (This link is being provi ded for infor laith pereyra/ [place] purpo ses only. ) Not Available [facility] [place] [address] [place], [address], 09/14/2021 06:00:33 09/08/19 22 09/14/2021 THYRO ID PANEL WITH TSH T3 uptake 32 % 22-35 normal Not Available [facility] [address] [address] [address] [place], [address], 09/14/2021 06:00:32 09/08/19 22 09/14/2021 THYRO ID PANEL WITH TSH T4 (thyroxine), total 7.4 mcg/d L 5.1-11 .9 normal Not Available [facility] [address] [address] [address] [place], [address], 09/14/2021 06:00:32 09/08/19 22 09/14/2021 THYRO ID PANEL WITH TSH free T4 index (T7) 2.4 1.4-3. 8 normal Not Available [facility] [place] [address] [place], [address], 09/14/2021 06:00:32 09/08/1909/14/2021 THYRO ID PANEL WITH TSH TSH 2.72 mIU/L 0.40-4 .50 normal Not Available [facility] [address], [address], 09/14/2021 06:00:32 09/08/19 22 09/14/2021 INSUL IN [...] (dete kim, gluli sine) . Not Available [facility] [address], [address], 09/14/2021 06:00:31 09/08/1909/14/2021 CORTI JUAN, TOTAL cortisol, total 4.4 mcg/d L normal Refer ence Range : For 8 a.m.( 7-9 a.m.) Speci men: 4.0-2 2.0 Refer ence Range : For 4 p.m.( 3-5 p.m.) Speci men: 3.0-1 7.0 * Pleas e inter pret above resul ts accor dingl y * Not Available [facility] [place] [address] [place], [address], 09/14/2021 06:00:30 09/08/1909/14/2021 THYRO ID PEROX IDASE AND THYRO GLOBU HERO ANTIB ODIES thyroglobuli n antibodies <1 IU/mL < or = 1 normal Not Available [address], [address], 09/14/2021 06:00:29 09/08/19 22 09/14/2021 THYRO ID PEROX IDASE AND THYRO GLOBU HERO ANTIB ODIES thyroid peroxidase antibodies 1 IU/mL <9 normal Not Available [address], [address], 09/14/2021 06:00:29 09/08/19 22 09/14/2021 ACTH, PLASM A acth, plasma <5 pg/mL 6-50 low Refer ence range appli es only to speci mens colle cted betwe en 7am-1 0am. Not Available [address], [address], 09/14/2021 06:00:28 09/08/19 22 09/14/2021 COMPR EHENS KRISTYN METAB OLIC PANEL glucose 81 mg/dL 65-99 normal Fasti ng refer ence inter kathy Not Available [address], [address], 09/14/2021 06:00:27 09/08/19 22 09/14/2021 COMPR EHENS KRISTYN METAB OLIC PANEL urea nitrogen (BUN) 23 mg/dL 7-25 normal Not Available [address], [address], 09/14/2021 06:00:27 09/08/19 22 09/14/2021 COMPR EHENS KRISTYN METAB OLIC PANEL creatinine 0.70 mg/dL 0.50-1 .05 normal Not Available [address], [address], 09/14/2021 06:00:27 09/08/19 22 09/14/2021 COMPR EHENS [...] kdoqi /gfr% 5Fcal culat or Not Available [address] [place], [address], 09/14/2021 06:00:27 09/08/19 22 09/14/2021 COMPR EHENS KRISTYN METAB OLIC PANEL BUN/creatini ne ratio not applic able (calc ) 6-22 Not Available [address], [address], 09/14/2021 06:00:27 09/08/19 22 09/14/2021 COMPR EHENS KRISTYN METAB OLIC PANEL sodium 141 mmol/ L 135-14 6 normal Not Available [address], [address], 09/14/2021 06:00:27 09/08/19 22 09/14/2021 COMPR EHENS KRISTYN METAB OLIC PANEL potassium 3.7 mmol/ L 3.5-5. 3 normal Not Available [address], [address], 09/14/2021 06:00:27 09/08/19 22 09/14/2021 COMPR EHENS KRISTYN METAB OLIC PANEL chloride 103 mmol/ L 98-110 normal Not Available [facility] [address], [address], 09/14/2021 06:00:27 09/08/19 22 09/14/2021 COMPR EHENS KRISTYN METAB OLIC PANEL carbon dioxide 33 mmol/ L 20-32 high Not Available [address], [address], 09/14/2021 06:00:27 09/08/19 22 09/14/2021 COMPR EHENS KRISTYN METAB OLIC PANEL calcium 9.2 mg/dL 8.6-10 .4 normal Not Available [address], [address], 09/14/2021 06:00:27 09/08/19 22 09/14/2021 COMPR EHENS KRISTYN METAB OLIC PANEL protein, total 6.0 g/dL 6.1-8. 1 low Not Available [address], [address], 09/14/2021 06:00:27 09/08/19 22 09/14/2021 COMPR EHENS KRISTYN METAB OLIC PANEL albumin 4.1 g/dL 3.6-5. 1 normal Not Available [address], [address], 09/14/2021 06:00:27 09/08/19 22 09/14/2021 COMPR EHENS KRISTYN METAB OLIC PANEL globulin 1.9 g/dL_ (calc ) 1.9-3. 7 normal Not Available [address], [address], 09/14/2021 06:00:27 09/08/19 22 09/14/2021 COMPR EHENS KRISTYN METAB OLIC PANEL albumin/glob ulin ratio 2.2 (calc ) 1.0-2. 5 normal Not Available [address], [address], 09/14/2021 06:00:27 09/08/19 22 09/14/2021 COMPR EHENS KRISTYN METAB OLIC PANEL bilirubin, total 0.6 mg/dL 0.2-1. 2 normal Not Available [address], [address], 09/14/2021 06:00:27 09/08/19 22 09/14/2021 COMPR EHENS KRISTYN METAB OLIC PANEL alkaline phosphatase 87 U/L 37-153 normal Not Available [facility] [address], [address], 09/14/2021 06:00:27 09/08/19 22 09/14/2021 COMPR EHENS KRISTYN METAB OLIC PANEL AST 34 U/L 10-35 normal Not Available [facility] [address], [address], 09/14/2021 06:00:27 09/08/19 22 09/14/2021 COMPR EHENS KRISTYN METAB OLIC PANEL ALT 41 U/L 6-29 high Not Available [address], [address], 09/14/2021 06:00:27 09/08/19 22 09/14/2021 PHOSP HATE ( PHOSP HORUS ) phosphate ( phosphorus) 4.1 mg/dL 2.5-4. 5 normal Not Available [address], [address], 09/14/2021 06:00:26 09/08/1909/14/2021 PTH, INTAC T AND [...] or Low Amanda l High Not Available [facility] [address], [address], 09/14/2021 06:00:24 09/08/1909/14/2021 PTH, INTAC T AND CALCI UM calcium 9.2 mg/dL 8.6-10 .4 normal Not Available [address], [address], 09/14/2021 06:00:24 09/09/19 22 09/16/2021 PANCR EATIC [...] subst ituti on thera py. Not Available [address], [address], 09/17/2021 17:37:45 09/09/19 22 09/16/2021 FECAL FAT, QUALI TATIV E fecal fat, qualitative abnorm al normal abnormal Not Available [address], [address], 09/17/2021 17:37:45 09/09/19 22 09/16/2021 CALCI UM, 24 HOUR URINE (W/ CREAT ININE ) calcium/crea tinine ratio 90 mg/g_ creat 30-275 normal Not Available [address], [address], 09/17/2021 17:37:44 09/09/19 22 09/16/2021 CALCI UM, 24 HOUR URINE (W/ CREAT ININE ) calcium, 24 hour urine 123 mg/24 _h normal Refer ence Range 35-25 0 Low calci um diet 35-20 0 Not Available [address], [address], 09/17/2021 17:37:44 09/09/19 22 09/16/2021 CALCI UM, 24 HOUR URINE (W/ CREAT ININE ) creatinine, 24 hour urine 1.38 g/24_ h 0.50-2 .15 normal Not Available [facility] [address] [place], [address], 09/17/2021 17:37:44 10/08/19 22 10/08/2021 ACTH, PLASM A acth, plasma 21.9 pg/mL 7.2-63 .3 ACTH refer ence inter kathy for sampl es colle cted betwe en 7 and 10 AM. Perfo rmed at: [facility] [address], [place] [address] Lab Direc tor: Dev morel PhD, Phone : [phone] Not Available [facility] (Lab) [address] [place], [address], 10/08/2021 16:09:46 10/08/19 22 10/07/2021 CORTI JUAN, TOTAL , A.M. beverly AM 11.3 ug/dL 4.5-22 .7 Not Available [facility] (Lab) [address] [place], [address], 10/07/2021 13:57:03 12/17/19 22 12/18/2021 CALCI UM, IONIZ ED calcium, ionized 5.1 mg/dL 4.8-5. 6 normal Not Available [facility] [address] [place], [place] [address] [place], [address], 12/18/2021 06:34:00 12/17/19 22 12/18/2021 TSH+F REE T4 TSH 0.95 mIU/L 0.40-4 .50 normal Not Available [facility] [address] [place], [address], 12/18/2021 06:34:00 12/17/19 22 12/18/2021 TSH+F REE T4 T4, free 1.0 NG/dL 0.8-1. 8 normal Not Available [facility] [address] [address] [address] [place], [address], 12/18/2021 06:34:00 12/17/19 22 12/18/2021 VITAM IN [...] /MS is recom dani d: order code 60936 (salty ents >2yrs ). See Note 1 Note 1 For addit ional infor axel valderrama e refer to http: //[facility] gui Alston stDia gnost ics.c om/fa q/FAQ 199 (This link is being provi ded for infor laith pereyra/ [place] purpo ses only. ) Not Available [facility] [address] [address] [place], [address], 12/18/2021 06:34:00 12/17/19 22 12/18/2021 T3, FREE T3, free 3.1 pg/mL 2.3-4. 2 normal Not Available [facility] [address] [place], [address], 12/18/2021 06:33:59 12/17/19 22 12/18/2021 COMPR EHENS KRISTYN METAB OLIC PANEL glucose 100 mg/dL 65-99 high Fasti ng refer ence inter kathy For someo ne witho ut known diabe shahnaz, a gluco se value betwe en 100 and 125 mg/dL is consi stent with predi abete s and shoul d be confi rmed with a follo w-up test. Not Available [place] [address] [place], [address], 12/18/2021 06:33:59 12/17/19 22 12/18/2021 COMPR EHENS KRISTYN METAB OLIC PANEL urea nitrogen (BUN) 20 mg/dL 7-25 normal Not Available [address] [place] [address] [place], [address], 12/18/2021 06:33:59 12/17/19 22 12/18/2021 COMPR EHENS KRISTYN METAB OLIC PANEL creatinine 0.73 mg/dL 0.50-1 .05 normal Not Available [address] [place] [address] [place], [address], 12/18/2021 06:33:59 12/17/19 22 12/18/2021 COMPR EHENS [...] kdoqi /gfr% 5Fcal culat or Not Available [address] [address] [place], [address], 12/18/2021 06:33:59 12/17/19 22 12/18/2021 COMPR EHENS KRISTYN METAB OLIC PANEL BUN/creatini ne ratio not applic able (calc ) 6-22 Not Available [address], [address], 12/18/2021 06:33:59 12/17/19 22 12/18/2021 COMPR EHENS KRISTYN METAB OLIC PANEL sodium 143 mmol/ L 135-14 6 normal Not Available [address], [address], 12/18/2021 06:33:59 12/17/19 22 12/18/2021 COMPR EHENS KRISTYN METAB OLIC PANEL potassium 4.4 mmol/ L 3.5-5. 3 normal Not Available [address], [address], 12/18/2021 06:33:59 12/17/19 22 12/18/2021 COMPR EHENS KRISTYN METAB OLIC PANEL chloride 104 mmol/ L 98-110 normal Not Available [address], [address], 12/18/2021 06:33:59 12/17/19 22 12/18/2021 COMPR EHENS KRISTYN METAB OLIC PANEL carbon dioxide 34 mmol/ L 20-32 high Not Available [address], [address], 12/18/2021 06:33:59 12/17/19 22 12/18/2021 COMPR EHENS KRISTYN METAB OLIC PANEL calcium 9.4 mg/dL 8.6-10 .4 normal Not Available [address], [address], 12/18/2021 06:33:59 12/17/19 22 12/18/2021 COMPR EHENS KRISTYN METAB OLIC PANEL protein, total 6.1 g/dL 6.1-8. 1 normal Not Available [address], [address], 12/18/2021 06:33:59 12/17/19 22 12/18/2021 COMPR EHENS KRISTYN METAB OLIC PANEL albumin 4.2 g/dL 3.6-5. 1 normal Not Available [address], [address], 12/18/2021 06:33:59 12/17/19 22 12/18/2021 COMPR EHENS KRISTYN METAB OLIC PANEL globulin 1.9 g/dL_ (calc ) 1.9-3. 7 normal Not Available [address], [address], 12/18/2021 06:33:59 12/17/19 22 12/18/2021 COMPR EHENS KRISTYN METAB OLIC PANEL albumin/glob ulin ratio 2.2 (calc ) 1.0-2. 5 normal Not Available [address], [address], 12/18/2021 06:33:59 12/17/19 22 12/18/2021 COMPR EHENS KRISTYN METAB OLIC PANEL bilirubin, total 1.0 mg/dL 0.2-1. 2 normal Not Available [address], [address], 12/18/2021 06:33:59 12/17/19 22 12/18/2021 COMPR EHENS KRISTYN METAB OLIC PANEL alkaline phosphatase 84 U/L 37-153 normal Not Available [address], [address], 12/18/2021 06:33:59 12/17/19 22 12/18/2021 COMPR EHENS KRISTYN METAB OLIC PANEL AST 32 U/L 10-35 normal Not Available [address], [address], 12/18/2021 06:33:59 12/17/19 22 12/18/2021 COMPR EHENS KRISTYN METAB OLIC PANEL ALT 37 U/L 6-29 high Not Available [address], [address], 12/18/2021 06:33:59 12/17/19 22 12/18/2021 PHOSP HATE ( PHOSP HORUS ) phosphate ( phosphorus) 4.0 mg/dL 2.5-4. 5 normal Not Available [facility] [address], [address], 12/18/2021 06:33:58 12/17/1912/18/2021 PTH, INTAC T AND [...] or Low Amanda l High Not Available [facility] [address], [address], 12/18/2021 06:33:58 12/17/1912/18/2021 PTH, INTAC T AND CALCI UM calcium 9.4 mg/dL 8.6-10 .4 normal Not Available [facility] [address], [address], 12/18/2021 06:33:58 03/03/19 23 03/17/2022 TSH+F REE T4 TSH 1.96 mIU/L 0.40-4 .50 normal Not Available [facility] [address], [address], 03/17/2022 21:44:15 03/03/19 23 03/17/2022 TSH+F REE T4 T4, free 1.0 NG/dL 0.8-1. 8 normal Not Available [facility] [address], [address], 03/17/2022 21:44:15 03/03/19 23 03/17/2022 T3, FREE T3, free 3.5 pg/mL 2.3-4. 2 normal Not Available [facility] [address] , [place], [address], 03/17/2022 21:44:14 03/03/1903/17/2022 THYRO ID PEROX IDASE ANTIB ODIES thyroid peroxidase antibodies 2 IU/mL <9 normal Not Available [facility] [address] [address], [place], [address], 03/17/2022 21:44:14 03/03/19 23 03/17/2022 CHROM OGRAN [...] not be inter prete d as absol akhiok evide nce of the prese nce or absen ce of disea se. This test was devel oped and its madison tical perfo rmanc e gus cteri stics have been deter mined by [facility] [place] [facility] tr[facility] . It has not been clear ed or appro otilia by FDA. This assay has been valid ated pursu ant to the CLIA regul ation s and is used for clini fortunato purpo ses. Not Available [facility] [place] [address] [place], [address], 03/17/2022 21:44:13 03/03/19 23 03/17/2022 VASOA CTIVE [...] not be inter prete d as absol akhiok evide nce of the prese nce or [...] for clini fortunato purpo ses. Not Available [facility] [place] [address] [place], [address], 03/17/2022 21:44:13 03/03/19 23 03/17/2022 GLUCA SOUMYA glucagon 15 pg/mL 11-78 This test was perfo rmed using the Gluca soumya CATHY metho d stand ardiz ed again st the Inter natio nal refer ence prepa ratio n 69/19 4 and has a new refer ence range . Not Available [facility] [place] [address] [place], [address], 03/17/2022 21:44:12 03/03/19 23 03/17/2022 COMPR EHENS KRISTYN METAB OLIC PANEL glucose 89 mg/dL 65-99 normal Fasti ng refer ence inter kathy Not Available [facility] [place] [address] [place], [address], 03/17/2022 21:44:11 03/03/19 23 03/17/2022 COMPR EHENS KRISTYN METAB OLIC PANEL urea nitrogen (BUN) 22 mg/dL 7-25 normal Not Available [address], [address], 03/17/2022 21:44:11 03/03/19 23 03/17/2022 COMPR EHENS KRISTYN METAB OLIC PANEL creatinine 0.66 mg/dL 0.50-1 .05 normal Not Available [address], [address], 03/17/2022 21:44:11 03/03/19 23 03/17/2022 COMPR EHENS [...] kdoqi /gfr% 5Fcal culat or Not Available [address], [address], 03/17/2022 21:44:11 03/03/19 23 03/17/2022 COMPR EHENS KRISTYN METAB OLIC PANEL BUN/creatini ne ratio not applic able (calc ) 6-22 Not Available [address], [address], 03/17/2022 21:44:11 03/03/19 23 03/17/2022 COMPR EHENS KRISTYN METAB OLIC PANEL sodium 143 mmol/ L 135-14 6 normal Not Available [address], [address], 03/17/2022 21:44:11 03/03/19 23 03/17/2022 COMPR EHENS KRISTYN METAB OLIC PANEL potassium 4.1 mmol/ L 3.5-5. 3 normal Not Available [address], [address], 03/17/2022 21:44:11 03/03/19 23 03/17/2022 COMPR EHENS KRISTYN METAB OLIC PANEL chloride 107 mmol/ L 98-110 normal Not Available [address], [address], 03/17/2022 21:44:11 03/03/19 23 03/17/2022 COMPR EHENS KRISTYN METAB OLIC PANEL carbon dioxide 33 mmol/ L 20-32 high Not Available [address], [address], 03/17/2022 21:44:11 03/03/19 23 03/17/2022 COMPR EHENS KRISTYN METAB OLIC PANEL calcium 9.5 mg/dL 8.6-10 .4 normal Not Available [address], [address], 03/17/2022 21:44:11 03/03/19 23 03/17/2022 COMPR EHENS KRISTYN METAB OLIC PANEL protein, total 5.8 g/dL 6.1-8. 1 low Not Available [address], [address], 03/17/2022 21:44:11 03/03/19 23 03/17/2022 COMPR EHENS KRISTYN METAB OLIC PANEL albumin 4.0 g/dL 3.6-5. 1 normal Not Available [address], [address], 03/17/2022 21:44:11 03/03/19 23 03/17/2022 COMPR EHENS KRISTYN METAB OLIC PANEL globulin 1.8 g/dL_ (calc ) 1.9-3. 7 low Not Available [address], [address], 03/17/2022 21:44:11 03/03/19 23 03/17/2022 COMPR EHENS KRISTYN METAB OLIC PANEL albumin/glob ulin ratio 2.2 (calc ) 1.0-2. 5 normal Not Available [address], [address], 03/17/2022 21:44:11 03/03/19 23 03/17/2022 COMPR EHENS KRISTYN METAB OLIC PANEL bilirubin, total 0.6 mg/dL 0.2-1. 2 normal Not Available [address], [address], 03/17/2022 21:44:11 03/03/19 23 03/17/2022 COMPR EHENS KRISTYN METAB OLIC PANEL alkaline phosphatase 89 U/L 37-153 normal Not Available [address], [address], 03/17/2022 21:44:11 03/03/19 23 03/17/2022 COMPR EHENS KRISTYN METAB OLIC PANEL AST 28 U/L 10-35 normal Not Available [address], [address], 03/17/2022 21:44:11 03/03/19 23 03/17/2022 COMPR EHENS KRISTYN METAB OLIC PANEL ALT 31 U/L 6-29 high Not Available [address], [address], 03/17/2022 21:44:11 03/13/19 23 03/31/2022 5 HIAA, 24 HOUR URINE , W/O CREAT ININE total volume 2500 mL Not Available [address], [address], 03/31/2022 16:00:55 03/13/19 23 03/31/2022 5 HIAA, [...] for clini fortunato purpo ses. Not Available [facility] [place] [address] [place], [address], 03/31/2022 16:00:55 06/06/19 23 06/07/2022 COMPR EHENS KRISTYN METAB OLIC PANEL glucose 89 mg/dL 65-99 normal Fasti ng refer ence inter akthy Not Available [facility] [place] [address] [place], [address], 06/07/2022 16:08:33 06/06/19 23 06/07/2022 COMPR EHENS KRISTYN METAB OLIC PANEL urea nitrogen (BUN) 20 mg/dL 7-25 normal Not Available [facility] [address], [address], 06/07/2022 16:08:33 06/06/19 23 06/07/2022 COMPR EHENS KRISTYN METAB OLIC PANEL creatinine 0.78 mg/dL 0.50-1 .05 normal Not Available [facility] [address], [address], 06/07/2022 16:08:33 06/06/19 23 06/07/2022 COMPR EHENS [...] kdoqi /gfr% 5Fcal culat or Not Available [address], [address], 06/07/2022 16:08:33 06/06/19 23 06/07/2022 COMPR EHENS KRISTYN METAB OLIC PANEL BUN/creatini ne ratio NOT APPLIC ABLE (calc ) 6-22 Not Available [address], [address], 06/07/2022 16:08:33 06/06/19 23 06/07/2022 COMPR EHENS KRISTYN METAB OLIC PANEL sodium 141 mmol/ L 135-14 6 normal Not Available [address], [address], 06/07/2022 16:08:33 06/06/19 23 06/07/2022 COMPR EHENS KRISTYN METAB OLIC PANEL potassium 3.7 mmol/ L 3.5-5. 3 normal Not Available [address], [address], 06/07/2022 16:08:33 06/06/19 23 06/07/2022 COMPR EHENS KRISTYN METAB OLIC PANEL chloride 102 mmol/ L 98-110 normal Not Available [address], [address], 06/07/2022 16:08:33 06/06/19 23 06/07/2022 COMPR EHENS KRISTYN METAB OLIC PANEL carbon dioxide 33 mmol/ L 20-32 high Not Available [address], [address], 06/07/2022 16:08:33 06/06/19 23 06/07/2022 COMPR EHENS KRISTYN METAB OLIC PANEL calcium 9.2 mg/dL 8.6-10 .4 normal Not Available [address], [address], 06/07/2022 16:08:33 06/06/19 23 06/07/2022 COMPR EHENS KRISTYN METAB OLIC PANEL protein, total 6.1 g/dL 6.1-8. 1 normal Not Available [address], [address], 06/07/2022 16:08:33 06/06/19 23 06/07/2022 COMPR EHENS KRISTYN METAB OLIC PANEL albumin 4.1 g/dL 3.6-5. 1 normal Not Available [address], [address], 06/07/2022 16:08:33 06/06/19 23 06/07/2022 COMPR EHENS KRISTYN METAB OLIC PANEL globulin 2.0 g/dL_ (calc ) 1.9-3. 7 normal Not Available [address], [address], 06/07/2022 16:08:33 06/06/19 23 06/07/2022 COMPR EHENS KRISTYN METAB OLIC PANEL albumin/glob ulin ratio 2.1 (calc ) 1.0-2. 5 normal Not Available [address], [address], 06/07/2022 16:08:33 06/06/19 23 06/07/2022 COMPR EHENS KRISTYN METAB OLIC PANEL bilirubin, total 0.8 mg/dL 0.2-1. 2 normal Not Available [address], [address], 06/07/2022 16:08:33 06/06/19 23 06/07/2022 COMPR EHENS KRISTYN METAB OLIC PANEL alkaline phosphatase 77 U/L 37-153 normal Not Available [facility] [address], [address], 06/07/2022 16:08:33 06/06/19 23 06/07/2022 COMPR EHENS KRISTYN METAB OLIC PANEL AST 23 U/L 10-35 normal Not Available [facility] [address], [address], 06/07/2022 16:08:33 06/06/19 23 06/07/2022 COMPR EHENS KRISTYN METAB OLIC PANEL ALT 27 U/L 6-29 normal Not Available [facility] [address], [address], 06/07/2022 16:08:33 06/06/19 23 06/07/2022 THYRO ID PEROX IDASE ANTIB ODIES thyroid peroxidase antibodies 1 IU/mL <9 normal Not Available [facility] [address], [address], 06/07/2022 16:08:34 06/06/1906/07/2022 INSUL IN insulin 9.7 uIU/m L normal Refer ence Range < or = 18.4 Risk: Optim al < or = 18.4 Moder ate NA High >18.4 Adult cardi ovasc ular event risk categ ory cut point s (opti mal, moder ate, high) are based on Insul in Refer ence Inter kathy studi es perfo rmed at [facility] in 2021. Not Available [facility] [address], [address], 06/07/2022 16:08:35 06/06/19 23 06/07/2022 T3, FREE T3, free 3.0 pg/mL 2.3-4. 2 normal Not Available [facility] [address], [address], 06/07/2022 16:08:36 06/06/19 23 06/07/2022 TSH+F REE T4 TSH 1.18 mIU/L 0.40-4 .50 normal Not Available [facility] [address], [address], 06/07/2022 16:08:36 06/06/19 23 06/07/2022 TSH+F REE T4 T4, free 1.1 NG/dL 0.8-1. 8 normal Not Available [facility] [address] [place], [address], 06/07/2022 16:08:36 06/06/19 23 06/07/2022 HEMOG LOBIN [...] Care in Diabe shahnaz(A DA). Not Available [employer] [facility] [address], [place], [address], 06/07/2022 16:08:37 09/09/19 22 09/08/2021 US, thyro id No observ ation record ed. [id number] [facility] [address] [place], [address], 04/06/2022 01:35:44 09/09/19 22 09/08/2021 bone densi ty No observ ation record ed. [id number] [facility] [address] [place], [address], 04/06/2022 01:35:44 09/09/19 22 DEX[facility] [address] [place] [address] [phone] Consuelo angelo Name: PETE LLANOS Renato A Access ion #: [id number] Sex: F : 1959 6 7 [...] e of 0.1. Page [address] [facility] Consuelo angelo Name: PETE LLANOS Renato A Access ion #: [id number] Sex: F : 1959 6 7 [...] MD (CT) (CT) Page 2 of 2 [id number] [facility] ([facility] [address] [place], [address], 04/06/2022 01:35:44 09/09/19 US, head + neck, soft tissu e [facility] [address] [place] [address] Consuelo angelo Name: PETE LLANOS A Access ion #: [id number] Sex: F : 1959 6 7 [...] r blood flow. Page 1 of [address] [facility] [address] [facility] t Name: PETE LLANOS A Access ion #: [id number] Sex: F : 1959 5 [birth year] [...] MD (CT) (CT) Page 2 of 2 [id number] [facility] ([facility] [address] [place], [address], 04/06/2022 01:35:44 03/31/19 23 03/31/2022 PET-C T, whole body scan No observ ation record ed. [id number] [facility] [address] [place], [address], 04/06/2022 01:35:44 Result Notes None recorded. Problems Name Problem SNOMED Code Status Onset Date Resolution Date Notes Provider Name and Address Organization Details Recorded Time Hypoglycemia 328633620 Active 2021 Not Available [facility] 3 01:34:43 Abnormal cortisol 522775261 Active 2021 Not Available [facility] 3 01:34:43 Hypothyroidis m 32098626 Active 2021 Not Available [facility] 3 01:34:43 Hyperparathyr oidism 93516195 Active 2021 Not Available [facility] 3 01:34:43 Reactive hypoglycemia 158776 Active 2022 Mindi Stevens RMPollo null, [facility] 3 10:41:38 Postmenopausa l osteoporosis 133339809 Active 2022 Kayla Alvarado RMA null, [place] [facility] [place] [facility] 3 12:05:10 Problem Notes None recorded. Procedures Surgical History Date Name Laterality Status Provider Name and Address Organization Details Recorded Time repair of urinary bladder completed Not Available [facility] 04/06/2022 01:34:04 Neck completed Not Available [facility] 04/06/2022 01:34:04 dinitrochlorobenzene contact sensitivity test completed Not Available [facility] 04/06/2022 01:34:04 Kidney Stones completed Not Available [facility] 04/06/2022 01:34:04 Hysterectomy completed Not Available [facility] 04/06/2022 01:34:04 Gastric bypass for obesity completed Not Available [facility] 04/06/2022 01:34:04 Carpal tunnel surgery completed Not Available [facility] 04/06/2022 01:34:04 Imaging Results None recorded. Procedure Notes None recorded. Medical Equipment None Reported. Allergies Allergen ID Allergen Name Allergen Category Reaction Reaction Severity Criticality Documentation Date Start Date Code Code System Note Provider Name and Address Organization Details Recorded Time 09963 Levaquin medicatio n Not available Not available Not available 04/06/2022 28907 2 RxNorm Not Available [facility] 3 01:35:37 81805 Demerol medicatio n Not available Not available Not available 04/06/2022 05680 1 RxNorm Not Available [facility] 3 01:35:37 76526 codeine medicatio n Not available Not available Not available 04/06/2022 2670 RxNorm Not Available [facility] 3 01:35:37 Medications Name Sig Start Date [...] 2022 active Not Available Not Available Not Avai lable Creon 36,000 unit-114,00 0 unit-180,00 0 unit [...] 2022 active Not Available Not Available Not Avai lable Glucagon (HCl) Emergency Kit 1 mg solution [...] Not Available Not Available Not Avai lable Flowflex COVID-19 Antigen Home Test kit use [...] % 69 /min 12 /min 97.5 [degF] 04164.8 6 g 132 mm[Hg] 78 mm[Hg] Not Available [facility] 3 01:34:09 Date Recorded Body height Body mass index (BMI) Body weight Body temperature Heart rate Systolic blood pressure Diastolic blood pressure Provider Name and Address Organization Details Last Updated DateTime 3 160.02 cm 34 kg/m2 63572.7 4 g 97.6 [degF] 68 /min 149 mm[Hg] 67 mm[Hg] Sujatha Hughes CMA [place] [facility] 3 12:00:46 Date Recorded Body mass index (BMI) Body height Oxygen saturation Oxygen saturation in Arterial blood by Pulse oximetry Heart rate Body temperature Body weight Systolic blood pressure Diastolic blood pressure Provider Name and Address Organization Details Last Updated DateTime 2 32.9 kg/m2 160.02 cm 98 % 98 % 66 /min 97.7 [degF] 01346.4 6 g 120 mm[Hg] 75 mm[Hg] Not Available [facility] 3 01:34:09 Date Recorded Body mass index (BMI) Body height Oxygen saturation Oxygen saturation in Arterial blood by Pulse oximetry Heart rate Body temperature Body weight Systolic blood pressure Diastolic blood pressure Provider Name and Address Organization Details Last Updated DateTime 2 32.8 kg/m2 160.02 cm 99 % 99 % 65 /min 97.8 [degF] 14002.5 9 g 105 mm[Hg] 70 mm[Hg] Not Available [facility] 3 01:34:09 Social History Question Answer Notes LastModified by Organizat [employer] Details LastModified Time Tobacco Smoking Status Never Smoker Not Available [facility] 04/06/2022 01:33:24 What Is Your Level Of Caffeine Consumption? None [id number] Information not available 04/06/2022 What Type Of Diet Are You Following? REGULAR [id number] Information not available 04/06/2022 What Is Your Relationship Status? [id number] Information not available 04/06/2022 Sex: Female Functional Status Question Answer Note LastModified by Organizat ion Details LastModified Time What is your level of alcohol consumption? None [id number] Information not available 04/06/2022 What is your exercise level? Occasional [id number] Information not available 04/06/2022 Mental Status None recorded. Family History Relationship Description Onset Age of this Age Resolved Age Notes LastModified by Organization Details LastModified Time Sister Diabetes mellitus [id number] Not available 04/06/2022 01:34:05 Medical History Condition Response ARTHRITIS HEADACHES/MIGRAINES Y DIZZINESS Y KIDNEY DISEASE LIVER DISEASE LUNG DISEASE/DISORDER Y HYPERTENSION Y HIGH CHOLESTEROL / HYPERLIPIDEMIA Y EYE PROBLEMS Y GERD/NAUSEA Y SURGERY EXCESSIVE PERSPIRATION Y ALZHEIMER'S DISEASE Y HAVE YOU BEEN HOSPITALIZED OR SEEN IN [facility] IN THE PAST YEAR ? Y STROKE/TIA Y Gynecological HistoryNo gynecological history recorded. Obstetrics History GPAL:G 0 P 0 0 0 0 Past Encounters Encounter ID Performer Location Encounter Start Date Encounter Closed Date Diagnosis/Indication Diagnosis SNOMED-CT Code Diagnosis ICD10 Code Diagnosis Note [id number] Keesha Aragon MD [facility] [place] [address] [place] [address] 09/02/2021 00:00:00 09/02/2021 12:15:50 [id number] [facility] [place] [address] [place] [address] 10/14/2021 00:00:00 10/14/2021 21:36:04 [id number] Keesha Aragon MD [facility] [place] [address] [place] [address] 02/27/2022 00:00:00 02/27/2022 12:47:24 [id number] Keesha Aragon MD [facility] [place] [address] [place] [address] 07/31/2022 11:14:26 07/31/2022 12:37:01 Reactive hypoglycemia 055706 E16.1 Patient now taking acarbose per [facility] endocrinol ogy and her hypoglycem ia [...] of thyroid and osteoporos is or with [facility] endocrinol ogy as they have direct [...] Concerns Section Related Observation LastModified by Organization Aishwarya ozuna LastModified Time None Recorded Concern Status LastModified by Organization Details LastModified Time None Recorded Advance Directives Directive None Recorded Payers Encounter Date Sequence Insurance Name Policy Number Policy Heller Covered Member ID Heller Member ID Guarantor Name 07/31/2022 1 [place] Tiffanie Ruiz [id number] Tiffanie Ruiz 07/31/2022 2 [place] [id number] Tk Ruiz [id number] Tiffanie Ruiz Notes Date Note Type [...] and VIP/glucagon in range. We referred to [facility] for further insight. she is taking [...] mg/dLCr normalLFT normal Keesha Aragon MD [address] [facility], [facility] [address], [place], [address], [place] [facility] 07/31/2022 15:32:40 OBGyn Episode No OBEpisode recorded.
--- OUTSIDE RECORDS SUMMARY | 2024-07-08 15:57 | XMS_ITS | Encounter Summary ---
Author Organization [facility] Address [address] [place] [address] Care Team Providers Care Filing Writer Name Role Phone Jona Bravo MD Primary Care Provider [phone] Reason for Visit * Reason Comments Clinical Consult Before Scheduling Encounter Details Date Type Department Care Team (Late st Contact Info) Description 02/11/[address] [facility] Primary Care [address] [place] [address] Jona Bravo MD [address] [facility] [address] [place] [address] Clinical Consult Before Scheduling Social [...] often do you attend chur ch or spiritism services? 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 Topic: Symptomatic Care >> Feb 11, 2024 4:22 PM Connie Ardon wrote: Caller has new symptoms and is seeking care. Age Range/Symptom: Adult: 18+ - Cold, Flu, COVID, Sinus, Hay Fever, Allergies, Cough, Fever Does patient have any of the following other urgent symptoms: No urgent symptoms requiring warm call transfer Caller Name: Tiffanie Ruiz Callback Number: [phone] Call Notes: She has been sick since 01/31/2024. She went to the Urgent care ([facility]), yesterday. Where they prescribed steroids, and gave x-ray. She Is still suffering from cough, raspy throat, chest aches, and head congestion. Emergency inhaler not working well Refer to - [facility] (02/11/2024) She is scheduled with [facility] on 02/14/2024 Unable to schedule appointment within patient's desired timeframe. Patient declined all other options for immediate care, preferring to schedule first available. Scheduled appointment for 02/14/24 at3pm . If this is not clinically appropriate, please contact patient. 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 [address] [facility] [address] [place] [address] [place] [address] [facility] [address] [place] [address] 08/25/2024 10:40 AM CDT Office Visit [facility] Primary Care [facility] [address] [facility] [address] [place] [phone] Jona Bravo MD [address] [facility] [address] [place] [phone] documented as of this encounter Visit Diagnoses Not on filedocumented in this encounter Care Teams Filing Writer Relationship Specialty Start Date End Date Jona Bravo MD PCP - General Internal Medicine 11/25/15 documented as of this encounter
--- OUTSIDE RECORDS SUMMARY | 2024-07-08 15:58 | XMS_ITS | Patient Health Record ---
Author Organization [employer] [facility] Address [address] [address] Care Team Providers Care Vp Of Digital Marketing Name Role Phone Kathi Aragon Primary Care [...] Range Notes COMPREHENSIVE METABOLIC PANE L Reviewed date:09/04/2023 08:01:57 PM Interpretation: Performing Lab:[facility], [address] [place], [address] Law Nathan MD Notes/Report: FASTING:YES PATIENT REFUSED SOME TESTING; PATIENT ENCOURAGED TO RETURN. FASTING: YES ACTH, PLASMA Reviewed date:09/09/2023 07:11:40 PM Interpretation: Performing Lab:[facility] Replaced by [facility], [address] , [place], [address] Donnie Coelho M.D.,PhD Notes/Report: FASTING:YES PATIENT REFUSED SOME TESTING; PATIENT ENCOURAGED TO RETURN. FASTING: YES T3, FREE Reviewed date:09/04/2023 08:03:42 PM Interpretation: Performing Lab:[facility], [address] [place], [address] Law Nathan MD Notes/Report: FASTING:YES PATIENT REFUSED SOME TESTING; PATIENT ENCOURAGED TO RETURN. FASTING: YES HEMOGLOBIN A1c Reviewed date:09/09/2023 07:11:18 PM Interpretation: Performing Lab:[facility], [address], [place], [address] LynnetteJuani Nathan Notes/Report: FASTING:YES PATIENT REFUSED SOME TESTING; PATIENT ENCOURAGED TO RETURN. FASTING: YES CBC (INCLUDES DIFF/PLT) Reviewed date:09/04/2023 08:02:20 PM Interpretation: Performing Lab:[facility], [address], [place], [address] Law Nathan MD Notes/Report: FASTING:YES PATIENT REFUSED SOME TESTING; PATIENT ENCOURAGED TO RETURN. FASTING: YES IRON AND TOTAL IRON BINDING CAPACITY Reviewed date:09/04/2023 08:03:16 PM Interpretation: Performing Lab:[facility], [address], [place], [address] Law Nathan MD Notes/Report: FASTING:YES PATIENT REFUSED SOME TESTING; PATIENT ENCOURAGED TO RETURN. FASTING: YES LIPID PANEL Reviewed date:09/04/2023 08:01:39 PM Interpretation: Performing Lab:[facility], [address], [place], [address] Law Nathan MD Notes/Report: FASTING:YES PATIENT REFUSED SOME TESTING; PATIENT ENCOURAGED TO RETURN. FASTING: YES T4, FREE Reviewed date:09/04/2023 08:03:25 PM Interpretation: Performing Lab:[facility], [address], [place], [address] Law Nathan MD Notes/Report: FASTING:YES PATIENT REFUSED SOME TESTING; PATIENT ENCOURAGED TO RETURN. FASTING: YES TSH Reviewed date:09/04/2023 08:03:33 PM Interpretation: Performing Lab:[facility], [address] [place], [address] Law Nathan MD Notes/Report: FASTING:YES PATIENT REFUSED [...] review and pick correct strength-formula tion from Loop [employer]ley options. If intended option is not shown, discontinue and re-order from Quick Search* 06/15/2023 Not-Taking Denosumab 60 MG/ML INJECT 60 MG SUBCUTANEOUSLY EVERY 6 MONTHS for 1 DAYS *Please review and pick correct strength-formula tion from [employer] options. If intended option is not shown, [...] review and pick correct strength-formula tion from Loop [employer]rolley options. If intended option is not shown, [...] review and pick correct strength-formula tion from [employer] options. If intended option is not shown, discontinue and re-order from Quick Search* Not-Taking HYDROcodone Bitartrate ER 10 MG 1 cap(s) orally every 12 hours 1 TABLET EVERY 6 HOURS FOR PAIN Active Estradiol 1 MG/1 G (0.1%) 1 EA TRANSDERMALLY ONCE A DAY *Please review and pick correct strength-formula tion from [employer] options. If intended option is not shown, discontinue and re-order from Quick Search* Active Problems Problem Type SNOMED Code ICD Code Onset Dates Problem Status W/U Status Risk Notes Problem Hyperglycemia due to type 2 diabetes mellitus (395507596514552) Type 2 diabetes mellitus with hyperglycemia (E11.65) Active confirmed Problem Hyperlipidemia (18334801) Hyperlipidemia, unspecified (E78.5) Active confirmed Problem Type II diabetes mellitus without complication (978216171) Type 2 diabetes mellitus without complications (E11.9) Active confirmed Problem Hypothyroidism (11637342) Hypothyroidism, unspecified (E03.9) Active confirmed Problem Obesity (764291632) Obesity, unspecified (E66.9) Active confirmed Problem Post-herpetic trigeminal neuralgia (75030923) Postherpetic trigeminal neuralgia (B02.22) Active confirmed Problem Postherpetic neuralgia (1050719) Other postherpetic nervous system involvement (B02.29) Active confirmed Problem Hypoglycemia due to type 2 diabetes mellitus (888701706802827) Type 2 diabetes mellitus with hypoglycemia without coma (E11.649) Active confirmed Problem Hypoglycemia (174221846) Hypoglycemia, unspecified (E16.2) Active confirmed Problem Insomnia (600357736) Insomnia due to medical condition (G47.01) Active confirmed Problem Age-related osteoporosis (795375309) Age-related osteoporosis without current pathological fracture (M81.0) Active confirmed Problem Chronic fatigue syndrome (disorder) (79445475) Chronic fatigue, unspecified (R53.82) Active confirmed Vital Signs Heart Rate 73 /min 01/21/2024 Blood pressure diastolic 78 mm Hg 01/21/2024 Height 63 in 01/21/2024 Blood pressure systolic 138 mm Hg 01/21/2024 Weight 188.4 lbs 01/21/2024 BMI 33.37 kg/m2 01/21/2024 Encounters Encounter Location Date Provider Diagnosis [facility] - Kathi Aragon [address] [place] [address] 01/21/2024 Kathi Eramso Type 2 diabetes mellitus without complications E11.9 ; Hypoglycemia, unspecified E16.2 ; Age-related osteoporosis without current pathological fracture M81.0 ; Hyperlipidemia, unspecified E78.5 ; Obesity, unspecified E66.9 and Dietary counseling and surveillance Z71.3 [facility] [address] [place] [address] 12/22/2023 Provider Migration Type 2 diabetes mellitus with hypoglycemia without coma E11.649 and Insomnia due to medical condition G47.01 [facility] Kathi Aragon [address] [place] [address] 07/23/2023 Kathi Erasmo Age-related osteoporosis without current pathological fracture M81.0 [facility] Kathimae [address] [place] [address] 11/07/2023 Kathi Aragon Type 2 diabetes mellitus with hyperglycemia E11.65 and Type 2 diabetes mellitus with hypoglycemia without coma E11.649 [facility] - Kathi Aragon [address] [place] [address] 10/04/2023 Kathi Aragon [facility] [address] [place] [address] 10/12/2023 Kathi Aragon [facility] [address] [place] [address] 10/12/2023 Kathi Aragon [facility] [address] [place] [address] 10/27/2023 Kathi Aragon Other postherpetic nervous system involvement B02.29 [facility] - Kathi Aragon [address] [place] [address] 10/30/2023 Kathi Aragon Postherpetic trigeminal neuralgia B02.22 [facility] [address] [place] [address] 11/05/2023 Kathi [facility] - Kathi Aragon [address] [place] [address] 11/06/2023 Kathi Aragon [facility] [address] [place] [address] 11/07/2023 Kathi Aragon Insomnia due to medical condition G47.01 [facility] - Kathi Aragon [address] [place] [address] 12/20/2023 Kathi [facility] - Kathi Aragon [address] [place] [address] 12/21/2023 Kathi Aragon Type 2 diabetes mellitus with hypoglycemia without coma E11.649 [facility] - Kathi Aragon [address] [place] [address] 01/21/2024 Kathi [facility] - Kathi Aragon [address] [place] [address] 01/22/2024 Kathi [facility] - Kathi Aragon [address] [place] [address] 02/25/2024 Kathi [facility] - Kathi Aragon [address] [place] [address] 03/03/2024 Kathi Aragon [facility] Encounter Date Diagnosis (ICD Code) Assessment Notes Treatment Notes Treatment Clinical Notes Section Notes 01/21/2024 Type 2 diabetes mellitus without complications (ICD-10 - E11.9) 12/22/2023 Type 2 diabetes mellitus with hypoglycemia without coma (ICD-10 - E11.649) 12/22/2023 Insomnia due to medical condition (ICD-10 - G47.01) 07/23/2023 Age-related osteoporosis without current pathological fracture (ICD-10 - M81.0) Patient tolerated prolia injection without site reaction or pain. Will repeat in 6 months in mid Jan 2024. 11/07/2023 Type 2 diabetes mellitus with hyperglycemia (ICD-10 - E11.65) 10/27/2023 Other postherpetic nervous system involvement (ICD-10 - B02.29) 10/30/2023 Postherpetic trigeminal neuralgia (ICD-10 - B02.22) 11/07/2023 Insomnia due to medical condition (ICD-10 - G47.01) 12/21/2023 Type 2 diabetes mellitus with hypoglycemia without coma (ICD-10 - E11.649) 01/21/2024 Hypoglycemia, unspecified (ICD-10 - E16.2) 11/07/2023 Type 2 diabetes mellitus with hypoglycemia without coma (ICD-10 - E11.649) 01/21/2024 Age-related osteoporosis without current pathological fracture [...] - Investigate billing and coding issues with [facility] - Obtain updated lab work once [...] examination and/or evaluation, counseling and educating the patient/family/daycare assistant, ordering medications, tests, or procedures, referring and communicating with other health health care social worker, documenting clinical information in the electronic or other health record, independently interpreting results and communicating results to the patient/family/daycare assistant and care coordinating patient plan. Patient alert [...] Date Coverage End Date Medicare [address] [address] [place] [address] [id number] Tiffanie Ruiz Self - patient is the insured [facility] [address] [address] [place] [address] [phone] [id number] Tiffanie Ruiz Self - patient is the insured Medical (General) History Medical History History ICD Code HYPOGLYCEMIA type 2 DM hypothyroidism osteoporosis Surgical History Surgery Date(Month/Year) gastric bypass
--- OUTSIDE RECORDS SUMMARY | 2024-07-08 15:58 | XMS_ITS | Referral Summary ---
Author Organization [facility] Address [address] [place] [address] Care Team Providers Care Museum Or Zoo Director Name Role Phone Jona Bravo MD Primary Care Provider + Desire Sams RN Unavailable Un available Roscoe Mccollum MD Unavailable [phone] Encounters Date Type Department Care Team Description 05/29/2024 Orders Only [facility] [address] [place] [address] [address] [place] [address] Kendrick Hernandez MD Entrapment of left ulnar nerve (Primary Dx) 05/29/2024 Telephone [facility] [address] [place] [address] [address] [place] [address] Kendrick Hernandez MD 05/29/2024 10:30 AM CDT Office Visit [facility] [address] [place] [address] [address] [place] [address] Kendrick Hernandez MD MEREDITH (obstructive sleep apnea) (Primary Dx); Psychophysiological insomnia; Hypersomnia with sleep apnea; Obesity (BMI 30.0-34.9) 05/28/2024 4:26 PM CDT - 05/28/2024 11:59 PM CDT Hospital Encounter [facility] [address] [place] [address] Screening mammogram, encounter for Discharge Disposition: Discharge to home or self care 05/21/2024 7:00 PM CDT - 05/21/2024 11:59 PM CDT Hospital Encounter [facility] [address] [place] [address] MEREDITH (obstructive sleep apnea) Discharge Disposition: Discharge to home or self care from Last 3 Months Allergies Active Allergy [...] syringe USE DIRECTED WITH B-12 INJECTION 03/31/19 Active cyanocobalamin, vitamin B-12, 1,000 mcg/mL kit [...] pain 05/10/2021 Degenerative cervical spinal stenosis 09/12/2019 vermin exterminator (current) use of opiate analgesic 08/2019 Cervical radiculopathy 09/12/2019 Cervicalgia 09/12/2019 S/P gastric bypass 06/19/2018 Overview (12/26/2019): 06/19/18 Laparoscopic Judy-en-Y Gastric Bypass Chronic right-sided low back pain without sciati ca 05/02/2018 Sacroiliitis (CMS/HCC) - Right 05/02/2018 DDD (degenerative disc disease), lumbar 05/03/19 Actinic keratosis 04/11/2018 Assessment & Plan (04/11/2018 2:20 PM SURVEY TECHNOLOGIST): - Location/s: Face - Imiquimod Rx - [...] and without status migrainosus, not intractable Immunizations Immunization Administration Dates Next Due Hep [...] week 10/13/2021 How often do you attend [facility] or voodoo services? Never 10/13/2021 Do you belong to [...] place to sleep or slept in a group home (including now)? No 10/13/2021 PHQ-9 Answer Date [...] on file Legal Sex Female 12:46 AM SURVEY TECHNOLOGIST Gender Identity Female 04/08/2019 6:15 AM SURVEY TECHNOLOGIST Sexual Orientation Straight 04/08/2019 6: 15 AM SURVEY TECHNOLOGIST Occupation Industry Job Start Date Job End Date On Disability Not on file Not on file Not on file Last Filed Vital Signs Vital Sign Reading Time Taken Comments Blood Pressure 141/79 05/29/2024 10:09 AM CDT Pulse 65 05/29/2024 10:09 AM CDT Temperature 36.2 C (97.2 F) 01/07/2024 10:39 AM SURVEY TECHNOLOGIST Respiratory Rate 18 01/07/2024 6:00 PM SURVEY TECHNOLOGIST Oxygen Saturation 98% 05/29/2024 10:09 AM CDT Inhaled Oxygen Concentration - - Weight 85.5 kg (188 lb 6.4 oz) 05/29/2024 10:09 AM CDT Height 165.1 cm (5' 5) 05/29/2024 10:09 AM CDT Body Mass Index 31.35 05/29/2024 10:09 AM CDT Plan of Treatment Not on file Medical Devices Implanted Type Area Surgery Specialist Device Identifier Shelf Expiration Date Model / Serial / Lot [employer] Cruzito 180-223 Contour 6fr 26cm Large Inner Lumen Low Profile Bladder Lei Taper Latex Free - [id number] Implanted:Qty: 1 on 04/23/2018 by Christopher Her MD at [facility] Stent Right: Ureter [employer]ito 11/19/2020 180-223 / / [id number] Plates Screws N/A: Neck [employer] Lead Neurostimulator Sleep Apnea Thoracic Permanent Respiratory Sensing Inspire 43cm 4340 - [id number] - [id number] Implanted:Qty: 1 on 01/01/2024 by Caren Abraham MD at [facility] N/A: Chest [employer] 07/21/2026 4340 / [id number] / [employer] Inspire 3 Electrode Cuff Tunnel José Lead Neurostimulator Sterile 4063 - [id number] - [id number] Implanted:Qty: 1 on 01/01/2024 by Caren Abraham MD at [facility] N/A: Neck [employer] 01/22/2026 4063 / [id number] / [employer] Inspire Generator 3028 - [id number] - [id number] Implanted:Qty: 1 on 01/01/2024 by Caren Abraham MD at [facility] N/A: Chest [employer] 07/22/2026 3028 / [id number] / Procedures Procedure Name Priority Date/Time Associated Diagnosis Comments SCREENING MAMMOGRAM BILATERAL W DANILO Schedule Routine, Read Routine (OP Routine) 05/28/2024 4:41 PM CDT Screening mammogram, encounter for PSG (SIMPLE) Routine 05/22/2024 8:42 AM CDT MEREDITH (obstructive sleep apnea) EGFR STAT 01/07/2024 11:11 AM SURVEY TECHNOLOGIST HEMOGLOBIN A1C Routine 12/24/2023 10:56 AM SURVEY TECHNOLOGIST Type 2 diabetes mellitus with other specified complication, unspecified whether vermin exterminator insulin use (HCC) Pre-op testing DEXA [...] or continued 5.Avoid alcohol sedatives and other HEALTHCARE MANAGEMENT CONSULTANT depression that may worsen sleep apnea and [...] Re sult * eGFR (01/07/2024 11:11 AM SURVEY TECHNOLOGIST) eGFR >90 >=60 mL/min/1. 73 m2 Comment: [...] reviewed 2020. Blood 01/07/2024 11:1 1 AM SURVEY TECHNOLOGIST 01/07/2024 11:14 AM SURVEY TECHNOLOGIST us Ayla Ambrose MD LAB BLOOD ORDERABLE S Final Result [facility] Department [place] [address] * Hemoglobin A1c (12/24/2023 10:56 AM SURVEY TECHNOLOGIST) [facility] Signature Hgb A1C 5.0 4.0 - 5.6 % Estimated Average Glucose 97 mg/dL [facility] Comment: The ADA recommends reporting an estimated Average Glucose (eAG) with all Hemoglobin A1c results using the equation derived from a study of 507 normal and diabetic adults. Minority populations were underrepresented and children were not included. (Diabetes Care 31:2611-4044, 2008). The eAG is not equivalent to a fasting glucose. Blood 12/24/2023 10:5 6 AM SURVEY TECHNOLOGIST 12/24/2023 11:08 AM SURVEY TECHNOLOGIST us Ivet Hoyos NP LAB BLOOD ORDERABLES Final Res ult [facility] [address] Department [place] [address] * Dexa Axial and Forearm Bone Density Scan (09/08/2022 1:34 PM CDT) Anatomical Region Laterality Modality Wrist, Body N/A Other 09/09/2022 6:09 AM CDT Narrative 09/09/2022 6:11 AM CDT EXAM DESCRIPTION: DEXA AXIAL AND FOREARM BONE DENSITY SCAN REASON FOR STUDY: 62 y/o year old F with given history of: Hyperparathyroidism. Postmenopausal status. Osteoporosis. Surgery Specialist/Model: Transmit Promo SL (S/N 13340) CLINICAL INFORMATION: Current height: 63.5 inches Maximum [...] Electronically signed by Cecy Ratliff M.D. TW: Report ID: [id number] Reading Location: [place] [address] Procedure Note Cecy Ratliff MD - 09/09/2022 EXAM DESCRIPTION: DEXA AXIAL AND FOREARM BONE DENSITY SCAN REASON FOR STUDY: 62 y/o year old F with given history of: Hyperparathyroidism. Postmenopausal status. Osteoporosis. Surgery Specialist/Model: Neverfail (S/N 17928) CLINICAL INFORMATION: Current height: 63.5 inches Maximum [...] Cecy Ratliff M.D. TW: BAKARI Report ID: [id number] Reading Location: [id number] us Dylan To MD IM DXA PROCEDURES Final Result * Lipid panel (10/10/2021 1:52 PM CDT) [facility] Cholesterol 139 30 - 199 mg/dL [facility] [...] revised on 2017. Triglycerides 36 <=149 mg/dL [facility] Comment: Interpretive Data Ages < or = [...] revised on 2017. HDL 72 >=40 mg/dL [facility] Comment: Interpretive Data Ages < or = [...] on 2017. LDL, calculated 60 <=129 mg/dL [facility] Comment: Interpretive Data Ages < or = [...] on 2017. Non-HDL Cholesterol 67 mg/dL [facility] Comment: Interpretive Data Ages < [...] last revised on 2017. Chol/HDL ratio 2 [facility] Blood 10/10/2021 1:52 PM CDT 10/10/2021 2:07 PM CDT us Mauricio Chaudhary MD LAB BLOOD ORDERABLES Final Result [facility] [place] [address] from Last 3 Months or Most Recently Relevant to Health Maintenance Insurance MEDICARE CHOICE [facility] [place] Advance Directives For more information, please contact: [phone] * Full Code (Latest Code Status on File) Date Activated Date Inactivated Comments 10/10/2021 5:37 PM 10/11/2021 8:50 PM * Full Code Date Activated Date Inactivated Comments 08/18/2017 6:39 PM 08/22/2017 3:42 PM Care Teams Museum Or Zoo Director Relationship Specialty Start Date End Date Jona Bravo MD PCP - General 05/05/16 Desire Sams, RN Registered Nurse 04/03/17 Roscoe Mccollum MD [address] [place] [address] DR THAYER [address] [place] [address] Anesthesiologist Pain Management 12/21/21
--- OUTSIDE RECORDS SUMMARY | 2024-07-08 15:58 | XMS_ITS | Encounter Summary ---
Author Organization [facility] Address [address] [place] [address] Care Team Providers Care Vice President Of Brand Management Name Role Phone Jesse Garcia MD Primary Care Provider [phone] Jona Bravo MD Primary Care Provider [phone] Kirill Jean MD Primary Care Provider [phone] Jona Bravo MD Primary Care Provider [phone] Kirill Jean MD Primary Care Provider [phone] Jona Bravo MD Primary Care Provider [phone] Encounter Details Date Type Department Care Team (Late st Contact Info) Description 08/05/2010 [facility] Steph Mar, CYLINDER HONER-EDUCATION COUNSELOR [address] [address] Social History Tobacco Use Types Packs/Day Years Used Date Smoking Tobacco: Never Smokeless Tobacco: Never Alcohol Use Standard Drinks/Week Comments No 0 (1 standard drink = 0.6 oz pur e alcohol) Comments Unknown Sex and Gender Information Value Date Recorded Sex Assigned at Female 04/25/2020 11:44 PM CDT Legal Sex Female 6:58 AM TOLL MECHANIC Gender Identity Female 04/25/2020 11:44 PM CDT Sexual Orientation Straight 04/25/2020 11 :44 PM CDT documented as of this encounter Plan of Treatment Upcoming Encounters Date Type Department Care Team (Late st Contact Info) Description 04/13/2025 10:00 AM CDT Procedure visit [facility] - [address] [phone] 04/13/2025 10:30 AM CDT Office Visit [facility] - GI [address] [place] [phone] Soham Hutton MD [address] [place] [address] [place] [address] documented as of this encounter Visit Diagnoses Not on filedocumented in this encounter Care Teams Vice President Of Brand Management Relationship Specialty Start Date End Date Jesse Garcia MD [address] [address] PCP - General 11/04/09 06/30/14 Jona Bravo MD [address] [address] PCP - General Internal Medicine 11/29/15 05/23/17 Kirill Jean MD [address] [place] [phone] PCP - General 05/24/17 12/16/17 Jona Bravo MD [address] [place] [address] PCP - General Internal Medicine 12/17/17 03/19/18 Kirill Jean MD [address] [place] [phone] PCP - General 03/20/18 03/25/18 Jona Bravo MD [address] [place] [address] PCP - General Internal Medicine 03/26/18 05/01/18 Kirill Jean MD [address] [facility] [place] [phone] PCP - General 05/02/18 06/18/18 Jona Bravo MD [address] [place] [address] PCP - General Internal Medicine 06/19/18 07/31/18 Kirill Jean MD [address] [place] [phone] PCP - General 08/01/18 11/19/18 Kirill Jean MD [address] [place] [phone] PCP - General 02/13/19 09/18/19 Tenisha Tena MD 4 [facility] [address] [place] [address] PCP - General Family Medicine 09/19/19 01/07/20 Kirill Jean MD [address] [place] [address] PCP - General 01/08/20 10/15/22 Jona Bravo MD [address] [place] [address] PCP - General Internal Medicine 10/16/22 documented as of this encounter
--- OUTSIDE RECORDS SUMMARY | 2024-07-08 15:58 | XMS_ITS | Patient Health Record ---
Author Organization [facility] Address [address] [facility] [address] [place] [address] Care Team Providers Care Diesel Engine Inspector Name Role Phone Shelly HALE, Jona Primary Care Provider Dave dennis Mary Hewitt Unavailable [phone] Allergies Allergen (clinical drug ingredient) Drug/Non Drug Allergy documented on EMR Reaction Allergy Type Onset Date Status gabapentin Gabapentin Unknown Drug Allergy 07/08/2017 Acti ve Levaquin Unknown Drug Allergy 07/08/2017 Active meperidine Meperidine HCl Unknown Drug Allergy 07/08/2017 Active prochlorperazine Prochlorperazine Unknown Drug Allergy 04/2017 Active Adhesive Unknown Allergy 07/08/2017 Active codeine Codeine Unknown Drug Allergy 07/08/2017 Active Reason For Referral No Information Medications Medication SIG (Take, Route, Frequency, Duration) Notes Start Date End Date Status Copper 3 mg daily - *Pick strength-form from Aqwisean for eRX* Active Zinc 30 mg daily oral Active Omeprazole 20 MG take 1 capsule (20 mg) by oral route once daily before a meal Oral 1 Active Biotin - daily oral *Pick strength-form from Aqwisean for eRX* Active MULTIPLE VITAMINS W/IRON take 1 tablet b y oral route once Oral 1 *Reorder from Aqwisean for eRx and Interaction Alerts* Active Levothyroxine Sodium 88 MCG take 1 capsule (88 mcg) by oral route once daily Oral 1 Active Eszopiclone 3 MG take 1 tablet (3 mg) by oral route once daily at bedtime Oral 1 Active Xanax - - oral *Pick strength-form from Aqwisean for eRX* Active Pravastatin Sodium 40 MG [...] Active E-Gems - daily oral *Reorder from Construct for eRx and Interaction Alerts* Active Cymbalta 30 MG take 1 capsule (30 mg) by oral route once daily Oral 1 Active Problems Problem Type SNOMED Code ICD Code Onset Dates Problem Status W/U Status Risk Notes Problem 538910507 Rheumatoid arthritis without rheumatoid factor, multiple sites (M06.09) Active confirmed Problem 049346150 Fibromyalgia (M79.7) Active confirmed Plan Of Treatment Pending Test Test Name [...] Date Coverage End Date Medicare [address] [address] [place] [address] [id number] Tiffanie Ruiz Self - patient is the insured 8 [place] [address] [place] [address] [id number] Tiffanie Ruiz Self - patient is the insured [employer] [address] [place] [address] [id number] Tiffanie Ruiz Self - patient is the insured Medical (General) History Medical History History ICD Code Depression; Fibromyalgia; Hyperlipidemia; Hypertension; Hypothyroidism; Low Back Pain; Sleep apnea;
--- OUTSIDE RECORDS SUMMARY | 2024-07-08 15:58 | XMS_ITS ---
Author Organization [facility] Address [address] [place] [address] Care Team Providers Care Coal Pulverizer Operator Name Role Phone Kathi Zimmerman Primary Care Provider Encounters Encounter Location Date Provider Diagnosis [facility] - Kathi Zimmerman [address] [place] [address] 03/03/2024 Kathi Zimmerman Plan Of Treatment No Information Progress Notes * Javon GRESHAMOB:02[birth year]04 (64 yo F)Acc No.[id number]:03/03/2024 Patient: Tiera DANlotte :1960 A ge:64 Y S ex:Female Address:[place] [address] * true * Date: Generated for Printi ng/Fasandipg/eTransmitting on: 0 07/08/2024 03:58 PM CDT
--- OUTSIDE RECORDS SUMMARY | 2024-07-08 15:58 | XMS_ITS | Encounter Summary ---
Author Organization [facility] Address [address] [place] [address] Care Team Providers Care Combat Systems Operator Name Role Phone Jona Bravo MD Primary Care Provider Reason for Visit * Reason Onset Date Comments Red flag- Severe Pain 08/14/2022 Encounter Details Date Type Department Care Team (Late st Contact Info) Description 08/14/2022 Telephone [facility] Primary Care [address] [place] [address] Jona Bravo MD [address] [place] [address] [address] [place] [address] Red flag- Severe Pain Social [...] attend chur ch or rastafari services? Never 01/11/2020 Do you belong to any clubs o r organizations such as pentecostalism groups, unions, fraternal or athletic groups, or [...] on file Legal Sex Female 9:43 AM ECONOMICS DEPARTMENT CHAIR Gender Identity Not on file Sexual Orientation [...] and suggested an injection. Call back number: [phone] (home) Home Phone Work Phone documented in this encounter Plan of Treatment Upcoming Encounters Date Type Department Care Team (Late st Contact Info) Description 07/11/2024 9:00 AM CDT Appointment [facility] CT Scan Shock [address] [facility] [address] [place] [phone] [place] [address] [facility] [address] [place] [address] 07/29/2024 8:30 AM CDT Office Visit [facility] Surgical Specialists [facility] [address] [facility] [address] [place] [address] [place] [address] [facility] [address] [place] [address] 08/25/2024 10:40 AM CDT Office Visit [facility] Primary Care [facility] [address] [facility] [address] [place] [phone] Jona Bravo MD [address] [facility] [address] [place] [address] documented as of this encounter Visit Diagnoses Not on filedocumented in this encounter Care Teams Combat Systems Operator Relationship Specialty Start Date End Date Jona Bravo MD PCP - General Internal Medicine 11/25/15 documented as of this encounter
--- OUTSIDE RECORDS SUMMARY | 2024-07-08 15:58 | XMS_ITS | Encounter Summary ---
Author Organization [facility] Address [address] [place] [address] Care Team Providers Care Crystal Grower Name Role Phone Jona Bravo MD Primary Care Provider Reason for Visit * Reason Onset Date Comments HFU 10/11/2021 Encounter Details Date Type Department Care Team (Late st Contact Info) Description 10/11/2021 Telephone [facility] Primary Care [address] [place] [address] Jona Bravo MD [address] [place] [address] [address] [place] [address] HFU Social History Tobacco Use [...] any clubs o r organizations such as synagogue groups, unions, fraternal or athletic groups, or [...] on file Legal Sex Female 9:43 AM UTILITY SPECIALIST Gender Identity Not on file Sexual [...] - 10/11/2021 1:30 PM CDT CB pt [phone] (home) Patient is being discharged from the hospital today, 10/11, from [facility] according to case management assistant Krzysztof. Patient was scheduled for a hospital follow up with PCP for 10/14/21; caller stated that [facility] wants patients to be seen no sooner than 7 days after discharge; PSA informed patient needs to be seen within 5 days per PCP; caller stated she may advise patient to reschedule. Please call the patient to [facility] and request medical records as it was not mentioned during the call. documented in this encounter Plan of Treatment Upcoming Encounters Date Type Department Care Team (Late st Contact Info) Description 07/11/2024 9:00 AM CDT Appointment [facility] CT Scan [place] [address] [facility] [address] [place] [phone] [place] [address] [facility] [address] [place] [address] 07/29/2024 8:30 AM CDT Office Visit [facility] Surgical Specialists [facility] [address] [facility] [address] [place] [address] [place] [address] [facility] [address] [place] [address] 08/25/2024 10:40 AM CDT Office Visit [facility] Primary Care [facility] [address] [facility] [address] [place] [phone] Jona Bravo MD 6[address] [facility] [address] [place] [phone] documented as of this encounter Visit Diagnoses Not on filedocumented in this encounter Additional Health Concerns Assessment Noted Time PHQ-9 Depression Total Score: 2 01/11/20 20 4:07 PM UTILITY SPECIALIST documented as of this encounter Care Teams Crystal Grower Relationship Specialty Start Date End Date Jona Bravo MD PCP - General Internal Medicine 11/25/15 documented as of this encounter
--- OUTSIDE RECORDS SUMMARY | 2024-07-08 15:58 | XMS_ITS ---
Author Organization [facility] Address [address] [place] [address] Care Team Providers Care Senior Administrator Support Name Role Phone Shelly HALE, Jona Primary Care Provider Unavaila Mary Trent Unavailable [phone] REASON FOR VISIT 1 year f/u Encounters Encounter Location Date Provider Diagnosis [facility] [address] [facility] [address] [place] [address] 04/02/2024 Mary Saul Plan Of Treatment No Information Progress Notes * JOSEPHTiffanie ADOB: (64 yo F)Acc No.[id number]:04/02/2024 Progress Notes Patient: Tiffanie DAN Appointment Provider: Fior SAUL MD :1960 A ge:64 Y S ex:Female Date:04/02/2024 [facility] Pcp:Jona Bravo MD Subjective: * Chief Complaints: * 1 . 1 year f/u. * Medical History: Objective: * Vitals: Assessment: Plan: * Treatment: * Billing Information: * Visit Code: * Procedure Codes: * Electronic signature of Mary Saul MD on 07/08/2024 at 03:58 PM CDT Sign off status: Pending * Appointment Provider: Fior SAUL MD Date: 0 04/02/2024 Generated for Printi ng/Faxing/eTransmitting on: 0 07/08/2024 03:58 PM CDT
--- OUTSIDE RECORDS SUMMARY | 2024-07-08 15:58 | XMS_ITS | Encounter Summary ---
Author Organization [facility] Address [address] [place] [address] Phone Care Team Providers Care Rod Mill Tender Name Role Phone Jona Bravo MD Primary Care Provider Reason for Visit * Reason Comments Med Refill Encounter Details Date Type Department Care Team (Late st Contact Info) Description 11/06/2021 Refill [facility] [address] [place] [address] Janeht Betts PA [address] [place] [address] Social History Tobacco Use Types Packs/Day Years Used Date Smoking Tobacco: Never Smokeless Tobacco: Never Comments Unknown Sex and Gender Information Value [...] Description 09/11/2024 2:20 PM CDT Office Visit [facility] [address] [place] [address] Janeth Betts PA [address] [place] [address] 10/07/2025 1:20 PM CDT Office Visit [facility] [address] [place] [address] Uche Vela MD [address] [place] [address] documented as of this encounter Visit Diagnoses Not on filedocumented in this encounter Care Teams Rod Mill Tender Relationship Specialty Start Date End Date Jona Bravo MD [address] [place] [address] PCP - General Internal Medicine 06/16/19 documented as of this encounter
--- OUTSIDE RECORDS SUMMARY | 2024-07-08 15:59 | XMS_ITS ---
Author Organization [facility] Address [address] [place] [address] Care Team Providers Care Project Scheduler Name Role Phone Kathi Zimmerman Primary Care Provider REASON FOR VISIT Returning RPM Equipment Encounters Encounter Location Date Provider Diagnosis [facility] - Kathi Zimmerman [address] [place] [address] 02/25/2024 Kathi Zimmerman Plan Of Treatment No Information Progress Notes * Javon GRESHAMOB:[birth year] (64 yo F)Acc No.[id number]:02/25/2024 Patient: Rubén DANte :1960 A ge:64 Y S ex:Female Address:[place] [address] * true * Date: Generated for Printi ng/Faxing/eTransmitting on: 0 07/08/2024 03:59 PM CDT
--- OUTSIDE RECORDS SUMMARY | 2024-07-08 15:59 | XMS_ITS | Encounter Summary ---
Author Organization [facility] Address [address] [place] [address] Care Team Providers Care Vigoureux Printer Name Role Phone Jona Bravo MD Primary Care Provider [phone] Reason for Visit * Reason Comments Question Encounter Details Date Type Department Care Team ([facility] st Contact Info) Description 04/23/2023 Telephone [facility] Primary Care [address] [place] [address] Jona Bravo MD [address] [facility] [address] [place] [address] Question Social History Tobacco Use [...] any clubs o r organizations such as adventist groups, unions, fraternal or athletic groups, or [...] on file Legal Sex Female 9:43 AM [employer]OUNT[employer] PAYABLE SPECIALIST Gender Identity Not on file Sexual Orientation Not on file 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 Topic: Patient or Caregiver Communication Request >> Apr 23, 2023 1:32 PM Adelina Harper wrote: Patient or Caregiver requesting advice Caller: Tiffanie Ruiz Patient/Caregiver Callback Number: [phone] (home) Call Notes: Patient is calling she is needing an orthopedic referral and her referral for Eric Martinez MD is still pending and needs to be faxed to this number. Please advise. Dr Martinez FAX# [phone] documented in this encounter Plan of Treatment Upcoming Encounters Date Type Department Care Team (Late st Contact Info) Description 07/11/2024 9:00 AM CDT Appointment [facility] [address] [facility] [address] [place] [address] [place] [address] [facility] [address] [place] [address] 07/29/2024 8:30 AM CDT Office Visit [facility] [address] [facility] [address] [place] [address] [place] [address] [facility] [address] [place] [address] 08/25/2024 10:40 AM CDT Office Visit [facility] Primary Care [facility] [address] [facility] [address] [place] [address] Jona Bravo MD [address] [facility] [address] [place] [address] documented as of this encounter Visit Diagnoses Not on filedocumented in this encounter Care Teams Vigoureux Printer Relationship Specialty Start Date End Date Jona Bravo MD PCP - General Internal Medicine 11/25/15 documented as of this encounter
--- OUTSIDE RECORDS SUMMARY | 2024-07-08 15:59 | XMS_ITS ---
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
--- OUTSIDE RECORDS SUMMARY | 2024-07-08 15:59 | XMS_ITS | Data Portability ---
Author Organization [facility] [place] Address [address] [place] [address] Assessment Encounter Date Assessment Date Assessment LastModified by Organization Details LastModified Time 04/25/2024 04/25/2024 Annual gynecological exam performed. Patient will come back in a year unless there are new symptoms. [email or web address] Not available 04/25/2024 11:15:01 Plan of Treatment Reminders Order Date Submit Date Provider Last Modified By Organization Details Last Modified Time Details Appointments FOLLOW UP 2024 10:00A Naomi NEWELL MD Not available Not available Not available Lab testoster one, total, serum 2024 025 [facility] (Lab), [address] [place], [address], 05/02/2024 15:24:46 testoster one, free, serum 2024 025 [facility] (Lab), [address] [place], [address], 05/02/2024 15:24:46 testoster one, total, serum 2023 024 [facility] (Lab), [address] [place], [address], 01/24/2024 22:07:50 testoster one, free, serum 2023 024 [facility] (Lab), [address] [place], [address], 01/24/2024 22:07:50 CMP, serum or plasma 2023 024 [facility] (Lab), [address] [place], [address], 01/24/2024 22:07:49 Referral None recorded. Procedures None recorded. Surgeries None recorded. Imaging None recorded. Medication Orders estradiol 0.01% (0.1 mg/gram) vaginal cream 2023 025 [facility] [place], [address], 04/25/2024 11:19:11 clobetaso l 0.05 % topical ointment [email or web address] [place] [address] [facility] [address] [place], [address], 04/25/2024 11:18:58 Patient TargetsNo targets recorded. Patient InstructionsNo instructions recorded. Reason for Referral None Reported. Results Created Date Observation Date Name Description Value Unit Range Abnormal Flag Note LastModifiedBy Organization Detail LastModifiedTime 01/18/20 24 01/18/2024 CMP(C OMPRE HENSI VE METAB OLIC PANEL ) sodium 141 mmol/ L 133-14 6 Not Available [facility] (Lab) [address], [place], [address], 01/24/2024 22:07:49 01/18/20 24 01/18/2024 CMP(C OMPRE HENSI VE METAB OLIC PANEL ) potassium 4.1 mmol/ L 3.5-5. 1 Not Available [facility] (Lab) [address] [place], [address], 01/24/2024 22:07:49 01/18/20 24 01/18/2024 CMP(C OMPRE HENSI VE METAB OLIC PANEL ) chloride 105 mmol/ L 98-107 Not Available [facility] (Lab) [address] [place], [address], 01/24/2024 22:07:49 01/18/20 24 01/18/2024 CMP(C OMPRE HENSI VE METAB OLIC PANEL ) carbon dioxide 30 mmol/ L 21-31 Not Available [facility] (Lab) [address], [place], [address], 01/24/2024 22:07:49 01/18/20 24 01/18/2024 CMP(C OMPRE HENSI VE METAB OLIC PANEL ) anion gap 6 mmol/ L 4-13 Not Available [facility] (Lab) [address], [place], [address], 01/24/2024 22:07:49 01/18/20 24 01/18/2024 CMP(C OMPRE HENSI VE METAB OLIC PANEL ) blood urea nitrogen 23 mg/dL 7-25 Not Available [facility] (Lab) [address], [place], [address], 01/24/2024 22:07:49 01/18/20 24 01/18/2024 CMP(C OMPRE HENSI VE METAB OLIC PANEL ) creatinine 0.69 mg/dL 0.60-1 .30 Not Available [facility] (Lab) [address], [place], [address], 01/24/2024 22:07:49 01/18/20 24 01/18/2024 CMP(C OMPRE HENSI VE METAB OLIC PANEL ) egfrcr (CKD-epi 2020) >90 mL/mi n/1.7 3_m2 >=60 Not Available [facility] (Lab) [address], [place], [address], 01/24/2024 22:07:49 01/18/20 24 01/18/2024 CMP(C OMPRE HENSI VE METAB OLIC PANEL ) calcium 9.3 mg/dL 8.3-10 .5 Not Available [facility] (Lab) [address], [place], [address], 01/24/2024 22:07:49 01/18/20 24 01/18/2024 CMP(C OMPRE HENSI VE METAB OLIC PANEL ) glucose 81 mg/dL 70-100 Not Available [facility] (Lab) [address], [place], [address], 01/24/2024 22:07:49 01/18/20 24 01/18/2024 CMP(C OMPRE HENSI VE METAB OLIC PANEL ) protein, total 6.7 g/dL 6.4-8. 3 Not Available [facility] (Lab) [address], [place], [address], 01/24/2024 22:07:49 01/18/20 24 01/18/2024 CMP(C OMPRE HENSI VE METAB OLIC PANEL ) albumin 4.5 g/dL 3.5-5. 0 Not Available [facility] (Lab) [address], [place], [address], 01/24/2024 22:07:49 01/18/20 24 01/18/2024 CMP(C OMPRE HENSI VE METAB OLIC PANEL ) ALT 54 units /L 9-43 high Not Available [facility] (Lab) [address], [place], [address], 01/24/2024 22:07:49 01/18/20 24 01/18/2024 CMP(C OMPRE HENSI VE METAB OLIC PANEL ) alkaline phosphatase 64 units /L 34-104 Not Available [facility] (Lab) [address] [place], [address], 01/24/2024 22:07:49 01/18/20 24 01/18/2024 CMP(C OMPRE HENSI VE METAB OLIC PANEL ) AST 42 units /L 13-39 high Not Available [facility] (Lab) [address] [place], [address], 01/24/2024 22:07:49 01/18/20 24 01/18/2024 CMP(C OMPRE HENSI VE METAB OLIC PANEL ) bilirubin, total 0.7 mg/dL 0.2-1. 2 Not Available [facility] (Lab) [address], [place], [address], 01/24/2024 22:07:49 01/18/20 24 01/18/2024 TESTO STERO NE, TOTAL testosterone , total <10 NG/dL 0-75 Not Available [facility] (Lab) [address], [place], [address], 01/24/2024 22:07:50 01/18/20 24 01/18/2024 TESTO STERO NE, FREE testosterone free 0.3 pg/mL 0.2-5. 0 The yumi ntrat ion of free testo stero ne is deriv ed from a andrew lezama model using total testo stero ne by LCMSM S, sex hormo ne velma ng globu lizbeth and album in. This test was devel oped and its madison tical perfo rmanc e gus cteri stics have been deter mined by [facility] [place], [place]. It has not been clear ed or appro otilia by the U.S. Food and Drug Admin istra tion. This assay has been valid ated pursu ant to the CLIA regul ation s and is used for clini fortunato purpo ses. Perfo rming Organ izati on Infor matnorbert n: Site ID: AMD Name: [facility] Addre ss: [id number] [place], [place] Direc tor: Nolan Coelho MD PhD Not Available [facility] (Lab) [address], [place], [address], 01/24/2024 22:07:50 04/26/19 25 04/25/2024 WOMEN 'S HEALT H SWAB PLUS, KATELIN bacterial vaginosis (bv), tma Negati ve negati ve Not Available [facility] (Lab) [address], [place], [address], 05/01/2024 12:36:23 04/26/19 25 04/25/2024 WOMEN 'S HEALT H SWAB PLUS, KATELIN damaris species, tma Negati ve negati ve Not Available [facility] (Lab) [address] [place], [address], 05/01/2024 12:36:23 04/26/19 25 04/25/2024 [facility] SWAB PLUS, KATELIN damaris glabrata, tma Negati ve negati ve Not Available [facility] (Lab) [address] [place], [address], 05/01/2024 12:36:23 04/26/19 25 04/25/2024 [facility] SWAB PLUS, KATELIN trichomonas vaginalis, tma Negati ve negati ve Not Available [facility] (Lab) [address], [place], [address], 05/01/2024 12:36:23 04/26/19 25 04/25/2024 [facility] SWAB PLUS, KATELIN chlamydia trachomatis, PCR Negati ve negati ve Not Available [facility] (Lab) [address] [place], [address], 05/01/2024 12:36:23 04/26/19 25 04/25/2024 [facility] SWAB PLUS, KATELIN neisseria gonorrhoeae, PCR Negati ve negati ve : Routi ne : VAGIN AL Bacte rial vagin osis detec ts the follo wing bacte kumar assoc iated with bacte rial vagin osis (BV): Lacto bacil meghna (L. gasse ri, L. crisp atus and L. jense rustam), Gardn erell a vagin kinsey, and Atopo bium vagin ae. A singl e quali tativ e resul t is repor lamont base on instr ument softw are to deter mine BV posit miguel or negat miguel statu s. The Ghislaine da speci es group tests for C. albic ans, C. tropi calis , C. parap onur is, C. dubli titi is. Testaleta baldwin is perfo rmed using the Trans cript ion Media lamont Ampli ficat ion metho d. Tests for Ghislaine da glabr isha, Trich omona s vagin kinsey, Chlam ydia trach omati s, and Neiss eria gonor rhoea e are also inclu ded in this panel . Not Available [facility] (Lab) [address], [place], [address], 05/01/2024 12:36:23 04/26/19 25 04/25/2024 IMAGE GUIDE D PAP AND HPV REGAR DLESS image guided Pap, HPV regardless of Pap result SEE RESULT S BELOW CASE REPOR T: Cytol ogy Gynec ologi fortunato Repor t Case: [id number] Autho leisa kathi Provi mariama: Oswaldo Rouse MD Colle cted: 04/25 1146 Order ing Locat ion: [place] [facility] Recei otilia: 04/28 0714 First Reese n: Sonia Saldaña, CT Rescr een: Gisselle Leon Speci men: Reese snachez Pap - Image d, Vagin anahi STATE MENT OF ADEQU ACY: Unsat isfac tory for evalu ation . ----- ----- ----- ----- ----- ----- ----- ----- ----- ----- ----- ----- ----- ----- ----- ----- ----- ---- FINAL DIAGN OSIS: Unsat isfac tory for evalu ation . Scant squam ous cellu larit y due to milys s antonio carrasco. Storm white by Gisselle villasenor on 2024 at 1131 CDT ----- ----- ----- ----- ----- ----- ----- ----- ----- ----- ----- ----- ----- ----- ----- ----- ----- ---- HPV RESUL TS: HPV mRNA E6/E7 : No HPV mRNA Detec lamont NOTE: This high risk HPV mRNA assay detec ts fourt een high- risk HPV types (16, 18, 31, 33, 35, 39, 45, 51, 52, 56, 58, 59, 66, 68) witho ut meñoe hayley ation . COMME NT: Slide scree erlin rebel cummins due to rejec tion by the Thinp rep Imagi ng Syste m. CLINI FORTUNATO INFOR MATIO N: Menst rual Statu s: LMP (if appli cable ): Clini fortunato Histo ry/Pr eviou s Pap: Type of Neopl adán (if appli cable ): Signi fican t Clini fortunato Findi ngs: Other Histo ry: Hormo greg (if appli cable ): Not Available [facility] (Lab) [address] [place], [address], 05/01/2024 12:36:23 04/26/19 25 04/25/2024 TESTO STERO NE, TOTAL testosterone , total 22 NG/dL 0-75 Not Available [facility] (Lab) [address] [place], [address], 05/02/2024 15:24:46 04/26/19 25 04/25/2024 TESTO STERO NE, FREE testosterone free 0.7 pg/mL 0.2-5. 0 The yumi ntrat ion of free testo stero ne is deriv ed from a andrwe lezama model using total testo stero ne by LCMSM S, sex hormo ne velma ng micahu lizbeth and album in. This test was devel oped and its madison tical perfo rmanc e gus cteri stics have been deter mined by [facility], [place]. It has not been clear ed or appro otilia by the U.S. Food and Drug Admin istra tion. This assay has been valid ated pursu ant to the CLIA regul ation s and is used for clini fortunato purpo ses. Perfo rming Organ izati on Infor laith n: Site ID: AMD Name: Messi Moraes ss: [id number] [facility] [place], [place] Direc tor: Nolan Coelho MD PhD Not Available [facility] (Lab) [address], [place], [address], 05/02/2024 15:24:46 Result Notes None recorded. Procedures Surgical History Date Name Laterality Status Provider Name and Address Organization Details Recorded Time 11/18/19 23 completed [facility] 12/18/2023 17:38:10 11/14/19 23 Date of Last Mammogram completed [facility] 12/18/2023 17:38:32 06/13/19 23 Most Recent Bone Density completed [facility] 12/18/2023 17:38:32 11/07/19 20 Date of Last Colonoscopy completed [facility] 12/18/2023 17:38:32 06/25/19 20 Date of Last Pap Smear completed [facility] 12/18/2023 17:38:32 06/24/19 19 completed [facility] 12/18/2023 17:38:10 06/24/19 19 Gastric Bypass completed [facility] 12/18/2023 17:38:10 06/20/19 19 Bariatric Surgery completed [facility] 12/18/2023 17:38:10 06/24/19 00 Colonoscopy completed [facility] 12/18/2023 17:38:10 Gastric Bypass completed [facility] 12/18/2023 17:38:10 LEEP completed [facility] 12/18/2023 17:38:10 Dilation and Curettage completed [facility] 12/18/2023 17:38:10 Orthopedic Surgery completed [facility] 12/18/2023 17:38:10 Endometrial Ablation completed [facility] 12/18/2023 17:38:10 Hysteroscopy completed [facility] 12/18/2023 17:38:10 Laparoscopy completed [facility] 12/18/2023 17:38:10 Endometrial Biopsy completed [facility] 12/18/2023 17:38:10 Other completed [facility] 12/18/2023 17:38:10 Total Hysterectomy completed [facility] 12/18/2023 17:38:10 Appendectomy completed [facility] 12/18/2023 17:38:10 Imaging Results None recorded. Procedure Notes None recorded. Medical Equipment None Reported. Allergies Allergen ID Allergen Name Allergen Category Reaction Reaction Severity Criticality Documentation Date Start Date Code Code System Note Provider Name and Address Organization Details Recorded Time 18283 codeine medicatio n Not available Not available Not available 12/18/2023 2670 RxNorm Renettarenato Maldonado [facility] 17:48:47 02761 meperidin e medicatio n Not available Not available Not available 12/18/2023 6754 RxNorm Renettarenato Maldonado [facility] 4 17:49:01 94506 levofloxa vishnu medicatio n Not available Not available Not available 12/18/2023 01880 RxNorm Renetta laguna, [facility] 4 17:49:16 95869 gabapenti n medicatio n Not available Not available Not available 12/18/2023 64934 RxNorm Renetta Maldonado [facility] 4 17:49:27 85206 adhesive tape environme nt,medica tion Not available Not available Not available 12/18/2023 57985 UNK Renetta Maldonado [facility] 4 17:49:34 63545 doxycycli ne Not available Not available Not available Not available 12/18/2023 3640 RxNorm Renetta Maldonado [facility] 4 17:49:45 Medications Name Sig Start Date Stop Date Status Note LastModified by Organization Details LastModified Time relion insulin syringe 31g x 15/64 relion insulin syringe 31g x 15/64 1 ml misc active Not Available Not Available Not Available relion insulin syringe 31g x 5/16 relion insulin syringe 31g x 5/16 1 ml misc active Not Available Not Available Not Available azithromyci n 250 mg tablet TAKE 2 TABLETS BY MOUTH ON DAY 1, AND THEN TAKE 1 TABLET BY MOUTH ONCE A DAY ON DAY 2 THROUGH DAY 5 04/25 completed Not Available Not Available Not Available tizanidine [...] MOUTH EVERY 6 HOURS NEEDED FOR PAIN 04/25 completed Not Available Not Available Not Available prednisone 20 mg tablet TAKE 2 TABLETS BY MOUTH ONCE DAILY FOR 3 DAYS THEN 1 ONCE DAILY FOR 3 DAYS active Not Available Not Available No [...] tablet TAKE 1 TABLET BY MOUTH EVERY 12 HOURS active Not Available Not Available No t Available hydrocodone 10 mg-acetamin ophen 325 mg tablet 12/17 completed Not Available Not Available Not Available tramadol 50 mg tablet TAKE 1 TABLET BY MOUTH EVERY 6 HOURS NEEDED FOR PAIN active Not Available Not Available No t Available spironolact one 25 mg tablet TAKE 1 TABLET BY MOUTH ONCE DAILY active Not Available Not Available No t Available ketorolac 10 mg tablet TAKE 1 [...] Available Not Available temazepam 15 mg capsule TAKE 1 CAPSULE BY MOUTH NIGHTLY NEEDED FOR SLEEP active Not Available Not Available No t Available tamsulosin 0.4 mg capsule TAKE 1 CAPSULE BY MOUTH ONCE DAILY active Not Available Not Available No t Available potassium citrate ER 10 mEq (1,080 mg) tablet,exte nded release active Not Available Not Available Not Available cephalexin 500 mg capsule TAKE 1 CAPSULE BY MOUTH EVERY 8 HOURS active Not Available Not Available No t Available cyanocobala min (vit B-12) 1,000 mcg/mL injection solution active Not Available Not Available Not Available oseltamivir 75 mg capsule active Not Available Not Available Not Available buspirone 10 mg tablet active Not Available Not Available Not Available losartan 25 mg tablet 01/17 completed Not Available Not Available Not Available clobetasol 0.05 % topical ointment APPLY A THIN LAYER(1g) TO THE AFFECTED AREA(vulv a) ONCE DAILY FOR 1 MONTH 04/25 completed Not Available Not Available Not Available estradiol 0.01% (0.1 mg/gram) vaginal cream Insert 1 g 3 times a week by vaginal route for 30 days. 04/25 completed Not Available Not Available Not Available albuterol sulfate HFA 90 mcg/actuati on aerosol inhaler active Not Available Not Available Not Available SSD 1 % topical cream 12/17 completed Not Available Not Available Not Available oxybutynin chloride 5 mg tablet TAKE 1 TABLET BY MOUTH TWICE DAILY NEEDED FOR BLADDER SPASMS active Not Available Not Available No t Available cefdinir 300 mg capsule active Not [...] Not Available Not Available No t Available nitrofurant oin monohydrate /macrocryst als 100 [...] active Not Available Not Available Not Available naloxone 4 mg/actuatio n nasal spray CALL 911. ADMINISTE R A SINGLE SPRAY INTRANASA LLY INTO ONE NOSTRIL UPON SIGNS OF OPIOID OVERDOSE. MAY REPEAT AFTER 3 MINUTES IF NO RESPONSE. active Not Available Not Available No t Available Gvoke HypoPen 1-Pack 1 mg/0.2 mL subcutaneou s auto-inject or active Not Available Not Available Not Available Paxlovid 300 mg (150 mg x 2)-100 mg tablets in a dose pack TAKE DIRECTED PER INSTRUCTI ONS ON BOX active Not Available Not Available No t Available Vitals Date Recorded Body height Body mass index (BMI) Body weight Systolic blood pressure Diastolic blood pressure Provider Name and Address Organization Details Last Updated DateTime 04/25/2024 160.02 cm 33.5 kg/m2 19371.96 g 150 mm[Hg] 82 mm[Hg] [facility] 5 11:18:23 Date Recorded Body weight Body mass index (BMI) Body height Systolic blood pressure Diastolic blood pressure Provider Name and Address Organization Details Last Updated DateTime 12/18/2023 75338.14 g 33.8 kg/m2 160.02 cm 143 mm[Hg] 84 mm[Hg] [facility] 4 17:48:08 Date Recorded Body height Body mass index (BMI) Body weight Systolic blood pressure Diastolic blood pressure Provider Name and Address Organization Details Last Updated DateTime 01/18/2024 160.02 cm 33.5 kg/m2 80040.96 g 149 mm[Hg] 88 mm[Hg] [facility] 4 10:33:47 Social History Question Answer Notes LastModified by Organizat ion Details LastModified Time Do You Have An Advance Directive? No [email or web address] Information n ot available 12/18/2023 Are You Blind Or Do You Have Difficulty Seeing? No [email or web address] Information not available 12/18/2023 What Is Your Level Of Caffeine Consumption? None [email or web address] Information not available 12/18/2023 In The 14 Days Before Symptom Onset, Have You Had Close Contact With A Laboratory-confirme d COVID-19 While That Case Was Ill? No [email or web address] Information n ot available 12/18/2023 In The 14 Days Before Symptom Onset, Have You Had Close Contact With A Person Who Is Under Investigation For COVID-19 While That Person Was Ill? No [email or web address] Information not available 12/18/2023 Have You Been To An Area Known To Be High Risk For COVID-19? No Information not available 12/18/2023 Are You Deaf Or Do You Have Serious Difficulty Hearing? No [email or web address] Information not available 12/18/2023 What Type Of Diet Are You Following? REGULAR [email or web address] Information n ot available 12/18/2023 What Is The Highest Grade Or Level Of School You Have Completed Or The Highest Degree You Have Received? [id number] [email or web address] Information not available 12/18/2023 Are There Any Guns Present In Your Home? No [email or web address] Information not available 12/18/2023 Do You Use Protection During Sex? No [email or web address] Information not available 12/18/2023 Do You Use Your Seat Belt Or Car Seat Routinely? Yes [email or web address] Information not available 12/18/2023 Do You Have Smoke And Carbon Monoxide Detectors In Your Home? Yes Information not available 12/18/2023 How Much Tobacco Do You Smoke? No [email or web address] Information not available 12/18/2023 Do You Use Sunscreen Routinely? Yes [email or web address] Information not available 12/18/2023 Have You Used IV Drugs? No [email or web address] Information not available 12/18/2023 Sex: Unknown Functional Status Question Answer Note LastModified by Organizat ion Details LastModified Time Do you use any illicit or recreational drugs? No [email or web address] Information not available 12/18/2023 What is your level of alcohol consumption? None [email or web address] Information not available 12/18/2023 Are you able to walk? YESWOREST [email or web address] Information not available 12/18/2023 What is your occupation? Disabled [email or web address] Information not available 12/18/2023 What is your exercise level? Occasional Information not available 04/25/2024 Mental Status Question Answer Note LastModified by Organization D etails LastModified Time Do you feel stressed (tense, restless, nervous, or anxious, or unable to sleep at night)? [id number] [email or web address] Information not available 12/18/2023 Family History Relationship Description Onset Age of this Age Resolved Age Notes LastModified by Organization Details LastModified Time Mother Disorder of lung 73 73 Not available 2023 17:38:09 Mother Malignant neoplasm of lung 73 73 [email or web address] Not available 2023 17:38:09 Mother Disorder of lung Not available 2023 10:30:05 Mother Malignant neoplasm of lung [email or web address] Not available 2023 10:30:05 Son Depressive disorder 25 [email or web address] Not available 2024 10:40:50 Son Depressive disorder [email or web address] Not available 2023 10:30:05 Daughter Asthma 14 [email or web address] Not available 04/25/2024 10:40:50 Daughter Anxiety disorder 15 [email or web address] Not available 2024 10:40:50 Daughter Depressive disorder 15 Not available 2024 10:40:50 Daughter Substance abuse 16 [email or web address] Not available 2024 10:40:50 Daughter Mental disorder 16 [email or web address] Not available 2024 10:40:50 Daughter Pre-eclampsi a 28 [email or web address] Not available 2024 10:40:50 Daughter Asthma [email or web address] Not availabl e 01/18/2024 10:30:05 Daughter Anxiety disorder [email or web address] Not available 2023 10:30:05 Daughter Depressive disorder [email or web address] Not available 2023 10:30:05 Daughter Pre-eclampsi a [email or web address] Not available 2023 10:30:05 Daughter Substance abuse [email or web address] Not available 2023 10:30:05 Daughter Mental disorder [email or web address] Not available 2023 10:30:05 Sister Anemia 23 [email or web address] Not available 0 04/25/2024 10:40:50 Sister Osteoporosis 45 [email or web address] Not avail able 04/25/2024 10:40:50 Sister Diabetes mellitus 45 [email or web address] Not available 2024 10:40:50 Sister Anemia Not available 01/18/2024 10:30:05 Sister Osteoporosis [email or web address] Not avai lable 01/18/2024 10:30:05 Sister Diabetes mellitus [email or web address] Not available 2023 10:30:05 Father Heart disease 59 67 [email or web address] Not available 2023 17:38:10 Father Disorder of lung 67 67 [email or web address] Not available 2023 17:38:10 Father Disorder of lung [email or web address] Not available 2023 10:30:05 Father Heart disease [email or web address] Not available 2023 10:30:05 Medical History No [...] SNOMED-CT Code Diagnosis ICD10 Code Diagnosis Note [id number] KELVIN NEWELL MD [place] [address] [address] 12/18/2023 17:22:32 12/19/2023 03:57:08 Genital herpes simplex [id number] A60.9 - new exposure per patient- s/p [...] at this time Lichen sim plex chronicus [id number] L28.0 - patient reports thickening of vulvar skin for years, itch-scrat ch cycle- will start clobetasol ointment; rtc 1 month for evaluation [id number] KELVIN NEWELL MD [place] [address] [address] 01/18/2024 10:05:21 01/18/2024 16:50:31 Lack or loss of sexual desire [id number] F52.0 - patient reports long standing superficia l dyspareuni a (previousl y improved with vaginal estrogen cream) and low libido- will restart vaginal estrogen- discussed testostero ne supplement ation for HSDD Lichen sim plex chronicus [id number] L28.0 - patient reports thickening of vulvar skin for years, itch-scrat ch cycle- clobetasol PRN; symptoms now improved [id number] KELVIN NEWELL MD [place] [address] [address] 04/25/2024 10:40:34 04/25/2024 12:13:32 Reduced libido [id number] R68.82 Lack or lo ss of sexual desire [id number] F52.0 - patient reports long standing superficia l dyspareuni a (previousl y improved with vaginal estrogen cream) and low libido- low free/total testostero ne on labs 01/2024; repeat today- continue testostero ne supplement ation for HSDD Gynecologi c examination [id number] Z01.419 [facility] woman [facility]- Cervical cancer screening: Pap smear obtained today, will follow up on the results with the patient as they become available; if normal, does not need further pap smear testing- Breast cancer screening: mammogram scheduled- Colon cancer screening: does not qualify- HPV immunizati on: does not qualify- STD testing: ordered- hereditary cancer screening: does not qualify for testing Health Concerns Section Related Observation LastModified by Organization Detai ls LastModified Time None Recorded Concern Status LastModified by Organization Details LastModified Time None Recorded Advance Directives Directive N: Payers Encounter Date Sequence Insurance Name Policy Number Policy Heller Covered Member ID Heller Member ID Guarantor Name 12/18/2023 4 [place] Tk Ruiz [id number] Tiffanie Ruiz 12/18/2023 1 [place] Tiffanie Ruiz [id number] Tiffanie Ruiz 01/18/2024 2 [place] [id number] Tk Ruiz [id number] Tiffanie Ruiz 01/18/2024 1 [place] Tiffanie Ruiz [id number] Tiffanie Ruiz 04/25/2024 2 [place] [id number] Tk Ruiz [id number] Tiffanie Ruiz 04/25/2024 [facility] Tiffanie Ruiz [id number] Tiffanie Ruiz Notes Date Note Type [...] it. KELVIN NEWELL MD [address], [place], [address], [facility] 12/18/2023 22:44:55 01/18/2024 text/html Patient [...] libido. KELVIN NEWELL MD [address], [place], [address], [facility] 01/18/2024 16:24:14 04/25/2024 text/html Presents today f or her annual well-woman exam.Denies abnormal vaginal discharge. She is sexually active and denies dyspareunia. She has not noticed any changes or masses in her breasts. Up to date on mammograms, next scheduled 04/2024. Menopausal, no PMB. No hx of abnormal pap smears. Was previously seen for low libido. Has been using testosterone cream since January and reports some improvement in her symptoms. Total T at that time was <10, free 0.3. 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 She restarted valtrex and gabapentin and symptoms have improved. She does report abnormal vaginal discharge and odor. Would like tested for vaginitis today. KELVIN NEWELL MD [address], [place], [address], [facility] 04/25/2024 12:01:39 OBGyn Episode Ob Episode Information Episode Created Date Number of Fetuses Patient Bloodtype Patient rh Status Prepregnancy Weight lbs Domestic Partner Domestic Partner Phone Father Name Correspondence Renew Clerk Status 12/18/19 24 1 CLOSED Fetus Data First Name Last Name Admitted to NICU Weight (g) Sex Living Outcome Pediatric Complications Fetus ID Race Codes Race Delivery Type F Full Term [id number] Vaginal Delivery Frederick Calculation Initial Frederick Date [...] Domestic Partner Domestic Partner Phone Father Name Correspondence Renew Clerk Status 12/18/19 24 1 CLOSED Fetus Data First Name Last Name Admitted to NICU Weight (g) Sex Living Outcome Pediatric Complications Fetus ID Race Codes Race Delivery Type M Full Term [id number] Vaginal Delivery Frederick Calculation Initial Frederick Date [...]
--- OUTSIDE RECORDS SUMMARY | 2024-07-08 15:59 | XMS_ITS | Clinical Summary ---
Author Organization [facility] Address [address] [place] [address] Care Team Providers Care Red Leader Name Role Phone Jona Bravo MD Primary Care Provider [phone] Source Comments [facility],non-owned Affiliates and Associated Physician Practices is amultiple site organization consisting of ambulatory clinics and hospital sitesin [place], [place], [place] and [place]. This disclosure is being madepursuant to the Care Everywhere program and may not contain all information available regarding this patient. Last updated 17.[facility] Allergies Active Allergy Reactions Criticality Noted Date Comments Adhesive Sensitivity Other Codeine Urticaria 05/30/2010 Codeine Urticaria High 06/16/2009 pruritus Meperidine Urticaria 05/30/2010 Doxycycline Other 05/15/2017 Chest pain Duloxetine Other Low 01/10/2019 depn depn depn Gabapentin Other 12/08/2015 Hair fell out Levofloxacin Other 06/24/2010 Tendons hurt Pt takes ciprofloxacin without problems Pregabalin Swelling 12/08/2015 Prochlorperazine Other Low Reaction: OTHER, Reaction: OTHER, Suvorexant GI Discomfort 06/29/2016 Medications * Be aware that medications may not be up to date on this document. Alwaysverify current medications with the patient. Tizanidine HCl 4 MG CAPS Take 4 mcg by mouth at bedtime Active levothyroxine (SYNTHROID) 88 MCG tablet Take 1 (one) tablet by mouth daily before breakfast Active ALBUTEROL SULFATE IN Inhale by mouth once daily as needed Active pravastatin (PRAVACHOL) 80 MG tablet 8 Active HYDROcodone-ac etaminophen (NORCO) 10-325 MG tablet Take 1 (one) tablet by mouth every 6 hours as needed for Pain Active vitamin E (TOCOPHERYL) 100 UNIT capsule Take 100 Int'l Units/L by mouth once daily Active Biotin 76836 MCG TBDP Take 1 tablet by mouth once daily Active aspirin EC (ECOTRIN) 81 MG tablet Take 1 (one) tablet by mouth every 7 days Active eszopiclone (LUNESTA) 3 MG tablet Take 1 (one) tablet by mouth nightly as needed for Insomnia Active Copper Gluconate (COPPER CAPS PO) Take 3 mg by mouth once daily Active Zinc 30 MG Take 30 mg by mouth once daily Active Vitamin K 100 MCG TABS Take 1 (one) tablet by mouth once Active nystatin (NYSTOP) 681666 UNIT/GM powder APPLY POWDER TOPICALLY TO AFFECTED AREA TWICE DAILY 60 g 1 2 Active VITAMIN D PO Take 5,000 Int'l Units/L by mouth once daily Active amLODIPine (Norvasc) 5 MG tablet Take 1 (one) tablet by mouth once daily Active potassium citrate (Urocit K 10) 10 MEQ (1080 MG) tablet Take 1 (one) tablet by mouth 3 times daily Active oxyBUTYnin CR 24hr (Ditropan-XL) 10 MG tablet Take 1 (one) tablet by mouth once daily 4 Active losartan (Cozaar) 25 MG tablet Take 1 (one) tablet by mouth once daily 4 Active Cymbalta 60 MG capsule 1 (one) capsule 4 Active cyanocobalamin (Vitamin B-12) injection INJECT 1 ML SUBCUTANEOUSLY ONCE A WEEK Active ALPRAZolam (Xanax) 0.5 MG tablet TAKE 1 TABLET BY MOUTH AT BEDTIME FOR 30 DAYS 4 Active buPROPion XL 24hr (Wellbutrin-XL ) 300 MG tablet Take 1 (one) tablet by mouth once daily 4 Active busPIRone (Buspar) 15 MG tablet Take 1 (one) tablet by mouth 2 times daily 4 Active vitamin D3 (Cholecalcifer ol) 125 MCG (5000 UT) capsule Take 1 (one) capsule by mouth once daily 4 Active cyclobenzaprin e (Flexeril) 5 MG tablet Take 1 (one) tablet by mouth at bedtime 4 Active denosumab (Prolia) 60 MG/ML SC injection Inject 1 mL subcutaneously Every 180 days Active estradiol (Estrace) 0.1 MG/GM vaginal cream INSERT 1 GRAM VAGINALLY 3 TIMES A WEEK FOR 30 DAYS 4 Active ketorolac (Toradol) 10 MG tablet TAKE 1 TABLET BY MOUTH EVERY 6 HOURS FOR 5 DAYS 4 Active pregabalin (Lyrica) 100 MG capsule Take 1 (one) capsule by mouth 2 times daily 4 Active spironolactone (Aldactone) 25 MG tablet Take 1 (one) tablet by mouth once daily 4 Active tamsulosin (Flomax) 0.4 MG capsule Take 1 (one) capsule by mouth once daily 5 Active temazepam (Restoril) 15 MG capsule Take 1 (one) capsule by mouth 5 Active traMADol (Ultram) 50 MG tablet Take 1 (one) tablet by mouth every 6 hours as needed pain 5 Active valACYclovir (Valtrex) 1 GM tablet Take 1 (one) tablet by mouth once daily Active Zinc 30 MG Take 30 mg by mouth at bedtime Active Active Problems Problem Noted Date Diagnosed Date Melanoma 05/14/2023 Overview (04/10/2024): Stage 0, right forearm 2023 Hyperparathyroidism 02/02/2022 06/15/2022 Kidney stones 04/03/2019 Overview (04/10/2024): Onset 2015 Frequent lithotripsy, stone extractions, again July 2020, 2022, 2023 S/P gastric bypass 06/19/2018 Overview (06/30/2018): 06/19/18 Laparoscopic Judy-en-Y Gastric Bypass Shingles 03/21/2018 Overview (03/21/2018): Recurrent outbreaks related to stress. Chronic constipation 03/21/2018 Type 2 diabetes mellitus 06/06/2017 Gastroparesis 06/06/2017 GERD (gastroesophageal reflux disease) 8 Hypertension 06/06/2017 Metabolic dysfunction-associated steatohepatitis (MASH) 06/06/2017 Overview (04/10/2024): Overview: 05/16/01 liver biopsy: [place] with no [...] 06/15/22 Fibroscan CAP 233, LSM 6.9 kPa 04/10/24 Fibroscan CAP 242, 215; LSM 5.2, 4.8 kPa Obesity 06/06/2017 Overview (04/03/2019): Overview: 01/15/08: Lap banding by Dr. Claros at [facility] Had a port leak with subsequent revision. [...] Complication of gastric band procedure 12/24/2017 06/30/2018 Encounters Date Type Department Care Team Description 04/16/2024 Travel 04/10/2024 8:30 AM REAL ESTATE MANAGEMENT SPECIALIST Office Visit [facility] [address] [place] [address] Soham Haley MD Metabolic dysfunction-associated steatohepatitis (MASH) (Primary Dx) from Last 3 Months Immunizations Immunization Administration Dates Next Due Covfaviola Martineza primary monova lent 12+ yr 0.5mL 10/13/2021 [...] = 0.6 oz pur e alcohol) Comments No Sex and Gender Information Value Date Recorded Sex Assigned at Female 04/25/2020 11:44 PM CDT Legal Sex Female 6:58 AM REAL ESTATE MANAGEMENT SPECIALIST Gender Identity Female 04/25/2020 11:44 PM CDT Sexual Orientation Straight 04/25/2020 11 :44 PM CDT Last Filed Vital Signs Vital Sign Reading Time Taken Comments Blood Pressure 141/71 04/10/2024 9:56 AM REAL ESTATE MANAGEMENT SPECIALIST Pulse 65 04/10/2024 9:56 AM REAL ESTATE MANAGEMENT SPECIALIST Temperature 36.3 C (97.3 F) 04/10/2024 9:56 AM REAL ESTATE MANAGEMENT SPECIALIST Respiratory Rate 18 04/10/2024 9:56 AM REAL ESTATE MANAGEMENT SPECIALIST Oxygen Saturation 98% 06/21/2023 12:44 PM CDT Inhaled Oxygen Concentration - - Weight 84.8 kg (187 lb) 04/10/2024 9:56 AM REAL ESTATE MANAGEMENT SPECIALIST Height 161.3 cm (5' 3.5) 04/10/2024 9:56 AM REAL ESTATE MANAGEMENT SPECIALIST Body Mass Index 32.61 04/10/2024 9:56 AM REAL ESTATE MANAGEMENT SPECIALIST Plan of Treatment Upcoming Encounters Date Type Department Care Team (Late st Contact Info) Description 04/13/2025 10:00 AM CDT Procedure visit [facility] [address] [place] [address] 04/13/2025 10:30 AM CDT Office Visit [facility] - GI [address] [place] [address] Soham Hutton MD [address] [address] Health Maintenance Due Date Last Done Comments COLOGUARD (AGES 45-75) - COLON CA SCREENING 1960 CT COLONOGRAPHY - COLON CA SCREENING 1960 FIT - COLON CA SCREENING 1960 FLEX SIG - COLON CA SCREENING 1960 MEDICARE AWV 12 MONTHS 1959 PAP SMEAR 1959 HIV SCREENING 1974 HEPATITIS C SCREENING 01/30/1977 DTAP/TDAP/TD VACCINES (1 - Tdap) 1978 ZOSTER VACCINE (1 of 2) 2009 PNEUMOCOCCAL VACCINE 50+ (2 of 2 - PPSV23) 11/11/2014 09/16/2014 DIABETES RETINOPATHY SCREENING 03/21/2018 DIABETES-FOOT EXAM WITH MONOFILAMENT 03/21/2018 Respiratory Syncytial Virus (RSV) Vaccine Pt: or over 60 yrs (1 - Risk 60-74 years 1-dose series) 2019 COVID-19 VACCINE ( season) 2023 01/08/2023, 10/13/2021, 12/12/2020, Additional history exists DEPRESSION SCREENING 02/06/2024 DIABETES - URINE PROTEIN SCREENING 02/06/2024 DIABETES-HGB A1C 06/22/2024 12/24/2023, 06/2021, 02/03/2019, Additional history exists MAMMOGRAM 09/08/2024 09/08/2022, 08/0 05/2022, 07/08/2021, Additional history exists INFLUENZA VACCINE (Season Ended) 2024 11/22/2020, 11/14/2019, 10/19/2019, Additional history exists DIABETES-SERUM CREATININE 01/17/20252023, 06/05/2022, 10/10/2021, Additional history exists COLON MONITORING 08/03/2025 08/03/2020, [...] complete this topic MENINGOCOCCAL (Group B) VACCINE SHARED DECISION-MAKING Aged Out No longer eligible based on patient's age to complete this topic MENINGOCOCCAL GROUPS A/C/Y/W VACCINE Aged Out No longer eligible based on patient's age to complete this topic Procedures Procedure Name Priority Date/Time Associated Diagnosis Comments COMPREHENSIVE METABOLIC PANEL 06/05/2022 10:49 AM CDT ENDOSCOPY, COLON, SCREENING Routine 08/03/2020 9:10 AM CDT HEMOGLOBIN A1C Routine 07/23/2008 11:32 AM CDT Morbid Obesity from Last 3 Months or Most Recently Relevant to Health Maintenance Results * COMPREHENSIVE METABOLIC PANEL (06/05/2022 10:49 AM CDT) Pathologist [facility] Glucose 86 65 - 99 mg/dL [facility] Comment: Fasting reference interval BUN 20 7 - [...] 29 U/L [facility] Comment: Test Performed at: [facility] [address] [place] [address] ARACELY DANIEL MD 06/05/2022 10:4 9 AM CDT 06/05/2022 10:50 AM CDT us Ivette Monteiro STRAIGHT CUTTER MACHINE-JUVENILE COUNSELOR LAB - CHEMISTRY O RDERABLES Final Result [facility] [address] [place] [address] * ENDOSCOPY, COLON, SCREENING (08/03/2020 9:10 AM CDT) Report Endoscopy POC Endoscopy Department Report _ Patient Name: Tiffanie Gresham Procedure Date: 08/03/2020 9:10 AM Date of : 1960 Classification: Outpatient Gender: Female Ethnicity: Not or Race: White _ Providers: Soham Farley MD Referring MD: Jona Bravo (Referring MD) Procedure: Colonoscopy Indications: Surveillance: Personal history of adenomatous polyps on last colonoscopy > 5 years ago Medications: Monitored Anesthesia Care Description of Procedure: Pre-Anesthesia Assessment: - Prior to the procedure, a History and Physical was performed, and patient medications and allergies were reviewed. The patient's tolerance of previous anesthesia was also reviewed. The risks and benefits of the procedure and the sedation options and risks were discussed with the patient. All questions were answered, and informed consent was obtained. Prior Anticoagulants: The patient has taken no previous anticoagulant or antiplatelet agents. ASA Grade Assessment: III - A patient with severe systemic disease. After reviewing the risks and benefits, the patient was deemed in satisfactory condition to undergo the procedure. - Prior Aspirin/ NSAID therapy: The patient has taken no previous aspirin or NSAID medications. After I obtained informed consent, the scope was passed under direct vision. Throughout the procedure, the patient's blood pressure, pulse, and oxygen saturations were monitored continuously. The PCF-[id number] was introduced through the anus and advanced to the cecum, identified by the appendiceal orifice. The colonoscopy was technically difficult and complex due to a redundant colon. Successful completion of the procedure was aided by using manual pressure. The patient tolerated the procedure well. The quality of the bowel preparation was adequate. The appendiceal orifice was photographed. Findings: The perianal and digital rectal examinations were normal. A few medium-mouthed diverticula were found in the sigmoid colon. A 3 mm polyp was found in the hepatic flexure. The polyp was sessile. The polyp was removed with a jumbo cold forceps. Resection and retrieval were complete. Verification of patient identification for the specimen was done by the nurse using the patient's name and date. Estimated blood loss was minimal. The exam was otherwise without abnormality on direct and retroflexion views. Estimated Blood Loss: Estimated blood loss: none. Complications: No immediate complications. Impression: - Diverticulosis in the sigmoid colon. - One 3 mm polyp at the hepatic flexure, removed with a jumbo cold forceps. Resected and retrieved. - The examination was otherwise normal on direct and retroflexion views. Recommendation: - Discharge patient to home (with spouse). - Patient has a contact number available for emergencies. The signs and symptoms of potential delayed complications were discussed with the patient. Return to normal activities tomorrow. Written discharge instructions were provided to the patient. - Resume previous diet. - Continue present medications. - Await pathology results. - Repeat colonoscopy in 7 years for surveillance. - Return to my office as previously scheduled. Attending Participation: I personally performed the entire procedure. Procedure Code(s): --- Professional --- 94119, Colonoscopy, flexible; with biopsy, single or multiple Diagnosis Code(s): --- Professional --- Z86.010, Personal history of colonic polyps K63.5, Polyp of colon K57.30, Diverticulosis of large intestine without perforation or abscess without bleeding CPT copyright 2019 [employer]. All rights reserved. The codes documented in this report are preliminary and upon front end developer designer review may be revised to meet current compliance requirements. Soham Farley MD 08/03/2020 10:38:53 AM This report has been signed electronically. Note Initiated On: 08/03/2020 9:10 AM Number of Addenda: [address] [facility] 08/03/2020 9:10 AM CDT us Soham Hutton MD GI PROCEDURE ORDER RYAN Edited Result - Final Performing Organization Address City/[facility] Co de Phone Number [facility] * HEMOGLOBIN A1C (07/23/2008 11:32 AM CDT) Hemoglobin A1c 5.7 3.9 - 6.1 % [facility] Estimated Average Glucose 116.9 mg/dl [facility] BLOOD SPECIMEN / Unknown 07/23/2008 11:32 AM CDT Narrative [facility] - 07/23/2008 9:23 PM CDT [phone] Resulting Agency Comment Performed By [facility] - [facility] [address] [place] [address] us Scott Claros MD LAB - CHEMISTRY ORDERABLE S Final Result Performing Organization Address City/[facility] Co de Phone Number [facility] [address] [place] [address] from Last 3 Months or Most Recently Relevant to Health Maintenance Insurance SELF PAY NO INSURANCE Member Subscriber Plan / Payer (Ef fective for All Dates) Name:Tiffanie Gresham Member ID:Not on file Relation to Subscriber:Self Name:TIFFANIE GRESHAM Subscriber ID:Not on file Payer ID:Not on file Group ID:Not on file Type:Self Pay Address: [place], [place] MEDICARE [facility] MED[facility] Advance Directives * Full Code (Latest Code Status on File) Date Activated Date Inactivated Comments 06/19/2018 5:17 PM 06/20/2018 8:12 PM * Full Code Date Activated Date Inactivated Comments 12/24/2017 11:20 AM 12/25/2017 12:40 PM Care Teams Red Leader Relationship Specialty Start Date End Date Jona Bravo MD [address] [place] [address] [phone] PCP - General Internal Medicine 10/16/22
--- OUTSIDE RECORDS SUMMARY | 2024-07-08 15:59 | XMS_ITS ---
Author Organization [facility] justice Address [address] [facility] [address] [place] [address] Care Team Providers Care Optician Name Role Phone Shelly HALE, Jona Primary Care Provider Unavaila Mary Trent Unavailable [phone] REASON FOR VISIT yd,f/u,cc Encounters Encounter Location Date Provider Diagnosis [facility] [address] [facility] [address] [place] [address] 02/14/2023 Mayr Saul Plan Of Treatment No Information Progress Notes * Tiffanie RUIZ ADOB: (64 yo F)Acc No.[id number]:02/14/2023 Progress Notes Patient: Tiffanie DAN Appointment Provider: Fior SAUL MD :1960 A ge:63 Y S ex:Female Date:02/14/2023 [facility] Pcp:Jona Bravo MD Subjective: * Chief Complaints: * 1 . Yd,f/u,cc. * Medical History: Objective: * Vitals: Assessment: Plan: * Treatment: * Billing Information: * Visit Code: * Procedure Codes: * Electronic signature of Mary Saul MD on 07/08/2024 at 03:59 PM CDT Sign off status: Pending * Appointment Provider: Fior SAUL MD Date: 0 02/14/2023 Generated for Printi ng/Faxing/eTransmitting on: 0 07/08/2024 03:59 PM CDT
--- OUTSIDE RECORDS SUMMARY | 2024-07-08 15:59 | XMS_ITS | Clinical Summary ---
Author Organization [facility] Address [address] [place] [address] Phone Care Team Providers Care Mine Production Engineer Name Role Phone Jona Bravo MD Primary Care Provider [phone] Active Problems Problem Noted Date Diagnosed Date [...] Health Maintenance Due Date Last Done Comments Hepatitis C Virus (HCV) Screening 1960 TdaP Immunization 1960 Colonoscopy 02/05/2004 Colorectal Cancer Screening 02/05/2004 Cologuard 2009 Immunochemical Fecal Occult Blood 2009 Pneumococcal Immunization (50+ years) (1 of 1 - PCV) 2009 Zoster Immunization (1 of 2) 2009 SARS-COV-2 Immunization ( - 2023- season) 2023 11/19/2020, 04/29/2020, 04/08/2020 Influenza Immunization (Season Ended) 2024 12/20/2015, 11/04/2014, 10/23/2013, Additional history exists Respiratory Syncytial Virus (RSV) Immunization (Adult) (1 - 1-dose 75+ series) 2034 Hepatitis B Immunization Aged Out No longer eligible based on patient's age to complete this topic Human Papillomavirus (HPV) Immunization Aged Out No longer eligible based on patient's age to complete this topic Meningococcal Immunization (ACWY) Aged Out No longer eligible based on patient's age to complete this topic Rotavirus Immunization Aged Out No lo nger eligible based on patient's age to complete this topic Care Teams Mine Production Engineer Relationship Specialty Start Date End Date Jona Bravo MD [address] [place] [id number] PCP - General 05/04/17
--- OUTSIDE RECORDS SUMMARY | 2024-07-08 15:59 | XMS_ITS | Encounter Summary ---
Author Organization [facility] Address [address] [place] [address] Care Team Providers Care Yoke Presser Name Role Phone Jona Bravo MD Primary Care Provider [phone] Reason for Visit * Reason Comments Question Encounter Details Date Type Department Care Team ([facility] st Contact Info) Description 03/23/2023 Telephone [facility] [address] [place] [address] Jona Barvo MD [address] [facility] [address] [place] [address] Question Social History Tobacco Use [...] often do you attend chur ch or rastafarian services? 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 Topic: Patient or Caregiver Communication Request >> Mar 23, 2023 12:21 PM David Monte wrote: Patient or Caregiver calling to update PCP team on status after a recent visit Caller: Eda Patient/Caregiver Callback Number: [phone] Call Notes: Message: Eda is calling to check the status of fax requesting brace for lower back and knees of patient. Informed Eda that we put the request on Dr. Bravo's desk. She wanted io inform they need the request back within 3-5 days. Please Advise O CASHIER documented in this encounter Plan of Treatment Upcoming Encounters Date Type Department Care Team (Late st Contact Info) Description 07/11/2024 9:00 AM CDT Appointment [facility] [address] [place] [phone] [place] [address] [address] [facility] [address] [place] [address] 07/29/2024 8:30 AM CDT Office Visit [facility] [address] [facility] [address] [place] [address] [place] [address] [address] [facility] [address] [place] [address] 08/25/2024 10:40 AM CDT Office Visit [facility] Primary Care [facility] [address] [facility] [address] [place] [address] Jona Bravo MD [address] [facility] [address] [place] [address] documented as of this encounter Visit Diagnoses Not on filedocumented in this encounter Care Teams Yoke Presser Relationship Specialty Start Date End Date Jona Bravo MD PCP - General Internal Medicine 11/25/15 documented as of this encounter
== END 2024-07-08 15:52 | disposition home or self-care (01) ==
PROVIDERS: PCP Internal Medicine; Visit Provider Urology
DX: N20.0 Calculus of kidney (principal)
CPT/HCPCS: 74018

== ENCOUNTER 2024-07-17 10:25 | Emergency (ER) | payer MEDICARE, BC, SELFPAY ==
--- NOTE | 2024-07-17 10:26 | ED.URI ---
HPI - URI/Sore Throat General Chief Complaint: Upper Respiratory Infection Stated Complaint: Cough/Chest Congestion/Sore Throat Time Seen by Provider: 07/17/24 10:26 Source: patient Mode of arrival: ambulatory Limitations: no limitations History of Present Illness HPI Narrative: Tiffanie is a 64-year-old female patient presenting to the clinic today with complaints of cough, nasal congestion, chest congestion, and sore throat x5 days. She reports she recently got back from vacation. States her has similar symptoms but he has lost his taste. He did 2 at home COVID test and they were negative. She has not tested herself for COVID. Denies any chest pain or shortness of breath. Does have some chest discomfort with coughing. Cough is productive at times with clear phlegm. Related Data Home Medications ?Medication ?Instructions ?Recorded ?Confirmed ?Last Taken ?Type aspirin 81 mg capsule 81 mg PO WEEKLY 05/03/22 03/07/24 02/29/24 History bupropion HCl 300 mg 24 hr tablet, 300 mg PO QAM 05/03/22 03/07/24 03/07/24 History extended release (Wellbutrin XL) levothyroxine 88 mcg tablet 88 mcg PO DAILY 05/03/22 03/07/24 03/07/24 History rtlasklb-avviuviq-iggb 45 mg-folic 1 cap PO DAILY 05/03/22 03/06/24 Unknown History acid 800 mcg-vit K 120 mcg capsule (Bariatric Multivitamins) pravastatin 80 mg tablet 80 mg PO .PM 05/03/22 03/07/24 03/06/24 History amlodipine 2.5 mg tablet 2.5 mg PO DAILY 10/17/23 03/07/24 03/06/24 History cyanocobalamin (vitamin B-12) 1,000 mcg subcut .Sunday10/17/23 03/07/24 03/02/24 History 1,000 mcg/mL injection solution alprazolam 0.5 mg tablet 0.5 mg PO QHS 02/10/24 03/07/24 03/06/24 History buspirone 15 mg tablet 15 mg PO BID 02/10/24 03/07/24 03/06/24 History clobetasol 0.05 % topical ointment 1 g topical DAILY 02/10/24 03/06/24 Unknown History duloxetine 60 mg capsule,delayed 60 mg PO DAILY 02/10/24 03/07/24 03/07/24 History release losartan 100 mg tablet 50 mg PO BID 02/10/24 03/07/24 03/06/24 History spironolactone 25 mg tablet 25 mg PO DAILY 02/10/24 03/07/24 03/06/24 History temazepam 15 mg capsule 15 mg PO QHS PRN sleep 02/10/24 03/06/24 Unknown History tizanidine 4 mg tablet 4 mg PO Q8H PRN muscle spasticity 02/10/24 03/06/24 Unknown History glucagon 1 mg/0.2 mL subcutaneous mg subcut 07/17/24 Unknown History auto-injector (Gvoke HypoPen 1-Pack) naloxone 4 mg/actuation nasal spray intranasal 07/17/24 Unknown History potassium citrate 10 mEq (1,080 meq PO 07/17/24 Unknown History mg) tablet,extended release Allergies Allergy/AdvReac Type Severity Reaction Status Date / Time meperidine (From Demerol) Allergy Severe Hives Verified 07/17/24 10:42 levofloxacin (From Levaquin) AdvReac Intermediate INFLAMED Verified 07/17/24 10:42 TENDONS adhesive tape AdvReac Blister Verified 07/17/24 10:42 codeine AdvReac Hives Verified 07/17/24 10:42 Review of Systems Review of Systems: Pertinent positives per HPI. Patient denies any fever, chills, rash, headache, visual changes, dizziness, shortness of breath, chest pain, palpitations, nausea, vomiting, diarrhea, constipation, abdominal pain, or any urinary issues. [facility] Past Medical History Medical History Melanoma Chronic, continuous use of opioids [place] (nonalcoholic steatohepatitis) MEREDITH (obstructive sleep apnea) Kidney stones Hypothyroid Anxiety Fibromyalgia CVA (cerebral vascular accident) Asthma Hyperlipidemia Chronic pain syndrome Chronic lung disease Surgical History Surgical History Gastric bypass status for obesity H/O cataract removal with insertion of prosthetic lens Hx of appendectomy H/O: hysterectomy H/O thyroidectomy Hx of cervical spine surgery H/O lithotripsy Family History Family History Sibling Family history of rheumatoid arthritis Mother Family history of lung cancer Social History Social History Smoking status: Never smoker Second hand tobacco smoke exposure: No Alcohol intake: never Substance use: never Substance use type: does not use Other substance usage details: THC gummies for sleep. Do You Feel Safe in your Home?: Yes Lack of Transportation: No Lack of Food: Never True Current Housing: I Have Housing Concerned About Future Housing: No Difficulty Paying Gas/Electric Bills: No Difficulty Paying for Meds: No Currently Unemployed: No Education: Trade/Vocational Certificate Difficulty w/ Childcare or Family Care: No Living arrangements: with family Additional living arrangements comments: Gender identity (if verbalized by the patient): Female Spiritual care concerns: No Comments At the time of my signature, I reviewed and agree with the nursing past medical, surgical, social, and family history. There is no relevant family history pertinent to the patient complaint. Exam Narrative: General: Well-developed, well nourished, in no apparent distress Head: Normocephalic, atraumatic Eyes: Pupils equally round and reactive to light bilaterally, EOM intact, sclera and conjunctive clear, no discharge, lids normal Ears: TMs intact and clear, ear canals clear, no drainage, grossly hearing normal. Nose: Nares patent, clear nasal discharge, mild inflammation, no sinus tenderness. Mouth: Oral pharynx red without lesions or masses, good dentition, MMM. PND Neck: Supple, trachea midline, no enlargement of anterior or posterior cervical nodes, no thyroid masses or goiter palpable. Cardio: Regular rate and rhythm, s1 and s2 normal, no murmur appreciated. Resp: Clear to auscultation bilaterally, no rhonchi, rales, wheezing or rubs Course Course Emergency Course: Portions of this record may have been created with voice recognition software. Level of Care: Express Care Visit Vital Signs Vital signs: Vital signs reviewed MDM - URI/Sore Throat MDM Narrative Medical decision making narrative: At the time of visit patient is resting comfortably on the exam table. Patient appears to be nontoxic. Labs: COVID and strep test was performed and negative in the clinic today. We will send strep for culture. Plan: I suspect patient has URI/pharyngitis. Patient has history of chronic lung disease and states that she feels as though she has bronchitis. No wheezing was heard on exam however I will send in new prescription for albuterol inhaler as hers is and prescribed prednisone for 5 days. Supportive measures were discussed with the patient and they voiced understanding discharge instructions and agrees to treatment plan. Return precautions reviewed Differential Diagnosis Differential diagnosis: Likely upper respiratory infection, otitis media, sinusitis, viral infection, bronchitis, influenza, pharyngitis and other (COVID) Discharge Plan Discharge Clinical Impression: Pharyngitis, Upper respiratory infection with cough and congestion Patient Disposition: Home Condition: Stable Instructions: Antibiotic Form, Pharyngitis (ED), Cold Symptoms (ED) Additional Instructions: Take prescription medications only as prescribed-prednisone and albuterol inhaler Increase fluids and stay well hydrated Tylenol/motrin for pain/fever Flonase and OTC antihistamines as directed Vicks vapor rub to open sinuses Sinus rinses for congestion Cepacol spray, cough drops, throat lozenges, warm tea with honey/lemon, gargle salt water to soothe throat BRAT diet for diarrhea Clear liquids x 24 hours then advance as tolerated for nausea/vomiting Go to the ED if you develop a worsening in your condition- high fever not controlled by Tylenol or Motrin, dehydration, weakness, lethargy, shortness of breath, or chest pain. Follow up with your PCP in 3-5 days if symptoms persist. Patient Language: Albanian Prescriptions: New prednisone 20 mg tablet 40 mg PO DAILY 5 Days Qty: 10 0RF albuterol sulfate 90 mcg/actuation HFA aerosol inhaler 2 puff inhalation Q4-6H PRN (Reason: shortness of breath or wheezing) 30 Days Qty: 8.5 0RF No Action levothyroxine 88 mcg tablet 88 mcg PO DAILY pravastatin 80 mg tablet 80 mg PO .PM bupropion HCl [Wellbutrin XL] 300 mg Tablet Extended Release 24 Hr 300 mg PO QAM Bariatric Multivitamins 45 mg iron- 800 mcg-120 mcg Capsule 1 cap PO DAILY aspirin 81 mg Capsule 81 mg PO WEEKLY Patient Comments: PT TAKES ON Fridays Rx Instructions: Sundays albuterol sulfate 90 mcg/actuation HFA aerosol inhaler 2 puff inhalation QID PRN (Reason: shortness of breath or wheezing) Qty: 8.5 0RF tizanidine 4 mg tablet 4 mg PO Q8H PRN (Reason: muscle spasticity) spironolactone 25 mg tablet 25 mg PO DAILY alprazolam 0.5 mg tablet 0.5 mg PO QHS temazepam 15 mg capsule 15 mg PO QHS PRN (Reason: sleep) clobetasol 0.05 % ointment 1 g TOPICAL DAILY losartan 100 mg tablet 50 mg PO BID buspirone 15 mg tablet 15 mg PO BID duloxetine 60 mg capsule,delayed release(DR/EC) 60 mg PO DAILY potassium citrate 10 mEq (1,080 mg) tablet extended release PO naloxone 4 mg/actuation spray,non-aerosol INTRANASAL Gvoke HypoPen 1-Pack 1 mg/0.2 mL auto-injector SUBCUT tramadol 50 mg tablet 50 mg PO Q6H PRN (Reason: pain) Qty: 20 0RF oxybutynin chloride 5 mg tablet 5 mg PO BID PRN (Reason: bladder spasms) Qty: 30 0RF Rx Instructions: Take as needed for bladder spasms amlodipine 2.5 mg tablet 2.5 mg PO DAILY cyanocobalamin (vitamin B-12) 1,000 mcg/mL solution 1,000 mcg subcut .SUNDAY tamsulosin [Flomax] 0.4 mg capsule 0.4 mg PO DAILY Qty: 10 0RF Follow-up/Referrals: Shelly,Jona Fonseca MD [Primary Care Provider] - Time of Disposition: 10:50 Quality NIHSS Nursing Documentation ED NIHSS nursing documentation: reviewed/agree
[2024-07-17 10:30] VITALS: BP 126/67; PULSE 72; RESP 20; TEMP 36.4; O2SAT 98
[2024-07-17 10:48] LABS: EDSTREPNEGPOS1 Negative (Negative)
[2024-07-17 10:51] LABS: EDCOVIDSCREEN Negative (Negative)
--- OUTSIDE RECORDS SUMMARY | 2024-07-17 11:17 | XMS_ITS ---
Author Organization [facility] justice Address [address] [facility] [address] [place] [address] Care Team Providers Care Underwriting Internship Name Role Phone Shelly HALE, Jona Primary Care Provider Unavaila Mary Trent Unavailable [phone] REASON FOR VISIT 1 year f/u Encounters Encounter Location Date Provider Diagnosis [facility] [address] [facility] [address] [place] [address] 04/02/2024 Mary Saul Plan Of Treatment No Information Progress Notes * JOSEPHTiffanie ADOB: (64 yo F)Acc No.[id number]:04/02/2024 Progress Notes Patient: Tiffanie DAN Appointment Provider: Fior SAUL MD :1960 A ge:64 Y S ex:Female Date:04/02/2024 [facility] [place][note 2[facility] Pcp:Jona Bravo MD Subjective: * Chief Complaints: * 1 . 1 year f/u. * Medical History: Objective: * Vitals: Assessment: Plan: * Treatment: * Billing Information: * Visit Code: * Procedure Codes: * Electronic signature of Mary Saul MD on 07/17/2024 at 11:17 AM CDT Sign off status: Pending * Appointment Provider: Fior SAUL MD Date: 0 04/02/2024 Generated for Printi ng/Faxing/eTransmitting on: 0 07/17/2024 11:17 AM CDT
--- OUTSIDE RECORDS SUMMARY | 2024-07-17 11:17 | XMS_ITS | Encounter Summary ---
Author Organization [facility] Health Address [address] [facility] [place] [address] Care Team Providers Care Printing Table Worker Name Role Phone Jesse Garcia MD Primary Care Provider [phone] Jona Bravo MD Primary Care Provider [phone] Kirill Jean MD Primary Care Provider [phone] Jona Bravo MD Primary Care Provider [phone] Kirill Jean MD Primary Care Provider [phone] Jona Bravo MD Primary Care Provider [phone] Kirill Jean MD Primary Care Provider [phone] Jona Bravo MD Primary Care Provider [phone] Kirill Jean MD Primary Care Provider [phone] Kirill Jean MD Primary Care Provider [phone] Tenisha Tena MD Primary Care Provide r Kirill Jean MD Primary Care Provider [phone] Jona Bravo MD Primary Care Provider [phone] Encounter Details Date Type Department Care Team (Late st Contact Info) Description 08/05/2010 [facility]NAL [facility] DEPT Steph Mar, CANCER PROGRAM DIRECTOR-TEENAGE PROGRAM DIRECTOR [address] [address] Social History Tobacco Use Types Packs/Day Years Used Date Smoking Tobacco: Never Smokeless Tobacco: Never Alcohol Use Standard Drinks/Week Comments No 0 (1 standard drink = 0.6 oz pur e alcohol) Comments Unknown Sex and Gender Information Value Date Recorded Sex Assigned at Female 04/25/2020 11:44 PM CDT 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 Gender Identity Female 04/25/2020 11:44 PM CDT Sexual Orientation Straight 04/25/2020 11 :44 PM CDT documented as of this encounter Plan of Treatment Upcoming Encounters Date Type Department Care Team (Late st Contact Info) Description 04/13/2025 10:00 AM CDT Procedure visit [facility] - [address] [phone] 04/13/2025 10:30 AM CDT Office Visit [facility] - [place] [address] [place] [phone] Soham Hutton MD [address] [place] [address] [place] [address] documented as of this encounter Visit Diagnoses Not on filedocumented in this encounter Care Teams Printing Table Worker Relationship Specialty Start Date End Date Jesse Garcia MD [address] [address] PCP - General 11/04/09 06/30/14 Jona Bravo MD [address] [address] PCP - General Internal Medicine 11/29/15 05/23/17 Kirill Jean MD [address] [place] [phone] PCP - General 05/24/17 12/16/17 Jona Bravo MD [address] [place] [address] PCP - General Internal Medicine 12/17/17 03/19/18 Kirill Jean MD [address] [place] [phone] PCP - General 03/20/18 03/25/18 Jona Bravo MD [address] [place] [address] PCP - General Internal Medicine 03/26/18 05/01/18 Kirill Jean MD [address] [facility] [place] [phone] PCP - General 05/02/18 06/18/18 Jona Bravo MD [address] [place] [address] PCP - General Internal Medicine 06/19/18 07/31/18 Kirill Jean MD [address] [place] [phone] PCP - General 08/01/18 11/19/18 Kirill Jean MD [address] [place] [phone] PCP - General 02/13/19 09/18/19 Tenisha Tena MD [address] [facility] [address] [place] [address] PCP - General Family Medicine 09/19/19 01/07/20 Kirill Jean MD [address] [place] [phone] PCP - General 01/08/20 10/15/22 Jona Bravo MD [address] [place] [address] PCP - General Internal Medicine 10/16/22 documented as of this encounter
--- OUTSIDE RECORDS SUMMARY | 2024-07-17 11:17 | XMS_ITS | Data Portability ---
Author Organization [facility] [employer], Main Office Address [address] [place] [address] Assessment No assessment recorded. Plan of Treatment [...] Care in Diabe shahnaz(A DA). Not Available [place] [address] [place], [address], 09/14/2021 06:00:34 09/08/19 22 09/14/2021 VITAM IN [...] /MS is recom dani d: order code 92362 (salty ents >2yrs ). See Note 1 Note 1 For addit ional infor axel valderrama refer to http: //lisa Alston stDia gnost ics.c om/fa q/FAQ 199 (This link is being provi ded for infor laith pereyra/ [place] purpo ses only. ) Not Available [facility] [place] [address] [place], [address], 09/14/2021 06:00:33 09/08/19 22 09/14/2021 THYRO ID PANEL WITH TSH T3 uptake 32 % 22-35 normal Not Available [facility] [place] [address] [place], [address], 09/14/2021 06:00:32 09/08/19 22 09/14/2021 THYRO ID PANEL WITH TSH T4 (thyroxine), total 7.4 mcg/d L 5.1-11 .9 normal Not Available [facility] [place] [address] [place], [address], 09/14/2021 06:00:32 09/08/19 22 09/14/2021 THYRO ID PANEL WITH TSH free T4 index (T7) 2.4 1.4-3. 8 normal Not Available [facility] [place] [address] [place], [address], 09/14/2021 06:00:32 09/08/1909/14/2021 THYRO ID PANEL WITH TSH TSH 2.72 mIU/L 0.40-4 .50 normal Not Available [facility] [address], [address], 09/14/2021 06:00:32 09/08/19 22 09/14/2021 INSUL IN [...] (dete kim, gluli sine) . Not Available [facility] [address], [address], 09/14/2021 06:00:31 09/08/1909/14/2021 CORTI JUAN, TOTAL cortisol, total 4.4 mcg/d L normal Refer ence Range : For 8 a.m.( 7-9 a.m.) Speci men: 4.0-2 2.0 Refer ence Range : For 4 p.m.( 3-5 p.m.) Speci men: 3.0-1 7.0 * Pleas e inter pret above resul ts accor dingl y * Not Available [facility] [place] [address] [place], [address], 09/14/2021 06:00:30 09/08/1909/14/2021 THYRO ID PEROX IDASE AND THYRO GLOBU HERO ANTIB ODIES thyroglobuli n antibodies <1 IU/mL < or = 1 normal Not Available [address], [address], 09/14/2021 06:00:29 09/08/19 22 09/14/2021 THYRO ID PEROX IDASE AND THYRO GLOBU HERO ANTIB ODIES thyroid peroxidase antibodies 1 IU/mL <9 normal Not Available [address], [address], 09/14/2021 06:00:29 09/08/19 22 09/14/2021 ACTH, PLASM A acth, plasma <5 pg/mL 6-50 low Refer ence range appli es only to speci mens colle cted betwe en 7am-1 0am. Not Available [address], [address], 09/14/2021 06:00:28 09/08/19 22 09/14/2021 COMPR EHENS KRISTYN METAB OLIC PANEL glucose 81 mg/dL 65-99 normal Fasti ng refer ence inter kathy Not Available [address], [address], 09/14/2021 06:00:27 09/08/19 22 09/14/2021 COMPR EHENS KRISTYN METAB OLIC PANEL urea nitrogen (BUN) 23 mg/dL 7-25 normal Not Available [address], [address], 09/14/2021 06:00:27 09/08/19 22 09/14/2021 COMPR EHENS KRISTYN METAB OLIC PANEL creatinine 0.70 mg/dL 0.50-1 .05 normal Not Available [address], [address], 09/14/2021 06:00:27 09/08/19 22 09/14/2021 COMPR EHENS [...] kdoqi /gfr% 5Fcal culat or Not Available [address] [place], [address], 09/14/2021 06:00:27 09/08/19 22 09/14/2021 COMPR EHENS KRISTYN METAB OLIC PANEL BUN/creatini ne ratio not applic able (calc ) 6-22 Not Available [address], [address], 09/14/2021 06:00:27 09/08/19 22 09/14/2021 COMPR EHENS KRISTYN METAB OLIC PANEL sodium 141 mmol/ L 135-14 6 normal Not Available [address], [address], 09/14/2021 06:00:27 09/08/19 22 09/14/2021 COMPR EHENS KRISTYN METAB OLIC PANEL potassium 3.7 mmol/ L 3.5-5. 3 normal Not Available [address], [address], 09/14/2021 06:00:27 09/08/19 22 09/14/2021 COMPR EHENS KRISTYN METAB OLIC PANEL chloride 103 mmol/ L 98-110 normal Not Available [facility] [address], [address], 09/14/2021 06:00:27 09/08/19 22 09/14/2021 COMPR EHENS KRISTYN METAB OLIC PANEL carbon dioxide 33 mmol/ L 20-32 high Not Available [address], [address], 09/14/2021 06:00:27 09/08/19 22 09/14/2021 COMPR EHENS KRISTYN METAB OLIC PANEL calcium 9.2 mg/dL 8.6-10 .4 normal Not Available [address], [address], 09/14/2021 06:00:27 09/08/19 22 09/14/2021 COMPR EHENS KRISTYN METAB OLIC PANEL protein, total 6.0 g/dL 6.1-8. 1 low Not Available [address], [address], 09/14/2021 06:00:27 09/08/19 22 09/14/2021 COMPR EHENS KRISTYN METAB OLIC PANEL albumin 4.1 g/dL 3.6-5. 1 normal Not Available [address], [address], 09/14/2021 06:00:27 09/08/19 22 09/14/2021 COMPR EHENS KRISTYN METAB OLIC PANEL globulin 1.9 g/dL_ (calc ) 1.9-3. 7 normal Not Available [address], [address], 09/14/2021 06:00:27 09/08/19 22 09/14/2021 COMPR EHENS KRISTYN METAB OLIC PANEL albumin/glob ulin ratio 2.2 (calc ) 1.0-2. 5 normal Not Available [address], [address], 09/14/2021 06:00:27 09/08/19 22 09/14/2021 COMPR EHENS KRISTYN METAB OLIC PANEL bilirubin, total 0.6 mg/dL 0.2-1. 2 normal Not Available [address], [address], 09/14/2021 06:00:27 09/08/19 22 09/14/2021 COMPR EHENS KRISTYN METAB OLIC PANEL alkaline phosphatase 87 U/L 37-153 normal Not Available [facility] [address], [address], 09/14/2021 06:00:27 09/08/19 22 09/14/2021 COMPR EHENS KRISTYN METAB OLIC PANEL AST 34 U/L 10-35 normal Not Available [facility] [address], [address], 09/14/2021 06:00:27 09/08/19 22 09/14/2021 COMPR EHENS KRISTYN METAB OLIC PANEL ALT 41 U/L 6-29 high Not Available [address], [address], 09/14/2021 06:00:27 09/08/19 22 09/14/2021 PHOSP HATE ( PHOSP HORUS ) phosphate ( phosphorus) 4.1 mg/dL 2.5-4. 5 normal Not Available [address], [address], 09/14/2021 06:00:26 09/08/1909/14/2021 PTH, INTAC T AND [...] or Low Amanda l High Not Available [facility] [address], [address], 09/14/2021 06:00:24 09/08/1909/14/2021 PTH, INTAC T AND CALCI UM calcium 9.2 mg/dL 8.6-10 .4 normal Not Available [address], [address], 09/14/2021 06:00:24 09/09/19 22 09/16/2021 PANCR EATIC [...] subst ituti on thera py. Not Available [address], [address], 09/17/2021 17:37:45 09/09/19 22 09/16/2021 FECAL FAT, QUALI TATIV E fecal fat, qualitative abnorm al normal abnormal Not Available [address], [address], 09/17/2021 17:37:45 09/09/19 22 09/16/2021 CALCI UM, 24 HOUR URINE (W/ CREAT ININE ) calcium/crea tinine ratio 90 mg/g_ creat 30-275 normal Not Available [address], [address], 09/17/2021 17:37:44 09/09/19 22 09/16/2021 CALCI UM, 24 HOUR URINE (W/ CREAT ININE ) calcium, 24 hour urine 123 mg/24 _h normal Refer ence Range 35-25 0 Low calci um diet 35-20 0 Not Available [address], [address], 09/17/2021 17:37:44 09/09/19 22 09/16/2021 CALCI UM, 24 HOUR URINE (W/ CREAT ININE ) creatinine, 24 hour urine 1.38 g/24_ h 0.50-2 .15 normal Not Available [facility] [address] [place], [address], 09/17/2021 17:37:44 10/08/19 22 10/08/2021 ACTH, PLASM A acth, plasma 21.9 pg/mL 7.2-63 .3 ACTH refer ence inter kathy for sampl es colle cted betwe en 7 and 10 AM. Perfo rmed at: [facility] [address], [place] [address] Lab Direc tor: Dev morel PhD, Phone : [phone] Not Available [facility] (Lab) [address] [place], [address], 10/08/2021 16:09:46 10/08/19 22 10/07/2021 CORTI JUAN, TOTAL , A.M. beverly AM 11.3 ug/dL 4.5-22 .7 Not Available [facility] (Lab) [address] [place], [address], 10/07/2021 13:57:03 12/17/19 22 12/18/2021 CALCI UM, IONIZ ED calcium, ionized 5.1 mg/dL 4.8-5. 6 normal Not Available [facility] [id number] [place], [place] [address] [place], [address], 12/18/2021 06:34:00 12/17/19 22 12/18/2021 TSH+F REE T4 TSH 0.95 mIU/L 0.40-4 .50 normal Not Available [facility] [address] [facility] [place], [address], 12/18/2021 06:34:00 12/17/19 22 12/18/2021 TSH+F REE T4 T4, free 1.0 NG/dL 0.8-1. 8 normal Not Available [facility] [place] [address] [place], [address], 12/18/2021 06:34:00 12/17/19 22 12/18/2021 VITAM IN [...] /MS is recom dani d: order code 20449 (salty ents >2yrs ). See Note 1 Note 1 For addit ional infor axel valderrama e refer to http: //[facility] gui Alston stDia gnost ics.c om/fa q/FAQ 199 (This link is being provi ded for infor laith pereyra/ [place] purpo ses only. ) Not Available [facility] [place] [address] [place], [address], 12/18/2021 06:34:00 12/17/19 22 12/18/2021 T3, FREE T3, free 3.1 pg/mL 2.3-4. 2 normal Not Available [facility] [address] [place], [address], 12/18/2021 06:33:59 12/17/19 22 12/18/2021 COMPR EHENS KRISTYN METAB OLIC PANEL glucose 100 mg/dL 65-99 high Fasti ng refer ence inter kathy For someo ne witho ut known diabe shahnaz, a gluco se value betwe en 100 and 125 mg/dL is consi stent with predi abete s and shoul d be confi rmed with a follo w-up test. Not Available [place] [address] [place], [address], 12/18/2021 06:33:59 12/17/19 22 12/18/2021 COMPR EHENS KRISTYN METAB OLIC PANEL urea nitrogen (BUN) 20 mg/dL 7-25 normal Not Available [address] [place] [address] [place], [address], 12/18/2021 06:33:59 12/17/19 22 12/18/2021 COMPR EHENS KRISTYN METAB OLIC PANEL creatinine 0.73 mg/dL 0.50-1 .05 normal Not Available [address] [address] [place], [address], 12/18/2021 06:33:59 12/17/19 22 12/18/2021 COMPR EHENS [...] kdoqi /gfr% 5Fcal culat or Not Available [address] [address] [place], [address], 12/18/2021 06:33:59 12/17/19 22 12/18/2021 COMPR EHENS KRISTYN METAB OLIC PANEL BUN/creatini ne ratio not applic able (calc ) 6-22 Not Available [address], [address], 12/18/2021 06:33:59 12/17/19 22 12/18/2021 COMPR EHENS KRISTYN METAB OLIC PANEL sodium 143 mmol/ L 135-14 6 normal Not Available [address], [address], 12/18/2021 06:33:59 12/17/19 22 12/18/2021 COMPR EHENS KRISTYN METAB OLIC PANEL potassium 4.4 mmol/ L 3.5-5. 3 normal Not Available [address], [address], 12/18/2021 06:33:59 12/17/19 22 12/18/2021 COMPR EHENS KRISTYN METAB OLIC PANEL chloride 104 mmol/ L 98-110 normal Not Available [address], [address], 12/18/2021 06:33:59 12/17/19 22 12/18/2021 COMPR EHENS KRISTYN METAB OLIC PANEL carbon dioxide 34 mmol/ L 20-32 high Not Available [address], [address], 12/18/2021 06:33:59 12/17/19 22 12/18/2021 COMPR EHENS KRISTYN METAB OLIC PANEL calcium 9.4 mg/dL 8.6-10 .4 normal Not Available [address], [address], 12/18/2021 06:33:59 12/17/19 22 12/18/2021 COMPR EHENS KRISTYN METAB OLIC PANEL protein, total 6.1 g/dL 6.1-8. 1 normal Not Available [address], [address], 12/18/2021 06:33:59 12/17/19 22 12/18/2021 COMPR EHENS KRISTYN METAB OLIC PANEL albumin 4.2 g/dL 3.6-5. 1 normal Not Available [address], [address], 12/18/2021 06:33:59 12/17/19 22 12/18/2021 COMPR EHENS KRISTYN METAB OLIC PANEL globulin 1.9 g/dL_ (calc ) 1.9-3. 7 normal Not Available [address], [address], 12/18/2021 06:33:59 12/17/19 22 12/18/2021 COMPR EHENS KRISTYN METAB OLIC PANEL albumin/glob ulin ratio 2.2 (calc ) 1.0-2. 5 normal Not Available [address], [address], 12/18/2021 06:33:59 12/17/19 22 12/18/2021 COMPR EHENS KRISTYN METAB OLIC PANEL bilirubin, total 1.0 mg/dL 0.2-1. 2 normal Not Available [address], [address], 12/18/2021 06:33:59 12/17/19 22 12/18/2021 COMPR EHENS KRISTYN METAB OLIC PANEL alkaline phosphatase 84 U/L 37-153 normal Not Available [address], [address], 12/18/2021 06:33:59 12/17/19 22 12/18/2021 COMPR EHENS KRISTYN METAB OLIC PANEL AST 32 U/L 10-35 normal Not Available [address], [address], 12/18/2021 06:33:59 12/17/19 22 12/18/2021 COMPR EHENS KRISTYN METAB OLIC PANEL ALT 37 U/L 6-29 high Not Available [address], [address], 12/18/2021 06:33:59 12/17/19 22 12/18/2021 PHOSP HATE ( PHOSP HORUS ) phosphate ( phosphorus) 4.0 mg/dL 2.5-4. 5 normal Not Available [facility] [address], [address], 12/18/2021 06:33:58 12/17/1912/18/2021 PTH, INTAC T AND [...] or Low Amanda l High Not Available [facility] [address], [address], 12/18/2021 06:33:58 12/17/1912/18/2021 PTH, INTAC T AND CALCI UM calcium 9.4 mg/dL 8.6-10 .4 normal Not Available [facility] [address], [address], 12/18/2021 06:33:58 03/03/19 23 03/17/2022 TSH+F REE T4 TSH 1.96 mIU/L 0.40-4 .50 normal Not Available [facility] [address], [address], 03/17/2022 21:44:15 03/03/19 23 03/17/2022 TSH+F REE T4 T4, free 1.0 NG/dL 0.8-1. 8 normal Not Available [facility] [address], [address], 03/17/2022 21:44:15 03/03/19 23 03/17/2022 T3, FREE T3, free 3.5 pg/mL 2.3-4. 2 normal Not Available [facility] [address] , [place], [address], 03/17/2022 21:44:14 03/03/1903/17/2022 THYRO ID PEROX IDASE ANTIB ODIES thyroid peroxidase antibodies 2 IU/mL <9 normal Not Available [facility] [address] [address], [place], [address], 03/17/2022 21:44:14 03/03/19 23 03/17/2022 CHROM OGRAN [...] follo w-up study . Int J Biol Markgeraldine rs. 2010- un;26 (2):9 4-101 .) This test was perfo rmed using a Liqui d Chrom atogr aphy Mass Spect romet ry metho d. Value s obtai erlin from diffe rent assay metho ds canno t be used inter [place]oul[place] eably . Chrom ogran in A level s, regar dless of value , shoul d not be inter prete d as absol [place] evide nce of the prese nce or absen ce of disea se. This test was devel oped and its [place] tical perfo rmanc e gus cteri stics have been deter mined by [facility] Pamela Capsheree trano . It has not been clear ed or appro otilia by FDA. This assay has been valid ated pursu ant to the CLIA regul ation s and is used for clini fortunato purpo ses. Not Available [facility] [place] [address] [place], [address], 03/17/2022 21:44:13 03/03/19 23 03/17/2022 VASOA CTIVE [...] not be inter prete d as absol [place] evide nce of the prese nce or [...] for clini fortunato purpo ses. Not Available [facility] [place] [address] [place], [address], 03/17/2022 21:44:13 03/03/19 23 03/17/2022 GLUCA SHERIE glucagon 15 pg/mL 11-78 This test was perfo rmed using the Gluca sherie CATHY metho d stand ardiz ed again st the Inter natio nal refer ence prepa ratio n 69/19 4 and has a new refer ence range . Not Available [facility] [place] [address] [place], [address], 03/17/2022 21:44:12 03/03/19 23 03/17/2022 COMPR EHENS KRISTYN METAB OLIC PANEL glucose 89 mg/dL 65-99 normal Fasti ng refer ence inter kathy Not Available [facility] [place] [address] [place], [address], 03/17/2022 21:44:11 03/03/19 23 03/17/2022 COMPR EHENS KRISTYN METAB OLIC PANEL urea nitrogen (BUN) 22 mg/dL 7-25 normal Not Available [address], [address], 03/17/2022 21:44:11 03/03/19 23 03/17/2022 COMPR EHENS KRISTYN METAB OLIC PANEL creatinine 0.66 mg/dL 0.50-1 .05 normal Not Available [address], [address], 03/17/2022 21:44:11 03/03/19 23 03/17/2022 COMPR EHENS [...] kdoqi /gfr% 5Fcal culat or Not Available [address], [address], 03/17/2022 21:44:11 03/03/19 23 03/17/2022 COMPR EHENS KRISTYN METAB OLIC PANEL BUN/creatini ne ratio not applic able (calc ) 6-22 Not Available [address], [address], 03/17/2022 21:44:11 03/03/19 23 03/17/2022 COMPR EHENS KRISTYN METAB OLIC PANEL sodium 143 mmol/ L 135-14 6 normal Not Available [address], [address], 03/17/2022 21:44:11 03/03/19 23 03/17/2022 COMPR EHENS KRISTYN METAB OLIC PANEL potassium 4.1 mmol/ L 3.5-5. 3 normal Not Available [address], [address], 03/17/2022 21:44:11 03/03/19 23 03/17/2022 COMPR EHENS KRISTYN METAB OLIC PANEL chloride 107 mmol/ L 98-110 normal Not Available [address], [address], 03/17/2022 21:44:11 03/03/19 23 03/17/2022 COMPR EHENS KRISTYN METAB OLIC PANEL carbon dioxide 33 mmol/ L 20-32 high Not Available [address], [address], 03/17/2022 21:44:11 03/03/19 23 03/17/2022 COMPR EHENS KRISTYN METAB OLIC PANEL calcium 9.5 mg/dL 8.6-10 .4 normal Not Available [address], [address], 03/17/2022 21:44:11 03/03/19 23 03/17/2022 COMPR EHENS KRISTYN METAB OLIC PANEL protein, total 5.8 g/dL 6.1-8. 1 low Not Available [address], [address], 03/17/2022 21:44:11 03/03/19 23 03/17/2022 COMPR EHENS KRISTYN METAB OLIC PANEL albumin 4.0 g/dL 3.6-5. 1 normal Not Available [address], [address], 03/17/2022 21:44:11 03/03/19 23 03/17/2022 COMPR EHENS KRISTYN METAB OLIC PANEL globulin 1.8 g/dL_ (calc ) 1.9-3. 7 low Not Available [address], [address], 03/17/2022 21:44:11 03/03/19 23 03/17/2022 COMPR EHENS KRISTYN METAB OLIC PANEL albumin/glob ulin ratio 2.2 (calc ) 1.0-2. 5 normal Not Available [address], [address], 03/17/2022 21:44:11 03/03/19 23 03/17/2022 COMPR EHENS KRISTYN METAB OLIC PANEL bilirubin, total 0.6 mg/dL 0.2-1. 2 normal Not Available [address], [address], 03/17/2022 21:44:11 03/03/19 23 03/17/2022 COMPR EHENS KRISTYN METAB OLIC PANEL alkaline phosphatase 89 U/L 37-153 normal Not Available [address], [address], 03/17/2022 21:44:11 03/03/19 23 03/17/2022 COMPR EHENS KRISTYN METAB OLIC PANEL AST 28 U/L 10-35 normal Not Available [address], [address], 03/17/2022 21:44:11 03/03/19 23 03/17/2022 COMPR EHENS KRISTYN METAB OLIC PANEL ALT 31 U/L 6-29 high Not Available [address], [address], 03/17/2022 21:44:11 03/13/19 23 03/31/2022 5 HIAA, 24 HOUR URINE , W/O CREAT ININE total volume 2500 mL Not Available [address], [address], 03/31/2022 16:00:55 03/13/19 23 03/31/2022 5 HIAA, [...] for clini fortunato purpo ses. Not Available [facility] [place] [address] [place], [address], 03/31/2022 16:00:55 06/06/19 23 06/07/2022 COMPR EHENS KRISTYN METAB OLIC PANEL glucose 89 mg/dL 65-99 normal Fasti ng refer ence inter kathy Not Available [facility] [place] [address] [place], [address], 06/07/2022 16:08:33 06/06/19 23 06/07/2022 COMPR EHENS KRISTYN METAB OLIC PANEL urea nitrogen (BUN) 20 mg/dL 7-25 normal Not Available [facility] [address], [address], 06/07/2022 16:08:33 06/06/19 23 06/07/2022 COMPR EHENS KRISTYN METAB OLIC PANEL creatinine 0.78 mg/dL 0.50-1 .05 normal Not Available [facility] [address], [address], 06/07/2022 16:08:33 06/06/19 23 06/07/2022 COMPR EHENS [...] kdoqi /gfr% 5Fcal culat or Not Available [address], [address], 06/07/2022 16:08:33 06/06/19 23 06/07/2022 COMPR EHENS KRISTYN METAB OLIC PANEL BUN/creatini ne ratio NOT APPLIC ABLE (calc ) 6-22 Not Available [address], [address], 06/07/2022 16:08:33 06/06/19 23 06/07/2022 COMPR EHENS KRISTYN METAB OLIC PANEL sodium 141 mmol/ L 135-14 6 normal Not Available [address], [address], 06/07/2022 16:08:33 06/06/19 23 06/07/2022 COMPR EHENS KRISTYN METAB OLIC PANEL potassium 3.7 mmol/ L 3.5-5. 3 normal Not Available [address], [address], 06/07/2022 16:08:33 06/06/19 23 06/07/2022 COMPR EHENS KRISTYN METAB OLIC PANEL chloride 102 mmol/ L 98-110 normal Not Available [address], [address], 06/07/2022 16:08:33 06/06/19 23 06/07/2022 COMPR EHENS KRISTYN METAB OLIC PANEL carbon dioxide 33 mmol/ L 20-32 high Not Available [address], [address], 06/07/2022 16:08:33 06/06/19 23 06/07/2022 COMPR EHENS KRISTYN METAB OLIC PANEL calcium 9.2 mg/dL 8.6-10 .4 normal Not Available [address], [address], 06/07/2022 16:08:33 06/06/19 23 06/07/2022 COMPR EHENS KRISTYN METAB OLIC PANEL protein, total 6.1 g/dL 6.1-8. 1 normal Not Available [address], [address], 06/07/2022 16:08:33 06/06/19 23 06/07/2022 COMPR EHENS KRISTYN METAB OLIC PANEL albumin 4.1 g/dL 3.6-5. 1 normal Not Available [address], [address], 06/07/2022 16:08:33 06/06/19 23 06/07/2022 COMPR EHENS KRISTYN METAB OLIC PANEL globulin 2.0 g/dL_ (calc ) 1.9-3. 7 normal Not Available [address], [address], 06/07/2022 16:08:33 06/06/19 23 06/07/2022 COMPR EHENS KRISTYN METAB OLIC PANEL albumin/glob ulin ratio 2.1 (calc ) 1.0-2. 5 normal Not Available [address], [address], 06/07/2022 16:08:33 06/06/19 23 06/07/2022 COMPR EHENS KRISTYN METAB OLIC PANEL bilirubin, total 0.8 mg/dL 0.2-1. 2 normal Not Available [address], [address], 06/07/2022 16:08:33 06/06/19 23 06/07/2022 COMPR EHENS KRISYTN METAB OLIC PANEL alkaline phosphatase 77 U/L 37-153 normal Not Available [facility] [address], [address], 06/07/2022 16:08:33 06/06/19 23 06/07/2022 COMPR EHENS KRISTYN METAB OLIC PANEL AST 23 U/L 10-35 normal Not Available [facility] [address], [address], 06/07/2022 16:08:33 06/06/19 23 06/07/2022 COMPR EHENS KRISTYN METAB OLIC PANEL ALT 27 U/L 6-29 normal Not Available [facility] [address], [address], 06/07/2022 16:08:33 06/06/19 23 06/07/2022 THYRO ID PEROX IDASE ANTIB ODIES thyroid peroxidase antibodies 1 IU/mL <9 normal Not Available [facility] [address], [address], 06/07/2022 16:08:34 06/06/1906/07/2022 INSUL IN insulin 9.7 uIU/m L normal Refer ence Range < or = 18.4 Risk: Optim al < or = 18.4 Moder ate NA High >18.4 Adult cardi ovasc ular event risk categ ory cut point s (opti mal, moder ate, high) are based on Insul in Refer ence Inter kathy studi es perfo rmed at [facility] in 2021. Not Available [facility] [address], [address], 06/07/2022 16:08:35 06/06/19 23 06/07/2022 T3, FREE T3, free 3.0 pg/mL 2.3-4. 2 normal Not Available [facility] [address], [address], 06/07/2022 16:08:36 06/06/19 23 06/07/2022 TSH+F REE T4 TSH 1.18 mIU/L 0.40-4 .50 normal Not Available [facility] [address], [address], 06/07/2022 16:08:36 06/06/19 23 06/07/2022 TSH+F REE T4 T4, free 1.1 NG/dL 0.8-1. 8 normal Not Available [facility] [address] [place], [address], 06/07/2022 16:08:36 06/06/19 23 06/07/2022 HEMOG LOBIN [...] Care in Diabe shahnaz(A DA). Not Available [facility] [address], [place], [address], 06/07/2022 16:08:37 09/09/19 22 09/08/2021 US, thyro id No observ ation record ed. [id number] [facility] [address] [place], [address], 04/06/2022 01:35:44 09/09/19 22 09/08/2021 bone densi ty No observ ation record ed. [id number] [facility] [address] [place], [address], 04/06/2022 01:35:44 09/09/19 22 D[facility]A, [facility] [address] [place] [address] [phone] Consuelo angelo Name: PETE LLANOS Geraldine A Access ion #: [id number] Sex: F : 1959 6 7 [...] e of 0.1. Page 1 of 2 [facility] Consuelo angelo Name: PETE LLANOS Geraldine A Access ion #: [id number] Sex: F : 1959 6 7 [...] MD (CT) (CT) Page 2 of 2 [id number] [facility] (Imaging) [address] [place], [address], 04/06/2022 01:35:44 09/09/19 US, head + neck, soft tissu [facility] [address] [place] [address] Consuelo angelo Name: PETE LLANOS A Access ion #: [id number] Sex: F : 1959 6 7 [...] r blood flow. Page 1 of 2 [facility] t Name: PETE LLANOS A Access ion #: [id number] Sex: F : 1959 6 7 [...] MD (CT) (CT) Page 2 of 2 [id number] [facility] (Imaging) [address] [place], [address], 04/06/2022 01:35:44 03/31/19 23 03/31/2022 PET-C T, whole body scan No observ ation record ed. [id number] [facility] [place] [address] [place], [address], 04/06/2022 01:35:44 Result Notes None recorded. Problems Name Problem SNOMED Code Status Onset Date Resolution Date Notes Provider Name and Address Organization Details Recorded Time Hypoglycemia 219679889 Active 2021 Not Available [facility] 3 01:34:43 Abnormal cortisol 540624096 Active 2021 Not Available [facility] 3 01:34:43 Hypothyroidis m 05793690 Active 2021 Not Available [facility] 3 01:34:43 Hyperparathyr oidism 27059785 Active 2021 Not Available Replaced by [facility] 3 01:34:43 Reactive hypoglycemia 324355 Active 2022 Mindi Stevens RMPollo null, [facility] 3 10:41:38 Postmenopausa l osteoporosis 122438107 Active 2022 Kayla Alvarado RMA null, [place] [facility] [place] [facility] 3 12:05:10 Problem Notes None recorded. Procedures Surgical History Date Name Laterality Status Provider Name and Address Organization Details Recorded Time repair of urinary bladder completed Not Available Replaced by [facility] 04/06/2022 01:34:04 Neck completed Not Available Replaced by [facility] 04/06/2022 01:34:04 dinitrochlorobenzene contact sensitivity test completed Not Available Replaced by [facility] 04/06/2022 01:34:04 Kidney Stones completed Not Available Replaced by [facility] 04/06/2022 01:34:04 Hysterectomy completed Not Available Replaced by [facility] 04/06/2022 01:34:04 Gastric bypass for obesity completed Not Available Replaced by [facility] 04/06/2022 01:34:04 Carpal tunnel surgery completed Not Available Replaced by [facility] 04/06/2022 01:34:04 Imaging Results None recorded. Procedure Notes None recorded. Medical Equipment None Reported. Allergies Allergen ID Allergen Name Allergen Category Reaction Reaction Severity Criticality Documentation Date Start Date Code Code System Note Provider Name and Address Organization Details Recorded Time 25984 Levaquin medicatio n Not available Not available Not available 04/06/2022 93547 2 RxNorm Not Available Replaced by [facility] 3 01:35:37 11042 Demerol medicatio n Not available Not available Not available 04/06/2022 73786 1 RxNorm Not Available Replaced by [facility] 3 01:35:37 72171 codeine medicatio n Not available Not available Not available 04/06/2022 2670 RxNorm Not Available Replaced by [facility] 3 01:35:37 Medications Name Sig Start Date [...] % 69 /min 12 /min 97.5 [degF] 90082.8 6 g 132 mm[Hg] 78 mm[Hg] Not Available [facility] 3 01:34:09 Date Recorded Body height Body mass index (BMI) Body weight Body temperature Heart rate Systolic blood pressure Diastolic blood pressure Provider Name and Address Organization Details Last Updated DateTime 3 160.02 cm 34 kg/m2 72850.7 4 g 97.6 [degF] 68 /min 149 mm[Hg] 67 mm[Hg] Sujatha Hughes CMA [place] [facility] 3 12:00:46 Date Recorded Body mass index (BMI) Body height Oxygen saturation Oxygen saturation in Arterial blood by Pulse oximetry Heart rate Body temperature Body weight Systolic blood pressure Diastolic blood pressure Provider Name and Address Organization Details Last Updated DateTime 2 32.9 kg/m2 160.02 cm 98 % 98 % 66 /min 97.7 [degF] 29391.4 6 g 120 mm[Hg] 75 mm[Hg] Not Available [facility] 3 01:34:09 Date Recorded Body mass index (BMI) Body height Oxygen saturation Oxygen saturation in Arterial blood by Pulse oximetry Heart rate Body temperature Body weight Systolic blood pressure Diastolic blood pressure Provider Name and Address Organization Details Last Updated DateTime 2 32.8 kg/m2 160.02 cm 99 % 99 % 65 /min 97.8 [degF] 71618.5 9 g 105 mm[Hg] 70 mm[Hg] Not Available [facility] 3 01:34:09 Social History Question Answer Notes LastModified by Organizat [employer] Details LastModified Time Tobacco Smoking Status Never Smoker Not Available [employer] 04/06/2022 01:33:24 What Is Your Level Of Caffeine Consumption? None [id number] Information not available 04/06/2022 What Type Of Diet Are You Following? REGULAR [id number] Information not available 04/06/2022 What Is Your Relationship Status? [id number] Information not available 04/06/2022 Sex: Female Functional Status Question Answer Note LastModified by Organizat [employer] Details LastModified Time What is your level of alcohol consumption? None [id number] Information not available 04/06/2022 What is your exercise level? Occasional [id number] Information not available 04/06/2022 Mental Status None recorded. Family History Relationship Description Onset Age of this Age Resolved Age Notes LastModified by Organization Details LastModified Time Sister Diabetes mellitus [id number] Not available 04/06/2022 01:34:05 Medical History Condition Response ARTHRITIS LUNG DISEASE/DISORDER Y HIGH CHOLESTEROL / HYPERLIPIDEMIA Y EYE PROBLEMS Y SURGERY ALZHEIMER'S DISEASE Y HAVE YOU BEEN HOSPITALIZED OR SEEN [facility] IN THE PAST YEAR ? Y STROKE/TIA Y HEADACHES/MIGRAINES Y DIZZINESS Y KIDNEY DISEASE LIVER DISEASE HYPERTENSION Y GERD/NAUSEA Y EXCESSIVE PERSPIRATION Y Gynecological HistoryNo gynecological history recorded. Obstetrics History GPAL:G 0 P 0 0 0 0 Past Encounters Encounter ID Performer Location Encounter Start Date Encounter Closed Date Diagnosis/Indication Diagnosis SNOMED-CT Code Diagnosis ICD10 Code Diagnosis Note [id number] Keesha Aragon MD [facility] [address] [place] [address] 09/02/2021 00:00:00 09/02/2021 12:15:50 [id number] [facility] [address] [place] [address] 10/14/2021 00:00:00 10/14/2021 21:36:04 [id number] Keesha Aragon MD [facility] [address] [place] [address] 02/27/2022 00:00:00 02/27/2022 12:47:24 [id number] Keesha Aragon MD [facility] [place] [address] [place] [address] 07/31/2022 11:14:26 07/31/2022 12:37:01 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 We referred to [facility] for further insight. she is taking [...] mg/dLCr normalLFT normal Keesha Aragon MD [address] [facility], [facility] [address], [place], [address], [place] [facility] 07/31/2022 15:32:40 OBGyn Episode No OBEpisode recorded.
--- OUTSIDE RECORDS SUMMARY | 2024-07-17 11:17 | XMS_ITS ---
Author Organization [employer] Address [address] [address] Care Team Providers Care Alternative Energy Technician Name Role Phone Kathi Aragon Primary Care Provider [phone] Migration, Provider Unavailable Unavailable Allergies Allergen (clinical drug ingredient) Drug/Non Drug Allergy documented on EMR Reaction Allergy Type Onset Date Status gabapentin Gabapentin Unknown Drug Allergy Activ e doxycycline Doxycycline Unknown Drug Allergy Act miguel meperidine Meperidine Unknown Drug Allergy Activ e codeine Codeine Unknown Drug Allergy Active levofloxacin levoFLOXacin Unknown Drug Allergy A ctive REASON FOR VISIT [facility] To [facility] Conversion Encounter Medications Medication SIG (Take, Route, Frequency, Duration) Notes Start Date End Date Status GVOKE HYPOPEN TWO PACK 1 MG/0.2 ML DIRECTED SUBCUTANEOUSLY ONCE for 1 DAYS *Please review for potential replacement for e-prescription and drug interaction check* 06/14/2023 Unknown Xanax 0.5 MG 1 tab(s) orally at bedtime for 90 days 11/07/2023 Active Prolia 60 MG/ML as directed subcutaneously every 6 months for 180 days 05/09/2023 Unknown Prolia 60 MG/ML as directed subcutaneously every 6 months for 180 days 06/07/2023 Unknown GVOKE HYPOPEN TWO [...] every 6 months for 1 days 03/30/2023 Unknown Magnesium Oxide 500 MG 1 TAB(S) ORALLY ONCE A DAY *Please review and pick correct strength-formulat ion from [employer] options. If intended option is not shown, [...] every 6 months for 12 days 05/25/2023 Unknown HYDROcodone Bitartrate ER 10 MG 1 cap(s) orally every 12 hours 1 TABLET EVERY 6 HOURS FOR PAIN Unknown Iron Up 10 MG/0.3 ML 1 ML ORALLY TWICE DAILY WITH MEALS for 90 DAYS *Please review and pick correct strength-formulat ion from [employer] options. If intended option is not shown, discontinue and re-order from [employer]* 05/18/2023 Unknown Eszopiclone 3 MG 1 tab(s) orally once a day (at bedtime) Unknown Estradiol 1 MG/1 G (0.1%) 1 EA TRANSDERMALLY ONCE A DAY *Please review and pick correct strength-formulat ion from [employer] options. If intended option is not shown, discontinue and re-order from Quick Search* Unknown Ferrous Sulfate 300 MG/5 ML 5 ML ORALLY ONCE A DAY for 90 DAYS *Please review and pick correct strength-formulat ion from [employer] options. If intended option is not shown, discontinue and re-order from [employer] Search* 06/15/2023 Unknown Pregabalin 75 MG 1 cap(s) orally 2 times a day for 30 days 10/27/2023 Unknown Pregabalin 100 MG 1 cap(s) orally 2 times a day for 30 days 10/30/2023 Unknown Cyanocobalamin 1000 MCG/ML inject 1000 mcg subcutaneously once weekly for 90 days 06/25/2023 Unknown Denosumab 60 MG/ML [...] Unknown Encounters Encounter Location Date Provider Diagnosis [facility] [address] [address] 12/22/2023 Provider Migration Type 2 diabetes mellitus [...] orally at bedtime for 90 days 11/07/2023 GVOKE HYPOPEN TWO PACK 1 MG/0.2 ML DIRECTED SUBCUTANEOUSLY ONCE NEEDED FOR SUGARS UNDER 50 MG/DL for 1 DAYS 12/21/2023 *Please review for potential replacement for e-prescription and drug interaction check* Progress Notes * MPRubénCarmenzaOB:[birth year]04 (64 yo F)Acc No.[id number]:12/22/2023 Patient: Tiffanie DAN Provider: Karissa liu Migration :1960 A ge:63 Y S ex:Female Date:12/22/2023 Address:[facility] [place] Pcp:Kathi Aragon Subjective: * Chief Complaints: * [...] *Please review and pick correct strength-formulation from [employer] options. If intended option is not shown, discontinue and re-order from Quick Search*, Unknown Cyanocobalamin 1000 MCG/ML Solution inject 1000 mcg subcutaneously once weekly , Unknown Denosumab 60 MG/ML SOLUTION INJECT 60 MG SUBCUTANEOUSLY EVERY 6 MONTHS , Notes to Pharmacist: *Please review and pick correct strength-formulation from [employer] options. If intended option is not shown, [...] *Please review and pick correct strength-formulation from [employer] options. If intended option is not shown, [...] *Please review and pick correct strength-formulation from [employer] options. If intended option is not shown, [...] *Please review and pick correct strength-formulation from [employer] options. If intended option is not shown, [...] * Procedure Codes: * Electronic signature of Mona pollard Migration on 07/17/2024 at 11:17 AM CDT Sign off status: Pending * Provider: Karissa liu Migration Date: 02/20/2023 Generated for Ramila baldwin/Hernando/Chandnismitting on: 0 07/17/2024 11:17 AM CDT
--- OUTSIDE RECORDS SUMMARY | 2024-07-17 11:18 | XMS_ITS | Clinical Summary ---
Author Organization [facility] [employer] Address [address] [place] [address] Care Team Providers Care Stake Driver Name Role Phone Jona Bravo MD Primary Care Provider [phone] Source Comments [facility] [employer],non-owned Affiliates and Associated Physician Practices is amultiple site organization consisting of ambulatory clinics and hospital sitesin [place], [place], [place] and [place]. This disclosure is being madepursuant to the Care Everywhere program and may not contain all information available regarding this patient. Last updated 17.[facility] [employer] Allergies Active Allergy Reactions Criticality Noted Date [...] Units/L by mouth once daily Active Biotin 93784 MCG TBDP Take 1 tablet by mouth [...] tablet by mouth once Active nystatin (NYSTOP) 390734 UNIT/GM powder APPLY POWDER TOPICALLY TO AFFECTED [...] 01/15/08: Lap banding by Dr. Claros at [facility] Had a port leak with [...] Type Department Care Team Description 04/16/2024 Travel from Last 3 Months Immunizations Immunization Administration Dates Next Due Covid Moderna primary [...] PM CDT Legal Sex Female 6:58 AM CHIEF GREEN OFFICER Gender Identity Female 04/25/2020 11:44 PM CDT Sexual Orientation Straight 04/25/2020 11 :44 PM CDT Last Filed Vital Signs Vital Sign Reading Time Taken Comments Blood Pressure 141/71 04/10/2024 9:56 AM CHIEF GREEN OFFICER Pulse 65 04/10/2024 9:56 AM CHIEF GREEN OFFICER Temperature 36.3 C (97.3 F) 04/10/2024 9:56 AM CHIEF GREEN OFFICER Respiratory Rate 18 04/10/2024 9:56 AM CHIEF GREEN OFFICER Oxygen Saturation 98% 06/21/2023 12:44 PM CDT Inhaled Oxygen Concentration - - Weight 84.8 kg (187 lb) 04/10/2024 9:56 AM CHIEF GREEN OFFICER Height 161.3 cm (5' 3.5) 04/10/2024 9:56 AM CHIEF GREEN OFFICER Body Mass Index 32.61 04/10/2024 9:56 AM CHIEF GREEN OFFICER Plan of Treatment Upcoming Encounters Date Type Department Care Team (Late st Contact Info) Description 04/13/2025 10:00 AM CDT Procedure visit [facility] [place] [address] [place] [phone] 04/13/2025 10:30 AM CDT Office Visit [facility] [address] [place] [phone] Soham Hutton MD [address] [place] [address] [place] [address] Health Maintenance Due Date Last Done Comments COLOGUARD (AGES 45-75) - COLON CA SCREENING 1960 CT COLONOGRAPHY - COLON CA SCREENING 1959 FIT - COLON CA SCREENING 1959 FLEX SIG - COLON CA SCREENING 1960 MEDICARE AWV 12 MONTHS 1959 HIV SCREENING 1974 HEPATITIS C SCREENING 01/30/1977 DTAP/TDAP/TD VACCINES (1 - Tdap) 1978 PAP SMEAR 02/05/1980 PAP with HPV 1989 ZOSTER VACCINE (1 of 2) 2009 PNEUMOCOCCAL VACCINE 50+ (2 of 2 - PPSV23, PCV20, or PCV21) 11/11/2014 09/16/2014 DIABETES RETINOPATHY SCREENING 03/21/2018 DIABETES-FOOT [...] COMPREHENSIVE METABOLIC PANEL (06/05/2022 10:49 AM CDT) [facility] Glucose 86 65 - 99 mg/dL [facility] [...] 29 U/L [facility] Comment: Test Performed at: [email or web address] [address] [address] ARACELY DANIEL MD 06/05/2022 10:4 9 AM CDT 06/05/2022 10:50 AM CDT Ivette Alyson Monteiro ROTARY BAR OPERATOR-[facility]ILD[facility] PREVENTION SPECIALIST LAB - CHEMISTRY O RDERABLES Final Result [employer] [address] [place] [address] * ENDOSCOPY, COLON, SCREENING (08/03/2020 9:10 AM [...] entire procedure. Procedure Code(s): --- Professional --- 46056, Colonoscopy, flexible; with biopsy, single or multiple Diagnosis Code(s): --- Professional --- Z86.010, Personal history of colonic polyps K63.5, Polyp of colon K57.30, Diverticulosis of large intestine without perforation or abscess without bleeding CPT copyright 2019 [employer]. All rights reserved. The codes documented in this report are preliminary and upon tire man review may be revised to meet current compliance requirements. Soham Farley MD 08/03/2020 10:38:53 AM This report has been signed electronically. Note Initiated On: 08/03/2020 9:10 AM Number of Addenda: [address] [employer] 08/03/2020 9:10 AM CDT Soham Hutton MD GI PROCEDURE ORDER RYAN Edited Result - Final [facility] * HEMOGLOBIN A1C (07/23/2008 11:32 AM CDT) Hemoglobin A1c 5.7 3.9 - 6.1 % [facility] Estimated Average Glucose 116.9 mg/dl [facility] BLOOD SPECIMEN / Unknown 07/23/2008 11:32 AM CDT Narrative [facility] - 07/23/2008 9:23 PM CDT [id number] Resulting Agency Comment Performed By [facility] [address] [place] [address] us Scott Claros MD LAB - CHEMISTRY ORDERABLE S Final Result Performing Organization Address City/[facility]/ZIP Co de Phone Number [facility] [address] [place] [address] from Last 3 Months or Most Recently Relevant to Health Maintenance Insurance SELF PAY NO INSURANCE Member Subscriber Plan / Payer (Ef fective for All Dates) Name:Tiffanie Gresham Pollo Member ID:Not on file Relation to Subscriber:Self Name:TIFFANIE GRESHAM Subscriber ID:Not on file Payer ID:Not on file Group ID:Not on file Type:Self Pay Address: [place], [place] MEDICARE [facility] Address: [facility] [address] [place] [address] MEDICARE Advance Directives * Full Code (Latest Code Status on File) Date Activated Date Inactivated Comments 06/19/2018 5:17 PM 06/20/2018 8:12 PM * Full Code Date Activated Date Inactivated Comments 12/24/2017 11:20 AM 12/25/2017 12:40 PM Care Teams Stake Driver Relationship Specialty Start Date End Date Jona Bravo MD [address] [place] [phone] PCP - General Internal Medicine 10/16/22
--- OUTSIDE RECORDS SUMMARY | 2024-07-17 11:18 | XMS_ITS | Encounter Summary ---
Author Organization [facility] Address [address] [place] [address] Care Team Providers Care Grappler Name Role Phone Jona Bravo MD Primary Care Provider + Desire Sams RN Unavailable Un available Pooja [place] LCSW Unavailable [phone] Roscoe Mccollum MD Unavailable [phone] Encounter Details Date Type Department Care Team (Late st Contact Info) Description 09/17/2020 Telephone [facility] [address] [place] [phone] Kim Gagnon, RT Social History Tobacco Use [...] file Legal Sex Female 12:46 AM MANAGER DATA WAREHOUSE Gender Identity Female 04/08/2019 6:15 AM MANAGER DATA WAREHOUSE Sexual Orientation Straight 04/08/2019 6: 15 AM MANAGER DATA WAREHOUSE documented as of this encounter Plan of Treatment Not on file documented as of this encounter Visit Diagnoses Not on filedocumented in this encounter Care Teams Grappler Relationship Specialty Start Date End Date Jona Bravo MD PCP - General 05/05/16 Desire Sams, RN Registered Nurse 04/03/17 Pooja [place], [facility] [address] [facility] Mailstop [phone] [place] [address] [facility] Exercise Class Instructor 10/12/21 11/09/21 Roscoe Mccollum MD [address] [place] [address] [address] Anesthesiologist Pain Management 12/21/21 documented as of this encounter
--- OUTSIDE RECORDS SUMMARY | 2024-07-17 11:18 | XMS_ITS ---
Author Organization [facility] Address [address] [place] [address] Care Team Providers Care School Teacher Name Role Phone Kathi Zimmerman Primary Care Provider REASON FOR VISIT FOLLOW UP/PROLIA MV Encounters Encounter Location Date Provider Diagnosis [facility] [facility], [facility] - Kathi Zimmerman [address] [place] [address] 01/11/2024 Kathi Zimmerman Plan Of Treatment No Information Progress Notes * Javon GRESHAMOB:[birth year] (64 yo F)Acc No.[id number]:01/11/2024 Progress Notes Patient: Tiffanie DAN Provider: Namoi Zimmerman MD :1960 A ge:63 Y S ex:Female Date:01/11/2024 Address:[facility]note 2[facility] [place] [place], [place] Subjective: * Chief Complaints: * 1 . FOLLOW UP/PROLIA MV. * Medical History: Objective: * Vitals: Assessment: Plan: * Treatment: * Billing Information: * Visit Code: * Procedure Codes: * Electronic signature of Mauricio Zimmerman MD on 07/17/2024 at 09:58 AM CDT Sign off status: Pending * Provider: Naomi Zimmerman MD Date: 1 03/13/2023 Generated for Adalbertoi ng/Faxing/eTransmitting on: 0 07/17/2024 09:58 AM CDT
--- OUTSIDE RECORDS SUMMARY | 2024-07-17 11:18 | XMS_ITS | Encounter Summary ---
Author Organization [facility] Address [address] [place] [address] Phone Care Team Providers Care Legal Document Specialist Name Role Phone Jona Bravo MD Primary Care Provider [phone] Encounter Details Date Type Department Care Team (Late st Contact Info) Description 07/17/2024 Orders Only [facility] [address] [place] [address] Elke Scales MA Nephrolithiasis (Primary Dx) Social History Tobacco Use Types Packs/Day Years [...] Description 09/11/2024 2:20 PM CDT Office Visit [facility] [address] [place] [address] Janeth Betts PA [address] [place] [address] 10/07/2025 1:20 PM CDT Office Visit [facility] [address] [place] [address] Uche Vela MD [address] [place] [address] Scheduled Orders Name Type Priority Associated Diagnoses Orde r Schedule [facility] 24-Hour Urine Panel Lab Routine Nephrolithiasis 1 Occurrences starting 07/17/2024 until 07/17/2025 documented as of this encounter Visit Diagnoses Diagnosis Nephrolithiasis- Primary documented in this encounter Care Teams Legal Document Specialist Relationship Specialty Start Date End Date Jona Bravo MD [address] [place] [phone] PCP - General Internal Medicine 06/16/19 documented as of this encounter
--- OUTSIDE RECORDS SUMMARY | 2024-07-17 11:18 | XMS_ITS | Clinical Summary ---
Author Organization [facility] Address [address] [place] [address] Phone Care Team Providers Care Corporation Secretary Name Role Phone Jona Bravo MD Primary Care Provider [phone] Allergies Active Allergy Reactions Criticality Noted Date [...] Encounters Date Type Department Care Team Description 07/17/2024 Orders Only [facility] [address] [place] [address] Elke Scales MA Nephrolithiasis (Primary Dx) 05/28/2024 10:40 AM CDT Office Visit [facility] [address] [place] [address] Janeth Betts PA Nephrolithiasis (Primary Dx) from [...] Description 09/11/2024 2:20 PM CDT Office Visit [facility] [address] [place] [address] Janeth Betts PA [address] [place] [address] 10/07/2025 1:20 PM CDT Office Visit [facility] [address] [place] [address] Uche Vela MD [address] [place] [address] Health Maintenance Due Date Last Done Comments [...] - 04/24/2024 2:07 AM CDT Performed at: - [facility] [address] [id number] [employer] Container Filler: Dez Perez PhD, Phone: [phone] us Uche Vela MD LAB URINE ORDERABLES Edited Resu lt - Final [facility] 1 from Last 3 Months Insurance MEDICARE [facility] Care Teams Corporation Secretary Relationship Specialty Start Date End Date Jona Bravo MD [address] [place] [address] [place] [address] PCP - General Internal Medicine 06/16/19
--- OUTSIDE RECORDS SUMMARY | 2024-07-17 11:18 | XMS_ITS | Clinical Summary ---
Author Organization [facility] Address [address] [place] [address] Phone Care Team Providers Care Workforce Advisor Name Role Phone Jona Bravo MD Primary Care Provider [phone] Active Problems Problem Noted Date Diagnosed Date [...] Virus (HCV) Screening 1960 TdaP Immunization 1960 Cologuard 02/05/2004 Colonoscopy 02/05/2004 Colorectal Cancer Screening 02/05/2004 Immunochemical Fecal Occult Blood 02/05/2004 Pneumococcal Immunization (50+ years) (1 of 1 [...] age to complete this topic Care Teams Workforce Advisor Relationship Specialty Start Date End Date Jona Bravo MD [address] [place] [id number] PCP - General 05/04/17
--- OUTSIDE RECORDS SUMMARY | 2024-07-17 11:18 | XMS_ITS | Patient Health Record ---
Author Organization Formerly [facility] Address [address], [place] [id number] Care Team Providers Care Special Education Teaching Assistant Name Role Phone ErasomKathi Primary Care Provider Migration, Provider Unavailable Unavailable Allergies Allergen (clinical drug ingredient) Drug/Non Drug Allergy documented on EMR Reaction Allergy Type Onset Date Status gabapentin Gabapentin Unknown Drug Allergy Activ e levofloxacin levoFLOXacin Unknown Drug Allergy A ctive doxycycline Doxycycline Unknown Drug Allergy Act miguel codeine Codeine Unknown Drug Allergy Active meperidine Meperidine Unknown Drug Allergy Activ e Results Component Value Reference Range Flag Notes COMPREHENSIVE METABOLIC PANE L Reviewed date:09/04/2023 08:01:57 PM Interpretation: Performing Lab:[place], [facility], [address] [place], [address] Law Nathan MD Notes/Report: FASTING:YES PATIENT REFUSED SOME TESTING; PATIENT ENCOURAGED TO RETURN. FASTING: YES Fasting reference interval Not Reported: BUN and Creatinine are within reference range. GLUCOSE 83 65-99 mg/dL N UREA NITROGEN (BUN) 19 7-25 mg/dL N CREATININE 0.63 0.50-1.05 mg/dL N EGFR 99 > OR = 60 mL/min/1.73m2 N BUN/CREATININE RATIO SEE NOTE: 6-22 (calc) SODIUM 142 135-146 mmol/L N POTASSIUM 4.2 3.5-5.3 mmol/L N CHLORIDE 106 98-110 mmol/L N CARBON DIOXIDE 27 20-32 mmol/L N CALCIUM 8.3 8.6-10.4 mg/dL L PROTEIN, TOTAL 6.0 6.1-8.1 g/dL L ALBUMIN 3.9 3.6-5.1 g/dL N GLOBULIN 2.1 1.9-3.7 g/dL (calc) N ALBUMIN/GLOBULIN RATIO 1.9 1.0-2.5 (calc) N BILIRUBIN, TOTAL 0.7 0.2-1.2 mg/dL N ALKALINE PHOSPHATASE 80 37-153 U/L N AST 34 10-35 U/L N ALT 39 6-29 U/L H ACTH, PLASMA Reviewed date:09/09/2023 07:11:40 PM Interpretation: Performing Lab:[facility], [address] [facility], [place], [address] Donnie Coelho M.D.,PhD Notes/Report: FASTING:YES PATIENT REFUSED SOME TESTING; PATIENT ENCOURAGED TO RETURN. FASTING: YES Reference range applies only to specimens collected between 7am-10am. ACTH, PLASMA 7 6-50 pg/mL T3, FREE Reviewed date:09/04/2023 08:03:42 PM Interpretation: Performing Lab[facility] [address] [place], [address] Law Nathan MD Notes/Report: FASTING:YES PATIENT REFUSED SOME TESTING; PATIENT ENCOURAGED TO RETURN. FASTING: YES T3, FREE 3.3 2.3-4.2 pg/mL N HEMOGLOBIN A1c Reviewed date:09/09/2023 07:11:18 PM Interpretation: Performing Lab:[facility], [address] , [place], [address] Law Nathan Notes/Report: FASTING:YES PATIENT REFUSED SOME TESTING; PATIENT ENCOURAGED TO RETURN. FASTING: YES For someone without known diabetes, a hemoglobin A1c value of 6.5% or greater indicates that they may have diabetes and this should be confirmed with a follow-up test. For someone with known diabetes, a value <7% indicates that their diabetes is well controlled and a value greater than or equal to 7% indicates suboptimal control. A1c targets should be individualized based on duration of diabetes, age, comorbid conditions, and other considerations. Currently, no consensus exists regarding use of hemoglobin A1c for diagnosis of diabetes for children. This test was performed on the Nga stefano c503 platform. Effective 04/23/23, a change in test platforms from the [employer] Jailer to the Nga stefano c503 may have shifted HbA1c results compared to historical results. Based on laboratory validation testing conducted at [facility], the Nga platform relative to the Kidd platform had an average increase in HbA1c value of < or = 0.3%. This difference is within accepted variability established by the National Glycohemoglobin Standardization Program. Note that not all individuals will have had a shift in their results and direct comparisons between historical and current results for testing conducted on different platforms is not recommended. HEMOGLOBIN A1c 8.0 <5.7 % of total Hgb H CBC (INCLUDES DIFF/PLT) Reviewed date:09/04/2023 08:02:20 PM Interpretation: Performing Lab:[facility], [address] [place], [address] Law Nathan MD Notes/Report: FASTING:YES PATIENT REFUSED SOME TESTING; PATIENT ENCOURAGED TO RETURN. FASTING: YES WHITE BLOOD CELL COUNT 4.6 3.8-10.8 Thousand/uL N RED BLOOD CELL COUNT 4.05 3.80-5.10 Million/uL N HEMOGLOBIN 13.7 11.7-15.5 g/dL N HEMATOCRIT 43.1 35.0-45.0 % N MCV 106.4 80.0-100.0 fL H MCH 33.8 27.0-33.0 pg H MCHC 31.8 32.0-36.0 g/dL L RDW 12.9 11.0-15.0 % N PLATELET COUNT 175 140-400 Thousand/uL N MPV 9.6 7.5-12.5 fL N ABSOLUTE NEUTROPHILS 2461 8211-6882 cells/uL N ABSOLUTE LYMPHOCYTES 3028 545-4543 cells/uL N ABSOLUTE MONOCYTES 455 200-950 cells/uL N ABSOLUTE EOSINOPHILS 83 15-500 cells/uL N ABSOLUTE BASOPHILS 18 0-200 cells/uL N NEUTROPHILS 53.5 N LYMPHOCYTES 34.4 N MONOCYTES 9.9 N EOSINOPHILS 1.8 N BASOPHILS 0.4 N IRON AND TOTAL IRON BINDING CAPACITY Reviewed date:09/04/2023 08:03:16 PM Interpretation: Performing Lab:[facility], [address] [place], [address] Law Nathan MD Notes/Report: FASTING:YES PATIENT REFUSED SOME TESTING; PATIENT ENCOURAGED TO RETURN. FASTING: YES IRON, TOTAL 135 45-160 mcg/dL N IRON BINDING CAPACITY 360 250-450 mc g/dL (calc) N % SATURATION 38 16-45 % (calc) N LIPID PANEL Reviewed date:09/04/2023 08:01:39 PM Interpretation: Performing Lab:[facility], [address] [place], [address] Law Nathan MD Notes/Report: FASTING:YES PATIENT REFUSED SOME TESTING; PATIENT ENCOURAGED TO RETURN. FASTING: YES Reference range: <100 Desirable range <100 mg/dL for primary prevention; <70 mg/dL for patients with CHD or diabetic patients with > or = 2 CHD risk factors. LDL-C is now calculated using the Shannan calculation, which is a validated novel method providing better accuracy than the Friedewald equation in the estimation of LDL-C. Tai SS et al. YONI. 2013;310(63): 4486-3800 (http://[employer].Accelalox/faq/XTI610) For patients with diabetes plus 1 major ASCVD risk factor, treating to a non-HDL-C goal of <100 mg/dL (LDL-C of <70 mg/dL) is considered a therapeutic option. CHOLESTEROL, TOTAL 174 <200 mg/dL N HDL CHOLESTEROL 59 > OR = 50 mg/dL N TRIGLYCERIDES 62 <150 mg/dL N LDL-CHOLESTEROL 101 H CHOL/HDLC RATIO 2.9 <5.0 (calc) N NON HDL CHOLESTEROL 115 <130 mg/dL (calc) N T4, FREE Reviewed date:09/04/2023 08:03:25 PM Interpretation: Performing Lab:[facility], [address] [place], [address] Law Nathan MD Notes/Report: FASTING:YES PATIENT REFUSED SOME TESTING; PATIENT ENCOURAGED TO RETURN. FASTING: YES T4, FREE 1.1 0.8-1.8 ng/dL N TSH Reviewed date:09/04/2023 08:03:33 PM Interpretation: Performing Lab:[facility], [address] [place], [address] Law Nathan MD Notes/Report: FASTING:YES PATIENT REFUSED SOME TESTING; PATIENT ENCOURAGED TO RETURN. FASTING: YES TSH 3.81 0.40-4.50 mIU/L N CORTISOL, TOTAL (367) (Not y et reviewed by provider) Interpretation: Performing Lab:[facility], [place] Law Nathan MD Notes/Report: SPLIT 06/24/2024 FROM [id number] FASTING:YES FASTING: YES CORTISOL, TOTAL 13.4 N Reference Range: For 8 a.m.(7-9 a.m.) Specimen: 4.0-22.0 Reference Range: For 4 p.m.(3-5 p.m.) Specimen: 3.0-17.0 * Please interpret above results accordingly * DEXAMETHASONE (00631) Reviewed date:07/03/2024 11:07:46 PM Interpretation: Performing Lab:Messi MOON/[facility]ore[facility],[address] [address] [facility], [place] Maryan Vargas MD,PhD,[place] Notes/Report: FASTING:YES MULTIPLE TESTING PRIORITIES; ROUTINE TESTING TO FOLLOW. FASTING: YES DEXAMETHASONE 142 used for clinical purposes. It has not been cleared or approved by the FDA. This assay Baseline: Less than 20 ng/dL This test was developed and its analytical performance has been validated pursuant to the CLIA regulations and is 1 mg dexamethasone overnight: 180-550 ng/dL (8:00-10:00 AM) Reference Ranges for Dexamethasone: characteristics have been determined by [facility]. CBC + AutoDiff 5 Reviewed date:03/19/2024 02:09:52 PM Interpretation: Performing Lab: Notes/Report: WBC 4.85 3.8-10.80 10*3/ul RBC 3.71 3.80-5.80 10*6/ul L HGB 13.5 11.7-17.1 g/dL HCT 41.0 37-47 % MCV 110.4 78-100 fL H MCH 36.5 27-31 pg H MCHC 33.0 32-36 % RDW 12.8 11-15 % RDW-SD 47.6 38.9-49.0 % PLATELETS 187 140-400 10^3/uL MPV 8.23 7.42-10.77 fL LYMPHOCYTES % 40.21 18.94-46.71 % LYMPHOCYTES # 1.95 0.85-3.90 10^3/uL MONOCYTES % 10.34 4.88-12.81 % MONOCYTES # 0.50 0.20-0.95 10^3/uL EOSINOPHILS % 2.34 0.74-6.73 % EOSINOPHILS # 0.11 0.00-0.50 10^3/uL BASOPHILS % 0.55 0.05-0.48 % H BASOPHILS # 0.03 0.00-0.03 10^3/uL NEUTROPHILS % 46.56 40.62-71.65 % NEUTROPHILS # 2.26 1.50-7.80 10^3/uL COMP. METABOLIC Reviewed date:03/19/2024 02:09:52 PM Interpretation: Performing Lab: Notes/Report: SODIUM 150 135-146 mmol/L H POTASSIUM 4.3 3.5-5.3 mmol/L CHLORIDE 112 98-110 mmol/L H GLUCOSE 93 65-139 mg/dL BUN 31 7-25 mg/dL H CALCIUM 10.1 8.6-10.4 mg/dL TOTAL PROTEIN 6.9 6.1-8.1 g/dL ALBUMIN 4.8 3.6-5.1 g/dL AST 41 10-35 IU/L H ALK PHOSPHATASE 57 37-153 IU/L TOTAL BILIRUBIN 0.7 0.2-1.2 mg/dL ALT 49 6-29 IU/L H GLOBULIN 2.10 2.0-5.0 g/dL A/G RATIO 2.3 1.1-2.5 Ratio LIPID PANEL Reviewed date:03/19/2024 02:09:52 PM Interpretation: Performing Lab: Notes/Report: CHOLESTEROL 156 0-200 mg/dL HDL CHOLESTEROL 75 50 mg/dL TRIGLYCERIDES 47 0-150 mg/dL LDL Direct 67.0 0-100 mg/dL CHOL/HDL RATIO 2.08 HEMOGLOBIN A1c % Reviewed date:03/19/2024 02:09:52 PM Interpretation: Performing Lab: Notes/Report: HEMOGLOBIN A1c % 5.2 4.5-6.3 % VITAMIN B-12 Reviewed date:03/19/2024 02:09:52 PM Interpretation: Performing Lab: Notes/Report: VITAMIN B-12 >1,537 200-1,100 pg/mL H T3, FREE Reviewed date:03/19/2024 02:09:52 PM Interpretation: Performing Lab: Notes/Report: T3, FREE 2.91 2.3-4.2 pg/mL CREATININE 0.75 0.50-1.05 mg/dL eGFR 88.3 >60 mL/min BUN/CREA RATIO 41.3 9-28 Ratio H CO2 28 20-32 mmol/L TSH Reviewed date:03/19/2024 02:09:52 PM Interpretation: Performing Lab: Notes/Report: TSH 1.047 0.40-4.50 mIU/L VITAMIN D (25-hydroxy) Reviewed date:03/19/2024 02:09:52 PM Interpretation: Performing Lab: Notes/Report: VITAMIN D 41.11 30-100 ng/mL T4, FREE Reviewed date:03/19/2024 02:09:52 PM Interpretation: Performing Lab: Notes/Report: T4, FREE 0.94 0.8-1.8 ng/dL Reason For Referral Reason primary hyperathyroi dism, PTH nonsuppressible with calcium over 10 and having chronic kidney stones, risk for renal disease Diagnosis 1 Primary hyperparathy roidism (E21.0) Referral Organization [facility] Dr[facility] Aragon Referring Provider First Name Kathi Referring Provider Last Name Erasmo Referring Provider Speciality Endocrinol og Referred Provider Specialty Surgical Onc ology Referral Priority Routine Reason Consult with Dr. Cisse asco Diagnosis 1 Hyperparathyroidism, unspecified (E21.3) Referral Organization [facility] Dr. Aragon Referring Provider First Name Kathi Referring Provider Last Name Erasmo [facility] Referred Provider Specialty Surgical Onc ology Referral Priority Routine Medications Medication SIG (Take, Route, Frequency, Duration) Notes Start Date End Date Status Magnesium Oxide 500 MG TABLET 1 TAB(S) ORALLY ONCE A DAY *Please review and pick correct strength-formula tion from [email or web address] options. If intended option is not shown, discontinue and re-order from Quick Search* *Pick strength-form from [email or web address] for eRX* Not-Taking Potassium Citrate ER 10 MEQ (1080 MG) Tablet Extended Release 1 tab(s) orally 3 times a day Not-Taking Pravastatin Sodium 80 MG Tablet 1 tab(s) orally once a day Active Albuterol Sulfate HFA 108 (90 Base) MCG/ACT Aerosol Solution 2 puff(s) inhaled every 6 hours Active Gvoke HypoPen 1-Pack 1 MG/0.2ML Solution Auto-injector USE DIRECTED SUBCUTANEOUSLY ONCE NEEDED FOR SUGARS UNDER 50 MG/DL; Duration: 1 Active buPROPion HCl ER (XL) 300 MG Tablet Extended Release 24 Hour 1 tab(s) orally every 24 hours Active GVOKE HYPOPEN TWO PACK 1 MG/0.2 ML SOLUTION DIRECTED SUBCUTANEOUSLY ONCE; Duration: 1 DAYS *Please review for potential replacement for e-prescription and drug interaction check* *Reorder from [facility] for eRx and Interaction Alerts* 06/14/2023 Not-Taking Estradiol 1 MG/1 G (0.1%) GEL 1 EA TRANSDERMALLY ONCE A DAY *Please review and pick correct strength-formula tion from [facility] options. If intended option is not shown, discontinue and re-order from Quick Search* *Pick strength-form from [facility] for eRX* Active Prolia 60 MG/ML Solution Prefilled Syringe as directed subcutaneously every 6 months; Duration: 180 days 06/07/2023 Not-Taking HYDROcodone Bitartrate ER 10 MG Capsule Extended Release 12 Hour 1 cap(s) orally every 12 hours 1 TABLET EVERY 6 HOURS FOR PAIN Active Prolia 60 MG/ML Solution Prefilled Syringe as directed subcutaneously every 6 months; Duration: 180 days 05/09/2023 Not-Taking Prolia 60 MG/ML Solution Prefilled Syringe as directed subcutaneously every 6 months; Duration: 1 days 03/30/2023 Active Gvoke HypoPen One Pack 1 MG/0.2 ML SOLUTION DIRECTED SUBCUTANEOUSLY ONCE; Duration: 1 DAYS *Please review for potential replacement for e-prescription and drug interaction check* *Reorder from [facility] for eRx and Interaction Alerts* 03/30/2023 Active Levothyroxine Sodium 88 MCG Tablet 1 tab(s) orally once a day Active tiZANidine HCl 4 MG Tablet 2 cap(s) orally 3 times a day Active Xanax 0.5 MG Tablet 1 tab(s) orally at bedtime; Duration: 90 days 11/07/2023 Not-Taking GVOKE HYPOPEN TWO PACK 1 MG/0.2 ML SOLUTION INJECT 1 MG NEEDED SUBCUTANEOUSLY ONCE; Duration: 1 DAYS *Please review for potential replacement for e-prescription and drug interaction check* *Reorder from [facility] for eRx and Interaction Alerts* 06/15/2023 Not-Taking GVOKE HYPOPEN TWO PACK 1 MG/0.2 ML SOLUTION DIRECTED SUBCUTANEOUSLY ONCE NEEDED FOR SUGARS UNDER 50 MG/DL; Duration: 1 DAYS *Please review for potential replacement for e-prescription and drug interaction check* *Reorder from [facility] for eRx and Interaction Alerts* 12/21/2023 Not-Taking Prolia 60 MG/ML Solution Prefilled Syringe inject 60 mg Subcutaneous once; Duration: 90 days 05/30/2024 Active Cyanocobalamin 1000 MCG/ML Solution INJECT 1 ML SUBCUTANEOUSLY ONCE A WEEK; Duration: 90 Active dexAMETHasone 1 MG Tablet TAKE 1 TABLET BY MOUTH AT 10 PM THE NIGHT BEFORE DST; Duration: 1 Active Pregabalin 100 MG Capsule 1 cap(s) orally 2 times a day; Duration: 30 days 10/30/2023 Not-Taking Pregabalin 75 MG Capsule 1 cap(s) orally 2 times a day; Duration: 30 days 10/27/2023 Not-Taking Denosumab 60 MG/ML SOLUTION INJECT 60 MG SUBCUTANEOUSLY EVERY 6 MONTHS; Duration: 1 DAYS *Please review and pick correct strength-formula tion from [facility] options. If intended option is not shown, discontinue and re-order from Quick Search* *Pick strength-form from [facility] for eRX* 06/28/2023 Not-Taking Ferrous Sulfate 300 MG/5 ML LIQUID 5 ML ORALLY ONCE A DAY; Duration: 90 DAYS *Please review and pick correct strength-formula tion from [facility] options. If intended option is not shown, discontinue and re-order from Quick Search* *Pick strength-form from [facility] for eRX* 06/15/2023 Not-Taking DULoxetine HCl 60 MG Capsule Delayed Release Particles 1 capsule Orally Once a day Active Aspirin 81 MG Tablet Delayed Release 1 tab(s) orally once a day Not-Taking Vitamin D3 *Pick strength-form from [facility] for eRX* Active Eszopiclone 3 MG Tablet 1 tab(s) orally once a day (at bedtime) Not-Taking Prolia 60 MG/ML Solution Prefilled Syringe as directed subcutaneously every 6 months; Duration: 12 days 05/25/2023 Not-Taking Iron Up 10 MG/0.3 ML LIQUID 1 ML ORALLY TWICE DAILY WITH MEALS; Duration: 90 DAYS *Please review and pick correct strength-formula tion from [facility] options. 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) Active confirmed Problem Hypothyroidism (96939448) Hypothyroidism, unspecified (E03.9) Active confirmed Problem Hypoglycemia due to type 2 diabetes mellitus (274259154687374) Type 2 diabetes mellitus with hypoglycemia without coma (E11.649) Active confirmed Problem Hyperglycemia due to type 2 diabetes mellitus (235965916547778) Type 2 diabetes mellitus with hyperglycemia (E11.65) Active confirmed Problem Type II diabetes mellitus without complication (692520207) Type 2 diabetes mellitus without complications (E11.9) Active confirmed Problem Hypoglycemia (677553449) Hypoglycemia, unspecified (E16.2) Active confirmed Problem Primary hyperparathyroidism (50509741) Primary hyperparathyroidism (E21.0) Active confirmed Problem Hyperparathyroidism (99626366) Hyperparathyroidism, unspecified (E21.3) Active confirmed Problem Obesity (818126903) Obesity, uns pecified (E66.9) Active confirmed Problem Insomnia (567012100) Insomnia du e to medical condition (G47.01) Active confirmed Problem Age-related osteoporosis (217080112) Age-related osteoporosis without current pathological fracture (M81.0) Active confirmed Problem Chronic fatigue syndrome (disorder) (29891405) Chronic fatigue, unspecified (R53.82) Active confirmed Problem Dyslipidemia (830748256) Dyslipidemia (E78.5) Active confirmed Vital Signs Heart Rate 63 /min 05/30/2024 Oximetry 97 % 05/30/2024 Height-cm 160.02 cm 05/30/2024 Blood pressure diastolic 80 mm Hg 05/30/2024 Weight-kg 85.64 kg 05/30/2024 Height 63 in 05/30/2024 Blood pressure systolic 132 mm Hg 05/30/2024 Weight 188.8 lbs 05/30/2024 BMI 33.44 kg/m2 05/30/2024 Encounters Encounter Location Date Provider Diagnosis [facility] [address] [place], [place] [id number] 12/22/2023 Provider Migration Type 2 diabetes mellitus with hypoglycemia without coma E11.649 and Insomnia due to medical condition G47.[address] Aragon [address] [place] [phone] 07/23/2023 Kathi Aragon Age-related osteoporosis without current pathological fracture M81.[address] Aragon [address] [place] [phone] 11/07/2023 Kathi Aragon Type 2 diabetes mellitus with hyperglycemia E11.65 and Type 2 diabetes mellitus with hypoglycemia without coma E11.[address] Aragon [address] [place] [phone] 01/21/2024 Kathi Aragon Type 2 diabetes mellitus without complications E11.9 ; Hypoglycemia, unspecified E16.2 ; Age-related osteoporosis without current pathological fracture M81.0 ; Hyperlipidemia, unspecified E78.5 ; Obesity, unspecified E66.9 and Dietary counseling and surveillance Z71.[address] Aragon [address] [place] [phone] 05/30/2024 Kathi Aragon Type 2 diabetes mellitus without complications E11.9 ; Age-related osteoporosis without current pathological fracture M81.0 ; Dyslipidemia E78.5 ; Hyperparathyroidism, unspecified E21.3 and Dietary counseling and surveillance Z71.[address] Aragon [address] [place] [phone] 10/04/2023 Kathi CARRERA [facility] [address] [place] [phone] 10/12/2023 Kathi Aragon [facility] [address] [place] [phone] 10/12/2023 Kathi Aragon [facility] [address] [place] [phone] 10/27/2023 Kathi Aragon Other postherpetic nervous system involvement B02.[address] Aragon [address] [place] [phone] 10/30/2023 Kathi Aragon Postherpetic trigeminal neuralgia B02.22 [facility] [address] [place] [phone] 11/05/2023 Kathi Aragon [address] [place] [phone] 11/06/2023 Kathi CARRERA [facility] [address] [place], [place] [phone] 11/07/2023 Kathi Aragon Insomnia due to medical condition G47.[address] Ar[address] [place], [place] [phone] 12/20/[address] Ar[facility] [address] [place], [place] [phone] 12/21/2023 Kathi Aragon Type 2 diabetes mellitus with hypoglycemia without coma E11.[address] Aragon [address] [place], [place] [phone] 01/21/2024 Kathi Aragon [address] [place] [address] 01/22/[address] [place], [place] [phone] 02/25/[address] [place], [place] [phone] 03/03/[address] [place], [place] [phone] 06/02/[address] [place], [place] [phone] 06/17/2024 Kathi CARRERA [place] [phone] 06/23/2024 Kathi CARRERA [address] [phone] 07/07/2024 Kathi Aragon Assessments Encounter Date Diagnosis (ICD Code) Assessment Notes Treatment Notes Treatment Clinical Notes Section Notes 07/23/2023 Age-related osteoporosis without current pathological fracture (ICD-10 - M81.0) Patient tolerated prolia injection without site reaction or pain. Will repeat in 6 months in mid Jan 2024. 10/27/2023 Other postherpetic nervous system involvement (ICD-10 - B02.29) 10/30/2023 Postherpetic trigeminal neuralgia (ICD-10 - B02.22) 11/07/2023 Type 2 diabetes mellitus with hyperglycemia (ICD-10 - E11.65) 11/07/2023 Insomnia due to medical condition (ICD-10 - G47.01) 12/21/2023 Type 2 diabetes mellitus with hypoglycemia without coma (ICD-10 - E11.649) 12/22/2023 Type 2 diabetes mellitus with hypoglycemia without coma (ICD-10 - E11.649) 12/22/2023 Insomnia due to medical condition (ICD-10 - G47.01) 01/21/2024 Type 2 diabetes mellitus without complications (ICD-10 - E11.9) 05/30/2024 Type 2 diabetes mellitus without complications (ICD-10 - E11.9) 05/30/2024 Age-related osteoporosis without current pathological fracture (ICD-10 - M81.0) 01/21/2024 Hypoglycemia, unspecified (ICD-10 - E16.2) 11/07/2023 Type 2 diabetes mellitus with hypoglycemia without coma (ICD-10 - E11.649) 05/30/2024 Dyslipidemia (ICD-10 - E78.5) 05/30/2024 Hyperparathyroid ism, unspecified (ICD-10 - E21.3) 01/21/2024 Age-related osteoporosis without current pathological fracture (ICD-10 - M81.0) 01/21/2024 Hyperlipidemia, unspecified (ICD9-CM - E78.5) 05/30/2024 Dietary counseling and surveillance (ICD-10 - Z71.3) Spent 15 minutes preventative counseling patient on dietary recommendations and changes in setting of hyperglycemia- need to restrict refined sugars and processed foods and incorporate up to 150 minutes of moderate level activity weekly. 01/21/2024 Obesity, unspecified (ICD-10 - E66.9) 01/21/2024 [...] - Investigate billing and coding issues with [facility] - Obtain updated lab work once [...] examination and/or evaluation, counseling and educating the patient/family/caregiv er, ordering medications, tests, or procedures, referring and communicating with other health career development coordinator/teacher, documenting clinical information in the electronic or other health record, independently interpreting results and communicating results to the patient/family/caregiv er and care coordinating patient plan. Patient alert and oriented x 4 and aware of discussion noted above and in agreeance to plan in management of hypoglycemia in setting of well controlled type 2 DM, dyslipidemia, vit D def and hypothyroidism, weight management. 05/30/2024 Other Assessment and Plan: 1. Secondary Hyperparathyroidism- Refer to Dr. Larry for evaluation of parathyroidectomy as she has chronic kidney stones and concern for early renal ds- Patient to mention kidney stones and overactive parathyroid glands at upcoming appointment with Dr. Larry in June- Consider further workup for primary hyperparathyroidism 2. Hypothyroidism- Continue levothyroxine 88 mcg daily 3. Diabetes Mellitus- Continue current diabetes management- Advised patient to stay hydrated, especially with approaching summer 4. Musculoskeletal Spasms- Increase magnesium to 500 mg if needed for symptom relief 5. Non-alcoholic Steatohepatitis ([place])- Continue monitoring liver function 6. Hyperlipidemia- Continue current lipid management 7. Nephrolithiasis- Reinforce dietary recommendations to reduce meat intake- Consider parathyroidectomy to help with kidney stone prevention (see secondary hyperparathyroidism plan) Spent 25 minutes preparing to see the patient (ex review of tests/chart), obtaining and / or reviewing separately obtained history, performing a medically appropriate examination and/or evaluation, counseling and educating the patient/family/caregiv er, ordering medications, tests, or procedures, referring and communicating with other health career development coordinator/teacher, documenting clinical information in the electronic or other health record, independently interpreting results and communicating results to the patient/family/caregiv er and care coordinating patient plan. Patient alert and oriented x 4 and aware of discussion noted above and in agreeance to plan in management of hyperparathyroidism, osteoporosis, dyslipidemia and well controlled type 2 dM/with hypoglycemia, getting eversense placement-CGM showing 85% in range. Plan Of Treatment Pending Test Test Name Order Date CORTISOL, TOTAL (367) 07/14/2024 COMPREHENSIVE METABOLIC PANEL 03/30/2023 VITAMIN D, 25-HYDROXY, LC/MS/MS 03/30/19 24 T3, FREE 03/30/2023 HEMOGLOBIN A1c 03/30/2023 CBC (INCLUDES DIFF/PLT) 03/30/2023 MICROALBUMIN, RANDOM URINE (W/CREATININE ) 03/30/2023 VITAMIN B12/FOLATE, SERUM PANEL 03/30/19 24 T4, FREE 03/30/2023 TSH 03/30/2023 Next Appt Details Provider Name:Kathi Aragon, 09:20:00 AM, [address] [place] [address], [phone], Provider Name:Kathi Aragon, 11:00:00 AM, [address] [place] [address], [phone], Insurance Providers Payer Name Payer Address Payer Phone Subscriber Number Group Number Insured Name Patient Relationship to Insured Coverage Start Date Coverage End Date [place] [address] [address] [place], [place] [id number] Tiffanie Ruiz Self - patient is the insured [facility] [address] [address] [place] [address] [id number] Tiffanie Ruiz Self - patient is the insured Medical (General) History Medical History History ICD Code HYPOGLYCEMIA type 2 DM hypothyroidism osteoporosis Surgical History Surgery Date(Month/Year) gastric bypass
--- OUTSIDE RECORDS SUMMARY | 2024-07-17 11:18 | XMS_ITS | Patient Health Record ---
Author Organization [facility] Address [address] [address] Care Team Providers Care Engineer Chief Name Role Phone Kathi Aragon Primary Care Provider [phone] Migration, Provider Unavailable Unavailable Allergies Allergen (clinical [...] date:09/04/2023 08:01:57 PM Interpretation: Performing Lab:[facility], [address] [place], [address] Law Nathan MD Notes/Report: FASTING:YES PATIENT REFUSED SOME TESTING; PATIENT ENCOURAGED TO RETURN. FASTING: YES ACTH, PLASMA Reviewed date:09/09/2023 07:11:40 PM Interpretation: Performing Lab:[facility], [address] , [place], [address] Donnie Coelho M.D.,PhD Notes/Report: FASTING:YES PATIENT REFUSED SOME TESTING; PATIENT ENCOURAGED TO RETURN. FASTING: YES T3, FREE Reviewed date:09/04/2023 08:03:42 PM Interpretation: Performing Lab:[facility], [address] [place], [address] Law Nathan MD Notes/Report: FASTING:YES PATIENT REFUSED SOME TESTING; PATIENT ENCOURAGED TO RETURN. FASTING: YES HEMOGLOBIN A1c Reviewed date:09/09/2023 07:11:18 PM Interpretation: Performing [facility], [address], [place], [address] LynnetteJuani Nathan Notes/Report: FASTING:YES PATIENT REFUSED SOME TESTING; PATIENT ENCOURAGED TO RETURN. FASTING: YES CBC (INCLUDES DIFF/PLT) Reviewed date:09/04/2023 08:02:20 PM Interpretation: Performing Lab:[facility], [address], [place], [address] Law Nathan MD Notes/Report: FASTING:YES PATIENT REFUSED SOME TESTING; PATIENT ENCOURAGED TO RETURN. FASTING: YES IRON AND TOTAL IRON BINDING CAPACITY Reviewed date:09/04/2023 08:03:16 PM Interpretation: Performing Lab:[facility], [address], [place], [address] Law Nathan MD Notes/Report: FASTING:YES PATIENT REFUSED SOME TESTING; PATIENT ENCOURAGED TO RETURN. FASTING: YES LIPID PANEL Reviewed date:09/04/2023 08:01:39 PM Interpretation: Performing Lab:[facility], [address], [place], [address] Law Nathan MD Notes/Report: FASTING:YES PATIENT REFUSED SOME TESTING; PATIENT ENCOURAGED TO RETURN. FASTING: YES T4, FREE Reviewed date:09/04/2023 08:03:25 PM Interpretation: Performing Lab:[facility], [address], [place], [address] Law Nathan MD Notes/Report: FASTING:YES PATIENT REFUSED SOME TESTING; PATIENT ENCOURAGED TO RETURN. FASTING: YES TSH Reviewed date:09/04/2023 08:03:33 PM Interpretation: Performing Lab:[facility], [address] [place], [address] Law Nathan MD Notes/Report: FASTING:YES PATIENT REFUSED [...] review and pick correct strength-formula tion from [employer] options. If intended option is not shown, discontinue and re-order from Quick Search* 06/15/2023 Not-Taking Denosumab 60 MG/ML INJECT 60 MG SUBCUTANEOUSLY EVERY 6 MONTHS for 1 DAYS *Please review and pick correct strength-formula tion from [employer] options. If intended option is not shown, [...] review and pick correct strength-formula tion from [employer] options. If intended option is not shown, [...] review and pick correct strength-formula tion from [employer] options. If intended option is not shown, discontinue and re-order from Quick Search* Not-Taking HYDROcodone Bitartrate ER 10 MG 1 cap(s) orally every 12 hours 1 TABLET EVERY 6 HOURS FOR PAIN Active Estradiol 1 MG/1 G (0.1%) 1 EA TRANSDERMALLY ONCE A DAY *Please review and pick correct strength-formula tion from [employer] options. If intended option is not shown, discontinue and re-order from Quick Search* Active Problems Problem Type SNOMED Code ICD Code Onset Dates Problem Status W/U Status Risk Notes Problem Hyperglycemia due to type 2 diabetes mellitus (725450156426498) Type 2 diabetes mellitus with hyperglycemia (E11.65) Active confirmed Problem Hyperlipidemia (76037710) Hyperlipidemia, unspecified (E78.5) Active confirmed Problem Type II diabetes mellitus without complication (805979228) Type 2 diabetes mellitus without complications (E11.9) Active confirmed Problem Hypothyroidism (72707903) Hypothyroidism, unspecified (E03.9) Active confirmed Problem Obesity (431388450) Obesity, unspecified (E66.9) Active confirmed Problem Post-herpetic trigeminal neuralgia (81780673) Postherpetic trigeminal neuralgia (B02.22) Active confirmed Problem Postherpetic neuralgia (6654968) Other postherpetic nervous system involvement (B02.29) Active confirmed Problem Hypoglycemia due to type 2 diabetes mellitus (359140648179514) Type 2 diabetes mellitus with hypoglycemia without coma (E11.649) Active confirmed Problem Hypoglycemia (090927345) Hypoglycemia, unspecified (E16.2) Active confirmed Problem Insomnia (719385376) Insomnia due to medical condition (G47.01) Active confirmed Problem Age-related osteoporosis (942680781) Age-related osteoporosis without current pathological fracture (M81.0) Active confirmed Problem Chronic fatigue syndrome (disorder) (40321725) Chronic fatigue, unspecified (R53.82) Active confirmed Vital Signs Heart Rate 73 /min 01/21/2024 Blood pressure diastolic 78 mm Hg 01/21/2024 Height 63 in 01/21/2024 Blood pressure systolic 138 mm Hg 01/21/2024 Weight 188.4 lbs 01/21/2024 BMI 33.37 kg/m2 01/21/2024 Encounters Encounter Location Date Provider Diagnosis [facility] - Kathi Aragon [address] [place] [address] 01/21/2024 Kathi Erasmo Type 2 diabetes mellitus without complications E11.9 ; Hypoglycemia, unspecified E16.2 ; Age-related osteoporosis without current pathological fracture M81.0 ; Hyperlipidemia, unspecified E78.5 ; Obesity, unspecified E66.9 and Dietary counseling and surveillance Z71.3 [facility] [address] [place] [address] 12/22/2023 Provider Migration Type 2 diabetes mellitus with hypoglycemia without coma E11.649 and Insomnia due to medical condition G47.01 [facility] Kathi Aragon [address] [place] [address] 07/23/2023 Kathi Erasmo Age-related osteoporosis without current pathological fracture M81.0 [facility] Kathimae [address] [place] [address] 11/07/2023 Kathi Aragon Type 2 diabetes mellitus with hyperglycemia E11.65 and Type 2 diabetes mellitus with hypoglycemia without coma E11.649 [facility] - Kathi Aragon [address] [place] [address] 10/04/2023 Kathi Aragon [facility] [address] [place] [address] 10/12/2023 Kathi Aragon [facility] [address] [place] [address] 10/12/2023 Kathi Aragon [facility] [address] [place] [address] 10/27/2023 Kathi Aragon Other postherpetic nervous system involvement B02.29 [facility] - Kathi Aragon [address] [place] [address] 10/30/2023 Kathi Aragon Postherpetic trigeminal neuralgia B02.22 [facility] [address] [place] [address] 11/05/2023 [facility] - Kathi Aragon [address] [place] [address] 11/06/2023 Kathi Aragon [facility] [address] [place] [address] 11/07/2023 Kathi Aragon Insomnia due to medical condition G47.01 [facility] - Kathi Aragon [address] [place] [address] 12/20/2023 [facility] - Kathi Aragon [address] [place] [address] 12/21/2023 Kathi Aragon Type 2 diabetes mellitus with hypoglycemia without coma E11.649 [facility] - Kathi Aragon [address] [place] [address] 01/21/2024 [facility] - Kathi Aragon [address] [place] [address] 01/22/2024 Kath[facility] - Kathi Aragon [address] [place] [address] 02/25/2024 Kathi [facility] - Kathi Aragon [address] [place] [address] 03/03/2024 Kathi Aragon [facility] Encounter Date Diagnosis (ICD Code) Assessment [...] - Investigate billing and coding issues with [facility] - Obtain updated lab work once [...] examination and/or evaluation, counseling and educating the patient/family/patient care technician, ordering medications, tests, or procedures, referring and communicating with other health medicare interviewer, documenting clinical information in the electronic or other health record, independently interpreting results and communicating results to the patient/family/patient care technician and care coordinating patient plan. Patient alert [...] Date Coverage End Date Medicare [address] [address] [place] [address] [id number] Tiffanie Ruiz Self - patient is the insured [facility] [address] [address] [place] [address] [id number] Tiffanie Ruiz Self - patient is the insured Medical (General) History Medical History History ICD Code HYPOGLYCEMIA type 2 DM hypothyroidism osteoporosis Surgical History Surgery Date(Month/Year) gastric bypass
--- OUTSIDE RECORDS SUMMARY | 2024-07-17 11:18 | XMS_ITS | Clinical Summary ---
Author Organization [facility] Address [address] [place] [address] Care Team Providers Care Web Site Admin Name Role Phone Jona Bravo MD [...] 05/10/2021 Degenerative cervical spinal stenosis 09/12/2019 intermediate frame tender (current) use of opiate analgesic 08/2019 Cervical radiculopathy 09/12/2019 Cervicalgia 09/12/2019 S/P gastric bypass 06/19/2018 Overview (12/26/2019): 06/19/18 Laparoscopic Judy-en-Y Gastric Bypass Chronic right-sided low back pain without sciati ca 05/02/2018 Sacroiliitis (CMS/HCC) - Right 05/02/2018 DDD (degenerative disc disease), lumbar 05/03/19 Actinic keratosis 04/11/2018 Assessment & Plan (04/11/2018 2:20 PM PET CARETAKER): - Location/s: Face - Imiquimod Rx - [...] Description 05/29/2024 10:30 AM CDT Office Visit [facility] [address] [place] [address] [address] [place] [address] Kendrick Hernandez MD MEREDITH (obstructive sleep apnea) (Primary Dx); Psychophysiological insomnia; Hypersomnia with sleep apnea; Obesity (BMI 30.0-34.9) 05/29/2024 Orders Only [facility] [address] [place] [address] [address], [place] [address] Kendrick Hernandez MD Entrapment of left ulnar nerve (Primary Dx) 05/29/2024 Telephone [facility] [address] [place] [address] [address] [place] [address] Kendrick Hernandez MD 05/28/2024 4:26 PM CDT - 05/28/2024 11:59 PM CDT Hospital Encounter [facility] [address] [place] [address] Screening mammogram, encounter for Discharge Disposition: Discharge to home or self care 05/21/2024 7:00 PM CDT - 05/21/2024 11:59 PM CDT Hospital Encounter [facility] [address] [place] [address] MEREDITH (obstructive sleep apnea) Discharge Disposition: Discharge [...] attend chur ch or restorationism services? Never 10/13/2021 Do you belong to any clubs o r organizations such as zoroastrianism groups, unions, fraternal or athletic groups, or [...] place to sleep or slept in a senior living (including now)? No 10/13/2021 PHQ-9 Answer Date [...] on file Legal Sex Female 12:46 AM PET CARETAKER Gender Identity Female 04/08/2019 6:15 AM PET CARETAKER Sexual Orientation Straight 04/08/2019 6: 15 AM PET CARETAKER Occupation Industry Job Start Date Job End [...] 36.2 C (97.2 F) 01/07/2024 10:39 AM PET CARETAKER Respiratory Rate 18 01/07/2024 6:00 PM PET CARETAKER Oxygen Saturation 98% 05/29/2024 10:09 AM CDT [...] history exists Medical Devices Implanted Type Area Industrial Electrical Technician Device Identifier Shelf Expiration Date Model / Serial / Lot [employer] 180-223 Contour 6fr 26cm Large Inner Lumen Low Profile Bladder Lei Taper Latex Free - [id number] Implanted:Qty: 1 on 04/23/2018 by Christopher Her MD at [facility] Stent Right: Ureter [place] [employer] 11/19/2020 180-223 / / [id number] Plates Screws N/A: Neck [employer] Lead Neurostimulator Sleep Apnea Thoracic Permanent Respiratory Sensing Inspire 43cm 4340 - [id number] - [id number] Implanted:Qty: 1 on 01/01/2024 by Caren Abraham MD at [facility] N/A: Chest [employer] 07/21/2026 4340 / [id number] / [employer] Inspire 3 Electrode Cuff Tunnel José Lead Neurostimulator Sterile 4063 - [id number] - [id number] Implanted:Qty: 1 on 01/01/2024 by Caren Abraham MD at [facility] N/A: Neck [employer] 01/22/2026 4063 / [id number] / [employer] Inspire Generator 3028 - [id number] - [id number] Implanted:Qty: 1 on 01/01/2024 by Caren Abraham MD at [facility] N/A: Chest [employer] 07/22/2026 3028 / [id number] / Procedures Procedure Name Priority Date/Time Associated Diagnosis Comments SCREENING MAMMOGRAM BILATERAL W DANILO Schedule Routine, Read Routine (OP Routine) 05/28/2024 4:41 PM CDT Screening mammogram, encounter for PSG (SIMPLE) Routine 05/22/2024 8:42 AM CDT MEREDITH (obstructive sleep apnea) EGFR STAT 01/07/2024 11:11 AM PET CARETAKER HEMOGLOBIN A1C Routine 12/24/2023 10:56 AM PET CARETAKER Type 2 diabetes mellitus with other specified complication, unspecified whether long distance billing operator insulin use (HCC) Pre-op testing DEXA AXIAL [...] or continued 5.Avoid alcohol sedatives and other PROFESSIONAL FEE CODER depression that may worsen sleep apnea and [...] Re sult * eGFR (01/07/2024 11:11 AM PET CARETAKER) eGFR >90 >=60 mL/min/1. 73 m2 Comment: [...] reviewed 2020. Blood 01/07/2024 11:1 1 AM PET CARETAKER 01/07/2024 11:14 AM PET CARETAKER us Ayla Ambrose MD LAB BLOOD ORDERABLE S Final Result [facility] Department of Laboratories [place] [id number] * Hemoglobin A1c (12/24/2023 10:56 AM PET CARETAKER) Hgb A1C 5.0 4.0 - 5.6 % Estimated Average Glucose 97 mg/dL [facility] Comment: The ADA recommends reporting an estimated Average Glucose (eAG) with all Hemoglobin A1c results using the equation derived from a study of 507 normal and diabetic adults. Minority populations were underrepresented and children were not included. (Diabetes Care 31:6498-9874, 2008). The eAG is not equivalent to a fasting glucose. Blood 12/24/2023 10:5 6 AM PET CARETAKER 12/24/2023 11:08 AM PET CARETAKER us Ivet Hoyos NP LAB BLOOD ORDERABLES Final Res ult [facility] [address] [place] [address] * Dexa Axial and Forearm Bone Density Scan (09/08/2022 1:34 PM CDT) Anatomical Region Laterality Modality Wrist, Body N/A Other 09/09/2022 6:09 AM CDT Narrative 09/09/2022 6:11 AM CDT EXAM DESCRIPTION: DEXA AXIAL AND FOREARM BONE DENSITY SCAN REASON FOR STUDY: 62 y/o year old F with given history of: Hyperparathyroidism. Postmenopausal status. Osteoporosis. Industrial Electrical Technician/Model: Tappr Discovery SL (S/N [id number]) CLINICAL INFORMATION: Current height: 63.5 inches Maximum [...] Cecy Ratliff M.D. TW: TW Report ID: [id number] Reading Location: [id number] Procedure Note Cecy Ratliff MD - 09/09/2022 EXAM DESCRIPTION: DEXA AXIAL AND FOREARM BONE DENSITY SCAN REASON FOR STUDY: 62 y/o year old F with given history of: Hyperparathyroidism. Postmenopausal status. Osteoporosis. Industrial Electrical Technician/Model: [employer] SL (S/N [id number]) CLINICAL INFORMATION: Current height: 63.5 inches Maximum [...] Cecy Ratliff M.D. TW: TW Report ID: [id number] Reading Location: [place] [address] Dylan Raul To MD IM DXA PROCEDURES Final Result * Lipid panel (10/10/2021 1:52 PM CDT) Cholesterol 139 30 - 199 mg/dL [facility] Comment: Interpretive Data Ages < [...] on 2017. Triglycerides 36 <=149 mg/dL [facility] Comment: Interpretive Data Ages < [...] on 2017. HDL 72 >=40 mg/dL [facility] Comment: Interpretive Data Ages < or [...] 2017. LDL, calculated 60 <=129 mg/dL [facility] Comment: Interpretive Data Ages < or [...] revised on 2017. Non-HDL Cholesterol 67 mg/dL [facility] Comment: Interpretive Data Ages < [...] Chol/HDL ratio 2 [facility] Blood 10/10/2021 1:52 PM CDT 10/10/2021 2:07 PM CDT us Mauricio Chaudhary MD LAB BLOOD ORDERABLES Final Result [facility] [place] [address] from Last 3 Months or Most Recently Relevant to Health Maintenance [place] [address] [facility] [place] Advance Directives For more information, please contact: [phone] * Full Code (Latest Code Status on File) Date Activated Date Inactivated Comments 10/10/2021 5:37 PM 10/11/2021 8:50 PM * Full Code Date Activated Date Inactivated Comments 08/18/2017 6:39 PM 08/22/2017 3:42 PM Care Teams Web Site Admin Relationship Specialty Start Date End Date Jona Bravo MD PCP - General 05/05/16 Desire Sams, BRICE Registered Nurse 04/03/17 Roscoe Mccollum MD [address] [place] [address] [address] [place] [address] Anesthesiologist Pain Management 12/21/21
--- OUTSIDE RECORDS SUMMARY | 2024-07-17 11:18 | XMS_ITS | Encounter Summary ---
Author Organization [facility] Address [address] [place] [address] Phone Care Team Providers Care Railroad Track Mechanic Name Role Phone Jona Bravo MD Primary Care Provider + Desire Sams RN Unavailable Un available Pooja [place] LCSW Unavailable [phone] Roscoe Mccollum MD Unavailable [phone] Encounter Details Date Type Department Care Team [...] on file Legal Sex Female 12:46 AM EXPERIENCE DESIGN DIRECTOR Gender Identity Female 04/08/2019 6:15 AM EXPERIENCE DESIGN DIRECTOR Sexual Orientation Straight 04/08/2019 6: 15 AM EXPERIENCE DESIGN DIRECTOR Occupation Industry Job Start Date Job End [...] on filedocumented in this encounter Care Teams Railroad Track Mechanic Relationship Specialty Start Date End Date Jona Bravo MD PCP - General 05/05/16 Desire Sams, RN Registered Nurse 04/03/17 Pooja [place], [facility] [address] [facility] ([facility]) Mailop [phone] [place] [address] [facility] Outpatient Appliance Service Technician 10/12/21 11/09/21 Roscoe Mccollum MD [address] [facility] [address] [place] [address] Anesthesiologist Pain Management 12/21/21 documented as of this encounter
--- OUTSIDE RECORDS SUMMARY | 2024-07-17 11:18 | XMS_ITS | Encounter Summary ---
Author Organization [facility] Address [address] [place] [address] Phone Care Team Providers Care Nurse Technician Name Role Phone Jona Bravo MD Primary Care Provider + Desire Sams RN Unavailable Un available Pooja [place] LCSW Unavailable [phone] Roscoe Mccollum MD Unavailable [phone] Encounter Details Date Type Department Care Team [...] on file Legal Sex Female 12:46 AM TEST DESKMAN Gender Identity Female 04/08/2019 6:15 AM TEST DESKMAN Sexual Orientation Straight 04/08/2019 6: 15 AM TEST DESKMAN Occupation Industry Job Start Date Job End [...] on filedocumented in this encounter Care Teams Nurse Technician Relationship Specialty Start Date End Date Jona Bravo MD PCP - General 05/05/16 Desire Sams, RN Registered Nurse 04/03/17 Pooja [place], [facility] [address] [facility] ([facility]) Mailstop [phone] [place] [address] [facility] Outpatient Water Quality Analyst 10/12/21 11/09/21 Roscoe Mccollum MD [address] [place] [address] [address] Anesthesiologist Pain Management 12/21/21 documented as of this encounter
--- OUTSIDE RECORDS SUMMARY | 2024-07-17 11:18 | XMS_ITS | Referral Summary ---
Author Organization [facility] Address [address] [place] [address] Care Team Providers Care Agile Qa Tester Name Role Phone Jona Bravo MD Primary Care Provider + Desire Sams RN Unavailable Un available Roscoe Mccollum MD Unavailable [phone] Encounters Date Type Department Care Team Description 05/29/2024 Orders Only [facility] [address] [place] [address] [address] [place] [id number] Kendrick Hernandez MD Entrapment of left ulnar nerve (Primary Dx) 05/29/2024 Telephone [facility] [address] [place] [address] [address] [place] [address] Kendrick Hernandez MD 05/29/2024 10:30 AM CDT Office Visit [facility] [address] [place] [address] [address] [place] [phone] Kendrick Hernandez MD MEREDITH (obstructive sleep apnea) (Primary Dx); Psychophysiological insomnia; Hypersomnia with sleep apnea; Obesity (BMI 30.0-34.9) 05/28/2024 4:26 PM CDT - 05/28/2024 11:59 PM CDT Hospital Encounter [facility] [address] [place] [address] Screening mammogram, encounter for Discharge Disposition: Discharge to home or self care 05/21/2024 7:00 PM CDT - 05/21/2024 11:59 PM CDT Hospital Encounter [facility] [address] [place] [address] MEREDITH (obstructive sleep apnea) Discharge Disposition: Discharge [...] pain 05/10/2021 Degenerative cervical spinal stenosis 09/12/2019 jail (current) use of opiate analgesic 08/2019 Cervical radiculopathy 09/12/2019 Cervicalgia 09/12/2019 S/P gastric bypass 06/19/2018 Overview (12/26/2019): 06/19/18 Laparoscopic Judy-en-Y Gastric Bypass Chronic right-sided low back pain without sciati ca 05/02/2018 Sacroiliitis (CMS/HCC) - Right 05/02/2018 DDD (degenerative disc disease), lumbar 05/03/19 Actinic keratosis 04/11/2018 Assessment & Plan (04/11/2018 2:20 PM SCRUM MASTER): - Location/s: Face - Imiquimod Rx - [...] often do you attend [facility] or oriental orth[facility] services? Never 10/13/2021 Do you belong to [...] place to sleep or slept in a nursing home (including now)? No 10/13/2021 PHQ-9 Answer [...] on file Legal Sex Female 12:46 AM SCRUM MASTER Gender Identity Female 04/08/2019 6:15 AM SCRUM MASTER Sexual Orientation Straight 04/08/2019 6: 15 AM SCRUM MASTER Occupation Industry Job Start Date Job End Date On Disability Not on file Not on file Not on file Last Filed Vital Signs Vital Sign Reading Time Taken Comments Blood Pressure 141/79 05/29/2024 10:09 AM CDT Pulse 65 05/29/2024 10:09 AM CDT Temperature 36.2 C (97.2 F) 01/07/2024 10:39 AM SCRUM MASTER Respiratory Rate 18 01/07/2024 6:00 PM SCRUM MASTER Oxygen Saturation 98% 05/29/2024 10:09 AM CDT Inhaled Oxygen Concentration - - Weight 85.5 kg (188 lb 6.4 oz) 05/29/2024 10:09 AM CDT Height 165.1 cm (5' 5) 05/29/2024 10:09 AM CDT Body Mass Index 31.35 05/29/2024 10:09 AM CDT Plan of Treatment Not on file Medical Devices Implanted Type Area Glass Edger Device Identifier Shelf Expiration Date Model / Serial / Lot [employer] Cruzito 180-223 Contour 6fr 26cm Large Inner Lumen Low Profile Bladder Lei Taper Latex Free - [id number] Implanted:Qty: 1 on 04/23/2018 by Christopher Her MD at [facility] Stent Right: Ureter [employer] 11/19/2020 180-223 / / [id number] Plates Screws N/A: Neck [employer] Lead Neurostimulator Sleep Apnea Thoracic Permanent Respiratory Sensing Inspire 43cm 4340 - [id number] - [id number] Implanted:Qty: 1 on 01/01/2024 by Caren Abraham MD at [facility] N/A: Chest [employer] 07/21/2026 4340 / [id number] / [employer] Inspire 3 Electrode Cuff Tunnel José Lead Neurostimulator Sterile 4063 - [id number] - [id number] Implanted:Qty: 1 on 01/01/2024 by Caren Abraham MD at [facility] N/A: Neck [employer] 01/22/2026 4063 / [id number] / [employer] Inspire Generator 3028 - [id number] - [id number] Implanted:Qty: 1 on 01/01/2024 by Caren Abraham MD at [facility] N/A: Chest [employer] 07/22/2026 3028 / [id number] / Procedures Procedure Name Priority Date/Time Associated Diagnosis Comments SCREENING MAMMOGRAM BILATERAL W DANILO Schedule Routine, Read Routine (OP Routine) 05/28/2024 4:41 PM CDT Screening mammogram, encounter for PSG (SIMPLE) Routine 05/22/2024 8:42 AM CDT MEREDITH (obstructive sleep apnea) EGFR STAT 01/07/2024 11:11 AM SCRUM MASTER HEMOGLOBIN A1C Routine 12/24/2023 10:56 AM SCRUM MASTER Type 2 diabetes mellitus with other specified complication, unspecified whether longterm insulin use (HCC) Pre-op testing DEXA AXIAL [...] or continued 5.Avoid alcohol sedatives and other SALT MANAGER depression that may worsen sleep apnea [...] Re sult * eGFR (01/07/2024 11:11 AM SCRUM MASTER) eGFR >90 >=60 mL/min/1. 73 m2 Comment: [...] reviewed 2020. Blood 01/07/2024 11:1 1 AM SCRUM MASTER 01/07/2024 11:14 AM SCRUM MASTER us Ayla Ambrose MD LAB BLOOD ORDERABLE S Final Result [facility] Department [place] [address] * Hemoglobin A1c (12/24/2023 10:56 AM SCRUM MASTER) [facility] Signature Hgb A1C 5.0 4.0 - 5.6 % Estimated Average Glucose 97 mg/dL [facility] Comment: The ADA recommends reporting an estimated Average Glucose (eAG) with all Hemoglobin A1c results using the equation derived from a study of 507 normal and diabetic adults. Minority populations were underrepresented and children were not included. (Diabetes Care 31:3738-0348, 2008). The eAG is not equivalent to a fasting glucose. Blood 12/24/2023 10:5 6 AM SCRUM MASTER 12/24/2023 11:08 AM SCRUM MASTER us Ivet Hoyos NP LAB BLOOD ORDERABLES Final Res ult [facility] [address] Department [place] [address] * Dexa Axial and Forearm Bone Density Scan (09/08/2022 1:34 PM CDT) Anatomical Region Laterality Modality Wrist, Body N/A Other 09/09/2022 6:09 AM CDT Narrative 09/09/2022 6:11 AM CDT EXAM DESCRIPTION: DEXA AXIAL AND FOREARM BONE DENSITY SCAN REASON FOR STUDY: 62 y/o year old F with given history of: Hyperparathyroidism. Postmenopausal status. Osteoporosis. Glass Edger/Model: ReferStar SL (S/N [id number]) CLINICAL INFORMATION: Current height: 63.5 inches Maximum [...] by Cecy Ratliff M.D. TW: Report ID: [id number] Reading Location: [place] [address] Procedure Note Cecy Ratliff MD - 09/09/2022 EXAM DESCRIPTION: DEXA AXIAL AND FOREARM BONE DENSITY SCAN REASON FOR STUDY: 62 y/o year old F with given history of: Hyperparathyroidism. Postmenopausal status. Osteoporosis. Glass Edger/Model: [employer] (S/N [id number]) CLINICAL INFORMATION: Current height: 63.5 inches Maximum [...] Cecy Ratliff M.D. TW: BAKARI Report ID: [id number] Reading Location: [id number] us Dylan To MD IM DXA PROCEDURES Final Result * Lipid panel (10/10/2021 1:52 PM CDT) [facility] Cholesterol 139 30 - 199 mg/dL [facility] [...] revised on 2017. Triglycerides 36 <=149 mg/dL [facility] Comment: Interpretive Data Ages < or = [...] revised on 2017. HDL 72 >=40 mg/dL [facility] Comment: Interpretive Data Ages < or = [...] 2017. LDL, calculated 60 <=129 mg/dL [facility] Comment: Interpretive Data Ages < or = [...] on 2017. Non-HDL Cholesterol 67 mg/dL [facility] Comment: Interpretive Data Ages < or = [...] 2017. Chol/HDL ratio [address] [facility] Blood 10/10/2021 1:52 PM CDT 10/10/2021 2:07 PM CDT us Mauricio Chaudhary MD LAB BLOOD ORDERABLES Final Result [facility] [place] [address] from Last 3 Months or Most Recently Relevant to Health Maintenance Insurance MEDICARE CHOICE [facility] [place] Advance Directives For more information, please contact: [phone] * Full Code (Latest Code Status on File) Date Activated Date Inactivated Comments 10/10/2021 5:37 PM 10/11/2021 8:50 PM * Full Code Date Activated Date Inactivated Comments 08/18/2017 6:39 PM 08/22/2017 3:42 PM Care Teams Agile Qa Tester Relationship Specialty Start Date End Date Jona Bravo MD PCP - General 05/05/16 Desire Sams, RN Registered Nurse 04/03/17 Roscoe Mccollum MD [address] [place] [address] DR THAYER [address] [place] [address] Anesthesiologist Pain Management 12/21/21
--- OUTSIDE RECORDS SUMMARY | 2024-07-17 11:19 | XMS_ITS | Patient Health Record ---
Author Organization [facility] Address [address] [place] [address] Care Team Providers Care Heater Mechanic Name Role Phone Shelly HALE, Jona Primary Care Provider Dave dennis Mary Hewitt Unavailable [phone] Allergies Allergen (clinical drug ingredient) Drug/Non Drug [...] 3 mg daily - *Pick strength-form from [employer] for eRX* Active Zinc 30 mg daily oral Active Omeprazole 20 MG take 1 capsule (20 mg) by oral route once daily before a meal Oral 1 Active Biotin - daily oral *Pick strength-form from [employer] for eRX* Active MULTIPLE VITAMINS W/IRON take 1 tablet b y oral route once Oral 1 *Reorder from [employer] for eRx and Interaction Alerts* Active Levothyroxine Sodium 88 MCG take 1 capsule (88 mcg) by oral route once daily Oral 1 Active Eszopiclone 3 MG take 1 tablet (3 mg) by oral route once daily at bedtime Oral 1 Active Xanax - - oral *Pick strength-form from [employer] for eRX* Active Pravastatin Sodium 40 MG [...] Active E-Gems - daily oral *Reorder from C[employer]pple for eRx and Interaction Alerts* Active Cymbalta 30 MG take 1 capsule (30 mg) by oral route once daily Oral 1 Active Problems Problem Type SNOMED Code ICD Code Onset Dates Problem Status W/U Status Risk Notes Problem 162051482 Rheumatoid arthritis without rheumatoid factor, multiple sites (M06.09) Active confirmed Problem 300054658 Fibromyalgia (M79.7) Active confirmed Plan Of Treatment [...] Date Coverage End Date Medicare [address] [address] [place] [address] [id number] Tiffanie Ruiz Self - patient is the insured 8 [place] [place] [address] [place] [address] [id number] Tiffanie Ruiz Self - patient is the insured [employer] - [employer] [address] [place] [address] [id number] Tiffanie Ruiz Self - patient is the insured Medical (General) History Medical History History ICD Code Depression; Fibromyalgia; Hyperlipidemia; Hypertension; Hypothyroidism; Low Back Pain; Sleep apnea;
--- OUTSIDE RECORDS SUMMARY | 2024-07-17 11:19 | XMS_ITS ---
Author Organization [facility] justice Address [address] [facility] [address] [place] [address] Care Team Providers Care Lift Truck Operator Name Role Phone Shelly HALE, Jona Primary Care Provider Unavaila Mary Trent Unavailable [phone] REASON FOR VISIT yd,f/u,cc Encounters Encounter Location Date Provider Diagnosis [facility] [address] [facility] [address] [place] [address] 02/14/2023 Mary Saul Plan Of Treatment No Information Progress Notes * Tiffanie RUIZ ADOB: (64 yo F)Acc No.[id number]:02/14/2023 Progress Notes Patient: Tiffanie DAN Appointment Provider: Fior SAUL MD :1960 A ge:63 Y S ex:Female Date:02/14/2023 [facility] Pcp:Jona Bravo MD Subjective: * Chief Complaints: * 1 . Yd,f/u,cc. * Medical History: Objective: * Vitals: Assessment: Plan: * Treatment: * Billing Information: * Visit Code: * Procedure Codes: * Electronic signature of Mary Saul MD on 07/17/2024 at 11:18 AM CDT Sign off status: Pending * Appointment Provider: Fior SAUL MD Date: 0 02/14/2023 Generated for Printi ng/Faxing/eTransmitting on: 0 07/17/2024 11:18 AM CDT
--- OUTSIDE RECORDS SUMMARY | 2024-07-17 11:19 | XMS_ITS | Encounter Summary ---
Author Organization [facility] Address [address] [place] [address] Phone Care Team Providers Care Rail Engineer Name Role Phone Jona Bravo MD Primary Care Provider Reason for Visit * Reason Comments Med Refill Encounter Details Date Type Department Care Team (Late st Contact Info) Description 11/06/2021 Refill [facility] [address] [place] [address] Janeth Betts PA [address] [place] [address] Social History Tobacco Use Types Packs/Day Years [...] Description 09/11/2024 2:20 PM CDT Office Visit [facility] [address] [place] [address] Janeth Betts PA [address] [place] [address] 10/07/2025 1:20 PM CDT Office Visit [facility] [address] [place] [address] Uche Vela MD [address] [place] [address] documented as of this encounter Visit Diagnoses Not on filedocumented in this encounter Care Teams Rail Engineer Relationship Specialty Start Date End Date Jona Bravo MD [address] [place] [phone] PCP - General Internal Medicine 06/16/19 documented as of this encounter
--- OUTSIDE RECORDS SUMMARY | 2024-07-17 11:19 | XMS_ITS | Data Portability ---
Author Organization [facility] [place] Address [address] [place] [address] Assessment Encounter Date Assessment Date Assessment LastModified by Organization Details LastModified Time 04/25/2024 04/25/2024 Annual gynecological exam performed. Patient will come back in a year unless there are new symptoms. [email or web address] Not available 04/25/2024 11:15:01 Plan of Treatment Reminders Order Date Submit Date Provider Last Modified By Organization Details Last Modified Time Details Appointments FOLLOW UP 2024 10:00A Naomi NEWELL MD Not available Not available Not available Lab testoster one, total, serum 2024 025 [facility] (Lab), [address] [place], [address], 05/02/2024 15:24:46 testoster one, free, serum 2024 025 [facility] (Lab), [address] [place], [address], 05/02/2024 15:24:46 testoster one, total, serum 2023 024 [facility] (Lab), [address] [place], [address], 01/24/2024 22:07:50 testoster one, free, serum 2023 024 [facility] (Lab), [address] [place], [address], 01/24/2024 22:07:50 CMP, serum or plasma 2023 024 [facility] (Lab), [address] [place], [address], 01/24/2024 22:07:49 Referral None recorded. Procedures None recorded. Surgeries None recorded. Imaging None recorded. Medication Orders estradiol 0.01% (0.1 mg/gram) vaginal cream 2023 025 [facility] [place], [address], 04/25/2024 11:19:11 clobetaso l 0.05 % topical ointment [email or web address] [place] [address] Pharm[facility] [address] [place], [address], 04/25/2024 11:18:58 Patient TargetsNo targets recorded. Patient InstructionsNo instructions recorded. Reason for Referral None Reported. Results Created Date Observation Date Name Description Value Unit Range Abnormal Flag Note LastModifiedBy Organization Detail LastModifiedTime 01/18/20 24 01/18/2024 CMP(C OMPRE HENSI VE METAB OLIC PANEL ) sodium 141 mmol/ L 133-14 6 Not Available [facility] (Lab) [address] [facility], [place], [address], 01/24/2024 22:07:49 01/18/20 24 01/18/2024 CMP(C OMPRE HENSI VE METAB OLIC PANEL ) potassium 4.1 mmol/ L 3.5-5. 1 Not Available [facility] (Lab) [address] [place], [address], 01/24/2024 22:07:49 01/18/20 24 01/18/2024 CMP(C OMPRE HENSI VE METAB OLIC PANEL ) chloride 105 mmol/ L 98-107 Not Available [facility] (Lab) [address] [place], [address], 01/24/2024 22:07:49 01/18/20 24 01/18/2024 CMP(C OMPRE HENSI VE METAB OLIC PANEL ) carbon dioxide 30 mmol/ L 21-31 Not Available [facility] (Lab) [address] [facility], [place], [address], 01/24/2024 22:07:49 01/18/20 24 01/18/2024 CMP(C OMPRE HENSI VE METAB OLIC PANEL ) anion gap 6 mmol/ L 4-13 Not Available [facility] (Lab) [address] [facility], [place], [address], 01/24/2024 22:07:49 01/18/20 24 01/18/2024 CMP(C OMPRE HENSI VE METAB OLIC PANEL ) blood urea nitrogen 23 mg/dL 7-25 Not Available [facility] (Lab) [address] [facility], [place], [address], 01/24/2024 22:07:49 01/18/20 24 01/18/2024 CMP(C OMPRE HENSI VE METAB OLIC PANEL ) creatinine 0.69 mg/dL 0.60-1 .30 Not Available [facility] (Lab) [address] [facility], [place], [address], 01/24/2024 22:07:49 01/18/20 24 01/18/2024 CMP(C OMPRE HENSI VE METAB OLIC PANEL ) egfrcr (CKD-epi 2020) >90 mL/mi n/1.7 3_m2 >=60 Not Available [facility] (Lab) [address] [facility], [place], [address], 01/24/2024 22:07:49 01/18/20 24 01/18/2024 CMP(C OMPRE HENSI VE METAB OLIC PANEL ) calcium 9.3 mg/dL 8.3-10 .5 Not Available [facility] (Lab) [address] [facility], [place], [address], 01/24/2024 22:07:49 01/18/20 24 01/18/2024 CMP(C OMPRE HENSI VE METAB OLIC PANEL ) glucose 81 mg/dL 70-100 Not Available [facility] (Lab) [address] [facility], [place], [address], 01/24/2024 22:07:49 01/18/20 24 01/18/2024 CMP(C OMPRE HENSI VE METAB OLIC PANEL ) protein, total 6.7 g/dL 6.4-8. 3 Not Available [facility] (Lab) [address] [facility], [place], [address], 01/24/2024 22:07:49 01/18/20 24 01/18/2024 CMP(C OMPRE HENSI VE METAB OLIC PANEL ) albumin 4.5 g/dL 3.5-5. 0 Not Available [facility] (Lab) [address] [facility], [place], [address], 01/24/2024 22:07:49 01/18/20 24 01/18/2024 CMP(C OMPRE HENSI VE METAB OLIC PANEL ) ALT 54 units /L 9-43 high Not Available [facility] (Lab) [address] [facility], [place], [address], 01/24/2024 22:07:49 01/18/20 24 01/18/2024 CMP(C OMPRE HENSI VE METAB OLIC PANEL ) alkaline phosphatase 64 units /L 34-104 Not Available [facility] (Lab) [address] [place], [address], 01/24/2024 22:07:49 01/18/20 24 01/18/2024 CMP(C OMPRE HENSI VE METAB OLIC PANEL ) AST 42 units /L 13-39 high Not Available [facility] (Lab) [address] [place], [address], 01/24/2024 22:07:49 01/18/20 24 01/18/2024 CMP(C OMPRE HENSI VE METAB OLIC PANEL ) bilirubin, total 0.7 mg/dL 0.2-1. 2 Not Available [facility] (Lab) [address] [facility], [place], [address], 01/24/2024 22:07:49 01/18/20 24 01/18/2024 TESTO STERO NE, TOTAL testosterone , total <10 NG/dL 0-75 Not Available [facility] (Lab) [address] [facility], [place], [address], 01/24/2024 22:07:50 01/18/20 24 01/18/2024 TESTO STERO [...] cteri stics have been deter mined by [facility] [place]. It has not been clear ed or appro otilia by the U.S. Food and Drug Admin istra tion. This assay has been valid ated pursu ant to the CLIA regul ation s and is used for clini fortunato purpo ses. Perfo rming Organ izati on Infor matnorbert n: Site ID: AMD Name: [facility] Addre ss: [id number] [place], [place] Direc tor: Nolan Coelho MD PhD Not Available [facility] (Lab) [address] [facility], [place], [address], 01/24/2024 22:07:50 04/26/19 25 04/25/2024 WOMEN 'S HEALT H SWAB PLUS, KATELIN bacterial vaginosis (bv), tma Negati ve negati ve Not Available [facility] (Lab) [address] [facility], [place], [address], 05/01/2024 12:36:23 04/26/19 25 04/25/2024 WOMEN 'S HEALT H SWAB PLUS, KATELIN damaris species, tma Negati ve negati ve Not Available [facility] (Lab) [address] [place], [address], 05/01/2024 12:36:23 04/26/19 25 04/25/2024 [facility]AT[facility]IN damaris glabrata, tma Negati ve negati ve Not Available [facility] (Lab) [address] [place], [address], 05/01/2024 12:36:23 04/26/19 25 04/25/2024 [facility], KATELIN trichomonas vaginalis, tma Negati ve negati ve Not Available [facility] (Lab) [address] [facility], [place], [address], 05/01/2024 12:36:23 04/26/19 25 04/25/2024 [facility], KATELIN chlamydia trachomatis, PCR Negati ve negati ve Not Available [facility] (Lab) [address] [place], [address], 05/01/2024 12:36:23 04/26/19 25 04/25/2024 [facility], KATELIN neisseria gonorrhoeae, PCR [...] softw are to deter mine BV posit migule or negat miguel statu s. The Ghislaine [...] ded in this panel . Not Available [facility] (Lab) [address] [facility], [place], [address], 05/01/2024 12:36:23 04/26/19 25 04/25/2024 IMAGE GUIDE [...] Rescr een: Gisselle Leon Speci men: Reese sanchez Pap - Image d, Vagin anahi STATE [...] greg (if appli cable ): Not Available [facility] (Lab) [address] [place], [address], 05/01/2024 12:36:23 04/26/19 25 04/25/2024 TESTO STERO NE, TOTAL testosterone , total 22 NG/dL 0-75 Not Available [facility] (Lab) [address] [place], [address], 05/02/2024 15:24:46 04/26/19 25 04/25/2024 TESTO STERO [...] by [facility] [place], [place]. It has not been clear ed or appro otilia by the U.S. Food and Drug Admin istra tion. This assay has been valid ated pursu ant to the CLIA regul ation s and is used for clini fortunato purpo ses. Perfo rming Organ izati on Infor laith n: Site ID: AMD Name: Messi Moraes ss: [id number] [address] [place], [place] Direc tor: Nolan Coelho MD PhD Not Available [facility] (Lab) [address] [facility], [place], [address], 05/02/2024 15:24:46 Result Notes None recorded. Procedures Surgical History Date Name Laterality Status Provider Name and Address Organization Details Recorded Time 11/18/[address] [facility] 12/18/2023 17:38:10 11/14/19 23 Date of Last Mammogram completed [facility] 12/18/2023 17:38:32 06/13/19 23 Most Recent Bone Density completed [facility] 12/18/2023 17:38:32 11/07/19 20 Date of Last Colonoscopy completed [facility] 12/18/2023 17:38:32 06/25/19 20 Date of Last Pap Smear completed [facility] 12/18/2023 17:38:32 06/24/[address] [facility] 12/18/2023 17:38:10 06/24/19 19 Gastric Bypass completed [facility] 12/18/2023 17:38:10 06/20/19 [address] [facility] 12/18/2023 17:38:10 06/24/[address] [facility] 12/18/2023 17:38:[address] [facility] 12/18/2023 17:38:[address] [facility] 12/18/2023 17:38:10 Dilation and Curettage completed [facility] 12/18/2023 17:38:[address] [facility] 12/18/2023 17:38:[address] [facility] 12/18/2023 17:38:[address] [facility] 12/18/2023 17:38:[address] [facility] 12/18/2023 17:38:[address] [facility] 12/18/2023 17:38:[address] [facility] 12/18/2023 17:38:[address] [facility] 12/18/2023 17:38:[address] [facility] 12/18/2023 17:38:10 Imaging Results None recorded. Procedure Notes None recorded. Medical Equipment None Reported. Allergies Allergen ID Allergen Name Allergen Category Reaction Reaction Severity Criticality Documentation Date Start Date Code Code System Note Provider Name and Address Organization Details Recorded Time 44180 codeine medicatio n Not available Not available Not available 12/18/2023 2670 RxNorm Renettarenato Maldonado [facility] 17:48:47 11336 meperidin e medicatio n Not available Not available Not available 12/18/2023 6754 RxNorm Renettarenato Maldonado [facility] 4 17:49:01 89649 levofloxa vishnu medicatio n Not available Not available Not available 12/18/2023 14403 RxNorm Renetta laguna, [facility] 4 17:49:16 35556 gabapenti n medicatio n Not available Not available Not available 12/18/2023 31098 RxNorm Renetta Maldonado [facility] 4 17:49:27 66823 adhesive tape environme nt,medica tion Not available Not available Not available 12/18/2023 52452 UNK Renetta Maldonado [facility] 4 17:49:34 22687 doxycycli ne Not available Not available Not available Not available 12/18/2023 3640 RxNorm Renetta Maldonado [facility] 4 17:49:45 Medications Name Sig Start [...] Updated DateTime 04/25/2024 160.02 cm 33.5 kg/m2 60457.96 g 150 mm[Hg] 82 mm[Hg] [facility] 5 11:18:23 Date Recorded Body weight Body mass index (BMI) Body height Systolic blood pressure Diastolic blood pressure Provider Name and Address Organization Details Last Updated DateTime 12/18/2023 57645.14 g 33.8 kg/m2 160.02 cm 143 mm[Hg] 84 mm[Hg] [facility] 4 17:48:08 Date Recorded Body height Body mass index (BMI) Body weight Systolic blood pressure Diastolic blood pressure Provider Name and Address Organization Details Last Updated DateTime 01/18/2024 160.02 cm 33.5 kg/m2 28100.96 g 149 mm[Hg] 88 mm[Hg] [facility] 4 10:33:47 Social History Question Answer Notes LastModified by Organizat ion Details LastModified Time Do You Have An Advance Directive? No Information n ot available 12/18/2023 Are You Blind Or Do You Have Difficulty Seeing? No [email or web address] Information not available 12/18/2023 What Is Your Level Of Caffeine Consumption? None [email or web address] Information not available 12/18/2023 In The 14 Days Before Symptom Onset, Have You Had Close Contact With A Laboratory-confirme d COVID-19 While That Case Was Ill? No [email or web address] Information n ot available 12/18/2023 In The 14 Days Before Symptom Onset, Have You Had Close Contact With A Person Who Is Under Investigation For COVID-19 While That Person Was Ill? No [email or web address] Information not available 12/18/2023 Have You Been To An Area Known To Be High Risk For COVID-19? No [email or web address] Information not available 12/18/2023 Are You Deaf Or Do You Have Serious Difficulty Hearing? No [email or web address] Information not available 12/18/2023 What Type Of Diet Are You Following? REGULAR [email or web address] Information n ot available 12/18/2023 What Is The Highest Grade Or Level Of School You Have Completed Or The Highest Degree You Have Received? [id number] [email or web address] Information not available 12/18/2023 Are There Any Guns Present In Your Home? No [email or web address] Information not available 12/18/2023 Do You Use Protection During Sex? No [email or web address] Information not available 12/18/2023 Do You Use Your Seat Belt Or Car Seat Routinely? Yes [email or web address] Information not available 12/18/2023 Do You Have Smoke And Carbon Monoxide Detectors In Your Home? Yes [email or web address] Information not available 12/18/2023 How Much Tobacco Do You Smoke? No [email or web address] Information not available 12/18/2023 Do You Use Sunscreen Routinely? Yes qndrrih01 Information not available 12/18/2023 Have You Used IV Drugs? No [email or web address] Information not available 12/18/2023 Sex: Unknown Functional Status Question Answer Note LastModified by Organizat ion Details LastModified Time Do you use any illicit or recreational drugs? No [email or web address] Information not available 12/18/2023 What is your level of alcohol consumption? None Information not available 12/18/2023 Are you able to walk? YESWOREST [email or web address] Information not available 12/18/2023 What is your occupation? Disabled Information not available 12/18/2023 What is your exercise level? Occasional ettoyjr86 Information not available 04/25/2024 Mental Status Question Answer Note LastModified by Organization D etails LastModified Time Do you feel stressed (tense, restless, nervous, or anxious, or unable to sleep at night)? [id number] [email or web address] Information not available 12/18/2023 Family History Relationship Description Onset Age of this Age Resolved Age Notes LastModified by Organization Details LastModified Time Mother Disorder of lung 73 73 [email or web address] Not available 2023 17:38:09 Mother Malignant neoplasm of lung 73 73 [email or web address] Not available 2023 17:38:09 Mother Disorder of lung [email or web address] Not available 2023 10:30:05 Mother Malignant neoplasm of lung [email or web address] Not available 2023 10:30:05 Son Depressive disorder 25 [email or web address] Not available 2024 10:40:50 Son Depressive disorder [email or web address] Not available 2023 10:30:05 Daughter Asthma 14 [email or web address] Not available 04/25/2024 10:40:50 Daughter Anxiety disorder 15 [email or web address] Not available 2024 10:40:50 Daughter Depressive disorder 15 [email or web address] Not available 2024 10:40:50 Daughter Substance abuse 16 ucjoxv40 Not available 2024 10:40:50 Daughter Mental disorder 16 boelug77 Not available 2024 10:40:50 Daughter Pre-eclampsi a 28 [email or web address] Not available 2024 10:40:50 Daughter Asthma [email or web address] Not availabl e 01/18/2024 10:30:05 Daughter Anxiety disorder Not available 2023 10:30:05 Daughter Depressive disorder [email or web address] Not available 2023 10:30:05 Daughter Pre-eclampsi a zryiqqt67 Not available 2023 10:30:05 Daughter Substance abuse fatfcss01 Not available 2023 10:30:05 Daughter Mental disorder Not available 2023 10:30:05 Sister Anemia 23 [email or web address] Not available 0 04/25/2024 10:40:50 Sister Osteoporosis 45 snedtd95 Not avail able 04/25/2024 10:40:50 Sister Diabetes mellitus 45 Not available 2024 10:40:50 Sister Anemia Not available 01/18/2024 10:30:05 Sister Osteoporosis [email or web address] Not avai lable 01/18/2024 10:30:05 Sister Diabetes mellitus [email or web address] Not available 2023 10:30:05 Father Heart disease 59 67 [email or web address] Not available 2023 17:38:10 Father Disorder of lung 67 67 aoofpvr34 Not available 2023 17:38:10 Father Disorder of lung [email or web address] Not available 2023 10:30:05 Father Heart disease [email or web address] Not available 2023 10:30:05 Medical History No [...] SNOMED-CT Code Diagnosis ICD10 Code Diagnosis Note [id number] KELVIN NEWELL MD [place] [address] [address] 12/18/2023 17:22:32 12/19/2023 03:57:08 Genital herpes simplex 11927700 A60.9 - new exposure per patient- s/p [...] at this time Lichen sim plex chronicus [id number] L28.0 - patient reports thickening of vulvar skin for years, itch-scrat ch cycle- will start clobetasol ointment; rtc 1 month for evaluation [id number] KELVIN NEWELL MD [place] [address] [address] 01/18/2024 10:05:21 01/18/2024 16:50:31 Lack or loss of sexual desire 376408670 F52.0 - patient reports long standing superficia l dyspareuni a (previousl y improved with vaginal estrogen cream) and low libido- will restart vaginal estrogen- discussed testostero ne supplement ation for HSDD Lichen sim plex chronicus 22105842 L28.0 - patient reports thickening of vulvar skin for years, itch-scrat ch cycle- clobetasol PRN; symptoms now improved [id number] KELVIN NEWELL MD [place] [address] [address] 04/25/2024 10:40:34 04/25/2024 12:13:32 Reduced libido 4495937 R68.82 Lack or lo ss of sexual desire 437647147 F52.0 - patient reports long standing superficia l dyspareuni a (previousl y improved with vaginal estrogen cream) and low libido- low free/total testostero ne on labs 01/2024; repeat today- continue testostero ne supplement ation for HSDD Gynecologi c examination [id number] Z01.419 [facility]- Cervical cancer screening: Pap smear [...] None Recorded Advance Directives Directive N: Payers Insurance Date Sequence Insurance Name Policy Number Policy Heller Covered Member ID Heller Member ID Guarantor Name 12/18/2023 4 [place] Tk Ruiz [id number] Tiffanie Ruiz 04/28/2024 2 [place] [id number] kT Ruiz [id number] Tiffanie Ruiz 01/18/2024 5 [place] [id number] Tk Ruiz [id number] Tiffanie Ruiz 04/23/2024 1 [place] Tiffanie Ruiz [id number] Tiffanie Ruiz 01/05/2024 2 [place] [id number] Tk Ruiz [id number] Tiffanie Ruiz 01/18/2024 4 [place] [id number] Tk Ruiz [id number] Tiffanie Ruiz 01/18/2024 2 [place] Tiffanie Ruiz [id number] Tiffanie Ruiz Notes Date Note Type [...] it. KELVIN NEWELL MD [address], [place], [address], [facility] 12/18/2023 22:44:55 01/18/2024 text/html Patient presents [...] libido. KELVIN NEWELL MD [address], [place], [address], [facility] 01/18/2024 16:24:14 04/25/2024 text/html Presents today [...] today. KELVIN NEWELL MD [address], [place], [address], [place] [facility] 04/25/2024 12:01:39 OBGyn Episode Ob Episode Information Episode Created Date Number of Fetuses Patient Bloodtype Patient rh Status Prepregnancy Weight lbs Domestic Partner Domestic Partner Phone Father Name Restaurant Area Director Status 12/18/19 24 1 CLOSED Fetus Data First Name Last Name Admitted to NICU Weight (g) Sex Living Outcome Pediatric Complications Fetus ID Race Codes Race Delivery Type F Full Term [id number] Vaginal Delivery Frederick Calculation Initial Frederick Date [...] Domestic Partner Domestic Partner Phone Father Name Restaurant Area Director Status 12/18/19 24 1 CLOSED Fetus Data First Name Last Name Admitted to NICU Weight (g) Sex Living Outcome Pediatric Complications Fetus ID Race Codes Race Delivery Type M Full Term [id number] Vaginal Delivery Frederick Calculation Initial Frederick Date [...]
--- OUTSIDE RECORDS SUMMARY | 2024-07-17 11:25 | XMS_ITS | Encounter Summary ---
Author Organization [facility] Address [address] [place] [address] Care Team Providers Care Distribution Manager Name Role Phone Jona Bravo MD Primary Care Provider Reason for Visit * Reason Comments Paperwork Encounter Details Date Type Department Care Team (Late st Contact Info) Description 04/16/2024 Telephone [facility] Primary Care [address] [place] [address] Jona Bravo MD [address] [facility] [address] [place] [address] Paperwork Social History Tobacco Use [...] often do you attend chur ch or oriental orthodox services? 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 Topic: Patient or Caregiver Communication Request >> Apr 16, 2024 2:36 PM Jennifer Fair wrote: Patient or Caregiver requesting that a message be sent to Care Team Caller: Tiffanie Ruiz Patient/Caregiver Callback Number: [phone] Call Notes: pt says the her jury duty letter needs to be faxed to the court office fax [phone] Rickey documented in this encounter Plan of Treatment Upcoming Encounters Date Type Department Care Team (Late st Contact Info) Description 07/29/2024 8:30 AM CDT Office Visit [facility] [address] [facility] [address] [place] [id number] [place] [address] [facility] [address] [place] [address] 08/25/2024 10:40 AM CDT Office Visit [facility] Primary Care [facility] [address] [facility] [address] [place] [address] Jona Bravo MD [address] [facility] [address] [place] [address] documented as of this encounter Visit Diagnoses Not on filedocumented in this encounter Care Teams Distribution Manager Relationship Specialty Start Date End Date Jona Bravo MD PCP - General Internal Medicine 11/25/15 documented as of this encounter
--- OUTSIDE RECORDS SUMMARY | 2024-07-17 11:26 | XMS_ITS | Encounter Summary ---
Author Organization [facility] Address [address] [place] [address] Care Team Providers Care Call Center Assistant Name Role Phone Jona Bravo MD Primary Care Provider [phone] Reason for Visit * Reason Comments Clinical Consult Before Scheduling Encounter Details Date Type Department Care Team (Late st Contact Info) Description 02/11/2024 Telephone [facility] [address] [place] [address] Jona Bravo MD [address] [facility] [address] [place] [address] Clinical Consult Before Scheduling Social [...] often do you attend chur ch or orthodox services? 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 Topic: Symptomatic Care >> Feb 11, 2024 4:22 PM Connie Ardon wrote: Caller has new symptoms and is seeking care. Age Range/Symptom: Adult: 18+ - Cold, Flu, COVID, Sinus, Hay Fever, Allergies, Cough, Fever Does patient have any of the following other urgent symptoms: No urgent symptoms requiring warm call transfer Caller Name: Tiffanie Ruiz Callback Number: [phone] Call Notes: She has been sick since 01/31/2024. She went to the Urgent care ([facility]), yesterday. Where they prescribed steroids, and gave x-ray. She Is still suffering from cough, raspy throat, chest aches, and head congestion. Emergency inhaler not working well Refer to - [facility] (02/11/2024) She is scheduled with [facility] on 02/14/2024 Unable to schedule appointment within patient's desired timeframe. Patient declined all other options for immediate care, preferring to schedule first available. Scheduled appointment for 02/14/24 at3pm . If this is not clinically appropriate, please contact patient. 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 documented in this encounter Plan of Treatment Upcoming Encounters Date Type Department Care Team (Late st Contact Info) Description 07/29/2024 8:30 AM CDT Office Visit [facility] [address] [facility] [address] [place] [address] [place] [address] [facility] [address] [place] [phone] 08/25/2024 10:40 AM CDT Office Visit [facility] Primary [facility] [address] [facility] [address] [place] [address] Jona Bravo MD [address] [facility] [address] [place] [address] documented as of this encounter Visit Diagnoses Not on filedocumented in this encounter Care Teams Call Center Assistant Relationship Specialty Start Date End Date Jona Bravo MD PCP - General Internal Medicine 11/25/15 documented as of this encounter
--- OUTSIDE RECORDS SUMMARY | 2024-07-17 11:26 | XMS_ITS | Encounter Summary ---
Author Organization [facility] Address [address] [place] [address] Dr. Quinones: [place] [address] Care Team Providers Care Dry Cell Battery Assembler Name Role Phone Jona Bravo MD Primary Care Provider [phone] Encounter Details Date Type Department Care Team (Late st Contact Info) Description 07/14/2024 External Device Data Initial Department [address] [place] [address] Dr QUINONES: [place] [address] [facility], Social History Tobacco Use Types Packs/Day [...] any clubs o r organizations such as sabianist groups, unions, fraternal or athletic groups, or [...] on file Legal Sex Female 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 Gender Identity Not on file Sexual Orientation Not on file 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 Not on file Not on file documented as of this encounter Plan of Treatment Upcoming Encounters Date Type Department Care Team (Late st Contact Info) Description 07/29/2024 8:30 AM CDT Office Visit [facility] [address] [facility] [address] [place] [phone] [place] [address] [facility] [address] [place] [address] 08/25/2024 10:40 AM CDT Office Visit [facility] [address] [place] [address] [address] [place] [phone] Jona Bravo MD [address] [facility] [address] [place] [phone] documented as of this encounter Visit Diagnoses Not on filedocumented in this encounter Care Teams Dry Cell Battery Assembler Relationship Specialty Start Date End Date Jona Bravo MD PCP - General Internal Medicine 11/25/15 documented as of this encounter
--- OUTSIDE RECORDS SUMMARY | 2024-07-17 11:26 | XMS_ITS | Encounter Summary ---
Author Organization [facility] Address [address] [place] [address] Dr. Quinones: [place] [address] Care Team Providers Care Guest Service Team Leader Name Role Phone Jona Bravo MD Primary Care Provider [phone] Encounter Details Date Type Department Care Team (Late st Contact Info) Description 07/16/2024 External Device Data Initial Department [address] [place] [address] Dr QUINONES: [place] [address] [facility], Social History Tobacco Use Types Packs/Day [...] often do you attend chur ch or jehovah's witness services? 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 on file Not on file documented as of this encounter Plan of Treatment Upcoming Encounters Date Type Department Care Team (Late st Contact Info) Description 07/29/2024 8:30 AM CDT Office Visit [facility] [address] [facility] [address] [place] [phone] [place] [address] [facility] [address] [place] [address] 08/25/2024 10:40 AM CDT Office Visit [facility] Primary Care [facility] [address] [place] [address] [address] [place] [phone] Jona Bravo MD [address]37 [facility] [address] [place] [phone] documented as of this encounter Visit Diagnoses Not on filedocumented in this encounter Care Teams Guest Service Team Leader Relationship Specialty Start Date End Date Jona Bravo MD PCP - General Internal Medicine 11/25/15 documented as of this encounter
--- OUTSIDE RECORDS SUMMARY | 2024-07-17 11:26 | XMS_ITS | Encounter Summary ---
Author Organization [facility] Address [address] [place] [address] Care Team Providers Care Abstract Checker Name Role Phone Jona Bravo MD Primary Care Provider Reason for Visit * Reason Onset Date Comments HFU 10/11/2021 Encounter Details Date Type Department Care Team (Late st Contact Info) Description 10/11/2021 Telephone [facility] [address] [place] [address] Jona Bravo MD [address] [place] [address] [address] [place] [address] HFU Social History Tobacco Use [...] attend chur ch or jewish services? 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 according to piano case and bench assembler Krzysztof. Patient was scheduled for a hospital follow up with PCP for 10/14/21; caller stated that [facility] wants patients to be seen no sooner than 7 days after discharge; PSA informed patient needs to be seen within 5 days per PCP; caller stated she may advise patient to reschedule. Please call the patient to [facility] and request medical records as it was not mentioned during the call. documented in this encounter Plan of Treatment Upcoming Encounters Date Type Department Care Team (Late st Contact Info) Description 07/29/2024 8:30 AM CDT Office Visit [facility] [address] [facility] [address] [place] [phone] [place] [address] [facility] [address] [place] [address] 08/25/2024 10:40 AM CDT Office Visit [facility] Primary Care [facility] [address] [facility] [address] [place] [address] Jona Bravo MD [address] [facility] [address] [place] [address] documented as of this encounter Visit Diagnoses Not on filedocumented in this encounter Additional Health Concerns Assessment Noted Time PHQ-9 Depression Total Score: 2 01/11/20 20 4:07 PM REMOTE ENCODING OPERATIONS SUPERVISOR documented as of this encounter Care Teams Abstract Checker Relationship Specialty Start Date End Date Jona Bravo MD PCP - General Internal Medicine 11/25/15 documented as of this encounter
--- OUTSIDE RECORDS SUMMARY | 2024-07-17 11:26 | XMS_ITS | Encounter Summary ---
Author Organization [facility] Address 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 Call back number: [phone] (home) Home Phone Work Phone documented in this encounter Plan of Treatment Upcoming Encounters Date Type Department Care Team (Late st Contact Info) Description 07/29/2024 8:30 AM CDT Office Visit [facility] [address] [facility] [address] [place] [phone] [place] [address] [facility] [address] [place] [phone] 08/25/2024 10:40 AM CDT Office Visit [facility] Primary Care [facility] [address] [facility] [address] [place] [address] Jona Bravo MD [address] [place] [address] [address] [place] [address] documented as of this encounter Visit Diagnoses Not on filedocumented in this encounter Care Teams Software Sales Representative Relationship Specialty Start Date End Date Jona Bravo MD PCP - General Internal Medicine 11/25/15 documented as of this encounter
--- OUTSIDE RECORDS SUMMARY | 2024-07-17 11:26 | XMS_ITS | Clinical Summary ---
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 30 Tablet 6 024 Active fluticasone-ume clidinium-vilan terol (Trelegy Ellipta) 200-62.5-25 mcg Disk with Device Lot: [id number] ex: 09/2025 qty: 2 1 Each 025 Active fluticasone-ume clidinium-vilan terol (TRELEGY ELLIPTA) 100-62.5-25 mcg Disk with Device Lot: [id number] ex: 09/2025 qty: 2 1 Each 025 Active oseltamivir (TAMIFLU) 75 mg capsule Take 1 Capsule (75 mg) by mouth 2 times daily. 10 Capsule 025 Active busPIRone (BUSPAR) 15 mg TabletIndicatio ns:Anxiety state Take 1 Tablet (15 mg) by mouth 2 times daily. 200 Tablet 3 025 Active losartan (COZAAR) 100 mg tabletIndicatio ns:Primary hypertension TAKE 1/2 (ONE-HALF) TABLET BY MOUTH TWICE DAILY 100 Tablet 3 025 Active tiZANidine (ZANAFLEX) 4 mg Tablet TAKE 1 TABLET BY MOUTH EVERY 8 HOURS NEEDED FOR SPASMS 60 Tablet 3 025 Active tiZANidine (ZANAFLEX) 4 mg Tablet TAKE 1 TABLET BY MOUTH EVERY 8 HOURS NEEDED FOR SPASM 60 Tablet 025 2024 Discontinued Active Problems Patient Care [...] Encounters Date Type Department Care Team Description 07/16/2024 External Device Data Initial Department [address] [place] [address] Dr CANCHOLA: Prelude ADT [place], [place] [address]Sabine Villavicencio Md 07/14/2024 External Device Data Initial Department [address] [place] [address] Dr CANCHOLA: Prelude ADT [place], [place] [address]Sabine Villavicencio Md 07/13/2024 [facility] [address] [place] [address] Jona Bravo MD 07/11/2024 8:48 AM CDT - 07/11/2024 11:59 PM CDT Hospital Encounter [facility] CT Scan [place] [address] [facility] [address] [facility] [place] [address] Bassam Sevilla MD Discharge Disposition: Home or Self Care 07/09/2024 External Device Data Initial Department [address] [place] [address] Dr CANCHOLA: Prelude ADT [place], [place] [address]Sabine Villavicencio Md 07/02/2024 External Device Data Initial Department [address] [place] [address] Dr CANCHOLA: Prelude ADT [place], [place] [address]Sabine Villavicencio Md 06/26/2024 12:43 PM CDT - 06/26/2024 11:59 PM CDT Hospital Encounter [facility] [address] [place] [address] [place] [id number] Bassam Sevilla MD Discharge Disposition: Home or Self Care 06/25/2024 External Device Data Initial Department [address] [place] [address] Dr CANCHOLA: [place] [address] [facility] 06/24/2024 External Device Data STL ABSTRACTION Provider, Abstract 06/23/2024 External Device Data Initial Department [address] [place] [address] Dr SHEARERN: [place] [address] [facility] 06/18/2024 External Device Data Initial Department [address] [place] [address] Dr CANCHOLA: [place] [address] [facility] 06/17/2024 1:30 PM CDT Procedure visit [facility] [address] [facility] [address] [place] [address] Tami Thorne PA-C Diabetic hypoglycemia (CMS/HCC) (Primary Dx) 06/17/2024 Telephone [facility] [place] [address] [place] [address] Bassam Sevilla MD Referral Request; Labs Only 06/17/2024 Orders Only [facility] [place] [address] [place] [address] Bassam Sevilla MD Primary hyperparathyroidism (Primary Dx) 06/16/2024 External Device Data Initial Department [address] [place] [address] Dr CANCHOLA: [place] [address] [facility] 06/15/[address] [place] [address] Jona Bravo MD 06/12/[address] [place] [address] Jona Bravo MD 06/12/2024 Orders Only [address], [place] [address] Provider, Abstract 06/11/2024 External Device Data Initial Department [address] [place] [address] Dr CANCHOLA: [place] [address] [facility], 06/11/2024 [facility] [address] [place] [address] Jona Bravo MD Primary hypertension 06/10/2024 [facility] [address] [place] [address] Jona Bravo MD Primary hypertension 06/10/[address] [place] [address] Jona Bravo MD Primary hypertension 06/09/2024 External Device Data Initial Department [address] [place] [address] Dr CANCHOLA: [place] [address] [facility], 06/04/2024 External Device Data Initial Department [address] [place] [address] Dr CANCHOLA: [place] [address] [facility], Md 06/02/2024 External Device Data Initial Department [address] [place] [address] Dr CANCHOLA: [place] [address] [facility], Md 05/30/2024 [facility] [address] [place] [address] Jona Bravo MD Anxiety state 05/28/2024 External Device Data Initial Department [address] [place] [address] Dr CANCHOLA: [place] [address] [facility], 05/26/2024 External Device Data Initial Department [address] [place] [address] Dr CANCHOLA: Prelude ADT [place], [place] [address]Sabine Powers Emergency, 05/21/2024 External Device Data Initial Department [address] [place] [address] Dr CANCHOLA: [place] [address] [facility], 05/20/2024 Telephone [facility] [address] [facility] [address] [place] [address] Skip Kumari CGM reschedule 05/19/2024 External Device Data Initial Department [address] [place] [address] Dr CANCHOLA: [place] [address] [facility], 05/19/2024 Telephone [facility] [address] [facility] [address] [place] [address] Skip Kumari CGM time reminder 05/14/2024 External Device Data Initial Department [address] [place] [address] Dr SHEARERN: [place] [address] [facility], Md 05/12/2024 External Device Data Initial Department [address] [place] [address] Dr CANCHOLA: [place] [address] [facility], 05/08/2024 [facility] [address] [address] Jona Bravo MD 05/07/2024 External Device Data Initial Department [address] [place] [address] Dr CANCHOLA: [place] [address] [facility], Md 05/05/2024 External Device Data Initial Department [address] [place] [address] Dr CANCHOLA: [place] [address] [facility], Md 04/30/2024 External Device Data Initial Department [address] [place] [address] Dr CANCHOLA: [place] [address] [facility], Md 04/28/2024 External Device Data Initial Department [address] [place] [address] Dr SHEARERN: [place] [address] [facility], 04/23/2024 External Device Data Initial Department [address] [place] [address] Dr CANCHOLA: [place] [address] [facility], Md 04/22/2024 Telephone [facility] [address] [facility] [address] [place] [address] Freddy Hdez Schedule CGM Appmt 04/22/2024 Abstract [facility] [address] [facility] [address] [place] [address] Bassam Sevilla MD 04/21/2024 External Device Data Initial Department [address] [place] [address] Dr CANCHOLA: [place] [address] Gio Villavicencio Md 04/17/2024 Abstract [facility] [address] [place] [address] Jona Bravo MD 04/17/2024 Orders Only [facility] [address] [place] [address] Brett Ruth PA ERRONEOUS ENCOUNTER--DISREGARD (Primary Dx) 04/17/2024 Abstract [facility] [address] [place] [address] Jona Bravo MD 04/16/2024 Telephone [facility] [address] [place] [address] Jona Bravo MD Paperwork 04/16/2024 External Device Data Initial Department [address] [facility] [address] CANCHOLA: [place] [address] [facility] from Last 3 Months Immunizations Immunization [...] COVID-19 VACCINE - EMERGENCY USE AUTHORIZATION, MRNA, [id number](PF) 30 MCG/0.3 ML IM SUSP 12/12/2020,04/29/2020,04/08/2020 (PNEUMOVAX 23)(50 YRS UP) PN EUMOCOCCAL POLYSACCHARIDE (PPV23) 0.5 ML, IM 05/30/2016 (PREVNAR 13)(6 WKS UP) PNEUM OCOCCAL CONJUGATE (PCV13) 0.5 ML, IM 09/16/2014 (PREVNAR 20)(6 WKS UP) PNEUM OCOCCAL CONJUGATE VACCINE 20-VALENT (PCV20), POLYSACCHARIDE [id number] CONJUGATE, ADJUVANT 0.5 ML (PF) IM 02/10/2022 [...] Farooq cervica l female Emphysema Mother Pat Geraldine Farooq Heart Disease Mother Pat Geraldine Farooq Hypertension Mother Pat Geraldine Farooq Lung Cancer Mother Pat Geraldine Farooq Small cell Thyroid Disease Mother Pat Trivedi [...] often do you attend chur ch or baptist services? 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 Gender Identity Not on file Sexual [...] Description 07/29/2024 8:30 AM CDT Office Visit [facility] [place] [address] [facility] [address] [place] [address] [place] [address] [facility] [address] [place] [address] 08/25/2024 10:40 AM CDT Office Visit [facility] [address] [place] [address] [address] [place] [address] Jona Bravo MD [address] [place] [address] [address] [place] [address] Health Maintenance Due Date Last Done Comments FIT/ DNA Q 3 YEARS (AUTO ORDER) 1977 FIT/FOBT Q 1 YEAR (AUTO ORDER) 1977 FIT-DNA Q 3 years 02/05/2004 FIT/FOBT Q 1 year 02/05/2004 Flex Sig/CT Colonography Q 5 years 02/05/2004 RSV VACCINE (60+ or ) (1 - Risk 60-74 years 1-dose series) 2019 ZOSTER VACCINE (2 of 2) 12/08/2021 10/13/2021 COVID-19 Vaccine (2023-2 5 season) 2023 01/08/2023, 10/13/2021, 12/12/2020, Additional history exists DIABETES ANNUAL FOOT EXAM 06/21/2024 06/22/2023 Traditional Medicare ([facility]) A nnual Wellness Visit 06/22/2024 06/22/2023, 10/14/2021, 04/25/2018 DIABETES HBA1C Q 6 MONTHS 08/12/20242024, 12/24/2023, 10/17/2023, Additional history exists DIABETES ANNUAL RETINAL EXAM 09/27/2024, 07/07/2022, 04/19/2021, Additional history exists DIABETES MICROALBUMIN ANNUAL SCREEN 11/25/2024 11/26/2023, 08/06/2015 DIABETES: A1C (Auto Order) 02/12/202502/12, 12/24/2023, 10/17/2023, Additional history exists BREAST CANCER SCREENING 05/28/2025 05/29/19 25, 05/28/2024, 05/28/2024, Additional history exists LDL CHOLESTEROL ANNUAL 07/14/2025 5, 02/08/2023, 06/15/2022, Additional history exists FLEX SIG/CT COLONOGRAPHY Q 5 YEARS (AUTO ORDER) 08/03/2025 08/03/2020, 08/03/2020 OSTEOPOROSIS SCREENING 09/10/2027 3, 09/09/2022, 09/08/2022, Additional history exists COLORECTAL CANCER [...] history exists Medical Devices Implanted Type Area Tobacco Prizer Device Identifier Shelf Expiration Date Model / Serial / Lot Lap Band Bladder Sling Procedures Procedure Name Priority Date/Time Associated Diagnosis Comments VITAMIN D 25 HYDROXY Routine 07/14/2024 7:46 AM CDT Vitamin D deficiency TSH Routine 07/14/2024 7:46 AM CDT Other hyperlipidemia LIPID PANEL Routine 07/14/2024 7:46 AM CDT Other hyperlipidemia COMPREHENSIVE METABOLIC PANEL Routine 07/14/2024 7:46 AM CDT Other hyperlipidemia CBC WITH DIFFERENTIAL Routine 07/14/2024 7:46 AM CDT Other asthma CT SOFT TISSUE NECK W WO CONTRAST Routine 07/11/2024 9:25 AM CDT Primary hyperparathyroidism POC CREATININE Routine 07/11/2024 9:01 AM CDT US HEAD NECK TISSUES Routine 06/26/2024 1:59 PM CDT Primary hyperparathyroidism GENERAL PROCEDURE Routine 06/17/2024 1:3 0 PM CDT Diabetic hypoglycemia (CMS/HCC) MAMMO SCREEN BILAT W OR WO CAD Routine 05/28/2024 1:46 PM CDT HEMOGLOBIN A1C Routine 02/13/2024 3:36 PM YARD OPERATOR MICROALBUMIN/CREATIN INE RATIO, RANDOM UR Routine 11/26/2023 4:09 PM CDT DM type 2, goal HbA1c < 7% ([facility]) XR DEXA BONE DENSITY AXIAL 1 OR MORE SITES Routine 09/20/2020 Menopause HX COLONOSCOPY Routine 08/03/2020 from Last 3 Months or Most Recently Relevant to Health Maintenance Results * (ABNORMAL) CBC WITH DIFFERENTIAL (07/14/2024 7:46 AM CDT) WBC 6.1 3.8 - 10.8 Thousand/u L [facility] RBC 3.74(L) 3.80 - 5.10 Million/uL [facility] HEMOGLOBIN 13.3 11.7 - 15.5 g/dL [facility] HEMATOCRIT 40.4 35.0 - 45.0 % [facility] MCV 108.0(H) 80.0 - 100.0 fL [facility] MCH 35.6(H) 27.0 - 33.0 pg [facility] MCHC 32.9 32.0 - 36.0 g/dL [facility] Comment: For adults, a slight decrease in the calculated MCHC value (in the range of 30 to 32 g/dL) is most likely not clinically significant; however, it should be interpreted with caution in correlation with other red cell parameters and the patient's clinical condition. RDW 11.7 11.0 - 15.0 % [facility] PLATELETS 169 140 - 400 Thousand/u L [facility] MPV 9.8 7.5 - 12.5 fL [facility] NEUTROPHIL ABSOLUTE 3,276 1,500 - 7,800 cells/uL [facility] LYMPHOCYTE ABSOLUTE 2,129 850 - 3,900 cells/uL [facility] MONOCYTE ABSOLUTE 567 200 - 950 cells/uL [facility] EOSINOPHIL ABSOLUTE 98 15 - 500 cells/uL [facility] BASOPHILS ABSOLUTE 31 0 - 200 cells/uL [facility] NEUTROPHIL 53.7 % [facility] LYMPHOCYTES 34.9 % [facility] MONOCYTE 9.3 % [facility] EOSINOPHILS 1.6 % [facility] BASOPHILS 0.5 % [facility] Comment: Test Performed at: [facility] [address] Law Nathan MD Blood 07/14/2024 7:46 AM CDT 07/14/2024 7:46 AM CDT us Jona Bravo MD HEMATOLOGY ORDERABLES Final R esult [facility] [phone] [facility] [address] * VITAMIN D 25 HYDROXY (07/14/2024 7:46 AM CDT) Pathologist [facility] VITAMIN D, 25 OH, TOTAL 46 30 - 100 ng/mL [facility] Comment: Vitamin D Status 25-OH Vitamin D: Deficiency: <20 ng/mL Insufficiency: 20 - 29 ng/mL Optimal: > or = 30 ng/mL For 25-OH Vitamin D testing on patients on D2-supplementation and patients for whom quantitation of D2 and D3 fractions is required, the [facility](TM) 25-OH VIT D, (D2,D3), LC/MS/MS is recommended: order code 82338 (patients >2yrs). See Note 1 Note 1 For additional information, please refer to http://education.[employer].[place]/faq/ILE014 (This link is being provided for informational/ educational purposes only.) FASTING:YES FASTING: YES Test Performed at: [facility] [address] [place] [address] Law Nathan MD Blood 07/14/2024 7:46 AM CDT 07/14/2024 7:46 AM CDT Jona Bravo MD CHEMISTRY ORDERABLES Final Re sult Performing Organization Address [facility] Co de Phone Number [facility] [phone] [facility] [address] [place] [phone] * TSH (07/14/2024 7:46 AM CDT) Pathologist [facility] TSH 2.41 0.40 - 4.50 mIU/L [facility] Comment: Test Performed at: [facility] [address] [place] [address] Law Nathan MD Blood 07/14/2024 7:46 AM CDT 07/14/2024 7:46 AM CDT us Jona Bravo MD CHEMISTRY ORDERABLES Final Re sult Performing Organization Address [facility] Co de Phone Number [facility] [phone] [employer] [facility] [address] [place] [phone] * LIPID PANEL (07/14/2024 7:46 AM CDT) [facility] CHOLESTEROL 175 <200 mg/dL [facility] HDL 65 > OR = 50 mg/dL [facility] TRIGLYCERIDE 43 <150 mg/dL [facility] LDL CALCULATED 97 mg/dL (calc) [facility] Comment: Reference range: <100 Desirable range <100 mg/dL for primary prevention; <70 mg/dL for patients with CHD or diabetic patients with > or = 2 CHD risk factors. LDL-C is now calculated using the Tai-Clarissa calculation, which is a validated novel method providing better accuracy than the Friedewald equation in the estimation of LDL-C. Tai SANDHU et al. YONI. 2013;310(19): 8705-7744 (http://education.[employer].[place]/faq/PDN959) CHOL/HDL RATIO 2.7 <5.0 (calc) [facility] NON-HDL CHOLESTEROL 110 <130 mg/dL (calc) [facility] Comment: For patients with diabetes plus 1 major ASCVD risk factor, treating to a non-HDL-C goal of <100 mg/dL (LDL-C of <70 mg/dL) is considered a therapeutic option. Test Performed at: [facility] [address] [facility] [place] [address] Law Nathan MD Blood 07/14/2024 7:46 AM CDT 07/14/2024 7:46 AM CDT us Jona Bravo MD CHEMISTRY ORDERABLES Final Re sult [facility] [phone] [facility] [address] [facility] [place] [address] * (ABNORMAL) COMPREHENSIVE METABOLIC PANEL (07/14/2024 7:46 AM CDT) GLUCOSE 90 65 - 99 mg/dL [facility] Comment: Fasting reference interval BUN 27(H) 7 - 25 mg/dL [facility] CREATININE 0.66 0.50 - 1.05 mg/dL [facility] GFR 97 > OR = 60 mL/min/1.7 3m2 [facility] BUN/CREAT RATIO 41(H) 6 - 22 (calc) [facility] SODIUM 139 135 - 146 mmol/L [facility] POTASSIUM 4.2 3.5 - 5.3 mmol/L [facility] CHLORIDE 103 98 - 110 mmol/L [facility] CO2 30 20 - 32 mmol/L [facility] CALCIUM 9.1 8.6 - 10.4 mg/dL [facility] TOTAL PROTEIN 6.1 6.1 - 8.1 g/dL [facility] ALBUMIN 4.1 3.6 - 5.1 g/dL [facility] GLOBULIN 2.0 1.9 - 3.7 g/dL (calc) [facility] ALBUMIN/GLOBULIN RATIO 2.1 1.0 - 2.5 (calc) [facility] BILIRUBIN TOTAL 0.8 0.2 - 1.2 mg/dL [facility] ALKALINE PHOSPHATASE 53 37 - 153 U/L [facility] AST 29 10 - 35 U/L [facility] ALT 39(H) 6 - 29 U/L [facility] Comment: Test Performed at: [facility] [address] [place] [address] Law Nathan MD Blood 07/14/2024 7:46 AM CDT 07/14/2024 7:46 AM CDT us Jona Bravo MD CHEMISTRY ORDERABLES Final Re sult [facility] [phone] [facility] [address] [place] [address] * CT SOFT TISSUE NECK W WO CONTRAST (07/11/2024 9:25 AM CDT) Anatomical Region Laterality Modality Neck Computed Tomogra phy 07/11/2024 9:10 AM CDT Impressions 07/11/2024 11:41 AM CDT IMPRESSION: 0.7 x 0.5 cm soft tissue nodule posterior to the right thyroid lobe could represent parathyroid adenoma. DICTATION LOCATION: Location 1 - [facility] Narrative 07/11/2024 11:[address] SOFT TISSUE NECK W WO CONTRAST DATE: 07/11/2024 9:25 AM INDICATION: Hyperparathyroidism TECHNIQUE: Axial computed tomography of the neck was performed with and without intravenous contrast according to the 4D parathyroid protocol. One or more of the following dose reduction techniques were utilized: Automated exposure control (AEC), Adjustment of mA and/or kV according to patient size, Use of iterative reconstruction technique such as ASiR, CT scan done according to ALARA and image gently/image wisely CONTRAST: IOPAMIDOL 61 % INTRAVENOUS SOLUTION (MULTI-DOSE BULK PACK) Given:75 mL COMPARISON: None. FINDINGS: 0.7 x 0.5 cm enhancing soft tissue nodule posterior to the right thyroid lobe could represent parathyroid adenoma.. Multiple thyroid nodules measuring up to 2.5 cm. Scattered subcentimeter lymph nodes are seen in the neck. None are pathologically enlarged or abnormally enhancing. The parotid and submandibular glands are normal. The muscles of the neck are normal. Right carotid plaque. The visualized aerodigestive tract is normal. The visualized posterior fossa and brain is unremarkable. The visualized orbits and paranasal sinuses are normal. ACDF of C4-C7. Multilevel high-grade spinal canal stenosis in the cervical spine. Right vagal nerve stimulator. The visualized lung apices are clear. Procedure Note Ronni Boyer MD - 07/11/2024 CT SOFT TISSUE NECK W WO CONTRAST DATE: 07/11/2024 9:25 AM INDICATION: Hyperparathyroidism TECHNIQUE: Axial computed tomography of the neck was performed with and without intravenous contrast according to the 4D parathyroid protocol. One or more of the following dose reduction techniques were utilized: Automated exposure control (AEC), Adjustment of mA and/or kV according to patient size, Use of iterative reconstruction technique such as ASiR, CT scan done according to ALARA and image gently/image wisely CONTRAST: IOPAMIDOL 61 % INTRAVENOUS SOLUTION (MULTI-DOSE BULK PACK) Given:75 mL COMPARISON: None. FINDINGS: 0.7 x 0.5 cm enhancing soft tissue nodule posterior to the right thyroid lobe could represent parathyroid adenoma.. Multiple thyroid nodules measuring up to 2.5 cm. Scattered subcentimeter lymph nodes are seen in the neck. None are pathologically enlarged or abnormally enhancing. The parotid and submandibular glands are normal. The muscles of the neck are normal. Right carotid plaque. The visualized aerodigestive tract is normal. The visualized posterior fossa and brain is unremarkable. The visualized orbits and paranasal sinuses are normal. ACDF of C4-C7. Multilevel high-grade spinal canal stenosis in the cervical spine. Right vagal nerve stimulator. The visualized lung apices are clear. IMPRESSION: 0.7 x 0.5 cm soft tissue nodule posterior to the right thyroid lobe could represent parathyroid adenoma. DICTATION LOCATION: Location 1 - [facility] us Bassam Sevilla MD CT ORDERABLES Final Re sult * POC CREATININE (07/11/2024 9:01 AM CDT) CREATININE POC 1.00 0.50 - 1.00 mg/dL 07/11/2024 9:01 AM CDT [facility] RADIOLOGY MULTI SITE/OPS [facility] GFR POC >60 >=60 mL/min/1.7 3 sq meter 07/11/2024 9:01 AM CDT [facility] MULTI SITE/OPS [facility] Comment:eGFR calculated with 2020 CKD-EPI equation. Vegetarian diet, extremely high or low muscle mass, and may affect results. Cystatin C with Glomerular Filtration Rate is a suitable alternative for these patients. Blood, whole 07/11/2024 9:01 AM CDT 07/11/2024 9:05 AM CDT us Bassam Sevilla MD POINT OF CARE TESTING Fi nal Result [facility] MULTI SITE/OPS [facility] CLIA # [id number] [place] [address] * US HEAD NECK TISSUES (06/26/2024 1:59 [...] Alternatives discussed: No treatment and delayed treatment Jackson protocol: Procedure explained and questions answered to [...] Final * HEMOGLOBIN A1C (02/13/2024 3:36 PM YARD OPERATOR) ABSTRACTED HGB A1C 5.7 % [facility] Blood 02/13/2024 3:36 PM YARD OPERATOR Jona Bravo MD CHEMISTRY ORDERABLES Final Re sult [facility] CLIA# [id number] [address] [address] * MICROALBUMIN/CREATININE RATIO, RANDOM UR (11/26/2023 [...] within a diagnostic category. Test Performed at: [email or web address] [address] [place] [address] Law Nathan MD Urine URINE SPECIMEN OBTAINED BY CLEAN CATCH PROCEDURE / Unknown 11/26/2023 4:09 PM CDT 11/27/2023 6:37 AM CDT Jona Bravo MD URINE ORDERABLES Final Result [facility] [phone] [facility] [address] [place] [address] * XR DEXA BONE DENSITY AXIAL 1 OR MORE SITES (09/20/2020) Anatomical Region Laterality Modality Other Jona Bravo MD DIAGNOSTIC IMAGING ORDERABLES Final Result * HX COLONOSCOPY (08/03/2020) Abstract Provider GENERIC SURGICAL HISTORY Edite d Result - Final EXTERNAL LAB from Last 3 Months or Most Recently Relevant to Health Maintenance Insurance MEDICARE PART A AND B [facility] PREFERRED RX PRIME THERAPEUTICS Commercial MEDICARE PART A AND B [employer] BLUE PREFERRED Advance Directives For more information, please contact: [phone] * Full Code (Latest Code Status on File) Date Activated Date Inactivated Comments 03/02/2017 8:56 PM 03/05/2017 9:44 PM * Full Code Date Activated Date Inactivated Comments 07/17/2014 10:57 AM 07/17/2014 4:49 PM * Full Code Date Activated Date Inactivated Comments 04/24/2014 2:54 PM 04/24/2014 8:53 PM * Full Code Date Activated Date Inactivated Comments 04/24/2014 11:13 AM 04/24/2014 2:54 PM 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
--- OUTSIDE RECORDS SUMMARY | 2024-07-17 11:27 | XMS_ITS | Encounter Summary ---
Author Organization [facility] Address 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 Topic: Patient or Caregiver Communication Request >> Apr 23, 2023 1:32 PM Adelina Harper wrote: Patient or Caregiver requesting advice Caller: Tiffanie Ruiz Patient/Caregiver Callback Number: [phone] (home) Call Notes: Patient is calling she is needing an orthopedic referral and her referral for Eric Martinez MD is still pending and needs to be faxed to this number. Please advise. Dr Martinez FAX# [phone] documented in this encounter Plan of Treatment Upcoming Encounters Date Type Department Care Team (Late st Contact Info) Description 07/29/2024 8:30 AM CDT Office Visit [facility] [address] [facility] [address] [place] [phone] [place] [address] [facility] [address] [place] [phone] 08/25/2024 10:40 AM CDT Office Visit [facility] Primary Care [facility] [address] [facility] [address] [place] [address] Jona Bravo MD 637 [facility] [address] [place] [address] documented as of this encounter Visit Diagnoses Not on filedocumented in this encounter Care Teams Maintenance Apprentice Relationship Specialty Start Date End Date Jona Bravo MD PCP - General Internal Medicine 11/25/15 documented as of this encounter
--- OUTSIDE RECORDS SUMMARY | 2024-07-17 11:27 | XMS_ITS | Encounter Summary ---
Author Organization [facility] Address [address] [place] [address] Care Team Providers Care Cradle Slide Maker Name Role Phone Jona Bravo MD Primary Care Provider [phone] Reason for Visit * Reason Comments Question Encounter Details Date Type Department Care Team ([facility] st Contact Info) Description 03/23/2023 Telephone [facility] [address] [place] [address] Jona Bravo MD [address] [facility] [address] [place] [address] Question Social History Tobacco Use [...] often do you attend chur ch or roman catholic services? 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 Topic: Patient or Caregiver Communication Request >> Mar 23, 2023 12:21 PM David Monte wrote: Patient or Caregiver calling to update PCP team on status after a recent visit Caller: Eda Patient/Caregiver Callback Number: [phone] Call Notes: Message: Eda is calling to check the status of fax requesting brace for lower back and knees of patient. Informed Eda that we put the request on Dr. Bravo's desk. She wanted io inform they need the request back within 3-5 days. Please Advise LIGHT ASSEMBLER documented in this encounter Plan of Treatment Upcoming Encounters Date Type Department Care Team (Late st Contact Info) Description 07/29/2024 8:30 AM CDT Office Visit [facility] [address] [facility] [address] [place] [phone] [place] [address] [facility] [address] [place] [address] 08/25/2024 10:40 AM CDT Office Visit [facility] Primary Care [facility] [address] [facility] [address] [place] [address] Jona Bravo MD [address] [facility] [address] [place] [address] documented as of this encounter Visit Diagnoses Not on filedocumented in this encounter Care Teams Cradle Slide Maker Relationship Specialty Start Date End Date Jona Bravo MD PCP - General Internal Medicine 11/25/15 documented as of this encounter
== END 2024-07-17 10:58 | disposition home or self-care (01) ==
PROVIDERS: Emergency Provider Nurse Practitioner Family; PCP Internal Medicine
DX: J02.9 Acute pharyngitis, unspecified (principal); J06.9 Acute upper respiratory infection, unspecified; R05.9 Cough, unspecified; Z20.822 Contact with and (suspected) exposure to COVID-19; K75.81 Nonalcoholic steatohepatitis (NASH); E89.0 Postprocedural hypothyroidism; M79.7 Fibromyalgia; J45.909 Unspecified asthma, uncomplicated; E78.5 Hyperlipidemia, unspecified; E66.9 Obesity, unspecified; Z86.73 Personal history of transient ischemic attack (TIA), and cerebral infarction without residual deficits; Z85.820 Personal history of malignant melanoma of skin; Z98.84 Bariatric surgery status
CPT/HCPCS: 87081; 87426; 87880; 99213; G0463

== ENCOUNTER 2024-12-01 10:11 | Outpatient (CLI) | payer BC, MEDICARE, SELFPAY ==
--- OUTSIDE RECORDS SUMMARY | 2023-07-13 07:30 | XMS_ITS ---
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 - Kathi Zimmerman [address] [place] [address] 07/13/2023 Kathi Zimmerman Plan Of Treatment No Information Progress Notes * JOSEPHJavonOB:[birth year] (64 yo F)Acc No.[id number]:07/13/2023 Patient: Tiffanie DAN Provider: Naomi Zimmerman MD :1960 A ge:63 Y S ex:Female Date:07/13/2023 Address:[address] [place] [place], [place] Subjective: * Chief Complaints: * 1 . Prolia. * Medical History: Objective: * Vitals: Assessment: Plan: * Treatment: * Billing Information: * Visit Code: * Procedure Codes: * Electronic signature of Mauricio Zimmerman MD on 12/01/2024 at 11:29 AM CDT Sign off status: Pending * Provider: Naomi Zimmerman MD Date: 0 07/13/2023 Generated for Adalbertoi ng/Fasandipg/eTransmitting on: 1 11:29 AM CDT
--- OUTSIDE RECORDS SUMMARY | 2023-12-22 16:00 | XMS_ITS ---
Author Organization [facility] Address [address] [address] Care Team Providers Care Student Activities Director Name Role Phone Kathi Aragon Primary Care Provider Migration, Provider Unavailable Unavailable Allergies Allergen (clinical drug ingredient) Drug/Non Drug Allergy documented on EMR Reaction Allergy Type Onset Date Status meperidine Meperidine Unknown Drug Allergy Activ e codeine Codeine Unknown Drug Allergy Active levofloxacin levoFLOXacin Unknown Drug Allergy A ctive gabapentin Gabapentin Unknown Drug Allergy Activ e doxycycline Doxycycline Unknown Drug Allergy Act miguel REASON FOR VISIT [facility] To [facility] Conversion Encounter Medications Medication SIG (Take, Route, Frequency, Duration) Notes Start Date End Date Status GVOKE HYPOPEN TWO PACK 1 MG/0.2 ML DIRECTED SUBCUTANEOUSLY ONCE; Duration: 1 DAYS *Please review for potential replacement for e-prescription and drug interaction check* 06/14/2023 Unknown Xanax 0.5 MG 1 tab(s) orally at bedtime; Duration: 90 days 11/07/2023 Active Prolia 60 MG/ML as directed subcutaneously every 6 months; Duration: 180 days 05/09/2023 Unknown Prolia 60 MG/ML as directed subcutaneously every 6 months; Duration: 180 days 06/07/2023 Unknown GVOKE HYPOPEN TWO PACK 1 MG/0.2 ML DIRECTED SUBCUTANEOUSLY ONCE NEEDED FOR SUGARS UNDER 50 MG/DL; Duration: 1 DAYS *Please review for potential replacement for e-prescription and drug interaction check* 12/21/2023 Active GVOKE HYPOPEN ONE PACK 1 MG/0.2 ML DIRECTED SUBCUTANEOUSLY ONCE; Duration: 1 DAYS *Please review for potential replacement for e-prescription and drug interaction check* 03/30/2023 Unknown Prolia 60 MG/ML as directed subcutaneously every 6 months; Duration: 1 days 03/30/2023 Unknown Magnesium Oxide 500 MG 1 TAB(S) ORALLY ONCE A DAY *Please review and pick correct strength-formulat ion from [employer] options. If intended option is not shown, discontinue and re-order from Quick Search* Unknown Levothyroxine Sodium 88 MCG 1 tab(s) orally once a day Unknown Potassium Citrate ER 10 MEQ (1080 MG) 1 tab(s) orally 3 times a day Unknown buPROPion HCl ER (XL) 300 MG 1 tab(s) orally every 24 hours Unknown Aspirin 81 MG 1 tab(s) orally once a day Unknown Pravastatin Sodium 80 MG 1 tab(s) orally once a day Unknown Albuterol Sulfate HFA 108 (90 Base) MCG/ACT 2 puff(s) inhaled every 6 hours Unknown tiZANidine HCl 4 MG 2 cap(s) orally 3 times a day Unknown Prolia 60 MG/ML as directed subcutaneously every 6 months; Duration: 12 days 05/25/2023 Unknown HYDROcodone Bitartrate ER 10 MG 1 cap(s) orally every 12 hours 1 TABLET EVERY 6 HOURS FOR PAIN Unknown Iron Up 10 MG/0.3 ML 1 ML ORALLY TWICE DAILY WITH MEALS; Duration: 90 DAYS *Please review and pick correct strength-formulat ion from [employer] options. If intended option is not shown, discontinue and re-order from Quick Search* 05/18/2023 Unknown Eszopiclone 3 MG 1 tab(s) orally once a day (at bedtime) Unknown Estradiol 1 MG/1 G (0.1%) 1 EA TRANSDERMALLY ONCE A DAY *Please review and pick correct strength-formulat ion from [employer] options. If intended option is not shown, discontinue and re-order from Quick Search* Unknown Ferrous Sulfate 300 MG/5 ML 5 ML ORALLY ONCE A DAY; Duration: 90 DAYS *Please review and pick correct strength-formulat ion from [employer] options. If intended option is not shown, discontinue and re-order from Quick Search* 06/15/2023 Unknown Pregabalin 75 MG 1 cap(s) orally 2 times a day; Duration: 30 days 10/27/2023 Unknown Pregabalin 100 MG 1 cap(s) orally 2 times a day; Duration: 30 days 10/30/2023 Unknown Cyanocobalamin 1000 MCG/ML inject 1000 mcg subcutaneously once weekly; Duration: 90 days 06/25/2023 Unknown Denosumab 60 MG/ML INJECT 60 MG SUBCUTANEOUSLY EVERY 6 MONTHS; Duration: 1 DAYS *Please review and pick correct strength-formulat ion from [employer] options. If intended option is not shown, discontinue and re-order from Quick Search* 06/28/2023 Unknown GVOKE HYPOPEN TWO PACK 1 MG/0.2 ML INJECT 1 MG NEEDED SUBCUTANEOUSLY ONCE; Duration: 1 DAYS *Please review for potential replacement for e-prescription and drug interaction check* 06/15/2023 Unknown Encounters Encounter Location Date Provider Diagnosis [facility] [address] [place] [address] 12/22/2023 Provider Migration Type 2 diabetes mellitus with hypoglycemia without coma E11.649 and Insomnia due to medical condition G47.01 Assessments Encounter Date Diagnosis (ICD Code) Assessment Notes Treatment Notes Treatment Clinical Notes Section Notes 12/22/2023 Type 2 diabetes mellitus with hypoglycemia without coma (ICD-10 - E11.649) 12/22/2023 Insomnia due to medical condition (ICD-10 - G47.01) Plan Of Treatment Medication Medication Name Sig Start Date Stop Date Notes Xanax 0.5 MG 1 tab(s) orally at bedtime; Duration: 90 days 11/07/2023 GVOKE HYPOPEN TWO PACK 1 MG/0.2 ML DIRECTED SUBCUTANEOUSLY ONCE NEEDED FOR SUGARS UNDER 50 MG/DL; Duration: 1 DAYS 12/21/2023 *Please review for potential replacement for e-prescription and drug interaction check* Progress Notes * Javon GRESHAMOB:[birth year] (64 yo F)Acc No.[id number]:12/22/2023 Patient: Tiffanie DAN Provider: Karissa liu Migration :1960 A ge:63 Y S ex:Female Date:12/22/2023 [id number] Pcp:Kathi Aragon Subjective: * Chief Complaints: * 1 . [facility] [employer] Conversion Encounter. * Medical History: * Medications: U nknown GVOKE HYPOPEN TWO PACK 1 MG/0.2 ML SOLUTION INJECT 1 MG NEEDED SUBCUTANEOUSLY ONCE , Notes to Pharmacist: *Please review for potential replacement for e-prescription and drug interaction check*, Unknown Ferrous Sulfate 300 MG/5 ML LIQUID 5 ML ORALLY ONCE A DAY , Notes to Pharmacist: *Please review and pick correct strength-formulation from [employer] options. If intended option is not shown, discontinue and re-order from Quick Search*, Unknown Cyanocobalamin 1000 MCG/ML Solution inject 1000 mcg subcutaneously once weekly , Unknown Denosumab 60 MG/ML SOLUTION INJECT 60 MG SUBCUTANEOUSLY EVERY 6 MONTHS , Notes to Pharmacist: *Please review and pick correct strength-formulation from [employer] options. If intended option is not shown, discontinue and re-order from Quick Search*, Unknown Pregabalin 75 MG Capsule 1 cap(s) orally 2 times a day , Unknown Pregabalin 100 MG Capsule 1 cap(s) orally 2 times a day , Unknown Iron Up 10 MG/0.3 ML LIQUID 1 ML ORALLY TWICE DAILY WITH MEALS , Notes to Pharmacist: *Please review and pick correct strength-formulation from [employer] options. If intended option is not shown, discontinue and re-order from Quick Search*, Unknown Prolia(Denosumab) 60 MG/ML Solution Prefilled Syringe as directed subcutaneously every 6 months , Unknown HYDROcodone Bitartrate ER 10 MG Capsule Extended Release 12 Hour 1 cap(s) orally every 12 hours , Notes to Pharmacist: 1 TABLET EVERY 6 HOURS FOR PAIN, Unknown Eszopiclone 3 MG Tablet 1 tab(s) orally once a day (at bedtime) , Unknown Estradiol 1 MG/1 G (0.1%) GEL 1 EA TRANSDERMALLY ONCE A DAY , Notes to Pharmacist: *Please review and pick correct strength-formulation from [employer] options. If intended option is not shown, discontinue and re-order from Quick Search*, Unknown buPROPion HCl ER (XL) 300 MG Tablet Extended Release 24 Hour 1 tab(s) orally every 24 hours , Unknown Aspirin 81 MG Tablet Delayed Release 1 tab(s) orally once a day , Unknown Albuterol Sulfate HFA 108 (90 Base) MCG/ACT Aerosol Solution 2 puff(s) inhaled every 6 hours , Unknown tiZANidine HCl 4 MG Tablet 2 cap(s) orally 3 times a day , Unknown Pravastatin Sodium 80 MG Tablet 1 tab(s) orally once a day , Unknown Potassium Citrate ER 10 MEQ (1080 MG) Tablet Extended Release 1 tab(s) orally 3 times a day , Unknown Magnesium Oxide 500 MG TABLET 1 TAB(S) ORALLY ONCE A DAY , Notes to Pharmacist: *Please review and pick correct strength-formulation from [employer] options. If intended option is not shown, discontinue and re-order from Quick Search*, Unknown Levothyroxine Sodium 88 MCG Tablet 1 tab(s) orally once a day , Unknown GVOKE HYPOPEN ONE PACK 1 MG/0.2 ML SOLUTION DIRECTED SUBCUTANEOUSLY ONCE , Notes to Pharmacist: *Please review for potential replacement for e-prescription and drug interaction check*, Unknown Prolia(Denosumab) 60 MG/ML Solution Prefilled Syringe as directed subcutaneously every 6 months , Unknown Prolia(Denosumab) 60 MG/ML Solution Prefilled Syringe as directed subcutaneously every 6 months , Unknown Prolia(Denosumab) 60 MG/ML Solution Prefilled Syringe as directed subcutaneously every 6 months , Unknown GVOKE HYPOPEN TWO PACK 1 MG/0.2 ML SOLUTION DIRECTED SUBCUTANEOUSLY ONCE , Notes to Pharmacist: *Please review for potential replacement for e-prescription and drug interaction check* * Allergies: C odeine, Meperidine, Doxycycline, Gabapentin, levoFLOXacin. Objective: * Vitals: Assessment: * Assessment: 1. T ype 2 diabetes mellitus with hypoglycemia without coma - E11.649 (Primary) ?2. I nsomnia due to medical condition - G47.01 (Primary) Plan: * Treatment: 2. I nsomnia due to medical condition Start Xanax Tablet, 0.5 MG, 1 tab(s), orally, at bedtime, 90 days, 90, Refills 1. * Billing Information: * Visit Code: * Procedure Codes: * Electronic signature of Prov ider Migration on 12/01/2024 at 11:30 AM CDT Sign off status: Pending * Provider: Karissa liu Migration Date: 02/20/2023 Generated for Raimla baldwin/Hernando/Ferny on: 11:30 AM CDT
--- OUTSIDE RECORDS SUMMARY | 2023-12-22 16:00 | XMS_ITS ---
Author Organization [facility] Address [address] [place] [address] Care Team Providers Care Seasoner Hand Name Role Phone Kathi Aragon Unavailable [phone] Migration, Provider Unavailable Unavailable Allergies Allergen (clinical drug ingredient) Drug/Non Drug Allergy documented on EMR Reaction Allergy Type Onset Date Status gabapentin Gabapentin Unknown Drug Allergy Activ e levofloxacin levoFLOXacin Unknown Drug Allergy A ctive doxycycline Doxycycline Unknown Drug Allergy Act miguel codeine Codeine Unknown Drug Allergy Active meperidine Meperidine Unknown Drug Allergy Activ e REASON FOR VISIT [facility] Conversion Encounter Medications Medication SIG (Take, Route, Frequency, Duration) Notes Start Date End Date Status Levothyroxine Sodium 88 MCG Tablet 1 tab(s) orally once a day Unknown Gvoke HypoPen One Pack 1 MG/0.2 ML SOLUTION DIRECTED SUBCUTANEOUSLY ONCE; Duration: 1 DAYS *Please review for potential replacement for e-prescription and drug interaction check* *Reorder from [facility] for eRx and Interaction Alerts* 03/30/2023 Unknown Prolia 60 MG/ML Solution Prefilled Syringe as directed subcutaneously every 6 months; Duration: 1 days 03/30/2023 Unknown Prolia 60 MG/ML Solution Prefilled Syringe as directed subcutaneously every 6 months; Duration: 180 days 05/09/2023 Unknown Prolia 60 MG/ML Solution Prefilled Syringe as directed subcutaneously every 6 months; Duration: 180 days 06/07/2023 Unknown tiZANidine HCl 4 MG Tablet 2 cap(s) orally 3 times a day Unknown Pravastatin Sodium 80 MG Tablet 1 tab(s) orally once a day Unknown Potassium Citrate ER 10 MEQ (1080 MG) Tablet Extended Release 1 tab(s) orally 3 times a day Unknown Magnesium Oxide 500 MG TABLET 1 TAB(S) ORALLY ONCE A DAY *Please review and pick correct strength-formulat ion from [employer] options. If intended option is not shown, discontinue and re-order from Quick Search* *Pick strength-form from [employer] for eRX* Unknown Albuterol Sulfate HFA 108 (90 Base) MCG/ACT Aerosol Solution 2 puff(s) inhaled every 6 hours Unknown HYDROcodone Bitartrate ER 10 MG Capsule Extended Release 12 Hour 1 cap(s) orally every 12 hours 1 TABLET EVERY 6 HOURS FOR PAIN Unknown Eszopiclone 3 MG Tablet 1 tab(s) orally once a day (at bedtime) Unknown Estradiol 1 MG/1 G (0.1%) GEL 1 EA TRANSDERMALLY ONCE A DAY *Please review and pick correct strength-formulat ion from [employer] options. If intended option is not shown, discontinue and re-order from Quick Search* *Pick strength-form from [employer] for eRX* Unknown buPROPion HCl ER (XL) 300 MG Tablet Extended Release 24 Hour 1 tab(s) orally every 24 hours Unknown Aspirin 81 MG Tablet Delayed Release 1 tab(s) orally once a day Unknown Denosumab 60 MG/ML SOLUTION INJECT 60 MG SUBCUTANEOUSLY EVERY 6 MONTHS; Duration: 1 DAYS *Please review and pick correct strength-formulat ion from [employer] options. If intended option is not shown, discontinue and re-order from Quick Search* *Pick strength-form from [employer] for eRX* 06/28/2023 Unknown Pregabalin 75 MG Capsule 1 cap(s) orally 2 times a day; Duration: 30 days 10/27/2023 Unknown Pregabalin 100 MG Capsule 1 cap(s) orally 2 times a day; Duration: 30 days 10/30/2023 Unknown Iron Up 10 MG/0.3 ML LIQUID 1 ML ORALLY TWICE DAILY WITH MEALS; Duration: 90 DAYS *Please review and pick correct strength-formulat ion from [employer] options. If intended option is not shown, discontinue and re-order from Quick Search* *Pick strength-form from [employer] for eRX* 05/18/2023 Unknown Prolia 60 MG/ML Solution Prefilled Syringe as directed subcutaneously every 6 months; Duration: 12 days 05/25/2023 Unknown GVOKE HYPOPEN TWO PACK 1 MG/0.2 ML SOLUTION DIRECTED SUBCUTANEOUSLY ONCE NEEDED FOR SUGARS UNDER 50 MG/DL; Duration: 1 DAYS *Please review for potential replacement for e-prescription and drug interaction check* *Reorder from [employer] for eRx and Interaction Alerts* 12/21/2023 Active GVOKE HYPOPEN TWO PACK 1 MG/0.2 ML SOLUTION INJECT 1 MG NEEDED SUBCUTANEOUSLY ONCE; Duration: 1 DAYS *Please review for potential replacement for e-prescription and drug interaction check* *Reorder from [employer] for eRx and Interaction Alerts* 06/15/2023 Unknown Ferrous Sulfate 300 MG/5 ML LIQUID 5 ML ORALLY ONCE A DAY; Duration: 90 DAYS *Please review and pick correct strength-formulat ion from [employer] options. If intended option is not shown, discontinue and re-order from Quick Search* *Pick strength-form from [employer] for eRX* 06/15/2023 Unknown Xanax 0.5 MG Tablet 1 tab(s) orally at bedtime; Duration: 90 days 11/07/2023 Active Cyanocobalamin 1000 MCG/ML Solution inject 1000 mcg subcutaneously once weekly; Duration: 90 days 06/25/2023 Unknown GVOKE HYPOPEN TWO PACK 1 MG/0.2 ML SOLUTION DIRECTED SUBCUTANEOUSLY ONCE; Duration: 1 DAYS *Please review for potential replacement for e-prescription and drug interaction check* *Reorder from [employer] for eRx and Interaction Alerts* 06/14/2023 Unknown Encounters Encounter Location Date Provider Diagnosis [address] [id number] 12/22/2023 Provider Migration Type 2 diabetes mellitus [...] Name Sig Start Date Stop Date Notes GVOKE HYPOPEN TWO PACK 1 MG/0.2 ML SOLUTION DIRECTED SUBCUTANEOUSLY ONCE NEEDED FOR SUGARS UNDER 50 MG/DL; Duration: 1 DAYS 12/21/2023 *Please review for potential replacement for e-prescription and drug interaction check* *Reorder from [employer] for eRx and Interaction Alerts* Xanax 0.5 MG Tablet 1 tab(s) orally at bedtime; Duration: 90 days 11/07/2023 Progress Notes * Javon GRESHAMOB:[birth year] (64 yo F)Acc No.[id number]:12/22/2023 Patient: Tiffanie Bruner Provider: Karissa Quinones :1960 A ge:63 Y S ex:Female Date:12/22/2023 [facility] [facility] Subjective: * Chief Complaints: * [facility] * Medications: U nknownGVOKE HYPOPEN TWO PACK 1 MG/0.2 ML SOLUTION INJECT 1 MG NEEDED SUBCUTANEOUSLY ONCE , Notes to Pharmacist: *Please review for potential replacement for e-prescription and drug interaction check* *[facility] Alert[facility]*Ferrous Sulfate 300 MG/5 ML LIQUID 5 ML ORALLY ONCE A DAY , Notes to Pharmacist: *Please review and pick correct strength-formulation from [employer] options. If intended option is not shown, discontinue and re-order from Quick Search* *[facility] for [facility]*Cyanocobalamin 1000 MCG/ML Solution inject 1000 mcg subcutaneously once weekly Denosumab 60 MG/ML SOLUTION INJECT 60 MG SUBCUTANEOUSLY EVERY 6 MONTHS , Notes to Pharmacist: *Please review and pick correct strength-formulation from [employer] options. If intended option is not shown, discontinue and re-order from Quick Search* *[facility] for [facility]*Pregabalin 75 MG Capsule 1 cap(s) orally 2 times a day Pregabalin 100 MG Capsule 1 cap(s) orally 2 times a day Iron Up 10 MG/0.3 ML LIQUID 1 ML ORALLY TWICE DAILY WITH MEALS , Notes to Pharmacist: *Please review and pick correct strength-formulation from [employer] options. If intended option is not shown, discontinue and re-order from Quick Search* *[facility] from [facility] for [facility]RX*Prolia 60 MG/ML Solution Prefilled Syringe as directed subcutaneously every 6 months HYDROcodone Bitartrate ER 10 MG Capsule Extended Release 12 Hour 1 cap(s) orally every 12 hours , Notes to Pharmacist: 1 TABLET EVERY 6 HOURS FOR PAINEszopiclone 3 MG Tablet 1 tab(s) orally once a day (at bedtime) Estradiol 1 MG/1 G (0.1%) GEL 1 EA TRANSDERMALLY ONCE A DAY , Notes to Pharmacist: *Please review and pick correct strength-formulation from [employer] options. If intended option is not shown, discontinue and re-order from Quick Search* *Pick strength-form from [employer] for eRX*buPROPion HCl ER (XL) 300 MG Tablet Extended Release 24 Hour 1 tab(s) orally every 24 hours Aspirin 81 MG Tablet Delayed Release 1 tab(s) orally once a day Albuterol Sulfate HFA 108 (90 Base) MCG/ACT Aerosol Solution 2 puff(s) inhaled every 6 hours tiZANidine HCl 4 MG Tablet 2 cap(s) orally 3 times a day Pravastatin Sodium 80 MG Tablet 1 tab(s) orally once a day Potassium Citrate ER 10 MEQ (1080 MG) Tablet Extended Release 1 tab(s) orally 3 times a day Magnesium Oxide 500 MG TABLET 1 TAB(S) ORALLY ONCE A DAY , Notes to Pharmacist: *Please review and pick correct strength-formulation from [employer] options. If intended option is not shown, discontinue and re-order from Quick Search* *Pick strength-form from [employer] for eRX*Levothyroxine Sodium 88 MCG Tablet 1 tab(s) orally once a day Gvoke HypoPen One Pack 1 MG/0.2 ML SOLUTION DIRECTED SUBCUTANEOUSLY ONCE , Notes to Pharmacist: *Please review for potential replacement for e-prescription and drug interaction check* *Reorder from [employer] for eRx and Interaction Alerts*Prolia 60 MG/ML Solution Prefilled Syringe as directed subcutaneously every 6 months Prolia 60 MG/ML Solution Prefilled Syringe as directed subcutaneously every 6 months Prolia 60 MG/ML Solution Prefilled Syringe as directed subcutaneously every 6 months GVOKE HYPOPEN TWO PACK 1 MG/0.2 ML SOLUTION DIRECTED SUBCUTANEOUSLY ONCE , Notes to Pharmacist: *Please review for potential replacement for e-prescription and drug interaction check* *Reorder from [employer] for eRx and Interaction Alerts*Unknown GVOKE HYPOPEN TWO PACK 1 MG/0.2 ML SOLUTION INJECT 1 MG NEEDED SUBCUTANEOUSLY ONCE , Notes to Pharmacist: *Please review for potential replacement for e-prescription and drug interaction check* *Reorder from [employer] for eRx and Interaction Alerts*Unknown Ferrous Sulfate 300 MG/5 ML LIQUID 5 ML ORALLY ONCE A DAY , Notes to Pharmacist: *Please review and pick correct strength-formulation from [employer] options. If intended option is not shown, discontinue and re-order from Quick Search* *Pick strength-form from [employer] for eRX*Unknown Cyanocobalamin 1000 MCG/ML Solution inject 1000 mcg subcutaneously once weekly Unknown Denosumab 60 MG/ML SOLUTION INJECT 60 MG SUBCUTANEOUSLY EVERY 6 MONTHS , Notes to Pharmacist: *Please review and pick correct strength- formulation from [employer] options. If intended option is not shown, discontinue and re-order from Quick Search* *Pick strength-form from [employer] for eRX*Unknown Pregabalin 75 MG Capsule 1 cap(s) orally 2 times a day Unknown Pregabalin 100 MG Capsule 1 cap(s) orally 2 times a day Unknown Iron Up 10 MG/0.3 ML LIQUID 1 ML ORALLY TWICE DAILY WITH MEALS , Notes to Pharmacist: *Please review and pick correct strength- formulation from [employer] options. If intended option is not shown, discontinue and re-order from Quick Search* *Pick strength-form from [employer] for eRX*Unknown Prolia 60 MG/ML Solution Prefilled Syringe as directed subcutaneously every 6 months Unknown HYDROcodone Bitartrate ER 10 MG Capsule Extended Release 12 Hour 1 cap(s) orally every 12 hours , Notes to Pharmacist: 1 TABLET EVERY 6 HOURS FOR PAINUnknown Eszopiclone 3 MG Tablet 1 tab(s) orally once a day (at bedtime) Unknown Estradiol 1 MG/1 G (0.1%) GEL 1 EA TRANSDERMALLY ONCE A DAY , Notes to Pharmacist: *Please review and pick correct strength-formulation from [employer] options. If intended option is not shown, discontinue and re-order from Quick Search* *Pick strength-form from [employer] for eRX*Unknown buPROPion HCl ER (XL) 300 MG Tablet Extended Release 24 Hour 1 tab(s) orally every 24 hours Unknown Aspirin 81 MG Tablet Delayed Release 1 tab(s) orally once a day Unknown Albuterol Sulfate HFA 108 (90 Base) MCG/ACT Aerosol Solution 2 puff(s) inhaled every 6 hours Unknown tiZANidine HCl 4 MG Tablet 2 cap(s) orally 3 times a day Unknown Pravastatin Sodium 80 MG Tablet 1 tab(s) orally once a day Unknown Potassium Citrate ER 10 MEQ (1080 MG) Tablet Extended Release 1 tab(s) orally 3 times a day Unknown Magnesium Oxide 500 MG TABLET 1 TAB(S) ORALLY ONCE A DAY , Notes to Pharmacist: *Please review and pick correct strength-formulation from [employer] options. If intended option is not shown, discontinue and re-order from Quick Search* *Pick strength-form from [employer] for eRX*Unknown Levothyroxine Sodium 88 MCG Tablet 1 tab(s) orally once a day Unknown Gvoke HypoPen One Pack 1 MG/0.2 ML SOLUTION DIRECTED SUBCUTANEOUSLY ONCE , Notes to Pharmacist: *Please review for potential replacement for e-prescription and drug interaction check* *Reorder from [employer] for eRx and Interaction Alerts*Unknown Prolia 60 MG/ML Solution Prefilled Syringe as directed subcutaneously every 6 months Unknown Prolia 60 MG/ML Solution Prefilled Syringe as directed subcutaneously every 6 months Unknown Prolia 60 MG/ML Solution Prefilled Syringe as directed subcutaneously every 6 months Unknown GVOKE HYPOPEN TWO PACK 1 MG/0.2 ML SOLUTION DIRECTED SUBCUTANEOUSLY ONCE , Notes to Pharmacist: *Please review for potential replacement for e-prescription and drug interaction check* *Reorder from [employer] for eRx and Interaction Alerts* * Allergies: C odeineMeperidineDoxycyclineGabapentinlevoFLOXacin Assessment: * Assessment: 1. T ype 2 diabetes mellitus with hypoglycemia without coma - E11.649 (Primary) ?2. I nsomnia due to medical condition - G47.01 (Primary) Plan: * Treatment: 2. I nsomnia due to medical condition Start Xanax Tablet, 0.5 MG, 1 tab(s), orally, at bedtime, 90 days, 90, Refills 1. * Electronic signature of Prov ider Migration on 12/01/2024 at 11:31 AM CDT Sign off status: Pending * Provider: Karissa liu Migration Date: 02/20/2023 Generated for Ramila baldwin/[place]/Chandnismitting on: 11:31 AM CDT
--- OUTSIDE RECORDS SUMMARY | 2024-01-11 05:00 | XMS_ITS ---
Author Organization [facility] Address [address] [place] [address] Care Team Providers Care Cone Machine Feeder Name Role Phone Kathi Zimmerman Primary Care Provider REASON FOR VISIT FOLLOW UP/PROLIA MV Encounters Encounter Location Date Provider Diagnosis 20x200 & DIAGNOSTIC, [facility] - Kathi Zimmerman [address] [place] [address] 01/11/2024 Kathi Zimemrman Plan Of Treatment No Information Progress Notes * Javon GRESHAMOB:[birth year] (64 yo F)Acc No.[id number]:01/11/2024 Progress Notes Patient: Tiffanie DAN Provider: Naomi Zimmerman MD :1960 A ge:63 Y S ex:Female Date:01/11/2024 Address:[address] [place], [place]-[id number] Subjective: * Chief Complaints: * 1 . FOLLOW UP/PROLIA MV. * Medical History: Objective: * Vitals: Assessment: Plan: * Treatment: * Billing Information: * Visit Code: * Procedure Codes: * Electronic signature of Mauricio Zimmerman MD on 12/01/2024 at 11:31 AM CDT Sign off status: Pending * Provider: Naomi Zimmerman MD Date: 03/13/2023 Generated for Ramila ng/Fasandipg/eTransmitting on: 11:31 AM CDT
--- OUTSIDE RECORDS SUMMARY | 2024-04-02 05:15 | XMS_ITS ---
Author Organization [facility] justice Address [address] [facility] [address] [place] [address] Care Team Providers Care Sexer Name Role Phone Shelly HALE, Jona Primary Care Provider Unavaila Mary Trent Unavailable [phone] REASON FOR VISIT 1 year f/u Encounters Encounter Location Date Provider Diagnosis [facility] [address] [facility] [address] [place] [address] 04/02/2024 Mary Saul Plan Of Treatment No Information Progress Notes * JOSEPHTiffanie ADOB: (64 yo F)Acc No.[id number]:04/02/2024 Progress Notes Patient: Tiffanie DAN Appointment Provider: Fior SAUL MD :1960 A ge:64 Y S ex:Female Date:04/02/2024 [facility] Pcp:Jona Bravo MD Subjective: * Chief Complaints: * 1 . 1 year f/u. * Medical History: Objective: * Vitals: Assessment: Plan: * Treatment: * Billing Information: * Visit Code: * Procedure Codes: * Electronic signature of Mary Saul MD on 12/01/2024 at 11:30 AM CDT Sign off status: Pending * Appointment Provider: Fior SAUL MD Date: 0 04/02/2024 Generated for Printi ng/Faxing/eTransmitting on: 1 11:30 AM CDT
--- OUTSIDE RECORDS SUMMARY | 2024-07-24 04:20 | XMS_ITS ---
Author Organization [facility] Address [address] [place] [address] Care Team Providers Care Business Transformation Manager Name Role Phone Kathi Zimmerman [phone] REASON FOR VISIT Prolia shot/ Dst review Encounters Encounter Location Date Provider Diagnosis [facility] Dr[address] Zimmerman [address] [place] [address] 07/24/2024 Kathi Zimmerman Plan Of Treatment No Information Progress Notes * Javon GRESHAMOB:[birth year] (64 yo F)Acc No.[id number]:07/24/2024 Progress Notes Patient: Tiffanie Bruner Provider: Naomi Zimmerman MD :1960 A ge:64 Y S ex:Female Date:07/24/2024 [address] [id number] Subjective: * Chief Complaints: * P rolia shot/ Dst review * Electronic signature of Mauricio Zimmerman MD on 12/01/2024 at 11:31 AM CDT Sign off status: Pending * Provider: Naomi Zimmerman MD Date: 0 07/24/2024 Generated for Printi ng/Faxing/eTransmitting on: 1 11:31 AM CDT
--- NOTE | ~2024-12-01 | XR_ITS ---
EXAMINATION: XR abdomen/kub 1V, 12/01/2024 10:24 CDT HISTORY: bilateral renal stones COMPARISON: No comparisons available. Technique: 3 view. Findings: Bowel gas pattern unremarkable. No obstruction. Fecal content limits evaluation, no renal calculi are definitely identified No acute osseous abnormality. Impression: 1. No acute abnormality. Reviewed, dictated and finalized at location P. Impression: 1. No acute abnormality.
--- OUTSIDE RECORDS SUMMARY | 2024-12-01 11:29 | XMS_ITS | Encounter Summary ---
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 [address] [facility] ([facility] Mailstop [phone] [place] [address] [facility] Outpatient Aircraft Instrument Mechanic 10/12/21 11/09/21 Roscoe Mccollum MD [address] [facility] ([facility] Mailstop [phone] [place] [address] Anesthesiologist Pain Management 12/21/21 documented as of this encounter
--- OUTSIDE RECORDS SUMMARY | 2024-12-01 11:29 | XMS_ITS | Encounter Summary ---
Author Organization [facility] Address [address] [place] [address] Care Team Providers Care Data Conversion Operator Name Role Phone Jona Bravo MD Primary Care Provider + Desire Sams RN Unavailable Un available Pooja [place] LCSW Unavailable [phone] Roscoe Mccollum MD Unavailable [phone] Encounter Details Date Type Department Care Team (Late st Contact Info) Description 09/17/[address] [facility] [address] [place] [address] Kim Gagnon, RT Social History Tobacco Use [...] on file Legal Sex Female 12:46 AM 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 Gender Identity Female 04/08/2019 6:15 AM SENIOR 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 Sexual Orientation Straight 04/08/2019 6: 15 AM SENIOR 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 documented as of this encounter Plan of Treatment Not on file documented as of this encounter Visit Diagnoses Not on filedocumented in this encounter Care Teams Data Conversion Operator Relationship Specialty Start Date End Date Jona Bravo MD PCP - General 05/05/16 Desire Sams, RN Registered Nurse 04/03/17 Pooja [place], RECREATIONAL THERAPY AIDE [address] [facility] ([facility] Mailstop [phone] [place], [place] [phone] [facility] Outpatient Mandolin Repairer 10/12/21 11/09/21 Roscoe Mccollum MD [address] [facility] ([facility] Mailstop [phone] [place] [address] Anesthesiologist Pain Management 12/21/21 documented as of this encounter
--- OUTSIDE RECORDS SUMMARY | 2024-12-01 11:29 | XMS_ITS | Encounter Summary ---
Author Organization [facility] Address [address] [place] [address] Phone Care Team Providers Care Diamond Sizer And Sorter Name Role Phone Jona Bravo MD Primary Care Provider + Desire Sams RN Unavailable Un available Pooja [place] LCSW Unavailable [phone] Roscoe Mccollum MD Unavailable [phone] Encounter Details Date Type Department Care Team [...] on file Legal Sex Female 12:46 AM CLIENT OPERATIONS MANAGER Gender Identity Female 04/08/2019 6:15 AM CLIENT OPERATIONS MANAGER Sexual Orientation Straight 04/08/2019 6: 15 AM CLIENT OPERATIONS MANAGER Occupation Industry Job Start Date Job End [...] on filedocumented in this encounter Care Teams Diamond Sizer And Sorter Relationship Specialty Start Date End Date Jona Bravo MD PCP - General 05/05/16 Desire Sams, RN Registered Nurse 04/03/17 Pooja [place], BOX WORKER [address] [facility] ([facility] Mailstop [phone] [place] [address] [facility] Outpatient Community Outreach Advocate 10/12/21 11/09/21 Roscoe Mccollum MD [address] [facility] ([facility] Mailstop [phone] [place] [address] Anesthesiologist Pain Management 12/21/21 documented as of this encounter
--- OUTSIDE RECORDS SUMMARY | 2024-12-01 11:29 | XMS_ITS | Encounter Summary ---
Author Organization [facility] Address [address] [place] [address] Care Team Providers Care Green Chain Marker Name Role Phone Jona Bravo MD Primary Care Provider [phone] Reason for Visit * Reason Comments Clinical Consult Before Scheduling Encounter Details Date Type Department Care Team (Late st Contact Info) Description 02/11/2024 Telephone [facility] Primary Care [address] [place] [address] Jona Bravo MD [address] 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 Topic: Symptomatic Care >> Feb 11, 2024 4:22 PM Connie Ardon wrote: Caller has new symptoms and is seeking care. Age Range/Symptom: Adult: 18+ - Cold, Flu, COVID, Sinus, Hay Fever, Allergies, Cough, Fever Does patient have any of the following other urgent symptoms: No urgent symptoms requiring warm call transfer Caller Name: Tiffanie Ruiz Callback Number: [phone] Call Notes: She has been sick since 01/31/2024. She went to the Urgent care ([facility]), yesterday. Where they prescribed steroids, and gave x-ray. She Is still suffering from cough, raspy throat, chest aches, and head congestion. Emergency inhaler not working well Refer to - [facility] (02/11/2024) She is scheduled with [facility] on 02/14/2024 Unable to schedule appointment within patient's desired timeframe. Patient declined all other options for immediate care, preferring to schedule first available. Scheduled appointment for 02/14/24 at3pm . If this is not clinically appropriate, please contact patient. No SION CHAIR documented in this encounter Plan of Treatment Upcoming Encounters Date Type Department Care Team (Late st Contact Info) Description 02/03/2025 10:00 AM DIVISION CHAIR Office Visit [facility] [address] [facility] [address] [place] [phone] Tami Thorne PA-C [address] [facility] [address] [place] [address] 03/04/2025 2:40 PM DIVISION CHAIR Office Visit [facility] Primary Care [facility] [address] [facility] [address] [place] [phone] Jona Bravo MD [address] [facility] [place] [place] [address] [place] [phone] 04/30/2025 10:15 AM CDT Office Visit [facility] - [facility] [address] [facility] [facility] [address] [place] [address] Benjamin Taveras MD [address] [facility] [address] [place] [address] documented as of this encounter Visit Diagnoses Not on filedocumented in this encounter Care Teams Green Chain Marker Relationship Specialty Start Date End Date Jona Bravo MD PCP - General Internal Medicine 11/25/15 documented as of this encounter
--- OUTSIDE RECORDS SUMMARY | 2024-12-01 11:29 | XMS_ITS | Clinical Summary ---
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 Active albuterol HFA 90 mcg inhalerIndicatio ns:Mild intermittent asthma, unspecified whether complicated Take 2 Puffs by inhalation every 6 hours as needed for Shortness of Breath. 8.5 Gram 1 03/20/19 21 Active magnesium oxide 500 mg Tablet Take 500 mg by mouth daily. 07/24/19 21 Active aspirin (ECOTRIN EC) 81 mg Tablet, Delayed Release (E.C.) Take 81 mg by mouth daily. Active denosumab (Prolia) 60 mg/mL Syringe Inject 1 mL subcutaneously every 6 months. 1 mL 1 02/27/19 23 Active Additional Information Patient not taking.Reported on 10/30/2024 denosumab (Prolia) 60 mg/mL Syringe Inject 1 mL (60 mg) subcutaneously once every 6 months 1 mL 1 06/22/19 23 Active diclofenac sodium (VOLTAREN) 1 % gelIndications:R ight knee pain, unspecified chronicity Apply 2 Grams to affected area 4 times daily. 300 Gram 08/18/19 23 Active cyanocobalamin (Vitamin B-12) 1,000 mcg Tablet 1,000 mcg. Ac tive Zinc Gluconate 30 mg Tablet Take by oral route. 09/03/19 22 Active buPROPion HCL (WELLBUTRIN XL) 300 mg Extended Release 24 hour tablet Take 1 Tablet (300 mg) by mouth daily. 100 Tablet 3 12/07/19 24 Active DULoxetine (Cymbalta) 60 mg Capsule, Delayed Release(E.C.) Take 1 Capsule (60 mg) by mouth daily. 90 Capsule 3 12/07/19 24 Active albuterol sulfate HFA 90 mcg/actuation aerosol inhalerIndicatio ns:Other asthma Take 2 Puffs by inhalation every 6 hours as needed for Shortness of Breath. 8.5 Gram 1 12/26/19 24 Active fluticasone-umec lidinium-vilante rol (Trelegy Ellipta) 200-62.5-25 mcg Disk with Device Lot: [id number] ex: 09/2025 qty: 2 1 Each 02/12/19 25 Active fluticasone-umec lidinium-vilante rol (TRELEGY ELLIPTA) 100-62.5-25 mcg Disk with Device Lot: [id number] ex: 09/2025 qty: 2 1 Each 02/12/19 25 Active busPIRone (BUSPAR) 15 mg TabletIndication s:Anxiety state Take 1 Tablet (15 mg) by mouth 2 times daily. 200 Tablet 3 05/31/19 25 Active losartan (COZAAR) 100 mg tabletIndication s:Primary hypertension TAKE 1/2 (ONE-HALF) TABLET BY MOUTH TWICE DAILY 100 Tablet 3 06/12/19 25 Active levothyroxine 88 mcg tablet Take 1 Tablet (88 mcg) by mouth daily. 100 Tablet 3 07/22/19 25 Active tiZANidine (ZANAFLEX) 4 mg Tablet Take 1 Tablet (4 mg) by mouth every 8 hours as needed for Spasm. 90 Tablet 3 08/15/19 25 Active valACYclovir (Valtrex) 1 gram tablet Take 1 Tablet (1 Gram) by mouth daily. 90 Tablet 3 08/26/19 25 Active temazepam (RESTORIL) 15 mg capsule Take 15 mg by mouth nightly as needed for Insomnia. Active silver sulfADIAZINE (SILVADENE) 1 % Cream APPLY CREAM EXTERNALLY TO THE AFFECTED AREA (BURN ON HAND) ONCE DAILY 50 Gram 09/19/19 25 Active naloxone (NARCAN) 4 mg/spray [place], Non-Aerosol EMERGENCY USE ONLY: Administer 1 spray (4 mg) in one nostril one time. May repeat in alternating nostrils every 2-3 min until responsive or EMS arrives. 2 Each 3 10/18/19 25 Active potassium CITRATE (UROCIT-K) 10 mEq (1,080 mg) Extended Release tablet Take 10 mEq by mouth 3 times daily. Active omeprazole (PriLOSEC) 20 mg Capsule, Delayed Release(E.C.) TAKE 1 CAPSULE DAILY 90 Capsule 3 10/21/19 25 Active rosuvastatin (CRESTOR) 40 mg tablet Take 1 Tablet (40 mg) by mouth daily. 90 Tablet 3 10/31/19 25 Active gentamicin (GARAMYCIN) 0.3 % (3 mg/gram) ointment 0.5 Inches by See Admin Instructions route 2 times daily. To effected eye with sty 3.5 Gram 1 11/09/19 25 Active HYDROcodone-acet aminophen (NORCO) 10-325 mg TabletIndication s:Right knee pain, unspecified chronicity Take 1 Tablet by mouth every 4 hours as needed for Pain, Moderate. Max Daily Amount: 6 Tablets 42 Tablet 11/11/19 25 Active Active Problems Patient Care Coordination No te Formatting of this note migh t be different from the original. [id number] 06/22/23 Problem Noted Date Diagnosed Date Pure hypercholesterolemia 10/17/2024 Unstable angina 10/16/2024 History of melanoma 10/16/2024 RA (rheumatoid arthritis) 10/16/2024 Other osteoporosis without current pathological fracture 08/25/2024 Prediabetes 08/25/2024 Essential hypertension 02/13/2024 Asthma 12/17/2017 History of [...] Gastroesophageal reflux disease without esophagi tis 12/08/2015 [place] (nonalcoholic steatohepatitis) 12/08/2015 Abnormal glucose 12/08/2015 Other specified hypothyroidism [...] Encounters Date Type Department Care Team Description 11/08/2024 Telephone [facility] [address] [place] [address] Danielle Powell NP [facility] Primary Care After Hours 10/30/2024 10:30 AM CDT Office Visit [facility] [place] [address] [address] [place] [address] Benjamin Taveras MD Mixed hyperlipidemia (Primary Dx); Abnormal stress test 10/28/2024 External Device Data STL ABSTRACTION Provider, Abstract 10/28/2024 External Device Data STL ABSTRACTION Provider, Abstract 10/28/2024 External Device Data STL ABSTRACTION Provider, Abstract 10/22/2024 External Device Data STL ABSTRACTION Provider, Abstract 10/21/2024 External Device Data STL ABSTRACTION Provider, Abstract 10/21/2024 External Device Data STL ABSTRACTION Provider, Abstract 10/20/2024 10:00 AM CDT Office Visit [facility] [place] [id number] [address] Jona Bravo MD Immunization due (Primary Dx); DM type 2, goal HbA1c < 7% (CMS/HCC); Other hyperlipidemia; Other osteoporosis without current pathological fracture; Essential hypertension; History of stroke without residual deficits 10/17/2024 11:28 AM CDT - 10/17/2024 12:14 PM CDT Surgery [facility] 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 [address] [place] [address] Brett Morrow MD Left heart cath 10/16/2024 1:14 PM CDT - 10/17/2024 5:58 PM CDT Hospital Encounter [facility] Cardiac Progressive Care Unit [address] [place] [address] Amauri Rudd MD Mui, Rickie, DO Austin, Karen, MD Sangani, Vikram, MD Unstable angina ([facility]/HCC) Discharge Disposition: Home or Self Care 10/16/2024 10:15 AM CDT Office Visit [facility] [address] [address] [facility] [address] [place] [address] Benjamin Taveras MD Abnormal stress test (Primary Dx); Progressive angina (CMS/HCC) 10/16/2024 Travel 10/13/2024 10:00 AM CDT - 10/13/2024 11:59 PM CDT Hospital Encounter [facility] [address] [place] [address] Jona Bravo MD Discharge Disposition: Home or Self Care 10/13/2024 Results Follow-Up [address] [facility] [address] [place] [phone] Jona Bravo MD ECHO STRESS TEST EXERCISE 09/17/2024 Refill [facility] [address] [place] [address] Jona Bravo MD 09/10/2024 Results Follow-Up [facility] [address] [address] [place] [address] Bassam Sevilla MD CYTOLOGY, NON GYNE 09/05/2024 7:52 AM CDT - 09/05/2024 10:50 AM CDT Hospital Encounter [facility] [address] [place] [address] Bassam Sevilla MD Thyroid nodule Discharge Disposition: Home or Self Care from Last 3 Months Immunizations Immunization Administration Dates Next Due (ADACEL/BOOSTRIX)(10 YR UP) TDAP VACCINE, 0.5ML, IM 01/16/2021,02/05/2013,09/14/2011 (COMRINATY)(12YR UP) COVID-1 9 VACCINE, MRNA (PF)30 MCG/0.3 ML, IM SYRINGE 11/21/2024 (Moderna Bivalent)(6 Mos Up) COVID-19 Vaccine - Emergency Use Authorization, MRNA(Pf) 50 Mcg/0.5 Ml Im Susp 10/13/2021 (PFIZER DIMITRIS)(12 YR UP PRIMA RY SERIES) COVID-19 VACCINE - EMERGENCY USE AUTHORIZATION, MRNA, DIMITRIS(PF) 30 MCG/0.3 ML IM SUSP 01/08/2023 (PFIZER)(12 YR UP) COVID-19 VACCINE - EMERGENCY USE AUTHORIZATION, MRNA, [id number](PF) 30 MCG/0.3 ML IM SUSP 12/12/2020,04/29/2020,04/08/2020 (PNEUMOVAX 23)(50 YRS UP) PN EUMOCOCCAL POLYSACCHARIDE (PPV23) 0.5 ML, IM 05/30/2016 (PREVNAR 13)(6 WKS UP) PNEUM OCOCCAL CONJUGATE (PCV13) 0.5 ML, IM 09/16/2014 (PREVNAR 20)(6 WKS UP) PNEUM OCOCCAL CONJUGATE VACCINE 20-VALENT (PCV20), POLYSACCHARIDE [id number] CONJUGATE, ADJUVANT 0.5 ML (PF) IM 02/10/2022 (RECOMBIVAX HB/ENGERIX-B)(11 YR UP) HEPATITIS B VACCINE 10 MCG/1 ML OR 20 MCG/1 ML ADOL OR ADULT 2 - 3 DOSE PF, IM 11/05/2014 (SHINGRIX)(50 YRS UP) ZOSTER VACCINE RECOMBINANT, 0.5 ML, IM 10/13/2021 Hepatitis A Vaccine 02/05/2005 INFLUENZA VACCINE HIGH DOSE QUADRIVALENT 65 YR UP PF IM 02/13/2023 INFLUENZA VACCINE HIGH DOSE TRIVALENT SPLIT VIRUS, (65 YR UP), 0.5ML (PF), IM 10/20/2024 INFLUENZA VACCINE QUADRIVALE NT 3 YR UP [...] Kendell A Farooq High Cholesterol Father Kendell Ayoner Hypertension Father Kendell Trivedi Other Father Kendell Agudelocker pulmonary fi brosis Cancer Maternal Aunt 1 female Cancer Maternal Aunt 2 female Cancer Maternal Grandmother Damien melendezica l female Emphysema Mother Pat Trivedi Heart [...] of Transportation (Non-Medical) Not on file 10/14/2021 Feeling Safe Answer Date Recorded Are you in a relationship wi th someone who hurts you emotionally and/or physically? No 10/16/2024 Food Insecurity Answer Date Recorded Patient needs follow up regardin 10/16/2024 Transportation Needs Answer Date Record ed Patient needs follow up regardin 10/16/2024 Utility Needs Answer Date Recorded Patient needs follow up regardin 10/16/2024 Education Answer Date Recorded What is the highest level of school you have completed or the highest degree you have received? 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 Not on file Not on file Last Filed Vital Signs Vital Sign Reading Time Taken Comments Blood Pressure 126/78 10/30/2024 10:08 AM CDT Pulse 76 10/30/2024 10:08 AM CDT Temperature 37 C (98.6 F) 10/17/2024 12:10 PM CDT Respiratory Rate 12 10/17/2024 12:1 0 PM CDT Oxygen Saturation 96% 10/30/2024 10: 08 AM CDT Inhaled Oxygen Concentration - - Weight 86.1 kg (189 lb 12.8 oz) 025 10:08 AM CDT Height 160 cm (5' 3) 10/30/2024 10:08 AM CDT Body Mass Index 33.62 10/30/2024 10:08 AM CDT Plan of Treatment Upcoming Encounters Date Type Department Care Team (Late st Contact Info) Description 02/03/2025 10:00 AM MANIFOLD BUILDER Office Visit [facility] Judah Salgado [facility] [address] [facility] [facility] [address] [address] [place] [phone] Tami Thorne PA-C [address] [facility] [address] [place] [address] 03/04/2025 2:40 PM MANIFOLD BUILDER Office Visit [facility] [address] [place] [address] Jona Bravo MD [address] [facility] [address] [place] [address] 04/30/2025 10:15 AM CDT Office Visit [facility] [address] [place] [address] Benjamin Taveras MD [address] [facility] [facility] [address] [place] [address] Health Maintenance Due Date Last Done Comments FIT/ DNA Q 3 YEARS (AUTO ORDER) 1977 FIT/FOBT Q 1 YEAR (AUTO ORDER) 1977 FIT-DNA Q 3 years 02/05/2004 FIT/FOBT Q 1 year 02/05/2004 Flex Sig/CT Colonography Q 5 years 02/05/2004 RSV VACCINE (60+ or ) (1 - Risk 50-74 years 1-dose series) 2009 ZOSTER VACCINE (2 of 2) 12/08/2021 10/13/2021 DIABETES ANNUAL FOOT EXAM 06/21/2024 06/22/2023 DIABETES HBA1C Q 6 MONTHS 08/12/20242024, 12/24/2023, 10/17/2023, Additional history exists DIABETES ANNUAL RETINAL EXAM 09/27/2024, 07/07/2022, 04/19/2021, Additional history exists DIABETES MICROALBUMIN ANNUAL SCREEN 11/25/2024 11/26/2023, 08/06/2015 DIABETES: A1C (Auto Order) 02/12/202502/12, 12/24/2023, 10/17/2023, Additional history exists COVID-19 Vaccine (2023-03 5 season) 2025 11/21/2024, 01/08/2023, 10/13/2021, Additional history exists BREAST CANCER SCREENING 05/28/2025 05/29/19 25, 05/28/2024, 05/28/2024, Additional history exists LDL CHOLESTEROL ANNUAL 07/14/2025 , 02/08/2023, 06/15/2022, Additional history exists FLEX SIG/CT COLONOGRAPHY Q 5 YEARS (AUTO ORDER) 08/03/2025 08/03/2020, 08/03/2020 Traditional Medicare (O) A nnual Wellness Visit 08/26/2025 08/25/2024, 06/22/2023, 10/14/2021, Additional history exists OSTEOPOROSIS SCREENING 09/10/2027 , 09/09/2022, 09/08/2022, Additional history exists COLORECTAL CANCER SCREENING (AUTO ORDER) 08/03/2030 08/03/2020, 08/03/2020, 08/03/2020, Additional history exists COLORECTAL SCREENING 08/03/2030 08/03/2020, 08/03/2020, 08/03/2020, Additional history exists Colorectal Cancer Screening (AUTO ORDER) 08/03/2030 Colorectal Cancer Screening 08/03/2030 DTAP/TDAP/TD VACCINES (4 - T d or Tdap) 01/16/2031 01/16/2021, 02/05/2013, 09/14/2011 PNEUMOCOCCAL VACCINE 50+ YEARS Completed 0 02/10/2022, 05/30/2016, 09/16/2014, Additional history exists Preventative Visit- Commercial Completed 0 08/25/2024, 09/08/2020, 06/21/2016 INFLUENZA VACCINE Completed 10/20/2024, , 02/13/2023, Additional history exists Medical Devices Implanted Type Area Certified Tower Climber Device Identifier Shelf Expiration Date Model / Serial / Lot Lap Band Bladder Sling Procedures Procedure Name Priority Date/Time Associated Diagnosis Comments TELEMETRY REPORT 10/22/2024 2:47 PM CDT ECHO COMPLETE Routine 10/17/2024 4:04 PM CDT D-DIMER Stat 10/17/2024 12:58 PM CDT LEFT HEART CATH Stat 10/17/2024 11:23 AM CDT Unstable angina (CMS/HCC) UNFRACTIONATED HEPARIN ACTIVITY Timed Study 10/17/2024 10:39 AM CDT UNFRACTIONATED HEPARIN ACTIVITY Timed Study 10/17/2024 4:29 AM CDT BASIC METABOLIC PANEL Routine 10/17/2024 4:29 AM CDT CBC WITH DIFFERENTIAL Routine 10/17/2024 4:29 AM CDT UNFRACTIONATED HEPARIN ACTIVITY Timed Study 10/16/2024 8:30 PM CDT EKG 12-LEAD Routine 10/16/2024 8:09 PM CDT TROPONIN 6 HR, 5TH GEN Timed Study 10/16/2024 7:18 PM CDT TROPONIN 2 HR, 5TH GEN Timed Study 10/16/2024 2:36 PM CDT TROPONIN BASELINE, 5TH GEN Stat 10/16/2024 1:27 PM CDT COMPREHENSIVE METABOLIC PANEL Stat 10/16/2024 1:27 PM CDT PTT Stat 10/16/2024 1:27 PM CDT PROTIME-INR Stat 10/16/2024 1:27 PM CDT CBC WITH DIFFERENTIAL Stat 10/16/2024 1:27 PM CDT XR CHEST PA AND LATERAL 2 VW Stat 10/16/2024 12:44 PM CDT WY ECG ROUTINE ECG W/LEAST 12 LDS W/I&R Routine 10/16/2024 11:58 AM CDT Abnormal stress test EKG 12-LEAD Stat 10/16/2024 11:42 AM CDT CRITICAL CARE Routine 10/16/2024 11:21 AM CDT ECHO STRESS TEST EXERCISE Routine 10/13/2024 11:00 AM CDT Chest pain, unspecified type Abnormal EKG VITAMIN D 25 HYDROXY Routine 09/08/2024 9:05 AM CDT Thyroid nodule Disorder of parathyroid gland, unspecified PTH INTACT Routine 09/08/2024 9:05 AM CDT Thyroid nodule CALCIUM LEVEL Routine 09/08/2024 9:05 AM CDT Thyroid nodule IR BIOPSY Routine 09/05/2024 9:40 AM CDT Thyroid nodule CYTOLOGY, NON GYNE Pathology 09/05/2024 9: 20 AM CDT LIPID PANEL Routine 07/14/2024 7:46 AM CDT Other hyperlipidemia MAMMO SCREEN BILAT W OR WO CAD Routine 05/28/2024 1:46 PM CDT HEMOGLOBIN A1C Routine 02/13/2024 3:36 PM MANIFOLD BUILDER MICROALBUMIN/CREATINI NE RATIO, RANDOM UR Routine 11/26/2023 4:09 PM CDT DM type 2, goal HbA1c < 7% ([facility]) XR DEXA BONE DENSITY AXIAL 1 OR MORE SITES Routine 09/20/2020 Menopause HX COLONOSCOPY Routine 08/03/2020 from Last 3 Months or Most Recently Relevant to Health Maintenance Results * TELEMETRY REPORT (10/22/2024 2:47 PM CDT) us Provider Scanning ECG ORDERABLES Final Result * ECHO COMPLETE - CONTRAST AND STRAIN IF INDICATED (10/17/2024 4:04 PM CDT) EJECTION FRACTION 60 INTERFACE SYSTEM 10/17/2024 3:10 PM CDT Narrative INTERFACE SYSTEM - 10/17/2024 4:21 [place] [address] [email or web address] Transthoracic Echocardiogram Patient: Tiffanie Ruiz Study ID: ECHO COMPLETE - Gender: F : 1960 Age: 64 Race: CAU Height 160cm Study Date: 10/17/2024 Weight: 85.3kg Access. #: [id number] BP: *Referring Physician:* Alexandra Humphries *Ordering Physician:* Alexandra Humphries data modeler: Nurse: STUDY CONCLUSIONS: SUMMARY: - Left ventricle: The cavity size was normal. Wall thickness was increased in a pattern of mild LVH. Global systolic function is normal. For Epic reporting: the left ventricular ejection fraction is 60% . - Mitral valve: Mild regurgitation. - Left atrium: The atrium is normal in size. - Right ventricle: The cavity size is normal. Systolic function is normal. - Tricuspid valve: Mild regurgitation. - Pulmonary arteries: The peak systolic pressure is 29mm Hg. Cardiac Anatomy: LEFT VENTRICLE: The cavity size was normal. Wall thickness was increased in a pattern of mild LVH. Global systolic function is normal. For Epic reporting: the left ventricular ejection fraction is 60% . AORTIC VALVE: Structurally normal valve. . No significant regurgitation. The mean systolic gradient is 6mm Hg. The peak systolic gradient is 10mm Hg. The LVOT to aortic valve VTI ratio is 0.7. The valve area is 2.2cm^2. The ratio of LVOT to aortic valve peak velocity is 0.83. AORTA: Aortic root: The root is normal-sized. MITRAL VALVE: Structurally normal valve. Mild regurgitation. The mean diastolic gradient is 2mm Hg. The peak diastolic gradient is 4mm Hg. LEFT ATRIUM: The atrium is normal in size. RIGHT VENTRICLE: The cavity size is normal. Systolic function is normal. PULMONIC VALVE: Structurally normal valve. No significant regurgitation. TRICUSPID VALVE: Structurally normal valve. Mild regurgitation. RIGHT ATRIUM: The atrium was normal in size. SYSTEMIC VEINS: Inferior vena cava: The IVC is normal-sized. PERICARDIUM: There is no pericardial effusion. Measurements Left ventricle Value Ref IVS, ED, LAX (H) 1.2 cm 0.6 - 0.9 DREA, LAX (L) 2.9 cm 3.8 - 5.2 DREA/bsa, LAX (L) 1.6 cm/m^2 2.3 - 3.1 DREA, LAX chord (N) 4.6 cm 3.8 - 5.2 ESD, LAX chord (N) 2.9 cm 2.2 - 3.5 DREA/bsa, LAX chord (N) 2.5 cm/m^2 2.3 - 3.1 ESD/bsa, LAX chord (N) 1.6 cm/m^2 1.3 - 2.1 FS, LAX chord (N) 37 % 27 - 45 IVS, ED (H) 1.2 cm 0.6 - 0.9 PW, ED (H) 1.0 cm 0.6 - 0.9 EDV, 2-p (H) 119 ml 46 - 106 ESV, 2-p (H) 48 ml 14 - 42 EF, 2-p (N) 60 % 54 - 74 SV, 2-p 71 ml --------- SV/bsa, 2-p 38 ml/m^2 --------- E', lat amira, TDI (N) 13.5 cm/sec >=10.0 E/e', lat amira, TDI (N) 5 <=13 E', med amira, TDI (N) 11.5 cm/sec >=7.0 E/e', med amira, TDI 6 --------- E', avg, TDI 12.5 cm/sec --------- E/e', avg, TDI (N) 6 <=14 LVOT Value Ref Diam, S 2.0 cm --------- Area 3.1 cm^2 --------- Peak [place], S 1.16 m/sec --------- VTI, S 23.2 cm --------- Peak grad, S 5 mm Hg --------- Right ventricle Value Ref DREA minor ax, A4C base (N) 3.8 cm 2.5 - 4.1 DREA minor ax, A4C mid (N) 3.1 cm 1.9 - 3.5 TAPSE, MM (N) 2.6 cm >=1.7 Pressure, S 32 mm Hg --------- S' lateral (N) 13.4 cm/sec >=9.5 Left atrium Value Ref AP dim, ES (N) 3.6 cm 2.7 - 3.8 AP dim index, ES (N) 1.9 cm/m^2 1.5 - 2.3 SI dim, A4C 5.7 cm --------- Area ES, A4C (N) 20 cm^2 <=20 Area/bsa ES, A4C 10.48 cm^2/m^2 --------- SI dim, A2C 6.0 cm --------- SI dim, shorter 5.7 cm --------- Vol, ES, 1-p A2C (H) 55 ml 22 - 52 Vol/bsa, ES, 1-p A2C (N) 29 ml/m^2 13 - 40 Vol, ES, 2-p 55 ml --------- Vol/bsa, ES, 2-p (N) 29 ml/m^2 16 - 34 LA/Ao root ratio 1.09 --------- Right atrium Value Ref SI dim, ES, A4C (N) 4.8 cm 3.4 - 5.3 SI dim/bsa, ES, A4C (N) 2.6 cm/m^2 1.9 - 3.1 Area, ES, A4C (N) 15 cm^2 10 - 18 Vol, ES, 1-p A4C 37 ml --------- Vol/bsa, ES, 1-p A4C (N) 20 ml/m^2 9 - 33 Aortic valve Value Ref Peak v, S 1.4 m/sec --------- Mean v, S 1.12 m/sec --------- VTI, S 33.1 cm --------- Mean grad, S 6 mm Hg --------- Peak grad, S 10 mm Hg --------- LVOT/AV, VTI ratio 0.7 --------- REJI, VTI 2.2 cm^2 --------- REJI/bsa, VTI 1.17 cm^2/m^2 --------- LVOT/AV, Vpeak ratio 0.83 --------- REJI, Vmax 2.3 cm^2 --------- REJI/bsa, Vmax 1.24 cm^2/m^2 --------- Mitral valve Value Ref Mean v, D 0.59 m/sec --------- Peak E 0.74 m/sec --------- Peak A 0.68 m/sec --------- Decel time 234 ms --------- PHT 69 ms --------- Mean grad, D 2 mm Hg --------- Peak grad, D 4 mm Hg --------- Peak E/A ratio 1.1 --------- A-VTI 30.8 cm --------- MVA, PHT 3.2 cm^2 --------- MVA/bsa, PHT 1.7 cm^2/m^2 --------- Pulmonic valve Value Ref Peak v, S 0.99 m/sec --------- Peak grad, S 4 mm Hg --------- Tricuspid valve Value Ref TR peak v (N) 1.8 m/sec <=2.8 Peak RV-RA grad, S 27 mm Hg --------- Aortic root Value Ref Root diam, 3.3 cm --------- Ascending aorta Value Ref AAo AP diam, S 3.5 cm --------- AAo AP diam/bsa, S 1.9 cm/m^2 --------- Pulmonary artery Value Ref Pressure, S 29 mm Hg --------- Systemic veins Value Ref Estimated RA pressure 5 mm Hg --------- Legend: (L) and (H) tita values outside specified reference range. (N) castro values inside specified reference range. Procedure data: Procedure information: A transthoracic echocardiogram was performed. Scanning was performed from the parasternal, apical, and subcostal acoustic windows. Transthoracic echocardiogram. Complete 2D, complete spectral Doppler, and color Doppler. Birthdate: Patient birthdate: 1960. Age: Patient is 64year(s) old. Sex: gender: female. Height: 160cm. 63in. Weight: 85.3kg. 188lb. Body mass index: 33.3kg/m^2. Body surface area: 1.88m^2. Study date: Study date: 10/17/2024. Study time: 03:10 PM. Prepared and Electronically Authenticated Vasile Browne [id number] Procedure Note Vasile Browne MD - 10/17/2024 [place] [address] [email or web address] Echocardiogram Patient: Tiffanie Ruiz Study ID: ECHO COMPLETE - Gender: F : 1960 Age: 64 Race: CAU Height 160cm Study Date: 10/17/2024 Weight: 85.3kg Access. #: [id number] BP: *Referring Physician:* Alexandra Humphries *Ordering Physician:* Alexandra Humphries data modeler: Nurse: STUDY CONCLUSIONS: SUMMARY: - Left ventricle: The cavity size was normal. Wall thickness was increasedin a pattern of mild LVH. Global systolic function is normal. For Epic reporting: the left ventricular ejection fraction is 60% . - Mitral valve: Mild regurgitation. - Left atrium: The atrium is normal in size. - Right ventricle: The cavity size is normal. Systolic function isnormal. - Tricuspid valve: Mild regurgitation. - Pulmonary arteries: The peak systolic pressure is 29mm Hg. Cardiac Anatomy: LEFT VENTRICLE: The cavity size was normal. Wall thickness was increasedin a pattern of mild LVH. Global systolic function is normal. For Epicreporting: the left ventricular ejection fraction is 60% . AORTIC VALVE: Structurally normal valve. . No significantregurgitation. The mean systolic gradient is 6mm Hg. The peak systolic gradient is 10mmHg. The LVOT to aortic valve VTI ratio is 0.7. The valve area is 2.2cm^2.The ratio of LVOT to aortic valve peak velocity is 0.83. AORTA: Aortic root: The root is normal-sized. MITRAL VALVE: Structurally normal valve. Mild regurgitation. Themean diastolic gradient is 2mm Hg. The peak diastolic gradient is 4mm Hg. LEFT ATRIUM: The atrium is normal in size. RIGHT VENTRICLE: The cavity size is normal. Systolic function isnormal. PULMONIC VALVE: Structurally normal valve. No significantregurgitation. TRICUSPID VALVE: Structurally normal valve. Mild regurgitation. RIGHT ATRIUM: The atrium was normal in size. SYSTEMIC VEINS: Inferior vena cava: The IVC is normal-sized. PERICARDIUM: There is no pericardial effusion. Measurements Left ventricle Value Ref IVS, ED, LAX (H) 1.2 cm 0.6 - 0.9 DREA, LAX (L) 2.9 cm 3.8 - 5.2 DREA/bsa, LAX (L) 1.6 cm/m^2 2.3 - 3.1 DREA, LAX chord (N) 4.6 cm 3.8 - 5.2 ESD, LAX chord (N) 2.9 cm 2.2 - 3.5 DREA/bsa, LAX chord (N) 2.5 cm/m^2 2.3 - 3.1 ESD/bsa, LAX chord (N) 1.6 cm/m^2 1.3 - 2.1 FS, LAX chord (N) 37 % 27 - 45 IVS, ED (H) 1.2 cm 0.6 - 0.9 PW, ED (H) 1.0 cm 0.6 - 0.9 EDV, 2-p (H) 119 ml 46 - 106 ESV, 2-p (H) 48 ml 14 - 42 EF, 2-p (N) 60 % 54 - 74 SV, 2-p 71 ml --------- SV/bsa, 2-p 38 ml/m^2 --------- E', lat amira, TDI (N) 13.5 cm/sec >=10.0 E/e', lat amira, TDI (N) 5 <=13 E', med amira, TDI (N) 11.5 cm/sec >=7.0 E/e', med amira, TDI 6 --------- E', avg, TDI 12.5 cm/sec --------- E/e', avg, TDI (N) 6 <=14 LVOT Value Ref Diam, S 2.0 cm --------- Area 3.1 cm^2 --------- Peak montana, S 1.16 m/sec --------- VTI, S 23.2 cm --------- Peak grad, S 5 mm Hg --------- Right ventricle Value Ref DREA minor ax, A4C base (N) 3.8 cm 2.5 - 4.1 DREA minor ax, A4C mid (N) 3.1 cm 1.9 - 3.5 TAPSE, MM (N) 2.6 cm >=1.7 Pressure, S 32 mm Hg --------- S' lateral (N) 13.4 cm/sec >=9.5 Left atrium Value Ref AP dim, ES (N) 3.6 cm 2.7 - 3.8 AP dim index, ES (N) 1.9 cm/m^2 1.5 - 2.3 SI dim, A4C 5.7 cm --------- Area ES, A4C (N) 20 cm^2 <=20 Area/bsa ES, A4C 10.48 cm^2/m^2 --------- SI dim, A2C 6.0 cm --------- SI dim, shorter 5.7 cm --------- Vol, ES, 1-p A2C (H) 55 ml 22 - 52 Vol/bsa, ES, 1-p A2C (N) 29 ml/m^2 13 - 40 Vol, ES, 2-p 55 ml --------- Vol/bsa, ES, 2-p (N) 29 ml/m^2 16 - 34 LA/Ao root ratio 1.09 --------- Right atrium Value Ref SI dim, ES, A4C (N) 4.8 cm 3.4 - 5.3 SI dim/bsa, ES, A4C (N) 2.6 cm/m^2 1.9 - 3.1 Area, ES, A4C (N) 15 cm^2 10 - 18 Vol, ES, 1-p A4C 37 ml --------- Vol/bsa, ES, 1-p A4C (N) 20 ml/m^2 9 - 33 Aortic valve Value Ref Peak v, S 1.4 m/sec --------- Mean v, S 1.12 m/sec --------- VTI, S 33.1 cm --------- Mean grad, S 6 mm Hg --------- Peak grad, S 10 mm Hg --------- LVOT/AV, VTI ratio 0.7 --------- REJI, VTI 2.2 cm^2 --------- REJI/bsa, VTI 1.17 cm^2/m^2 --------- LVOT/AV, Vpeak ratio 0.83 --------- REJI, Vmax 2.3 cm^2 --------- REJI/bsa, Vmax 1.24 cm^2/m^2 --------- Mitral valve Value Ref Mean v, D 0.59 m/sec --------- Peak E 0.74 m/sec --------- Peak A 0.68 m/sec --------- Decel time 234 ms --------- PHT 69 ms --------- Mean grad, D 2 mm Hg --------- Peak grad, D 4 mm Hg --------- Peak E/A ratio 1.1 --------- A-VTI 30.8 cm --------- MVA, PHT 3.2 cm^2 --------- MVA/bsa, PHT 1.7 cm^2/m^2 --------- Pulmonic valve Value Ref Peak v, S 0.99 m/sec --------- Peak grad, S 4 mm Hg --------- Tricuspid valve Value Ref TR peak v (N) 1.8 m/sec <=2.8 Peak RV-RA grad, S 27 mm Hg --------- Aortic root Value Ref Root diam, 3.3 cm --------- Ascending aorta Value Ref AAo AP diam, S 3.5 cm --------- AAo AP diam/bsa, S 1.9 cm/m^2 --------- Pulmonary artery Value Ref Pressure, S 29 mm Hg --------- Systemic veins Value Ref Estimated RA pressure 5 mm Hg --------- Legend: (L) and (H) tita values outside specified reference range. (N) castro values inside specified reference range. Procedure data: Procedure information: A transthoracic echocardiogram was performed.Scanning was performed from the parasternal, apical, and subcostal acousticwindows. Transthoracic echocardiogram. Complete 2D, complete spectralDoppler, and color Doppler. Birthdate: Patient birthdate: 1960. Age:Patient is 64year(s) old. Sex: gender: female. Height: 160cm. 63in.Weight: 85.3kg. 188lb. Body mass index: 33.3kg/m^2. Body surface area:1.88m^2. Study date: Study date: 10/17/2024. Study time: 03:10 PM. Preparedand Electronically Authenticated Vasile Browne [id number] Alexandra Humphries NP US ORDERABLES Final Result INTERFACE SYSTEM Refer to clinic/hospital department * D-DIMER (10/17/2024 12:58 PM CDT) D-DIMER QUANT 0.33 <0.50 ug/mL FEU 10/17/2024 1:40 PM CDT [facility] LABORATORY SERVICES [facility] Blood Venipuncture / Unknown 10/17/2024 12:58 PM CDT 10/17/2024 1:08 PM CDT [facility] LABORATORY [facility] - 10/17/2024 1:40 PM CDT D-Dimer assay cutoff value for exclusion of DVT and/or PE is <0.50 ug/mL FEU. As D-Dimer levels increase naturally with age, age stratification for patients over 50 is potentially more appropriate in determining whether a patient should undergo further evaluation for DVT and/or PE than a general cutoff of 0.50 ug/mL FEU. Clinical consideration is recommended. Age Stratified Cutoff Values: 50-60 years: 0.50-0.60 ug/mL FEU 61-70 years: 0.61-0.70 ug/mL FEU 71-80 years: 0.71-0.80 ug/mL FEU us Thomas Gregory MD HEMATOLOGY ORDERABLES Final Re sult [facility]# [id number] [address] [place] [address] * LEFT HEART CATH (10/17/2024 11:23 AM CDT) 10/17/2024 10:4 9 AM CDT [facility] - 10/17/2024 11:32 AM CDT ASSESSMENT: Unremarkable coronary arteries Mildly elevated LV filling pressure - likely related to elev BP and non-significant Unremarkable aortic valve gradient RECOMMENDATIONS: TR band removal per protocol It appears stress test false+. ? Related to high BP during study? Brett Morrow MD General & Interventional Cardiology [facility] - [place] (and [facility]) Procedure Details LEFT HEART CATHETERIZATION/CORONARY ANGIOGRAPHY Access: R radial artery Hemostasis: compression band Indications: abnormal stress test, unstable angina. CAD risk factors. CP. PROCEDURE DETAILS After informed consent, prepping the patient in a sterile fashion, and administering light conscious sedation, we locally anesthetized the skin over the right radial artery and placed a 6 Lithuanian sheath via the modified Seldinger technique. We gave intra-arterial Verapamil and intravenous heparin. We used a 0.035 inch wire for catheter exchanges and a Raciel catheter for selective angiography of the right and left coronaries independently as well as crossing the aortic valve performing left ventricular pressure assessment and aortic valve pullback. There were no complications, and we used a radial compression band at the end of the case for hemostasis. Results: Left main: normal LAD: normal LAD and diagonals LCx: normal LCx and OMs RCA: dominant, normal (Official, finalized hemodynamics): LV 160/18 Ao 158/76 Alexandra Humphries COUNSELOR MANAGER CUP CATH ORDERABLES Final Resul t Performing Organization Address City/[facility]/ZIP Co de Phone Number [facility] CLIA# [id number] [address] [place] [address] * UNFRACTIONATED HEPARIN MONITORING (10/17/2024 10:39 AM CDT) Only the most recent of3 resultswithin the time period is included. Pathologist [facility] ANTI-XA UNFRAC HEP 0.60 See Interpreta tion. IU/mL 10/17/2024 11:50 AM CDT [facility] LABORATORY [facility] Blood Venipuncture / Unknown 10/17/2024 10:39 AM CDT 10/17/2024 10:53 AM CDT Narrative [facility] LABORATORY [facility] - 10/17/2024 11:50 AM CDT Unfractionated Heparin Therapeutic Range: 0.30-0.70 IU/ml Refer to pharmacy adult heparin protocol for further recommendation. The reference range for this test is specific to the anticoagulant and is not appropriate for monitoring patients on a DOAC protocol. Thomas Gregory MD HEMATOLOGY ORDERABLES Final Re sult [facility] CLIA# [id number] [address] [place] [facility] [address] * (ABNORMAL) CBC WITH DIFFERENTIAL (10/17/2024 4:29 AM CDT) Only the most recent of2 resultswithin the time period is included. [facility] WBC 5.3 4.0 - 9.8 K/uL 10/17/2024 4:59 AM CDT [facility]AT[facility] - . [facility] RBC 3.54(L) 3.90 - 4.90 M/uL 10/17/2024 4:59 AM CDT [facility] - [facility] HEMOGLOBIN 12.6 11.8 - 14.8 g/dL 10/17/2024 4:59 AM CDT [facility] [place] HEMATOCRIT 37.0 35.5 - 44.0 % 10/17/2024 4:59 AM CDT [facility] - [facility] MCV 104.5(H) 82.0 - 99.0 fL 10/17/2024 4:59 AM CDT [facility] MCH 35.6(H) 27.2 - 32.6 pg 10/17/2024 4:59 AM CDT [facility] - [facility] MCHC 34.1 31.5 - 35.5 g/dL 10/17/2024 4:59 AM CDT [facility] - . [facility] RDW 11.9 11.5 - 14.5 % 10/17/2024 4:59 AM CDT [facility] - [facility] RDW-STDEV 45.2 37.1 - 48.7 fL 10/17/2024 4:59 AM CDT [facility] - . [facility] PLATELETS 149 140 - 350 K/uL 10/17/2024 4:59 AM CDT [facility] - [facility] MPV 9.7 9.3 - 12.4 fL 10/17/2024 4:59 AM CDT [facility] - . [place] NEUTROPHILS 46 % 10/17/2024 4:59 AM CDT [facility] [place] LYMPHOCYTES 40 % 10/17/2024 4:59 AM CDT [facility] [place] MONOCYTES 11 % 10/17/2024 4:59 AM CDT [facility] [place] EOSINOPHILS 2 % 10/17/2024 4:59 AM CDT [facility] - [facility] [place] BASOPHILS 1 % 10/17/2024 4:59 AM CDT [facility] - . [place] IMMATURE GRANULOCYTES 0 % 10/17/2024 4:59 AM CDT [facility] [place] NEUTROPHIL ABSOLUTE 2.48 1.90 - 7.00 K/uL 10/17/2024 4:59 AM CDT [facility] LABORATORY SERVICES - [facility] [place] LYMPHOCYTE ABSOLUTE 2.11 0.70 - 4.50 K/uL 10/17/2024 4:59 AM CDT [facility] LABORATORY SERVICES - [facility] [place] MONOCYTE ABSOLUTE 0.60 0.10 - 1.30 K/uL 10/17/2024 4:59 AM CDT [facility] LABORATORY SERVICES - [facility] [place] EOSINOPHIL ABSOLUTE 0.10 0.00 - 0.70 K/uL 10/17/2024 4:59 AM CDT [facility] - [facility] [place] BASOPHILS ABSOLUTE 0.03 0.00 - 0.20 K/uL 10/17/2024 4:59 AM CDT [facility] [place] IMMATURE GRANULOCYTES ABSOLUTE 0.01 0.00 - 0.03 K/uL 10/17/2024 4:59 AM CDT [facility] [place] Blood Venipuncture / Unknown 10/17/2024 4:29 AM CDT 10/17/2024 4:34 AM CDT us Thomas Gregory MD HEMATOLOGY ORDERABLES Final Re sult [facility]# [id number] [address] [place] [address] * (ABNORMAL) BASIC METABOLIC PANEL (10/17/2024 4:29 AM CDT) SODIUM 141 136 - 145 mmol/L 10/17/2024 5:30 AM CDT [facility] - . [place] POTASSIUM 4.2 3.5 - 5.0 mmol/L 10/17/2024 5:30 AM CDT [facility] SERVICES - [facility] [place] CHLORIDE 105 98 - 107 mmol/L 10/17/2024 5:30 AM CDT [facility] - . [place] CO2 30(H) 22 - 29 mmol/L 10/17/2024 5:30 AM CDT [facility] - . [place] CALCIUM 9.7 8.6 - 10.2 mg/dL 10/17/2024 5:30 AM CDT [facility] BUN 21 8 - 23 mg/dL 10/17/2024 5:30 AM T [facility] CREATININE 0.74 0.51 - 0.95 mg/dL 10/17/2024 5:30 AM T [facility] GLUCOSE 100(H) 74 - 99 mg/dL 10/17/2024 5:30 AM T [facility] GFR >60 >=60 mL/min/1.7 3 sq meter 10/17/2024 5:30 AM T [facility] Comment:eGFR calculated with 2020 CKD-EPI equation. Vegetarian diet, extremely high or low muscle mass, and may affect results. Cystatin C with Glomerular Filtration Rate is a suitable alternative for these patients. ANION GAP 6(L) 8 - 16 mmol/L 10/17/2024 5:30 AM T [facility] Blood Venipuncture / Unknown 10/17/2024 4:29 AM CDT 10/17/2024 4:34 AM CDT us Thomas Gregory MD CHEMISTRY ORDERABLES Final Res ult [facility]# [id number] [address] [place] [address] * EKG 12-LEAD (10/16/2024 8:09 PM CDT) Only the most recent of3 resultswithin the time period is included. 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1960 Requested By: AMAURI RUDD Order Number: [id number] Reading MD: Jese Carranza Measurements Intervals [place] Rate: 72 P: 55 WY: 144 QRS: 50 QRSD: 88 T: 56 QT: 384 QTc: 422 Interpretive Statements SINUS RHYTHM Electronically Signed On 10-16-2024 18:53:46 CDT by Jese Carranza Procedure Note Jese Carranza MD - 10/16/2024 [facility] [address] [facility], [place] [address] Test Date: 2024-10-16 Pat Name: TIFFANIE RUIZ Department: 3 Room: [facility] 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 10/16/2024 8:06 PM CDT [facility] Blood Venipuncture / Unknown 10/16/2024 7:18 PM CDT 10/16/2024 7:18 PM CDT Narrative [facility] - 10/16/2024 8:06 PM CDT Troponin Detectable but normal range. Delta indeterminate. Delay in collection of timed specimen beyond recommended collection interval. Results must be interpreted in clinical context. us Amauri Rudd MD CHEMISTRY ORDERABLES Final Resul t [facility]# [id number] [address] [place] [address] * TROPONIN 2 HR, 5TH GEN (10/16/2024 2:36 PM CDT) TROPONIN T, 2 HR 5TH GEN 8 <=10 ng/L 10/16/2024 3:21 PM CDT [facility]ORAT[facility] DELTA 2HR TROPONIN T 1 See Interp. 10/16/2024 3:21 PM CDT [facility] Blood Venipuncture / Unknown 10/16/2024 2:36 PM CDT 10/16/2024 2:39 PM CDT [facility] 28msec [facility] - 10/16/2024 3:21 PM CDT Troponin Detectable but normal range. Delta not changing. Delay in collection of timed specimen beyond recommended collection interval. Results must be interpreted in clinical context. Amauri Rudd MD CHEMISTRY ORDERABLES Final Resul t Performing Organization Address [facility]/ZIP Co de Phone Number [facility]# [id number] [address] [place] [address] * TROPONIN BASELINE, 5TH GEN (10/16/2024 1:27 PM CDT) TROPONIN T, BASELINE 5TH GEN 7 <=10 ng/L 10/16/2024 2:14 PM CDT [facility] Blood Venipuncture / Unknown 10/16/2024 1:27 PM CDT 10/16/2024 1:34 PM CDT [facility] 28msec [facility] - 10/16/2024 2:14 PM CDT Troponin Detectable but normal range. Amauri Rudd MD CHEMISTRY ORDERABLES Final Resul t Performing Organization Address City/[facility]/ZIP Co de Phone Number [facility] CLIA# [id number] [address] [place] [address] * (ABNORMAL) PTT (10/16/2024 1:27 PM CDT) PTT 24.1(L) 24.4 - 36.4 seconds 10/16/2024 1:56 PM CDT [facility] LABORATORY [facility] Comment: PTT Therapeutic Range: Heparin Level PTT (seconds) <0.10 units/mL <55.8 0.10 - 0.30 units/mL 55.8 - 74.3 0.30 - 0.70 units/mL* 74.3 - 111.2* 0.70 - 1.00 units/mL 111.2 - 138.9 *corresponds to therapeutic range for unfractionated heparin Blood Venipuncture / Unknown 10/16/2024 1:27 PM CDT 10/16/2024 1:34 PM CDT Amauri Rudd MD HEMATOLOGY ORDERABLES Final Resu lt [facility] [employer] [facility] CLIA# [id number] [address] [place] [address] * (ABNORMAL) PROTIME-INR (10/16/2024 1:27 PM CDT) PROTIME 12.6(L) 12.7 - 15.1 Seconds 10/16/2024 1:56 PM CDT [facility] LABORATORY [facility] INR 0.9 0.9 - 1.1 10/16/2024 1:56 PM CDT [facility] Blood Venipuncture / Unknown 10/16/2024 1:27 PM CDT 10/16/2024 1:34 PM CDT Narrative [facility] LABORATORY [facility] - 10/16/2024 1:56 PM CDT INR Therapeutic Range: Adult: 2.0 - 3.0 for pulmonary embolism or prophylaxis against venous thrombosis or systemic embolization. 2.0 - 3.0 for patients with tissue heart valves. 2.5 - 3.5 for patients with mechanical heart valves or post [place]. Pediatric (12 years and under): 1.5 - 3.0 Although the target range in children is not well established, INR values of 1.5 - 3.0 are recommended for most patients. Higher values have been used in children with prosthetic cardiac valves and hereditary clotting disorders. (<3 days) therapeutic ranges have not been established. Amauri Rudd MD HEMATOLOGY ORDERABLES Final Resu lt [facility]AT[facility] SERVICES - [facility]# [id number] [address] [place] [address] * (ABNORMAL) COMPREHENSIVE METABOLIC PANEL (10/16/2024 1:27 PM CDT) SODIUM 146(H) 136 - 145 mmol/L 10/16/2024 2:16 PM CDT [facility] - . [facility] POTASSIUM 4.0 3.5 - 5.0 mmol/L 10/16/2024 2:16 PM CDT [facility] - . [place] CHLORIDE 107 98 - 107 mmol/L 10/16/2024 2:16 PM CDT [facility] [place] CO2 27 22 - 29 mmol/L 10/16/2024 2:16 PM CDT [facility] [place] CALCIUM 9.9 8.6 - 10.2 mg/dL 10/16/2024 2:16 PM CDT [facility] [place] BUN 23 8 - 23 mg/dL 10/16/2024 2:16 PM CDT [facility] - [facility] CREATININE 0.78 0.51 - 0.95 mg/dL 10/16/2024 2:16 PM CDT [facility] [place] GLUCOSE 111(H) 74 - 99 mg/dL 10/16/2024 2:16 PM CDT [facility] [place] TOTAL PROTEIN 7.5 6.7 - 8.6 g/dL 10/16/2024 2:16 PM CDT [facility] [place] ALBUMIN 4.6 3.5 - 5.2 g/dL 10/16/2024 2:16 PM CDT [facility] BILIRUBIN TOTAL 0.9 0.0 - 1.1 mg/dL 10/16/2024 2:16 PM T [facility] ALKALINE PHOSPHATASE 56 35 - 104 U/L 10/16/2024 2:16 PM CDT [facility] AST 10/16/2024 2:16 PM T [facility] Comment:Test cannot be perfo rmed. Sample hemolysis interference above limits. Redraw if indicated. ALT 60(H) <34 U/L 10/16/2024 2:16 PM T [facility] GFR >60 >=60 mL/min/1.7 3 sq meter 10/16/2024 2:16 PM T [facility] Comment:eGFR calculated with 2020 CKD-EPI equation. Vegetarian diet, extremely high or low muscle mass, and may affect results. Cystatin C with Glomerular Filtration Rate is a suitable alternative for these patients. ANION GAP 12 8 - 16 mmol/L 10/16/2024 2:16 PM T [facility] Blood Venipuncture / Unknown 10/16/2024 1:27 PM CDT 10/16/2024 1:34 PM CDT Narrative [facility] - 10/16/2024 2:16 PM CDT Samples containing indocyanine green cause interferences on Total and/or Direct Bilirubin and must not be measured. us Amauri Rudd MD CHEMISTRY ORDERABLES Final Resul t [facility]# [id number] [address] [place] [address] * XR CHEST PA AND LATERAL 2 VW (10/16/2024 12:44 PM CDT) Anatomical Region Laterality Modality Chest Computed Radiogr aphy 10/16/2024 12:4 4 PM CDT Impressions 10/16/2024 12:52 PM CDT IMPRESSION: Heart size is normal. Lungs are clear. Battery generator and leads overlying the right neck. Prior cervical fusion. No pneumothorax or significant effusion. DICTATION LOCATION: Location [address] [place] [address] Narrative 10/16/2024 12:52 PM CDT CHEST, 2 VIEWS DATE: 10/16/2024 12:44 PM HISTORY: Chest Pain. See Reason for Exam COMPARISON: 03/02/2017 Procedure Note Roscoe Masterson MD - 10/16/2024 CHEST, 2 VIEWS DATE: 10/16/2024 12:44 PM HISTORY: Chest Pain. See Reason for Exam COMPARISON: 03/02/2017 IMPRESSION: Heart size is normal. Lungs are clear. Battery generator and leads overlying the right neck. Prior cervical fusion. No pneumothorax or significant effusion. DICTATION LOCATION: Location [address] [place] [address] us Amauri Rudd MD DIAGNOSTIC IMAGING ORDERABLES Fi nal Result * Critical Care (10/16/2024 11:21 AM CDT) Narrative Zachary Virgen DO - 10/16/2024 11:21 AM CDT Zachary Virgen DO 10/16/2024 3:28 PM Critical Care Performed by: aZchary Virgen DO Authorized by: Zachary Virgen DO Critical care provider statement: Critical care time (minutes): 35 Critical care time was exclusive of: Separately billable procedures and treating other patients Critical care was necessary to treat or prevent imminent or life-threatening deterioration of the following conditions: Cardiac failure Critical care was time spent personally by me on the following activities: Development of treatment plan with patient or surrogate, evaluation of patient's response to treatment, examination of patient, interpretation of cardiac output measurements, obtaining history from patient or surrogate, ordering and performing treatments and interventions, ordering and review of laboratory studies, ordering and review of radiographic studies, pulse oximetry, re-evaluation of patient's condition and review of old charts I assumed direction of critical care for this patient from another provider in my specialty: no Care discussed with: admitting provider us Zachary Virgen DO PROCEDURE/MINOR SURGICAL ORDERAB LES Final Result * ECHO STRESS TEST EXERCISE (10/13/2024 11:00 AM CDT) EJECTION FRACTION EF: INTERFACE SYSTEM 10/13/2024 10:1 7 AM CDT Narrative INTERFACE SYSTEM - 10/13/2024 12:42 PM CDT [address] [address] [email or web address] Echocardiogram Armin Protocol Patient: Tiffanie Ruiz Study ID: [id number] Gender: F : 1960 Age: 64 Race: CAU Height Study Date: 10/13/2024 Weight: Access. #: [id number] BP: *Referring Physician:* Jona Bravo Andrew M *Ordering Physician:* Jona Bravo data modeler: Nurse: Indications: Chest pain. STUDY CONCLUSIONS: SUMMARY: - Stress data: Functional capacity was decreased. - Hypertensive blood pressure response to exercise stress. - Baseline ECG: Normal sinus rhythm. - Stress ECG conclusions: There are no stress arrhythmias or conduction abnormalities. 2mm ST horizontal ST depressions are seen in the inferior leads at peak stress, diagnostic for ischemic EKG response. Occasional PVCs in recovery. - Baseline: LV global systolic function is normal. - Peak stress: Anterolateral hypokinesis on post stress images. - Staged echo conclusions: The echocardiogram was POSITIVE for ischemia with anterolateral hypokinesis. Impressions: Maximal exercise treadmill stress echocardiogram is positive for ischemia by EKG and echocardiographic criteria. Note the hypertensive response (peak BP 217/110). Cardiac Anatomy: Baseline ECG: Normal sinus rhythm. Stress results: Maximal heart rate during stress was 157bpm (101% of maximal predicted heart rate). The maximal predicted heart rate was 155bpm. The target heart rate was 132bpm. The target heart rate was achieved. The heart rate response to stress is normal. There is a normal resting blood pressure with a hypertensive response to stress. Resting BP was 132/76, increasing to 217/110 with exercise stress. The patient experienced no chest pain during stress. Functional capacity was decreased. Treadmill exercise testing was performed using the Armin protocol. The patient exercised for 6 min 8 sec, to a maximal work rate of 7.3mets. Exercise was terminated dyspnea and fatigue. Post-stress images were obtained within 90 seconds of stress cessation. Stress ECG: There are no stress arrhythmias or conduction abnormalities. 2mm ST horizontal ST depressions are seen in the inferior leads at peak stress, diagnostic for ischemic EKG response. Occasional PVCs in recovery. Baseline: Left ventricle: Cavity size is normal. Systolic function is normal. Normal wall motion; no regional wall motion abnormalities. Peak stress: Left ventricle: Anterolateral hypokinesis on post stress images. Stress echo results: The echocardiogram was POSITIVE for ischemia with anterolateral hypokinesis. Procedure data: Consent: The risks, benefits, and alternatives to the procedure were explained to the patient and informed consent was obtained. Procedure information: The patient arrived at the laboratory. A baseline ECG was recorded. Surface ECG leads and automatic cuff blood pressure measurements were monitored. A transthoracic stress echocardiogram was performed. Images were captured at baseline and peak exercise. Study completion: There were no complications. Armin protocol. Stress echocardiogram. Birthdate: Patient birthdate: 1960. Age: Patient is 64year(s) old. Sex: gender: female. Study date: Study date: 10/13/2024. Study time: 10:17 AM. Prepared and Electronically Authenticated Derrick Lane [id number] MD - 10/13/2024 [place] [address] [email or web address] Stress Echocardiogram Armin Protocol Patient: Tiffanie Ruiz Study ID: [id number] Gender: F : 1960 Age: 64 Race: CAU Height Study Date: 10/13/2024 Weight: Access. #: [id number] BP: *Referring Physician:* Jona Bravo Andrew M *Ordering Physician:* Jona Bravo data modeler: Nurse: Indications: Chest pain. STUDY CONCLUSIONS: SUMMARY: - Stress data: Functional capacity was decreased. - Hypertensive blood pressure response to exercise stress. - Baseline ECG: Normal sinus rhythm. - Stress ECG conclusions: There are no stress arrhythmias or conduction abnormalities. 2mm ST horizontal ST depressions are seen in theinferior leads at peak stress, diagnostic for ischemic EKG response. OccasionalPVCs in recovery. - Baseline: LV global systolic function is normal. - Peak stress: Anterolateral hypokinesis on post stress images. - Staged echo conclusions: The echocardiogram was POSITIVE for ischemiawith anterolateral hypokinesis. Impressions: Maximal exercise treadmill stress echocardiogram is positivefor ischemia by EKG and echocardiographic criteria. Note the hypertensiveresponse (peak BP 217/110). Cardiac Anatomy: Baseline ECG: Normal sinus rhythm. Stress results: Maximal heart rate during stress was 157bpm (101% ofmaximal predicted heart rate). The maximal predicted heart rate was 155bpm. Thetarget heart rate was 132bpm. The target heart rate was achieved. The heartrate response to stress is normal. There is a normal resting blood pressurewith a hypertensive response to stress. Resting BP was 132/76, increasing to217/110 with exercise stress. The patient experienced no chest pain duringstress. Functional capacity was decreased. Treadmill exercise testing wasperformed using the Armin protocol. The patient exercised for 6 min 8 sec, to amaximal work rate of 7.3mets. Exercise was terminated dyspnea and fatigue.Post-stress images were obtained within 90 seconds of stress cessation. Stress ECG: There are no stress arrhythmias or conduction abnormalities.2mm ST horizontal ST depressions are seen in the inferior leads at peakstress, diagnostic for ischemic EKG response. Occasional PVCs in recovery. Baseline: Left ventricle: Cavity size is normal. Systolic function is normal.Normal wall motion; no regional wall motion abnormalities. Peak stress: Left ventricle: Anterolateral hypokinesis on post stress images. Stress echo results: The echocardiogram was POSITIVE for ischemiawith anterolateral hypokinesis. Procedure data: Consent: The risks, benefits, and alternatives to the procedure were explained to the patient and informed consent was obtained. Procedure information: The patient arrived at the laboratory. A baseline ECG was recorded. Surface ECG leads and automatic cuff blood pressuremeasurements were monitored. A transthoracic stress echocardiogram was performed.Images were captured at baseline and peak exercise. Study completion: Therewere no complications. Armin protocol. Stress echocardiogram.Birthdate: Patient birthdate: 1960. Age: Patient is 64year(s) old. Sex: gender: female. Study date: Study date: 10/13/2024. Study time: 10:17AM. Prepared and Electronically Authenticated Derrick Lane [id number] us Jona Bravo MD US ORDERABLES Final Result INTERFACE SYSTEM Refer to clinic/hospital department * VITAMIN D 25 HYDROXY (09/08/2024 9:05 AM CDT) VITAMIN D, 25 OH, TOTAL 56 30 - 100 ng/mL [facility] Comment: Vitamin D Status 25-OH Vitamin D: Deficiency: <20 ng/mL Insufficiency: 20 - 29 ng/mL Optimal: > or = 30 ng/mL For 25-OH Vitamin D testing on patients on D2-supplementation and patients for whom quantitation of D2 and D3 fractions is required, the QuestAssureD(TM) 25-OH VIT D, (D2,D3), LC/MS/MS is recommended: order code 59473 (patients >2yrs). See Note 1 Note 1 For additional information, please refer to http://education.Forticom/faq/CMO960 (This link is being provided for informational/ educational purposes only.) FASTING:YES FASTING: YES Test Performed at: [facility] [address] [place] [address] Law Nathan MD Blood 09/08/2024 9:05 AM CDT 09/08/2024 9:06 AM CDT Bassam Sevilla MD CHEMISTRY ORDERABLES Fin al Result [facility] [phone] [facility] [address] [place], [place] [address] [address] * PTH INTACT (09/08/2024 9:05 AM CDT) PTH INTACT 77 16 - 77 pg/mL [facility] Comment: Interpretive Guide Intact PTH Calcium ------- Normal Parathyroid Normal Normal Hypoparathyroidism Low or Low Normal Low Hyperparathyroidism Primary Normal or High High Secondary High Normal or Low Tertiary High High Non-Parathyroid Hypercalcemia Low or Low Normal High FASTING:YES FASTING: YES Test Performed at: [facility] [address] [place] [address] Law Nathan MD Blood 09/08/2024 9:05 AM CDT 09/08/2024 9:06 AM CDT Bassam Sevilla MD CHEMISTRY ORDERABLES Fin al Result Performing Organization Address [facility] Co de Phone Number [facility] [phone] [facility] [address] [place] [address] * CALCIUM LEVEL (09/08/2024 9:05 AM CDT) CALCIUM 9.3 8.6 - 10.4 mg/dL [facility] Comment: FASTING:YES FASTING: YES Test Performed at: [facility] [address] [facility] [place] [address] Law Nathan MD Blood 09/08/2024 9:05 AM CDT 09/08/2024 9:06 AM CDT Bassam Sevilla MD CHEMISTRY ORDERABLES Fin al Result Performing Organization Address [facility] Co de Phone Number [facility] [phone] [facility] [address] * IR BIOPSY (09/05/2024 9:40 AM CDT) Anatomical Region Laterality Modality X-Ray Angiograph y 09/05/2024 9:01 AM CDT Impressions 09/05/2024 9:55 AM CDT IMPRESSION: SUCCESSFUL ULTRASOUND GUIDED RIGHT THYROID FINE NEEDLE ASPIRATION, DESCRIBED ABOVE. DICTATION LOCATION: Location [address] [place] [address] Narrative 09/05/2024 9:55 AM CDT ULTRASOUND-GUIDED THYROID FINE NEEDLE ASPIRATION Supervision of conscious sedation CLINICAL INDICATION: Thyroid nodules PHYSICIAN: Dr. Rendon COMPLICATIONS: None SEDATION: None PROCEDURE/FINDINGS: The risks and benefits of the procedure were explained to the patient. The risks include, but are not limited to bleeding, infection, vessel injury, tracheal injury, pain, failed procedure, nondiagnostic result. The patient was given ample time to ask questions. Following this both written and verbal informed consent was obtained. The patient's medication were reviewed. The patient was placed supine on the sonography table and sonographic evaluation of the thyroid gland identified the right mid thyroid nodule. A suitable skin entry site was marked. Following sterile prep and administration of 1% lidocaine local anesthesia six separate 25-gauge fine needle aspirations were obtained from this lesion using continuous ultrasound guidance. The samples were provided to the pathology personnel on hand. The pathologist deemed the sample suitable for diagnosis and the procedure was terminated at this point. Hemostasis was achieved following manual compression. Appropriate obstructions were given. Sedation: Versed 3 mg and fentanyl 150 mcg were administered in divided doses. Sedation was supervised by myself and monitored by a nurse at all times. Procedure Note Roscoe Rendon MD - 09/05/2024 ULTRASOUND-GUIDED THYROID FINE NEEDLE ASPIRATION Supervision of conscious sedation CLINICAL INDICATION: Thyroid nodules PHYSICIAN: Dr. Rendon COMPLICATIONS: None SEDATION: None PROCEDURE/FINDINGS: The risks and benefits of the procedure were explained to the patient. The risks include, but are not limited to bleeding, infection, vessel injury, tracheal injury, pain, failed procedure, nondiagnostic result. The patient was given ample time to ask questions. Following this both written and verbal informed consent was obtained. The patient's medication were reviewed. The patient was placed supine on the sonography table and sonographic evaluation of the thyroid gland identified the right mid thyroid nodule. A suitable skin entry site was marked. Following sterile prep and administration of 1% lidocaine local anesthesia six separate 25-gauge fine needle aspirations were obtained from this lesion using continuous ultrasound guidance. The samples were provided to the pathology personnel on hand. The pathologist deemed the sample suitable for diagnosis and the procedure was terminated at this point. Hemostasis was achieved following manual compression. Appropriate obstructions were given. Sedation: Versed 3 mg and fentanyl 150 mcg were administered in divided doses. Sedation was supervised by myself and monitored by a nurse at all times. IMPRESSION: SUCCESSFUL ULTRASOUND GUIDED RIGHT THYROID FINE NEEDLE ASPIRATION, DESCRIBED ABOVE. DICTATION LOCATION: [address] us Bassam Sevilla MD IR ORDERABLES Final Re sult * CYTOLOGY, NON GYNE (09/05/2024 9:20 AM CDT) CASE REPORT Medical Cytology Report Case: [id number] Authorizing Provider: Bassam Sevilla MD Collected: 09/05/2024 09:20 AM Ordering Location: [facility] IR Received: 09/05/2024 11:01 AM Pre Post Recovery Specimen: Thyroid, right thyroid nodule biopsy 09/10/2024 5:28 PM CDT [facility] FINAL DIAGNOSIS Thyroid, right, ultrasound-guided FNA - Benign aw 09/10/2024 5:28 PM CDT [facility] at 1728 CDT GROSS DESCRIPTION The specimen is an FNA of the right thyroid performed in Radiology, under ultrasound guidance, and received directly for immediate assessment of adequacy. 6 passes were made yielding 6 slides, 3 of which were stained for immediate interpretation. The intraoperative consult diagnoses are given to Dr. Rendon, separately and sequentially by Dr. Fuller. The remaining slides are fixed and Pap-stained. The additional fluid from the syringes, along with two additional passes, is washed into CytoLyt, yielding bloody fluid, used for a cell block (A1). A pass is taken for molecular hold. 09/10/2024 5:28 PM CDT [facility] MICROSCOPIC DESCRIPTION The aspirate smears show groups of follicular cells and colloid. The cell block shows a small intact fragment of thyroid with variably sized follicles. There is no cytologic atypia. The findings are consistent with benign thyroid tissue. Correlate with clinical and radiographic findings. Dr. Waddell has reviewed this case and concurs. 09/10/2024 5:28 PM CDT [facility] IMMEDIATE ASSESSMENT Thyroid, right, US FNA: Passes 1+2: Adequate Pass 3: Inadequate 4: Molecular 5+6: CytoLyt Dr. Fuller 09/10/2024 5:28 PM CDT [facility] CLINICAL INFORMATION No Dx found. 09/10/2024 5:28 PM CDT [facility] COMMENT Immunohistochemical stains were performed, if any, and interpreted at [facility] ([facility]) Laboratory with appropriately staining controls. This test was developed and its performance characteristics determined by [facility]. It has not been cleared or approved by the US Food and Drug Administration. The FDA does not require this test to go through premarket FDA review. This test is used for clinical purposes, and should not be regarded as investigational or for research. This lab is certified under CLIA to perform high complexity testing. Estrogen and progesterone receptor staining has not been validated in our lab on decalcified tissue; decalcification may decrease immunoreactivity for these and other antigens. 09/10/2024 5:28 PM CDT [facility] Body fluid ENTIRE THYROID GLAND / Unknown Collection / Unknown 09/05/2024 9:20 AM CDT 09/05/2024 11:01 AM CDT us Bassam Sevilla MD PATHOLOGY/CYTOLOGY ORDER RYAN Final Result [facility] [employer] [facility] CLIA# [id number] [address] [place] [address] * LIPID PANEL (07/14/2024 7:46 AM CDT) CHOLESTEROL 175 <200 mg/dL [facility] [...] LDL-C. Tai SANDHU et al. YONI. 2013;310(19): 4717-7705 (http://education.myaNUMBER.Igenica/faq/MPX152) CHOL/HDL RATIO 2.7 <5.0 (calc) [facility] NON-HDL CHOLESTEROL 110 <130 mg/dL (calc) [facility] Comment: For patients with diabetes plus 1 major ASCVD risk factor, treating to a non-HDL-C goal of <100 mg/dL (LDL-C of <70 mg/dL) is considered a therapeutic option. Test Performed at: [facility] [place] [address] [place] [address] Law Nathan MD Blood 07/14/2024 7:46 AM CDT 07/14/2024 7:46 AM CDT Jona Bravo MD CHEMISTRY ORDERABLES Final Re sult Performing Organization Address City/[facility]/ZIP Co de Phone Number [facility] [phone] [facility] [place] [address] [place] [address] * MAMMO SCREEN BILAT W OR WO CAD (05/28/2024 1:46 PM CDT) Anatomical Region Laterality Modality Breast Bilateral Mammography Abstract Provider MAMMO ORDERABLES Edited Result - Final * HEMOGLOBIN A1C (02/13/2024 3:36 PM MANIFOLD BUILDER) Pathologist [facility] ABSTRACTED HGB A1C 5.7 % [facility] Blood 02/13/2024 3:36 PM MANIFOLD BUILDER Jona Bravo MD CHEMISTRY ORDERABLES Final Re sult Performing Organization Address City/[facility]/ZIP Co de Phone Number [facility] CLIA# [id number] [facility] [address] [place] [address] * MICROALBUMIN/CREATININE RATIO, RANDOM UR [...] within a diagnostic category. Test Performed at: [facility] [address] [place] [address] Law Nathan MD Urine URINE SPECIMEN OBTAINED BY CLEAN CATCH PROCEDURE / Unknown 11/26/2023 4:09 PM CDT 11/27/2023 6:37 AM CDT Jona Bravo MD URINE ORDERABLES Final Result Performing Organization Address City/State/[facility] Co de Phone Number [facility] [phone] [place] [place] [address] [place] [address] * XR DEXA BONE DENSITY AXIAL 1 OR MORE SITES (09/20/2020) Anatomical Region Laterality Modality Other Jona Bravo MD DIAGNOSTIC IMAGING ORDERABLES Final Result * HX COLONOSCOPY (08/03/2020) Abstract Provider GENERIC SURGICAL HISTORY Edite d Result - Final Performing Organization Address City/[facility] Co de Phone Number EXTERNAL LAB from Last 3 Months or Most Recently Relevant to Health Maintenance Insurance MEDICARE PART A AND B [facility] PREFERRED RX [employer] Commercial MEDICARE PART A AND B BCBS BLUE PREFERRED Advance Directives For more information, please contact: [phone] * Full Code (Latest Code Status on File) Date Activated Date Inactivated Comments 10/16/2024 3:25 PM 10/17/2024 7:58 PM * Full Code Date Activated Date Inactivated Comments 03/02/2017 8:56 PM 03/05/2017 9:44 PM * Full Code Date Activated Date Inactivated Comments 07/17/2014 10:57 AM 07/17/2014 4:49 PM * Full Code Date Activated Date Inactivated Comments 04/24/2014 2:54 PM 04/24/2014 8:53 PM * Full Code Date Activated Date Inactivated Comments 04/24/2014 11:13 AM 04/24/2014 2:54 PM Care Teams Mat Machine Operator Relationship Specialty Start Date End Date Jona Bravo MD PCP - General Internal Medicine 11/25/15
--- OUTSIDE RECORDS SUMMARY | 2024-12-01 11:29 | XMS_ITS | Encounter Summary ---
Author Organization [facility] Address [address] [place] [address] Care Team Providers Care Youth Advocate Name Role Phone Jona Bravo MD Primary Care Provider Reason for Visit * Reason Comments Paperwork Encounter Details Date Type Department Care Team (Late st Contact Info) Description 04/16/2024 Telephone [facility] Primary Care [address] [place] [address] Jona Bravo MD [address] [facility] [address] [place] [address] Paperwork Social History Tobacco Use [...] often do you attend chur ch or restoration services? Never 01/11/2020 Do you belong to any clubs o r organizations such as sikh groups, unions, fraternal or athletic groups, or [...] on file Legal Sex Female 9:43 AM [employer] Gender Identity Not on file Sexual Orientation [...] - 04/16/2024 2:38 PM CDT Copied from [facility] #[id number]. Topic: Patient or Caregiver Communication Request >> Apr 16, 2024 2:36 PM Jennifer Fair wrote: Patient or Caregiver requesting that a message be sent to Care Team Caller: Tiffanie Ruiz Patient/Caregiver Callback Number: [phone] Call Notes: pt says the her jury duty letter needs to be faxed to the court office fax [phone] Rickey documented in this encounter Plan of Treatment Upcoming Encounters Date Type Department Care Team (Late st Contact Info) Description 02/03/2025 10:00 AM [employer] Office Visit [facility] Surgical Specialists [facility] [address] [facility] [address] [place] [phone] Tami Thorne PA-C [address] [facility] [address] [place] [phone] 03/04/2025 2:40 PM [employer] Office Visit [facility] Primary Care [facility] [address] [place] [address] [address] [place] [phone] Jona Bravo MD [address] [place] [address] [address] [place] [address] 04/30/2025 10:15 AM CDT Office Visit [facility] Heart and Vascular - [facility] [address] [place] [address] Benjamin Taveras MD [address] [facility] [address] [place] [address] documented as of this encounter Visit Diagnoses Not on filedocumented in this encounter Care Teams Youth Advocate Relationship Specialty Start Date End Date Jona Bravo MD PCP - General Internal Medicine 11/25/15 documented as of this encounter
--- OUTSIDE RECORDS SUMMARY | 2024-12-01 11:30 | XMS_ITS | Patient Health Record ---
Author Organization [facility] Address [address] [facility] [address] [place] [address] Care Team Providers Care Metal Melter Name Role Phone Shelly HALE, Jona Primary Care Provider Dave dennis Mary Hewitt Unavailable [phone] Allergies Allergen (clinical drug ingredient) Drug/Non Drug [...] 3 mg daily - *Pick strength-form from Jixeean for eRX* Active Zinc 30 mg daily oral Active Omeprazole 20 MG take 1 capsule (20 mg) by oral route once daily before a meal Oral 1 Active Biotin - daily oral *Pick strength-form from Jixeean for eRX* Active MULTIPLE VITAMINS W/IRON take 1 tablet b y oral route once Oral 1 *Reorder from [employer]ixeean for eRx and Interaction Alerts* Active Levothyroxine Sodium 88 MCG take 1 capsule (88 mcg) by oral route once daily Oral 1 Active Eszopiclone 3 MG take 1 tablet (3 mg) by oral route once daily at bedtime Oral 1 Active Xanax - - oral *Pick strength-form from Jixeean for eRX* Active Pravastatin Sodium 40 MG [...] Active E-Gems - daily oral *Reorder from DNA SEQ for eRx and Interaction Alerts* Active Cymbalta 30 MG take 1 capsule (30 mg) by oral route once daily Oral 1 Active Problems Problem Type SNOMED Code ICD Code Onset Dates Problem Status W/U Status Risk Notes Problem Rheumatoid arthritis (64719376) Rheumatoid arthritis without rheumatoid factor, multiple sites (M06.09) Active confirmed Problem Fibromyalgia (139765062) Fibromyalgia (M79.7) Active confirmed Plan Of Treatment [...] Date Coverage End Date Medicare [address] [address] [place] [address] [id number] JosephTieraTiffanie Self - patient is the insured 8 [employer] OF [place] [address] [place] [address] [id number] Tiffanie Ruiz Self - patient is the insured [employer] [address] [place] [address] [id number] Joseph Tiffanie Self - patient is the insured Medical (General) History Medical History History ICD Code Depression; Fibromyalgia; Hyperlipidemia; Hypertension; Hypothyroidism; Low Back Pain; Sleep apnea;
--- OUTSIDE RECORDS SUMMARY | 2024-12-01 11:30 | XMS_ITS | Clinical Summary ---
Author Organization [facility] Address [id number] [place] [phone] Care Team Providers Care Road Crossing Guard Name Role Phone Jona Bravo MD Primary Care Provider + Desire Sams RN Unavailable Un available Roscoe Mccollum MD Unavailable [phone] Allergies Active Allergy Reactions Criticality Noted Date [...] 24 doses 24 tablet 01/07/20 24 Active busPIRone (BUSPAR) 15 mg tablet Take 1 tablet (15 mg total) by mouth 2 (two) times a day 08/26/19 25 Active cefadroxil (DURICEF) 500 mg capsule Active hydroCHLOROthiaz carolyn 12.5 mg capsule Take 1 tablet/capsul e (12.5 mg total) by mouth daily 08/26/19 25 Active ipratropium (ATROVENT) 21 mcg (0.03 %) nasal spray USE 2 SPRAY(S) IN EACH NOSTRIL TWICE DAILY Active omeprazole (PriLOSEC) 20 mg capsule Take 1 capsule (20 mg total) by mouth daily 10/21/19 25 Active rosuvastatin (CRESTOR) 40 mg tablet Take 1 tablet (40 mg total) by mouth daily 10/31/19 25 Active temazepam (RESTORIL) 15 mg capsule TAKE 1 CAPSULE BY MOUTH NIGHTLY NEEDED FOR SLEEP 30 capsule 12/02/19 25 Active temazepam (RESTORIL) 15 mg capsule TAKE 1 CAPSULE BY MOUTH NIGHTLY NEEDED FOR SLEEP 30 capsule 10/29/19 25 025 Discontinued Active Problems Problem Noted Date Diagnosed Date Bilateral primary osteoarthritis of knee 025 Rheumatoid arthritis without rheumatoid factor, multiple sites 12/11/2023 Left knee pain 05/02/2023 Postmenopausal osteoporosis 06/21/2022 Reactive hypoglycemia 06/01/2022 Dysphagia 12/22/2021 Hyperparathyroidism 10/14/2021 Abnormal results of other endocrine function pasquale dies 10/14/2021 Hypoglycemia 10/10/2021 Chronic left shoulder pain 05/10/2021 Degenerative cervical spinal stenosis 09/12/2019 care home (current) use of opiate analgesic 08/2019 Cervical radiculopathy 09/12/2019 Cervicalgia 09/12/2019 S/P gastric bypass 06/19/2018 Overview (12/26/2019): 06/19/18 Laparoscopic Judy-en-Y Gastric Bypass Chronic right-sided low back pain without sciati ca 05/02/2018 Sacroiliitis (CMS/HCC) - Right 05/02/2018 DDD (degenerative disc disease), lumbar 05/03/19 Actinic keratosis 04/11/2018 Assessment & Plan (04/11/2018 2:20 PM CARRIAGE OPERATOR): - Location/s: Face - Imiquimod Rx - [...] Encounters Date Type Department Care Team Description 11/20/2024 8:30 AM CDT Procedure [facility] [address] [place] [address] [address] [place] [address] Gilmar Bowie Au.D. Sensorineural hearing loss (SNHL) of both ears (Primary Dx) 11/06/2024 11:00 AM CDT Procedure [facility] [address] [place] [address] [address] [place] [address] Gilmar Bowie Au.D. Sensorineural hearing loss (SNHL) of both ears (Primary Dx) 11/06/2024 9:30 AM CDT Office Visit [facility] [address] [place] [address] [place] [phone] Roscoe Miranda MD Pain in both knees, unspecified chronicity (Primary Dx); Bilateral primary osteoarthritis of knee; Primary osteoarthritis of right knee; Primary osteoarthritis of left knee 11/06/2024 7:43 AM CDT - 11/06/2024 11:59 PM CDT Hospital Encounter [facility] [address] [facility] [address] [place] [address] Discharge Disposition: Discharge to home or self care 11/06/2024 7:43 AM CDT - 11/06/2024 11:59 PM CDT Hospital Encounter [facility] [address] [place] [address] [address] [place] [address] Discharge Disposition: Discharge to home or self care 11/06/2024 Telephone [facility] [address] [place] [address] [address] [place] [address] Roscoe Miranda MD 11/06/2024 Documentation [facility] Otolaryngology [address] [place] [address] 11th [place] [address] [place] [address] Dunia Zepeda 10/22/2024 3:00 PM CDT Procedure visit [facility] [address] [facility] [address] [place] [address] Gilmar Bowie Au.D. Sensorineural hearing loss (SNHL) of both ears (Primary Dx) 10/10/2024 9:15 AM CDT Office Visit [facility] [address] [place] [address] Kendrick Hernandez MD MEREDITH (obstructive sleep apnea) (Primary Dx); Psychophysiological insomnia; Hypersomnia with sleep apnea; Obesity (BMI 30.0-34.9) from Last 3 Months Immunizations Immunization Administration [...] dise ase Depression Depression Hx Other Medical 1978 left thigh tumo r removed Spinal stenosis spinal stenosis Hx Other Medical 1979 meningitis Kidney disorder KIDNEY DISEASE Hx Other [...] ([place]) Kidney stone Type 2 diabetes mellitus Diabete s type 2 Cataract Arthritis osteo arthritis Fibromyalgia [...] oz pur e alcohol) Social Connection and Isolation Panel Answer Date Recorded In a typical week, [...] any clubs o r organizations such as protestant groups, unions, fraternal or athletic groups, or [...] on file Legal Sex Female 12:46 AM CARRIAGE OPERATOR Gender Identity Female 04/08/2019 6:15 AM CARRIAGE OPERATOR Sexual Orientation Straight 04/08/2019 6: 15 AM CARRIAGE OPERATOR Occupation Industry Job Start Date Job [...] Sign Reading Time Taken Comments Blood Pressure 110/73 11/06/2024 9:26 AM CDT Pulse 66 11/06/2024 9:26 AM CDT Temperature 36.2 C (97.2 F) 01/07/2024 10:39 AM CARRIAGE OPERATOR Respiratory Rate 18 01/07/2024 6:00 PM CARRIAGE OPERATOR Oxygen Saturation 97% 10/10/2024 9:23 AM CDT Inhaled Oxygen Concentration - - Weight 85.7 kg (189 lb) 11/06/2024 9:26 AM CDT Height 160 cm (5' 3) 11/06/2024 9:26 AM CDT Body Mass Index 33.48 11/06/2024 9:26 AM CDT Plan of Treatment Health Maintenance Due Date Last Done Comments Albumin Creatinine Ratio, Urine 1959 Colon Cancer Screening-Colonoscopy 1959 Hepatitis C Screening 1959 Dilated Eye Exam 1959 Foot Exam 1959 Lipid Panel 10/10/2022 10/10/2021, 10/06, 07/27/2016, Additional history exists Well Visit 65+ 02/05/2024 Depression Screening 05/01/2024 05/02/2023, 05/02/2023, 09/12/2019 Hemoglobin A1C 08/12/2024 02/13/2024, 12/06, 10/17/2023, Additional history exists Osteoporosis Screening-Bone Density Scan 09/08/2024 09/08/2022, 09/08/2021, 09/20/2020, Additional history exists Covid-19 Vaccine (2024-03 6 season) 2024 10/13/2021, 12/12/2020, 11/19/2020, Additional history exists Fall Risk Assessment 12/31/2024 01/01/2024 eGFR 01/06/2025 01/07/2024, 12/06, 02/08/2023, Additional history exists Breast Cancer Screening-Mammogram 05/28/2025 05/28/2024, 09/08/2022, 07/08/2021, Additional history exists Pneumococcal vaccine 65+ (3 of 3 - PCV20 or PCV21) 02/10/2027 02/10/2022, 05/30/2016, 09/16/2014, Additional history exists DTaP/Tdap/Td Vaccine (5 - Td or Tdap) 01/16/2031 01/16/2021, 11/16/2020, 02/05/2013, Additional history exists Zoster Vaccine Completed 02/13/2022, 10/13/2021 Influenza Vaccine Completed 10/20/2024, , 11/22/2020, Additional history exists Medical Devices Implanted Type Area Wire Harness Assembler Device Identifier Shelf Expiration Date Model / Serial / Lot UnboundID Cruzito 180-223 Contour 6fr 26cm Large Inner Lumen Low Profile Bladder Lei Taper Latex Free - [id number] Implanted:Qty: 1 on 04/23/2018 by Christopher Her MD at [facility] Stent Right: Ureter [employer] Cruzito 11/19/2020 180-223 / / [id number] Plates Screws N/A: Neck [employer] Lead Neurostimulator Sleep Apnea Thoracic Permanent Respiratory Sensing Inspire 43cm 4340 - [id number] - [id number] Implanted:Qty: 1 on 01/01/2024 by Caren Abraham MD at [facility] N/A: Chest [employer] 07/21/2026 4340 / [id number] / [employer] Inspire 3 Electrode Cuff Tunnel José Lead Neurostimulator Sterile 4063 - [id number] - [id number] Implanted:Qty: 1 on 01/01/2024 by Caren Abraham MD at [facility] N/A: Neck [employer] 01/22/2026 4063 / [id number] / [employer] Inspire Generator 3028 - [id number] - [id number] Implanted:Qty: 1 on 01/01/2024 by Caren Abraham MD at [facility] N/A: Chest [employer] 07/22/2026 3028 / [id number] C / Procedures Procedure Name Priority Date/Time Associated Diagnosis Comments XR KNEE BILATERAL 4 OR MORE VIEWS Schedule Routine, Read Routine (OP Routine) 11/06/2024 9:18 AM CDT Pain in both knees, unspecified chronicity XR PELVIS 1 OR 2 VIEWS Schedule Routine, Read Routine (OP Routine) 11/06/2024 9:16 AM CDT Pain in both knees, unspecified chronicity AUDBASE RESULTS 10/22/2024 2:40 PM CDT SCREENING MAMMOGRAM BILATERAL W DANILO Schedule Routine, Read Routine (OP Routine) 05/28/2024 4:41 PM CDT Screening mammogram, encounter for EGFR STAT 01/07/2024 11:11 AM CARRIAGE OPERATOR HEMOGLOBIN A1C Routine 12/24/2023 10:56 AM CARRIAGE OPERATOR Type 2 diabetes mellitus with other specified complication, unspecified whether skilled nursing insulin use (HCC) Pre-op testing DEXA AXIAL AND FOREARM BONE DENSITY SCAN Schedule Routine, Read Routine (OP Routine) 09/08/2022 1:34 PM CDT Hyperparathyroidis m LIPID PANEL STAT 10/10/2021 1:52 PM CDT from Last 3 Months or Most Recently Relevant to Health Maintenance Results * XR Knee Bilateral 4 or More Views (11/06/2024 9:18 AM CDT) Anatomical Region Laterality Modality Lower Extremities, Knee Digital Radiography Narrative 11/06/2024 12:39 PM CDT Severe advanced bilateral knee tricompartmental osteoarthritis with [id number] contact, osteophyte formation, subluxation. Melinda WATT IMG XR PROCEDURES Fin al Result * XR Pelvis 1 or 2 Views (11/06/2024 9:16 AM CDT) Anatomical Region Laterality Modality Body, Pelvis N/A Digital Radiogra phy Narrative 11/06/2024 12:39 PM CDT Age-related degenerative change of the bilateral hips with retained joint space. Melinda WATT IMG XR PROCEDURES Fin al Result * AudBase Results (10/22/2024 2:40 PM CDT) Provider Scanning AUDIOLOGY SERVICES ORDERABLES Final Result * Screening Mammogram Bilateral W Danilo (05/28/2024 [...] obscures a portion of the right axilla. Self Screening Mammogram IMG MAMMO PROCEDURES Fi nal Result * eGFR (01/07/2024 11:11 AM CARRIAGE OPERATOR) eGFR >90 >=60 mL/min/1. 73 m2 Comment: [...] of Race in Diagnosing Kidney Disease, JASN 202). The CKD-EPI equation should not be used for patients with unstable renal function and has not been validated in children and those over 70. Current interpretive data was last reviewed 2020. Blood 01/07/2024 11:1 1 AM CARRIAGE OPERATOR 01/07/2024 11:14 AM CARRIAGE OPERATOR Ayla Ambrose MD LAB BLOOD ORDERABLE S Final Result [facility] [address] [facility] Department [place] [address] * Hemoglobin A1c (12/24/2023 10:56 AM CARRIAGE OPERATOR) Hgb A1C 5.0 4.0 - 5.6 % Estimated Average Glucose 97 mg/dL [facility] Comment: The ADA recommends reporting an estimated Average Glucose (eAG) with all Hemoglobin A1c results using the equation derived from a study of 507 normal and diabetic adults. Minority populations were underrepresented and children were not included. (Diabetes Care 31:4598-4948, 2008). The eAG is not equivalent to a fasting glucose. Blood 12/24/2023 10:5 6 AM CARRIAGE OPERATOR 12/24/2023 11:08 AM CARRIAGE OPERATOR us Ivet Hoyos NP LAB BLOOD ORDERABLES Final Res ult [facility] [address] Department [place] [address] * Dexa Axial and Forearm Bone Density Scan (09/08/2022 1:34 PM CDT) Anatomical Region Laterality Modality Wrist, Body N/A Other 09/09/2022 6:09 AM CDT Narrative 09/09/2022 6:11 AM CDT EXAM DESCRIPTION: DEXA AXIAL AND FOREARM BONE DENSITY SCAN REASON FOR STUDY: 62 y/o year old F with given history of: Hyperparathyroidism. Postmenopausal status. Osteoporosis. Wire Harness Assembler/Model: Wheelright Discovery SL (S/N [id number]) CLINICAL INFORMATION: Current height: 63.5 inches Maximum [...] Cecy Ratliff M.D. TW: TW Report ID: [id number] Reading Location: [id number] Procedure Note Cecy Ratliff MD - 09/09/2022 EXAM DESCRIPTION: DEXA AXIAL AND FOREARM BONE DENSITY SCAN REASON FOR STUDY: 62 y/o year old F with given history of: Hyperparathyroidism. Postmenopausal status. Osteoporosis. Wire Harness Assembler/Model: Transcriptic SL (S/N [id number]) CLINICAL INFORMATION: Current height: 63.5 inches Maximum [...] Cecy Ratliff M.D. TW: TW Report ID: [id number] Reading Location: [place] [address] Dylan To MD [facility] DXA PROCEDURES Final Result * Lipid panel (10/10/2021 1:52 PM CDT) [facility] Cholesterol 139 30 - 199 mg/dL [...] revised on 2017. Triglycerides 36 <=149 mg/dL [facility] Comment: Interpretive Data Ages < or [...] revised on 2017. HDL 72 >=40 mg/dL [facility] Comment: Interpretive Data Ages < or [...] on 2017. LDL, calculated 60 <=129 mg/dL [facility] Comment: Interpretive Data Ages < or [...] revised on 2017. Non-HDL Cholesterol 67 mg/dL [facility] Comment: Interpretive Data Ages < or [...] MD LAB BLOOD ORDERABLES Final Result [facility] Department [place] [address] from Last 3 Months or Most Recently Relevant to Health Maintenance Insurance [place]IC[place] Advance Directives For more information, please contact: [phone] * Full Code (Latest Code Status on File) Date Activated Date Inactivated Comments 10/10/2021 5:37 PM 10/11/2021 8:50 PM * Full Code Date Activated Date Inactivated Comments 08/18/2017 6:39 PM 08/22/2017 3:[address] Crossing Guard Relationship Specialty Start Date End Date Jona Bravo MD PCP - General 05/05/16 Desire Sams, BRICE Registered Nurse 04/03/17 Roscoe Mccollum MD Anesthesiologist Pain Management 12/21/21
--- OUTSIDE RECORDS SUMMARY | 2024-12-01 11:30 | XMS_ITS | Encounter Summary ---
Author Organization [facility] Address [address] [place] [address] Care Team Providers Care Pipeline Superintendent Name Role Phone Jona Bravo MD Primary Care Provider Reason for Visit * Reason Onset Date Comments HFU 10/11/2021 Encounter Details Date Type Department Care Team (Late st Contact Info) Description 10/11/2021 Telephone [facility] Primary Care [address] [place] [address] Jona Bravo MD [address] [place] [address] [address] [place] [address] HFU Social History Tobacco Use [...] any clubs o r organizations such as jainism groups, unions, fraternal or athletic groups, or [...] on file Legal Sex Female 9:43 AM BULLET SLUG CASTING MACHINE OPERATOR Gender Identity Not on file [...] - 10/11/2021 1:30 PM CDT CB pt [phone] (home) Patient is being discharged from the hospital today, 10/11, from [facility] according to patient case coordinator Krzysztof. Patient was scheduled for a hospital follow up with PCP for 10/14/21; caller stated that [facility] wants patients to be seen no sooner than 7 days after discharge; PSA informed patient needs to be seen within 5 days per PCP; caller stated she may advise patient to reschedule. Please call the patient to [facility] and request medical records as it was not mentioned during the call. documented in this encounter Plan of Treatment Upcoming Encounters Date Type Department Care Team (Late st Contact Info) Description 02/03/2025 10:00 AM BULLET SLUG CASTING MACHINE OPERATOR Office Visit [facility] [address] [facility] [address] [place] [address] Tami Thorne PA-C [address] [facility] [address] [place] [phone] 03/04/2025 2:40 PM BULLET SLUG CASTING MACHINE OPERATOR Office Visit [facility] Primary Care [facility] [address] [place] [address] [address] [place] [address] Jona Bravo MD [address] [facility] [address] [place] [address] 04/30/2025 10:15 AM CDT Office Visit [facility] - [facility] [address] [address] [facility] [address] [place] [address] Benjamin Taveras MD [address] [facility] [address] [place] [address] documented as of this encounter Visit Diagnoses Not on filedocumented in this encounter Additional Health Concerns Assessment Noted Time PHQ-9 Depression Total Score: 2 01/11/20 20 4:07 PM BULLET SLUG CASTING MACHINE OPERATOR documented as of this encounter Care Teams Pipeline Superintendent Relationship Specialty Start Date End Date Jona Bravo MD PCP - General Internal Medicine 11/25/15 documented as of this encounter
--- OUTSIDE RECORDS SUMMARY | 2024-12-01 11:30 | XMS_ITS | Encounter Summary ---
Author Organization [facility] Health Address [address] [facility] [place] [address] Care Team Providers Care Surface Water Manager Name Role Phone Jesse Garcia MD Primary Care Provider [phone] Jona Bravo MD Primary Care Provider [phone] Kirill Jean MD Primary Care Provider [phone] Jona Bravo MD Primary Care Provider [phone] Kirill Jean MD Primary Care Provider [phone] Jona Bravo MD Primary Care Provider [phone] Kirill Jean MD Primary Care Provider [phone] Jona Bravo MD Primary Care Provider [phone] Kirill Jean MD Primary Care Provider [phone] Kirill Jean MD Primary Care Provider [phone] Tenisha Tena MD Primary Care Provide r Kirill Jean MD Primary Care Provider [phone] Jona Bravo MD Primary Care Provider [phone] Encounter Details Date Type Department Care Team (Late st Contact Info) Description 08/05/2010 [facility] Steph Mar, SCHOOL PSYCHOLOGY SPECIALIST-TRAIN GATE ATTENDANT [address] [facility] [address] [place], [place] [id number] Social History Tobacco Use Types Packs/Day Years Used Date Smoking Tobacco: Never Smokeless Tobacco: Never Alcohol Use Standard Drinks/Week Comments No 0 (1 standard drink = 0.6 oz pur e alcohol) Comments Unknown Sex and Gender Information Value Date Recorded Sex Assigned at Female 04/25/2020 11:44 PM CDT Legal Sex Female 6:58 AM SPANISH LANGUAGE LECTURER Gender Identity Female 04/25/2020 11:44 PM CDT Sexual Orientation Straight 04/25/2020 11 :44 PM CDT documented as of this encounter Plan of Treatment Upcoming Encounters Date Type Department Care Team (Late st Contact Info) Description 12/19/2024 12:40 PM SPANISH LANGUAGE LECTURER Office Visit [facility] Health Weight Management Services [id number] [place] [address] [address] [place] [address] [place] [address] [address] 04/13/2025 10:00 AM CDT Procedure visit [facility] - [place] [address] [place] [phone] 04/13/2025 10:30 AM CDT Office Visit [facility] - [facility] [address] [place] [phone] Soham Hutton MD [address] [place] [address] [place] [address] documented as of this encounter Visit Diagnoses Not on filedocumented in this encounter Care Teams Surface Water Manager Relationship Specialty Start Date End Date Jesse Garcia MD [address] [address] PCP - General 11/04/09 06/30/14 Jona Bravo MD [address] [place] [address] PCP - General Internal Medicine 11/29/15 05/23/17 Kirill Jean MD [address] [place] [phone] PCP - General 05/24/17 12/16/17 Jona Bravo MD [address] [place] [address] PCP - General Internal Medicine 12/17/17 03/19/18 Kirill Jean MD [address] [place] [phone] PCP - General 03/20/18 03/25/18 Jona Bravo MD [address] [place] [address] PCP - General Internal Medicine 03/26/18 05/01/18 Kirill Jean MD [address] [place] [phone] PCP - General 05/02/18 06/18/18 Jona Bravo MD [address] [place] [address] PCP - General Internal Medicine 06/19/18 07/31/18 Kirill Jean MD [address] [place] [address] PCP - General 08/01/18 11/19/18 Kirill Jean MD [address] [place] [phone] PCP - General 02/13/19 09/18/19 Tenisha Tena MD [address] [place] [phone] PCP - General Family Medicine 09/19/19 01/07/20 Kirill Jean MD [address] [place] [phone] PCP - General 01/08/20 10/15/22 Jona Bravo MD [address] [place] [phone] PCP - General Internal Medicine 10/16/22 documented as of this encounter
--- OUTSIDE RECORDS SUMMARY | 2024-12-01 11:31 | XMS_ITS | Patient Health Record ---
Author Organization [facility] Address [address] [address] Care Team Providers Care Chronograph Operator Name Role Phone Kathi Aragon Primary Care Provider Migration, Provider Unavailable Unavailable Allergies Allergen (clinical drug ingredient) Drug/Non Drug Allergy documented on EMR Reaction Allergy Type Onset Date Status meperidine Meperidine Unknown Drug Allergy Activ e codeine Codeine Unknown Drug Allergy Active levofloxacin levoFLOXacin Unknown Drug Allergy A ctive gabapentin Gabapentin Unknown Drug Allergy Activ e doxycycline Doxycycline Unknown Drug Allergy Act miguel Reason For Referral No Information Medications Medication SIG (Take, Route, Frequency, Duration) Notes Start Date End Date Status Prolia 60 MG/ML as directed subcutaneously every 6 months; Duration: 180 days 05/09/2023 Not-Taking Prolia 60 MG/ML as directed subcutaneously every 6 months; Duration: 180 days 06/07/2023 Not-Taking buPROPion HCl ER [...] 6 months; Duration: 1 days 03/30/2023 Active Xanax 0.5 MG [...] review and pick correct strength-formula tion from [employer] options. If intended option is not shown, discontinue and re-order from Quick Search* 06/15/2023 Not-Taking Denosumab 60 MG/ML INJECT 60 MG SUBCUTANEOUSLY EVERY 6 MONTHS; Duration: 1 DAYS *Please review and pick correct strength-formula tion from [employer] options. If intended option is not shown, discontinue and re-order from Quick Search* 06/28/2023 Not-Taking Pregabalin 75 MG 1 cap(s) orally 2 times a day; Duration: 30 days 10/27/2023 Not-Taking Pregabalin 100 MG 1 cap(s) orally 2 times a day; Duration: 30 days 10/30/2023 Not-Taking Iron Up 10 MG/0.3 ML 1 ML ORALLY TWICE DAILY WITH MEALS; Duration: 90 DAYS *Please review and pick correct strength-formula tion from [employer] options. If intended option is not shown, discontinue and re-order from Quick Search* 05/18/2023 Not-Taking Prolia 60 MG/ML as directed subcutaneously every 6 months; Duration: 12 days 05/25/2023 Not-Taking Vitamin D3 Active [...] subcutaneously once weekly; Duration: 90 days 06/25/2023 Active Magnesium Oxide 500 MG 1 TAB(S) ORALLY ONCE A DAY *Please review and pick correct strength-formula tion from [employer] options. If intended option is not shown, discontinue and re-order from Quick Search* Not-Taking HYDROcodone Bitartrate ER 10 MG 1 cap(s) orally every 12 hours 1 TABLET EVERY 6 HOURS FOR PAIN Active Estradiol 1 MG/1 G (0.1%) 1 EA TRANSDERMALLY ONCE A DAY *Please review and pick correct strength-formula tion from [employer] options. If intended option is not shown, discontinue and re-order from Quick Search* Active Problems Problem Type SNOMED Code ICD Code Onset Dates Problem Status W/U Status Risk Notes Problem Hyperglycemia due to type 2 diabetes mellitus (050927033835095) Type 2 diabetes mellitus with hyperglycemia (E11.65) Active confirmed Problem Hyperlipidemia (74104525) Hyperlipidemia, unspecified (E78.5) Active confirmed Problem Type II diabetes mellitus without complication (046679525) Type 2 diabetes mellitus without complications (E11.9) Active confirmed Problem Hypothyroidism (36814350) Hypothyroidism, unspecified (E03.9) Active confirmed Problem Obesity (126276935) Obesity, unspecified (E66.9) Active confirmed Problem Post-herpetic trigeminal neuralgia (08987537) Postherpetic trigeminal neuralgia (B02.22) Active confirmed Problem Postherpetic neuralgia (3044952) Other postherpetic nervous system involvement (B02.29) Active confirmed Problem Hypoglycemia due to type 2 diabetes mellitus (963854486786118) Type 2 diabetes mellitus with hypoglycemia without coma (E11.649) Active confirmed Problem Hypoglycemia (126145912) Hypoglycemia, unspecified (E16.2) Active confirmed Problem Insomnia (097411817) Insomnia due to medical condition (G47.01) Active confirmed Problem Age-related osteoporosis (238651356) Age-related osteoporosis without current pathological fracture (M81.0) Active confirmed Problem Chronic fatigue syndrome (disorder) (15387853) Chronic fatigue, unspecified (R53.82) Active confirmed Vital Signs Heart Rate 73 /min 01/21/2024 Blood pressure diastolic 78 mm Hg 01/21/2024 Height 63 in 01/21/2024 Blood pressure systolic 138 mm Hg 01/21/2024 Weight 188.4 lbs 01/21/2024 BMI 33.37 kg/m2 01/21/2024 Encounters Encounter Location Date Provider Diagnosis [facility] - Kathi [facility] [address] [place] [address] 01/21/2024 Kathi Aragon Type 2 diabetes mellitus without complications E11.9 ; Hypoglycemia, unspecified E16.2 ; Age-related osteoporosis without current pathological fracture M81.0 ; Hyperlipidemia, unspecified E78.5 ; Obesity, unspecified E66.9 and Dietary counseling and surveillance Z71.[address] [address] 12/22/2023 Provider Migration Type 2 diabetes mellitus with hypoglycemia without coma E11.649 and Insomnia due to medical condition G47.01 [facility] Kathi [facility] [address] [place] [address] 12/20/2023 [facility]i [employer] [facility] [facility], [facility] - Kathi [facility] [address] [place] [address] 12/21/2023 Kathi Aragon Type 2 diabetes mellitus with hypoglycemia without coma E11.649 [facility] Kathi [facility] [address] [place] [address] 01/21/2024 Kathi Aragon [facility], [facility] Kathi [facility] [address] [place] [address] 01/22/2024 Kathi Aragon [facility] [facility], [facility] Kathi [facility] [address] [place] [address] 02/25/2024 Kathi [employer] [facility] [facility], [facility] - Kathi [facility] [address] [place] [address] 03/03/2024 Kathi Aragon Assessments Encounter Date Diagnosis (ICD [...] E11.649) 01/21/2024 Hypoglycemia, unspecified (ICD-10 - E16.2) 01/21/2024 [...] - Investigate billing and coding issues with [facility] - Obtain updated lab work once [...] examination and/or evaluation, counseling and educating the patient/family/home health care provider, ordering medications, tests, or procedures, referring and communicating with other health intensive care medicine specialist, documenting clinical information in the electronic or other health record, independently interpreting results and communicating results to the patient/family/home health care provider and care coordinating patient plan. Patient alert [...] Date Coverage End Date Medicare [address] [address] [place] [address] [id number] Tiffanie Ruiz Self - patient is the insured [facility] [address] [address] [place] [address] [id number] Tiffanie Ruiz Self - patient is the insured Medical (General) History Medical History History ICD Code HYPOGLYCEMIA type 2 DM hypothyroidism osteoporosis Surgical History Surgery Date(Month/Year) gastric bypass
--- OUTSIDE RECORDS SUMMARY | 2024-12-01 11:32 | XMS_ITS | Encounter Summary ---
Author Organization [facility] Address [address] [place] [address] Care Team Providers Care Business Objects Report Developer Name Role Phone Jona Bravo MD Primary Care Provider [phone] Reason for Visit * Reason Comments Question Encounter Details Date Type Department Care Team ([facility] st Contact Info) Description 03/23/2023 Telephone [facility] [address] [place] [address] Jona Bravo MD [address] [facility] [address] [place] [address] Question Social History Tobacco Use [...] often do you attend chur ch or orthodoxy services? 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 Topic: Patient or Caregiver Communication Request >> Mar 23, 2023 12:21 PM David Monte wrote: Patient or Caregiver calling to update PCP team on status after a recent visit Caller: Eda Patient/Caregiver Callback Number: [phone] Call Notes: Message: Eda is calling to check the status of fax requesting brace for lower back and knees of patient. Informed Eda that we put the request on Dr. Bravo's desk. She wanted io inform they need the request back within 3-5 days. Please Advise CULTURIST documented in this encounter Plan of Treatment Upcoming Encounters Date Type Department Care Team (Late st Contact Info) Description 02/03/2025 10:00 AM AGRICULTURIST Office Visit [facility] [address] [facility] [address] [place] [address] Tami Thorne PA-C [address] [facility] [address] [place] [address] 03/04/2025 2:40 PM AGRICULTURIST Office Visit [facility] Primary [facility] [address] [facility] [address] [place] [address] Jona Bravo MD [address] [facility] [address] [place] [address] 04/30/2025 10:15 AM CDT Office Visit [facility] - [facility] [address] [place] [address] Benjamin Taveras MD [address] [facility] [address] [place] [address] documented as of this encounter Visit Diagnoses Not on filedocumented in this encounter Care Teams Business Objects Report Developer Relationship Specialty Start Date End Date Jona Bravo MD PCP - General Internal Medicine 11/25/15 documented as of this encounter
--- OUTSIDE RECORDS SUMMARY | 2024-12-01 11:32 | XMS_ITS | Encounter Summary ---
Author Organization [facility] Address [address] [place] [address] Care Team Providers Care Signal Maintainer Name Role Phone Jona Bravo MD Primary Care Provider Reason for Visit * Reason Onset Date Comments Red flag- Severe Pain 08/14/2022 Encounter Details Date Type Department Care Team (Late st Contact Info) Description 08/14/2022 Telephone [facility] Primary [facility] [address] [place] [address] Jona Bravo MD [address] [place] [address] [address] [place] [address] Red flag- Severe Pain Social [...] attend chur ch or moravian services? Never 01/11/2020 Do you belong to any clubs o r organizations such as judaism groups, unions, fraternal or athletic groups, or [...] on file Legal Sex Female 9:43 AM WELDING MACHINE OPERATOR ARC Gender Identity Not on file Sexual Orientation [...] and suggested an injection. Call back number: [phone] (home) Home Phone Work Phone documented in this encounter Plan of Treatment Upcoming Encounters Date Type Department Care Team (Late st Contact Info) Description 02/03/2025 10:00 AM WELDING MACHINE OPERATOR ARC Office Visit [facility] [address] [facility] [address] [place] [address] Tami Thorne PA-C [address] [facility] [address] [place] [address] 03/04/2025 2:40 PM WELDING MACHINE OPERATOR ARC Office Visit [facility] Primary Care [facility] [address] [place] [address] [address] [place] [phone] Jona Bravo MD [address] [place] [address] [address] [place] [phone] 04/30/2025 10:15 AM CDT Office Visit [facility] Heart and Vascular - [facility] [address] [address] [facility] [address] [place] [address] Benjamin Taveras MD [address] [facility] [address] [place] [address] documented as of this encounter Visit Diagnoses Not on filedocumented in this encounter Care Teams Signal Maintainer Relationship Specialty Start Date End Date Jona Bravo MD PCP - General Internal Medicine 11/25/15 documented as of this encounter
--- OUTSIDE RECORDS SUMMARY | 2024-12-01 11:32 | XMS_ITS | Patient Health Record ---
Author Organization [facility] Address [address] [place] [address] Care Team Providers Care Flour Broker Name Role Phone Kathi Zimmerman Unavailable [phone] Migration, Provider Unavailable Unavailable Allergies Allergen (clinical drug ingredient) Drug/Non Drug Allergy documented on EMR Reaction Allergy Type Onset Date Status gabapentin Gabapentin Unknown Drug Allergy Activ e levofloxacin levoFLOXacin Unknown Drug Allergy A ctive doxycycline Doxycycline Unknown Drug Allergy Act miguel codeine Codeine Unknown Drug Allergy Active meperidine Meperidine Unknown Drug Allergy Activ e Results Component Value Reference Range Flag Notes DEXAMETHASONE ([id number]) Reviewed date:07/03/2024 11:07:46 PM Interpretation: Performing Lab:[facility],[address] [address] [facility] Maryan Vargas MD,PhD,[place]ORE[place] Notes/Report: FASTING:YES MULTIPLE TESTING PRIORITIES; ROUTINE TESTING TO FOLLOW. FASTING: YES DEXAMETHASONE 142 used for clinical purposes. It has not been cleared or approved by the FDA. This assay Baseline: Less than 20 ng/dL This test was developed and its analytical performance has been validated pursuant to the CLIA regulations and is 1 mg dexamethasone overnight: 180-550 ng/dL (8:00-10:00 AM) characteristics have been determined by [facility]. Reference Ranges for Dexamethasone: CORTISOL, TOTAL (367) Reviewed date:07/18/2024 03:44:18 PM Interpretation: Performing Lab:[id number] Chris Milligan, [id number] Law Nathan MD Notes/Report: SPLIT 06/24/2024 FROM [id number] FASTING:YES FASTING: YES CORTISOL, TOTAL 13.4 N Reference Range: For 8 a.m.(7-9 a.m.) Specimen: 4.0-22.0 Reference Range: For 4 p.m.(3-5 p.m.) Specimen: 3.0-17.0 * Please interpret above results accordingly * CBC + AutoDiff 5 Reviewed date:03/19/2024 02:09:52 [...] 1 Primary hyperparathy roidism (E21.0) Referral Organization [facility] Dr. Zimmerman Referring Provider First Name Kathi Referring Provider Last Name Margo Referring Provider Speciality Endocrinol ogy Referred Provider Specialty Surgical Onc ology Referral Priority Routine Reason Consult with Dr. Tanna almodovar Diagnosis 1 Hyperparathyroidism, unspecified (E21.3) Referral Organization [facility] Dr. Zimmerman Referring Provider First Name Kathi Referring Provider Last Name Margo Referring Provider Speciality Sarah hood Referred Provider Specialty Surgical Onc ology Referral Priority Routine Medications Medication SIG (Take, Route, Frequency, Duration) Notes Start Date End Date Status Cyanocobalamin 1000 MCG/15ML Liquid INJECT 1 ML BY SUBCUTANEOUS ROUTE ONCE A WEEK weekly; Duration: 90 days Active Eszopiclone 3 MG Tablet 1 tab(s) orally once a day (at bedtime) Not-Taking Levothyroxine Sodium 88 MCG Tablet 1 tab(s) orally once a day Active Aspirin 81 MG Tablet Delayed Release 1 tab(s) orally once a day Not-Taking Potassium Citrate ER 10 MEQ (1080 MG) Tablet Extended Release 1 tab(s) orally 3 times a day Not-Taking Gvoke HypoPen One Pack 1 MG/0.2 ML SOLUTION DIRECTED SUBCUTANEOUSLY ONCE; Duration: 1 DAYS *Please review for potential replacement for e-prescription and drug interaction check* *Reorder from [facility] for eRx and Interaction Alerts* 03/30/2023 Active Estradiol 1 MG/1 G (0.1%) GEL 1 EA TRANSDERMALLY ONCE A DAY *Please review and pick correct strength-formula tion from [facility] options. If intended option is not shown, discontinue and re-order from Quick Search* *Pick strength-form from [facility] for eRX* Active Pregabalin 75 MG Capsule 1 cap(s) orally 2 times a day; Duration: 30 days 10/27/2023 Not-Taking Gvoke HypoPen 1-Pack 1 MG/0.2ML Solution Auto-injector USE DIRECTED ONCE NEEDED FOR SUGARS UNDER 50 MG/DL; Duration: 1 Active buPROPion HCl ER (XL) 300 MG Tablet Extended Release 24 Hour 1 tab(s) orally every 24 hours Active Pregabalin 100 MG Capsule 1 cap(s) orally 2 times a day; Duration: 30 days 10/30/2023 Not-Taking Albuterol Sulfate HFA 108 (90 Base) MCG/ACT Aerosol Solution 2 puff(s) inhaled every 6 hours Active Iron Up 10 MG/0.3 ML LIQUID 1 ML ORALLY TWICE DAILY WITH MEALS; Duration: 90 DAYS *Please review and pick correct strength-formula tion from [facility] options. If intended option is not shown, discontinue and re-order from Quick Search* *Pick strength-form from [facility] for eRX* 05/18/2023 Not-Taking tiZANidine HCl 4 MG Tablet 2 cap(s) orally 3 times a day Active Prolia 60 MG/ML Solution Prefilled Syringe as directed subcutaneously every 6 months; Duration: 12 days 05/25/2023 Not-Taking GVOKE HYPOPEN TWO PACK 1 MG/0.2 ML SOLUTION INJECT 1 MG NEEDED SUBCUTANEOUSLY ONCE; Duration: 1 DAYS *Please review for potential replacement for e-prescription and drug interaction check* *Reorder from [facility] for eRx and Interaction Alerts* 06/15/2023 Not-Taking Ferrous Sulfate 300 MG/5 ML LIQUID 5 ML ORALLY ONCE A DAY; Duration: 90 DAYS *Please review and pick correct strength-formula tion from [facility] options. If intended option is not shown, discontinue and re-order from Quick Search* *Pick strength-form from [facility] for eRX* 06/15/2023 Not-Taking HYDROcodone Bitartrate ER 10 MG Capsule Extended Release 12 Hour 1 cap(s) orally every 12 hours 1 TABLET EVERY 6 HOURS FOR PAIN Active Denosumab 60 MG/ML SOLUTION INJECT 60 MG SUBCUTANEOUSLY EVERY 6 MONTHS; Duration: 1 DAYS *Please review and pick correct strength-formula tion from [facility] options. If intended option is not shown, discontinue and re-order from Quick Search* *Pick strength-form from [facility] for eRX* 06/28/2023 Not-Taking amLODIPine Besylate 5 MG Tablet 1 tablet Orally Once a day Active Spironolactone 25 MG Tablet 1 tablet Orally Active Vitamin D3 *Pick strength-form from [facility] for eRX* Active Xanax 0.5 MG Tablet 1 tab(s) orally at bedtime; Duration: 90 days 11/07/2023 Not-Taking DULoxetine HCl 60 MG Capsule Delayed Release Particles 1 capsule Orally Once a day Active GVOKE HYPOPEN TWO PACK 1 MG/0.2 ML SOLUTION DIRECTED SUBCUTANEOUSLY ONCE NEEDED FOR SUGARS UNDER 50 MG/DL; Duration: 1 DAYS *Please review for potential replacement for e-prescription and drug interaction check* *Reorder from [facility] for eRx and Interaction Alerts* 12/21/2023 Not-Taking Pravastatin Sodium 80 MG Tablet 1 tab(s) orally once a day Active Prolia 60 MG/ML Solution Prefilled Syringe inject 60 mg Subcutaneous once; Duration: 90 days 05/30/2024 Active dexAMETHasone 1 MG Tablet TAKE 1 TABLET BY MOUTH AT 10 PM THE NIGHT BEFORE DST; Duration: 1 Active Magnesium Oxide 500 MG TABLET 1 TAB(S) ORALLY ONCE A DAY *Please review and pick correct strength-formula tion from [facility] options. If intended option is not shown, discontinue and re-order from Quick Search* *Pick strength-form from [facility] for eRX* Not-Taking Prolia 60 MG/ML Solution Prefilled Syringe as directed subcutaneously every 6 months; Duration: 180 days 05/09/2023 Not-Taking Prolia 60 MG/ML Solution Prefilled Syringe as directed subcutaneously every 6 months; Duration: 180 days 06/07/2023 Not-Taking Prolia 60 MG/ML Solution Prefilled Syringe as directed subcutaneously every 6 months; Duration: 1 days 03/30/2023 Active GVOKE HYPOPEN TWO PACK 1 MG/0.2 ML SOLUTION DIRECTED SUBCUTANEOUSLY ONCE; Duration: 1 DAYS *Please review for potential replacement for e-prescription and drug interaction check* *Reorder from [facility] for eRx and Interaction Alerts* 06/14/2023 Not-Taking Social History Section Notes: Non-Contributory Problems Problem Type SNOMED Code ICD Code Onset Dates Problem Status W/U Status Risk Notes Problem Post-herpetic trigeminal neuralgia (75142885) Postherpetic trigeminal neuralgia (B02.22) Active confirmed Problem Postherpetic neuralgia (7854186) Other postherpetic nervous system involvement (B02.29) Active confirmed Problem Hypothyroidism (94853743) Hypothyroidism, unspecified (E03.9) Active confirmed Problem Hypoglycemia due to type 2 diabetes mellitus (110891392030931) Type 2 diabetes mellitus with hypoglycemia without coma (E11.649) Active confirmed Problem Hyperglycemia due to type 2 diabetes mellitus (091839999226691) Type 2 diabetes mellitus with hyperglycemia (E11.65) Active confirmed Problem Type II diabetes mellitus without complication (247279288) Type 2 diabetes mellitus without complications (E11.9) Active confirmed Problem Hypoglycemia (402992484) Hypoglycemia, unspecified (E16.2) Active confirmed Problem Primary hyperparathyroidism (72036197) Primary hyperparathyroidism (E21.0) Active confirmed Problem Hyperparathyroidism (63796408) Hyperparathyroidism, unspecified (E21.3) Active confirmed Problem Obesity (420071359) Obesity, uns pecified (E66.9) Active confirmed Problem Insomnia (319114770) Insomnia du e to medical condition (G47.01) Active confirmed Problem Age-related osteoporosis (643381261) Age-related osteoporosis without current pathological fracture (M81.0) Active confirmed Problem Osteoporosis (06496005) Other osteoporosis without current pathological fracture (M81.8) Active confirmed Problem Menopause (301104159) Menopausal and female climacteric states (N95.1) Active confirmed Problem Chronic fatigue syndrome (disorder) (28744593) Chronic fatigue, unspecified (R53.82) Active confirmed Problem Dyslipidemia (479617749) Dyslipidemia (E78.5) Active confirmed Vital Signs Heart Rate 85 /min 07/29/2024 Height-cm 160.02 cm 07/29/2024 Oximetry 97 % 07/29/2024 Blood pressure diastolic 65 mm Hg 07/29/2024 Weight-kg 79.38 kg 07/29/2024 Height 63 in 07/29/2024 Blood pressure systolic 110 mm Hg 07/29/2024 Weight 175.0 lbs 07/29/2024 BMI 31 kg/m2 07/29/2024 Encounters Encounter Location Date Provider Diagnosis [address] [id number] 12/22/2023 Provider Migration Type 2 diabetes mellitus with hypoglycemia without coma E11.649 and Insomnia due to medical condition G47.[address] Zimmerman [address] [place] [phone] 01/21/2024 Kathi Zimmerman Type 2 diabetes mellitus without complications E11.9 ; Hypoglycemia, unspecified E16.2 ; Age-related osteoporosis without current pathological fracture M81.0 ; Hyperlipidemia, unspecified E78.5 ; Obesity, unspecified E66.9 and Dietary counseling and surveillance Z71.[address] Zimmerman [id number] [place] [phone] 05/30/2024 Kathi Zimmerman Type 2 diabetes mellitus without complications E11.9 ; Age-related osteoporosis without current pathological fracture M81.0 ; Dyslipidemia E78.5 ; Hyperparathyroidism, unspecified E21.3 and Dietary counseling and surveillance Z71.[address] Zimmerman [id number] [place] [phone] 07/29/2024 Kathi Zimmerman Other osteoporosis without current pathological fracture M81.8 and Menopausal and female climacteric states N95.[address] Zimmerman [address] [place] [phone] 12/20/[address] Zimmerman [address] [place] [phone] 12/21/2023 Kathi Zimmerman Type 2 diabetes mellitus with hypoglycemia without coma E11.[address] Zimmerman [address] [place], [place] [phone] 01/21/2024 Kathi Zimmerman [address] [place], [place] [phone] 01/22/2024 Kathi Zimmerman [address] [place], [place] [phone] 02/25/2024 Kathi Zimmerman [address] [place], [place] [phone] 03/03/2024 Kathi Zimmerman [address] [place] [phone] 06/02/2024 Kathi Zimmerman [address] [place], [place] [phone] 06/17/2024 Kathi CARRERA [facility] [address] [place] [phone] 06/23/2024 Kathi CARRERA [facility] [address] [place] [phone] 07/07/2024 Kathi CARRERA [facility] [address] [place] [phone] 10/16/2024 Kathi Zimmerman [address] [place] [phone] 10/27/2024 Kathi Zimmerman Assessments Encounter Date Diagnosis (ICD Code) Assessment Notes Treatment Notes Treatment Clinical Notes Section Notes 12/21/2023 Type 2 diabetes mellitus with hypoglycemia without coma (ICD-10 - E11.649) 12/22/2023 Type 2 diabetes mellitus with hypoglycemia without coma (ICD-10 - E11.649) 12/22/2023 Insomnia due to medical condition (ICD-10 - G47.01) 01/21/2024 Type 2 diabetes mellitus without complications (ICD-10 - E11.9) 05/30/2024 Type 2 diabetes mellitus without complications (ICD-10 - E11.9) 05/30/2024 Age-related osteoporosis without current pathological fracture (ICD-10 - M81.0) 07/29/2024 Other osteoporosis without current pathological fracture (ICD-10 - M81.8) Assessment and Plan: 1. Thyroid Dysfunction- Await results of scheduled thyroid biopsy- Monitor swallowing difficulties - Follow up on parathyroid evaluation pending thyroid biopsy results 2. Osteoporosis Requiring Prolia Injection- Administer scheduled injection OSTEOPOROSIS OVERVIEW Osteoporosis is a common problem that causes your bones to become abnormally thin, weakened, and easily broken (fractured). Women are at a higher risk for osteoporosis after menopause due to lower levels of estrogen, a female hormone that helps to maintain bone mass. Fortunately, preventive treatments are available that can help to maintain or increase your bone density. If you have already been diagnosed with osteoporosis, therapies are available that can slow further loss of bone or increase bone density. This topic review discusses the therapies available for the prevention and treatment of osteoporosis. A separate topic discusses bone density testing. OSTEOPOROSIS PREVENTION Some of the most important aspects of preventing osteoporosis include eating a healthy diet, getting regular exercise, and avoiding smoking. These recommendations apply to men and women. Diet - An optimal diet for bone health involves making sure you get enough protein and calories as well as plenty of calcium and vitamin D, which are essential in helping to maintain proper bone formation and density. Calcium intake - Experts recommend that premenopausal women and men consume at least 1000 mg of calcium per day; this includes calcium in foods and beverages plus supplements (eg, pills), which you might need if you don't get enough calcium from your diet. Postmenopausal women should consume 1200 mg of calcium per day (total of diet plus supplements). However, you should not take more than 2000 mg calcium per day, due to the possibility of side effects. The main dietary sources of calcium include milk and other dairy products, such as cottage cheese, yogurt, and hard cheese, and green vegetables, such as kale and broccoli (table 1). A rough method of estimating your dietary calcium intake is to multiply the number of dairy servings you consume each day by 300 mg. Examples of a serving include 8 oz of milk (236 mL) or yogurt (224 g), 1 oz (28 g) of hard cheese, or 16 oz (448 g) of cottage cheese. Vitamin D intake - Experts recommend that men over 70 years and postmenopausal women (ie, women who no longer have monthly periods) consume 800 international units (20 micrograms) of vitamin D each day. This dose appears to reduce bone loss and fracture rate in older women and men who have adequate calcium intake (see 'Calcium intake' above). Although the optimal intake has not been clearly established in premenopausal women or in younger men with osteoporosis, 600 international units (15 micrograms) of vitamin D daily is generally suggested. Alcohol - Drinking a lot of alcohol (more than two drinks a day) can increase your risk of fracture. Exercise - Exercise may decrease fracture risk by improving bone mass in premenopausal women and helping to maintain bone density in women who have been through menopause. Furthermore, exercise can strengthen your muscles, improve your balance, and make you less likely to have a fall that could lead to fracture or other injury. Most experts recommend exercising for at least 30 minutes three times per week. Many different types of exercise, including resistance training (eg, using free weights or resistance bands), jogging, jumping, and walking, are effective. The benefits of exercise are quickly lost if you stop exercising. Finding a regular exercise regimen that you enjoy doing improves your chances of keeping up the habit over the [facility]. Smoking - Avoiding or quitting smoking is strongly recommended for bone health because smoking cigarettes is known to speed bone loss. One study suggested that women who smoke one pack per day throughout adulthood have a 5 to 10 percent reduction in bone density by menopause, resulting in an increased risk of fracture. Avoiding falls - Falling significantly increases the risk of osteoporotic fractures in older adults. Taking measures to prevent falls can decrease the risk of fractures. Such measures may include the following: Providing adequate lighting in all areas inside and around the home, including stairwells and entrance ways. Avoiding walking on slippery surfaces, such as ice or wet or polished floors. Avoiding walking in unfamiliar areas outside. Medications that increase risk - Certain medications can increase bone loss, especially if used at high doses or over a long time. In some cases, you can reduce your risk of osteoporosis by stopping the medication, reducing the dose, or switching to a different medication. Medications that may increase bone loss include the following: Glucocorticoid medications (eg, prednisone) Heparin, an anticoagulant medication used to prevent and treat abnormal blood clotting Certain antiseizure medications (eg, phenytoin, carbamazepine, primidone, and phenobarbital) Aromatase inhibitors for the treatment of breast cancer (eg, letrozole, anastrozole) OSTEOPOROSIS SCREENING Experts suggest screening for osteoporosis for women 65 years and older and for women under 65 who have gone through menopause and have risk factors (such as past fracture, certain medical conditions or medications, or cigarette or alcohol use). Screening involves physical examination, discussion of the person's history, and measurement of bone density through imaging tests. Bone density testing is discussed in more detail separately. OSTEOPOROSIS TREATMENT However, some people who do not meet the above criteria may benefit from a medication to prevent fractures. Your health care provider can talk to you about the risks and benefits and help you make a decision about treatment. Hormone therapy - Hormone therapy with estrogen is not recommended solely for the prevention or treatment of osteoporosis in postmenopausal women. However, women who choose to take estrogen to relieve symptoms of menopause will also have the benefit of a reduction in risk of bone loss and fracture and do not need additional treatment to prevent bone loss. For some postmenopausal women who cannot tolerate any other type of osteoporosis treatment, estrogen therapy may be an option. The risks and benefits of estrogen therapy are discussed in detail separately. Estrogen is an appropriate treatment for prevention of osteoporosis in young women whose ovaries do not make estrogen. This treatment may be given as a skin patch or orally, such as in the form of control pills. MONITORING RESPONSE TO TREATMENT If you take medication to prevent or treat osteoporosis, your doctor will monitor you to see how well it is working. This typically includes measurement of bone mineral density with dual-energy x-ray absorptiometry (DXA). Some people also get blood or urine tests; these can give information about the rate of bone turnover (ie, how quickly old bone is resorbing and new bone is forming). 07/29/2024 Menopausal and female climacteric states (ICD-10 - N95.1) 05/30/2024 Dyslipidemia (ICD-10 - E78.5) 01/21/2024 Hypoglycemia, unspecified (ICD-10 - E16.2) 05/30/2024 Hyperparathyroid ism, unspecified (ICD-10 - E21.3) [...] - Investigate billing and coding issues with [employer] - Obtain updated lab work once billing [...] procedures, referring and communicating with other health animal care attendant, documenting clinical information in the electronic or [...] procedures, referring and communicating with other health animal care attendant, documenting clinical information in the electronic or other health record, independently interpreting results and communicating results to the patient/family/caregiv er and care coordinating patient plan. Patient alert and oriented x 4 and aware of discussion noted above and in agreeance to plan in management of hyperparathyroidism, osteoporosis, dyslipidemia and well controlled type 2 dM/with hypoglycemia, getting eversense placement-CGM showing 85% in range. 07/29/2024 Other Spent 15 minute s preparing to see the patient (ex review of tests/chart), obtaining and / or reviewing separately obtained history, performing a medically appropriate examination and/or evaluation, counseling and educating the patient/family/caregiv er, ordering medications, tests, or procedures, referring and communicating with other health animal care attendant, documenting clinical information in the electronic or other health record, independently interpreting results and communicating results to the patient/family/caregiv er and care coordinating patient plan. Patient alert and oriented x 4 and aware of discussion noted above and in agreeance to plan in management of osteoporosis and concern for hyperparathyroidism. Plan Of Treatment Pending Test Test Name [...] Insured Coverage Start Date Coverage End Date [employer] [address] [address] [place] [address] [id number] Tiffanie Ruiz Self - patient is the insured [employer] [place] [address] [address] [place], [place] [id number] Tiffanie Ruiz Self - patient is the insured Medical (General) History Medical History History ICD Code HYPOGLYCEMIA type 2 DM hypothyroidism osteoporosis Surgical History Surgery Date(Month/Year) gastric bypass
--- OUTSIDE RECORDS SUMMARY | 2024-12-01 11:32 | XMS_ITS | Clinical Summary ---
Author Organization [facility] Address [address] [place] [address] Care Team Providers Care Alteration Inspector Name Role Phone Jona Bravo MD Primary Care Provider [phone] Source Comments [facility],non-owned Affiliates and Associated Physician Practices is amultiple site organization consisting of ambulatory clinics and hospital sitesin [place], [place], [place] and [place]. This disclosure is being madepursuant to the Care Everywhere program and may not contain all information available regarding this patient. Last updated 17.[facility] Allergies Active Allergy Reactions Criticality Noted Date [...] Units/L by mouth once daily Active Biotin 21574 MCG TBDP Take 1 tablet by mouth [...] tablet by mouth once Active nystatin (NYSTOP) 557553 UNIT/GM powder APPLY POWDER TOPICALLY TO AFFECTED [...] 01/15/08: Lap banding by Dr. Claros at [facility] Had a port leak with subsequent revision. [...] Encounters Date Type Department Care Team Description 10/20/[address] [facility] [address], [address] [place] [address] Alayna Lock, RN Returned Call from Last 3 Months Immunizations Immunization Administration [...] PM CDT Legal Sex Female 6:58 AM CREDIT CONTROL CLERK Gender Identity Female 04/25/2020 11:44 PM CDT Sexual Orientation Straight 04/25/2020 11 :44 PM CDT Last Filed Vital Signs Vital Sign Reading Time Taken Comments Blood Pressure 141/71 04/10/2024 9:56 AM CREDIT CONTROL CLERK Pulse 65 04/10/2024 9:56 AM CREDIT CONTROL CLERK Temperature 36.3 C (97.3 F) 04/10/2024 9:56 AM CREDIT CONTROL CLERK Respiratory Rate 18 04/10/2024 9:56 AM CREDIT CONTROL CLERK Oxygen Saturation 98% 06/21/2023 12:44 PM CDT Inhaled Oxygen Concentration - - Weight 84.8 kg (187 lb) 04/10/2024 9:56 AM CREDIT CONTROL CLERK Height 161.3 cm (5' 3.5) 04/10/2024 9:56 AM CREDIT CONTROL CLERK Body Mass Index 32.61 04/10/2024 9:56 AM CREDIT CONTROL CLERK Plan of Treatment Upcoming Encounters Date Type Department Care Team (Late st Contact Info) Description 12/19/2024 12:40 PM CREDIT CONTROL CLERK Office Visit [facility] [address], [address] [place] [address] [place] [address] [facility] [address] [place] [address] 04/13/2025 10:00 AM CDT Procedure visit [facility] - [address] [place] [address] 04/13/2025 10:30 AM CDT Office Visit [facility] - GI [address] [place] [id number] [place] [address] [place] [address] [place] [address] Health Maintenance Due Date Last Done Comments [...] SCREENING 03/21/2018 DIABETES-FOOT EXAM WITH MONOFILAMENT 03/21/2018 DIABETES-HGB A1C 03/21/2018 07/23/2008 Respiratory Syncytial Virus (RSV) Vaccine Pt: or over 60 yrs (1 - Risk 60-74 years 1-dose series) 2019 DIABETES-SERUM CREATININE 06/06/20232022, 08/24/2021, 06/25/2020, Additional history exists DEPRESSION SCREENING 02/06/2024 DIABETES - URINE PROTEIN SCREENING 02/06/2024 MAMMOGRAM 09/08/2024 09/08/2022, 08/0 05/2022, 07/08/2021, Additional history exists COVID-19 VACCINE ( season) 2024 01/08/2023, 10/13/2021, 12/12/2020, Additional history exists INFLUENZA VACCINE (#1) 2024 , 11/14/2019, 10/19/2019, Additional history exists COLON MONITORING 08/03/2025 08/03/2020, [...] 29 U/L QUEST Comment: Test Performed at: [facility] [address] [facility] [place] [address] ARACELY DANIEL MD 06/05/2022 10:4 9 AM CDT 06/05/2022 10:50 AM CDT Ivette Monteior ACTIVITY THERAPY TEACHER-SCALE OPERATOR LAB - CHEMISTRY O RDERABLES Final Result [facility] [address] [place] [address] * ENDOSCOPY, COLON, SCREENING (08/03/2020 9:10 AM [...] entire procedure. Procedure Code(s): --- Professional --- 88646, Colonoscopy, flexible; with biopsy, single or multiple Diagnosis Code(s): --- Professional --- Z86.010, Personal history of colonic polyps K63.5, Polyp of colon K57.30, Diverticulosis of large intestine without perforation or abscess without bleeding CPT copyright 2019 [employer]. All rights reserved. The codes documented in this report are preliminary and upon aircraft engine specialist review may be revised to meet current compliance requirements. Soham Farley MD 08/03/2020 10:38:53 AM This report has been signed electronically. Note Initiated On: 08/03/2020 9:10 AM Number of Addenda: [address] 08/03/2020 9:10 AM CDT us Soham Hutton MD GI PROCEDURE ORDER RYAN Edited Result - Final Performing Organization Address [facility] de Phone Number [facility] * HEMOGLOBIN A1C (07/23/2008 11:32 AM CDT) Hemoglobin A1c 5.7 3.9 - 6.1 % [facility] Estimated Average Glucose 116.9 mg/dl [facility] BLOOD SPECIMEN / Unknown 07/23/2008 11:32 AM CDT Narrative [facility] - 07/23/2008 9:23 PM CDT [id number] Resulting Agency Comment Performed By [facility] - [facility] [address] [place] [address] us Scott Claros MD LAB - CHEMISTRY ORDERABLE S Final Result Performing Organization Address [facility] de Phone Number [facility] [address] [place] [address] from Last 3 Months or Most Recently Relevant to Health Maintenance Insurance SELF PAY NO INSURANCE Member Subscriber Plan / Payer (Ef fective for All Dates) Name:Tiffanie Gresham Member ID:Not on file Relation to Subscriber:Self Name:TIFFANIE GRESHAM Subscriber ID:Not on file Payer ID:Not on file Group ID:Not on file Type:Self Pay Address: [place], [place] MEDICARE [facility] MEDICARE Advance Directives * Full Code (Latest Code Status on File) Date Activated Date Inactivated Comments 06/19/2018 5:17 PM 06/20/2018 8:12 PM * Full Code Date Activated Date Inactivated Comments 12/24/2017 11:20 AM 12/25/2017 12:40 PM Care Teams Alteration Inspector Relationship Specialty Start Date End Date Jona Bravo MD [address] [place] [address] PCP - General Internal Medicine 10/16/22
--- OUTSIDE RECORDS SUMMARY | 2024-12-01 11:32 | XMS_ITS | Clinical Summary ---
Author Organization [facility] Address [facility]ly [facility] [place] [address] Care Team Providers Care Supervisor Mixing Name Role Phone Unavailable Primary Care Provider Unavailabl e Social History Tobacco Use Types Packs/Day Years Used Date Smoking Tobacco: Never Assessed Comments Unknown Sex and Gender Information Value Date Recorded Sex Assigned at Not on file Legal Sex Female 4:08 PM CDT Gender Identity Not on file Sexual Orientation Not on file Plan of Treatment Health Maintenance Due Date Last Done Comments Colorectal Cancer Screening Colonoscopy (10 Years) 1959 Hepatitis C 1977 DTaP, Tdap and Td Vaccines (1 - Tdap) 1978 Mammogram Screening 1999 Pneumococcal Vaccine: 50+ Years (1 of 1 - PCV) 2009 Zoster Vaccines (1 of 2) 2009 Dexa Scan (General) 02/05/2024 COVID-19 Vaccine ( - 2024- season) 2024 Influenza Adult (#1) 2024 02/19/2018, 11/04/2014, 10/23/2013, Additional history exists RSV Immunization or 60+ Years (1 - 1-dose 75+ series) 2034 Hepatitis A Vaccines Aged Out No long er eligible based on patient's age to complete this topic Meningococcal B Vaccine Aged Out No l onger eligible based on patient's age to complete this topic Meningococcal Vaccine Aged Out No mary maikel eligible based on patient's age to complete this topic RSV Immunizations Under 20 Months Aged Out No longer eligible based on patient's age to complete this topic
--- OUTSIDE RECORDS SUMMARY | 2024-12-01 11:32 | XMS_ITS | Encounter Summary ---
Author Organization [facility] Address [address] [place] [address] Care Team Providers Care Vat Washer Name Role Phone Jona Bravo MD Primary Care Provider Reason for Visit * Reason Comments Question Encounter Details Date Type Department Care Team ([facility] st Contact Info) Description 04/23/2023 Telephone [facility] Primary Care [address] [place] [address] Jona Bravo MD [address] [facility] [address] [place] [address] Question Social History Tobacco Use [...] often do you attend chur ch or evangelical services? 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 Topic: Patient or Caregiver Communication Request >> Apr 23, 2023 1:32 PM Adelina Harper wrote: Patient or Caregiver requesting advice Caller: Tiffanie Ruiz Patient/Caregiver Callback Number: [phone] (home) Call Notes: Patient is calling she is needing an orthopedic referral and her referral for Eric Martinez MD is still pending and needs to be faxed to this number. Please advise. Dr Martinez FAX# [phone] documented in this encounter Plan of Treatment Upcoming Encounters Date Type Department Care Team (Late st Contact Info) Description 02/03/2025 10:00 AM INSTRUCTIONAL ASSISTANT Office Visit [facility] [address] [facility] [facility] [place] [address] Tami Thorne PA-C [address] [facility] [address] [place] [phone] 03/04/2025 2:40 PM INSTRUCTIONAL ASSISTANT Office Visit [facility] Primary Care [facility] [address] [facility] [address] [place] [address] Jona Bravo MD [address] [facility] [address] [place] [address] 04/30/2025 10:15 AM CDT Office Visit [facility] Vascular - [facility] [address] [address] [facility] [address] [place] [address] Benjamin Taveras MD [address] [facility] [address] [place] [address] documented as of this encounter Visit Diagnoses Not on filedocumented in this encounter Care Teams Vat Washer Relationship Specialty Start Date End Date Jona Bravo MD PCP - General Internal Medicine 11/25/15 documented as of this encounter
--- OUTSIDE RECORDS SUMMARY | 2024-12-01 11:32 | XMS_ITS | Clinical Summary ---
Author Organization [facility] Address [address] [place] [address] Phone Care Team Providers Care Database Administrator Name Role Phone Jona Bravo MD Primary Care Provider [phone] Active Problems Problem Noted Date Diagnosed Date [...] Cervical Cancer Screening (CCS) 1989 HPV/Cotest 1989 Cologuard 02/05/2004 Colonoscopy 02/05/2004 Colorectal Cancer Screening 02/05/2004 Immunochemical Fecal Occult Blood 02/05/2004 Pneumococcal Immunization (50+ years) (1 of 1 - PCV) 2009 Zoster Immunization (1 of 2) 2009 Influenza Immunization (#1) 10/06/202412/06, 11/04/2014, 10/23/2013, Additional history exists SARS-COV-2 Immunization ( season) 2024 11/19/2020, 04/29/2020, 04/08/2020 Respiratory Syncytial Virus (RSV) [...] age to complete this topic Care Teams Database Administrator Relationship Specialty Start Date End Date Jona Bravo MD [address] [place] [phone] PCP - General 05/04/17
== END 2024-12-01 10:12 | disposition home or self-care (01) ==
PROVIDERS: PCP Internal Medicine; Visit Provider Urology
DX: N20.0 Calculus of kidney (principal)
CPT/HCPCS: 74018